=== PATIENT | female | born 1975 | race Caucasian/White ===

== ENCOUNTER 2016-08-01 00:02 | Inpatient (IN) | payer SELFPAY ==
[~2016-08-01] VITALS: Ht 162.6 cm; Wt 66.3 kg
[2016-08-02] VITALS (9 sets, daily range): BP systolic 88–108; BP diastolic 46–69
[2016-08-02] MEDS: AMINO AC 3%/ELECTROLYTE/GLYCER 1,000 ML IV SCH ×2 (02:50→13:37)
[2016-08-02] MEDS: MORPHINE SULFATE 2 MG/ML DISP.SYRIN. IV PRN ×4 (03:31→11:59)
[2016-08-02 08:39] LABS: HEMATOCRIT 29.3 % (36.0-47.0); HEMOGLOBIN 9.9 g/dL (12.0-15.5); RED BLOOD COUNT 3.35 x10^6/uL (3.50-5.40); RED CELL DISTRIBUTION WIDTH 14.1 % (11.5-14.5); WHITE BLOOD COUNT 22.2 x10^3/uL (4.0-11.0)
[2016-08-02 08:57] LABS: ALBUMIN 1.8 g/dL (3.4-5.0); ALBUMIN/GLOBULIN RATIO 0.4 (1.0-1.7); CALCIUM 7.6 mg/dL (8.5-10.1); CREATININE 1.3 mg/dL (0.6-1.0); GFR 44.9; MAGNESIUM 2.5 mg/dL (1.8-2.4); TOTAL BILIRUBIN 0.9 mg/dL (0.2-1.0); TOTAL PROTEIN 6.2 g/dL (6.4-8.2)
[2016-08-02 09:00] LABS: POTASSIUM 2.6 mmol/L (3.5-5.1)
--- NOTE | 2016-08-02 09:07 | PDOC ---
Infectious Disease Note Vital Sign Vital Signs Vital Signs Date Time Temp Pulse Resp B/P Pulse Ox O2 Delivery O2 Flow Rate FiO2 08/02/16 08:00 Nasal Cannula 2.0 08/02/16 07:30 98.6 105 22 93/54 91 98.6 Labs Lab Laboratory Tests Test 08/02/16 08:20 White Blood Count 22.2x10^3/uL (4.0-11.0) Red Blood Count 3.35x10^6/uL (3.50-5.40) Hemoglobin 9.9g/dL (12.0-15.5) Hematocrit 29.3% (36.0-47.0) Mean Corpuscular Volume 88fL (79-100) Mean Corpuscular Hemoglobin 30pg (25-35) Mean Corpuscular Hemoglobin Concent 34g/dL (31-37) Red Cell Distribution Width 14.1% (11.5-14.5) Platelet Count 18x10^3/uL (140-400) Sodium Level 126mmol/L (136-145) Potassium Level 2.6mmol/L (3.5-5.1) Chloride Level 93mmol/L (98-107) Carbon Dioxide Level 24mmol/L (21-32) Anion Gap 9 (6-14) Blood Urea Nitrogen 59mg/dL (7-20) Creatinine 1.3mg/dL (0.6-1.0) Estimated GFR (Cockcroft-Gault) 44.9 BUN/Creatinine Ratio 45 (6-20) Glucose Level 122mg/dL (70-99) Calcium Level 7.6mg/dL (8.5-10.1) Magnesium Level 2.5mg/dL (1.8-2.4) Total Bilirubin 0.9mg/dL (0.2-1.0) Aspartate Amino Transf (AST/SGOT) 64U/L (15-37) Alanine Aminotransferase (ALT/SGPT) 46U/L (14-59) Alkaline Phosphatase 204U/L (46-116) Total Protein 6.2g/dL (6.4-8.2) Albumin 1.8g/dL (3.4-5.0) Albumin/Globulin Ratio 0.4 (1.0-1.7) Objective Assessment Rt sided endocarditis Plan Plan of Care pt seen, consult dictated, thanks MARSHA MORFIN MD Aug 02, 2016 09:07
[2016-08-02] MEDS ORDERED: NORMAL SALINE IV SCH (09:15)
[2016-08-02] MEDS ORDERED: DAPTOMYCIN IV SCH (09:15)
[2016-08-02] MEDS ORDERED: POTASSIUM CHLORIDE 20 MEQ TABLET.ER. PO ONE ×3 (09:45→17:15)
[2016-08-02] MEDS ORDERED: DAPTOMYCIN IV ONE (10:00)
[2016-08-02] MEDS ORDERED: NORMAL SALINE IV ONE (10:00)
[2016-08-02] MEDS: CEFEPIME HCL 1 GM in IV NORMAL SALINE 50ML 50 ML IV SCH ×2 (10:17→21:05)
[2016-08-02] MEDS: DAPTOMYCIN IV SCH (11:11)
[2016-08-02] MEDS: NORMAL SALINE IV SCH (11:11)
[2016-08-02] MEDS: MORPHINE SULFATE 10 MG/ML VIAL. IV PRN ×4 (13:37→21:29)
--- NOTE | 2016-08-02 16:45 | HP ---
ADMIT DATE: 08/02/2016 CHIEF COMPLAINT: Sepsis. HISTORY OF PRESENT ILLNESS: The patient is a 41-year-old woman who is a chronic IV drug abuser with Opana, who presented to the hospital on the urging of her family with feeling poorly, as she herself states she felt as if she was going to . She has severe pain in her chest with breathing and has abdominal pain. She relates she had diarrhea last week when she started feeling poorly. Her family is concerned that she is getting weaker and weaker, unable to walk in the past few days. The patient had subjective fever and chills for several days now. Unable to eat. Denies any nausea or vomiting. PAST MEDICAL HISTORY: Essentially, none. Has not seen physicians in years. FAMILY HISTORY: Noncontributory. SOCIAL HISTORY: She is . Smokes a pack a day. Denies any alcohol use. Positive for heroin as well as Opana. ALLERGIES: No known drug allergies. HOME MEDICATIONS: None. REVIEW OF SYSTEMS: Positive as per HPI. The patient has generalized malaise, myalgias, arthralgias. Denies any headaches or neurological issues. Denies any sore throat. Has respirophasic chest pain, severe throughout. Denies any palpitations. No nausea, vomiting. Does have diffuse abdominal pain. No dysuria. PHYSICAL EXAMINATION: VITAL SIGNS: From today show a blood pressure of 92/54, heart rate of 96, respiratory rate at 20. She is currently afebrile. GENERAL: This is a malnourished, ill-appearing, 41-year-old woman, awake, alert, in moderate distress. HEENT: Shows no scleral icterus. NECK: Supple. LUNGS: Actually, clear throughout. HEART: Tachycardic. ABDOMEN: Mildly distended, soft, tenderness to palpation throughout, mildly. EXTREMITIES: Show no edema. SKIN: Warm, soft and dry without any rash. LABORATORY DATA: Noted from [facility]: WBC of 20.4, hemoglobin 11.3, platelets of 19, 85% neutrophils. Toxic granulation present. Urine shows greater than 40 wbcs', nitrite negative. Chemistries with BUN and creatinine of 76 and 2.5. Electrolytes with sodium of 122, potassium 2.9, CO2 of 24. LFTs within normal. CK at 717 and lipase at 121. C-reactive protein at 194. Drug screen actually negative including opiates. RADIOGRAPHIC IMAGING: A CT of the abdomen and pelvis is significant for consolidation and ground-glass opacity in the posterior right lobe, multiple hard solid pulmonary nodules consistent with atypical pneumonia versus septic emboli. Abdomen actually had no significant finding, although hampered by lack of IV or p.o. contrast. ASSESSMENT AND PLAN: The patient is a 41-year-old IV drug abuser who presents with a picture of sepsis. A CT highly suspicious for septic emboli. We will obtain echocardiogram JOSE L. ID has been consulted. She has been started on broad-spectrum antibiotics. For hypotension, IV fluids will be administered. Electrolytes are being addressed as well with repletion of sodium and potassium. We will continue to monitor closely. Leukocytosis is consistent with infection, continue monitoring here as well. I suspect that her hemoglobin actually is lower at baseline and she appears hemoconcentrated currently. Worrisome is her thrombocytopenia, which is close to critical at currently 18. Continue to monitor. Suspect this is secondary to her infection. Currently, she has no signs of bleeding diathesis. We will monitor DIC screen as well. She does have significant chest pain, most likely related due to her pulmonary disease. With heroin and Opana abuse, suspect it will take significant amounts to get her comfortable. Nevertheless, this is indicated at the current time. We will try and wean JOSE L. Prophylaxis with heparin and/or Lovenox will be held secondary to the platelet count. She also has acute kidney injury, which I suspect is secondary to dehydration. We will monitor closely with IV hydration. JUANITO PRETTY MD DR: ELIZABETH/brian JOB#: [id number] / [id number] THERESA
--- NOTE | 2016-08-02 17:44 | CARD ---
APPROVED REPORT EXAM: Two-dimensional and M-mode echocardiogram with Doppler and color Doppler. Other Information Quality : GoodHR: 97bpm Rhythm : NSR INDICATION Endocarditis 2D DIMENSIONS RVDd3.2 (2.9-3.5cm)Left Atrium(2D)2.4 (1.6-4.0cm) IVSd0.7 (0.7-1.1cm)Aortic Root(2D)3.5 (2.0-3.7cm) LVDd4.8 (3.9-5.9cm)LVOT Diameter2.2 (1.8-2.4cm) PWd0.7 (0.7-1.1cm)LVDs3.4 (2.5-4.0cm) FS (%) 28.5 %SV58.0 ml LVEF(%)54.8 (>50%) Aortic Valve AoV Peak Andrew.140.5cm/sAoV VTI16.9cm AO Peak GR.7.9mmHgLVOT Peak Andrew.117.5cm/s AO Mean GR.4mmHgAVA (VMAX)3.13cm2 Mitral Valve MV E Mophktsp39.0cm/sMV DECEL [id number] MV A Vgjwuarc18.3cm/sE/A Ratio1.3 MV A [id number] Pulmonary Valve PV Peak Ikpivddo994.9cm/s Tricuspid Valve TR P. Rhcxptzp092wo/sTR Peak Gr.32mmHg Pulmonary Vein S1 Fafvfatv94.6cm/sD2 Bavcpieo53.1cm/s LEFT VENTRICLE The left ventricle is normal size. There is normal left ventricular wall thickness. The left ventricu lar systolic function is mildly decreased. The Ejection Fraction is estimated at 45%. There is mild g lobal hypokinesis of the left ventricle. The left ventricular diastolic function and filling is che l for age. RIGHT VENTRICLE The right ventricle is normal size. There is normal right ventricular wall thickness. The right ventr icular systolic function is normal. There is a mass suspected in the right ventricle. ATRIA The left atrium size is normal. The right atrium is borderline dilated. The interatrial septum is int act with no evidence for an atrial septal defect or patent foramen ovale as noted on 2-D or Doppler i maging. AORTIC VALVE The aortic valve is mildly thickened. The aortic valve is trileaflet. Doppler and Color Flow revealed no significant aortic regurgitation. There is no significant aortic valvular stenosis. MITRAL VALVE The mitral valve leaflets are thickened. There is no evidence of mitral valve prolapse or vegetation. There is no mitral valve stenosis. Doppler and Color Flow revealed trace mitral valve regurgitation. TRICUSPID VALVE Doppler and Color Flow revealed mild to moderate tricuspid regurgitation. The pulmonary artery systol ic pressure is estimated at 30-40 mmHg. There is a 3.0 X2.0 cm. mobile mass on the tricuspid valve w hich partially protrudes into the right ventricle. PULMONIC VALVE Doppler and Color Flow revealed trace pulmonic valvular regurgitation. There is no pulmonic valvular stenosis. GREAT VESSELS The aortic root is normal in size. The ascending aorta is normal in size. The pulmonary artery is nor mal. The IVC is normal in size and collapses >50% with inspiration. PERICARDIAL EFFUSION There is no evidence of significant pericardial effusion. Critical Notification Physician Notified Physician Name:Ann Critical Value: Yes <Conclusion> The left ventricle is normal size. The left ventricular systolic function is mildly decreased. The Ejection Fraction is estimated at 45%. There is mild global hypokinesis of the left ventricle. There is no significant aortic valvular stenosis. Doppler and Color Flow revealed no significant aortic regurgitation. Doppler and Color Flow revealed trace mitral valve regurgitation. There is a 3.0 X2.0 cm. mobile mass on the tricuspid valve which partially protrudes into the right ventricle. Doppler and Color Flow revealed mild to moderate tricuspid regurgitation. The pulmonary artery systolic pressure is estimated at 30-40 mmHg. Doppler and Color Flow revealed trace pulmonic valvular regurgitation.
[2016-08-02 21:10] LABS: HCO3 ABG 21 mmol/L (21-28); PCO2 ABG 30 mmHg (35-46); PH ABG 7.46 (7.35-7.45); PO2 ABG 64 mmHg (75-108); SAT O2 ABG 92 % (92-99)
[2016-08-02 21:13] LABS: FIO2 ABG 40
[2016-08-02] MEDS ORDERED: MORPHINE SULFATE 10 MG/ML VIAL. IV ONE (21:30)
[2016-08-03] VITALS (25 sets, daily range): BP systolic 90–126; BP diastolic 48–74
[2016-08-03] MEDS: AMINO AC 3%/ELECTROLYTE/GLYCER 1,000 ML IV SCH ×4 (01:36→23:33)
[2016-08-03] MEDS: ACETAMINOPHEN 650 MG SUPP.RECT. PR PRN ×3 (01:39→23:33)
[2016-08-03] MEDS: MORPHINE SULFATE 10 MG/ML VIAL. IV PRN ×5 (01:49→20:32)
--- NOTE | 2016-08-03 02:56 | CONS ---
DATE OF CONSULTATION: 08/02/2016 REQUESTING PHYSICIAN: Tito Franz DO. REASON FOR CONSULTATION: IV drug use and bilateral pulmonary infiltrate. HISTORY OF PRESENT ILLNESS: This is a 41-year-old female with no significant past medical history who was doing IV pain medication, synthetic morphine, who presented with a 3-day history of not feeling well, weakness, fever, body ache. Patient went to [place] and was transferred here. The patient had initial workup done there, which showed elevated WBC elevated creatinine, low platelets and CT scan of the chest, abdomen and pelvis showed multiple pulmonary nodules. Cultures have been taken. The patient is complaining of pain all over. No nausea, vomiting, diarrhea noted. Denies any headache, visual symptoms. PAST MEDICAL HISTORY: She says no other significant history. SOCIAL HISTORY: Positive for smoking. No alcohol use. The patient uses synthetic morphine IV since January. ALLERGIES: No known drug allergies. CURRENT MEDICATIONS: The patient has been given a dose of vancomycin at [place]. REVIEW OF SYSTEMS: As per HPI. All other systems reviewed are negative. PHYSICAL EXAMINATION: GENERAL: Alert, oriented female, not in any distress. VITAL SIGNS: Stable, afebrile. HEENT: NAD. NECK: Supple, no JVP, no lymphadenopathy. LUNGS: Clear. CARDIOVASCULAR: S1, S2 regular. ABDOMEN: Benign. EXTREMITIES: Mild pitting edema present. NEUROLOGIC: The patient is neurologically intact. SKIN: Multiple IV drug use areas present. There are no peripheral stigmata for endocarditis. LABORATORY DATA: White count is 22,000. BUN and creatinine here is pending, from 11 where they were high [address] scan of the chest, abdomen and pelvis showed multiple pulmonary nodules. IMPRESSION: 1. IV drug use. 2. Right-sided bacterial endocarditis suspected. 3. Multiple pulmonary nodules. 4. Renal insufficiency. 5. Severe thrombocytopenia. 6. Leukocytosis. RECOMMENDATIONS: Would use daptomycin and cefepime. Supportive care. Check the blood cultures and the patient will need NIDIA and will continue to follow. Thank you very much, Dr. Franz for giving me the opportunity to participate in this patient's care. MARSHA MORFIN MD DR: SCOTT/brian JOB#: [id number] / [id number]
[2016-08-03 05:48] LABS: BASO % 0 % (0-3); EOS % 0 % (0-3); HEMATOCRIT 29.3 % (36.0-47.0); HEMOGLOBIN 9.7 g/dL (12.0-15.5); LYMPH # 1.2 x10^3/uL (1.0-4.8); LYMPH % 6 % (24-48); MEAN CORPUSCULAR HEMOGLOBIN 29 pg (25-35); MEAN CORPUSCULAR HGB CONC 33 g/dL (31-37); MEAN CORPUSCULAR VOLUME 89 fL (79-100); MONO % 12 % (0-9); NEUT % 82 % (31-73); RED BLOOD COUNT 3.31 x10^6/uL (3.50-5.40); RED CELL DISTRIBUTION WIDTH 14.1 % (11.5-14.5); WHITE BLOOD COUNT 19.1 x10^3/uL (4.0-11.0)
[2016-08-03 05:50] LABS: PLATELET COUNT 18 x10^3/uL (140-400)
[2016-08-03 06:01] LABS: CREATININE 0.9 mg/dL (0.6-1.0); GFR 68.7; POTASSIUM 4.7 mmol/L (3.5-5.1)
--- NOTE | 2016-08-03 07:57 | PDOC ---
Provider Note Provider Note [id number] acute resp fail endocarditis septic emboli babcock cytopenia bipap abx bronchodilator see orders JUAN ADDISON MD Aug 03, 2016 07:57
[2016-08-03] MEDS ORDERED: PANTOPRAZOLE IV PUSH 40 MG VIAL. IVP ONE (08:00)
[2016-08-03] MEDS ORDERED: POTASSIUM CHLORIDE 10 MEQ TABLET.ER. PO SCH (08:00)
[2016-08-03] MEDS: BUDESONIDE 0.5 MG/2 ML NEBU. NEB SCH ×2 (08:00→20:14)
--- NOTE | 2016-08-03 09:09 | CONS ---
DATE OF CONSULTATION: 08/03/2016 I was asked to see this 41-year-old lady for acute respiratory failure. HISTORY OF PRESENT ILLNESS: The patient is on BiPAP and appears tachypneic, answers some of my questions. She has significant history of IV drug abuse. Recently she had been on synthetic morphine. She does smoke daily. She has had 3 days history of not feeling well and has had weakness, fever, body ache, went to [place] and was transferred here. CT of the chest, abdomen and pelvis done there which did show multiple pulmonary nodules. The patient appears tachypneic. She denies chest pain, has cough. She is on BiPAP. PAST MEDICAL HISTORY: IV drug abuse. SOCIAL HISTORY: Positive for smoking. The patient has been using IV synthetic morphine. ALLERGIES: No known drug allergies. MEDICATIONS: Currently she is on cefepime, IV fluids, morphine, daptomycin. FAMILY HISTORY: Positive for hypertension. REVIEW OF SYSTEMS: As mentioned as above. I have discussed the patient with RN other systems otherwise negative. PHYSICAL EXAMINATION: GENERAL: This is a chronically ill appearing lady. She appears tachypneic. VITAL SIGNS: Her O2 saturation on 40%. The BiPAP is 98%, respiratory rate 24, heart rate 91, blood pressure 98/65, temperature 98.4. HEENT: Normocephalic, atraumatic. Pupils equal, round, reactive to light. She has a full face BiPAP mask on. NECK: There is no JVD, lymphadenopathy or thyromegaly. CARDIOVASCULAR: Regular rate and rhythm, positive for murmur. PMI is not displaced. She appears tachypneic. LUNGS: Bibasilar crackles, end expiratory wheezing. ABDOMEN: Distended. Bowel sounds are diminished. EXTREMITIES: There is no edema. LYMPHATICS: There is no lymphadenopathy. SKIN: Multiple IV drug use areas present. NEUROLOGIC: She is confused. LABORATORY DATA: I reviewed the following lab data: CT of the chest reportedly showed bilateral pulmonary nodule. ABG: pH 7.46, pCO2 of 30, pO2 64 on 40% FIO2. Sodium 129, potassium 4.7, chloride 99, CO2 of 23. Glucose 122. BUN 42. Creatinine 0.9, AST 64, ALT 46, alkaline phosphatase 204. Albumin 1.8. WBC 19.1, hemoglobin 9.7, platelets 18, HIV is negative. Echocardiogram did show ejection fracture of 45%, trace mitral regurgitation, 3.2 cm mass on tricuspid valve, partially protrude in to the right ventricle, pulmonary artery systolic pressure of 30-40 IMPRESSION: 1. Acute hypoxemic respiratory failure, multifactorial in etiology. 2. Abnormal CT of the chest. 3. Bilateral pulmonary nodule, I suspect it is septic emboli. 4. Endocarditis. 5. Acute bronchospasm ? chronic obstructive pulmonary disease. 6. Leukocytosis. 7. Anemia. 8. Thrombocytopenia. 9. Hyponatremia. 10. Intravenous drug abuse. 11. Tobacco habituation. PLAN AND RECOMMENDATIONS: 1. Titrate FiO2 to keep O2 saturation 92%. 2. Continue BiPAP support until the patient is more stable, setting was reviewed. 3. Start bronchodilator. 4. Start Pulmicort. She may require systemic steroid. 5. Continue antibiotic. ID is on the case. 6. Cardiology is consulted. 7. Protonix for stress ulcer prophylaxis. I do recommend hematology consultation for pancytopenia, 8. No need for anticoagulation. 9. Obtain her CT from [facility]. 10. Chest x-ray. 11. Monitor respiratory status very closely in ICU. She may require intubation. 12. Elevate head of bed. 13. The findings and recommendations were discussed with the patient, RN and RT. Thank you very much for allowing me to participate in care of this very nice lady. JUAN ADDISON M.D. YAYA Pascual JOB#: [id number] / [id number] THERESA
--- NOTE | 2016-08-03 09:22 | PDOC ---
Infectious Disease Note Subjective Subjective Transferred to MICU for respiratory distress On BiPAP. FiO2 40% Fever Tmax 102.6 Denies SOA or chest pain ROS ROS limited Vital Sign Vital Signs Vital Signs Date Time Temp Pulse Resp B/P Pulse Ox O2 Delivery O2 Flow Rate FiO2 08/03/16 06:00 91 22 98/55 99 BiPAP/CPAP 08/03/16 04:00 98.4 98.4 08/02/16 21:45 15.0 Physical Exam PHYSICAL EXAM GENERAL: On BiPAP, calm HEENT: PERRL, normal conjunctivae NECK: Supple LUNGS: Clear, tachypneic HEART: S1S2, no murmur appreciated ABD: Distended, soft, NT : [place] EXT: BLE trace edema. PRODUCT ANALYST: Arouses easily to name, lethargic SKIN: No rash. multiple tattoos IV: ok Labs Lab Laboratory Tests Test 08/02/16 14:10 08/02/16 20:21 08/03/16 05:15 08/03/16 07:25 Potassium Level 3.0mmol/L (3.5-5.1) 4.7mmol/L (3.5-5.1) O2 Saturation 92% (92-99) Arterial Blood pH 7.46 (7.35-7.45) Arterial Blood pCO2 at Patient Temp 30mmHg (35-46) Arterial Blood pO2 at Patient Temp 64mmHg (75-108) Arterial Blood HCO3 21mmol/L (21-28) Arterial Blood Base Excess -2mmol/L (-3-3) FiO2 40 White Blood Count 19.1x10^3/uL (4.0-11.0) Red Blood Count 3.31x10^6/uL (3.50-5.40) Hemoglobin 9.7g/dL (12.0-15.5) Hematocrit 29.3% (36.0-47.0) Mean Corpuscular Volume 89fL (79-100) Mean Corpuscular Hemoglobin 29pg (25-35) Mean Corpuscular Hemoglobin Concent 33g/dL (31-37) Red Cell Distribution Width 14.1% (11.5-14.5) Platelet Count 18x10^3/uL (140-400) Neutrophils (%) (Auto) 82% (31-73) Lymphocytes (%) (Auto) 6% (24-48) Monocytes (%) (Auto) 12% (0-9) Eosinophils (%) (Auto) 0% (0-3) Basophils (%) (Auto) 0% (0-3) Neutrophils # (Auto) 15.6x10^3uL (1.8-7.7) Lymphocytes # (Auto) 1.2x10^3/uL (1.0-4.8) Monocytes # (Auto) 2.3x10^3/uL (0.0-1.1) Eosinophils # (Auto) 0.0x10^3/uL (0.0-0.7) Basophils # (Auto) 0.0x10^3/uL (0.0-0.2) Sodium Level 129mmol/L (136-145) Chloride Level 99mmol/L (98-107) Carbon Dioxide Level 23mmol/L (21-32) Anion Gap 7 (6-14) Blood Urea Nitrogen 42mg/dL (7-20) Creatinine 0.9mg/dL (0.6-1.0) Estimated GFR (Cockcroft-Gault) 68.7 Glucose Level 122mg/dL (70-99) Calcium Level 8.0mg/dL (8.5-10.1) Glucose (Fingerstick) 120mg/dL (70-99) TTE <Conclusion> The left ventricle is normal size. The left ventricular systolic function is mildly decreased. The Ejection Fraction is estimated at 45%. There is mild global hypokinesis of the left ventricle. There is no significant aortic valvular stenosis. Doppler and Color Flow revealed no significant aortic regurgitation. Doppler and Color Flow revealed trace mitral valve regurgitation. There is a 3.0 X2.0 cm. mobile mass on the tricuspid valve which partially protrudes into the right ventricle. Doppler and Color Flow revealed mild to moderate tricuspid regurgitation. The pulmonary artery systolic pressure is estimated at 30-40 mmHg. Doppler and Color Flow revealed trace pulmonic valvular regurgitation. Micro BC NGTD, 08/01 ([facility]-per micro) Objective Assessment IV drug use. Right-sided bacterial endocarditis. -TTE. 3.0 x 2.0cm mobile mass TV -BC NGTD, 08/01 ([facility]). Multiple pulmonary nodules Renal insufficiency. Severe thrombocytopenia. Leukocytosis. Fever. Hepatosplenomegaly on CT Plan Plan of Care Dapto and cefepime BC discussed with [facility] lab. copy requested F/u trivedi labs & cultures KUB Hepatitis panel May need NGT Attending Co-Sign Attending Co-Sign The patient was seen and interviewed as well as examined at the bedside. The chart was reviewed. The case was discussed. Agree with the plan of care. JAZMIN SOUSA APRN Aug 03, 2016 09:22 KAYLYNN SHAY MD Aug 03, 2016 11:45
[2016-08-03] MEDS: NORMAL SALINE IV SCH (09:43)
[2016-08-03] MEDS: DAPTOMYCIN IV SCH (09:43)
[2016-08-03] MEDS: CEFEPIME HCL 1 GM in IV NORMAL SALINE 50ML 50 ML IV SCH ×2 (10:04→21:24)
--- NOTE | 2016-08-03 10:11 | ACF ---
Admit Criteria Forms Admit Criteria Forms Admit Criteria Forms SEPSIS and OTHER FEBRILE ILLNESS, W/O FOCAL INFECTION Clinical Indications for Admission to Inpatient Care ( Place 'X' for any and all applicable criteria): Admission is indicated for ANY ONE of the following (1)(2)(3)(4): [ ] I. Bacteremia [ ]II. Suspected or identified specific infection requiring hospitalization (eg, meningitis, endocarditis) [ ]III. Hemodynamic instability [ ]IV. Altered mental status [ ]V. Failure or unavailability of outpatient antimicrobial treatment [ ]. Hypoxemia [ ]VII. Seizures [ ]VIII. High-risk febrile neutropenia [ ]IX. Need for parenteral antibiotic in patient who is likely to abuse vascular access device (eg, injection drug user) [A](7) [ ]X. Temperature greater than 104.9 degrees F (40.5 degrees C) (oral) [X]XI. Inpatient admission required rather than observation care because of ANY ONE of the following: [ ]1) Specific infection identified that is too severe for outpatient treatment or observation care trial [X]2) Metabolic disorder (eg, hypoglycemia, hyperglycemia, metabolic acidosis) that is severe or persistent [ ]3) Temperature greater than 103.1 degrees F (39.5 degrees C) ( oral) that is not responsive to observation care treatment [ ]4) IV fluid to replace significant ongoing (eg, for over 24 hours) losses (> 3 L/m2 per day) [ ]5) Supplemental oxygen or respiratory treatments for over 24 hours that is performable only in acute inpatient setting [ ]6) Parenteral nutrition regimen need that must be implemented on inpatient basis [ ]7) Strict or protective (eg, laminar flow) isolation [X]8) Other condition, treatment or monitoring requiring inpatient admission Extended stay beyond goal length of stay may be needed for(1)(3) [ ]a) Sepsis or septic shock(22) [ ]b) Positive blood cultures [ ]c) Insufficient oral intake [ ]d) High-risk febrile neutropenia(29)(30) [ ]e) Continued fever and clinical instability [ ]f) Clinically active comorbid illness (e.g,heart failure, renal failure , diabetes) The original [email or web address] content created by [employer] has been revised. The portions of the content which have been revised are identified through the use of italic text or in bold, and [facility] has neither reviewed nor approved the modified material. All other unmodified content is copyright [facility]. Please see references footnoted in the original [facility] edition 2016 BARAK VALIENTE Aug 03, 2016 10:11
[2016-08-03 10:24] LABS: HCO3 ABG 22 mmol/L (21-28); PCO2 ABG 36 mmHg (35-46); PH ABG 7.42 (7.35-7.45); PO2 ABG 89 mmHg (75-108); SAT O2 ABG 96 % (92-99)
[2016-08-03] MEDS ORDERED: NORMAL SALINE IV SCH (11:00)
[2016-08-03] MEDS ORDERED: DAPTOMYCIN IV SCH (11:00)
[2016-08-03 11:03] LABS: FIO2 ABG 35
--- NOTE | 2016-08-03 11:06 | PDOC ---
PROGRESS NOTES Chief Complaint Chief Complaint Sepsis ASSESSMENT AND PLAN: 1. Sepsis/endocarditis: initial blood cultures NGTD, but tricuspid valve vegetation on echo. on empiric Abx as per ID service 2. Pneumonia: septic emboli bilat, with worsening oxygenation O/N, prompting transfer to ICU, on BiPAP. tenuous but stabilizing. wean as chela 3. Hyponatremia: cont repletion w/IVF 4. Leukocytosis: 2/2 infect. monitor 5. Thrombocytopenia: critical, no signs of bleed. monitor, transfuse for plts <10 6. Prophylaxis: hold anticoag with low plts CC: 30 min Vitals Vitals Vital Signs Date Time Temp Pulse Resp B/P Pulse Ox O2 Delivery O2 Flow Rate FiO2 08/03/16 09:45 37 100 BiPAP/CPAP 40.0 08/03/16 09:00 96 105/62 08/03/16 08:00 98.9 98.9 Physical Exam General: Alert, Cooperative, mild distress (fighting bipap) Heart: Other (tachy) Abdomen: Normal bowel sounds, No tenderness Extremities: No edema Skin: No rashes Labs LABS Laboratory Tests Test 08/02/16 14:10 08/02/16 20:21 08/03/16 05:15 08/03/16 07:25 Potassium Level 3.0mmol/L (3.5-5.1) 4.7mmol/L (3.5-5.1) O2 Saturation 92% (92-99) Arterial Blood pH 7.46 (7.35-7.45) Arterial Blood pCO2 at Patient Temp 30mmHg (35-46) Arterial Blood pO2 at Patient Temp 64mmHg (75-108) Arterial Blood HCO3 21mmol/L (21-28) Arterial Blood Base Excess -2mmol/L (-3-3) FiO2 40 White Blood Count 19.1x10^3/uL (4.0-11.0) Red Blood Count 3.31x10^6/uL (3.50-5.40) Hemoglobin 9.7g/dL (12.0-15.5) Hematocrit 29.3% (36.0-47.0) Mean Corpuscular Volume 89fL (79-100) Mean Corpuscular Hemoglobin 29pg (25-35) Mean Corpuscular Hemoglobin Concent 33g/dL (31-37) Red Cell Distribution Width 14.1% (11.5-14.5) Platelet Count 18x10^3/uL (140-400) Neutrophils (%) (Auto) 82% (31-73) Lymphocytes (%) (Auto) 6% (24-48) Monocytes (%) (Auto) 12% (0-9) Eosinophils (%) (Auto) 0% (0-3) Basophils (%) (Auto) 0% (0-3) Neutrophils # (Auto) 15.6x10^3uL (1.8-7.7) Lymphocytes # (Auto) 1.2x10^3/uL (1.0-4.8) Monocytes # (Auto) 2.3x10^3/uL (0.0-1.1) Eosinophils # (Auto) 0.0x10^3/uL (0.0-0.7) Basophils # (Auto) 0.0x10^3/uL (0.0-0.2) Sodium Level 129mmol/L (136-145) Chloride Level 99mmol/L (98-107) Carbon Dioxide Level 23mmol/L (21-32) Anion Gap 7 (6-14) Blood Urea Nitrogen 42mg/dL (7-20) Creatinine 0.9mg/dL (0.6-1.0) Estimated GFR (Cockcroft-Gault) 68.7 Glucose Level 122mg/dL (70-99) Calcium Level 8.0mg/dL (8.5-10.1) Glucose (Fingerstick) 120mg/dL (70-99) Review of Systems Review of Systems feels better, but has difficulty with BiPAP Comment Review of Relevant I have reviewed the following items shanta (where applicable) has been applied. Labs Laboratory Tests Test 08/02/16 08:20 08/02/16 14:10 08/02/16 20:21 08/03/16 05:15 White Blood Count 22.2x10^3/uL (4.0-11.0) 19.1x10^3/uL (4.0-11.0) Red Blood Count 3.35x10^6/uL (3.50-5.40) 3.31x10^6/uL (3.50-5.40) Hemoglobin 9.9g/dL (12.0-15.5) 9.7g/dL (12.0-15.5) Hematocrit 29.3% (36.0-47.0) 29.3% (36.0-47.0) Mean Corpuscular Volume 88fL (79-100) 89fL (79-100) Mean Corpuscular Hemoglobin 30pg (25-35) 29pg (25-35) Mean Corpuscular Hemoglobin Concent 34g/dL (31-37) 33g/dL (31-37) Red Cell Distribution Width 14.1% (11.5-14.5) 14.1% (11.5-14.5) Platelet Count 18x10^3/uL (140-400) 18x10^3/uL (140-400) Sodium Level 126mmol/L (136-145) 129mmol/L (136-145) Potassium Level 2.6mmol/L (3.5-5.1) 3.0mmol/L (3.5-5.1) 4.7mmol/L (3.5-5.1) Chloride Level 93mmol/L (98-107) 99mmol/L (98-107) Carbon Dioxide Level 24mmol/L (21-32) 23mmol/L (21-32) Anion Gap 9 (6-14) 7 (6-14) Blood Urea Nitrogen 59mg/dL (7-20) 42mg/dL (7-20) Creatinine 1.3mg/dL (0.6-1.0) 0.9mg/dL (0.6-1.0) Estimated GFR (Cockcroft-Gault) 44.9 68.7 BUN/Creatinine Ratio 45 (6-20) Glucose Level 122mg/dL (70-99) 122mg/dL (70-99) Calcium Level 7.6mg/dL (8.5-10.1) 8.0mg/dL (8.5-10.1) Magnesium Level 2.5mg/dL (1.8-2.4) Total Bilirubin 0.9mg/dL (0.2-1.0) Aspartate Amino Transf (AST/SGOT) 64U/L (15-37) Alanine Aminotransferase (ALT/SGPT) 46U/L (14-59) Alkaline Phosphatase 204U/L (46-116) Total Protein 6.2g/dL (6.4-8.2) Albumin 1.8g/dL (3.4-5.0) Albumin/Globulin Ratio 0.4 (1.0-1.7) HIV-1 Antibody Non reactive (Non Reactive) O2 Saturation 92% (92-99) Arterial Blood pH 7.46 (7.35-7.45) Arterial Blood pCO2 at Patient Temp 30mmHg (35-46) Arterial Blood pO2 at Patient Temp 64mmHg (75-108) Arterial Blood HCO3 21mmol/L (21-28) Arterial Blood Base Excess -2mmol/L (-3-3) FiO2 40 Neutrophils (%) (Auto) 82% (31-73) Lymphocytes (%) (Auto) 6% (24-48) Monocytes (%) (Auto) 12% (0-9) Eosinophils (%) (Auto) 0% (0-3) Basophils (%) (Auto) 0% (0-3) Neutrophils # (Auto) 15.6x10^3uL (1.8-7.7) Lymphocytes # (Auto) 1.2x10^3/uL (1.0-4.8) Monocytes # (Auto) 2.3x10^3/uL (0.0-1.1) Eosinophils # (Auto) 0.0x10^3/uL (0.0-0.7) Basophils # (Auto) 0.0x10^3/uL (0.0-0.2) Test 08/03/16 07:25 Glucose (Fingerstick) 120mg/dL (70-99) Laboratory Tests Test 08/02/16 14:10 08/02/16 20:21 08/03/16 05:15 08/03/16 07:25 Potassium Level 3.0mmol/L (3.5-5.1) 4.7mmol/L (3.5-5.1) O2 Saturation 92% (92-99) Arterial Blood pH 7.46 (7.35-7.45) Arterial Blood pCO2 at Patient Temp 30mmHg (35-46) Arterial Blood pO2 at Patient Temp 64mmHg (75-108) Arterial Blood HCO3 21mmol/L (21-28) Arterial Blood Base Excess -2mmol/L (-3-3) FiO2 40 White Blood Count 19.1x10^3/uL (4.0-11.0) Red Blood Count 3.31x10^6/uL (3.50-5.40) Hemoglobin 9.7g/dL (12.0-15.5) Hematocrit 29.3% (36.0-47.0) Mean Corpuscular Volume 89fL (79-100) Mean Corpuscular Hemoglobin 29pg (25-35) Mean Corpuscular Hemoglobin Concent 33g/dL (31-37) Red Cell Distribution Width 14.1% (11.5-14.5) Platelet Count 18x10^3/uL (140-400) Neutrophils (%) (Auto) 82% (31-73) Lymphocytes (%) (Auto) 6% (24-48) Monocytes (%) (Auto) 12% (0-9) Eosinophils (%) (Auto) 0% (0-3) Basophils (%) (Auto) 0% (0-3) Neutrophils # (Auto) 15.6x10^3uL (1.8-7.7) Lymphocytes # (Auto) 1.2x10^3/uL (1.0-4.8) Monocytes # (Auto) 2.3x10^3/uL (0.0-1.1) Eosinophils # (Auto) 0.0x10^3/uL (0.0-0.7) Basophils # (Auto) 0.0x10^3/uL (0.0-0.2) Sodium Level 129mmol/L (136-145) Chloride Level 99mmol/L (98-107) Carbon Dioxide Level 23mmol/L (21-32) Anion Gap 7 (6-14) Blood Urea Nitrogen 42mg/dL (7-20) Creatinine 0.9mg/dL (0.6-1.0) Estimated GFR (Cockcroft-Gault) 68.7 Glucose Level 122mg/dL (70-99) Calcium Level 8.0mg/dL (8.5-10.1) Glucose (Fingerstick) 120mg/dL (70-99) Medications Current Medications Amino Acids/ Glycerin/ Electrolytes (Procalamine) 1,000 ml @ 100 mls/hr Q10H IV Last administered on 08/03/16 01:36; Start 08/02/16 at 03:00 Morphine Sulfate 2 mg 2 mg PRN Q2HR PRN IV SEVERE PAIN Last administered on 11:59; Start 08/02/16 at 02:30; Stop 08/02/16 at 13:28; Status DC Daptomycin 220 mg/ Sodium Chloride 50 ml @ 100 mls/hr Q24H IV ; Start 08/02/16 at 09:15; Stop 08/02/16 at 15:58; Status DC Cefepime HCl 1 gm/ Sodium Chloride 50 ml @ 100 mls/hr Q12HR IV Last administered on 08/03/16 10:04; Start 08/02/16 at 10:00 Daptomycin/Sodium Chloride (Cubicin/Iv Sodium Chloride 0.9% 50ml) 50 ml @ 100 mls/hr ONCE ONCE IV ; Start 08/02/16 at 10:00; Stop 08/02/16 at 10:29; Status Cancel Potassium Chloride 40 meq 40 meq 1X ONCE PO Last administered on 08/02/16 10: 17; Start 08/02/16 at 09:45; Stop 08/02/16 at 09:46; Status DC Daptomycin/Sodium Chloride (Cubicin/Iv Sodium Chloride 0.9% 50ml) 50 ml @ 100 mls/hr Q24H IV Last administered on 08/03/16 09:43; Start 08/02/16 at 10:15; Stop 08/03/16 at 10:29; Status DC Potassium Chloride (Klor-Con) 40 meq 1X ONCE PO Last administered on 12:57; Start 08/02/16 at 12:30; Stop 08/02/16 at 12:36; Status DC Morphine Sulfate 5 mg PRN Q2HRS PRN IV MODERATE TO SEVERE PAIN Last administered on 08/03/16 09:45; Start 08/02/16 at 13:30 Morphine Sulfate 8 mg PRN Q2HRS PRN IV MODERATE TO SEVERE PAIN; Start 08/02/16 at 13:30 Acetaminophen 650 mg 650 mg PRN Q6HRS PRN PO TEMP GREATER THAN 100.4; Start at 14:45 Lactated Ringer's 1,000 ml @ 50 mls/hr Q20H IV ; Start 08/05/16 at 07:00; Stop 08/05/16 at 18:59 Daptomycin/Sodium Chloride (Cubicin/Iv Sodium Chloride 0.9% 50ml) 50 ml @ 100 mls/hr Q24H IV ; Start 08/03/16 at 11:00; Status Cancel Potassium Chloride (Klor-Con) 40 meq 1X ONCE PO Last administered on 17:41; Start 08/02/16 at 17:15; Stop 08/02/16 at 17:18; Status DC Potassium Chloride (Klor-Con) 40 meq BIDWMEALS PO ; Start 08/03/16 at 08:00 Morphine Sulfate 5 mg 1X ONCE IV Last administered on 08/02/16 21:45; Start 08/02/16 at 21:30; Stop 08/02/16 at 21:33; Status DC Lorazepam (Ativan) 1 mg 1X ONCE IV Last administered on 08/02/16 21:30; Start 08/02/16 at 21:30; Stop 08/02/16 at 21:33; Status DC Acetaminophen (Acetaminophen Supp) 650 mg PRN Q6HRS PRN UT MILD PAIN / TEMP Last administered on 08/03/16 01:39; Start 08/03/16 at 01:15 Albuterol/ Ipratropium (Duoneb) 3 ml RTQID NEB ; Start 08/03/16 at 08:00 Budesonide (Pulmicort) 0.5 mg RTBID NEB ; Start 08/03/16 at 08:00 Pantoprazole Sodium 40 mg 40 mg 1X ONCE IVP Last administered on 08/03/16 10: 06; Start 08/03/16 at 08:00; Stop 08/03/16 at 08:01; Status DC Daptomycin/Sodium Chloride (Cubicin/Iv Sodium Chloride 0.9% 50ml) 50 ml @ 100 mls/hr Q24H IV ; Start 08/04/16 at 10:00 Vitals/I & O Vital Sign - Last 24 Hours 08/02/16 08/02/16 08/02/16 08/02/16 11:59 12:29 13:37 14:22 Temp 99.4 99.4 Pulse 107 Resp 21 B/P 94/53 Pulse Ox 91 91 91 92 O2 Delivery Nasal Cannula Nasal Cannula Nasal Cannula Nasal Cannula O2 Flow Rate 2.0 2.0 2.0 2.0 08/02/16 08/02/16 08/02/16 08/02/16 15:55 18:34 19:00 19:05 Temp 98.1 98.1 Pulse 116 Resp 28 B/P 108/69 Pulse Ox 92 92 78 92 O2 Delivery Nasal Cannula Nasal Cannula Nasal Cannula O2 Flow Rate 2.0 2.0 2.0 15.0 08/02/16 08/02/16 08/02/16 08/02/16 19:30 20:00 21:29 21:45 Resp 18 20 Pulse Ox 94 94 94 O2 Delivery Venturi Mask Nasal Cannula BiPAP/CPAP BiPAP/CPAP O2 Flow Rate 15.0 2.0 15.0 15.0 08/02/16 08/02/16 08/02/16 08/03/16 22:00 22:04 23:00 00:00 Temp 99.3 99.3 Pulse 118 Resp 34 B/P 104/68 Pulse Ox 98 98 97 O2 Delivery BiPAP/CPAP BiPAP/CPAP BiPAP/CPAP Bi-pap 08/03/16 08/03/16 08/03/16 08/03/16 00:55 01:15 01:30 01:49 Temp 102.2 101.4 101.8 102.2 101.4 101.8 Pulse 118 125 121 Resp 33 42 35 34 B/P 102/57 103/58 114/63 Pulse Ox 96 96 96 97 O2 Delivery BiPAP/CPAP BiPAP/CPAP BiPAP/CPAP BiPAP/CPAP 08/03/16 08/03/16 08/03/16 08/03/16 02:04 02:15 03:00 03:50 Temp 102.6 100.4 102.6 100.4 Pulse 117 110 Resp 32 29 25 B/P 101/58 90/48 Pulse Ox 98 98 98 O2 Delivery BiPAP/CPAP BiPAP/CPAP BiPAP/CPAP BiPAP/CPAP 08/03/16 08/03/16 08/03/16 08/03/16 04:00 04:00 04:54 06:00 Temp 98.4 98.4 Pulse 102 96 91 Resp 16 20 22 B/P 93/55 93/52 98/55 Pulse Ox 98 98 99 O2 Delivery BiPAP/CPAP Bi-pap BiPAP/CPAP BiPAP/CPAP 08/03/16 08/03/16 08/03/16 08/03/16 07:00 08:00 08:25 09:00 Temp 98.9 98.9 Pulse 90 92 96 Resp 22 24 34 B/P 101/59 104/59 105/62 Pulse Ox 97 100 98 100 O2 Delivery BiPAP/CPAP BiPAP/CPAP BiPAP/CPAP BiPAP/CPAP 08/03/16 09:45 Resp 37 Pulse Ox 100 O2 Delivery BiPAP/CPAP O2 Flow Rate 40.0 Intake and Output 08/02/16 08/02/16 08/03/16 15:00 23:00 07:00 Intake Total 120 ml 450 ml 1300 ml Output Total 950 ml 600 ml 400 ml Balance -830 ml -150 ml 900 ml Nutrition Consultation Dietary Evaluation: Recommendations by RD: Increase Calorie Intake, Protein supplementation, PPN/ TPN Comments: Continue the PPN at 80 ml/hr until intake consistently > 50% of meals-this provides 470 calories (30% estimated calorie needs) and 55 grams protein (100% estimated protein needs) Rec. add strawberry flavored boost plus BID Encourage good PO intake Provided alternate menu to update food preferences Expected Outcomes/Goals: meet 75% estimated nutrition needs no further wt loss Interpretation of weight loss: >7.5% in 3 months Malnutrition Findings: Food and Nutrition Intake (Mod: <75% est energy req 7days Body Fat Depletion (Non Severe: Mild Depletion Reduced Legal Administrative Secretary Strength: N/A Reduced Legal Administrative Secretary Strength (Non-Sev: N/A Malnutrition related to morbid: No Weight Status: Appropriate Fluid Accumulation (N/A): N/A JUANITO PRETTY MD Aug 03, 2016 11:06
[2016-08-03 11:34] LABS: ANISOCYTOSIS SLIGHT; PLT ESTIMATE DECREASED (ADEQUATE); TOXIC GRANULATION SLIGHT
[2016-08-03] MEDS: IPRATRPIUM/ALBUTEROL 0.5/2.5MG 3 ML NEBU. NEB SCH ×3 (11:47→20:14)
--- NOTE | 2016-08-03 12:21 | RAD ---
KUB Clinical Indication: distension Comparison: None. Technique: Portable supine KUB images obtained. Findings: There is diffuse gaseous distention of the colon, with the hepatic flexure measuring up to 8 cm in diameter. Gaseous distended bowel loops are seen also centrally within the abdomen, with distended small bowel loops not excluded. Evaluation for obstruction is limited given lack of an upright exam. Visualized osseous structures and surrounding soft tissues demonstrate no acute finding. IMPRESSION: Gaseous distended bowel loops, which appear mostly colonic. Evaluation for obstruction is limited given lack of an upright exam.
--- NOTE | 2016-08-03 15:03 | RAD ---
KUB Clinical Indication: NG placement 108 Comparison: Earlier on the same day. Technique: Single portable supine KUB image is obtained, with technique and positioning optimize for tube placement. Findings: There has been interval placement of an NG tube, with the distal portion looped within the gastric fundus with distal tip in the expected proximal to mid body. Gaseous distended bowel loops are again seen, similar to the previous exam. Visualized lung bases demonstrate interstitial opacities, possibly edema or infiltrate. IMPRESSION: Distal tip of the NG tube overlies the mid body of the stomach.
[2016-08-04] VITALS (23 sets, daily range): BP systolic 93–133; BP diastolic 47–75
[2016-08-04] MEDS: MORPHINE SULFATE 10 MG/ML VIAL. IV PRN ×6 (00:02→14:58)
--- NOTE | 2016-08-04 05:12 | PDOC ---
PULMONARY PROGRESS NOTES Subjective off bipap, still tachypneac, confused, ng in, on 02, has pain all over, has sob , cough, nasal congestion Vitals Vital Signs Date Time Temp Pulse Resp B/P Pulse Ox O2 Delivery O2 Flow Rate FiO2 08/04/16 00:00 101.4 112 34 131/68 95 Nasal Cannula 4.0 101.4 Comments ros as mentioned as above other sys otherwise neg General: Confused HEENT: Other (nc at perrl, throat clear, nose inflamed mucosa.....neck, no lap , thyromegaly) Lungs: Wheezing, Crackles Cardiovascular: Other (tacgy) Abdomen: Soft, Non-tender, Other (hepatomegaly) Extremities: Other (edema) Skin: Warm Labs Laboratory Tests Test 08/02/16 08:20 08/02/16 14:10 08/02/16 20:21 08/03/16 01:00 White Blood Count 22.2x10^3/uL (4.0-11.0) Red Blood Count 3.35x10^6/uL (3.50-5.40) Hemoglobin 9.9g/dL (12.0-15.5) Hematocrit 29.3% (36.0-47.0) Mean Corpuscular Volume 88fL (79-100) Mean Corpuscular Hemoglobin 30pg (25-35) Mean Corpuscular Hemoglobin Concent 34g/dL (31-37) Red Cell Distribution Width 14.1% (11.5-14.5) Platelet Count 18x10^3/uL (140-400) Sodium Level 126mmol/L (136-145) Potassium Level 2.6mmol/L (3.5-5.1) 3.0mmol/L (3.5-5.1) Chloride Level 93mmol/L (98-107) Carbon Dioxide Level 24mmol/L (21-32) Anion Gap 9 (6-14) Blood Urea Nitrogen 59mg/dL (7-20) Creatinine 1.3mg/dL (0.6-1.0) Estimated GFR (Cockcroft-Gault) 44.9 BUN/Creatinine Ratio 45 (6-20) Glucose Level 122mg/dL (70-99) Calcium Level 7.6mg/dL (8.5-10.1) Magnesium Level 2.5mg/dL (1.8-2.4) Total Bilirubin 0.9mg/dL (0.2-1.0) Aspartate Amino Transf (AST/SGOT) 64U/L (15-37) Alanine Aminotransferase (ALT/SGPT) 46U/L (14-59) Alkaline Phosphatase 204U/L (46-116) Total Protein 6.2g/dL (6.4-8.2) Albumin 1.8g/dL (3.4-5.0) Albumin/Globulin Ratio 0.4 (1.0-1.7) HIV-1 Antibody Non reactive (Non Reactive) O2 Saturation 92% (92-99) Arterial Blood pH 7.46 (7.35-7.45) Arterial Blood pCO2 at Patient Temp 30mmHg (35-46) Arterial Blood pO2 at Patient Temp 64mmHg (75-108) Arterial Blood HCO3 21mmol/L (21-28) Arterial Blood Base Excess -2mmol/L (-3-3) FiO2 40 Nasal Screen MRSA (PCR) Negative (Negative) Test 08/03/16 05:15 08/03/16 07:25 08/03/16 08:00 White Blood Count 19.1x10^3/uL (4.0-11.0) Red Blood Count 3.31x10^6/uL (3.50-5.40) Hemoglobin 9.7g/dL (12.0-15.5) Hematocrit 29.3% (36.0-47.0) Mean Corpuscular Volume 89fL (79-100) Mean Corpuscular Hemoglobin 29pg (25-35) Mean Corpuscular Hemoglobin Concent 33g/dL (31-37) Red Cell Distribution Width 14.1% (11.5-14.5) Platelet Count 18x10^3/uL (140-400) Neutrophils (%) (Auto) 82% (31-73) Lymphocytes (%) (Auto) 6% (24-48) Monocytes (%) (Auto) 12% (0-9) Eosinophils (%) (Auto) 0% (0-3) Basophils (%) (Auto) 0% (0-3) Neutrophils # (Auto) 15.6x10^3uL (1.8-7.7) Lymphocytes # (Auto) 1.2x10^3/uL (1.0-4.8) Monocytes # (Auto) 2.3x10^3/uL (0.0-1.1) Eosinophils # (Auto) 0.0x10^3/uL (0.0-0.7) Basophils # (Auto) 0.0x10^3/uL (0.0-0.2) Segmented Neutrophils % 76% (35-66) Band Neutrophils % 15% (0-9) Lymphocytes % 3% (24-48) Monocytes % 6% (0-10) Toxic Granulation Slight Platelet Estimate Decreased (ADEQUATE) Large Platelets Present Anisocytosis Slight Sodium Level 129mmol/L (136-145) Potassium Level 4.7mmol/L (3.5-5.1) Chloride Level 99mmol/L (98-107) Carbon Dioxide Level 23mmol/L (21-32) Anion Gap 7 (6-14) Blood Urea Nitrogen 42mg/dL (7-20) Creatinine 0.9mg/dL (0.6-1.0) Estimated GFR (Cockcroft-Gault) 68.7 Glucose Level 122mg/dL (70-99) Calcium Level 8.0mg/dL (8.5-10.1) Glucose (Fingerstick) 120mg/dL (70-99) O2 Saturation 96% (92-99) Arterial Blood pH 7.42 (7.35-7.45) Arterial Blood pCO2 at Patient Temp 36mmHg (35-46) Arterial Blood pO2 at Patient Temp 89mmHg (75-108) Arterial Blood HCO3 22mmol/L (21-28) Arterial Blood Base Excess -2mmol/L (-3-3) FiO2 35 Laboratory Tests Test 08/03/16 05:15 08/03/16 07:25 08/03/16 08:00 White Blood Count 19.1x10^3/uL (4.0-11.0) Red Blood Count 3.31x10^6/uL (3.50-5.40) Hemoglobin 9.7g/dL (12.0-15.5) Hematocrit 29.3% (36.0-47.0) Mean Corpuscular Volume 89fL (79-100) Mean Corpuscular Hemoglobin 29pg (25-35) Mean Corpuscular Hemoglobin Concent 33g/dL (31-37) Red Cell Distribution Width 14.1% (11.5-14.5) Platelet Count 18x10^3/uL (140-400) Neutrophils (%) (Auto) 82% (31-73) Lymphocytes (%) (Auto) 6% (24-48) Monocytes (%) (Auto) 12% (0-9) Eosinophils (%) (Auto) 0% (0-3) Basophils (%) (Auto) 0% (0-3) Neutrophils # (Auto) 15.6x10^3uL (1.8-7.7) Lymphocytes # (Auto) 1.2x10^3/uL (1.0-4.8) Monocytes # (Auto) 2.3x10^3/uL (0.0-1.1) Eosinophils # (Auto) 0.0x10^3/uL (0.0-0.7) Basophils # (Auto) 0.0x10^3/uL (0.0-0.2) Segmented Neutrophils % 76% (35-66) Band Neutrophils % 15% (0-9) Lymphocytes % 3% (24-48) Monocytes % 6% (0-10) Toxic Granulation Slight Platelet Estimate Decreased (ADEQUATE) Large Platelets Present Anisocytosis Slight Sodium Level 129mmol/L (136-145) Potassium Level 4.7mmol/L (3.5-5.1) Chloride Level 99mmol/L (98-107) Carbon Dioxide Level 23mmol/L (21-32) Anion Gap 7 (6-14) Blood Urea Nitrogen 42mg/dL (7-20) Creatinine 0.9mg/dL (0.6-1.0) Estimated GFR (Cockcroft-Gault) 68.7 Glucose Level 122mg/dL (70-99) Calcium Level 8.0mg/dL (8.5-10.1) Glucose (Fingerstick) 120mg/dL (70-99) O2 Saturation 96% (92-99) Arterial Blood pH 7.42 (7.35-7.45) Arterial Blood pCO2 at Patient Temp 36mmHg (35-46) Arterial Blood pO2 at Patient Temp 89mmHg (75-108) Arterial Blood HCO3 22mmol/L (21-28) Arterial Blood Base Excess -2mmol/L (-3-3) FiO2 35 Comments cxr reviewed, b lat patchy nodular infilt Impression . IMPRESSION: 1. Acute hypoxemic respiratory failure, multifactorial in etiology. 2. Abnormal CT of the chest. 3. Bilateral pulmonary nodules, I suspect it is septic emboli. 4. Endocarditis. 5. Acute bronchospasm ? chronic obstructive pulmonary disease. 6. Leukocytosis. 7. Anemia. 8. Thrombocytopenia. 9. Hyponatremia. 10. Intravenous drug abuse. 11. Tobacco habituation. 12. mssa septicemia Plan . PLAN AND RECOMMENDATIONS: 1. Titrate FiO2 to keep O2 saturation 92%. 2. Continue BiPAP support prn, setting was reviewed. 3. bronchodilator. 4. Pulmicort. She may require systemic steroid. 5. Continue antibiotic, changed to nafcillin. ID is on the case. 6. Cardiology is consulted. will have len. 7. Protonix for stress ulcer prophylaxis. I do recommend hematology consultation for pancytopenia, 8. No need for anticoagulation. 9. Obtain her CT from [facility]. 10. Chest x-ray reviewed 11. Monitor respiratory status very closely in ICU. She may require intubation. 12. Elevate head of bed. 13. The findings and recommendations were discussed with the RN and RT. JUAN ADDISON MD Aug 04, 2016 05:12
[2016-08-04 05:53] LABS: BASO # 0.1 x10^3/uL (0.0-0.2); BASO % 1 % (0-3); EOS % 1 % (0-3); HEMATOCRIT 27.1 % (36.0-47.0); HEMOGLOBIN 8.9 g/dL (12.0-15.5); LYMPH # 3.1 x10^3/uL (1.0-4.8); LYMPH % 16 % (24-48); MEAN CORPUSCULAR HEMOGLOBIN 29 pg (25-35); MEAN CORPUSCULAR HGB CONC 33 g/dL (31-37); MEAN CORPUSCULAR VOLUME 89 fL (79-100); MONO % 11 % (0-9); NEUT % 71 % (31-73); RED BLOOD COUNT 3.06 x10^6/uL (3.50-5.40); RED CELL DISTRIBUTION WIDTH 14.4 % (11.5-14.5); WHITE BLOOD COUNT 19.4 x10^3/uL (4.0-11.0)
[2016-08-04 06:20] LABS: ALBUMIN 1.4 g/dL (3.4-5.0); ALBUMIN/GLOBULIN RATIO 0.3 (1.0-1.7); CALCIUM 7.7 mg/dL (8.5-10.1); CREATININE 0.7 mg/dL (0.6-1.0); GFR 91.8; POTASSIUM 4.9 mmol/L (3.5-5.1); TOTAL PROTEIN 6.1 g/dL (6.4-8.2)
[2016-08-04 07:24] LABS: PLATELET COUNT 31 x10^3/uL (140-400)
[2016-08-04] MEDS: BUDESONIDE 0.5 MG/2 ML NEBU. NEB SCH ×2 (08:00→19:45)
[2016-08-04] MEDS: IPRATRPIUM/ALBUTEROL 0.5/2.5MG 3 ML NEBU. NEB SCH ×4 (08:00→19:45)
[2016-08-04] MEDS: CEFEPIME HCL 1 GM in IV NORMAL SALINE 50ML 50 ML IV SCH (08:10)
[2016-08-04 08:42] LABS: HCO3 ABG 22 mmol/L (21-28); PCO2 ABG 28 mmHg (35-46); PH ABG 7.51 (7.35-7.45); PO2 ABG 53 mmHg (75-108); SAT O2 ABG 88 % (92-99)
[2016-08-04 09:03] LABS: FIO2 ABG 32
[2016-08-04] MEDS: AMINO AC 3%/ELECTROLYTE/GLYCER 1,000 ML IV SCH ×2 (09:22→19:31)
--- NOTE | 2016-08-04 09:54 | PDOC ---
PROGRESS NOTES Chief Complaint Chief Complaint Sepsis ASSESSMENT AND PLAN: 1. Sepsis/endocarditis: initial blood cultures NGTD, but tricuspid valve vegetation on echo. on empiric cefepime and dapto 2. Pneumonia: septic emboli bilat, with worsening oxygenation, on BiPAP, may need intubation. close monitoring w/ABG 3. Hyponatremia: improving; cont repletion w/IVF 4. Leukocytosis: persisting unchanged. 2/2 infect, monitor 5. Thrombocytopenia: early signs of recovery. no signs of bleed. monitor, transfuse for plts <10 6. Prophylaxis: hold anticoag with low plts; start when plts recovered to >50 7. Abd distension: KUB yesterday with massive gas throughout. NGT in place. rpt KUB 8. Nutrition: PPN CC: 40 min Vitals Vitals Vital Signs Date Time Temp Pulse Resp B/P Pulse Ox O2 Delivery O2 Flow Rate FiO2 08/04/16 09:17 47 BiPAP/CPAP 40.0 08/04/16 09:16 97 08/04/16 07:00 101 109/66 08/04/16 04:00 98.4 98.4 Physical Exam General: Cooperative, mild distress (fighting bipap), Other (difficulties breathing with BiPAP rhythm) Heart: Other (tachy) Lungs: Crackles Abdomen: Normal bowel sounds, No tenderness Extremities: No edema Skin: No rashes Labs LABS Laboratory Tests Test 08/04/16 05:00 08/04/16 08:40 White Blood Count 19.4x10^3/uL (4.0-11.0) Red Blood Count 3.06x10^6/uL (3.50-5.40) Hemoglobin 8.9g/dL (12.0-15.5) Hematocrit 27.1% (36.0-47.0) Mean Corpuscular Volume 89fL (79-100) Mean Corpuscular Hemoglobin 29pg (25-35) Mean Corpuscular Hemoglobin Concent 33g/dL (31-37) Red Cell Distribution Width 14.4% (11.5-14.5) Platelet Count 31x10^3/uL (140-400) Neutrophils (%) (Auto) 71% (31-73) Lymphocytes (%) (Auto) 16% (24-48) Monocytes (%) (Auto) 11% (0-9) Eosinophils (%) (Auto) 1% (0-3) Basophils (%) (Auto) 1% (0-3) Neutrophils # (Auto) 13.8x10^3uL (1.8-7.7) Lymphocytes # (Auto) 3.1x10^3/uL (1.0-4.8) Monocytes # (Auto) 2.2x10^3/uL (0.0-1.1) Eosinophils # (Auto) 0.2x10^3/uL (0.0-0.7) Basophils # (Auto) 0.1x10^3/uL (0.0-0.2) Sodium Level 132mmol/L (136-145) Potassium Level 4.9mmol/L (3.5-5.1) Chloride Level 101mmol/L (98-107) Carbon Dioxide Level 25mmol/L (21-32) Anion Gap 6 (6-14) Blood Urea Nitrogen 32mg/dL (7-20) Creatinine 0.7mg/dL (0.6-1.0) Estimated GFR (Cockcroft-Gault) 91.8 BUN/Creatinine Ratio 46 (6-20) Glucose Level 107mg/dL (70-99) Calcium Level 7.7mg/dL (8.5-10.1) Total Bilirubin 1.0mg/dL (0.2-1.0) Aspartate Amino Transf (AST/SGOT) 32U/L (15-37) Alanine Aminotransferase (ALT/SGPT) 29U/L (14-59) Alkaline Phosphatase 160U/L (46-116) Total Protein 6.1g/dL (6.4-8.2) Albumin 1.4g/dL (3.4-5.0) Albumin/Globulin Ratio 0.3 (1.0-1.7) O2 Saturation 88% (92-99) Arterial Blood pH 7.51 (7.35-7.45) Arterial Blood pCO2 at Patient Temp 28mmHg (35-46) Arterial Blood pO2 at Patient Temp 53mmHg (75-108) Arterial Blood HCO3 22mmol/L (21-28) Arterial Blood Base Excess 0mmol/L (-3-3) FiO2 32 Review of Systems Review of Systems on BiPAP. not responding to verbal input Nutrition Consultation Dietary Evaluation: Recommendations by RD: Increase Calorie Intake, Protein supplementation, PPN/ TPN Comments: Continue the PPN at 80 ml/hr until intake consistently > 50% of meals-this provides 470 calories (30% estimated calorie needs) and 55 grams protein (100% estimated protein needs) Rec. add strawberry flavored boost plus BID Encourage good PO intake Provided alternate menu to update food preferences Expected Outcomes/Goals: meet 75% estimated nutrition needs no further wt loss Interpretation of weight loss: >7.5% in 3 months Malnutrition Findings: Food and Nutrition Intake (Mod: <75% est energy req 7days Body Fat Depletion (Non Severe: Mild Depletion Reduced Railroad Engineer Strength: N/A Reduced Railroad Engineer Strength (Non-Sev: N/A Malnutrition related to morbid: No Weight Status: Appropriate Fluid Accumulation (N/A): N/A JUANITO PRETTY MD Aug 04, 2016 09:54
--- NOTE | 2016-08-04 09:57 | RAD ---
CHEST AP ONLY Clinical Indication: Respiratory failure Comparison: None. Technique: Portable upright AP view of the chest is obtained. Findings: Patchy opacities are present throughout the lungs bilaterally. Trace left pleural fluid likely. No significant pleural effusion or pneumothorax is seen. Cardiomediastinal silhouette is within normal limits of size. Visualized osseous structures and overlying soft tissues demonstrate no acute finding. An NG tube is seen, with the distal tip overlying the left upper quadrant. IMPRESSION: Diffuse bilateral pulmonary opacities, may represent infiltrate among other etiologies.
[2016-08-04] MEDS ORDERED: MORPHINE SULFATE 10 MG/ML VIAL. IV ONE ×2 (10:00→16:45)
[2016-08-04] MEDS ORDERED: NORMAL SALINE IV SCH (10:00)
[2016-08-04] MEDS ORDERED: DAPTOMYCIN IV SCH (10:00)
--- NOTE | 2016-08-04 10:34 | PDOC ---
Infectious Disease Note Subjective Subjective On BiPAP. FiO2 40% Fever Tmax 101.4 ROS ROS Unobtainable Vital Sign Vital Signs Vital Signs Date Time Temp Pulse Resp B/P Pulse Ox O2 Delivery O2 Flow Rate FiO2 08/04/16 09:58 46 BiPAP/CPAP 40.0 08/04/16 09:16 97 08/04/16 07:00 101 109/66 08/04/16 04:00 98.4 98.4 Physical Exam PHYSICAL EXAM GENERAL: On BiPAP, calm min response HEENT: PERRL, normal conjunctivae NECK: Supple LUNGS: Clear, tachypneic HEART: S1S2, no murmur appreciated ABD: Less distended, soft, NT, NG : Shelby EXT: BLE trace edema. REGIONAL GUIDE: Arouses easily to name, lethargic SKIN: No rash. multiple tattoos IV: ok Labs Lab Laboratory Tests Test 08/04/16 05:00 08/04/16 08:40 White Blood Count 19.4x10^3/uL (4.0-11.0) Red Blood Count 3.06x10^6/uL (3.50-5.40) Hemoglobin 8.9g/dL (12.0-15.5) Hematocrit 27.1% (36.0-47.0) Mean Corpuscular Volume 89fL (79-100) Mean Corpuscular Hemoglobin 29pg (25-35) Mean Corpuscular Hemoglobin Concent 33g/dL (31-37) Red Cell Distribution Width 14.4% (11.5-14.5) Platelet Count 31x10^3/uL (140-400) Neutrophils (%) (Auto) 71% (31-73) Lymphocytes (%) (Auto) 16% (24-48) Monocytes (%) (Auto) 11% (0-9) Eosinophils (%) (Auto) 1% (0-3) Basophils (%) (Auto) 1% (0-3) Neutrophils # (Auto) 13.8x10^3uL (1.8-7.7) Lymphocytes # (Auto) 3.1x10^3/uL (1.0-4.8) Monocytes # (Auto) 2.2x10^3/uL (0.0-1.1) Eosinophils # (Auto) 0.2x10^3/uL (0.0-0.7) Basophils # (Auto) 0.1x10^3/uL (0.0-0.2) Sodium Level 132mmol/L (136-145) Potassium Level 4.9mmol/L (3.5-5.1) Chloride Level 101mmol/L (98-107) Carbon Dioxide Level 25mmol/L (21-32) Anion Gap 6 (6-14) Blood Urea Nitrogen 32mg/dL (7-20) Creatinine 0.7mg/dL (0.6-1.0) Estimated GFR (Cockcroft-Gault) 91.8 BUN/Creatinine Ratio 46 (6-20) Glucose Level 107mg/dL (70-99) Calcium Level 7.7mg/dL (8.5-10.1) Total Bilirubin 1.0mg/dL (0.2-1.0) Aspartate Amino Transf (AST/SGOT) 32U/L (15-37) Alanine Aminotransferase (ALT/SGPT) 29U/L (14-59) Alkaline Phosphatase 160U/L (46-116) Total Protein 6.1g/dL (6.4-8.2) Albumin 1.4g/dL (3.4-5.0) Albumin/Globulin Ratio 0.3 (1.0-1.7) O2 Saturation 88% (92-99) Arterial Blood pH 7.51 (7.35-7.45) Arterial Blood pCO2 at Patient Temp 28mmHg (35-46) Arterial Blood pO2 at Patient Temp 53mmHg (75-108) Arterial Blood HCO3 22mmol/L (21-28) Arterial Blood Base Excess 0mmol/L (-3-3) FiO2 32 Objective Assessment Acute Resp failure on Bipap ? developing ARDS Presumptive MSSA 08/01 sepsis - d/w micro this am IV drug use. Right-sided bacterial endocarditis. -TTE. 3.0 x 2.0cm mobile mass TV -BC NGTD, 08/01 ([facility]). Multiple pulmonary nodules Ileus Renal insufficiency. Severe thrombocytopenia. Leukocytosis. Fever. Hepatosplenomegaly on CT Plan Plan of Care D/c Dapto and cefepime Add Nafcillin BC discussed with [facility] lab. copy requested F/u trivedi labs & cultures F/u Hepatitis panel D/w KAYLYNN Bello MD Aug 04, 2016 10:33
[2016-08-04 11:18] LABS: HCO3 ABG 24 mmol/L (21-28); PCO2 ABG 33 mmHg (35-46); PH ABG 7.49 (7.35-7.45); PO2 ABG 70 mmHg (75-108); SAT O2 ABG 94 % (92-99)
--- NOTE | 2016-08-04 11:29 | RAD ---
KUB Clinical Indication: distension Comparison: August 03, 2016. Technique: Portable supine AP images of the abdomen are obtained. Findings: There is redemonstration of a gastric tube looped in the gastric body with the distal tip overlying the left upper quadrant, similar in position. Gaseous distended mostly large bowel loops are redemonstrated, similar to yesterday's exam. Degree of gaseous distended bowel loops centrally within the lower abdomen may be improved from the previous exam, although difficult to quantify. Visualized osseous structures and surrounding soft tissues demonstrate no acute interval change. IMPRESSION: Grossly similar appearing gaseous distended bowel loops, appearing mostly colonic. Upright radiograph can be obtained if concern for obstruction.
[2016-08-04 11:59] LABS: FIO2 ABG 40
[2016-08-04] MEDS ORDERED: CALCIUM CHLORIDE 1,000 MG/10 ML DISP.SYRIN IV ONE (12:00)
[2016-08-04] MEDS ORDERED: EPINEPHrine SYRINGE 1 MG/10 ML SYRINGE ONE (12:00)
[2016-08-04] MEDS ORDERED: SODIUM BICARB ADULT 8.4% 50 MEQ/50 ML DISP.SYRIN. ONE (12:00)
[2016-08-04] MEDS: NAFCILLIN 2 GM in IV NORMAL SALINE 100ML 100 ML IV SCH ×3 (12:37→22:46)
[2016-08-04 14:10] LABS: HEP A IGM ABDY Negative (Negative)
[2016-08-04] MEDS: ACETAMINOPHEN 650 MG SUPP.RECT. PR PRN (15:49)
[2016-08-04] MEDS ORDERED: SUCCINYLCHOLINE 200 MG/10 ML VIAL. ONE ×2 (16:00→16:14)
[2016-08-04] MEDS ORDERED: PROPOFOL 100 ML IV ONE (16:10)
[2016-08-04] MEDS: PROPOFOL 100 ML IV PRN (16:33)
[2016-08-04] MEDS ORDERED: SUCCINYLCHOLINE 200 MG/10 ML VIAL. IV ONE (16:45)
--- NOTE | 2016-08-04 17:09 | RAD ---
PROCEDURE Single view chest radiograph HISTORY Status post intubation TECHNIQUE Portable semi upright AP view of the chest is obtained. COMPARISON Earlier on the same day. FINDINGS Distal tip of the ET tube terminates 5.5 cm above the sundar. Gastric tube appears stable in position. Diffuse pulmonary opacities appear similar to the exam obtained earlier today. Increased opacification right lower lung represent worsening opacities small effusion. Cardiomediastinal silhouette remains within normal size. Visualized osseous structures and overlying soft tissues demonstrate no acute interval change. IMPRESSION Distal tip of the ET tube 5.5 cm above the sundar. Diffuse pulmonary up re- demonstrated, with worsening opacification or small effusion in the right inferior hemithorax. Electronically signed by: Eula Crawley (Aug 04, 2016 17:07:54)
[2016-08-04 18:00] LABS: HCO3 ABG 23 mmol/L (21-28); PCO2 ABG 37 mmHg (35-46); PH ABG 7.42 (7.35-7.45); PO2 ABG 96 mmHg (75-108)
[2016-08-04 18:01] LABS: FIO2 ABG 50; SAT O2 ABG 97 % (92-99)
[2016-08-04] MEDS: CHLORHEXIDINE 0.12% 15 ML MOUTHWASH. MM SCH (19:33)
[2016-08-04] MEDS: FAMOTIDINE 20 MG/2 ML VIAL IVP SCH (22:46)
[2016-08-05] VITALS (23 sets, daily range): BP systolic 82–109; BP diastolic 43–67
[2016-08-05] MEDS: NAFCILLIN 2 GM in IV NORMAL SALINE 100ML 100 ML IV SCH ×6 (00:42→19:28)
[2016-08-05] MEDS: FAMOTIDINE 20 MG/2 ML VIAL IVP SCH ×3 (00:42→20:44)
[2016-08-05] MEDS: AMINO AC 3%/ELECTROLYTE/GLYCER 1,000 ML IV SCH (02:40)
[2016-08-05] MEDS: PROPOFOL 100 ML IV PRN ×3 (02:40→22:48)
[2016-08-05] MEDS: ACETAMINOPHEN 650 MG SUPP.RECT. PR PRN (05:10)
[2016-08-05 05:36] LABS: BASO % 0 % (0-3); EOS % 2 % (0-3); HEMATOCRIT 23.4 % (36.0-47.0); HEMOGLOBIN 7.8 g/dL (12.0-15.5); LYMPH % 16 % (24-48); MEAN CORPUSCULAR HEMOGLOBIN 30 pg (25-35); MEAN CORPUSCULAR HGB CONC 33 g/dL (31-37); MEAN CORPUSCULAR VOLUME 89 fL (79-100); MONO % 9 % (0-9); NEUT % 73 % (31-73); PLATELET COUNT 53 x10^3/uL (140-400); RED BLOOD COUNT 2.64 x10^6/uL (3.50-5.40); RED CELL DISTRIBUTION WIDTH 14.6 % (11.5-14.5); WHITE BLOOD COUNT 18.2 x10^3/uL (4.0-11.0)
[2016-08-05 05:47] LABS: ALBUMIN 1.2 g/dL (3.4-5.0); ALBUMIN/GLOBULIN RATIO 0.2 (1.0-1.7); CALCIUM 7.3 mg/dL (8.5-10.1); CREATININE 0.9 mg/dL (0.6-1.0); GFR 68.7; POTASSIUM 5.4 mmol/L (3.5-5.1); TOTAL BILIRUBIN 2.2 mg/dL (0.2-1.0); TOTAL PROTEIN 6.3 g/dL (6.4-8.2)
--- NOTE | 2016-08-05 06:50 | PDOC ---
Infectious Disease Note Subjective Subjective Intubated/sedated ROS ROS Unobtainable Vital Sign Vital Signs Vital Signs Date Time Temp Pulse Resp B/P Pulse Ox O2 Delivery O2 Flow Rate FiO2 08/05/16 05:00 101.0 101 40 109/59 100 Ventilator 101.0 08/04/16 11:00 4.0 Physical Exam PHYSICAL EXAM GENERAL: Intubated HEENT: PERRL, normal conjunctivae NECK: Supple LUNGS: Clear, tachypneic HEART: S1S2, no murmur appreciated ABD: Less distended, soft, NT, NG : Shelby EXT: BLE trace edema. [employer]GER: sedated SKIN: No rash. multiple tattoos IV: ok Labs Lab Laboratory Tests Test 08/04/16 08:40 08/04/16 11:07 08/04/16 17:30 08/05/16 05:02 O2 Saturation 88% (92-99) 94% (92-99) 97% (92-99) Arterial Blood pH 7.51 (7.35-7.45) 7.49 (7.35-7.45) 7.42 (7.35-7.45) Arterial Blood pCO2 at Patient Temp 28mmHg (35-46) 33mmHg (35-46) 37mmHg (35-46) Arterial Blood pO2 at Patient Temp 53mmHg (75-108) 70mmHg (75-108) 96mmHg (75-108) Arterial Blood HCO3 22mmol/L (21-28) 24mmol/L (21-28) 23mmol/L (21-28) Arterial Blood Base Excess 0mmol/L (-3-3) 1mmol/L (-3-3) -1mmol/L (-3-3) FiO2 32 40 50 White Blood Count 18.2x10^3/uL (4.0-11.0) Red Blood Count 2.64x10^6/uL (3.50-5.40) Hemoglobin 7.8g/dL (12.0-15.5) Hematocrit 23.4% (36.0-47.0) Mean Corpuscular Volume 89fL (79-100) Mean Corpuscular Hemoglobin 30pg (25-35) Mean Corpuscular Hemoglobin Concent 33g/dL (31-37) Red Cell Distribution Width 14.6% (11.5-14.5) Platelet Count 53x10^3/uL (140-400) Neutrophils (%) (Auto) 73% (31-73) Lymphocytes (%) (Auto) 16% (24-48) Monocytes (%) (Auto) 9% (0-9) Eosinophils (%) (Auto) 2% (0-3) Basophils (%) (Auto) 0% (0-3) Neutrophils # (Auto) 13.3x10^3uL (1.8-7.7) Lymphocytes # (Auto) 3.0x10^3/uL (1.0-4.8) Monocytes # (Auto) 1.5x10^3/uL (0.0-1.1) Eosinophils # (Auto) 0.3x10^3/uL (0.0-0.7) Basophils # (Auto) 0.0x10^3/uL (0.0-0.2) Sodium Level 135mmol/L (136-145) Potassium Level 5.4mmol/L (3.5-5.1) Chloride Level 104mmol/L (98-107) Carbon Dioxide Level 22mmol/L (21-32) Anion Gap 9 (6-14) Blood Urea Nitrogen 39mg/dL (7-20) Creatinine 0.9mg/dL (0.6-1.0) Estimated GFR (Cockcroft-Gault) 68.7 BUN/Creatinine Ratio 43 (6-20) Glucose Level 114mg/dL (70-99) Calcium Level 7.3mg/dL (8.5-10.1) Total Bilirubin 2.2mg/dL (0.2-1.0) Aspartate Amino Transf (AST/SGOT) 32U/L (15-37) Alanine Aminotransferase (ALT/SGPT) 22U/L (14-59) Alkaline Phosphatase 178U/L (46-116) Total Protein 6.3g/dL (6.4-8.2) Albumin 1.2g/dL (3.4-5.0) Albumin/Globulin Ratio 0.2 (1.0-1.7) Objective Assessment Acute Resp failure - Intubated ? developing ARDS Presumptive MSSA 08/01 sepsis - d/w micro this am Hep C IV drug use. Right-sided bacterial endocarditis. -TTE. 3.0 x 2.0cm mobile mass TV -BC NGTD, 08/01 ([facility]). Multiple pulmonary nodules Ileus Renal insufficiency. Severe thrombocytopenia. Leukocytosis. Fever. Hepatosplenomegaly on CT Plan Plan of Care Cont Nafcillin Repeat Blood cults F/u labs & cultures KAYLYNN SHAY MD Aug 05, 2016 06:50
[2016-08-05] MEDS ORDERED: IV RINGERS,LACTATED 1000ML 1,000 ML IV SCH (07:00)
--- NOTE | 2016-08-05 07:37 | RAD ---
Portable chest, 08/05/2016: History: Respiratory failure Comparison is made to yesterday's study. The ET tube tip lies well above the sundar. An NG tube extends into the stomach. The heart is within normal limits in size. Moderate patchy bilateral pulmonary infiltrates are unchanged. These are most prominent on the right and demonstrate a predominantly peripheral distribution. The underlying pulmonary vascularity is poorly defined. Pleural fluid contributing to the basilar opacities cannot be excluded. There is no evidence of pneumothorax. IMPRESSION: 1. Stable tube positions. 2. Unchanged moderate patchy bilateral pulmonary infiltrates probably representing pneumonia.
[2016-08-05] MEDS: IPRATRPIUM/ALBUTEROL 0.5/2.5MG 3 ML NEBU. NEB SCH ×4 (08:38→20:12)
[2016-08-05] MEDS: BUDESONIDE 0.5 MG/2 ML NEBU. NEB SCH ×2 (08:39→20:11)
[2016-08-05 08:57] LABS: HCO3 ABG 19 mmol/L (21-28); PCO2 ABG 31 mmHg (35-46); PH ABG 7.41 (7.35-7.45); PO2 ABG 109 mmHg (75-108); SAT O2 ABG 98 % (92-99)
[2016-08-05 08:59] LABS: FIO2 ABG 40
[2016-08-05] MEDS: IV NORMAL SALINE 1000ML BAG 1,000 ML IV SCH ×2 (10:05→17:31)
[2016-08-05] MEDS: CHLORHEXIDINE 0.12% 15 ML MOUTHWASH. MM SCH ×2 (10:09→20:44)
--- NOTE | 2016-08-05 12:20 | PDOC ---
PROGRESS NOTES Chief Complaint Chief Complaint Sepsis ASSESSMENT AND PLAN: 1. Sepsis/endocarditis: initial blood cultures NGTD, but tricuspid valve vegetation on echo. on naficillin as per ID 2. Pneumonia: septic emboli bilat, with worsening oxygenation, on BiPAP, may need intubation. close monitoring w/ABG 3. Hyponatremia: improving; cont repletion w/IVF 4. Leukocytosis: persisting unchanged. 2/2 infect, monitor 5. Thrombocytopenia 2/2 sepsis likely: early signs of recovery. no signs of bleed. monitor, transfuse for plts <10 6. Prophylaxis: hold anticoag with low plts; start when plts recovered to >50 7. Abd distension: KUB yesterday with massive gas throughout. NGT in place. rpt KUB 8. hyperkalemia 9. acute resp failure with 1 and 2 DC PPN GIVEN high K hold tube feeding for now given distended abd fu bcx fu with pulm, ID, card keep in ICU, intubated, sedated CC: 40 min History of Present Illness History of Present Illness fever, last night intubated, sedated high K on PPN Vitals Vitals Vital Signs Date Time Temp Pulse Resp B/P Pulse Ox O2 Delivery O2 Flow Rate FiO2 08/05/16 11:00 100 30 103/57 100 Ventilator 08/05/16 07:00 100.7 100.7 08/04/16 11:00 4.0 Physical Exam Physical Exam INTUBATED ,sedated Heart: Regular rate, Normal S1, Normal S2, Other (tachy) Lungs: Other (bl coarse bs) Abdomen: Normal bowel sounds, No tenderness Extremities: No edema Skin: No rashes Labs LABS Laboratory Tests Test 08/04/16 17:30 08/05/16 05:02 08/05/16 08:30 O2 Saturation 97% (92-99) 98% (92-99) Arterial Blood pH 7.42 (7.35-7.45) 7.41 (7.35-7.45) Arterial Blood pCO2 at Patient Temp 37mmHg (35-46) 31mmHg (35-46) Arterial Blood pO2 at Patient Temp 96mmHg (75-108) 109mmHg (75-108) Arterial Blood HCO3 23mmol/L (21-28) 19mmol/L (21-28) Arterial Blood Base Excess -1mmol/L (-3-3) -5mmol/L (-3-3) FiO2 50 40 White Blood Count 18.2x10^3/uL (4.0-11.0) Red Blood Count 2.64x10^6/uL (3.50-5.40) Hemoglobin 7.8g/dL (12.0-15.5) Hematocrit 23.4% (36.0-47.0) Mean Corpuscular Volume 89fL (79-100) Mean Corpuscular Hemoglobin 30pg (25-35) Mean Corpuscular Hemoglobin Concent 33g/dL (31-37) Red Cell Distribution Width 14.6% (11.5-14.5) Platelet Count 53x10^3/uL (140-400) Neutrophils (%) (Auto) 73% (31-73) Lymphocytes (%) (Auto) 16% (24-48) Monocytes (%) (Auto) 9% (0-9) Eosinophils (%) (Auto) 2% (0-3) Basophils (%) (Auto) 0% (0-3) Neutrophils # (Auto) 13.3x10^3uL (1.8-7.7) Lymphocytes # (Auto) 3.0x10^3/uL (1.0-4.8) Monocytes # (Auto) 1.5x10^3/uL (0.0-1.1) Eosinophils # (Auto) 0.3x10^3/uL (0.0-0.7) Basophils # (Auto) 0.0x10^3/uL (0.0-0.2) Sodium Level 135mmol/L (136-145) Potassium Level 5.4mmol/L (3.5-5.1) Chloride Level 104mmol/L (98-107) Carbon Dioxide Level 22mmol/L (21-32) Anion Gap 9 (6-14) Blood Urea Nitrogen 39mg/dL (7-20) Creatinine 0.9mg/dL (0.6-1.0) Estimated GFR (Cockcroft-Gault) 68.7 BUN/Creatinine Ratio 43 (6-20) Glucose Level 114mg/dL (70-99) Calcium Level 7.3mg/dL (8.5-10.1) Total Bilirubin 2.2mg/dL (0.2-1.0) Aspartate Amino Transf (AST/SGOT) 32U/L (15-37) Alanine Aminotransferase (ALT/SGPT) 22U/L (14-59) Alkaline Phosphatase 178U/L (46-116) Total Protein 6.3g/dL (6.4-8.2) Albumin 1.2g/dL (3.4-5.0) Albumin/Globulin Ratio 0.2 (1.0-1.7) Review of Systems Review of Systems no chills Comment Review of Relevant I have reviewed the following items shanta (where applicable) has been applied. Labs Laboratory Tests Test 08/04/16 05:00 08/04/16 08:40 08/04/16 11:07 08/04/16 17:30 White Blood Count 19.4x10^3/uL (4.0-11.0) Red Blood Count 3.06x10^6/uL (3.50-5.40) Hemoglobin 8.9g/dL (12.0-15.5) Hematocrit 27.1% (36.0-47.0) Mean Corpuscular Volume 89fL (79-100) Mean Corpuscular Hemoglobin 29pg (25-35) Mean Corpuscular Hemoglobin Concent 33g/dL (31-37) Red Cell Distribution Width 14.4% (11.5-14.5) Platelet Count 31x10^3/uL (140-400) Neutrophils (%) (Auto) 71% (31-73) Lymphocytes (%) (Auto) 16% (24-48) Monocytes (%) (Auto) 11% (0-9) Eosinophils (%) (Auto) 1% (0-3) Basophils (%) (Auto) 1% (0-3) Neutrophils # (Auto) 13.8x10^3uL (1.8-7.7) Lymphocytes # (Auto) 3.1x10^3/uL (1.0-4.8) Monocytes # (Auto) 2.2x10^3/uL (0.0-1.1) Eosinophils # (Auto) 0.2x10^3/uL (0.0-0.7) Basophils # (Auto) 0.1x10^3/uL (0.0-0.2) Sodium Level 132mmol/L (136-145) Potassium Level 4.9mmol/L (3.5-5.1) Chloride Level 101mmol/L (98-107) Carbon Dioxide Level 25mmol/L (21-32) Anion Gap 6 (6-14) Blood Urea Nitrogen 32mg/dL (7-20) Creatinine 0.7mg/dL (0.6-1.0) Estimated GFR (Cockcroft-Gault) 91.8 BUN/Creatinine Ratio 46 (6-20) Glucose Level 107mg/dL (70-99) Calcium Level 7.7mg/dL (8.5-10.1) Total Bilirubin 1.0mg/dL (0.2-1.0) Aspartate Amino Transf (AST/SGOT) 32U/L (15-37) Alanine Aminotransferase (ALT/SGPT) 29U/L (14-59) Alkaline Phosphatase 160U/L (46-116) Total Protein 6.1g/dL (6.4-8.2) Albumin 1.4g/dL (3.4-5.0) Albumin/Globulin Ratio 0.3 (1.0-1.7) O2 Saturation 88% (92-99) 94% (92-99) 97% (92-99) Arterial Blood pH 7.51 (7.35-7.45) 7.49 (7.35-7.45) 7.42 (7.35-7.45) Arterial Blood pCO2 at Patient Temp 28mmHg (35-46) 33mmHg (35-46) 37mmHg (35-46) Arterial Blood pO2 at Patient Temp 53mmHg (75-108) 70mmHg (75-108) 96mmHg (75-108) Arterial Blood HCO3 22mmol/L (21-28) 24mmol/L (21-28) 23mmol/L (21-28) Arterial Blood Base Excess 0mmol/L (-3-3) 1mmol/L (-3-3) -1mmol/L (-3-3) FiO2 32 40 50 Test 08/05/16 05:02 08/05/16 08:30 White Blood Count 18.2x10^3/uL (4.0-11.0) Red Blood Count 2.64x10^6/uL (3.50-5.40) Hemoglobin 7.8g/dL (12.0-15.5) Hematocrit 23.4% (36.0-47.0) Mean Corpuscular Volume 89fL (79-100) Mean Corpuscular Hemoglobin 30pg (25-35) Mean Corpuscular Hemoglobin Concent 33g/dL (31-37) Red Cell Distribution Width 14.6% (11.5-14.5) Platelet Count 53x10^3/uL (140-400) Neutrophils (%) (Auto) 73% (31-73) Lymphocytes (%) (Auto) 16% (24-48) Monocytes (%) (Auto) 9% (0-9) Eosinophils (%) (Auto) 2% (0-3) Basophils (%) (Auto) 0% (0-3) Neutrophils # (Auto) 13.3x10^3uL (1.8-7.7) Lymphocytes # (Auto) 3.0x10^3/uL (1.0-4.8) Monocytes # (Auto) 1.5x10^3/uL (0.0-1.1) Eosinophils # (Auto) 0.3x10^3/uL (0.0-0.7) Basophils # (Auto) 0.0x10^3/uL (0.0-0.2) Sodium Level 135mmol/L (136-145) Potassium Level 5.4mmol/L (3.5-5.1) Chloride Level 104mmol/L (98-107) Carbon Dioxide Level 22mmol/L (21-32) Anion Gap 9 (6-14) Blood Urea Nitrogen 39mg/dL (7-20) Creatinine 0.9mg/dL (0.6-1.0) Estimated GFR (Cockcroft-Gault) 68.7 BUN/Creatinine Ratio 43 (6-20) Glucose Level 114mg/dL (70-99) Calcium Level 7.3mg/dL (8.5-10.1) Total Bilirubin 2.2mg/dL (0.2-1.0) Aspartate Amino Transf (AST/SGOT) 32U/L (15-37) Alanine Aminotransferase (ALT/SGPT) 22U/L (14-59) Alkaline Phosphatase 178U/L (46-116) Total Protein 6.3g/dL (6.4-8.2) Albumin 1.2g/dL (3.4-5.0) Albumin/Globulin Ratio 0.2 (1.0-1.7) O2 Saturation 98% (92-99) Arterial Blood pH 7.41 (7.35-7.45) Arterial Blood pCO2 at Patient Temp 31mmHg (35-46) Arterial Blood pO2 at Patient Temp 109mmHg (75-108) Arterial Blood HCO3 19mmol/L (21-28) Arterial Blood Base Excess -5mmol/L (-3-3) FiO2 40 Laboratory Tests Test 08/04/16 17:30 08/05/16 05:02 08/05/16 08:30 O2 Saturation 97% (92-99) 98% (92-99) Arterial Blood pH 7.42 (7.35-7.45) 7.41 (7.35-7.45) Arterial Blood pCO2 at Patient Temp 37mmHg (35-46) 31mmHg (35-46) Arterial Blood pO2 at Patient Temp 96mmHg (75-108) 109mmHg (75-108) Arterial Blood HCO3 23mmol/L (21-28) 19mmol/L (21-28) Arterial Blood Base Excess -1mmol/L (-3-3) -5mmol/L (-3-3) FiO2 50 40 White Blood Count 18.2x10^3/uL (4.0-11.0) Red Blood Count 2.64x10^6/uL (3.50-5.40) Hemoglobin 7.8g/dL (12.0-15.5) Hematocrit 23.4% (36.0-47.0) Mean Corpuscular Volume 89fL (79-100) Mean Corpuscular Hemoglobin 30pg (25-35) Mean Corpuscular Hemoglobin Concent 33g/dL (31-37) Red Cell Distribution Width 14.6% (11.5-14.5) Platelet Count 53x10^3/uL (140-400) Neutrophils (%) (Auto) 73% (31-73) Lymphocytes (%) (Auto) 16% (24-48) Monocytes (%) (Auto) 9% (0-9) Eosinophils (%) (Auto) 2% (0-3) Basophils (%) (Auto) 0% (0-3) Neutrophils # (Auto) 13.3x10^3uL (1.8-7.7) Lymphocytes # (Auto) 3.0x10^3/uL (1.0-4.8) Monocytes # (Auto) 1.5x10^3/uL (0.0-1.1) Eosinophils # (Auto) 0.3x10^3/uL (0.0-0.7) Basophils # (Auto) 0.0x10^3/uL (0.0-0.2) Sodium Level 135mmol/L (136-145) Potassium Level 5.4mmol/L (3.5-5.1) Chloride Level 104mmol/L (98-107) Carbon Dioxide Level 22mmol/L (21-32) Anion Gap 9 (6-14) Blood Urea Nitrogen 39mg/dL (7-20) Creatinine 0.9mg/dL (0.6-1.0) Estimated GFR (Cockcroft-Gault) 68.7 BUN/Creatinine Ratio 43 (6-20) Glucose Level 114mg/dL (70-99) Calcium Level 7.3mg/dL (8.5-10.1) Total Bilirubin 2.2mg/dL (0.2-1.0) Aspartate Amino Transf (AST/SGOT) 32U/L (15-37) Alanine Aminotransferase (ALT/SGPT) 22U/L (14-59) Alkaline Phosphatase 178U/L (46-116) Total Protein 6.3g/dL (6.4-8.2) Albumin 1.2g/dL (3.4-5.0) Albumin/Globulin Ratio 0.2 (1.0-1.7) Medications Current Medications Amino Acids/ Glycerin/ Electrolytes (Procalamine) 1,000 ml @ 100 mls/hr Q10H IV Last administered on 08/05/16 02:40; Start 08/02/16 at 03:00; Stop at 08:50; Status DC Morphine Sulfate 2 mg 2 mg PRN Q2HR PRN IV SEVERE PAIN Last administered on 11:59; Start 08/02/16 at 02:30; Stop 08/02/16 at 13:28; Status DC Daptomycin 220 mg/ Sodium Chloride 50 ml @ 100 mls/hr Q24H IV ; Start 08/02/16 at 09:15; Stop 08/02/16 at 15:58; Status DC Cefepime HCl 1 gm/ Sodium Chloride 50 ml @ 100 mls/hr Q12HR IV Last administered on 08/04/16 08:10; Start 08/02/16 at 10:00; Stop 08/04/16 at 10:33 ; Status DC Daptomycin/Sodium Chloride (Cubicin/Iv Sodium Chloride 0.9% 50ml) 50 ml @ 100 mls/hr ONCE ONCE IV ; Start 08/02/16 at 10:00; Stop 08/02/16 at 10:29; Status Cancel Potassium Chloride 40 meq 40 meq 1X ONCE PO Last administered on 08/02/16 10: 17; Start 08/02/16 at 09:45; Stop 08/02/16 at 09:46; Status DC Daptomycin/Sodium Chloride (Cubicin/Iv Sodium Chloride 0.9% 50ml) 50 ml @ 100 mls/hr Q24H IV Last administered on 08/03/16 09:43; Start 08/02/16 at 10:15; Stop 08/03/16 at 10:29; Status DC Potassium Chloride (Klor-Con) 40 meq 1X ONCE PO Last administered on 12:57; Start 08/02/16 at 12:30; Stop 08/02/16 at 12:36; Status DC Morphine Sulfate 5 mg PRN Q2HRS PRN IV MODERATE TO SEVERE PAIN Last administered on 08/04/16 08:16; Start 08/02/16 at 13:30 Morphine Sulfate 8 mg PRN Q2HRS PRN IV MODERATE TO SEVERE PAIN Last administered on 08/04/16 14:58; Start 08/02/16 at 13:30 Acetaminophen 650 mg 650 mg PRN Q6HRS PRN PO TEMP GREATER THAN 100.4; Start at 14:45 Lactated Ringer's 1,000 ml @ 50 mls/hr Q20H IV ; Start 08/05/16 at 07:00; Stop 08/05/16 at 18:59 Daptomycin/Sodium Chloride (Cubicin/Iv Sodium Chloride 0.9% 50ml) 50 ml @ 100 mls/hr Q24H IV ; Start 08/03/16 at 11:00; Status Cancel Potassium Chloride (Klor-Con) 40 meq 1X ONCE PO Last administered on 17:41; Start 08/02/16 at 17:15; Stop 08/02/16 at 17:18; Status DC Potassium Chloride (Klor-Con) 40 meq BIDWMEALS PO ; Start 08/03/16 at 08:00; Stop 08/03/16 at 11:08; Status DC Morphine Sulfate 5 mg 1X ONCE IV Last administered on 08/02/16 21:45; Start 08/02/16 at 21:30; Stop 08/02/16 at 21:33; Status DC Lorazepam (Ativan) 1 mg 1X ONCE IV Last administered on 08/02/16 21:30; Start 08/02/16 at 21:30; Stop 08/02/16 at 21:33; Status DC Acetaminophen (Acetaminophen Supp) 650 mg PRN Q6HRS PRN UT MILD PAIN / TEMP Last administered on 08/05/16 05:10; Start 08/03/16 at 01:15 Albuterol/ Ipratropium (Duoneb) 3 ml RTQID NEB Last administered on 08/05/16 08:38; Start 08/03/16 at 08:00 Budesonide (Pulmicort) 0.5 mg RTBID NEB Last administered on 08/05/16 08:39; Start 08/03/16 at 08:00 Pantoprazole Sodium 40 mg 40 mg 1X ONCE IVP Last administered on 08/03/16 10: 06; Start 08/03/16 at 08:00; Stop 08/03/16 at 08:01; Status DC Daptomycin/Sodium Chloride (Cubicin/Iv Sodium Chloride 0.9% 50ml) 50 ml @ 100 mls/hr Q24H IV Last administered on 08/04/16 10:03; Start 08/04/16 at 10:00; Stop 08/04/16 at 10:33; Status DC Lorazepam (Ativan) 0.5 mg PRN Q6HRS PRN IV ANXIETY / AGITATION Last administered on 08/04/16 09:12; Start 08/03/16 at 11:15 Lorazepam (Ativan) 0.5 mg 1X ONCE IV Last administered on 08/04/16 10:00; Start 08/04/16 at 10:00; Stop 08/04/16 at 10:01; Status DC Morphine Sulfate 5 mg 1X ONCE IV Last administered on 08/04/16 10:00; Start 08/04/16 at 10:00; Stop 08/04/16 at 10:01; Status DC Lorazepam 0.5 mg 0.5 mg PRN Q4HRS PRN IV ANXIETY / AGITATION Last administered on 08/04/16 14:58; Start 08/04/16 at 10:00 Nafcillin Sodium 2 gm/Sodium Chloride 100 ml @ 200 mls/hr Q4HRS IV Last administered on 08/05/16 10:00; Start 08/04/16 at 12:00 Propofol (Diprivan) 100 ml @ As Directed STK-MED ONCE IV ; Start 08/04/16 at 16 :10; Stop 08/04/16 at 16:11; Status DC Succinylcholine Chloride (Anectine) 200 mg STK-MED ONCE .ROUTE ; Start 08/04/16 at 16:14; Stop 08/04/16 at 16:15; Status DC Succinylcholine Chloride 200 mg 200 mg 1X ONCE IV ; Start 08/04/16 at 16:45; Stop 08/04/16 at 16:46; Status DC Propofol (Diprivan) 100 ml @ 0 mls/hr CONT PRN IV SEE I/O RECORD Last administered on 08/05/16 05:08; Start 08/04/16 at 16:45 Lorazepam (Ativan) 0.5 mg 1X ONCE IV Last administered on 08/04/16 16:45; Start 08/04/16 at 16:45; Stop 08/04/16 at 16:46; Status DC Morphine Sulfate 5 mg 5 mg 1X ONCE IV Last administered on 08/04/16 16:44; Start 08/04/16 at 16:45; Stop 08/04/16 at 16:46; Status DC Fentanyl Citrate (Fentanyl 600 Mcg/30 ml EDI ARCHITECT) 30 ml @ 0 mls/hr CONT PRN IV PROTOCOL Last administered on 08/05/16 10:27; Start 08/04/16 at 16:45 Chlorhexidine Gluconate (Peridex) 15 ml BID MM Last administered on 08/05/16 10:09; Start 08/04/16 at 21:00 Famotidine 20 mg 20 mg BID IVP Last administered on 08/05/16 09:59; Start at 17:00 Sodium Chloride (Iv Sodium Chloride 0.9% 1000ml Bag) 1,000 ml @ 100 mls/hr Q10H IV Last administered on 08/05/16t 10:05; Start 08/05/16 at 09:00 Vitals/I & O Vital Sign - Last 24 Hours 08/04/16 08/04/16 08/04/16 08/04/16 12:33 13:00 13:24 14:00 Pulse 120 120 Resp 50 43 45 B/P 133/73 119/63 Pulse Ox 97 97 97 97 O2 Delivery BiPAP/CPAP BiPAP/CPAP BiPAP/CPAP BiPAP/CPAP 08/04/16 08/04/16 08/04/16 08/04/16 14:30 14:48 14:58 15:00 Temp 100.8 100.8 Pulse 123 Resp 51 51 B/P 121/62 Pulse Ox 98 97 97 O2 Delivery Ventilator BiPAP/CPAP BiPAP/CPAP BiPAP/CPAP 08/04/16 08/04/16 08/04/16 08/04/16 15:29 15:44 15:45 16:44 Temp 102.7 102.7 Pulse 128 Resp 45 54 54 B/P 120/69 Pulse Ox 97 96 94 O2 Delivery BiPAP/CPAP Bi-pap BiPAP/CPAP BiPAP/CPAP 08/04/16 08/04/16 08/04/16 08/04/16 17:00 17:13 17:42 19:00 Pulse 118 110 Resp 23 34 45 B/P 93/47 95/48 Pulse Ox 97 97 99 100 O2 Delivery Ventilator Ventilator Ventilator 08/04/16 08/04/16 08/04/16 08/04/16 19:45 19:49 20:00 20:00 Temp 100.9 100.9 Pulse 104 Resp 31 B/P 94/53 Pulse Ox 99 99 95 O2 Delivery Ventilator Ventilator Mechanical Ventilator 08/04/16 08/04/16 08/04/16 08/04/16 21:00 22:00 23:00 23:08 Pulse 98 98 102 Resp 32 29 40 B/P 98/63 94/54 103/56 Pulse Ox 100 100 98 100 O2 Delivery Ventilator Ventilator Ventilator Ventilator 08/05/16 08/05/16 08/05/16 08/05/16 00:00 00:00 01:00 02:00 Temp 99.2 99.2 Pulse 98 102 102 Resp 40 28 30 B/P 96/50 104/51 102/63 Pulse Ox 100 100 100 O2 Delivery Mechanical Ventilator Ventilator Ventilator 08/05/16 08/05/16 08/05/16 08/05/16 02:14 03:00 04:00 04:00 Temp 100.4 100.4 Pulse 102 102 Resp 29 40 B/P 105/55 106/61 Pulse Ox 100 100 100 O2 Delivery Ventilator Ventilator Mechanical Ventilator 08/05/16 08/05/16 08/05/16 08/05/16 04:19 05:00 06:00 07:00 Temp 101.0 100.7 101.0 100.7 Pulse 101 93 100 Resp 31 31 28 B/P 109/59 92/64 92/54 Pulse Ox 100 100 100 92 O2 Delivery Ventilator Ventilator Ventilator Ventilator 08/05/16 08/05/16 08/05/16 08/05/16 08:00 08:00 08:30 09:00 Pulse 100 100 Resp 27 37 B/P 98/53 94/55 Pulse Ox 96 100 96 O2 Delivery Ventilator Mechanical Ventilator Ventilator Ventilator 08/05/16 08/05/16 08/05/16 10:00 10:27 11:00 Pulse 100 100 Resp 33 28 30 B/P 96/67 103/57 Pulse Ox 98 100 100 O2 Delivery Ventilator Ventilator Ventilator Intake and Output 08/04/16 08/04/16 08/05/16 14:59 22:59 06:59 Intake Total 1348 ml Output Total 1250 ml 700 ml Balance 98 ml -700 ml Nutrition Consultation Dietary Evaluation: Recommendations by RD: PPN/TPN Comments: Rec. continue PPN when labs improve Expected Outcomes/Goals: initiation of nutrition support Interpretation of weight loss: >7.5% in 3 months Malnutrition Findings: Food and Nutrition Intake (Mod: <75% est energy req 7days Body Fat Depletion (Non Severe: Mild Depletion Reduced Capture Manager Strength: N/A Reduced Capture Manager Strength (Non-Sev: N/A Malnutrition related to morbid: No Weight Status: Appropriate Fluid Accumulation (N/A): N/A MAYKEL BAUTISTA MD Aug 05, 2016 12:20
--- NOTE | 2016-08-05 13:33 | PDOC ---
CARDIO Progress Notes Date and Time Date of Service 08/05/2016 Time of Evaluation 1329 Subjective Subjective: Other (intubated / sedated) Vitals Vitals Vital Signs Date Time Temp Pulse Resp B/P Pulse Ox O2 Delivery O2 Flow Rate FiO2 08/05/16 12:55 100 Ventilator 08/05/16 11:00 100 30 103/57 08/05/16 07:00 100.7 100.7 08/04/16 11:00 4.0 Weight Weight [ ] Stability Assessment Stability Assess.: unstable for transfer (Intesive V. sign monit. req) Input and Output Intake and Output Intake and Output 08/05/16 06:59 Intake Total 1348 ml Output Total 1950 ml Balance -602 ml Other 1348 ml Output Urine Total 1850 ml Gastric Drainage Total 100 ml Laboratory Labs Laboratory Tests Test 08/04/16 17:30 08/05/16 05:02 08/05/16 08:30 O2 Saturation 97% (92-99) 98% (92-99) Arterial Blood pH 7.42 (7.35-7.45) 7.41 (7.35-7.45) Arterial Blood pCO2 at Patient Temp 37mmHg (35-46) 31mmHg (35-46) Arterial Blood pO2 at Patient Temp 96mmHg (75-108) 109mmHg (75-108) Arterial Blood HCO3 23mmol/L (21-28) 19mmol/L (21-28) Arterial Blood Base Excess -1mmol/L (-3-3) -5mmol/L (-3-3) FiO2 50 40 White Blood Count 18.2x10^3/uL (4.0-11.0) Red Blood Count 2.64x10^6/uL (3.50-5.40) Hemoglobin 7.8g/dL (12.0-15.5) Hematocrit 23.4% (36.0-47.0) Mean Corpuscular Volume 89fL (79-100) Mean Corpuscular Hemoglobin 30pg (25-35) Mean Corpuscular Hemoglobin Concent 33g/dL (31-37) Red Cell Distribution Width 14.6% (11.5-14.5) Platelet Count 53x10^3/uL (140-400) Neutrophils (%) (Auto) 73% (31-73) Lymphocytes (%) (Auto) 16% (24-48) Monocytes (%) (Auto) 9% (0-9) Eosinophils (%) (Auto) 2% (0-3) Basophils (%) (Auto) 0% (0-3) Neutrophils # (Auto) 13.3x10^3uL (1.8-7.7) Lymphocytes # (Auto) 3.0x10^3/uL (1.0-4.8) Monocytes # (Auto) 1.5x10^3/uL (0.0-1.1) Eosinophils # (Auto) 0.3x10^3/uL (0.0-0.7) Basophils # (Auto) 0.0x10^3/uL (0.0-0.2) Sodium Level 135mmol/L (136-145) Potassium Level 5.4mmol/L (3.5-5.1) Chloride Level 104mmol/L (98-107) Carbon Dioxide Level 22mmol/L (21-32) Anion Gap 9 (6-14) Blood Urea Nitrogen 39mg/dL (7-20) Creatinine 0.9mg/dL (0.6-1.0) Estimated GFR (Cockcroft-Gault) 68.7 BUN/Creatinine Ratio 43 (6-20) Glucose Level 114mg/dL (70-99) Calcium Level 7.3mg/dL (8.5-10.1) Total Bilirubin 2.2mg/dL (0.2-1.0) Aspartate Amino Transf (AST/SGOT) 32U/L (15-37) Alanine Aminotransferase (ALT/SGPT) 22U/L (14-59) Alkaline Phosphatase 178U/L (46-116) Total Protein 6.3g/dL (6.4-8.2) Albumin 1.2g/dL (3.4-5.0) Albumin/Globulin Ratio 0.2 (1.0-1.7) Radiology Rad Impression CXR: 1. Stable tube positions. 2. Unchanged moderate patchy bilateral pulmonary infiltrates probably representing pneumonia. Physical Exam Chest: Symmetric LUNGS: Other (coarse anteriorly) Heart: S1S2, RRR, other (tele: ST) Abdomen: Soft N/T Extremities: No Edema Neurology: other (sedated) Assessment Assessment 1. sepsis vegetation on TV hx IVDA abx per ID NIDIA cancelled as vegetation clearly seen on TTE 2. acute respiratory failure/pneumonia/? ARDS per pulm 3. ALEXANDRIA Young RN HOME CARE Aug 05, 2016 13:33
--- NOTE | 2016-08-05 13:58 | PDOC2 ---
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 She had an echo which demonstrated a large tricuspid valve vegetation, measuring 2 x 3 cm causing mild to moderate TR. She was subsequently transferred to [facility]. Upon admission the patient appeared to be septic, with tachycardia, hypoxia, leukocytosis, fevers. In addition she had acute renal failure and severe thrombocytopenia. Her hypoxia deteriorated over the weekend and she is now. She has normal sinus rhythm, and there is no evidence of heart block. She is not in florid heart failure. The 3 cm vegetation only appears to involve the leaflets and there is no evidence of an annular abscess. So history of hepatitis C and on CT she does have some hepatosplenomegaly. She is currently in ARDS. Past Medical History Cardiovascular: No pertinent hx Pulmonary: No pertinent hx GI: Other (chronic hepatitis C) Heme/Onc: No pertinent hx Hepatobiliary: Hep A/B/C Psych: Addictions Rheumatologic: No pertinent hx ENT: No pertinent hx Renal/: No pertinent hx Endocrine: No pertinent hx Dermatology: No pertinent hx Family History Family History: No Significant Social History 1 pack per day ALCOHOL: occassional Drugs: Heroin Lives: with Family Current Medications Current Medications Current Medications Amino Acids/ Glycerin/ Electrolytes (Procalamine) 1,000 ml @ 100 mls/hr Q10H IV Last administered on 08/05/16 02:40; Start 08/02/16 at 03:00; Stop at 08:50; Status DC Morphine Sulfate 2 mg 2 mg PRN Q2HR PRN IV SEVERE PAIN Last administered on t 11:59; Start 08/02/16 at 02:30; Stop 08/02/16 at 13:28; Status DC Daptomycin 220 mg/ Sodium Chloride 50 ml @ 100 mls/hr Q24H IV ; Start 08/02/16 at 09:15; Stop 08/02/16 at 15:58; Status DC Cefepime HCl 1 gm/ Sodium Chloride 50 ml @ 100 mls/hr Q12HR IV Last administered on 08/04/16 08:10; Start 08/02/16 at 10:00; Stop 08/04/16 at 10:33 ; Status DC Daptomycin/Sodium Chloride (Cubicin/Iv Sodium Chloride 0.9% 50ml) 50 ml @ 100 mls/hr ONCE ONCE IV ; Start 08/02/16 at 10:00; Stop 08/02/16 at 10:29; Status Cancel Potassium Chloride 40 meq 40 meq 1X ONCE PO Last administered on 08/02/16 10: 17; Start 08/02/16 at 09:45; Stop 08/02/16 at 09:46; Status DC Daptomycin/Sodium Chloride (Cubicin/Iv Sodium Chloride 0.9% 50ml) 50 ml @ 100 mls/hr Q24H IV Last administered on 08/03/16 09:43; Start 08/02/16 at 10:15; Stop 08/03/16 at 10:29; Status DC Potassium Chloride (Klor-Con) 40 meq 1X ONCE PO Last administered on 12:57; Start 08/02/16 at 12:30; Stop 08/02/16 at 12:36; Status DC Morphine Sulfate 5 mg PRN Q2HRS PRN IV MODERATE TO SEVERE PAIN Last administered on 08/04/16 08:16; Start 08/02/16 at 13:30 Morphine Sulfate 8 mg PRN Q2HRS PRN IV MODERATE TO SEVERE PAIN Last administered on 08/04/16 14:58; Start 08/02/16 at 13:30 Acetaminophen 650 mg 650 mg PRN Q6HRS PRN PO TEMP GREATER THAN 100.4; Start at 14:45 Lactated Ringer's 1,000 ml @ 50 mls/hr Q20H IV ; Start 08/05/16 at 07:00; Stop 08/05/16 at 18:59 Daptomycin/Sodium Chloride (Cubicin/Iv Sodium Chloride 0.9% 50ml) 50 ml @ 100 mls/hr Q24H IV ; Start 08/03/16 at 11:00; Status Cancel Potassium Chloride (Klor-Con) 40 meq 1X ONCE PO Last administered on 17:41; Start 08/02/16 at 17:15; Stop 08/02/16 at 17:18; Status DC Potassium Chloride (Klor-Con) 40 meq BIDWMEALS PO ; Start 08/03/16 at 08:00; Stop 08/03/16 at 11:08; Status DC Morphine Sulfate 5 mg 1X ONCE IV Last administered on 08/02/16 21:45; Start 08/02/16 at 21:30; Stop 08/02/16 at 21:33; Status DC Lorazepam (Ativan) 1 mg 1X ONCE IV Last administered on 08/02/16 21:30; Start 08/02/16 at 21:30; Stop 08/02/16 at 21:33; Status DC Acetaminophen (Acetaminophen Supp) 650 mg PRN Q6HRS PRN AR MILD PAIN / TEMP Last administered on 08/05/16 05:10; Start 08/03/16 at 01:15 Albuterol/ Ipratropium (Duoneb) 3 ml RTQID NEB Last administered on 08/05/16 12:55; Start 08/03/16 at 08:00 Budesonide (Pulmicort) 0.5 mg RTBID NEB Last administered on 08/05/16 08:39; Start 08/03/16 at 08:00 Pantoprazole Sodium 40 mg 40 mg 1X ONCE IVP Last administered on 08/03/16 10: 06; Start 08/03/16 at 08:00; Stop 08/03/16 at 08:01; Status DC Daptomycin/Sodium Chloride (Cubicin/Iv Sodium Chloride 0.9% 50ml) 50 ml @ 100 mls/hr Q24H IV Last administered on 08/04/16 10:03; Start 08/04/16 at 10:00; Stop 08/04/16 at 10:33; Status DC Lorazepam (Ativan) 0.5 mg PRN Q6HRS PRN IV ANXIETY / AGITATION Last administered on 08/04/16 09:12; Start 08/03/16 at 11:15 Lorazepam (Ativan) 0.5 mg 1X ONCE IV Last administered on 08/04/16 10:00; Start 08/04/16 at 10:00; Stop 08/04/16 at 10:01; Status DC Morphine Sulfate 5 mg 1X ONCE IV Last administered on 08/04/16 10:00; Start 08/04/16 at 10:00; Stop 08/04/16 at 10:01; Status DC Lorazepam 0.5 mg 0.5 mg PRN Q4HRS PRN IV ANXIETY / AGITATION Last administered on 08/04/16 14:58; Start 08/04/16 at 10:00 Nafcillin Sodium 2 gm/Sodium Chloride 100 ml @ 200 mls/hr Q4HRS IV Last administered on 08/05/16 13:10; Start 08/04/16 at 12:00 Propofol (Diprivan) 100 ml @ As Directed STK-MED ONCE IV ; Start 08/04/16 at 16 :10; Stop 08/04/16 at 16:11; Status DC Succinylcholine Chloride (Anectine) 200 mg STK-MED ONCE .ROUTE ; Start 08/04/16 at 16:14; Stop 08/04/16 at 16:15; Status DC Succinylcholine Chloride 200 mg 200 mg 1X ONCE IV ; Start 08/04/16 at 16:45; Stop 08/04/16 at 16:46; Status DC Propofol (Diprivan) 100 ml @ 0 mls/hr CONT PRN IV SEE I/O RECORD Last administered on 08/05/16 05:08; Start 08/04/16 at 16:45 Lorazepam (Ativan) 0.5 mg 1X ONCE IV Last administered on 08/04/16 16:45; Start 08/04/16 at 16:45; Stop 08/04/16 at 16:46; Status DC Morphine Sulfate 5 mg 5 mg 1X ONCE IV Last administered on 08/04/16 16:44; Start 08/04/16 at 16:45; Stop 08/04/16 at 16:46; Status DC Fentanyl Citrate (Fentanyl 600 Mcg/30 ml JUNK DEALER) 30 ml @ 0 mls/hr CONT PRN IV PROTOCOL Last administered on 08/05/16 10:27; Start 08/04/16 at 16:45 Chlorhexidine Gluconate (Peridex) 15 ml BID MM Last administered on 08/05/16 10:09; Start 08/04/16 at 21:00 Famotidine 20 mg 20 mg BID IVP Last administered on 08/05/16 09:59; Start at 17:00 Sodium Chloride (Iv Sodium Chloride 0.9% 1000ml Bag) 1,000 ml @ 100 mls/hr Q10H IV Last administered on 08/05/16t 10:05; Start 08/05/16 at 09:00 Succinylcholine Chloride (Anectine) 200 mg STK-MED ONCE .ROUTE ; Start 08/04/16 at 16:00; Stop 08/05/16 at 12:32; Status DC Allergies Allergies: Coded Allergies: No Known Drug Allergies (Unverified , 08/02/16) ROS Review of System Unable to perform, patient intubated and sedated Physical Exam General: Other (intubated and sedated) HEENT: Atraumatic Lungs: Other (diffuse radials) Heart: Regular rate, Normal S1, Normal S2 Abdomen: Soft, No tenderness Extremities: No edema Skin: No significant lesion Neuro: Other (unable to perform, patient intubated and sedated) Psych/Mental Status: Other (sedated) MUSCULOSKELETAL: No deformity Vitals VITALS Vital Signs Date Time Temp Pulse Resp B/P Pulse Ox O2 Delivery O2 Flow Rate FiO2 08/05/16 13:00 99.8 101 35 102/66 100 Ventilator 99.8 08/04/16 11:00 4.0 Labs Labs Laboratory Tests Test 08/04/16 05:00 08/04/16 08:40 08/04/16 11:07 08/04/16 17:30 White Blood Count 19.4x10^3/uL (4.0-11.0) Red Blood Count 3.06x10^6/uL (3.50-5.40) Hemoglobin 8.9g/dL (12.0-15.5) Hematocrit 27.1% (36.0-47.0) Mean Corpuscular Volume 89fL (79-100) Mean Corpuscular Hemoglobin 29pg (25-35) Mean Corpuscular Hemoglobin Concent 33g/dL (31-37) Red Cell Distribution Width 14.4% (11.5-14.5) Platelet Count 31x10^3/uL (140-400) Neutrophils (%) (Auto) 71% (31-73) Lymphocytes (%) (Auto) 16% (24-48) Monocytes (%) (Auto) 11% (0-9) Eosinophils (%) (Auto) 1% (0-3) Basophils (%) (Auto) 1% (0-3) Neutrophils # (Auto) 13.8x10^3uL (1.8-7.7) Lymphocytes # (Auto) 3.1x10^3/uL (1.0-4.8) Monocytes # (Auto) 2.2x10^3/uL (0.0-1.1) Eosinophils # (Auto) 0.2x10^3/uL (0.0-0.7) Basophils # (Auto) 0.1x10^3/uL (0.0-0.2) Sodium Level 132mmol/L (136-145) Potassium Level 4.9mmol/L (3.5-5.1) Chloride Level 101mmol/L (98-107) Carbon Dioxide Level 25mmol/L (21-32) Anion Gap 6 (6-14) Blood Urea Nitrogen 32mg/dL (7-20) Creatinine 0.7mg/dL (0.6-1.0) Estimated GFR (Cockcroft-Gault) 91.8 BUN/Creatinine Ratio 46 (6-20) Glucose Level 107mg/dL (70-99) Calcium Level 7.7mg/dL (8.5-10.1) Total Bilirubin 1.0mg/dL (0.2-1.0) Aspartate Amino Transf (AST/SGOT) 32U/L (15-37) Alanine Aminotransferase (ALT/SGPT) 29U/L (14-59) Alkaline Phosphatase 160U/L (46-116) Total Protein 6.1g/dL (6.4-8.2) Albumin 1.4g/dL (3.4-5.0) Albumin/Globulin Ratio 0.3 (1.0-1.7) O2 Saturation 88% (92-99) 94% (92-99) 97% (92-99) Arterial Blood pH 7.51 (7.35-7.45) 7.49 (7.35-7.45) 7.42 (7.35-7.45) Arterial Blood pCO2 at Patient Temp 28mmHg (35-46) 33mmHg (35-46) 37mmHg (35-46) Arterial Blood pO2 at Patient Temp 53mmHg (75-108) 70mmHg (75-108) 96mmHg (75-108) Arterial Blood HCO3 22mmol/L (21-28) 24mmol/L (21-28) 23mmol/L (21-28) Arterial Blood Base Excess 0mmol/L (-3-3) 1mmol/L (-3-3) -1mmol/L (-3-3) FiO2 32 40 50 Test 08/05/16 05:02 08/05/16 08:30 White Blood Count 18.2x10^3/uL (4.0-11.0) Red Blood Count 2.64x10^6/uL (3.50-5.40) Hemoglobin 7.8g/dL (12.0-15.5) Hematocrit 23.4% (36.0-47.0) Mean Corpuscular Volume 89fL (79-100) Mean Corpuscular Hemoglobin 30pg (25-35) Mean Corpuscular Hemoglobin Concent 33g/dL (31-37) Red Cell Distribution Width 14.6% (11.5-14.5) Platelet Count 53x10^3/uL (140-400) Neutrophils (%) (Auto) 73% (31-73) Lymphocytes (%) (Auto) 16% (24-48) Monocytes (%) (Auto) 9% (0-9) Eosinophils (%) (Auto) 2% (0-3) Basophils (%) (Auto) 0% (0-3) Neutrophils # (Auto) 13.3x10^3uL (1.8-7.7) Lymphocytes # (Auto) 3.0x10^3/uL (1.0-4.8) Monocytes # (Auto) 1.5x10^3/uL (0.0-1.1) Eosinophils # (Auto) 0.3x10^3/uL (0.0-0.7) Basophils # (Auto) 0.0x10^3/uL (0.0-0.2) Sodium Level 135mmol/L (136-145) Potassium Level 5.4mmol/L (3.5-5.1) Chloride Level 104mmol/L (98-107) Carbon Dioxide Level 22mmol/L (21-32) Anion Gap 9 (6-14) Blood Urea Nitrogen 39mg/dL (7-20) Creatinine 0.9mg/dL (0.6-1.0) Estimated GFR (Cockcroft-Gault) 68.7 BUN/Creatinine Ratio 43 (6-20) Glucose Level 114mg/dL (70-99) Calcium Level 7.3mg/dL (8.5-10.1) Total Bilirubin 2.2mg/dL (0.2-1.0) Aspartate Amino Transf (AST/SGOT) 32U/L (15-37) Alanine Aminotransferase (ALT/SGPT) 22U/L (14-59) Alkaline Phosphatase 178U/L (46-116) Total Protein 6.3g/dL (6.4-8.2) Albumin 1.2g/dL (3.4-5.0) Albumin/Globulin Ratio 0.2 (1.0-1.7) O2 Saturation 98% (92-99) Arterial Blood pH 7.41 (7.35-7.45) Arterial Blood pCO2 at Patient Temp 31mmHg (35-46) Arterial Blood pO2 at Patient Temp 109mmHg (75-108) Arterial Blood HCO3 19mmol/L (21-28) Arterial Blood Base Excess -5mmol/L (-3-3) FiO2 40 Laboratory Tests Test 08/04/16 17:30 08/05/16 05:02 08/05/16 08:30 O2 Saturation 97% (92-99) 98% (92-99) Arterial Blood pH 7.42 (7.35-7.45) 7.41 (7.35-7.45) Arterial Blood pCO2 at Patient Temp 37mmHg (35-46) 31mmHg (35-46) Arterial Blood pO2 at Patient Temp 96mmHg (75-108) 109mmHg (75-108) Arterial Blood HCO3 23mmol/L (21-28) 19mmol/L (21-28) Arterial Blood Base Excess -1mmol/L (-3-3) -5mmol/L (-3-3) FiO2 50 40 White Blood Count 18.2x10^3/uL (4.0-11.0) Red Blood Count 2.64x10^6/uL (3.50-5.40) Hemoglobin 7.8g/dL (12.0-15.5) Hematocrit 23.4% (36.0-47.0) Mean Corpuscular Volume 89fL (79-100) Mean Corpuscular Hemoglobin 30pg (25-35) Mean Corpuscular Hemoglobin Concent 33g/dL (31-37) Red Cell Distribution Width 14.6% (11.5-14.5) Platelet Count 53x10^3/uL (140-400) Neutrophils (%) (Auto) 73% (31-73) Lymphocytes (%) (Auto) 16% (24-48) Monocytes (%) (Auto) 9% (0-9) Eosinophils (%) (Auto) 2% (0-3) Basophils (%) (Auto) 0% (0-3) Neutrophils # (Auto) 13.3x10^3uL (1.8-7.7) Lymphocytes # (Auto) 3.0x10^3/uL (1.0-4.8) Monocytes # (Auto) 1.5x10^3/uL (0.0-1.1) Eosinophils # (Auto) 0.3x10^3/uL (0.0-0.7) Basophils # (Auto) 0.0x10^3/uL (0.0-0.2) Sodium Level 135mmol/L (136-145) Potassium Level 5.4mmol/L (3.5-5.1) Chloride Level 104mmol/L (98-107) Carbon Dioxide Level 22mmol/L (21-32) Anion Gap 9 (6-14) Blood Urea Nitrogen 39mg/dL (7-20) Creatinine 0.9mg/dL (0.6-1.0) Estimated GFR (Cockcroft-Gault) 68.7 BUN/Creatinine Ratio 43 (6-20) Glucose Level 114mg/dL (70-99) Calcium Level 7.3mg/dL (8.5-10.1) Total Bilirubin 2.2mg/dL (0.2-1.0) Aspartate Amino Transf (AST/SGOT) 32U/L (15-37) Alanine Aminotransferase (ALT/SGPT) 22U/L (14-59) Alkaline Phosphatase 178U/L (46-116) Total Protein 6.3g/dL (6.4-8.2) Albumin 1.2g/dL (3.4-5.0) Albumin/Globulin Ratio 0.2 (1.0-1.7) Images Images LEFT VENTRICLE The left ventricle is normal size. There is normal left ventricular wall thickness. The left ventricular systolic function is mildly decreased. The Ejection Fraction is estimated at 45%. There is mild global hypokinesis of the left ventricle. The left ventricular diastolic function and filling is normal for age. RIGHT VENTRICLE The right ventricle is normal size. There is normal right ventricular wall thickness. The right ventricular systolic function is normal. There is a mass suspected in the right ventricle. ATRIA The left atrium size is normal. The right atrium is borderline dilated. The interatrial septum is intact with no evidence for an atrial septal defect or patent foramen ovale as noted on 2-D or Doppler imaging. AORTIC VALVE The aortic valve is mildly thickened. The aortic valve is trileaflet. Doppler and Color Flow revealed no significant aortic regurgitation. There is no significant aortic valvular stenosis. MITRAL VALVE The mitral valve leaflets are thickened. There is no evidence of mitral valve prolapse or vegetation. There is no mitral valve stenosis. Doppler and Color Flow revealed trace mitral valve regurgitation. TRICUSPID VALVE Doppler and Color Flow revealed mild to moderate tricuspid regurgitation. The pulmonary artery systolic pressure is estimated at 30-40 mmHg. There is a 3.0 X2.0 cm. mobile mass on the tricuspid valve which partially protrudes into the right ventricle. PULMONIC VALVE Doppler and Color Flow revealed trace pulmonic valvular regurgitation. There is no pulmonic valvular stenosis. GREAT VESSELS The aortic root is normal in size. The ascending aorta is normal in size. The pulmonary artery is normal. The IVC is normal in size and collapses >50% with inspiration. PERICARDIAL EFFUSION There is no evidence of significant pericardial effusion. <Conclusion> The left ventricle is normal size. The left ventricular systolic function is mildly decreased. The Ejection Fraction is estimated at 45%. There is mild global hypokinesis of the left ventricle. There is no significant aortic valvular stenosis. Doppler and Color Flow revealed no significant aortic regurgitation. Doppler and Color Flow revealed trace mitral valve regurgitation. There is a 3.0 X2.0 cm. mobile mass on the tricuspid valve which partially protrudes into the right ventricle. Doppler and Color Flow revealed mild to moderate tricuspid regurgitation. The pulmonary artery systolic pressure is estimated at 30-40 mmHg. Doppler and Color Flow revealed trace pulmonic valvular regurgitation. 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 She has a relatively large vegetation which measures 3 x 2 cm and only appears to involve the leaflets. The tricuspid regurgitation is mild to moderate. There is no annular involvement or abscess. There is no heart block. She is not in florid heart failure. She is now intubated for ARDS/sepsis. She has a history of chronic hepatitis C with some hepatosplenomegaly on CT. There is currently no urgent indication to proceed with surgery. Looking at the size of the vegetation, it is likely that she would need a tricuspid valve replacement. This should obviously be done in a sterile field. I would recommend 6 weeks of intravenous antibiotics and then reassess with repeat echo. If the vegetation is still present, then we can proceed with a tricuspid valve repair or possible replacement when the tricuspid apparatus is sterile. Considering the size of the vegetation, I don't think it will resolve only with intravenous antibiotics. Nevertheless, she is currently too sick to undergo any form of open heart surgery. MARCUS RASHID MD Aug 05, 2016 13:58
--- NOTE | 2016-08-05 14:36 | PDOC ---
PULMONARY PROGRESS NOTES Subjective off bipap, still tachypneac, confused, ng in, on 02, has pain all over, has sob , cough, nasal congestion Vitals Vital Signs Date Time Temp Pulse Resp B/P Pulse Ox O2 Delivery O2 Flow Rate FiO2 08/05/16 13:00 99.8 101 35 102/66 100 Ventilator 99.8 08/04/16 11:00 4.0 Comments ros as mentioned as above other sys otherwise neg General: Confused HEENT: Other (nc at perrl, throat clear, nose inflamed mucosa.....neck, no lap , thyromegaly) Lungs: Other (bl coarse bs) Cardiovascular: Other (tacgy) Abdomen: Soft, Non-tender, Other (hepatomegaly) Extremities: Other (edema) Skin: Warm Labs Laboratory Tests Test 08/04/16 05:00 08/04/16 08:40 08/04/16 11:07 08/04/16 17:30 White Blood Count 19.4x10^3/uL (4.0-11.0) Red Blood Count 3.06x10^6/uL (3.50-5.40) Hemoglobin 8.9g/dL (12.0-15.5) Hematocrit 27.1% (36.0-47.0) Mean Corpuscular Volume 89fL (79-100) Mean Corpuscular Hemoglobin 29pg (25-35) Mean Corpuscular Hemoglobin Concent 33g/dL (31-37) Red Cell Distribution Width 14.4% (11.5-14.5) Platelet Count 31x10^3/uL (140-400) Neutrophils (%) (Auto) 71% (31-73) Lymphocytes (%) (Auto) 16% (24-48) Monocytes (%) (Auto) 11% (0-9) Eosinophils (%) (Auto) 1% (0-3) Basophils (%) (Auto) 1% (0-3) Neutrophils # (Auto) 13.8x10^3uL (1.8-7.7) Lymphocytes # (Auto) 3.1x10^3/uL (1.0-4.8) Monocytes # (Auto) 2.2x10^3/uL (0.0-1.1) Eosinophils # (Auto) 0.2x10^3/uL (0.0-0.7) Basophils # (Auto) 0.1x10^3/uL (0.0-0.2) Sodium Level 132mmol/L (136-145) Potassium Level 4.9mmol/L (3.5-5.1) Chloride Level 101mmol/L (98-107) Carbon Dioxide Level 25mmol/L (21-32) Anion Gap 6 (6-14) Blood Urea Nitrogen 32mg/dL (7-20) Creatinine 0.7mg/dL (0.6-1.0) Estimated GFR (Cockcroft-Gault) 91.8 BUN/Creatinine Ratio 46 (6-20) Glucose Level 107mg/dL (70-99) Calcium Level 7.7mg/dL (8.5-10.1) Total Bilirubin 1.0mg/dL (0.2-1.0) Aspartate Amino Transf (AST/SGOT) 32U/L (15-37) Alanine Aminotransferase (ALT/SGPT) 29U/L (14-59) Alkaline Phosphatase 160U/L (46-116) Total Protein 6.1g/dL (6.4-8.2) Albumin 1.4g/dL (3.4-5.0) Albumin/Globulin Ratio 0.3 (1.0-1.7) O2 Saturation 88% (92-99) 94% (92-99) 97% (92-99) Arterial Blood pH 7.51 (7.35-7.45) 7.49 (7.35-7.45) 7.42 (7.35-7.45) Arterial Blood pCO2 at Patient Temp 28mmHg (35-46) 33mmHg (35-46) 37mmHg (35-46) Arterial Blood pO2 at Patient Temp 53mmHg (75-108) 70mmHg (75-108) 96mmHg (75-108) Arterial Blood HCO3 22mmol/L (21-28) 24mmol/L (21-28) 23mmol/L (21-28) Arterial Blood Base Excess 0mmol/L (-3-3) 1mmol/L (-3-3) -1mmol/L (-3-3) FiO2 32 40 50 Test 08/05/16 05:02 08/05/16 08:30 White Blood Count 18.2x10^3/uL (4.0-11.0) Red Blood Count 2.64x10^6/uL (3.50-5.40) Hemoglobin 7.8g/dL (12.0-15.5) Hematocrit 23.4% (36.0-47.0) Mean Corpuscular Volume 89fL (79-100) Mean Corpuscular Hemoglobin 30pg (25-35) Mean Corpuscular Hemoglobin Concent 33g/dL (31-37) Red Cell Distribution Width 14.6% (11.5-14.5) Platelet Count 53x10^3/uL (140-400) Neutrophils (%) (Auto) 73% (31-73) Lymphocytes (%) (Auto) 16% (24-48) Monocytes (%) (Auto) 9% (0-9) Eosinophils (%) (Auto) 2% (0-3) Basophils (%) (Auto) 0% (0-3) Neutrophils # (Auto) 13.3x10^3uL (1.8-7.7) Lymphocytes # (Auto) 3.0x10^3/uL (1.0-4.8) Monocytes # (Auto) 1.5x10^3/uL (0.0-1.1) Eosinophils # (Auto) 0.3x10^3/uL (0.0-0.7) Basophils # (Auto) 0.0x10^3/uL (0.0-0.2) Sodium Level 135mmol/L (136-145) Potassium Level 5.4mmol/L (3.5-5.1) Chloride Level 104mmol/L (98-107) Carbon Dioxide Level 22mmol/L (21-32) Anion Gap 9 (6-14) Blood Urea Nitrogen 39mg/dL (7-20) Creatinine 0.9mg/dL (0.6-1.0) Estimated GFR (Cockcroft-Gault) 68.7 BUN/Creatinine Ratio 43 (6-20) Glucose Level 114mg/dL (70-99) Calcium Level 7.3mg/dL (8.5-10.1) Total Bilirubin 2.2mg/dL (0.2-1.0) Aspartate Amino Transf (AST/SGOT) 32U/L (15-37) Alanine Aminotransferase (ALT/SGPT) 22U/L (14-59) Alkaline Phosphatase 178U/L (46-116) Total Protein 6.3g/dL (6.4-8.2) Albumin 1.2g/dL (3.4-5.0) Albumin/Globulin Ratio 0.2 (1.0-1.7) O2 Saturation 98% (92-99) Arterial Blood pH 7.41 (7.35-7.45) Arterial Blood pCO2 at Patient Temp 31mmHg (35-46) Arterial Blood pO2 at Patient Temp 109mmHg (75-108) Arterial Blood HCO3 19mmol/L (21-28) Arterial Blood Base Excess -5mmol/L (-3-3) FiO2 40 Laboratory Tests Test 08/04/16 17:30 08/05/16 05:02 08/05/16 08:30 O2 Saturation 97% (92-99) 98% (92-99) Arterial Blood pH 7.42 (7.35-7.45) 7.41 (7.35-7.45) Arterial Blood pCO2 at Patient Temp 37mmHg (35-46) 31mmHg (35-46) Arterial Blood pO2 at Patient Temp 96mmHg (75-108) 109mmHg (75-108) Arterial Blood HCO3 23mmol/L (21-28) 19mmol/L (21-28) Arterial Blood Base Excess -1mmol/L (-3-3) -5mmol/L (-3-3) FiO2 50 40 White Blood Count 18.2x10^3/uL (4.0-11.0) Red Blood Count 2.64x10^6/uL (3.50-5.40) Hemoglobin 7.8g/dL (12.0-15.5) Hematocrit 23.4% (36.0-47.0) Mean Corpuscular Volume 89fL (79-100) Mean Corpuscular Hemoglobin 30pg (25-35) Mean Corpuscular Hemoglobin Concent 33g/dL (31-37) Red Cell Distribution Width 14.6% (11.5-14.5) Platelet Count 53x10^3/uL (140-400) Neutrophils (%) (Auto) 73% (31-73) Lymphocytes (%) (Auto) 16% (24-48) Monocytes (%) (Auto) 9% (0-9) Eosinophils (%) (Auto) 2% (0-3) Basophils (%) (Auto) 0% (0-3) Neutrophils # (Auto) 13.3x10^3uL (1.8-7.7) Lymphocytes # (Auto) 3.0x10^3/uL (1.0-4.8) Monocytes # (Auto) 1.5x10^3/uL (0.0-1.1) Eosinophils # (Auto) 0.3x10^3/uL (0.0-0.7) Basophils # (Auto) 0.0x10^3/uL (0.0-0.2) Sodium Level 135mmol/L (136-145) Potassium Level 5.4mmol/L (3.5-5.1) Chloride Level 104mmol/L (98-107) Carbon Dioxide Level 22mmol/L (21-32) Anion Gap 9 (6-14) Blood Urea Nitrogen 39mg/dL (7-20) Creatinine 0.9mg/dL (0.6-1.0) Estimated GFR (Cockcroft-Gault) 68.7 BUN/Creatinine Ratio 43 (6-20) Glucose Level 114mg/dL (70-99) Calcium Level 7.3mg/dL (8.5-10.1) Total Bilirubin 2.2mg/dL (0.2-1.0) Aspartate Amino Transf (AST/SGOT) 32U/L (15-37) Alanine Aminotransferase (ALT/SGPT) 22U/L (14-59) Alkaline Phosphatase 178U/L (46-116) Total Protein 6.3g/dL (6.4-8.2) Albumin 1.2g/dL (3.4-5.0) Albumin/Globulin Ratio 0.2 (1.0-1.7) Comments cxr reviewed, b lat patchy nodular infilt Impression . IMPRESSION: 1. Acute hypoxemic respiratory failure, multifactorial in etiology. 2. Abnormal CT of the chest. 3. Bilateral pulmonary nodules, I suspect it is septic emboli. 4. Endocarditis. 5. Acute bronchospasm ? chronic obstructive pulmonary disease. 6. Leukocytosis. 7. Anemia. 8. Thrombocytopenia. 9. Hyponatremia. 10. Intravenous drug abuse. 11. Tobacco habituation. 12. mssa septicemia Plan . PT INTUBATED LAST CHRISTINE CONTINUE ANTIBX PER ID VENT SUPPORT TUBE FEEDING ANGIE CARBAJAL MD Aug 05, 2016 14:36
[2016-08-06] VITALS (28 sets, daily range): BP systolic 90–114; BP diastolic 44–69
[2016-08-06] MEDS: NAFCILLIN 2 GM in IV NORMAL SALINE 100ML 100 ML IV SCH ×7 (00:11→23:40)
[2016-08-06] MEDS: IV NORMAL SALINE 1000ML BAG 1,000 ML IV SCH ×2 (03:16→14:10)
[2016-08-06] MEDS: PROPOFOL 100 ML IV PRN ×2 (05:35→16:37)
--- NOTE | 2016-08-06 06:37 | PDOC ---
Infectious Disease Note Subjective Subjective Intubated/sedated ROS ROS Unobtainable Vital Sign Vital Signs Vital Signs Date Time Temp Pulse Resp B/P Pulse Ox O2 Delivery O2 Flow Rate FiO2 08/06/16 06:00 94 27 90/51 100 Ventilator 08/06/16 04:00 99.9 99.9 Physical Exam PHYSICAL EXAM GENERAL: Intubated HEENT: PERRL, normal conjunctivae NECK: Supple LUNGS: Clear, tachypneic HEART: S1S2, no murmur appreciated ABD: Less distended, soft, NT, NG : [place] EXT: BLE trace edema. [employer]: sedated SKIN: No rash. multiple tattoos IV: ok Labs Lab Laboratory Tests Test 08/05/16 08:30 O2 Saturation 98% (92-99) Arterial Blood pH 7.41 (7.35-7.45) Arterial Blood pCO2 at Patient Temp 31mmHg (35-46) Arterial Blood pO2 at Patient Temp 109mmHg (75-108) Arterial Blood HCO3 19mmol/L (21-28) Arterial Blood Base Excess -5mmol/L (-3-3) FiO2 40 Objective Assessment Acute Resp failure - Intubated ? developing ARDS Presumptive MSSA 08/01 sepsis - d/w micro this am Hep C IV drug use. Right-sided bacterial endocarditis. -TTE. 3.0 x 2.0cm mobile mass TV -BC NGTD, 08/01 ([facility]). Multiple pulmonary nodules Ileus Renal insufficiency. Severe thrombocytopenia. Leukocytosis. Fever. Hepatosplenomegaly on CT Plan Plan of Care Cont Nafcillin F/u Repeat Blood cults F/u labs & cultures KAYLYNN SHAY MD Aug 06, 2016 06:37
[2016-08-06 06:50] LABS: BASO % 0 % (0-3); EOS % 3 % (0-3); LYMPH # 1.2 x10^3/uL (1.0-4.8); LYMPH % 9 % (24-48); MEAN CORPUSCULAR HEMOGLOBIN 30 pg (25-35); MEAN CORPUSCULAR HGB CONC 34 g/dL (31-37); MEAN CORPUSCULAR VOLUME 89 fL (79-100); MONO % 7 % (0-9); NEUT % 81 % (31-73); PLATELET COUNT 71 x10^3/uL (140-400); RED BLOOD COUNT 2.29 x10^6/uL (3.50-5.40); RED CELL DISTRIBUTION WIDTH 14.7 % (11.5-14.5); WHITE BLOOD COUNT 13.5 x10^3/uL (4.0-11.0)
[2016-08-06 06:52] LABS: HEMOGLOBIN 6.8 g/dL (12.0-15.5)
[2016-08-06 06:53] LABS: HEMATOCRIT 20.4 % (36.0-47.0)
[2016-08-06 07:09] LABS: CALCIUM 6.5 mg/dL (8.5-10.1); CREATININE 1.1 mg/dL (0.6-1.0); GFR 54.5; POTASSIUM 4.9 mmol/L (3.5-5.1)
[2016-08-06] MEDS: BUDESONIDE 0.5 MG/2 ML NEBU. NEB SCH ×2 (07:33→19:47)
[2016-08-06] MEDS: IPRATRPIUM/ALBUTEROL 0.5/2.5MG 3 ML NEBU. NEB SCH ×4 (07:33→19:47)
[2016-08-06 07:38] LABS: HCO3 ABG 17 mmol/L (21-28); PCO2 ABG 28 mmHg (35-46); PH ABG 7.41 (7.35-7.45); PO2 ABG 154 mmHg (75-108); SAT O2 ABG 99 % (92-99)
[2016-08-06] MEDS ORDERED: FUROSEMIDE 40 MG/4 ML VIAL. IV PRN (08:00)
--- NOTE | 2016-08-06 08:05 | RAD ---
Portable chest, 08/06/2016: History: Respiratory failure Comparison is made yesterday study. The ET tube tip lies well above the sundar. An NG tube extends into the stomach. The heart size is normal. There are moderate patchy pulmonary infiltrates, most prominent peripherally. They demonstrate a somewhat nodular character with possible cavitation in some areas. The lung bases have partially cleared with better definition of the hemidiaphragms. No pneumothorax or definite pleural fluid is seen. IMPRESSION: 1. Stable tube positions. 2. Ongoing moderate patchy pulmonary infiltrates as described above, with slight improvement in the lung bases. Multifocal infection such as septic emboli appears most likely.
[2016-08-06] MEDS: FAMOTIDINE 20 MG/2 ML VIAL IVP SCH ×2 (09:15→20:26)
[2016-08-06] MEDS: CHLORHEXIDINE 0.12% 15 ML MOUTHWASH. MM SCH ×2 (09:15→20:28)
[2016-08-06 09:46] LABS: FIO2 ABG 40
--- NOTE | 2016-08-06 11:48 | PDOC ---
PULMONARY PROGRESS NOTES Subjective remains intubated/sedated Vitals Vital Signs Date Time Temp Pulse Resp B/P Pulse Ox O2 Delivery O2 Flow Rate FiO2 08/06/16 11:15 99.9 104 30 108/59 99.9 08/06/16 10:58 100 Ventilator Comments ros as mentioned as above other sys otherwise neg HEENT: Other (nc at perrl, throat clear, nose inflamed mucosa.....neck, no lap , thyromegaly) Lungs: Other (bl coarse bs) Cardiovascular: Other (tacgy) Abdomen: Soft, Non-tender, Other (hepatomegaly) Extremities: Other (edema) Skin: Warm Labs Laboratory Tests Test 08/04/16 17:30 08/05/16 05:02 08/05/16 08:30 08/06/16 06:28 O2 Saturation 97% (92-99) 98% (92-99) Arterial Blood pH 7.42 (7.35-7.45) 7.41 (7.35-7.45) Arterial Blood pCO2 at Patient Temp 37mmHg (35-46) 31mmHg (35-46) Arterial Blood pO2 at Patient Temp 96mmHg (75-108) 109mmHg (75-108) Arterial Blood HCO3 23mmol/L (21-28) 19mmol/L (21-28) Arterial Blood Base Excess -1mmol/L (-3-3) -5mmol/L (-3-3) FiO2 50 40 White Blood Count 18.2x10^3/uL (4.0-11.0) 13.5x10^3/uL (4.0-11.0) Red Blood Count 2.64x10^6/uL (3.50-5.40) 2.29x10^6/uL (3.50-5.40) Hemoglobin 7.8g/dL (12.0-15.5) 6.8g/dL (12.0-15.5) Hematocrit 23.4% (36.0-47.0) 20.4% (36.0-47.0) Mean Corpuscular Volume 89fL (79-100) 89fL (79-100) Mean Corpuscular Hemoglobin 30pg (25-35) 30pg (25-35) Mean Corpuscular Hemoglobin Concent 33g/dL (31-37) 34g/dL (31-37) Red Cell Distribution Width 14.6% (11.5-14.5) 14.7% (11.5-14.5) Platelet Count 53x10^3/uL (140-400) 71x10^3/uL (140-400) Neutrophils (%) (Auto) 73% (31-73) 81% (31-73) Lymphocytes (%) (Auto) 16% (24-48) 9% (24-48) Monocytes (%) (Auto) 9% (0-9) 7% (0-9) Eosinophils (%) (Auto) 2% (0-3) 3% (0-3) Basophils (%) (Auto) 0% (0-3) 0% (0-3) Neutrophils # (Auto) 13.3x10^3uL (1.8-7.7) 11.0x10^3uL (1.8-7.7) Lymphocytes # (Auto) 3.0x10^3/uL (1.0-4.8) 1.2x10^3/uL (1.0-4.8) Monocytes # (Auto) 1.5x10^3/uL (0.0-1.1) 1.0x10^3/uL (0.0-1.1) Eosinophils # (Auto) 0.3x10^3/uL (0.0-0.7) 0.3x10^3/uL (0.0-0.7) Basophils # (Auto) 0.0x10^3/uL (0.0-0.2) 0.0x10^3/uL (0.0-0.2) Sodium Level 135mmol/L (136-145) 140mmol/L (136-145) Potassium Level 5.4mmol/L (3.5-5.1) 4.9mmol/L (3.5-5.1) Chloride Level 104mmol/L (98-107) 110mmol/L (98-107) Carbon Dioxide Level 22mmol/L (21-32) 20mmol/L (21-32) Anion Gap 9 (6-14) 10 (6-14) Blood Urea Nitrogen 39mg/dL (7-20) 44mg/dL (7-20) Creatinine 0.9mg/dL (0.6-1.0) 1.1mg/dL (0.6-1.0) Estimated GFR (Cockcroft-Gault) 68.7 54.5 BUN/Creatinine Ratio 43 (6-20) Glucose Level 114mg/dL (70-99) 98mg/dL (70-99) Calcium Level 7.3mg/dL (8.5-10.1) 6.5mg/dL (8.5-10.1) Total Bilirubin 2.2mg/dL (0.2-1.0) Aspartate Amino Transf (AST/SGOT) 32U/L (15-37) Alanine Aminotransferase (ALT/SGPT) 22U/L (14-59) Alkaline Phosphatase 178U/L (46-116) Total Protein 6.3g/dL (6.4-8.2) Albumin 1.2g/dL (3.4-5.0) Albumin/Globulin Ratio 0.2 (1.0-1.7) Test 08/06/16 07:35 O2 Saturation 99% (92-99) Arterial Blood pH 7.41 (7.35-7.45) Arterial Blood pCO2 at Patient Temp 28mmHg (35-46) Arterial Blood pO2 at Patient Temp 154mmHg (75-108) Arterial Blood HCO3 17mmol/L (21-28) Arterial Blood Base Excess -7mmol/L (-3-3) FiO2 40 Laboratory Tests Test 08/06/16 06:28 08/06/16 07:35 White Blood Count 13.5x10^3/uL (4.0-11.0) Red Blood Count 2.29x10^6/uL (3.50-5.40) Hemoglobin 6.8g/dL (12.0-15.5) Hematocrit 20.4% (36.0-47.0) Mean Corpuscular Volume 89fL (79-100) Mean Corpuscular Hemoglobin 30pg (25-35) Mean Corpuscular Hemoglobin Concent 34g/dL (31-37) Red Cell Distribution Width 14.7% (11.5-14.5) Platelet Count 71x10^3/uL (140-400) Neutrophils (%) (Auto) 81% (31-73) Lymphocytes (%) (Auto) 9% (24-48) Monocytes (%) (Auto) 7% (0-9) Eosinophils (%) (Auto) 3% (0-3) Basophils (%) (Auto) 0% (0-3) Neutrophils # (Auto) 11.0x10^3uL (1.8-7.7) Lymphocytes # (Auto) 1.2x10^3/uL (1.0-4.8) Monocytes # (Auto) 1.0x10^3/uL (0.0-1.1) Eosinophils # (Auto) 0.3x10^3/uL (0.0-0.7) Basophils # (Auto) 0.0x10^3/uL (0.0-0.2) Sodium Level 140mmol/L (136-145) Potassium Level 4.9mmol/L (3.5-5.1) Chloride Level 110mmol/L (98-107) Carbon Dioxide Level 20mmol/L (21-32) Anion Gap 10 (6-14) Blood Urea Nitrogen 44mg/dL (7-20) Creatinine 1.1mg/dL (0.6-1.0) Estimated GFR (Cockcroft-Gault) 54.5 Glucose Level 98mg/dL (70-99) Calcium Level 6.5mg/dL (8.5-10.1) O2 Saturation 99% (92-99) Arterial Blood pH 7.41 (7.35-7.45) Arterial Blood pCO2 at Patient Temp 28mmHg (35-46) Arterial Blood pO2 at Patient Temp 154mmHg (75-108) Arterial Blood HCO3 17mmol/L (21-28) Arterial Blood Base Excess -7mmol/L (-3-3) FiO2 40 Medications Active Scripts Medications Dose Route/Sig Days Date Category No Known Medications Prior To Admisstion (Info) Each 1 Each 08/06/16 Reported Comments cxr reviewed, b lat patchy nodular infilt Impression . 1. Acute hypoxemic respiratory failure, multifactorial in etiology. 2. Increase R/R , suspect due to anemia, met acidosis 3. Bilateral pulmonary nodules, I suspect it is septic emboli. 4. Endocarditis. right sided 5. ? chronic obstructive pulmonary disease. 6. Leukocytosis. 7. Anemia. 8. Thrombocytopenia. 9. Hyponatremia. 10. Intravenous drug abuse. 11. Tobacco habituation. 12. MSSA septicemia Plan . AC mode Bicarb transfuse r/o hemolysis antibiotics per ID Once R/R improves, try off sedation d/w RN/ family CARLEY WORKMAN MD Aug 06, 2016 11:48
[2016-08-06] MEDS ORDERED: SODIUM BICARB ADULT 8.4% 50 MEQ/50 ML DISP.SYRIN. IV ONE (12:00)
--- NOTE | 2016-08-06 12:14 | PDOC ---
PROGRESS NOTES Chief Complaint Chief Complaint Sepsis ASSESSMENT AND PLAN: 1. Sepsis/endocarditis: initial blood cultures NGTD, but tricuspid valve vegetation on echo. on naficillin as per ID 2. Pneumonia: septic emboli bilat, with worsening oxygenation, on BiPAP, may need intubation. close monitoring w/ABG 3. Hyponatremia: improving; cont repletion w/IVF 4. Leukocytosis: persisting unchanged. 2/2 infect, monitor 5. Thrombocytopenia 2/2 sepsis likely: early signs of recovery. no signs of bleed. monitor, transfuse for plts <10 6. Prophylaxis: hold anticoag with low plts; start when plts recovered to >50 7. Abd distension: KUB yesterday with massive gas throughout. NGT in place. rpt KUB 8. hyperkalemia 9. acute resp failure with 1 and 2 DC PPN GIVEN high K, NS 100cc/h hold tube feeding for now given distended abd fu bcx fu with pulm, ID, card keep in ICU, intubated, sedated 2u PRBC 08/06, monitor hh daily consider wean ventilation if ok with pulm CC: 40 min History of Present Illness History of Present Illness fever daily intubated, sedated hb 6.8 Vitals Vitals Vital Signs Date Time Temp Pulse Resp B/P Pulse Ox O2 Delivery O2 Flow Rate FiO2 08/06/16 11:15 99.9 104 30 108/59 99.9 08/06/16 10:58 100 Ventilator Physical Exam Physical Exam INTUBATED ,sedated General: Other (intubated and sedated) Heart: Regular rate, Normal S1, Normal S2 Lungs: Other (bl coarse bs) Abdomen: Soft, No tenderness Extremities: No edema Skin: No significant lesion Labs LABS Laboratory Tests Test 08/06/16 06:28 08/06/16 07:35 White Blood Count 13.5x10^3/uL (4.0-11.0) Red Blood Count 2.29x10^6/uL (3.50-5.40) Hemoglobin 6.8g/dL (12.0-15.5) Hematocrit 20.4% (36.0-47.0) Mean Corpuscular Volume 89fL (79-100) Mean Corpuscular Hemoglobin 30pg (25-35) Mean Corpuscular Hemoglobin Concent 34g/dL (31-37) Red Cell Distribution Width 14.7% (11.5-14.5) Platelet Count 71x10^3/uL (140-400) Neutrophils (%) (Auto) 81% (31-73) Lymphocytes (%) (Auto) 9% (24-48) Monocytes (%) (Auto) 7% (0-9) Eosinophils (%) (Auto) 3% (0-3) Basophils (%) (Auto) 0% (0-3) Neutrophils # (Auto) 11.0x10^3uL (1.8-7.7) Lymphocytes # (Auto) 1.2x10^3/uL (1.0-4.8) Monocytes # (Auto) 1.0x10^3/uL (0.0-1.1) Eosinophils # (Auto) 0.3x10^3/uL (0.0-0.7) Basophils # (Auto) 0.0x10^3/uL (0.0-0.2) Sodium Level 140mmol/L (136-145) Potassium Level 4.9mmol/L (3.5-5.1) Chloride Level 110mmol/L (98-107) Carbon Dioxide Level 20mmol/L (21-32) Anion Gap 10 (6-14) Blood Urea Nitrogen 44mg/dL (7-20) Creatinine 1.1mg/dL (0.6-1.0) Estimated GFR (Cockcroft-Gault) 54.5 Glucose Level 98mg/dL (70-99) Calcium Level 6.5mg/dL (8.5-10.1) O2 Saturation 99% (92-99) Arterial Blood pH 7.41 (7.35-7.45) Arterial Blood pCO2 at Patient Temp 28mmHg (35-46) Arterial Blood pO2 at Patient Temp 154mmHg (75-108) Arterial Blood HCO3 17mmol/L (21-28) Arterial Blood Base Excess -7mmol/L (-3-3) FiO2 40 Review of Systems Review of Systems no chills, Comment Review of Relevant I have reviewed the following items shanta (where applicable) has been applied. Labs Laboratory Tests Test 08/04/16 17:30 08/05/16 05:02 08/05/16 08:30 08/06/16 06:28 O2 Saturation 97% (92-99) 98% (92-99) Arterial Blood pH 7.42 (7.35-7.45) 7.41 (7.35-7.45) Arterial Blood pCO2 at Patient Temp 37mmHg (35-46) 31mmHg (35-46) Arterial Blood pO2 at Patient Temp 96mmHg (75-108) 109mmHg (75-108) Arterial Blood HCO3 23mmol/L (21-28) 19mmol/L (21-28) Arterial Blood Base Excess -1mmol/L (-3-3) -5mmol/L (-3-3) FiO2 50 40 White Blood Count 18.2x10^3/uL (4.0-11.0) 13.5x10^3/uL (4.0-11.0) Red Blood Count 2.64x10^6/uL (3.50-5.40) 2.29x10^6/uL (3.50-5.40) Hemoglobin 7.8g/dL (12.0-15.5) 6.8g/dL (12.0-15.5) Hematocrit 23.4% (36.0-47.0) 20.4% (36.0-47.0) Mean Corpuscular Volume 89fL (79-100) 89fL (79-100) Mean Corpuscular Hemoglobin 30pg (25-35) 30pg (25-35) Mean Corpuscular Hemoglobin Concent 33g/dL (31-37) 34g/dL (31-37) Red Cell Distribution Width 14.6% (11.5-14.5) 14.7% (11.5-14.5) Platelet Count 53x10^3/uL (140-400) 71x10^3/uL (140-400) Neutrophils (%) (Auto) 73% (31-73) 81% (31-73) Lymphocytes (%) (Auto) 16% (24-48) 9% (24-48) Monocytes (%) (Auto) 9% (0-9) 7% (0-9) Eosinophils (%) (Auto) 2% (0-3) 3% (0-3) Basophils (%) (Auto) 0% (0-3) 0% (0-3) Neutrophils # (Auto) 13.3x10^3uL (1.8-7.7) 11.0x10^3uL (1.8-7.7) Lymphocytes # (Auto) 3.0x10^3/uL (1.0-4.8) 1.2x10^3/uL (1.0-4.8) Monocytes # (Auto) 1.5x10^3/uL (0.0-1.1) 1.0x10^3/uL (0.0-1.1) Eosinophils # (Auto) 0.3x10^3/uL (0.0-0.7) 0.3x10^3/uL (0.0-0.7) Basophils # (Auto) 0.0x10^3/uL (0.0-0.2) 0.0x10^3/uL (0.0-0.2) Sodium Level 135mmol/L (136-145) 140mmol/L (136-145) Potassium Level 5.4mmol/L (3.5-5.1) 4.9mmol/L (3.5-5.1) Chloride Level 104mmol/L (98-107) 110mmol/L (98-107) Carbon Dioxide Level 22mmol/L (21-32) 20mmol/L (21-32) Anion Gap 9 (6-14) 10 (6-14) Blood Urea Nitrogen 39mg/dL (7-20) 44mg/dL (7-20) Creatinine 0.9mg/dL (0.6-1.0) 1.1mg/dL (0.6-1.0) Estimated GFR (Cockcroft-Gault) 68.7 54.5 BUN/Creatinine Ratio 43 (6-20) Glucose Level 114mg/dL (70-99) 98mg/dL (70-99) Calcium Level 7.3mg/dL (8.5-10.1) 6.5mg/dL (8.5-10.1) Total Bilirubin 2.2mg/dL (0.2-1.0) Aspartate Amino Transf (AST/SGOT) 32U/L (15-37) Alanine Aminotransferase (ALT/SGPT) 22U/L (14-59) Alkaline Phosphatase 178U/L (46-116) Total Protein 6.3g/dL (6.4-8.2) Albumin 1.2g/dL (3.4-5.0) Albumin/Globulin Ratio 0.2 (1.0-1.7) Test 08/06/16 07:35 O2 Saturation 99% (92-99) Arterial Blood pH 7.41 (7.35-7.45) Arterial Blood pCO2 at Patient Temp 28mmHg (35-46) Arterial Blood pO2 at Patient Temp 154mmHg (75-108) Arterial Blood HCO3 17mmol/L (21-28) Arterial Blood Base Excess -7mmol/L (-3-3) FiO2 40 Laboratory Tests Test 08/06/16 06:28 08/06/16 07:35 White Blood Count 13.5x10^3/uL (4.0-11.0) Red Blood Count 2.29x10^6/uL (3.50-5.40) Hemoglobin 6.8g/dL (12.0-15.5) Hematocrit 20.4% (36.0-47.0) Mean Corpuscular Volume 89fL (79-100) Mean Corpuscular Hemoglobin 30pg (25-35) Mean Corpuscular Hemoglobin Concent 34g/dL (31-37) Red Cell Distribution Width 14.7% (11.5-14.5) Platelet Count 71x10^3/uL (140-400) Neutrophils (%) (Auto) 81% (31-73) Lymphocytes (%) (Auto) 9% (24-48) Monocytes (%) (Auto) 7% (0-9) Eosinophils (%) (Auto) 3% (0-3) Basophils (%) (Auto) 0% (0-3) Neutrophils # (Auto) 11.0x10^3uL (1.8-7.7) Lymphocytes # (Auto) 1.2x10^3/uL (1.0-4.8) Monocytes # (Auto) 1.0x10^3/uL (0.0-1.1) Eosinophils # (Auto) 0.3x10^3/uL (0.0-0.7) Basophils # (Auto) 0.0x10^3/uL (0.0-0.2) Sodium Level 140mmol/L (136-145) Potassium Level 4.9mmol/L (3.5-5.1) Chloride Level 110mmol/L (98-107) Carbon Dioxide Level 20mmol/L (21-32) Anion Gap 10 (6-14) Blood Urea Nitrogen 44mg/dL (7-20) Creatinine 1.1mg/dL (0.6-1.0) Estimated GFR (Cockcroft-Gault) 54.5 Glucose Level 98mg/dL (70-99) Calcium Level 6.5mg/dL (8.5-10.1) O2 Saturation 99% (92-99) Arterial Blood pH 7.41 (7.35-7.45) Arterial Blood pCO2 at Patient Temp 28mmHg (35-46) Arterial Blood pO2 at Patient Temp 154mmHg (75-108) Arterial Blood HCO3 17mmol/L (21-28) Arterial Blood Base Excess -7mmol/L (-3-3) FiO2 40 Microbiology 08/05/16 Blood Culture - Final, Complete Medications Current Medications Amino Acids/ Glycerin/ Electrolytes (Procalamine) 1,000 ml @ 100 mls/hr Q10H IV Last administered on 08/05/16 02:40; Start 08/02/16 at 03:00; Stop at 08:50; Status DC Morphine Sulfate 2 mg 2 mg PRN Q2HR PRN IV SEVERE PAIN Last administered on 11:59; Start 08/02/16 at 02:30; Stop 08/02/16 at 13:28; Status DC Daptomycin 220 mg/ Sodium Chloride 50 ml @ 100 mls/hr Q24H IV ; Start 08/02/16 at 09:15; Stop 08/02/16 at 15:58; Status DC Cefepime HCl 1 gm/ Sodium Chloride 50 ml @ 100 mls/hr Q12HR IV Last administered on 08/04/16 08:10; Start 08/02/16 at 10:00; Stop 08/04/16 at 10:33 ; Status DC Daptomycin/Sodium Chloride (Cubicin/Iv Sodium Chloride 0.9% 50ml) 50 ml @ 100 mls/hr ONCE ONCE IV ; Start 08/02/16 at 10:00; Stop 08/02/16 at 10:29; Status Cancel Potassium Chloride 40 meq 40 meq 1X ONCE PO Last administered on 08/02/16 10: 17; Start 08/02/16 at 09:45; Stop 08/02/16 at 09:46; Status DC Daptomycin/Sodium Chloride (Cubicin/Iv Sodium Chloride 0.9% 50ml) 50 ml @ 100 mls/hr Q24H IV Last administered on 08/03/16 09:43; Start 08/02/16 at 10:15; Stop 08/03/16 at 10:29; Status DC Potassium Chloride (Klor-Con) 40 meq 1X ONCE PO Last administered on 12:57; Start 08/02/16 at 12:30; Stop 08/02/16 at 12:36; Status DC Morphine Sulfate 5 mg PRN Q2HRS PRN IV MODERATE TO SEVERE PAIN Last administered on 08/04/16 08:16; Start 08/02/16 at 13:30 Morphine Sulfate 8 mg PRN Q2HRS PRN IV MODERATE TO SEVERE PAIN Last administered on 08/04/16 14:58; Start 08/02/16 at 13:30 Acetaminophen 650 mg 650 mg PRN Q6HRS PRN PO TEMP GREATER THAN 100.4; Start at 14:45 Lactated Ringer's 1,000 ml @ 50 mls/hr Q20H IV ; Start 08/05/16 at 07:00; Stop 08/05/16 at 18:13; Status DC Daptomycin/Sodium Chloride (Cubicin/Iv Sodium Chloride 0.9% 50ml) 50 ml @ 100 mls/hr Q24H IV ; Start 08/03/16 at 11:00; Status Cancel Potassium Chloride (Klor-Con) 40 meq 1X ONCE PO Last administered on 17:41; Start 08/02/16 at 17:15; Stop 08/02/16 at 17:18; Status DC Potassium Chloride (Klor-Con) 40 meq BIDWMEALS PO ; Start 08/03/16 at 08:00; Stop 08/03/16 at 11:08; Status DC Morphine Sulfate 5 mg 1X ONCE IV Last administered on 08/02/16 21:45; Start 08/02/16 at 21:30; Stop 08/02/16 at 21:33; Status DC Lorazepam (Ativan) 1 mg 1X ONCE IV Last administered on 08/02/16 21:30; Start 08/02/16 at 21:30; Stop 08/02/16 at 21:33; Status DC Acetaminophen (Acetaminophen Supp) 650 mg PRN Q6HRS PRN [place] MILD PAIN / TEMP Last administered on 08/05/16 05:10; Start 08/03/16 at 01:15 Albuterol/ Ipratropium (Duoneb) 3 ml RTQID NEB Last administered on 08/06/16 12:07; Start 08/03/16 at 08:00 Budesonide (Pulmicort) 0.5 mg RTBID NEB Last administered on 08/06/16 07:33; Start 08/03/16 at 08:00 Pantoprazole Sodium 40 mg 40 mg 1X ONCE IVP Last administered on 08/03/16 10: 06; Start 08/03/16 at 08:00; Stop 08/03/16 at 08:01; Status DC Daptomycin/Sodium Chloride (Cubicin/Iv Sodium Chloride 0.9% 50ml) 50 ml @ 100 mls/hr Q24H IV Last administered on 08/04/16 10:03; Start 08/04/16 at 10:00; Stop 08/04/16 at 10:33; Status DC Lorazepam (Ativan) 0.5 mg PRN Q6HRS PRN IV ANXIETY / AGITATION Last administered on 08/04/16 09:12; Start 08/03/16 at 11:15 Lorazepam (Ativan) 0.5 mg 1X ONCE IV Last administered on 08/04/16 10:00; Start 08/04/16 at 10:00; Stop 08/04/16 at 10:01; Status DC Morphine Sulfate 5 mg 1X ONCE IV Last administered on 08/04/16 10:00; Start 08/04/16 at 10:00; Stop 08/04/16 at 10:01; Status DC Lorazepam 0.5 mg 0.5 mg PRN Q4HRS PRN IV ANXIETY / AGITATION Last administered on 08/05/16 20:09; Start 08/04/16 at 10:00 Nafcillin Sodium 2 gm/Sodium Chloride 100 ml @ 200 mls/hr Q4HRS IV Last administered on 08/06/16 12:06; Start 08/04/16 at 12:00 Propofol (Diprivan) 100 ml @ As Directed STK-MED ONCE IV ; Start 08/04/16 at 16 :10; Stop 08/04/16 at 16:11; Status DC Succinylcholine Chloride (Anectine) 200 mg STK-MED ONCE .ROUTE ; Start 08/04/16 at 16:14; Stop 08/04/16 at 16:15; Status DC Succinylcholine Chloride 200 mg 200 mg 1X ONCE IV ; Start 08/04/16 at 16:45; Stop 08/04/16 at 16:46; Status DC Propofol (Diprivan) 100 ml @ 0 mls/hr CONT PRN IV SEE I/O RECORD Last administered on 08/06/16 05:35; Start 08/04/16 at 16:45 Lorazepam (Ativan) 0.5 mg 1X ONCE IV Last administered on 08/04/16 16:45; Start 08/04/16 at 16:45; Stop 08/04/16 at 16:46; Status DC Morphine Sulfate 5 mg 5 mg 1X ONCE IV Last administered on 08/04/16 16:44; Start 08/04/16 at 16:45; Stop 08/04/16 at 16:46; Status DC Fentanyl Citrate (Fentanyl 600 Mcg/30 ml CTRS) 30 ml @ 0 mls/hr CONT PRN IV PROTOCOL Last administered on 08/06/16 05:36; Start 08/04/16 at 16:45 Chlorhexidine Gluconate (Peridex) 15 ml BID MM Last administered on 08/06/16 09:15; Start 08/04/16 at 21:00 Famotidine 20 mg 20 mg BID IVP Last administered on 08/06/16 09:15; Start at 17:00 Sodium Chloride (Iv Sodium Chloride 0.9% 1000ml Bag) 1,000 ml @ 100 mls/hr Q10H IV Last administered on 08/06/16 03:16; Start 08/05/16 at 09:00 Succinylcholine Chloride (Anectine) 200 mg STK-MED ONCE .ROUTE ; Start 08/04/16 at 16:00; Stop 08/05/16 at 12:32; Status DC Lorazepam (Ativan) 2 mg 1X ONCE IV Last administered on 08/05/16t 20:43; Start 08/05/16 at 21:00; Stop 08/05/16 at 21:01; Status DC Furosemide (Lasix) 40 mg 1X PRN PRN IV blood transfusion; Start 08/06/16 at 08: 00; Stop 08/07/16 at 07:59 Sodium Bicarbonate 50 meq 1X ONCE IV ; Start 08/06/16 at 12:00; Stop 08/06/16 at 12:01; Status DC Active Scripts Active Reported No Known Medications Prior To Admisstion (Info) Each 1 Each Vitals/I & O Vital Sign - Last 24 Hours 08/05/16 08/05/16 08/05/16 08/05/16 12:55 13:00 14:00 15:00 Temp 99.8 99.8 Pulse 101 104 106 Resp 35 30 30 B/P 102/66 103/52 104/54 Pulse Ox 100 100 100 100 O2 Delivery Ventilator Ventilator Ventilator Ventilator 08/05/16 08/05/16 08/05/16 08/05/16 16:00 16:00 16:26 16:55 Pulse 105 Resp 28 34 B/P 93/60 Pulse Ox 100 100 100 O2 Delivery Mechanical Ventilator Ventilator Ventilator Ventilator 08/05/16 08/05/16 08/05/16 08/05/16 17:00 17:00 19:00 20:00 Temp 100.0 100.0 100.0 100.0 Pulse 102 102 104 Resp 30 30 40 B/P 94/55 82/43 108/59 Pulse Ox 98 100 100 100 O2 Delivery Ventilator Ventilator Ventilator 08/05/16 08/05/16 08/05/16 08/05/16 20:00 20:14 21:00 22:00 Pulse 100 108 Resp 29 30 B/P 87/54 95/47 Pulse Ox 100 100 100 O2 Delivery Mechanical Ventilator Ventilator Ventilator Ventilator 08/05/16 08/05/16 08/05/16 08/06/16 22:49 23:00 23:02 00:00 Pulse 102 Resp 28 40 B/P 83/43 Pulse Ox 100 100 O2 Delivery Ventilator Ventilator Ventilator Mechanical Ventilator 08/06/16 08/06/16 08/06/16 08/06/16 00:00 01:00 01:05 02:00 Temp 100.4 100.4 Pulse 101 106 102 Resp 29 28 28 B/P 98/46 97/50 105/58 Pulse Ox 100 100 100 100 O2 Delivery Ventilator Ventilator Ventilator Ventilator 08/06/16 08/06/16 08/06/16 08/06/16 03:00 03:00 04:00 04:00 Temp 99.9 99.9 Pulse 98 94 Resp 30 28 B/P 96/56 96/54 Pulse Ox 100 100 100 O2 Delivery Ventilator Ventilator Mechanical Ventilator Ventilator 08/06/16 08/06/16 08/06/16 08/06/16 05:00 05:25 05:36 06:00 Pulse 94 94 Resp 27 28 27 B/P 91/49 90/51 Pulse Ox 100 100 100 100 O2 Delivery Ventilator Ventilator Ventilator Ventilator 08/06/16 08/06/16 08/06/16 08/06/16 07:00 07:34 08:00 08:04 Temp 99.9 99.9 Pulse 93 94 Resp 27 27 B/P 96/48 94/44 Pulse Ox 100 100 100 O2 Delivery Ventilator Ventilator Ventilator Mechanical Ventilator 08/06/16 08/06/16 08/06/16 08/06/16 09:00 10:00 10:56 10:58 Temp 99.9 99.9 99.9 99.9 Pulse 95 105 104 104 Resp 26 28 31 31 B/P 97/49 101/54 105/59 105/69 Pulse Ox 100 100 100 O2 Delivery Ventilator Ventilator Ventilator 08/06/16 11:15 Temp 99.9 99.9 Pulse 104 Resp 30 B/P 108/59 Intake and Output 08/05/16 08/05/16 08/06/16 15:00 23:00 07:00 Intake Total 200 ml 1872 ml 1614 ml Output Total 900 ml 600 ml 655 ml Balance -700 ml 1272 ml 959 ml Nutrition Consultation Dietary Evaluation: Recommendations by RD: PPN/TPN Comments: Pt currently NPO, unable to initiate TF's d/t abdominal distention and possible ileus Rec. resume the PPN at 80 ml/hr (potassium labs improved) Consider TPN if able to place PICC line Expected Outcomes/Goals: initiation of nutrition support Interpretation of weight loss: >7.5% in 3 months Malnutrition Findings: Food and Nutrition Intake (Mod: <75% est energy req 7days Body Fat Depletion (Non Severe: Mild Depletion Reduced Fruit Distributor Strength: N/A Reduced Fruit Distributor Strength (Non-Sev: N/A Malnutrition related to morbid: No Weight Status: Appropriate Fluid Accumulation (N/A): N/A MAYKEL BAUTISTA MD Aug 06, 2016 12:14
[2016-08-07] VITALS (24 sets, daily range): BP systolic 83–146; BP diastolic 53–81
[2016-08-07] MEDS: PROPOFOL 100 ML IV PRN ×2 (02:16→18:55)
[2016-08-07] MEDS: IV NORMAL SALINE 1000ML BAG 1,000 ML IV SCH (04:35)
--- NOTE | 2016-08-07 07:06 | PDOC ---
Infectious Disease Note Subjective Subjective Intubated/sedated but opens eyes ROS ROS Unobtainable Vital Sign Vital Signs Vital Signs Date Time Temp Pulse Resp B/P Pulse Ox O2 Delivery O2 Flow Rate FiO2 08/07/16 06:33 26 100 Ventilator 08/07/16 06:00 96 103/55 08/07/16 04:00 99.6 99.6 Physical Exam PHYSICAL EXAM GENERAL: NAD, Awakens, Intubated HEENT: PERRL, OC/OP - poor dentition NECK: Supple, no JVD, no LN LUNGS: Clear HEART: S1S2, no gallop, no murmur ABD: Soft, NT, no organomegaly, no rebound, mild distension [place] EXT: No edema, no cyanosis PAIRER: Alert, SKIN: No rash IV: ok Labs Lab Laboratory Tests Test 08/06/16 07:35 O2 Saturation 99% (92-99) Arterial Blood pH 7.41 (7.35-7.45) Arterial Blood pCO2 at Patient Temp 28mmHg (35-46) Arterial Blood pO2 at Patient Temp 154mmHg (75-108) Arterial Blood HCO3 17mmol/L (21-28) Arterial Blood Base Excess -7mmol/L (-3-3) FiO2 40 Objective Assessment Acute anemia 2 units PRBCs 08/06 Acute Resp failure - Intubated ? developing ARDS Presumptive MSSA 08/01 sepsis - repeat 08/05 Staph Hep C IV drug use. Right-sided bacterial endocarditis. -TTE. 3.0 x 2.0cm mobile mass TV -BC NGTD, 08/01 ([facility]). Multiple pulmonary nodules Ileus Renal insufficiency. Severe thrombocytopenia. Leukocytosis. Fever. Hepatosplenomegaly on CT Plan Plan of Care Cont Nafcillin F/u Repeat Blood cults Repeat cults today F/u labs & cultures KAYLYNN SHAY MD Aug 07, 2016 07:06
--- NOTE | 2016-08-07 07:51 | RAD ---
Portable chest, 08/07/2016: History: Respiratory failure Comparison is made to yesterday's study. The ET tube and NG tube remain in place in satisfactory positions. The heart size is unchanged. There are persistent patchy bilateral pulmonary opacities with no improvement. Some of these demonstrate a nodular appearance with possible cavitation, again raising the possibility of septic emboli. Aeration of the right lung base has worsened slightly. There may be pleural fluid contributing to this opacity. There is no evidence of pneumothorax. IMPRESSION: 1. Stable tube positions. 2. Moderate ongoing bilateral pulmonary infiltrates with slight interval worsening in the right base.
[2016-08-07] MEDS: IPRATRPIUM/ALBUTEROL 0.5/2.5MG 3 ML NEBU. NEB SCH ×4 (08:00→20:47)
[2016-08-07] MEDS: NAFCILLIN 2 GM in IV NORMAL SALINE 100ML 100 ML IV SCH ×5 (08:00→19:52)
[2016-08-07] MEDS: BUDESONIDE 0.5 MG/2 ML NEBU. NEB SCH ×2 (08:00→20:48)
[2016-08-07 08:35] LABS: BASO % 0 % (0-3); EOS % 2 % (0-3); HEMATOCRIT 24.2 % (36.0-47.0); HEMOGLOBIN 8.6 g/dL (12.0-15.5); LYMPH % 7 % (24-48); MEAN CORPUSCULAR HEMOGLOBIN 30 pg (25-35); MEAN CORPUSCULAR HGB CONC 35 g/dL (31-37); MEAN CORPUSCULAR VOLUME 85 fL (79-100); MONO % 7 % (0-9); NEUT % 85 % (31-73); PLATELET COUNT 108 x10^3/uL (140-400); RED BLOOD COUNT 2.84 x10^6/uL (3.50-5.40); RED CELL DISTRIBUTION WIDTH 16.9 % (11.5-14.5); WHITE BLOOD COUNT 15.6 x10^3/uL (4.0-11.0)
[2016-08-07 08:39] LABS: CALCIUM 6.9 mg/dL (8.5-10.1); GFR 60.8; POTASSIUM 3.8 mmol/L (3.5-5.1)
[2016-08-07] MEDS: FAMOTIDINE 20 MG/2 ML VIAL IVP SCH ×2 (09:16→20:46)
[2016-08-07] MEDS: CHLORHEXIDINE 0.12% 15 ML MOUTHWASH. MM SCH ×2 (09:16→20:48)
[2016-08-07 09:31] LABS: HCO3 ABG 19 mmol/L (21-28); PO2 ABG 134 mmHg (75-108); SAT O2 ABG 98 % (92-99)
--- NOTE | 2016-08-07 09:31 | RAD ---
Indication ileus. A single KUB was obtained. Comparison is made to a study 3 days earlier. There is no distention of the large bowel on today's exam. Nasogastric tube remains coiled in the body of the stomach. The lung bases are grossly clear. IMPRESSION: Large bowel distention, seen on the previous examination, has resolved.
[2016-08-07 09:46] LABS: PCO2 ABG 32 mmHg (35-46); PH ABG 7.39 (7.35-7.45)
[2016-08-07 09:49] LABS: FIO2 ABG 40
--- NOTE | 2016-08-07 12:11 | PDOC ---
PROGRESS NOTES Chief Complaint Chief Complaint Sepsis ASSESSMENT AND PLAN: 1. Sepsis/endocarditis: initial blood cultures NGTD, but tricuspid valve vegetation on echo. on naficillin as per ID 2. Pneumonia: septic emboli bilat, with worsening oxygenation, on BiPAP, may need intubation. close monitoring w/ABG 3. Hyponatremia, hypernatremia 4. Leukocytosis: persisting unchanged. 2/2 infect, monitor 5. Thrombocytopenia 2/2 sepsis likely: early signs of recovery. no signs of bleed. monitor, transfuse for plts <10 6. Prophylaxis: hold anticoag with low plts; start when plts recovered to >50 7. Abd distension: KUB yesterday with massive gas throughout. NGT in place. rpt KUB 8. hyperkalemia 9. acute resp failure with 1 and 2 10. + bacteremia change IVF to PPN NGT feeding trial 08/07, repeated KUB ileus resolved hold tube feeding for now given distended abd fu bcx, +staph aureus fu with pulm, ID, card keep in ICU, intubated, sedated 2u PRBC 08/06, monitor hh daily consider wean ventilation if ok with pulm CC: 40 min History of Present Illness History of Present Illness fever daily intubated, sedated hb 6.8 better to 8 with 2u PRBC 08/06 Vitals Vitals Vital Signs Date Time Temp Pulse Resp B/P Pulse Ox O2 Delivery O2 Flow Rate FiO2 08/07/16 11:35 100 Ventilator 08/07/16 06:33 26 08/07/16 06:00 96 103/55 08/07/16 04:00 99.6 99.6 Physical Exam Physical Exam INTUBATED ,sedated General: Other (intubated and sedated) Heart: Regular rate, Normal S1, Normal S2 Lungs: Other (bl coarse bs) Abdomen: Soft, No tenderness Extremities: No edema Skin: No significant lesion Labs LABS Laboratory Tests Test 08/07/16 08:00 08/07/16 09:25 White Blood Count 15.6x10^3/uL (4.0-11.0) Red Blood Count 2.84x10^6/uL (3.50-5.40) Hemoglobin 8.6g/dL (12.0-15.5) Hematocrit 24.2% (36.0-47.0) Mean Corpuscular Volume 85fL (79-100) Mean Corpuscular Hemoglobin 30pg (25-35) Mean Corpuscular Hemoglobin Concent 35g/dL (31-37) Red Cell Distribution Width 16.9% (11.5-14.5) Platelet Count 108x10^3/uL (140-400) Neutrophils (%) (Auto) 85% (31-73) Lymphocytes (%) (Auto) 7% (24-48) Monocytes (%) (Auto) 7% (0-9) Eosinophils (%) (Auto) 2% (0-3) Basophils (%) (Auto) 0% (0-3) Neutrophils # (Auto) 13.2x10^3uL (1.8-7.7) Lymphocytes # (Auto) 1.0x10^3/uL (1.0-4.8) Monocytes # (Auto) 1.0x10^3/uL (0.0-1.1) Eosinophils # (Auto) 0.3x10^3/uL (0.0-0.7) Basophils # (Auto) 0.0x10^3/uL (0.0-0.2) Sodium Level 146mmol/L (136-145) Potassium Level 3.8mmol/L (3.5-5.1) Chloride Level 114mmol/L (98-107) Carbon Dioxide Level 20mmol/L (21-32) Anion Gap 12 (6-14) Blood Urea Nitrogen 39mg/dL (7-20) Creatinine 1.0mg/dL (0.6-1.0) Estimated GFR (Cockcroft-Gault) 60.8 Glucose Level 99mg/dL (70-99) Calcium Level 6.9mg/dL (8.5-10.1) Lactate Dehydrogenase 253U/L (81-234) O2 Saturation 98% (92-99) Arterial Blood pH 7.39 (7.35-7.45) Arterial Blood pCO2 at Patient Temp 32mmHg (35-46) Arterial Blood pO2 at Patient Temp 134mmHg (75-108) Arterial Blood HCO3 19mmol/L (21-28) Arterial Blood Base Excess -6mmol/L (-3-3) FiO2 40 Review of Systems Review of Systems no chills Comment Review of Relevant I have reviewed the following items shanta (where applicable) has been applied. Labs Laboratory Tests Test 08/06/16 06:28 08/06/16 07:35 08/07/16 08:00 08/07/16 09:25 White Blood Count 13.5x10^3/uL (4.0-11.0) 15.6x10^3/uL (4.0-11.0) Red Blood Count 2.29x10^6/uL (3.50-5.40) 2.84x10^6/uL (3.50-5.40) Hemoglobin 6.8g/dL (12.0-15.5) 8.6g/dL (12.0-15.5) Hematocrit 20.4% (36.0-47.0) 24.2% (36.0-47.0) Mean Corpuscular Volume 89fL (79-100) 85fL (79-100) Mean Corpuscular Hemoglobin 30pg (25-35) 30pg (25-35) Mean Corpuscular Hemoglobin Concent 34g/dL (31-37) 35g/dL (31-37) Red Cell Distribution Width 14.7% (11.5-14.5) 16.9% (11.5-14.5) Platelet Count 71x10^3/uL (140-400) 108x10^3/uL (140-400) Neutrophils (%) (Auto) 81% (31-73) 85% (31-73) Lymphocytes (%) (Auto) 9% (24-48) 7% (24-48) Monocytes (%) (Auto) 7% (0-9) 7% (0-9) Eosinophils (%) (Auto) 3% (0-3) 2% (0-3) Basophils (%) (Auto) 0% (0-3) 0% (0-3) Neutrophils # (Auto) 11.0x10^3uL (1.8-7.7) 13.2x10^3uL (1.8-7.7) Lymphocytes # (Auto) 1.2x10^3/uL (1.0-4.8) 1.0x10^3/uL (1.0-4.8) Monocytes # (Auto) 1.0x10^3/uL (0.0-1.1) 1.0x10^3/uL (0.0-1.1) Eosinophils # (Auto) 0.3x10^3/uL (0.0-0.7) 0.3x10^3/uL (0.0-0.7) Basophils # (Auto) 0.0x10^3/uL (0.0-0.2) 0.0x10^3/uL (0.0-0.2) Sodium Level 140mmol/L (136-145) 146mmol/L (136-145) Potassium Level 4.9mmol/L (3.5-5.1) 3.8mmol/L (3.5-5.1) Chloride Level 110mmol/L (98-107) 114mmol/L (98-107) Carbon Dioxide Level 20mmol/L (21-32) 20mmol/L (21-32) Anion Gap 10 (6-14) 12 (6-14) Blood Urea Nitrogen 44mg/dL (7-20) 39mg/dL (7-20) Creatinine 1.1mg/dL (0.6-1.0) 1.0mg/dL (0.6-1.0) Estimated GFR (Cockcroft-Gault) 54.5 60.8 Glucose Level 98mg/dL (70-99) 99mg/dL (70-99) Calcium Level 6.5mg/dL (8.5-10.1) 6.9mg/dL (8.5-10.1) O2 Saturation 99% (92-99) 98% (92-99) Arterial Blood pH 7.41 (7.35-7.45) 7.39 (7.35-7.45) Arterial Blood pCO2 at Patient Temp 28mmHg (35-46) 32mmHg (35-46) Arterial Blood pO2 at Patient Temp 154mmHg (75-108) 134mmHg (75-108) Arterial Blood HCO3 17mmol/L (21-28) 19mmol/L (21-28) Arterial Blood Base Excess -7mmol/L (-3-3) -6mmol/L (-3-3) FiO2 40 40 Lactate Dehydrogenase 253U/L (81-234) Laboratory Tests Test 08/07/16 08:00 08/07/16 09:25 White Blood Count 15.6x10^3/uL (4.0-11.0) Red Blood Count 2.84x10^6/uL (3.50-5.40) Hemoglobin 8.6g/dL (12.0-15.5) Hematocrit 24.2% (36.0-47.0) Mean Corpuscular Volume 85fL (79-100) Mean Corpuscular Hemoglobin 30pg (25-35) Mean Corpuscular Hemoglobin Concent 35g/dL (31-37) Red Cell Distribution Width 16.9% (11.5-14.5) Platelet Count 108x10^3/uL (140-400) Neutrophils (%) (Auto) 85% (31-73) Lymphocytes (%) (Auto) 7% (24-48) Monocytes (%) (Auto) 7% (0-9) Eosinophils (%) (Auto) 2% (0-3) Basophils (%) (Auto) 0% (0-3) Neutrophils # (Auto) 13.2x10^3uL (1.8-7.7) Lymphocytes # (Auto) 1.0x10^3/uL (1.0-4.8) Monocytes # (Auto) 1.0x10^3/uL (0.0-1.1) Eosinophils # (Auto) 0.3x10^3/uL (0.0-0.7) Basophils # (Auto) 0.0x10^3/uL (0.0-0.2) Sodium Level 146mmol/L (136-145) Potassium Level 3.8mmol/L (3.5-5.1) Chloride Level 114mmol/L (98-107) Carbon Dioxide Level 20mmol/L (21-32) Anion Gap 12 (6-14) Blood Urea Nitrogen 39mg/dL (7-20) Creatinine 1.0mg/dL (0.6-1.0) Estimated GFR (Cockcroft-Gault) 60.8 Glucose Level 99mg/dL (70-99) Calcium Level 6.9mg/dL (8.5-10.1) Lactate Dehydrogenase 253U/L (81-234) O2 Saturation 98% (92-99) Arterial Blood pH 7.39 (7.35-7.45) Arterial Blood pCO2 at Patient Temp 32mmHg (35-46) Arterial Blood pO2 at Patient Temp 134mmHg (75-108) Arterial Blood HCO3 19mmol/L (21-28) Arterial Blood Base Excess -6mmol/L (-3-3) FiO2 40 Microbiology 08/05/16 Blood Culture - Preliminary, Resulted 08/05/16 Blood Culture Result 1 ([facility]) - Preliminary, Resulted Medications Current Medications Amino Acids/ Glycerin/ Electrolytes (Procalamine) 1,000 ml @ 100 mls/hr Q10H IV Last administered on 08/05/16 02:40; Start 08/02/16 at 03:00; Stop at 08:50; Status DC Morphine Sulfate 2 mg 2 mg PRN Q2HR PRN IV SEVERE PAIN Last administered on 11:59; Start 08/02/16 at 02:30; Stop 08/02/16 at 13:28; Status DC Daptomycin 220 mg/ Sodium Chloride 50 ml @ 100 mls/hr Q24H IV ; Start 08/02/16 at 09:15; Stop 08/02/16 at 15:58; Status DC Cefepime HCl 1 gm/ Sodium Chloride 50 ml @ 100 mls/hr Q12HR IV Last administered on 08/04/16 08:10; Start 08/02/16 at 10:00; Stop 08/04/16 at 10:33 ; Status DC Daptomycin/Sodium Chloride (Cubicin/Iv Sodium Chloride 0.9% 50ml) 50 ml @ 100 mls/hr ONCE ONCE IV ; Start 08/02/16 at 10:00; Stop 08/02/16 at 10:29; Status Cancel Potassium Chloride 40 meq 40 meq 1X ONCE PO Last administered on 08/02/16 10: 17; Start 08/02/16 at 09:45; Stop 08/02/16 at 09:46; Status DC Daptomycin/Sodium Chloride (Cubicin/Iv Sodium Chloride 0.9% 50ml) 50 ml @ 100 mls/hr Q24H IV Last administered on 08/03/16 09:43; Start 08/02/16 at 10:15; Stop 08/03/16 at 10:29; Status DC Potassium Chloride (Klor-Con) 40 meq 1X ONCE PO Last administered on 12:57; Start 08/02/16 at 12:30; Stop 08/02/16 at 12:36; Status DC Morphine Sulfate 5 mg PRN Q2HRS PRN IV MODERATE TO SEVERE PAIN Last administered on 08/04/16 08:16; Start 08/02/16 at 13:30 Morphine Sulfate 8 mg PRN Q2HRS PRN IV MODERATE TO SEVERE PAIN Last administered on 08/04/16 14:58; Start 08/02/16 at 13:30 Acetaminophen 650 mg 650 mg PRN Q6HRS PRN PO TEMP GREATER THAN 100.4; Start at 14:45 Lactated Ringer's 1,000 ml @ 50 mls/hr Q20H IV ; Start 08/05/16 at 07:00; Stop 08/05/16 at 18:13; Status DC Daptomycin/Sodium Chloride (Cubicin/Iv Sodium Chloride 0.9% 50ml) 50 ml @ 100 mls/hr Q24H IV ; Start 08/03/16 at 11:00; Status Cancel Potassium Chloride (Klor-Con) 40 meq 1X ONCE PO Last administered on 17:41; Start 08/02/16 at 17:15; Stop 08/02/16 at 17:18; Status DC Potassium Chloride (Klor-Con) 40 meq BIDWMEALS PO ; Start 08/03/16 at 08:00; Stop 08/03/16 at 11:08; Status DC Morphine Sulfate 5 mg 1X ONCE IV Last administered on 08/02/16 21:45; Start 08/02/16 at 21:30; Stop 08/02/16 at 21:33; Status DC Lorazepam (Ativan) 1 mg 1X ONCE IV Last administered on 08/02/16 21:30; Start 08/02/16 at 21:30; Stop 08/02/16 at 21:33; Status DC Acetaminophen (Acetaminophen Supp) 650 mg PRN Q6HRS PRN [place] MILD PAIN / TEMP Last administered on 08/05/16 05:10; Start 08/03/16 at 01:15 Albuterol/ Ipratropium (Duoneb) 3 ml RTQID NEB Last administered on 08/07/16 12:07; Start 08/03/16 at 08:00 Budesonide (Pulmicort) 0.5 mg RTBID NEB Last administered on 08/07/16 08:00; Start 08/03/16 at 08:00 Pantoprazole Sodium 40 mg 40 mg 1X ONCE IVP Last administered on 08/03/16 10: 06; Start 08/03/16 at 08:00; Stop 08/03/16 at 08:01; Status DC Daptomycin/Sodium Chloride (Cubicin/Iv Sodium Chloride 0.9% 50ml) 50 ml @ 100 mls/hr Q24H IV Last administered on 08/04/16 10:03; Start 08/04/16 at 10:00; Stop 08/04/16 at 10:33; Status DC Lorazepam (Ativan) 0.5 mg PRN Q6HRS PRN IV ANXIETY / AGITATION Last administered on 08/04/16 09:12; Start 08/03/16 at 11:15; Stop 08/07/16 at 11:02 ; Status DC Lorazepam (Ativan) 0.5 mg 1X ONCE IV Last administered on 08/04/16 10:00; Start 08/04/16 at 10:00; Stop 08/04/16 at 10:01; Status DC Morphine Sulfate 5 mg 1X ONCE IV Last administered on 08/04/16 10:00; Start 08/04/16 at 10:00; Stop 08/04/16 at 10:01; Status DC Lorazepam 0.5 mg 0.5 mg PRN Q4HRS PRN IV ANXIETY / AGITATION Last administered on 08/07/16 08:12; Start 08/04/16 at 10:00 Nafcillin Sodium 2 gm/Sodium Chloride 100 ml @ 200 mls/hr Q4HRS IV Last administered on 08/07/16 08:11; Start 08/04/16 at 12:00 Propofol (Diprivan) 100 ml @ As Directed STK-MED ONCE IV ; Start 08/04/16 at 16 :10; Stop 08/04/16 at 16:11; Status DC Succinylcholine Chloride (Anectine) 200 mg STK-MED ONCE .ROUTE ; Start 08/04/16 at 16:14; Stop 08/04/16 at 16:15; Status DC Succinylcholine Chloride 200 mg 200 mg 1X ONCE IV ; Start 08/04/16 at 16:45; Stop 08/04/16 at 16:46; Status DC Propofol (Diprivan) 100 ml @ 0 mls/hr CONT PRN IV SEE I/O RECORD Last administered on 08/07/16 02:16; Start 08/04/16 at 16:45 Lorazepam (Ativan) 0.5 mg 1X ONCE IV Last administered on 08/04/16 16:45; Start 08/04/16 at 16:45; Stop 08/04/16 at 16:46; Status DC Morphine Sulfate 5 mg 5 mg 1X ONCE IV Last administered on 08/04/16 16:44; Start 08/04/16 at 16:45; Stop 08/04/16 at 16:46; Status DC Fentanyl Citrate (Fentanyl 600 Mcg/30 ml HOSPITALIST MEDICAL DIRECTOR) 30 ml @ 0 mls/hr CONT PRN IV PROTOCOL Last administered on 08/07/16 06:33; Start 08/04/16 at 16:45 Chlorhexidine Gluconate (Peridex) 15 ml BID MM Last administered on 08/07/16 09:16; Start 08/04/16 at 21:00 Famotidine 20 mg 20 mg BID IVP Last administered on 08/07/16 09:16; Start at 17:00 Sodium Chloride (Iv Sodium Chloride 0.9% 1000ml Bag) 1,000 ml @ 100 mls/hr Q10H IV Last administered on 08/07/16 04:35; Start 08/05/16 at 09:00; Stop at 08:59; Status DC Succinylcholine Chloride (Anectine) 200 mg STK-MED ONCE .ROUTE ; Start 08/04/16 at 16:00; Stop 08/05/16 at 12:32; Status DC Lorazepam (Ativan) 2 mg 1X ONCE IV Last administered on 08/05/16 20:43; Start 08/05/16 at 21:00; Stop 08/05/16 at 21:01; Status DC Furosemide (Lasix) 40 mg 1X PRN PRN IV blood transfusion Last administered on 14:17; Start 08/06/16 at 08:00; Stop 08/07/16 at 07:59; Status DC Sodium Bicarbonate 50 meq 1X ONCE IV Last administered on 08/06/16t 14:06; Start 08/06/16 at 12:00; Stop 08/06/16 at 12:01; Status DC Calcium Chloride 1,000 mg STK-MED ONCE IV ; Start 08/04/16 at 12:00; Stop at 15:13; Status DC Epinephrine HCl (Epinephrine Syringe) 2 mg STK-MED ONCE .ROUTE ; Start 08/04/16 at 12:00; Stop 08/06/16 at 15:13; Status DC Sodium Bicarbonate 100 meq 100 meq STK-MED ONCE .ROUTE ; Start 08/04/16 at 12:00 ; Stop 08/06/16 at 15:13; Status DC Amino Acids/ Glycerin/ Electrolytes (Procalamine) 1,000 ml @ 100 mls/hr Q10H IV ; Start 08/07/16 at 10:00 Active Scripts Active Reported No Known Medications Prior To Admisstion (Info) Each 1 Each Vitals/I & O Vital Sign - Last 24 Hours 08/06/16 08/06/16 08/06/16 08/06/16 13:00 13:41 14:00 14:00 Temp 98.8 98.8 Pulse 103 108 110 Resp 30 28 30 B/P 97/52 97/52 114/57 Pulse Ox 100 100 100 O2 Delivery Ventilator Ventilator Ventilator 08/06/16 08/06/16 08/06/16 08/06/16 14:12 14:40 15:00 15:39 Temp 98.6 98.6 Pulse 110 Resp 29 30 30 B/P 110/57 Pulse Ox 100 100 100 O2 Delivery Ventilator Ventilator Ventilator Ventilator 08/06/16 08/06/16 08/06/16 08/06/16 16:00 16:00 16:02 17:00 Temp 98.8 99.0 98.8 99.0 Pulse 101 101 112 Resp 21 19 30 B/P 112/60 112/66 111/64 Pulse Ox 100 100 O2 Delivery Ventilator Mechanical Ventilator Ventilator 08/06/16 08/06/16 08/06/16 08/06/16 18:00 19:00 19:47 20:00 Pulse 109 108 Resp 30 38 B/P 111/61 98/55 Pulse Ox 100 100 100 O2 Delivery Ventilator Ventilator Ventilator Mechanical Ventilator 08/06/16 08/06/16 08/06/1618/17 20:00 21:00 22:00 22:15 Temp 99.9 99.9 Pulse 102 101 99 Resp 25 24 24 B/P 102/55 97/51 102/57 Pulse Ox 100 100 100 100 O2 Delivery Ventilator Ventilator Ventilator Ventilator 08/06/16 08/06/16 08/07/16 08/07/16 22:18 23:00 00:00 00:00 Temp 99.2 99.2 Pulse 91 96 Resp 25 22 25 B/P 106/59 103/57 Pulse Ox 100 100 100 O2 Delivery Ventilator Ventilator Mechanical Ventilator Ventilator 08/07/16 08/07/16 08/07/16 08/07/16 00:05 01:00 01:25 02:00 Pulse 92 96 Resp 22 24 B/P 106/60 109/60 Pulse Ox 100 100 100 100 O2 Delivery Ventilator Ventilator Ventilator Ventilator 08/07/16 08/07/16 08/07/16 08/07/16 03:00 03:30 04:00 04:00 Temp 99.6 99.6 Pulse 93 86 Resp 27 25 B/P 107/61 108/67 Pulse Ox 100 100 100 O2 Delivery Ventilator Ventilator Mechanical Ventilator Ventilator 08/07/16 08/07/16 08/07/16 08/07/16 05:00 05:15 06:00 06:33 Pulse 90 96 Resp 24 27 26 B/P 103/53 103/55 Pulse Ox 100 100 100 100 O2 Delivery Ventilator Ventilator Ventilator Ventilator 08/07/16 08/07/16 08/07/16 08/07/16 08:00 08:04 09:13 11:35 Pulse Ox 100 100 100 O2 Delivery Mechanical Ventilator Ventilator Ventilator Ventilator Intake and Output 08/06/16 08/06/16 08/07/16 15:00 23:00 07:00 Intake Total 200 ml 1731.45 ml 1469 ml Output Total 1120 ml 1669 ml 790 ml Balance -920 ml 62.45 ml 679 ml Nutrition Consultation Dietary Evaluation: Recommendations by RD: PPN/TPN Comments: Pt currently NPO, unable to initiate TF's d/t abdominal distention and possible ileus Rec. continue the PPN at 100 ml/hr If able to place PICC line, rec. TPN due to malnourishment and extended NPO Expected Outcomes/Goals: to meet >75% est nutr needs Interpretation of weight loss: >7.5% in 3 months Malnutrition Findings: Food and Nutrition Intake (Mod: <75% est energy req 7days Body Fat Depletion (Non Severe: Mild Depletion Reduced Plant Maintenance Supervisor Strength: N/A Reduced Plant Maintenance Supervisor Strength (Non-Sev: N/A Malnutrition related to morbid: No Weight Status: Appropriate Fluid Accumulation (N/A): N/A MAYKEL BAUTISTA MD Aug 07, 2016 12:11
[2016-08-07] MEDS: AMINO AC 3%/ELECTROLYTE/GLYCER 1,000 ML IV SCH (13:14)
[2016-08-07] MEDS ORDERED: VECURONIUM BOLUS 10 MG VIAL. IV ONE ×2 (13:56→14:00)
[2016-08-07] MEDS: ENOXAPARIN 40 MG/0.4 ML SYRINGE. SQ SCH (14:00)
--- NOTE | 2016-08-07 14:28 | RAD ---
Portable chest, 08/07/2016, 2:11 PM: History: Respiratory distress Comparison is made to study of earlier the same day. The ET tube and NG tube are unchanged in positions. The heart size is normal. There are moderate ongoing patchy pulmonary infiltrates, right greater than left. The right hemidiaphragm is obscured. There may be pleural fluid contributing to the right basilar opacity. Some of these opacities are probably cavitary. Multifocal pneumonia/septic emboli is suspected. No new abnormality is seen. IMPRESSION: No significant change since earlier in the day.
--- NOTE | 2016-08-07 14:35 | PDOC ---
PULMONARY PROGRESS NOTES Subjective remains intubated/sedated Became very agitated when off sedation Vitals Vital Signs Date Time Temp Pulse Resp B/P Pulse Ox O2 Delivery O2 Flow Rate FiO2 08/07/16 13:54 33 100 Ventilator 08/07/16 06:00 96 103/55 08/07/16 04:00 99.6 99.6 Comments ros as mentioned as above other sys otherwise neg HEENT: Other (nc at perrl, throat clear, nose inflamed mucosa.....neck, no lap , thyromegaly) Lungs: Other (bl coarse bs) Cardiovascular: Other (tacgy) Abdomen: Soft, Non-tender, Other (hepatomegaly) Extremities: Other (edema) Skin: Warm Labs Laboratory Tests Test 08/06/16 06:28 08/06/16 07:35 08/07/16 08:00 08/07/16 09:25 White Blood Count 13.5x10^3/uL (4.0-11.0) 15.6x10^3/uL (4.0-11.0) Red Blood Count 2.29x10^6/uL (3.50-5.40) 2.84x10^6/uL (3.50-5.40) Hemoglobin 6.8g/dL (12.0-15.5) 8.6g/dL (12.0-15.5) Hematocrit 20.4% (36.0-47.0) 24.2% (36.0-47.0) Mean Corpuscular Volume 89fL (79-100) 85fL (79-100) Mean Corpuscular Hemoglobin 30pg (25-35) 30pg (25-35) Mean Corpuscular Hemoglobin Concent 34g/dL (31-37) 35g/dL (31-37) Red Cell Distribution Width 14.7% (11.5-14.5) 16.9% (11.5-14.5) Platelet Count 71x10^3/uL (140-400) 108x10^3/uL (140-400) Neutrophils (%) (Auto) 81% (31-73) 85% (31-73) Lymphocytes (%) (Auto) 9% (24-48) 7% (24-48) Monocytes (%) (Auto) 7% (0-9) 7% (0-9) Eosinophils (%) (Auto) 3% (0-3) 2% (0-3) Basophils (%) (Auto) 0% (0-3) 0% (0-3) Neutrophils # (Auto) 11.0x10^3uL (1.8-7.7) 13.2x10^3uL (1.8-7.7) Lymphocytes # (Auto) 1.2x10^3/uL (1.0-4.8) 1.0x10^3/uL (1.0-4.8) Monocytes # (Auto) 1.0x10^3/uL (0.0-1.1) 1.0x10^3/uL (0.0-1.1) Eosinophils # (Auto) 0.3x10^3/uL (0.0-0.7) 0.3x10^3/uL (0.0-0.7) Basophils # (Auto) 0.0x10^3/uL (0.0-0.2) 0.0x10^3/uL (0.0-0.2) Sodium Level 140mmol/L (136-145) 146mmol/L (136-145) Potassium Level 4.9mmol/L (3.5-5.1) 3.8mmol/L (3.5-5.1) Chloride Level 110mmol/L (98-107) 114mmol/L (98-107) Carbon Dioxide Level 20mmol/L (21-32) 20mmol/L (21-32) Anion Gap 10 (6-14) 12 (6-14) Blood Urea Nitrogen 44mg/dL (7-20) 39mg/dL (7-20) Creatinine 1.1mg/dL (0.6-1.0) 1.0mg/dL (0.6-1.0) Estimated GFR (Cockcroft-Gault) 54.5 60.8 Glucose Level 98mg/dL (70-99) 99mg/dL (70-99) Calcium Level 6.5mg/dL (8.5-10.1) 6.9mg/dL (8.5-10.1) O2 Saturation 99% (92-99) 98% (92-99) Arterial Blood pH 7.41 (7.35-7.45) 7.39 (7.35-7.45) Arterial Blood pCO2 at Patient Temp 28mmHg (35-46) 32mmHg (35-46) Arterial Blood pO2 at Patient Temp 154mmHg (75-108) 134mmHg (75-108) Arterial Blood HCO3 17mmol/L (21-28) 19mmol/L (21-28) Arterial Blood Base Excess -7mmol/L (-3-3) -6mmol/L (-3-3) FiO2 40 40 Lactate Dehydrogenase 253U/L (81-234) Laboratory Tests Test 08/07/16 08:00 08/07/16 09:25 White Blood Count 15.6x10^3/uL (4.0-11.0) Red Blood Count 2.84x10^6/uL (3.50-5.40) Hemoglobin 8.6g/dL (12.0-15.5) Hematocrit 24.2% (36.0-47.0) Mean Corpuscular Volume 85fL (79-100) Mean Corpuscular Hemoglobin 30pg (25-35) Mean Corpuscular Hemoglobin Concent 35g/dL (31-37) Red Cell Distribution Width 16.9% (11.5-14.5) Platelet Count 108x10^3/uL (140-400) Neutrophils (%) (Auto) 85% (31-73) Lymphocytes (%) (Auto) 7% (24-48) Monocytes (%) (Auto) 7% (0-9) Eosinophils (%) (Auto) 2% (0-3) Basophils (%) (Auto) 0% (0-3) Neutrophils # (Auto) 13.2x10^3uL (1.8-7.7) Lymphocytes # (Auto) 1.0x10^3/uL (1.0-4.8) Monocytes # (Auto) 1.0x10^3/uL (0.0-1.1) Eosinophils # (Auto) 0.3x10^3/uL (0.0-0.7) Basophils # (Auto) 0.0x10^3/uL (0.0-0.2) Sodium Level 146mmol/L (136-145) Potassium Level 3.8mmol/L (3.5-5.1) Chloride Level 114mmol/L (98-107) Carbon Dioxide Level 20mmol/L (21-32) Anion Gap 12 (6-14) Blood Urea Nitrogen 39mg/dL (7-20) Creatinine 1.0mg/dL (0.6-1.0) Estimated GFR (Cockcroft-Gault) 60.8 Glucose Level 99mg/dL (70-99) Calcium Level 6.9mg/dL (8.5-10.1) Lactate Dehydrogenase 253U/L (81-234) O2 Saturation 98% (92-99) Arterial Blood pH 7.39 (7.35-7.45) Arterial Blood pCO2 at Patient Temp 32mmHg (35-46) Arterial Blood pO2 at Patient Temp 134mmHg (75-108) Arterial Blood HCO3 19mmol/L (21-28) Arterial Blood Base Excess -6mmol/L (-3-3) FiO2 40 Medications Active Scripts Medications Dose Route/Sig Days Date Category No Known Medications Prior To Admisstion (Info) Each 1 Each 08/06/16 Reported Comments cxr reviewed, b lat patchy nodular infilt Impression . 1. Acute hypoxemic respiratory failure, multifactorial in etiology. 2. Increase R/R while off sedation, suspect due to withdrawl of drugs 3. Bilateral pulmonary nodules, I suspect it is septic emboli. 4. Endocarditis. right sided 5. ? chronic obstructive pulmonary disease. 6. Leukocytosis. 7. Anemia. 8. Thrombocytopenia. 9. Hyponatremia. 10. Intravenous drug abuse. 11. Tobacco habituation. 12. MSSA septicemia Plan . AC mode Bicarb prn transfuse prn r/o hemolysis antibiotics per ID will try off sedation again today and consider CPAP trial once awake d/w RN/ family CARLEY WORKMAN MD Aug 07, 2016 14:35
[2016-08-08] VITALS (24 sets, daily range): BP systolic 90–133; BP diastolic 48–79
[2016-08-08] MEDS: NAFCILLIN 2 GM in IV NORMAL SALINE 100ML 100 ML IV SCH ×7 (00:22→23:50)
[2016-08-08] MEDS: PROPOFOL 100 ML IV PRN ×5 (00:22→23:50)
[2016-08-08] MEDS: AMINO AC 3%/ELECTROLYTE/GLYCER 1,000 ML IV SCH ×2 (02:33→12:33)
[2016-08-08 07:07] LABS: BASO # 0.1 x10^3/uL (0.0-0.2); BASO % 1 % (0-3); EOS % 1 % (0-3); HEMATOCRIT 24.7 % (36.0-47.0); HEMOGLOBIN 8.1 g/dL (12.0-15.5); LYMPH # 0.8 x10^3/uL (1.0-4.8); LYMPH % 5 % (24-48); MEAN CORPUSCULAR HEMOGLOBIN 29 pg (25-35); MEAN CORPUSCULAR HGB CONC 33 g/dL (31-37); MEAN CORPUSCULAR VOLUME 89 fL (79-100); MONO % 7 % (0-9); NEUT % 86 % (31-73); PLATELET COUNT 126 x10^3/uL (140-400); RED BLOOD COUNT 2.79 x10^6/uL (3.50-5.40); WHITE BLOOD COUNT 15.6 x10^3/uL (4.0-11.0)
[2016-08-08 07:19] LABS: CALCIUM 7.3 mg/dL (8.5-10.1); CREATININE 1.3 mg/dL (0.6-1.0); GFR 44.9; POTASSIUM 4.2 mmol/L (3.5-5.1)
--- NOTE | 2016-08-08 07:31 | PDOC ---
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 SKIN: No rash IV: peripheral ok Labs Lab Laboratory Tests Test 08/07/16 08:00 08/07/16 09:25 08/08/16 05:40 White Blood Count 15.6x10^3/uL (4.0-11.0) 15.6x10^3/uL (4.0-11.0) Red Blood Count 2.84x10^6/uL (3.50-5.40) 2.79x10^6/uL (3.50-5.40) Hemoglobin 8.6g/dL (12.0-15.5) 8.1g/dL (12.0-15.5) Hematocrit 24.2% (36.0-47.0) 24.7% (36.0-47.0) Mean Corpuscular Volume 85fL (79-100) 89fL (79-100) Mean Corpuscular Hemoglobin 30pg (25-35) 29pg (25-35) Mean Corpuscular Hemoglobin Concent 35g/dL (31-37) 33g/dL (31-37) Red Cell Distribution Width 16.9% (11.5-14.5) 17.0% (11.5-14.5) Platelet Count 108x10^3/uL (140-400) 126x10^3/uL (140-400) Neutrophils (%) (Auto) 85% (31-73) 86% (31-73) Lymphocytes (%) (Auto) 7% (24-48) 5% (24-48) Monocytes (%) (Auto) 7% (0-9) 7% (0-9) Eosinophils (%) (Auto) 2% (0-3) 1% (0-3) Basophils (%) (Auto) 0% (0-3) 1% (0-3) Neutrophils # (Auto) 13.2x10^3uL (1.8-7.7) 13.4x10^3uL (1.8-7.7) Lymphocytes # (Auto) 1.0x10^3/uL (1.0-4.8) 0.8x10^3/uL (1.0-4.8) Monocytes # (Auto) 1.0x10^3/uL (0.0-1.1) 1.0x10^3/uL (0.0-1.1) Eosinophils # (Auto) 0.3x10^3/uL (0.0-0.7) 0.2x10^3/uL (0.0-0.7) Basophils # (Auto) 0.0x10^3/uL (0.0-0.2) 0.1x10^3/uL (0.0-0.2) Haptoglobin 181mg/dL (34-200) Sodium Level 146mmol/L (136-145) 146mmol/L (136-145) Potassium Level 3.8mmol/L (3.5-5.1) 4.2mmol/L (3.5-5.1) Chloride Level 114mmol/L (98-107) 115mmol/L (98-107) Carbon Dioxide Level 20mmol/L (21-32) 20mmol/L (21-32) Anion Gap 12 (6-14) 11 (6-14) Blood Urea Nitrogen 39mg/dL (7-20) 45mg/dL (7-20) Creatinine 1.0mg/dL (0.6-1.0) 1.3mg/dL (0.6-1.0) Estimated GFR (Cockcroft-Gault) 60.8 44.9 Glucose Level 99mg/dL (70-99) 133mg/dL (70-99) Calcium Level 6.9mg/dL (8.5-10.1) 7.3mg/dL (8.5-10.1) Lactate Dehydrogenase 253U/L (81-234) O2 Saturation 98% (92-99) Arterial Blood pH 7.39 (7.35-7.45) Arterial Blood pCO2 at Patient Temp 32mmHg (35-46) Arterial Blood pO2 at Patient Temp 134mmHg (75-108) Arterial Blood HCO3 19mmol/L (21-28) Arterial Blood Base Excess -6mmol/L (-3-3) FiO2 40 Objective Assessment Acute anemia 2 units PRBCs 08/06 Acute Resp failure - Intubated ? developing ARDS Presumptive MSSA 08/01 sepsis - repeat 08/05 Staph d/w Micro + MSSA Hep C IV drug use. Right-sided bacterial endocarditis. -TTE. 3.0 x 2.0cm mobile mass TV -BC NGTD, 08/01 ([facility]). Multiple pulmonary nodules Ileus Renal insufficiency. Severe thrombocytopenia. Leukocytosis. Fever. Hepatosplenomegaly on CT Plan Plan of Care Cont Nafcillin Repeat cults 08/07 if remain neg can place PICC F/u labs & cultures KAYLYNN SHAY MD Aug 08, 2016 07:31
[2016-08-08] MEDS: BUDESONIDE 0.5 MG/2 ML NEBU. NEB SCH ×2 (07:41→20:08)
[2016-08-08] MEDS: IPRATRPIUM/ALBUTEROL 0.5/2.5MG 3 ML NEBU. NEB SCH ×4 (07:41→20:08)
--- NOTE | 2016-08-08 08:18 | RAD ---
Portable chest, 08/08/2016: History: Respiratory failure Comparison is made to yesterday's study. The ET tube tip lies well above the sundar. An NG tube extends into the stomach. The heart size is unchanged. There are ongoing patchy bilateral pulmonary opacities. These consist of cavitary nodules as well as hazy pulmonary infiltrates. The cavitary components have become more evident over the last several days. The findings again suggest multifocal pneumonia/septic emboli. Blunting of the right lateral costophrenic angles suggests a small amount of pleural fluid. There is been no significant change since yesterday's study. IMPRESSION: 1. Stable tube positions. 2. Unchanged patchy pulmonary infiltrates with associated cavitary nodules again suggesting septic emboli. 3. Probable small right pleural effusion
[2016-08-08] MEDS: CHLORHEXIDINE 0.12% 15 ML MOUTHWASH. MM SCH ×2 (09:01→21:53)
[2016-08-08] MEDS: FAMOTIDINE 20 MG/2 ML VIAL IVP SCH ×2 (09:02→21:53)
[2016-08-08 10:54] LABS: HCO3 ABG 18 mmol/L (21-28); PO2 ABG 149 mmHg (75-108); SAT O2 ABG 99 % (92-99)
[2016-08-08 10:56] LABS: PCO2 ABG 33 mmHg (35-46); PH ABG 7.35 (7.35-7.45)
[2016-08-08 10:57] LABS: FIO2 ABG 40
--- NOTE | 2016-08-08 11:39 | PDOC ---
PULMONARY PROGRESS NOTES Subjective remains intubated/sedated very agitated when off sedation failed CPAP trials coarse BS Vitals Vital Signs Date Time Temp Pulse Resp B/P Pulse Ox O2 Delivery O2 Flow Rate FiO2 08/08/16 09:09 100 Ventilator 08/08/16 07:00 107 30 101/61 08/08/16 04:00 98.9 98.9 Comments ros as mentioned as above other sys otherwise neg HEENT: Other (nc at perrl, throat clear, nose inflamed mucosa.....neck, no lap , thyromegaly) Lungs: Other (bl coarse bs) Cardiovascular: Other (tacgy) Abdomen: Soft, Non-tender, Other (hepatomegaly) Extremities: Other (edema) Skin: Warm Labs Laboratory Tests Test 08/07/16 08:00 08/07/16 09:25 08/08/16 05:40 08/08/16 08:00 White Blood Count 15.6x10^3/uL (4.0-11.0) 15.6x10^3/uL (4.0-11.0) Red Blood Count 2.84x10^6/uL (3.50-5.40) 2.79x10^6/uL (3.50-5.40) Hemoglobin 8.6g/dL (12.0-15.5) 8.1g/dL (12.0-15.5) Hematocrit 24.2% (36.0-47.0) 24.7% (36.0-47.0) Mean Corpuscular Volume 85fL (79-100) 89fL (79-100) Mean Corpuscular Hemoglobin 30pg (25-35) 29pg (25-35) Mean Corpuscular Hemoglobin Concent 35g/dL (31-37) 33g/dL (31-37) Red Cell Distribution Width 16.9% (11.5-14.5) 17.0% (11.5-14.5) Platelet Count 108x10^3/uL (140-400) 126x10^3/uL (140-400) Neutrophils (%) (Auto) 85% (31-73) 86% (31-73) Lymphocytes (%) (Auto) 7% (24-48) 5% (24-48) Monocytes (%) (Auto) 7% (0-9) 7% (0-9) Eosinophils (%) (Auto) 2% (0-3) 1% (0-3) Basophils (%) (Auto) 0% (0-3) 1% (0-3) Neutrophils # (Auto) 13.2x10^3uL (1.8-7.7) 13.4x10^3uL (1.8-7.7) Lymphocytes # (Auto) 1.0x10^3/uL (1.0-4.8) 0.8x10^3/uL (1.0-4.8) Monocytes # (Auto) 1.0x10^3/uL (0.0-1.1) 1.0x10^3/uL (0.0-1.1) Eosinophils # (Auto) 0.3x10^3/uL (0.0-0.7) 0.2x10^3/uL (0.0-0.7) Basophils # (Auto) 0.0x10^3/uL (0.0-0.2) 0.1x10^3/uL (0.0-0.2) Haptoglobin 181mg/dL (34-200) Sodium Level 146mmol/L (136-145) 146mmol/L (136-145) Potassium Level 3.8mmol/L (3.5-5.1) 4.2mmol/L (3.5-5.1) Chloride Level 114mmol/L (98-107) 115mmol/L (98-107) Carbon Dioxide Level 20mmol/L (21-32) 20mmol/L (21-32) Anion Gap 12 (6-14) 11 (6-14) Blood Urea Nitrogen 39mg/dL (7-20) 45mg/dL (7-20) Creatinine 1.0mg/dL (0.6-1.0) 1.3mg/dL (0.6-1.0) Estimated GFR (Cockcroft-Gault) 60.8 44.9 Glucose Level 99mg/dL (70-99) 133mg/dL (70-99) Calcium Level 6.9mg/dL (8.5-10.1) 7.3mg/dL (8.5-10.1) Lactate Dehydrogenase 253U/L (81-234) O2 Saturation 98% (92-99) 99% (92-99) Arterial Blood pH 7.39 (7.35-7.45) 7.35 (7.35-7.45) Arterial Blood pCO2 at Patient Temp 32mmHg (35-46) 33mmHg (35-46) Arterial Blood pO2 at Patient Temp 134mmHg (75-108) 149mmHg (75-108) Arterial Blood HCO3 19mmol/L (21-28) 18mmol/L (21-28) Arterial Blood Base Excess -6mmol/L (-3-3) -7mmol/L (-3-3) FiO2 40 40 Laboratory Tests Test 08/08/16 05:40 08/08/16 08:00 White Blood Count 15.6x10^3/uL (4.0-11.0) Red Blood Count 2.79x10^6/uL (3.50-5.40) Hemoglobin 8.1g/dL (12.0-15.5) Hematocrit 24.7% (36.0-47.0) Mean Corpuscular Volume 89fL (79-100) Mean Corpuscular Hemoglobin 29pg (25-35) Mean Corpuscular Hemoglobin Concent 33g/dL (31-37) Red Cell Distribution Width 17.0% (11.5-14.5) Platelet Count 126x10^3/uL (140-400) Neutrophils (%) (Auto) 86% (31-73) Lymphocytes (%) (Auto) 5% (24-48) Monocytes (%) (Auto) 7% (0-9) Eosinophils (%) (Auto) 1% (0-3) Basophils (%) (Auto) 1% (0-3) Neutrophils # (Auto) 13.4x10^3uL (1.8-7.7) Lymphocytes # (Auto) 0.8x10^3/uL (1.0-4.8) Monocytes # (Auto) 1.0x10^3/uL (0.0-1.1) Eosinophils # (Auto) 0.2x10^3/uL (0.0-0.7) Basophils # (Auto) 0.1x10^3/uL (0.0-0.2) Sodium Level 146mmol/L (136-145) Potassium Level 4.2mmol/L (3.5-5.1) Chloride Level 115mmol/L (98-107) Carbon Dioxide Level 20mmol/L (21-32) Anion Gap 11 (6-14) Blood Urea Nitrogen 45mg/dL (7-20) Creatinine 1.3mg/dL (0.6-1.0) Estimated GFR (Cockcroft-Gault) 44.9 Glucose Level 133mg/dL (70-99) Calcium Level 7.3mg/dL (8.5-10.1) O2 Saturation 99% (92-99) Arterial Blood pH 7.35 (7.35-7.45) Arterial Blood pCO2 at Patient Temp 33mmHg (35-46) Arterial Blood pO2 at Patient Temp 149mmHg (75-108) Arterial Blood HCO3 18mmol/L (21-28) Arterial Blood Base Excess -7mmol/L (-3-3) FiO2 40 Medications Active Scripts Medications Dose Route/Sig Days Date Category No Known Medications Prior To Admisstion (Info) Each 1 Each 08/06/16 Reported Comments cxr reviewed 08/08, bilateral patchy nodular infilt Impression . 1. Acute hypoxemic respiratory failure, multifactorial in etiology. 2. Increase R/R while off sedation, suspect due to MA,? withdrawl of drugs, airway secretions 3. Bilateral pulmonary nodules, suspect due to septic emboli. 4. Endocarditis. right sided 5. ? chronic obstructive pulmonary disease. 6. Leukocytosis. 7. Anemia. 8. Thrombocytopenia. 9. Hyponatremia. 10. Intravenous drug abuse. 11. Tobacco habituation. 12. MSSA septicemia Plan . AC mode hold CPAP trials Bronch today Bicarb prn transfuse prn hold lovenox antibiotics per ID d/w CARLEY MOORE MD Aug 08, 2016 11:39
--- NOTE | 2016-08-08 11:43 | PDOC ---
PROGRESS NOTES Chief Complaint Chief Complaint Sepsis ASSESSMENT AND PLAN: 1. Sepsis/endocarditis: initial blood cultures NGTD, but tricuspid valve vegetation on echo. on naficillin as per ID 2. Pneumonia: septic emboli bilat, with worsening oxygenation, on BiPAP, may need intubation. close monitoring w/ABG 3. Hyponatremia, hypernatremia 4. Leukocytosis: persisting unchanged. 2/2 infect, monitor 5. Thrombocytopenia 2/2 sepsis likely: early signs of recovery. no signs of bleed. monitor, transfuse for plts <10 6. Prophylaxis: hold anticoag with low plts; start when plts recovered to >50 7. Abd distension: ileus, resolved 8. hyperkalemia 9. acute resp failure with 1 and 2 10. + bacteremia, staph aureus change IVF to PPN NGT feeding trial 08/07, repeated KUB ileus resolved consider tube feeding after bronch 08/08 fu bcx, +staph aureus, on naficillin iv as per ID fu with pulm, ID, card keep in ICU, intubated, sedated 2u PRBC 08/06, monitor hh daily consider wean ventilation if ok with pulm CC: 40 min History of Present Illness History of Present Illness fever daily, BETter 08/07 intubated, sedated hb 6.8 better to 8 with 2u PRBC 08/06 failed pressure support with agitation cont bcx +, staph Vitals Vitals Vital Signs Date Time Temp Pulse Resp B/P Pulse Ox O2 Delivery O2 Flow Rate FiO2 08/08/16 09:09 100 Ventilator 08/08/16 07:00 107 30 101/61 08/08/16 04:00 98.9 98.9 Physical Exam Physical Exam INTUBATED ,sedated General: Other (intubated and sedated) Heart: Regular rate, Normal S1, Normal S2 Lungs: Other (bl coarse bs) Abdomen: Soft, No tenderness Extremities: No edema Skin: No significant lesion Labs LABS Laboratory Tests Test 08/08/16 05:40 08/08/16 08:00 White Blood Count 15.6x10^3/uL (4.0-11.0) Red Blood Count 2.79x10^6/uL (3.50-5.40) Hemoglobin 8.1g/dL (12.0-15.5) Hematocrit 24.7% (36.0-47.0) Mean Corpuscular Volume 89fL (79-100) Mean Corpuscular Hemoglobin 29pg (25-35) Mean Corpuscular Hemoglobin Concent 33g/dL (31-37) Red Cell Distribution Width 17.0% (11.5-14.5) Platelet Count 126x10^3/uL (140-400) Neutrophils (%) (Auto) 86% (31-73) Lymphocytes (%) (Auto) 5% (24-48) Monocytes (%) (Auto) 7% (0-9) Eosinophils (%) (Auto) 1% (0-3) Basophils (%) (Auto) 1% (0-3) Neutrophils # (Auto) 13.4x10^3uL (1.8-7.7) Lymphocytes # (Auto) 0.8x10^3/uL (1.0-4.8) Monocytes # (Auto) 1.0x10^3/uL (0.0-1.1) Eosinophils # (Auto) 0.2x10^3/uL (0.0-0.7) Basophils # (Auto) 0.1x10^3/uL (0.0-0.2) Sodium Level 146mmol/L (136-145) Potassium Level 4.2mmol/L (3.5-5.1) Chloride Level 115mmol/L (98-107) Carbon Dioxide Level 20mmol/L (21-32) Anion Gap 11 (6-14) Blood Urea Nitrogen 45mg/dL (7-20) Creatinine 1.3mg/dL (0.6-1.0) Estimated GFR (Cockcroft-Gault) 44.9 Glucose Level 133mg/dL (70-99) Calcium Level 7.3mg/dL (8.5-10.1) O2 Saturation 99% (92-99) Arterial Blood pH 7.35 (7.35-7.45) Arterial Blood pCO2 at Patient Temp 33mmHg (35-46) Arterial Blood pO2 at Patient Temp 149mmHg (75-108) Arterial Blood HCO3 18mmol/L (21-28) Arterial Blood Base Excess -7mmol/L (-3-3) FiO2 40 Review of Systems Review of Systems no fever, chills, Comment Review of Relevant I have reviewed the following items shanta (where applicable) has been applied. Labs Laboratory Tests Test 08/07/16 08:00 08/07/16 09:25 08/08/16 05:40 08/08/16 08:00 White Blood Count 15.6x10^3/uL (4.0-11.0) 15.6x10^3/uL (4.0-11.0) Red Blood Count 2.84x10^6/uL (3.50-5.40) 2.79x10^6/uL (3.50-5.40) Hemoglobin 8.6g/dL (12.0-15.5) 8.1g/dL (12.0-15.5) Hematocrit 24.2% (36.0-47.0) 24.7% (36.0-47.0) Mean Corpuscular Volume 85fL (79-100) 89fL (79-100) Mean Corpuscular Hemoglobin 30pg (25-35) 29pg (25-35) Mean Corpuscular Hemoglobin Concent 35g/dL (31-37) 33g/dL (31-37) Red Cell Distribution Width 16.9% (11.5-14.5) 17.0% (11.5-14.5) Platelet Count 108x10^3/uL (140-400) 126x10^3/uL (140-400) Neutrophils (%) (Auto) 85% (31-73) 86% (31-73) Lymphocytes (%) (Auto) 7% (24-48) 5% (24-48) Monocytes (%) (Auto) 7% (0-9) 7% (0-9) Eosinophils (%) (Auto) 2% (0-3) 1% (0-3) Basophils (%) (Auto) 0% (0-3) 1% (0-3) Neutrophils # (Auto) 13.2x10^3uL (1.8-7.7) 13.4x10^3uL (1.8-7.7) Lymphocytes # (Auto) 1.0x10^3/uL (1.0-4.8) 0.8x10^3/uL (1.0-4.8) Monocytes # (Auto) 1.0x10^3/uL (0.0-1.1) 1.0x10^3/uL (0.0-1.1) Eosinophils # (Auto) 0.3x10^3/uL (0.0-0.7) 0.2x10^3/uL (0.0-0.7) Basophils # (Auto) 0.0x10^3/uL (0.0-0.2) 0.1x10^3/uL (0.0-0.2) Haptoglobin 181mg/dL (34-200) Sodium Level 146mmol/L (136-145) 146mmol/L (136-145) Potassium Level 3.8mmol/L (3.5-5.1) 4.2mmol/L (3.5-5.1) Chloride Level 114mmol/L (98-107) 115mmol/L (98-107) Carbon Dioxide Level 20mmol/L (21-32) 20mmol/L (21-32) Anion Gap 12 (6-14) 11 (6-14) Blood Urea Nitrogen 39mg/dL (7-20) 45mg/dL (7-20) Creatinine 1.0mg/dL (0.6-1.0) 1.3mg/dL (0.6-1.0) Estimated GFR (Cockcroft-Gault) 60.8 44.9 Glucose Level 99mg/dL (70-99) 133mg/dL (70-99) Calcium Level 6.9mg/dL (8.5-10.1) 7.3mg/dL (8.5-10.1) Lactate Dehydrogenase 253U/L (81-234) O2 Saturation 98% (92-99) 99% (92-99) Arterial Blood pH 7.39 (7.35-7.45) 7.35 (7.35-7.45) Arterial Blood pCO2 at Patient Temp 32mmHg (35-46) 33mmHg (35-46) Arterial Blood pO2 at Patient Temp 134mmHg (75-108) 149mmHg (75-108) Arterial Blood HCO3 19mmol/L (21-28) 18mmol/L (21-28) Arterial Blood Base Excess -6mmol/L (-3-3) -7mmol/L (-3-3) FiO2 40 40 Laboratory Tests Test 08/08/16 05:40 08/08/16 08:00 White Blood Count 15.6x10^3/uL (4.0-11.0) Red Blood Count 2.79x10^6/uL (3.50-5.40) Hemoglobin 8.1g/dL (12.0-15.5) Hematocrit 24.7% (36.0-47.0) Mean Corpuscular Volume 89fL (79-100) Mean Corpuscular Hemoglobin 29pg (25-35) Mean Corpuscular Hemoglobin Concent 33g/dL (31-37) Red Cell Distribution Width 17.0% (11.5-14.5) Platelet Count 126x10^3/uL (140-400) Neutrophils (%) (Auto) 86% (31-73) Lymphocytes (%) (Auto) 5% (24-48) Monocytes (%) (Auto) 7% (0-9) Eosinophils (%) (Auto) 1% (0-3) Basophils (%) (Auto) 1% (0-3) Neutrophils # (Auto) 13.4x10^3uL (1.8-7.7) Lymphocytes # (Auto) 0.8x10^3/uL (1.0-4.8) Monocytes # (Auto) 1.0x10^3/uL (0.0-1.1) Eosinophils # (Auto) 0.2x10^3/uL (0.0-0.7) Basophils # (Auto) 0.1x10^3/uL (0.0-0.2) Sodium Level 146mmol/L (136-145) Potassium Level 4.2mmol/L (3.5-5.1) Chloride Level 115mmol/L (98-107) Carbon Dioxide Level 20mmol/L (21-32) Anion Gap 11 (6-14) Blood Urea Nitrogen 45mg/dL (7-20) Creatinine 1.3mg/dL (0.6-1.0) Estimated GFR (Cockcroft-Gault) 44.9 Glucose Level 133mg/dL (70-99) Calcium Level 7.3mg/dL (8.5-10.1) O2 Saturation 99% (92-99) Arterial Blood pH 7.35 (7.35-7.45) Arterial Blood pCO2 at Patient Temp 33mmHg (35-46) Arterial Blood pO2 at Patient Temp 149mmHg (75-108) Arterial Blood HCO3 18mmol/L (21-28) Arterial Blood Base Excess -7mmol/L (-3-3) FiO2 40 Microbiology 08/07/16 Blood Culture - Preliminary, Resulted NO GROWTH AFTER 1 DAY Medications Current Medications Amino Acids/ Glycerin/ Electrolytes (Procalamine) 1,000 ml @ 100 mls/hr Q10H IV Last administered on 08/05/16 02:40; Start 08/02/16 at 03:00; Stop at 08:50; Status DC Morphine Sulfate 2 mg 2 mg PRN Q2HR PRN IV SEVERE PAIN Last administered on 11:59; Start 08/02/16 at 02:30; Stop 08/02/16 at 13:28; Status DC Daptomycin 220 mg/ Sodium Chloride 50 ml @ 100 mls/hr Q24H IV ; Start 08/02/16 at 09:15; Stop 08/02/16 at 15:58; Status DC Cefepime HCl 1 gm/ Sodium Chloride 50 ml @ 100 mls/hr Q12HR IV Last administered on 08/04/16 08:10; Start 08/02/16 at 10:00; Stop 08/04/16 at 10:33 ; Status DC Daptomycin/Sodium Chloride (Cubicin/Iv Sodium Chloride 0.9% 50ml) 50 ml @ 100 mls/hr ONCE ONCE IV ; Start 08/02/16 at 10:00; Stop 08/02/16 at 10:29; Status Cancel Potassium Chloride 40 meq 40 meq 1X ONCE PO Last administered on 08/02/16 10: 17; Start 08/02/16 at 09:45; Stop 08/02/16 at 09:46; Status DC Daptomycin/Sodium Chloride (Cubicin/Iv Sodium Chloride 0.9% 50ml) 50 ml @ 100 mls/hr Q24H IV Last administered on 08/03/16 09:43; Start 08/02/16 at 10:15; Stop 08/03/16 at 10:29; Status DC Potassium Chloride (Klor-Con) 40 meq 1X ONCE PO Last administered on 12:57; Start 08/02/16 at 12:30; Stop 08/02/16 at 12:36; Status DC Morphine Sulfate 5 mg PRN Q2HRS PRN IV MODERATE TO SEVERE PAIN Last administered on 08/04/16 08:16; Start 08/02/16 at 13:30 Morphine Sulfate 8 mg PRN Q2HRS PRN IV MODERATE TO SEVERE PAIN Last administered on 08/04/16 14:58; Start 08/02/16 at 13:30 Acetaminophen 650 mg 650 mg PRN Q6HRS PRN PO TEMP GREATER THAN 100.4; Start at 14:45 Lactated Ringer's 1,000 ml @ 50 mls/hr Q20H IV ; Start 08/05/16 at 07:00; Stop 08/05/16 at 18:13; Status DC Daptomycin/Sodium Chloride (Cubicin/Iv Sodium Chloride 0.9% 50ml) 50 ml @ 100 mls/hr Q24H IV ; Start 08/03/16 at 11:00; Status Cancel Potassium Chloride (Klor-Con) 40 meq 1X ONCE PO Last administered on 17:41; Start 08/02/16 at 17:15; Stop 08/02/16 at 17:18; Status DC Potassium Chloride (Klor-Con) 40 meq BIDWMEALS PO ; Start 08/03/16 at 08:00; Stop 08/03/16 at 11:08; Status DC Morphine Sulfate 5 mg 1X ONCE IV Last administered on 08/02/16 21:45; Start 08/02/16 at 21:30; Stop 08/02/16 at 21:33; Status DC Lorazepam (Ativan) 1 mg 1X ONCE IV Last administered on 08/02/16 21:30; Start 08/02/16 at 21:30; Stop 08/02/16 at 21:33; Status DC Acetaminophen (Acetaminophen Supp) 650 mg PRN Q6HRS PRN [place] MILD PAIN / TEMP Last administered on 08/05/16 05:10; Start 08/03/16 at 01:15 Albuterol/ Ipratropium (Duoneb) 3 ml RTQID NEB Last administered on 08/08/16 07:41; Start 08/03/16 at 08:00 Budesonide (Pulmicort) 0.5 mg RTBID NEB Last administered on 08/08/16 07:41; Start 08/03/16 at 08:00 Pantoprazole Sodium 40 mg 40 mg 1X ONCE IVP Last administered on 08/03/16 10: 06; Start 08/03/16 at 08:00; Stop 08/03/16 at 08:01; Status DC Daptomycin/Sodium Chloride (Cubicin/Iv Sodium Chloride 0.9% 50ml) 50 ml @ 100 mls/hr Q24H IV Last administered on 08/04/16 10:03; Start 08/04/16 at 10:00; Stop 08/04/16 at 10:33; Status DC Lorazepam (Ativan) 0.5 mg PRN Q6HRS PRN IV ANXIETY / AGITATION Last administered on 08/04/16 09:12; Start 08/03/16 at 11:15; Stop 08/07/16 at 11:02 ; Status DC Lorazepam (Ativan) 0.5 mg 1X ONCE IV Last administered on 08/04/16 10:00; Start 08/04/16 at 10:00; Stop 08/04/16 at 10:01; Status DC Morphine Sulfate 5 mg 1X ONCE IV Last administered on 08/04/16 10:00; Start 08/04/16 at 10:00; Stop 08/04/16 at 10:01; Status DC Lorazepam 0.5 mg 0.5 mg PRN Q4HRS PRN IV ANXIETY / AGITATION Last administered on 08/08/16 04:44; Start 08/04/16 at 10:00 Nafcillin Sodium 2 gm/Sodium Chloride 100 ml @ 200 mls/hr Q4HRS IV Last administered on 08/08/16 09:01; Start 08/04/16 at 12:00 Propofol (Diprivan) 100 ml @ As Directed STK-MED ONCE IV ; Start 08/04/16 at 16 :10; Stop 08/04/16 at 16:11; Status DC Succinylcholine Chloride (Anectine) 200 mg STK-MED ONCE .ROUTE ; Start 08/04/16 at 16:14; Stop 08/04/16 at 16:15; Status DC Succinylcholine Chloride 200 mg 200 mg 1X ONCE IV ; Start 08/04/16 at 16:45; Stop 08/04/16 at 16:46; Status DC Propofol (Diprivan) 100 ml @ 0 mls/hr CONT PRN IV SEE I/O RECORD Last administered on 08/08/16 09:09; Start 08/04/16 at 16:45 Lorazepam (Ativan) 0.5 mg 1X ONCE IV Last administered on 08/04/16 16:45; Start 08/04/16 at 16:45; Stop 08/04/16 at 16:46; Status DC Morphine Sulfate 5 mg 5 mg 1X ONCE IV Last administered on 08/04/16 16:44; Start 08/04/16 at 16:45; Stop 08/04/16 at 16:46; Status DC Fentanyl Citrate (Fentanyl 600 Mcg/30 ml ROD POINTER) 30 ml @ 0 mls/hr CONT PRN IV PROTOCOL Last administered on 08/08/16 08:59; Start 08/04/16 at 16:45 Chlorhexidine Gluconate (Peridex) 15 ml BID MM Last administered on 08/08/16 09:01; Start 08/04/16 at 21:00 Famotidine 20 mg 20 mg BID IVP Last administered on 08/08/16 09:02; Start at 17:00 Sodium Chloride (Iv Sodium Chloride 0.9% 1000ml Bag) 1,000 ml @ 100 mls/hr Q10H IV Last administered on 08/07/16 04:35; Start 08/05/16 at 09:00; Stop at 08:59; Status DC Succinylcholine Chloride (Anectine) 200 mg STK-MED ONCE .ROUTE ; Start 08/04/16 at 16:00; Stop 08/05/16 at 12:32; Status DC Lorazepam (Ativan) 2 mg 1X ONCE IV Last administered on 08/05/16 20:43; Start 08/05/16 at 21:00; Stop 08/05/16 at 21:01; Status DC Furosemide (Lasix) 40 mg 1X PRN PRN IV blood transfusion Last administered on 14:17; Start 08/06/16 at 08:00; Stop 08/07/16 at 07:59; Status DC Sodium Bicarbonate 50 meq 1X ONCE IV Last administered on 08/06/16 14:06; Start 08/06/16 at 12:00; Stop 08/06/16 at 12:01; Status DC Calcium Chloride 1,000 mg STK-MED ONCE IV ; Start 08/04/16 at 12:00; Stop at 15:13; Status DC Epinephrine HCl (Epinephrine Syringe) 2 mg STK-MED ONCE .ROUTE ; Start 08/04/16 at 12:00; Stop 08/06/16 at 15:13; Status DC Sodium Bicarbonate 100 meq 100 meq STK-MED ONCE .ROUTE ; Start 08/04/16 at 12:00 ; Stop 08/06/16 at 15:13; Status DC Amino Acids/ Glycerin/ Electrolytes (Procalamine) 1,000 ml @ 100 mls/hr Q10H IV Last administered on 08/08/16 02:33; Start 08/07/16 at 10:00 Enoxaparin Sodium (Lovenox 40mg Syringe) 40 mg Q24H SQ Last administered on 14:00; Start 08/07/16 at 13:00 Vecuronium [place] (Norcuron Bolus) 10 mg STK-MED ONCE IV ; Start 08/07/16 at 13 :56; Stop 08/07/16 at 13:57; Status DC Vecuronium [place] (Norcuron Bolus) 6 mg 1X ONCE IV Last administered on 14:06; Start 08/07/16 at 14:00; Stop 08/07/16 at 14:05; Status DC Active Scripts Active Reported No Known Medications Prior To Admisstion (Info) Each 1 Each Vitals/I & O Vital Sign - Last 24 Hours 08/07/16 08/07/16 08/07/16 08/07/16 12:00 12:00 13:00 13:47 Temp 98.5 98.5 Pulse 104 128 Resp 55 60 B/P 119/71 146/81 Pulse Ox 100 100 100 O2 Delivery Ventilator Mechanical Ventilator Ventilator Ventilator 08/07/16 08/07/16 08/07/16 08/07/16 13:54 14:00 15:00 16:00 Temp 98.8 98.8 Pulse 141 138 130 Resp 33 18 27 27 B/P 124/72 127/72 99/59 Pulse Ox 100 100 100 100 O2 Delivery Ventilator Ventilator Ventilator Ventilator 4/08/07/16 08/07/16 08/07/16 16:00 16:00 17:00 17:42 Pulse 118 Resp 26 B/P 92/53 Pulse Ox 100 100 100 O2 Delivery Mechanical Ventilator Ventilator Ventilator Ventilator 08/07/16 08/07/16 08/07/16 08/07/16 18:00 19:00 20:00 20:00 Temp 99.8 99.8 Pulse 112 112 113 Resp 25 29 29 B/P 104/58 124/60 112/66 Pulse Ox 100 100 100 O2 Delivery Ventilator Ventilator Mechanical Ventilator Ventilator 08/07/16 08/07/16 08/07/16 08/07/16 20:48 20:50 21:00 22:00 Pulse 103 104 Resp 25 29 B/P 83/55 100/60 Pulse Ox 100 100 100 100 O2 Delivery Ventilator Ventilator Ventilator Ventilator 08/07/16 08/08/16 08/08/16 08/08/16 23:00 00:00 00:00 00:04 Temp 99.3 99.3 Pulse 104 103 Resp 27 30 B/P 98/59 99/58 Pulse Ox 100 100 100 O2 Delivery Ventilator Ventilator Mechanical Ventilator Ventilator 08/08/16 08/08/16 08/08/16 08/08/16 00:30 01:00 01:00 02:00 Pulse 100 102 Resp 27 29 26 29 B/P 90/48 98/53 Pulse Ox 100 100 100 100 O2 Delivery Ventilator Ventilator Ventilator Ventilator 08/08/16 08/08/16 08/08/16 08/08/16 02:20 03:00 04:00 04:00 Temp 98.9 98.9 Pulse 100 108 Resp 26 39 B/P 92/65 97/59 Pulse Ox 100 100 100 O2 Delivery Ventilator Ventilator Mechanical Ventilator Ventilator 08/08/16 08/08/16 08/08/16 08/08/16 04:04 05:00 06:00 07:00 Pulse 108 104 107 Resp 30 32 30 B/P 100/63 93/58 101/61 Pulse Ox 100 100 100 100 O2 Delivery Ventilator Ventilator Ventilator Ventilator 08/08/16 08/08/16 08/08/16 08/08/16 07:25 07:41 08:00 09:09 Pulse Ox 100 100 100 O2 Delivery Ventilator Ventilator Mechanical Ventilator Ventilator Intake and Output 08/07/16 08/07/16 08/08/16 15:00 23:00 07:00 Intake Total 4317 ml Output Total 680 ml 715 ml 730 ml Balance -680 ml -715 ml 3587 ml Nutrition Consultation Dietary Evaluation: Recommendations by RD: PPN/TPN Comments: Pt currently NPO, unable to initiate TF's d/t abdominal distention and possible ileus Rec. continue the PPN at 100 ml/hr If able to place PICC line, rec. TPN due to malnourishment and extended NPO Expected Outcomes/Goals: to meet >75% est nutr needs Interpretation of weight loss: >7.5% in 3 months Malnutrition Findings: Food and Nutrition Intake (Mod: <75% est energy req 7days Body Fat Depletion (Non Severe: Mild Depletion Reduced Deputy Probation Officer Strength: N/A Reduced Deputy Probation Officer Strength (Non-Sev: N/A Malnutrition related to morbid: No Weight Status: Appropriate Fluid Accumulation (N/A): N/A MAYKEL BAUTISTA MD Aug 08, 2016 11:43
[2016-08-08] MEDS ORDERED: SODIUM BICARB ADULT 8.4% 50 MEQ/50 ML DISP.SYRIN. IV ONE (11:45)
--- NOTE | 2016-08-08 12:09 | OP ---
DATE OF SURGERY: INDICATIONS: Persistent infiltrates, respiratory failure, possible alveolar hemorrhage. DESCRIPTION OF PROCEDURE: Informed consent was obtained from the patient's . Risks and benefits were explained. He agreed to proceed with the procedure. Bronch was introduced through the endotracheal tube. The distal tip of the endotracheal tube was clogged with secretions, which were removed with saline irrigation. Further inspection of the airways revealed blood-tinged secretions pooling in the left upper lobe and lingula. Secretions were removed. Further inspection and bronchoalveolar lavage was performed from the left upper lobe and lingula and blood-tinged secretions were seen consistent with alveolar hemorrhage. No endobronchial lesions seen. Left lower lobe was patent. Bronch was introduced into the right lung. No significant purulent secretions seen; however, there was some mucosal erythema seen in the right middle lobe. Bronchoalveolar lavage performed from right middle lobe and the lavage was clear. The patient tolerated the procedure well. IMPRESSION: 1. Focal hemorrhage seen in the left upper lobe and lavage findings consistent with alveolar hemorrhage. 2. Inflamed mucosa in the left upper lobe and lingula and also in the right middle lobe. Bronchoalveolar lavage performed from these areas and follow the results. 3. No endobronchial lesions seen. CARLEY WORKMAN MD DR: GIL/brian JOB#: [id number] / [id number] [place]ERES[place]
[2016-08-08] MEDS: ACETAMINOPHEN 650 MG SUPP.RECT. PR PRN ×2 (12:48→18:50)
[2016-08-08] MEDS: ENOXAPARIN 40 MG/0.4 ML SYRINGE. SQ SCH (13:00)
[2016-08-08] MEDS: NYSTATIN TOPICAL POWDER 15GM BOTTLE. TP SCH (21:53)
[2016-08-09] VITALS (22 sets, daily range): BP systolic 89–133; BP diastolic 48–78
[2016-08-09] MEDS: AMINO AC 3%/ELECTROLYTE/GLYCER 1,000 ML IV SCH (02:00)
[2016-08-09] MEDS: NAFCILLIN 2 GM in IV NORMAL SALINE 100ML 100 ML IV SCH ×2 (04:14→10:10)
[2016-08-09] MEDS: ACETAMINOPHEN 650 MG SUPP.RECT. PR PRN (04:14)
[2016-08-09] MEDS: PROPOFOL 100 ML IV PRN ×5 (04:56→23:01)
--- NOTE | 2016-08-09 06:47 | PDOC ---
Infectious Disease Note Subjective Subjective Intubated/sedated ROS ROS Unobtainable Vital Sign Vital Signs Vital Signs Date Time Temp Pulse Resp B/P Pulse Ox O2 Delivery O2 Flow Rate FiO2 08/09/16 06:00 100.2 118 29 130/74 100 Ventilator 100.2 Physical Exam PHYSICAL EXAM GENERAL: NAD, Intubated HEENT: PERRL, OC/OP - poor dentition NECK: Supple, no JVD, no LN LUNGS: Coarse. Over breathing HEART: S1S2, no gallop, no murmur ABD: Soft, NT, no organomegaly, no rebound, less distension [place] EXT: No edema, no cyanosis [employer]UFA[employer]URING [employer]SEM[employer]: Sedate SKIN: No rash IV: peripheral ok Labs Lab Laboratory Tests Test 08/08/16 08:00 O2 Saturation 99% (92-99) Arterial Blood pH 7.35 (7.35-7.45) Arterial Blood pCO2 at Patient Temp 33mmHg (35-46) Arterial Blood pO2 at Patient Temp 149mmHg (75-108) Arterial Blood HCO3 18mmol/L (21-28) Arterial Blood Base Excess -7mmol/L (-3-3) FiO2 40 Objective Assessment Fever Acute anemia 2 units PRBCs 08/06 Acute Resp failure - Intubated ? developing ARDS. S/p Bronch 08/08. thick plugs. GPC on gram stain Presumptive MSSA 08/01 sepsis - repeat 08/05+ MSSA. cult 08/07 + Hep C IV drug use. Right-sided bacterial endocarditis. -TTE. 3.0 x 2.0cm mobile mass TV -BC NGTD, 08/01 ([facility]). Multiple pulmonary nodules Ileus Renal insufficiency. Severe thrombocytopenia. Leukocytosis. Fever. Hepatosplenomegaly on CT Plan Plan of Care Cont Nafcillin Add Zyvox for better lung penetration Repeat blood cults this am. if remain neg can place PICC F/u labs & cultures KAYLYNN SHAY MD Aug 09, 2016 06:47
[2016-08-09 07:32] LABS: BASO # 0.1 x10^3/uL (0.0-0.2); BASO % 1 % (0-3); EOS % 1 % (0-3); HEMATOCRIT 27.6 % (36.0-47.0); HEMOGLOBIN 8.8 g/dL (12.0-15.5); LYMPH # 1.1 x10^3/uL (1.0-4.8); LYMPH % 5 % (24-48); MEAN CORPUSCULAR HEMOGLOBIN 29 pg (25-35); MEAN CORPUSCULAR HGB CONC 32 g/dL (31-37); MEAN CORPUSCULAR VOLUME 90 fL (79-100); MONO % 6 % (0-9); NEUT % 88 % (31-73); PLATELET COUNT 157 x10^3/uL (140-400); RED BLOOD COUNT 3.08 x10^6/uL (3.50-5.40); WHITE BLOOD COUNT 21.4 x10^3/uL (4.0-11.0)
[2016-08-09 07:36] LABS: CREATININE 1.2 mg/dL (0.6-1.0); GFR 49.3; POTASSIUM 4.3 mmol/L (3.5-5.1)
[2016-08-09] MEDS: FAMOTIDINE 20 MG/2 ML VIAL IVP SCH ×2 (07:57→20:59)
[2016-08-09] MEDS: NYSTATIN TOPICAL POWDER 15GM BOTTLE. TP SCH ×2 (07:57→20:59)
[2016-08-09] MEDS: CHLORHEXIDINE 0.12% 15 ML MOUTHWASH. MM SCH ×2 (07:57→20:59)
[2016-08-09] MEDS: IPRATRPIUM/ALBUTEROL 0.5/2.5MG 3 ML NEBU. NEB SCH ×4 (08:45→20:17)
[2016-08-09] MEDS: BUDESONIDE 0.5 MG/2 ML NEBU. NEB SCH ×2 (08:45→20:17)
[2016-08-09 09:09] LABS: HCO3 ABG 19 mmol/L (21-28); PCO2 ABG 43 mmHg (35-46); PH ABG 7.27 (7.35-7.45); PO2 ABG 118 mmHg (75-108); SAT O2 ABG 98 % (92-99)
[2016-08-09 09:29] LABS: FIO2 ABG 35
[2016-08-09 09:30] LABS: BODY TEMP ABG 101.9 DEG
[2016-08-09] MEDS: IV 1/2 NORMAL SALINE 1,000 ML IV SCH (10:03)
[2016-08-09] MEDS ORDERED: SODIUM BICARBONATE VIAL 150 MEQ in IV DEXTROSE 5% 1,000 ML IV ONE (11:30)
--- NOTE | 2016-08-09 11:47 | PDOC ---
PULMONARY PROGRESS NOTES Subjective remains intubated/sedated very asynchronus breathing failed CPAP trials s/p bronch Vitals Vital Signs Date Time Temp Pulse Resp B/P Pulse Ox O2 Delivery O2 Flow Rate FiO2 08/09/16 09:41 100 Ventilator 08/09/16 08:00 100.9 117 27 133/78 100.9 Comments ros as mentioned as above other sys otherwise neg HEENT: Other (nc at perrl, throat clear, nose inflamed mucosa.....neck, no lap , thyromegaly) Lungs: Other (less rhonchi) Cardiovascular: Other (tacgy) Abdomen: Soft, Non-tender, Other (hepatomegaly) Extremities: Other (edema) Skin: Warm Labs Laboratory Tests Test 08/08/16 05:40 08/08/16 08:00 08/09/16 07:15 08/09/16 09:00 White Blood Count 15.6x10^3/uL (4.0-11.0) 21.4x10^3/uL (4.0-11.0) Red Blood Count 2.79x10^6/uL (3.50-5.40) 3.08x10^6/uL (3.50-5.40) Hemoglobin 8.1g/dL (12.0-15.5) 8.8g/dL (12.0-15.5) Hematocrit 24.7% (36.0-47.0) 27.6% (36.0-47.0) Mean Corpuscular Volume 89fL (79-100) 90fL (79-100) Mean Corpuscular Hemoglobin 29pg (25-35) 29pg (25-35) Mean Corpuscular Hemoglobin Concent 33g/dL (31-37) 32g/dL (31-37) Red Cell Distribution Width 17.0% (11.5-14.5) 17.0% (11.5-14.5) Platelet Count 126x10^3/uL (140-400) 157x10^3/uL (140-400) Neutrophils (%) (Auto) 86% (31-73) 88% (31-73) Lymphocytes (%) (Auto) 5% (24-48) 5% (24-48) Monocytes (%) (Auto) 7% (0-9) 6% (0-9) Eosinophils (%) (Auto) 1% (0-3) 1% (0-3) Basophils (%) (Auto) 1% (0-3) 1% (0-3) Neutrophils # (Auto) 13.4x10^3uL (1.8-7.7) 18.9x10^3uL (1.8-7.7) Lymphocytes # (Auto) 0.8x10^3/uL (1.0-4.8) 1.1x10^3/uL (1.0-4.8) Monocytes # (Auto) 1.0x10^3/uL (0.0-1.1) 1.2x10^3/uL (0.0-1.1) Eosinophils # (Auto) 0.2x10^3/uL (0.0-0.7) 0.1x10^3/uL (0.0-0.7) Basophils # (Auto) 0.1x10^3/uL (0.0-0.2) 0.1x10^3/uL (0.0-0.2) Sodium Level 146mmol/L (136-145) 144mmol/L (136-145) Potassium Level 4.2mmol/L (3.5-5.1) 4.3mmol/L (3.5-5.1) Chloride Level 115mmol/L (98-107) 113mmol/L (98-107) Carbon Dioxide Level 20mmol/L (21-32) 22mmol/L (21-32) Anion Gap 11 (6-14) 9 (6-14) Blood Urea Nitrogen 45mg/dL (7-20) 43mg/dL (7-20) Creatinine 1.3mg/dL (0.6-1.0) 1.2mg/dL (0.6-1.0) Estimated GFR (Cockcroft-Gault) 44.9 49.3 Glucose Level 133mg/dL (70-99) 134mg/dL (70-99) Calcium Level 7.3mg/dL (8.5-10.1) 8.0mg/dL (8.5-10.1) O2 Saturation 99% (92-99) 98% (92-99) Arterial Blood pH 7.35 (7.35-7.45) 7.27 (7.35-7.45) Arterial Blood pCO2 at Patient Temp 33mmHg (35-46) 43mmHg (35-46) Arterial Blood pO2 at Patient Temp 149mmHg (75-108) 118mmHg (75-108) Arterial Blood HCO3 18mmol/L (21-28) 19mmol/L (21-28) Arterial Blood Base Excess -7mmol/L (-3-3) -7mmol/L (-3-3) FiO2 40 35 Laboratory Tests Test 08/09/16 07:15 08/09/16 09:00 White Blood Count 21.4x10^3/uL (4.0-11.0) Red Blood Count 3.08x10^6/uL (3.50-5.40) Hemoglobin 8.8g/dL (12.0-15.5) Hematocrit 27.6% (36.0-47.0) Mean Corpuscular Volume 90fL (79-100) Mean Corpuscular Hemoglobin 29pg (25-35) Mean Corpuscular Hemoglobin Concent 32g/dL (31-37) Red Cell Distribution Width 17.0% (11.5-14.5) Platelet Count 157x10^3/uL (140-400) Neutrophils (%) (Auto) 88% (31-73) Lymphocytes (%) (Auto) 5% (24-48) Monocytes (%) (Auto) 6% (0-9) Eosinophils (%) (Auto) 1% (0-3) Basophils (%) (Auto) 1% (0-3) Neutrophils # (Auto) 18.9x10^3uL (1.8-7.7) Lymphocytes # (Auto) 1.1x10^3/uL (1.0-4.8) Monocytes # (Auto) 1.2x10^3/uL (0.0-1.1) Eosinophils # (Auto) 0.1x10^3/uL (0.0-0.7) Basophils # (Auto) 0.1x10^3/uL (0.0-0.2) Sodium Level 144mmol/L (136-145) Potassium Level 4.3mmol/L (3.5-5.1) Chloride Level 113mmol/L (98-107) Carbon Dioxide Level 22mmol/L (21-32) Anion Gap 9 (6-14) Blood Urea Nitrogen 43mg/dL (7-20) Creatinine 1.2mg/dL (0.6-1.0) Estimated GFR (Cockcroft-Gault) 49.3 Glucose Level 134mg/dL (70-99) Calcium Level 8.0mg/dL (8.5-10.1) O2 Saturation 98% (92-99) Arterial Blood pH 7.27 (7.35-7.45) Arterial Blood pCO2 at Patient Temp 43mmHg (35-46) Arterial Blood pO2 at Patient Temp 118mmHg (75-108) Arterial Blood HCO3 19mmol/L (21-28) Arterial Blood Base Excess -7mmol/L (-3-3) FiO2 35 Medications Active Scripts Medications Dose Route/Sig Days Date Category No Known Medications Prior To Admisstion (Info) Each 1 Each 08/06/16 Reported Comments cxr reviewed 08/08, bilateral patchy nodular infilt Impression . 1. Acute hypoxemic respiratory failure, multifactorial in etiology. 2. Increase R/R while off sedation, suspect due to MA,? withdrawl of drugs, airway secretions, need to r/o CVA 3. Bilateral pulmonary nodules, suspect due to septic emboli. 4. Endocarditis. right sided 5. ? chronic obstructive pulmonary disease. 6. Leukocytosis./fever 7. Anemia. 8. Thrombocytopenia. 9. Hyponatremia. 10. Intravenous drug abuse. 11. Tobacco habituation. 12. MSSA septicemia/pneumonia Plan . AC mode hold CPAP trials ct head/ chest today Bronch with MSSA, d/w Dr Will. will d/c Naf, add zosyn. Zyvox added Bicarb drip transfuse prn lovenox resumed d/w RN and cct 30 min CARLEY WORKMAN MD Aug 09, 2016 11:47
[2016-08-09] MEDS ORDERED: PIP/TAZO PER PHARMACY MC PRN (12:00)
[2016-08-09] MEDS: PIPERACILLIN/TAZOBACTAM 4.5 GM in IV NORMAL SALINE 100ML 100 ML IV SCH ×2 (12:25→18:14)
--- NOTE | 2016-08-09 12:59 | RAD ---
Portable chest, 08/09/2016: History: Fever, respiratory distress Comparison is made to yesterday's study. The ET tube has its tip located well above the sundar. An NG tube extends into the stomach. There are patchy infiltrates and cavitary nodules in both lungs, compatible with septic emboli. Right basilar opacities may have improved slightly over the last several days. There is minimal new infiltrate in the left base partially obscuring the hemidiaphragm. There is no evidence of pneumothorax or definite pleural fluid. IMPRESSION: 1. Stable tube positions. 2. Ongoing patchy pulmonary infiltrates and cavitary nodules compatible with septic emboli.
[2016-08-09] MEDS: ENOXAPARIN 40 MG/0.4 ML SYRINGE. SQ SCH (13:10)
--- NOTE | 2016-08-09 13:24 | PDOC ---
PROGRESS NOTES Chief Complaint Chief Complaint Sepsis ASSESSMENT AND PLAN: 1. Sepsis/endocarditis: initial blood cultures NGTD, but tricuspid valve vegetation on echo. on naficillin as per ID 2. Pneumonia: septic emboli bilat, with worsening oxygenation, on BiPAP, may need intubation. close monitoring w/ABG 3. Hyponatremia, hypernatremia 4. Leukocytosis: persisting unchanged. 2/2 infect, monitor 5. Thrombocytopenia 2/2 sepsis likely: early signs of recovery. no signs of bleed. monitor, transfuse for plts <10 6. Prophylaxis: hold anticoag with low plts; start when plts recovered to >50 7. Abd distension: ileus, resolved 8. hyperkalemia 9. acute resp failure with 1 and 2 10. + bacteremia, staph aureus NGT feeding trial 08/07, 04/22 NS 50CC/H consider tube feeding after bronch 08/08 fu bcx, +staph aureus, off naficillin 08/09, on zosyn, zyvox as per ID fu with pulm, ID, card keep in ICU, intubated, sedated 2u PRBC 08/06, monitor hh daily consider wean ventilation if ok with pulm CC: 40 min History of Present Illness History of Present Illness fever daily, BETter 08/07, again 08/09 intubated, sedated hb 6.8 better to 8 with 2u PRBC 08/06 failed pressure support with agitation bronch 08/08 cont bcx +, staph Vitals Vitals Vital Signs Date Time Temp Pulse Resp B/P Pulse Ox O2 Delivery O2 Flow Rate FiO2 08/09/16 11:52 100 Ventilator 08/09/16 08:00 100.9 117 27 133/78 100.9 Physical Exam Physical Exam INTUBATED ,sedated General: Other (intubated and sedated) Heart: Regular rate, Normal S1, Normal S2 Lungs: Other (less rhonchi) Abdomen: Soft, No tenderness Extremities: No edema Skin: No significant lesion Labs LABS Laboratory Tests Test 08/09/16 07:15 08/09/16 09:00 White Blood Count 21.4x10^3/uL (4.0-11.0) Red Blood Count 3.08x10^6/uL (3.50-5.40) Hemoglobin 8.8g/dL (12.0-15.5) Hematocrit 27.6% (36.0-47.0) Mean Corpuscular Volume 90fL (79-100) Mean Corpuscular Hemoglobin 29pg (25-35) Mean Corpuscular Hemoglobin Concent 32g/dL (31-37) Red Cell Distribution Width 17.0% (11.5-14.5) Platelet Count 157x10^3/uL (140-400) Neutrophils (%) (Auto) 88% (31-73) Lymphocytes (%) (Auto) 5% (24-48) Monocytes (%) (Auto) 6% (0-9) Eosinophils (%) (Auto) 1% (0-3) Basophils (%) (Auto) 1% (0-3) Neutrophils # (Auto) 18.9x10^3uL (1.8-7.7) Lymphocytes # (Auto) 1.1x10^3/uL (1.0-4.8) Monocytes # (Auto) 1.2x10^3/uL (0.0-1.1) Eosinophils # (Auto) 0.1x10^3/uL (0.0-0.7) Basophils # (Auto) 0.1x10^3/uL (0.0-0.2) Sodium Level 144mmol/L (136-145) Potassium Level 4.3mmol/L (3.5-5.1) Chloride Level 113mmol/L (98-107) Carbon Dioxide Level 22mmol/L (21-32) Anion Gap 9 (6-14) Blood Urea Nitrogen 43mg/dL (7-20) Creatinine 1.2mg/dL (0.6-1.0) Estimated GFR (Cockcroft-Gault) 49.3 Glucose Level 134mg/dL (70-99) Calcium Level 8.0mg/dL (8.5-10.1) O2 Saturation 98% (92-99) Arterial Blood pH 7.27 (7.35-7.45) Arterial Blood pCO2 at Patient Temp 43mmHg (35-46) Arterial Blood pO2 at Patient Temp 118mmHg (75-108) Arterial Blood HCO3 19mmol/L (21-28) Arterial Blood Base Excess -7mmol/L (-3-3) FiO2 35 Review of Systems Review of Systems no fever, chills, sob or chest pain Comment Review of Relevant I have reviewed the following items shanta (where applicable) has been applied. Labs Laboratory Tests Test 08/08/16 05:40 08/08/16 08:00 08/09/16 07:15 08/09/16 09:00 White Blood Count 15.6x10^3/uL (4.0-11.0) 21.4x10^3/uL (4.0-11.0) Red Blood Count 2.79x10^6/uL (3.50-5.40) 3.08x10^6/uL (3.50-5.40) Hemoglobin 8.1g/dL (12.0-15.5) 8.8g/dL (12.0-15.5) Hematocrit 24.7% (36.0-47.0) 27.6% (36.0-47.0) Mean Corpuscular Volume 89fL (79-100) 90fL (79-100) Mean Corpuscular Hemoglobin 29pg (25-35) 29pg (25-35) Mean Corpuscular Hemoglobin Concent 33g/dL (31-37) 32g/dL (31-37) Red Cell Distribution Width 17.0% (11.5-14.5) 17.0% (11.5-14.5) Platelet Count 126x10^3/uL (140-400) 157x10^3/uL (140-400) Neutrophils (%) (Auto) 86% (31-73) 88% (31-73) Lymphocytes (%) (Auto) 5% (24-48) 5% (24-48) Monocytes (%) (Auto) 7% (0-9) 6% (0-9) Eosinophils (%) (Auto) 1% (0-3) 1% (0-3) Basophils (%) (Auto) 1% (0-3) 1% (0-3) Neutrophils # (Auto) 13.4x10^3uL (1.8-7.7) 18.9x10^3uL (1.8-7.7) Lymphocytes # (Auto) 0.8x10^3/uL (1.0-4.8) 1.1x10^3/uL (1.0-4.8) Monocytes # (Auto) 1.0x10^3/uL (0.0-1.1) 1.2x10^3/uL (0.0-1.1) Eosinophils # (Auto) 0.2x10^3/uL (0.0-0.7) 0.1x10^3/uL (0.0-0.7) Basophils # (Auto) 0.1x10^3/uL (0.0-0.2) 0.1x10^3/uL (0.0-0.2) Sodium Level 146mmol/L (136-145) 144mmol/L (136-145) Potassium Level 4.2mmol/L (3.5-5.1) 4.3mmol/L (3.5-5.1) Chloride Level 115mmol/L (98-107) 113mmol/L (98-107) Carbon Dioxide Level 20mmol/L (21-32) 22mmol/L (21-32) Anion Gap 11 (6-14) 9 (6-14) Blood Urea Nitrogen 45mg/dL (7-20) 43mg/dL (7-20) Creatinine 1.3mg/dL (0.6-1.0) 1.2mg/dL (0.6-1.0) Estimated GFR (Cockcroft-Gault) 44.9 49.3 Glucose Level 133mg/dL (70-99) 134mg/dL (70-99) Calcium Level 7.3mg/dL (8.5-10.1) 8.0mg/dL (8.5-10.1) O2 Saturation 99% (92-99) 98% (92-99) Arterial Blood pH 7.35 (7.35-7.45) 7.27 (7.35-7.45) Arterial Blood pCO2 at Patient Temp 33mmHg (35-46) 43mmHg (35-46) Arterial Blood pO2 at Patient Temp 149mmHg (75-108) 118mmHg (75-108) Arterial Blood HCO3 18mmol/L (21-28) 19mmol/L (21-28) Arterial Blood Base Excess -7mmol/L (-3-3) -7mmol/L (-3-3) FiO2 40 35 Laboratory Tests Test 08/09/16 07:15 08/09/16 09:00 White Blood Count 21.4x10^3/uL (4.0-11.0) Red Blood Count 3.08x10^6/uL (3.50-5.40) Hemoglobin 8.8g/dL (12.0-15.5) Hematocrit 27.6% (36.0-47.0) Mean Corpuscular Volume 90fL (79-100) Mean Corpuscular Hemoglobin 29pg (25-35) Mean Corpuscular Hemoglobin Concent 32g/dL (31-37) Red Cell Distribution Width 17.0% (11.5-14.5) Platelet Count 157x10^3/uL (140-400) Neutrophils (%) (Auto) 88% (31-73) Lymphocytes (%) (Auto) 5% (24-48) Monocytes (%) (Auto) 6% (0-9) Eosinophils (%) (Auto) 1% (0-3) Basophils (%) (Auto) 1% (0-3) Neutrophils # (Auto) 18.9x10^3uL (1.8-7.7) Lymphocytes # (Auto) 1.1x10^3/uL (1.0-4.8) Monocytes # (Auto) 1.2x10^3/uL (0.0-1.1) Eosinophils # (Auto) 0.1x10^3/uL (0.0-0.7) Basophils # (Auto) 0.1x10^3/uL (0.0-0.2) Sodium Level 144mmol/L (136-145) Potassium Level 4.3mmol/L (3.5-5.1) Chloride Level 113mmol/L (98-107) Carbon Dioxide Level 22mmol/L (21-32) Anion Gap 9 (6-14) Blood Urea Nitrogen 43mg/dL (7-20) Creatinine 1.2mg/dL (0.6-1.0) Estimated GFR (Cockcroft-Gault) 49.3 Glucose Level 134mg/dL (70-99) Calcium Level 8.0mg/dL (8.5-10.1) O2 Saturation 98% (92-99) Arterial Blood pH 7.27 (7.35-7.45) Arterial Blood pCO2 at Patient Temp 43mmHg (35-46) Arterial Blood pO2 at Patient Temp 118mmHg (75-108) Arterial Blood HCO3 19mmol/L (21-28) Arterial Blood Base Excess -7mmol/L (-3-3) FiO2 35 Microbiology 08/07/16 Blood Culture - Final, Complete 08/08/16 Gram Stain - Final, Complete Medications Current Medications Amino Acids/ Glycerin/ Electrolytes (Procalamine) 1,000 ml @ 100 mls/hr Q10H IV Last administered on 08/05/16 02:40; Start 08/02/16 at 03:00; Stop at 08:50; Status DC Morphine Sulfate 2 mg 2 mg PRN Q2HR PRN IV SEVERE PAIN Last administered on 11:59; Start 08/02/16 at 02:30; Stop 08/02/16 at 13:28; Status DC Daptomycin 220 mg/ Sodium Chloride 50 ml @ 100 mls/hr Q24H IV ; Start 08/02/16 at 09:15; Stop 08/02/16 at 15:58; Status DC Cefepime HCl 1 gm/ Sodium Chloride 50 ml @ 100 mls/hr Q12HR IV Last administered on 08/04/16 08:10; Start 08/02/16 at 10:00; Stop 08/04/16 at 10:33 ; Status DC Daptomycin/Sodium Chloride (Cubicin/Iv Sodium Chloride 0.9% 50ml) 50 ml @ 100 mls/hr ONCE ONCE IV ; Start 08/02/16 at 10:00; Stop 08/02/16 at 10:29; Status Cancel Potassium Chloride 40 meq 40 meq 1X ONCE PO Last administered on 08/02/16 10: 17; Start 08/02/16 at 09:45; Stop 08/02/16 at 09:46; Status DC Daptomycin/Sodium Chloride (Cubicin/Iv Sodium Chloride 0.9% 50ml) 50 ml @ 100 mls/hr Q24H IV Last administered on 08/03/16 09:43; Start 08/02/16 at 10:15; Stop 08/03/16 at 10:29; Status DC Potassium Chloride (Klor-Con) 40 meq 1X ONCE PO Last administered on 12:57; Start 08/02/16 at 12:30; Stop 08/02/16 at 12:36; Status DC Morphine Sulfate 5 mg PRN Q2HRS PRN IV MODERATE TO SEVERE PAIN Last administered on 08/04/16 08:16; Start 08/02/16 at 13:30 Morphine Sulfate 8 mg PRN Q2HRS PRN IV MODERATE TO SEVERE PAIN Last administered on 08/04/16 14:58; Start 08/02/16 at 13:30 Acetaminophen 650 mg 650 mg PRN Q6HRS PRN PO TEMP GREATER THAN 100.4; Start at 14:45 Lactated Ringer's 1,000 ml @ 50 mls/hr Q20H IV ; Start 08/05/16 at 07:00; Stop 08/05/16 at 18:13; Status DC Daptomycin/Sodium Chloride (Cubicin/Iv Sodium Chloride 0.9% 50ml) 50 ml @ 100 mls/hr Q24H IV ; Start 08/03/16 at 11:00; Status Cancel Potassium Chloride (Klor-Con) 40 meq 1X ONCE PO Last administered on 17:41; Start 08/02/16 at 17:15; Stop 08/02/16 at 17:18; Status DC Potassium Chloride (Klor-Con) 40 meq BIDWMEALS PO ; Start 08/03/16 at 08:00; Stop 08/03/16 at 11:08; Status DC Morphine Sulfate 5 mg 1X ONCE IV Last administered on 08/02/16 21:45; Start 08/02/16 at 21:30; Stop 08/02/16 at 21:33; Status DC Lorazepam (Ativan) 1 mg 1X ONCE IV Last administered on 08/02/16 21:30; Start 08/02/16 at 21:30; Stop 08/02/16 at 21:33; Status DC Acetaminophen (Acetaminophen Supp) 650 mg PRN Q6HRS PRN [place] MILD PAIN / TEMP Last administered on 08/09/16 04:14; Start 08/03/16 at 01:15 Albuterol/ Ipratropium (Duoneb) 3 ml RTQID NEB Last administered on 08/09/16 11:52; Start 08/03/16 at 08:00 Budesonide (Pulmicort) 0.5 mg RTBID NEB Last administered on 08/09/16 08:45; Start 08/03/16 at 08:00 Pantoprazole Sodium 40 mg 40 mg 1X ONCE IVP Last administered on 08/03/16 10: 06; Start 08/03/16 at 08:00; Stop 08/03/16 at 08:01; Status DC Daptomycin/Sodium Chloride (Cubicin/Iv Sodium Chloride 0.9% 50ml) 50 ml @ 100 mls/hr Q24H IV Last administered on 08/04/16 10:03; Start 08/04/16 at 10:00; Stop 08/04/16 at 10:33; Status DC Lorazepam (Ativan) 0.5 mg PRN Q6HRS PRN IV ANXIETY / AGITATION Last administered on 08/04/16 09:12; Start 08/03/16 at 11:15; Stop 08/07/16 at 11:02 ; Status DC Lorazepam (Ativan) 0.5 mg 1X ONCE IV Last administered on 08/04/16 10:00; Start 08/04/16 at 10:00; Stop 08/04/16 at 10:01; Status DC Morphine Sulfate 5 mg 1X ONCE IV Last administered on 08/04/16 10:00; Start 08/04/16 at 10:00; Stop 08/04/16 at 10:01; Status DC Lorazepam 0.5 mg 0.5 mg PRN Q4HRS PRN IV ANXIETY / AGITATION Last administered on 08/08/16 14:49; Start 08/04/16 at 10:00 Nafcillin Sodium 2 gm/Sodium Chloride 100 ml @ 200 mls/hr Q4HRS IV Last administered on 08/09/16 10:10; Start 08/04/16 at 12:00; Stop 08/09/16 at 11:49 ; Status DC Propofol (Diprivan) 100 ml @ As Directed STK-MED ONCE IV ; Start 08/04/16 at 16 :10; Stop 08/04/16 at 16:11; Status DC Succinylcholine Chloride (Anectine) 200 mg STK-MED ONCE .ROUTE ; Start 08/04/16 at 16:14; Stop 08/04/16 at 16:15; Status DC Succinylcholine Chloride 200 mg 200 mg 1X ONCE IV ; Start 08/04/16 at 16:45; Stop 08/04/16 at 16:46; Status DC Propofol (Diprivan) 100 ml @ 0 mls/hr CONT PRN IV SEE I/O RECORD Last administered on 08/09/16 13:09; Start 08/04/16 at 16:45 Lorazepam (Ativan) 0.5 mg 1X ONCE IV Last administered on 08/04/16 16:45; Start 08/04/16 at 16:45; Stop 08/04/16 at 16:46; Status DC Morphine Sulfate 5 mg 5 mg 1X ONCE IV Last administered on 08/04/16 16:44; Start 08/04/16 at 16:45; Stop 08/04/16 at 16:46; Status DC Fentanyl Citrate (Fentanyl 600 Mcg/30 ml [employer]) 30 ml @ 0 mls/hr CONT PRN IV PROTOCOL Last administered on 08/09/16 09:58; Start 08/04/16 at 16:45 Chlorhexidine Gluconate (Peridex) 15 ml BID MM Last administered on 08/09/16 07:57; Start 08/04/16 at 21:00 Famotidine 20 mg 20 mg BID IVP Last administered on 08/09/16 07:57; Start at 17:00 Sodium Chloride (Iv Sodium Chloride 0.9% 1000ml Bag) 1,000 ml @ 100 mls/hr Q10H IV Last administered on 08/07/16 04:35; Start 08/05/16 at 09:00; Stop at 08:59; Status DC Succinylcholine Chloride (Anectine) 200 mg STK-MED ONCE .ROUTE ; Start 08/04/16 at 16:00; Stop 08/05/16 at 12:32; Status DC Lorazepam (Ativan) 2 mg 1X ONCE IV Last administered on 08/05/16 20:43; Start 08/05/16 at 21:00; Stop 08/05/16 at 21:01; Status DC Furosemide (Lasix) 40 mg 1X PRN PRN IV blood transfusion Last administered on 14:17; Start 08/06/16 at 08:00; Stop 08/07/16 at 07:59; Status DC Sodium Bicarbonate 50 meq 1X ONCE IV Last administered on 08/06/16 14:06; Start 08/06/16 at 12:00; Stop 08/06/16 at 12:01; Status DC Calcium Chloride 1,000 mg STK-MED ONCE IV ; Start 08/04/16 at 12:00; Stop at 15:13; Status DC Epinephrine HCl (Epinephrine Syringe) 2 mg STK-MED ONCE .ROUTE ; Start 08/04/16 at 12:00; Stop 08/06/16 at 15:13; Status DC Sodium Bicarbonate 100 meq 100 meq STK-MED ONCE .ROUTE ; Start 08/04/16 at 12:00 ; Stop 08/06/16 at 15:13; Status DC Amino Acids/ Glycerin/ Electrolytes (Procalamine) 1,000 ml @ 100 mls/hr Q10H IV Last administered on 08/08/16 12:33; Start 08/07/16 at 10:00; Stop at 09:42; Status DC Enoxaparin Sodium (Lovenox 40mg Syringe) 40 mg Q24H SQ Last administered on 13:10; Start 08/07/16 at 13:00 Vecuronium [place] (Norcuron Bolus) 10 mg STK-MED ONCE IV ; Start 08/07/16 at 13 :56; Stop 08/07/16 at 13:57; Status DC Vecuronium [place] (Norcuron Bolus) 6 mg 1X ONCE IV Last administered on 14:06; Start 08/07/16 at 14:00; Stop 08/07/16 at 14:05; Status DC Sodium Bicarbonate 50 meq 1X ONCE IV Last administered on 08/08/16 11:46; Start 08/08/16 at 11:45; Stop 08/08/16 at 11:46; Status DC Nystatin 1 james 1 james BID TP Last administered on 08/09/16 07:57; Start at 21:00 Linezolid 300 ml @ 300 mls/hr Q12HR IV Last administered on 08/09/16 07:57; Start 08/09/16 at 09:00 Sodium Chloride 1,000 ml @ 50 mls/hr Q20H IV Last administered on 08/09/16 10 :03; Start 08/09/16 at 09:45 Sodium Bicarbonate/ Dextrose 1,150 ml @ 100 mls/hr 1X ONCE IV Last administered on 08/09/16 12:25; Start 08/09/16 at 11:30; Stop 08/09/16 at 22:59 Piperacillin Sod/ Tazobactam Sod 1 each 1 each PRN DAILY PRN MC SEE COMMENTS; Start 08/09/16 at 12:00 Piperacillin Sod/ Tazobactam Sod/ Sodium Chloride (Zosyn/Iv Sodium Chloride 0.9 % 100ml) 100 ml @ 200 mls/hr Q6HRS IV Last administered on 08/09/16 12:25; Start 08/09/16 at 12:30 Active Scripts Active Reported No Known Medications Prior To Admisstion (Info) Each 1 Each Vitals/I & O Vital Sign - Last 24 Hours 08/08/16 08/08/16 08/08/16 08/08/16 14:00 15:00 15:33 16:00 Temp 102.1 102.1 Pulse 116 118 114 Resp 30 30 39 B/P 115/74 132/76 108/67 Pulse Ox 100 100 100 100 O2 Delivery Ventilator Ventilator Ventilator Ventilator 08/08/16 08/08/16 08/08/16 08/08/16 16:00 17:00 17:08 18:00 Pulse 114 118 Resp 30 30 B/P 133/73 117/79 Pulse Ox 100 100 100 O2 Delivery Mechanical Ventilator Ventilator Ventilator Ventilator 08/08/16 08/08/16 08/08/16 08/08/16 19:00 19:30 19:30 20:00 Temp 101.4 101.4 Pulse 116 113 Resp 23 28 B/P 131/73 116/67 Pulse Ox 100 100 100 O2 Delivery Ventilator Mechanical Ventilator Ventilator Ventilator 08/08/16 08/08/16 08/08/16 08/08/16 21:00 22:00 23:00 23:03 Pulse 112 114 111 Resp 30 28 27 B/P 120/67 116/58 110/61 Pulse Ox 100 100 100 100 O2 Delivery Ventilator Ventilator Ventilator Ventilator 08/09/16 08/09/16 08/09/16 08/09/16 00:00 00:00 01:00 01:34 Temp 99.0 99.0 Pulse 113 109 Resp 28 26 B/P 108/61 116/69 Pulse Ox 100 100 100 O2 Delivery Ventilator Mechanical Ventilator Ventilator Ventilator 08/09/16 08/09/16 08/09/16 08/09/16 02:00 02:22 02:56 03:00 Pulse 116 113 Resp 27 29 26 B/P 107/58 124/69 Pulse Ox 100 100 100 100 O2 Delivery Ventilator Ventilator Ventilator Ventilator 08/09/16 08/09/16 08/09/16 08/09/16 03:18 04:00 04:30 05:00 Temp 101.4 101.4 Pulse 114 117 Resp 28 25 B/P 109/70 113/61 Pulse Ox 100 100 100 O2 Delivery Ventilator Ventilator Mechanical Ventilator Ventilator 08/09/16 08/09/16 08/09/16 08/09/16 05:24 06:00 07:00 08:00 Temp 100.2 100.9 100.2 100.9 Pulse 118 118 117 Resp 27 B/P 130/74 122/68 133/78 Pulse Ox 100 100 98 100 O2 Delivery Ventilator Ventilator Ventilator Ventilator 08/09/16 08/09/16 08/09/16 08/09/16 08:00 08:46 09:41 11:52 Pulse Ox 100 100 100 O2 Delivery Mechanical Ventilator Ventilator Ventilator Ventilator Intake and Output 08/08/16 08/08/16 08/09/16 15:00 23:00 07:00 Intake Total 200 ml 1895.62 ml 984 ml Output Total 475 ml 515 ml 450 ml Balance -275 ml 1380.62 ml 534 ml Nutrition Consultation Dietary Evaluation: Recommendations by RD: PPN/TPN Comments: Pt currently NPO TF with Fibersource HN running at 35ml/hr, flushes 140ml q4h RN plans to increase to goal rate of 45ml/hr this morning Expected Outcomes/Goals: initiation of TF's: met to meet >75% est nutr needs: new goal Interpretation of weight loss: >7.5% in 3 months Malnutrition Findings: Food and Nutrition Intake (Mod: <75% est energy req 7days Body Fat Depletion (Non Severe: Mild Depletion Reduced Green End Man Strength: N/A Reduced Green End Man Strength (Non-Sev: N/A Malnutrition related to morbid: No Weight Status: Appropriate Fluid Accumulation (N/A): N/A MAYKEL BAUTISTA MD Aug 09, 2016 13:24
[2016-08-09] MEDS: VECURONIUM BOLUS 10 MG VIAL. IV PRN (13:40)
--- NOTE | 2016-08-09 14:55 | RAD ---
CT of the head without contrast, 08/09/2016: History: Persistent encephalopathy The ventricles are within normal limits in size. There is no shift of the midline structures. There is no evidence of acute intracranial hemorrhage or mass effect. IMPRESSION: The CT of the head without contrast reveals no significant abnormality. PQRS Compliance Statement: One or more of the following individualized dose reduction techniques were utilized for this examination: 1. Automated exposure control 2. Adjustment of the mA and/or kV according to patient size 3. Use of iterative reconstruction technique
--- NOTE | 2016-08-09 14:55 | RAD ---
Indication respiratory failure. Encephalopathy. Suspect sepsis. Axial noncontrast imaging through the chest was performed. No prior CT imaging of the chest is available. Note is made of a plain film examination earlier this day. Endotracheal tube is appropriately positioned above the sundar. Nasogastric tube is in the stomach. An acute or definite significant finding in the visualized upper abdomen is not seen. There is probable mild hepatomegaly There are probable nodules in both lobes of the thyroid. There are multiple cavitary lesions in both lungs with associated moderately thick coppola. The findings are most compatible with septic pulmonary emboli. There is a small to moderate right pleural effusion and a small left. Additional volume loss at the lung bases may reflect atelectasis or pneumonia. An infiltrate is additionally noted in the left upper lobe compatible with pneumonia. There is a curvilinear" mass" in the right paratracheal area probably reflecting a prominent superior vena cava. Adenopathy is felt much less likely. Additional evaluation could be obtained with IV contrast. Significant adenopathy in the mediastinum or hilar areas is not suggested. IMPRESSION: Multiple cavitary lesions in both lungs most compatible with septic pulmonary emboli. Small to moderate right pleural effusion and small left. There is significant volume loss at the lung bases left greater than right which may reflect atelectasis or pneumonia. Additional infiltrates are seen in the left upper lobe and lingula which are probably secondary to inflammatory, pneumonic, foci. 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 Automated exposure control 2. Adjustment of the mA and/or kV according to patient size 3. Use of iterative reconstruction technique
--- NOTE | 2016-08-09 15:50 | CARD ---
APPROVED REPORT EXAM: LIMITED Two-dimensional and echocardiogram with Doppler and color Doppler. Other Information Quality : Good INDICATION LV Function:Systolic Re-Evaluate Right Heart Vegetation Mitral Valve MV E Ewzarmmy82.9cm/sMV DECEL [id number] MV A Ulhghmuj89.1cm/sE/A Ratio1.1 TDI Lateral E' P. V12.16cm/sMedial E' P. V11.58cm/s E/Lateral E'6.6E/Medial E'6.9 Tricuspid Valve TR P. [id number]/sRAP [id number] TR Peak Gr.[id number] LEFT VENTRICLE Left ventricular systolic function is normal. The Ejection Fraction is estimated at 50%. There is nor mal LV segmental wall motion. MITRAL VALVE The mitral valve is normal in structure and function. There is no evidence of mitral valve prolapse. There is no mitral valve stenosis. Doppler and Color Flow revealed trace mitral valve regurgitation. TRICUSPID VALVE Doppler and Color Flow revealed moderate tricuspid regurgitation. The PA pressure was estimated at 52 mmHg. The tricuspid valve vegetation has significantly decreased in size. It is now 1 cm in circumfe rence. There is no tricuspid valve stenosis. GREAT VESSELS The IVC is dilated and collapses <50% with inspiration. PERICARDIAL EFFUSION There is no evidence of significant pericardial effusion. Critical Notification Critical Value: No <Conclusion> Left ventricular systolic function is normal. The Ejection Fraction is estimated at 50%. There is normal LV segmental wall motion. The tricuspid valve vegetation has significantly decreased in size. It is now 1 cm in circumference. Doppler and Color Flow revealed moderate tricuspid regurgitation. The PA pressure was estimated at 52 mmHg.
--- NOTE | 2016-08-09 17:34 | PATHOLOGY ---
CYTOPATHOLOGY REPORT CLINICAL HISTORY: Not provided. SPECIMEN(S) RECEIVED: A.Bronchoalveolar lavage, SHANE B.Bronchoalveolar lavage, RML FINAL DIAGNOSIS: A. Left upper lobe bronchoalveolar lavage, ThinPrep: - Atypical cells identified. - Few atypical cells, focally reactive bronchial epithelial cells, and pulmonary macrophages are identified within a background of partially obscuring acute inflammation. B. Right middle lobe bronchoalveolar lavage, ThinPrep: - No malignant cells identified. - Paucicellular specimen with bronchial epithelial cells, pulmonary macrophages and few inflammatory cells identified within a mucoid background. (JPM:[email or web address]; d/t: 08/09/16) PATHOLOGIST: Kevin Farias M.D. REPORT ELECTRONICALLY SIGNED BY: Kevin Farias M.D. DATE/TIME: 08/09/2016 17:32 GROSS PATHOLOGY: A. Bronchoalveolar lavage, SHANE: The specimen is submitted unfixed, labeled "Alina Wilson". Received by the Cytology Department is three mL of cloudy pink fluid. One ThinPrep slide was prepared. B. Bronchoalveolar lavage, RML: The specimen is submitted unfixed, labeled "Alina Wilson". Received by the Cytology Department is one mL of clear colorless fluid. One ThinPrep slide was prepared. (clt 08.08.2016) RF DESIGN ENGINEER(S): JESSIE Hernandez(ASCP)IAC INITIAL CPT CODE(S): A; 57313 B; 66407 Professional services performed by [facility] [address] Technical services performed by [facility] at [address] [place] [address], [place] [address]. PATIENT: ALINA WILSON /AGE: 3 1975 (Age: 41) SEX: F PATIENT #: [id number] ALT CASE #: SPECIMEN COLLECTION DATE: 08/08/2016 SPECIMEN RECEIVED DATE: 08/08/[address] [facility] [address] [place] [address], [address] [place] [address] PHONE: [phone] DIRECTOR: José Luis Sarabia M.D. * * * END OF REPORT * * *
[2016-08-10] VITALS (23 sets, daily range): BP systolic 99–138; BP diastolic 52–79
[2016-08-10] MEDS: ACETAMINOPHEN 325 MG TABLET. PO PRN (00:18)
[2016-08-10] MEDS: PIPERACILLIN/TAZOBACTAM 4.5 GM in IV NORMAL SALINE 100ML 100 ML IV SCH ×4 (00:18→18:38)
[2016-08-10] MEDS: IV 1/2 NORMAL SALINE 1,000 ML IV SCH (00:21)
[2016-08-10 05:25] LABS: BASO # 0.1 x10^3/uL (0.0-0.2); BASO % 1 % (0-3); EOS % 1 % (0-3); HEMATOCRIT 22.9 % (36.0-47.0); HEMOGLOBIN 7.4 g/dL (12.0-15.5); LYMPH # 1.7 x10^3/uL (1.0-4.8); LYMPH % 9 % (24-48); MEAN CORPUSCULAR HEMOGLOBIN 29 pg (25-35); MEAN CORPUSCULAR HGB CONC 32 g/dL (31-37); MEAN CORPUSCULAR VOLUME 90 fL (79-100); MONO % 5 % (0-9); NEUT % 84 % (31-73); PLATELET COUNT 143 x10^3/uL (140-400); RED BLOOD COUNT 2.54 x10^6/uL (3.50-5.40); RED CELL DISTRIBUTION WIDTH 17.6 % (11.5-14.5); WHITE BLOOD COUNT 18.7 x10^3/uL (4.0-11.0)
[2016-08-10] MEDS: PROPOFOL 100 ML IV PRN ×5 (06:06→21:53)
[2016-08-10] MEDS: CHLORHEXIDINE 0.12% 15 ML MOUTHWASH. MM SCH ×2 (07:27→20:42)
[2016-08-10] MEDS: FAMOTIDINE 20 MG/2 ML VIAL IVP SCH ×2 (07:28→20:42)
[2016-08-10] MEDS: NYSTATIN TOPICAL POWDER 15GM BOTTLE. TP SCH ×2 (07:28→20:42)
[2016-08-10] MEDS: IPRATRPIUM/ALBUTEROL 0.5/2.5MG 3 ML NEBU. NEB SCH ×4 (07:55→20:08)
[2016-08-10] MEDS: BUDESONIDE 0.5 MG/2 ML NEBU. NEB SCH ×2 (07:55→20:08)
[2016-08-10 08:05] LABS: CALCIUM 7.4 mg/dL (8.5-10.1); GFR 60.8
[2016-08-10 08:20] LABS: POTASSIUM 2.9 mmol/L (3.5-5.1)
[2016-08-10 08:53] LABS: HCO3 ABG 21 mmol/L (21-28); PCO2 ABG 34 mmHg (35-46); PH ABG 7.42 (7.35-7.45); PO2 ABG 113 mmHg (75-108); SAT O2 ABG 98 % (92-99)
[2016-08-10 09:01] LABS: FIO2 ABG 35
[2016-08-10] MEDS ORDERED: POTASSIUM CHLORIDE 20MEQ 50 ML IV SCH (09:30)
--- NOTE | 2016-08-10 10:41 | PDOC ---
PULMONARY PROGRESS NOTES Subjective remains intubated/sedated failed CPAP trials bicarb better s/p bronch Vitals Vital Signs Date Time Temp Pulse Resp B/P Pulse Ox O2 Delivery O2 Flow Rate FiO2 08/10/16 10:02 100 Ventilator 08/10/16 06:45 23 08/10/16 06:00 105 109/61 08/10/16 04:00 100.3 100.3 Comments ros as mentioned as above other sys otherwise neg HEENT: Other (nc at perrl, throat clear, nose inflamed mucosa.....neck, no lap , thyromegaly) Lungs: Other (less rhonchi) Cardiovascular: Other (tacgy) Abdomen: Soft, Non-tender, Other (hepatomegaly) Extremities: Other (edema) Skin: Warm Labs Laboratory Tests Test 08/09/16 07:15 08/09/16 09:00 08/10/16 04:30 08/10/16 06:40 White Blood Count 21.4x10^3/uL (4.0-11.0) 18.7x10^3/uL (4.0-11.0) Red Blood Count 3.08x10^6/uL (3.50-5.40) 2.54x10^6/uL (3.50-5.40) Hemoglobin 8.8g/dL (12.0-15.5) 7.4g/dL (12.0-15.5) Hematocrit 27.6% (36.0-47.0) 22.9% (36.0-47.0) Mean Corpuscular Volume 90fL (79-100) 90fL (79-100) Mean Corpuscular Hemoglobin 29pg (25-35) 29pg (25-35) Mean Corpuscular Hemoglobin Concent 32g/dL (31-37) 32g/dL (31-37) Red Cell Distribution Width 17.0% (11.5-14.5) 17.6% (11.5-14.5) Platelet Count 157x10^3/uL (140-400) 143x10^3/uL (140-400) Neutrophils (%) (Auto) 88% (31-73) 84% (31-73) Lymphocytes (%) (Auto) 5% (24-48) 9% (24-48) Monocytes (%) (Auto) 6% (0-9) 5% (0-9) Eosinophils (%) (Auto) 1% (0-3) 1% (0-3) Basophils (%) (Auto) 1% (0-3) 1% (0-3) Neutrophils # (Auto) 18.9x10^3uL (1.8-7.7) 15.7x10^3uL (1.8-7.7) Lymphocytes # (Auto) 1.1x10^3/uL (1.0-4.8) 1.7x10^3/uL (1.0-4.8) Monocytes # (Auto) 1.2x10^3/uL (0.0-1.1) 0.9x10^3/uL (0.0-1.1) Eosinophils # (Auto) 0.1x10^3/uL (0.0-0.7) 0.2x10^3/uL (0.0-0.7) Basophils # (Auto) 0.1x10^3/uL (0.0-0.2) 0.1x10^3/uL (0.0-0.2) Sodium Level 144mmol/L (136-145) 146mmol/L (136-145) Potassium Level 4.3mmol/L (3.5-5.1) 2.9mmol/L (3.5-5.1) Chloride Level 113mmol/L (98-107) 113mmol/L (98-107) Carbon Dioxide Level 22mmol/L (21-32) 24mmol/L (21-32) Anion Gap 9 (6-14) 9 (6-14) Blood Urea Nitrogen 43mg/dL (7-20) 30mg/dL (7-20) Creatinine 1.2mg/dL (0.6-1.0) 1.0mg/dL (0.6-1.0) Estimated GFR (Cockcroft-Gault) 49.3 60.8 Glucose Level 134mg/dL (70-99) 129mg/dL (70-99) Calcium Level 8.0mg/dL (8.5-10.1) 7.4mg/dL (8.5-10.1) O2 Saturation 98% (92-99) Arterial Blood pH 7.27 (7.35-7.45) Arterial Blood pCO2 at Patient Temp 43mmHg (35-46) Arterial Blood pO2 at Patient Temp 118mmHg (75-108) Arterial Blood HCO3 19mmol/L (21-28) Arterial Blood Base Excess -7mmol/L (-3-3) FiO2 35 Test 08/10/16 08:00 O2 Saturation 98% (92-99) Arterial Blood pH 7.42 (7.35-7.45) Arterial Blood pCO2 at Patient Temp 34mmHg (35-46) Arterial Blood pO2 at Patient Temp 113mmHg (75-108) Arterial Blood HCO3 21mmol/L (21-28) Arterial Blood Base Excess -3mmol/L (-3-3) FiO2 35 Laboratory Tests Test 08/10/16 04:30 08/10/16 06:40 08/10/16 08:00 White Blood Count 18.7x10^3/uL (4.0-11.0) Red Blood Count 2.54x10^6/uL (3.50-5.40) Hemoglobin 7.4g/dL (12.0-15.5) Hematocrit 22.9% (36.0-47.0) Mean Corpuscular Volume 90fL (79-100) Mean Corpuscular Hemoglobin 29pg (25-35) Mean Corpuscular Hemoglobin Concent 32g/dL (31-37) Red Cell Distribution Width 17.6% (11.5-14.5) Platelet Count 143x10^3/uL (140-400) Neutrophils (%) (Auto) 84% (31-73) Lymphocytes (%) (Auto) 9% (24-48) Monocytes (%) (Auto) 5% (0-9) Eosinophils (%) (Auto) 1% (0-3) Basophils (%) (Auto) 1% (0-3) Neutrophils # (Auto) 15.7x10^3uL (1.8-7.7) Lymphocytes # (Auto) 1.7x10^3/uL (1.0-4.8) Monocytes # (Auto) 0.9x10^3/uL (0.0-1.1) Eosinophils # (Auto) 0.2x10^3/uL (0.0-0.7) Basophils # (Auto) 0.1x10^3/uL (0.0-0.2) Sodium Level 146mmol/L (136-145) Potassium Level 2.9mmol/L (3.5-5.1) Chloride Level 113mmol/L (98-107) Carbon Dioxide Level 24mmol/L (21-32) Anion Gap 9 (6-14) Blood Urea Nitrogen 30mg/dL (7-20) Creatinine 1.0mg/dL (0.6-1.0) Estimated GFR (Cockcroft-Gault) 60.8 Glucose Level 129mg/dL (70-99) Calcium Level 7.4mg/dL (8.5-10.1) O2 Saturation 98% (92-99) Arterial Blood pH 7.42 (7.35-7.45) Arterial Blood pCO2 at Patient Temp 34mmHg (35-46) Arterial Blood pO2 at Patient Temp 113mmHg (75-108) Arterial Blood HCO3 21mmol/L (21-28) Arterial Blood Base Excess -3mmol/L (-3-3) FiO2 35 Medications Active Scripts Medications Dose Route/Sig Days Date Category No Known Medications Prior To Admisstion (Info) Each 1 Each 08/06/[address] chest diffuse cavitary lesions Impression . 1. Acute hypoxemic respiratory failure, multifactorial in etiology. 2. Increase R/R while off sedation, suspect due to MA,? airway secretions,No CVA, s/p bicarb drip. will try CPAP again today 3. Bilateral pulmonary nodules, suspect due to septic emboli. 4. Endocarditis. right sided, improving vegetations 5. ? chronic obstructive pulmonary disease. 6. Leukocytosis./fever 7. Anemia. 8. Thrombocytopenia. need to dc lovenox 10. Intravenous drug abuse. 11. Tobacco habituation. 12. MSSA septicemia/pneumonia Plan . AC mode d/c sedation re-start CPAP trials ct head/ chest reviewed Bronch with niko KOCH. Zyvox Bicarb drip again today x litre transfuse prn hold lovenox d/w RN and cct 30 min CARLEY WORKMAN MD Aug 10, 2016 10:41
--- NOTE | 2016-08-10 10:59 | PDOC ---
Infectious Disease Note Subjective Subjective Remains intubated. FiO2 35% Sedated. Fevers, Tmax 100.4 Tube feedings present. No concerns voiced at this time. ROS ROS unobtainable Vital Sign Vital Signs Vital Signs Date Time Temp Pulse Resp B/P Pulse Ox O2 Delivery O2 Flow Rate FiO2 08/10/16 10:02 100 Ventilator 08/10/16 06:45 23 08/10/16 06:00 105 109/61 08/10/16 04:00 100.3 100.3 Physical Exam PHYSICAL EXAM GENERAL: Intubated and sedated, mittens HEENT: PERRL, ETT. NGT LUNGS: Clear HEART: S1S2, no gallop, no murmur ABD: Mildly distended, BS present, soft : [place] EXT: No cyanosis. BLE trace edema SAW OFFBEARER: Unresponsive/sedated SKIN: No rash. tattoos IV: ok Labs Lab Laboratory Tests Test 08/10/16 04:30 08/10/16 06:40 08/10/16 08:00 White Blood Count 18.7x10^3/uL (4.0-11.0) Red Blood Count 2.54x10^6/uL (3.50-5.40) Hemoglobin 7.4g/dL (12.0-15.5) Hematocrit 22.9% (36.0-47.0) Mean Corpuscular Volume 90fL (79-100) Mean Corpuscular Hemoglobin 29pg (25-35) Mean Corpuscular Hemoglobin Concent 32g/dL (31-37) Red Cell Distribution Width 17.6% (11.5-14.5) Platelet Count 143x10^3/uL (140-400) Neutrophils (%) (Auto) 84% (31-73) Lymphocytes (%) (Auto) 9% (24-48) Monocytes (%) (Auto) 5% (0-9) Eosinophils (%) (Auto) 1% (0-3) Basophils (%) (Auto) 1% (0-3) Neutrophils # (Auto) 15.7x10^3uL (1.8-7.7) Lymphocytes # (Auto) 1.7x10^3/uL (1.0-4.8) Monocytes # (Auto) 0.9x10^3/uL (0.0-1.1) Eosinophils # (Auto) 0.2x10^3/uL (0.0-0.7) Basophils # (Auto) 0.1x10^3/uL (0.0-0.2) Sodium Level 146mmol/L (136-145) Potassium Level 2.9mmol/L (3.5-5.1) Chloride Level 113mmol/L (98-107) Carbon Dioxide Level 24mmol/L (21-32) Anion Gap 9 (6-14) Blood Urea Nitrogen 30mg/dL (7-20) Creatinine 1.0mg/dL (0.6-1.0) Estimated GFR (Cockcroft-Gault) 60.8 Glucose Level 129mg/dL (70-99) Calcium Level 7.4mg/dL (8.5-10.1) O2 Saturation 98% (92-99) Arterial Blood pH 7.42 (7.35-7.45) Arterial Blood pCO2 at Patient Temp 34mmHg (35-46) Arterial Blood pO2 at Patient Temp 113mmHg (75-108) Arterial Blood HCO3 21mmol/L (21-28) Arterial Blood Base Excess -3mmol/L (-3-3) FiO2 35 Micro 08/09. BLOOD CULTURE Preliminary NO GROWTH AFTER 1 DAY 08/08. bronch. SPUTUM CULT RES 1 Preliminary Staphylococcus aureus Objective Assessment Fever MSSA sepsis 08/01 ([facility]) -Repeat BC positive, 08/05 & 08/07. NGTD 08/09 Right-sided bacterial endocarditis. -TTE. 3.0 x 2.0cm mobile mass TV -BC NGTD, 08/01 ([facility]). Multiple pulmonary nodules Acute Resp failure - Intubated ? developing ARDS. S/p Bronch 08/08. Staph aureus Acute anemia 2 units PRBCs 08/06 IV drug use. Hep C Ileus Renal insufficiency. Severe thrombocytopenia. improved Hepatosplenomegaly on CT Plan Plan of Care Continue Zyvox and Zosyn If BC remain negative, then can place PICC F/u labs & cultures Supportive care Critically ill Patient seen and examined. Chart reviewed. Case discussed with BUSINESS WRITER. Agree with above plan. JAZMIN SOUSA APRN Aug 10, 2016 10:59 JAY LAWLER MD Aug 10, 2016 17:45
[2016-08-10] MEDS ORDERED: POTASSIUM CHLORIDE 20 MEQ/15 ML ORAL LIQUID. PEG ONE (11:00)
[2016-08-10] MEDS ORDERED: SODIUM BICARBONATE VIAL 150 MEQ in IV DEXTROSE 5% 1,000 ML IV SCH (11:00)
[2016-08-10] MEDS: POTASSIUM CHLORIDE 10MEQ 100 ML IV SCH ×4 (11:14→16:28)
--- NOTE | 2016-08-10 12:16 | PDOC ---
PROGRESS NOTES Chief Complaint Chief Complaint Sepsis ASSESSMENT AND PLAN: 1. Sepsis/endocarditis: initial blood cultures NGTD, but tricuspid valve vegetation on echo. on naficillin as per ID 2. Pneumonia: septic emboli bilat, with worsening oxygenation, on BiPAP, may need intubation. close monitoring w/ABG 3. Hyponatremia, hypernatremia 4. Leukocytosis: persisting unchanged. 2/2 infect, monitor 5. Thrombocytopenia 2/2 sepsis likely: early signs of recovery. no signs of bleed. monitor, transfuse for plts <10 6. Prophylaxis: hold anticoag with low plts; start when plts recovered to >50 7. Abd distension: ileus, resolved 8. hyperkalemia, hypokalemia 9. acute resp failure with 1 and 2 10. + bacteremia, staph aureus, MSSA NGT feeding trial 08/07, 1/2 NS 50CC/H consider tube feeding after bronch 08/08 fu bcx, +staph aureus, off naficillin 08/09, on zosyn, zyvox as per ID fu with pulm, ID, card keep in ICU, intubated, sedated 2u PRBC 08/06, monitor hh daily wean trial replete K if bcx keep neg, consider PICC line dvt ppx held as per pulm gi ppx History of Present Illness History of Present Illness fever daily, BETter 08/07, again 08/09 intubated, sedated hb 6.8 better to 8 with 2u PRBC 08/06 failed pressure support with agitation, and tachypnea bronch 08/08 cont bcx +, staph Vitals Vitals Vital Signs Date Time Temp Pulse Resp B/P Pulse Ox O2 Delivery O2 Flow Rate FiO2 08/10/16 11:42 16 Ventilator 08/10/16 10:02 100 08/10/16 06:00 105 109/61 08/10/16 04:00 100.3 100.3 Physical Exam Physical Exam INTUBATED ,sedated General: Other (intubated and sedated) Heart: Regular rate, Normal S1, Normal S2 Lungs: Other (less rhonchi) Abdomen: Soft, No tenderness Extremities: No edema Skin: No significant lesion Labs LABS Laboratory Tests Test 08/10/16 04:30 08/10/16 06:40 08/10/16 08:00 White Blood Count 18.7x10^3/uL (4.0-11.0) Red Blood Count 2.54x10^6/uL (3.50-5.40) Hemoglobin 7.4g/dL (12.0-15.5) Hematocrit 22.9% (36.0-47.0) Mean Corpuscular Volume 90fL (79-100) Mean Corpuscular Hemoglobin 29pg (25-35) Mean Corpuscular Hemoglobin Concent 32g/dL (31-37) Red Cell Distribution Width 17.6% (11.5-14.5) Platelet Count 143x10^3/uL (140-400) Neutrophils (%) (Auto) 84% (31-73) Lymphocytes (%) (Auto) 9% (24-48) Monocytes (%) (Auto) 5% (0-9) Eosinophils (%) (Auto) 1% (0-3) Basophils (%) (Auto) 1% (0-3) Neutrophils # (Auto) 15.7x10^3uL (1.8-7.7) Lymphocytes # (Auto) 1.7x10^3/uL (1.0-4.8) Monocytes # (Auto) 0.9x10^3/uL (0.0-1.1) Eosinophils # (Auto) 0.2x10^3/uL (0.0-0.7) Basophils # (Auto) 0.1x10^3/uL (0.0-0.2) Sodium Level 146mmol/L (136-145) Potassium Level 2.9mmol/L (3.5-5.1) Chloride Level 113mmol/L (98-107) Carbon Dioxide Level 24mmol/L (21-32) Anion Gap 9 (6-14) Blood Urea Nitrogen 30mg/dL (7-20) Creatinine 1.0mg/dL (0.6-1.0) Estimated GFR (Cockcroft-Gault) 60.8 Glucose Level 129mg/dL (70-99) Calcium Level 7.4mg/dL (8.5-10.1) O2 Saturation 98% (92-99) Arterial Blood pH 7.42 (7.35-7.45) Arterial Blood pCO2 at Patient Temp 34mmHg (35-46) Arterial Blood pO2 at Patient Temp 113mmHg (75-108) Arterial Blood HCO3 21mmol/L (21-28) Arterial Blood Base Excess -3mmol/L (-3-3) FiO2 35 Review of Systems Review of Systems no fever, chills, Comment Review of Relevant I have reviewed the following items shanta (where applicable) has been applied. Labs Laboratory Tests Test 08/09/16 07:15 08/09/16 09:00 08/10/16 04:30 08/10/16 06:40 White Blood Count 21.4x10^3/uL (4.0-11.0) 18.7x10^3/uL (4.0-11.0) Red Blood Count 3.08x10^6/uL (3.50-5.40) 2.54x10^6/uL (3.50-5.40) Hemoglobin 8.8g/dL (12.0-15.5) 7.4g/dL (12.0-15.5) Hematocrit 27.6% (36.0-47.0) 22.9% (36.0-47.0) Mean Corpuscular Volume 90fL (79-100) 90fL (79-100) Mean Corpuscular Hemoglobin 29pg (25-35) 29pg (25-35) Mean Corpuscular Hemoglobin Concent 32g/dL (31-37) 32g/dL (31-37) Red Cell Distribution Width 17.0% (11.5-14.5) 17.6% (11.5-14.5) Platelet Count 157x10^3/uL (140-400) 143x10^3/uL (140-400) Neutrophils (%) (Auto) 88% (31-73) 84% (31-73) Lymphocytes (%) (Auto) 5% (24-48) 9% (24-48) Monocytes (%) (Auto) 6% (0-9) 5% (0-9) Eosinophils (%) (Auto) 1% (0-3) 1% (0-3) Basophils (%) (Auto) 1% (0-3) 1% (0-3) Neutrophils # (Auto) 18.9x10^3uL (1.8-7.7) 15.7x10^3uL (1.8-7.7) Lymphocytes # (Auto) 1.1x10^3/uL (1.0-4.8) 1.7x10^3/uL (1.0-4.8) Monocytes # (Auto) 1.2x10^3/uL (0.0-1.1) 0.9x10^3/uL (0.0-1.1) Eosinophils # (Auto) 0.1x10^3/uL (0.0-0.7) 0.2x10^3/uL (0.0-0.7) Basophils # (Auto) 0.1x10^3/uL (0.0-0.2) 0.1x10^3/uL (0.0-0.2) Sodium Level 144mmol/L (136-145) 146mmol/L (136-145) Potassium Level 4.3mmol/L (3.5-5.1) 2.9mmol/L (3.5-5.1) Chloride Level 113mmol/L (98-107) 113mmol/L (98-107) Carbon Dioxide Level 22mmol/L (21-32) 24mmol/L (21-32) Anion Gap 9 (6-14) 9 (6-14) Blood Urea Nitrogen 43mg/dL (7-20) 30mg/dL (7-20) Creatinine 1.2mg/dL (0.6-1.0) 1.0mg/dL (0.6-1.0) Estimated GFR (Cockcroft-Gault) 49.3 60.8 Glucose Level 134mg/dL (70-99) 129mg/dL (70-99) Calcium Level 8.0mg/dL (8.5-10.1) 7.4mg/dL (8.5-10.1) O2 Saturation 98% (92-99) Arterial Blood pH 7.27 (7.35-7.45) Arterial Blood pCO2 at Patient Temp 43mmHg (35-46) Arterial Blood pO2 at Patient Temp 118mmHg (75-108) Arterial Blood HCO3 19mmol/L (21-28) Arterial Blood Base Excess -7mmol/L (-3-3) FiO2 35 Test 4// 08:00 O2 Saturation 98% (92-99) Arterial Blood pH 7.42 (7.35-7.45) Arterial Blood pCO2 at Patient Temp 34mmHg (35-46) Arterial Blood pO2 at Patient Temp 113mmHg (75-108) Arterial Blood HCO3 21mmol/L (21-28) Arterial Blood Base Excess -3mmol/L (-3-3) FiO2 35 Laboratory Tests Test 08/10/16 04:30 08/10/16 06:40 08/10/16 08:00 White Blood Count 18.7x10^3/uL (4.0-11.0) Red Blood Count 2.54x10^6/uL (3.50-5.40) Hemoglobin 7.4g/dL (12.0-15.5) Hematocrit 22.9% (36.0-47.0) Mean Corpuscular Volume 90fL (79-100) Mean Corpuscular Hemoglobin 29pg (25-35) Mean Corpuscular Hemoglobin Concent 32g/dL (31-37) Red Cell Distribution Width 17.6% (11.5-14.5) Platelet Count 143x10^3/uL (140-400) Neutrophils (%) (Auto) 84% (31-73) Lymphocytes (%) (Auto) 9% (24-48) Monocytes (%) (Auto) 5% (0-9) Eosinophils (%) (Auto) 1% (0-3) Basophils (%) (Auto) 1% (0-3) Neutrophils # (Auto) 15.7x10^3uL (1.8-7.7) Lymphocytes # (Auto) 1.7x10^3/uL (1.0-4.8) Monocytes # (Auto) 0.9x10^3/uL (0.0-1.1) Eosinophils # (Auto) 0.2x10^3/uL (0.0-0.7) Basophils # (Auto) 0.1x10^3/uL (0.0-0.2) Sodium Level 146mmol/L (136-145) Potassium Level 2.9mmol/L (3.5-5.1) Chloride Level 113mmol/L (98-107) Carbon Dioxide Level 24mmol/L (21-32) Anion Gap 9 (6-14) Blood Urea Nitrogen 30mg/dL (7-20) Creatinine 1.0mg/dL (0.6-1.0) Estimated GFR (Cockcroft-Gault) 60.8 Glucose Level 129mg/dL (70-99) Calcium Level 7.4mg/dL (8.5-10.1) O2 Saturation 98% (92-99) Arterial Blood pH 7.42 (7.35-7.45) Arterial Blood pCO2 at Patient Temp 34mmHg (35-46) Arterial Blood pO2 at Patient Temp 113mmHg (75-108) Arterial Blood HCO3 21mmol/L (21-28) Arterial Blood Base Excess -3mmol/L (-3-3) FiO2 35 Microbiology 08/09/16 Blood Culture - Preliminary, Resulted NO GROWTH AFTER 1 DAY 08/08/16 AFB Specimen Processing Tissue - Final, Resulted 08/08/16 Acid Fast Bacilli Culture, Resulted Pending 08/08/16 Gram Stain - Final, Resulted 08/08/16 Fungal Culture, Resulted Pending 08/08/16 Fungal Culture Result 1, Resulted Pending Medications Current Medications Amino Acids/ Glycerin/ Electrolytes (Procalamine) 1,000 ml @ 100 mls/hr Q10H IV Last administered on 08/05/16 02:40; Start 08/02/16 at 03:00; Stop at 08:50; Status DC Morphine Sulfate 2 mg 2 mg PRN Q2HR PRN IV SEVERE PAIN Last administered on 11:59; Start 08/02/16 at 02:30; Stop 08/02/16 at 13:28; Status DC Daptomycin 220 mg/ Sodium Chloride 50 ml @ 100 mls/hr Q24H IV ; Start 08/02/16 at 09:15; Stop 08/02/16 at 15:58; Status DC Cefepime HCl 1 gm/ Sodium Chloride 50 ml @ 100 mls/hr Q12HR IV Last administered on 08/04/16 08:10; Start 08/02/16 at 10:00; Stop 08/04/16 at 10:33 ; Status DC Daptomycin/Sodium Chloride (Cubicin/Iv Sodium Chloride 0.9% 50ml) 50 ml @ 100 mls/hr ONCE ONCE IV ; Start 08/02/16 at 10:00; Stop 08/02/16 at 10:29; Status Cancel Potassium Chloride 40 meq 40 meq 1X ONCE PO Last administered on 08/02/16 10: 17; Start 08/02/16 at 09:45; Stop 08/02/16 at 09:46; Status DC Daptomycin/Sodium Chloride (Cubicin/Iv Sodium Chloride 0.9% 50ml) 50 ml @ 100 mls/hr Q24H IV Last administered on 08/03/16 09:43; Start 08/02/16 at 10:15; Stop 08/03/16 at 10:29; Status DC Potassium Chloride (Klor-Con) 40 meq 1X ONCE PO Last administered on 12:57; Start 08/02/16 at 12:30; Stop 08/02/16 at 12:36; Status DC Morphine Sulfate 5 mg PRN Q2HRS PRN IV MODERATE TO SEVERE PAIN Last administered on 08/04/16 08:16; Start 08/02/16 at 13:30 Morphine Sulfate 8 mg PRN Q2HRS PRN IV MODERATE TO SEVERE PAIN Last administered on 08/04/16 14:58; Start 08/02/16 at 13:30 Acetaminophen 650 mg 650 mg PRN Q6HRS PRN PO TEMP GREATER THAN 100.4 Last administered on 08/10/16 00:18; Start 08/02/16 at 14:45 Lactated Ringer's 1,000 ml @ 50 mls/hr Q20H IV ; Start 08/05/16 at 07:00; Stop 08/05/16 at 18:13; Status DC Daptomycin/Sodium Chloride (Cubicin/Iv Sodium Chloride 0.9% 50ml) 50 ml @ 100 mls/hr Q24H IV ; Start 08/03/16 at 11:00; Status Cancel Potassium Chloride (Klor-Con) 40 meq 1X ONCE PO Last administered on 17:41; Start 08/02/16 at 17:15; Stop 08/02/16 at 17:18; Status DC Potassium Chloride (Klor-Con) 40 meq BIDWMEALS PO ; Start 08/03/16 at 08:00; Stop 08/03/16 at 11:08; Status DC Morphine Sulfate 5 mg 1X ONCE IV Last administered on 08/02/16 21:45; Start 08/02/16 at 21:30; Stop 08/02/16 at 21:33; Status DC Lorazepam (Ativan) 1 mg 1X ONCE IV Last administered on 08/02/16 21:30; Start 08/02/16 at 21:30; Stop 08/02/16 at 21:33; Status DC Acetaminophen (Acetaminophen Supp) 650 mg PRN Q6HRS PRN NC MILD PAIN / TEMP Last administered on 08/09/16 04:14; Start 08/03/16 at 01:15 Albuterol/ Ipratropium (Duoneb) 3 ml RTQID NEB Last administered on 08/10/16 07:55; Start 08/03/16 at 08:00 Budesonide (Pulmicort) 0.5 mg RTBID NEB Last administered on 08/10/16 07:55; Start 08/03/16 at 08:00 Pantoprazole Sodium 40 mg 40 mg 1X ONCE IVP Last administered on 08/03/16 10: 06; Start 08/03/16 at 08:00; Stop 08/03/16 at 08:01; Status DC Daptomycin/Sodium Chloride (Cubicin/Iv Sodium Chloride 0.9% 50ml) 50 ml @ 100 mls/hr Q24H IV Last administered on 08/04/16 10:03; Start 08/04/16 at 10:00; Stop 08/04/16 at 10:33; Status DC Lorazepam (Ativan) 0.5 mg PRN Q6HRS PRN IV ANXIETY / AGITATION Last administered on 08/04/16 09:12; Start 08/03/16 at 11:15; Stop 08/07/16 at 11:02 ; Status DC Lorazepam (Ativan) 0.5 mg 1X ONCE IV Last administered on 08/04/16 10:00; Start 08/04/16 at 10:00; Stop 08/04/16 at 10:01; Status DC Morphine Sulfate 5 mg 1X ONCE IV Last administered on 08/04/16 10:00; Start 08/04/16 at 10:00; Stop 08/04/16 at 10:01; Status DC Lorazepam 0.5 mg 0.5 mg PRN Q4HRS PRN IV ANXIETY / AGITATION Last administered on 08/08/16 14:49; Start 08/04/16 at 10:00 Nafcillin Sodium 2 gm/Sodium Chloride 100 ml @ 200 mls/hr Q4HRS IV Last administered on 08/09/16 10:10; Start 08/04/16 at 12:00; Stop 08/09/16 at 11:49 ; Status DC Propofol (Diprivan) 100 ml @ As Directed STK-MED ONCE IV ; Start 08/04/16 at 16 :10; Stop 08/04/16 at 16:11; Status DC Succinylcholine Chloride (Anectine) 200 mg STK-MED ONCE .ROUTE ; Start 08/04/16 at 16:14; Stop 08/04/16 at 16:15; Status DC Succinylcholine Chloride 200 mg 200 mg 1X ONCE IV ; Start 08/04/16 at 16:45; Stop 08/04/16 at 16:46; Status DC Propofol (Diprivan) 100 ml @ 0 mls/hr CONT PRN IV SEE I/O RECORD Last administered on 08/10/16 11:14; Start 08/04/16 at 16:45 Lorazepam (Ativan) 0.5 mg 1X ONCE IV Last administered on 08/04/16 16:45; Start 08/04/16 at 16:45; Stop 08/04/16 at 16:46; Status DC Morphine Sulfate 5 mg 5 mg 1X ONCE IV Last administered on 08/04/16 16:44; Start 08/04/16 at 16:45; Stop 08/04/16 at 16:46; Status DC Fentanyl Citrate (Fentanyl 600 Mcg/30 ml TELEVISION JOURNALIST) 30 ml @ 0 mls/hr CONT PRN IV PROTOCOL Last administered on 08/10/16 11:42; Start 08/04/16 at 16:45 Chlorhexidine Gluconate (Peridex) 15 ml BID MM Last administered on 08/10/16 07:27; Start 08/04/16 at 21:00 Famotidine 20 mg 20 mg BID IVP Last administered on 08/10/16 07:28; Start at 17:00 Sodium Chloride (Iv Sodium Chloride 0.9% 1000ml Bag) 1,000 ml @ 100 mls/hr Q10H IV Last administered on 08/07/16 04:35; Start 08/05/16 at 09:00; Stop at 08:59; Status DC Succinylcholine Chloride (Anectine) 200 mg STK-MED ONCE .ROUTE ; Start 08/04/16 at 16:00; Stop 08/05/16 at 12:32; Status DC Lorazepam (Ativan) 2 mg 1X ONCE IV Last administered on 08/05/16 20:43; Start 08/05/16 at 21:00; Stop 08/05/16 at 21:01; Status DC Furosemide (Lasix) 40 mg 1X PRN PRN IV blood transfusion Last administered on 14:17; Start 08/06/16 at 08:00; Stop 08/07/16 at 07:59; Status DC Sodium Bicarbonate 50 meq 1X ONCE IV Last administered on 08/06/16 14:06; Start 08/06/16 at 12:00; Stop 08/06/16 at 12:01; Status DC Calcium Chloride 1,000 mg STK-MED ONCE IV ; Start 08/04/16 at 12:00; Stop at 15:13; Status DC Epinephrine HCl (Epinephrine Syringe) 2 mg STK-MED ONCE .ROUTE ; Start 08/04/16 at 12:00; Stop 08/06/16 at 15:13; Status DC Sodium Bicarbonate 100 meq 100 meq STK-MED ONCE .ROUTE ; Start 08/04/16 at 12:00 ; Stop 08/06/16 at 15:13; Status DC Amino Acids/ Glycerin/ Electrolytes (Procalamine) 1,000 ml @ 100 mls/hr Q10H IV Last administered on 08/08/16 12:33; Start 08/07/16 at 10:00; Stop at 09:42; Status DC Enoxaparin Sodium (Lovenox 40mg Syringe) 40 mg Q24H SQ Last administered on 13:10; Start 08/07/16 at 13:00; Stop 08/10/16 at 10:43; Status DC Vecuronium [place] (Norcuron Bolus) 10 mg STK-MED ONCE IV ; Start 08/07/16 at 13 :56; Stop 08/07/16 at 13:57; Status DC Vecuronium [place] (Norcuron Bolus) 6 mg 1X ONCE IV Last administered on 14:06; Start 08/07/16 at 14:00; Stop 08/07/16 at 14:05; Status DC Sodium Bicarbonate 50 meq 1X ONCE IV Last administered on 08/08/16 11:46; Start 08/08/16 at 11:45; Stop 08/08/16 at 11:46; Status DC Nystatin 1 james 1 james BID TP Last administered on 08/10/16 07:28; Start at 21:00 Linezolid 300 ml @ 300 mls/hr Q12HR IV Last administered on 08/10/16 07:27; Start 08/09/16 at 09:00 Sodium Chloride 1,000 ml @ 50 mls/hr Q20H IV Last administered on 08/10/16 00 :21; Start 08/09/16 at 09:45 Sodium Bicarbonate/ Dextrose 1,150 ml @ 100 mls/hr 1X ONCE IV Last administered on 08/09/16 12:25; Start 08/09/16 at 11:30; Stop 08/09/16 at 22:59 ; Status DC Piperacillin Sod/ Tazobactam Sod 1 each 1 each PRN DAILY PRN MC SEE COMMENTS; Start 08/09/16 at 12:00 Piperacillin Sod/ Tazobactam Sod/ Sodium Chloride (Zosyn/Iv Sodium Chloride 0.9 % 100ml) 100 ml @ 200 mls/hr Q6HRS IV Last administered on 08/10/16 12:06; Start 08/09/16 at 12:30 Vecuronium [place] 5 mg 5 mg PRN Q4HRS PRN IV INCREASED RESPIRATORY,NOT RELI Last administered on 08/09/16 13:40; Start 08/09/16 at 13:30 Potassium Chloride 50 ml @ 100 mls/hr Q1H IV ; Start 08/10/16 at 09:30; Stop at 10:59; Status Cancel Potassium Chloride (KCl Premix 10meq) 100 ml @ 100 mls/hr Q1H IV Last administered on 08/10/16 12:06; Start 08/10/16 at 10:30; Stop 08/10/16 at 14:29 Potassium Chloride 60 meq 60 meq 1X ONCE PEG Last administered on 08/10/16 11 :16; Start 08/10/16 at 11:00; Stop 08/10/16 at 11:01; Status DC Sodium Bicarbonate/ Dextrose 1,150 ml @ 100 mls/hr [id number] IV Last administered on 08/10/16t 11:14; Start 08/10/16 at 11:00; Stop 08/10/16 at 22:29 Active Scripts Active Reported No Known Medications Prior To Admisstion (Info) Each 1 Each Vitals/I & O Vital Sign - Last 24 Hours 08/09/16 08/09/16 08/09/16 08/09/16 13:00 15:00 16:00 16:00 Temp 99.2 99.2 Pulse 108 98 97 Resp 28 22 22 B/P 124/65 89/55 90/48 Pulse Ox 100 100 100 O2 Delivery Ventilator Ventilator Mechanical Ventilator Ventilator 08/09/16 08/09/16 08/09/16 08/09/16 16:08 18:00 18:40 19:00 Pulse 95 107 Resp 22 B/P 103/59 101/67 Pulse Ox 100 100 100 100 O2 Delivery Ventilator Ventilator Ventilator Ventilator 08/09/16 08/09/16 08/09/16 08/09/16 20:00 20:00 20:18 21:00 Temp 100.4 100.4 Pulse 109 115 Resp 23 B/P 106/61 116/62 Pulse Ox 100 100 100 O2 Delivery Mechanical Ventilator Ventilator Ventilator Ventilator 08/09/16 08/09/16 08/09/16 08/09/16 22:00 22:08 22:35 23:00 Pulse 115 117 Resp 20 21 B/P 119/63 115/63 Pulse Ox 100 100 100 100 O2 Delivery Ventilator Ventilator Ventilator 08/10/16 08/10/16 08/10/16 08/10/16 00:00 00:00 00:20 01:00 Temp 100.8 100.8 Pulse 111 112 Resp 24 B/P 111/61 119/66 Pulse Ox 100 100 100 O2 Delivery Ventilator Mechanical Ventilator Ventilator Ventilator 08/10/16 08/10/16 08/10/16 08/10/16 02:00 03:00 03:15 04:00 Temp 100.3 100.3 Pulse 107 106 103 Resp 23 24 B/P 111/61 109/61 113/63 Pulse Ox 100 100 100 100 O2 Delivery Ventilator Ventilator Ventilator Ventilator 4/22/17 08/10/16 08/10/16 08/10/16 04:00 05:00 05:25 06:00 Pulse 106 105 Resp 26 26 B/P 106/61 109/61 Pulse Ox 100 100 97 O2 Delivery Mechanical Ventilator Ventilator Ventilator Ventilator 08/10/16 08/10/16 08/10/16 08/10/16 06:09 06:45 10:02 11:42 Resp 25 23 16 Pulse Ox 100 100 100 O2 Delivery Ventilator Ventilator Ventilator Ventilator Intake and Output 08/09/16 08/09/16 08/10/16 15:00 23:00 07:00 Intake Total 540 ml 1799 ml 3752.1 ml Output Total 325 ml 555 ml Balance 540 ml 1474 ml 3197.1 ml Nutrition Consultation Dietary Evaluation: Recommendations by RD: PPN/TPN Comments: Pt currently NPO TF with Fibersource HN running at 35ml/hr, flushes 140ml q4h RN plans to increase to goal rate of 45ml/hr this morning Expected Outcomes/Goals: initiation of TF's: met to meet >75% est nutr needs: new goal Interpretation of weight loss: >7.5% in 3 months Malnutrition Findings: Food and Nutrition Intake (Mod: <75% est energy req 7days Body Fat Depletion (Non Severe: Mild Depletion Reduced Insulation Cupola Operator Strength: N/A Reduced Insulation Cupola Operator Strength (Non-Sev: N/A Malnutrition related to morbid: No Weight Status: Appropriate Fluid Accumulation (N/A): N/A MAYKEL BAUTISTA MD Aug 10, 2016 12:16
[2016-08-10] MEDS ORDERED: ENOXAPARIN 40 MG/0.4 ML SYRINGE. SQ SCH (13:00)
[2016-08-10] MEDS: ACETAMINOPHEN 650 MG SUPP.RECT. PR PRN (16:36)
[2016-08-10] MEDS: VECURONIUM BOLUS 10 MG VIAL. IV PRN (20:41)
[2016-08-11] VITALS (29 sets, daily range): BP systolic 89–127; BP diastolic 48–70
[2016-08-11] MEDS: PIPERACILLIN/TAZOBACTAM 4.5 GM in IV NORMAL SALINE 100ML 100 ML IV SCH ×5 (00:06→23:58)
[2016-08-11] MEDS: ACETAMINOPHEN 650 MG SUPP.RECT. PR PRN ×2 (00:13→23:58)
[2016-08-11] MEDS: PROPOFOL 100 ML IV PRN ×6 (01:14→22:59)
[2016-08-11] MEDS: VECURONIUM BOLUS 10 MG VIAL. IV PRN (02:56)
[2016-08-11 05:30] LABS: BASO # 0.1 x10^3/uL (0.0-0.2); BASO % 1 % (0-3); EOS % 1 % (0-3); LYMPH # 1.8 x10^3/uL (1.0-4.8); LYMPH % 10 % (24-48); MEAN CORPUSCULAR HEMOGLOBIN 29 pg (25-35); MEAN CORPUSCULAR HGB CONC 32 g/dL (31-37); MEAN CORPUSCULAR VOLUME 89 fL (79-100); MONO % 6 % (0-9); NEUT % 82 % (31-73); PLATELET COUNT 161 x10^3/uL (140-400); RED CELL DISTRIBUTION WIDTH 16.9 % (11.5-14.5); WHITE BLOOD COUNT 17.4 x10^3/uL (4.0-11.0)
[2016-08-11 05:35] LABS: HEMOGLOBIN 6.6 g/dL (12.0-15.5)
[2016-08-11 05:36] LABS: HEMATOCRIT 20.5 % (36.0-47.0)
[2016-08-11 06:36] LABS: CALCIUM 7.4 mg/dL (8.5-10.1); CREATININE 0.9 mg/dL (0.6-1.0); GFR 68.7; POTASSIUM 3.7 mmol/L (3.5-5.1)
[2016-08-11] MEDS: BUDESONIDE 0.5 MG/2 ML NEBU. NEB SCH ×2 (07:39→20:23)
[2016-08-11] MEDS: IPRATRPIUM/ALBUTEROL 0.5/2.5MG 3 ML NEBU. NEB SCH ×4 (07:39→20:23)
[2016-08-11 08:33] LABS: HCO3 ABG 24 mmol/L (21-28); PCO2 ABG 35 mmHg (35-46); PH ABG 7.46 (7.35-7.45); PO2 ABG 98 mmHg (75-108); SAT O2 ABG 98 % (92-99)
[2016-08-11 08:34] LABS: FIO2 ABG 35
--- NOTE | 2016-08-11 08:39 | PDOC ---
Infectious Disease Note Subjective Subjective Remains intubated. FiO2 35% Sedated. Becomes anxious when titrating down per RN Persistent fevers. Tmax 102.9 Tube feedings Loose stools ROS ROS Unobtainable Vital Sign Vital Signs Vital Signs Date Time Temp Pulse Resp B/P Pulse Ox O2 Delivery O2 Flow Rate FiO2 08/11/16 07:39 100 Ventilator 08/11/16 06:00 99.2 104 24 89/48 99.2 08/10/16 16:00 4.0 Physical Exam PHYSICAL EXAM GENERAL: Intubated and sedated, mittens HEENT: PERRL, ETT. NGT LUNGS: Clear HEART: S1S2, no gallop, no murmur ABD: Mildly distended, BS present, soft, BS present : [place] EXT: No cyanosis. BLE trace edema SHEARER HELPER: Unresponsive/sedated SKIN: No rash. tattoos IV: ok Labs Lab Laboratory Tests Test 08/11/16 04:40 White Blood Count 17.4x10^3/uL (4.0-11.0) Red Blood Count 2.30x10^6/uL (3.50-5.40) Hemoglobin 6.6g/dL (12.0-15.5) Hematocrit 20.5% (36.0-47.0) Mean Corpuscular Volume 89fL (79-100) Mean Corpuscular Hemoglobin 29pg (25-35) Mean Corpuscular Hemoglobin Concent 32g/dL (31-37) Red Cell Distribution Width 16.9% (11.5-14.5) Platelet Count 161x10^3/uL (140-400) Neutrophils (%) (Auto) 82% (31-73) Lymphocytes (%) (Auto) 10% (24-48) Monocytes (%) (Auto) 6% (0-9) Eosinophils (%) (Auto) 1% (0-3) Basophils (%) (Auto) 1% (0-3) Neutrophils # (Auto) 14.3x10^3uL (1.8-7.7) Lymphocytes # (Auto) 1.8x10^3/uL (1.0-4.8) Monocytes # (Auto) 1.1x10^3/uL (0.0-1.1) Eosinophils # (Auto) 0.2x10^3/uL (0.0-0.7) Basophils # (Auto) 0.1x10^3/uL (0.0-0.2) Erythrocyte Sedimentation Rate > 140 (0-25) Sodium Level 143mmol/L (136-145) Potassium Level 3.7mmol/L (3.5-5.1) Chloride Level 110mmol/L (98-107) Carbon Dioxide Level 22mmol/L (21-32) Anion Gap 11 (6-14) Blood Urea Nitrogen 23mg/dL (7-20) Creatinine 0.9mg/dL (0.6-1.0) Estimated GFR (Cockcroft-Gault) 68.7 Glucose Level 118mg/dL (70-99) Calcium Level 7.4mg/dL (8.5-10.1) C-Reactive Protein, Quantitative 301.0mg/L (0-3.3) Micro 08/09. BLOOD CULTURE Preliminary NO GROWTH AFTER 2 DAY Objective Assessment Fever Leukocytosis MSSA sepsis 08/01 ([facility]) -Repeat BC positive, 08/05 & 08/07. NGTD 08/09 Right-sided bacterial endocarditis. -TTE. 3.0 x 2.0cm mobile mass TV Multiple pulmonary nodules Acute Resp failure - Intubated ? developing ARDS. S/p Bronch 08/08. MSSA Acute anemia 2 units PRBCs 08/06 IV drug use. Hep C Ileus Renal insufficiency. Severe thrombocytopenia. improved Hepatosplenomegaly on CT Plan Plan of Care Continue Zyvox and Zosyn ESR >140 & CRP 301.0 F/u labs & cultures Blood transfusion underway Supportive care Critically ill Patient with persistent fever despite abx Cefepime/Dapto 08/02-08/04 Nafcillin 08/04- 08/09 Zosyn/Zyvox 08/09- to date Fever down when she was on Nafcillin Fungal Blood C/S/ Lactatic acid UAC/S Add antifungal If that does not work then consider DC Zosyn- restart Nafcillin Repeat echo to r/o abscess formation JAZMIN [employer] Aug 11, 2016 08:39 JAY LAWLER MD Aug 11, 2016 15:30
[2016-08-11] MEDS: CHLORHEXIDINE 0.12% 15 ML MOUTHWASH. MM SCH ×2 (10:08→20:48)
[2016-08-11] MEDS: FAMOTIDINE 20 MG/2 ML VIAL IVP SCH ×2 (10:08→20:48)
[2016-08-11] MEDS: NYSTATIN TOPICAL POWDER 15GM BOTTLE. TP SCH ×2 (10:08→20:48)
--- NOTE | 2016-08-11 10:29 | PDOC ---
PULMONARY PROGRESS NOTES Subjective remains intubated/sedated continues to CPAP trials due to agitation/ increase R/R bicarb better s/p bronch Vitals Vital Signs Date Time Temp Pulse Resp B/P Pulse Ox O2 Delivery O2 Flow Rate FiO2 08/11/16 09:45 100.2 107 33 113/56 100.2 08/11/16 08:00 Mechanical Ventilator 08/11/16 07:39 100 08/10/16 16:00 4.0 Comments ros as mentioned as above other sys otherwise neg HEENT: Other (nc at perrl, throat clear, nose inflamed mucosa.....neck, no lap , thyromegaly) Lungs: Other (less rhonchi) Cardiovascular: Other (tacgy) Abdomen: Soft, Non-tender, Other (hepatomegaly) Extremities: Other (edema) Skin: Warm Labs Laboratory Tests Test 08/10/16 04:30 08/10/16 06:40 08/10/16 08:00 08/11/16 04:40 White Blood Count 18.7x10^3/uL (4.0-11.0) 17.4x10^3/uL (4.0-11.0) Red Blood Count 2.54x10^6/uL (3.50-5.40) 2.30x10^6/uL (3.50-5.40) Hemoglobin 7.4g/dL (12.0-15.5) 6.6g/dL (12.0-15.5) Hematocrit 22.9% (36.0-47.0) 20.5% (36.0-47.0) Mean Corpuscular Volume 90fL (79-100) 89fL (79-100) Mean Corpuscular Hemoglobin 29pg (25-35) 29pg (25-35) Mean Corpuscular Hemoglobin Concent 32g/dL (31-37) 32g/dL (31-37) Red Cell Distribution Width 17.6% (11.5-14.5) 16.9% (11.5-14.5) Platelet Count 143x10^3/uL (140-400) 161x10^3/uL (140-400) Neutrophils (%) (Auto) 84% (31-73) 82% (31-73) Lymphocytes (%) (Auto) 9% (24-48) 10% (24-48) Monocytes (%) (Auto) 5% (0-9) 6% (0-9) Eosinophils (%) (Auto) 1% (0-3) 1% (0-3) Basophils (%) (Auto) 1% (0-3) 1% (0-3) Neutrophils # (Auto) 15.7x10^3uL (1.8-7.7) 14.3x10^3uL (1.8-7.7) Lymphocytes # (Auto) 1.7x10^3/uL (1.0-4.8) 1.8x10^3/uL (1.0-4.8) Monocytes # (Auto) 0.9x10^3/uL (0.0-1.1) 1.1x10^3/uL (0.0-1.1) Eosinophils # (Auto) 0.2x10^3/uL (0.0-0.7) 0.2x10^3/uL (0.0-0.7) Basophils # (Auto) 0.1x10^3/uL (0.0-0.2) 0.1x10^3/uL (0.0-0.2) Sodium Level 146mmol/L (136-145) 143mmol/L (136-145) Potassium Level 2.9mmol/L (3.5-5.1) 3.7mmol/L (3.5-5.1) Chloride Level 113mmol/L (98-107) 110mmol/L (98-107) Carbon Dioxide Level 24mmol/L (21-32) 22mmol/L (21-32) Anion Gap 9 (6-14) 11 (6-14) Blood Urea Nitrogen 30mg/dL (7-20) 23mg/dL (7-20) Creatinine 1.0mg/dL (0.6-1.0) 0.9mg/dL (0.6-1.0) Estimated GFR (Cockcroft-Gault) 60.8 68.7 Glucose Level 129mg/dL (70-99) 118mg/dL (70-99) Calcium Level 7.4mg/dL (8.5-10.1) 7.4mg/dL (8.5-10.1) O2 Saturation 98% (92-99) Arterial Blood pH 7.42 (7.35-7.45) Arterial Blood pCO2 at Patient Temp 34mmHg (35-46) Arterial Blood pO2 at Patient Temp 113mmHg (75-108) Arterial Blood HCO3 21mmol/L (21-28) Arterial Blood Base Excess -3mmol/L (-3-3) FiO2 35 Erythrocyte Sedimentation Rate > 140 (0-25) C-Reactive Protein, Quantitative 301.0mg/L (0-3.3) Test 08/11/16 07:50 O2 Saturation 98% (92-99) Arterial Blood pH 7.46 (7.35-7.45) Arterial Blood pCO2 at Patient Temp 35mmHg (35-46) Arterial Blood pO2 at Patient Temp 98mmHg (75-108) Arterial Blood HCO3 24mmol/L (21-28) Arterial Blood Base Excess 0mmol/L (-3-3) FiO2 35 Laboratory Tests Test 08/11/16 04:40 08/11/16 07:50 White Blood Count 17.4x10^3/uL (4.0-11.0) Red Blood Count 2.30x10^6/uL (3.50-5.40) Hemoglobin 6.6g/dL (12.0-15.5) Hematocrit 20.5% (36.0-47.0) Mean Corpuscular Volume 89fL (79-100) Mean Corpuscular Hemoglobin 29pg (25-35) Mean Corpuscular Hemoglobin Concent 32g/dL (31-37) Red Cell Distribution Width 16.9% (11.5-14.5) Platelet Count 161x10^3/uL (140-400) Neutrophils (%) (Auto) 82% (31-73) Lymphocytes (%) (Auto) 10% (24-48) Monocytes (%) (Auto) 6% (0-9) Eosinophils (%) (Auto) 1% (0-3) Basophils (%) (Auto) 1% (0-3) Neutrophils # (Auto) 14.3x10^3uL (1.8-7.7) Lymphocytes # (Auto) 1.8x10^3/uL (1.0-4.8) Monocytes # (Auto) 1.1x10^3/uL (0.0-1.1) Eosinophils # (Auto) 0.2x10^3/uL (0.0-0.7) Basophils # (Auto) 0.1x10^3/uL (0.0-0.2) Erythrocyte Sedimentation Rate > 140 (0-25) Sodium Level 143mmol/L (136-145) Potassium Level 3.7mmol/L (3.5-5.1) Chloride Level 110mmol/L (98-107) Carbon Dioxide Level 22mmol/L (21-32) Anion Gap 11 (6-14) Blood Urea Nitrogen 23mg/dL (7-20) Creatinine 0.9mg/dL (0.6-1.0) Estimated GFR (Cockcroft-Gault) 68.7 Glucose Level 118mg/dL (70-99) Calcium Level 7.4mg/dL (8.5-10.1) C-Reactive Protein, Quantitative 301.0mg/L (0-3.3) O2 Saturation 98% (92-99) Arterial Blood pH 7.46 (7.35-7.45) Arterial Blood pCO2 at Patient Temp 35mmHg (35-46) Arterial Blood pO2 at Patient Temp 98mmHg (75-108) Arterial Blood HCO3 24mmol/L (21-28) Arterial Blood Base Excess 0mmol/L (-3-3) FiO2 35 Medications Active Scripts Medications Dose Route/Sig Days Date Category No Known Medications Prior To Admisstion (Info) Each 1 Each 08/06/[address] chest diffuse cavitary lesions Impression . 1. Acute hypoxemic respiratory failure, multifactorial in etiology. 2. Increase R/R while off sedation, suspect due to MA,? airway secretions,No CVA, s/p bicarb drip. will try CPAP again today 3. Bilateral pulmonary nodules, suspect due to septic emboli. 4. Endocarditis. right sided, improving vegetations 5. ? chronic obstructive pulmonary disease. 6. Leukocytosis./fever 7. Anemia. 8. Thrombocytopenia. need to dc lovenox 10. Intravenous drug abuse. 11. Tobacco habituation. 12. MSSA septicemia/pneumonia Plan . AC mode Try off sedation again re-start CPAP trials ct head/ chest reviewed Bronch with niko KOCH. Zyvox transfuse today holding lovenox d/w RN and If continues to fail by Friday, will need Trach. agrees CARLEY WORKMAN MD Aug 11, 2016 10:29
--- NOTE | 2016-08-11 12:01 | PDOC ---
PROGRESS NOTES Chief Complaint Chief Complaint Sepsis ASSESSMENT AND PLAN: 1. Sepsis/endocarditis: initial blood cultures NGTD, but tricuspid valve vegetation on echo. on naficillin as per ID 2. Pneumonia: septic emboli bilat, with worsening oxygenation, on BiPAP, may need intubation. close monitoring w/ABG 3. Hyponatremia, hypernatremia 4. Leukocytosis: persisting unchanged. 2/2 infect, monitor 5. Thrombocytopenia 2/2 sepsis likely: early signs of recovery. no signs of bleed. monitor, transfuse for plts <10 6. Prophylaxis: hold anticoag with low plts; start when plts recovered to >50 7. Abd distension: ileus, resolved 8. hyperkalemia, hypokalemia 9. acute resp failure with 1 and 2 10. + bacteremia, staph aureus, MSSA NGT feeding trial 08/07, 1/ NS 50CC/H consider tube feeding after bronch 08/08 fu bcx, +staph aureus, off naficillin 08/09, on zosyn, zyvox as per ID fu with pulm, ID, card keep in ICU, intubated, sedated 2u PRBC 08/06, monitor hh daily, 1u PRBC 08/11 wean trial replete K if bcx keep neg, consider PICC line dvt ppx held as per pulm gi ppx may eventually need trach PEG History of Present Illness History of Present Illness fever daily, BETter 08/07, again 08/09, 08/11 intubated, sedated hb 6.8 better to 8 with 2u PRBC 08/06, low to 6.6 on 08/11, 1u PRBC failed pressure support with agitation, and tachypnea bronch 08/08, lots of secretion, bloody, lovenox held cont bcx +, staph Vitals Vitals Vital Signs Date Time Temp Pulse Resp B/P Pulse Ox O2 Delivery O2 Flow Rate FiO2 08/11/16 09:45 100.2 107 33 113/56 100.2 08/11/16 08:00 Mechanical Ventilator 08/11/16 07:39 100 08/10/16 16:00 4.0 Physical Exam Physical Exam INTUBATED ,sedated General: Other (intubated and sedated) Heart: Regular rate, Normal S1, Normal S2 Lungs: Other (less rhonchi) Abdomen: Soft, No tenderness Extremities: No edema Skin: No significant lesion Labs LABS Laboratory Tests Test 08/11/16 04:40 08/11/16 07:50 White Blood Count 17.4x10^3/uL (4.0-11.0) Red Blood Count 2.30x10^6/uL (3.50-5.40) Hemoglobin 6.6g/dL (12.0-15.5) Hematocrit 20.5% (36.0-47.0) Mean Corpuscular Volume 89fL (79-100) Mean Corpuscular Hemoglobin 29pg (25-35) Mean Corpuscular Hemoglobin Concent 32g/dL (31-37) Red Cell Distribution Width 16.9% (11.5-14.5) Platelet Count 161x10^3/uL (140-400) Neutrophils (%) (Auto) 82% (31-73) Lymphocytes (%) (Auto) 10% (24-48) Monocytes (%) (Auto) 6% (0-9) Eosinophils (%) (Auto) 1% (0-3) Basophils (%) (Auto) 1% (0-3) Neutrophils # (Auto) 14.3x10^3uL (1.8-7.7) Lymphocytes # (Auto) 1.8x10^3/uL (1.0-4.8) Monocytes # (Auto) 1.1x10^3/uL (0.0-1.1) Eosinophils # (Auto) 0.2x10^3/uL (0.0-0.7) Basophils # (Auto) 0.1x10^3/uL (0.0-0.2) Erythrocyte Sedimentation Rate > 140 (0-25) Sodium Level 143mmol/L (136-145) Potassium Level 3.7mmol/L (3.5-5.1) Chloride Level 110mmol/L (98-107) Carbon Dioxide Level 22mmol/L (21-32) Anion Gap 11 (6-14) Blood Urea Nitrogen 23mg/dL (7-20) Creatinine 0.9mg/dL (0.6-1.0) Estimated GFR (Cockcroft-Gault) 68.7 Glucose Level 118mg/dL (70-99) Calcium Level 7.4mg/dL (8.5-10.1) C-Reactive Protein, Quantitative 301.0mg/L (0-3.3) O2 Saturation 98% (92-99) Arterial Blood pH 7.46 (7.35-7.45) Arterial Blood pCO2 at Patient Temp 35mmHg (35-46) Arterial Blood pO2 at Patient Temp 98mmHg (75-108) Arterial Blood HCO3 24mmol/L (21-28) Arterial Blood Base Excess 0mmol/L (-3-3) FiO2 35 Review of Systems Review of Systems no chills Comment Review of Relevant I have reviewed the following items shanta (where applicable) has been applied. Labs Laboratory Tests Test 08/10/16 04:30 08/10/16 06:40 08/10/16 08:00 08/11/16 04:40 White Blood Count 18.7x10^3/uL (4.0-11.0) 17.4x10^3/uL (4.0-11.0) Red Blood Count 2.54x10^6/uL (3.50-5.40) 2.30x10^6/uL (3.50-5.40) Hemoglobin 7.4g/dL (12.0-15.5) 6.6g/dL (12.0-15.5) Hematocrit 22.9% (36.0-47.0) 20.5% (36.0-47.0) Mean Corpuscular Volume 90fL (79-100) 89fL (79-100) Mean Corpuscular Hemoglobin 29pg (25-35) 29pg (25-35) Mean Corpuscular Hemoglobin Concent 32g/dL (31-37) 32g/dL (31-37) Red Cell Distribution Width 17.6% (11.5-14.5) 16.9% (11.5-14.5) Platelet Count 143x10^3/uL (140-400) 161x10^3/uL (140-400) Neutrophils (%) (Auto) 84% (31-73) 82% (31-73) Lymphocytes (%) (Auto) 9% (24-48) 10% (24-48) Monocytes (%) (Auto) 5% (0-9) 6% (0-9) Eosinophils (%) (Auto) 1% (0-3) 1% (0-3) Basophils (%) (Auto) 1% (0-3) 1% (0-3) Neutrophils # (Auto) 15.7x10^3uL (1.8-7.7) 14.3x10^3uL (1.8-7.7) Lymphocytes # (Auto) 1.7x10^3/uL (1.0-4.8) 1.8x10^3/uL (1.0-4.8) Monocytes # (Auto) 0.9x10^3/uL (0.0-1.1) 1.1x10^3/uL (0.0-1.1) Eosinophils # (Auto) 0.2x10^3/uL (0.0-0.7) 0.2x10^3/uL (0.0-0.7) Basophils # (Auto) 0.1x10^3/uL (0.0-0.2) 0.1x10^3/uL (0.0-0.2) Sodium Level 146mmol/L (136-145) 143mmol/L (136-145) Potassium Level 2.9mmol/L (3.5-5.1) 3.7mmol/L (3.5-5.1) Chloride Level 113mmol/L (98-107) 110mmol/L (98-107) Carbon Dioxide Level 24mmol/L (21-32) 22mmol/L (21-32) Anion Gap 9 (6-14) 11 (6-14) Blood Urea Nitrogen 30mg/dL (7-20) 23mg/dL (7-20) Creatinine 1.0mg/dL (0.6-1.0) 0.9mg/dL (0.6-1.0) Estimated GFR (Cockcroft-Gault) 60.8 68.7 Glucose Level 129mg/dL (70-99) 118mg/dL (70-99) Calcium Level 7.4mg/dL (8.5-10.1) 7.4mg/dL (8.5-10.1) O2 Saturation 98% (92-99) Arterial Blood pH 7.42 (7.35-7.45) Arterial Blood pCO2 at Patient Temp 34mmHg (35-46) Arterial Blood pO2 at Patient Temp 113mmHg (75-108) Arterial Blood HCO3 21mmol/L (21-28) Arterial Blood Base Excess -3mmol/L (-3-3) FiO2 35 Erythrocyte Sedimentation Rate > 140 (0-25) C-Reactive Protein, Quantitative 301.0mg/L (0-3.3) Test 08/11/16 07:50 O2 Saturation 98% (92-99) Arterial Blood pH 7.46 (7.35-7.45) Arterial Blood pCO2 at Patient Temp 35mmHg (35-46) Arterial Blood pO2 at Patient Temp 98mmHg (75-108) Arterial Blood HCO3 24mmol/L (21-28) Arterial Blood Base Excess 0mmol/L (-3-3) FiO2 35 Laboratory Tests Test 08/11/16 04:40 08/11/16 07:50 White Blood Count 17.4x10^3/uL (4.0-11.0) Red Blood Count 2.30x10^6/uL (3.50-5.40) Hemoglobin 6.6g/dL (12.0-15.5) Hematocrit 20.5% (36.0-47.0) Mean Corpuscular Volume 89fL (79-100) Mean Corpuscular Hemoglobin 29pg (25-35) Mean Corpuscular Hemoglobin Concent 32g/dL (31-37) Red Cell Distribution Width 16.9% (11.5-14.5) Platelet Count 161x10^3/uL (140-400) Neutrophils (%) (Auto) 82% (31-73) Lymphocytes (%) (Auto) 10% (24-48) Monocytes (%) (Auto) 6% (0-9) Eosinophils (%) (Auto) 1% (0-3) Basophils (%) (Auto) 1% (0-3) Neutrophils # (Auto) 14.3x10^3uL (1.8-7.7) Lymphocytes # (Auto) 1.8x10^3/uL (1.0-4.8) Monocytes # (Auto) 1.1x10^3/uL (0.0-1.1) Eosinophils # (Auto) 0.2x10^3/uL (0.0-0.7) Basophils # (Auto) 0.1x10^3/uL (0.0-0.2) Erythrocyte Sedimentation Rate > 140 (0-25) Sodium Level 143mmol/L (136-145) Potassium Level 3.7mmol/L (3.5-5.1) Chloride Level 110mmol/L (98-107) Carbon Dioxide Level 22mmol/L (21-32) Anion Gap 11 (6-14) Blood Urea Nitrogen 23mg/dL (7-20) Creatinine 0.9mg/dL (0.6-1.0) Estimated GFR (Cockcroft-Gault) 68.7 Glucose Level 118mg/dL (70-99) Calcium Level 7.4mg/dL (8.5-10.1) C-Reactive Protein, Quantitative 301.0mg/L (0-3.3) O2 Saturation 98% (92-99) Arterial Blood pH 7.46 (7.35-7.45) Arterial Blood pCO2 at Patient Temp 35mmHg (35-46) Arterial Blood pO2 at Patient Temp 98mmHg (75-108) Arterial Blood HCO3 24mmol/L (21-28) Arterial Blood Base Excess 0mmol/L (-3-3) FiO2 35 Microbiology 08/09/16 Blood Culture - Preliminary, Resulted NO GROWTH AFTER 2 DAYS 08/08/16 AFB Specimen Processing Tissue - Final, Resulted 08/08/16 Acid Fast Bacilli Culture, Resulted Pending 08/08/16 Gram Stain - Final, Resulted 08/08/16 Fungal Culture, Resulted Pending 08/08/16 Fungal Culture Result 1, Resulted Pending Medications Current Medications Amino Acids/ Glycerin/ Electrolytes (Procalamine) 1,000 ml @ 100 mls/hr Q10H IV Last administered on 08/05/16 02:40; Start 08/02/16 at 03:00; Stop at 08:50; Status DC Morphine Sulfate 2 mg 2 mg PRN Q2HR PRN IV SEVERE PAIN Last administered on 11:59; Start 08/02/16 at 02:30; Stop 08/02/16 at 13:28; Status DC Daptomycin 220 mg/ Sodium Chloride 50 ml @ 100 mls/hr Q24H IV ; Start 08/02/16 at 09:15; Stop 08/02/16 at 15:58; Status DC Cefepime HCl 1 gm/ Sodium Chloride 50 ml @ 100 mls/hr Q12HR IV Last administered on 08/04/16 08:10; Start 08/02/16 at 10:00; Stop 08/04/16 at 10:33 ; Status DC Daptomycin/Sodium Chloride (Cubicin/Iv Sodium Chloride 0.9% 50ml) 50 ml @ 100 mls/hr ONCE ONCE IV ; Start 08/02/16 at 10:00; Stop 08/02/16 at 10:29; Status Cancel Potassium Chloride 40 meq 40 meq 1X ONCE PO Last administered on 08/02/16 10: 17; Start 08/02/16 at 09:45; Stop 08/02/16 at 09:46; Status DC Daptomycin/Sodium Chloride (Cubicin/Iv Sodium Chloride 0.9% 50ml) 50 ml @ 100 mls/hr Q24H IV Last administered on 08/03/16 09:43; Start 08/02/16 at 10:15; Stop 08/03/16 at 10:29; Status DC Potassium Chloride (Klor-Con) 40 meq 1X ONCE PO Last administered on 12:57; Start 08/02/16 at 12:30; Stop 08/02/16 at 12:36; Status DC Morphine Sulfate 5 mg PRN Q2HRS PRN IV MODERATE TO SEVERE PAIN Last administered on 08/04/16 08:16; Start 08/02/16 at 13:30 Morphine Sulfate 8 mg PRN Q2HRS PRN IV MODERATE TO SEVERE PAIN Last administered on 08/04/16 14:58; Start 08/02/16 at 13:30 Acetaminophen 650 mg 650 mg PRN Q6HRS PRN PO TEMP GREATER THAN 100.4 Last administered on 08/10/16 00:18; Start 08/02/16 at 14:45 Lactated Ringer's 1,000 ml @ 50 mls/hr Q20H IV ; Start 08/05/16 at 07:00; Stop 08/05/16 at 18:13; Status DC Daptomycin/Sodium Chloride (Cubicin/Iv Sodium Chloride 0.9% 50ml) 50 ml @ 100 mls/hr Q24H IV ; Start 08/03/16 at 11:00; Status Cancel Potassium Chloride (Klor-Con) 40 meq 1X ONCE PO Last administered on 17:41; Start 08/02/16 at 17:15; Stop 08/02/16 at 17:18; Status DC Potassium Chloride (Klor-Con) 40 meq BIDWMEALS PO ; Start 08/03/16 at 08:00; Stop 08/03/16 at 11:08; Status DC Morphine Sulfate 5 mg 1X ONCE IV Last administered on 08/02/16 21:45; Start 08/02/16 at 21:30; Stop 08/02/16 at 21:33; Status DC Lorazepam (Ativan) 1 mg 1X ONCE IV Last administered on 08/02/16 21:30; Start 08/02/16 at 21:30; Stop 08/02/16 at 21:33; Status DC Acetaminophen (Acetaminophen Supp) 650 mg PRN Q6HRS PRN TX MILD PAIN / TEMP Last administered on 08/11/16 00:13; Start 08/03/16 at 01:15 Albuterol/ Ipratropium (Duoneb) 3 ml RTQID NEB Last administered on 08/11/16 07:39; Start 08/03/16 at 08:00 Budesonide (Pulmicort) 0.5 mg RTBID NEB Last administered on 08/11/16 07:39; Start 08/03/16 at 08:00 Pantoprazole Sodium 40 mg 40 mg 1X ONCE IVP Last administered on 08/03/16 10: 06; Start 08/03/16 at 08:00; Stop 08/03/16 at 08:01; Status DC Daptomycin/Sodium Chloride (Cubicin/Iv Sodium Chloride 0.9% 50ml) 50 ml @ 100 mls/hr Q24H IV Last administered on 08/04/16 10:03; Start 08/04/16 at 10:00; Stop 08/04/16 at 10:33; Status DC Lorazepam (Ativan) 0.5 mg PRN Q6HRS PRN IV ANXIETY / AGITATION Last administered on 08/04/16 09:12; Start 08/03/16 at 11:15; Stop 08/07/16 at 11:02 ; Status DC Lorazepam (Ativan) 0.5 mg 1X ONCE IV Last administered on 08/04/16 10:00; Start 08/04/16 at 10:00; Stop 08/04/16 at 10:01; Status DC Morphine Sulfate 5 mg 1X ONCE IV Last administered on 08/04/16 10:00; Start 08/04/16 at 10:00; Stop 08/04/16 at 10:01; Status DC Lorazepam 0.5 mg 0.5 mg PRN Q4HRS PRN IV ANXIETY / AGITATION Last administered on 08/10/16 22:28; Start 08/04/16 at 10:00 Nafcillin Sodium 2 gm/Sodium Chloride 100 ml @ 200 mls/hr Q4HRS IV Last administered on 08/09/16 10:10; Start 08/04/16 at 12:00; Stop 08/09/16 at 11:49 ; Status DC Propofol (Diprivan) 100 ml @ As Directed STK-MED ONCE IV ; Start 08/04/16 at 16 :10; Stop 08/04/16 at 16:11; Status DC Succinylcholine Chloride (Anectine) 200 mg STK-MED ONCE .ROUTE ; Start 08/04/16 at 16:14; Stop 08/04/16 at 16:15; Status DC Succinylcholine Chloride 200 mg 200 mg 1X ONCE IV ; Start 08/04/16 at 16:45; Stop 08/04/16 at 16:46; Status DC Propofol (Diprivan) 100 ml @ 0 mls/hr CONT PRN IV SEE I/O RECORD Last administered on 08/11/16 04:25; Start 08/04/16 at 16:45 Lorazepam (Ativan) 0.5 mg 1X ONCE IV Last administered on 08/04/16 16:45; Start 08/04/16 at 16:45; Stop 08/04/16 at 16:46; Status DC Morphine Sulfate 5 mg 5 mg 1X ONCE IV Last administered on 08/04/16 16:44; Start 08/04/16 at 16:45; Stop 08/04/16 at 16:46; Status DC Fentanyl Citrate (Fentanyl 600 Mcg/30 ml BOAT RIGGER) 30 ml @ 0 mls/hr CONT PRN IV PROTOCOL Last administered on 08/11/16 03:06; Start 08/04/16 at 16:45 Chlorhexidine Gluconate (Peridex) 15 ml BID MM Last administered on 08/11/16 10:08; Start 08/04/16 at 21:00 Famotidine 20 mg 20 mg BID IVP Last administered on 08/11/16 10:08; Start at 17:00 Sodium Chloride (Iv Sodium Chloride 0.9% 1000ml Bag) 1,000 ml @ 100 mls/hr Q10H IV Last administered on 08/07/16 04:35; Start 08/05/16 at 09:00; Stop at 08:59; Status DC Succinylcholine Chloride (Anectine) 200 mg STK-MED ONCE .ROUTE ; Start 08/04/16 at 16:00; Stop 08/05/16 at 12:32; Status DC Lorazepam (Ativan) 2 mg 1X ONCE IV Last administered on 08/05/16 20:43; Start 08/05/16 at 21:00; Stop 08/05/16 at 21:01; Status DC Furosemide (Lasix) 40 mg 1X PRN PRN IV blood transfusion Last administered on 14:17; Start 08/06/16 at 08:00; Stop 08/07/16 at 07:59; Status DC Sodium Bicarbonate 50 meq 1X ONCE IV Last administered on 08/06/16 14:06; Start 08/06/16 at 12:00; Stop 08/06/16 at 12:01; Status DC Calcium Chloride 1,000 mg STK-MED ONCE IV ; Start 08/04/16 at 12:00; Stop at 15:13; Status DC Epinephrine HCl (Epinephrine Syringe) 2 mg STK-MED ONCE .ROUTE ; Start 08/04/16 at 12:00; Stop 08/06/16 at 15:13; Status DC Sodium Bicarbonate 100 meq 100 meq STK-MED ONCE .ROUTE ; Start 08/04/16 at 12:00 ; Stop 08/06/16 at 15:13; Status DC Amino Acids/ Glycerin/ Electrolytes (Procalamine) 1,000 ml @ 100 mls/hr Q10H IV Last administered on 08/08/16 12:33; Start 08/07/16 at 10:00; Stop at 09:42; Status DC Enoxaparin Sodium (Lovenox 40mg Syringe) 40 mg Q24H SQ Last administered on 13:10; Start 08/07/16 at 13:00; Stop 08/10/16 at 10:43; Status DC Vecuronium Devers (Norcuron Bolus) 10 mg STK-MED ONCE IV ; Start 08/07/16 at 13 :56; Stop 08/07/16 at 13:57; Status DC Vecuronium Devers (Norcuron Bolus) 6 mg 1X ONCE IV Last administered on 14:06; Start 08/07/16 at 14:00; Stop 08/07/16 at 14:05; Status DC Sodium Bicarbonate 50 meq 1X ONCE IV Last administered on 08/08/16 11:46; Start 08/08/16 at 11:45; Stop 08/08/16 at 11:46; Status DC Nystatin 1 james 1 james BID TP Last administered on 08/11/16 10:08; Start at 21:00 Linezolid 300 ml @ 300 mls/hr Q12HR IV Last administered on 08/11/16 10:08; Start 08/09/16 at 09:00 Sodium Chloride 1,000 ml @ 50 mls/hr Q20H IV Last administered on 08/10/16 00 :21; Start 08/09/16 at 09:45 Sodium Bicarbonate/ Dextrose 1,150 ml @ 100 mls/hr 1X ONCE IV Last administered on 08/09/16 12:25; Start 08/09/16 at 11:30; Stop 08/09/16 at 22:59 ; Status DC Piperacillin Sod/ Tazobactam Sod 1 each 1 each PRN DAILY PRN MC SEE COMMENTS; Start 08/09/16 at 12:00 Piperacillin Sod/ Tazobactam Sod/ Sodium Chloride (Zosyn/Iv Sodium Chloride 0.9 % 100ml) 100 ml @ 200 mls/hr Q6HRS IV Last administered on 08/11/16 05:41; Start 08/09/16 at 12:30 Vecuronium De[place] 5 mg 5 mg PRN Q4HRS PRN IV INCREASED RESPIRATORY,NOT RELI Last administered on 08/11/16 02:56; Start 08/09/16 at 13:30 Potassium Chloride 50 ml @ 100 mls/hr Q1H IV ; Start 08/10/16 at 09:30; Stop at 10:59; Status Cancel Potassium Chloride (KCl Premix 10meq) 100 ml @ 100 mls/hr Q1H IV Last administered on 08/10/16 16:28; Start 08/10/16 at 10:30; Stop 08/10/16 at 14:29 ; Status DC Potassium Chloride 60 meq 60 meq 1X ONCE PEG Last administered on 08/10/16 11 :16; Start 08/10/16 at 11:00; Stop 08/10/16 at 11:01; Status DC Sodium Bicarbonate/ Dextrose 1,150 ml @ 100 mls/hr [id number] IV Last administered on 08/10/16 11:14; Start 08/10/16 at 11:00; Stop 08/10/16 at 22:29 ; Status DC Enoxaparin Sodium (Lovenox 40mg Syringe) 40 mg Q24H SQ ; Start 08/10/16 at 13:00 ; Stop 08/10/16 at 13:00; Status DC Active Scripts Active Reported No Known Medications Prior To Admisstion (Info) Each 1 Each Vitals/I & O Vital Sign - Last 24 Hours 08/10/16 08/10/16 08/10/16 08/10/16 12:00 12:00 12:37 13:00 Temp 102.5 102.5 Pulse 116 117 Resp 30 B/P 117/66 107/69 Pulse Ox 97 100 100 O2 Delivery Mechanical Ventilator Ventilator Ventilator Ventilator O2 Flow Rate 4.0 08/10/16 08/10/16 08/10/16 08/10/16 14:00 15:00 15:58 16:00 Temp 102.9 102.9 Pulse 120 122 116 Resp B/P 122/70 118/64 106/52 Pulse Ox 99 99 99 99 O2 Delivery Ventilator Ventilator Ventilator Ventilator 08/10/16 08/10/16 08/10/16 08/10/16 16:00 17:00 18:00 19:00 Pulse 110 112 114 Resp B/P 111/63 116/67 115/63 Pulse Ox 100 100 100 O2 Delivery Mechanical Ventilator Ventilator Ventilator Ventilator O2 Flow Rate 4.0 08/10/16 08/10/16 08/10/16 08/10/16 19:30 19:44 20:00 20:08 Temp 100.5 100.5 Pulse 107 Resp B/P 116/62 Pulse Ox 100 100 100 O2 Delivery Mechanical Ventilator Ventilator Ventilator Ventilator 08/10/16 08/10/16 08/10/16 08/10/16 20:15 21:00 22:00 22:15 Pulse 108 120 Resp 25 B/P 99/52 138/79 Pulse Ox 100 98 98 99 O2 Delivery Ventilator Ventilator Ventilator Ventilator 08/10/16 08/10/16 08/11/16 08/11/16 23:00 23:59 00:00 00:10 Temp 101.1 101.1 Pulse 110 109 Resp 27 B/P 113/62 99/50 Pulse Ox 100 100 100 O2 Delivery Ventilator Mechanical Ventilator Ventilator Ventilator 08/11/16 08/11/16 08/11/16 08/11/16 01:00 02:00 02:47 03:00 Pulse 117 112 112 Resp 28 B/P 105/70 101/55 106/57 Pulse Ox 99 100 100 100 O2 Delivery Ventilator Ventilator Ventilator Ventilator 08/11/16 08/11/16 08/11/16 08/11/16 03:06 04:00 04:00 05:00 Temp 101.5 101.5 Pulse 117 114 Resp B/P 117/64 112/61 Pulse Ox 100 99 100 O2 Delivery Ventilator Mechanical Ventilator Ventilator Ventilator 08/11/16 08/11/16 08/11/16 08/11/16 05:25 06:00 07:39 08:00 Temp 99.2 99.2 Pulse 104 Resp 24 B/P 89/48 Pulse Ox 100 100 100 O2 Delivery Ventilator Ventilator Ventilator Mechanical Ventilator 08/11/16 08/11/16 08/11/16 08/11/16 08:57 09:20 09:32 09:45 Temp 100.7 99.8 100.1 100.2 100.7 99.8 100.1 100.2 Pulse 105 102 102 107 Resp 28 30 32 33 B/P 94/51 101/50 103/57 113/56 Intake and Output 08/10/16 08/10/16 08/11/16 15:00 23:00 07:00 Intake Total 30 ml 3837 ml 1888 ml Output Total 1075 ml 380 ml Balance 30 ml 2762 ml 1508 ml Nutrition Consultation Dietary Evaluation: Recommendations by RD: PPN/TPN Comments: Pt currently NPO TF with Fibersource HN running at 35ml/hr, flushes 140ml q4h RN plans to increase to goal rate of 45ml/hr this morning Expected Outcomes/Goals: initiation of TF's: met to meet >75% est nutr needs: new goal Interpretation of weight loss: >7.5% in 3 months Malnutrition Findings: Food and Nutrition Intake (Mod: <75% est energy req 7days Body Fat Depletion (Non Severe: Mild Depletion Reduced Measurer Strength: N/A Reduced Measurer Strength (Non-Sev: N/A Malnutrition related to morbid: No Weight Status: Appropriate Fluid Accumulation (N/A): N/A MAYKEL BAUTISTA MD Aug 11, 2016 12:00
[2016-08-11] MEDS: MICAFUNGIN 100 MG in IV DEXTROSE 5% 100 ML IV SCH (16:42)
[2016-08-11] MEDS: IV 1/2 NORMAL SALINE 1,000 ML IV SCH ×2 (16:43→21:45)
[2016-08-11 18:35] LABS: BILIRUBIN,URINE NEGATIVE (NEG); GLUCOSE,URINE NEGATIVE (NEG); NITRITE,URINE NEGATIVE (NEG); PH,URINE 5.5; PROTEIN,URINE 100 mg/dL (NEG-TRACE); UROBILINOGEN,URINE 0.2 mg/dL (0.2 mg/dL)
[2016-08-11 18:44] LABS: BACTERIA,URINE 0 /HPF (0-FEW); RBC,URINE RARE /HPF (0-2); SQUAMOUS EPITHELIAL CELL,UR OCC /LPF; WBC,URINE OCC /HPF (0-4)
[2016-08-12] VITALS (24 sets, daily range): BP systolic 90–119; BP diastolic 48–66
[2016-08-12] MEDS: PROPOFOL 100 ML IV PRN ×7 (02:34→23:31)
[2016-08-12 05:32] LABS: CALCIUM 7.5 mg/dL (8.5-10.1); CREATININE 0.9 mg/dL (0.6-1.0); GFR 68.7; POTASSIUM 3.2 mmol/L (3.5-5.1)
[2016-08-12] MEDS: PIPERACILLIN/TAZOBACTAM 4.5 GM in IV NORMAL SALINE 100ML 100 ML IV SCH ×4 (05:40→23:33)
[2016-08-12 06:06] LABS: BASO # 0.1 x10^3/uL (0.0-0.2); BASO % 1 % (0-3); EOS % 1 % (0-3); HEMATOCRIT 21.6 % (36.0-47.0); HEMOGLOBIN 7.3 g/dL (12.0-15.5); LYMPH # 1.7 x10^3/uL (1.0-4.8); LYMPH % 11 % (24-48); MEAN CORPUSCULAR HEMOGLOBIN 29 pg (25-35); MEAN CORPUSCULAR HGB CONC 34 g/dL (31-37); MEAN CORPUSCULAR VOLUME 87 fL (79-100); MONO % 6 % (0-9); NEUT % 82 % (31-73); PLATELET COUNT 182 x10^3/uL (140-400); RED BLOOD COUNT 2.47 x10^6/uL (3.50-5.40); RED CELL DISTRIBUTION WIDTH 16.1 % (11.5-14.5); WHITE BLOOD COUNT 15.7 x10^3/uL (4.0-11.0)
--- NOTE | 2016-08-12 07:50 | PDOC ---
Infectious Disease Note Subjective Subjective Remains intubated. FiO2 35% Sedated. Tube feedings Loose stools ROS ROS GEN: Denies fevers, chills, sweats HEENT: Denies blurred vision, sore throat CV: Denies chest pain RESP: Denies shortness of air, cough GI: Denies n/v/d NEURO: Denies confusion, dizziness MSK: Denies weakness, joint pain/swelling Vital Sign Vital Signs Vital Signs Date Time Temp Pulse Resp B/P Pulse Ox O2 Delivery O2 Flow Rate FiO2 08/12/16 07:00 92 23 90/51 100 Ventilator 08/12/16 04:00 97.6 97.6 Physical Exam PHYSICAL EXAM GENERAL: Intubated and sedated, mittens HEENT: PERRL, ETT. NGT LUNGS: Clear HEART: S1S2, no gallop, no murmur ABD: Mildly distended, BS present, soft, BS present : [place] EXT: No cyanosis. BLE trace edema [employer]: Unresponsive/sedated SKIN: No rash. tattoos IV: ok Labs Lab Laboratory Tests Test 08/11/16 07:50 08/11/16 16:05 08/11/16 18:00 08/12/16 04:15 O2 Saturation 98% (92-99) Arterial Blood pH 7.46 (7.35-7.45) Arterial Blood pCO2 at Patient Temp 35mmHg (35-46) Arterial Blood pO2 at Patient Temp 98mmHg (75-108) Arterial Blood HCO3 24mmol/L (21-28) Arterial Blood Base Excess 0mmol/L (-3-3) FiO2 35 Lactic Acid Level 1.2mmol/L (0.4-2.0) Urine Collection Type Unknown Urine Color Yellow Urine Clarity Clear Urine pH 5.5 Urine Specific [place] 1.025 Urine Protein 100mg/dL (NEG-TRACE) Urine Glucose (UA) Negativemg/dL (NEG) Urine Ketones (Stick) Negativemg/dL (NEG) Urine Blood Negative (NEG) Urine Nitrite Negative (NEG) Urine Bilirubin Negative (NEG) Urine Urobilinogen Dipstick 0.2mg/dL (0.2 mg/dL) Urine Leukocyte Esterase Negative (NEG) Urine RBC Rare/HPF (0-2) Urine WBC Occ/HPF (0-4) Urine Squamous Epithelial Cells Occ/LPF Urine Bacteria 0/HPF (0-FEW) White Blood Count 15.7x10^3/uL (4.0-11.0) Red Blood Count 2.47x10^6/uL (3.50-5.40) Hemoglobin 7.3g/dL (12.0-15.5) Hematocrit 21.6% (36.0-47.0) Mean Corpuscular Volume 87fL (79-100) Mean Corpuscular Hemoglobin 29pg (25-35) Mean Corpuscular Hemoglobin Concent 34g/dL (31-37) Red Cell Distribution Width 16.1% (11.5-14.5) Platelet Count 182x10^3/uL (140-400) Neutrophils (%) (Auto) 82% (31-73) Lymphocytes (%) (Auto) 11% (24-48) Monocytes (%) (Auto) 6% (0-9) Eosinophils (%) (Auto) 1% (0-3) Basophils (%) (Auto) 1% (0-3) Neutrophils # (Auto) 12.8x10^3uL (1.8-7.7) Lymphocytes # (Auto) 1.7x10^3/uL (1.0-4.8) Monocytes # (Auto) 0.9x10^3/uL (0.0-1.1) Eosinophils # (Auto) 0.2x10^3/uL (0.0-0.7) Basophils # (Auto) 0.1x10^3/uL (0.0-0.2) Sodium Level 138mmol/L (136-145) Potassium Level 3.2mmol/L (3.5-5.1) Chloride Level 106mmol/L (98-107) Carbon Dioxide Level 24mmol/L (21-32) Anion Gap 8 (6-14) Blood Urea Nitrogen 19mg/dL (7-20) Creatinine 0.9mg/dL (0.6-1.0) Estimated GFR (Cockcroft-Gault) 68.7 Glucose Level 111mg/dL (70-99) Calcium Level 7.5mg/dL (8.5-10.1) Objective Assessment Fever - persistent fever despite abx. ? Endocarditis/septic emboli/Occult source - antifungal added 08/11. UA -neg Acute anemia 2 units PRBCs 08/06. 08/11 s/p PRBC 1 unit. ? etiology Acute Resp failure - Intubated ? developing ARDS. S/p Bronch 08/08. thick plugs. MSSA. CT 08/09 reviewed MSSA 08/01 sepsis - repeat 08/05+ MSSA. cult 08/07 +. 08/09 neg so far ESR >140 & CRP 301.0 ? reactive Hep C IV drug use. Right-sided bacterial endocarditis. Repeat ECHO smaller veg on TV 08/09 -TTE. 3.0 x 2.0cm mobile mass TV -BC NGTD, 08/01 ([facility]). Multiple pulmonary nodules Ileus Renal insufficiency. Severe thrombocytopenia. Leukocytosis. Hepatosplenomegaly on CT Plan Plan of Care Continue Zyvox and Zosyn/Melissa added 08/11 PICC line GI eval After GI eval CT abd/pel with contrast to r/o occult source F/u labs & cultures May need steroids Supportive care Cefepime/Dapto 08/02-08/04 Nafcillin 08/04- 08/09 Zosyn/Zyvox 08/09- to date Critically ill KAYLYNN SHAY MD Aug 12, 2016 07:50
[2016-08-12] MEDS ORDERED: FUROSEMIDE 40 MG/4 ML VIAL. IVP ONE (08:00)
--- NOTE | 2016-08-12 08:02 | RAD ---
Portable chest, 08/12/2016: History: Respiratory failure Comparison is made to a study from 08/09/2016. The ET tube tip lies well above the sundar. An NG tube extends into the stomach. The heart is at the upper limits of normal in size. There are worsening bilateral pulmonary infiltrates. Underlying cavitary nodules are less clearly defined due to the infiltrates. There is blunting of the costophrenic angles compatible with a component of pleural fluid. The pulmonary vascularity is poorly defined. IMPRESSION: 1. Stable tube positions. 2. Worsening bilateral pulmonary infiltrates and small bilateral pleural effusions. The findings suggest worsening pneumonia and/or superimposed pulmonary edema. Note: The findings were called to the patient's nurse in the ICU at 8:00 AM on 08/12/2016.
[2016-08-12] MEDS: BUDESONIDE 0.5 MG/2 ML NEBU. NEB SCH ×2 (08:40→20:39)
[2016-08-12] MEDS: IPRATRPIUM/ALBUTEROL 0.5/2.5MG 3 ML NEBU. NEB SCH ×3 (08:40→20:39)
[2016-08-12 09:06] LABS: HCO3 ABG 20 mmol/L (21-28); PCO2 ABG 31 mmHg (35-46); PH ABG 7.44 (7.35-7.45); PO2 ABG 118 mmHg (75-108); SAT O2 ABG 98 % (92-99)
[2016-08-12 09:08] LABS: FIO2 ABG 35
[2016-08-12] MEDS: NYSTATIN TOPICAL POWDER 15GM BOTTLE. TP SCH ×2 (09:24→21:29)
[2016-08-12] MEDS: FAMOTIDINE 20 MG/2 ML VIAL IVP SCH ×2 (09:24→21:29)
[2016-08-12] MEDS: CHLORHEXIDINE 0.12% 15 ML MOUTHWASH. MM SCH ×2 (09:24→21:29)
--- NOTE | 2016-08-12 10:28 | PDOC2 ---
GI CONSULT Reason For Consult: Anemia HPI: HPI: 41 y/o female currently intubated and sedated in ICU w/ NG; extensive list of medical issues w/ resp failure s/p bronch w/ MSSA, ?septic emboli, bacterial endocarditis, fever, thrombocytopenia, leukocytosis, elevated ESR and CRP. Additional h/o Hep C and IVDU. CT chest GI consulted re: anemia. Per RN, no obvious bleeding except w/ deep (pulm) suctioning. Having loose stools several times daily, C Diff neg 08/10. Admitting Hgb 9.9 on 08/02, gradually dropped to 6.8, improved w/ transfusion, gradually dropped into 6s again, now 7.3. Normal BUN/Cr. Admitting plt count 18, now 182. Last bili 2.2. Hepatomegaly on CT chest. On Pepcid IV BID. PMH: PMH: from chart/staff - polysubstance abuse, Hep C, right rotator cuff repair FH: Family History: No pertinent hx Social History: Smoke: 1 pack per day Drugs: Heroin ROS: Unable to obtain. VItals: Vitals: Vital Signs Date Time Temp Pulse Resp B/P Pulse Ox O2 Delivery O2 Flow Rate FiO2 08/12/16 09:00 93 21 100/53 100 Ventilator 08/12/16 08:00 100.4 100.4 Labs: Labs: Laboratory Tests Test 08/11/16 16:05 08/11/16 18:00 08/12/16 04:15 08/12/16 08:30 Lactic Acid Level 1.2mmol/L (0.4-2.0) Urine Collection Type Unknown Urine Color Yellow Urine Clarity Clear Urine pH 5.5 Urine Specific [place] 1.025 Urine Protein 100mg/dL (NEG-TRACE) Urine Glucose (UA) Negativemg/dL (NEG) Urine Ketones (Stick) Negativemg/dL (NEG) Urine Blood Negative (NEG) Urine Nitrite Negative (NEG) Urine Bilirubin Negative (NEG) Urine Urobilinogen Dipstick 0.2mg/dL (0.2 mg/dL) Urine Leukocyte Esterase Negative (NEG) Urine RBC Rare/HPF (0-2) Urine WBC Occ/HPF (0-4) Urine Squamous Epithelial Cells Occ/LPF Urine Bacteria 0/HPF (0-FEW) White Blood Count 15.7x10^3/uL (4.0-11.0) Red Blood Count 2.47x10^6/uL (3.50-5.40) Hemoglobin 7.3g/dL (12.0-15.5) Hematocrit 21.6% (36.0-47.0) Mean Corpuscular Volume 87fL (79-100) Mean Corpuscular Hemoglobin 29pg (25-35) Mean Corpuscular Hemoglobin Concent 34g/dL (31-37) Red Cell Distribution Width 16.1% (11.5-14.5) Platelet Count 182x10^3/uL (140-400) Neutrophils (%) (Auto) 82% (31-73) Lymphocytes (%) (Auto) 11% (24-48) Monocytes (%) (Auto) 6% (0-9) Eosinophils (%) (Auto) 1% (0-3) Basophils (%) (Auto) 1% (0-3) Neutrophils # (Auto) 12.8x10^3uL (1.8-7.7) Lymphocytes # (Auto) 1.7x10^3/uL (1.0-4.8) Monocytes # (Auto) 0.9x10^3/uL (0.0-1.1) Eosinophils # (Auto) 0.2x10^3/uL (0.0-0.7) Basophils # (Auto) 0.1x10^3/uL (0.0-0.2) Sodium Level 138mmol/L (136-145) Potassium Level 3.2mmol/L (3.5-5.1) Chloride Level 106mmol/L (98-107) Carbon Dioxide Level 24mmol/L (21-32) Anion Gap 8 (6-14) Blood Urea Nitrogen 19mg/dL (7-20) Creatinine 0.9mg/dL (0.6-1.0) Estimated GFR (Cockcroft-Gault) 68.7 Glucose Level 111mg/dL (70-99) Calcium Level 7.5mg/dL (8.5-10.1) O2 Saturation 98% (92-99) Arterial Blood pH 7.44 (7.35-7.45) Arterial Blood pCO2 at Patient Temp 31mmHg (35-46) Arterial Blood pO2 at Patient Temp 118mmHg (75-108) Arterial Blood HCO3 20mmol/L (21-28) Arterial Blood Base Excess -3mmol/L (-3-3) FiO2 35 Allergies: Coded Allergies: No Known Drug Allergies (Unverified , 08/02/16) Medications: Current Medications Medications (Trade) Dose Ordered Sig/Cher Route PRN Reason Start Time Stop Time Status Last Admin Dose Admin Micafungin Sodium/ Dextrose (Mycamine) 100 ml @ 100 mls/hr Q24H IV 08/11/16 16:00 08/11/16 16:42 Furosemide (Lasix) 40 mg 1X ONCE IVP 08/12/16 08:00 08/12/16 08:06 DC 08/12/16 08:38 Imaging: Imaging: CXR 08/12/16 IMPRESSION: 1. Stable tube positions. 2. Worsening bilateral pulmonary infiltrates and small bilateral pleural effusions. The findings suggest worsening pneumonia and/or superimposed pulmonary edema. Chest CT 08/09/16 Endotracheal tube is appropriately positioned above the sundar. Nasogastric tube is in the stomach. An acute or definite significant finding in the visualized upper abdomen is not seen. There is probable mild hepatomegaly. There are probable nodules in both lobes of the thyroid. There are multiple cavitary lesions in both lungs with associated moderately thick coppola. The findings are most compatible with septic pulmonary emboli. There is a small to moderate right pleural effusion and a small left. Additional volume loss at the lung bases may reflect atelectasis or pneumonia. An infiltrate is additionally noted in the left upper lobe compatible with pneumonia. There is a curvilinear" mass" in the right paratracheal area probably reflecting a prominent superior vena cava. Adenopathy is felt much less likely. Additional evaluation could be obtained with IV contrast. Significant adenopathy in the mediastinum or hilar areas is not suggested. IMPRESSION: Multiple cavitary lesions in both lungs most compatible with septic pulmonary emboli. Small to moderate right pleural effusion and small left. There is significant volume loss at the lung bases left greater than right which may reflect atelectasis or pneumonia. Additional infiltrates are seen in the left upper lobe and lingula which are probably secondary to inflammatory, pneumonic, foci. Probable prominent superior vena cava. Echocardiogram 08/09/16 <Conclusion> Left ventricular systolic function is normal. The Ejection Fraction is estimated at 50%. There is normal LV segmental wall motion. The tricuspid valve vegetation has significantly decreased in size. It is now 1 cm in circumference. Doppler and Color Flow revealed moderate tricuspid regurgitation. The PA pressure was estimated at 52 mmHg. Bronch 08/08/16 IMPRESSION: 1. Focal hemorrhage seen in the left upper lobe and lavage findings consistent with alveolar hemorrhage. 2. Inflamed mucosa in the left upper lobe and lingula and also in the right middle lobe. Bronchoalveolar lavage performed from these areas. 3. No endobronchial lesions seen. KUB 08/07/16 IMPRESSION: Large bowel distention, seen on the previous examination, has resolved. PE: GEN: intubated HEENT: atraumatic, NG LUNGS: course anteriorly, vent HEART: RRR ABD: BS+, RUQ firm EXTREMITY: no edema SKIN: warm NEURO/PSYCH: sedated A/P: A/P: Sepsis, resp failure, endocarditis -s/p bronch, echo -?septic emboli on CT chest as above -fever, ID following, IV atbx -intubated, sedated, w/ NG -trach discussed Anemia, thrombocytopenia -gradual drift in Hgb over admission, s/p transfusion 3 units, Hgb currently 7.3 -no obvious GI bleeding -plt improved -on IV H2 brandie H/o IVDU, Hep C, hepatomegaly on CT chest -- Will review w/ Dr. Peraza. ORQUIDEA ELIZABETH Aug 12, 2016 10:28
[2016-08-12 10:58] LABS: % EOS 1 % (0-5); PLT ESTIMATE ADEQUATE (ADEQUATE)
[2016-08-12 10:59] LABS: ANISOCYTOSIS SLIGHT
[2016-08-12 11:00] LABS: SCHISTOCYTES OCC; TOXIC GRANULATION SLIGHT
--- NOTE | 2016-08-12 12:24 | PDOC ---
PULMONARY PROGRESS NOTES Subjective remains intubated continues to fail CPAP trials due to agitation/ increase R/R s/p bronch Vitals Vital Signs Date Time Temp Pulse Resp B/P Pulse Ox O2 Delivery O2 Flow Rate FiO2 08/12/16 12:00 100.1 108 25 113/58 100 Ventilator 100.1 Comments ros as mentioned as above other sys otherwise neg HEENT: Other (nc at perrl, throat clear, nose inflamed mucosa.....neck, no lap , thyromegaly) Lungs: Other (less rhonchi) Cardiovascular: Other (tacgy) Abdomen: Soft, Non-tender, Other (hepatomegaly) Extremities: Other (edema) Skin: Warm Labs Laboratory Tests Test 08/10/16 19:45 08/11/16 04:40 08/11/16 07:50 08/11/16 16:05 Clostridium difficile Toxin (PCR) Negative (Negative) White Blood Count 17.4x10^3/uL (4.0-11.0) Red Blood Count 2.30x10^6/uL (3.50-5.40) Hemoglobin 6.6g/dL (12.0-15.5) Hematocrit 20.5% (36.0-47.0) Mean Corpuscular Volume 89fL (79-100) Mean Corpuscular Hemoglobin 29pg (25-35) Mean Corpuscular Hemoglobin Concent 32g/dL (31-37) Red Cell Distribution Width 16.9% (11.5-14.5) Platelet Count 161x10^3/uL (140-400) Neutrophils (%) (Auto) 82% (31-73) Lymphocytes (%) (Auto) 10% (24-48) Monocytes (%) (Auto) 6% (0-9) Eosinophils (%) (Auto) 1% (0-3) Basophils (%) (Auto) 1% (0-3) Neutrophils # (Auto) 14.3x10^3uL (1.8-7.7) Lymphocytes # (Auto) 1.8x10^3/uL (1.0-4.8) Monocytes # (Auto) 1.1x10^3/uL (0.0-1.1) Eosinophils # (Auto) 0.2x10^3/uL (0.0-0.7) Basophils # (Auto) 0.1x10^3/uL (0.0-0.2) Erythrocyte Sedimentation Rate > 140 (0-25) Sodium Level 143mmol/L (136-145) Potassium Level 3.7mmol/L (3.5-5.1) Chloride Level 110mmol/L (98-107) Carbon Dioxide Level 22mmol/L (21-32) Anion Gap 11 (6-14) Blood Urea Nitrogen 23mg/dL (7-20) Creatinine 0.9mg/dL (0.6-1.0) Estimated GFR (Cockcroft-Gault) 68.7 Glucose Level 118mg/dL (70-99) Calcium Level 7.4mg/dL (8.5-10.1) C-Reactive Protein, Quantitative 301.0mg/L (0-3.3) O2 Saturation 98% (92-99) Arterial Blood pH 7.46 (7.35-7.45) Arterial Blood pCO2 at Patient Temp 35mmHg (35-46) Arterial Blood pO2 at Patient Temp 98mmHg (75-108) Arterial Blood HCO3 24mmol/L (21-28) Arterial Blood Base Excess 0mmol/L (-3-3) FiO2 35 Lactic Acid Level 1.2mmol/L (0.4-2.0) Test 08/11/16 18:00 08/12/16 04:15 08/12/16 08:30 Urine Collection Type Unknown Urine Color Yellow Urine Clarity Clear Urine pH 5.5 Urine Specific [place] 1.025 Urine Protein 100mg/dL (NEG-TRACE) Urine Glucose (UA) Negativemg/dL (NEG) Urine Ketones (Stick) Negativemg/dL (NEG) Urine Blood Negative (NEG) Urine Nitrite Negative (NEG) Urine Bilirubin Negative (NEG) Urine Urobilinogen Dipstick 0.2mg/dL (0.2 mg/dL) Urine Leukocyte Esterase Negative (NEG) Urine RBC Rare/HPF (0-2) Urine WBC Occ/HPF (0-4) Urine Squamous Epithelial Cells Occ/LPF Urine Bacteria 0/HPF (0-FEW) White Blood Count 15.7x10^3/uL (4.0-11.0) Red Blood Count 2.47x10^6/uL (3.50-5.40) Hemoglobin 7.3g/dL (12.0-15.5) Hematocrit 21.6% (36.0-47.0) Mean Corpuscular Volume 87fL (79-100) Mean Corpuscular Hemoglobin 29pg (25-35) Mean Corpuscular Hemoglobin Concent 34g/dL (31-37) Red Cell Distribution Width 16.1% (11.5-14.5) Platelet Count 182x10^3/uL (140-400) Neutrophils (%) (Auto) 82% (31-73) Lymphocytes (%) (Auto) 11% (24-48) Monocytes (%) (Auto) 6% (0-9) Eosinophils (%) (Auto) 1% (0-3) Basophils (%) (Auto) 1% (0-3) Neutrophils # (Auto) 12.8x10^3uL (1.8-7.7) Lymphocytes # (Auto) 1.7x10^3/uL (1.0-4.8) Monocytes # (Auto) 0.9x10^3/uL (0.0-1.1) Eosinophils # (Auto) 0.2x10^3/uL (0.0-0.7) Basophils # (Auto) 0.1x10^3/uL (0.0-0.2) Segmented Neutrophils % 67% (35-66) Band Neutrophils % 16% (0-9) Lymphocytes % 11% (24-48) Atypical Lymphocytes % (Manual) 2% (0-0) Monocytes % 3% (0-10) Eosinophils % 1% (0-5) Toxic Granulation Slight Platelet Estimate Adequate (ADEQUATE) Anisocytosis Slight Schistocytes Occ Sodium Level 138mmol/L (136-145) Potassium Level 3.2mmol/L (3.5-5.1) Chloride Level 106mmol/L (98-107) Carbon Dioxide Level 24mmol/L (21-32) Anion Gap 8 (6-14) Blood Urea Nitrogen 19mg/dL (7-20) Creatinine 0.9mg/dL (0.6-1.0) Estimated GFR (Cockcroft-Gault) 68.7 Glucose Level 111mg/dL (70-99) Calcium Level 7.5mg/dL (8.5-10.1) O2 Saturation 98% (92-99) Arterial Blood pH 7.44 (7.35-7.45) Arterial Blood pCO2 at Patient Temp 31mmHg (35-46) Arterial Blood pO2 at Patient Temp 118mmHg (75-108) Arterial Blood HCO3 20mmol/L (21-28) Arterial Blood Base Excess -3mmol/L (-3-3) FiO2 35 Laboratory Tests Test 08/11/16 16:05 08/11/16 18:00 08/12/16 04:15 08/12/16 08:30 Lactic Acid Level 1.2mmol/L (0.4-2.0) Urine Collection Type Unknown Urine Color Yellow Urine Clarity Clear Urine pH 5.5 Urine Specific [place] 1.025 Urine Protein 100mg/dL (NEG-TRACE) Urine Glucose (UA) Negativemg/dL (NEG) Urine Ketones (Stick) Negativemg/dL (NEG) Urine Blood Negative (NEG) Urine Nitrite Negative (NEG) Urine Bilirubin Negative (NEG) Urine Urobilinogen Dipstick 0.2mg/dL (0.2 mg/dL) Urine Leukocyte Esterase Negative (NEG) Urine RBC Rare/HPF (0-2) Urine WBC Occ/HPF (0-4) Urine Squamous Epithelial Cells Occ/LPF Urine Bacteria 0/HPF (0-FEW) White Blood Count 15.7x10^3/uL (4.0-11.0) Red Blood Count 2.47x10^6/uL (3.50-5.40) Hemoglobin 7.3g/dL (12.0-15.5) Hematocrit 21.6% (36.0-47.0) Mean Corpuscular Volume 87fL (79-100) Mean Corpuscular Hemoglobin 29pg (25-35) Mean Corpuscular Hemoglobin Concent 34g/dL (31-37) Red Cell Distribution Width 16.1% (11.5-14.5) Platelet Count 182x10^3/uL (140-400) Neutrophils (%) (Auto) 82% (31-73) Lymphocytes (%) (Auto) 11% (24-48) Monocytes (%) (Auto) 6% (0-9) Eosinophils (%) (Auto) 1% (0-3) Basophils (%) (Auto) 1% (0-3) Neutrophils # (Auto) 12.8x10^3uL (1.8-7.7) Lymphocytes # (Auto) 1.7x10^3/uL (1.0-4.8) Monocytes # (Auto) 0.9x10^3/uL (0.0-1.1) Eosinophils # (Auto) 0.2x10^3/uL (0.0-0.7) Basophils # (Auto) 0.1x10^3/uL (0.0-0.2) Segmented Neutrophils % 67% (35-66) Band Neutrophils % 16% (0-9) Lymphocytes % 11% (24-48) Atypical Lymphocytes % (Manual) 2% (0-0) Monocytes % 3% (0-10) Eosinophils % 1% (0-5) Toxic Granulation Slight Platelet Estimate Adequate (ADEQUATE) Anisocytosis Slight Schistocytes Occ Sodium Level 138mmol/L (136-145) Potassium Level 3.2mmol/L (3.5-5.1) Chloride Level 106mmol/L (98-107) Carbon Dioxide Level 24mmol/L (21-32) Anion Gap 8 (6-14) Blood Urea Nitrogen 19mg/dL (7-20) Creatinine 0.9mg/dL (0.6-1.0) Estimated GFR (Cockcroft-Gault) 68.7 Glucose Level 111mg/dL (70-99) Calcium Level 7.5mg/dL (8.5-10.1) O2 Saturation 98% (92-99) Arterial Blood pH 7.44 (7.35-7.45) Arterial Blood pCO2 at Patient Temp 31mmHg (35-46) Arterial Blood pO2 at Patient Temp 118mmHg (75-108) Arterial Blood HCO3 20mmol/L (21-28) Arterial Blood Base Excess -3mmol/L (-3-3) FiO2 35 Medications Active Scripts Medications Dose Route/Sig Days Date Category No Known Medications Prior To Admisstion (Info) Each 1 Each 08/06/[address] chest diffuse cavitary lesions CXR 08/12 increasing infiltrates Impression . 1. Acute hypoxemic respiratory failure, multifactorial in etiology. 2. Continues to fail CPAP. will need Trach 3. Bilateral pulmonary nodules with cavitation, due to septic emboli. 4. Endocarditis. right sided, improving vegetations 5. ? chronic obstructive pulmonary disease. 6. Leukocytosis./fever 7. Anemia. 8. Thrombocytopenia. off lovenox 10. Intravenous drug abuse. 11. Tobacco habituation. 12. MSSA septicemia/pneumonia/ CHF today Plan . AC mode sedation CV surgery consult for trach/ agrees ct head/ chest reviewed Bronch with MSSA, antibiotics per ID Diuresis today transfuse prn holding lovenox d/w CARLEY MOORE MD Aug 12, 2016 12:24
--- NOTE | 2016-08-12 13:05 | PDOC ---
PROGRESS NOTES Chief Complaint Chief Complaint cc: Severe pain in chest with breathing and abdominal pain -Resp failure on Vent - polysubstance abuse -Hep C, right -rotator cuff repair -Tobacco use -20lb weight loss over the last couple of months History of Present Illness History of Present Illness Ms. Escamilla was lying in bed in her room in the ICU, and she was intubated during our visit. She was not able to respond to questioning. Her SpO2% was 100 , and she was breathing 25 times per minute. She had PPN hanging from the IV rack, as well as propofol and IV fluids. Her laboratory results and vital signs are consistent with SIRS criteria. Vitals Vitals Vital Signs Date Time Temp Pulse Resp B/P Pulse Ox O2 Delivery O2 Flow Rate FiO2 08/12/16 12:00 100.1 108 25 113/58 100 Ventilator 100.1 Physical Exam General: No acute distress, Other (intubated and sedated) Heart: Regular rate, Normal S1, Normal S2 Lungs: Clear, Other (No chest retractions) Abdomen: No tenderness, No masses Extremities: No clubbing, No edema Skin: No rashes, Other (Needle track guillory noted on extensor side of right upper extremitiy) Labs LABS Laboratory Tests Test 08/11/16 16:05 08/11/16 18:00 08/12/16 04:15 08/12/16 08:30 Lactic Acid Level 1.2mmol/L (0.4-2.0) Urine Collection Type Unknown Urine Color Yellow Urine Clarity Clear Urine pH 5.5 Urine Specific [place] 1.025 Urine Protein 100mg/dL (NEG-TRACE) Urine Glucose (UA) Negativemg/dL (NEG) Urine Ketones (Stick) Negativemg/dL (NEG) Urine Blood Negative (NEG) Urine Nitrite Negative (NEG) Urine Bilirubin Negative (NEG) Urine Urobilinogen Dipstick 0.2mg/dL (0.2 mg/dL) Urine Leukocyte Esterase Negative (NEG) Urine RBC Rare/HPF (0-2) Urine WBC Occ/HPF (0-4) Urine Squamous Epithelial Cells Occ/LPF Urine Bacteria 0/HPF (0-FEW) White Blood Count 15.7x10^3/uL (4.0-11.0) Red Blood Count 2.47x10^6/uL (3.50-5.40) Hemoglobin 7.3g/dL (12.0-15.5) Hematocrit 21.6% (36.0-47.0) Mean Corpuscular Volume 87fL (79-100) Mean Corpuscular Hemoglobin 29pg (25-35) Mean Corpuscular Hemoglobin Concent 34g/dL (31-37) Red Cell Distribution Width 16.1% (11.5-14.5) Platelet Count 182x10^3/uL (140-400) Neutrophils (%) (Auto) 82% (31-73) Lymphocytes (%) (Auto) 11% (24-48) Monocytes (%) (Auto) 6% (0-9) Eosinophils (%) (Auto) 1% (0-3) Basophils (%) (Auto) 1% (0-3) Neutrophils # (Auto) 12.8x10^3uL (1.8-7.7) Lymphocytes # (Auto) 1.7x10^3/uL (1.0-4.8) Monocytes # (Auto) 0.9x10^3/uL (0.0-1.1) Eosinophils # (Auto) 0.2x10^3/uL (0.0-0.7) Basophils # (Auto) 0.1x10^3/uL (0.0-0.2) Segmented Neutrophils % 67% (35-66) Band Neutrophils % 16% (0-9) Lymphocytes % 11% (24-48) Atypical Lymphocytes % (Manual) 2% (0-0) Monocytes % 3% (0-10) Eosinophils % 1% (0-5) Toxic Granulation Slight Platelet Estimate Adequate (ADEQUATE) Anisocytosis Slight Schistocytes Occ Sodium Level 138mmol/L (136-145) Potassium Level 3.2mmol/L (3.5-5.1) Chloride Level 106mmol/L (98-107) Carbon Dioxide Level 24mmol/L (21-32) Anion Gap 8 (6-14) Blood Urea Nitrogen 19mg/dL (7-20) Creatinine 0.9mg/dL (0.6-1.0) Estimated GFR (Cockcroft-Gault) 68.7 Glucose Level 111mg/dL (70-99) Calcium Level 7.5mg/dL (8.5-10.1) O2 Saturation 98% (92-99) Arterial Blood pH 7.44 (7.35-7.45) Arterial Blood pCO2 at Patient Temp 31mmHg (35-46) Arterial Blood pO2 at Patient Temp 118mmHg (75-108) Arterial Blood HCO3 20mmol/L (21-28) Arterial Blood Base Excess -3mmol/L (-3-3) FiO2 35 Review of Systems Review of Systems The patient was not questioned on review of symptoms due to her placement on the ventilator. Assessment and Plan Assessmemt and Plan Assessment: Ms. Escamilla is a 41 year old female who presented with severe pain in the chest associated with breathing and abdominal pain. -Resp failure on Vent - polysubstance abuse -Hep C, right -rotator cuff repair -Tobacco use -20lb weight loss over the last couple of months -Tobacco use -20lb weight loss over the last couple of months Plan: 1. Ordering PT/OT 2. Continue to recheck labs -Monitor hypokalemia 3. Positive SIRS criteria - Continue Zosyn and linezolid 4. Continue antifungal medications 5. Continue pain medications prn morphine and fentanyl 6. Continue breathing treatments 7. Monitor vitals for septic decompensation 8. Monitor for worsening of anemia 9. Appreciate consultation from surgery, cardiology, pulmonology, ID, and gastroenterology Total time 33 minutes Problems: Comment Review of Relevant I have reviewed the following items shanta (where applicable) has been applied. Labs Laboratory Tests Test 08/10/16 19:45 08/11/16 04:40 08/11/16 07:50 08/11/16 16:05 Clostridium difficile Toxin (PCR) Negative (Negative) White Blood Count 17.4x10^3/uL (4.0-11.0) Red Blood Count 2.30x10^6/uL (3.50-5.40) Hemoglobin 6.6g/dL (12.0-15.5) Hematocrit 20.5% (36.0-47.0) Mean Corpuscular Volume 89fL (79-100) Mean Corpuscular Hemoglobin 29pg (25-35) Mean Corpuscular Hemoglobin Concent 32g/dL (31-37) Red Cell Distribution Width 16.9% (11.5-14.5) Platelet Count 161x10^3/uL (140-400) Neutrophils (%) (Auto) 82% (31-73) Lymphocytes (%) (Auto) 10% (24-48) Monocytes (%) (Auto) 6% (0-9) Eosinophils (%) (Auto) 1% (0-3) Basophils (%) (Auto) 1% (0-3) Neutrophils # (Auto) 14.3x10^3uL (1.8-7.7) Lymphocytes # (Auto) 1.8x10^3/uL (1.0-4.8) Monocytes # (Auto) 1.1x10^3/uL (0.0-1.1) Eosinophils # (Auto) 0.2x10^3/uL (0.0-0.7) Basophils # (Auto) 0.1x10^3/uL (0.0-0.2) Erythrocyte Sedimentation Rate > 140 (0-25) Sodium Level 143mmol/L (136-145) Potassium Level 3.7mmol/L (3.5-5.1) Chloride Level 110mmol/L (98-107) Carbon Dioxide Level 22mmol/L (21-32) Anion Gap 11 (6-14) Blood Urea Nitrogen 23mg/dL (7-20) Creatinine 0.9mg/dL (0.6-1.0) Estimated GFR (Cockcroft-Gault) 68.7 Glucose Level 118mg/dL (70-99) Calcium Level 7.4mg/dL (8.5-10.1) C-Reactive Protein, Quantitative 301.0mg/L (0-3.3) O2 Saturation 98% (92-99) Arterial Blood pH 7.46 (7.35-7.45) Arterial Blood pCO2 at Patient Temp 35mmHg (35-46) Arterial Blood pO2 at Patient Temp 98mmHg (75-108) Arterial Blood HCO3 24mmol/L (21-28) Arterial Blood Base Excess 0mmol/L (-3-3) FiO2 35 Lactic Acid Level 1.2mmol/L (0.4-2.0) Test 08/11/16 18:00 08/12/16 04:15 08/12/16 08:30 Urine Collection Type Unknown Urine Color Yellow Urine Clarity Clear Urine pH 5.5 Urine Specific [place] 1.025 Urine Protein 100mg/dL (NEG-TRACE) Urine Glucose (UA) Negativemg/dL (NEG) Urine Ketones (Stick) Negativemg/dL (NEG) Urine Blood Negative (NEG) Urine Nitrite Negative (NEG) Urine Bilirubin Negative (NEG) Urine Urobilinogen Dipstick 0.2mg/dL (0.2 mg/dL) Urine Leukocyte Esterase Negative (NEG) Urine RBC Rare/HPF (0-2) Urine WBC Occ/HPF (0-4) Urine Squamous Epithelial Cells Occ/LPF Urine Bacteria 0/HPF (0-FEW) White Blood Count 15.7x10^3/uL (4.0-11.0) Red Blood Count 2.47x10^6/uL (3.50-5.40) Hemoglobin 7.3g/dL (12.0-15.5) Hematocrit 21.6% (36.0-47.0) Mean Corpuscular Volume 87fL (79-100) Mean Corpuscular Hemoglobin 29pg (25-35) Mean Corpuscular Hemoglobin Concent 34g/dL (31-37) Red Cell Distribution Width 16.1% (11.5-14.5) Platelet Count 182x10^3/uL (140-400) Neutrophils (%) (Auto) 82% (31-73) Lymphocytes (%) (Auto) 11% (24-48) Monocytes (%) (Auto) 6% (0-9) Eosinophils (%) (Auto) 1% (0-3) Basophils (%) (Auto) 1% (0-3) Neutrophils # (Auto) 12.8x10^3uL (1.8-7.7) Lymphocytes # (Auto) 1.7x10^3/uL (1.0-4.8) Monocytes # (Auto) 0.9x10^3/uL (0.0-1.1) Eosinophils # (Auto) 0.2x10^3/uL (0.0-0.7) Basophils # (Auto) 0.1x10^3/uL (0.0-0.2) Segmented Neutrophils % 67% (35-66) Band Neutrophils % 16% (0-9) Lymphocytes % 11% (24-48) Atypical Lymphocytes % (Manual) 2% (0-0) Monocytes % 3% (0-10) Eosinophils % 1% (0-5) Toxic Granulation Slight Platelet Estimate Adequate (ADEQUATE) Anisocytosis Slight Schistocytes Occ Sodium Level 138mmol/L (136-145) Potassium Level 3.2mmol/L (3.5-5.1) Chloride Level 106mmol/L (98-107) Carbon Dioxide Level 24mmol/L (21-32) Anion Gap 8 (6-14) Blood Urea Nitrogen 19mg/dL (7-20) Creatinine 0.9mg/dL (0.6-1.0) Estimated GFR (Cockcroft-Gault) 68.7 Glucose Level 111mg/dL (70-99) Calcium Level 7.5mg/dL (8.5-10.1) O2 Saturation 98% (92-99) Arterial Blood pH 7.44 (7.35-7.45) Arterial Blood pCO2 at Patient Temp 31mmHg (35-46) Arterial Blood pO2 at Patient Temp 118mmHg (75-108) Arterial Blood HCO3 20mmol/L (21-28) Arterial Blood Base Excess -3mmol/L (-3-3) FiO2 35 Laboratory Tests Test 08/11/16 16:05 08/11/16 18:00 08/12/16 04:15 08/12/16 08:30 Lactic Acid Level 1.2mmol/L (0.4-2.0) Urine Collection Type Unknown Urine Color Yellow Urine Clarity Clear Urine pH 5.5 Urine Specific [place] 1.025 Urine Protein 100mg/dL (NEG-TRACE) Urine Glucose (UA) Negativemg/dL (NEG) Urine Ketones (Stick) Negativemg/dL (NEG) Urine Blood Negative (NEG) Urine Nitrite Negative (NEG) Urine Bilirubin Negative (NEG) Urine Urobilinogen Dipstick 0.2mg/dL (0.2 mg/dL) Urine Leukocyte Esterase Negative (NEG) Urine RBC Rare/HPF (0-2) Urine WBC Occ/HPF (0-4) Urine Squamous Epithelial Cells Occ/LPF Urine Bacteria 0/HPF (0-FEW) White Blood Count 15.7x10^3/uL (4.0-11.0) Red Blood Count 2.47x10^6/uL (3.50-5.40) Hemoglobin 7.3g/dL (12.0-15.5) Hematocrit 21.6% (36.0-47.0) Mean Corpuscular Volume 87fL (79-100) Mean Corpuscular Hemoglobin 29pg (25-35) Mean Corpuscular Hemoglobin Concent 34g/dL (31-37) Red Cell Distribution Width 16.1% (11.5-14.5) Platelet Count 182x10^3/uL (140-400) Neutrophils (%) (Auto) 82% (31-73) Lymphocytes (%) (Auto) 11% (24-48) Monocytes (%) (Auto) 6% (0-9) Eosinophils (%) (Auto) 1% (0-3) Basophils (%) (Auto) 1% (0-3) Neutrophils # (Auto) 12.8x10^3uL (1.8-7.7) Lymphocytes # (Auto) 1.7x10^3/uL (1.0-4.8) Monocytes # (Auto) 0.9x10^3/uL (0.0-1.1) Eosinophils # (Auto) 0.2x10^3/uL (0.0-0.7) Basophils # (Auto) 0.1x10^3/uL (0.0-0.2) Segmented Neutrophils % 67% (35-66) Band Neutrophils % 16% (0-9) Lymphocytes % 11% (24-48) Atypical Lymphocytes % (Manual) 2% (0-0) Monocytes % 3% (0-10) Eosinophils % 1% (0-5) Toxic Granulation Slight Platelet Estimate Adequate (ADEQUATE) Anisocytosis Slight Schistocytes Occ Sodium Level 138mmol/L (136-145) Potassium Level 3.2mmol/L (3.5-5.1) Chloride Level 106mmol/L (98-107) Carbon Dioxide Level 24mmol/L (21-32) Anion Gap 8 (6-14) Blood Urea Nitrogen 19mg/dL (7-20) Creatinine 0.9mg/dL (0.6-1.0) Estimated GFR (Cockcroft-Gault) 68.7 Glucose Level 111mg/dL (70-99) Calcium Level 7.5mg/dL (8.5-10.1) O2 Saturation 98% (92-99) Arterial Blood pH 7.44 (7.35-7.45) Arterial Blood pCO2 at Patient Temp 31mmHg (35-46) Arterial Blood pO2 at Patient Temp 118mmHg (75-108) Arterial Blood HCO3 20mmol/L (21-28) Arterial Blood Base Excess -3mmol/L (-3-3) FiO2 35 Microbiology 08/09/16 Blood Culture - Preliminary, Resulted NO GROWTH AFTER 3 DAYS 08/08/16 AFB Specimen Processing Tissue - Final, Resulted 08/08/16 Acid Fast Bacilli Culture, Resulted Pending 08/08/16 Gram Stain - Final, Resulted 08/08/16 Fungal Culture, Resulted Pending 08/08/16 Fungal Culture Result 1, Resulted Pending Medications Current Medications Amino Acids/ Glycerin/ Electrolytes (Procalamine) 1,000 ml @ 100 mls/hr Q10H IV Last administered on 08/05/16 02:40; Start 08/02/16 at 03:00; Stop at 08:50; Status DC Morphine Sulfate 2 mg 2 mg PRN Q2HR PRN IV SEVERE PAIN Last administered on 11:59; Start 08/02/16 at 02:30; Stop 08/02/16 at 13:28; Status DC Daptomycin 220 mg/ Sodium Chloride 50 ml @ 100 mls/hr Q24H IV ; Start 08/02/16 at 09:15; Stop 08/02/16 at 15:58; Status DC Cefepime HCl 1 gm/ Sodium Chloride 50 ml @ 100 mls/hr Q12HR IV Last administered on 08/04/16 08:10; Start 08/02/16 at 10:00; Stop 08/04/16 at 10:33 ; Status DC Daptomycin/Sodium Chloride (Cubicin/Iv Sodium Chloride 0.9% 50ml) 50 ml @ 100 mls/hr ONCE ONCE IV ; Start 08/02/16 at 10:00; Stop 08/02/16 at 10:29; Status Cancel Potassium Chloride 40 meq 40 meq 1X ONCE PO Last administered on 08/02/16 10: 17; Start 08/02/16 at 09:45; Stop 08/02/16 at 09:46; Status DC Daptomycin/Sodium Chloride (Cubicin/Iv Sodium Chloride 0.9% 50ml) 50 ml @ 100 mls/hr Q24H IV Last administered on 08/03/16 09:43; Start 08/02/16 at 10:15; Stop 08/03/16 at 10:29; Status DC Potassium Chloride (Klor-Con) 40 meq 1X ONCE PO Last administered on 12:57; Start 08/02/16 at 12:30; Stop 08/02/16 at 12:36; Status DC Morphine Sulfate 5 mg PRN Q2HRS PRN IV MODERATE TO SEVERE PAIN Last administered on 08/04/16 08:16; Start 08/02/16 at 13:30 Morphine Sulfate 8 mg PRN Q2HRS PRN IV MODERATE TO SEVERE PAIN Last administered on 08/04/16 14:58; Start 08/02/16 at 13:30 Acetaminophen 650 mg 650 mg PRN Q6HRS PRN PO TEMP GREATER THAN 100.4 Last administered on 08/10/16 00:18; Start 08/02/16 at 14:45 Lactated Ringer's 1,000 ml @ 50 mls/hr Q20H IV ; Start 08/05/16 at 07:00; Stop 08/05/16 at 18:13; Status DC Daptomycin/Sodium Chloride (Cubicin/Iv Sodium Chloride 0.9% 50ml) 50 ml @ 100 mls/hr Q24H IV ; Start 08/03/16 at 11:00; Status Cancel Potassium Chloride (Klor-Con) 40 meq 1X ONCE PO Last administered on 17:41; Start 08/02/16 at 17:15; Stop 08/02/16 at 17:18; Status DC Potassium Chloride (Klor-Con) 40 meq BIDWMEALS PO ; Start 08/03/16 at 08:00; Stop 08/03/16 at 11:08; Status DC Morphine Sulfate 5 mg 1X ONCE IV Last administered on 08/02/16 21:45; Start 08/02/16 at 21:30; Stop 08/02/16 at 21:33; Status DC Lorazepam (Ativan) 1 mg 1X ONCE IV Last administered on 08/02/16 21:30; Start 08/02/16 at 21:30; Stop 08/02/16 at 21:33; Status DC Acetaminophen (Acetaminophen Supp) 650 mg PRN Q6HRS PRN UT MILD PAIN / TEMP Last administered on 08/11/16 23:58; Start 08/03/16 at 01:15 Albuterol/ Ipratropium (Duoneb) 3 ml RTQID NEB Last administered on 08/12/16 08:40; Start 08/03/16 at 08:00 Budesonide (Pulmicort) 0.5 mg RTBID NEB Last administered on 08/12/16 08:40; Start 08/03/16 at 08:00 Pantoprazole Sodium 40 mg 40 mg 1X ONCE IVP Last administered on 08/03/16 10: 06; Start 08/03/16 at 08:00; Stop 08/03/16 at 08:01; Status DC Daptomycin/Sodium Chloride (Cubicin/Iv Sodium Chloride 0.9% 50ml) 50 ml @ 100 mls/hr Q24H IV Last administered on 08/04/16 10:03; Start 08/04/16 at 10:00; Stop 08/04/16 at 10:33; Status DC Lorazepam (Ativan) 0.5 mg PRN Q6HRS PRN IV ANXIETY / AGITATION Last administered on 08/04/16 09:12; Start 08/03/16 at 11:15; Stop 08/07/16 at 11:02 ; Status DC Lorazepam (Ativan) 0.5 mg 1X ONCE IV Last administered on 08/04/16 10:00; Start 08/04/16 at 10:00; Stop 08/04/16 at 10:01; Status DC Morphine Sulfate 5 mg 1X ONCE IV Last administered on 08/04/16 10:00; Start 08/04/16 at 10:00; Stop 08/04/16 at 10:01; Status DC Lorazepam 0.5 mg 0.5 mg PRN Q4HRS PRN IV ANXIETY / AGITATION Last administered on 08/10/16 22:28; Start 08/04/16 at 10:00 Nafcillin Sodium 2 gm/Sodium Chloride 100 ml @ 200 mls/hr Q4HRS IV Last administered on 08/09/16 10:10; Start 08/04/16 at 12:00; Stop 08/09/16 at 11:49 ; Status DC Propofol (Diprivan) 100 ml @ As Directed STK-MED ONCE IV ; Start 08/04/16 at 16 :10; Stop 08/04/16 at 16:11; Status DC Succinylcholine Chloride (Anectine) 200 mg STK-MED ONCE .ROUTE ; Start 08/04/16 at 16:14; Stop 08/04/16 at 16:15; Status DC Succinylcholine Chloride 200 mg 200 mg 1X ONCE IV ; Start 08/04/16 at 16:45; Stop 08/04/16 at 16:46; Status DC Propofol (Diprivan) 100 ml @ 0 mls/hr CONT PRN IV SEE I/O RECORD Last administered on 08/12/16 09:44; Start 08/04/16 at 16:45 Lorazepam (Ativan) 0.5 mg 1X ONCE IV Last administered on 08/04/16 16:45; Start 08/04/16 at 16:45; Stop 08/04/16 at 16:46; Status DC Morphine Sulfate 5 mg 5 mg 1X ONCE IV Last administered on 08/04/16 16:44; Start 08/04/16 at 16:45; Stop 08/04/16 at 16:46; Status DC Fentanyl Citrate (Fentanyl 600 Mcg/30 ml QUALITY [employer]OL [employer]INEER) 30 ml @ 0 mls/hr CONT PRN IV PROTOCOL Last administered on 08/12/16 11:52; Start 08/04/16 at 16:45 Chlorhexidine Gluconate (Peridex) 15 ml BID MM Last administered on 08/12/16 09:24; Start 08/04/16 at 21:00 Famotidine 20 mg 20 mg BID IVP Last administered on 08/12/16 09:24; Start at 17:00 Sodium Chloride (Iv Sodium Chloride 0.9% 1000ml Bag) 1,000 ml @ 100 mls/hr Q10H IV Last administered on 08/07/16 04:35; Start 08/05/16 at 09:00; Stop at 08:59; Status DC Succinylcholine Chloride (Anectine) 200 mg STK-MED ONCE .ROUTE ; Start 08/04/16 at 16:00; Stop 08/05/16 at 12:32; Status DC Lorazepam (Ativan) 2 mg 1X ONCE IV Last administered on 08/05/16 20:43; Start 08/05/16 at 21:00; Stop 08/05/16 at 21:01; Status DC Furosemide (Lasix) 40 mg 1X PRN PRN IV blood transfusion Last administered on 14:17; Start 08/06/16 at 08:00; Stop 08/07/16 at 07:59; Status DC Sodium Bicarbonate 50 meq 1X ONCE IV Last administered on 08/06/16 14:06; Start 08/06/16 at 12:00; Stop 08/06/16 at 12:01; Status DC Calcium Chloride 1,000 mg STK-MED ONCE IV ; Start 08/04/16 at 12:00; Stop at 15:13; Status DC Epinephrine HCl (Epinephrine Syringe) 2 mg STK-MED ONCE .ROUTE ; Start 08/04/16 at 12:00; Stop 08/06/16 at 15:13; Status DC Sodium Bicarbonate 100 meq 100 meq STK-MED ONCE .ROUTE ; Start 08/04/16 at 12:00 ; Stop 08/06/16 at 15:13; Status DC Amino Acids/ Glycerin/ Electrolytes (Procalamine) 1,000 ml @ 100 mls/hr Q10H IV Last administered on 08/08/16 12:33; Start 08/07/16 at 10:00; Stop at 09:42; Status DC Enoxaparin Sodium (Lovenox 40mg Syringe) 40 mg Q24H SQ Last administered on 13:10; Start 08/07/16 at 13:00; Stop 08/10/16 at 10:43; Status DC Vecuronium [place] (Norcuron Bolus) 10 mg STK-MED ONCE IV ; Start 08/07/16 at 13 :56; Stop 08/07/16 at 13:57; Status DC Vecuronium [place] (Norcuron Bolus) 6 mg 1X ONCE IV Last administered on 14:06; Start 08/07/16 at 14:00; Stop 08/07/16 at 14:05; Status DC Sodium Bicarbonate 50 meq 1X ONCE IV Last administered on 08/08/16 11:46; Start 08/08/16 at 11:45; Stop 08/08/16 at 11:46; Status DC Nystatin 1 james 1 james BID TP Last administered on 08/12/16 09:24; Start at 21:00 Linezolid 300 ml @ 300 mls/hr Q12HR IV Last administered on 08/12/16 09:25; Start 08/09/16 at 09:00 Sodium Chloride 1,000 ml @ 50 mls/hr Q20H IV Last administered on 08/11/16 16 :43; Start 08/09/16 at 09:45 Sodium Bicarbonate/ Dextrose 1,150 ml @ 100 mls/hr 1X ONCE IV Last administered on 08/09/16 12:25; Start 08/09/16 at 11:30; Stop 08/09/16 at 22:59 ; Status DC Piperacillin Sod/ Tazobactam Sod 1 each 1 each PRN DAILY PRN MC SEE COMMENTS; Start 08/09/16 at 12:00 Piperacillin Sod/ Tazobactam Sod/ Sodium Chloride (Zosyn/Iv Sodium Chloride 0.9 % 100ml) 100 ml @ 200 mls/hr Q6HRS IV Last administered on 08/12/16 11:53; Start 08/09/16 at 12:30 Vecuronium [place] 5 mg 5 mg PRN Q4HRS PRN IV INCREASED RESPIRATORY,NOT RELI Last administered on 08/11/16 02:56; Start 08/09/16 at 13:30 Potassium Chloride 50 ml @ 100 mls/hr Q1H IV ; Start 08/10/16 at 09:30; Stop at 10:59; Status Cancel Potassium Chloride (KCl Premix 10meq) 100 ml @ 100 mls/hr Q1H IV Last administered on 08/10/16 16:28; Start 08/10/16 at 10:30; Stop 08/10/16 at 14:29 ; Status DC Potassium Chloride 60 meq 60 meq 1X ONCE PEG Last administered on 08/10/16 11 :16; Start 08/10/16 at 11:00; Stop 08/10/16 at 11:01; Status DC Sodium Bicarbonate/ Dextrose 1,150 ml @ 100 mls/hr [id number] IV Last administered on 08/10/16 11:14; Start 08/10/16 at 11:00; Stop 08/10/16 at 22:29 ; Status DC Enoxaparin Sodium 40 mg 40 mg Q24H SQ ; Start 08/10/16 at 13:00; Stop 08/10/16 at 13:00; Status DC Micafungin Sodium/ Dextrose (Mycamine) 100 ml @ 100 mls/hr Q24H IV Last administered on 08/11/16 16:42; Start 08/11/16 at 16:00 Furosemide (Lasix) 40 mg 1X ONCE IVP Last administered on 08/12/16 08:38; Start 08/12/16 at 08:00; Stop 08/12/16 at 08:06; Status DC Active Scripts Active Reported No Known Medications Prior To Admisstion (Info) Each 1 Each Vitals/I & O Vital Sign - Last 24 Hours 08/11/16 08/11/16 08/11/16 08/11/16 13:00 13:24 14:00 15:00 Pulse 109 107 110 Resp 30 28 32 39 B/P 117/64 104/56 113/66 Pulse Ox 100 100 100 O2 Delivery Ventilator Ventilator Ventilator Ventilator 08/11/16 08/11/16 08/11/16 08/11/16 16:00 16:00 16:10 17:00 Temp 100.4 100.4 Pulse 109 107 Resp 34 35 B/P 104/58 109/60 Pulse Ox 100 100 100 O2 Delivery Ventilator Mechanical Ventilator Ventilator Ventilator 08/11/16 08/11/16 08/11/16 08/11/16 17:34 18:00 19:00 19:30 Temp 100.9 100.9 Pulse 106 105 Resp 31 29 B/P 104/59 107/55 Pulse Ox 100 100 99 O2 Delivery Ventilator Ventilator Ventilator Mechanical Ventilator 08/11/16 08/11/16 08/11/16 08/11/16 20:00 20:23 20:25 21:00 Pulse 113 Resp 28 33 B/P 105/56 Pulse Ox 100 100 100 100 O2 Delivery Ventilator Ventilator Ventilator Ventilator 08/11/16 08/11/16 08/11/16 08/11/16 21:00 22:00 23:00 23:41 Pulse 112 110 104 Resp 29 28 28 B/P 101/53 102/59 105/60 Pulse Ox 100 100 100 100 O2 Delivery Ventilator Ventilator Ventilator Ventilator 08/12/16 08/12/16 08/12/16 08/12/16 00:00 00:00 01:00 02:00 Temp 101.4 100.9 101.4 100.9 Pulse 102 105 100 Resp 23 26 24 B/P 102/61 91/48 94/53 Pulse Ox 100 100 100 O2 Delivery Mechanical Ventilator Ventilator Ventilator Ventilator 08/12/16 08/12/16 08/12/16 08/12/16 02:37 03:00 03:45 03:48 Pulse 97 Resp 23 B/P 98/57 Pulse Ox 100 100 100 O2 Delivery Ventilator Ventilator Mechanical Ventilator Ventilator 08/12/16 08/12/16 08/12/16 08/12/16 04:00 04:33 05:03 06:00 Temp 97.6 97.6 Pulse 98 93 91 Resp B/P 101/58 90/51 95/53 Pulse Ox 100 99 100 100 O2 Delivery Ventilator Ventilator Ventilator Ventilator 08/12/16 08/12/16 08/12/16 08/12/16 06:06 07:00 08:00 08:00 Temp 100.4 100.4 Pulse 92 92 Resp B/P 90/51 97/56 Pulse Ox 99 100 100 O2 Delivery Ventilator Ventilator Mechanical Ventilator Ventilator 08/12/16 08/12/16 08/12/16 08/12/16 08:41 09:00 10:00 11:00 Pulse 93 102 106 Resp B/P 100/53 98/49 104/61 Pulse Ox 100 100 100 100 O2 Delivery Ventilator Ventilator Ventilator Ventilator 08/12/16 08/12/16 08/12/16 11:52 12:00 12:00 Temp 100.1 100.1 Pulse 108 Resp 25 B/P 113/58 Pulse Ox 100 O2 Delivery Ventilator Mechanical Ventilator Ventilator Intake and Output 08/11/16 08/11/16 08/12/16 15:00 23:00 07:00 Intake Total 885 ml 2446.45 ml 2544 ml Output Total 855 ml 275 ml Balance 885 ml 1591.45 ml 2269 ml Nutrition Consultation Dietary Evaluation: Recommendations by RD: PPN/TPN Comments: Continue TF's with [employer] HN, goal rate of 45 ml/hr flushes 140 cc q4h Expected Outcomes/Goals: meet >75% est nutr needs - met Interpretation of weight loss: >7.5% in 3 months Malnutrition Findings: Food and Nutrition Intake (Mod: <75% est energy req 7days Body Fat Depletion (Non Severe: Mild Depletion 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
--- NOTE | 2016-08-12 13:52 | PDOC ---
Provider Note Provider Note Patient has failed to wean from the ventilator. On minimal vent settings. Normotensive, no inotropic support. Plan for tracheostomy tomorrow at 1pm Consent Type and screen Hold tube feeds at midnight Coags (INR/PTT) MARCUS RASHID MD Aug 12, 2016 13:52
--- NOTE | 2016-08-12 15:26 | RAD ---
Exam: AP portable chest. History: PICC placement. Comparison: Earlier 08/12/2016. Findings: Patient is slightly rotated. Endotracheal tube tip projects 6 cm above the sundar. Esophagogastric tube is present with tip not seen, but at least to the body of the stomach. There has been interval placement of a left-sided PICC line. Course of PICC line appears to somewhat atypical as it appears to be located more to the left than would be expected. It is possible that the appearance could be due to artifact of rotation and location of the tip 4 cm inferior to the atriocaval junction, although arterial location of PICC line would be additional possibility with tip projecting near the aortic valve. There is evidence of bilateral pleural effusions. Opacity involving the inferior left hemithorax is similar to previous study. Bilateral airspace disease also appears similar. Impression: 1. Atypical course of the left-sided PICC line. Tip of PICC line could be arterial location, possibly near the aortic valve versus located 4 cm inferior to the atriocaval junction with appearance due to rotation. I recommend correlation with blood return regarding venous versus arterial location. Results discussed with PICC line nurse at 1523 hours. 2. Otherwise, no significant interval change.
[2016-08-12] MEDS: MICAFUNGIN 100 MG in IV DEXTROSE 5% 100 ML IV SCH (16:05)
--- NOTE | 2016-08-12 16:10 | RAD ---
Portable chest, 08/12/2016, 3:57 PM: History: Check PICC repositioning Comparison is made to the study of earlier the same day at 3:08 PM. The tip of the right PICC now lies at the level of the atriocaval junction. The ET tube and NG tube are unchanged in positions. There are moderate ongoing bilateral pulmonary infiltrates as well as scattered cavitary nodules. There may be pleural fluid contributing to the basilar opacities. No new pulmonary abnormality is seen. IMPRESSION: 1. The left PICC has been repositioned and is now in satisfactory position. 2. No other significant interval change.
[2016-08-12 18:36] LABS: INR 1.4 (0.8-1.1); PROTHROMBIN TIME PATIENT 16.2 SEC (11.7-14.0)
[2016-08-12] MEDS: IV 1/2 NORMAL SALINE 1,000 ML IV SCH (23:32)
[2016-08-13] VITALS (21 sets, daily range): BP systolic 87–122; BP diastolic 46–62
[2016-08-13] MEDS: PROPOFOL 100 ML IV PRN ×4 (03:12→21:04)
[2016-08-13] MEDS: ACETAMINOPHEN 650 MG SUPP.RECT. PR PRN (03:13)
[2016-08-13 06:19] LABS: CALCIUM 7.2 mg/dL (8.5-10.1); CREATININE 0.8 mg/dL (0.6-1.0); GFR 78.7
[2016-08-13 06:22] LABS: POTASSIUM 2.9 mmol/L (3.5-5.1)
[2016-08-13] MEDS: PIPERACILLIN/TAZOBACTAM 4.5 GM in IV NORMAL SALINE 100ML 100 ML IV SCH ×4 (06:49→23:38)
[2016-08-13] MEDS: POTASSIUM CHLORIDE 20MEQ 50 ML IV SCH ×2 (07:00→07:57)
[2016-08-13] MEDS ORDERED: MORPHINE SULFATE 2 MG/ML DISP.SYRIN. IV PRN ×2 (07:00)
[2016-08-13] MEDS ORDERED: HYDROmorphone 2 MG/ML VIAL IV PRN ×2 (07:00)
[2016-08-13] MEDS ORDERED: PROCHLORPERAZINE 10 MG/2 ML VIAL. IV PRN ×2 (07:00)
[2016-08-13] MEDS ORDERED: IV RINGERS,LACTATED 1000ML 1,000 ML IV SCH ×2 (07:00)
[2016-08-13] MEDS ORDERED: LIDOCAINE 1% 1 ML SYRINGE. ID PRN ×2 (07:00)
--- NOTE | 2016-08-13 07:36 | PDOC ---
Infectious Disease Note Subjective Subjective Remains intubated. FiO2 35% Sedated some but opens eye. Tube feedings Loose stools ROS ROS Unobtainable Vital Sign Vital Signs Vital Signs Date Time Temp Pulse Resp B/P Pulse Ox O2 Delivery O2 Flow Rate FiO2 08/13/16 06:00 94 22 95/53 100 Ventilator 08/13/16 00:00 98.9 98.9 Physical Exam PHYSICAL EXAM GENERAL: Intubated and sedated, mittens, anasarca HEENT: PERRL, ETT. NGT LUNGS: Clear HEART: S1S2, no gallop, no murmur ABD: Mildly distended, BS present, soft, BS present : [place] EXT: No cyanosis. BLE trace edema [employer]ATOR: opens eyes/sedated SKIN: No rash. tattoos IV: PICC clean Labs Lab Laboratory Tests Test 08/12/16 08:30 08/12/16 18:15 08/13/16 05:45 O2 Saturation 98% (92-99) Arterial Blood pH 7.44 (7.35-7.45) Arterial Blood pCO2 at Patient Temp 31mmHg (35-46) Arterial Blood pO2 at Patient Temp 118mmHg (75-108) Arterial Blood HCO3 20mmol/L (21-28) Arterial Blood Base Excess -3mmol/L (-3-3) FiO2 35 Prothrombin Time 16.2SEC (11.7-14.0) Prothromb Time International Ratio 1.4 (0.8-1.1) Sodium Level 136mmol/L (136-145) Potassium Level 2.9mmol/L (3.5-5.1) Chloride Level 103mmol/L (98-107) Carbon Dioxide Level 24mmol/L (21-32) Anion Gap 9 (6-14) Blood Urea Nitrogen 18mg/dL (7-20) Creatinine 0.8mg/dL (0.6-1.0) Estimated GFR (Cockcroft-Gault) 78.7 Glucose Level 98mg/dL (70-99) Calcium Level 7.2mg/dL (8.5-10.1) Objective Assessment Fever - persistent fever despite abx. ? Endocarditis/septic emboli/Occult source - antifungal added 08/11. UA -neg Acute anemia 2 units PRBCs 08/06. 08/11 s/p PRBC 1 unit. ? etiology Acute Resp failure - Intubated ? developing ARDS. S/p Bronch 08/08. thick plugs. MSSA. CT 08/09 reviewed MSSA 08/01 sepsis - repeat 08/05+ MSSA. cult 08/07 +. 08/09 neg so far ESR >140 & CRP 301.0 ? reactive Hep C IV drug use. Right-sided bacterial endocarditis. Repeat ECHO smaller veg on TV 08/09 -TTE. 3.0 x 2.0cm mobile mass TV -BC NGTD, 08/01 ([facility]). Multiple pulmonary nodules Ileus Renal insufficiency. Severe thrombocytopenia. Leukocytosis. Hepatosplenomegaly on CT Plan Plan of Care Trach today Continue Zyvox and Zosyn/Melissa added 08/11. taper 08/14 after procedure After trach 08/14 CT abd/pel with contrast to r/o occult source if fever persists F/u labs & cultures May need steroids Supportive care Cefepime/Dapto 08/02-08/04 Nafcillin 08/04- 08/09 Zosyn/Zyvox 08/09- to date Critically ill KAYLYNN SHAY MD Aug 13, 2016 07:36
[2016-08-13 08:02] LABS: HCO3 ABG 22 mmol/L (21-28); PCO2 ABG 33 mmHg (35-46); PH ABG 7.45 (7.35-7.45); PO2 ABG 118 mmHg (75-108); SAT O2 ABG 98 % (92-99)
[2016-08-13] MEDS: BUDESONIDE 0.5 MG/2 ML NEBU. NEB SCH ×2 (08:06→20:01)
[2016-08-13] MEDS: IPRATRPIUM/ALBUTEROL 0.5/2.5MG 3 ML NEBU. NEB SCH ×4 (08:06→20:01)
[2016-08-13 08:45] LABS: FIO2 ABG 35
[2016-08-13] MEDS: FAMOTIDINE 20 MG/2 ML VIAL IVP SCH ×2 (08:57→21:02)
[2016-08-13] MEDS: CHLORHEXIDINE 0.12% 15 ML MOUTHWASH. MM SCH ×2 (08:59→21:03)
[2016-08-13] MEDS: NYSTATIN TOPICAL POWDER 15GM BOTTLE. TP SCH ×2 (09:00→21:02)
--- NOTE | 2016-08-13 09:07 | RAD ---
Portable chest, 08/13/2016: History: Respiratory failure Comparison is made to yesterday's study. The ET tube tip lies well above the sundar. An NG tube extends into the stomach. A left PICC extends into the inferior aspect of the superior vena cava. The heart size is unchanged. There are moderate ongoing bibasilar opacities, left greater than right suggesting a combination of infiltrate and pleural fluid. There are underlying residual cavitary nodules in both lungs which appear unchanged. There is no evidence of pneumothorax. No new abnormality is detected. IMPRESSION: 1. Stable tube positions. 2. Moderate ongoing infiltrate and pleural fluid in the lower chest, left greater than right. 3. Unchanged bilateral cavitary pulmonary nodules, again compatible with septic emboli.
--- NOTE | 2016-08-13 10:13 | PDOC4 ---
PROCEDURE Procedure EGD/PEG Indication: Respiratory failure/on ventilator/enteral access desired for feeding. Meds: propofol for vent control. Findings: E--No varices. Tube-induced erosions/reflux distally. G--No varices. NG-induced erosions, antrum. D--Normal to distal bulb. --20F pull-type PEG placed uneventfully. Wound up more lateral than typical, but where the "window" was. Tolerated well. IMP: Tube-induced lesions. Successful PEG. REC: Meds/water OK per G-tube today. If no problems, resume TF in AM. RICHAR LITTLE MD Aug 13, 2016 10:13
[2016-08-13] MEDS ORDERED: ROCURONIUM 50 MG/5 ML VIAL. ONE (12:50)
[2016-08-13] MEDS ORDERED: PROPOFOL 20 ML IV ONE (12:53)
[2016-08-13] MEDS ORDERED: SEVOFLURANE 31 TO 60 MINUTES. IH ONE (14:04)
--- NOTE | 2016-08-13 14:29 | PDOC ---
BRIEF OPERATIVE NOTE Date: Aug 13, 2016 Pre-Op Diagnosis Ventilator dependent respiratory failure Tricuspid valve endocarditis Sepsis Post-Op Diagnosis Ventilator dependent respiratory failure Tricuspid valve endocarditis Sepsis Procedure Performed Tracheostomy Surgeon Marcus Rashid MD Anesthesiologist Dr Smith Anesthesia Type: General Blood Loss 5 mls IV Fluid N/A Urine Output N/A Specimens Obtained No Complications None MARCUS RASHID MD Aug 13, 2016 14:29
--- NOTE | 2016-08-13 14:31 | PDOC4 ---
Operative Note Operative Note Date Aug 13, 2016 Preoperative diagnosis Ventilator dependent respiratory failure Tricuspid valve endocarditis Sepsis Postoperative diagnosis Ventilator dependent respiratory failure Tricuspid valve endocarditis Sepsis Procedure Tracheostomy Surgeon Marcus Rashid MD Anesthesiologist Dr Smith Anesthesia Type General Blood Loss 5 mls IV fluids N/A Urine output N/A Specimens obtained No Complications None Indication The patient is a 41-year-old female with a history of IVDA who presented to [facility] 10 days ago fatigue, weakness, fever, body aches. She had an echo which demonstrated a large tricuspid valve vegetation, measuring 2 x 3 cm causing mild to moderate TR. She was subsequently transferred to [facility]. Upon admission the patient appeared to be septic, with tachycardia, hypoxia, leukocytosis, fevers. In addition she had acute renal failure and severe thrombocytopenia. Her hypoxia deteriorated requiring intubation. Over the past week she has failed several CPAP trials predominantly owing to delirium. Tracheostomy was indicated. The risks, benefits and limitations of the procedure were explained to the patient's spouse who agreed to proceed. Informed consent was obtained. Operation The patient's ID was confirmed using 2 unique identifies. The patient was transferred to the OR intubated from the ICU. She was placed supine on the operating table with both arms tucked. A shoulder roll was also placed to facilitate mild neck extension which helped identify neck landmarks. The patient 's neck was prepped and draped in the usual sterile surgical fashion. The patient has been receiving therapeutic antibiotics, thus antibiotic prophylaxis was not given. A timeout was then performed. A 3 cm transverse incision in the skin crease just below the level of the cricoid cartilage was made. The incision was deepened through the subcutaneous tissues followed by the platysma. She had large collateral veins across her anterior neck. 2 of these veins were encountered and ligated with 3-0 Vicryl ties. The strap muscles were bluntly at the median raphe. The isthmus of the thyroid was identified and divided using electrocautery. The pretracheal fascia was incised. Hemostasis of the thyroid gland and surrounding tissues was performed. I clearly identified the cricoid cartilage, the first, second and third tracheal rings. I then asked anesthesia to deflate the endotracheal tube balloon. The first and second tracheal ring anteriorly were then excised. The endotracheal tube was slowly withdrawn and a 8 fr cuffed, non fenestrated tracheostomy tube was inserted with ease. The inner cannula was placed and secured. The tracheostomy was connected to the ventilator with excellent tidal volume return. The tracheostomy was secured with four 2-0 nylon's and a trach collar. At the end of the procedure, the instrument, sponge and needle counts were correct. The patient was transferred back to the ICU in stable condition. MARCUS RASHID MD Aug 13, 2016 14:31
--- NOTE | 2016-08-13 15:57 | PDOC ---
PROGRESS NOTES Chief Complaint Chief Complaint cc: Severe pain in chest associated with breathing and abdominal pain -Resp failure on Vent - polysubstance abuse -Hep C, right -rotator cuff repair -Tobacco use -20lb weight loss over the last couple of months -Renal insufficiency -Pneumonia -Septic emboli History of Present Illness History of Present Illness Ms. Escamilla continued to be in bed with a ventilator in place. Her ventilator settings were: A/C / f 22 / VT 450 / FiO2% 35. She had propofol, KCl, and fentanyl hanging from her IV rack. She had PEG placement and a tracheostomy as well. She was able to follow commands. Vitals Vitals Vital Signs Date Time Temp Pulse Resp B/P Pulse Ox O2 Delivery O2 Flow Rate FiO2 08/13/16 15:29 100 Ventilator 08/13/16 15:00 93 24 89/49 08/13/16 12:00 99.6 99.6 Physical Exam General: Cooperative, No acute distress Heart: Regular rate, Normal S1, Normal S2 Lungs: Clear, Other (Coarse breath sounds were heard) Abdomen: No tenderness, No masses Extremities: No clubbing, No edema Skin: No rashes, Other (Needle track guillory noted on extensor side of right upper extremitiy) Labs LABS Laboratory Tests Test 08/12/16 18:15 08/13/16 05:45 08/13/16 08:00 Prothrombin Time 16.2SEC (11.7-14.0) Prothromb Time International Ratio 1.4 (0.8-1.1) Sodium Level 136mmol/L (136-145) Potassium Level 2.9mmol/L (3.5-5.1) Chloride Level 103mmol/L (98-107) Carbon Dioxide Level 24mmol/L (21-32) Anion Gap 9 (6-14) Blood Urea Nitrogen 18mg/dL (7-20) Creatinine 0.8mg/dL (0.6-1.0) Estimated GFR (Cockcroft-Gault) 78.7 Glucose Level 98mg/dL (70-99) Calcium Level 7.2mg/dL (8.5-10.1) O2 Saturation 98% (92-99) Arterial Blood pH 7.45 (7.35-7.45) Arterial Blood pCO2 at Patient Temp 33mmHg (35-46) Arterial Blood pO2 at Patient Temp 118mmHg (75-108) Arterial Blood HCO3 22mmol/L (21-28) Arterial Blood Base Excess -2mmol/L (-3-3) FiO2 35 Review of Systems Review of Systems This portion of the exam was unable to be completed due to the patient's current ventilator status. Assessment and Plan Assessmemt and Plan Assessment: Ms. Escamilla is a 41 year old female who presented with severe pain in the chest associated with breathing and abdominal pain. -Resp failure on Vent - polysubstance abuse -Hep C, right -rotator cuff repair -Tobacco use -20lb weight loss over the last couple of months -Renal insufficiency -Pneumonia -Septic emboli Plan: 1. Continue to monitor anemia 2. Recheck rest of labs 3. PT/OT 4. Determine possibility of LTAC placement 5. Continue pain management medication with acetaminophen 6. Continue antibiotics Zosyn and linezolid 7. Continue mouthrinse chlorhexadine 8. Monitor potassium levels 9. Appreciate consultation from surgery, cardiothoracic surgery, pulmonology, ID , and gastroenterology Prognosis is guarded Total time 32 minutes Problems: Comment Review of Relevant I have reviewed the following items shanta (where applicable) has been applied. Labs Laboratory Tests Test 08/11/16 16:05 08/11/16 18:00 08/12/16 04:15 08/12/16 08:30 Lactic Acid Level 1.2mmol/L (0.4-2.0) Urine Collection Type Unknown Urine Color Yellow Urine Clarity Clear Urine pH 5.5 Urine Specific [place] 1.025 Urine Protein 100mg/dL (NEG-TRACE) Urine Glucose (UA) Negativemg/dL (NEG) Urine Ketones (Stick) Negativemg/dL (NEG) Urine Blood Negative (NEG) Urine Nitrite Negative (NEG) Urine Bilirubin Negative (NEG) Urine Urobilinogen Dipstick 0.2mg/dL (0.2 mg/dL) Urine Leukocyte Esterase Negative (NEG) Urine RBC Rare/HPF (0-2) Urine WBC Occ/HPF (0-4) Urine Squamous Epithelial Cells Occ/LPF Urine Bacteria 0/HPF (0-FEW) White Blood Count 15.7x10^3/uL (4.0-11.0) Red Blood Count 2.47x10^6/uL (3.50-5.40) Hemoglobin 7.3g/dL (12.0-15.5) Hematocrit 21.6% (36.0-47.0) Mean Corpuscular Volume 87fL (79-100) Mean Corpuscular Hemoglobin 29pg (25-35) Mean Corpuscular Hemoglobin Concent 34g/dL (31-37) Red Cell Distribution Width 16.1% (11.5-14.5) Platelet Count 182x10^3/uL (140-400) Neutrophils (%) (Auto) 82% (31-73) Lymphocytes (%) (Auto) 11% (24-48) Monocytes (%) (Auto) 6% (0-9) Eosinophils (%) (Auto) 1% (0-3) Basophils (%) (Auto) 1% (0-3) Neutrophils # (Auto) 12.8x10^3uL (1.8-7.7) Lymphocytes # (Auto) 1.7x10^3/uL (1.0-4.8) Monocytes # (Auto) 0.9x10^3/uL (0.0-1.1) Eosinophils # (Auto) 0.2x10^3/uL (0.0-0.7) Basophils # (Auto) 0.1x10^3/uL (0.0-0.2) Segmented Neutrophils % 67% (35-66) Band Neutrophils % 16% (0-9) Lymphocytes % 11% (24-48) Atypical Lymphocytes % (Manual) 2% (0-0) Monocytes % 3% (0-10) Eosinophils % 1% (0-5) Toxic Granulation Slight Platelet Estimate Adequate (ADEQUATE) Anisocytosis Slight Schistocytes Occ Sodium Level 138mmol/L (136-145) Potassium Level 3.2mmol/L (3.5-5.1) Chloride Level 106mmol/L (98-107) Carbon Dioxide Level 24mmol/L (21-32) Anion Gap 8 (6-14) Blood Urea Nitrogen 19mg/dL (7-20) Creatinine 0.9mg/dL (0.6-1.0) Estimated GFR (Cockcroft-Gault) 68.7 Glucose Level 111mg/dL (70-99) Calcium Level 7.5mg/dL (8.5-10.1) O2 Saturation 98% (92-99) Arterial Blood pH 7.44 (7.35-7.45) Arterial Blood pCO2 at Patient Temp 31mmHg (35-46) Arterial Blood pO2 at Patient Temp 118mmHg (75-108) Arterial Blood HCO3 20mmol/L (21-28) Arterial Blood Base Excess -3mmol/L (-3-3) FiO2 35 Test 08/12/16 18:15 08/13/16 05:45 08/13/16 08:00 Prothrombin Time 16.2SEC (11.7-14.0) Prothromb Time International Ratio 1.4 (0.8-1.1) Sodium Level 136mmol/L (136-145) Potassium Level 2.9mmol/L (3.5-5.1) Chloride Level 103mmol/L (98-107) Carbon Dioxide Level 24mmol/L (21-32) Anion Gap 9 (6-14) Blood Urea Nitrogen 18mg/dL (7-20) Creatinine 0.8mg/dL (0.6-1.0) Estimated GFR (Cockcroft-Gault) 78.7 Glucose Level 98mg/dL (70-99) Calcium Level 7.2mg/dL (8.5-10.1) O2 Saturation 98% (92-99) Arterial Blood pH 7.45 (7.35-7.45) Arterial Blood pCO2 at Patient Temp 33mmHg (35-46) Arterial Blood pO2 at Patient Temp 118mmHg (75-108) Arterial Blood HCO3 22mmol/L (21-28) Arterial Blood Base Excess -2mmol/L (-3-3) FiO2 35 Laboratory Tests Test 08/12/16 18:15 08/13/16 05:45 08/13/16 08:00 Prothrombin Time 16.2SEC (11.7-14.0) Prothromb Time International Ratio 1.4 (0.8-1.1) Sodium Level 136mmol/L (136-145) Potassium Level 2.9mmol/L (3.5-5.1) Chloride Level 103mmol/L (98-107) Carbon Dioxide Level 24mmol/L (21-32) Anion Gap 9 (6-14) Blood Urea Nitrogen 18mg/dL (7-20) Creatinine 0.8mg/dL (0.6-1.0) Estimated GFR (Cockcroft-Gault) 78.7 Glucose Level 98mg/dL (70-99) Calcium Level 7.2mg/dL (8.5-10.1) O2 Saturation 98% (92-99) Arterial Blood pH 7.45 (7.35-7.45) Arterial Blood pCO2 at Patient Temp 33mmHg (35-46) Arterial Blood pO2 at Patient Temp 118mmHg (75-108) Arterial Blood HCO3 22mmol/L (21-28) Arterial Blood Base Excess -2mmol/L (-3-3) FiO2 35 Microbiology 08/09/16 Blood Culture - Preliminary, Resulted NO GROWTH AFTER 4 DAYS 08/08/16 AFB Specimen Processing Tissue - Final, Resulted 08/08/16 Acid Fast Bacilli Culture, Resulted Pending 08/08/16 Gram Stain - Final, Resulted 08/08/16 Fungal Culture, Resulted Pending 08/08/16 Fungal Culture Result 1, Resulted Pending Medications Current Medications Amino Acids/ Glycerin/ Electrolytes (Procalamine) 1,000 ml @ 100 mls/hr Q10H IV Last administered on 08/05/16 02:40; Start 08/02/16 at 03:00; Stop at 08:50; Status DC Morphine Sulfate 2 mg 2 mg PRN Q2HR PRN IV SEVERE PAIN Last administered on 11:59; Start 08/02/16 at 02:30; Stop 08/02/16 at 13:28; Status DC Daptomycin 220 mg/ Sodium Chloride 50 ml @ 100 mls/hr Q24H IV ; Start 08/02/16 at 09:15; Stop 08/02/16 at 15:58; Status DC Cefepime HCl 1 gm/ Sodium Chloride 50 ml @ 100 mls/hr Q12HR IV Last administered on 08/04/16 08:10; Start 08/02/16 at 10:00; Stop 08/04/16 at 10:33 ; Status DC Daptomycin/Sodium Chloride (Cubicin/Iv Sodium Chloride 0.9% 50ml) 50 ml @ 100 mls/hr ONCE ONCE IV ; Start 08/02/16 at 10:00; Stop 08/02/16 at 10:29; Status Cancel Potassium Chloride 40 meq 40 meq 1X ONCE PO Last administered on 08/02/16 10: 17; Start 08/02/16 at 09:45; Stop 08/02/16 at 09:46; Status DC Daptomycin/Sodium Chloride (Cubicin/Iv Sodium Chloride 0.9% 50ml) 50 ml @ 100 mls/hr Q24H IV Last administered on 08/03/16 09:43; Start 08/02/16 at 10:15; Stop 08/03/16 at 10:29; Status DC Potassium Chloride (Klor-Con) 40 meq 1X ONCE PO Last administered on 12:57; Start 08/02/16 at 12:30; Stop 08/02/16 at 12:36; Status DC Morphine Sulfate 5 mg PRN Q2HRS PRN IV MODERATE TO SEVERE PAIN Last administered on 08/04/16 08:16; Start 08/02/16 at 13:30 Morphine Sulfate 8 mg PRN Q2HRS PRN IV MODERATE TO SEVERE PAIN Last administered on 08/04/16 14:58; Start 08/02/16 at 13:30 Acetaminophen 650 mg 650 mg PRN Q6HRS PRN PO TEMP GREATER THAN 100.4 Last administered on 08/10/16 00:18; Start 08/02/16 at 14:45 Lactated Ringer's 1,000 ml @ 50 mls/hr Q20H IV ; Start 08/05/16 at 07:00; Stop 08/05/16 at 18:13; Status DC Daptomycin/Sodium Chloride (Cubicin/Iv Sodium Chloride 0.9% 50ml) 50 ml @ 100 mls/hr Q24H IV ; Start 08/03/16 at 11:00; Status Cancel Potassium Chloride (Klor-Con) 40 meq 1X ONCE PO Last administered on 17:41; Start 08/02/16 at 17:15; Stop 08/02/16 at 17:18; Status DC Potassium Chloride (Klor-Con) 40 meq BIDWMEALS PO ; Start 08/03/16 at 08:00; Stop 08/03/16 at 11:08; Status DC Morphine Sulfate 5 mg 1X ONCE IV Last administered on 08/02/16 21:45; Start 08/02/16 at 21:30; Stop 08/02/16 at 21:33; Status DC Lorazepam (Ativan) 1 mg 1X ONCE IV Last administered on 08/02/16 21:30; Start 08/02/16 at 21:30; Stop 08/02/16 at 21:33; Status DC Acetaminophen (Acetaminophen Supp) 650 mg PRN Q6HRS PRN NV MILD PAIN / TEMP Last administered on 08/13/16 03:13; Start 08/03/16 at 01:15 Albuterol/ Ipratropium (Duoneb) 3 ml RTQID NEB Last administered on 08/13/16 15:29; Start 08/03/16 at 08:00 Budesonide (Pulmicort) 0.5 mg RTBID NEB Last administered on 08/13/16 08:06; Start 08/03/16 at 08:00 Pantoprazole Sodium 40 mg 40 mg 1X ONCE IVP Last administered on 08/03/16 10: 06; Start 08/03/16 at 08:00; Stop 08/03/16 at 08:01; Status DC Daptomycin/Sodium Chloride (Cubicin/Iv Sodium Chloride 0.9% 50ml) 50 ml @ 100 mls/hr Q24H IV Last administered on 08/04/16 10:03; Start 08/04/16 at 10:00; Stop 08/04/16 at 10:33; Status DC Lorazepam (Ativan) 0.5 mg PRN Q6HRS PRN IV ANXIETY / AGITATION Last administered on 08/04/16 09:12; Start 08/03/16 at 11:15; Stop 08/07/16 at 11:02 ; Status DC Lorazepam (Ativan) 0.5 mg 1X ONCE IV Last administered on 08/04/16 10:00; Start 08/04/16 at 10:00; Stop 08/04/16 at 10:01; Status DC Morphine Sulfate 5 mg 1X ONCE IV Last administered on 08/04/16 10:00; Start 08/04/16 at 10:00; Stop 08/04/16 at 10:01; Status DC Lorazepam 0.5 mg 0.5 mg PRN Q4HRS PRN IV ANXIETY / AGITATION Last administered on 08/10/16 22:28; Start 08/04/16 at 10:00 Nafcillin Sodium 2 gm/Sodium Chloride 100 ml @ 200 mls/hr Q4HRS IV Last administered on 08/09/16 10:10; Start 08/04/16 at 12:00; Stop 08/09/16 at 11:49 ; Status DC Propofol (Diprivan) 100 ml @ As Directed STK-MED ONCE IV ; Start 08/04/16 at 16 :10; Stop 08/04/16 at 16:11; Status DC Succinylcholine Chloride (Anectine) 200 mg STK-MED ONCE .ROUTE ; Start 08/04/16 at 16:14; Stop 08/04/16 at 16:15; Status DC Succinylcholine Chloride 200 mg 200 mg 1X ONCE IV ; Start 08/04/16 at 16:45; Stop 08/04/16 at 16:46; Status DC Propofol (Diprivan) 100 ml @ 0 mls/hr CONT PRN IV SEE I/O RECORD Last administered on 08/13/16 09:35; Start 08/04/16 at 16:45 Lorazepam (Ativan) 0.5 mg 1X ONCE IV Last administered on 08/04/16 16:45; Start 08/04/16 at 16:45; Stop 08/04/16 at 16:46; Status DC Morphine Sulfate 5 mg 5 mg 1X ONCE IV Last administered on 08/04/16 16:44; Start 08/04/16 at 16:45; Stop 08/04/16 at 16:46; Status DC Fentanyl Citrate (Fentanyl 600 Mcg/30 ml LICENSED INSURANCE AGENT) 30 ml @ 0 mls/hr CONT PRN IV PROTOCOL Last administered on 08/13/16 11:53; Start 08/04/16 at 16:45 Chlorhexidine Gluconate (Peridex) 15 ml BID MM Last administered on 08/13/16 08:59; Start 08/04/16 at 21:00 Famotidine 20 mg 20 mg BID IVP Last administered on 08/13/16 08:57; Start at 17:00 Sodium Chloride (Iv Sodium Chloride 0.9% 1000ml Bag) 1,000 ml @ 100 mls/hr Q10H IV Last administered on 08/07/16 04:35; Start 08/05/16 at 09:00; Stop at 08:59; Status DC Succinylcholine Chloride (Anectine) 200 mg STK-MED ONCE .ROUTE ; Start 08/04/16 at 16:00; Stop 08/05/16 at 12:32; Status DC Lorazepam (Ativan) 2 mg 1X ONCE IV Last administered on 08/05/16 20:43; Start 08/05/16 at 21:00; Stop 08/05/16 at 21:01; Status DC Furosemide (Lasix) 40 mg 1X PRN PRN IV blood transfusion Last administered on 14:17; Start 08/06/16 at 08:00; Stop 08/07/16 at 07:59; Status DC Sodium Bicarbonate 50 meq 1X ONCE IV Last administered on 08/06/16 14:06; Start 08/06/16 at 12:00; Stop 08/06/16 at 12:01; Status DC Calcium Chloride 1,000 mg STK-MED ONCE IV ; Start 08/04/16 at 12:00; Stop at 15:13; Status DC Epinephrine HCl (Epinephrine Syringe) 2 mg STK-MED ONCE .ROUTE ; Start 08/04/16 at 12:00; Stop 08/06/16 at 15:13; Status DC Sodium Bicarbonate 100 meq 100 meq STK-MED ONCE .ROUTE ; Start 08/04/16 at 12:00 ; Stop 08/06/16 at 15:13; Status DC Amino Acids/ Glycerin/ Electrolytes (Procalamine) 1,000 ml @ 100 mls/hr Q10H IV Last administered on 08/08/16 12:33; Start 08/07/16 at 10:00; Stop at 09:42; Status DC Enoxaparin Sodium (Lovenox 40mg Syringe) 40 mg Q24H SQ Last administered on 13:10; Start 08/07/16 at 13:00; Stop 08/10/16 at 10:43; Status DC Vecuronium [place] (Norcuron Bolus) 10 mg STK-MED ONCE IV ; Start 08/07/16 at 13 :56; Stop 08/07/16 at 13:57; Status DC Vecuronium [place] (Norcuron Bolus) 6 mg 1X ONCE IV Last administered on 14:06; Start 08/07/16 at 14:00; Stop 08/07/16 at 14:05; Status DC Sodium Bicarbonate 50 meq 1X ONCE IV Last administered on 08/08/16 11:46; Start 08/08/16 at 11:45; Stop 08/08/16 at 11:46; Status DC Nystatin 1 james 1 james BID TP Last administered on 08/13/16 09:00; Start at 21:00 Linezolid 300 ml @ 300 mls/hr Q12HR IV Last administered on 08/13/16 08:57; Start 08/09/16 at 09:00 Sodium Chloride 1,000 ml @ 50 mls/hr Q20H IV Last administered on 08/12/16 23 :32; Start 08/09/16 at 09:45 Sodium Bicarbonate/ Dextrose 1,150 ml @ 100 mls/hr 1X ONCE IV Last administered on 08/09/16 12:25; Start 08/09/16 at 11:30; Stop 08/09/16 at 22:59 ; Status DC Piperacillin Sod/ Tazobactam Sod 1 each 1 each PRN DAILY PRN MC SEE COMMENTS; Start 08/09/16 at 12:00 Piperacillin Sod/ Tazobactam Sod/ Sodium Chloride (Zosyn/Iv Sodium Chloride 0.9 % 100ml) 100 ml @ 200 mls/hr Q6HRS IV Last administered on 08/13/16 13:00; Start 08/09/16 at 12:30 Vecuronium [place] 5 mg 5 mg PRN Q4HRS PRN IV INCREASED RESPIRATORY,NOT RELI Last administered on 08/11/16 02:56; Start 08/09/16 at 13:30 Potassium Chloride 50 ml @ 100 mls/hr Q1H IV ; Start 08/10/16 at 09:30; Stop at 10:59; Status Cancel Potassium Chloride (KCl Premix 10meq) 100 ml @ 100 mls/hr Q1H IV Last administered on 08/10/16 16:28; Start 08/10/16 at 10:30; Stop 08/10/16 at 14:29 ; Status DC Potassium Chloride 60 meq 60 meq 1X ONCE PEG Last administered on 08/10/16 11 :16; Start 08/10/16 at 11:00; Stop 08/10/16 at 11:01; Status DC Sodium Bicarbonate/ Dextrose 1,150 ml @ 100 mls/hr [id number] IV Last administered on 08/10/16 11:14; Start 08/10/16 at 11:00; Stop 08/10/16 at 22:29 ; Status DC Enoxaparin Sodium 40 mg 40 mg Q24H SQ ; Start 08/10/16 at 13:00; Stop 08/10/16 at 13:00; Status DC Micafungin Sodium/ Dextrose (Mycamine) 100 ml @ 100 mls/hr Q24H IV Last administered on 08/12/16 16:05; Start 08/11/16 at 16:00 Furosemide (Lasix) 40 mg 1X ONCE IVP Last administered on 08/12/16 08:38; Start 08/12/16 at 08:00; Stop 08/12/16 at 08:06; Status DC Morphine Sulfate 1 mg 1 mg PRN Q10MIN PRN IV SEVERE PAIN; Start 08/13/16 at 07: 00; Stop 08/14/16 at 06:59 Lactated Ringer's (Iv Lactated Ringers) 1,000 ml @ 0 mls/hr Q0M IV ; Start at 07:00; Stop 08/13/16 at 18:59 Lidocaine HCl 2 ml PRN 1X PRN ID PRIOR TO IV START; Start 08/13/16 at 07:00; Stop 08/14/16 at 06:59 Hydromorphone HCl (Dilaudid) 0.5 mg PRN Q10MIN PRN IV SEV PAIN, Second choice; Start 08/13/16 at 07:00; Stop 08/14/16 at 06:59 Prochlorperazine Edisylate (Compazine) 5 mg PACU PRN PRN IV NAUSEA, MRX1; Start 08/13/16 at 07:00; Stop 08/14/16 at 06:59 Morphine Sulfate 1 mg 1 mg PRN Q10MIN PRN IV SEVERE PAIN; Start 08/13/16 at 07: 00; Stop 08/14/16 at 06:59 Lactated Ringer's (Iv Lactated Ringers) 1,000 ml @ 0 mls/hr Q0M IV ; Start at 07:00; Stop 08/13/16 at 18:59 Lidocaine HCl 2 ml PRN 1X PRN ID PRIOR TO IV START; Start 08/13/16 at 07:00; Stop 08/14/16 at 06:59 Hydromorphone HCl (Dilaudid) 0.5 mg PRN Q10MIN PRN IV SEV PAIN, Second choice; Start 08/13/16 at 07:00; Stop 08/14/16 at 06:59 Prochlorperazine Edisylate 5 mg 5 mg PACU PRN PRN IV NAUSEA, MRX1; Start at 07:00; Stop 08/14/16 at 06:59 Potassium Chloride (KCl Premix 20meq) 50 ml @ 50 mls/hr Q1H IV Last administered on 08/13/16t 07:57; Start 08/13/16 at 07:00; Stop 08/13/16 at 08:59 ; Status DC Rocuronium [place] 50 mg 50 mg STK-MED ONCE .ROUTE ; Start 08/13/16 at 12:50; Stop 08/13/16 at 12:51; Status DC Propofol (Diprivan) 20 ml @ As Directed STK-MED ONCE IV ; Start 08/13/16 at 12: 53; Stop 08/13/16 at 12:54; Status DC Sevoflurane (Ultane) 30 ml STK-MED ONCE IH ; Start 08/13/16 at 14:04; Stop 08/13 at 14:05; Status DC Active Scripts Active Reported No Known Medications Prior To Admisstion (Info) Each 1 Each Vitals/I & O Vital Sign - Last 24 Hours 08/12/16 08/12/16 08/12/16 08/12/16 16:00 16:00 17:00 17:10 Temp 98.5 98.5 Pulse 110 104 Resp B/P 110/59 119/66 Pulse Ox 100 100 100 O2 Delivery Ventilator Mechanical Ventilator Ventilator Ventilator 08/12/16 08/12/16 08/12/16 08/12/16 18:00 19:00 20:00 20:00 Temp 98.4 98.4 Pulse 101 98 100 Resp 32 B/P 111/61 108/55 111/58 Pulse Ox 100 100 100 O2 Delivery Ventilator Ventilator Mechanical Ventilator Ventilator 08/12/16 08/12/16 08/12/16 08/12/16 20:39 21:00 22:08 23:00 Pulse 102 98 105 Resp 28 B/P 112/61 113/56 110/58 Pulse Ox 100 100 100 100 O2 Delivery Ventilator Ventilator Ventilator Ventilator 08/12/16 08/13/16 08/13/16 08/13/16 23:37 00:00 00:00 01:30 Temp 98.9 98.9 Pulse 98 Resp 27 B/P 110/54 Pulse Ox 100 100 99 O2 Delivery Ventilator Ventilator Mechanical Ventilator Ventilator 08/13/16 08/13/16 08/13/16 08/13/16 03:40 04:00 04:00 05:00 Pulse 95 96 Resp 24 22 B/P 96/52 95/52 Pulse Ox 100 100 100 O2 Delivery Ventilator Mechanical Ventilator Ventilator Ventilator 08/13/16 08/13/16 08/13/16 08/13/16 05:40 06:00 07:00 08:00 Temp 98.5 98.5 Pulse 94 94 Resp 28 B/P 95/53 94/49 Pulse Ox 100 100 100 O2 Delivery Ventilator Ventilator Ventilator Mechanical Ventilator 08/13/16 08/13/16 08/13/16 08/13/16 08:00 08:00 09:00 09:50 Pulse 92 98 100 Resp B/P 93/46 111/61 Pulse Ox 100 100 100 100 O2 Delivery Ventilator Ventilator Ventilator Ventilator 08/13/16 08/13/16 08/13/16 08/13/16 09:57 10:00 10:00 10:03 Pulse 92 93 96 Resp 23 B/P 109/59 Pulse Ox 100 100 100 100 O2 Delivery Ventilator Ventilator Ventilator Ventilator 08/13/16 08/13/16 08/13/16 08/13/16 10:06 10:11 11:00 11:42 Pulse 94 94 96 Resp 25 B/P 107/58 Pulse Ox 100 100 100 100 O2 Delivery Ventilator Ventilator Ventilator Ventilator 08/13/16 08/13/16 08/13/16 08/13/16 11:53 12:00 12:00 13:00 Temp 99.6 99.6 Pulse 94 96 Resp 26 B/P 100/51 92/55 Pulse Ox 100 100 100 O2 Delivery Ventilator Mechanical Ventilator Ventilator Ventilator 08/13/16 08/13/16 08/13/16 08/13/16 14:00 14:25 15:00 15:29 Pulse 107 93 Resp 26 24 B/P 122/62 89/49 Pulse Ox 98 99 100 O2 Delivery Ventilator Ventilator Ventilator Ventilator Intake and Output 08/12/16 08/12/16 08/13/16 15:00 23:00 07:00 Intake Total 700 ml 2661.95 ml 1193 ml Output Total 900 ml 1310 ml 400 ml Balance -200 ml 1351.95 ml 793 ml Nutrition Consultation Dietary Evaluation: Recommendations by RD: PPN/TPN Comments: Pt currently NPO for trach Rec. resume the TF's with Fibersource HN, goal rate of 45 ml/hr when medically appropriate flushes 140 cc q4h Consider need for intermediate nutrition route-PEG Expected Outcomes/Goals: meet >75% est nutr needs - met tolerate TF's at goal rate- met Interpretation of weight loss: >7.5% in 3 months Malnutrition Findings: Food and Nutrition Intake (Mod: <75% est energy req 7days Body Fat Depletion (Non Severe: Mild Depletion Reduced Gold Leaf Printer Strength: N/A Reduced Gold Leaf Printer Strength (Non-Sev: N/A Malnutrition related to morbid: No Weight Status: Appropriate Fluid Accumulation (N/A): N/A CODY BLACK III DO Aug 13, 2016 15:57
[2016-08-13] MEDS: IV 1/2 NORMAL SALINE 1,000 ML IV SCH (16:25)
[2016-08-13] MEDS: MICAFUNGIN 100 MG in IV DEXTROSE 5% 100 ML IV SCH (16:26)
[2016-08-13] MEDS ORDERED: ALBUMIN HUMAN 5% 250 ML IV ONE (18:00)
[2016-08-13] MEDS ORDERED: ALBUMIN HUMAN 5% 500 ML IV ONE (18:00)
[2016-08-14] VITALS (24 sets, daily range): BP systolic 89–125; BP diastolic 47–66
[2016-08-14] MEDS: PROPOFOL 100 ML IV PRN ×4 (01:21→20:52)
[2016-08-14] MEDS: PIPERACILLIN/TAZOBACTAM 4.5 GM in IV NORMAL SALINE 100ML 100 ML IV SCH (05:58)
[2016-08-14 06:41] LABS: BASO # 0.1 x10^3/uL (0.0-0.2); BASO % 1 % (0-3); EOS % 1 % (0-3); HEMATOCRIT 25.9 % (36.0-47.0); HEMOGLOBIN 8.9 g/dL (12.0-15.5); LYMPH % 10 % (24-48); MEAN CORPUSCULAR HEMOGLOBIN 30 pg (25-35); MEAN CORPUSCULAR HGB CONC 34 g/dL (31-37); MEAN CORPUSCULAR VOLUME 87 fL (79-100); MONO % 9 % (0-9); NEUT % 80 % (31-73); PLATELET COUNT 163 x10^3/uL (140-400); RED BLOOD COUNT 2.99 x10^6/uL (3.50-5.40); RED CELL DISTRIBUTION WIDTH 15.9 % (11.5-14.5); WHITE BLOOD COUNT 9.5 x10^3/uL (4.0-11.0)
[2016-08-14 06:50] LABS: CALCIUM 7.4 mg/dL (8.5-10.1); CREATININE 0.8 mg/dL (0.6-1.0); GFR 78.7
[2016-08-14 06:59] LABS: POTASSIUM 2.9 mmol/L (3.5-5.1)
--- NOTE | 2016-08-14 07:33 | PDOC ---
Infectious Disease Note Subjective Subjective Remains intubated via trach Tube feedings Loose stools ROS ROS GEN: Denies fevers, chills, sweats HEENT: Denies blurred vision, sore throat CV: Denies chest pain RESP: Denies shortness of air, cough GI: Denies n/v/d NEURO: Denies confusion, dizziness MSK: Denies weakness, joint pain/swelling Vital Sign Vital Signs Vital Signs Date Time Temp Pulse Resp B/P Pulse Ox O2 Delivery O2 Flow Rate FiO2 08/14/16 06:00 103 23 119/61 100 Ventilator 08/14/16 04:00 99.7 99.7 Physical Exam PHYSICAL EXAM GENERAL: NAD, Alert, appears comfortable HEENT: PERRL, OC/OP- poor dentition NECK: Supple, no JVD, no LN, trach LUNGS: Clear HEART: S1S2, no gallop, no murmur ABD: Soft, NT, no organomegaly, no rebound. PEG clean EXT: 1 to 2 edema, no cyanosis MD PHYSICIAN DERMATOLOGIST: Alert, no focal neurologic deficit SKIN: No rash IV: PICC LUE Labs Lab Laboratory Tests Test 08/13/16 08:00 08/13/16 16:40 08/14/16 06:00 O2 Saturation 98% (92-99) Arterial Blood pH 7.45 (7.35-7.45) Arterial Blood pCO2 at Patient Temp 33mmHg (35-46) Arterial Blood pO2 at Patient Temp 118mmHg (75-108) Arterial Blood HCO3 22mmol/L (21-28) Arterial Blood Base Excess -2mmol/L (-3-3) FiO2 35 Albumin 0.9g/dL (3.4-5.0) White Blood Count 9.5x10^3/uL (4.0-11.0) Red Blood Count 2.99x10^6/uL (3.50-5.40) Hemoglobin 8.9g/dL (12.0-15.5) Hematocrit 25.9% (36.0-47.0) Mean Corpuscular Volume 87fL (79-100) Mean Corpuscular Hemoglobin 30pg (25-35) Mean Corpuscular Hemoglobin Concent 34g/dL (31-37) Red Cell Distribution Width 15.9% (11.5-14.5) Platelet Count 163x10^3/uL (140-400) Neutrophils (%) (Auto) 80% (31-73) Lymphocytes (%) (Auto) 10% (24-48) Monocytes (%) (Auto) 9% (0-9) Eosinophils (%) (Auto) 1% (0-3) Basophils (%) (Auto) 1% (0-3) Neutrophils # (Auto) 7.6x10^3uL (1.8-7.7) Lymphocytes # (Auto) 1.0x10^3/uL (1.0-4.8) Monocytes # (Auto) 0.8x10^3/uL (0.0-1.1) Eosinophils # (Auto) 0.1x10^3/uL (0.0-0.7) Basophils # (Auto) 0.1x10^3/uL (0.0-0.2) Sodium Level 134mmol/L (136-145) Potassium Level 2.9mmol/L (3.5-5.1) Chloride Level 102mmol/L (98-107) Carbon Dioxide Level 22mmol/L (21-32) Anion Gap 10 (6-14) Blood Urea Nitrogen 15mg/dL (7-20) Creatinine 0.8mg/dL (0.6-1.0) Estimated GFR (Cockcroft-Gault) 78.7 Glucose Level 93mg/dL (70-99) Calcium Level 7.4mg/dL (8.5-10.1) Objective Assessment Fever - better S/p Trach/PEG 08/13 Acute anemia 2 units PRBCs 08/06. 08/11 s/p PRBC 1 unit. ? etiology Acute Resp failure - Intubated ? developing ARDS. S/p Bronch 08/08. thick plugs. MSSA. CT 08/09 reviewed MSSA 08/01 sepsis - repeat 08/05+ MSSA. cult 08/07 +. 08/09 neg so far ESR >140 & CRP 301.0 ? reactive Hep C IV drug use. Right-sided bacterial endocarditis. Repeat ECHO smaller veg on TV 08/09 -TTE. 3.0 x 2.0cm mobile mass TV - NGTD, 08/01 ([facility]). Multiple pulmonary nodules Ileus Renal insufficiency. Severe thrombocytopenia. Leukocytosis. Hepatosplenomegaly on CT Plan Plan of Care Continue Zyvox wean soon D/c Zosyn/Melissa added 08/11. back to Nafcillin F/u labs Supportive care Cefepime/Dapto 08/02-08/04 Nafcillin 08/04- 08/09 Zosyn/Zyvox 08/09- to date Critically ill KAYLYNN SHAY MD Aug 14, 2016 07:33
--- NOTE | 2016-08-14 07:46 | RAD ---
Portable chest, 08/14/2016: History: Respiratory failure Comparison is made to yesterday's study. The patient is rotated to the left. A tracheostomy tube has been inserted in satisfactory position. A left PICC extends into the right atrium. The NG tube has been removed. The heart appears to be within normal limits in size. There are worsening pulmonary infiltrates with loss of vascular margination. The underlying cavitary pulmonary nodules are less clearly defined. There are moderate hazy bibasilar opacities compatible with a moderate volume of pleural fluid. This appears to have increased, particularly on the right, over the last 2 days. IMPRESSION: 1. A tracheostomy tube and a left PICC remain in place as described above. 2. Increasing pulmonary infiltrates with loss of vascular margination suggesting a combination of pulmonary edema and pneumonia, with moderate-sized bilateral pleural effusions.
[2016-08-14 08:12] LABS: HCO3 ABG 17 mmol/L (21-28); PCO2 ABG 25 mmHg (35-46); PH ABG 7.46 (7.35-7.45); PO2 ABG 97 mmHg (75-108); SAT O2 ABG 97 % (92-99)
[2016-08-14] MEDS: IPRATRPIUM/ALBUTEROL 0.5/2.5MG 3 ML NEBU. NEB SCH ×4 (08:18→20:10)
[2016-08-14] MEDS: BUDESONIDE 0.5 MG/2 ML NEBU. NEB SCH ×2 (08:18→20:10)
[2016-08-14 08:26] LABS: FIO2 ABG 35
[2016-08-14] MEDS: POTASSIUM CHLORIDE 20MEQ 50 ML IV SCH ×2 (08:32→10:46)
[2016-08-14] MEDS: NYSTATIN TOPICAL POWDER 15GM BOTTLE. TP SCH ×2 (10:45→20:50)
[2016-08-14] MEDS: IV 1/2 NORMAL SALINE 1,000 ML IV SCH (10:45)
[2016-08-14] MEDS: FAMOTIDINE 20 MG/2 ML VIAL IVP SCH ×2 (10:46→20:51)
[2016-08-14] MEDS: NAFCILLIN 2 GM in IV NORMAL SALINE 100ML 100 ML IV SCH ×4 (10:46→20:51)
[2016-08-14] MEDS: CHLORHEXIDINE 0.12% 15 ML MOUTHWASH. MM SCH ×2 (10:46→20:51)
--- NOTE | 2016-08-14 10:48 | PDOC ---
Objective: Objective: Per RN - no issues w/ PEG, plans to start tube feeds today, waking up a little, smear of stool earlier. Vital Signs: Vital Signs Date Time Temp Pulse Resp B/P Pulse Ox O2 Delivery O2 Flow Rate FiO2 08/14/16 10:17 100 Ventilator 08/14/16 08:33 22 08/14/16 06:00 103 119/61 08/14/16 04:00 99.7 99.7 Labs: Laboratory Tests Test 08/13/16 16:40 08/14/16 06:00 08/14/16 08:03 Albumin 0.9g/dL White Blood Count 9.5x10^3/uL Red Blood Count 2.99x10^6/uL Hemoglobin 8.9g/dL Hematocrit 25.9% Mean Corpuscular Volume 87fL Mean Corpuscular Hemoglobin 30pg Mean Corpuscular Hemoglobin Concent 34g/dL Red Cell Distribution Width 15.9% Platelet Count 163x10^3/uL Neutrophils (%) (Auto) 80% Lymphocytes (%) (Auto) 10% Monocytes (%) (Auto) 9% Eosinophils (%) (Auto) 1% Basophils (%) (Auto) 1% Neutrophils # (Auto) 7.6x10^3uL Lymphocytes # (Auto) 1.0x10^3/uL Monocytes # (Auto) 0.8x10^3/uL Eosinophils # (Auto) 0.1x10^3/uL Basophils # (Auto) 0.1x10^3/uL Sodium Level 134mmol/L Potassium Level 2.9mmol/L Chloride Level 102mmol/L Carbon Dioxide Level 22mmol/L Anion Gap 10 Blood Urea Nitrogen 15mg/dL Creatinine 0.8mg/dL Estimated GFR (Cockcroft-Gault) 78.7 Glucose Level 93mg/dL Calcium Level 7.4mg/dL O2 Saturation 97% Arterial Blood pH 7.46 Arterial Blood pCO2 at Patient Temp 25mmHg Arterial Blood pO2 at Patient Temp 97mmHg Arterial Blood HCO3 17mmol/L Arterial Blood Base Excess -6mmol/L FiO2 35 Imaging: EGD/PEG 08/13/16: E--No varices. Tube-induced erosions/reflux distally. G--No varices. NG-induced erosions, antrum. D--Normal to distal bulb. --20F pull-type PEG placed uneventfully. Wound up more lateral than typical, but where the "window" was. IMP: Tube-induced lesions. Successful PEG. CXR 08/14/16 IMPRESSION: 1. A tracheostomy tube and a left PICC remain in place as described above. 2. Increasing pulmonary infiltrates with loss of vascular margination suggesting a combination of pulmonary edema and pneumonia, with moderate-sized bilateral pleural effusions. PE: GEN: trach LUNGS: clear anteriorly HEART: RRR ABD: RUQ firmness, PEG looks good, removed gauze NEURO/PSYCH: eyes open A/P: Resp failure -now w/ trach -pleural effusions PEG placed 08/13/16, Hep C, anemia -on Pepcid -Hgb improved/stable, plt improved -hepatomegaly Hypokalemia -per primary -- Agree w/ starting tube feeds today. ORQUIDEA ELIZABETH Aug 14, 2016 10:48
--- NOTE | 2016-08-14 13:37 | PDOC ---
PULMONARY PROGRESS NOTES Subjective s/p trach no distress Vitals Vital Signs Date Time Temp Pulse Resp B/P Pulse Ox O2 Delivery O2 Flow Rate FiO2 08/14/16 12:09 100 Ventilator 08/14/16 08:33 22 08/14/16 06:00 103 119/61 08/14/16 04:00 99.7 99.7 Lungs: Clear, Other Cardiovascular: S1, S2, Other Abdomen: Soft, Non-tender, Other (hepatomegaly) Extremities: Other (edema) Skin: Warm Labs Laboratory Tests Test 08/12/16 18:15 08/13/16 05:45 08/13/16 08:00 08/13/16 16:40 Prothrombin Time 16.2SEC (11.7-14.0) Prothromb Time International Ratio 1.4 (0.8-1.1) Sodium Level 136mmol/L (136-145) Potassium Level 2.9mmol/L (3.5-5.1) Chloride Level 103mmol/L (98-107) Carbon Dioxide Level 24mmol/L (21-32) Anion Gap 9 (6-14) Blood Urea Nitrogen 18mg/dL (7-20) Creatinine 0.8mg/dL (0.6-1.0) Estimated GFR (Cockcroft-Gault) 78.7 Glucose Level 98mg/dL (70-99) Calcium Level 7.2mg/dL (8.5-10.1) O2 Saturation 98% (92-99) Arterial Blood pH 7.45 (7.35-7.45) Arterial Blood pCO2 at Patient Temp 33mmHg (35-46) Arterial Blood pO2 at Patient Temp 118mmHg (75-108) Arterial Blood HCO3 22mmol/L (21-28) Arterial Blood Base Excess -2mmol/L (-3-3) FiO2 35 Albumin 0.9g/dL (3.4-5.0) Test 08/14/16 06:00 08/14/16 08:03 White Blood Count 9.5x10^3/uL (4.0-11.0) Red Blood Count 2.99x10^6/uL (3.50-5.40) Hemoglobin 8.9g/dL (12.0-15.5) Hematocrit 25.9% (36.0-47.0) Mean Corpuscular Volume 87fL (79-100) Mean Corpuscular Hemoglobin 30pg (25-35) Mean Corpuscular Hemoglobin Concent 34g/dL (31-37) Red Cell Distribution Width 15.9% (11.5-14.5) Platelet Count 163x10^3/uL (140-400) Neutrophils (%) (Auto) 80% (31-73) Lymphocytes (%) (Auto) 10% (24-48) Monocytes (%) (Auto) 9% (0-9) Eosinophils (%) (Auto) 1% (0-3) Basophils (%) (Auto) 1% (0-3) Neutrophils # (Auto) 7.6x10^3uL (1.8-7.7) Lymphocytes # (Auto) 1.0x10^3/uL (1.0-4.8) Monocytes # (Auto) 0.8x10^3/uL (0.0-1.1) Eosinophils # (Auto) 0.1x10^3/uL (0.0-0.7) Basophils # (Auto) 0.1x10^3/uL (0.0-0.2) Sodium Level 134mmol/L (136-145) Potassium Level 2.9mmol/L (3.5-5.1) Chloride Level 102mmol/L (98-107) Carbon Dioxide Level 22mmol/L (21-32) Anion Gap 10 (6-14) Blood Urea Nitrogen 15mg/dL (7-20) Creatinine 0.8mg/dL (0.6-1.0) Estimated GFR (Cockcroft-Gault) 78.7 Glucose Level 93mg/dL (70-99) Calcium Level 7.4mg/dL (8.5-10.1) O2 Saturation 97% (92-99) Arterial Blood pH 7.46 (7.35-7.45) Arterial Blood pCO2 at Patient Temp 25mmHg (35-46) Arterial Blood pO2 at Patient Temp 97mmHg (75-108) Arterial Blood HCO3 17mmol/L (21-28) Arterial Blood Base Excess -6mmol/L (-3-3) FiO2 35 Laboratory Tests Test 08/13/16 16:40 08/14/16 06:00 08/14/16 08:03 Albumin 0.9g/dL (3.4-5.0) White Blood Count 9.5x10^3/uL (4.0-11.0) Red Blood Count 2.99x10^6/uL (3.50-5.40) Hemoglobin 8.9g/dL (12.0-15.5) Hematocrit 25.9% (36.0-47.0) Mean Corpuscular Volume 87fL (79-100) Mean Corpuscular Hemoglobin 30pg (25-35) Mean Corpuscular Hemoglobin Concent 34g/dL (31-37) Red Cell Distribution Width 15.9% (11.5-14.5) Platelet Count 163x10^3/uL (140-400) Neutrophils (%) (Auto) 80% (31-73) Lymphocytes (%) (Auto) 10% (24-48) Monocytes (%) (Auto) 9% (0-9) Eosinophils (%) (Auto) 1% (0-3) Basophils (%) (Auto) 1% (0-3) Neutrophils # (Auto) 7.6x10^3uL (1.8-7.7) Lymphocytes # (Auto) 1.0x10^3/uL (1.0-4.8) Monocytes # (Auto) 0.8x10^3/uL (0.0-1.1) Eosinophils # (Auto) 0.1x10^3/uL (0.0-0.7) Basophils # (Auto) 0.1x10^3/uL (0.0-0.2) Sodium Level 134mmol/L (136-145) Potassium Level 2.9mmol/L (3.5-5.1) Chloride Level 102mmol/L (98-107) Carbon Dioxide Level 22mmol/L (21-32) Anion Gap 10 (6-14) Blood Urea Nitrogen 15mg/dL (7-20) Creatinine 0.8mg/dL (0.6-1.0) Estimated GFR (Cockcroft-Gault) 78.7 Glucose Level 93mg/dL (70-99) Calcium Level 7.4mg/dL (8.5-10.1) O2 Saturation 97% (92-99) Arterial Blood pH 7.46 (7.35-7.45) Arterial Blood pCO2 at Patient Temp 25mmHg (35-46) Arterial Blood pO2 at Patient Temp 97mmHg (75-108) Arterial Blood HCO3 17mmol/L (21-28) Arterial Blood Base Excess -6mmol/L (-3-3) FiO2 35 Medications Active Scripts Medications Dose Route/Sig Days Date Category No Known Medications Prior To Admisstion (Info) Each 1 Each 08/06/16 Reported Impression . 1. Acute hypoxemic respiratory failure, multifactorial in etiology. 2. Continues to fail CPAP. will need Trach 3. Bilateral pulmonary nodules with cavitation, due to septic emboli. 4. Endocarditis. right sided, improving vegetations 5. ? chronic obstructive pulmonary disease. 6. Leukocytosis./fever 7. Anemia. 8. Thrombocytopenia. off lovenox 10. Intravenous drug abuse. 11. Tobacco habituation. 12. MSSA septicemia/pneumonia/ CHF today Plan . AC mode s/p trach may need to change sedation to Precedex ct head/ chest reviewed Bronch with MSSA, antibiotics per ID ANGIE CARBAJAL MD Aug 14, 2016 13:37
--- NOTE | 2016-08-14 15:20 | PDOC ---
PROGRESS NOTES Chief Complaint Chief Complaint cc: Severe pain in chest associated with breathing and abdominal pain -Endocarditis -Resp failure on Vent - polysubstance abuse -Hep C, right -rotator cuff repair -Tobacco use -20lb weight loss over the last couple of months -Renal insufficiency -Pneumonia -Septic emboli History of Present Illness History of Present Illness Ms. Escamilla was in bed on the ventilator when we saw her. She had a tracheostomy tube and PEG tube in place. Her ventilator settings were at A/C / f 22 / VT 450 / 35 FiO2%. Her SpO2% was at 99, and her respiratory rate was 28. We spoke with the nurse about the case. She had her PEG feedings restarted, and she appeared to be tolerating them well. She was awake and able to affirm or deny our questions by nodding. She had SCD's in place. Her pupils were reactive. Vitals Vitals Vital Signs Date Time Temp Pulse Resp B/P Pulse Ox O2 Delivery O2 Flow Rate FiO2 08/14/16 13:15 100 Ventilator 08/14/16 13:00 110 31 115/66 08/14/16 12:00 99.8 99.8 Physical Exam General: Alert, Cooperative Heart: Regular rate, Normal S1, Normal S2 Lungs: Clear, Other (No chest retractions were present.) Abdomen: Normal bowel sounds, No tenderness Extremities: No cyanosis, Other (Edema noted bilateral lower extremities) Skin: No rashes, Other (Her legs felt warm bilaterally. ) Labs LABS Laboratory Tests Test 08/13/16 16:40 08/14/16 06:00 08/14/16 08:03 Albumin 0.9g/dL (3.4-5.0) White Blood Count 9.5x10^3/uL (4.0-11.0) Red Blood Count 2.99x10^6/uL (3.50-5.40) Hemoglobin 8.9g/dL (12.0-15.5) Hematocrit 25.9% (36.0-47.0) Mean Corpuscular Volume 87fL (79-100) Mean Corpuscular Hemoglobin 30pg (25-35) Mean Corpuscular Hemoglobin Concent 34g/dL (31-37) Red Cell Distribution Width 15.9% (11.5-14.5) Platelet Count 163x10^3/uL (140-400) Neutrophils (%) (Auto) 80% (31-73) Lymphocytes (%) (Auto) 10% (24-48) Monocytes (%) (Auto) 9% (0-9) Eosinophils (%) (Auto) 1% (0-3) Basophils (%) (Auto) 1% (0-3) Neutrophils # (Auto) 7.6x10^3uL (1.8-7.7) Lymphocytes # (Auto) 1.0x10^3/uL (1.0-4.8) Monocytes # (Auto) 0.8x10^3/uL (0.0-1.1) Eosinophils # (Auto) 0.1x10^3/uL (0.0-0.7) Basophils # (Auto) 0.1x10^3/uL (0.0-0.2) Sodium Level 134mmol/L (136-145) Potassium Level 2.9mmol/L (3.5-5.1) Chloride Level 102mmol/L (98-107) Carbon Dioxide Level 22mmol/L (21-32) Anion Gap 10 (6-14) Blood Urea Nitrogen 15mg/dL (7-20) Creatinine 0.8mg/dL (0.6-1.0) Estimated GFR (Cockcroft-Gault) 78.7 Glucose Level 93mg/dL (70-99) Calcium Level 7.4mg/dL (8.5-10.1) O2 Saturation 97% (92-99) Arterial Blood pH 7.46 (7.35-7.45) Arterial Blood pCO2 at Patient Temp 25mmHg (35-46) Arterial Blood pO2 at Patient Temp 97mmHg (75-108) Arterial Blood HCO3 17mmol/L (21-28) Arterial Blood Base Excess -6mmol/L (-3-3) FiO2 35 Review of Systems Review of Systems She reports she was feeling sick today. She has not had any dizziness or lightheadedness. Assessment and Plan Assessmemt and Plan Assessment: Ms. Escamilla presented with severe pain in the chest that was associated with breathing and abdominal pain. -Endocarditis -Resp failure on Vent - polysubstance abuse -Hep C, right -rotator cuff repair -Tobacco use -20lb weight loss over the last couple of months -Renal insufficiency -Pneumonia -Septic emboli Plan: 1. Continue to monitor anemia 2. Potassium levels were low - consider KCl replacement 3. Recheck rest of labs 4. PT/OT 5. Determine possibility of LTAC placement 6. Consider replacement of calcium 7. Continue pain management medication with acetaminophen and fentanyl 8. Continue antibiotics nafcillin and linezolid 9. Continue mouthrinse chlorhexadine 10. Continue famotidine per GI 11. Continue breathing treatments with albuterol/ipratropium and budesonide 12. Appreciate consultation from surgery, cardiothoracic surgery, pulmonology, ID, and gastroenterology Prognosis is guarded Problems: Comment Review of Relevant I have reviewed the following items shanta (where applicable) has been applied. Labs Laboratory Tests Test 08/12/16 18:15 08/13/16 05:45 08/13/16 08:00 08/13/16 16:40 Prothrombin Time 16.2SEC (11.7-14.0) Prothromb Time International Ratio 1.4 (0.8-1.1) Sodium Level 136mmol/L (136-145) Potassium Level 2.9mmol/L (3.5-5.1) Chloride Level 103mmol/L (98-107) Carbon Dioxide Level 24mmol/L (21-32) Anion Gap 9 (6-14) Blood Urea Nitrogen 18mg/dL (7-20) Creatinine 0.8mg/dL (0.6-1.0) Estimated GFR (Cockcroft-Gault) 78.7 Glucose Level 98mg/dL (70-99) Calcium Level 7.2mg/dL (8.5-10.1) O2 Saturation 98% (92-99) Arterial Blood pH 7.45 (7.35-7.45) Arterial Blood pCO2 at Patient Temp 33mmHg (35-46) Arterial Blood pO2 at Patient Temp 118mmHg (75-108) Arterial Blood HCO3 22mmol/L (21-28) Arterial Blood Base Excess -2mmol/L (-3-3) FiO2 35 Albumin 0.9g/dL (3.4-5.0) Test 08/14/16 06:00 08/14/16 08:03 White Blood Count 9.5x10^3/uL (4.0-11.0) Red Blood Count 2.99x10^6/uL (3.50-5.40) Hemoglobin 8.9g/dL (12.0-15.5) Hematocrit 25.9% (36.0-47.0) Mean Corpuscular Volume 87fL (79-100) Mean Corpuscular Hemoglobin 30pg (25-35) Mean Corpuscular Hemoglobin Concent 34g/dL (31-37) Red Cell Distribution Width 15.9% (11.5-14.5) Platelet Count 163x10^3/uL (140-400) Neutrophils (%) (Auto) 80% (31-73) Lymphocytes (%) (Auto) 10% (24-48) Monocytes (%) (Auto) 9% (0-9) Eosinophils (%) (Auto) 1% (0-3) Basophils (%) (Auto) 1% (0-3) Neutrophils # (Auto) 7.6x10^3uL (1.8-7.7) Lymphocytes # (Auto) 1.0x10^3/uL (1.0-4.8) Monocytes # (Auto) 0.8x10^3/uL (0.0-1.1) Eosinophils # (Auto) 0.1x10^3/uL (0.0-0.7) Basophils # (Auto) 0.1x10^3/uL (0.0-0.2) Sodium Level 134mmol/L (136-145) Potassium Level 2.9mmol/L (3.5-5.1) Chloride Level 102mmol/L (98-107) Carbon Dioxide Level 22mmol/L (21-32) Anion Gap 10 (6-14) Blood Urea Nitrogen 15mg/dL (7-20) Creatinine 0.8mg/dL (0.6-1.0) Estimated GFR (Cockcroft-Gault) 78.7 Glucose Level 93mg/dL (70-99) Calcium Level 7.4mg/dL (8.5-10.1) O2 Saturation 97% (92-99) Arterial Blood pH 7.46 (7.35-7.45) Arterial Blood pCO2 at Patient Temp 25mmHg (35-46) Arterial Blood pO2 at Patient Temp 97mmHg (75-108) Arterial Blood HCO3 17mmol/L (21-28) Arterial Blood Base Excess -6mmol/L (-3-3) FiO2 35 Laboratory Tests Test 08/13/16 16:40 08/14/16 06:00 08/14/16 08:03 Albumin 0.9g/dL (3.4-5.0) White Blood Count 9.5x10^3/uL (4.0-11.0) Red Blood Count 2.99x10^6/uL (3.50-5.40) Hemoglobin 8.9g/dL (12.0-15.5) Hematocrit 25.9% (36.0-47.0) Mean Corpuscular Volume 87fL (79-100) Mean Corpuscular Hemoglobin 30pg (25-35) Mean Corpuscular Hemoglobin Concent 34g/dL (31-37) Red Cell Distribution Width 15.9% (11.5-14.5) Platelet Count 163x10^3/uL (140-400) Neutrophils (%) (Auto) 80% (31-73) Lymphocytes (%) (Auto) 10% (24-48) Monocytes (%) (Auto) 9% (0-9) Eosinophils (%) (Auto) 1% (0-3) Basophils (%) (Auto) 1% (0-3) Neutrophils # (Auto) 7.6x10^3uL (1.8-7.7) Lymphocytes # (Auto) 1.0x10^3/uL (1.0-4.8) Monocytes # (Auto) 0.8x10^3/uL (0.0-1.1) Eosinophils # (Auto) 0.1x10^3/uL (0.0-0.7) Basophils # (Auto) 0.1x10^3/uL (0.0-0.2) Sodium Level 134mmol/L (136-145) Potassium Level 2.9mmol/L (3.5-5.1) Chloride Level 102mmol/L (98-107) Carbon Dioxide Level 22mmol/L (21-32) Anion Gap 10 (6-14) Blood Urea Nitrogen 15mg/dL (7-20) Creatinine 0.8mg/dL (0.6-1.0) Estimated GFR (Cockcroft-Gault) 78.7 Glucose Level 93mg/dL (70-99) Calcium Level 7.4mg/dL (8.5-10.1) O2 Saturation 97% (92-99) Arterial Blood pH 7.46 (7.35-7.45) Arterial Blood pCO2 at Patient Temp 25mmHg (35-46) Arterial Blood pO2 at Patient Temp 97mmHg (75-108) Arterial Blood HCO3 17mmol/L (21-28) Arterial Blood Base Excess -6mmol/L (-3-3) FiO2 35 Microbiology 08/09/16 Blood Culture - Final, Complete NO GROWTH AFTER 5 DAYS 08/08/16 AFB Specimen Processing Tissue - Final, Resulted 08/08/16 Acid Fast Bacilli Culture, Resulted Pending 08/08/16 Gram Stain - Final, Resulted 08/08/16 Fungal Culture, Resulted Pending 08/08/16 Fungal Culture Result 1, Resulted Pending Medications Current Medications Amino Acids/ Glycerin/ Electrolytes (Procalamine) 1,000 ml @ 100 mls/hr Q10H IV Last administered on 08/05/16 02:40; Start 08/02/16 at 03:00; Stop at 08:50; Status DC Morphine Sulfate 2 mg 2 mg PRN Q2HR PRN IV SEVERE PAIN Last administered on 11:59; Start 08/02/16 at 02:30; Stop 08/02/16 at 13:28; Status DC Daptomycin 220 mg/ Sodium Chloride 50 ml @ 100 mls/hr Q24H IV ; Start 08/02/16 at 09:15; Stop 08/02/16 at 15:58; Status DC Cefepime HCl 1 gm/ Sodium Chloride 50 ml @ 100 mls/hr Q12HR IV Last administered on 08/04/16 08:10; Start 08/02/16 at 10:00; Stop 08/04/16 at 10:33 ; Status DC Daptomycin/Sodium Chloride (Cubicin/Iv Sodium Chloride 0.9% 50ml) 50 ml @ 100 mls/hr ONCE ONCE IV ; Start 08/02/16 at 10:00; Stop 08/02/16 at 10:29; Status Cancel Potassium Chloride 40 meq 40 meq 1X ONCE PO Last administered on 08/02/16 10: 17; Start 08/02/16 at 09:45; Stop 08/02/16 at 09:46; Status DC Daptomycin/Sodium Chloride (Cubicin/Iv Sodium Chloride 0.9% 50ml) 50 ml @ 100 mls/hr Q24H IV Last administered on 08/03/16 09:43; Start 08/02/16 at 10:15; Stop 08/03/16 at 10:29; Status DC Potassium Chloride (Klor-Con) 40 meq 1X ONCE PO Last administered on 12:57; Start 08/02/16 at 12:30; Stop 08/02/16 at 12:36; Status DC Morphine Sulfate 5 mg PRN Q2HRS PRN IV MODERATE TO SEVERE PAIN Last administered on 08/04/16 08:16; Start 08/02/16 at 13:30 Morphine Sulfate 8 mg PRN Q2HRS PRN IV MODERATE TO SEVERE PAIN Last administered on 08/04/16 14:58; Start 08/02/16 at 13:30 Acetaminophen 650 mg 650 mg PRN Q6HRS PRN PO TEMP GREATER THAN 100.4 Last administered on 08/10/16 00:18; Start 08/02/16 at 14:45 Lactated Ringer's 1,000 ml @ 50 mls/hr Q20H IV ; Start 08/05/16 at 07:00; Stop 08/05/16 at 18:13; Status DC Daptomycin/Sodium Chloride (Cubicin/Iv Sodium Chloride 0.9% 50ml) 50 ml @ 100 mls/hr Q24H IV ; Start 08/03/16 at 11:00; Status Cancel Potassium Chloride (Klor-Con) 40 meq 1X ONCE PO Last administered on 17:41; Start 08/02/16 at 17:15; Stop 08/02/16 at 17:18; Status DC Potassium Chloride (Klor-Con) 40 meq BIDWMEALS PO ; Start 08/03/16 at 08:00; Stop 08/03/16 at 11:08; Status DC Morphine Sulfate 5 mg 1X ONCE IV Last administered on 08/02/16 21:45; Start 08/02/16 at 21:30; Stop 08/02/16 at 21:33; Status DC Lorazepam (Ativan) 1 mg 1X ONCE IV Last administered on 08/02/16 21:30; Start 08/02/16 at 21:30; Stop 08/02/16 at 21:33; Status DC Acetaminophen (Acetaminophen Supp) 650 mg PRN Q6HRS PRN ND MILD PAIN / TEMP Last administered on 08/13/16 03:13; Start 08/03/16 at 01:15 Albuterol/ Ipratropium (Duoneb) 3 ml RTQID NEB Last administered on 08/14/16 15:17; Start 08/03/16 at 08:00 Budesonide (Pulmicort) 0.5 mg RTBID NEB Last administered on 08/14/16 08:18; Start 08/03/16 at 08:00 Pantoprazole Sodium 40 mg 40 mg 1X ONCE IVP Last administered on 08/03/16 10: 06; Start 08/03/16 at 08:00; Stop 08/03/16 at 08:01; Status DC Daptomycin/Sodium Chloride (Cubicin/Iv Sodium Chloride 0.9% 50ml) 50 ml @ 100 mls/hr Q24H IV Last administered on 08/04/16 10:03; Start 08/04/16 at 10:00; Stop 08/04/16 at 10:33; Status DC Lorazepam (Ativan) 0.5 mg PRN Q6HRS PRN IV ANXIETY / AGITATION Last administered on 08/04/16 09:12; Start 08/03/16 at 11:15; Stop 08/07/16 at 11:02 ; Status DC Lorazepam (Ativan) 0.5 mg 1X ONCE IV Last administered on 08/04/16 10:00; Start 08/04/16 at 10:00; Stop 08/04/16 at 10:01; Status DC Morphine Sulfate 5 mg 1X ONCE IV Last administered on 08/04/16 10:00; Start 08/04/16 at 10:00; Stop 08/04/16 at 10:01; Status DC Lorazepam 0.5 mg 0.5 mg PRN Q4HRS PRN IV ANXIETY / AGITATION Last administered on 08/10/16 22:28; Start 08/04/16 at 10:00 Nafcillin Sodium 2 gm/Sodium Chloride 100 ml @ 200 mls/hr Q4HRS IV Last administered on 08/09/16 10:10; Start 08/04/16 at 12:00; Stop 08/09/16 at 11:49 ; Status DC Propofol (Diprivan) 100 ml @ As Directed STK-MED ONCE IV ; Start 08/04/16 at 16 :10; Stop 08/04/16 at 16:11; Status DC Succinylcholine Chloride (Anectine) 200 mg STK-MED ONCE .ROUTE ; Start 08/04/16 at 16:14; Stop 08/04/16 at 16:15; Status DC Succinylcholine Chloride 200 mg 200 mg 1X ONCE IV ; Start 08/04/16 at 16:45; Stop 08/04/16 at 16:46; Status DC Propofol (Diprivan) 100 ml @ 0 mls/hr CONT PRN IV SEE I/O RECORD Last administered on 08/14/16 14:30; Start 08/04/16 at 16:45 Lorazepam (Ativan) 0.5 mg 1X ONCE IV Last administered on 08/04/16 16:45; Start 08/04/16 at 16:45; Stop 08/04/16 at 16:46; Status DC Morphine Sulfate 5 mg 5 mg 1X ONCE IV Last administered on 08/04/16 16:44; Start 08/04/16 at 16:45; Stop 08/04/16 at 16:46; Status DC Fentanyl Citrate (Fentanyl 600 Mcg/30 ml [employer]IFICIAL [employer]) 30 ml @ 0 mls/hr CONT PRN IV PROTOCOL Last administered on 08/14/16 07:42; Start 08/04/16 at 16:45 Chlorhexidine Gluconate (Peridex) 15 ml BID MM Last administered on 08/14/16 10:46; Start 08/04/16 at 21:00 Famotidine 20 mg 20 mg BID IVP Last administered on 08/14/16 10:46; Start at 17:00 Sodium Chloride (Iv Sodium Chloride 0.9% 1000ml Bag) 1,000 ml @ 100 mls/hr Q10H IV Last administered on 08/07/16 04:35; Start 08/05/16 at 09:00; Stop at 08:59; Status DC Succinylcholine Chloride (Anectine) 200 mg STK-MED ONCE .ROUTE ; Start 08/04/16 at 16:00; Stop 08/05/16 at 12:32; Status DC Lorazepam (Ativan) 2 mg 1X ONCE IV Last administered on 08/05/16 20:43; Start 08/05/16 at 21:00; Stop 08/05/16 at 21:01; Status DC Furosemide (Lasix) 40 mg 1X PRN PRN IV blood transfusion Last administered on 14:17; Start 08/06/16 at 08:00; Stop 08/07/16 at 07:59; Status DC Sodium Bicarbonate 50 meq 1X ONCE IV Last administered on 08/06/16 14:06; Start 08/06/16 at 12:00; Stop 08/06/16 at 12:01; Status DC Calcium Chloride 1,000 mg STK-MED ONCE IV ; Start 08/04/16 at 12:00; Stop at 15:13; Status DC Epinephrine HCl (Epinephrine Syringe) 2 mg STK-MED ONCE .ROUTE ; Start 08/04/16 at 12:00; Stop 08/06/16 at 15:13; Status DC Sodium Bicarbonate 100 meq 100 meq STK-MED ONCE .ROUTE ; Start 08/04/16 at 12:00 ; Stop 08/06/16 at 15:13; Status DC Amino Acids/ Glycerin/ Electrolytes (Procalamine) 1,000 ml @ 100 mls/hr Q10H IV Last administered on 08/08/16 12:33; Start 08/07/16 at 10:00; Stop at 09:42; Status DC Enoxaparin Sodium (Lovenox 40mg Syringe) 40 mg Q24H SQ Last administered on 13:10; Start 08/07/16 at 13:00; Stop 08/10/16 at 10:43; Status DC Vecuronium [place] (Norcuron Bolus) 10 mg STK-MED ONCE IV ; Start 08/07/16 at 13 :56; Stop 08/07/16 at 13:57; Status DC Vecuronium [place] (Norcuron Bolus) 6 mg 1X ONCE IV Last administered on 14:06; Start 08/07/16 at 14:00; Stop 08/07/16 at 14:05; Status DC Sodium Bicarbonate 50 meq 1X ONCE IV Last administered on 08/08/16 11:46; Start 08/08/16 at 11:45; Stop 08/08/16 at 11:46; Status DC Nystatin 1 james 1 james BID TP Last administered on 08/14/16 10:45; Start at 21:00 Linezolid 300 ml @ 300 mls/hr Q12HR IV Last administered on 08/14/16 14:10; Start 08/09/16 at 09:00 Sodium Chloride 1,000 ml @ 50 mls/hr Q20H IV Last administered on 08/14/16 10 :45; Start 08/09/16 at 09:45 Sodium Bicarbonate/ Dextrose 1,150 ml @ 100 mls/hr 1X ONCE IV Last administered on 08/09/16 12:25; Start 08/09/16 at 11:30; Stop 08/09/16 at 22:59 ; Status DC Piperacillin Sod/ Tazobactam Sod 1 each 1 each PRN DAILY PRN MC SEE COMMENTS; Start 08/09/16 at 12:00; Stop 08/14/16 at 07:40; Status DC Piperacillin Sod/ Tazobactam Sod/ Sodium Chloride (Zosyn/Iv Sodium Chloride 0.9 % 100ml) 100 ml @ 200 mls/hr Q6HRS IV Last administered on 08/14/16 05:58; Start 08/09/16 at 12:30; Stop 08/14/16 at 07:33; Status DC Vecuronium [place] 5 mg 5 mg PRN Q4HRS PRN IV INCREASED RESPIRATORY,NOT RELI Last administered on 08/11/16 02:56; Start 08/09/16 at 13:30 Potassium Chloride 50 ml @ 100 mls/hr Q1H IV ; Start 08/10/16 at 09:30; Stop at 10:59; Status Cancel Potassium Chloride (KCl Premix 10meq) 100 ml @ 100 mls/hr Q1H IV Last administered on 08/10/16 16:28; Start 08/10/16 at 10:30; Stop 08/10/16 at 14:29 ; Status DC Potassium Chloride 60 meq 60 meq 1X ONCE PEG Last administered on 08/10/16 11 :16; Start 08/10/16 at 11:00; Stop 08/10/16 at 11:01; Status DC Sodium Bicarbonate/ Dextrose 1,150 ml @ 100 mls/hr [id number] IV Last administered on 08/10/16 11:14; Start 08/10/16 at 11:00; Stop 08/10/16 at 22:29 ; Status DC Enoxaparin Sodium 40 mg 40 mg Q24H SQ ; Start 08/10/16 at 13:00; Stop 08/10/16 at 13:00; Status DC Micafungin Sodium/ Dextrose (Mycamine) 100 ml @ 100 mls/hr Q24H IV Last administered on 08/13/16 16:26; Start 08/11/16 at 16:00; Stop 08/14/16 at 07:33 ; Status DC Furosemide (Lasix) 40 mg 1X ONCE IVP Last administered on 08/12/16 08:38; Start 08/12/16 at 08:00; Stop 08/12/16 at 08:06; Status DC Morphine Sulfate 1 mg 1 mg PRN Q10MIN PRN IV SEVERE PAIN; Start 08/13/16 at 07: 00; Stop 08/14/16 at 06:59; Status DC Lactated Ringer's (Iv Lactated Ringers) 1,000 ml @ 0 mls/hr Q0M IV ; Start at 07:00; Stop 08/13/16 at 18:59; Status DC Lidocaine HCl 2 ml PRN 1X PRN ID PRIOR TO IV START; Start 08/13/16 at 07:00; Stop 08/14/16 at 06:59; Status DC Hydromorphone HCl (Dilaudid) 0.5 mg PRN Q10MIN PRN IV SEV PAIN, Second choice; Start 08/13/16 at 07:00; Stop 08/14/16 at 06:59; Status DC Prochlorperazine Edisylate (Compazine) 5 mg PACU PRN PRN IV NAUSEA, MRX1; Start 08/13/16 at 07:00; Stop 08/14/16 at 06:59; Status DC Morphine Sulfate 1 mg 1 mg PRN Q10MIN PRN IV SEVERE PAIN; Start 08/13/16 at 07: 00; Stop 08/14/16 at 06:59; Status DC Lactated Ringer's (Iv Lactated Ringers) 1,000 ml @ 0 mls/hr Q0M IV ; Start at 07:00; Stop 08/13/16 at 18:59; Status DC Lidocaine HCl 2 ml PRN 1X PRN ID PRIOR TO IV START; Start 08/13/16 at 07:00; Stop 08/14/16 at 06:59; Status DC Hydromorphone HCl (Dilaudid) 0.5 mg PRN Q10MIN PRN IV SEV PAIN, Second choice; Start 08/13/16 at 07:00; Stop 08/14/16 at 06:59; Status DC Prochlorperazine Edisylate 5 mg 5 mg PACU PRN PRN IV NAUSEA, MRX1; Start at 07:00; Stop 08/14/16 at 06:59; Status DC Potassium Chloride (KCl Premix 20meq) 50 ml @ 50 mls/hr Q1H IV Last administered on 08/13/16 07:57; Start 08/13/16 at 07:00; Stop 08/13/16 at 08:59 ; Status DC Rocuronium [place] 50 mg 50 mg STK-MED ONCE .ROUTE ; Start 08/13/16 at 12:50; Stop 08/13/16 at 12:51; Status DC Propofol (Diprivan) 20 ml @ As Directed STK-MED ONCE IV ; Start 08/13/16 at 12: 53; Stop 08/13/16 at 12:54; Status DC Sevoflurane 30 ml 30 ml STK-MED ONCE IH ; Start 08/13/16 at 14:04; Stop at 14:05; Status DC Albumin Human 250 ml @ 100 mls/hr 1X ONCE IV Last administered on 08/13/16 23:38; Start 08/13/16 at 18:00; Stop 08/13/16 at 20:29; Status DC Albumin Human 500 ml @ 100 mls/hr 1X ONCE IV Last administered on 08/13/16 18:15; Start 08/13/16 at 18:00; Stop 08/13/16 at 22:59; Status DC Potassium Chloride 50 ml @ 50 mls/hr Q1H IV Last administered on 08/14/16 10: 46; Start 08/14/16 at 08:00; Stop 08/14/16 at 09:59; Status DC Nafcillin Sodium/ Sodium Chloride (Iv Sodium Chloride 0.9% 100ml) 100 ml @ 200 mls/hr Q4HRS IV Last administered on 08/14/16t 10:46; Start 08/14/16 at 08:00 Enoxaparin Sodium (Lovenox 40mg Syringe) 40 mg Q24H SQ ; Start 08/14/16 at 12:00 Active Scripts Active Reported No Known Medications Prior To Admisstion (Info) Each 1 Each Vitals/I & O Vital Sign - Last 24 Hours 08/13/16 08/13/16 08/13/16 08/13/16 15:29 16:00 16:00 17:00 Temp 100.1 100.1 Pulse 96 94 Resp 23 B/P 88/49 87/46 Pulse Ox 100 100 100 O2 Delivery Ventilator Ventilator Mechanical Ventilator Ventilator 08/13/16 08/13/16 08/13/16 08/13/16 18:00 19:00 19:15 20:00 Temp 99.5 99.5 Pulse 102 98 102 Resp 24 22 22 25 B/P 104/55 101/53 93/53 Pulse Ox 100 100 100 100 O2 Delivery Ventilator Ventilator Ventilator Ventilator 08/13/16 08/13/16 08/13/16 08/13/16 20:00 20:01 21:00 22:00 Pulse 110 108 Resp 22 B/P 98/48 103/54 Pulse Ox 100 100 100 O2 Delivery Mechanical Ventilator Ventilator Ventilator Ventilator 08/13/16 08/13/16 08/14/16 08/14/16 23:00 23:10 00:00 00:00 Temp 99.7 99.7 Pulse 104 106 Resp 23 B/P 105/56 107/62 Pulse Ox 100 100 100 O2 Delivery Ventilator Ventilator Ventilator Mechanical Ventilator 08/14/16 08/14/16 08/14/16 08/14/16 01:00 01:08 01:23 02:00 Pulse 108 110 Resp 24 B/P 105/51 110/55 Pulse Ox 100 99 100 100 O2 Delivery Ventilator Ventilator Ventilator Ventilator 08/14/16 08/14/16 08/14/16 08/14/16 03:00 03:05 04:00 04:00 Temp 99.7 99.7 Pulse 104 105 Resp B/P 104/57 112/62 Pulse Ox 100 100 100 O2 Delivery Ventilator Ventilator Ventilator Mechanical Ventilator 08/14/16 08/14/16 08/14/16 08/14/16 05:00 05:10 06:00 07:00 Pulse 104 103 104 Resp 24 B/P 118/64 119/61 125/60 Pulse Ox 100 100 100 100 O2 Delivery Ventilator Ventilator Ventilator Ventilator 08/14/16 08/14/16 08/14/16 08/14/16 07:42 08:00 08:00 08:18 Temp 99.7 99.7 Pulse 104 Resp 26 B/P 110/58 Pulse Ox 100 100 100 O2 Delivery Ventilator Ventilator Mechanical Ventilator Ventilator 08/14/16 08/14/16 08/14/16 08/14/16 08:33 09:00 10:00 10:17 Pulse 106 108 Resp 27 B/P 118/59 105/61 Pulse Ox 100 100 100 100 O2 Delivery Ventilator Ventilator Ventilator Ventilator 08/14/16 08/14/16 08/14/16 08/14/16 11:00 12:00 12:00 12:09 Temp 99.8 99.8 Pulse 102 106 Resp 27 B/P 105/56 112/66 Pulse Ox 100 99 100 O2 Delivery Ventilator Mechanical Ventilator Ventilator Ventilator 08/14/16 08/14/16 13:00 13:15 Pulse 110 Resp 31 B/P 115/66 Pulse Ox 99 100 O2 Delivery Ventilator Ventilator Intake and Output 08/13/16 08/13/16 08/14/16 15:00 23:00 07:00 Intake Total 500 ml 816.5 ml 2492 ml Output Total 330 ml 515 ml 370 ml Balance 170 ml 301.5 ml 2122 ml Nutrition Consultation Dietary Evaluation: Recommendations by RD: PPN/TPN Comments: Pt is s/p PEG placement 08/14 Rec. resume the TF's with Fibersource HN, goal rate 55 ml/hr Start at 25 ml/hr, increase to goal rate of 55 ml/hr after 8hrs Flushes 150 cc q4h if no IVF's Expected Outcomes/Goals: tolerate the TF's via PEG at goal rate meet 75% estimated nutrition needs Interpretation of weight loss: >7.5% in 3 months Malnutrition Findings: Food and Nutrition Intake (Mod: <75% est energy req 7days Body Fat Depletion (Non Severe: Mild Depletion Reduced Head Of Housekeeping Strength: N/A Reduced Head Of Housekeeping Strength (Non-Sev: N/A Malnutrition related to morbid: No Weight Status: Overweight Fluid Accumulation (N/A): N/A CODY BLACK III DO Aug 14, 2016 15:20
[2016-08-14] MEDS: ENOXAPARIN 40 MG/0.4 ML SYRINGE. SQ SCH (15:28)
[2016-08-15] VITALS (24 sets, daily range): BP systolic 82–105; BP diastolic 45–62
[2016-08-15] MEDS: PROPOFOL 100 ML IV PRN ×3 (01:32→20:09)
[2016-08-15 05:06] LABS: BASO # 0.1 x10^3/uL (0.0-0.2); BASO % 1 % (0-3); EOS % 3 % (0-3); HEMATOCRIT 22.4 % (36.0-47.0); HEMOGLOBIN 7.4 g/dL (12.0-15.5); LYMPH # 1.1 x10^3/uL (1.0-4.8); LYMPH % 8 % (24-48); MEAN CORPUSCULAR HEMOGLOBIN 29 pg (25-35); MEAN CORPUSCULAR HGB CONC 33 g/dL (31-37); MEAN CORPUSCULAR VOLUME 88 fL (79-100); MONO % 9 % (0-9); NEUT % 79 % (31-73); PLATELET COUNT 227 x10^3/uL (140-400); RED BLOOD COUNT 2.54 x10^6/uL (3.50-5.40); RED CELL DISTRIBUTION WIDTH 16.1 % (11.5-14.5)
[2016-08-15] MEDS: NAFCILLIN 2 GM in IV NORMAL SALINE 100ML 100 ML IV SCH ×7 (05:14→20:09)
[2016-08-15 05:19] LABS: CALCIUM 7.5 mg/dL (8.5-10.1); CREATININE 0.8 mg/dL (0.6-1.0); GFR 78.7; POTASSIUM 3.1 mmol/L (3.5-5.1)
--- NOTE | 2016-08-15 07:20 | PDOC ---
Infectious Disease Note Subjective Subjective Remains intubated via trach ROS ROS Unable to obtain Vital Sign Vital Signs Vital Signs Date Time Temp Pulse Resp B/P Pulse Ox O2 Delivery O2 Flow Rate FiO2 08/15/16 06:34 24 100 Ventilator 08/15/16 06:00 98 89/49 08/15/16 04:00 98.5 98.5 Physical Exam PHYSICAL EXAM GENERAL: NAD, Alert, appears comfortable HEENT: PERRL, OC/OP- poor dentition NECK: Supple, no JVD, no LN, trach LUNGS: Clear HEART: S1S2, no gallop, no murmur ABD: Soft, NT, no organomegaly, no rebound. 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 SKIN: No rash IV: PICC LUE Labs Lab Laboratory Tests Test 08/14/16 08:03 08/15/16 04:45 O2 Saturation 97% (92-99) Arterial Blood pH 7.46 (7.35-7.45) Arterial Blood pCO2 at Patient Temp 25mmHg (35-46) Arterial Blood pO2 at Patient Temp 97mmHg (75-108) Arterial Blood HCO3 17mmol/L (21-28) Arterial Blood Base Excess -6mmol/L (-3-3) FiO2 35 White Blood Count 13.0x10^3/uL (4.0-11.0) Red Blood Count 2.54x10^6/uL (3.50-5.40) Hemoglobin 7.4g/dL (12.0-15.5) Hematocrit 22.4% (36.0-47.0) Mean Corpuscular Volume 88fL (79-100) Mean Corpuscular Hemoglobin 29pg (25-35) Mean Corpuscular Hemoglobin Concent 33g/dL (31-37) Red Cell Distribution Width 16.1% (11.5-14.5) Platelet Count 227x10^3/uL (140-400) Neutrophils (%) (Auto) 79% (31-73) Lymphocytes (%) (Auto) 8% (24-48) Monocytes (%) (Auto) 9% (0-9) Eosinophils (%) (Auto) 3% (0-3) Basophils (%) (Auto) 1% (0-3) Neutrophils # (Auto) 10.3x10^3uL (1.8-7.7) Lymphocytes # (Auto) 1.1x10^3/uL (1.0-4.8) Monocytes # (Auto) 1.1x10^3/uL (0.0-1.1) Eosinophils # (Auto) 0.4x10^3/uL (0.0-0.7) Basophils # (Auto) 0.1x10^3/uL (0.0-0.2) Sodium Level 132mmol/L (136-145) Potassium Level 3.1mmol/L (3.5-5.1) Chloride Level 103mmol/L (98-107) Carbon Dioxide Level 23mmol/L (21-32) Anion Gap 6 (6-14) Blood Urea Nitrogen 16mg/dL (7-20) Creatinine 0.8mg/dL (0.6-1.0) Estimated GFR (Cockcroft-Gault) 78.7 Glucose Level 123mg/dL (70-99) Calcium Level 7.5mg/dL (8.5-10.1) Objective Assessment Fever - better S/p Trach/PEG 08/13 Acute anemia 2 units PRBCs 08/06. 08/11 s/p PRBC 1 unit. ? etiology Acute Resp failure - Intubated ? developing ARDS. S/p Bronch 08/08. thick plugs. MSSA. CT 08/09 reviewed MSSA 08/01 sepsis - repeat 08/05+ MSSA. cult 08/07 +. 08/09 neg so far ESR >140 & CRP 301.0 ? reactive Hep C IV drug use. Right-sided bacterial endocarditis. Repeat ECHO smaller veg on TV 08/09 -TTE. 3.0 x 2.0cm mobile mass TV -BC NGTD, 08/01 ([place]). Multiple pulmonary nodules Ileus Renal insufficiency. Severe thrombocytopenia. Leukocytosis. Hepatosplenomegaly on CT Plan Plan of Care Discontinue Zyvox (08/09)wean soon Zosyn (08/09)/(Melissa added 08/11) d'cd on 08/14. cont Nafcillin F/u labs - WBC with mild increase Supportive care Cefepime/Dapto 08/02-08/04 Nafcillin 08/04- 08/09 Zosyn/Zyvox 08/09- Critically ill KAYLYNN SHAY MD Aug 15, 2016 07:20
[2016-08-15] MEDS: IPRATRPIUM/ALBUTEROL 0.5/2.5MG 3 ML NEBU. NEB SCH ×4 (07:51→19:58)
[2016-08-15] MEDS: BUDESONIDE 0.5 MG/2 ML NEBU. NEB SCH ×2 (07:52→19:58)
[2016-08-15 08:13] LABS: HCO3 ABG 19 mmol/L (21-28); PCO2 ABG 27 mmHg (35-46); PH ABG 7.46 (7.35-7.45); PO2 ABG 109 mmHg (75-108); SAT O2 ABG 98 % (92-99)
[2016-08-15] MEDS: FAMOTIDINE 20 MG/2 ML VIAL IVP SCH ×2 (08:13→21:17)
[2016-08-15] MEDS: CHLORHEXIDINE 0.12% 15 ML MOUTHWASH. MM SCH ×2 (08:13→21:16)
[2016-08-15] MEDS: NYSTATIN TOPICAL POWDER 15GM BOTTLE. TP SCH ×2 (08:14→21:16)
--- NOTE | 2016-08-15 08:14 | RAD ---
Portable chest, 08/15/2016: History: Respiratory failure Comparison is made to yesterday's study. The patient is rotated to the left. The tracheostomy tube and left PICC are unchanged in positions. There are moderate unchanged bilateral pleural effusions and moderate pulmonary infiltrates. The underlying pulmonary vascularity is poorly defined. The patient's known cavitary pulmonary nodules are partially obscured by the infiltrates. The findings again suggest a combination of pulmonary edema and pneumonia. IMPRESSION: No significant change since yesterday's study.
[2016-08-15 08:15] LABS: FIO2 ABG 35
[2016-08-15] MEDS: IV 1/2 NORMAL SALINE 1,000 ML IV SCH (08:29)
--- NOTE | 2016-08-15 11:52 | PDOC ---
PROGRESS NOTES Chief Complaint Chief Complaint cc: Severe pain in chest associated with breathing and abdominal pain -Endocarditis -Resp failure on Vent - polysubstance abuse -Hep C, right -rotator cuff repair -Tobacco use -20lb weight loss over the last couple of months -Renal insufficiency -Pneumonia -Septic emboli -Anemia requiring transfusions History of Present Illness History of Present Illness Ms. Escamilla was in bed and on a ventilator when we saw her. We spoke to nursing about her case. Her ventilator settings were at A/C / 22 f / 450 VT / 35% FiO2 / 5 PEEP. Her SpO2% was at 100. She had problems with loose stools and her bedding was being changed while we were present. Vitals Vitals Vital Signs Date Time Temp Pulse Resp B/P Pulse Ox O2 Delivery O2 Flow Rate FiO2 08/15/16 11:45 98 Ventilator 08/15/16 09:00 99 26 98/51 08/15/16 08:00 98.4 98.4 Physical Exam General: Cooperative, No acute distress Heart: Regular rate, Normal S1, Normal S2 Lungs: Clear, Other (No chest retractions were present.) Abdomen: Normal bowel sounds, Soft Extremities: No clubbing, No cyanosis Skin: No rashes, No significant lesion Labs LABS Laboratory Tests Test 08/15/16 04:45 08/15/16 08:00 White Blood Count 13.0x10^3/uL (4.0-11.0) Red Blood Count 2.54x10^6/uL (3.50-5.40) Hemoglobin 7.4g/dL (12.0-15.5) Hematocrit 22.4% (36.0-47.0) Mean Corpuscular Volume 88fL (79-100) Mean Corpuscular Hemoglobin 29pg (25-35) Mean Corpuscular Hemoglobin Concent 33g/dL (31-37) Red Cell Distribution Width 16.1% (11.5-14.5) Platelet Count 227x10^3/uL (140-400) Neutrophils (%) (Auto) 79% (31-73) Lymphocytes (%) (Auto) 8% (24-48) Monocytes (%) (Auto) 9% (0-9) Eosinophils (%) (Auto) 3% (0-3) Basophils (%) (Auto) 1% (0-3) Neutrophils # (Auto) 10.3x10^3uL (1.8-7.7) Lymphocytes # (Auto) 1.1x10^3/uL (1.0-4.8) Monocytes # (Auto) 1.1x10^3/uL (0.0-1.1) Eosinophils # (Auto) 0.4x10^3/uL (0.0-0.7) Basophils # (Auto) 0.1x10^3/uL (0.0-0.2) Sodium Level 132mmol/L (136-145) Potassium Level 3.1mmol/L (3.5-5.1) Chloride Level 103mmol/L (98-107) Carbon Dioxide Level 23mmol/L (21-32) Anion Gap 6 (6-14) Blood Urea Nitrogen 16mg/dL (7-20) Creatinine 0.8mg/dL (0.6-1.0) Estimated GFR (Cockcroft-Gault) 78.7 Glucose Level 123mg/dL (70-99) Calcium Level 7.5mg/dL (8.5-10.1) O2 Saturation 98% (92-99) Arterial Blood pH 7.46 (7.35-7.45) Arterial Blood pCO2 at Patient Temp 27mmHg (35-46) Arterial Blood pO2 at Patient Temp 109mmHg (75-108) Arterial Blood HCO3 19mmol/L (21-28) Arterial Blood Base Excess -4mmol/L (-3-3) FiO2 35 Review of Systems Review of Systems The patient would not contribute to this portion of the examination. Assessment and Plan Assessmemt and Plan Assessment: Ms. Escamilla is a 41 year old female who presented with severe pain in the chest associated with breathing and abdominal pain. -Endocarditis -Resp failure on Vent - polysubstance abuse -Hep C, right -rotator cuff repair -Tobacco use -20lb weight loss over the last couple of months -Renal insufficiency -Pneumonia -Septic emboli -Anemia requiring transfusions Plan: 1. Continue to monitor normocytic anemia 2. Potassium levels were low - consider KCl replacement 3. Recheck rest of labs 4. PT/OT 5. Determine possibility of LTAC placement 6. Consider replacement of calcium 7. Continue pain management medication with acetaminophen and fentanyl 8. Continue antibiotic nafcillin per ID 9. Continue mouthrinse chlorhexadine 10. Continue nystatin applications 11. Continue DVT PPX 12. Continue famotidine per GI 13. Continue breathing treatments with albuterol/ipratropium and budesonide 14. Appreciate consultation from surgery, cardiothoracic surgery, pulmonology, ID, and gastroenterology Prognosis is guarded Problems: Comment Review of Relevant I have reviewed the following items shanta (where applicable) has been applied. Labs Laboratory Tests Test 08/13/16 16:40 08/14/16 06:00 08/14/16 08:03 08/15/16 04:45 Albumin 0.9g/dL (3.4-5.0) White Blood Count 9.5x10^3/uL (4.0-11.0) 13.0x10^3/uL (4.0-11.0) Red Blood Count 2.99x10^6/uL (3.50-5.40) 2.54x10^6/uL (3.50-5.40) Hemoglobin 8.9g/dL (12.0-15.5) 7.4g/dL (12.0-15.5) Hematocrit 25.9% (36.0-47.0) 22.4% (36.0-47.0) Mean Corpuscular Volume 87fL (79-100) 88fL (79-100) Mean Corpuscular Hemoglobin 30pg (25-35) 29pg (25-35) Mean Corpuscular Hemoglobin Concent 34g/dL (31-37) 33g/dL (31-37) Red Cell Distribution Width 15.9% (11.5-14.5) 16.1% (11.5-14.5) Platelet Count 163x10^3/uL (140-400) 227x10^3/uL (140-400) Neutrophils (%) (Auto) 80% (31-73) 79% (31-73) Lymphocytes (%) (Auto) 10% (24-48) 8% (24-48) Monocytes (%) (Auto) 9% (0-9) 9% (0-9) Eosinophils (%) (Auto) 1% (0-3) 3% (0-3) Basophils (%) (Auto) 1% (0-3) 1% (0-3) Neutrophils # (Auto) 7.6x10^3uL (1.8-7.7) 10.3x10^3uL (1.8-7.7) Lymphocytes # (Auto) 1.0x10^3/uL (1.0-4.8) 1.1x10^3/uL (1.0-4.8) Monocytes # (Auto) 0.8x10^3/uL (0.0-1.1) 1.1x10^3/uL (0.0-1.1) Eosinophils # (Auto) 0.1x10^3/uL (0.0-0.7) 0.4x10^3/uL (0.0-0.7) Basophils # (Auto) 0.1x10^3/uL (0.0-0.2) 0.1x10^3/uL (0.0-0.2) Sodium Level 134mmol/L (136-145) 132mmol/L (136-145) Potassium Level 2.9mmol/L (3.5-5.1) 3.1mmol/L (3.5-5.1) Chloride Level 102mmol/L (98-107) 103mmol/L (98-107) Carbon Dioxide Level 22mmol/L (21-32) 23mmol/L (21-32) Anion Gap 10 (6-14) 6 (6-14) Blood Urea Nitrogen 15mg/dL (7-20) 16mg/dL (7-20) Creatinine 0.8mg/dL (0.6-1.0) 0.8mg/dL (0.6-1.0) Estimated GFR (Cockcroft-Gault) 78.7 78.7 Glucose Level 93mg/dL (70-99) 123mg/dL (70-99) Calcium Level 7.4mg/dL (8.5-10.1) 7.5mg/dL (8.5-10.1) O2 Saturation 97% (92-99) Arterial Blood pH 7.46 (7.35-7.45) Arterial Blood pCO2 at Patient Temp 25mmHg (35-46) Arterial Blood pO2 at Patient Temp 97mmHg (75-108) Arterial Blood HCO3 17mmol/L (21-28) Arterial Blood Base Excess -6mmol/L (-3-3) FiO2 35 Test 08/15/16 08:00 O2 Saturation 98% (92-99) Arterial Blood pH 7.46 (7.35-7.45) Arterial Blood pCO2 at Patient Temp 27mmHg (35-46) Arterial Blood pO2 at Patient Temp 109mmHg (75-108) Arterial Blood HCO3 19mmol/L (21-28) Arterial Blood Base Excess -4mmol/L (-3-3) FiO2 35 Laboratory Tests Test 08/15/16 04:45 08/15/16 08:00 White Blood Count 13.0x10^3/uL (4.0-11.0) Red Blood Count 2.54x10^6/uL (3.50-5.40) Hemoglobin 7.4g/dL (12.0-15.5) Hematocrit 22.4% (36.0-47.0) Mean Corpuscular Volume 88fL (79-100) Mean Corpuscular Hemoglobin 29pg (25-35) Mean Corpuscular Hemoglobin Concent 33g/dL (31-37) Red Cell Distribution Width 16.1% (11.5-14.5) Platelet Count 227x10^3/uL (140-400) Neutrophils (%) (Auto) 79% (31-73) Lymphocytes (%) (Auto) 8% (24-48) Monocytes (%) (Auto) 9% (0-9) Eosinophils (%) (Auto) 3% (0-3) Basophils (%) (Auto) 1% (0-3) Neutrophils # (Auto) 10.3x10^3uL (1.8-7.7) Lymphocytes # (Auto) 1.1x10^3/uL (1.0-4.8) Monocytes # (Auto) 1.1x10^3/uL (0.0-1.1) Eosinophils # (Auto) 0.4x10^3/uL (0.0-0.7) Basophils # (Auto) 0.1x10^3/uL (0.0-0.2) Sodium Level 132mmol/L (136-145) Potassium Level 3.1mmol/L (3.5-5.1) Chloride Level 103mmol/L (98-107) Carbon Dioxide Level 23mmol/L (21-32) Anion Gap 6 (6-14) Blood Urea Nitrogen 16mg/dL (7-20) Creatinine 0.8mg/dL (0.6-1.0) Estimated GFR (Cockcroft-Gault) 78.7 Glucose Level 123mg/dL (70-99) Calcium Level 7.5mg/dL (8.5-10.1) O2 Saturation 98% (92-99) Arterial Blood pH 7.46 (7.35-7.45) Arterial Blood pCO2 at Patient Temp 27mmHg (35-46) Arterial Blood pO2 at Patient Temp 109mmHg (75-108) Arterial Blood HCO3 19mmol/L (21-28) Arterial Blood Base Excess -4mmol/L (-3-3) FiO2 35 Microbiology 08/09/16 Blood Culture - Final, Complete NO GROWTH AFTER 5 DAYS 08/08/16 AFB Specimen Processing Tissue - Final, Resulted 08/08/16 Acid Fast Bacilli Culture, Resulted Pending 08/08/16 Gram Stain - Final, Resulted 08/08/16 Fungal Culture, Resulted Pending 08/08/16 Fungal Culture Result 1, Resulted Pending Medications Current Medications Amino Acids/ Glycerin/ Electrolytes (Procalamine) 1,000 ml @ 100 mls/hr Q10H IV Last administered on 08/05/16 02:40; Start 08/02/16 at 03:00; Stop at 08:50; Status DC Morphine Sulfate 2 mg 2 mg PRN Q2HR PRN IV SEVERE PAIN Last administered on 11:59; Start 08/02/16 at 02:30; Stop 08/02/16 at 13:28; Status DC Daptomycin 220 mg/ Sodium Chloride 50 ml @ 100 mls/hr Q24H IV ; Start 08/02/16 at 09:15; Stop 08/02/16 at 15:58; Status DC Cefepime HCl 1 gm/ Sodium Chloride 50 ml @ 100 mls/hr Q12HR IV Last administered on 08/04/16 08:10; Start 08/02/16 at 10:00; Stop 08/04/16 at 10:33 ; Status DC Daptomycin/Sodium Chloride (Cubicin/Iv Sodium Chloride 0.9% 50ml) 50 ml @ 100 mls/hr ONCE ONCE IV ; Start 08/02/16 at 10:00; Stop 08/02/16 at 10:29; Status Cancel Potassium Chloride 40 meq 40 meq 1X ONCE PO Last administered on 08/02/16 10: 17; Start 08/02/16 at 09:45; Stop 08/02/16 at 09:46; Status DC Daptomycin/Sodium Chloride (Cubicin/Iv Sodium Chloride 0.9% 50ml) 50 ml @ 100 mls/hr Q24H IV Last administered on 08/03/16 09:43; Start 08/02/16 at 10:15; Stop 08/03/16 at 10:29; Status DC Potassium Chloride (Klor-Con) 40 meq 1X ONCE PO Last administered on 12:57; Start 08/02/16 at 12:30; Stop 08/02/16 at 12:36; Status DC Morphine Sulfate 5 mg PRN Q2HRS PRN IV MODERATE TO SEVERE PAIN Last administered on 08/04/16 08:16; Start 08/02/16 at 13:30 Morphine Sulfate 8 mg PRN Q2HRS PRN IV MODERATE TO SEVERE PAIN Last administered on 08/04/16 14:58; Start 08/02/16 at 13:30 Acetaminophen 650 mg 650 mg PRN Q6HRS PRN PO TEMP GREATER THAN 100.4 Last administered on 08/10/16 00:18; Start 08/02/16 at 14:45 Lactated Ringer's 1,000 ml @ 50 mls/hr Q20H IV ; Start 08/05/16 at 07:00; Stop 08/05/16 at 18:13; Status DC Daptomycin/Sodium Chloride (Cubicin/Iv Sodium Chloride 0.9% 50ml) 50 ml @ 100 mls/hr Q24H IV ; Start 08/03/16 at 11:00; Status Cancel Potassium Chloride (Klor-Con) 40 meq 1X ONCE PO Last administered on 17:41; Start 08/02/16 at 17:15; Stop 08/02/16 at 17:18; Status DC Potassium Chloride (Klor-Con) 40 meq BIDWMEALS PO ; Start 08/03/16 at 08:00; Stop 08/03/16 at 11:08; Status DC Morphine Sulfate 5 mg 1X ONCE IV Last administered on 08/02/16 21:45; Start 08/02/16 at 21:30; Stop 08/02/16 at 21:33; Status DC Lorazepam (Ativan) 1 mg 1X ONCE IV Last administered on 08/02/16 21:30; Start 08/02/16 at 21:30; Stop 08/02/16 at 21:33; Status DC Acetaminophen (Acetaminophen Supp) 650 mg PRN Q6HRS PRN TN MILD PAIN / TEMP Last administered on 08/13/16 03:13; Start 08/03/16 at 01:15 Albuterol/ Ipratropium (Duoneb) 3 ml RTQID NEB Last administered on 08/15/16 11:43; Start 08/03/16 at 08:00 Budesonide (Pulmicort) 0.5 mg RTBID NEB Last administered on 08/15/16 07:52; Start 08/03/16 at 08:00 Pantoprazole Sodium 40 mg 40 mg 1X ONCE IVP Last administered on 08/03/16 10: 06; Start 08/03/16 at 08:00; Stop 08/03/16 at 08:01; Status DC Daptomycin/Sodium Chloride (Cubicin/Iv Sodium Chloride 0.9% 50ml) 50 ml @ 100 mls/hr Q24H IV Last administered on 08/04/16 10:03; Start 08/04/16 at 10:00; Stop 08/04/16 at 10:33; Status DC Lorazepam (Ativan) 0.5 mg PRN Q6HRS PRN IV ANXIETY / AGITATION Last administered on 08/04/16 09:12; Start 08/03/16 at 11:15; Stop 08/07/16 at 11:02 ; Status DC Lorazepam (Ativan) 0.5 mg 1X ONCE IV Last administered on 08/04/16 10:00; Start 08/04/16 at 10:00; Stop 08/04/16 at 10:01; Status DC Morphine Sulfate 5 mg 1X ONCE IV Last administered on 08/04/16 10:00; Start 08/04/16 at 10:00; Stop 08/04/16 at 10:01; Status DC Lorazepam 0.5 mg 0.5 mg PRN Q4HRS PRN IV ANXIETY / AGITATION Last administered on 08/10/16 22:28; Start 08/04/16 at 10:00 Nafcillin Sodium 2 gm/Sodium Chloride 100 ml @ 200 mls/hr Q4HRS IV Last administered on 08/09/16 10:10; Start 08/04/16 at 12:00; Stop 08/09/16 at 11:49 ; Status DC Propofol (Diprivan) 100 ml @ As Directed STK-MED ONCE IV ; Start 08/04/16 at 16 :10; Stop 08/04/16 at 16:11; Status DC Succinylcholine Chloride (Anectine) 200 mg STK-MED ONCE .ROUTE ; Start 08/04/16 at 16:14; Stop 08/04/16 at 16:15; Status DC Succinylcholine Chloride 200 mg 200 mg 1X ONCE IV ; Start 08/04/16 at 16:45; Stop 08/04/16 at 16:46; Status DC Propofol (Diprivan) 100 ml @ 0 mls/hr CONT PRN IV SEE I/O RECORD Last administered on 08/15/16 06:25; Start 08/04/16 at 16:45 Lorazepam (Ativan) 0.5 mg 1X ONCE IV Last administered on 08/04/16 16:45; Start 08/04/16 at 16:45; Stop 08/04/16 at 16:46; Status DC Morphine Sulfate 5 mg 5 mg 1X ONCE IV Last administered on 08/04/16 16:44; Start 08/04/16 at 16:45; Stop 08/04/16 at 16:46; Status DC Fentanyl Citrate (Fentanyl 600 Mcg/30 ml ELECTROPLATER AUTOMATIC) 30 ml @ 0 mls/hr CONT PRN IV PROTOCOL Last administered on 08/15/16 05:55; Start 08/04/16 at 16:45 Chlorhexidine Gluconate (Peridex) 15 ml BID MM Last administered on 08/15/16 08:13; Start 08/04/16 at 21:00 Famotidine 20 mg 20 mg BID IVP Last administered on 08/15/16 08:13; Start at 17:00 Sodium Chloride (Iv Sodium Chloride 0.9% 1000ml Bag) 1,000 ml @ 100 mls/hr Q10H IV Last administered on 08/07/16 04:35; Start 08/05/16 at 09:00; Stop at 08:59; Status DC Succinylcholine Chloride (Anectine) 200 mg STK-MED ONCE .ROUTE ; Start 08/04/16 at 16:00; Stop 08/05/16 at 12:32; Status DC Lorazepam (Ativan) 2 mg 1X ONCE IV Last administered on 08/05/16 20:43; Start 08/05/16 at 21:00; Stop 08/05/16 at 21:01; Status DC Furosemide (Lasix) 40 mg 1X PRN PRN IV blood transfusion Last administered on 14:17; Start 08/06/16 at 08:00; Stop 08/07/16 at 07:59; Status DC Sodium Bicarbonate 50 meq 1X ONCE IV Last administered on 08/06/16 14:06; Start 08/06/16 at 12:00; Stop 08/06/16 at 12:01; Status DC Calcium Chloride 1,000 mg STK-MED ONCE IV ; Start 08/04/16 at 12:00; Stop at 15:13; Status DC Epinephrine HCl (Epinephrine Syringe) 2 mg STK-MED ONCE .ROUTE ; Start 08/04/16 at 12:00; Stop 08/06/16 at 15:13; Status DC Sodium Bicarbonate 100 meq 100 meq STK-MED ONCE .ROUTE ; Start 08/04/16 at 12:00 ; Stop 08/06/16 at 15:13; Status DC Amino Acids/ Glycerin/ Electrolytes (Procalamine) 1,000 ml @ 100 mls/hr Q10H IV Last administered on 08/08/16 12:33; Start 08/07/16 at 10:00; Stop at 09:42; Status DC Enoxaparin Sodium (Lovenox 40mg Syringe) 40 mg Q24H SQ Last administered on 13:10; Start 08/07/16 at 13:00; Stop 08/10/16 at 10:43; Status DC Vecuronium [place] (Norcuron Bolus) 10 mg STK-MED ONCE IV ; Start 08/07/16 at 13 :56; Stop 08/07/16 at 13:57; Status DC Vecuronium [place] (Norcuron Bolus) 6 mg 1X ONCE IV Last administered on 14:06; Start 08/07/16 at 14:00; Stop 08/07/16 at 14:05; Status DC Sodium Bicarbonate 50 meq 1X ONCE IV Last administered on 08/08/16 11:46; Start 08/08/16 at 11:45; Stop 08/08/16 at 11:46; Status DC Nystatin 1 james 1 james BID TP Last administered on 08/15/16 08:14; Start at 21:00 Linezolid 300 ml @ 300 mls/hr Q12HR IV Last administered on 08/14/16 20:51; Start 08/09/16 at 09:00; Stop 08/15/16 at 07:21; Status DC Sodium Chloride 1,000 ml @ 50 mls/hr Q20H IV Last administered on 08/15/16 08 :29; Start 08/09/16 at 09:45 Sodium Bicarbonate/ Dextrose 1,150 ml @ 100 mls/hr 1X ONCE IV Last administered on 08/09/16 12:25; Start 08/09/16 at 11:30; Stop 08/09/16 at 22:59 ; Status DC Piperacillin Sod/ Tazobactam Sod 1 each 1 each PRN DAILY PRN MC SEE COMMENTS; Start 08/09/16 at 12:00; Stop 08/14/16 at 07:40; Status DC Piperacillin Sod/ Tazobactam Sod/ Sodium Chloride (Zosyn/Iv Sodium Chloride 0.9 % 100ml) 100 ml @ 200 mls/hr Q6HRS IV Last administered on 08/14/16 05:58; Start 08/09/16 at 12:30; Stop 08/14/16 at 07:33; Status DC Vecuronium [place] 5 mg 5 mg PRN Q4HRS PRN IV INCREASED RESPIRATORY,NOT RELI Last administered on 08/11/16 02:56; Start 08/09/16 at 13:30 Potassium Chloride 50 ml @ 100 mls/hr Q1H IV ; Start 08/10/16 at 09:30; Stop at 10:59; Status Cancel Potassium Chloride (KCl Premix 10meq) 100 ml @ 100 mls/hr Q1H IV Last administered on 08/10/16 16:28; Start 08/10/16 at 10:30; Stop 08/10/16 at 14:29 ; Status DC Potassium Chloride 60 meq 60 meq 1X ONCE PEG Last administered on 08/10/16 11 :16; Start 08/10/16 at 11:00; Stop 08/10/16 at 11:01; Status DC Sodium Bicarbonate/ Dextrose 1,150 ml @ 100 mls/hr [id number] IV Last administered on 08/10/16 11:14; Start 08/10/16 at 11:00; Stop 08/10/16 at 22:29 ; Status DC Enoxaparin Sodium 40 mg 40 mg Q24H SQ ; Start 08/10/16 at 13:00; Stop 08/10/16 at 13:00; Status DC Micafungin Sodium/ Dextrose (Mycamine) 100 ml @ 100 mls/hr Q24H IV Last administered on 08/13/16 16:26; Start 08/11/16 at 16:00; Stop 08/14/16 at 07:33 ; Status DC Furosemide (Lasix) 40 mg 1X ONCE IVP Last administered on 08/12/16 08:38; Start 08/12/16 at 08:00; Stop 08/12/16 at 08:06; Status DC Morphine Sulfate 1 mg 1 mg PRN Q10MIN PRN IV SEVERE PAIN; Start 08/13/16 at 07: 00; Stop 08/14/16 at 06:59; Status DC Lactated Ringer's (Iv Lactated Ringers) 1,000 ml @ 0 mls/hr Q0M IV ; Start at 07:00; Stop 08/13/16 at 18:59; Status DC Lidocaine HCl 2 ml PRN 1X PRN ID PRIOR TO IV START; Start 08/13/16 at 07:00; Stop 08/14/16 at 06:59; Status DC Hydromorphone HCl (Dilaudid) 0.5 mg PRN Q10MIN PRN IV SEV PAIN, Second choice; Start 08/13/16 at 07:00; Stop 08/14/16 at 06:59; Status DC Prochlorperazine Edisylate (Compazine) 5 mg PACU PRN PRN IV NAUSEA, MRX1; Start 08/13/16 at 07:00; Stop 08/14/16 at 06:59; Status DC Morphine Sulfate 1 mg 1 mg PRN Q10MIN PRN IV SEVERE PAIN; Start 08/13/16 at 07: 00; Stop 08/14/16 at 06:59; Status DC Lactated Ringer's (Iv Lactated Ringers) 1,000 ml @ 0 mls/hr Q0M IV ; Start at 07:00; Stop 08/13/16 at 18:59; Status DC Lidocaine HCl 2 ml PRN 1X PRN ID PRIOR TO IV START; Start 08/13/16 at 07:00; Stop 08/14/16 at 06:59; Status DC Hydromorphone HCl (Dilaudid) 0.5 mg PRN Q10MIN PRN IV SEV PAIN, Second choice; Start 08/13/16 at 07:00; Stop 08/14/16 at 06:59; Status DC Prochlorperazine Edisylate 5 mg 5 mg PACU PRN PRN IV NAUSEA, MRX1; Start at 07:00; Stop 08/14/16 at 06:59; Status DC Potassium Chloride (KCl Premix 20meq) 50 ml @ 50 mls/hr Q1H IV Last administered on 08/13/16 07:57; Start 08/13/16 at 07:00; Stop 08/13/16 at 08:59 ; Status DC Rocuronium [place] 50 mg 50 mg STK-MED ONCE .ROUTE ; Start 08/13/16 at 12:50; Stop 08/13/16 at 12:51; Status DC Propofol (Diprivan) 20 ml @ As Directed STK-MED ONCE IV ; Start 08/13/16 at 12: 53; Stop 08/13/16 at 12:54; Status DC Sevoflurane 30 ml 30 ml STK-MED ONCE IH ; Start 08/13/16 at 14:04; Stop at 14:05; Status DC Albumin Human 250 ml @ 100 mls/hr 1X ONCE IV Last administered on 08/13/16 23:38; Start 08/13/16 at 18:00; Stop 08/13/16 at 20:29; Status DC Albumin Human 500 ml @ 100 mls/hr 1X ONCE IV Last administered on 08/13/16 18:15; Start 08/13/16 at 18:00; Stop 08/13/16 at 22:59; Status DC Potassium Chloride 50 ml @ 50 mls/hr Q1H IV Last administered on 08/14/16 10: 46; Start 08/14/16 at 08:00; Stop 08/14/16 at 09:59; Status DC Nafcillin Sodium/ Sodium Chloride (Iv Sodium Chloride 0.9% 100ml) 100 ml @ 200 mls/hr Q4HRS IV Last administered on 08/15/16 08:13; Start 08/14/16 at 08:00 Enoxaparin Sodium (Lovenox 40mg Syringe) 40 mg Q24H SQ Last administered on 15:28; Start 08/14/16 at 12:00 Active Scripts Active Reported No Known Medications Prior To Admisstion (Info) Each 1 Each Vitals/I & O Vital Sign - Last 24 Hours 08/14/16 08/14/16 08/14/16 08/14/16 12:00 12:00 12:09 13:00 Temp 99.8 99.8 Pulse 106 110 Resp 31 B/P 112/66 115/66 Pulse Ox 99 100 99 O2 Delivery Mechanical Ventilator Ventilator Ventilator Ventilator 08/14/16 08/14/16 08/14/16 08/14/16 13:15 14:00 15:00 15:17 Pulse 106 102 Resp B/P 112/61 107/58 Pulse Ox 100 100 100 100 O2 Delivery Ventilator Ventilator Ventilator Ventilator 08/14/16 08/14/16 08/14/16 08/14/16 15:30 16:00 16:00 17:00 Temp 99.4 99.4 Pulse 102 102 Resp 25 B/P 93/53 100/59 Pulse Ox 100 100 100 O2 Delivery Ventilator Mechanical Ventilator Ventilator Ventilator 08/14/16 08/14/16 08/14/16 08/14/16 17:30 18:00 19:00 20:00 Pulse 101 98 Resp 25 B/P 100/62 94/47 Pulse Ox 100 100 100 O2 Delivery Ventilator Ventilator Ventilator Mechanical Ventilator 08/14/16 08/14/16 08/14/16 08/14/16 20:00 20:10 20:12 21:00 Temp 98.7 98.7 Pulse 100 100 Resp 26 25 B/P 93/49 98/52 Pulse Ox 100 100 100 100 O2 Delivery Ventilator Ventilator Ventilator Ventilator 08/14/16 08/14/16 08/14/16 08/14/16 22:00 23:00 23:00 23:17 Pulse 96 90 Resp 22 22 23 B/P 90/54 89/47 Pulse Ox 100 100 100 100 O2 Delivery Ventilator Ventilator Ventilator Ventilator 08/15/16 08/15/16 08/15/16 08/15/16 00:00 00:00 00:52 01:00 Temp 97.6 97.6 Pulse 94 100 Resp 25 26 B/P 95/51 84/51 Pulse Ox 100 100 100 O2 Delivery Mechanical Ventilator Ventilator Ventilator Ventilator 08/15/16 08/15/16 08/15/16 08/15/16 02:00 03:00 03:15 04:00 Temp 98.5 98.5 Pulse 96 96 98 Resp 24 25 25 B/P 90/46 87/49 84/47 Pulse Ox 100 100 100 100 O2 Delivery Ventilator Ventilator Ventilator Ventilator 08/15/16 08/15/16 08/15/16 08/15/16 04:00 05:00 05:52 05:55 Pulse 97 Resp 23 23 B/P 86/50 Pulse Ox 100 100 100 O2 Delivery Mechanical Ventilator Ventilator Ventilator Ventilator 08/15/16 08/15/16 08/15/16 08/15/16 06:00 06:34 07:00 07:52 Pulse 98 92 Resp 26 24 23 B/P 89/49 88/46 Pulse Ox 100 100 100 100 O2 Delivery Ventilator Ventilator Ventilator Ventilator 08/15/16 08/15/16 08/15/16 08/15/16 08:00 08:00 09:00 09:53 Temp 98.4 98.4 Pulse 96 99 Resp 28 26 B/P 92/48 98/51 Pulse Ox 99 100 99 O2 Delivery Mechanical Ventilator Ventilator Ventilator Ventilator 08/15/16 11:45 Pulse Ox 98 O2 Delivery Ventilator Intake and Output 08/14/16 08/14/16 08/15/16 15:00 23:00 07:00 Intake Total 160 ml 2057 ml 1748 ml Output Total 575 ml 410 ml 210 ml Balance -415 ml 1647 ml 1538 ml Nutrition Consultation Dietary Evaluation: Recommendations by RD: PPN/TPN Comments: Pt is s/p PEG placement 08/14 Rec. resume the TF's with Fibersource HN, goal rate 55 ml/hr Start at 25 ml/hr, increase to goal rate of 55 ml/hr after 8hrs Flushes 150 cc q4h if no IVF's Expected Outcomes/Goals: tolerate the TF's via PEG at goal rate meet 75% estimated nutrition needs Interpretation of weight loss: >7.5% in 3 months Malnutrition Findings: Food and Nutrition Intake (Mod: <75% est energy req 7days Body Fat Depletion (Non Severe: Mild Depletion Reduced Snake Charmer Strength: N/A Reduced Snake Charmer Strength (Non-Sev: N/A Malnutrition related to morbid: No Weight Status: Overweight Fluid Accumulation (N/A): N/A CODY BLACK III DO Aug 15, 2016 11:52
--- NOTE | 2016-08-15 12:27 | PDOC ---
G I PROGRESS NOTE Subjective Awake, orients. No real attempt to communicate. Objective No reports of any problems with tube feeding. Physical Exam Lungs clear anteriorly. RRR Abdomen soft, not distended. PEG site OK. Review of Relevant I have reviewed the following items shanta (where applicable) has been applied. Labs Laboratory Tests Test 08/13/16 16:40 08/14/16 06:00 08/14/16 08:03 08/15/16 04:45 Albumin 0.9g/dL (3.4-5.0) White Blood Count 9.5x10^3/uL (4.0-11.0) 13.0x10^3/uL (4.0-11.0) Red Blood Count 2.99x10^6/uL (3.50-5.40) 2.54x10^6/uL (3.50-5.40) Hemoglobin 8.9g/dL (12.0-15.5) 7.4g/dL (12.0-15.5) Hematocrit 25.9% (36.0-47.0) 22.4% (36.0-47.0) Mean Corpuscular Volume 87fL (79-100) 88fL (79-100) Mean Corpuscular Hemoglobin 30pg (25-35) 29pg (25-35) Mean Corpuscular Hemoglobin Concent 34g/dL (31-37) 33g/dL (31-37) Red Cell Distribution Width 15.9% (11.5-14.5) 16.1% (11.5-14.5) Platelet Count 163x10^3/uL (140-400) 227x10^3/uL (140-400) Neutrophils (%) (Auto) 80% (31-73) 79% (31-73) Lymphocytes (%) (Auto) 10% (24-48) 8% (24-48) Monocytes (%) (Auto) 9% (0-9) 9% (0-9) Eosinophils (%) (Auto) 1% (0-3) 3% (0-3) Basophils (%) (Auto) 1% (0-3) 1% (0-3) Neutrophils # (Auto) 7.6x10^3uL (1.8-7.7) 10.3x10^3uL (1.8-7.7) Lymphocytes # (Auto) 1.0x10^3/uL (1.0-4.8) 1.1x10^3/uL (1.0-4.8) Monocytes # (Auto) 0.8x10^3/uL (0.0-1.1) 1.1x10^3/uL (0.0-1.1) Eosinophils # (Auto) 0.1x10^3/uL (0.0-0.7) 0.4x10^3/uL (0.0-0.7) Basophils # (Auto) 0.1x10^3/uL (0.0-0.2) 0.1x10^3/uL (0.0-0.2) Sodium Level 134mmol/L (136-145) 132mmol/L (136-145) Potassium Level 2.9mmol/L (3.5-5.1) 3.1mmol/L (3.5-5.1) Chloride Level 102mmol/L (98-107) 103mmol/L (98-107) Carbon Dioxide Level 22mmol/L (21-32) 23mmol/L (21-32) Anion Gap 10 (6-14) 6 (6-14) Blood Urea Nitrogen 15mg/dL (7-20) 16mg/dL (7-20) Creatinine 0.8mg/dL (0.6-1.0) 0.8mg/dL (0.6-1.0) Estimated GFR (Cockcroft-Gault) 78.7 78.7 Glucose Level 93mg/dL (70-99) 123mg/dL (70-99) Calcium Level 7.4mg/dL (8.5-10.1) 7.5mg/dL (8.5-10.1) O2 Saturation 97% (92-99) Arterial Blood pH 7.46 (7.35-7.45) Arterial Blood pCO2 at Patient Temp 25mmHg (35-46) Arterial Blood pO2 at Patient Temp 97mmHg (75-108) Arterial Blood HCO3 17mmol/L (21-28) Arterial Blood Base Excess -6mmol/L (-3-3) FiO2 35 Test // 08:00 O2 Saturation 98% (92-99) Arterial Blood pH 7.46 (7.35-7.45) Arterial Blood pCO2 at Patient Temp 27mmHg (35-46) Arterial Blood pO2 at Patient Temp 109mmHg (75-108) Arterial Blood HCO3 19mmol/L (21-28) Arterial Blood Base Excess -4mmol/L (-3-3) FiO2 35 Laboratory Tests Test 08/15/16 04:45 08/15/16 08:00 White Blood Count 13.0x10^3/uL (4.0-11.0) Red Blood Count 2.54x10^6/uL (3.50-5.40) Hemoglobin 7.4g/dL (12.0-15.5) Hematocrit 22.4% (36.0-47.0) Mean Corpuscular Volume 88fL (79-100) Mean Corpuscular Hemoglobin 29pg (25-35) Mean Corpuscular Hemoglobin Concent 33g/dL (31-37) Red Cell Distribution Width 16.1% (11.5-14.5) Platelet Count 227x10^3/uL (140-400) Neutrophils (%) (Auto) 79% (31-73) Lymphocytes (%) (Auto) 8% (24-48) Monocytes (%) (Auto) 9% (0-9) Eosinophils (%) (Auto) 3% (0-3) Basophils (%) (Auto) 1% (0-3) Neutrophils # (Auto) 10.3x10^3uL (1.8-7.7) Lymphocytes # (Auto) 1.1x10^3/uL (1.0-4.8) Monocytes # (Auto) 1.1x10^3/uL (0.0-1.1) Eosinophils # (Auto) 0.4x10^3/uL (0.0-0.7) Basophils # (Auto) 0.1x10^3/uL (0.0-0.2) Sodium Level 132mmol/L (136-145) Potassium Level 3.1mmol/L (3.5-5.1) Chloride Level 103mmol/L (98-107) Carbon Dioxide Level 23mmol/L (21-32) Anion Gap 6 (6-14) Blood Urea Nitrogen 16mg/dL (7-20) Creatinine 0.8mg/dL (0.6-1.0) Estimated GFR (Cockcroft-Gault) 78.7 Glucose Level 123mg/dL (70-99) Calcium Level 7.5mg/dL (8.5-10.1) O2 Saturation 98% (92-99) Arterial Blood pH 7.46 (7.35-7.45) Arterial Blood pCO2 at Patient Temp 27mmHg (35-46) Arterial Blood pO2 at Patient Temp 109mmHg (75-108) Arterial Blood HCO3 19mmol/L (21-28) Arterial Blood Base Excess -4mmol/L (-3-3) FiO2 35 Microbiology 08/09/16 Blood Culture - Final, Complete NO GROWTH AFTER 5 DAYS 08/08/16 AFB Specimen Processing Tissue - Final, Resulted 08/08/16 Acid Fast Bacilli Culture, Resulted Pending 08/08/16 Gram Stain - Final, Resulted 08/08/16 Fungal Culture, Resulted Pending 08/08/16 Fungal Culture Result 1, Resulted Pending Mild drop in hemoglobin; no reports of any overt bleeding. Medications Current Medications Amino Acids/ Glycerin/ Electrolytes (Procalamine) 1,000 ml @ 100 mls/hr Q10H IV Last administered on 08/05/16 02:40; Start 08/02/16 at 03:00; Stop at 08:50; Status DC Morphine Sulfate 2 mg 2 mg PRN Q2HR PRN IV SEVERE PAIN Last administered on 11:59; Start 08/02/16 at 02:30; Stop 08/02/16 at 13:28; Status DC Daptomycin 220 mg/ Sodium Chloride 50 ml @ 100 mls/hr Q24H IV ; Start 08/02/16 at 09:15; Stop 08/02/16 at 15:58; Status DC Cefepime HCl 1 gm/ Sodium Chloride 50 ml @ 100 mls/hr Q12HR IV Last administered on 08/04/16 08:10; Start 08/02/16 at 10:00; Stop 08/04/16 at 10:33 ; Status DC Daptomycin/Sodium Chloride (Cubicin/Iv Sodium Chloride 0.9% 50ml) 50 ml @ 100 mls/hr ONCE ONCE IV ; Start 08/02/16 at 10:00; Stop 08/02/16 at 10:29; Status Cancel Potassium Chloride 40 meq 40 meq 1X ONCE PO Last administered on 08/02/16 10: 17; Start 08/02/16 at 09:45; Stop 08/02/16 at 09:46; Status DC Daptomycin/Sodium Chloride (Cubicin/Iv Sodium Chloride 0.9% 50ml) 50 ml @ 100 mls/hr Q24H IV Last administered on 08/03/16 09:43; Start 08/02/16 at 10:15; Stop 08/03/16 at 10:29; Status DC Potassium Chloride (Klor-Con) 40 meq 1X ONCE PO Last administered on 12:57; Start 08/02/16 at 12:30; Stop 08/02/16 at 12:36; Status DC Morphine Sulfate 5 mg PRN Q2HRS PRN IV MODERATE TO SEVERE PAIN Last administered on 08/04/16 08:16; Start 08/02/16 at 13:30 Morphine Sulfate 8 mg PRN Q2HRS PRN IV MODERATE TO SEVERE PAIN Last administered on 08/04/16 14:58; Start 08/02/16 at 13:30 Acetaminophen 650 mg 650 mg PRN Q6HRS PRN PO TEMP GREATER THAN 100.4 Last administered on 08/10/16 00:18; Start 08/02/16 at 14:45 Lactated Ringer's 1,000 ml @ 50 mls/hr Q20H IV ; Start 08/05/16 at 07:00; Stop 08/05/16 at 18:13; Status DC Daptomycin/Sodium Chloride (Cubicin/Iv Sodium Chloride 0.9% 50ml) 50 ml @ 100 mls/hr Q24H IV ; Start 08/03/16 at 11:00; Status Cancel Potassium Chloride (Klor-Con) 40 meq 1X ONCE PO Last administered on 17:41; Start 08/02/16 at 17:15; Stop 08/02/16 at 17:18; Status DC Potassium Chloride (Klor-Con) 40 meq BIDWMEALS PO ; Start 08/03/16 at 08:00; Stop 08/03/16 at 11:08; Status DC Morphine Sulfate 5 mg 1X ONCE IV Last administered on 08/02/16 21:45; Start 08/02/16 at 21:30; Stop 08/02/16 at 21:33; Status DC Lorazepam (Ativan) 1 mg 1X ONCE IV Last administered on 08/02/16 21:30; Start 08/02/16 at 21:30; Stop 08/02/16 at 21:33; Status DC Acetaminophen (Acetaminophen Supp) 650 mg PRN Q6HRS PRN [place] MILD PAIN / TEMP Last administered on 08/13/16 03:13; Start 08/03/16 at 01:15 Albuterol/ Ipratropium (Duoneb) 3 ml RTQID NEB Last administered on 08/15/16 11:43; Start 08/03/16 at 08:00 Budesonide (Pulmicort) 0.5 mg RTBID NEB Last administered on 08/15/16 07:52; Start 08/03/16 at 08:00 Pantoprazole Sodium 40 mg 40 mg 1X ONCE IVP Last administered on 08/03/16 10: 06; Start 08/03/16 at 08:00; Stop 08/03/16 at 08:01; Status DC Daptomycin/Sodium Chloride (Cubicin/Iv Sodium Chloride 0.9% 50ml) 50 ml @ 100 mls/hr Q24H IV Last administered on 08/04/16 10:03; Start 08/04/16 at 10:00; Stop 08/04/16 at 10:33; Status DC Lorazepam (Ativan) 0.5 mg PRN Q6HRS PRN IV ANXIETY / AGITATION Last administered on 08/04/16 09:12; Start 08/03/16 at 11:15; Stop 08/07/16 at 11:02 ; Status DC Lorazepam (Ativan) 0.5 mg 1X ONCE IV Last administered on 08/04/16 10:00; Start 08/04/16 at 10:00; Stop 08/04/16 at 10:01; Status DC Morphine Sulfate 5 mg 1X ONCE IV Last administered on 08/04/16 10:00; Start 08/04/16 at 10:00; Stop 08/04/16 at 10:01; Status DC Lorazepam 0.5 mg 0.5 mg PRN Q4HRS PRN IV ANXIETY / AGITATION Last administered on 08/10/16 22:28; Start 08/04/16 at 10:00 Nafcillin Sodium 2 gm/Sodium Chloride 100 ml @ 200 mls/hr Q4HRS IV Last administered on 08/09/16 10:10; Start 08/04/16 at 12:00; Stop 08/09/16 at 11:49 ; Status DC Propofol (Diprivan) 100 ml @ As Directed STK-MED ONCE IV ; Start 08/04/16 at 16 :10; Stop 08/04/16 at 16:11; Status DC Succinylcholine Chloride (Anectine) 200 mg STK-MED ONCE .ROUTE ; Start 08/04/16 at 16:14; Stop 08/04/16 at 16:15; Status DC Succinylcholine Chloride 200 mg 200 mg 1X ONCE IV ; Start 08/04/16 at 16:45; Stop 08/04/16 at 16:46; Status DC Propofol (Diprivan) 100 ml @ 0 mls/hr CONT PRN IV SEE I/O RECORD Last administered on 08/15/16 06:25; Start 08/04/16 at 16:45 Lorazepam (Ativan) 0.5 mg 1X ONCE IV Last administered on 08/04/16 16:45; Start 08/04/16 at 16:45; Stop 08/04/16 at 16:46; Status DC Morphine Sulfate 5 mg 5 mg 1X ONCE IV Last administered on 08/04/16 16:44; Start 08/04/16 at 16:45; Stop 08/04/16 at 16:46; Status DC Fentanyl Citrate (Fentanyl 600 Mcg/30 ml SUPERVISOR [employer]OWER [employer]ACTOR) 30 ml @ 0 mls/hr CONT PRN IV PROTOCOL Last administered on 08/15/16 05:55; Start 08/04/16 at 16:45 Chlorhexidine Gluconate (Peridex) 15 ml BID MM Last administered on 08/15/16 08:13; Start 08/04/16 at 21:00 Famotidine 20 mg 20 mg BID IVP Last administered on 08/15/16 08:13; Start at 17:00 Sodium Chloride (Iv Sodium Chloride 0.9% 1000ml Bag) 1,000 ml @ 100 mls/hr Q10H IV Last administered on 08/07/16 04:35; Start 08/05/16 at 09:00; Stop at 08:59; Status DC Succinylcholine Chloride (Anectine) 200 mg STK-MED ONCE .ROUTE ; Start 08/04/16 at 16:00; Stop 08/05/16 at 12:32; Status DC Lorazepam (Ativan) 2 mg 1X ONCE IV Last administered on 08/05/16 20:43; Start 08/05/16 at 21:00; Stop 08/05/16 at 21:01; Status DC Furosemide (Lasix) 40 mg 1X PRN PRN IV blood transfusion Last administered on 14:17; Start 08/06/16 at 08:00; Stop 08/07/16 at 07:59; Status DC Sodium Bicarbonate 50 meq 1X ONCE IV Last administered on 08/06/16 14:06; Start 08/06/16 at 12:00; Stop 08/06/16 at 12:01; Status DC Calcium Chloride 1,000 mg STK-MED ONCE IV ; Start 08/04/16 at 12:00; Stop at 15:13; Status DC Epinephrine HCl (Epinephrine Syringe) 2 mg STK-MED ONCE .ROUTE ; Start 08/04/16 at 12:00; Stop 08/06/16 at 15:13; Status DC Sodium Bicarbonate 100 meq 100 meq STK-MED ONCE .ROUTE ; Start 08/04/16 at 12:00 ; Stop 08/06/16 at 15:13; Status DC Amino Acids/ Glycerin/ Electrolytes (Procalamine) 1,000 ml @ 100 mls/hr Q10H IV Last administered on 08/08/16 12:33; Start 08/07/16 at 10:00; Stop at 09:42; Status DC Enoxaparin Sodium (Lovenox 40mg Syringe) 40 mg Q24H SQ Last administered on 13:10; Start 08/07/16 at 13:00; Stop 08/10/16 at 10:43; Status DC Vecuronium Causey (Norcuron Bolus) 10 mg STK-MED ONCE IV ; Start 08/07/16 at 13 :56; Stop 08/07/16 at 13:57; Status DC Vecuronium Causey (Norcuron Bolus) 6 mg 1X ONCE IV Last administered on 14:06; Start 08/07/16 at 14:00; Stop 08/07/16 at 14:05; Status DC Sodium Bicarbonate 50 meq 1X ONCE IV Last administered on 08/08/16 11:46; Start 08/08/16 at 11:45; Stop 08/08/16 at 11:46; Status DC Nystatin 1 james 1 james BID TP Last administered on 08/15/16 08:14; Start at 21:00 Linezolid 300 ml @ 300 mls/hr Q12HR IV Last administered on 08/14/16 20:51; Start 08/09/16 at 09:00; Stop 08/15/16 at 07:21; Status DC Sodium Chloride 1,000 ml @ 50 mls/hr Q20H IV Last administered on 08/15/16 08 :29; Start 08/09/16 at 09:45 Sodium Bicarbonate/ Dextrose 1,150 ml @ 100 mls/hr 1X ONCE IV Last administered on 08/09/16 12:25; Start 08/09/16 at 11:30; Stop 08/09/16 at 22:59 ; Status DC Piperacillin Sod/ Tazobactam Sod 1 each 1 each PRN DAILY PRN MC SEE COMMENTS; Start 08/09/16 at 12:00; Stop 08/14/16 at 07:40; Status DC Piperacillin Sod/ Tazobactam Sod/ Sodium Chloride (Zosyn/Iv Sodium Chloride 0.9 % 100ml) 100 ml @ 200 mls/hr Q6HRS IV Last administered on 08/14/16 05:58; Start 08/09/16 at 12:30; Stop 08/14/16 at 07:33; Status DC Vecuronium Causey 5 mg 5 mg PRN Q4HRS PRN IV INCREASED RESPIRATORY,NOT RELI Last administered on 08/11/16 02:56; Start 08/09/16 at 13:30 Potassium Chloride 50 ml @ 100 mls/hr Q1H IV ; Start 08/10/16 at 09:30; Stop at 10:59; Status Cancel Potassium Chloride (KCl Premix 10meq) 100 ml @ 100 mls/hr Q1H IV Last administered on 08/10/16 16:28; Start 08/10/16 at 10:30; Stop 08/10/16 at 14:29 ; Status DC Potassium Chloride 60 meq 60 meq 1X ONCE PEG Last administered on 08/10/16 11 :16; Start 08/10/16 at 11:00; Stop 08/10/16 at 11:01; Status DC Sodium Bicarbonate/ Dextrose 1,150 ml @ 100 mls/hr [id number] IV Last administered on 08/10/16 11:14; Start 08/10/16 at 11:00; Stop 08/10/16 at 22:29 ; Status DC Enoxaparin Sodium 40 mg 40 mg Q24H SQ ; Start 08/10/16 at 13:00; Stop 08/10/16 at 13:00; Status DC Micafungin Sodium/ Dextrose (Mycamine) 100 ml @ 100 mls/hr Q24H IV Last administered on 08/13/16 16:26; Start 08/11/16 at 16:00; Stop 08/14/16 at 07:33 ; Status DC Furosemide (Lasix) 40 mg 1X ONCE IVP Last administered on 08/12/16 08:38; Start 08/12/16 at 08:00; Stop 08/12/16 at 08:06; Status DC Morphine Sulfate 1 mg 1 mg PRN Q10MIN PRN IV SEVERE PAIN; Start 08/13/16 at 07: 00; Stop 08/14/16 at 06:59; Status DC Lactated Ringer's (Iv Lactated Ringers) 1,000 ml @ 0 mls/hr Q0M IV ; Start at 07:00; Stop 08/13/16 at 18:59; Status DC Lidocaine HCl 2 ml PRN 1X PRN ID PRIOR TO IV START; Start 08/13/16 at 07:00; Stop 08/14/16 at 06:59; Status DC Hydromorphone HCl (Dilaudid) 0.5 mg PRN Q10MIN PRN IV SEV PAIN, Second choice; Start 08/13/16 at 07:00; Stop 08/14/16 at 06:59; Status DC Prochlorperazine Edisylate (Compazine) 5 mg PACU PRN PRN IV NAUSEA, MRX1; Start 08/13/16 at 07:00; Stop 08/14/16 at 06:59; Status DC Morphine Sulfate 1 mg 1 mg PRN Q10MIN PRN IV SEVERE PAIN; Start 08/13/16 at 07: 00; Stop 08/14/16 at 06:59; Status DC Lactated Ringer's (Iv Lactated Ringers) 1,000 ml @ 0 mls/hr Q0M IV ; Start at 07:00; Stop 08/13/16 at 18:59; Status DC Lidocaine HCl 2 ml PRN 1X PRN ID PRIOR TO IV START; Start 08/13/16 at 07:00; Stop 08/14/16 at 06:59; Status DC Hydromorphone HCl (Dilaudid) 0.5 mg PRN Q10MIN PRN IV SEV PAIN, Second choice; Start 08/13/16 at 07:00; Stop 08/14/16 at 06:59; Status DC Prochlorperazine Edisylate 5 mg 5 mg PACU PRN PRN IV NAUSEA, MRX1; Start at 07:00; Stop 08/14/16 at 06:59; Status DC Potassium Chloride (KCl Premix 20meq) 50 ml @ 50 mls/hr Q1H IV Last administered on 08/13/16 07:57; Start 08/13/16 at 07:00; Stop 08/13/16 at 08:59 ; Status DC Rocuronium Causey 50 mg 50 mg STK-MED ONCE .ROUTE ; Start 08/13/16 at 12:50; Stop 08/13/16 at 12:51; Status DC Propofol (Diprivan) 20 ml @ As Directed STK-MED ONCE IV ; Start 08/13/16 at 12: 53; Stop 08/13/16 at 12:54; Status DC Sevoflurane 30 ml 30 ml STK-MED ONCE IH ; Start 08/13/16 at 14:04; Stop at 14:05; Status DC Albumin Human 250 ml @ 100 mls/hr 1X ONCE IV Last administered on 08/13/16 23:38; Start 08/13/16 at 18:00; Stop 08/13/16 at 20:29; Status DC Albumin Human 500 ml @ 100 mls/hr 1X ONCE IV Last administered on 08/13/16 18:15; Start 08/13/16 at 18:00; Stop 08/13/16 at 22:59; Status DC Potassium Chloride 50 ml @ 50 mls/hr Q1H IV Last administered on 08/14/16 10: 46; Start 08/14/16 at 08:00; Stop 08/14/16 at 09:59; Status DC Nafcillin Sodium/ Sodium Chloride (Iv Sodium Chloride 0.9% 100ml) 100 ml @ 200 mls/hr Q4HRS IV Last administered on 08/15/16 12:24; Start 08/14/16 at 08:00 Enoxaparin Sodium (Lovenox 40mg Syringe) 40 mg Q24H SQ Last administered on 15:28; Start 08/14/16 at 12:00 Active Scripts Active Reported No Known Medications Prior To Admisstion (Info) Each 1 Each Vitals/I & O Vital Sign - Last 24 Hours 08/14/16 08/14/16 08/14/16 08/14/16 13:00 13:15 14:00 15:00 Pulse 110 106 102 Resp 31 28 B/P 115/66 112/61 107/58 Pulse Ox 99 100 100 100 O2 Delivery Ventilator Ventilator Ventilator Ventilator 08/14/16 08/14/16 08/14/16 08/14/16 15:17 15:30 16:00 16:00 Temp 99.4 99.4 Pulse 102 Resp 23 B/P 93/53 Pulse Ox 100 100 100 O2 Delivery Ventilator Ventilator Mechanical Ventilator Ventilator 08/14/16 08/14/16 08/14/16 08/14/16 17:00 17:30 18:00 19:00 Pulse 102 101 98 Resp 25 28 25 B/P 100/59 100/62 94/47 Pulse Ox 100 100 100 100 O2 Delivery Ventilator Ventilator Ventilator Ventilator 08/14/16 08/14/16 08/14/16 08/14/16 20:00 20:00 20:10 20:12 Temp 98.7 98.7 Pulse 100 Resp 26 B/P 93/49 Pulse Ox 100 100 100 O2 Delivery Mechanical Ventilator Ventilator Ventilator Ventilator 08/14/16 08/14/16 08/14/16 08/14/16 21:00 22:00 23:00 23:00 Pulse 100 96 90 Resp 25 22 22 23 B/P 98/52 90/54 89/47 Pulse Ox 100 100 100 100 O2 Delivery Ventilator Ventilator Ventilator Ventilator 08/14/16 08/15/16 08/15/16 08/15/16 23:17 00:00 00:00 00:52 Temp 97.6 97.6 Pulse 94 Resp 25 B/P 95/51 Pulse Ox 100 100 100 O2 Delivery Ventilator Mechanical Ventilator Ventilator Ventilator 08/15/16 08/15/16 08/15/16 08/15/16 01:00 02:00 03:00 03:15 Pulse 100 96 96 Resp 26 24 25 B/P 84/51 90/46 87/49 Pulse Ox 100 100 100 100 O2 Delivery Ventilator Ventilator Ventilator Ventilator 08/15/16 08/15/16 08/15/16 08/15/16 04:00 04:00 05:00 05:52 Temp 98.5 98.5 Pulse 98 97 Resp 25 23 B/P 84/47 86/50 Pulse Ox 100 100 100 O2 Delivery Ventilator Mechanical Ventilator Ventilator Ventilator 08/15/16 08/15/16 08/15/16 08/15/16 05:55 06:00 06:34 07:00 Pulse 98 92 Resp 23 26 24 23 B/P 89/49 88/46 Pulse Ox 100 100 100 100 O2 Delivery Ventilator Ventilator Ventilator Ventilator 08/15/16 08/15/16 08/15/16 08/15/16 07:52 08:00 08:00 09:00 Temp 98.4 98.4 Pulse 96 99 Resp 28 26 B/P 92/48 98/51 Pulse Ox 100 99 100 O2 Delivery Ventilator Mechanical Ventilator Ventilator Ventilator 08/15/16 08/15/16 09:53 11:45 Pulse Ox 99 98 O2 Delivery Ventilator Ventilator Intake and Output 08/14/16 08/14/16 08/15/16 15:00 23:00 07:00 Intake Total 160 ml 2057 ml 1748 ml Output Total 575 ml 410 ml 210 ml Balance -415 ml 1647 ml 1538 ml Assessment Stable post-PEG; tolerating tube feedings. Plan of Care: Continue current Tx, RICHAR Kelly MD Aug 15, 2016 12:27
[2016-08-15] MEDS: ENOXAPARIN 40 MG/0.4 ML SYRINGE. SQ SCH (12:30)
[2016-08-15 15:38] LABS: HCO3 ABG 20 mmol/L (21-28); PCO2 ABG 29 mmHg (35-46); PH ABG 7.46 (7.35-7.45); PO2 ABG 96 mmHg (75-108); SAT O2 ABG 98 % (92-99)
[2016-08-15 18:21] LABS: FIO2 ABG 35
--- NOTE | 2016-08-15 19:14 | PDOC ---
PULMONARY PROGRESS NOTES Subjective s/p trach no distress Vitals Vital Signs Date Time Temp Pulse Resp B/P Pulse Ox O2 Delivery O2 Flow Rate FiO2 08/15/16 18:00 104 29 92/51 100 Ventilator 08/15/16 16:00 100.1 100.1 Lungs: Clear, Other (No chest retractions were present.) Cardiovascular: S1, S2, Other Abdomen: Soft, Non-tender, Other (hepatomegaly) Extremities: Other (edema) Skin: Warm Labs Laboratory Tests Test 08/14/16 06:00 08/14/16 08:03 08/15/16 04:45 08/15/16 08:00 White Blood Count 9.5x10^3/uL (4.0-11.0) 13.0x10^3/uL (4.0-11.0) Red Blood Count 2.99x10^6/uL (3.50-5.40) 2.54x10^6/uL (3.50-5.40) Hemoglobin 8.9g/dL (12.0-15.5) 7.4g/dL (12.0-15.5) Hematocrit 25.9% (36.0-47.0) 22.4% (36.0-47.0) Mean Corpuscular Volume 87fL (79-100) 88fL (79-100) Mean Corpuscular Hemoglobin 30pg (25-35) 29pg (25-35) Mean Corpuscular Hemoglobin Concent 34g/dL (31-37) 33g/dL (31-37) Red Cell Distribution Width 15.9% (11.5-14.5) 16.1% (11.5-14.5) Platelet Count 163x10^3/uL (140-400) 227x10^3/uL (140-400) Neutrophils (%) (Auto) 80% (31-73) 79% (31-73) Lymphocytes (%) (Auto) 10% (24-48) 8% (24-48) Monocytes (%) (Auto) 9% (0-9) 9% (0-9) Eosinophils (%) (Auto) 1% (0-3) 3% (0-3) Basophils (%) (Auto) 1% (0-3) 1% (0-3) Neutrophils # (Auto) 7.6x10^3uL (1.8-7.7) 10.3x10^3uL (1.8-7.7) Lymphocytes # (Auto) 1.0x10^3/uL (1.0-4.8) 1.1x10^3/uL (1.0-4.8) Monocytes # (Auto) 0.8x10^3/uL (0.0-1.1) 1.1x10^3/uL (0.0-1.1) Eosinophils # (Auto) 0.1x10^3/uL (0.0-0.7) 0.4x10^3/uL (0.0-0.7) Basophils # (Auto) 0.1x10^3/uL (0.0-0.2) 0.1x10^3/uL (0.0-0.2) Sodium Level 134mmol/L (136-145) 132mmol/L (136-145) Potassium Level 2.9mmol/L (3.5-5.1) 3.1mmol/L (3.5-5.1) Chloride Level 102mmol/L (98-107) 103mmol/L (98-107) Carbon Dioxide Level 22mmol/L (21-32) 23mmol/L (21-32) Anion Gap 10 (6-14) 6 (6-14) Blood Urea Nitrogen 15mg/dL (7-20) 16mg/dL (7-20) Creatinine 0.8mg/dL (0.6-1.0) 0.8mg/dL (0.6-1.0) Estimated GFR (Cockcroft-Gault) 78.7 78.7 Glucose Level 93mg/dL (70-99) 123mg/dL (70-99) Calcium Level 7.4mg/dL (8.5-10.1) 7.5mg/dL (8.5-10.1) O2 Saturation 97% (92-99) 98% (92-99) Arterial Blood pH 7.46 (7.35-7.45) 7.46 (7.35-7.45) Arterial Blood pCO2 at Patient Temp 25mmHg (35-46) 27mmHg (35-46) Arterial Blood pO2 at Patient Temp 97mmHg (75-108) 109mmHg (75-108) Arterial Blood HCO3 17mmol/L (21-28) 19mmol/L (21-28) Arterial Blood Base Excess -6mmol/L (-3-3) -4mmol/L (-3-3) FiO2 35 35 Test 08/15/16 15:35 O2 Saturation 98% (92-99) Arterial Blood pH 7.46 (7.35-7.45) Arterial Blood pCO2 at Patient Temp 29mmHg (35-46) Arterial Blood pO2 at Patient Temp 96mmHg (75-108) Arterial Blood HCO3 20mmol/L (21-28) Arterial Blood Base Excess -3mmol/L (-3-3) FiO2 35 Laboratory Tests Test 08/15/16 04:45 08/15/16 08:00 08/15/16 15:35 White Blood Count 13.0x10^3/uL (4.0-11.0) Red Blood Count 2.54x10^6/uL (3.50-5.40) Hemoglobin 7.4g/dL (12.0-15.5) Hematocrit 22.4% (36.0-47.0) Mean Corpuscular Volume 88fL (79-100) Mean Corpuscular Hemoglobin 29pg (25-35) Mean Corpuscular Hemoglobin Concent 33g/dL (31-37) Red Cell Distribution Width 16.1% (11.5-14.5) Platelet Count 227x10^3/uL (140-400) Neutrophils (%) (Auto) 79% (31-73) Lymphocytes (%) (Auto) 8% (24-48) Monocytes (%) (Auto) 9% (0-9) Eosinophils (%) (Auto) 3% (0-3) Basophils (%) (Auto) 1% (0-3) Neutrophils # (Auto) 10.3x10^3uL (1.8-7.7) Lymphocytes # (Auto) 1.1x10^3/uL (1.0-4.8) Monocytes # (Auto) 1.1x10^3/uL (0.0-1.1) Eosinophils # (Auto) 0.4x10^3/uL (0.0-0.7) Basophils # (Auto) 0.1x10^3/uL (0.0-0.2) Sodium Level 132mmol/L (136-145) Potassium Level 3.1mmol/L (3.5-5.1) Chloride Level 103mmol/L (98-107) Carbon Dioxide Level 23mmol/L (21-32) Anion Gap 6 (6-14) Blood Urea Nitrogen 16mg/dL (7-20) Creatinine 0.8mg/dL (0.6-1.0) Estimated GFR (Cockcroft-Gault) 78.7 Glucose Level 123mg/dL (70-99) Calcium Level 7.5mg/dL (8.5-10.1) O2 Saturation 98% (92-99) 98% (92-99) Arterial Blood pH 7.46 (7.35-7.45) 7.46 (7.35-7.45) Arterial Blood pCO2 at Patient Temp 27mmHg (35-46) 29mmHg (35-46) Arterial Blood pO2 at Patient Temp 109mmHg (75-108) 96mmHg (75-108) Arterial Blood HCO3 19mmol/L (21-28) 20mmol/L (21-28) Arterial Blood Base Excess -4mmol/L (-3-3) -3mmol/L (-3-3) FiO2 35 35 Medications Active Scripts Medications Dose Route/Sig Days Date Category No Known Medications Prior To Admisstion (Info) Each 1 Each 08/06/16 Reported Impression . 1. Acute hypoxemic respiratory failure, multifactorial in etiology I think she will wean with time. 2. Continues to fail CPAP. will need Trach 3. Bilateral pulmonary nodules with cavitation, due to septic emboli. 4. Endocarditis. right sided, improving vegetations 5. ? chronic obstructive pulmonary disease. 6. Leukocytosis./fever 7. Anemia. 8. Thrombocytopenia. off lovenox 10. Intravenous drug abuse. 11. Tobacco habituation. 12. MSSA septicemia/pneumonia/ CHF today Plan . AC mode, wean as tolerated pt is doing fine on PS, she will wean with time s/p trach ct head/ chest reviewed Bronch with MSSA, antibiotics per ID ANGIE CARBAJAL MD Aug 15, 2016 19:14
[2016-08-16] VITALS (31 sets, daily range): BP systolic 83–108; BP diastolic 44–60
[2016-08-16] MEDS: NAFCILLIN 2 GM in IV NORMAL SALINE 100ML 100 ML IV SCH ×7 (00:02→23:52)
[2016-08-16] MEDS: PROPOFOL 100 ML IV PRN ×4 (01:33→21:01)
[2016-08-16] MEDS: IV 1/2 NORMAL SALINE 1,000 ML IV SCH ×2 (04:16→23:52)
[2016-08-16 05:16] LABS: BASO # 0.1 x10^3/uL (0.0-0.2); BASO % 1 % (0-3); EOS % 3 % (0-3); LYMPH # 1.1 x10^3/uL (1.0-4.8); LYMPH % 10 % (24-48); MEAN CORPUSCULAR HEMOGLOBIN 29 pg (25-35); MEAN CORPUSCULAR HGB CONC 33 g/dL (31-37); MEAN CORPUSCULAR VOLUME 88 fL (79-100); MONO % 8 % (0-9); NEUT % 78 % (31-73); PLATELET COUNT 237 x10^3/uL (140-400); RED BLOOD COUNT 2.28 x10^6/uL (3.50-5.40); RED CELL DISTRIBUTION WIDTH 16.3 % (11.5-14.5); WHITE BLOOD COUNT 11.5 x10^3/uL (4.0-11.0)
[2016-08-16 05:20] LABS: HEMATOCRIT 20.1 % (36.0-47.0); HEMOGLOBIN 6.7 g/dL (12.0-15.5)
[2016-08-16 05:44] LABS: CALCIUM 7.2 mg/dL (8.5-10.1); CREATININE 0.9 mg/dL (0.6-1.0); GFR 68.7
[2016-08-16 05:47] LABS: POTASSIUM 2.8 mmol/L (3.5-5.1)
[2016-08-16] MEDS ORDERED: POTASSIUM CHLORIDE 20 MEQ/15 ML ORAL LIQUID. PEG ONE ×2 (07:00→12:00)
[2016-08-16] MEDS: FAMOTIDINE 20 MG/2 ML VIAL IVP SCH ×2 (07:54→21:01)
[2016-08-16] MEDS: NYSTATIN TOPICAL POWDER 15GM BOTTLE. TP SCH ×2 (07:55→21:02)
[2016-08-16] MEDS: CHLORHEXIDINE 0.12% 15 ML MOUTHWASH. MM SCH ×2 (07:55→21:00)
[2016-08-16] MEDS: BUDESONIDE 0.5 MG/2 ML NEBU. NEB SCH ×2 (08:07→19:43)
[2016-08-16] MEDS: IPRATRPIUM/ALBUTEROL 0.5/2.5MG 3 ML NEBU. NEB SCH ×4 (08:07→19:43)
--- NOTE | 2016-08-16 08:33 | RAD ---
Portable chest, 08/16/2016: History: Respiratory failure Comparison is made yesterday study. The left PICC and tracheostomy tube are unchanged in positions. The heart is within normal limits in size. Moderate bibasilar opacities persists, compatible with a combination of pleural fluid and infiltrate. There is loss of vascular margination. The patient's known cavitary pulmonary nodules are partially obscured by the pulmonary infiltrates. These chest opacities have worsened slightly over the last 2 days. IMPRESSION: 1. Slowly worsening pulmonary opacities compatible with infiltrate and moderate-sized pleural effusions probably representing a combination of pulmonary edema and pneumonia. 2. Underlying cavitary nodules are again noted, compatible with septic emboli.
--- NOTE | 2016-08-16 10:21 | PDOC ---
Infectious Disease Note Subjective Subjective Remains intubated via tr On sedation Getting blood transfusion Low-grade fevers Tube feedings Diarrhea ROS ROS unable to do Vital Sign Vital Signs Vital Signs Date Time Temp Pulse Resp B/P Pulse Ox O2 Delivery O2 Flow Rate FiO2 08/16/16 09:52 100.5 100 28 96/51 100.5 08/16/16 08:00 100 Ventilator Physical Exam PHYSICAL EXAM GENERAL: Awake, calm NECK: Trach, + secretions LUNGS: Rhonchi HEART: S1S2 ABD: Mildly distended, soft, BS present. : [place] EXT: No edema, no cyanosis CREATIVE SERVICES SPECIALIST: Awake SKIN: No rash LUE-PICC. Labs Lab Laboratory Tests Test 08/15/16 15:35 08/16/16 05:00 O2 Saturation 98% (92-99) Arterial Blood pH 7.46 (7.35-7.45) Arterial Blood pCO2 at Patient Temp 29mmHg (35-46) Arterial Blood pO2 at Patient Temp 96mmHg (75-108) Arterial Blood HCO3 20mmol/L (21-28) Arterial Blood Base Excess -3mmol/L (-3-3) FiO2 35 White Blood Count 11.5x10^3/uL (4.0-11.0) Red Blood Count 2.28x10^6/uL (3.50-5.40) Hemoglobin 6.7g/dL (12.0-15.5) Hematocrit 20.1% (36.0-47.0) Mean Corpuscular Volume 88fL (79-100) Mean Corpuscular Hemoglobin 29pg (25-35) Mean Corpuscular Hemoglobin Concent 33g/dL (31-37) Red Cell Distribution Width 16.3% (11.5-14.5) Platelet Count 237x10^3/uL (140-400) Neutrophils (%) (Auto) 78% (31-73) Lymphocytes (%) (Auto) 10% (24-48) Monocytes (%) (Auto) 8% (0-9) Eosinophils (%) (Auto) 3% (0-3) Basophils (%) (Auto) 1% (0-3) Neutrophils # (Auto) 9.0x10^3uL (1.8-7.7) Lymphocytes # (Auto) 1.1x10^3/uL (1.0-4.8) Monocytes # (Auto) 0.9x10^3/uL (0.0-1.1) Eosinophils # (Auto) 0.4x10^3/uL (0.0-0.7) Basophils # (Auto) 0.1x10^3/uL (0.0-0.2) Sodium Level 133mmol/L (136-145) Potassium Level 2.8mmol/L (3.5-5.1) Chloride Level 103mmol/L (98-107) Carbon Dioxide Level 21mmol/L (21-32) Anion Gap 9 (6-14) Blood Urea Nitrogen 17mg/dL (7-20) Creatinine 0.9mg/dL (0.6-1.0) Estimated GFR (Cockcroft-Gault) 68.7 Glucose Level 116mg/dL (70-99) Calcium Level 7.2mg/dL (8.5-10.1) Magnesium Level 1.6mg/dL (1.8-2.4) CXR IMPRESSION: 1. Slowly worsening pulmonary opacities compatible with infiltrate and moderate-sized pleural effusions probably representing a combination of pulmonary edema and pneumonia. 2. Underlying cavitary nodules are again noted, compatible with septic emboli. Objective Assessment Fever Acute anemia S/p Trach/PEG 08/13 MSSA sepsis 08/01 ([facility]) -Repeat BC positive, 08/05 & 08/07. Neg 08/09 Right-sided bacterial endocarditis. -TTE. 3.0 x 2.0cm mobile mass TV Multiple pulmonary nodules/septic emboli Acute Resp failure - Intubated ? developing ARDS. S/p Bronch 08/08. MSSA IV drug use. Hep C Ileus Renal insufficiency. Severe thrombocytopenia. improved Hepatosplenomegaly on CT Plan Plan of Care Continue Nafcillin Monitor WBC, temp Supportive care Critically ill Attending Co-Sign The patient was seen and interviewed as well as examined at the bedside. The chart was reviewed. The case was discussed. Agree with the plan of care. JAZMIN SOUSA APRN Aug 16, 2016 10:21 MARSHA MORFIN MD Aug 16, 2016 14:33
--- NOTE | 2016-08-16 11:27 | PDOC ---
Objective: Objective: Seen earlier while working w/ therapy. Per RN - some blood w/ trach suctioning. 9 stools charted. Vital Signs: Vital Signs Date Time Temp Pulse Resp B/P Pulse Ox O2 Delivery O2 Flow Rate FiO2 08/16/16 11:00 94 33 98/54 99 Ventilator 08/16/16 10:07 100.1 100.1 Labs: Laboratory Tests Test 08/15/16 15:35 08/16/16 05:00 O2 Saturation 98% Arterial Blood pH 7.46 Arterial Blood pCO2 at Patient Temp 29mmHg Arterial Blood pO2 at Patient Temp 96mmHg Arterial Blood HCO3 20mmol/L Arterial Blood Base Excess -3mmol/L FiO2 35 White Blood Count 11.5x10^3/uL Red Blood Count 2.28x10^6/uL Hemoglobin 6.7g/dL Hematocrit 20.1% Mean Corpuscular Volume 88fL Mean Corpuscular Hemoglobin 29pg Mean Corpuscular Hemoglobin Concent 33g/dL Red Cell Distribution Width 16.3% Platelet Count 237x10^3/uL Neutrophils (%) (Auto) 78% Lymphocytes (%) (Auto) 10% Monocytes (%) (Auto) 8% Eosinophils (%) (Auto) 3% Basophils (%) (Auto) 1% Neutrophils # (Auto) 9.0x10^3uL Lymphocytes # (Auto) 1.1x10^3/uL Monocytes # (Auto) 0.9x10^3/uL Eosinophils # (Auto) 0.4x10^3/uL Basophils # (Auto) 0.1x10^3/uL Sodium Level 133mmol/L Potassium Level 2.8mmol/L Chloride Level 103mmol/L Carbon Dioxide Level 21mmol/L Anion Gap 9 Blood Urea Nitrogen 17mg/dL Creatinine 0.9mg/dL Estimated GFR (Cockcroft-Gault) 68.7 Glucose Level 116mg/dL Calcium Level 7.2mg/dL Magnesium Level 1.6mg/dL PE: GEN: NAD LUNGS: trach HEART: RRR ABD: PEG looks okay, seems non-tender NEURO/PSYCH: awake A/P: S/p PEG -tolerating tube feeds Anemia -no GI bleeding per staff, transfusion ordered -on Pepcid Hep C Diarrhea -C Diff neg 08/10 -- Other per Dr. Peraza. ORQUIDEA ELIZABETH Aug 16, 2016 11:27
--- NOTE | 2016-08-16 13:27 | PDOC ---
PULMONARY PROGRESS NOTES Subjective s/p trach no distress Vitals Vital Signs Date Time Temp Pulse Resp B/P Pulse Ox O2 Delivery O2 Flow Rate FiO2 08/16/16 12:34 100 Ventilator 08/16/16 12:23 98.9 95 34 101/59 98.9 Lungs: Clear, Other (No chest retractions were present.) Cardiovascular: S1, S2, Other Abdomen: Soft, Non-tender, Other (hepatomegaly) Extremities: Other (edema) Skin: Warm Labs Laboratory Tests Test 08/15/16 04:45 08/15/16 08:00 08/15/16 15:35 08/16/16 05:00 White Blood Count 13.0x10^3/uL (4.0-11.0) 11.5x10^3/uL (4.0-11.0) Red Blood Count 2.54x10^6/uL (3.50-5.40) 2.28x10^6/uL (3.50-5.40) Hemoglobin 7.4g/dL (12.0-15.5) 6.7g/dL (12.0-15.5) Hematocrit 22.4% (36.0-47.0) 20.1% (36.0-47.0) Mean Corpuscular Volume 88fL (79-100) 88fL (79-100) Mean Corpuscular Hemoglobin 29pg (25-35) 29pg (25-35) Mean Corpuscular Hemoglobin Concent 33g/dL (31-37) 33g/dL (31-37) Red Cell Distribution Width 16.1% (11.5-14.5) 16.3% (11.5-14.5) Platelet Count 227x10^3/uL (140-400) 237x10^3/uL (140-400) Neutrophils (%) (Auto) 79% (31-73) 78% (31-73) Lymphocytes (%) (Auto) 8% (24-48) 10% (24-48) Monocytes (%) (Auto) 9% (0-9) 8% (0-9) Eosinophils (%) (Auto) 3% (0-3) 3% (0-3) Basophils (%) (Auto) 1% (0-3) 1% (0-3) Neutrophils # (Auto) 10.3x10^3uL (1.8-7.7) 9.0x10^3uL (1.8-7.7) Lymphocytes # (Auto) 1.1x10^3/uL (1.0-4.8) 1.1x10^3/uL (1.0-4.8) Monocytes # (Auto) 1.1x10^3/uL (0.0-1.1) 0.9x10^3/uL (0.0-1.1) Eosinophils # (Auto) 0.4x10^3/uL (0.0-0.7) 0.4x10^3/uL (0.0-0.7) Basophils # (Auto) 0.1x10^3/uL (0.0-0.2) 0.1x10^3/uL (0.0-0.2) Sodium Level 132mmol/L (136-145) 133mmol/L (136-145) Potassium Level 3.1mmol/L (3.5-5.1) 2.8mmol/L (3.5-5.1) Chloride Level 103mmol/L (98-107) 103mmol/L (98-107) Carbon Dioxide Level 23mmol/L (21-32) 21mmol/L (21-32) Anion Gap 6 (6-14) 9 (6-14) Blood Urea Nitrogen 16mg/dL (7-20) 17mg/dL (7-20) Creatinine 0.8mg/dL (0.6-1.0) 0.9mg/dL (0.6-1.0) Estimated GFR (Cockcroft-Gault) 78.7 68.7 Glucose Level 123mg/dL (70-99) 116mg/dL (70-99) Calcium Level 7.5mg/dL (8.5-10.1) 7.2mg/dL (8.5-10.1) O2 Saturation 98% (92-99) 98% (92-99) Arterial Blood pH 7.46 (7.35-7.45) 7.46 (7.35-7.45) Arterial Blood pCO2 at Patient Temp 27mmHg (35-46) 29mmHg (35-46) Arterial Blood pO2 at Patient Temp 109mmHg (75-108) 96mmHg (75-108) Arterial Blood HCO3 19mmol/L (21-28) 20mmol/L (21-28) Arterial Blood Base Excess -4mmol/L (-3-3) -3mmol/L (-3-3) FiO2 35 35 Magnesium Level 1.6mg/dL (1.8-2.4) Laboratory Tests Test 08/15/16 15:35 08/16/16 05:00 O2 Saturation 98% (92-99) Arterial Blood pH 7.46 (7.35-7.45) Arterial Blood pCO2 at Patient Temp 29mmHg (35-46) Arterial Blood pO2 at Patient Temp 96mmHg (75-108) Arterial Blood HCO3 20mmol/L (21-28) Arterial Blood Base Excess -3mmol/L (-3-3) FiO2 35 White Blood Count 11.5x10^3/uL (4.0-11.0) Red Blood Count 2.28x10^6/uL (3.50-5.40) Hemoglobin 6.7g/dL (12.0-15.5) Hematocrit 20.1% (36.0-47.0) Mean Corpuscular Volume 88fL (79-100) Mean Corpuscular Hemoglobin 29pg (25-35) Mean Corpuscular Hemoglobin Concent 33g/dL (31-37) Red Cell Distribution Width 16.3% (11.5-14.5) Platelet Count 237x10^3/uL (140-400) Neutrophils (%) (Auto) 78% (31-73) Lymphocytes (%) (Auto) 10% (24-48) Monocytes (%) (Auto) 8% (0-9) Eosinophils (%) (Auto) 3% (0-3) Basophils (%) (Auto) 1% (0-3) Neutrophils # (Auto) 9.0x10^3uL (1.8-7.7) Lymphocytes # (Auto) 1.1x10^3/uL (1.0-4.8) Monocytes # (Auto) 0.9x10^3/uL (0.0-1.1) Eosinophils # (Auto) 0.4x10^3/uL (0.0-0.7) Basophils # (Auto) 0.1x10^3/uL (0.0-0.2) Sodium Level 133mmol/L (136-145) Potassium Level 2.8mmol/L (3.5-5.1) Chloride Level 103mmol/L (98-107) Carbon Dioxide Level 21mmol/L (21-32) Anion Gap 9 (6-14) Blood Urea Nitrogen 17mg/dL (7-20) Creatinine 0.9mg/dL (0.6-1.0) Estimated GFR (Cockcroft-Gault) 68.7 Glucose Level 116mg/dL (70-99) Calcium Level 7.2mg/dL (8.5-10.1) Magnesium Level 1.6mg/dL (1.8-2.4) Medications Active Scripts Medications Dose Route/Sig Days Date Category No Known Medications Prior To Admisstion (Info) Each 1 Each 08/06/16 Reported Impression . 1. Acute hypoxemic respiratory failure, multifactorial in etiology I think she will wean with time. 2. Continues to fail CPAP. will need Trach 3. Bilateral pulmonary nodules with cavitation, due to septic emboli. 4. Endocarditis. right sided, improving vegetations 5. ? chronic obstructive pulmonary disease. 6. Leukocytosis./fever 7. Anemia. 8. Thrombocytopenia. off lovenox 10. Intravenous drug abuse. 11. Tobacco habituation. 12. MSSA septicemia/pneumonia/ CHF today Plan . DOING BETTER WILL CONTINUE TO WEAN WITH PS SHE SHOULD BE WEANABLE s/p trach ct head/ chest reviewed Bronch with MSSA, antibiotics per ID ANGIE CARBAJAL MD Aug 16, 2016 13:27
[2016-08-16] MEDS: ENOXAPARIN 40 MG/0.4 ML SYRINGE. SQ SCH (14:22)
--- NOTE | 2016-08-16 15:53 | PDOC ---
PROGRESS NOTES Chief Complaint Chief Complaint cc: septic emboli, IV drug use, respiratory failure. -Endocarditis -Resp failure on Vent - polysubstance abuse -Hep C, right -rotator cuff repair -Tobacco use -20lb weight loss over the last couple of months -Renal insufficiency -Pneumonia -Septic emboli -Anemia requiring transfusions History of Present Illness History of Present Illness Patient seen and evaluated at bedside. Patient is more alert, but limited in following commands. Overnight, patient required 1x transfusion of PRBCs with a hgb of 6.7 and her potassium levels dropped to 2.8 Remains on pressure support; per nursing, patient continues to be hypotensive and has loose stools. spontaneous / 22 f / 450 VT / 35% FiO2 / 14 of PS. O2 saturation of 96%. d/w nurse Vitals Vitals Vital Signs Date Time Temp Pulse Resp B/P Pulse Ox O2 Delivery O2 Flow Rate FiO2 08/16/16 13:30 99.9 104 32 104/58 99.9 08/16/16 12:34 100 Ventilator Physical Exam General: Alert (opens eyes spontaneously. able to follow some commands. ), No acute distress, Other (negative scleral icterus ) Heart: Regular rate, Normal S1, Normal S2 Lungs: Clear, Other (tracheastomy. diminished inspiratory effort. Negative chest retractions and/or other accessory muscle use. ) Abdomen: Normal bowel sounds, Soft, Other ((+) hepatomegaly. negative peritoneal signs. PEG tube in place without drainage or surrounding signs of infection. ) Extremities: No clubbing, No cyanosis, Other ((+) anasarca ) Skin: No rashes, No significant lesion Labs LABS Laboratory Tests Test 08/16/16 05:00 White Blood Count 11.5x10^3/uL (4.0-11.0) Red Blood Count 2.28x10^6/uL (3.50-5.40) Hemoglobin 6.7g/dL (12.0-15.5) Hematocrit 20.1% (36.0-47.0) Mean Corpuscular Volume 88fL (79-100) Mean Corpuscular Hemoglobin 29pg (25-35) Mean Corpuscular Hemoglobin Concent 33g/dL (31-37) Red Cell Distribution Width 16.3% (11.5-14.5) Platelet Count 237x10^3/uL (140-400) Neutrophils (%) (Auto) 78% (31-73) Lymphocytes (%) (Auto) 10% (24-48) Monocytes (%) (Auto) 8% (0-9) Eosinophils (%) (Auto) 3% (0-3) Basophils (%) (Auto) 1% (0-3) Neutrophils # (Auto) 9.0x10^3uL (1.8-7.7) Lymphocytes # (Auto) 1.1x10^3/uL (1.0-4.8) Monocytes # (Auto) 0.9x10^3/uL (0.0-1.1) Eosinophils # (Auto) 0.4x10^3/uL (0.0-0.7) Basophils # (Auto) 0.1x10^3/uL (0.0-0.2) Sodium Level 133mmol/L (136-145) Potassium Level 2.8mmol/L (3.5-5.1) Chloride Level 103mmol/L (98-107) Carbon Dioxide Level 21mmol/L (21-32) Anion Gap 9 (6-14) Blood Urea Nitrogen 17mg/dL (7-20) Creatinine 0.9mg/dL (0.6-1.0) Estimated GFR (Cockcroft-Gault) 68.7 Glucose Level 116mg/dL (70-99) Calcium Level 7.2mg/dL (8.5-10.1) Magnesium Level 1.6mg/dL (1.8-2.4) Review of Systems Review of Systems ROS limited secondary to patient remains on ventilator support with tracheostomy Assessment and Plan Assessmemt and Plan Assessment: 1.) septic shock with MSSA bactremia - Repeat BC positive, 08/05 & 08/07. Neg 08/09 2.) R-sided bacterial endocarditis, with septic emboli on CT 3.) acute respiratory failure - 08/08 bronchoscopy culture positive for MSSA 4.) IV drug use. 5.) Hep C 6.) [place], improved with fluids 7.) Severe thrombocytopenia, POA, WNL currently 8.) Acute anemia, requiring transfusions 9.) S/p Trach/PEG on the 08/13 10.) hypoalbuminemia, multifactorial - suspect liver dysfunction vs. malnutrition Plan: 1. Continue ICU monitoring and ventilatory support 2. monitor AM labs; replete electrolytes via PEG. monitor BMP especially K+ levels 3.maintain O2 saturation >90%. continue with duonebs and ICS. 4. wean zyvox and continue nafacillin, per ID 5. continue pain control. monitor for withdrawal symptoms. 6. Continue tube feeding; consider repletion of albumin. 7. DVT PPX: lovenox; GI ppx: famotidine. 8. maintain O2 saturation >90%. continue with duonebs and ICS. 9. Appreciate subspeciality input Prognosis is guarded Problems: Comment Review of Relevant I have reviewed the following items shanta (where applicable) has been applied. Labs Laboratory Tests Test 08/15/16 04:45 08/15/16 08:00 08/15/16 15:35 08/16/16 05:00 White Blood Count 13.0x10^3/uL (4.0-11.0) 11.5x10^3/uL (4.0-11.0) Red Blood Count 2.54x10^6/uL (3.50-5.40) 2.28x10^6/uL (3.50-5.40) Hemoglobin 7.4g/dL (12.0-15.5) 6.7g/dL (12.0-15.5) Hematocrit 22.4% (36.0-47.0) 20.1% (36.0-47.0) Mean Corpuscular Volume 88fL (79-100) 88fL (79-100) Mean Corpuscular Hemoglobin 29pg (25-35) 29pg (25-35) Mean Corpuscular Hemoglobin Concent 33g/dL (31-37) 33g/dL (31-37) Red Cell Distribution Width 16.1% (11.5-14.5) 16.3% (11.5-14.5) Platelet Count 227x10^3/uL (140-400) 237x10^3/uL (140-400) Neutrophils (%) (Auto) 79% (31-73) 78% (31-73) Lymphocytes (%) (Auto) 8% (24-48) 10% (24-48) Monocytes (%) (Auto) 9% (0-9) 8% (0-9) Eosinophils (%) (Auto) 3% (0-3) 3% (0-3) Basophils (%) (Auto) 1% (0-3) 1% (0-3) Neutrophils # (Auto) 10.3x10^3uL (1.8-7.7) 9.0x10^3uL (1.8-7.7) Lymphocytes # (Auto) 1.1x10^3/uL (1.0-4.8) 1.1x10^3/uL (1.0-4.8) Monocytes # (Auto) 1.1x10^3/uL (0.0-1.1) 0.9x10^3/uL (0.0-1.1) Eosinophils # (Auto) 0.4x10^3/uL (0.0-0.7) 0.4x10^3/uL (0.0-0.7) Basophils # (Auto) 0.1x10^3/uL (0.0-0.2) 0.1x10^3/uL (0.0-0.2) Sodium Level 132mmol/L (136-145) 133mmol/L (136-145) Potassium Level 3.1mmol/L (3.5-5.1) 2.8mmol/L (3.5-5.1) Chloride Level 103mmol/L (98-107) 103mmol/L (98-107) Carbon Dioxide Level 23mmol/L (21-32) 21mmol/L (21-32) Anion Gap 6 (6-14) 9 (6-14) Blood Urea Nitrogen 16mg/dL (7-20) 17mg/dL (7-20) Creatinine 0.8mg/dL (0.6-1.0) 0.9mg/dL (0.6-1.0) Estimated GFR (Cockcroft-Gault) 78.7 68.7 Glucose Level 123mg/dL (70-99) 116mg/dL (70-99) Calcium Level 7.5mg/dL (8.5-10.1) 7.2mg/dL (8.5-10.1) O2 Saturation 98% (92-99) 98% (92-99) Arterial Blood pH 7.46 (7.35-7.45) 7.46 (7.35-7.45) Arterial Blood pCO2 at Patient Temp 27mmHg (35-46) 29mmHg (35-46) Arterial Blood pO2 at Patient Temp 109mmHg (75-108) 96mmHg (75-108) Arterial Blood HCO3 19mmol/L (21-28) 20mmol/L (21-28) Arterial Blood Base Excess -4mmol/L (-3-3) -3mmol/L (-3-3) FiO2 35 35 Magnesium Level 1.6mg/dL (1.8-2.4) Laboratory Tests Test 08/16/16 05:00 White Blood Count 11.5x10^3/uL (4.0-11.0) Red Blood Count 2.28x10^6/uL (3.50-5.40) Hemoglobin 6.7g/dL (12.0-15.5) Hematocrit 20.1% (36.0-47.0) Mean Corpuscular Volume 88fL (79-100) Mean Corpuscular Hemoglobin 29pg (25-35) Mean Corpuscular Hemoglobin Concent 33g/dL (31-37) Red Cell Distribution Width 16.3% (11.5-14.5) Platelet Count 237x10^3/uL (140-400) Neutrophils (%) (Auto) 78% (31-73) Lymphocytes (%) (Auto) 10% (24-48) Monocytes (%) (Auto) 8% (0-9) Eosinophils (%) (Auto) 3% (0-3) Basophils (%) (Auto) 1% (0-3) Neutrophils # (Auto) 9.0x10^3uL (1.8-7.7) Lymphocytes # (Auto) 1.1x10^3/uL (1.0-4.8) Monocytes # (Auto) 0.9x10^3/uL (0.0-1.1) Eosinophils # (Auto) 0.4x10^3/uL (0.0-0.7) Basophils # (Auto) 0.1x10^3/uL (0.0-0.2) Sodium Level 133mmol/L (136-145) Potassium Level 2.8mmol/L (3.5-5.1) Chloride Level 103mmol/L (98-107) Carbon Dioxide Level 21mmol/L (21-32) Anion Gap 9 (6-14) Blood Urea Nitrogen 17mg/dL (7-20) Creatinine 0.9mg/dL (0.6-1.0) Estimated GFR (Cockcroft-Gault) 68.7 Glucose Level 116mg/dL (70-99) Calcium Level 7.2mg/dL (8.5-10.1) Magnesium Level 1.6mg/dL (1.8-2.4) Microbiology 08/09/16 Blood Culture - Final, Complete NO GROWTH AFTER 5 DAYS 08/08/16 AFB Specimen Processing Tissue - Final, Resulted 08/08/16 Acid Fast Bacilli Culture, Resulted Pending 08/08/16 Gram Stain - Final, Resulted 08/08/16 Fungal Culture, Resulted Pending 08/08/16 Fungal Culture Result 1, Resulted Pending Medications Current Medications Amino Acids/ Glycerin/ Electrolytes (Procalamine) 1,000 ml @ 100 mls/hr Q10H IV Last administered on 08/05/16 02:40; Start 08/02/16 at 03:00; Stop at 08:50; Status DC Morphine Sulfate 2 mg 2 mg PRN Q2HR PRN IV SEVERE PAIN Last administered on 11:59; Start 08/02/16 at 02:30; Stop 08/02/16 at 13:28; Status DC Daptomycin 220 mg/ Sodium Chloride 50 ml @ 100 mls/hr Q24H IV ; Start 08/02/16 at 09:15; Stop 08/02/16 at 15:58; Status DC Cefepime HCl 1 gm/ Sodium Chloride 50 ml @ 100 mls/hr Q12HR IV Last administered on 08/04/16 08:10; Start 08/02/16 at 10:00; Stop 08/04/16 at 10:33 ; Status DC Daptomycin/Sodium Chloride (Cubicin/Iv Sodium Chloride 0.9% 50ml) 50 ml @ 100 mls/hr ONCE ONCE IV ; Start 08/02/16 at 10:00; Stop 08/02/16 at 10:29; Status Cancel Potassium Chloride 40 meq 40 meq 1X ONCE PO Last administered on 08/02/16 10: 17; Start 08/02/16 at 09:45; Stop 08/02/16 at 09:46; Status DC Daptomycin/Sodium Chloride (Cubicin/Iv Sodium Chloride 0.9% 50ml) 50 ml @ 100 mls/hr Q24H IV Last administered on 08/03/16 09:43; Start 08/02/16 at 10:15; Stop 08/03/16 at 10:29; Status DC Potassium Chloride (Klor-Con) 40 meq 1X ONCE PO Last administered on 12:57; Start 08/02/16 at 12:30; Stop 08/02/16 at 12:36; Status DC Morphine Sulfate 5 mg PRN Q2HRS PRN IV MODERATE TO SEVERE PAIN Last administered on 08/04/16 08:16; Start 08/02/16 at 13:30 Morphine Sulfate 8 mg PRN Q2HRS PRN IV MODERATE TO SEVERE PAIN Last administered on 08/04/16 14:58; Start 08/02/16 at 13:30 Acetaminophen 650 mg 650 mg PRN Q6HRS PRN PO TEMP GREATER THAN 100.4 Last administered on 08/10/16 00:18; Start 08/02/16 at 14:45 Lactated Ringer's 1,000 ml @ 50 mls/hr Q20H IV ; Start 08/05/16 at 07:00; Stop 08/05/16 at 18:13; Status DC Daptomycin/Sodium Chloride (Cubicin/Iv Sodium Chloride 0.9% 50ml) 50 ml @ 100 mls/hr Q24H IV ; Start 08/03/16 at 11:00; Status Cancel Potassium Chloride (Klor-Con) 40 meq 1X ONCE PO Last administered on 17:41; Start 08/02/16 at 17:15; Stop 08/02/16 at 17:18; Status DC Potassium Chloride (Klor-Con) 40 meq BIDWMEALS PO ; Start 08/03/16 at 08:00; Stop 08/03/16 at 11:08; Status DC Morphine Sulfate 5 mg 1X ONCE IV Last administered on 08/02/16 21:45; Start 08/02/16 at 21:30; Stop 08/02/16 at 21:33; Status DC Lorazepam (Ativan) 1 mg 1X ONCE IV Last administered on 08/02/16 21:30; Start 08/02/16 at 21:30; Stop 08/02/16 at 21:33; Status DC Acetaminophen (Acetaminophen Supp) 650 mg PRN Q6HRS PRN CA MILD PAIN / TEMP Last administered on 08/13/16 03:13; Start 08/03/16 at 01:15 Albuterol/ Ipratropium (Duoneb) 3 ml RTQID NEB Last administered on 08/16/16 12:34; Start 08/03/16 at 08:00 Budesonide (Pulmicort) 0.5 mg RTBID NEB Last administered on 08/16/16 08:07; Start 08/03/16 at 08:00 Pantoprazole Sodium 40 mg 40 mg 1X ONCE IVP Last administered on 08/03/16 10: 06; Start 08/03/16 at 08:00; Stop 08/03/16 at 08:01; Status DC Daptomycin/Sodium Chloride (Cubicin/Iv Sodium Chloride 0.9% 50ml) 50 ml @ 100 mls/hr Q24H IV Last administered on 08/04/16 10:03; Start 08/04/16 at 10:00; Stop 08/04/16 at 10:33; Status DC Lorazepam (Ativan) 0.5 mg PRN Q6HRS PRN IV ANXIETY / AGITATION Last administered on 08/04/16 09:12; Start 08/03/16 at 11:15; Stop 08/07/16 at 11:02 ; Status DC Lorazepam (Ativan) 0.5 mg 1X ONCE IV Last administered on 08/04/16 10:00; Start 08/04/16 at 10:00; Stop 08/04/16 at 10:01; Status DC Morphine Sulfate 5 mg 1X ONCE IV Last administered on 08/04/16 10:00; Start 08/04/16 at 10:00; Stop 08/04/16 at 10:01; Status DC Lorazepam 0.5 mg 0.5 mg PRN Q4HRS PRN IV ANXIETY / AGITATION Last administered on 08/10/16 22:28; Start 08/04/16 at 10:00 Nafcillin Sodium 2 gm/Sodium Chloride 100 ml @ 200 mls/hr Q4HRS IV Last administered on 08/09/16 10:10; Start 08/04/16 at 12:00; Stop 08/09/16 at 11:49 ; Status DC Propofol (Diprivan) 100 ml @ As Directed STK-MED ONCE IV ; Start 08/04/16 at 16 :10; Stop 08/04/16 at 16:11; Status DC Succinylcholine Chloride (Anectine) 200 mg STK-MED ONCE .ROUTE ; Start 08/04/16 at 16:14; Stop 08/04/16 at 16:15; Status DC Succinylcholine Chloride 200 mg 200 mg 1X ONCE IV ; Start 08/04/16 at 16:45; Stop 08/04/16 at 16:46; Status DC Propofol (Diprivan) 100 ml @ 0 mls/hr CONT PRN IV SEE I/O RECORD Last administered on 08/16/16 14:03; Start 08/04/16 at 16:45 Lorazepam (Ativan) 0.5 mg 1X ONCE IV Last administered on 08/04/16 16:45; Start 08/04/16 at 16:45; Stop 08/04/16 at 16:46; Status DC Morphine Sulfate 5 mg 5 mg 1X ONCE IV Last administered on 08/04/16 16:44; Start 08/04/16 at 16:45; Stop 08/04/16 at 16:46; Status DC Fentanyl Citrate (Fentanyl 600 Mcg/30 ml [employer]) 30 ml @ 0 mls/hr CONT PRN IV PROTOCOL Last administered on 08/16/16 10:28; Start 08/04/16 at 16:45 Chlorhexidine Gluconate (Peridex) 15 ml BID MM Last administered on 08/16/16 07:55; Start 08/04/16 at 21:00 Famotidine 20 mg 20 mg BID IVP Last administered on 08/16/16 07:54; Start at 17:00 Sodium Chloride (Iv Sodium Chloride 0.9% 1000ml Bag) 1,000 ml @ 100 mls/hr Q10H IV Last administered on 08/07/16 04:35; Start 08/05/16 at 09:00; Stop at 08:59; Status DC Succinylcholine Chloride (Anectine) 200 mg STK-MED ONCE .ROUTE ; Start 08/04/16 at 16:00; Stop 08/05/16 at 12:32; Status DC Lorazepam (Ativan) 2 mg 1X ONCE IV Last administered on 08/05/16 20:43; Start 08/05/16 at 21:00; Stop 08/05/16 at 21:01; Status DC Furosemide (Lasix) 40 mg 1X PRN PRN IV blood transfusion Last administered on 14:17; Start 08/06/16 at 08:00; Stop 08/07/16 at 07:59; Status DC Sodium Bicarbonate 50 meq 1X ONCE IV Last administered on 08/06/16 14:06; Start 08/06/16 at 12:00; Stop 08/06/16 at 12:01; Status DC Calcium Chloride 1,000 mg STK-MED ONCE IV ; Start 08/04/16 at 12:00; Stop at 15:13; Status DC Epinephrine HCl (Epinephrine Syringe) 2 mg STK-MED ONCE .ROUTE ; Start 08/04/16 at 12:00; Stop 08/06/16 at 15:13; Status DC Sodium Bicarbonate 100 meq 100 meq STK-MED ONCE .ROUTE ; Start 08/04/16 at 12:00 ; Stop 08/06/16 at 15:13; Status DC Amino Acids/ Glycerin/ Electrolytes (Procalamine) 1,000 ml @ 100 mls/hr Q10H IV Last administered on 08/08/16 12:33; Start 08/07/16 at 10:00; Stop at 09:42; Status DC Enoxaparin Sodium (Lovenox 40mg Syringe) 40 mg Q24H SQ Last administered on 13:10; Start 08/07/16 at 13:00; Stop 08/10/16 at 10:43; Status DC Vecuronium [place] (Norcuron Bolus) 10 mg STK-MED ONCE IV ; Start 08/07/16 at 13 :56; Stop 08/07/16 at 13:57; Status DC Vecuronium [place] (Norcuron Bolus) 6 mg 1X ONCE IV Last administered on 14:06; Start 08/07/16 at 14:00; Stop 08/07/16 at 14:05; Status DC Sodium Bicarbonate 50 meq 1X ONCE IV Last administered on 08/08/16 11:46; Start 08/08/16 at 11:45; Stop 08/08/16 at 11:46; Status DC Nystatin 1 james 1 james BID TP Last administered on 08/16/16 07:55; Start at 21:00 Linezolid 300 ml @ 300 mls/hr Q12HR IV Last administered on 08/14/16 20:51; Start 08/09/16 at 09:00; Stop 08/15/16 at 07:21; Status DC Sodium Chloride 1,000 ml @ 50 mls/hr Q20H IV Last administered on 08/16/16 04 :16; Start 08/09/16 at 09:45 Sodium Bicarbonate/ Dextrose 1,150 ml @ 100 mls/hr 1X ONCE IV Last administered on 08/09/16 12:25; Start 08/09/16 at 11:30; Stop 08/09/16 at 22:59 ; Status DC Piperacillin Sod/ Tazobactam Sod 1 each 1 each PRN DAILY PRN MC SEE COMMENTS; Start 08/09/16 at 12:00; Stop 08/14/16 at 07:40; Status DC Piperacillin Sod/ Tazobactam Sod/ Sodium Chloride (Zosyn/Iv Sodium Chloride 0.9 % 100ml) 100 ml @ 200 mls/hr Q6HRS IV Last administered on 08/14/16 05:58; Start 08/09/16 at 12:30; Stop 08/14/16 at 07:33; Status DC Vecuronium [place] 5 mg 5 mg PRN Q4HRS PRN IV INCREASED RESPIRATORY,NOT RELI Last administered on 08/11/16 02:56; Start 08/09/16 at 13:30 Potassium Chloride 50 ml @ 100 mls/hr Q1H IV ; Start 08/10/16 at 09:30; Stop at 10:59; Status Cancel Potassium Chloride (KCl Premix 10meq) 100 ml @ 100 mls/hr Q1H IV Last administered on 08/10/16 16:28; Start 08/10/16 at 10:30; Stop 08/10/16 at 14:29 ; Status DC Potassium Chloride 60 meq 60 meq 1X ONCE PEG Last administered on 08/10/16 11 :16; Start 08/10/16 at 11:00; Stop 08/10/16 at 11:01; Status DC Sodium Bicarbonate/ Dextrose 1,150 ml @ 100 mls/hr [id number] IV Last administered on 08/10/16 11:14; Start 08/10/16 at 11:00; Stop 08/10/16 at 22:29 ; Status DC Enoxaparin Sodium 40 mg 40 mg Q24H SQ ; Start 08/10/16 at 13:00; Stop 08/10/16 at 13:00; Status DC Micafungin Sodium/ Dextrose (Mycamine) 100 ml @ 100 mls/hr Q24H IV Last administered on 08/13/16 16:26; Start 08/11/16 at 16:00; Stop 08/14/16 at 07:33 ; Status DC Furosemide (Lasix) 40 mg 1X ONCE IVP Last administered on 08/12/16 08:38; Start 08/12/16 at 08:00; Stop 08/12/16 at 08:06; Status DC Morphine Sulfate 1 mg 1 mg PRN Q10MIN PRN IV SEVERE PAIN; Start 08/13/16 at 07: 00; Stop 08/14/16 at 06:59; Status DC Lactated Ringer's (Iv Lactated Ringers) 1,000 ml @ 0 mls/hr Q0M IV ; Start at 07:00; Stop 08/13/16 at 18:59; Status DC Lidocaine HCl 2 ml PRN 1X PRN ID PRIOR TO IV START; Start 08/13/16 at 07:00; Stop 08/14/16 at 06:59; Status DC Hydromorphone HCl (Dilaudid) 0.5 mg PRN Q10MIN PRN IV SEV PAIN, Second choice; Start 08/13/16 at 07:00; Stop 08/14/16 at 06:59; Status DC Prochlorperazine Edisylate (Compazine) 5 mg PACU PRN PRN IV NAUSEA, MRX1; Start 08/13/16 at 07:00; Stop 08/14/16 at 06:59; Status DC Morphine Sulfate 1 mg 1 mg PRN Q10MIN PRN IV SEVERE PAIN; Start 08/13/16 at 07: 00; Stop 08/14/16 at 06:59; Status DC Lactated Ringer's (Iv Lactated Ringers) 1,000 ml @ 0 mls/hr Q0M IV ; Start at 07:00; Stop 08/13/16 at 18:59; Status DC Lidocaine HCl 2 ml PRN 1X PRN ID PRIOR TO IV START; Start 08/13/16 at 07:00; Stop 08/14/16 at 06:59; Status DC Hydromorphone HCl (Dilaudid) 0.5 mg PRN Q10MIN PRN IV SEV PAIN, Second choice; Start 08/13/16 at 07:00; Stop 08/14/16 at 06:59; Status DC Prochlorperazine Edisylate 5 mg 5 mg PACU PRN PRN IV NAUSEA, MRX1; Start at 07:00; Stop 08/14/16 at 06:59; Status DC Potassium Chloride (KCl Premix 20meq) 50 ml @ 50 mls/hr Q1H IV Last administered on 08/13/16 07:57; Start 08/13/16 at 07:00; Stop 08/13/16 at 08:59 ; Status DC Rocuronium [place] 50 mg 50 mg STK-MED ONCE .ROUTE ; Start 08/13/16 at 12:50; Stop 08/13/16 at 12:51; Status DC Propofol (Diprivan) 20 ml @ As Directed STK-MED ONCE IV ; Start 08/13/16 at 12: 53; Stop 08/13/16 at 12:54; Status DC Sevoflurane 30 ml 30 ml STK-MED ONCE IH ; Start 08/13/16 at 14:04; Stop at 14:05; Status DC Albumin Human 250 ml @ 100 mls/hr 1X ONCE IV Last administered on 08/13/16 23:38; Start 08/13/16 at 18:00; Stop 08/13/16 at 20:29; Status DC Albumin Human 500 ml @ 100 mls/hr 1X ONCE IV Last administered on 08/13/16 18:15; Start 08/13/16 at 18:00; Stop 08/13/16 at 22:59; Status DC Potassium Chloride 50 ml @ 50 mls/hr Q1H IV Last administered on 08/14/16 10: 46; Start 08/14/16 at 08:00; Stop 08/14/16 at 09:59; Status DC Nafcillin Sodium/ Sodium Chloride (Iv Sodium Chloride 0.9% 100ml) 100 ml @ 200 mls/hr Q4HRS IV Last administered on 08/16/16 14:01; Start 08/14/16 at 08:00 Enoxaparin Sodium (Lovenox 40mg Syringe) 40 mg Q24H SQ Last administered on 14:22; Start 08/14/16 at 12:00 Potassium Chloride (KCl Oral Soln) 40 meq 1X ONCE PEG Last administered on 07:54; Start 08/16/16 at 07:00; Stop 08/16/16 at 07:01; Status DC Potassium Chloride (KCl Oral Soln) 40 meq 1X ONCE PEG Last administered on 14:01; Start 08/16/16 at 12:00; Stop 08/16/16 at 12:01; Status DC Active Scripts Active Reported No Known Medications Prior To Admisstion (Info) Each 1 Each Vitals/I & O Vital Sign - Last 24 Hours 08/15/16 08/15/16 08/15/16 08/15/16 16:00 16:00 16:34 17:00 Temp 100.1 100.1 Pulse 100 98 Resp 22 B/P 91/55 90/46 Pulse Ox 100 96 100 O2 Delivery Ventilator Mechanical Ventilator Ventilator Ventilator 08/15/16 08/15/16 08/15/16 08/15/16 17:49 18:00 19:00 19:56 Pulse 104 100 Resp B/P 92/51 94/47 Pulse Ox 98 100 100 98 O2 Delivery Ventilator Ventilator Ventilator Ventilator 08/15/16 08/15/16 08/15/16 08/15/16 20:00 20:00 21:00 22:00 Temp 100.5 100.5 Pulse 98 106 106 Resp 24 B/P 86/45 95/47 98/50 Pulse Ox 100 100 100 O2 Delivery Mechanical Ventilator Ventilator Ventilator Ventilator 08/15/16 08/15/16 08/16/16 08/16/16 23:00 23:28 00:00 00:00 Temp 98.6 98.6 Pulse 104 102 Resp 23 B/P 82/50 93/49 Pulse Ox 100 100 100 O2 Delivery Ventilator Ventilator Mechanical Ventilator Ventilator 08/16/16 08/16/16 08/16/16 08/16/16 01:00 01:34 01:42 02:00 Pulse 98 98 Resp 24 26 B/P 86/47 86/50 Pulse Ox 100 100 100 O2 Delivery Ventilator Ventilator Ventilator Ventilator 08/16/16 08/16/16 08/16/16 08/16/16 02:05 03:00 03:42 04:00 Pulse 97 Resp 26 B/P 93/50 Pulse Ox 100 100 100 O2 Delivery Ventilator Ventilator Ventilator Mechanical Ventilator 08/16/16 08/16/16 08/16/16 08/16/16 04:00 05:00 05:43 06:00 Temp 98.4 98.4 Pulse 94 95 92 Resp 26 26 B/P 89/46 92/44 89/46 Pulse Ox 100 100 100 100 O2 Delivery Ventilator Ventilator Ventilator Ventilator 08/16/16 08/16/16 08/16/16 08/16/16 07:00 08:00 08:00 08:00 Temp 98.9 98.9 Pulse 94 96 Resp 26 B/P 83/45 85/47 Pulse Ox 100 100 100 O2 Delivery Ventilator Mechanical Ventilator Ventilator Ventilator 08/16/16 08/16/16 08/16/16 08/16/16 09:00 09:52 10:00 10:07 Temp 100.5 100.1 100.5 100.1 Pulse 98 100 98 96 Resp 28 34 34 B/P 96/51 96/51 92/52 96/47 Pulse Ox 100 100 O2 Delivery Ventilator Ventilator 08/16/16 08/16/16 08/16/16 08/16/16 11:00 11:07 11:30 12:00 Temp 97.0 99.0 97.0 97.0 99.0 97.0 Pulse 94 93 98 93 Resp 33 31 34 32 B/P 98/54 98/54 98/55 99/56 Pulse Ox 99 100 O2 Delivery Ventilator Ventilator 08/16/16 08/16/16 08/16/16 08/16/16 12:08 12:23 12:34 13:30 Temp 97.5 98.9 99.9 97.5 98.9 99.9 Pulse 94 95 104 Resp 32 34 32 B/P 99/56 101/59 104/58 Pulse Ox 100 O2 Delivery Ventilator Intake and Output 4/27/17 4/27/17 4/28/17 15:00 23:00 07:00 Intake Total 0 ml 35 ml 2075 ml Output Total 260 ml 160 ml 280 ml Balance -260 ml -125 ml 1795 ml Nutrition Consultation Dietary Evaluation: Recommendations by RD: PPN/TPN Comments: Pt is s/p PEG placement 08/14 Rec. TF's with Fibersource HN, goal rate 45 ml/hr Maintenance flushes of 30 cc q8h while on IVF's Expected Outcomes/Goals: tolerate the TF's via PEG at goal rate meet 75% estimated nutrition needs Interpretation of weight loss: >7.5% in 3 months Malnutrition Findings: Food and Nutrition Intake (Mod: <75% est energy req 7days Body Fat Depletion (Non Severe: Mild Depletion Reduced [employer] Strength: N/A Reduced [employer] Strength (Non-Sev: N/A Malnutrition related to morbid: No Weight Status: Overweight Fluid Accumulation (N/A): N/A CODY BLACK III DO Aug 16, 2016 15:53
[2016-08-16] MEDS ORDERED: MAGNESIUM SULFATE 2GM 50 ML IV ONE (16:30)
[2016-08-17] VITALS (24 sets, daily range): BP systolic 89–116; BP diastolic 49–72
[2016-08-17] MEDS: NAFCILLIN 2 GM in IV NORMAL SALINE 100ML 100 ML IV SCH ×6 (04:13→23:51)
[2016-08-17] MEDS: PROPOFOL 100 ML IV PRN ×2 (04:14→10:18)
[2016-08-17 07:04] LABS: HEMATOCRIT 23.8 % (36.0-47.0); HEMOGLOBIN 7.9 g/dL (12.0-15.5); MEAN CORPUSCULAR HEMOGLOBIN 29 pg (25-35); MEAN CORPUSCULAR HGB CONC 33 g/dL (31-37); MEAN CORPUSCULAR VOLUME 88 fL (79-100); WHITE BLOOD COUNT 12.2 x10^3/uL (4.0-11.0)
[2016-08-17 07:05] LABS: BASO # 0.1 x10^3/uL (0.0-0.2); BASO % 1 % (0-3); EOS % 4 % (0-3); LYMPH # 1.2 x10^3/uL (1.0-4.8); LYMPH % 10 % (24-48); MONO % 6 % (0-9); NEUT % 79 % (31-73); PLATELET COUNT 261 x10^3/uL (140-400); RED CELL DISTRIBUTION WIDTH 16.2 % (11.5-14.5)
[2016-08-17 07:28] LABS: CALCIUM 7.7 mg/dL (8.5-10.1); CREATININE 0.9 mg/dL (0.6-1.0); GFR 68.7; POTASSIUM 3.4 mmol/L (3.5-5.1)
[2016-08-17 07:30] LABS: PHOSPHORUS 3.5 mg/dL (2.6-4.7)
[2016-08-17] MEDS: BUDESONIDE 0.5 MG/2 ML NEBU. NEB SCH ×2 (08:06→19:49)
[2016-08-17] MEDS: IPRATRPIUM/ALBUTEROL 0.5/2.5MG 3 ML NEBU. NEB SCH ×4 (08:06→19:49)
--- NOTE | 2016-08-17 08:44 | PDOC ---
Infectious Disease Note Subjective Subjective Remains intubated via trach On sedation Low-grade fevers Tube feedings Diarrhea ROS ROS unobtainable Vital Sign Vital Signs Vital Signs Date Time Temp Pulse Resp B/P Pulse Ox O2 Delivery O2 Flow Rate FiO2 08/17/16 08:06 100 Ventilator 08/17/16 07:00 98.6 97 29 91/57 98.6 Physical Exam PHYSICAL EXAM GENERAL: Awake, calm HENT: Pupils equally round. + eye contact NECK: Trach, + secretions LUNGS: Less rhonchi HEART: S1S2 ABD: Mildly distended, soft, BS present. : [place] EXT: Generalized edema. No cyanosis ELECTION ASSISTANT: Awake, unresponsive to verbal SKIN: No rash LUE-PICC. Labs Lab Laboratory Tests Test 08/17/16 06:20 White Blood Count 12.2x10^3/uL (4.0-11.0) Red Blood Count 2.70x10^6/uL (3.50-5.40) Hemoglobin 7.9g/dL (12.0-15.5) Hematocrit 23.8% (36.0-47.0) Mean Corpuscular Volume 88fL (79-100) Mean Corpuscular Hemoglobin 29pg (25-35) Mean Corpuscular Hemoglobin Concent 33g/dL (31-37) Red Cell Distribution Width 16.2% (11.5-14.5) Platelet Count 261x10^3/uL (140-400) Neutrophils (%) (Auto) 79% (31-73) Lymphocytes (%) (Auto) 10% (24-48) Monocytes (%) (Auto) 6% (0-9) Eosinophils (%) (Auto) 4% (0-3) Basophils (%) (Auto) 1% (0-3) Neutrophils # (Auto) 9.7x10^3uL (1.8-7.7) Lymphocytes # (Auto) 1.2x10^3/uL (1.0-4.8) Monocytes # (Auto) 0.7x10^3/uL (0.0-1.1) Eosinophils # (Auto) 0.5x10^3/uL (0.0-0.7) Basophils # (Auto) 0.1x10^3/uL (0.0-0.2) Sodium Level 135mmol/L (136-145) Potassium Level 3.4mmol/L (3.5-5.1) Chloride Level 106mmol/L (98-107) Carbon Dioxide Level 20mmol/L (21-32) Anion Gap 9 (6-14) Blood Urea Nitrogen 18mg/dL (7-20) Creatinine 0.9mg/dL (0.6-1.0) Estimated GFR (Cockcroft-Gault) 68.7 Glucose Level 115mg/dL (70-99) Calcium Level 7.7mg/dL (8.5-10.1) Phosphorus Level 3.5mg/dL (2.6-4.7) Magnesium Level 2.0mg/dL (1.8-2.4) Objective Assessment Fever ?reactive PRBCs Acute anemia s/p PRBCs, 08/16 S/p Trach/PEG 08/13 MSSA sepsis 08/01 ([facility]) -Repeat BC positive, 08/05 & 08/07. Neg 08/09 Right-sided bacterial endocarditis. -TTE. 3.0 x 2.0cm mobile mass TV Multiple pulmonary nodules/septic emboli Acute Resp failure - Intubated ? developing ARDS. S/p Bronch 08/08. MSSA IV drug use. Hep C Ileus Renal insufficiency. Severe thrombocytopenia. improved Hepatosplenomegaly on CT Plan Plan of Care Continue Nafcillin Monitor WBC, temp Supportive care Critically ill Attending Co-Sign The patient was seen and interviewed as well as examined at the bedside. The chart was reviewed. The case was discussed. Agree with the plan of care. JAZMIN SOUSA APRN Aug 17, 2016 08:44 MARSHA MORFIN MD Aug 17, 2016 13:07
[2016-08-17 09:50] LABS: HCO3 ABG 18 mmol/L (21-28); PCO2 ABG 27 mmHg (35-46); PH ABG 7.45 (7.35-7.45); PO2 ABG 64 mmHg (75-108); SAT O2 ABG 93 % (92-99)
[2016-08-17 09:55] LABS: FIO2 ABG 40 t tube
[2016-08-17] MEDS: FAMOTIDINE 20 MG/2 ML VIAL IVP SCH ×2 (10:18→20:50)
[2016-08-17] MEDS: CHLORHEXIDINE 0.12% 15 ML MOUTHWASH. MM SCH (10:18)
[2016-08-17] MEDS: ENOXAPARIN 40 MG/0.4 ML SYRINGE. SQ SCH (10:21)
[2016-08-17] MEDS: NYSTATIN TOPICAL POWDER 15GM BOTTLE. TP SCH ×2 (10:22→20:50)
--- NOTE | 2016-08-17 11:33 | RAD ---
Portable AP upright chest x-ray performed at 04 21 Indications: Respiratory failure. Follow-up study. Comparison: August 16, 2016. IMPRESSION: Tracheostomy tube and left upper extremity PICC line are unchanged in position. The tip of the PICC line is seen within the upper aspect of the right atrium. Bilateral consolidative lung infiltrates and pleural effusions are stable. No pneumothorax is seen. The heart size and mediastinum are stable.
--- NOTE | 2016-08-17 13:22 | PDOC ---
PROGRESS NOTES Chief Complaint Chief Complaint cc: septic emboli, IV drug use, respiratory failure. -Endocarditis -Resp failure on Vent - polysubstance abuse -Hep C, right -rotator cuff repair -Tobacco use -20lb weight loss over the last couple of months -Renal insufficiency -Pneumonia -Septic emboli -Anemia requiring transfusions History of Present Illness History of Present Illness Ms. Escamilla was on a tracheal vent and in bed. She was breathing in 40% FiO2. We spoke with the family when we visited. She had PPN and propofol hanging from the IV rack. She was still partially sedated with propofol. We spoke with nursing about this case. Vitals Vitals Vital Signs Date Time Temp Pulse Resp B/P Pulse Ox O2 Delivery O2 Flow Rate FiO2 08/17/16 12:17 98 T-Tube 10.0 08/17/16 10:21 38 08/17/16 07:00 98.6 97 91/57 98.6 Physical Exam General: No acute distress, Other (negative scleral icterus ) Heart: Normal S1, Normal S2, No murmurs Lungs: Clear, Other (There were no chest retractions or obvious respiratory distress present.) Abdomen: Normal bowel sounds, Soft Extremities: No clubbing, No cyanosis Skin: No rashes, No breakdown Labs LABS Laboratory Tests Test 08/17/16 06:20 08/17/16 09:45 White Blood Count 12.2x10^3/uL (4.0-11.0) Red Blood Count 2.70x10^6/uL (3.50-5.40) Hemoglobin 7.9g/dL (12.0-15.5) Hematocrit 23.8% (36.0-47.0) Mean Corpuscular Volume 88fL (79-100) Mean Corpuscular Hemoglobin 29pg (25-35) Mean Corpuscular Hemoglobin Concent 33g/dL (31-37) Red Cell Distribution Width 16.2% (11.5-14.5) Platelet Count 261x10^3/uL (140-400) Neutrophils (%) (Auto) 79% (31-73) Lymphocytes (%) (Auto) 10% (24-48) Monocytes (%) (Auto) 6% (0-9) Eosinophils (%) (Auto) 4% (0-3) Basophils (%) (Auto) 1% (0-3) Neutrophils # (Auto) 9.7x10^3uL (1.8-7.7) Lymphocytes # (Auto) 1.2x10^3/uL (1.0-4.8) Monocytes # (Auto) 0.7x10^3/uL (0.0-1.1) Eosinophils # (Auto) 0.5x10^3/uL (0.0-0.7) Basophils # (Auto) 0.1x10^3/uL (0.0-0.2) Sodium Level 135mmol/L (136-145) Potassium Level 3.4mmol/L (3.5-5.1) Chloride Level 106mmol/L (98-107) Carbon Dioxide Level 20mmol/L (21-32) Anion Gap 9 (6-14) Blood Urea Nitrogen 18mg/dL (7-20) Creatinine 0.9mg/dL (0.6-1.0) Estimated GFR (Cockcroft-Gault) 68.7 Glucose Level 115mg/dL (70-99) Calcium Level 7.7mg/dL (8.5-10.1) Phosphorus Level 3.5mg/dL (2.6-4.7) Magnesium Level 2.0mg/dL (1.8-2.4) O2 Saturation 93% (92-99) Arterial Blood pH 7.45 (7.35-7.45) Arterial Blood pCO2 at Patient Temp 27mmHg (35-46) Arterial Blood pO2 at Patient Temp 64mmHg (75-108) Arterial Blood HCO3 18mmol/L (21-28) Arterial Blood Base Excess -5mmol/L (-3-3) FiO2 40 t tube Review of Systems Review of Systems This portion of the examination was unattainable. Assessment and Plan Assessmemt and Plan Assessment: Ms. Escamilla is a 41 year old female who presented with septic emboli, IV drug use, and respiratory failure. -Endocarditis -Resp failure on Vent - polysubstance abuse -Hep C, right -rotator cuff repair -Tobacco use -20lb weight loss over the last couple of months -Renal insufficiency -Pneumonia -Septic emboli -Anemia requiring transfusions Plan: 1. Replenish potassium, phosphate 2. Continue breathing treatments with albuterol/ipratropium and budesonide 3. Continue pain management and sedation with fentanyl and lorazepam 4. Continue nafcillin per ID 5. Continue GI PPX with famotidine 6. PT/OT/ST 7. Recheck labs 8. Appreciate subspecialist input Problems: Comment Review of Relevant I have reviewed the following items shanta (where applicable) has been applied. Labs Laboratory Tests Test 08/15/16 15:35 08/16/16 05:00 08/17/16 06:20 08/17/16 09:45 O2 Saturation 98% (92-99) 93% (92-99) Arterial Blood pH 7.46 (7.35-7.45) 7.45 (7.35-7.45) Arterial Blood pCO2 at Patient Temp 29mmHg (35-46) 27mmHg (35-46) Arterial Blood pO2 at Patient Temp 96mmHg (75-108) 64mmHg (75-108) Arterial Blood HCO3 20mmol/L (21-28) 18mmol/L (21-28) Arterial Blood Base Excess -3mmol/L (-3-3) -5mmol/L (-3-3) FiO2 35 40 t tube White Blood Count 11.5x10^3/uL (4.0-11.0) 12.2x10^3/uL (4.0-11.0) Red Blood Count 2.28x10^6/uL (3.50-5.40) 2.70x10^6/uL (3.50-5.40) Hemoglobin 6.7g/dL (12.0-15.5) 7.9g/dL (12.0-15.5) Hematocrit 20.1% (36.0-47.0) 23.8% (36.0-47.0) Mean Corpuscular Volume 88fL (79-100) 88fL (79-100) Mean Corpuscular Hemoglobin 29pg (25-35) 29pg (25-35) Mean Corpuscular Hemoglobin Concent 33g/dL (31-37) 33g/dL (31-37) Red Cell Distribution Width 16.3% (11.5-14.5) 16.2% (11.5-14.5) Platelet Count 237x10^3/uL (140-400) 261x10^3/uL (140-400) Neutrophils (%) (Auto) 78% (31-73) 79% (31-73) Lymphocytes (%) (Auto) 10% (24-48) 10% (24-48) Monocytes (%) (Auto) 8% (0-9) 6% (0-9) Eosinophils (%) (Auto) 3% (0-3) 4% (0-3) Basophils (%) (Auto) 1% (0-3) 1% (0-3) Neutrophils # (Auto) 9.0x10^3uL (1.8-7.7) 9.7x10^3uL (1.8-7.7) Lymphocytes # (Auto) 1.1x10^3/uL (1.0-4.8) 1.2x10^3/uL (1.0-4.8) Monocytes # (Auto) 0.9x10^3/uL (0.0-1.1) 0.7x10^3/uL (0.0-1.1) Eosinophils # (Auto) 0.4x10^3/uL (0.0-0.7) 0.5x10^3/uL (0.0-0.7) Basophils # (Auto) 0.1x10^3/uL (0.0-0.2) 0.1x10^3/uL (0.0-0.2) Sodium Level 133mmol/L (136-145) 135mmol/L (136-145) Potassium Level 2.8mmol/L (3.5-5.1) 3.4mmol/L (3.5-5.1) Chloride Level 103mmol/L (98-107) 106mmol/L (98-107) Carbon Dioxide Level 21mmol/L (21-32) 20mmol/L (21-32) Anion Gap 9 (6-14) 9 (6-14) Blood Urea Nitrogen 17mg/dL (7-20) 18mg/dL (7-20) Creatinine 0.9mg/dL (0.6-1.0) 0.9mg/dL (0.6-1.0) Estimated GFR (Cockcroft-Gault) 68.7 68.7 Glucose Level 116mg/dL (70-99) 115mg/dL (70-99) Calcium Level 7.2mg/dL (8.5-10.1) 7.7mg/dL (8.5-10.1) Magnesium Level 1.6mg/dL (1.8-2.4) 2.0mg/dL (1.8-2.4) Phosphorus Level 3.5mg/dL (2.6-4.7) Laboratory Tests Test 08/17/16 06:20 08/17/16 09:45 White Blood Count 12.2x10^3/uL (4.0-11.0) Red Blood Count 2.70x10^6/uL (3.50-5.40) Hemoglobin 7.9g/dL (12.0-15.5) Hematocrit 23.8% (36.0-47.0) Mean Corpuscular Volume 88fL (79-100) Mean Corpuscular Hemoglobin 29pg (25-35) Mean Corpuscular Hemoglobin Concent 33g/dL (31-37) Red Cell Distribution Width 16.2% (11.5-14.5) Platelet Count 261x10^3/uL (140-400) Neutrophils (%) (Auto) 79% (31-73) Lymphocytes (%) (Auto) 10% (24-48) Monocytes (%) (Auto) 6% (0-9) Eosinophils (%) (Auto) 4% (0-3) Basophils (%) (Auto) 1% (0-3) Neutrophils # (Auto) 9.7x10^3uL (1.8-7.7) Lymphocytes # (Auto) 1.2x10^3/uL (1.0-4.8) Monocytes # (Auto) 0.7x10^3/uL (0.0-1.1) Eosinophils # (Auto) 0.5x10^3/uL (0.0-0.7) Basophils # (Auto) 0.1x10^3/uL (0.0-0.2) Sodium Level 135mmol/L (136-145) Potassium Level 3.4mmol/L (3.5-5.1) Chloride Level 106mmol/L (98-107) Carbon Dioxide Level 20mmol/L (21-32) Anion Gap 9 (6-14) Blood Urea Nitrogen 18mg/dL (7-20) Creatinine 0.9mg/dL (0.6-1.0) Estimated GFR (Cockcroft-Gault) 68.7 Glucose Level 115mg/dL (70-99) Calcium Level 7.7mg/dL (8.5-10.1) Phosphorus Level 3.5mg/dL (2.6-4.7) Magnesium Level 2.0mg/dL (1.8-2.4) O2 Saturation 93% (92-99) Arterial Blood pH 7.45 (7.35-7.45) Arterial Blood pCO2 at Patient Temp 27mmHg (35-46) Arterial Blood pO2 at Patient Temp 64mmHg (75-108) Arterial Blood HCO3 18mmol/L (21-28) Arterial Blood Base Excess -5mmol/L (-3-3) FiO2 40 t tube Microbiology 08/09/16 Blood Culture - Final, Complete NO GROWTH AFTER 5 DAYS 08/08/16 AFB Specimen Processing Tissue - Final, Resulted 08/08/16 Acid Fast Bacilli Culture, Resulted Pending 08/08/16 Gram Stain - Final, Resulted 08/08/16 Fungal Culture, Resulted Pending 08/08/16 Fungal Culture Result 1, Resulted Pending Medications Current Medications Amino Acids/ Glycerin/ Electrolytes (Procalamine) 1,000 ml @ 100 mls/hr Q10H IV Last administered on 08/05/16 02:40; Start 08/02/16 at 03:00; Stop at 08:50; Status DC Morphine Sulfate 2 mg 2 mg PRN Q2HR PRN IV SEVERE PAIN Last administered on 11:59; Start 08/02/16 at 02:30; Stop 08/02/16 at 13:28; Status DC Daptomycin 220 mg/ Sodium Chloride 50 ml @ 100 mls/hr Q24H IV ; Start 08/02/16 at 09:15; Stop 08/02/16 at 15:58; Status DC Cefepime HCl 1 gm/ Sodium Chloride 50 ml @ 100 mls/hr Q12HR IV Last administered on 08/04/16 08:10; Start 08/02/16 at 10:00; Stop 08/04/16 at 10:33 ; Status DC Daptomycin/Sodium Chloride (Cubicin/Iv Sodium Chloride 0.9% 50ml) 50 ml @ 100 mls/hr ONCE ONCE IV ; Start 08/02/16 at 10:00; Stop 08/02/16 at 10:29; Status Cancel Potassium Chloride 40 meq 40 meq 1X ONCE PO Last administered on 08/02/16 10: 17; Start 08/02/16 at 09:45; Stop 08/02/16 at 09:46; Status DC Daptomycin/Sodium Chloride (Cubicin/Iv Sodium Chloride 0.9% 50ml) 50 ml @ 100 mls/hr Q24H IV Last administered on 08/03/16 09:43; Start 08/02/16 at 10:15; Stop 08/03/16 at 10:29; Status DC Potassium Chloride (Klor-Con) 40 meq 1X ONCE PO Last administered on 12:57; Start 08/02/16 at 12:30; Stop 08/02/16 at 12:36; Status DC Morphine Sulfate 5 mg PRN Q2HRS PRN IV MODERATE TO SEVERE PAIN Last administered on 08/04/16 08:16; Start 08/02/16 at 13:30 Morphine Sulfate 8 mg PRN Q2HRS PRN IV MODERATE TO SEVERE PAIN Last administered on 08/04/16 14:58; Start 08/02/16 at 13:30 Acetaminophen 650 mg 650 mg PRN Q6HRS PRN PO TEMP GREATER THAN 100.4 Last administered on 08/10/16 00:18; Start 08/02/16 at 14:45 Lactated Ringer's 1,000 ml @ 50 mls/hr Q20H IV ; Start 08/05/16 at 07:00; Stop 08/05/16 at 18:13; Status DC Daptomycin/Sodium Chloride (Cubicin/Iv Sodium Chloride 0.9% 50ml) 50 ml @ 100 mls/hr Q24H IV ; Start 08/03/16 at 11:00; Status Cancel Potassium Chloride (Klor-Con) 40 meq 1X ONCE PO Last administered on 17:41; Start 08/02/16 at 17:15; Stop 08/02/16 at 17:18; Status DC Potassium Chloride (Klor-Con) 40 meq BIDWMEALS PO ; Start 08/03/16 at 08:00; Stop 08/03/16 at 11:08; Status DC Morphine Sulfate 5 mg 1X ONCE IV Last administered on 08/02/16 21:45; Start 08/02/16 at 21:30; Stop 08/02/16 at 21:33; Status DC Lorazepam (Ativan) 1 mg 1X ONCE IV Last administered on 08/02/16 21:30; Start 08/02/16 at 21:30; Stop 08/02/16 at 21:33; Status DC Acetaminophen (Acetaminophen Supp) 650 mg PRN Q6HRS PRN MI MILD PAIN / TEMP Last administered on 08/13/16 03:13; Start 08/03/16 at 01:15 Albuterol/ Ipratropium (Duoneb) 3 ml RTQID NEB Last administered on 08/17/16 12:17; Start 08/03/16 at 08:00 Budesonide (Pulmicort) 0.5 mg RTBID NEB Last administered on 08/17/16 08:06; Start 08/03/16 at 08:00 Pantoprazole Sodium 40 mg 40 mg 1X ONCE IVP Last administered on 08/03/16 10: 06; Start 08/03/16 at 08:00; Stop 08/03/16 at 08:01; Status DC Daptomycin/Sodium Chloride (Cubicin/Iv Sodium Chloride 0.9% 50ml) 50 ml @ 100 mls/hr Q24H IV Last administered on 08/04/16 10:03; Start 08/04/16 at 10:00; Stop 08/04/16 at 10:33; Status DC Lorazepam (Ativan) 0.5 mg PRN Q6HRS PRN IV ANXIETY / AGITATION Last administered on 08/04/16 09:12; Start 08/03/16 at 11:15; Stop 08/07/16 at 11:02 ; Status DC Lorazepam (Ativan) 0.5 mg 1X ONCE IV Last administered on 08/04/16 10:00; Start 08/04/16 at 10:00; Stop 08/04/16 at 10:01; Status DC Morphine Sulfate 5 mg 1X ONCE IV Last administered on 08/04/16 10:00; Start 08/04/16 at 10:00; Stop 08/04/16 at 10:01; Status DC Lorazepam 0.5 mg 0.5 mg PRN Q4HRS PRN IV ANXIETY / AGITATION Last administered on 08/17/16 10:18; Start 08/04/16 at 10:00 Nafcillin Sodium 2 gm/Sodium Chloride 100 ml @ 200 mls/hr Q4HRS IV Last administered on 08/09/16 10:10; Start 08/04/16 at 12:00; Stop 08/09/16 at 11:49 ; Status DC Propofol (Diprivan) 100 ml @ As Directed STK-MED ONCE IV ; Start 08/04/16 at 16 :10; Stop 08/04/16 at 16:11; Status DC Succinylcholine Chloride (Anectine) 200 mg STK-MED ONCE .ROUTE ; Start 08/04/16 at 16:14; Stop 08/04/16 at 16:15; Status DC Succinylcholine Chloride 200 mg 200 mg 1X ONCE IV ; Start 08/04/16 at 16:45; Stop 08/04/16 at 16:46; Status DC Propofol (Diprivan) 100 ml @ 0 mls/hr CONT PRN IV SEE I/O RECORD Last administered on 08/17/16 10:18; Start 08/04/16 at 16:45 Lorazepam (Ativan) 0.5 mg 1X ONCE IV Last administered on 08/04/16 16:45; Start 08/04/16 at 16:45; Stop 08/04/16 at 16:46; Status DC Morphine Sulfate 5 mg 5 mg 1X ONCE IV Last administered on 08/04/16 16:44; Start 08/04/16 at 16:45; Stop 08/04/16 at 16:46; Status DC Fentanyl Citrate (Fentanyl 600 Mcg/30 ml SKIVING MACHINE OPERATOR) 30 ml @ 0 mls/hr CONT PRN IV PROTOCOL Last administered on 08/17/16 10:21; Start 08/04/16 at 16:45 Chlorhexidine Gluconate (Peridex) 15 ml BID MM Last administered on 08/17/16 10:18; Start 08/04/16 at 21:00 Famotidine 20 mg 20 mg BID IVP Last administered on 08/17/16 10:18; Start at 17:00 Sodium Chloride (Iv Sodium Chloride 0.9% 1000ml Bag) 1,000 ml @ 100 mls/hr Q10H IV Last administered on 08/07/16 04:35; Start 08/05/16 at 09:00; Stop at 08:59; Status DC Succinylcholine Chloride (Anectine) 200 mg STK-MED ONCE .ROUTE ; Start 08/04/16 at 16:00; Stop 08/05/16 at 12:32; Status DC Lorazepam (Ativan) 2 mg 1X ONCE IV Last administered on 08/05/16 20:43; Start 08/05/16 at 21:00; Stop 08/05/16 at 21:01; Status DC Furosemide (Lasix) 40 mg 1X PRN PRN IV blood transfusion Last administered on 14:17; Start 08/06/16 at 08:00; Stop 08/07/16 at 07:59; Status DC Sodium Bicarbonate 50 meq 1X ONCE IV Last administered on 08/06/16 14:06; Start 08/06/16 at 12:00; Stop 08/06/16 at 12:01; Status DC Calcium Chloride 1,000 mg STK-MED ONCE IV ; Start 08/04/16 at 12:00; Stop at 15:13; Status DC Epinephrine HCl (Epinephrine Syringe) 2 mg STK-MED ONCE .ROUTE ; Start 08/04/16 at 12:00; Stop 08/06/16 at 15:13; Status DC Sodium Bicarbonate 100 meq 100 meq STK-MED ONCE .ROUTE ; Start 08/04/16 at 12:00 ; Stop 08/06/16 at 15:13; Status DC Amino Acids/ Glycerin/ Electrolytes (Procalamine) 1,000 ml @ 100 mls/hr Q10H IV Last administered on 08/08/16 12:33; Start 08/07/16 at 10:00; Stop at 09:42; Status DC Enoxaparin Sodium (Lovenox 40mg Syringe) 40 mg Q24H SQ Last administered on 13:10; Start 08/07/16 at 13:00; Stop 08/10/16 at 10:43; Status DC Vecuronium [place] (Norcuron Bolus) 10 mg STK-MED ONCE IV ; Start 08/07/16 at 13 :56; Stop 08/07/16 at 13:57; Status DC Vecuronium [place] (Norcuron Bolus) 6 mg 1X ONCE IV Last administered on 14:06; Start 08/07/16 at 14:00; Stop 08/07/16 at 14:05; Status DC Sodium Bicarbonate 50 meq 1X ONCE IV Last administered on 08/08/16 11:46; Start 08/08/16 at 11:45; Stop 08/08/16 at 11:46; Status DC Nystatin 1 james 1 james BID TP Last administered on 08/17/16 10:22; Start at 21:00 Linezolid 300 ml @ 300 mls/hr Q12HR IV Last administered on 08/14/16 20:51; Start 08/09/16 at 09:00; Stop 08/15/16 at 07:21; Status DC Sodium Chloride 1,000 ml @ 50 mls/hr Q20H IV Last administered on 08/16/16 23 :52; Start 08/09/16 at 09:45 Sodium Bicarbonate/ Dextrose 1,150 ml @ 100 mls/hr 1X ONCE IV Last administered on 08/09/16 12:25; Start 08/09/16 at 11:30; Stop 08/09/16 at 22:59 ; Status DC Piperacillin Sod/ Tazobactam Sod 1 each 1 each PRN DAILY PRN MC SEE COMMENTS; Start 08/09/16 at 12:00; Stop 08/14/16 at 07:40; Status DC Piperacillin Sod/ Tazobactam Sod/ Sodium Chloride (Zosyn/Iv Sodium Chloride 0.9 % 100ml) 100 ml @ 200 mls/hr Q6HRS IV Last administered on 08/14/16 05:58; Start 08/09/16 at 12:30; Stop 08/14/16 at 07:33; Status DC Vecuronium [place] 5 mg 5 mg PRN Q4HRS PRN IV INCREASED RESPIRATORY,NOT RELI Last administered on 08/11/16 02:56; Start 08/09/16 at 13:30 Potassium Chloride 50 ml @ 100 mls/hr Q1H IV ; Start 08/10/16 at 09:30; Stop at 10:59; Status Cancel Potassium Chloride (KCl Premix 10meq) 100 ml @ 100 mls/hr Q1H IV Last administered on 08/10/16 16:28; Start 08/10/16 at 10:30; Stop 08/10/16 at 14:29 ; Status DC Potassium Chloride 60 meq 60 meq 1X ONCE PEG Last administered on 08/10/16 11 :16; Start 08/10/16 at 11:00; Stop 08/10/16 at 11:01; Status DC Sodium Bicarbonate/ Dextrose 1,150 ml @ 100 mls/hr [id number] IV Last administered on 08/10/16 11:14; Start 08/10/16 at 11:00; Stop 08/10/16 at 22:29 ; Status DC Enoxaparin Sodium 40 mg 40 mg Q24H SQ ; Start 08/10/16 at 13:00; Stop 08/10/16 at 13:00; Status DC Micafungin Sodium/ Dextrose (Mycamine) 100 ml @ 100 mls/hr Q24H IV Last administered on 08/13/16 16:26; Start 08/11/16 at 16:00; Stop 08/14/16 at 07:33 ; Status DC Furosemide (Lasix) 40 mg 1X ONCE IVP Last administered on 08/12/16 08:38; Start 08/12/16 at 08:00; Stop 08/12/16 at 08:06; Status DC Morphine Sulfate 1 mg 1 mg PRN Q10MIN PRN IV SEVERE PAIN; Start 08/13/16 at 07: 00; Stop 08/14/16 at 06:59; Status DC Lactated Ringer's (Iv Lactated Ringers) 1,000 ml @ 0 mls/hr Q0M IV ; Start at 07:00; Stop 08/13/16 at 18:59; Status DC Lidocaine HCl 2 ml PRN 1X PRN ID PRIOR TO IV START; Start 08/13/16 at 07:00; Stop 08/14/16 at 06:59; Status DC Hydromorphone HCl (Dilaudid) 0.5 mg PRN Q10MIN PRN IV SEV PAIN, Second choice; Start 08/13/16 at 07:00; Stop 08/14/16 at 06:59; Status DC Prochlorperazine Edisylate (Compazine) 5 mg PACU PRN PRN IV NAUSEA, MRX1; Start 08/13/16 at 07:00; Stop 08/14/16 at 06:59; Status DC Morphine Sulfate 1 mg 1 mg PRN Q10MIN PRN IV SEVERE PAIN; Start 08/13/16 at 07: 00; Stop 08/14/16 at 06:59; Status DC Lactated Ringer's (Iv Lactated Ringers) 1,000 ml @ 0 mls/hr Q0M IV ; Start at 07:00; Stop 08/13/16 at 18:59; Status DC Lidocaine HCl 2 ml PRN 1X PRN ID PRIOR TO IV START; Start 08/13/16 at 07:00; Stop 08/14/16 at 06:59; Status DC Hydromorphone HCl (Dilaudid) 0.5 mg PRN Q10MIN PRN IV SEV PAIN, Second choice; Start 08/13/16 at 07:00; Stop 08/14/16 at 06:59; Status DC Prochlorperazine Edisylate 5 mg 5 mg PACU PRN PRN IV NAUSEA, MRX1; Start at 07:00; Stop 08/14/16 at 06:59; Status DC Potassium Chloride (KCl Premix 20meq) 50 ml @ 50 mls/hr Q1H IV Last administered on 08/13/16 07:57; Start 08/13/16 at 07:00; Stop 08/13/16 at 08:59 ; Status DC Rocuronium [place] 50 mg 50 mg STK-MED ONCE .ROUTE ; Start 08/13/16 at 12:50; Stop 08/13/16 at 12:51; Status DC Propofol (Diprivan) 20 ml @ As Directed STK-MED ONCE IV ; Start 08/13/16 at 12: 53; Stop 08/13/16 at 12:54; Status DC Sevoflurane 30 ml 30 ml STK-MED ONCE IH ; Start 08/13/16 at 14:04; Stop at 14:05; Status DC Albumin Human 250 ml @ 100 mls/hr 1X ONCE IV Last administered on 08/13/16 23:38; Start 08/13/16 at 18:00; Stop 08/13/16 at 20:29; Status DC Albumin Human 500 ml @ 100 mls/hr 1X ONCE IV Last administered on 08/13/16 18:15; Start 08/13/16 at 18:00; Stop 08/13/16 at 22:59; Status DC Potassium Chloride 50 ml @ 50 mls/hr Q1H IV Last administered on 08/14/16 10: 46; Start 08/14/16 at 08:00; Stop 08/14/16 at 09:59; Status DC Nafcillin Sodium/ Sodium Chloride (Iv Sodium Chloride 0.9% 100ml) 100 ml @ 200 mls/hr Q4HRS IV Last administered on 08/17/16 10:18; Start 08/14/16 at 08:00 Enoxaparin Sodium (Lovenox 40mg Syringe) 40 mg Q24H SQ Last administered on 10:21; Start 08/14/16 at 12:00 Potassium Chloride (KCl Oral Soln) 40 meq 1X ONCE PEG Last administered on 07:54; Start 08/16/16 at 07:00; Stop 08/16/16 at 07:01; Status DC Potassium Chloride 40 meq 40 meq 1X ONCE PEG Last administered on 08/16/16 14 :01; Start 08/16/16 at 12:00; Stop 08/16/16 at 12:01; Status DC Magnesium Sulfate/ Dextrose (Magnesium Sulfate PREMIX 2GM) 50 ml @ 25 mls/hr 1X ONCE IV Last administered on 08/16/16 17:14; Start 08/16/16 at 16:30; Stop 08/16/16 at 18:29; Status DC Active Scripts Active Reported No Known Medications Prior To Admisstion (Info) Each 1 Each Vitals/I & O Vital Sign - Last 24 Hours 08/16/16 08/16/16 08/16/16 08/16/16 13:30 14:00 15:00 16:00 Temp 99.9 99.9 Pulse 104 102 102 Resp 32 31 30 B/P 104/58 106/58 108/60 Pulse Ox 99 99 O2 Delivery Ventilator Ventilator Mechanical Ventilator 08/16/16 08/16/16 08/16/16 08/16/16 16:00 16:03 17:00 17:11 Temp 100.6 100.6 Pulse 100 100 Resp 34 29 B/P 104/57 102/56 Pulse Ox 99 99 100 99 O2 Delivery Ventilator Ventilator Ventilator Ventilator 08/16/16 08/16/16 08/16/16 08/16/16 18:00 19:00 19:43 20:00 Pulse 102 102 Resp 30 29 B/P 104/57 100/57 Pulse Ox 99 99 100 O2 Delivery Ventilator Ventilator Ventilator Mechanical Ventilator 08/16/16 08/16/16 08/16/16 08/16/16 20:00 21:00 22:00 22:05 Temp 99.2 99.2 Pulse 101 101 100 Resp 25 B/P 98/51 101/53 103/59 Pulse Ox 99 100 100 100 O2 Delivery Ventilator Ventilator Ventilator Ventilator 08/16/16 08/17/16 08/17/16 08/17/16 23:00 00:00 00:00 00:05 Temp 99.5 99.5 Pulse 101 103 Resp B/P 93/51 100/55 Pulse Ox 99 99 99 O2 Delivery Ventilator Mechanical Ventilator Ventilator Ventilator 08/17/16 08/17/16 08/17/16 08/17/16 00:10 01:00 02:00 02:05 Pulse 103 105 Resp 29 B/P 97/60 98/53 Pulse Ox 100 99 98 100 O2 Delivery Ventilator Ventilator Ventilator Ventilator 08/17/16 08/17/16 08/17/16 08/17/16 02:18 03:00 04:00 04:00 Temp 100.2 100.2 Pulse 105 103 Resp 21 B/P 103/58 105/61 Pulse Ox 98 99 99 O2 Delivery Ventilator Ventilator Ventilator Mechanical Ventilator 08/17/16 08/17/16 08/17/16 08/17/16 04:50 05:00 06:00 07:00 Temp 98.6 98.6 Pulse 102 90 97 Resp B/P 99/50 89/49 91/57 Pulse Ox 100 100 99 100 O2 Delivery Ventilator Ventilator Ventilator Ventilator 08/17/16 08/17/16 08/17/16 08/17/16 08:00 08:06 08:57 10:21 Resp 38 Pulse Ox 100 100 O2 Delivery Mechanical Ventilator Ventilator T-Tube T-Tube O2 Flow Rate 10.0 08/17/16 12:17 Pulse Ox 98 O2 Delivery T-Tube O2 Flow Rate 10.0 Intake and Output 08/16/16 08/16/16 08/17/16 15:00 23:00 07:00 Intake Total 310 ml 210 ml 1859.8 ml Output Total 240 ml 175 ml 500 ml Balance 70 ml 35 ml 1359.8 ml Nutrition Consultation Dietary Evaluation: Recommendations by RD: PPN/TPN Comments: Pt is s/p PEG placement 08/14 Rec. 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
[2016-08-17] MEDS ORDERED: POTASSIUM CHLORIDE 20 MEQ TABLET.ER. PO ONE (13:30)
[2016-08-17] MEDS ORDERED: POTASSIUM CHLORIDE 20 MEQ/15 ML ORAL LIQUID. PO ONE (13:30)
[2016-08-17] MEDS ORDERED: POTASSIUM CHLORIDE 10MEQ 100 ML IV PRN ×3 (13:30)
[2016-08-17] MEDS ORDERED: POTASSIUM CHLORIDE 20MEQ 50 ML IV PRN ×2 (13:30→14:00)
[2016-08-17] MEDS ORDERED: POTASSIUM CHLORIDE 20 MEQ TABLET.ER. PO PRN ×2 (13:30)
[2016-08-17] MEDS ORDERED: SODIUM PHOSPHATE 40 MMOL in IV DEXTROSE 5% 250 ML IV PRN (13:30)
--- NOTE | 2016-08-17 17:12 | PDOC ---
PULMONARY PROGRESS NOTES Subjective s/p trach no distress Vitals Vital Signs Date Time Temp Pulse Resp B/P Pulse Ox O2 Delivery O2 Flow Rate FiO2 08/17/16 15:59 100 Ventilator 08/17/16 12:17 10.0 08/17/16 10:21 38 08/17/16 07:00 98.6 97 91/57 98.6 Lungs: Clear, Other (There were no chest retractions or obvious respiratory distress present.) Cardiovascular: S1, S2, Other Abdomen: Soft, Non-tender, Other (hepatomegaly) Extremities: Other (edema) Skin: Warm Labs Laboratory Tests Test 08/16/16 05:00 08/17/16 06:20 08/17/16 09:45 White Blood Count 11.5x10^3/uL (4.0-11.0) 12.2x10^3/uL (4.0-11.0) Red Blood Count 2.28x10^6/uL (3.50-5.40) 2.70x10^6/uL (3.50-5.40) Hemoglobin 6.7g/dL (12.0-15.5) 7.9g/dL (12.0-15.5) Hematocrit 20.1% (36.0-47.0) 23.8% (36.0-47.0) Mean Corpuscular Volume 88fL (79-100) 88fL (79-100) Mean Corpuscular Hemoglobin 29pg (25-35) 29pg (25-35) Mean Corpuscular Hemoglobin Concent 33g/dL (31-37) 33g/dL (31-37) Red Cell Distribution Width 16.3% (11.5-14.5) 16.2% (11.5-14.5) Platelet Count 237x10^3/uL (140-400) 261x10^3/uL (140-400) Neutrophils (%) (Auto) 78% (31-73) 79% (31-73) Lymphocytes (%) (Auto) 10% (24-48) 10% (24-48) Monocytes (%) (Auto) 8% (0-9) 6% (0-9) Eosinophils (%) (Auto) 3% (0-3) 4% (0-3) Basophils (%) (Auto) 1% (0-3) 1% (0-3) Neutrophils # (Auto) 9.0x10^3uL (1.8-7.7) 9.7x10^3uL (1.8-7.7) Lymphocytes # (Auto) 1.1x10^3/uL (1.0-4.8) 1.2x10^3/uL (1.0-4.8) Monocytes # (Auto) 0.9x10^3/uL (0.0-1.1) 0.7x10^3/uL (0.0-1.1) Eosinophils # (Auto) 0.4x10^3/uL (0.0-0.7) 0.5x10^3/uL (0.0-0.7) Basophils # (Auto) 0.1x10^3/uL (0.0-0.2) 0.1x10^3/uL (0.0-0.2) Sodium Level 133mmol/L (136-145) 135mmol/L (136-145) Potassium Level 2.8mmol/L (3.5-5.1) 3.4mmol/L (3.5-5.1) Chloride Level 103mmol/L (98-107) 106mmol/L (98-107) Carbon Dioxide Level 21mmol/L (21-32) 20mmol/L (21-32) Anion Gap 9 (6-14) 9 (6-14) Blood Urea Nitrogen 17mg/dL (7-20) 18mg/dL (7-20) Creatinine 0.9mg/dL (0.6-1.0) 0.9mg/dL (0.6-1.0) Estimated GFR (Cockcroft-Gault) 68.7 68.7 Glucose Level 116mg/dL (70-99) 115mg/dL (70-99) Calcium Level 7.2mg/dL (8.5-10.1) 7.7mg/dL (8.5-10.1) Magnesium Level 1.6mg/dL (1.8-2.4) 2.0mg/dL (1.8-2.4) Phosphorus Level 3.5mg/dL (2.6-4.7) O2 Saturation 93% (92-99) Arterial Blood pH 7.45 (7.35-7.45) Arterial Blood pCO2 at Patient Temp 27mmHg (35-46) Arterial Blood pO2 at Patient Temp 64mmHg (75-108) Arterial Blood HCO3 18mmol/L (21-28) Arterial Blood Base Excess -5mmol/L (-3-3) FiO2 40 t tube Laboratory Tests Test 08/17/16 06:20 08/17/16 09:45 White Blood Count 12.2x10^3/uL (4.0-11.0) Red Blood Count 2.70x10^6/uL (3.50-5.40) Hemoglobin 7.9g/dL (12.0-15.5) Hematocrit 23.8% (36.0-47.0) Mean Corpuscular Volume 88fL (79-100) Mean Corpuscular Hemoglobin 29pg (25-35) Mean Corpuscular Hemoglobin Concent 33g/dL (31-37) Red Cell Distribution Width 16.2% (11.5-14.5) Platelet Count 261x10^3/uL (140-400) Neutrophils (%) (Auto) 79% (31-73) Lymphocytes (%) (Auto) 10% (24-48) Monocytes (%) (Auto) 6% (0-9) Eosinophils (%) (Auto) 4% (0-3) Basophils (%) (Auto) 1% (0-3) Neutrophils # (Auto) 9.7x10^3uL (1.8-7.7) Lymphocytes # (Auto) 1.2x10^3/uL (1.0-4.8) Monocytes # (Auto) 0.7x10^3/uL (0.0-1.1) Eosinophils # (Auto) 0.5x10^3/uL (0.0-0.7) Basophils # (Auto) 0.1x10^3/uL (0.0-0.2) Sodium Level 135mmol/L (136-145) Potassium Level 3.4mmol/L (3.5-5.1) Chloride Level 106mmol/L (98-107) Carbon Dioxide Level 20mmol/L (21-32) Anion Gap 9 (6-14) Blood Urea Nitrogen 18mg/dL (7-20) Creatinine 0.9mg/dL (0.6-1.0) Estimated GFR (Cockcroft-Gault) 68.7 Glucose Level 115mg/dL (70-99) Calcium Level 7.7mg/dL (8.5-10.1) Phosphorus Level 3.5mg/dL (2.6-4.7) Magnesium Level 2.0mg/dL (1.8-2.4) O2 Saturation 93% (92-99) Arterial Blood pH 7.45 (7.35-7.45) Arterial Blood pCO2 at Patient Temp 27mmHg (35-46) Arterial Blood pO2 at Patient Temp 64mmHg (75-108) Arterial Blood HCO3 18mmol/L (21-28) Arterial Blood Base Excess -5mmol/L (-3-3) FiO2 40 t tube Medications Active Scripts Medications Dose Route/Sig Days Date Category No Known Medications Prior To Admisstion (Info) Each 1 Each 08/06/16 Reported Impression . 1. Acute hypoxemic respiratory failure, multifactorial in etiology I think she will wean with time. 2. Continues to fail CPAP. will need Trach 3. Bilateral pulmonary nodules with cavitation, due to septic emboli. 4. Endocarditis. right sided, improving vegetations 5. ? chronic obstructive pulmonary disease. 6. Leukocytosis./fever 7. Anemia. 8. Thrombocytopenia. off lovenox 10. Intravenous drug abuse. 11. Tobacco habituation. 12. MSSA septicemia/pneumonia/ CHF today Plan . DOING BETTER WILL CONTINUE TO WEAN WITH PS SHE SHOULD BE WEANABLE s/p trach ct head/ chest reviewed Bronch with MSSA, antibiotics per ANGIE BRYSON MD Aug 17, 2016 17:12
[2016-08-17] MEDS: IV 1/2 NORMAL SALINE 1,000 ML IV SCH (20:50)
[2016-08-17] MEDS: POTASSIUM & SODIUM PHOSPHATES PACKET. PO SCH (20:50)
[2016-08-18] VITALS (20 sets, daily range): BP systolic 105–140; BP diastolic 63–88
[2016-08-18] MEDS: NAFCILLIN 2 GM in IV NORMAL SALINE 100ML 100 ML IV SCH ×6 (03:48→23:55)
[2016-08-18 06:56] LABS: BASO # 0.1 x10^3/uL (0.0-0.2); BASO % 0 % (0-3); EOS % 3 % (0-3); HEMATOCRIT 24.7 % (36.0-47.0); LYMPH # 1.4 x10^3/uL (1.0-4.8); LYMPH % 9 % (24-48); MEAN CORPUSCULAR HEMOGLOBIN 29 pg (25-35); MEAN CORPUSCULAR HGB CONC 33 g/dL (31-37); MEAN CORPUSCULAR VOLUME 88 fL (79-100); MONO % 7 % (0-9); NEUT % 81 % (31-73); PLATELET COUNT 345 x10^3/uL (140-400); RED BLOOD COUNT 2.81 x10^6/uL (3.50-5.40); RED CELL DISTRIBUTION WIDTH 15.9 % (11.5-14.5); WHITE BLOOD COUNT 16.7 x10^3/uL (4.0-11.0)
[2016-08-18 06:57] LABS: CALCIUM 7.2 mg/dL (8.5-10.1); CREATININE 0.8 mg/dL (0.6-1.0); GFR 78.7; POTASSIUM 3.6 mmol/L (3.5-5.1)
[2016-08-18] MEDS: IPRATRPIUM/ALBUTEROL 0.5/2.5MG 3 ML NEBU. NEB SCH ×4 (08:13→19:57)
[2016-08-18] MEDS: BUDESONIDE 0.5 MG/2 ML NEBU. NEB SCH ×2 (08:13→19:57)
[2016-08-18] MEDS: FAMOTIDINE 20 MG/2 ML VIAL IVP SCH ×2 (08:23→21:25)
[2016-08-18] MEDS: NYSTATIN TOPICAL POWDER 15GM BOTTLE. TP SCH ×2 (08:23→21:15)
[2016-08-18] MEDS: POTASSIUM & SODIUM PHOSPHATES PACKET. PO SCH (08:23)
--- NOTE | 2016-08-18 08:53 | PDOC ---
Infectious Disease Note Subjective Subjective Remains intubated via trach On sedation Persistent low-grade fevers Tube feedings Diarrhea ROS ROS noncommunicative Vital Sign Vital Signs Vital Signs Date Time Temp Pulse Resp B/P Pulse Ox O2 Delivery O2 Flow Rate FiO2 08/18/16 08:00 115 35 120/75 97 Ventilator 08/18/16 07:00 100.4 100.4 08/17/16 12:17 10.0 Physical Exam PHYSICAL EXAM GENERAL: Awake, calm HENT: Pupils equally round. + eye contact NECK: Trach, + secretions LUNGS: Less rhonchi HEART: S1S2 ABD: Mildly distended, soft, BS present. : [place] EXT: Generalized edema. 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 clean Labs Lab Laboratory Tests Test 08/17/16 09:45 08/18/16 06:15 O2 Saturation 93% (92-99) Arterial Blood pH 7.45 (7.35-7.45) Arterial Blood pCO2 at Patient Temp 27mmHg (35-46) Arterial Blood pO2 at Patient Temp 64mmHg (75-108) Arterial Blood HCO3 18mmol/L (21-28) Arterial Blood Base Excess -5mmol/L (-3-3) FiO2 40 t tube White Blood Count 16.7x10^3/uL (4.0-11.0) Red Blood Count 2.81x10^6/uL (3.50-5.40) Hemoglobin 8.0g/dL (12.0-15.5) Hematocrit 24.7% (36.0-47.0) Mean Corpuscular Volume 88fL (79-100) Mean Corpuscular Hemoglobin 29pg (25-35) Mean Corpuscular Hemoglobin Concent 33g/dL (31-37) Red Cell Distribution Width 15.9% (11.5-14.5) Platelet Count 345x10^3/uL (140-400) Neutrophils (%) (Auto) 81% (31-73) Lymphocytes (%) (Auto) 9% (24-48) Monocytes (%) (Auto) 7% (0-9) Eosinophils (%) (Auto) 3% (0-3) Basophils (%) (Auto) 0% (0-3) Neutrophils # (Auto) 13.5x10^3uL (1.8-7.7) Lymphocytes # (Auto) 1.4x10^3/uL (1.0-4.8) Monocytes # (Auto) 1.2x10^3/uL (0.0-1.1) Eosinophils # (Auto) 0.5x10^3/uL (0.0-0.7) Basophils # (Auto) 0.1x10^3/uL (0.0-0.2) Sodium Level 135mmol/L (136-145) Potassium Level 3.6mmol/L (3.5-5.1) Chloride Level 106mmol/L (98-107) Carbon Dioxide Level 21mmol/L (21-32) Anion Gap 8 (6-14) Blood Urea Nitrogen 16mg/dL (7-20) Creatinine 0.8mg/dL (0.6-1.0) Estimated GFR (Cockcroft-Gault) 78.7 Glucose Level 110mg/dL (70-99) Calcium Level 7.2mg/dL (8.5-10.1) Objective Assessment Fever ?reactive PRBCs Leukocytosis Acute anemia s/p PRBCs, 08/16 S/p Trach/PEG 08/13 MSSA sepsis 08/01 ([facility]) -Repeat BC positive, 08/05 & 08/07. Neg 08/09 Right-sided bacterial endocarditis. -TTE. 3.0 x 2.0cm mobile mass TV Multiple pulmonary nodules/septic emboli Acute Resp failure - Intubated ? developing ARDS. S/p Bronch 08/08. MSSA IV drug use. Hep C Ileus Renal insufficiency. Severe thrombocytopenia. improved Hepatosplenomegaly on CT Plan Plan of Care Continue Nafcillin. She will need a total of 6 weeks. Monitor WBC, temp Supportive care Critically ill Attending Co-Sign The patient was seen and interviewed as well as examined at the bedside. The chart was reviewed. The case was discussed. Agree with the plan of care. JAZMIN SOUSA APRN Aug 18, 2016 08:53 MARSHA MORFIN MD Aug 18, 2016 12:33
[2016-08-18] MEDS ORDERED: MAGNESIUM SULFATE 4GM 100 ML IV PRN (09:00)
[2016-08-18] MEDS: ENOXAPARIN 40 MG/0.4 ML SYRINGE. SQ SCH (12:30)
[2016-08-18 13:28] LABS: HCO3 ABG 20 mmol/L (21-28); PCO2 ABG 29 mmHg (35-46); PH ABG 7.45 (7.35-7.45); PO2 ABG 54 mmHg (75-108); SAT O2 ABG 89 % (92-99)
[2016-08-18 13:29] LABS: FIO2 ABG 40
--- NOTE | 2016-08-18 14:01 | PDOC ---
PULMONARY PROGRESS NOTES Subjective SITTING IN CHAIR ON TS Vitals Vital Signs Date Time Temp Pulse Resp B/P Pulse Ox O2 Delivery O2 Flow Rate FiO2 08/18/16 13:00 105 33 140/88 95 T-Tube 08/18/16 12:00 10.0 08/18/16 11:00 99.7 99.7 Lungs: Crackles, Other Cardiovascular: S1, S2, Other Abdomen: Soft, Non-tender Neuro Exam: Alert Extremities: Other (edema) Skin: Warm Labs Laboratory Tests Test 08/17/16 06:20 08/17/16 09:45 08/18/16 06:15 08/18/16 13:20 White Blood Count 12.2x10^3/uL (4.0-11.0) 16.7x10^3/uL (4.0-11.0) Red Blood Count 2.70x10^6/uL (3.50-5.40) 2.81x10^6/uL (3.50-5.40) Hemoglobin 7.9g/dL (12.0-15.5) 8.0g/dL (12.0-15.5) Hematocrit 23.8% (36.0-47.0) 24.7% (36.0-47.0) Mean Corpuscular Volume 88fL (79-100) 88fL (79-100) Mean Corpuscular Hemoglobin 29pg (25-35) 29pg (25-35) Mean Corpuscular Hemoglobin Concent 33g/dL (31-37) 33g/dL (31-37) Red Cell Distribution Width 16.2% (11.5-14.5) 15.9% (11.5-14.5) Platelet Count 261x10^3/uL (140-400) 345x10^3/uL (140-400) Neutrophils (%) (Auto) 79% (31-73) 81% (31-73) Lymphocytes (%) (Auto) 10% (24-48) 9% (24-48) Monocytes (%) (Auto) 6% (0-9) 7% (0-9) Eosinophils (%) (Auto) 4% (0-3) 3% (0-3) Basophils (%) (Auto) 1% (0-3) 0% (0-3) Neutrophils # (Auto) 9.7x10^3uL (1.8-7.7) 13.5x10^3uL (1.8-7.7) Lymphocytes # (Auto) 1.2x10^3/uL (1.0-4.8) 1.4x10^3/uL (1.0-4.8) Monocytes # (Auto) 0.7x10^3/uL (0.0-1.1) 1.2x10^3/uL (0.0-1.1) Eosinophils # (Auto) 0.5x10^3/uL (0.0-0.7) 0.5x10^3/uL (0.0-0.7) Basophils # (Auto) 0.1x10^3/uL (0.0-0.2) 0.1x10^3/uL (0.0-0.2) Sodium Level 135mmol/L (136-145) 135mmol/L (136-145) Potassium Level 3.4mmol/L (3.5-5.1) 3.6mmol/L (3.5-5.1) Chloride Level 106mmol/L (98-107) 106mmol/L (98-107) Carbon Dioxide Level 20mmol/L (21-32) 21mmol/L (21-32) Anion Gap 9 (6-14) 8 (6-14) Blood Urea Nitrogen 18mg/dL (7-20) 16mg/dL (7-20) Creatinine 0.9mg/dL (0.6-1.0) 0.8mg/dL (0.6-1.0) Estimated GFR (Cockcroft-Gault) 68.7 78.7 Glucose Level 115mg/dL (70-99) 110mg/dL (70-99) Calcium Level 7.7mg/dL (8.5-10.1) 7.2mg/dL (8.5-10.1) Phosphorus Level 3.5mg/dL (2.6-4.7) Magnesium Level 2.0mg/dL (1.8-2.4) O2 Saturation 93% (92-99) 89% (92-99) Arterial Blood pH 7.45 (7.35-7.45) 7.45 (7.35-7.45) Arterial Blood pCO2 at Patient Temp 27mmHg (35-46) 29mmHg (35-46) Arterial Blood pO2 at Patient Temp 64mmHg (75-108) 54mmHg (75-108) Arterial Blood HCO3 18mmol/L (21-28) 20mmol/L (21-28) Arterial Blood Base Excess -5mmol/L (-3-3) -4mmol/L (-3-3) FiO2 40 t tube 40 Laboratory Tests Test 08/18/16 06:15 08/18/16 13:20 White Blood Count 16.7x10^3/uL (4.0-11.0) Red Blood Count 2.81x10^6/uL (3.50-5.40) Hemoglobin 8.0g/dL (12.0-15.5) Hematocrit 24.7% (36.0-47.0) Mean Corpuscular Volume 88fL (79-100) Mean Corpuscular Hemoglobin 29pg (25-35) Mean Corpuscular Hemoglobin Concent 33g/dL (31-37) Red Cell Distribution Width 15.9% (11.5-14.5) Platelet Count 345x10^3/uL (140-400) Neutrophils (%) (Auto) 81% (31-73) Lymphocytes (%) (Auto) 9% (24-48) Monocytes (%) (Auto) 7% (0-9) Eosinophils (%) (Auto) 3% (0-3) Basophils (%) (Auto) 0% (0-3) Neutrophils # (Auto) 13.5x10^3uL (1.8-7.7) Lymphocytes # (Auto) 1.4x10^3/uL (1.0-4.8) Monocytes # (Auto) 1.2x10^3/uL (0.0-1.1) Eosinophils # (Auto) 0.5x10^3/uL (0.0-0.7) Basophils # (Auto) 0.1x10^3/uL (0.0-0.2) Sodium Level 135mmol/L (136-145) Potassium Level 3.6mmol/L (3.5-5.1) Chloride Level 106mmol/L (98-107) Carbon Dioxide Level 21mmol/L (21-32) Anion Gap 8 (6-14) Blood Urea Nitrogen 16mg/dL (7-20) Creatinine 0.8mg/dL (0.6-1.0) Estimated GFR (Cockcroft-Gault) 78.7 Glucose Level 110mg/dL (70-99) Calcium Level 7.2mg/dL (8.5-10.1) O2 Saturation 89% (92-99) Arterial Blood pH 7.45 (7.35-7.45) Arterial Blood pCO2 at Patient Temp 29mmHg (35-46) Arterial Blood pO2 at Patient Temp 54mmHg (75-108) Arterial Blood HCO3 20mmol/L (21-28) Arterial Blood Base Excess -4mmol/L (-3-3) FiO2 40 Medications Active Scripts Medications Dose Route/Sig Days Date Category No Known Medications Prior To Admisstion (Info) Each 1 Each 08/06/16 Reported Impression . 1. Acute hypoxemic respiratory failure, multifactorial in etiology I think she will wean with time. 2. PS DURING THE DAY 3. Bilateral pulmonary nodules with cavitation, due to septic emboli. 4. Endocarditis. right sided, improving vegetations 5. ? chronic obstructive pulmonary disease. 6. Leukocytosis./fever 7. Anemia. 8. Thrombocytopenia. off lovenox 10. Intravenous drug abuse. 11. Tobacco habituation. 12. MSSA septicemia/pneumonia/ CHF Plan . DOING BETTER WILL CONTINUE TO WEAN WITH PS SHE SHOULD BE WEANABLE s/p trach Bronch with MSSA, antibiotics per ID, SPOKE WITH ANGIE BEE MD Aug 18, 2016 14:00
--- NOTE | 2016-08-18 15:05 | PDOC ---
PROGRESS NOTES Chief Complaint Chief Complaint cc: septic emboli, IV drug use, respiratory failure. -Endocarditis -Resp failure on Vent - polysubstance abuse -Hep C, right -rotator cuff repair -Tobacco use -20lb weight loss over the last couple of months -Renal insufficiency -Pneumonia -Septic emboli -Anemia requiring transfusions History of Present Illness History of Present Illness Ms. Escamilla was sitting up in a chair with the ventilator tubing hooked up to her tracheal tube. Her ventilator settings were at A/C / 22 f / 450 VT / 35% FiO2. Her SpO2% was 92. We will continue to work on LTAC placement as she has had difficulty with being accepted. Vitals Vitals Vital Signs Date Time Temp Pulse Resp B/P Pulse Ox O2 Delivery O2 Flow Rate FiO2 08/18/16 14:00 118 33 133/83 95 T-Tube 08/18/16 12:00 10.0 08/18/16 11:00 99.7 99.7 Physical Exam General: Alert, No acute distress Heart: Normal S1, Normal S2, No murmurs Lungs: Clear, Other (Increased effort noted) Abdomen: Normal bowel sounds, Other (Hepatosplenomegaly present) Extremities: No cyanosis, No edema Skin: No breakdown, No significant lesion Labs LABS Laboratory Tests Test 08/18/16 06:15 08/18/16 13:20 White Blood Count 16.7x10^3/uL (4.0-11.0) Red Blood Count 2.81x10^6/uL (3.50-5.40) Hemoglobin 8.0g/dL (12.0-15.5) Hematocrit 24.7% (36.0-47.0) Mean Corpuscular Volume 88fL (79-100) Mean Corpuscular Hemoglobin 29pg (25-35) Mean Corpuscular Hemoglobin Concent 33g/dL (31-37) Red Cell Distribution Width 15.9% (11.5-14.5) Platelet Count 345x10^3/uL (140-400) Neutrophils (%) (Auto) 81% (31-73) Lymphocytes (%) (Auto) 9% (24-48) Monocytes (%) (Auto) 7% (0-9) Eosinophils (%) (Auto) 3% (0-3) Basophils (%) (Auto) 0% (0-3) Neutrophils # (Auto) 13.5x10^3uL (1.8-7.7) Lymphocytes # (Auto) 1.4x10^3/uL (1.0-4.8) Monocytes # (Auto) 1.2x10^3/uL (0.0-1.1) Eosinophils # (Auto) 0.5x10^3/uL (0.0-0.7) Basophils # (Auto) 0.1x10^3/uL (0.0-0.2) Sodium Level 135mmol/L (136-145) Potassium Level 3.6mmol/L (3.5-5.1) Chloride Level 106mmol/L (98-107) Carbon Dioxide Level 21mmol/L (21-32) Anion Gap 8 (6-14) Blood Urea Nitrogen 16mg/dL (7-20) Creatinine 0.8mg/dL (0.6-1.0) Estimated GFR (Cockcroft-Gault) 78.7 Glucose Level 110mg/dL (70-99) Calcium Level 7.2mg/dL (8.5-10.1) O2 Saturation 89% (92-99) Arterial Blood pH 7.45 (7.35-7.45) Arterial Blood pCO2 at Patient Temp 29mmHg (35-46) Arterial Blood pO2 at Patient Temp 54mmHg (75-108) Arterial Blood HCO3 20mmol/L (21-28) Arterial Blood Base Excess -4mmol/L (-3-3) FiO2 40 Review of Systems Review of Systems Ms. Escamilla reports she had been experiencing pain overnight. She is also feeling nauseous, which has been present for much of this week. Assessment and Plan Assessmemt and Plan Assessment: Ms. Escamilla initially presented with septic emboli, IV drug use, and respiratory failure. -Endocarditis -Resp failure on Vent - polysubstance abuse -Hep C, right -rotator cuff repair -Tobacco use -20lb weight loss over the last couple of months -Renal insufficiency -Pneumonia -Septic emboli -Anemia requiring transfusions Plan: 1. Pending LTAC decision 2. Continue breathing treatments 3. Nafcillin per ID 4. Enoxaparin PPX 5. Famotidine PPX with ventilator 6. Continue pain and sedative management 7. PT/OT/ST 8. Recheck labs 9. Monitor hemoglobin levels 10. Appreciate subspecialists' input Her prognosis is guarded. Problems: Comment Review of Relevant I have reviewed the following items shanta (where applicable) has been applied. Labs Laboratory Tests Test 08/17/16 06:20 08/17/16 09:45 08/18/16 06:15 08/18/16 13:20 White Blood Count 12.2x10^3/uL (4.0-11.0) 16.7x10^3/uL (4.0-11.0) Red Blood Count 2.70x10^6/uL (3.50-5.40) 2.81x10^6/uL (3.50-5.40) Hemoglobin 7.9g/dL (12.0-15.5) 8.0g/dL (12.0-15.5) Hematocrit 23.8% (36.0-47.0) 24.7% (36.0-47.0) Mean Corpuscular Volume 88fL (79-100) 88fL (79-100) Mean Corpuscular Hemoglobin 29pg (25-35) 29pg (25-35) Mean Corpuscular Hemoglobin Concent 33g/dL (31-37) 33g/dL (31-37) Red Cell Distribution Width 16.2% (11.5-14.5) 15.9% (11.5-14.5) Platelet Count 261x10^3/uL (140-400) 345x10^3/uL (140-400) Neutrophils (%) (Auto) 79% (31-73) 81% (31-73) Lymphocytes (%) (Auto) 10% (24-48) 9% (24-48) Monocytes (%) (Auto) 6% (0-9) 7% (0-9) Eosinophils (%) (Auto) 4% (0-3) 3% (0-3) Basophils (%) (Auto) 1% (0-3) 0% (0-3) Neutrophils # (Auto) 9.7x10^3uL (1.8-7.7) 13.5x10^3uL (1.8-7.7) Lymphocytes # (Auto) 1.2x10^3/uL (1.0-4.8) 1.4x10^3/uL (1.0-4.8) Monocytes # (Auto) 0.7x10^3/uL (0.0-1.1) 1.2x10^3/uL (0.0-1.1) Eosinophils # (Auto) 0.5x10^3/uL (0.0-0.7) 0.5x10^3/uL (0.0-0.7) Basophils # (Auto) 0.1x10^3/uL (0.0-0.2) 0.1x10^3/uL (0.0-0.2) Sodium Level 135mmol/L (136-145) 135mmol/L (136-145) Potassium Level 3.4mmol/L (3.5-5.1) 3.6mmol/L (3.5-5.1) Chloride Level 106mmol/L (98-107) 106mmol/L (98-107) Carbon Dioxide Level 20mmol/L (21-32) 21mmol/L (21-32) Anion Gap 9 (6-14) 8 (6-14) Blood Urea Nitrogen 18mg/dL (7-20) 16mg/dL (7-20) Creatinine 0.9mg/dL (0.6-1.0) 0.8mg/dL (0.6-1.0) Estimated GFR (Cockcroft-Gault) 68.7 78.7 Glucose Level 115mg/dL (70-99) 110mg/dL (70-99) Calcium Level 7.7mg/dL (8.5-10.1) 7.2mg/dL (8.5-10.1) Phosphorus Level 3.5mg/dL (2.6-4.7) Magnesium Level 2.0mg/dL (1.8-2.4) O2 Saturation 93% (92-99) 89% (92-99) Arterial Blood pH 7.45 (7.35-7.45) 7.45 (7.35-7.45) Arterial Blood pCO2 at Patient Temp 27mmHg (35-46) 29mmHg (35-46) Arterial Blood pO2 at Patient Temp 64mmHg (75-108) 54mmHg (75-108) Arterial Blood HCO3 18mmol/L (21-28) 20mmol/L (21-28) Arterial Blood Base Excess -5mmol/L (-3-3) -4mmol/L (-3-3) FiO2 40 t tube 40 Laboratory Tests Test 08/18/16 06:15 08/18/16 13:20 White Blood Count 16.7x10^3/uL (4.0-11.0) Red Blood Count 2.81x10^6/uL (3.50-5.40) Hemoglobin 8.0g/dL (12.0-15.5) Hematocrit 24.7% (36.0-47.0) Mean Corpuscular Volume 88fL (79-100) Mean Corpuscular Hemoglobin 29pg (25-35) Mean Corpuscular Hemoglobin Concent 33g/dL (31-37) Red Cell Distribution Width 15.9% (11.5-14.5) Platelet Count 345x10^3/uL (140-400) Neutrophils (%) (Auto) 81% (31-73) Lymphocytes (%) (Auto) 9% (24-48) Monocytes (%) (Auto) 7% (0-9) Eosinophils (%) (Auto) 3% (0-3) Basophils (%) (Auto) 0% (0-3) Neutrophils # (Auto) 13.5x10^3uL (1.8-7.7) Lymphocytes # (Auto) 1.4x10^3/uL (1.0-4.8) Monocytes # (Auto) 1.2x10^3/uL (0.0-1.1) Eosinophils # (Auto) 0.5x10^3/uL (0.0-0.7) Basophils # (Auto) 0.1x10^3/uL (0.0-0.2) Sodium Level 135mmol/L (136-145) Potassium Level 3.6mmol/L (3.5-5.1) Chloride Level 106mmol/L (98-107) Carbon Dioxide Level 21mmol/L (21-32) Anion Gap 8 (6-14) Blood Urea Nitrogen 16mg/dL (7-20) Creatinine 0.8mg/dL (0.6-1.0) Estimated GFR (Cockcroft-Gault) 78.7 Glucose Level 110mg/dL (70-99) Calcium Level 7.2mg/dL (8.5-10.1) O2 Saturation 89% (92-99) Arterial Blood pH 7.45 (7.35-7.45) Arterial Blood pCO2 at Patient Temp 29mmHg (35-46) Arterial Blood pO2 at Patient Temp 54mmHg (75-108) Arterial Blood HCO3 20mmol/L (21-28) Arterial Blood Base Excess -4mmol/L (-3-3) FiO2 40 Microbiology 08/09/16 Blood Culture - Final, Complete NO GROWTH AFTER 5 DAYS 08/08/16 AFB Specimen Processing Tissue - Final, Resulted 08/08/16 Acid Fast Bacilli Culture, Resulted Pending 08/08/16 Gram Stain - Final, Resulted 08/08/16 Fungal Culture, Resulted Pending 08/08/16 Fungal Culture Result 1, Resulted Pending Medications Current Medications Amino Acids/ Glycerin/ Electrolytes (Procalamine) 1,000 ml @ 100 mls/hr Q10H IV Last administered on 08/05/16 02:40; Start 08/02/16 at 03:00; Stop at 08:50; Status DC Morphine Sulfate 2 mg 2 mg PRN Q2HR PRN IV SEVERE PAIN Last administered on 11:59; Start 08/02/16 at 02:30; Stop 08/02/16 at 13:28; Status DC Daptomycin 220 mg/ Sodium Chloride 50 ml @ 100 mls/hr Q24H IV ; Start 08/02/16 at 09:15; Stop 08/02/16 at 15:58; Status DC Cefepime HCl 1 gm/ Sodium Chloride 50 ml @ 100 mls/hr Q12HR IV Last administered on 08/04/16 08:10; Start 08/02/16 at 10:00; Stop 08/04/16 at 10:33 ; Status DC Daptomycin/Sodium Chloride (Cubicin/Iv Sodium Chloride 0.9% 50ml) 50 ml @ 100 mls/hr ONCE ONCE IV ; Start 08/02/16 at 10:00; Stop 08/02/16 at 10:29; Status Cancel Potassium Chloride 40 meq 40 meq 1X ONCE PO Last administered on 08/02/16 10: 17; Start 08/02/16 at 09:45; Stop 08/02/16 at 09:46; Status DC Daptomycin/Sodium Chloride (Cubicin/Iv Sodium Chloride 0.9% 50ml) 50 ml @ 100 mls/hr Q24H IV Last administered on 08/03/16 09:43; Start 08/02/16 at 10:15; Stop 08/03/16 at 10:29; Status DC Potassium Chloride (Klor-Con) 40 meq 1X ONCE PO Last administered on 12:57; Start 08/02/16 at 12:30; Stop 08/02/16 at 12:36; Status DC Morphine Sulfate 5 mg PRN Q2HRS PRN IV MODERATE TO SEVERE PAIN Last administered on 08/04/16 08:16; Start 08/02/16 at 13:30 Morphine Sulfate 8 mg PRN Q2HRS PRN IV MODERATE TO SEVERE PAIN Last administered on 08/04/16 14:58; Start 08/02/16 at 13:30 Acetaminophen 650 mg 650 mg PRN Q6HRS PRN PO TEMP GREATER THAN 100.4 Last administered on 08/10/16 00:18; Start 08/02/16 at 14:45 Lactated Ringer's 1,000 ml @ 50 mls/hr Q20H IV ; Start 08/05/16 at 07:00; Stop 08/05/16 at 18:13; Status DC Daptomycin/Sodium Chloride (Cubicin/Iv Sodium Chloride 0.9% 50ml) 50 ml @ 100 mls/hr Q24H IV ; Start 08/03/16 at 11:00; Status Cancel Potassium Chloride (Klor-Con) 40 meq 1X ONCE PO Last administered on 17:41; Start 08/02/16 at 17:15; Stop 08/02/16 at 17:18; Status DC Potassium Chloride (Klor-Con) 40 meq BIDWMEALS PO ; Start 08/03/16 at 08:00; Stop 08/03/16 at 11:08; Status DC Morphine Sulfate 5 mg 1X ONCE IV Last administered on 08/02/16 21:45; Start 08/02/16 at 21:30; Stop 08/02/16 at 21:33; Status DC Lorazepam (Ativan) 1 mg 1X ONCE IV Last administered on 08/02/16 21:30; Start 08/02/16 at 21:30; Stop 08/02/16 at 21:33; Status DC Acetaminophen (Acetaminophen Supp) 650 mg PRN Q6HRS PRN OK MILD PAIN / TEMP Last administered on 08/13/16 03:13; Start 08/03/16 at 01:15 Albuterol/ Ipratropium (Duoneb) 3 ml RTQID NEB Last administered on 08/18/16 12:59; Start 08/03/16 at 08:00 Budesonide (Pulmicort) 0.5 mg RTBID NEB Last administered on 08/18/16 08:13; Start 08/03/16 at 08:00 Pantoprazole Sodium 40 mg 40 mg 1X ONCE IVP Last administered on 08/03/16 10: 06; Start 08/03/16 at 08:00; Stop 08/03/16 at 08:01; Status DC Daptomycin/Sodium Chloride (Cubicin/Iv Sodium Chloride 0.9% 50ml) 50 ml @ 100 mls/hr Q24H IV Last administered on 08/04/16 10:03; Start 08/04/16 at 10:00; Stop 08/04/16 at 10:33; Status DC Lorazepam (Ativan) 0.5 mg PRN Q6HRS PRN IV ANXIETY / AGITATION Last administered on 08/04/16 09:12; Start 08/03/16 at 11:15; Stop 08/07/16 at 11:02 ; Status DC Lorazepam (Ativan) 0.5 mg 1X ONCE IV Last administered on 08/04/16 10:00; Start 08/04/16 at 10:00; Stop 08/04/16 at 10:01; Status DC Morphine Sulfate 5 mg 1X ONCE IV Last administered on 08/04/16 10:00; Start 08/04/16 at 10:00; Stop 08/04/16 at 10:01; Status DC Lorazepam 0.5 mg 0.5 mg PRN Q4HRS PRN IV ANXIETY / AGITATION Last administered on 08/17/16 23:51; Start 08/04/16 at 10:00 Nafcillin Sodium 2 gm/Sodium Chloride 100 ml @ 200 mls/hr Q4HRS IV Last administered on 08/09/16 10:10; Start 08/04/16 at 12:00; Stop 08/09/16 at 11:49 ; Status DC Propofol (Diprivan) 100 ml @ As Directed STK-MED ONCE IV ; Start 08/04/16 at 16 :10; Stop 08/04/16 at 16:11; Status DC Succinylcholine Chloride (Anectine) 200 mg STK-MED ONCE .ROUTE ; Start 08/04/16 at 16:14; Stop 08/04/16 at 16:15; Status DC Succinylcholine Chloride 200 mg 200 mg 1X ONCE IV ; Start 08/04/16 at 16:45; Stop 08/04/16 at 16:46; Status DC Propofol (Diprivan) 100 ml @ 0 mls/hr CONT PRN IV SEE I/O RECORD Last administered on 08/17/16 10:18; Start 08/04/16 at 16:45 Lorazepam (Ativan) 0.5 mg 1X ONCE IV Last administered on 08/04/16 16:45; Start 08/04/16 at 16:45; Stop 08/04/16 at 16:46; Status DC Morphine Sulfate 5 mg 5 mg 1X ONCE IV Last administered on 08/04/16 16:44; Start 08/04/16 at 16:45; Stop 08/04/16 at 16:46; Status DC Fentanyl Citrate (Fentanyl 600 Mcg/30 ml RUG REPAIRER) 30 ml @ 0 mls/hr CONT PRN IV PROTOCOL Last administered on 08/18/16 02:17; Start 08/04/16 at 16:45 Chlorhexidine Gluconate (Peridex) 15 ml BID MM Last administered on 08/17/16 10:18; Start 08/04/16 at 21:00; Stop 08/17/16 at 19:36; Status DC Famotidine 20 mg 20 mg BID IVP Last administered on 08/18/16 08:23; Start at 17:00 Sodium Chloride (Iv Sodium Chloride 0.9% 1000ml Bag) 1,000 ml @ 100 mls/hr Q10H IV Last administered on 08/07/16 04:35; Start 08/05/16 at 09:00; Stop at 08:59; Status DC Succinylcholine Chloride (Anectine) 200 mg STK-MED ONCE .ROUTE ; Start 08/04/16 at 16:00; Stop 08/05/16 at 12:32; Status DC Lorazepam (Ativan) 2 mg 1X ONCE IV Last administered on 08/05/16 20:43; Start 08/05/16 at 21:00; Stop 08/05/16 at 21:01; Status DC Furosemide (Lasix) 40 mg 1X PRN PRN IV blood transfusion Last administered on 14:17; Start 08/06/16 at 08:00; Stop 08/07/16 at 07:59; Status DC Sodium Bicarbonate 50 meq 1X ONCE IV Last administered on 08/06/16 14:06; Start 08/06/16 at 12:00; Stop 08/06/16 at 12:01; Status DC Calcium Chloride 1,000 mg STK-MED ONCE IV ; Start 08/04/16 at 12:00; Stop at 15:13; Status DC Epinephrine HCl (Epinephrine Syringe) 2 mg STK-MED ONCE .ROUTE ; Start 08/04/16 at 12:00; Stop 08/06/16 at 15:13; Status DC Sodium Bicarbonate 100 meq 100 meq STK-MED ONCE .ROUTE ; Start 08/04/16 at 12:00 ; Stop 08/06/16 at 15:13; Status DC Amino Acids/ Glycerin/ Electrolytes (Procalamine) 1,000 ml @ 100 mls/hr Q10H IV Last administered on 08/08/16 12:33; Start 08/07/16 at 10:00; Stop at 09:42; Status DC Enoxaparin Sodium (Lovenox 40mg Syringe) 40 mg Q24H SQ Last administered on 13:10; Start 08/07/16 at 13:00; Stop 08/10/16 at 10:43; Status DC Vecuronium [place] (Norcuron Bolus) 10 mg STK-MED ONCE IV ; Start 08/07/16 at 13 :56; Stop 08/07/16 at 13:57; Status DC Vecuronium [place] (Norcuron Bolus) 6 mg 1X ONCE IV Last administered on 14:06; Start 08/07/16 at 14:00; Stop 08/07/16 at 14:05; Status DC Sodium Bicarbonate 50 meq 1X ONCE IV Last administered on 08/08/16 11:46; Start 08/08/16 at 11:45; Stop 08/08/16 at 11:46; Status DC Nystatin 1 james 1 james BID TP Last administered on 08/18/16 08:23; Start at 21:00 Linezolid 300 ml @ 300 mls/hr Q12HR IV Last administered on 08/14/16 20:51; Start 08/09/16 at 09:00; Stop 08/15/16 at 07:21; Status DC Sodium Chloride 1,000 ml @ 20 mls/hr Q24H IV Last administered on 08/17/16 20 :50; Start 08/09/16 at 09:45 Sodium Bicarbonate/ Dextrose 1,150 ml @ 100 mls/hr 1X ONCE IV Last administered on 08/09/16 12:25; Start 08/09/16 at 11:30; Stop 08/09/16 at 22:59 ; Status DC Piperacillin Sod/ Tazobactam Sod 1 each 1 each PRN DAILY PRN MC SEE COMMENTS; Start 08/09/16 at 12:00; Stop 08/14/16 at 07:40; Status DC Piperacillin Sod/ Tazobactam Sod/ Sodium Chloride (Zosyn/Iv Sodium Chloride 0.9 % 100ml) 100 ml @ 200 mls/hr Q6HRS IV Last administered on 08/14/16 05:58; Start 08/09/16 at 12:30; Stop 08/14/16 at 07:33; Status DC Vecuronium [place] 5 mg 5 mg PRN Q4HRS PRN IV INCREASED RESPIRATORY,NOT RELI Last administered on 08/11/16 02:56; Start 08/09/16 at 13:30 Potassium Chloride 50 ml @ 100 mls/hr Q1H IV ; Start 08/10/16 at 09:30; Stop at 10:59; Status Cancel Potassium Chloride (KCl Premix 10meq) 100 ml @ 100 mls/hr Q1H IV Last administered on 08/10/16 16:28; Start 08/10/16 at 10:30; Stop 08/10/16 at 14:29 ; Status DC Potassium Chloride 60 meq 60 meq 1X ONCE PEG Last administered on 08/10/16 11 :16; Start 08/10/16 at 11:00; Stop 08/10/16 at 11:01; Status DC Sodium Bicarbonate/ Dextrose 1,150 ml @ 100 mls/hr [id number] IV Last administered on 08/10/16 11:14; Start 08/10/16 at 11:00; Stop 08/10/16 at 22:29 ; Status DC Enoxaparin Sodium 40 mg 40 mg Q24H SQ ; Start 08/10/16 at 13:00; Stop 08/10/16 at 13:00; Status DC Micafungin Sodium/ Dextrose (Mycamine) 100 ml @ 100 mls/hr Q24H IV Last administered on 08/13/16 16:26; Start 08/11/16 at 16:00; Stop 08/14/16 at 07:33 ; Status DC Furosemide (Lasix) 40 mg 1X ONCE IVP Last administered on 08/12/16 08:38; Start 08/12/16 at 08:00; Stop 08/12/16 at 08:06; Status DC Morphine Sulfate 1 mg 1 mg PRN Q10MIN PRN IV SEVERE PAIN; Start 08/13/16 at 07: 00; Stop 08/14/16 at 06:59; Status DC Lactated Ringer's (Iv Lactated Ringers) 1,000 ml @ 0 mls/hr Q0M IV ; Start at 07:00; Stop 08/13/16 at 18:59; Status DC Lidocaine HCl 2 ml PRN 1X PRN ID PRIOR TO IV START; Start 08/13/16 at 07:00; Stop 08/14/16 at 06:59; Status DC Hydromorphone HCl (Dilaudid) 0.5 mg PRN Q10MIN PRN IV SEV PAIN, Second choice; Start 08/13/16 at 07:00; Stop 08/14/16 at 06:59; Status DC Prochlorperazine Edisylate (Compazine) 5 mg PACU PRN PRN IV NAUSEA, MRX1; Start 08/13/16 at 07:00; Stop 08/14/16 at 06:59; Status DC Morphine Sulfate 1 mg 1 mg PRN Q10MIN PRN IV SEVERE PAIN; Start 08/13/16 at 07: 00; Stop 08/14/16 at 06:59; Status DC Lactated Ringer's (Iv Lactated Ringers) 1,000 ml @ 0 mls/hr Q0M IV ; Start at 07:00; Stop 08/13/16 at 18:59; Status DC Lidocaine HCl 2 ml PRN 1X PRN ID PRIOR TO IV START; Start 08/13/16 at 07:00; Stop 08/14/16 at 06:59; Status DC Hydromorphone HCl (Dilaudid) 0.5 mg PRN Q10MIN PRN IV SEV PAIN, Second choice; Start 08/13/16 at 07:00; Stop 08/14/16 at 06:59; Status DC Prochlorperazine Edisylate 5 mg 5 mg PACU PRN PRN IV NAUSEA, MRX1; Start at 07:00; Stop 08/14/16 at 06:59; Status DC Potassium Chloride (KCl Premix 20meq) 50 ml @ 50 mls/hr Q1H IV Last administered on 08/13/16 07:57; Start 08/13/16 at 07:00; Stop 08/13/16 at 08:59 ; Status DC Rocuronium [place] 50 mg 50 mg STK-MED ONCE .ROUTE ; Start 08/13/16 at 12:50; Stop 08/13/16 at 12:51; Status DC Propofol (Diprivan) 20 ml @ As Directed STK-MED ONCE IV ; Start 08/13/16 at 12: 53; Stop 08/13/16 at 12:54; Status DC Sevoflurane 30 ml 30 ml STK-MED ONCE IH ; Start 08/13/16 at 14:04; Stop at 14:05; Status DC Albumin Human 250 ml @ 100 mls/hr 1X ONCE IV Last administered on 08/13/16 23:38; Start 08/13/16 at 18:00; Stop 08/13/16 at 20:29; Status DC Albumin Human 500 ml @ 100 mls/hr 1X ONCE IV Last administered on 08/13/16 18:15; Start 08/13/16 at 18:00; Stop 08/13/16 at 22:59; Status DC Potassium Chloride 50 ml @ 50 mls/hr Q1H IV Last administered on 08/14/16 10: 46; Start 08/14/16 at 08:00; Stop 08/14/16 at 09:59; Status DC Nafcillin Sodium/ Sodium Chloride (Iv Sodium Chloride 0.9% 100ml) 100 ml @ 200 mls/hr Q4HRS IV Last administered on 08/18/16 12:30; Start 08/14/16 at 08:00 Enoxaparin Sodium (Lovenox 40mg Syringe) 40 mg Q24H SQ Last administered on 12:30; Start 08/14/16 at 12:00 Potassium Chloride (KCl Oral Soln) 40 meq 1X ONCE PEG Last administered on 07:54; Start 08/16/16 at 07:00; Stop 08/16/16 at 07:01; Status DC Potassium Chloride 40 meq 40 meq 1X ONCE PEG Last administered on 08/16/16 14 :01; Start 08/16/16 at 12:00; Stop 08/16/16 at 12:01; Status DC Magnesium Sulfate/ Dextrose (Magnesium Sulfate PREMIX 2GM) 50 ml @ 25 mls/hr 1X ONCE IV Last administered on 08/16/16 17:14; Start 08/16/16 at 16:30; Stop 08/16/16 at 18:29; Status DC Potassium Chloride (Klor-Con) 40 meq 1X ONCE PO ; Start 08/17/16 at 13:30; Stop 08/17/16 at 13:31; Status Cancel Potassium Chloride 40 meq 40 meq 1X ONCE PO Last administered on 08/17/16 15: 34; Start 08/17/16 at 13:30; Stop 08/17/16 at 14:27; Status DC Potassium Chloride 100 ml @ 100 mls/hr PRN Q1HR PRN IV HYPOKALEMIA PER ICU PROTOCOL; Start 08/17/16 at 13:30 Potassium Chloride (KCl Premix 20meq) 50 ml @ 25 mls/hr PRN Q2HR PRN IV HYPOKALEMIA PER ICU PROTOCOL; Start 08/17/16 at 13:30 Potassium Chloride 40 meq 40 meq PRN Q2HR PRN PO HYPOKALEMIA PER ICU PROTOCOL; Start 08/17/16 at 13:30 Potassium Chloride 100 ml @ 100 mls/hr PRN Q1HR PRN IV HYPOKALEMIA PER ICU PROTOCOL; Start 08/17/16 at 13:30 Potassium Chloride (KCl Premix 20meq) 50 ml @ 25 mls/hr PRN Q2HR PRN IV HYPOKALEMIA PER ICU PROTOCOL; Start 08/17/16 at 13:30 Potassium Chloride 40 meq 40 meq PRN Q2HR PRN PO HYPOKALEMIA PER ICU PROTOCOL; Start 08/17/16 at 13:30 Potassium Chloride 100 ml @ 100 mls/hr PRN Q1HR PRN IV HYPOKALEMIA PER ICU PROTOCOL; Start 08/17/16 at 13:30 Potassium Chloride 50 ml @ 25 mls/hr PRN Q2HR PRN IV HYPOKALEMIA PER ICU PROTOCOL; Start 08/17/16 at 14:00 Magnesium Sulfate/ Dextrose (Magnesium Sulfate PREMIX 4GM) 100 ml @ 50 mls/hr PRN DAILY PRN IV HYPOMAGNESIA PER ICU PROTOCOL; Start 08/18/16 at 09:00 Potassium Phos/ Sodium Phos 1 pkt 1 pkt BID PO ; Start 08/17/16 at 21:00; Stop 08/18/16 at 09:01; Status DC Sodium Phosphate/ Dextrose 263.3333 ml @ 62.5 mls/hr PRN 1X PRN IV HYPOPHOSP PER ICU PROTOCOL; Start 08/17/16 at 13:30 Active Scripts Active Reported No Known Medications Prior To Admisstion (Info) Each 1 Each Vitals/I & O Vital Sign - Last 24 Hours 08/17/16 08/17/16 08/17/16 08/17/16 15:00 15:59 16:00 16:00 Pulse 114 118 Resp 31 30 B/P 113/66 107/58 Pulse Ox 100 100 100 O2 Delivery Ventilator Ventilator Ventilator Mechanical Ventilator 08/17/16 08/17/16 08/17/16 08/17/16 17:00 18:00 18:06 19:00 Pulse 118 118 115 Resp 34 36 28 B/P 114/67 116/67 115/69 Pulse Ox 100 97 100 95 O2 Delivery Ventilator Ventilator Ventilator Ventilator 08/17/16 08/17/16 08/17/16 08/17/16 19:50 20:00 20:00 21:00 Temp 100.4 100.4 Pulse 113 117 Resp 22 34 B/P 109/67 110/67 Pulse Ox 97 98 95 O2 Delivery Ventilator Ventilator Mechanical Ventilator Ventilator 08/17/16 08/17/16 08/17/16 08/17/16 21:15 22:00 23:00 23:10 Pulse 120 124 Resp 38 35 B/P 98/72 107/68 Pulse Ox 96 100 94 95 O2 Delivery Ventilator Ventilator Ventilator Ventilator 08/18/16 08/18/16 08/18/16 08/18/16 00:00 00:00 00:53 01:00 Temp 100.3 100.3 Pulse 116 116 Resp 27 36 B/P 112/72 105/65 Pulse Ox 97 98 97 O2 Delivery Mechanical Ventilator Ventilator Ventilator Ventilator 08/18/16 08/18/16 08/18/16 08/18/16 02:00 02:17 03:00 03:00 Pulse 119 118 Resp 30 34 28 28 B/P 113/71 116/77 Pulse Ox 96 96 96 96 O2 Delivery Ventilator Ventilator Ventilator Ventilator 08/18/16 08/18/16 08/18/16 08/18/16 03:25 04:00 04:00 05:00 Temp 100.8 100.8 Pulse 115 117 Resp 36 26 B/P 133/82 112/70 Pulse Ox 96 97 96 O2 Delivery Ventilator Ventilator Mechanical Ventilator Ventilator 08/18/16 08/18/16 08/18/16 08/18/16 05:10 06:00 07:00 08:00 Temp 100.4 100.4 Pulse 114 118 Resp 32 33 B/P 113/64 111/67 Pulse Ox 96 97 96 95 O2 Delivery Ventilator Ventilator Ventilator Ventilator 08/18/16 08/18/16 08/18/16 08/18/16 08:00 08:00 09:00 10:00 Pulse 115 120 118 Resp 35 35 33 B/P 120/75 117/70 128/82 Pulse Ox 97 96 98 O2 Delivery Mechanical Ventilator Ventilator Ventilator Ventilator 08/18/16 08/18/16 08/18/16 08/18/16 10:00 11:00 11:05 12:00 Temp 99.7 99.7 Pulse 118 Resp 33 B/P 127/80 Pulse Ox 95 98 95 O2 Delivery Ventilator Ventilator T-Tube T-Tube O2 Flow Rate 10.0 10.0 08/18/16 08/18/16 08/18/16 08/18/16 12:00 12:00 13:00 14:00 Pulse 113 105 118 Resp 28 33 33 B/P 127/82 140/88 133/83 Pulse Ox 94 95 95 O2 Delivery T-Tube T-piece T-Tube T-Tube Intake and Output 08/17/16 08/17/16 08/18/16 15:00 23:00 07:00 Intake Total 105 ml 1316.22 ml 1088 ml Output Total 690 ml 380 ml Balance 105 ml 626.22 ml 708 ml Nutrition Consultation Dietary Evaluation: Recommendations by RD: PPN/TPN Comments: Pt is s/p PEG placement 08/14 Rec. TF's with Fibersource HN, goal rate 45 ml/hr Maintenance flushes of 30 cc q8h while on IVF's Expected Outcomes/Goals: tolerate the TF's via PEG at goal rate meet 75% estimated nutrition needs Interpretation of weight loss: >7.5% in 3 months Malnutrition Findings: Food and Nutrition Intake (Mod: <75% est energy req 7days Body Fat Depletion (Non Severe: Mild Depletion Reduced Lockstitch Topstitcher Strength: N/A Reduced Lockstitch Topstitcher Strength (Non-Sev: N/A Malnutrition related to morbid: No Weight Status: Overweight Fluid Accumulation (N/A): N/A CODY BLACK III DO Aug 18, 2016 15:04
[2016-08-18] MEDS: IV 1/2 NORMAL SALINE 1,000 ML IV SCH (15:28)
[2016-08-19] VITALS (21 sets, daily range): BP systolic 86–125; BP diastolic 56–81
[2016-08-19] MEDS: NAFCILLIN 2 GM in IV NORMAL SALINE 100ML 100 ML IV SCH ×5 (03:51→20:32)
[2016-08-19 05:52] LABS: BASO # 0.1 x10^3/uL (0.0-0.2); BASO % 1 % (0-3); EOS % 4 % (0-3); HEMATOCRIT 22.6 % (36.0-47.0); HEMOGLOBIN 7.9 g/dL (12.0-15.5); LYMPH # 1.6 x10^3/uL (1.0-4.8); LYMPH % 10 % (24-48); MEAN CORPUSCULAR HEMOGLOBIN 30 pg (25-35); MEAN CORPUSCULAR HGB CONC 35 g/dL (31-37); MEAN CORPUSCULAR VOLUME 87 fL (79-100); MONO % 7 % (0-9); NEUT % 79 % (31-73); PLATELET COUNT 381 x10^3/uL (140-400); RED BLOOD COUNT 2.61 x10^6/uL (3.50-5.40); RED CELL DISTRIBUTION WIDTH 16.3 % (11.5-14.5); WHITE BLOOD COUNT 16.1 x10^3/uL (4.0-11.0)
[2016-08-19 06:11] LABS: CALCIUM 7.7 mg/dL (8.5-10.1); CREATININE 0.8 mg/dL (0.6-1.0); GFR 78.7; POTASSIUM 3.2 mmol/L (3.5-5.1)
[2016-08-19] MEDS ORDERED: POTASSIUM CHLORIDE 20 MEQ/15 ML ORAL LIQUID. PEG ONE ×2 (07:45→12:00)
[2016-08-19] MEDS: BUDESONIDE 0.5 MG/2 ML NEBU. NEB SCH ×2 (07:49→19:39)
[2016-08-19] MEDS: IPRATRPIUM/ALBUTEROL 0.5/2.5MG 3 ML NEBU. NEB SCH ×4 (07:49→19:39)
[2016-08-19 07:53] LABS: HCO3 ABG 20 mmol/L (21-28); PCO2 ABG 31 mmHg (35-46); PH ABG 7.43 (7.35-7.45); PO2 ABG 92 mmHg (75-108); SAT O2 ABG 97 % (92-99)
[2016-08-19 07:56] LABS: FIO2 ABG 35%
[2016-08-19] MEDS: NYSTATIN TOPICAL POWDER 15GM BOTTLE. TP SCH ×2 (07:58→20:33)
[2016-08-19] MEDS: FAMOTIDINE 20 MG/2 ML VIAL IVP SCH ×2 (07:58→20:33)
--- NOTE | 2016-08-19 08:36 | PDOC ---
Infectious Disease Note Subjective Subjective Remains intubated via trach On sedation Persistent low-grade fevers Tube feedings Diarrhea ROS ROS unable to do Vital Sign Vital Signs Vital Signs Date Time Temp Pulse Resp B/P Pulse Ox O2 Delivery O2 Flow Rate FiO2 08/19/16 07:40 98 Ventilator 08/19/16 06:00 110 26 106/66 08/19/16 04:00 99.8 99.8 08/18/16 12:00 10.0 Physical Exam PHYSICAL EXAM GENERAL: NAD, Alert on vent HEENT: PERRL, OC/OP NECK: Supple, no JVD, no LN LUNGS: Clear HEART: S1S2, no gallop, no murmur ABD: Soft, NT, no organomegaly, no rebound EXT: No edema, no cyanosis END MATCHER: Alert, oriented x 3 no focal deficit SKIN: No rash IV: ok Labs Lab Laboratory Tests Test 08/18/16 13:20 08/19/16 05:40 08/19/16 08:15 O2 Saturation 89% (92-99) 97% (92-99) Arterial Blood pH 7.45 (7.35-7.45) 7.43 (7.35-7.45) Arterial Blood pCO2 at Patient Temp 29mmHg (35-46) 31mmHg (35-46) Arterial Blood pO2 at Patient Temp 54mmHg (75-108) 92mmHg (75-108) Arterial Blood HCO3 20mmol/L (21-28) 20mmol/L (21-28) Arterial Blood Base Excess -4mmol/L (-3-3) -3mmol/L (-3-3) FiO2 40 35% White Blood Count 16.1x10^3/uL (4.0-11.0) Red Blood Count 2.61x10^6/uL (3.50-5.40) Hemoglobin 7.9g/dL (12.0-15.5) Hematocrit 22.6% (36.0-47.0) Mean Corpuscular Volume 87fL (79-100) Mean Corpuscular Hemoglobin 30pg (25-35) Mean Corpuscular Hemoglobin Concent 35g/dL (31-37) Red Cell Distribution Width 16.3% (11.5-14.5) Platelet Count 381x10^3/uL (140-400) Neutrophils (%) (Auto) 79% (31-73) Lymphocytes (%) (Auto) 10% (24-48) Monocytes (%) (Auto) 7% (0-9) Eosinophils (%) (Auto) 4% (0-3) Basophils (%) (Auto) 1% (0-3) Neutrophils # (Auto) 12.6x10^3uL (1.8-7.7) Lymphocytes # (Auto) 1.6x10^3/uL (1.0-4.8) Monocytes # (Auto) 1.1x10^3/uL (0.0-1.1) Eosinophils # (Auto) 0.6x10^3/uL (0.0-0.7) Basophils # (Auto) 0.1x10^3/uL (0.0-0.2) Sodium Level 139mmol/L (136-145) Potassium Level 3.2mmol/L (3.5-5.1) Chloride Level 108mmol/L (98-107) Carbon Dioxide Level 22mmol/L (21-32) Anion Gap 9 (6-14) Blood Urea Nitrogen 17mg/dL (7-20) Creatinine 0.8mg/dL (0.6-1.0) Estimated GFR (Cockcroft-Gault) 78.7 Glucose Level 119mg/dL (70-99) Calcium Level 7.7mg/dL (8.5-10.1) Objective Assessment Fever Leukocytosis S/p Trach/PEG 08/13 MSSA sepsis 08/01 ([facility]) -Repeat BC positive, 08/05 & 08/07. Neg 08/09 Right-sided bacterial endocarditis. -TTE. 3.0 x 2.0cm mobile mass TV Multiple pulmonary nodules/septic emboli Acute Resp failure - Intubated ? developing ARDS. S/p Bronch 08/08. MSSA IV drug use. Hep C Renal insufficiency. Hepatosplenomegaly on CT Plan Plan of Care Continue Nafcillin. She will need a total of 6 weeks. Monitor WBC, temp Supportive care MARSHA MORFIN MD August 19, 2016 08:36
--- NOTE | 2016-08-19 10:45 | PDOC ---
PULMONARY PROGRESS NOTES Subjective on CPAP Vitals Vital Signs Date Time Temp Pulse Resp B/P Pulse Ox O2 Delivery O2 Flow Rate FiO2 08/19/16 10:00 115 16 112/68 Ventilator 08/19/16 07:40 98 08/19/16 04:00 99.8 99.8 08/18/16 12:00 10.0 General: Alert, No acute distress Lungs: Other (decrease bs) Cardiovascular: S1, S2, Other Abdomen: Soft, Non-tender Neuro Exam: Alert Extremities: Other (edema) Skin: Warm Labs Laboratory Tests Test 08/18/16 06:15 08/18/16 13:20 08/19/16 05:40 08/19/16 08:15 White Blood Count 16.7x10^3/uL (4.0-11.0) 16.1x10^3/uL (4.0-11.0) Red Blood Count 2.81x10^6/uL (3.50-5.40) 2.61x10^6/uL (3.50-5.40) Hemoglobin 8.0g/dL (12.0-15.5) 7.9g/dL (12.0-15.5) Hematocrit 24.7% (36.0-47.0) 22.6% (36.0-47.0) Mean Corpuscular Volume 88fL (79-100) 87fL (79-100) Mean Corpuscular Hemoglobin 29pg (25-35) 30pg (25-35) Mean Corpuscular Hemoglobin Concent 33g/dL (31-37) 35g/dL (31-37) Red Cell Distribution Width 15.9% (11.5-14.5) 16.3% (11.5-14.5) Platelet Count 345x10^3/uL (140-400) 381x10^3/uL (140-400) Neutrophils (%) (Auto) 81% (31-73) 79% (31-73) Lymphocytes (%) (Auto) 9% (24-48) 10% (24-48) Monocytes (%) (Auto) 7% (0-9) 7% (0-9) Eosinophils (%) (Auto) 3% (0-3) 4% (0-3) Basophils (%) (Auto) 0% (0-3) 1% (0-3) Neutrophils # (Auto) 13.5x10^3uL (1.8-7.7) 12.6x10^3uL (1.8-7.7) Lymphocytes # (Auto) 1.4x10^3/uL (1.0-4.8) 1.6x10^3/uL (1.0-4.8) Monocytes # (Auto) 1.2x10^3/uL (0.0-1.1) 1.1x10^3/uL (0.0-1.1) Eosinophils # (Auto) 0.5x10^3/uL (0.0-0.7) 0.6x10^3/uL (0.0-0.7) Basophils # (Auto) 0.1x10^3/uL (0.0-0.2) 0.1x10^3/uL (0.0-0.2) Sodium Level 135mmol/L (136-145) 139mmol/L (136-145) Potassium Level 3.6mmol/L (3.5-5.1) 3.2mmol/L (3.5-5.1) Chloride Level 106mmol/L (98-107) 108mmol/L (98-107) Carbon Dioxide Level 21mmol/L (21-32) 22mmol/L (21-32) Anion Gap 8 (6-14) 9 (6-14) Blood Urea Nitrogen 16mg/dL (7-20) 17mg/dL (7-20) Creatinine 0.8mg/dL (0.6-1.0) 0.8mg/dL (0.6-1.0) Estimated GFR (Cockcroft-Gault) 78.7 78.7 Glucose Level 110mg/dL (70-99) 119mg/dL (70-99) Calcium Level 7.2mg/dL (8.5-10.1) 7.7mg/dL (8.5-10.1) O2 Saturation 89% (92-99) 97% (92-99) Arterial Blood pH 7.45 (7.35-7.45) 7.43 (7.35-7.45) Arterial Blood pCO2 at Patient Temp 29mmHg (35-46) 31mmHg (35-46) Arterial Blood pO2 at Patient Temp 54mmHg (75-108) 92mmHg (75-108) Arterial Blood HCO3 20mmol/L (21-28) 20mmol/L (21-28) Arterial Blood Base Excess -4mmol/L (-3-3) -3mmol/L (-3-3) FiO2 40 35% Laboratory Tests Test 08/18/16 13:20 08/19/16 05:40 08/19/16 08:15 O2 Saturation 89% (92-99) 97% (92-99) Arterial Blood pH 7.45 (7.35-7.45) 7.43 (7.35-7.45) Arterial Blood pCO2 at Patient Temp 29mmHg (35-46) 31mmHg (35-46) Arterial Blood pO2 at Patient Temp 54mmHg (75-108) 92mmHg (75-108) Arterial Blood HCO3 20mmol/L (21-28) 20mmol/L (21-28) Arterial Blood Base Excess -4mmol/L (-3-3) -3mmol/L (-3-3) FiO2 40 35% White Blood Count 16.1x10^3/uL (4.0-11.0) Red Blood Count 2.61x10^6/uL (3.50-5.40) Hemoglobin 7.9g/dL (12.0-15.5) Hematocrit 22.6% (36.0-47.0) Mean Corpuscular Volume 87fL (79-100) Mean Corpuscular Hemoglobin 30pg (25-35) Mean Corpuscular Hemoglobin Concent 35g/dL (31-37) Red Cell Distribution Width 16.3% (11.5-14.5) Platelet Count 381x10^3/uL (140-400) Neutrophils (%) (Auto) 79% (31-73) Lymphocytes (%) (Auto) 10% (24-48) Monocytes (%) (Auto) 7% (0-9) Eosinophils (%) (Auto) 4% (0-3) Basophils (%) (Auto) 1% (0-3) Neutrophils # (Auto) 12.6x10^3uL (1.8-7.7) Lymphocytes # (Auto) 1.6x10^3/uL (1.0-4.8) Monocytes # (Auto) 1.1x10^3/uL (0.0-1.1) Eosinophils # (Auto) 0.6x10^3/uL (0.0-0.7) Basophils # (Auto) 0.1x10^3/uL (0.0-0.2) Sodium Level 139mmol/L (136-145) Potassium Level 3.2mmol/L (3.5-5.1) Chloride Level 108mmol/L (98-107) Carbon Dioxide Level 22mmol/L (21-32) Anion Gap 9 (6-14) Blood Urea Nitrogen 17mg/dL (7-20) Creatinine 0.8mg/dL (0.6-1.0) Estimated GFR (Cockcroft-Gault) 78.7 Glucose Level 119mg/dL (70-99) Calcium Level 7.7mg/dL (8.5-10.1) Medications Active Scripts Medications Dose Route/Sig Days Date Category No Known Medications Prior To Admisstion (Info) Each 1 Each 08/06/16 Reported Impression . 1. Acute hypoxemic respiratory failure, multifactorial in etiology I think she will wean with time. 2. will try T-piece today 3. Bilateral pulmonary nodules with cavitation, due to septic emboli. 4. Endocarditis. right sided, improving vegetations 5. ? chronic obstructive pulmonary disease. 6. Leukocytosis./fever 7. Anemia. 8. Thrombocytopenia. off lovenox 10. Intravenous drug abuse. 11. Tobacco habituation. 12. MSSA septicemia/pneumonia/ CHF Plan . WILL CONTINUE TO WEAN WITH PS/ T-PEICE SHE SHOULD BE WEANABLE s/p trach Bronch with MSSA, antibiotics per ID, SPOKE WITH CARLEY SIDHU MD August 19, 2016 10:45
[2016-08-19] MEDS ORDERED: ALPRAZolam 0.5 MG TABLET PO ONE (11:15)
[2016-08-19] MEDS: ENOXAPARIN 40 MG/0.4 ML SYRINGE. SQ SCH (11:37)
--- NOTE | 2016-08-19 12:00 | PDOC ---
PROGRESS NOTES Chief Complaint Chief Complaint cc: Septic emboli, IV drug use, respiratory failure -Endocarditis -Resp failure on Vent -Polysubstance abuse -Hep C, right -Rotator cuff repair -Tobacco use -20lb weight loss over the last couple of months -Renal insufficiency -Pneumonia -Septic emboli -Anemia requiring transfusions History of Present Illness History of Present Illness Ms. Escamilla was lying in bed with ventilator tubing hooked up to her tracheal tube. Ventilator settings were at spontaneous / 16 f / 450 VT / 35% FiO2. SpO2% was 99. Patient reports having pain everywhere. Vitals Vitals Vital Signs Date Time Temp Pulse Resp B/P Pulse Ox O2 Delivery O2 Flow Rate FiO2 08/19/16 11:47 112 28 119/77 97 Ventilator 08/19/16 04:00 99.8 99.8 08/18/16 12:00 10.0 Physical Exam General: Alert, No acute distress Heart: Normal S1, Normal S2, No murmurs Lungs: Other (decrease bs) Abdomen: Normal bowel sounds, Other (Hepatosplenomegaly present) Extremities: No cyanosis, No edema Skin: No breakdown, No significant lesion Labs LABS Laboratory Tests Test 08/18/16 13:20 08/19/16 05:40 08/19/16 08:15 O2 Saturation 89% (92-99) 97% (92-99) Arterial Blood pH 7.45 (7.35-7.45) 7.43 (7.35-7.45) Arterial Blood pCO2 at Patient Temp 29mmHg (35-46) 31mmHg (35-46) Arterial Blood pO2 at Patient Temp 54mmHg (75-108) 92mmHg (75-108) Arterial Blood HCO3 20mmol/L (21-28) 20mmol/L (21-28) Arterial Blood Base Excess -4mmol/L (-3-3) -3mmol/L (-3-3) FiO2 40 35% White Blood Count 16.1x10^3/uL (4.0-11.0) Red Blood Count 2.61x10^6/uL (3.50-5.40) Hemoglobin 7.9g/dL (12.0-15.5) Hematocrit 22.6% (36.0-47.0) Mean Corpuscular Volume 87fL (79-100) Mean Corpuscular Hemoglobin 30pg (25-35) Mean Corpuscular Hemoglobin Concent 35g/dL (31-37) Red Cell Distribution Width 16.3% (11.5-14.5) Platelet Count 381x10^3/uL (140-400) Neutrophils (%) (Auto) 79% (31-73) Lymphocytes (%) (Auto) 10% (24-48) Monocytes (%) (Auto) 7% (0-9) Eosinophils (%) (Auto) 4% (0-3) Basophils (%) (Auto) 1% (0-3) Neutrophils # (Auto) 12.6x10^3uL (1.8-7.7) Lymphocytes # (Auto) 1.6x10^3/uL (1.0-4.8) Monocytes # (Auto) 1.1x10^3/uL (0.0-1.1) Eosinophils # (Auto) 0.6x10^3/uL (0.0-0.7) Basophils # (Auto) 0.1x10^3/uL (0.0-0.2) Sodium Level 139mmol/L (136-145) Potassium Level 3.2mmol/L (3.5-5.1) Chloride Level 108mmol/L (98-107) Carbon Dioxide Level 22mmol/L (21-32) Anion Gap 9 (6-14) Blood Urea Nitrogen 17mg/dL (7-20) Creatinine 0.8mg/dL (0.6-1.0) Estimated GFR (Cockcroft-Gault) 78.7 Glucose Level 119mg/dL (70-99) Calcium Level 7.7mg/dL (8.5-10.1) Review of Systems Review of Systems Denies vomiting Denies blurry vision Assessment and Plan Assessmemt and Plan Assessment: -Septic emboli, IV drug use, respiratory failure -Endocarditis -Resp failure on Vent -Polysubstance abuse -Hep C, right -Rotator cuff repair -Tobacco use -20lb weight loss over the last couple of months -Renal insufficiency -Pneumonia -Septic emboli -Anemia requiring transfusions Plan: Continue current medication regime and adjust accordingly as needed Continue proper care of patient's trach and PEG tube Adjust patient's ventilator as needed Continue to work on LTAC placement as she has had difficulty with being accepted Continue DVT precautions as patient is unable to ambulate due to ventilator Problems: Comment Review of Relevant I have reviewed the following items shanta (where applicable) has been applied. Labs Laboratory Tests Test 08/18/16 06:15 08/18/16 13:20 08/19/16 05:40 08/19/16 08:15 White Blood Count 16.7x10^3/uL (4.0-11.0) 16.1x10^3/uL (4.0-11.0) Red Blood Count 2.81x10^6/uL (3.50-5.40) 2.61x10^6/uL (3.50-5.40) Hemoglobin 8.0g/dL (12.0-15.5) 7.9g/dL (12.0-15.5) Hematocrit 24.7% (36.0-47.0) 22.6% (36.0-47.0) Mean Corpuscular Volume 88fL (79-100) 87fL (79-100) Mean Corpuscular Hemoglobin 29pg (25-35) 30pg (25-35) Mean Corpuscular Hemoglobin Concent 33g/dL (31-37) 35g/dL (31-37) Red Cell Distribution Width 15.9% (11.5-14.5) 16.3% (11.5-14.5) Platelet Count 345x10^3/uL (140-400) 381x10^3/uL (140-400) Neutrophils (%) (Auto) 81% (31-73) 79% (31-73) Lymphocytes (%) (Auto) 9% (24-48) 10% (24-48) Monocytes (%) (Auto) 7% (0-9) 7% (0-9) Eosinophils (%) (Auto) 3% (0-3) 4% (0-3) Basophils (%) (Auto) 0% (0-3) 1% (0-3) Neutrophils # (Auto) 13.5x10^3uL (1.8-7.7) 12.6x10^3uL (1.8-7.7) Lymphocytes # (Auto) 1.4x10^3/uL (1.0-4.8) 1.6x10^3/uL (1.0-4.8) Monocytes # (Auto) 1.2x10^3/uL (0.0-1.1) 1.1x10^3/uL (0.0-1.1) Eosinophils # (Auto) 0.5x10^3/uL (0.0-0.7) 0.6x10^3/uL (0.0-0.7) Basophils # (Auto) 0.1x10^3/uL (0.0-0.2) 0.1x10^3/uL (0.0-0.2) Sodium Level 135mmol/L (136-145) 139mmol/L (136-145) Potassium Level 3.6mmol/L (3.5-5.1) 3.2mmol/L (3.5-5.1) Chloride Level 106mmol/L (98-107) 108mmol/L (98-107) Carbon Dioxide Level 21mmol/L (21-32) 22mmol/L (21-32) Anion Gap 8 (6-14) 9 (6-14) Blood Urea Nitrogen 16mg/dL (7-20) 17mg/dL (7-20) Creatinine 0.8mg/dL (0.6-1.0) 0.8mg/dL (0.6-1.0) Estimated GFR (Cockcroft-Gault) 78.7 78.7 Glucose Level 110mg/dL (70-99) 119mg/dL (70-99) Calcium Level 7.2mg/dL (8.5-10.1) 7.7mg/dL (8.5-10.1) O2 Saturation 89% (92-99) 97% (92-99) Arterial Blood pH 7.45 (7.35-7.45) 7.43 (7.35-7.45) Arterial Blood pCO2 at Patient Temp 29mmHg (35-46) 31mmHg (35-46) Arterial Blood pO2 at Patient Temp 54mmHg (75-108) 92mmHg (75-108) Arterial Blood HCO3 20mmol/L (21-28) 20mmol/L (21-28) Arterial Blood Base Excess -4mmol/L (-3-3) -3mmol/L (-3-3) FiO2 40 35% Laboratory Tests Test 08/18/16 13:20 08/19/16 05:40 08/19/16 08:15 O2 Saturation 89% (92-99) 97% (92-99) Arterial Blood pH 7.45 (7.35-7.45) 7.43 (7.35-7.45) Arterial Blood pCO2 at Patient Temp 29mmHg (35-46) 31mmHg (35-46) Arterial Blood pO2 at Patient Temp 54mmHg (75-108) 92mmHg (75-108) Arterial Blood HCO3 20mmol/L (21-28) 20mmol/L (21-28) Arterial Blood Base Excess -4mmol/L (-3-3) -3mmol/L (-3-3) FiO2 40 35% White Blood Count 16.1x10^3/uL (4.0-11.0) Red Blood Count 2.61x10^6/uL (3.50-5.40) Hemoglobin 7.9g/dL (12.0-15.5) Hematocrit 22.6% (36.0-47.0) Mean Corpuscular Volume 87fL (79-100) Mean Corpuscular Hemoglobin 30pg (25-35) Mean Corpuscular Hemoglobin Concent 35g/dL (31-37) Red Cell Distribution Width 16.3% (11.5-14.5) Platelet Count 381x10^3/uL (140-400) Neutrophils (%) (Auto) 79% (31-73) Lymphocytes (%) (Auto) 10% (24-48) Monocytes (%) (Auto) 7% (0-9) Eosinophils (%) (Auto) 4% (0-3) Basophils (%) (Auto) 1% (0-3) Neutrophils # (Auto) 12.6x10^3uL (1.8-7.7) Lymphocytes # (Auto) 1.6x10^3/uL (1.0-4.8) Monocytes # (Auto) 1.1x10^3/uL (0.0-1.1) Eosinophils # (Auto) 0.6x10^3/uL (0.0-0.7) Basophils # (Auto) 0.1x10^3/uL (0.0-0.2) Sodium Level 139mmol/L (136-145) Potassium Level 3.2mmol/L (3.5-5.1) Chloride Level 108mmol/L (98-107) Carbon Dioxide Level 22mmol/L (21-32) Anion Gap 9 (6-14) Blood Urea Nitrogen 17mg/dL (7-20) Creatinine 0.8mg/dL (0.6-1.0) Estimated GFR (Cockcroft-Gault) 78.7 Glucose Level 119mg/dL (70-99) Calcium Level 7.7mg/dL (8.5-10.1) Microbiology 08/09/16 Blood Culture - Final, Complete NO GROWTH AFTER 5 DAYS 08/08/16 AFB Specimen Processing Tissue - Final, Resulted 08/08/16 Acid Fast Bacilli Culture, Resulted Pending 08/08/16 Gram Stain - Final, Resulted 08/08/16 Fungal Culture, Resulted Pending 08/08/16 Fungal Culture Result 1, Resulted Pending Medications Current Medications Amino Acids/ Glycerin/ Electrolytes (Procalamine) 1,000 ml @ 100 mls/hr Q10H IV Last administered on 08/05/16 02:40; Start 08/02/16 at 03:00; Stop at 08:50; Status DC Morphine Sulfate 2 mg 2 mg PRN Q2HR PRN IV SEVERE PAIN Last administered on 11:59; Start 08/02/16 at 02:30; Stop 08/02/16 at 13:28; Status DC Daptomycin 220 mg/ Sodium Chloride 50 ml @ 100 mls/hr Q24H IV ; Start 08/02/16 at 09:15; Stop 08/02/16 at 15:58; Status DC Cefepime HCl 1 gm/ Sodium Chloride 50 ml @ 100 mls/hr Q12HR IV Last administered on 08/04/16 08:10; Start 08/02/16 at 10:00; Stop 08/04/16 at 10:33 ; Status DC Daptomycin/Sodium Chloride (Cubicin/Iv Sodium Chloride 0.9% 50ml) 50 ml @ 100 mls/hr ONCE ONCE IV ; Start 08/02/16 at 10:00; Stop 08/02/16 at 10:29; Status Cancel Potassium Chloride 40 meq 40 meq 1X ONCE PO Last administered on 08/02/16 10: 17; Start 08/02/16 at 09:45; Stop 08/02/16 at 09:46; Status DC Daptomycin/Sodium Chloride (Cubicin/Iv Sodium Chloride 0.9% 50ml) 50 ml @ 100 mls/hr Q24H IV Last administered on 08/03/16 09:43; Start 08/02/16 at 10:15; Stop 08/03/16 at 10:29; Status DC Potassium Chloride (Klor-Con) 40 meq 1X ONCE PO Last administered on 12:57; Start 08/02/16 at 12:30; Stop 08/02/16 at 12:36; Status DC Morphine Sulfate 5 mg PRN Q2HRS PRN IV MODERATE TO SEVERE PAIN Last administered on 08/04/16 08:16; Start 08/02/16 at 13:30 Morphine Sulfate 8 mg PRN Q2HRS PRN IV MODERATE TO SEVERE PAIN Last administered on 08/04/16 14:58; Start 08/02/16 at 13:30 Acetaminophen 650 mg 650 mg PRN Q6HRS PRN PO TEMP GREATER THAN 100.4 Last administered on 08/10/16 00:18; Start 08/02/16 at 14:45 Lactated Ringer's 1,000 ml @ 50 mls/hr Q20H IV ; Start 08/05/16 at 07:00; Stop 08/05/16 at 18:13; Status DC Daptomycin/Sodium Chloride (Cubicin/Iv Sodium Chloride 0.9% 50ml) 50 ml @ 100 mls/hr Q24H IV ; Start 08/03/16 at 11:00; Status Cancel Potassium Chloride (Klor-Con) 40 meq 1X ONCE PO Last administered on 17:41; Start 08/02/16 at 17:15; Stop 08/02/16 at 17:18; Status DC Potassium Chloride (Klor-Con) 40 meq BIDWMEALS PO ; Start 08/03/16 at 08:00; Stop 08/03/16 at 11:08; Status DC Morphine Sulfate 5 mg 1X ONCE IV Last administered on 08/02/16 21:45; Start 08/02/16 at 21:30; Stop 08/02/16 at 21:33; Status DC Lorazepam (Ativan) 1 mg 1X ONCE IV Last administered on 08/02/16 21:30; Start 08/02/16 at 21:30; Stop 08/02/16 at 21:33; Status DC Acetaminophen (Acetaminophen Supp) 650 mg PRN Q6HRS PRN NM MILD PAIN / TEMP Last administered on 08/13/16 03:13; Start 08/03/16 at 01:15 Albuterol/ Ipratropium (Duoneb) 3 ml RTQID NEB Last administered on 08/19/16 11 :33; Start 08/03/16 at 08:00 Budesonide (Pulmicort) 0.5 mg RTBID NEB Last administered on 08/19/16 07:49; Start 08/03/16 at 08:00 Pantoprazole Sodium 40 mg 40 mg 1X ONCE IVP Last administered on 08/03/16 10: 06; Start 08/03/16 at 08:00; Stop 08/03/16 at 08:01; Status DC Daptomycin/Sodium Chloride (Cubicin/Iv Sodium Chloride 0.9% 50ml) 50 ml @ 100 mls/hr Q24H IV Last administered on 08/04/16 10:03; Start 08/04/16 at 10:00; Stop 08/04/16 at 10:33; Status DC Lorazepam (Ativan) 0.5 mg PRN Q6HRS PRN IV ANXIETY / AGITATION Last administered on 08/04/16 09:12; Start 08/03/16 at 11:15; Stop 08/07/16 at 11:02 ; Status DC Lorazepam (Ativan) 0.5 mg 1X ONCE IV Last administered on 08/04/16 10:00; Start 08/04/16 at 10:00; Stop 08/04/16 at 10:01; Status DC Morphine Sulfate 5 mg 1X ONCE IV Last administered on 08/04/16 10:00; Start 08/04/16 at 10:00; Stop 08/04/16 at 10:01; Status DC Lorazepam 0.5 mg 0.5 mg PRN Q4HRS PRN IV ANXIETY / AGITATION Last administered on 08/19/16 04:42; Start 08/04/16 at 10:00 Nafcillin Sodium 2 gm/Sodium Chloride 100 ml @ 200 mls/hr Q4HRS IV Last administered on 08/09/16 10:10; Start 08/04/16 at 12:00; Stop 08/09/16 at 11:49 ; Status DC Propofol (Diprivan) 100 ml @ As Directed STK-MED ONCE IV ; Start 08/04/16 at 16 :10; Stop 08/04/16 at 16:11; Status DC Succinylcholine Chloride (Anectine) 200 mg STK-MED ONCE .ROUTE ; Start 08/04/16 at 16:14; Stop 08/04/16 at 16:15; Status DC Succinylcholine Chloride 200 mg 200 mg 1X ONCE IV ; Start 08/04/16 at 16:45; Stop 08/04/16 at 16:46; Status DC Propofol (Diprivan) 100 ml @ 0 mls/hr CONT PRN IV SEE I/O RECORD Last administered on 08/17/16 10:18; Start 08/04/16 at 16:45 Lorazepam (Ativan) 0.5 mg 1X ONCE IV Last administered on 08/04/16 16:45; Start 08/04/16 at 16:45; Stop 08/04/16 at 16:46; Status DC Morphine Sulfate 5 mg 5 mg 1X ONCE IV Last administered on 08/04/16 16:44; Start 08/04/16 at 16:45; Stop 08/04/16 at 16:46; Status DC Fentanyl Citrate (Fentanyl 600 Mcg/30 ml [employer]) 30 ml @ 0 mls/hr CONT PRN IV PROTOCOL Last administered on 08/19/16 02:57; Start 08/04/16 at 16:45 Chlorhexidine Gluconate (Peridex) 15 ml BID MM Last administered on 08/17/16 10:18; Start 08/04/16 at 21:00; Stop 08/17/16 at 19:36; Status DC Famotidine 20 mg 20 mg BID IVP Last administered on 08/19/16 07:58; Start 08/04 at 17:00 Sodium Chloride (Iv Sodium Chloride 0.9% 1000ml Bag) 1,000 ml @ 100 mls/hr Q10H IV Last administered on 08/07/16 04:35; Start 08/05/16 at 09:00; Stop at 08:59; Status DC Succinylcholine Chloride (Anectine) 200 mg STK-MED ONCE .ROUTE ; Start 08/04/16 at 16:00; Stop 08/05/16 at 12:32; Status DC Lorazepam (Ativan) 2 mg 1X ONCE IV Last administered on 08/05/16 20:43; Start 08/05/16 at 21:00; Stop 08/05/16 at 21:01; Status DC Furosemide (Lasix) 40 mg 1X PRN PRN IV blood transfusion Last administered on 14:17; Start 08/06/16 at 08:00; Stop 08/07/16 at 07:59; Status DC Sodium Bicarbonate 50 meq 1X ONCE IV Last administered on 08/06/16 14:06; Start 08/06/16 at 12:00; Stop 08/06/16 at 12:01; Status DC Calcium Chloride 1,000 mg STK-MED ONCE IV ; Start 08/04/16 at 12:00; Stop at 15:13; Status DC Epinephrine HCl (Epinephrine Syringe) 2 mg STK-MED ONCE .ROUTE ; Start 08/04/16 at 12:00; Stop 08/06/16 at 15:13; Status DC Sodium Bicarbonate 100 meq 100 meq STK-MED ONCE .ROUTE ; Start 08/04/16 at 12:00 ; Stop 08/06/16 at 15:13; Status DC Amino Acids/ Glycerin/ Electrolytes (Procalamine) 1,000 ml @ 100 mls/hr Q10H IV Last administered on 08/08/16 12:33; Start 08/07/16 at 10:00; Stop at 09:42; Status DC Enoxaparin Sodium (Lovenox 40mg Syringe) 40 mg Q24H SQ Last administered on 13:10; Start 08/07/16 at 13:00; Stop 08/10/16 at 10:43; Status DC Vecuronium Jenkinjones (Norcuron Bolus) 10 mg STK-MED ONCE IV ; Start 08/07/16 at 13 :56; Stop 08/07/16 at 13:57; Status DC Vecuronium [place]kin[place]ones (Norcuron Bolus) 6 mg 1X ONCE IV Last administered on 14:06; Start 08/07/16 at 14:00; Stop 08/07/16 at 14:05; Status DC Sodium Bicarbonate 50 meq 1X ONCE IV Last administered on 08/08/16 11:46; Start 08/08/16 at 11:45; Stop 08/08/16 at 11:46; Status DC Nystatin 1 james 1 james BID TP Last administered on 08/19/16 07:58; Start at 21:00 Linezolid 300 ml @ 300 mls/hr Q12HR IV Last administered on 08/14/16 20:51; Start 08/09/16 at 09:00; Stop 08/15/16 at 07:21; Status DC Sodium Chloride 1,000 ml @ 20 mls/hr Q24H IV Last administered on 08/18/16 15 :28; Start 08/09/16 at 09:45 Sodium Bicarbonate/ Dextrose 1,150 ml @ 100 mls/hr 1X ONCE IV Last administered on 08/09/16 12:25; Start 08/09/16 at 11:30; Stop 08/09/16 at 22:59 ; Status DC Piperacillin Sod/ Tazobactam Sod 1 each 1 each PRN DAILY PRN MC SEE COMMENTS; Start 08/09/16 at 12:00; Stop 08/14/16 at 07:40; Status DC Piperacillin Sod/ Tazobactam Sod/ Sodium Chloride (Zosyn/Iv Sodium Chloride 0.9 % 100ml) 100 ml @ 200 mls/hr Q6HRS IV Last administered on 08/14/16 05:58; Start 08/09/16 at 12:30; Stop 08/14/16 at 07:33; Status DC Vecuronium [place]kin[place]ones 5 mg 5 mg PRN Q4HRS PRN IV INCREASED RESPIRATORY,NOT RELI Last administered on 08/11/16 02:56; Start 08/09/16 at 13:30 Potassium Chloride 50 ml @ 100 mls/hr Q1H IV ; Start 08/10/16 at 09:30; Stop at 10:59; Status Cancel Potassium Chloride (KCl Premix 10meq) 100 ml @ 100 mls/hr Q1H IV Last administered on 08/10/16 16:28; Start 08/10/16 at 10:30; Stop 08/10/16 at 14:29 ; Status DC Potassium Chloride 60 meq 60 meq 1X ONCE PEG Last administered on 08/10/16 11 :16; Start 08/10/16 at 11:00; Stop 08/10/16 at 11:01; Status DC Sodium Bicarbonate/ Dextrose 1,150 ml @ 100 mls/hr [id number] IV Last administered on 08/10/16 11:14; Start 08/10/16 at 11:00; Stop 08/10/16 at 22:29 ; Status DC Enoxaparin Sodium 40 mg 40 mg Q24H SQ ; Start 08/10/16 at 13:00; Stop 08/10/16 at 13:00; Status DC Micafungin Sodium/ Dextrose (Mycamine) 100 ml @ 100 mls/hr Q24H IV Last administered on 08/13/16 16:26; Start 08/11/16 at 16:00; Stop 08/14/16 at 07:33 ; Status DC Furosemide (Lasix) 40 mg 1X ONCE IVP Last administered on 08/12/16 08:38; Start 08/12/16 at 08:00; Stop 08/12/16 at 08:06; Status DC Morphine Sulfate 1 mg 1 mg PRN Q10MIN PRN IV SEVERE PAIN; Start 08/13/16 at 07: 00; Stop 08/14/16 at 06:59; Status DC Lactated Ringer's (Iv Lactated Ringers) 1,000 ml @ 0 mls/hr Q0M IV ; Start at 07:00; Stop 08/13/16 at 18:59; Status DC Lidocaine HCl 2 ml PRN 1X PRN ID PRIOR TO IV START; Start 08/13/16 at 07:00; Stop 08/14/16 at 06:59; Status DC Hydromorphone HCl (Dilaudid) 0.5 mg PRN Q10MIN PRN IV SEV PAIN, Second choice; Start 08/13/16 at 07:00; Stop 08/14/16 at 06:59; Status DC Prochlorperazine Edisylate (Compazine) 5 mg PACU PRN PRN IV NAUSEA, MRX1; Start 08/13/16 at 07:00; Stop 08/14/16 at 06:59; Status DC Morphine Sulfate 1 mg 1 mg PRN Q10MIN PRN IV SEVERE PAIN; Start 08/13/16 at 07: 00; Stop 08/14/16 at 06:59; Status DC Lactated Ringer's (Iv Lactated Ringers) 1,000 ml @ 0 mls/hr Q0M IV ; Start at 07:00; Stop 08/13/16 at 18:59; Status DC Lidocaine HCl 2 ml PRN 1X PRN ID PRIOR TO IV START; Start 08/13/16 at 07:00; Stop 08/14/16 at 06:59; Status DC Hydromorphone HCl (Dilaudid) 0.5 mg PRN Q10MIN PRN IV SEV PAIN, Second choice; Start 08/13/16 at 07:00; Stop 08/14/16 at 06:59; Status DC Prochlorperazine Edisylate 5 mg 5 mg PACU PRN PRN IV NAUSEA, MRX1; Start at 07:00; Stop 08/14/16 at 06:59; Status DC Potassium Chloride (KCl Premix 20meq) 50 ml @ 50 mls/hr Q1H IV Last administered on 08/13/16 07:57; Start 08/13/16 at 07:00; Stop 08/13/16 at 08:59 ; Status DC Rocuronium Jenkinjones 50 mg 50 mg STK-MED ONCE .ROUTE ; Start 08/13/16 at 12:50; Stop 08/13/16 at 12:51; Status DC Propofol (Diprivan) 20 ml @ As Directed STK-MED ONCE IV ; Start 08/13/16 at 12: 53; Stop 08/13/16 at 12:54; Status DC Sevoflurane 30 ml 30 ml STK-MED ONCE IH ; Start 08/13/16 at 14:04; Stop at 14:05; Status DC Albumin Human 250 ml @ 100 mls/hr 1X ONCE IV Last administered on 08/13/16 23:38; Start 08/13/16 at 18:00; Stop 08/13/16 at 20:29; Status DC Albumin Human 500 ml @ 100 mls/hr 1X ONCE IV Last administered on 08/13/16 18:15; Start 08/13/16 at 18:00; Stop 08/13/16 at 22:59; Status DC Potassium Chloride 50 ml @ 50 mls/hr Q1H IV Last administered on 08/14/16 10: 46; Start 08/14/16 at 08:00; Stop 08/14/16 at 09:59; Status DC Nafcillin Sodium/ Sodium Chloride (Iv Sodium Chloride 0.9% 100ml) 100 ml @ 200 mls/hr Q4HRS IV Last administered on 08/19/16 11:36; Start 08/14/16 at 08:00 Enoxaparin Sodium (Lovenox 40mg Syringe) 40 mg Q24H SQ Last administered on 08/19 11:37; Start 08/14/16 at 12:00 Potassium Chloride (KCl Oral Soln) 40 meq 1X ONCE PEG Last administered on 07:54; Start 08/16/16 at 07:00; Stop 08/16/16 at 07:01; Status DC Potassium Chloride 40 meq 40 meq 1X ONCE PEG Last administered on 08/16/16 14 :01; Start 08/16/16 at 12:00; Stop 08/16/16 at 12:01; Status DC Magnesium Sulfate/ Dextrose (Magnesium Sulfate PREMIX 2GM) 50 ml @ 25 mls/hr 1X ONCE IV Last administered on 08/16/16 17:14; Start 08/16/16 at 16:30; Stop 08/16/16 at 18:29; Status DC Potassium Chloride (Klor-Con) 40 meq 1X ONCE PO ; Start 08/17/16 at 13:30; Stop 08/17/16 at 13:31; Status Cancel Potassium Chloride 40 meq 40 meq 1X ONCE PO Last administered on 08/17/16 15: 34; Start 08/17/16 at 13:30; Stop 08/17/16 at 14:27; Status DC Potassium Chloride 100 ml @ 100 mls/hr PRN Q1HR PRN IV HYPOKALEMIA PER ICU PROTOCOL; Start 08/17/16 at 13:30 Potassium Chloride (KCl Premix 20meq) 50 ml @ 25 mls/hr PRN Q2HR PRN IV HYPOKALEMIA PER ICU PROTOCOL; Start 08/17/16 at 13:30 Potassium Chloride 40 meq 40 meq PRN Q2HR PRN PO HYPOKALEMIA PER ICU PROTOCOL; Start 08/17/16 at 13:30 Potassium Chloride 100 ml @ 100 mls/hr PRN Q1HR PRN IV HYPOKALEMIA PER ICU PROTOCOL; Start 08/17/16 at 13:30 Potassium Chloride (KCl Premix 20meq) 50 ml @ 25 mls/hr PRN Q2HR PRN IV HYPOKALEMIA PER ICU PROTOCOL; Start 08/17/16 at 13:30 Potassium Chloride 40 meq 40 meq PRN Q2HR PRN PO HYPOKALEMIA PER ICU PROTOCOL; Start 08/17/16 at 13:30 Potassium Chloride 100 ml @ 100 mls/hr PRN Q1HR PRN IV HYPOKALEMIA PER ICU PROTOCOL; Start 08/17/16 at 13:30 Potassium Chloride 50 ml @ 25 mls/hr PRN Q2HR PRN IV HYPOKALEMIA PER ICU PROTOCOL; Start 08/17/16 at 14:00 Magnesium Sulfate/ Dextrose (Magnesium Sulfate PREMIX 4GM) 100 ml @ 50 mls/hr PRN DAILY PRN IV HYPOMAGNESIA PER ICU PROTOCOL; Start 08/18/16 at 09:00 Potassium Phos/ Sodium Phos 1 pkt 1 pkt BID PO ; Start 08/17/16 at 21:00; Stop 08/18/16 at 09:01; Status DC Sodium Phosphate/ Dextrose 263.3333 ml @ 62.5 mls/hr PRN 1X PRN IV HYPOPHOSP PER ICU PROTOCOL; Start 08/17/16 at 13:30 Potassium Chloride (KCl Oral Soln) 40 meq 1X ONCE PEG Last administered on 08/19 07:57; Start 08/19/16 at 07:45; Stop 08/19/16 at 07:46; Status DC Potassium Chloride (KCl Oral Soln) 40 meq 1X ONCE PEG Last administered on 08/19 11:36; Start 08/19/16 at 12:00; Stop 08/19/16 at 12:01 Alprazolam (Xanax) 0.5 mg 1X ONCE PO Last administered on 08/19/16 11:35; Start 08/19/16 at 11:15; Stop 08/19/16 at 11:16; Status DC Active Scripts Active Reported No Known Medications Prior To Admisstion (Info) Each 1 Each Vitals/I & O Vital Sign - Last 24 Hours 08/18/16 08/18/16 08/18/16 08/18/16 12:00 12:00 12:00 13:00 Pulse 113 105 Resp 28 33 B/P 127/82 140/88 Pulse Ox 95 94 95 O2 Delivery T-Tube T-Tube T-piece T-Tube O2 Flow Rate 10.0 08/18/16 08/18/16 08/18/16 08/18/16 14:00 15:00 15:48 15:52 Temp 99.8 99.8 Pulse 118 115 Resp 33 33 B/P 133/83 140/84 Pulse Ox 95 97 97 O2 Delivery T-Tube T-Tube Ventilator Mechanical Ventilator 08/18/16 08/18/16 08/18/16 08/18/16 16:00 17:00 17:38 18:00 Pulse 120 119 112 Resp 22 32 30 B/P Pulse Ox 99 98 100 99 O2 Delivery Ventilator Ventilator Ventilator Ventilator 08/18/16 08/18/16 08/18/16 08/18/16 18:42 19:00 19:57 20:00 Pulse 116 Resp 30 30 Pulse Ox 99 99 100 O2 Delivery Ventilator Ventilator Ventilator Mechanical Ventilator 08/18/16 08/18/16 08/18/16 08/18/16 20:00 21:00 21:45 22:00 Temp 100.4 100.4 Pulse 118 114 116 Resp 23 31 32 B/P 105/63 132/80 122/81 Pulse Ox 98 95 96 96 O2 Delivery Ventilator Ventilator Ventilator Ventilator 08/18/16 08/18/16 08/19/16 08/19/16 23:00 23:35 00:00 00:00 Temp 99.2 99.2 Pulse 107 115 Resp 28 28 B/P 105/74 102/60 Pulse Ox 97 98 98 O2 Delivery Ventilator Ventilator Ventilator Mechanical Ventilator 08/19/16 08/19/16 08/19/16 08/19/16 01:00 02:00 02:36 02:57 Pulse 113 114 Resp 26 25 26 B/P 86/56 101/56 Pulse Ox 99 99 98 99 O2 Delivery Ventilator Ventilator Ventilator Ventilator 08/19/16 08/19/16 08/19/16 08/19/16 03:00 03:30 04:00 04:00 Temp 99.8 99.8 Pulse 114 115 Resp 31 26 25 B/P 125/72 117/79 Pulse Ox 97 97 97 O2 Delivery Ventilator Ventilator Mechanical Ventilator Ventilator 08/19/16 08/19/16 08/19/16 08/19/16 05:00 05:14 06:00 07:40 Pulse 115 110 Resp 28 26 B/P 99/60 106/66 Pulse Ox 98 99 98 98 O2 Delivery Ventilator Ventilator Ventilator Ventilator 08/19/16 08/19/16 08/19/16 08/19/16 08:00 08:45 10:00 11:33 Pulse 115 Resp 16 B/P 112/68 Pulse Ox 97 O2 Delivery Mechanical Ventilator Ventilator Ventilator Ventilator 08/19/16 11:47 Pulse 112 Resp 28 B/P 119/77 Pulse Ox 97 O2 Delivery Ventilator Intake and Output 08/18/16 08/18/16 08/19/16 15:00 23:00 07:00 Intake Total 100 ml 565.8 ml 1139 ml Output Total 325 ml 360 ml 460 ml Balance -225 ml 205.8 ml 679 ml Nutrition Consultation Dietary Evaluation: Recommendations by RD: PPN/TPN Comments: Pt is s/p PEG placement 08/14 Rec. TF's with Fibersource HN, goal rate 45 ml/hr flushes 150ml q4h Expected Outcomes/Goals: tolerate the TF's via PEG at goal rate meet 75% estimated nutrition needs Interpretation of weight loss: >7.5% in 3 months Malnutrition Findings: Food and Nutrition Intake (Mod: <75% est energy req 7days Body Fat Depletion (Non Severe: Mild Depletion Reduced Boiler Erector Strength: N/A Reduced Boiler Erector Strength (Non-Sev: N/A Malnutrition related to morbid: No Weight Status: Overweight Fluid Accumulation (N/A): N/A CODY BLACK K III DO August 19, 2016 12:00
--- NOTE | 2016-08-19 12:02 | PDOC ---
Subjective: Subjective: Working w/ PT/OT - indicates abd pain. Objective: Objective: PEG functioning. Has rectal tube. Vital Signs: Vital Signs Date Time Temp Pulse Resp B/P Pulse Ox O2 Delivery O2 Flow Rate FiO2 08/19/16 11:47 112 28 119/77 97 Ventilator 08/19/16 04:00 99.8 99.8 08/18/16 12:00 10.0 Labs: Laboratory Tests Test 08/18/16 13:20 08/19/16 05:40 08/19/16 08:15 O2 Saturation 89% 97% Arterial Blood pH 7.45 7.43 Arterial Blood pCO2 at Patient Temp 29mmHg 31mmHg Arterial Blood pO2 at Patient Temp 54mmHg 92mmHg Arterial Blood HCO3 20mmol/L 20mmol/L Arterial Blood Base Excess -4mmol/L -3mmol/L FiO2 40 35% White Blood Count 16.1x10^3/uL Red Blood Count 2.61x10^6/uL Hemoglobin 7.9g/dL Hematocrit 22.6% Mean Corpuscular Volume 87fL Mean Corpuscular Hemoglobin 30pg Mean Corpuscular Hemoglobin Concent 35g/dL Red Cell Distribution Width 16.3% Platelet Count 381x10^3/uL Neutrophils (%) (Auto) 79% Lymphocytes (%) (Auto) 10% Monocytes (%) (Auto) 7% Eosinophils (%) (Auto) 4% Basophils (%) (Auto) 1% Neutrophils # (Auto) 12.6x10^3uL Lymphocytes # (Auto) 1.6x10^3/uL Monocytes # (Auto) 1.1x10^3/uL Eosinophils # (Auto) 0.6x10^3/uL Basophils # (Auto) 0.1x10^3/uL Sodium Level 139mmol/L Potassium Level 3.2mmol/L Chloride Level 108mmol/L Carbon Dioxide Level 22mmol/L Anion Gap 9 Blood Urea Nitrogen 17mg/dL Creatinine 0.8mg/dL Estimated GFR (Cockcroft-Gault) 78.7 Glucose Level 119mg/dL Calcium Level 7.7mg/dL PE: GEN: NAD, sitting up in bed, PT holding trach in place LUNGS: trach HEART: RRR ABD: PEG in place, seems diffusely uncomfortable, exam a little difficult NEURO/PSYCH: alert, nods/shakes head OTHER: rectal tube w/ liquid brown stool A/P: S/p PEG -tolerating tube feeds Anemia -on Pepcid Hep C Diarrhea -C Diff neg 08/10, now has rectal tube Abd pain -- Check KUB, will review w/ Dr. Peraza. ORQUIDEA ELIZABETH August 19, 2016 12:02
[2016-08-19] MEDS: IV 1/2 NORMAL SALINE 1,000 ML IV SCH (15:27)
[2016-08-19] MEDS: ALPRAZolam 0.5 MG TABLET PEG SCH ×2 (15:27→20:33)
--- NOTE | 2016-08-19 16:46 | RAD ---
Indication abdominal pain. KUB was obtained. The abdominal gas pattern is unremarkable. There is an apparent gastrostomy tube. An acute finding is not seen. IMPRESSION: No acute finding
[2016-08-20] VITALS (29 sets, daily range): BP systolic 98–129; BP diastolic 54–85
[2016-08-20] MEDS: NAFCILLIN 2 GM in IV NORMAL SALINE 100ML 100 ML IV SCH ×6 (00:02→20:04)
[2016-08-20 06:56] LABS: CALCIUM 7.8 mg/dL (8.5-10.1); CREATININE 0.8 mg/dL (0.6-1.0); GFR 78.7; MAGNESIUM 1.5 mg/dL (1.8-2.4); PHOSPHORUS 3.8 mg/dL (2.6-4.7); POTASSIUM 3.8 mmol/L (3.5-5.1)
[2016-08-20] MEDS: IPRATRPIUM/ALBUTEROL 0.5/2.5MG 3 ML NEBU. NEB SCH ×4 (07:16→19:37)
[2016-08-20] MEDS: BUDESONIDE 0.5 MG/2 ML NEBU. NEB SCH ×2 (07:16→19:40)
[2016-08-20 07:19] LABS: BASO # 0.1 x10^3/uL (0.0-0.2); BASO % 1 % (0-3); EOS % 5 % (0-3); HEMATOCRIT 21.1 % (36.0-47.0); LYMPH # 1.7 x10^3/uL (1.0-4.8); LYMPH % 13 % (24-48); MEAN CORPUSCULAR HEMOGLOBIN 30 pg (25-35); MEAN CORPUSCULAR HGB CONC 33 g/dL (31-37); MEAN CORPUSCULAR VOLUME 89 fL (79-100); MONO % 6 % (0-9); NEUT % 76 % (31-73); PLATELET COUNT 386 x10^3/uL (140-400); RED BLOOD COUNT 2.37 x10^6/uL (3.50-5.40); RED CELL DISTRIBUTION WIDTH 16.9 % (11.5-14.5); WHITE BLOOD COUNT 13.7 x10^3/uL (4.0-11.0)
[2016-08-20 08:40] LABS: HCO3 ABG 21 mmol/L (21-28); PCO2 ABG 31 mmHg (35-46); PH ABG 7.44 (7.35-7.45); PO2 ABG 84 mmHg (75-108); SAT O2 ABG 96 % (92-99)
[2016-08-20 10:20] LABS: FIO2 ABG 35
--- NOTE | 2016-08-20 10:51 | PDOC ---
G I PROGRESS NOTE Subjective Seems awake and alert, but no attempt to communicate. Objective Tube feedings going well per staff. Physical Exam Lungs clear anteriorly. RRR Abdomen soft, not distended. PEG OK. Review of Relevant I have reviewed the following items shanta (where applicable) has been applied. Labs Laboratory Tests Test 08/18/16 13:20 08/19/16 05:40 08/19/16 08:15 08/20/16 06:08 O2 Saturation 89% (92-99) 97% (92-99) Arterial Blood pH 7.45 (7.35-7.45) 7.43 (7.35-7.45) Arterial Blood pCO2 at Patient Temp 29mmHg (35-46) 31mmHg (35-46) Arterial Blood pO2 at Patient Temp 54mmHg (75-108) 92mmHg (75-108) Arterial Blood HCO3 20mmol/L (21-28) 20mmol/L (21-28) Arterial Blood Base Excess -4mmol/L (-3-3) -3mmol/L (-3-3) FiO2 40 35% White Blood Count 16.1x10^3/uL (4.0-11.0) 13.7x10^3/uL (4.0-11.0) Red Blood Count 2.61x10^6/uL (3.50-5.40) 2.37x10^6/uL (3.50-5.40) Hemoglobin 7.9g/dL (12.0-15.5) 7.0g/dL (12.0-15.5) Hematocrit 22.6% (36.0-47.0) 21.1% (36.0-47.0) Mean Corpuscular Volume 87fL (79-100) 89fL (79-100) Mean Corpuscular Hemoglobin 30pg (25-35) 30pg (25-35) Mean Corpuscular Hemoglobin Concent 35g/dL (31-37) 33g/dL (31-37) Red Cell Distribution Width 16.3% (11.5-14.5) 16.9% (11.5-14.5) Platelet Count 381x10^3/uL (140-400) 386x10^3/uL (140-400) Neutrophils (%) (Auto) 79% (31-73) 76% (31-73) Lymphocytes (%) (Auto) 10% (24-48) 13% (24-48) Monocytes (%) (Auto) 7% (0-9) 6% (0-9) Eosinophils (%) (Auto) 4% (0-3) 5% (0-3) Basophils (%) (Auto) 1% (0-3) 1% (0-3) Neutrophils # (Auto) 12.6x10^3uL (1.8-7.7) 10.3x10^3uL (1.8-7.7) Lymphocytes # (Auto) 1.6x10^3/uL (1.0-4.8) 1.7x10^3/uL (1.0-4.8) Monocytes # (Auto) 1.1x10^3/uL (0.0-1.1) 0.8x10^3/uL (0.0-1.1) Eosinophils # (Auto) 0.6x10^3/uL (0.0-0.7) 0.7x10^3/uL (0.0-0.7) Basophils # (Auto) 0.1x10^3/uL (0.0-0.2) 0.1x10^3/uL (0.0-0.2) Sodium Level 139mmol/L (136-145) 137mmol/L (136-145) Potassium Level 3.2mmol/L (3.5-5.1) 3.8mmol/L (3.5-5.1) Chloride Level 108mmol/L (98-107) 107mmol/L (98-107) Carbon Dioxide Level 22mmol/L (21-32) 24mmol/L (21-32) Anion Gap 9 (6-14) 6 (6-14) Blood Urea Nitrogen 17mg/dL (7-20) 18mg/dL (7-20) Creatinine 0.8mg/dL (0.6-1.0) 0.8mg/dL (0.6-1.0) Estimated GFR (Cockcroft-Gault) 78.7 78.7 Glucose Level 119mg/dL (70-99) 111mg/dL (70-99) Calcium Level 7.7mg/dL (8.5-10.1) 7.8mg/dL (8.5-10.1) Phosphorus Level 3.8mg/dL (2.6-4.7) Magnesium Level 1.5mg/dL (1.8-2.4) Test 08/20/16 08:00 O2 Saturation 96% (92-99) Arterial Blood pH 7.44 (7.35-7.45) Arterial Blood pCO2 at Patient Temp 31mmHg (35-46) Arterial Blood pO2 at Patient Temp 84mmHg (75-108) Arterial Blood HCO3 21mmol/L (21-28) Arterial Blood Base Excess -3mmol/L (-3-3) FiO2 35 Laboratory Tests Test 08/20/16 06:08 08/20/16 08:00 White Blood Count 13.7x10^3/uL (4.0-11.0) Red Blood Count 2.37x10^6/uL (3.50-5.40) Hemoglobin 7.0g/dL (12.0-15.5) Hematocrit 21.1% (36.0-47.0) Mean Corpuscular Volume 89fL (79-100) Mean Corpuscular Hemoglobin 30pg (25-35) Mean Corpuscular Hemoglobin Concent 33g/dL (31-37) Red Cell Distribution Width 16.9% (11.5-14.5) Platelet Count 386x10^3/uL (140-400) Neutrophils (%) (Auto) 76% (31-73) Lymphocytes (%) (Auto) 13% (24-48) Monocytes (%) (Auto) 6% (0-9) Eosinophils (%) (Auto) 5% (0-3) Basophils (%) (Auto) 1% (0-3) Neutrophils # (Auto) 10.3x10^3uL (1.8-7.7) Lymphocytes # (Auto) 1.7x10^3/uL (1.0-4.8) Monocytes # (Auto) 0.8x10^3/uL (0.0-1.1) Eosinophils # (Auto) 0.7x10^3/uL (0.0-0.7) Basophils # (Auto) 0.1x10^3/uL (0.0-0.2) Sodium Level 137mmol/L (136-145) Potassium Level 3.8mmol/L (3.5-5.1) Chloride Level 107mmol/L (98-107) Carbon Dioxide Level 24mmol/L (21-32) Anion Gap 6 (6-14) Blood Urea Nitrogen 18mg/dL (7-20) Creatinine 0.8mg/dL (0.6-1.0) Estimated GFR (Cockcroft-Gault) 78.7 Glucose Level 111mg/dL (70-99) Calcium Level 7.8mg/dL (8.5-10.1) Phosphorus Level 3.8mg/dL (2.6-4.7) Magnesium Level 1.5mg/dL (1.8-2.4) O2 Saturation 96% (92-99) Arterial Blood pH 7.44 (7.35-7.45) Arterial Blood pCO2 at Patient Temp 31mmHg (35-46) Arterial Blood pO2 at Patient Temp 84mmHg (75-108) Arterial Blood HCO3 21mmol/L (21-28) Arterial Blood Base Excess -3mmol/L (-3-3) FiO2 35 Microbiology 08/09/16 Blood Culture - Final, Complete NO GROWTH AFTER 5 DAYS 08/08/16 AFB Specimen Processing Tissue - Final, Resulted 08/08/16 Acid Fast Bacilli Culture, Resulted Pending 08/08/16 Gram Stain - Final, Resulted 08/08/16 Fungal Culture - Preliminary, Resulted 08/08/16 Fungal Culture Result 1 - Preliminary, Resulted Medications Current Medications Amino Acids/ Glycerin/ Electrolytes (Procalamine) 1,000 ml @ 100 mls/hr Q10H IV Last administered on 08/05/16 02:40; Start 08/02/16 at 03:00; Stop at 08:50; Status DC Morphine Sulfate 2 mg 2 mg PRN Q2HR PRN IV SEVERE PAIN Last administered on 11:59; Start 08/02/16 at 02:30; Stop 08/02/16 at 13:28; Status DC Daptomycin 220 mg/ Sodium Chloride 50 ml @ 100 mls/hr Q24H IV ; Start 08/02/16 at 09:15; Stop 08/02/16 at 15:58; Status DC Cefepime HCl 1 gm/ Sodium Chloride 50 ml @ 100 mls/hr Q12HR IV Last administered on 08/04/16 08:10; Start 08/02/16 at 10:00; Stop 08/04/16 at 10:33 ; Status DC Daptomycin/Sodium Chloride (Cubicin/Iv Sodium Chloride 0.9% 50ml) 50 ml @ 100 mls/hr ONCE ONCE IV ; Start 08/02/16 at 10:00; Stop 08/02/16 at 10:29; Status Cancel Potassium Chloride 40 meq 40 meq 1X ONCE PO Last administered on 08/02/16 10: 17; Start 08/02/16 at 09:45; Stop 08/02/16 at 09:46; Status DC Daptomycin/Sodium Chloride (Cubicin/Iv Sodium Chloride 0.9% 50ml) 50 ml @ 100 mls/hr Q24H IV Last administered on 08/03/16 09:43; Start 08/02/16 at 10:15; Stop 08/03/16 at 10:29; Status DC Potassium Chloride (Klor-Con) 40 meq 1X ONCE PO Last administered on 12:57; Start 08/02/16 at 12:30; Stop 08/02/16 at 12:36; Status DC Morphine Sulfate 5 mg PRN Q2HRS PRN IV MODERATE TO SEVERE PAIN Last administered on 08/04/16 08:16; Start 08/02/16 at 13:30 Morphine Sulfate 8 mg PRN Q2HRS PRN IV MODERATE TO SEVERE PAIN Last administered on 08/04/16 14:58; Start 08/02/16 at 13:30 Acetaminophen 650 mg 650 mg PRN Q6HRS PRN PO TEMP GREATER THAN 100.4 Last administered on 08/10/16 00:18; Start 08/02/16 at 14:45 Lactated Ringer's 1,000 ml @ 50 mls/hr Q20H IV ; Start 08/05/16 at 07:00; Stop 08/05/16 at 18:13; Status DC Daptomycin/Sodium Chloride (Cubicin/Iv Sodium Chloride 0.9% 50ml) 50 ml @ 100 mls/hr Q24H IV ; Start 08/03/16 at 11:00; Status Cancel Potassium Chloride (Klor-Con) 40 meq 1X ONCE PO Last administered on 17:41; Start 08/02/16 at 17:15; Stop 08/02/16 at 17:18; Status DC Potassium Chloride (Klor-Con) 40 meq BIDWMEALS PO ; Start 08/03/16 at 08:00; Stop 08/03/16 at 11:08; Status DC Morphine Sulfate 5 mg 1X ONCE IV Last administered on 08/02/16 21:45; Start 08/02/16 at 21:30; Stop 08/02/16 at 21:33; Status DC Lorazepam (Ativan) 1 mg 1X ONCE IV Last administered on 08/02/16 21:30; Start 08/02/16 at 21:30; Stop 08/02/16 at 21:33; Status DC Acetaminophen (Acetaminophen Supp) 650 mg PRN Q6HRS PRN [place] MILD PAIN / TEMP Last administered on 08/13/16 03:13; Start 08/03/16 at 01:15 Albuterol/ Ipratropium (Duoneb) 3 ml RTQID NEB Last administered on 08/20/16 07 :16; Start 08/03/16 at 08:00 Budesonide (Pulmicort) 0.5 mg RTBID NEB Last administered on 08/20/16 07:16; Start 08/03/16 at 08:00 Pantoprazole Sodium 40 mg 40 mg 1X ONCE IVP Last administered on 08/03/16 10: 06; Start 08/03/16 at 08:00; Stop 08/03/16 at 08:01; Status DC Daptomycin/Sodium Chloride (Cubicin/Iv Sodium Chloride 0.9% 50ml) 50 ml @ 100 mls/hr Q24H IV Last administered on 08/04/16 10:03; Start 08/04/16 at 10:00; Stop 08/04/16 at 10:33; Status DC Lorazepam (Ativan) 0.5 mg PRN Q6HRS PRN IV ANXIETY / AGITATION Last administered on 08/04/16 09:12; Start 08/03/16 at 11:15; Stop 08/07/16 at 11:02 ; Status DC Lorazepam (Ativan) 0.5 mg 1X ONCE IV Last administered on 08/04/16 10:00; Start 08/04/16 at 10:00; Stop 08/04/16 at 10:01; Status DC Morphine Sulfate 5 mg 1X ONCE IV Last administered on 08/04/16 10:00; Start 08/04/16 at 10:00; Stop 08/04/16 at 10:01; Status DC Lorazepam 0.5 mg 0.5 mg PRN Q4HRS PRN IV ANXIETY / AGITATION Last administered on 08/19/16 04:42; Start 08/04/16 at 10:00 Nafcillin Sodium 2 gm/Sodium Chloride 100 ml @ 200 mls/hr Q4HRS IV Last administered on 08/09/16 10:10; Start 08/04/16 at 12:00; Stop 08/09/16 at 11:49 ; Status DC Propofol (Diprivan) 100 ml @ As Directed STK-MED ONCE IV ; Start 08/04/16 at 16 :10; Stop 08/04/16 at 16:11; Status DC Succinylcholine Chloride (Anectine) 200 mg STK-MED ONCE .ROUTE ; Start 08/04/16 at 16:14; Stop 08/04/16 at 16:15; Status DC Succinylcholine Chloride 200 mg 200 mg 1X ONCE IV ; Start 08/04/16 at 16:45; Stop 08/04/16 at 16:46; Status DC Propofol (Diprivan) 100 ml @ 0 mls/hr CONT PRN IV SEE I/O RECORD Last administered on 08/17/16 10:18; Start 08/04/16 at 16:45 Lorazepam (Ativan) 0.5 mg 1X ONCE IV Last administered on 08/04/16 16:45; Start 08/04/16 at 16:45; Stop 08/04/16 at 16:46; Status DC Morphine Sulfate 5 mg 5 mg 1X ONCE IV Last administered on 08/04/16 16:44; Start 08/04/16 at 16:45; Stop 08/04/16 at 16:46; Status DC Fentanyl Citrate (Fentanyl 600 Mcg/30 ml TOLL LINE MECHANIC) 30 ml @ 0 mls/hr CONT PRN IV PROTOCOL Last administered on 08/20/16 01:41; Start 08/04/16 at 16:45 Chlorhexidine Gluconate (Peridex) 15 ml BID MM Last administered on 08/17/16 10:18; Start 08/04/16 at 21:00; Stop 08/17/16 at 19:36; Status DC Famotidine 20 mg 20 mg BID IVP Last administered on 08/19/16 20:33; Start 08/04 at 17:00 Sodium Chloride (Iv Sodium Chloride 0.9% 1000ml Bag) 1,000 ml @ 100 mls/hr Q10H IV Last administered on 08/07/16 04:35; Start 08/05/16 at 09:00; Stop at 08:59; Status DC Succinylcholine Chloride (Anectine) 200 mg STK-MED ONCE .ROUTE ; Start 08/04/16 at 16:00; Stop 08/05/16 at 12:32; Status DC Lorazepam (Ativan) 2 mg 1X ONCE IV Last administered on 08/05/16 20:43; Start 08/05/16 at 21:00; Stop 08/05/16 at 21:01; Status DC Furosemide (Lasix) 40 mg 1X PRN PRN IV blood transfusion Last administered on 14:17; Start 08/06/16 at 08:00; Stop 08/07/16 at 07:59; Status DC Sodium Bicarbonate 50 meq 1X ONCE IV Last administered on 08/06/16 14:06; Start 08/06/16 at 12:00; Stop 08/06/16 at 12:01; Status DC Calcium Chloride 1,000 mg STK-MED ONCE IV ; Start 08/04/16 at 12:00; Stop at 15:13; Status DC Epinephrine HCl (Epinephrine Syringe) 2 mg STK-MED ONCE .ROUTE ; Start 08/04/16 at 12:00; Stop 08/06/16 at 15:13; Status DC Sodium Bicarbonate 100 meq 100 meq STK-MED ONCE .ROUTE ; Start 08/04/16 at 12:00 ; Stop 08/06/16 at 15:13; Status DC Amino Acids/ Glycerin/ Electrolytes (Procalamine) 1,000 ml @ 100 mls/hr Q10H IV Last administered on 08/08/16 12:33; Start 08/07/16 at 10:00; Stop at 09:42; Status DC Enoxaparin Sodium (Lovenox 40mg Syringe) 40 mg Q24H SQ Last administered on 13:10; Start 08/07/16 at 13:00; Stop 08/10/16 at 10:43; Status DC Vecuronium [place] (Norcuron Bolus) 10 mg STK-MED ONCE IV ; Start 08/07/16 at 13 :56; Stop 08/07/16 at 13:57; Status DC Vecuronium [place] (Norcuron Bolus) 6 mg 1X ONCE IV Last administered on 14:06; Start 08/07/16 at 14:00; Stop 08/07/16 at 14:05; Status DC Sodium Bicarbonate 50 meq 1X ONCE IV Last administered on 08/08/16 11:46; Start 08/08/16 at 11:45; Stop 08/08/16 at 11:46; Status DC Nystatin 1 james 1 james BID TP Last administered on 08/19/16 20:33; Start at 21:00 Linezolid 300 ml @ 300 mls/hr Q12HR IV Last administered on 08/14/16 20:51; Start 08/09/16 at 09:00; Stop 08/15/16 at 07:21; Status DC Sodium Chloride 1,000 ml @ 20 mls/hr Q24H IV Last administered on 08/19/16 15: 27; Start 08/09/16 at 09:45 Sodium Bicarbonate/ Dextrose 1,150 ml @ 100 mls/hr 1X ONCE IV Last administered on 08/09/16 12:25; Start 08/09/16 at 11:30; Stop 08/09/16 at 22:59 ; Status DC Piperacillin Sod/ Tazobactam Sod 1 each 1 each PRN DAILY PRN MC SEE COMMENTS; Start 08/09/16 at 12:00; Stop 08/14/16 at 07:40; Status DC Piperacillin Sod/ Tazobactam Sod/ Sodium Chloride (Zosyn/Iv Sodium Chloride 0.9 % 100ml) 100 ml @ 200 mls/hr Q6HRS IV Last administered on 08/14/16 05:58; Start 08/09/16 at 12:30; Stop 08/14/16 at 07:33; Status DC Vecuronium [place] 5 mg 5 mg PRN Q4HRS PRN IV INCREASED RESPIRATORY,NOT RELI Last administered on 08/11/16 02:56; Start 08/09/16 at 13:30 Potassium Chloride 50 ml @ 100 mls/hr Q1H IV ; Start 08/10/16 at 09:30; Stop at 10:59; Status Cancel Potassium Chloride (KCl Premix 10meq) 100 ml @ 100 mls/hr Q1H IV Last administered on 08/10/16 16:28; Start 08/10/16 at 10:30; Stop 08/10/16 at 14:29 ; Status DC Potassium Chloride 60 meq 60 meq 1X ONCE PEG Last administered on 08/10/16 11 :16; Start 08/10/16 at 11:00; Stop 08/10/16 at 11:01; Status DC Sodium Bicarbonate/ Dextrose 1,150 ml @ 100 mls/hr [id number] IV Last administered on 08/10/16 11:14; Start 08/10/16 at 11:00; Stop 08/10/16 at 22:29 ; Status DC Enoxaparin Sodium 40 mg 40 mg Q24H SQ ; Start 08/10/16 at 13:00; Stop 08/10/16 at 13:00; Status DC Micafungin Sodium/ Dextrose (Mycamine) 100 ml @ 100 mls/hr Q24H IV Last administered on 08/13/16 16:26; Start 08/11/16 at 16:00; Stop 08/14/16 at 07:33 ; Status DC Furosemide (Lasix) 40 mg 1X ONCE IVP Last administered on 08/12/16 08:38; Start 08/12/16 at 08:00; Stop 08/12/16 at 08:06; Status DC Morphine Sulfate 1 mg 1 mg PRN Q10MIN PRN IV SEVERE PAIN; Start 08/13/16 at 07: 00; Stop 08/14/16 at 06:59; Status DC Lactated Ringer's (Iv Lactated Ringers) 1,000 ml @ 0 mls/hr Q0M IV ; Start at 07:00; Stop 08/13/16 at 18:59; Status DC Lidocaine HCl 2 ml PRN 1X PRN ID PRIOR TO IV START; Start 08/13/16 at 07:00; Stop 08/14/16 at 06:59; Status DC Hydromorphone HCl (Dilaudid) 0.5 mg PRN Q10MIN PRN IV SEV PAIN, Second choice; Start 08/13/16 at 07:00; Stop 08/14/16 at 06:59; Status DC Prochlorperazine Edisylate (Compazine) 5 mg PACU PRN PRN IV NAUSEA, MRX1; Start 08/13/16 at 07:00; Stop 08/14/16 at 06:59; Status DC Morphine Sulfate 1 mg 1 mg PRN Q10MIN PRN IV SEVERE PAIN; Start 08/13/16 at 07: 00; Stop 08/14/16 at 06:59; Status DC Lactated Ringer's (Iv Lactated Ringers) 1,000 ml @ 0 mls/hr Q0M IV ; Start at 07:00; Stop 08/13/16 at 18:59; Status DC Lidocaine HCl 2 ml PRN 1X PRN ID PRIOR TO IV START; Start 08/13/16 at 07:00; Stop 08/14/16 at 06:59; Status DC Hydromorphone HCl (Dilaudid) 0.5 mg PRN Q10MIN PRN IV SEV PAIN, Second choice; Start 08/13/16 at 07:00; Stop 08/14/16 at 06:59; Status DC Prochlorperazine Edisylate 5 mg 5 mg PACU PRN PRN IV NAUSEA, MRX1; Start at 07:00; Stop 08/14/16 at 06:59; Status DC Potassium Chloride (KCl Premix 20meq) 50 ml @ 50 mls/hr Q1H IV Last administered on 08/13/16t 07:57; Start 08/13/16 at 07:00; Stop 08/13/16 at 08:59 ; Status DC Rocuronium [place] 50 mg 50 mg STK-MED ONCE .ROUTE ; Start 08/13/16 at 12:50; Stop 08/13/16 at 12:51; Status DC Propofol (Diprivan) 20 ml @ As Directed STK-MED ONCE IV ; Start 08/13/16 at 12: 53; Stop 08/13/16 at 12:54; Status DC Sevoflurane 30 ml 30 ml STK-MED ONCE IH ; Start 08/13/16 at 14:04; Stop at 14:05; Status DC Albumin Human 250 ml @ 100 mls/hr 1X ONCE IV Last administered on 08/13/16 23:38; Start 08/13/16 at 18:00; Stop 08/13/16 at 20:29; Status DC Albumin Human 500 ml @ 100 mls/hr 1X ONCE IV Last administered on 08/13/16 18:15; Start 08/13/16 at 18:00; Stop 08/13/16 at 22:59; Status DC Potassium Chloride 50 ml @ 50 mls/hr Q1H IV Last administered on 08/14/16 10: 46; Start 08/14/16 at 08:00; Stop 08/14/16 at 09:59; Status DC Nafcillin Sodium/ Sodium Chloride (Iv Sodium Chloride 0.9% 100ml) 100 ml @ 200 mls/hr Q4HRS IV Last administered on 08/20/16 05:25; Start 08/14/16 at 08:00 Enoxaparin Sodium (Lovenox 40mg Syringe) 40 mg Q24H SQ Last administered on 08/19 11:37; Start 08/14/16 at 12:00 Potassium Chloride (KCl Oral Soln) 40 meq 1X ONCE PEG Last administered on 07:54; Start 08/16/16 at 07:00; Stop 08/16/16 at 07:01; Status DC Potassium Chloride 40 meq 40 meq 1X ONCE PEG Last administered on 08/16/16 14 :01; Start 08/16/16 at 12:00; Stop 08/16/16 at 12:01; Status DC Magnesium Sulfate/ Dextrose (Magnesium Sulfate PREMIX 2GM) 50 ml @ 25 mls/hr 1X ONCE IV Last administered on 08/16/16 17:14; Start 08/16/16 at 16:30; Stop 08/16/16 at 18:29; Status DC Potassium Chloride (Klor-Con) 40 meq 1X ONCE PO ; Start 08/17/16 at 13:30; Stop 08/17/16 at 13:31; Status Cancel Potassium Chloride 40 meq 40 meq 1X ONCE PO Last administered on 08/17/16 15: 34; Start 08/17/16 at 13:30; Stop 08/17/16 at 14:27; Status DC Potassium Chloride 100 ml @ 100 mls/hr PRN Q1HR PRN IV HYPOKALEMIA PER ICU PROTOCOL; Start 08/17/16 at 13:30 Potassium Chloride (KCl Premix 20meq) 50 ml @ 25 mls/hr PRN Q2HR PRN IV HYPOKALEMIA PER ICU PROTOCOL; Start 08/17/16 at 13:30 Potassium Chloride 40 meq 40 meq PRN Q2HR PRN PO HYPOKALEMIA PER ICU PROTOCOL; Start 08/17/16 at 13:30 Potassium Chloride 100 ml @ 100 mls/hr PRN Q1HR PRN IV HYPOKALEMIA PER ICU PROTOCOL; Start 08/17/16 at 13:30 Potassium Chloride (KCl Premix 20meq) 50 ml @ 25 mls/hr PRN Q2HR PRN IV HYPOKALEMIA PER ICU PROTOCOL; Start 08/17/16 at 13:30 Potassium Chloride 40 meq 40 meq PRN Q2HR PRN PO HYPOKALEMIA PER ICU PROTOCOL; Start 08/17/16 at 13:30 Potassium Chloride 100 ml @ 100 mls/hr PRN Q1HR PRN IV HYPOKALEMIA PER ICU PROTOCOL; Start 08/17/16 at 13:30 Potassium Chloride 50 ml @ 25 mls/hr PRN Q2HR PRN IV HYPOKALEMIA PER ICU PROTOCOL; Start 08/17/16 at 14:00 Magnesium Sulfate/ Dextrose (Magnesium Sulfate PREMIX 4GM) 100 ml @ 50 mls/hr PRN DAILY PRN IV HYPOMAGNESIA PER ICU PROTOCOL; Start 08/18/16 at 09:00 Potassium Phos/ Sodium Phos 1 pkt 1 pkt BID PO ; Start 08/17/16 at 21:00; Stop 08/18/16 at 09:01; Status DC Sodium Phosphate/ Dextrose 263.3333 ml @ 62.5 mls/hr PRN 1X PRN IV HYPOPHOSP PER ICU PROTOCOL; Start 08/17/16 at 13:30 Potassium Chloride (KCl Oral Soln) 40 meq 1X ONCE PEG Last administered on 08/19 07:57; Start 08/19/16 at 07:45; Stop 08/19/16 at 07:46; Status DC Potassium Chloride (KCl Oral Soln) 40 meq 1X ONCE PEG Last administered on 5/1 /17at 11:36; Start 08/19/16 at 12:00; Stop 08/19/16 at 12:01; Status DC Alprazolam (Xanax) 0.5 mg 1X ONCE PO Last administered on 08/19/16 11:35; Start 08/19/16 at 11:15; Stop 08/19/16 at 11:16; Status DC Alprazolam (Xanax) 0.5 mg TID PEG Last administered on 08/19/16 20:33; Start at 15:00 Active Scripts Active Reported No Known Medications Prior To Admisstion (Info) Each 1 Each Vitals/I & O Vital Sign - Last 24 Hours 08/19/16 08/19/16 08/19/16 08/19/16 11:33 11:47 12:00 12:31 Temp 99.3 99.3 Pulse 112 112 Resp 28 29 B/P 119/77 110/71 Pulse Ox 97 97 98 O2 Delivery Ventilator Ventilator Ventilator Mechanical Ventilator 08/19/16 08/19/16 08/19/16 08/19/16 13:00 13:30 13:35 14:00 Pulse 106 112 Resp 32 31 B/P 121/72 111/73 Pulse Ox 100 97 99 O2 Delivery Ventilator Mechanical Ventilator Ventilator Ventilator 08/19/16 08/19/16 08/19/16 08/19/16 15:00 15:29 15:31 16:00 Pulse 112 Resp 29 28 30 B/P 114/72 Pulse Ox 99 99 99 99 O2 Delivery Ventilator Ventilator Ventilator Ventilator 08/19/16 08/19/16 08/19/16 08/19/16 16:00 16:00 16:00 17:00 Temp 98.3 98.3 Pulse 94 110 Resp 26 27 B/P 119/81 112/68 Pulse Ox 98 100 O2 Delivery Mechanical Ventilator Mechanical Ventilator Ventilator Ventilator 08/19/16 08/19/16 08/19/16 08/19/16 17:10 18:00 19:00 19:40 Pulse 110 110 Resp 30 29 B/P 111/59 113/67 Pulse Ox 99 99 99 99 O2 Delivery Ventilator Ventilator Ventilator Ventilator 08/19/16 08/19/16 08/19/16 08/19/16 20:00 20:00 21:00 22:00 Temp 98.6 98.6 Pulse 110 116 112 Resp 27 28 27 B/P 112/72 104/62 102/61 Pulse Ox 100 99 99 O2 Delivery Mechanical Ventilator Ventilator Ventilator Ventilator 08/19/16 08/19/16 08/20/16 08/20/16 22:58 23:00 00:00 00:00 Temp 98.4 98.4 Pulse 114 111 Resp 26 25 B/P 108/63 114/78 Pulse Ox 99 99 100 O2 Delivery Ventilator Ventilator Ventilator Mechanical Ventilator 08/20/16 08/20/16 08/20/16 08/20/16 01:00 01:00 01:41 02:00 Pulse 112 114 Resp 23 29 B/P 107/69 102/63 Pulse Ox 99 99 99 O2 Delivery Ventilator Ventilator Ventilator Ventilator 08/20/16 08/20/16 08/20/16 08/20/16 03:00 04:00 04:00 05:00 Temp 98.6 98.6 Pulse 110 106 104 Resp 27 27 28 B/P 103/68 105/63 98/54 Pulse Ox 99 100 99 O2 Delivery Ventilator Mechanical Ventilator Ventilator Ventilator 08/20/16 08/20/16 08/20/16 08/20/16 05:05 06:00 07:00 07:16 Pulse 104 106 Resp 27 26 B/P 106/68 106/68 Pulse Ox 99 99 100 99 O2 Delivery Ventilator Ventilator Ventilator Ventilator 08/20/16 08/20/16 08/20/16 08/20/16 08:00 08:00 09:00 09:03 Temp 98.4 98.4 Pulse 112 110 Resp 24 27 B/P 106/72 100/61 Pulse Ox 100 99 99 O2 Delivery Ventilator Trach Collar Tracheal Collar Ventilator Intake and Output 08/19/16 08/19/16 08/20/16 15:00 23:00 07:00 Intake Total 150 ml 1717 ml 1501.7 ml Output Total 50 ml 1225 ml 525 ml Balance 100 ml 492 ml 976.7 ml Assessment Tolerating tube feedings. Plan of Care: Continue current Tx, Mgmt RICHAR LITTLE MD August 20, 2016 10:51
--- NOTE | 2016-08-20 11:16 | PDOC ---
PULMONARY PROGRESS NOTES Subjective did tolerated T-piece yesterday Vitals Vital Signs Date Time Temp Pulse Resp B/P Pulse Ox O2 Delivery O2 Flow Rate FiO2 08/20/16 11:08 99 Ventilator 08/20/16 09:00 110 27 100/61 08/20/16 08:00 98.4 98.4 General: Alert, No acute distress Lungs: Other (decrease bs) Cardiovascular: S1, S2, Other Abdomen: Soft, Non-tender Neuro Exam: Alert Extremities: Other (edema) Skin: Warm Labs Laboratory Tests Test 08/18/16 13:20 08/19/16 05:40 08/19/16 08:15 08/20/16 06:08 O2 Saturation 89% (92-99) 97% (92-99) Arterial Blood pH 7.45 (7.35-7.45) 7.43 (7.35-7.45) Arterial Blood pCO2 at Patient Temp 29mmHg (35-46) 31mmHg (35-46) Arterial Blood pO2 at Patient Temp 54mmHg (75-108) 92mmHg (75-108) Arterial Blood HCO3 20mmol/L (21-28) 20mmol/L (21-28) Arterial Blood Base Excess -4mmol/L (-3-3) -3mmol/L (-3-3) FiO2 40 35% White Blood Count 16.1x10^3/uL (4.0-11.0) 13.7x10^3/uL (4.0-11.0) Red Blood Count 2.61x10^6/uL (3.50-5.40) 2.37x10^6/uL (3.50-5.40) Hemoglobin 7.9g/dL (12.0-15.5) 7.0g/dL (12.0-15.5) Hematocrit 22.6% (36.0-47.0) 21.1% (36.0-47.0) Mean Corpuscular Volume 87fL (79-100) 89fL (79-100) Mean Corpuscular Hemoglobin 30pg (25-35) 30pg (25-35) Mean Corpuscular Hemoglobin Concent 35g/dL (31-37) 33g/dL (31-37) Red Cell Distribution Width 16.3% (11.5-14.5) 16.9% (11.5-14.5) Platelet Count 381x10^3/uL (140-400) 386x10^3/uL (140-400) Neutrophils (%) (Auto) 79% (31-73) 76% (31-73) Lymphocytes (%) (Auto) 10% (24-48) 13% (24-48) Monocytes (%) (Auto) 7% (0-9) 6% (0-9) Eosinophils (%) (Auto) 4% (0-3) 5% (0-3) Basophils (%) (Auto) 1% (0-3) 1% (0-3) Neutrophils # (Auto) 12.6x10^3uL (1.8-7.7) 10.3x10^3uL (1.8-7.7) Lymphocytes # (Auto) 1.6x10^3/uL (1.0-4.8) 1.7x10^3/uL (1.0-4.8) Monocytes # (Auto) 1.1x10^3/uL (0.0-1.1) 0.8x10^3/uL (0.0-1.1) Eosinophils # (Auto) 0.6x10^3/uL (0.0-0.7) 0.7x10^3/uL (0.0-0.7) Basophils # (Auto) 0.1x10^3/uL (0.0-0.2) 0.1x10^3/uL (0.0-0.2) Sodium Level 139mmol/L (136-145) 137mmol/L (136-145) Potassium Level 3.2mmol/L (3.5-5.1) 3.8mmol/L (3.5-5.1) Chloride Level 108mmol/L (98-107) 107mmol/L (98-107) Carbon Dioxide Level 22mmol/L (21-32) 24mmol/L (21-32) Anion Gap 9 (6-14) 6 (6-14) Blood Urea Nitrogen 17mg/dL (7-20) 18mg/dL (7-20) Creatinine 0.8mg/dL (0.6-1.0) 0.8mg/dL (0.6-1.0) Estimated GFR (Cockcroft-Gault) 78.7 78.7 Glucose Level 119mg/dL (70-99) 111mg/dL (70-99) Calcium Level 7.7mg/dL (8.5-10.1) 7.8mg/dL (8.5-10.1) Phosphorus Level 3.8mg/dL (2.6-4.7) Magnesium Level 1.5mg/dL (1.8-2.4) Test 08/20/16 08:00 O2 Saturation 96% (92-99) Arterial Blood pH 7.44 (7.35-7.45) Arterial Blood pCO2 at Patient Temp 31mmHg (35-46) Arterial Blood pO2 at Patient Temp 84mmHg (75-108) Arterial Blood HCO3 21mmol/L (21-28) Arterial Blood Base Excess -3mmol/L (-3-3) FiO2 35 Laboratory Tests Test 08/20/16 06:08 08/20/16 08:00 White Blood Count 13.7x10^3/uL (4.0-11.0) Red Blood Count 2.37x10^6/uL (3.50-5.40) Hemoglobin 7.0g/dL (12.0-15.5) Hematocrit 21.1% (36.0-47.0) Mean Corpuscular Volume 89fL (79-100) Mean Corpuscular Hemoglobin 30pg (25-35) Mean Corpuscular Hemoglobin Concent 33g/dL (31-37) Red Cell Distribution Width 16.9% (11.5-14.5) Platelet Count 386x10^3/uL (140-400) Neutrophils (%) (Auto) 76% (31-73) Lymphocytes (%) (Auto) 13% (24-48) Monocytes (%) (Auto) 6% (0-9) Eosinophils (%) (Auto) 5% (0-3) Basophils (%) (Auto) 1% (0-3) Neutrophils # (Auto) 10.3x10^3uL (1.8-7.7) Lymphocytes # (Auto) 1.7x10^3/uL (1.0-4.8) Monocytes # (Auto) 0.8x10^3/uL (0.0-1.1) Eosinophils # (Auto) 0.7x10^3/uL (0.0-0.7) Basophils # (Auto) 0.1x10^3/uL (0.0-0.2) Sodium Level 137mmol/L (136-145) Potassium Level 3.8mmol/L (3.5-5.1) Chloride Level 107mmol/L (98-107) Carbon Dioxide Level 24mmol/L (21-32) Anion Gap 6 (6-14) Blood Urea Nitrogen 18mg/dL (7-20) Creatinine 0.8mg/dL (0.6-1.0) Estimated GFR (Cockcroft-Gault) 78.7 Glucose Level 111mg/dL (70-99) Calcium Level 7.8mg/dL (8.5-10.1) Phosphorus Level 3.8mg/dL (2.6-4.7) Magnesium Level 1.5mg/dL (1.8-2.4) O2 Saturation 96% (92-99) Arterial Blood pH 7.44 (7.35-7.45) Arterial Blood pCO2 at Patient Temp 31mmHg (35-46) Arterial Blood pO2 at Patient Temp 84mmHg (75-108) Arterial Blood HCO3 21mmol/L (21-28) Arterial Blood Base Excess -3mmol/L (-3-3) FiO2 35 Medications Active Scripts Medications Dose Route/Sig Days Date Category No Known Medications Prior To Admisstion (Info) Each 1 Each 08/06/16 Reported Impression . 1. Acute hypoxemic respiratory failure, multifactorial in etiology 2. will try T-piece again today 3. Bilateral pulmonary nodules with cavitation, due to septic emboli. 4. Endocarditis. right sided, improving vegetations 5. ? chronic obstructive pulmonary disease. 6. Leukocytosis./fever, improved 7. Anemia. 8. Thrombocytopenia. off lovenox 10. Intravenous drug abuse. 11. Tobacco habituation. 12. MSSA septicemia/pneumonia/ CHF Plan . WILL CONTINUE TO WEAN WITH PS/ T-PEICE TOLERATED SHE SHOULD BE WEANABLE s/p trach Bronch with MSSA, antibiotics per ID, CARLEY WORKMAN MD August 20, 2016 11:16
[2016-08-20] MEDS: ENOXAPARIN 40 MG/0.4 ML SYRINGE. SQ SCH (11:34)
[2016-08-20] MEDS: ALPRAZolam 0.5 MG TABLET PEG SCH ×3 (11:34→21:18)
[2016-08-20] MEDS: FAMOTIDINE 20 MG/2 ML VIAL IVP SCH ×2 (11:34→21:18)
[2016-08-20] MEDS: NYSTATIN TOPICAL POWDER 15GM BOTTLE. TP SCH ×2 (11:35→21:18)
--- NOTE | 2016-08-20 13:03 | PDOC ---
PROGRESS NOTES Chief Complaint Chief Complaint cc: Septic emboli, IV drug use, respiratory failure -Endocarditis -Resp failure on Vent -Polysubstance abuse -Hep C, right -Rotator cuff repair -Tobacco use -20lb weight loss over the last couple of months -Renal insufficiency -Pneumonia -Anemia requiring transfusions History of Present Illness History of Present Illness Ms. Escamilla was sitting in her chair when we visited with her. She was hooked up to a T-tube per the respiratory therapist. We discussed care with her nurse and RT. Vitals Vitals Vital Signs Date Time Temp Pulse Resp B/P Pulse Ox O2 Delivery O2 Flow Rate FiO2 08/20/16 11:33 100 08/20/16 11:08 Ventilator 08/20/16 09:00 110 27 100/61 08/20/16 08:00 98.4 98.4 Physical Exam General: Alert, No acute distress Heart: Normal S1, Normal S2, No murmurs Lungs: Other (decrease bs) Abdomen: Normal bowel sounds, Other (Hepatosplenomegaly present) Extremities: No cyanosis, No edema Skin: No breakdown, No significant lesion Labs LABS Laboratory Tests Test 08/20/16 06:08 08/20/16 08:00 White Blood Count 13.7x10^3/uL (4.0-11.0) Red Blood Count 2.37x10^6/uL (3.50-5.40) Hemoglobin 7.0g/dL (12.0-15.5) Hematocrit 21.1% (36.0-47.0) Mean Corpuscular Volume 89fL (79-100) Mean Corpuscular Hemoglobin 30pg (25-35) Mean Corpuscular Hemoglobin Concent 33g/dL (31-37) Red Cell Distribution Width 16.9% (11.5-14.5) Platelet Count 386x10^3/uL (140-400) Neutrophils (%) (Auto) 76% (31-73) Lymphocytes (%) (Auto) 13% (24-48) Monocytes (%) (Auto) 6% (0-9) Eosinophils (%) (Auto) 5% (0-3) Basophils (%) (Auto) 1% (0-3) Neutrophils # (Auto) 10.3x10^3uL (1.8-7.7) Lymphocytes # (Auto) 1.7x10^3/uL (1.0-4.8) Monocytes # (Auto) 0.8x10^3/uL (0.0-1.1) Eosinophils # (Auto) 0.7x10^3/uL (0.0-0.7) Basophils # (Auto) 0.1x10^3/uL (0.0-0.2) Sodium Level 137mmol/L (136-145) Potassium Level 3.8mmol/L (3.5-5.1) Chloride Level 107mmol/L (98-107) Carbon Dioxide Level 24mmol/L (21-32) Anion Gap 6 (6-14) Blood Urea Nitrogen 18mg/dL (7-20) Creatinine 0.8mg/dL (0.6-1.0) Estimated GFR (Cockcroft-Gault) 78.7 Glucose Level 111mg/dL (70-99) Calcium Level 7.8mg/dL (8.5-10.1) Phosphorus Level 3.8mg/dL (2.6-4.7) Magnesium Level 1.5mg/dL (1.8-2.4) O2 Saturation 96% (92-99) Arterial Blood pH 7.44 (7.35-7.45) Arterial Blood pCO2 at Patient Temp 31mmHg (35-46) Arterial Blood pO2 at Patient Temp 84mmHg (75-108) Arterial Blood HCO3 21mmol/L (21-28) Arterial Blood Base Excess -3mmol/L (-3-3) FiO2 35 Review of Systems Review of Systems General: Complains of pain GI: denies N/V/D/C Assessment and Plan Assessmemt and Plan Assessment: -Septic emboli -IV drug use -Endocarditis -Resp failure with prior Vent needed -Polysubstance abuse -Hep C, right -Rotator cuff repair -Tobacco use -20lb weight loss over the last couple of months -Renal insufficiency -Pneumonia -Anemia requiring transfusions Plan: -Transfused with 2units of PRBCs due to Hg 7.0. -Trend Hg/Hct -Recheck AM labs -Per pulm- 40% T-Tube during day and CPAP at night -Awaiting possible LTAC acceptance -D/C disposition pending -PT/OT if appropriate -Subspecialty input appreciated Problems: Comment Review of Relevant I have reviewed the following items shanta (where applicable) has been applied. Labs Laboratory Tests Test 08/18/16 13:20 08/19/16 05:40 08/19/16 08:15 08/20/16 06:08 O2 Saturation 89% (92-99) 97% (92-99) Arterial Blood pH 7.45 (7.35-7.45) 7.43 (7.35-7.45) Arterial Blood pCO2 at Patient Temp 29mmHg (35-46) 31mmHg (35-46) Arterial Blood pO2 at Patient Temp 54mmHg (75-108) 92mmHg (75-108) Arterial Blood HCO3 20mmol/L (21-28) 20mmol/L (21-28) Arterial Blood Base Excess -4mmol/L (-3-3) -3mmol/L (-3-3) FiO2 40 35% White Blood Count 16.1x10^3/uL (4.0-11.0) 13.7x10^3/uL (4.0-11.0) Red Blood Count 2.61x10^6/uL (3.50-5.40) 2.37x10^6/uL (3.50-5.40) Hemoglobin 7.9g/dL (12.0-15.5) 7.0g/dL (12.0-15.5) Hematocrit 22.6% (36.0-47.0) 21.1% (36.0-47.0) Mean Corpuscular Volume 87fL (79-100) 89fL (79-100) Mean Corpuscular Hemoglobin 30pg (25-35) 30pg (25-35) Mean Corpuscular Hemoglobin Concent 35g/dL (31-37) 33g/dL (31-37) Red Cell Distribution Width 16.3% (11.5-14.5) 16.9% (11.5-14.5) Platelet Count 381x10^3/uL (140-400) 386x10^3/uL (140-400) Neutrophils (%) (Auto) 79% (31-73) 76% (31-73) Lymphocytes (%) (Auto) 10% (24-48) 13% (24-48) Monocytes (%) (Auto) 7% (0-9) 6% (0-9) Eosinophils (%) (Auto) 4% (0-3) 5% (0-3) Basophils (%) (Auto) 1% (0-3) 1% (0-3) Neutrophils # (Auto) 12.6x10^3uL (1.8-7.7) 10.3x10^3uL (1.8-7.7) Lymphocytes # (Auto) 1.6x10^3/uL (1.0-4.8) 1.7x10^3/uL (1.0-4.8) Monocytes # (Auto) 1.1x10^3/uL (0.0-1.1) 0.8x10^3/uL (0.0-1.1) Eosinophils # (Auto) 0.6x10^3/uL (0.0-0.7) 0.7x10^3/uL (0.0-0.7) Basophils # (Auto) 0.1x10^3/uL (0.0-0.2) 0.1x10^3/uL (0.0-0.2) Sodium Level 139mmol/L (136-145) 137mmol/L (136-145) Potassium Level 3.2mmol/L (3.5-5.1) 3.8mmol/L (3.5-5.1) Chloride Level 108mmol/L (98-107) 107mmol/L (98-107) Carbon Dioxide Level 22mmol/L (21-32) 24mmol/L (21-32) Anion Gap 9 (6-14) 6 (6-14) Blood Urea Nitrogen 17mg/dL (7-20) 18mg/dL (7-20) Creatinine 0.8mg/dL (0.6-1.0) 0.8mg/dL (0.6-1.0) Estimated GFR (Cockcroft-Gault) 78.7 78.7 Glucose Level 119mg/dL (70-99) 111mg/dL (70-99) Calcium Level 7.7mg/dL (8.5-10.1) 7.8mg/dL (8.5-10.1) Phosphorus Level 3.8mg/dL (2.6-4.7) Magnesium Level 1.5mg/dL (1.8-2.4) Test 08/20/16 08:00 O2 Saturation 96% (92-99) Arterial Blood pH 7.44 (7.35-7.45) Arterial Blood pCO2 at Patient Temp 31mmHg (35-46) Arterial Blood pO2 at Patient Temp 84mmHg (75-108) Arterial Blood HCO3 21mmol/L (21-28) Arterial Blood Base Excess -3mmol/L (-3-3) FiO2 35 Laboratory Tests Test 08/20/16 06:08 08/20/16 08:00 White Blood Count 13.7x10^3/uL (4.0-11.0) Red Blood Count 2.37x10^6/uL (3.50-5.40) Hemoglobin 7.0g/dL (12.0-15.5) Hematocrit 21.1% (36.0-47.0) Mean Corpuscular Volume 89fL (79-100) Mean Corpuscular Hemoglobin 30pg (25-35) Mean Corpuscular Hemoglobin Concent 33g/dL (31-37) Red Cell Distribution Width 16.9% (11.5-14.5) Platelet Count 386x10^3/uL (140-400) Neutrophils (%) (Auto) 76% (31-73) Lymphocytes (%) (Auto) 13% (24-48) Monocytes (%) (Auto) 6% (0-9) Eosinophils (%) (Auto) 5% (0-3) Basophils (%) (Auto) 1% (0-3) Neutrophils # (Auto) 10.3x10^3uL (1.8-7.7) Lymphocytes # (Auto) 1.7x10^3/uL (1.0-4.8) Monocytes # (Auto) 0.8x10^3/uL (0.0-1.1) Eosinophils # (Auto) 0.7x10^3/uL (0.0-0.7) Basophils # (Auto) 0.1x10^3/uL (0.0-0.2) Sodium Level 137mmol/L (136-145) Potassium Level 3.8mmol/L (3.5-5.1) Chloride Level 107mmol/L (98-107) Carbon Dioxide Level 24mmol/L (21-32) Anion Gap 6 (6-14) Blood Urea Nitrogen 18mg/dL (7-20) Creatinine 0.8mg/dL (0.6-1.0) Estimated GFR (Cockcroft-Gault) 78.7 Glucose Level 111mg/dL (70-99) Calcium Level 7.8mg/dL (8.5-10.1) Phosphorus Level 3.8mg/dL (2.6-4.7) Magnesium Level 1.5mg/dL (1.8-2.4) O2 Saturation 96% (92-99) Arterial Blood pH 7.44 (7.35-7.45) Arterial Blood pCO2 at Patient Temp 31mmHg (35-46) Arterial Blood pO2 at Patient Temp 84mmHg (75-108) Arterial Blood HCO3 21mmol/L (21-28) Arterial Blood Base Excess -3mmol/L (-3-3) FiO2 35 Microbiology 08/09/16 Blood Culture - Final, Complete NO GROWTH AFTER 5 DAYS 08/08/16 AFB Specimen Processing Tissue - Final, Resulted 08/08/16 Acid Fast Bacilli Culture, Resulted Pending 08/08/16 Gram Stain - Final, Resulted 08/08/16 Fungal Culture - Preliminary, Resulted 08/08/16 Fungal Culture Result 1 - Preliminary, Resulted Medications Current Medications Amino Acids/ Glycerin/ Electrolytes (Procalamine) 1,000 ml @ 100 mls/hr Q10H IV Last administered on 08/05/16 02:40; Start 08/02/16 at 03:00; Stop at 08:50; Status DC Morphine Sulfate 2 mg 2 mg PRN Q2HR PRN IV SEVERE PAIN Last administered on 11:59; Start 08/02/16 at 02:30; Stop 08/02/16 at 13:28; Status DC Daptomycin 220 mg/ Sodium Chloride 50 ml @ 100 mls/hr Q24H IV ; Start 08/02/16 at 09:15; Stop 08/02/16 at 15:58; Status DC Cefepime HCl 1 gm/ Sodium Chloride 50 ml @ 100 mls/hr Q12HR IV Last administered on 08/04/16 08:10; Start 08/02/16 at 10:00; Stop 08/04/16 at 10:33 ; Status DC Daptomycin/Sodium Chloride (Cubicin/Iv Sodium Chloride 0.9% 50ml) 50 ml @ 100 mls/hr ONCE ONCE IV ; Start 08/02/16 at 10:00; Stop 08/02/16 at 10:29; Status Cancel Potassium Chloride 40 meq 40 meq 1X ONCE PO Last administered on 08/02/16 10: 17; Start 08/02/16 at 09:45; Stop 08/02/16 at 09:46; Status DC Daptomycin/Sodium Chloride (Cubicin/Iv Sodium Chloride 0.9% 50ml) 50 ml @ 100 mls/hr Q24H IV Last administered on 08/03/16 09:43; Start 08/02/16 at 10:15; Stop 08/03/16 at 10:29; Status DC Potassium Chloride (Klor-Con) 40 meq 1X ONCE PO Last administered on 12:57; Start 08/02/16 at 12:30; Stop 08/02/16 at 12:36; Status DC Morphine Sulfate 5 mg PRN Q2HRS PRN IV MODERATE TO SEVERE PAIN Last administered on 08/04/16 08:16; Start 08/02/16 at 13:30 Morphine Sulfate 8 mg PRN Q2HRS PRN IV MODERATE TO SEVERE PAIN Last administered on 08/04/16 14:58; Start 08/02/16 at 13:30 Acetaminophen 650 mg 650 mg PRN Q6HRS PRN PO TEMP GREATER THAN 100.4 Last administered on 08/10/16 00:18; Start 08/02/16 at 14:45 Lactated Ringer's 1,000 ml @ 50 mls/hr Q20H IV ; Start 08/05/16 at 07:00; Stop 08/05/16 at 18:13; Status DC Daptomycin/Sodium Chloride (Cubicin/Iv Sodium Chloride 0.9% 50ml) 50 ml @ 100 mls/hr Q24H IV ; Start 08/03/16 at 11:00; Status Cancel Potassium Chloride (Klor-Con) 40 meq 1X ONCE PO Last administered on 17:41; Start 08/02/16 at 17:15; Stop 08/02/16 at 17:18; Status DC Potassium Chloride (Klor-Con) 40 meq BIDWMEALS PO ; Start 08/03/16 at 08:00; Stop 08/03/16 at 11:08; Status DC Morphine Sulfate 5 mg 1X ONCE IV Last administered on 08/02/16 21:45; Start 08/02/16 at 21:30; Stop 08/02/16 at 21:33; Status DC Lorazepam (Ativan) 1 mg 1X ONCE IV Last administered on 08/02/16 21:30; Start 08/02/16 at 21:30; Stop 08/02/16 at 21:33; Status DC Acetaminophen (Acetaminophen Supp) 650 mg PRN Q6HRS PRN WI MILD PAIN / TEMP Last administered on 08/13/16 03:13; Start 08/03/16 at 01:15 Albuterol/ Ipratropium (Duoneb) 3 ml RTQID NEB Last administered on 08/20/16 11 :08; Start 08/03/16 at 08:00 Budesonide (Pulmicort) 0.5 mg RTBID NEB Last administered on 08/20/16 07:16; Start 08/03/16 at 08:00 Pantoprazole Sodium 40 mg 40 mg 1X ONCE IVP Last administered on 08/03/16 10: 06; Start 08/03/16 at 08:00; Stop 08/03/16 at 08:01; Status DC Daptomycin/Sodium Chloride (Cubicin/Iv Sodium Chloride 0.9% 50ml) 50 ml @ 100 mls/hr Q24H IV Last administered on 08/04/16 10:03; Start 08/04/16 at 10:00; Stop 08/04/16 at 10:33; Status DC Lorazepam (Ativan) 0.5 mg PRN Q6HRS PRN IV ANXIETY / AGITATION Last administered on 08/04/16 09:12; Start 08/03/16 at 11:15; Stop 08/07/16 at 11:02 ; Status DC Lorazepam (Ativan) 0.5 mg 1X ONCE IV Last administered on 08/04/16 10:00; Start 08/04/16 at 10:00; Stop 08/04/16 at 10:01; Status DC Morphine Sulfate 5 mg 1X ONCE IV Last administered on 08/04/16 10:00; Start 08/04/16 at 10:00; Stop 08/04/16 at 10:01; Status DC Lorazepam 0.5 mg 0.5 mg PRN Q4HRS PRN IV ANXIETY / AGITATION Last administered on 08/19/16 04:42; Start 08/04/16 at 10:00 Nafcillin Sodium 2 gm/Sodium Chloride 100 ml @ 200 mls/hr Q4HRS IV Last administered on 08/09/16 10:10; Start 08/04/16 at 12:00; Stop 08/09/16 at 11:49 ; Status DC Propofol (Diprivan) 100 ml @ As Directed STK-MED ONCE IV ; Start 08/04/16 at 16 :10; Stop 08/04/16 at 16:11; Status DC Succinylcholine Chloride (Anectine) 200 mg STK-MED ONCE .ROUTE ; Start 08/04/16 at 16:14; Stop 08/04/16 at 16:15; Status DC Succinylcholine Chloride 200 mg 200 mg 1X ONCE IV ; Start 08/04/16 at 16:45; Stop 08/04/16 at 16:46; Status DC Propofol (Diprivan) 100 ml @ 0 mls/hr CONT PRN IV SEE I/O RECORD Last administered on 08/17/16 10:18; Start 08/04/16 at 16:45 Lorazepam (Ativan) 0.5 mg 1X ONCE IV Last administered on 08/04/16 16:45; Start 08/04/16 at 16:45; Stop 08/04/16 at 16:46; Status DC Morphine Sulfate 5 mg 5 mg 1X ONCE IV Last administered on 08/04/16 16:44; Start 08/04/16 at 16:45; Stop 08/04/16 at 16:46; Status DC Fentanyl Citrate (Fentanyl 600 Mcg/30 ml HEADLINER INSTALLER) 30 ml @ 0 mls/hr CONT PRN IV PROTOCOL Last administered on 08/20/16 11:33; Start 08/04/16 at 16:45 Chlorhexidine Gluconate (Peridex) 15 ml BID MM Last administered on 08/17/16 10:18; Start 08/04/16 at 21:00; Stop 08/17/16 at 19:36; Status DC Famotidine 20 mg 20 mg BID IVP Last administered on 08/20/16 11:34; Start 08/04 at 17:00 Sodium Chloride (Iv Sodium Chloride 0.9% 1000ml Bag) 1,000 ml @ 100 mls/hr Q10H IV Last administered on 08/07/16 04:35; Start 08/05/16 at 09:00; Stop at 08:59; Status DC Succinylcholine Chloride (Anectine) 200 mg STK-MED ONCE .ROUTE ; Start 08/04/16 at 16:00; Stop 08/05/16 at 12:32; Status DC Lorazepam (Ativan) 2 mg 1X ONCE IV Last administered on 08/05/16 20:43; Start 08/05/16 at 21:00; Stop 08/05/16 at 21:01; Status DC Furosemide (Lasix) 40 mg 1X PRN PRN IV blood transfusion Last administered on 14:17; Start 08/06/16 at 08:00; Stop 08/07/16 at 07:59; Status DC Sodium Bicarbonate 50 meq 1X ONCE IV Last administered on 08/06/16 14:06; Start 08/06/16 at 12:00; Stop 08/06/16 at 12:01; Status DC Calcium Chloride 1,000 mg STK-MED ONCE IV ; Start 08/04/16 at 12:00; Stop at 15:13; Status DC Epinephrine HCl (Epinephrine Syringe) 2 mg STK-MED ONCE .ROUTE ; Start 08/04/16 at 12:00; Stop 08/06/16 at 15:13; Status DC Sodium Bicarbonate 100 meq 100 meq STK-MED ONCE .ROUTE ; Start 08/04/16 at 12:00 ; Stop 08/06/16 at 15:13; Status DC Amino Acids/ Glycerin/ Electrolytes (Procalamine) 1,000 ml @ 100 mls/hr Q10H IV Last administered on 08/08/16 12:33; Start 08/07/16 at 10:00; Stop at 09:42; Status DC Enoxaparin Sodium (Lovenox 40mg Syringe) 40 mg Q24H SQ Last administered on 13:10; Start 08/07/16 at 13:00; Stop 08/10/16 at 10:43; Status DC Vecuronium [place] (Norcuron Bolus) 10 mg STK-MED ONCE IV ; Start 08/07/16 at 13 :56; Stop 08/07/16 at 13:57; Status DC Vecuronium [place] (Norcuron Bolus) 6 mg 1X ONCE IV Last administered on 14:06; Start 08/07/16 at 14:00; Stop 08/07/16 at 14:05; Status DC Sodium Bicarbonate 50 meq 1X ONCE IV Last administered on 08/08/16 11:46; Start 08/08/16 at 11:45; Stop 08/08/16 at 11:46; Status DC Nystatin 1 james 1 james BID TP Last administered on 08/20/16 11:35; Start at 21:00 Linezolid 300 ml @ 300 mls/hr Q12HR IV Last administered on 08/14/16 20:51; Start 08/09/16 at 09:00; Stop 08/15/16 at 07:21; Status DC Sodium Chloride 1,000 ml @ 20 mls/hr Q24H IV Last administered on 08/19/16 15: 27; Start 08/09/16 at 09:45 Sodium Bicarbonate/ Dextrose 1,150 ml @ 100 mls/hr 1X ONCE IV Last administered on 08/09/16 12:25; Start 08/09/16 at 11:30; Stop 08/09/16 at 22:59 ; Status DC Piperacillin Sod/ Tazobactam Sod 1 each 1 each PRN DAILY PRN MC SEE COMMENTS; Start 08/09/16 at 12:00; Stop 08/14/16 at 07:40; Status DC Piperacillin Sod/ Tazobactam Sod/ Sodium Chloride (Zosyn/Iv Sodium Chloride 0.9 % 100ml) 100 ml @ 200 mls/hr Q6HRS IV Last administered on 08/14/16 05:58; Start 08/09/16 at 12:30; Stop 08/14/16 at 07:33; Status DC Vecuronium [place] 5 mg 5 mg PRN Q4HRS PRN IV INCREASED RESPIRATORY,NOT RELI Last administered on 08/11/16 02:56; Start 08/09/16 at 13:30 Potassium Chloride 50 ml @ 100 mls/hr Q1H IV ; Start 08/10/16 at 09:30; Stop at 10:59; Status Cancel Potassium Chloride (KCl Premix 10meq) 100 ml @ 100 mls/hr Q1H IV Last administered on 08/10/16 16:28; Start 08/10/16 at 10:30; Stop 08/10/16 at 14:29 ; Status DC Potassium Chloride 60 meq 60 meq 1X ONCE PEG Last administered on 08/10/16 11 :16; Start 08/10/16 at 11:00; Stop 08/10/16 at 11:01; Status DC Sodium Bicarbonate/ Dextrose 1,150 ml @ 100 mls/hr [id number] IV Last administered on 08/10/16 11:14; Start 08/10/16 at 11:00; Stop 08/10/16 at 22:29 ; Status DC Enoxaparin Sodium 40 mg 40 mg Q24H SQ ; Start 08/10/16 at 13:00; Stop 08/10/16 at 13:00; Status DC Micafungin Sodium/ Dextrose (Mycamine) 100 ml @ 100 mls/hr Q24H IV Last administered on 08/13/16 16:26; Start 08/11/16 at 16:00; Stop 08/14/16 at 07:33 ; Status DC Furosemide (Lasix) 40 mg 1X ONCE IVP Last administered on 08/12/16 08:38; Start 08/12/16 at 08:00; Stop 08/12/16 at 08:06; Status DC Morphine Sulfate 1 mg 1 mg PRN Q10MIN PRN IV SEVERE PAIN; Start 08/13/16 at 07: 00; Stop 08/14/16 at 06:59; Status DC Lactated Ringer's (Iv Lactated Ringers) 1,000 ml @ 0 mls/hr Q0M IV ; Start at 07:00; Stop 08/13/16 at 18:59; Status DC Lidocaine HCl 2 ml PRN 1X PRN ID PRIOR TO IV START; Start 08/13/16 at 07:00; Stop 08/14/16 at 06:59; Status DC Hydromorphone HCl (Dilaudid) 0.5 mg PRN Q10MIN PRN IV SEV PAIN, Second choice; Start 08/13/16 at 07:00; Stop 08/14/16 at 06:59; Status DC Prochlorperazine Edisylate (Compazine) 5 mg PACU PRN PRN IV NAUSEA, MRX1; Start 08/13/16 at 07:00; Stop 08/14/16 at 06:59; Status DC Morphine Sulfate 1 mg 1 mg PRN Q10MIN PRN IV SEVERE PAIN; Start 08/13/16 at 07: 00; Stop 08/14/16 at 06:59; Status DC Lactated Ringer's (Iv Lactated Ringers) 1,000 ml @ 0 mls/hr Q0M IV ; Start at 07:00; Stop 08/13/16 at 18:59; Status DC Lidocaine HCl 2 ml PRN 1X PRN ID PRIOR TO IV START; Start 08/13/16 at 07:00; Stop 08/14/16 at 06:59; Status DC Hydromorphone HCl (Dilaudid) 0.5 mg PRN Q10MIN PRN IV SEV PAIN, Second choice; Start 08/13/16 at 07:00; Stop 08/14/16 at 06:59; Status DC Prochlorperazine Edisylate 5 mg 5 mg PACU PRN PRN IV NAUSEA, MRX1; Start at 07:00; Stop 08/14/16 at 06:59; Status DC Potassium Chloride (KCl Premix 20meq) 50 ml @ 50 mls/hr Q1H IV Last administered on 08/13/16t 07:57; Start 08/13/16 at 07:00; Stop 08/13/16 at 08:59 ; Status DC Rocuronium [place] 50 mg 50 mg STK-MED ONCE .ROUTE ; Start 08/13/16 at 12:50; Stop 08/13/16 at 12:51; Status DC Propofol (Diprivan) 20 ml @ As Directed STK-MED ONCE IV ; Start 08/13/16 at 12: 53; Stop 08/13/16 at 12:54; Status DC Sevoflurane 30 ml 30 ml STK-MED ONCE IH ; Start 08/13/16 at 14:04; Stop at 14:05; Status DC Albumin Human 250 ml @ 100 mls/hr 1X ONCE IV Last administered on 08/13/16 23:38; Start 08/13/16 at 18:00; Stop 08/13/16 at 20:29; Status DC Albumin Human 500 ml @ 100 mls/hr 1X ONCE IV Last administered on 08/13/16 18:15; Start 08/13/16 at 18:00; Stop 08/13/16 at 22:59; Status DC Potassium Chloride 50 ml @ 50 mls/hr Q1H IV Last administered on 08/14/16 10: 46; Start 08/14/16 at 08:00; Stop 08/14/16 at 09:59; Status DC Nafcillin Sodium/ Sodium Chloride (Iv Sodium Chloride 0.9% 100ml) 100 ml @ 200 mls/hr Q4HRS IV Last administered on 08/20/16 11:38; Start 08/14/16 at 08:00 Enoxaparin Sodium (Lovenox 40mg Syringe) 40 mg Q24H SQ Last administered on 08/20 11:34; Start 08/14/16 at 12:00 Potassium Chloride (KCl Oral Soln) 40 meq 1X ONCE PEG Last administered on 07:54; Start 08/16/16 at 07:00; Stop 08/16/16 at 07:01; Status DC Potassium Chloride 40 meq 40 meq 1X ONCE PEG Last administered on 08/16/16 14 :01; Start 08/16/16 at 12:00; Stop 08/16/16 at 12:01; Status DC Magnesium Sulfate/ Dextrose (Magnesium Sulfate PREMIX 2GM) 50 ml @ 25 mls/hr 1X ONCE IV Last administered on 08/16/16 17:14; Start 08/16/16 at 16:30; Stop 08/16/16 at 18:29; Status DC Potassium Chloride (Klor-Con) 40 meq 1X ONCE PO ; Start 08/17/16 at 13:30; Stop 08/17/16 at 13:31; Status Cancel Potassium Chloride 40 meq 40 meq 1X ONCE PO Last administered on 08/17/16 15: 34; Start 08/17/16 at 13:30; Stop 08/17/16 at 14:27; Status DC Potassium Chloride 100 ml @ 100 mls/hr PRN Q1HR PRN IV HYPOKALEMIA PER ICU PROTOCOL; Start 08/17/16 at 13:30 Potassium Chloride (KCl Premix 20meq) 50 ml @ 25 mls/hr PRN Q2HR PRN IV HYPOKALEMIA PER ICU PROTOCOL; Start 08/17/16 at 13:30 Potassium Chloride 40 meq 40 meq PRN Q2HR PRN PO HYPOKALEMIA PER ICU PROTOCOL; Start 08/17/16 at 13:30 Potassium Chloride 100 ml @ 100 mls/hr PRN Q1HR PRN IV HYPOKALEMIA PER ICU PROTOCOL; Start 08/17/16 at 13:30 Potassium Chloride (KCl Premix 20meq) 50 ml @ 25 mls/hr PRN Q2HR PRN IV HYPOKALEMIA PER ICU PROTOCOL; Start 08/17/16 at 13:30 Potassium Chloride 40 meq 40 meq PRN Q2HR PRN PO HYPOKALEMIA PER ICU PROTOCOL; Start 08/17/16 at 13:30 Potassium Chloride 100 ml @ 100 mls/hr PRN Q1HR PRN IV HYPOKALEMIA PER ICU PROTOCOL; Start 08/17/16 at 13:30 Potassium Chloride 50 ml @ 25 mls/hr PRN Q2HR PRN IV HYPOKALEMIA PER ICU PROTOCOL; Start 08/17/16 at 14:00 Magnesium Sulfate/ Dextrose (Magnesium Sulfate PREMIX 4GM) 100 ml @ 50 mls/hr PRN DAILY PRN IV HYPOMAGNESIA PER ICU PROTOCOL; Start 08/18/16 at 09:00 Potassium Phos/ Sodium Phos 1 pkt 1 pkt BID PO ; Start 08/17/16 at 21:00; Stop 08/18/16 at 09:01; Status DC Sodium Phosphate/ Dextrose 263.3333 ml @ 62.5 mls/hr PRN 1X PRN IV HYPOPHOSP PER ICU PROTOCOL; Start 08/17/16 at 13:30 Potassium Chloride (KCl Oral Soln) 40 meq 1X ONCE PEG Last administered on 08/19t 07:57; Start 08/19/16 at 07:45; Stop 08/19/16 at 07:46; Status DC Potassium Chloride (KCl Oral Soln) 40 meq 1X ONCE PEG Last administered on 08/19t 11:36; Start 08/19/16 at 12:00; Stop 08/19/16 at 12:01; Status DC Alprazolam (Xanax) 0.5 mg 1X ONCE PO Last administered on 08/19/16 11:35; Start 08/19/16 at 11:15; Stop 08/19/16 at 11:16; Status DC Alprazolam (Xanax) 0.5 mg TID PEG Last administered on 08/20/16 11:34; Start at 15:00 Active Scripts Active Reported No Known Medications Prior To Admisstion (Info) Each 1 Each Vitals/I & O Vital Sign - Last 24 Hours 08/19/16 08/19/16 08/19/16 08/19/16 13:00 13:30 13:35 14:00 Pulse 106 112 Resp 32 31 B/P 121/72 111/73 Pulse Ox 100 97 99 O2 Delivery Ventilator Mechanical Ventilator Ventilator Ventilator 08/19/16 08/19/16 08/19/16 08/19/16 15:00 15:29 15:31 16:00 Pulse 112 Resp 29 28 30 B/P 114/72 Pulse Ox 99 99 99 99 O2 Delivery Ventilator Ventilator Ventilator Ventilator 08/19/16 08/19/16 08/19/16 08/19/16 16:00 16:00 16:00 17:00 Temp 98.3 98.3 Pulse 94 110 Resp 26 27 B/P 119/81 112/68 Pulse Ox 98 100 O2 Delivery Mechanical Ventilator Mechanical Ventilator Ventilator Ventilator 08/19/16 08/19/16 08/19/16 08/19/16 17:10 18:00 19:00 19:40 Pulse 110 110 Resp 30 29 B/P 111/59 113/67 Pulse Ox 99 99 99 99 O2 Delivery Ventilator Ventilator Ventilator Ventilator 08/19/16 08/19/16 08/19/16 08/19/16 20:00 20:00 21:00 22:00 Temp 98.6 98.6 Pulse 110 116 112 Resp 27 28 27 B/P 112/72 104/62 102/61 Pulse Ox 100 99 99 O2 Delivery Mechanical Ventilator Ventilator Ventilator Ventilator 08/19/16 08/19/16 08/20/16 08/20/16 22:58 23:00 00:00 00:00 Temp 98.4 98.4 Pulse 114 111 Resp 26 25 B/P 108/63 114/78 Pulse Ox 99 99 100 O2 Delivery Ventilator Ventilator Ventilator Mechanical Ventilator 08/20/16 08/20/16 08/20/16 08/20/16 01:00 01:00 01:41 02:00 Pulse 112 114 Resp 23 29 B/P 107/69 102/63 Pulse Ox 99 99 99 O2 Delivery Ventilator Ventilator Ventilator Ventilator 08/20/16 08/20/16 08/20/16 08/20/16 03:00 04:00 04:00 05:00 Temp 98.6 98.6 Pulse 110 106 104 Resp 27 27 28 B/P 103/68 105/63 98/54 Pulse Ox 99 100 99 O2 Delivery Ventilator Mechanical Ventilator Ventilator Ventilator 08/20/16 08/20/16 08/20/16 08/20/16 05:05 06:00 07:00 07:16 Pulse 104 106 Resp 27 26 B/P 106/68 106/68 Pulse Ox 99 99 100 99 O2 Delivery Ventilator Ventilator Ventilator Ventilator 08/20/16 08/20/16 08/20/16 08/20/16 08:00 08:00 09:00 09:03 Temp 98.4 98.4 Pulse 112 110 Resp 24 27 B/P 106/72 100/61 Pulse Ox 100 99 99 O2 Delivery Ventilator Trach Collar Tracheal Collar Ventilator 08/20/16 08/20/16 11:08 11:33 Pulse Ox 99 100 O2 Delivery Ventilator Intake and Output 08/19/16 08/19/16 08/20/16 15:00 23:00 07:00 Intake Total 150 ml 1717 ml 1501.7 ml Output Total 50 ml 1225 ml 525 ml Balance 100 ml 492 ml 976.7 ml Nutrition Consultation Dietary Evaluation: Recommendations by RD: PPN/TPN Comments: Pt is s/p PEG placement 08/14 Rec. TF's with Isosource HN, goal rate 45 ml/hr flushes 150ml q6h Expected Outcomes/Goals: tolerate the TF's via PEG at goal rate meet 75% estimated nutrition needs Malnutrition Findings: Reduced Bus Greaser Strength: N/A Reduced Bus Greaser Strength (Non-Sev: N/A Malnutrition related to morbid: No Weight Status: Overweight Fluid Accumulation (N/A): N/A CODY BLACK III DO August 20, 2016 13:03
[2016-08-21] VITALS (24 sets, daily range): BP systolic 103–158; BP diastolic 64–99
[2016-08-21] MEDS: NAFCILLIN 2 GM in IV NORMAL SALINE 100ML 100 ML IV SCH ×7 (00:09→23:34)
[2016-08-21 06:05] LABS: BASO # 0.1 x10^3/uL (0.0-0.2); BASO % 1 % (0-3); EOS % 4 % (0-3); HEMATOCRIT 27.7 % (36.0-47.0); HEMOGLOBIN 9.5 g/dL (12.0-15.5); LYMPH # 1.5 x10^3/uL (1.0-4.8); LYMPH % 10 % (24-48); MEAN CORPUSCULAR HEMOGLOBIN 30 pg (25-35); MEAN CORPUSCULAR HGB CONC 34 g/dL (31-37); MEAN CORPUSCULAR VOLUME 87 fL (79-100); MONO % 7 % (0-9); NEUT % 78 % (31-73); PLATELET COUNT 422 x10^3/uL (140-400); RED BLOOD COUNT 3.19 x10^6/uL (3.50-5.40); RED CELL DISTRIBUTION WIDTH 16.2 % (11.5-14.5); WHITE BLOOD COUNT 15.8 x10^3/uL (4.0-11.0)
[2016-08-21 06:07] LABS: CALCIUM 7.8 mg/dL (8.5-10.1); CREATININE 0.8 mg/dL (0.6-1.0); GFR 78.7; MAGNESIUM 2.2 mg/dL (1.8-2.4); PHOSPHORUS 3.7 mg/dL (2.6-4.7); POTASSIUM 3.3 mmol/L (3.5-5.1)
[2016-08-21] MEDS: POTASSIUM CHLORIDE 20MEQ 50 ML IV PRN ×2 (06:24→13:29)
[2016-08-21] MEDS: IV 1/2 NORMAL SALINE 1,000 ML IV SCH ×2 (07:32→13:31)
[2016-08-21] MEDS: FAMOTIDINE 20 MG/2 ML VIAL IVP SCH ×2 (08:34→21:02)
[2016-08-21] MEDS: ALPRAZolam 0.5 MG TABLET PEG SCH ×3 (08:34→21:01)
[2016-08-21] MEDS: NYSTATIN TOPICAL POWDER 15GM BOTTLE. TP SCH ×2 (08:35→21:02)
[2016-08-21] MEDS: BUDESONIDE 0.5 MG/2 ML NEBU. NEB SCH ×2 (08:43→19:37)
[2016-08-21] MEDS: IPRATRPIUM/ALBUTEROL 0.5/2.5MG 3 ML NEBU. NEB SCH ×4 (08:43→19:37)
--- NOTE | 2016-08-21 08:49 | PDOC ---
G I PROGRESS NOTE Subjective Indicates no major complaints. Objective Tolerating tube feedings per staff. Physical Exam Lungs clear anteriorly. RRR Abdomen soft, not distended nor tender. PEG site OK. Now with rash, more prominent left flank (did not inspect right). Some at PEG bolster, but less prominent and not contiguous with other. Review of Relevant I have reviewed the following items shanta (where applicable) has been applied. Labs Laboratory Tests Test 08/20/16 06:08 08/20/16 08:00 08/20/16 21:50 08/21/16 05:30 White Blood Count 13.7x10^3/uL (4.0-11.0) 15.8x10^3/uL (4.0-11.0) Red Blood Count 2.37x10^6/uL (3.50-5.40) 3.19x10^6/uL (3.50-5.40) Hemoglobin 7.0g/dL (12.0-15.5) 9.5g/dL (12.0-15.5) Hematocrit 21.1% (36.0-47.0) 27.7% (36.0-47.0) Mean Corpuscular Volume 89fL (79-100) 87fL (79-100) Mean Corpuscular Hemoglobin 30pg (25-35) 30pg (25-35) Mean Corpuscular Hemoglobin Concent 33g/dL (31-37) 34g/dL (31-37) Red Cell Distribution Width 16.9% (11.5-14.5) 16.2% (11.5-14.5) Platelet Count 386x10^3/uL (140-400) 422x10^3/uL (140-400) Neutrophils (%) (Auto) 76% (31-73) 78% (31-73) Lymphocytes (%) (Auto) 13% (24-48) 10% (24-48) Monocytes (%) (Auto) 6% (0-9) 7% (0-9) Eosinophils (%) (Auto) 5% (0-3) 4% (0-3) Basophils (%) (Auto) 1% (0-3) 1% (0-3) Neutrophils # (Auto) 10.3x10^3uL (1.8-7.7) 12.3x10^3uL (1.8-7.7) Lymphocytes # (Auto) 1.7x10^3/uL (1.0-4.8) 1.5x10^3/uL (1.0-4.8) Monocytes # (Auto) 0.8x10^3/uL (0.0-1.1) 1.1x10^3/uL (0.0-1.1) Eosinophils # (Auto) 0.7x10^3/uL (0.0-0.7) 0.7x10^3/uL (0.0-0.7) Basophils # (Auto) 0.1x10^3/uL (0.0-0.2) 0.1x10^3/uL (0.0-0.2) Sodium Level 137mmol/L (136-145) 138mmol/L (136-145) Potassium Level 3.8mmol/L (3.5-5.1) 3.3mmol/L (3.5-5.1) Chloride Level 107mmol/L (98-107) 107mmol/L (98-107) Carbon Dioxide Level 24mmol/L (21-32) 23mmol/L (21-32) Anion Gap 6 (6-14) 8 (6-14) Blood Urea Nitrogen 18mg/dL (7-20) 16mg/dL (7-20) Creatinine 0.8mg/dL (0.6-1.0) 0.8mg/dL (0.6-1.0) Estimated GFR (Cockcroft-Gault) 78.7 78.7 Glucose Level 111mg/dL (70-99) 115mg/dL (70-99) Calcium Level 7.8mg/dL (8.5-10.1) 7.8mg/dL (8.5-10.1) Phosphorus Level 3.8mg/dL (2.6-4.7) 3.7mg/dL (2.6-4.7) Magnesium Level 1.5mg/dL (1.8-2.4) 1.5mg/dL (1.8-2.4) 2.2mg/dL (1.8-2.4) O2 Saturation 96% (92-99) Arterial Blood pH 7.44 (7.35-7.45) Arterial Blood pCO2 at Patient Temp 31mmHg (35-46) Arterial Blood pO2 at Patient Temp 84mmHg (75-108) Arterial Blood HCO3 21mmol/L (21-28) Arterial Blood Base Excess -3mmol/L (-3-3) FiO2 35 Laboratory Tests Test 08/20/16 21:50 08/21/16 05:30 Magnesium Level 1.5mg/dL (1.8-2.4) 2.2mg/dL (1.8-2.4) White Blood Count 15.8x10^3/uL (4.0-11.0) Red Blood Count 3.19x10^6/uL (3.50-5.40) Hemoglobin 9.5g/dL (12.0-15.5) Hematocrit 27.7% (36.0-47.0) Mean Corpuscular Volume 87fL (79-100) Mean Corpuscular Hemoglobin 30pg (25-35) Mean Corpuscular Hemoglobin Concent 34g/dL (31-37) Red Cell Distribution Width 16.2% (11.5-14.5) Platelet Count 422x10^3/uL (140-400) Neutrophils (%) (Auto) 78% (31-73) Lymphocytes (%) (Auto) 10% (24-48) Monocytes (%) (Auto) 7% (0-9) Eosinophils (%) (Auto) 4% (0-3) Basophils (%) (Auto) 1% (0-3) Neutrophils # (Auto) 12.3x10^3uL (1.8-7.7) Lymphocytes # (Auto) 1.5x10^3/uL (1.0-4.8) Monocytes # (Auto) 1.1x10^3/uL (0.0-1.1) Eosinophils # (Auto) 0.7x10^3/uL (0.0-0.7) Basophils # (Auto) 0.1x10^3/uL (0.0-0.2) Sodium Level 138mmol/L (136-145) Potassium Level 3.3mmol/L (3.5-5.1) Chloride Level 107mmol/L (98-107) Carbon Dioxide Level 23mmol/L (21-32) Anion Gap 8 (6-14) Blood Urea Nitrogen 16mg/dL (7-20) Creatinine 0.8mg/dL (0.6-1.0) Estimated GFR (Cockcroft-Gault) 78.7 Glucose Level 115mg/dL (70-99) Calcium Level 7.8mg/dL (8.5-10.1) Phosphorus Level 3.7mg/dL (2.6-4.7) Microbiology 08/12/16 Blood Fungal Culture - Preliminary, Resulted 08/12/16 Fungal Culture Result 1 - Preliminary, Resulted 08/08/16 AFB Specimen Processing Tissue - Final, Resulted 08/08/16 Acid Fast Bacilli Culture, Resulted Pending 08/08/16 Gram Stain - Final, Resulted 08/08/16 Fungal Culture - Preliminary, Resulted 08/08/16 Fungal Culture Result 1 - Preliminary, Resulted Medications Current Medications Amino Acids/ Glycerin/ Electrolytes (Procalamine) 1,000 ml @ 100 mls/hr Q10H IV Last administered on 08/05/16 02:40; Start 08/02/16 at 03:00; Stop at 08:50; Status DC Morphine Sulfate 2 mg 2 mg PRN Q2HR PRN IV SEVERE PAIN Last administered on 11:59; Start 08/02/16 at 02:30; Stop 08/02/16 at 13:28; Status DC Daptomycin 220 mg/ Sodium Chloride 50 ml @ 100 mls/hr Q24H IV ; Start 08/02/16 at 09:15; Stop 08/02/16 at 15:58; Status DC Cefepime HCl 1 gm/ Sodium Chloride 50 ml @ 100 mls/hr Q12HR IV Last administered on 08/04/16 08:10; Start 08/02/16 at 10:00; Stop 08/04/16 at 10:33 ; Status DC Daptomycin/Sodium Chloride (Cubicin/Iv Sodium Chloride 0.9% 50ml) 50 ml @ 100 mls/hr ONCE ONCE IV ; Start 08/02/16 at 10:00; Stop 08/02/16 at 10:29; Status Cancel Potassium Chloride 40 meq 40 meq 1X ONCE PO Last administered on 08/02/16 10: 17; Start 08/02/16 at 09:45; Stop 08/02/16 at 09:46; Status DC Daptomycin/Sodium Chloride (Cubicin/Iv Sodium Chloride 0.9% 50ml) 50 ml @ 100 mls/hr Q24H IV Last administered on 08/03/16 09:43; Start 08/02/16 at 10:15; Stop 08/03/16 at 10:29; Status DC Potassium Chloride (Klor-Con) 40 meq 1X ONCE PO Last administered on 12:57; Start 08/02/16 at 12:30; Stop 08/02/16 at 12:36; Status DC Morphine Sulfate 5 mg PRN Q2HRS PRN IV MODERATE TO SEVERE PAIN Last administered on 08/04/16 08:16; Start 08/02/16 at 13:30 Morphine Sulfate 8 mg PRN Q2HRS PRN IV MODERATE TO SEVERE PAIN Last administered on 08/04/16 14:58; Start 08/02/16 at 13:30 Acetaminophen 650 mg 650 mg PRN Q6HRS PRN PO TEMP GREATER THAN 100.4 Last administered on 08/10/16 00:18; Start 08/02/16 at 14:45 Lactated Ringer's 1,000 ml @ 50 mls/hr Q20H IV ; Start 08/05/16 at 07:00; Stop 08/05/16 at 18:13; Status DC Daptomycin/Sodium Chloride (Cubicin/Iv Sodium Chloride 0.9% 50ml) 50 ml @ 100 mls/hr Q24H IV ; Start 08/03/16 at 11:00; Status Cancel Potassium Chloride (Klor-Con) 40 meq 1X ONCE PO Last administered on 17:41; Start 08/02/16 at 17:15; Stop 08/02/16 at 17:18; Status DC Potassium Chloride (Klor-Con) 40 meq BIDWMEALS PO ; Start 08/03/16 at 08:00; Stop 08/03/16 at 11:08; Status DC Morphine Sulfate 5 mg 1X ONCE IV Last administered on 08/02/16 21:45; Start 08/02/16 at 21:30; Stop 08/02/16 at 21:33; Status DC Lorazepam (Ativan) 1 mg 1X ONCE IV Last administered on 08/02/16 21:30; Start 08/02/16 at 21:30; Stop 08/02/16 at 21:33; Status DC Acetaminophen (Acetaminophen Supp) 650 mg PRN Q6HRS PRN AL MILD PAIN / TEMP Last administered on 08/13/16 03:13; Start 08/03/16 at 01:15 Albuterol/ Ipratropium (Duoneb) 3 ml RTQID NEB Last administered on 08/21/16 08 :43; Start 08/03/16 at 08:00 Budesonide (Pulmicort) 0.5 mg RTBID NEB Last administered on 08/21/16 08:43; Start 08/03/16 at 08:00 Pantoprazole Sodium 40 mg 40 mg 1X ONCE IVP Last administered on 08/03/16 10: 06; Start 08/03/16 at 08:00; Stop 08/03/16 at 08:01; Status DC Daptomycin/Sodium Chloride (Cubicin/Iv Sodium Chloride 0.9% 50ml) 50 ml @ 100 mls/hr Q24H IV Last administered on 08/04/16 10:03; Start 08/04/16 at 10:00; Stop 08/04/16 at 10:33; Status DC Lorazepam (Ativan) 0.5 mg PRN Q6HRS PRN IV ANXIETY / AGITATION Last administered on 08/04/16 09:12; Start 08/03/16 at 11:15; Stop 08/07/16 at 11:02 ; Status DC Lorazepam (Ativan) 0.5 mg 1X ONCE IV Last administered on 08/04/16 10:00; Start 08/04/16 at 10:00; Stop 08/04/16 at 10:01; Status DC Morphine Sulfate 5 mg 1X ONCE IV Last administered on 08/04/16 10:00; Start 08/04/16 at 10:00; Stop 08/04/16 at 10:01; Status DC Lorazepam 0.5 mg 0.5 mg PRN Q4HRS PRN IV ANXIETY / AGITATION Last administered on 08/21/16 08:34; Start 08/04/16 at 10:00 Nafcillin Sodium 2 gm/Sodium Chloride 100 ml @ 200 mls/hr Q4HRS IV Last administered on 08/09/16 10:10; Start 08/04/16 at 12:00; Stop 08/09/16 at 11:49 ; Status DC Propofol (Diprivan) 100 ml @ As Directed STK-MED ONCE IV ; Start 08/04/16 at 16 :10; Stop 08/04/16 at 16:11; Status DC Succinylcholine Chloride (Anectine) 200 mg STK-MED ONCE .ROUTE ; Start 08/04/16 at 16:14; Stop 08/04/16 at 16:15; Status DC Succinylcholine Chloride 200 mg 200 mg 1X ONCE IV ; Start 08/04/16 at 16:45; Stop 08/04/16 at 16:46; Status DC Propofol (Diprivan) 100 ml @ 0 mls/hr CONT PRN IV SEE I/O RECORD Last administered on 08/17/16 10:18; Start 08/04/16 at 16:45 Lorazepam (Ativan) 0.5 mg 1X ONCE IV Last administered on 08/04/16 16:45; Start 08/04/16 at 16:45; Stop 08/04/16 at 16:46; Status DC Morphine Sulfate 5 mg 5 mg 1X ONCE IV Last administered on 08/04/16 16:44; Start 08/04/16 at 16:45; Stop 08/04/16 at 16:46; Status DC Fentanyl Citrate (Fentanyl 600 Mcg/30 ml MANAGER ROOFING) 30 ml @ 0 mls/hr CONT PRN IV PROTOCOL Last administered on 08/21/16 04:37; Start 08/04/16 at 16:45 Chlorhexidine Gluconate (Peridex) 15 ml BID MM Last administered on 08/17/16 10:18; Start 08/04/16 at 21:00; Stop 08/17/16 at 19:36; Status DC Famotidine 20 mg 20 mg BID IVP Last administered on 08/21/16 08:34; Start 08/04 at 17:00 Sodium Chloride (Iv Sodium Chloride 0.9% 1000ml Bag) 1,000 ml @ 100 mls/hr Q10H IV Last administered on 08/07/16 04:35; Start 08/05/16 at 09:00; Stop at 08:59; Status DC Succinylcholine Chloride (Anectine) 200 mg STK-MED ONCE .ROUTE ; Start 08/04/16 at 16:00; Stop 08/05/16 at 12:32; Status DC Lorazepam (Ativan) 2 mg 1X ONCE IV Last administered on 08/05/16 20:43; Start 08/05/16 at 21:00; Stop 08/05/16 at 21:01; Status DC Furosemide (Lasix) 40 mg 1X PRN PRN IV blood transfusion Last administered on 14:17; Start 08/06/16 at 08:00; Stop 08/07/16 at 07:59; Status DC Sodium Bicarbonate 50 meq 1X ONCE IV Last administered on 08/06/16 14:06; Start 08/06/16 at 12:00; Stop 08/06/16 at 12:01; Status DC Calcium Chloride 1,000 mg STK-MED ONCE IV ; Start 08/04/16 at 12:00; Stop at 15:13; Status DC Epinephrine HCl (Epinephrine Syringe) 2 mg STK-MED ONCE .ROUTE ; Start 08/04/16 at 12:00; Stop 08/06/16 at 15:13; Status DC Sodium Bicarbonate 100 meq 100 meq STK-MED ONCE .ROUTE ; Start 08/04/16 at 12:00 ; Stop 08/06/16 at 15:13; Status DC Amino Acids/ Glycerin/ Electrolytes (Procalamine) 1,000 ml @ 100 mls/hr Q10H IV Last administered on 08/08/16 12:33; Start 08/07/16 at 10:00; Stop at 09:42; Status DC Enoxaparin Sodium (Lovenox 40mg Syringe) 40 mg Q24H SQ Last administered on 13:10; Start 08/07/16 at 13:00; Stop 08/10/16 at 10:43; Status DC Vecuronium [place] (Norcuron Bolus) 10 mg STK-MED ONCE IV ; Start 08/07/16 at 13 :56; Stop 08/07/16 at 13:57; Status DC Vecuronium [place] (Norcuron Bolus) 6 mg 1X ONCE IV Last administered on 14:06; Start 08/07/16 at 14:00; Stop 08/07/16 at 14:05; Status DC Sodium Bicarbonate 50 meq 1X ONCE IV Last administered on 08/08/16 11:46; Start 08/08/16 at 11:45; Stop 08/08/16 at 11:46; Status DC Nystatin 1 james 1 james BID TP Last administered on 08/21/16 08:35; Start at 21:00 Linezolid 300 ml @ 300 mls/hr Q12HR IV Last administered on 08/14/16 20:51; Start 08/09/16 at 09:00; Stop 08/15/16 at 07:21; Status DC Sodium Chloride 1,000 ml @ 20 mls/hr Q24H IV Last administered on 08/19/16 15: 27; Start 08/09/16 at 09:45 Sodium Bicarbonate/ Dextrose 1,150 ml @ 100 mls/hr 1X ONCE IV Last administered on 08/09/16 12:25; Start 08/09/16 at 11:30; Stop 08/09/16 at 22:59 ; Status DC Piperacillin Sod/ Tazobactam Sod 1 each 1 each PRN DAILY PRN MC SEE COMMENTS; Start 08/09/16 at 12:00; Stop 08/14/16 at 07:40; Status DC Piperacillin Sod/ Tazobactam Sod/ Sodium Chloride (Zosyn/Iv Sodium Chloride 0.9 % 100ml) 100 ml @ 200 mls/hr Q6HRS IV Last administered on 08/14/16 05:58; Start 08/09/16 at 12:30; Stop 08/14/16 at 07:33; Status DC Vecuronium [place] 5 mg 5 mg PRN Q4HRS PRN IV INCREASED RESPIRATORY,NOT RELI Last administered on 08/11/16 02:56; Start 08/09/16 at 13:30 Potassium Chloride 50 ml @ 100 mls/hr Q1H IV ; Start 08/10/16 at 09:30; Stop at 10:59; Status Cancel Potassium Chloride (KCl Premix 10meq) 100 ml @ 100 mls/hr Q1H IV Last administered on 08/10/16 16:28; Start 08/10/16 at 10:30; Stop 08/10/16 at 14:29 ; Status DC Potassium Chloride 60 meq 60 meq 1X ONCE PEG Last administered on 08/10/16 11 :16; Start 08/10/16 at 11:00; Stop 08/10/16 at 11:01; Status DC Sodium Bicarbonate/ Dextrose 1,150 ml @ 100 mls/hr [id number] IV Last administered on 08/10/16 11:14; Start 08/10/16 at 11:00; Stop 08/10/16 at 22:29 ; Status DC Enoxaparin Sodium 40 mg 40 mg Q24H SQ ; Start 08/10/16 at 13:00; Stop 08/10/16 at 13:00; Status DC Micafungin Sodium/ Dextrose (Mycamine) 100 ml @ 100 mls/hr Q24H IV Last administered on 08/13/16 16:26; Start 08/11/16 at 16:00; Stop 08/14/16 at 07:33 ; Status DC Furosemide (Lasix) 40 mg 1X ONCE IVP Last administered on 08/12/16 08:38; Start 08/12/16 at 08:00; Stop 08/12/16 at 08:06; Status DC Morphine Sulfate 1 mg 1 mg PRN Q10MIN PRN IV SEVERE PAIN; Start 08/13/16 at 07: 00; Stop 08/14/16 at 06:59; Status DC Lactated Ringer's (Iv Lactated Ringers) 1,000 ml @ 0 mls/hr Q0M IV ; Start at 07:00; Stop 08/13/16 at 18:59; Status DC Lidocaine HCl 2 ml PRN 1X PRN ID PRIOR TO IV START; Start 08/13/16 at 07:00; Stop 08/14/16 at 06:59; Status DC Hydromorphone HCl (Dilaudid) 0.5 mg PRN Q10MIN PRN IV SEV PAIN, Second choice; Start 08/13/16 at 07:00; Stop 08/14/16 at 06:59; Status DC Prochlorperazine Edisylate (Compazine) 5 mg PACU PRN PRN IV NAUSEA, MRX1; Start 08/13/16 at 07:00; Stop 08/14/16 at 06:59; Status DC Morphine Sulfate 1 mg 1 mg PRN Q10MIN PRN IV SEVERE PAIN; Start 08/13/16 at 07: 00; Stop 08/14/16 at 06:59; Status DC Lactated Ringer's (Iv Lactated Ringers) 1,000 ml @ 0 mls/hr Q0M IV ; Start at 07:00; Stop 08/13/16 at 18:59; Status DC Lidocaine HCl 2 ml PRN 1X PRN ID PRIOR TO IV START; Start 08/13/16 at 07:00; Stop 08/14/16 at 06:59; Status DC Hydromorphone HCl (Dilaudid) 0.5 mg PRN Q10MIN PRN IV SEV PAIN, Second choice; Start 08/13/16 at 07:00; Stop 08/14/16 at 06:59; Status DC Prochlorperazine Edisylate 5 mg 5 mg PACU PRN PRN IV NAUSEA, MRX1; Start at 07:00; Stop 08/14/16 at 06:59; Status DC Potassium Chloride (KCl Premix 20meq) 50 ml @ 50 mls/hr Q1H IV Last administered on 08/13/16 07:57; Start 08/13/16 at 07:00; Stop 08/13/16 at 08:59 ; Status DC Rocuronium [place] 50 mg 50 mg STK-MED ONCE .ROUTE ; Start 08/13/16 at 12:50; Stop 08/13/16 at 12:51; Status DC Propofol (Diprivan) 20 ml @ As Directed STK-MED ONCE IV ; Start 08/13/16 at 12: 53; Stop 08/13/16 at 12:54; Status DC Sevoflurane 30 ml 30 ml STK-MED ONCE IH ; Start 08/13/16 at 14:04; Stop at 14:05; Status DC Albumin Human 250 ml @ 100 mls/hr 1X ONCE IV Last administered on 08/13/16 23:38; Start 08/13/16 at 18:00; Stop 08/13/16 at 20:29; Status DC Albumin Human 500 ml @ 100 mls/hr 1X ONCE IV Last administered on 08/13/16 18:15; Start 08/13/16 at 18:00; Stop 08/13/16 at 22:59; Status DC Potassium Chloride 50 ml @ 50 mls/hr Q1H IV Last administered on 08/14/16 10: 46; Start 08/14/16 at 08:00; Stop 08/14/16 at 09:59; Status DC Nafcillin Sodium/ Sodium Chloride (Iv Sodium Chloride 0.9% 100ml) 100 ml @ 200 mls/hr Q4HRS IV Last administered on 08/21/16 08:35; Start 08/14/16 at 08:00 Enoxaparin Sodium (Lovenox 40mg Syringe) 40 mg Q24H SQ Last administered on 08/20 11:34; Start 08/14/16 at 12:00 Potassium Chloride (KCl Oral Soln) 40 meq 1X ONCE PEG Last administered on 07:54; Start 08/16/16 at 07:00; Stop 08/16/16 at 07:01; Status DC Potassium Chloride 40 meq 40 meq 1X ONCE PEG Last administered on 08/16/16 14 :01; Start 08/16/16 at 12:00; Stop 08/16/16 at 12:01; Status DC Magnesium Sulfate/ Dextrose (Magnesium Sulfate PREMIX 2GM) 50 ml @ 25 mls/hr 1X ONCE IV Last administered on 08/16/16 17:14; Start 08/16/16 at 16:30; Stop 08/16/16 at 18:29; Status DC Potassium Chloride (Klor-Con) 40 meq 1X ONCE PO ; Start 08/17/16 at 13:30; Stop 08/17/16 at 13:31; Status Cancel Potassium Chloride 40 meq 40 meq 1X ONCE PO Last administered on 08/17/16 15: 34; Start 08/17/16 at 13:30; Stop 08/17/16 at 14:27; Status DC Potassium Chloride 100 ml @ 100 mls/hr PRN Q1HR PRN IV HYPOKALEMIA PER ICU PROTOCOL; Start 08/17/16 at 13:30 Potassium Chloride (KCl Premix 20meq) 50 ml @ 25 mls/hr PRN Q2HR PRN IV HYPOKALEMIA PER ICU PROTOCOL Last administered on 08/21/16 06:24; Start at 13:30 Potassium Chloride 40 meq 40 meq PRN Q2HR PRN PO HYPOKALEMIA PER ICU PROTOCOL; Start 08/17/16 at 13:30 Potassium Chloride 100 ml @ 100 mls/hr PRN Q1HR PRN IV HYPOKALEMIA PER ICU PROTOCOL; Start 08/17/16 at 13:30 Potassium Chloride (KCl Premix 20meq) 50 ml @ 25 mls/hr PRN Q2HR PRN IV HYPOKALEMIA PER ICU PROTOCOL; Start 08/17/16 at 13:30 Potassium Chloride 40 meq 40 meq PRN Q2HR PRN PO HYPOKALEMIA PER ICU PROTOCOL; Start 08/17/16 at 13:30 Potassium Chloride 100 ml @ 100 mls/hr PRN Q1HR PRN IV HYPOKALEMIA PER ICU PROTOCOL; Start 08/17/16 at 13:30 Potassium Chloride 50 ml @ 25 mls/hr PRN Q2HR PRN IV HYPOKALEMIA PER ICU PROTOCOL; Start 08/17/16 at 14:00 Magnesium Sulfate/ Dextrose (Magnesium Sulfate PREMIX 4GM) 100 ml @ 50 mls/hr PRN DAILY PRN IV HYPOMAGNESIA PER ICU PROTOCOL Last administered on 08/20/16 22 :26; Start 08/18/16 at 09:00 Potassium Phos/ Sodium Phos 1 pkt 1 pkt BID PO ; Start 08/17/16 at 21:00; Stop 08/18/16 at 09:01; Status DC Sodium Phosphate/ Dextrose 263.3333 ml @ 62.5 mls/hr PRN 1X PRN IV HYPOPHOSP PER ICU PROTOCOL; Start 08/17/16 at 13:30 Potassium Chloride (KCl Oral Soln) 40 meq 1X ONCE PEG Last administered on 08/19 07:57; Start 08/19/16 at 07:45; Stop 08/19/16 at 07:46; Status DC Potassium Chloride (KCl Oral Soln) 40 meq 1X ONCE PEG Last administered on 08/19 11:36; Start 08/19/16 at 12:00; Stop 08/19/16 at 12:01; Status DC Alprazolam (Xanax) 0.5 mg 1X ONCE PO Last administered on 08/19/16 11:35; Start 08/19/16 at 11:15; Stop 08/19/16 at 11:16; Status DC Alprazolam (Xanax) 0.5 mg TID PEG Last administered on 08/21/16 08:34; Start at 15:00 Active Scripts Active Reported No Known Medications Prior To Admisstion (Info) Each 1 Each Vitals/I & O Vital Sign - Last 24 Hours 08/20/16 08/20/16 08/20/16 08/20/16 09:00 09:03 10:00 11:00 Pulse 110 112 110 Resp 27 25 30 B/P 100/61 110/68 113/69 Pulse Ox 99 99 99 99 O2 Delivery Tracheal Collar Ventilator Ventilator Ventilator 08/20/16 08/20/16 08/20/16 08/20/16 11:08 11:33 12:00 12:00 Temp 99.3 99.3 Pulse 106 Resp 30 B/P 112/70 Pulse Ox 99 100 97 O2 Delivery Ventilator Trach Collar Ventilator 08/20/16 08/20/16 08/20/16 08/20/16 13:00 13:07 13:29 13:45 Temp 98.0 98.0 Pulse 114 112 108 Resp 28 26 30 B/P 111/70 111/70 112/73 Pulse Ox 99 99 O2 Delivery Ventilator Ventilator 08/20/16 08/20/16 08/20/16 08/20/16 14:00 14:00 15:00 15:01 Pulse 108 108 108 Resp 27 23 B/P 112/74 112/73 112/73 Pulse Ox 99 98 98 O2 Delivery BiPAP/CPAP Ventilator Ventilator 08/20/16 08/20/16 08/20/16 08/20/16 16:00 16:00 16:53 17:00 Temp 99.4 99.4 Pulse 96 108 Resp 42 29 B/P 119/85 112/75 Pulse Ox 93 98 98 O2 Delivery Ventilator Trach Collar Ventilator Ventilator 08/20/16 08/20/16 08/20/16 08/20/16 18:00 18:01 18:10 18:15 Temp 99.4 99.4 Pulse 110 109 107 Resp 31 28 30 B/P 113/71 113/71 110/72 Pulse Ox 97 98 O2 Delivery BiPAP/CPAP O2 Flow Rate 10.0 08/20/16 08/20/16 08/20/16 08/20/16 18:30 19:00 19:37 20:00 Temp 99.5 99.5 Pulse 100 101 110 Resp 30 27 30 B/P 113/71 115/76 119/76 Pulse Ox 97 98 98 O2 Delivery Ventilator Ventilator Ventilator 08/20/16 08/20/16 08/20/16 08/20/16 20:07 21:00 21:34 22:00 Pulse 111 104 Resp 32 31 B/P 118/75 129/79 Pulse Ox 97 97 97 O2 Delivery Mechanical Ventilator Ventilator Ventilator Ventilator 08/20/16 08/20/16 08/21/16 08/21/16 23:00 23:40 00:00 00:00 Temp 99.5 99.5 Pulse 117 115 Resp 20 22 B/P 120/75 126/65 Pulse Ox 96 97 95 O2 Delivery Ventilator Ventilator Ventilator Mechanical Ventilator 08/21/16 08/21/16 08/21/16 08/21/16 01:00 01:20 01:25 02:00 Pulse 115 115 Resp 30 22 B/P 118/69 108/70 Pulse Ox 95 97 100 97 O2 Delivery Ventilator Ventilator Ventilator Ventilator 08/21/16 08/21/16 08/21/16 08/21/16 03:00 03:35 04:00 04:00 Temp 99.2 99.2 Pulse 111 111 Resp 22 27 B/P 112/67 108/68 Pulse Ox 98 100 97 O2 Delivery Ventilator Ventilator Ventilator Mechanical Ventilator 08/21/16 08/21/16 08/21/16 08/21/16 04:37 05:00 05:10 05:20 Pulse 106 Resp 28 30 38 B/P 114/74 Pulse Ox 98 96 98 97 O2 Delivery Ventilator Ventilator Ventilator Ventilator 08/21/16 08/21/16 06:00 07:00 Pulse 105 106 Resp 38 26 B/P 140/93 116/79 Pulse Ox 95 95 O2 Delivery Ventilator Ventilator Intake and Output 08/20/16 08/20/16 08/21/16 15:00 23:00 07:00 Intake Total 300 ml 2273 ml 1195 ml Output Total 425 ml 660 ml 410 ml Balance -125 ml 1613 ml 785 ml Assessment Stable post-PEG and tolerating feedings. New rash--contact issue? Detergent? Soap? Plan of Care: Continue current Tx, RICHAR Kelly MD August 21, 2016 08:49
[2016-08-21 09:04] LABS: HCO3 ABG 21 mmol/L (21-28); PCO2 ABG 33 mmHg (35-46); PH ABG 7.43 (7.35-7.45); PO2 ABG 70 mmHg (75-108); SAT O2 ABG 94 % (92-99)
[2016-08-21 09:06] LABS: FIO2 ABG 35
--- NOTE | 2016-08-21 10:28 | PDOC ---
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 -Polysubstance abuse -Hep C, right -Tobacco use -20lb weight loss over the last couple of months -Renal insufficiency -Pneumonia -Anemia requiring transfusions severe malnutrition, was POA History of Present Illness History of Present Illness lying in bed, on trach w/ t-tube, some distress in resp rate, 26-30 some redness in flaquito area, Vitals Vitals Vital Signs Date Time Temp Pulse Resp B/P Pulse Ox O2 Delivery O2 Flow Rate FiO2 08/21/16 09:53 T-Tube 10.0 08/21/16 08:43 97 08/21/16 07:00 106 26 116/79 08/21/16 04:00 99.2 99.2 Physical Exam General: Alert, Cooperative, No acute distress Heart: Normal S1, Normal S2, No murmurs Lungs: Other (decrease bs) Abdomen: Normal bowel sounds, Other (Hepatosplenomegaly present) Extremities: No cyanosis, No edema Skin: No breakdown, No significant lesion Labs LABS Laboratory Tests Test 08/20/16 21:50 08/21/16 05:30 08/21/16 08:50 Magnesium Level 1.5mg/dL (1.8-2.4) 2.2mg/dL (1.8-2.4) White Blood Count 15.8x10^3/uL (4.0-11.0) Red Blood Count 3.19x10^6/uL (3.50-5.40) Hemoglobin 9.5g/dL (12.0-15.5) Hematocrit 27.7% (36.0-47.0) Mean Corpuscular Volume 87fL (79-100) Mean Corpuscular Hemoglobin 30pg (25-35) Mean Corpuscular Hemoglobin Concent 34g/dL (31-37) Red Cell Distribution Width 16.2% (11.5-14.5) Platelet Count 422x10^3/uL (140-400) Neutrophils (%) (Auto) 78% (31-73) Lymphocytes (%) (Auto) 10% (24-48) Monocytes (%) (Auto) 7% (0-9) Eosinophils (%) (Auto) 4% (0-3) Basophils (%) (Auto) 1% (0-3) Neutrophils # (Auto) 12.3x10^3uL (1.8-7.7) Lymphocytes # (Auto) 1.5x10^3/uL (1.0-4.8) Monocytes # (Auto) 1.1x10^3/uL (0.0-1.1) Eosinophils # (Auto) 0.7x10^3/uL (0.0-0.7) Basophils # (Auto) 0.1x10^3/uL (0.0-0.2) Sodium Level 138mmol/L (136-145) Potassium Level 3.3mmol/L (3.5-5.1) Chloride Level 107mmol/L (98-107) Carbon Dioxide Level 23mmol/L (21-32) Anion Gap 8 (6-14) Blood Urea Nitrogen 16mg/dL (7-20) Creatinine 0.8mg/dL (0.6-1.0) Estimated GFR (Cockcroft-Gault) 78.7 Glucose Level 115mg/dL (70-99) Calcium Level 7.8mg/dL (8.5-10.1) Phosphorus Level 3.7mg/dL (2.6-4.7) O2 Saturation 94% (92-99) Arterial Blood pH 7.43 (7.35-7.45) Arterial Blood pCO2 at Patient Temp 33mmHg (35-46) Arterial Blood pO2 at Patient Temp 70mmHg (75-108) Arterial Blood HCO3 21mmol/L (21-28) Arterial Blood Base Excess -3mmol/L (-3-3) FiO2 35 Review of Systems Review of Systems pain, dyspnea, appears anxiety Assessment and Plan Assessmemt and Plan try to keep calm while awake on working on trach trials, check alb, Problems: Comment Review of Relevant I have reviewed the following items shanta (where applicable) has been applied. Labs Laboratory Tests Test 08/20/16 06:08 08/20/16 08:00 08/20/16 21:50 08/21/16 05:30 White Blood Count 13.7x10^3/uL (4.0-11.0) 15.8x10^3/uL (4.0-11.0) Red Blood Count 2.37x10^6/uL (3.50-5.40) 3.19x10^6/uL (3.50-5.40) Hemoglobin 7.0g/dL (12.0-15.5) 9.5g/dL (12.0-15.5) Hematocrit 21.1% (36.0-47.0) 27.7% (36.0-47.0) Mean Corpuscular Volume 89fL (79-100) 87fL (79-100) Mean Corpuscular Hemoglobin 30pg (25-35) 30pg (25-35) Mean Corpuscular Hemoglobin Concent 33g/dL (31-37) 34g/dL (31-37) Red Cell Distribution Width 16.9% (11.5-14.5) 16.2% (11.5-14.5) Platelet Count 386x10^3/uL (140-400) 422x10^3/uL (140-400) Neutrophils (%) (Auto) 76% (31-73) 78% (31-73) Lymphocytes (%) (Auto) 13% (24-48) 10% (24-48) Monocytes (%) (Auto) 6% (0-9) 7% (0-9) Eosinophils (%) (Auto) 5% (0-3) 4% (0-3) Basophils (%) (Auto) 1% (0-3) 1% (0-3) Neutrophils # (Auto) 10.3x10^3uL (1.8-7.7) 12.3x10^3uL (1.8-7.7) Lymphocytes # (Auto) 1.7x10^3/uL (1.0-4.8) 1.5x10^3/uL (1.0-4.8) Monocytes # (Auto) 0.8x10^3/uL (0.0-1.1) 1.1x10^3/uL (0.0-1.1) Eosinophils # (Auto) 0.7x10^3/uL (0.0-0.7) 0.7x10^3/uL (0.0-0.7) Basophils # (Auto) 0.1x10^3/uL (0.0-0.2) 0.1x10^3/uL (0.0-0.2) Sodium Level 137mmol/L (136-145) 138mmol/L (136-145) Potassium Level 3.8mmol/L (3.5-5.1) 3.3mmol/L (3.5-5.1) Chloride Level 107mmol/L (98-107) 107mmol/L (98-107) Carbon Dioxide Level 24mmol/L (21-32) 23mmol/L (21-32) Anion Gap 6 (6-14) 8 (6-14) Blood Urea Nitrogen 18mg/dL (7-20) 16mg/dL (7-20) Creatinine 0.8mg/dL (0.6-1.0) 0.8mg/dL (0.6-1.0) Estimated GFR (Cockcroft-Gault) 78.7 78.7 Glucose Level 111mg/dL (70-99) 115mg/dL (70-99) Calcium Level 7.8mg/dL (8.5-10.1) 7.8mg/dL (8.5-10.1) Phosphorus Level 3.8mg/dL (2.6-4.7) 3.7mg/dL (2.6-4.7) Magnesium Level 1.5mg/dL (1.8-2.4) 1.5mg/dL (1.8-2.4) 2.2mg/dL (1.8-2.4) O2 Saturation 96% (92-99) Arterial Blood pH 7.44 (7.35-7.45) Arterial Blood pCO2 at Patient Temp 31mmHg (35-46) Arterial Blood pO2 at Patient Temp 84mmHg (75-108) Arterial Blood HCO3 21mmol/L (21-28) Arterial Blood Base Excess -3mmol/L (-3-3) FiO2 35 Test 08/21/16 08:50 O2 Saturation 94% (92-99) Arterial Blood pH 7.43 (7.35-7.45) Arterial Blood pCO2 at Patient Temp 33mmHg (35-46) Arterial Blood pO2 at Patient Temp 70mmHg (75-108) Arterial Blood HCO3 21mmol/L (21-28) Arterial Blood Base Excess -3mmol/L (-3-3) FiO2 35 Laboratory Tests Test 08/20/16 21:50 08/21/16 05:30 08/21/16 08:50 Magnesium Level 1.5mg/dL (1.8-2.4) 2.2mg/dL (1.8-2.4) White Blood Count 15.8x10^3/uL (4.0-11.0) Red Blood Count 3.19x10^6/uL (3.50-5.40) Hemoglobin 9.5g/dL (12.0-15.5) Hematocrit 27.7% (36.0-47.0) Mean Corpuscular Volume 87fL (79-100) Mean Corpuscular Hemoglobin 30pg (25-35) Mean Corpuscular Hemoglobin Concent 34g/dL (31-37) Red Cell Distribution Width 16.2% (11.5-14.5) Platelet Count 422x10^3/uL (140-400) Neutrophils (%) (Auto) 78% (31-73) Lymphocytes (%) (Auto) 10% (24-48) Monocytes (%) (Auto) 7% (0-9) Eosinophils (%) (Auto) 4% (0-3) Basophils (%) (Auto) 1% (0-3) Neutrophils # (Auto) 12.3x10^3uL (1.8-7.7) Lymphocytes # (Auto) 1.5x10^3/uL (1.0-4.8) Monocytes # (Auto) 1.1x10^3/uL (0.0-1.1) Eosinophils # (Auto) 0.7x10^3/uL (0.0-0.7) Basophils # (Auto) 0.1x10^3/uL (0.0-0.2) Sodium Level 138mmol/L (136-145) Potassium Level 3.3mmol/L (3.5-5.1) Chloride Level 107mmol/L (98-107) Carbon Dioxide Level 23mmol/L (21-32) Anion Gap 8 (6-14) Blood Urea Nitrogen 16mg/dL (7-20) Creatinine 0.8mg/dL (0.6-1.0) Estimated GFR (Cockcroft-Gault) 78.7 Glucose Level 115mg/dL (70-99) Calcium Level 7.8mg/dL (8.5-10.1) Phosphorus Level 3.7mg/dL (2.6-4.7) O2 Saturation 94% (92-99) Arterial Blood pH 7.43 (7.35-7.45) Arterial Blood pCO2 at Patient Temp 33mmHg (35-46) Arterial Blood pO2 at Patient Temp 70mmHg (75-108) Arterial Blood HCO3 21mmol/L (21-28) Arterial Blood Base Excess -3mmol/L (-3-3) FiO2 35 Microbiology 08/12/16 Blood Fungal Culture - Preliminary, Resulted 08/12/16 Fungal Culture Result 1 - Preliminary, Resulted 08/08/16 AFB Specimen Processing Tissue - Final, Resulted 08/08/16 Acid Fast Bacilli Culture, Resulted Pending 08/08/16 Gram Stain - Final, Resulted 08/08/16 Fungal Culture - Preliminary, Resulted 08/08/16 Fungal Culture Result 1 - Preliminary, Resulted Medications Current Medications Amino Acids/ Glycerin/ Electrolytes (Procalamine) 1,000 ml @ 100 mls/hr Q10H IV Last administered on 08/05/16 02:40; Start 08/02/16 at 03:00; Stop at 08:50; Status DC Morphine Sulfate 2 mg 2 mg PRN Q2HR PRN IV SEVERE PAIN Last administered on 11:59; Start 08/02/16 at 02:30; Stop 08/02/16 at 13:28; Status DC Daptomycin 220 mg/ Sodium Chloride 50 ml @ 100 mls/hr Q24H IV ; Start 08/02/16 at 09:15; Stop 08/02/16 at 15:58; Status DC Cefepime HCl 1 gm/ Sodium Chloride 50 ml @ 100 mls/hr Q12HR IV Last administered on 08/04/16 08:10; Start 08/02/16 at 10:00; Stop 08/04/16 at 10:33 ; Status DC Daptomycin/Sodium Chloride (Cubicin/Iv Sodium Chloride 0.9% 50ml) 50 ml @ 100 mls/hr ONCE ONCE IV ; Start 08/02/16 at 10:00; Stop 08/02/16 at 10:29; Status Cancel Potassium Chloride 40 meq 40 meq 1X ONCE PO Last administered on 08/02/16 10: 17; Start 08/02/16 at 09:45; Stop 08/02/16 at 09:46; Status DC Daptomycin/Sodium Chloride (Cubicin/Iv Sodium Chloride 0.9% 50ml) 50 ml @ 100 mls/hr Q24H IV Last administered on 08/03/16 09:43; Start 08/02/16 at 10:15; Stop 08/03/16 at 10:29; Status DC Potassium Chloride (Klor-Con) 40 meq 1X ONCE PO Last administered on 12:57; Start 08/02/16 at 12:30; Stop 08/02/16 at 12:36; Status DC Morphine Sulfate 5 mg PRN Q2HRS PRN IV MODERATE TO SEVERE PAIN Last administered on 08/04/16 08:16; Start 08/02/16 at 13:30 Morphine Sulfate 8 mg PRN Q2HRS PRN IV MODERATE TO SEVERE PAIN Last administered on 08/04/16 14:58; Start 08/02/16 at 13:30 Acetaminophen 650 mg 650 mg PRN Q6HRS PRN PO TEMP GREATER THAN 100.4 Last administered on 08/10/16 00:18; Start 08/02/16 at 14:45 Lactated Ringer's 1,000 ml @ 50 mls/hr Q20H IV ; Start 08/05/16 at 07:00; Stop 08/05/16 at 18:13; Status DC Daptomycin/Sodium Chloride (Cubicin/Iv Sodium Chloride 0.9% 50ml) 50 ml @ 100 mls/hr Q24H IV ; Start 08/03/16 at 11:00; Status Cancel Potassium Chloride (Klor-Con) 40 meq 1X ONCE PO Last administered on 17:41; Start 08/02/16 at 17:15; Stop 08/02/16 at 17:18; Status DC Potassium Chloride (Klor-Con) 40 meq BIDWMEALS PO ; Start 08/03/16 at 08:00; Stop 08/03/16 at 11:08; Status DC Morphine Sulfate 5 mg 1X ONCE IV Last administered on 08/02/16 21:45; Start 08/02/16 at 21:30; Stop 08/02/16 at 21:33; Status DC Lorazepam (Ativan) 1 mg 1X ONCE IV Last administered on 08/02/16 21:30; Start 08/02/16 at 21:30; Stop 08/02/16 at 21:33; Status DC Acetaminophen (Acetaminophen Supp) 650 mg PRN Q6HRS PRN WI MILD PAIN / TEMP Last administered on 08/13/16 03:13; Start 08/03/16 at 01:15 Albuterol/ Ipratropium (Duoneb) 3 ml RTQID NEB Last administered on 08/21/16 08 :43; Start 08/03/16 at 08:00 Budesonide (Pulmicort) 0.5 mg RTBID NEB Last administered on 08/21/16 08:43; Start 08/03/16 at 08:00 Pantoprazole Sodium 40 mg 40 mg 1X ONCE IVP Last administered on 08/03/16 10: 06; Start 08/03/16 at 08:00; Stop 08/03/16 at 08:01; Status DC Daptomycin/Sodium Chloride (Cubicin/Iv Sodium Chloride 0.9% 50ml) 50 ml @ 100 mls/hr Q24H IV Last administered on 08/04/16 10:03; Start 08/04/16 at 10:00; Stop 08/04/16 at 10:33; Status DC Lorazepam (Ativan) 0.5 mg PRN Q6HRS PRN IV ANXIETY / AGITATION Last administered on 08/04/16 09:12; Start 08/03/16 at 11:15; Stop 08/07/16 at 11:02 ; Status DC Lorazepam (Ativan) 0.5 mg 1X ONCE IV Last administered on 08/04/16 10:00; Start 08/04/16 at 10:00; Stop 08/04/16 at 10:01; Status DC Morphine Sulfate 5 mg 1X ONCE IV Last administered on 08/04/16 10:00; Start 08/04/16 at 10:00; Stop 08/04/16 at 10:01; Status DC Lorazepam 0.5 mg 0.5 mg PRN Q4HRS PRN IV ANXIETY / AGITATION Last administered on 08/21/16 08:34; Start 08/04/16 at 10:00 Nafcillin Sodium 2 gm/Sodium Chloride 100 ml @ 200 mls/hr Q4HRS IV Last administered on 08/09/16 10:10; Start 08/04/16 at 12:00; Stop 08/09/16 at 11:49 ; Status DC Propofol (Diprivan) 100 ml @ As Directed STK-MED ONCE IV ; Start 08/04/16 at 16 :10; Stop 08/04/16 at 16:11; Status DC Succinylcholine Chloride (Anectine) 200 mg STK-MED ONCE .ROUTE ; Start 08/04/16 at 16:14; Stop 08/04/16 at 16:15; Status DC Succinylcholine Chloride 200 mg 200 mg 1X ONCE IV ; Start 08/04/16 at 16:45; Stop 08/04/16 at 16:46; Status DC Propofol (Diprivan) 100 ml @ 0 mls/hr CONT PRN IV SEE I/O RECORD Last administered on 08/17/16 10:18; Start 08/04/16 at 16:45 Lorazepam (Ativan) 0.5 mg 1X ONCE IV Last administered on 08/04/16 16:45; Start 08/04/16 at 16:45; Stop 08/04/16 at 16:46; Status DC Morphine Sulfate 5 mg 5 mg 1X ONCE IV Last administered on 08/04/16 16:44; Start 08/04/16 at 16:45; Stop 08/04/16 at 16:46; Status DC Fentanyl Citrate (Fentanyl 600 Mcg/30 ml MASS SPECTROMETRY MANAGER) 30 ml @ 0 mls/hr CONT PRN IV PROTOCOL Last administered on 08/21/16 04:37; Start 08/04/16 at 16:45 Chlorhexidine Gluconate (Peridex) 15 ml BID MM Last administered on 08/17/16 10:18; Start 08/04/16 at 21:00; Stop 08/17/16 at 19:36; Status DC Famotidine 20 mg 20 mg BID IVP Last administered on 08/21/16 08:34; Start 08/04 at 17:00 Sodium Chloride (Iv Sodium Chloride 0.9% 1000ml Bag) 1,000 ml @ 100 mls/hr Q10H IV Last administered on 08/07/16 04:35; Start 08/05/16 at 09:00; Stop at 08:59; Status DC Succinylcholine Chloride (Anectine) 200 mg STK-MED ONCE .ROUTE ; Start 08/04/16 at 16:00; Stop 08/05/16 at 12:32; Status DC Lorazepam (Ativan) 2 mg 1X ONCE IV Last administered on 08/05/16 20:43; Start 08/05/16 at 21:00; Stop 08/05/16 at 21:01; Status DC Furosemide (Lasix) 40 mg 1X PRN PRN IV blood transfusion Last administered on 14:17; Start 08/06/16 at 08:00; Stop 08/07/16 at 07:59; Status DC Sodium Bicarbonate 50 meq 1X ONCE IV Last administered on 08/06/16 14:06; Start 08/06/16 at 12:00; Stop 08/06/16 at 12:01; Status DC Calcium Chloride 1,000 mg STK-MED ONCE IV ; Start 08/04/16 at 12:00; Stop at 15:13; Status DC Epinephrine HCl (Epinephrine Syringe) 2 mg STK-MED ONCE .ROUTE ; Start 08/04/16 at 12:00; Stop 08/06/16 at 15:13; Status DC Sodium Bicarbonate 100 meq 100 meq STK-MED ONCE .ROUTE ; Start 08/04/16 at 12:00 ; Stop 08/06/16 at 15:13; Status DC Amino Acids/ Glycerin/ Electrolytes (Procalamine) 1,000 ml @ 100 mls/hr Q10H IV Last administered on 08/08/16 12:33; Start 08/07/16 at 10:00; Stop at 09:42; Status DC Enoxaparin Sodium (Lovenox 40mg Syringe) 40 mg Q24H SQ Last administered on 13:10; Start 08/07/16 at 13:00; Stop 08/10/16 at 10:43; Status DC Vecuronium Eads (Norcuron Bolus) 10 mg STK-MED ONCE IV ; Start 08/07/16 at 13 :56; Stop 08/07/16 at 13:57; Status DC Vecuronium Eads (Norcuron Bolus) 6 mg 1X ONCE IV Last administered on 14:06; Start 08/07/16 at 14:00; Stop 08/07/16 at 14:05; Status DC Sodium Bicarbonate 50 meq 1X ONCE IV Last administered on 08/08/16 11:46; Start 08/08/16 at 11:45; Stop 08/08/16 at 11:46; Status DC Nystatin 1 james 1 james BID TP Last administered on 08/21/16 08:35; Start at 21:00 Linezolid 300 ml @ 300 mls/hr Q12HR IV Last administered on 08/14/16 20:51; Start 08/09/16 at 09:00; Stop 08/15/16 at 07:21; Status DC Sodium Chloride 1,000 ml @ 20 mls/hr Q24H IV Last administered on 08/19/16 15: 27; Start 08/09/16 at 09:45 Sodium Bicarbonate/ Dextrose 1,150 ml @ 100 mls/hr 1X ONCE IV Last administered on 08/09/16 12:25; Start 08/09/16 at 11:30; Stop 08/09/16 at 22:59 ; Status DC Piperacillin Sod/ Tazobactam Sod 1 each 1 each PRN DAILY PRN MC SEE COMMENTS; Start 08/09/16 at 12:00; Stop 08/14/16 at 07:40; Status DC Piperacillin Sod/ Tazobactam Sod/ Sodium Chloride (Zosyn/Iv Sodium Chloride 0.9 % 100ml) 100 ml @ 200 mls/hr Q6HRS IV Last administered on 08/14/16 05:58; Start 08/09/16 at 12:30; Stop 08/14/16 at 07:33; Status DC Vecuronium Eads 5 mg 5 mg PRN Q4HRS PRN IV INCREASED RESPIRATORY,NOT RELI Last administered on 08/11/16 02:56; Start 08/09/16 at 13:30 Potassium Chloride 50 ml @ 100 mls/hr Q1H IV ; Start 08/10/16 at 09:30; Stop at 10:59; Status Cancel Potassium Chloride (KCl Premix 10meq) 100 ml @ 100 mls/hr Q1H IV Last administered on 08/10/16 16:28; Start 08/10/16 at 10:30; Stop 08/10/16 at 14:29 ; Status DC Potassium Chloride 60 meq 60 meq 1X ONCE PEG Last administered on 08/10/16 11 :16; Start 08/10/16 at 11:00; Stop 08/10/16 at 11:01; Status DC Sodium Bicarbonate/ Dextrose 1,150 ml @ 100 mls/hr [id number] IV Last administered on 08/10/16 11:14; Start 08/10/16 at 11:00; Stop 08/10/16 at 22:29 ; Status DC Enoxaparin Sodium 40 mg 40 mg Q24H SQ ; Start 08/10/16 at 13:00; Stop 08/10/16 at 13:00; Status DC Micafungin Sodium/ Dextrose (Mycamine) 100 ml @ 100 mls/hr Q24H IV Last administered on 08/13/16 16:26; Start 08/11/16 at 16:00; Stop 08/14/16 at 07:33 ; Status DC Furosemide (Lasix) 40 mg 1X ONCE IVP Last administered on 08/12/16 08:38; Start 08/12/16 at 08:00; Stop 08/12/16 at 08:06; Status DC Morphine Sulfate 1 mg 1 mg PRN Q10MIN PRN IV SEVERE PAIN; Start 08/13/16 at 07: 00; Stop 08/14/16 at 06:59; Status DC Lactated Ringer's (Iv Lactated Ringers) 1,000 ml @ 0 mls/hr Q0M IV ; Start at 07:00; Stop 08/13/16 at 18:59; Status DC Lidocaine HCl 2 ml PRN 1X PRN ID PRIOR TO IV START; Start 08/13/16 at 07:00; Stop 08/14/16 at 06:59; Status DC Hydromorphone HCl (Dilaudid) 0.5 mg PRN Q10MIN PRN IV SEV PAIN, Second choice; Start 08/13/16 at 07:00; Stop 08/14/16 at 06:59; Status DC Prochlorperazine Edisylate (Compazine) 5 mg PACU PRN PRN IV NAUSEA, MRX1; Start 08/13/16 at 07:00; Stop 08/14/16 at 06:59; Status DC Morphine Sulfate 1 mg 1 mg PRN Q10MIN PRN IV SEVERE PAIN; Start 08/13/16 at 07: 00; Stop 08/14/16 at 06:59; Status DC Lactated Ringer's (Iv Lactated Ringers) 1,000 ml @ 0 mls/hr Q0M IV ; Start at 07:00; Stop 08/13/16 at 18:59; Status DC Lidocaine HCl 2 ml PRN 1X PRN ID PRIOR TO IV START; Start 08/13/16 at 07:00; Stop 08/14/16 at 06:59; Status DC Hydromorphone HCl (Dilaudid) 0.5 mg PRN Q10MIN PRN IV SEV PAIN, Second choice; Start 08/13/16 at 07:00; Stop 08/14/16 at 06:59; Status DC Prochlorperazine Edisylate 5 mg 5 mg PACU PRN PRN IV NAUSEA, MRX1; Start at 07:00; Stop 08/14/16 at 06:59; Status DC Potassium Chloride (KCl Premix 20meq) 50 ml @ 50 mls/hr Q1H IV Last administered on 08/13/16 07:57; Start 08/13/16 at 07:00; Stop 08/13/16 at 08:59 ; Status DC Rocuronium Eads 50 mg 50 mg STK-MED ONCE .ROUTE ; Start 08/13/16 at 12:50; Stop 08/13/16 at 12:51; Status DC Propofol (Diprivan) 20 ml @ As Directed STK-MED ONCE IV ; Start 08/13/16 at 12: 53; Stop 08/13/16 at 12:54; Status DC Sevoflurane 30 ml 30 ml STK-MED ONCE IH ; Start 08/13/16 at 14:04; Stop at 14:05; Status DC Albumin Human 250 ml @ 100 mls/hr 1X ONCE IV Last administered on 08/13/16 23:38; Start 08/13/16 at 18:00; Stop 08/13/16 at 20:29; Status DC Albumin Human 500 ml @ 100 mls/hr 1X ONCE IV Last administered on 08/13/16 18:15; Start 08/13/16 at 18:00; Stop 08/13/16 at 22:59; Status DC Potassium Chloride 50 ml @ 50 mls/hr Q1H IV Last administered on 08/14/16 10: 46; Start 08/14/16 at 08:00; Stop 08/14/16 at 09:59; Status DC Nafcillin Sodium/ Sodium Chloride (Iv Sodium Chloride 0.9% 100ml) 100 ml @ 200 mls/hr Q4HRS IV Last administered on 08/21/16 08:35; Start 08/14/16 at 08:00 Enoxaparin Sodium (Lovenox 40mg Syringe) 40 mg Q24H SQ Last administered on 08/20 11:34; Start 08/14/16 at 12:00 Potassium Chloride (KCl Oral Soln) 40 meq 1X ONCE PEG Last administered on 07:54; Start 08/16/16 at 07:00; Stop 08/16/16 at 07:01; Status DC Potassium Chloride 40 meq 40 meq 1X ONCE PEG Last administered on 08/16/16 14 :01; Start 08/16/16 at 12:00; Stop 08/16/16 at 12:01; Status DC Magnesium Sulfate/ Dextrose (Magnesium Sulfate PREMIX 2GM) 50 ml @ 25 mls/hr 1X ONCE IV Last administered on 08/16/16 17:14; Start 08/16/16 at 16:30; Stop 08/16/16 at 18:29; Status DC Potassium Chloride (Klor-Con) 40 meq 1X ONCE PO ; Start 08/17/16 at 13:30; Stop 08/17/16 at 13:31; Status Cancel Potassium Chloride 40 meq 40 meq 1X ONCE PO Last administered on 08/17/16 15: 34; Start 08/17/16 at 13:30; Stop 08/17/16 at 14:27; Status DC Potassium Chloride 100 ml @ 100 mls/hr PRN Q1HR PRN IV HYPOKALEMIA PER ICU PROTOCOL; Start 08/17/16 at 13:30 Potassium Chloride (KCl Premix 20meq) 50 ml @ 25 mls/hr PRN Q2HR PRN IV HYPOKALEMIA PER ICU PROTOCOL Last administered on 08/21/16 06:24; Start at 13:30 Potassium Chloride 40 meq 40 meq PRN Q2HR PRN PO HYPOKALEMIA PER ICU PROTOCOL; Start 08/17/16 at 13:30 Potassium Chloride 100 ml @ 100 mls/hr PRN Q1HR PRN IV HYPOKALEMIA PER ICU PROTOCOL; Start 08/17/16 at 13:30 Potassium Chloride (KCl Premix 20meq) 50 ml @ 25 mls/hr PRN Q2HR PRN IV HYPOKALEMIA PER ICU PROTOCOL; Start 08/17/16 at 13:30 Potassium Chloride 40 meq 40 meq PRN Q2HR PRN PO HYPOKALEMIA PER ICU PROTOCOL; Start 08/17/16 at 13:30 Potassium Chloride 100 ml @ 100 mls/hr PRN Q1HR PRN IV HYPOKALEMIA PER ICU PROTOCOL; Start 08/17/16 at 13:30 Potassium Chloride 50 ml @ 25 mls/hr PRN Q2HR PRN IV HYPOKALEMIA PER ICU PROTOCOL; Start 08/17/16 at 14:00 Magnesium Sulfate/ Dextrose (Magnesium Sulfate PREMIX 4GM) 100 ml @ 50 mls/hr PRN DAILY PRN IV HYPOMAGNESIA PER ICU PROTOCOL Last administered on 08/20/16 22 :26; Start 08/18/16 at 09:00 Potassium Phos/ Sodium Phos 1 pkt 1 pkt BID PO ; Start 08/17/16 at 21:00; Stop 08/18/16 at 09:01; Status DC Sodium Phosphate/ Dextrose 263.3333 ml @ 62.5 mls/hr PRN 1X PRN IV HYPOPHOSP PER ICU PROTOCOL; Start 08/17/16 at 13:30 Potassium Chloride (KCl Oral Soln) 40 meq 1X ONCE PEG Last administered on 08/19 07:57; Start 08/19/16 at 07:45; Stop 08/19/16 at 07:46; Status DC Potassium Chloride (KCl Oral Soln) 40 meq 1X ONCE PEG Last administered on 08/19 11:36; Start 08/19/16 at 12:00; Stop 08/19/16 at 12:01; Status DC Alprazolam (Xanax) 0.5 mg 1X ONCE PO Last administered on 08/19/16 11:35; Start 08/19/16 at 11:15; Stop 08/19/16 at 11:16; Status DC Alprazolam (Xanax) 0.5 mg TID PEG Last administered on 08/21/16 08:34; Start at 15:00 Active Scripts Active Reported No Known Medications Prior To Admisstion (Info) Each 1 Each Vitals/I & O Vital Sign - Last 24 Hours 08/20/16 08/20/16 08/20/16 08/20/16 11:00 11:08 11:33 12:00 Pulse 110 Resp 30 B/P 113/69 Pulse Ox 99 99 100 O2 Delivery Ventilator Ventilator Trach Collar 08/20/16 08/20/16 08/20/16 08/20/16 12:00 13:00 13:07 13:29 Temp 99.3 98.0 99.3 98.0 Pulse 106 114 112 Resp 30 28 26 B/P 112/70 111/70 111/70 Pulse Ox 97 99 99 O2 Delivery Ventilator Ventilator Ventilator 08/20/16 08/20/16 08/20/16 08/20/16 13:45 14:00 14:00 15:00 Pulse 108 108 108 108 Resp 30 27 23 B/P 112/73 112/74 112/73 112/73 Pulse Ox 99 98 O2 Delivery BiPAP/CPAP Ventilator 08/20/16 08/20/16 08/20/16 08/20/16 15:01 16:00 16:00 16:53 Temp 99.4 99.4 Pulse 96 Resp 42 B/P 119/85 Pulse Ox 98 93 98 O2 Delivery Ventilator Ventilator Trach Collar Ventilator 08/20/16 08/20/16 08/20/16 08/20/16 17:00 18:00 18:01 18:10 Temp 99.4 99.4 Pulse 108 110 109 Resp 29 31 28 B/P 112/75 113/71 113/71 Pulse Ox 98 97 98 O2 Delivery Ventilator BiPAP/CPAP O2 Flow Rate 10.0 08/20/16 08/20/16 08/20/16 08/20/16 18:15 18:30 19:00 19:37 Temp 99.5 99.5 Pulse 107 100 101 Resp 30 30 27 B/P 110/72 113/71 115/76 Pulse Ox 97 98 O2 Delivery Ventilator Ventilator 08/20/16 08/20/16 08/20/16 08/20/16 20:00 20:07 21:00 21:34 Pulse 110 111 Resp 30 32 B/P 119/76 118/75 Pulse Ox 98 97 97 O2 Delivery Ventilator Mechanical Ventilator Ventilator Ventilator 08/20/16 08/20/16 08/20/16 08/21/16 22:00 23:00 23:40 00:00 Temp 99.5 99.5 Pulse 104 117 115 Resp 31 20 22 B/P 129/79 120/75 126/65 Pulse Ox 97 96 97 95 O2 Delivery Ventilator Ventilator Ventilator Ventilator 08/21/16 08/21/16 08/21/16 08/21/16 00:00 01:00 01:20 01:25 Pulse 115 Resp 30 B/P 118/69 Pulse Ox 95 97 100 O2 Delivery Mechanical Ventilator Ventilator Ventilator Ventilator 08/21/16 08/21/16 08/21/16 08/21/16 02:00 03:00 03:35 04:00 Temp 99.2 99.2 Pulse 115 111 111 Resp 22 22 27 B/P 108/70 112/67 108/68 Pulse Ox 97 98 100 97 O2 Delivery Ventilator Ventilator Ventilator Ventilator 08/21/16 08/21/16 08/21/16 08/21/16 04:00 04:37 05:00 05:10 Pulse 106 Resp 28 30 38 B/P 114/74 Pulse Ox 98 96 98 O2 Delivery Mechanical Ventilator Ventilator Ventilator Ventilator 08/21/16 08/21/16 08/21/16 08/21/16 05:20 06:00 07:00 08:00 Pulse 105 106 Resp 38 26 B/P 140/93 116/79 Pulse Ox 97 95 95 O2 Delivery Ventilator Ventilator Ventilator Mechanical Ventilator 08/21/16 08/21/16 08:43 09:53 Pulse Ox 97 O2 Delivery Ventilator T-Tube O2 Flow Rate 10.0 Intake and Output 08/20/16 08/20/16 08/21/16 15:00 23:00 07:00 Intake Total 300 ml 2273 ml 1195 ml Output Total 425 ml 660 ml 410 ml Balance -125 ml 1613 ml 785 ml Nutrition Consultation Dietary Evaluation: Recommendations by RD: PPN/TPN Comments: Pt is s/p PEG placement 08/14 Rec. continue TF's with Isosource HN, goal rate 45 ml/hr flushes 150ml q6h Expected Outcomes/Goals: tolerate the TF's via PEG at goal rate meet 75% estimated nutrition needs Malnutrition Findings: Reduced Price Changer Strength: N/A Reduced Price Changer Strength (Non-Sev: N/A Malnutrition related to morbid: No Weight Status: Overweight Fluid Accumulation (N/A): N/A MUNA MILLER MD August 21, 2016 10:28
--- NOTE | 2016-08-21 11:14 | PDOC ---
Infectious Disease Note Subjective Subjective Remains intubated via trach ROS ROS no n/v/pain lose stool Vital Sign Vital Signs Vital Signs Date Time Temp Pulse Resp B/P Pulse Ox O2 Delivery O2 Flow Rate FiO2 08/21/16 09:53 T-Tube 10.0 08/21/16 08:43 97 08/21/16 07:00 106 26 116/79 08/21/16 04:00 99.2 99.2 Physical Exam PHYSICAL EXAM GENERAL: NAD, Alert on vent HEENT: PERRL, OC/OP NECK: Supple, no JVD, no LN LUNGS: Clear HEART: S1S2, no gallop, no murmur ABD: Soft, NT, no organomegaly, no rebound EXT: 3 + edema, no cyanosis PETROLE[employer] ANALYST: Alert, oriented x 3, moves all ext , on vent SKIN: No rash IV: ok Labs Lab Laboratory Tests Test 08/20/16 21:50 08/21/16 05:30 08/21/16 08:50 Magnesium Level 1.5mg/dL (1.8-2.4) 2.2mg/dL (1.8-2.4) White Blood Count 15.8x10^3/uL (4.0-11.0) Red Blood Count 3.19x10^6/uL (3.50-5.40) Hemoglobin 9.5g/dL (12.0-15.5) Hematocrit 27.7% (36.0-47.0) Mean Corpuscular Volume 87fL (79-100) Mean Corpuscular Hemoglobin 30pg (25-35) Mean Corpuscular Hemoglobin Concent 34g/dL (31-37) Red Cell Distribution Width 16.2% (11.5-14.5) Platelet Count 422x10^3/uL (140-400) Neutrophils (%) (Auto) 78% (31-73) Lymphocytes (%) (Auto) 10% (24-48) Monocytes (%) (Auto) 7% (0-9) Eosinophils (%) (Auto) 4% (0-3) Basophils (%) (Auto) 1% (0-3) Neutrophils # (Auto) 12.3x10^3uL (1.8-7.7) Lymphocytes # (Auto) 1.5x10^3/uL (1.0-4.8) Monocytes # (Auto) 1.1x10^3/uL (0.0-1.1) Eosinophils # (Auto) 0.7x10^3/uL (0.0-0.7) Basophils # (Auto) 0.1x10^3/uL (0.0-0.2) Sodium Level 138mmol/L (136-145) Potassium Level 3.3mmol/L (3.5-5.1) Chloride Level 107mmol/L (98-107) Carbon Dioxide Level 23mmol/L (21-32) Anion Gap 8 (6-14) Blood Urea Nitrogen 16mg/dL (7-20) Creatinine 0.8mg/dL (0.6-1.0) Estimated GFR (Cockcroft-Gault) 78.7 Glucose Level 115mg/dL (70-99) Calcium Level 7.8mg/dL (8.5-10.1) Phosphorus Level 3.7mg/dL (2.6-4.7) Albumin 1.1g/dL (3.4-5.0) O2 Saturation 94% (92-99) Arterial Blood pH 7.43 (7.35-7.45) Arterial Blood pCO2 at Patient Temp 33mmHg (35-46) Arterial Blood pO2 at Patient Temp 70mmHg (75-108) Arterial Blood HCO3 21mmol/L (21-28) Arterial Blood Base Excess -3mmol/L (-3-3) FiO2 35 Objective Assessment MSSA sepsis 08/01 ([facility]) -Repeat BC positive, 08/05 & 08/07. Neg 08/09 Right-sided bacterial endocarditis. -TTE. 3.0 x 2.0cm mobile mass TV Multiple pulmonary nodules/septic emboli Acute Resp failure - Intubated ? developing ARDS. S/p Bronch 08/08. MSSA IV drug use. Hep C Renal insufficiency. Hepatosplenomegaly on CT Tach and PEG Leukocytosis likely reactive, though need to rule out c diff Plan Plan of Care Continue Nafcillin. She will need a total of 6 weeks. Monitor WBC, temp Supportive care may benefit by albumin and diuresis MARSHA MORFIN MD August 21, 2016 11:14
[2016-08-21 11:15] LABS: HCO3 ABG 22 mmol/L (21-28); PCO2 ABG 40 mmHg (35-46); PH ABG 7.36 (7.35-7.45); PO2 ABG 62 mmHg (75-108); SAT O2 ABG 91 % (92-99)
[2016-08-21 11:18] LABS: FIO2 ABG 40 t tube
--- NOTE | 2016-08-21 12:56 | PDOC ---
PULMONARY PROGRESS NOTES Subjective did tolerated T-piece yesterday Vitals Vital Signs Date Time Temp Pulse Resp B/P Pulse Ox O2 Delivery O2 Flow Rate FiO2 08/21/16 12:30 94 Ventilator 08/21/16 09:53 10.0 08/21/16 07:00 106 26 116/79 08/21/16 04:00 99.2 99.2 General: Alert, No acute distress Lungs: Other (decrease bs) Cardiovascular: S1, S2, Other Abdomen: Soft, Non-tender Neuro Exam: Alert Extremities: Other (edema) Skin: Warm Labs Laboratory Tests Test 08/20/16 06:08 08/20/16 08:00 08/20/16 21:50 08/21/16 05:30 White Blood Count 13.7x10^3/uL (4.0-11.0) 15.8x10^3/uL (4.0-11.0) Red Blood Count 2.37x10^6/uL (3.50-5.40) 3.19x10^6/uL (3.50-5.40) Hemoglobin 7.0g/dL (12.0-15.5) 9.5g/dL (12.0-15.5) Hematocrit 21.1% (36.0-47.0) 27.7% (36.0-47.0) Mean Corpuscular Volume 89fL (79-100) 87fL (79-100) Mean Corpuscular Hemoglobin 30pg (25-35) 30pg (25-35) Mean Corpuscular Hemoglobin Concent 33g/dL (31-37) 34g/dL (31-37) Red Cell Distribution Width 16.9% (11.5-14.5) 16.2% (11.5-14.5) Platelet Count 386x10^3/uL (140-400) 422x10^3/uL (140-400) Neutrophils (%) (Auto) 76% (31-73) 78% (31-73) Lymphocytes (%) (Auto) 13% (24-48) 10% (24-48) Monocytes (%) (Auto) 6% (0-9) 7% (0-9) Eosinophils (%) (Auto) 5% (0-3) 4% (0-3) Basophils (%) (Auto) 1% (0-3) 1% (0-3) Neutrophils # (Auto) 10.3x10^3uL (1.8-7.7) 12.3x10^3uL (1.8-7.7) Lymphocytes # (Auto) 1.7x10^3/uL (1.0-4.8) 1.5x10^3/uL (1.0-4.8) Monocytes # (Auto) 0.8x10^3/uL (0.0-1.1) 1.1x10^3/uL (0.0-1.1) Eosinophils # (Auto) 0.7x10^3/uL (0.0-0.7) 0.7x10^3/uL (0.0-0.7) Basophils # (Auto) 0.1x10^3/uL (0.0-0.2) 0.1x10^3/uL (0.0-0.2) Sodium Level 137mmol/L (136-145) 138mmol/L (136-145) Potassium Level 3.8mmol/L (3.5-5.1) 3.3mmol/L (3.5-5.1) Chloride Level 107mmol/L (98-107) 107mmol/L (98-107) Carbon Dioxide Level 24mmol/L (21-32) 23mmol/L (21-32) Anion Gap 6 (6-14) 8 (6-14) Blood Urea Nitrogen 18mg/dL (7-20) 16mg/dL (7-20) Creatinine 0.8mg/dL (0.6-1.0) 0.8mg/dL (0.6-1.0) Estimated GFR (Cockcroft-Gault) 78.7 78.7 Glucose Level 111mg/dL (70-99) 115mg/dL (70-99) Calcium Level 7.8mg/dL (8.5-10.1) 7.8mg/dL (8.5-10.1) Phosphorus Level 3.8mg/dL (2.6-4.7) 3.7mg/dL (2.6-4.7) Magnesium Level 1.5mg/dL (1.8-2.4) 1.5mg/dL (1.8-2.4) 2.2mg/dL (1.8-2.4) O2 Saturation 96% (92-99) Arterial Blood pH 7.44 (7.35-7.45) Arterial Blood pCO2 at Patient Temp 31mmHg (35-46) Arterial Blood pO2 at Patient Temp 84mmHg (75-108) Arterial Blood HCO3 21mmol/L (21-28) Arterial Blood Base Excess -3mmol/L (-3-3) FiO2 35 Albumin 1.1g/dL (3.4-5.0) Test 08/21/16 08:50 08/21/16 11:10 O2 Saturation 94% (92-99) 91% (92-99) Arterial Blood pH 7.43 (7.35-7.45) 7.36 (7.35-7.45) Arterial Blood pCO2 at Patient Temp 33mmHg (35-46) 40mmHg (35-46) Arterial Blood pO2 at Patient Temp 70mmHg (75-108) 62mmHg (75-108) Arterial Blood HCO3 21mmol/L (21-28) 22mmol/L (21-28) Arterial Blood Base Excess -3mmol/L (-3-3) -3mmol/L (-3-3) FiO2 35 40 t tube Laboratory Tests Test 08/20/16 21:50 08/21/16 05:30 08/21/16 08:50 08/21/16 11:10 Magnesium Level 1.5mg/dL (1.8-2.4) 2.2mg/dL (1.8-2.4) White Blood Count 15.8x10^3/uL (4.0-11.0) Red Blood Count 3.19x10^6/uL (3.50-5.40) Hemoglobin 9.5g/dL (12.0-15.5) Hematocrit 27.7% (36.0-47.0) Mean Corpuscular Volume 87fL (79-100) Mean Corpuscular Hemoglobin 30pg (25-35) Mean Corpuscular Hemoglobin Concent 34g/dL (31-37) Red Cell Distribution Width 16.2% (11.5-14.5) Platelet Count 422x10^3/uL (140-400) Neutrophils (%) (Auto) 78% (31-73) Lymphocytes (%) (Auto) 10% (24-48) Monocytes (%) (Auto) 7% (0-9) Eosinophils (%) (Auto) 4% (0-3) Basophils (%) (Auto) 1% (0-3) Neutrophils # (Auto) 12.3x10^3uL (1.8-7.7) Lymphocytes # (Auto) 1.5x10^3/uL (1.0-4.8) Monocytes # (Auto) 1.1x10^3/uL (0.0-1.1) Eosinophils # (Auto) 0.7x10^3/uL (0.0-0.7) Basophils # (Auto) 0.1x10^3/uL (0.0-0.2) Sodium Level 138mmol/L (136-145) Potassium Level 3.3mmol/L (3.5-5.1) Chloride Level 107mmol/L (98-107) Carbon Dioxide Level 23mmol/L (21-32) Anion Gap 8 (6-14) Blood Urea Nitrogen 16mg/dL (7-20) Creatinine 0.8mg/dL (0.6-1.0) Estimated GFR (Cockcroft-Gault) 78.7 Glucose Level 115mg/dL (70-99) Calcium Level 7.8mg/dL (8.5-10.1) Phosphorus Level 3.7mg/dL (2.6-4.7) Albumin 1.1g/dL (3.4-5.0) O2 Saturation 94% (92-99) 91% (92-99) Arterial Blood pH 7.43 (7.35-7.45) 7.36 (7.35-7.45) Arterial Blood pCO2 at Patient Temp 33mmHg (35-46) 40mmHg (35-46) Arterial Blood pO2 at Patient Temp 70mmHg (75-108) 62mmHg (75-108) Arterial Blood HCO3 21mmol/L (21-28) 22mmol/L (21-28) Arterial Blood Base Excess -3mmol/L (-3-3) -3mmol/L (-3-3) FiO2 35 40 t tube Medications Active Scripts Medications Dose Route/Sig Days Date Category No Known Medications Prior To Admisstion (Info) Each 1 Each 08/06/16 Reported Impression . 1. Acute hypoxemic respiratory failure, multifactorial in etiology 2. will try T-piece again today 3. Bilateral pulmonary nodules with cavitation, due to septic emboli. 4. Endocarditis. right sided, improving vegetations 5. ? chronic obstructive pulmonary disease. 6. Leukocytosis./fever, improved 7. Anemia. 8. Thrombocytopenia. off lovenox 10. Intravenous drug abuse. 11. Tobacco habituation. 12. MSSA septicemia/pneumonia/ CHF Plan . WILL CONTINUE TO WEAN WITH PS QHS/ T-PEICE DURING DAY TOLERATED SHE SHOULD BE WEANABLE s/p trach Bronch with MSSA, antibiotics per ID, CARLEY WORKMAN MD August 21, 2016 12:55
[2016-08-21] MEDS: ENOXAPARIN 40 MG/0.4 ML SYRINGE. SQ SCH (13:33)
[2016-08-22] VITALS (14 sets, daily range): BP systolic 101–124; BP diastolic 60–85
[2016-08-22] MEDS: NAFCILLIN 2 GM in IV NORMAL SALINE 100ML 100 ML IV SCH ×6 (03:11→23:57)
[2016-08-22] MEDS: BUDESONIDE 0.5 MG/2 ML NEBU. NEB SCH ×2 (07:24→20:21)
[2016-08-22 07:30] LABS: ALBUMIN 1.1 g/dL (3.4-5.0); ALBUMIN/GLOBULIN RATIO 0.2 (1.0-1.7); CALCIUM 7.7 mg/dL (8.5-10.1); CREATININE 0.8 mg/dL (0.6-1.0); GFR 78.7; POTASSIUM 3.3 mmol/L (3.5-5.1); TOTAL BILIRUBIN 1.1 mg/dL (0.2-1.0); TOTAL PROTEIN 6.6 g/dL (6.4-8.2)
[2016-08-22] MEDS: IPRATRPIUM/ALBUTEROL 0.5/2.5MG 3 ML NEBU. NEB SCH ×4 (08:00→20:21)
[2016-08-22 08:05] LABS: BASO # 0.1 x10^3/uL (0.0-0.2); BASO % 0 % (0-3); EOS % 4 % (0-3); HEMATOCRIT 26.4 % (36.0-47.0); HEMOGLOBIN 8.7 g/dL (12.0-15.5); LYMPH # 1.5 x10^3/uL (1.0-4.8); LYMPH % 10 % (24-48); MEAN CORPUSCULAR HEMOGLOBIN 30 pg (25-35); MEAN CORPUSCULAR HGB CONC 33 g/dL (31-37); MEAN CORPUSCULAR VOLUME 89 fL (79-100); MONO % 7 % (0-9); NEUT % 80 % (31-73); PLATELET COUNT 382 x10^3/uL (140-400); RED BLOOD COUNT 2.96 x10^6/uL (3.50-5.40); RED CELL DISTRIBUTION WIDTH 16.4 % (11.5-14.5); WHITE BLOOD COUNT 15.7 x10^3/uL (4.0-11.0)
--- NOTE | 2016-08-22 08:06 | PDOC ---
G I PROGRESS NOTE Subjective No reports of any GI issues. Objective Continues to tolerate TF. Physical Exam Lungs clear. RRR Abdomen with anasarca. PEG site OK. Rash seems better. Review of Relevant I have reviewed the following items shanta (where applicable) has been applied. Labs Laboratory Tests Test 08/20/16 21:50 08/21/16 05:30 08/21/16 08:50 08/21/16 11:10 Magnesium Level 1.5 mg/dL (1.8-2.4) 2.2 mg/dL (1.8-2.4) White Blood Count 15.8 x10^3/uL (4.0-11.0) Red Blood Count 3.19 x10^6/uL (3.50-5.40) Hemoglobin 9.5 g/dL (12.0-15.5) Hematocrit 27.7 % (36.0-47.0) Mean Corpuscular Volume 87 fL (79-100) Mean Corpuscular Hemoglobin 30 pg (25-35) Mean Corpuscular Hemoglobin Concent 34 g/dL (31-37) Red Cell Distribution Width 16.2 % (11.5-14.5) Platelet Count 422 x10^3/uL (140-400) Neutrophils (%) (Auto) 78 % (31-73) Lymphocytes (%) (Auto) 10 % (24-48) Monocytes (%) (Auto) 7 % (0-9) Eosinophils (%) (Auto) 4 % (0-3) Basophils (%) (Auto) 1 % (0-3) Neutrophils # (Auto) 12.3 x10^3uL (1.8-7.7) Lymphocytes # (Auto) 1.5 x10^3/uL (1.0-4.8) Monocytes # (Auto) 1.1 x10^3/uL (0.0-1.1) Eosinophils # (Auto) 0.7 x10^3/uL (0.0-0.7) Basophils # (Auto) 0.1 x10^3/uL (0.0-0.2) Sodium Level 138 mmol/L (136-145) Potassium Level 3.3 mmol/L (3.5-5.1) Chloride Level 107 mmol/L (98-107) Carbon Dioxide Level 23 mmol/L (21-32) Anion Gap 8 (6-14) Blood Urea Nitrogen 16 mg/dL (7-20) Creatinine 0.8 mg/dL (0.6-1.0) Estimated GFR (Cockcroft-Gault) 78.7 Glucose Level 115 mg/dL (70-99) Calcium Level 7.8 mg/dL (8.5-10.1) Phosphorus Level 3.7 mg/dL (2.6-4.7) Albumin 1.1 g/dL (3.4-5.0) O2 Saturation 94 % (92-99) 91 % (92-99) Arterial Blood pH 7.43 (7.35-7.45) 7.36 (7.35-7.45) Arterial Blood pCO2 at Patient Temp 33 mmHg (35-46) 40 mmHg (35-46) Arterial Blood pO2 at Patient Temp 70 mmHg (75-108) 62 mmHg (75-108) Arterial Blood HCO3 21 mmol/L (21-28) 22 mmol/L (21-28) Arterial Blood Base Excess -3 mmol/L (-3-3) -3 mmol/L (-3-3) FiO2 35 40 t tube Test 08/22/16 05:00 Sodium Level 138 mmol/L (136-145) Potassium Level 3.3 mmol/L (3.5-5.1) Chloride Level 106 mmol/L (98-107) Carbon Dioxide Level 23 mmol/L (21-32) Anion Gap 9 (6-14) Blood Urea Nitrogen 18 mg/dL (7-20) Creatinine 0.8 mg/dL (0.6-1.0) Estimated GFR (Cockcroft-Gault) 78.7 BUN/Creatinine Ratio 23 (6-20) Glucose Level 118 mg/dL (70-99) Calcium Level 7.7 mg/dL (8.5-10.1) Total Bilirubin 1.1 mg/dL (0.2-1.0) Aspartate Amino Transf (AST/SGOT) 15 U/L (15-37) Alanine Aminotransferase (ALT/SGPT) 12 U/L (14-59) Alkaline Phosphatase 117 U/L (46-116) Total Protein 6.6 g/dL (6.4-8.2) Albumin 1.1 g/dL (3.4-5.0) Albumin/Globulin Ratio 0.2 (1.0-1.7) Laboratory Tests Test 08/21/16 08:50 08/21/16 11:10 08/22/16 05:00 O2 Saturation 94 % (92-99) 91 % (92-99) Arterial Blood pH 7.43 (7.35-7.45) 7.36 (7.35-7.45) Arterial Blood pCO2 at Patient Temp 33 mmHg (35-46) 40 mmHg (35-46) Arterial Blood pO2 at Patient Temp 70 mmHg (75-108) 62 mmHg (75-108) Arterial Blood HCO3 21 mmol/L (21-28) 22 mmol/L (21-28) Arterial Blood Base Excess -3 mmol/L (-3-3) -3 mmol/L (-3-3) FiO2 35 40 t tube Sodium Level 138 mmol/L (136-145) Potassium Level 3.3 mmol/L (3.5-5.1) Chloride Level 106 mmol/L (98-107) Carbon Dioxide Level 23 mmol/L (21-32) Anion Gap 9 (6-14) Blood Urea Nitrogen 18 mg/dL (7-20) Creatinine 0.8 mg/dL (0.6-1.0) Estimated GFR (Cockcroft-Gault) 78.7 BUN/Creatinine Ratio 23 (6-20) Glucose Level 118 mg/dL (70-99) Calcium Level 7.7 mg/dL (8.5-10.1) Total Bilirubin 1.1 mg/dL (0.2-1.0) Aspartate Amino Transf (AST/SGOT) 15 U/L (15-37) Alanine Aminotransferase (ALT/SGPT) 12 U/L (14-59) Alkaline Phosphatase 117 U/L (46-116) Total Protein 6.6 g/dL (6.4-8.2) Albumin 1.1 g/dL (3.4-5.0) Albumin/Globulin Ratio 0.2 (1.0-1.7) Microbiology 08/12/16 Blood Fungal Culture - Preliminary, Resulted 08/12/16 Fungal Culture Result 1 - Preliminary, Resulted 08/08/16 AFB Specimen Processing Tissue - Final, Resulted 08/08/16 Acid Fast Bacilli Culture, Resulted Pending 08/08/16 Gram Stain - Final, Resulted 08/08/16 Fungal Culture - Preliminary, Resulted 08/08/16 Fungal Culture Result 1 - Preliminary, Resulted Medications Current Medications Amino Acids/ Glycerin/ Electrolytes 1,000 ml @ 100 mls/hr Q10H IV Last administered on 08/05/16 02:40; Start 08/02/16 at 03:00; Stop 08/05/16 at 08:50 ; Status DC Morphine Sulfate 2 mg PRN Q2HR PRN IV SEVERE PAIN Last administered on 11:59; Start 08/02/16 at 02:30; Stop 08/02/16 at 13:28; Status DC Daptomycin 220 mg/ Sodium Chloride 50 ml @ 100 mls/hr Q24H IV ; Start 08/02/16 at 09:15; Stop 08/02/16 at 15:58; Status DC Cefepime HCl 1 gm/ Sodium Chloride 50 ml @ 100 mls/hr Q12HR IV Last administered on 08/04/16 08:10; Start 08/02/16 at 10:00; Stop 08/04/16 at 10:33 ; Status DC Daptomycin 220 mg/ Sodium Chloride 50 ml @ 100 mls/hr ONCE ONCE IV ; Start at 10:00; Stop 08/02/16 at 10:29; Status Cancel Potassium Chloride (Klor-Con) 40 meq 1X ONCE PO Last administered on 10:17; Start 08/02/16 at 09:45; Stop 08/02/16 at 09:46; Status DC Daptomycin 220 mg/ Sodium Chloride 50 ml @ 100 mls/hr Q24H IV Last administered on 08/03/16 09:43; Start 08/02/16 at 10:15; Stop 08/03/16 at 10:29 ; Status DC Potassium Chloride (Klor-Con) 40 meq 1X ONCE PO Last administered on 12:57; Start 08/02/16 at 12:30; Stop 08/02/16 at 12:36; Status DC Morphine Sulfate 5 mg PRN Q2HRS PRN IV MODERATE TO SEVERE PAIN Last administered on 08/04/16 08:16; Start 08/02/16 at 13:30 Morphine Sulfate 8 mg PRN Q2HRS PRN IV MODERATE TO SEVERE PAIN Last administered on 08/04/16 14:58; Start 08/02/16 at 13:30 Acetaminophen (Tylenol) 650 mg PRN Q6HRS PRN PO TEMP GREATER THAN 100.4 Last administered on 08/10/16 00:18; Start 08/02/16 at 14:45 Lactated Ringer's 1,000 ml @ 50 mls/hr Q20H IV ; Start 08/05/16 at 07:00; Stop 08/05/16 at 18:13; Status DC Daptomycin 220 mg/ Sodium Chloride 50 ml @ 100 mls/hr Q24H IV ; Start 08/03/16 at 11:00; Status Cancel Potassium Chloride (Klor-Con) 40 meq 1X ONCE PO Last administered on 17:41; Start 08/02/16 at 17:15; Stop 08/02/16 at 17:18; Status DC Potassium Chloride (Klor-Con) 40 meq BIDWMEALS PO ; Start 08/03/16 at 08:00; Stop 08/03/16 at 11:08; Status DC Morphine Sulfate 5 mg 1X ONCE IV Last administered on 08/02/16 21:45; Start 08/02/16 at 21:30; Stop 08/02/16 at 21:33; Status DC Lorazepam (Ativan) 1 mg 1X ONCE IV Last administered on 08/02/16 21:30; Start 08/02/16 at 21:30; Stop 08/02/16 at 21:33; Status DC Acetaminophen (Acetaminophen Supp) 650 mg PRN Q6HRS PRN TN MILD PAIN / TEMP Last administered on 08/13/16 03:13; Start 08/03/16 at 01:15 Albuterol/ Ipratropium (Duoneb) 3 ml RTQID NEB Last administered on 08/21/16 19 :37; Start 08/03/16 at 08:00 Budesonide (Pulmicort) 0.5 mg RTBID NEB Last administered on 08/22/16 07:24; Start 08/03/16 at 08:00 Pantoprazole Sodium (Protonix Vial) 40 mg 1X ONCE IVP Last administered on 10:06; Start 08/03/16 at 08:00; Stop 08/03/16 at 08:01; Status DC Daptomycin 320 mg/ Sodium Chloride 50 ml @ 100 mls/hr Q24H IV Last administered on 08/04/16 10:03; Start 08/04/16 at 10:00; Stop 08/04/16 at 10:33 ; Status DC Lorazepam (Ativan) 0.5 mg PRN Q6HRS PRN IV ANXIETY / AGITATION Last administered on 08/04/16 09:12; Start 08/03/16 at 11:15; Stop 08/07/16 at 11:02 ; Status DC Lorazepam (Ativan) 0.5 mg 1X ONCE IV Last administered on 08/04/16 10:00; Start 08/04/16 at 10:00; Stop 08/04/16 at 10:01; Status DC Morphine Sulfate 5 mg 1X ONCE IV Last administered on 08/04/16 10:00; Start 08/04/16 at 10:00; Stop 08/04/16 at 10:01; Status DC Lorazepam (Ativan) 0.5 mg PRN Q4HRS PRN IV ANXIETY / AGITATION Last administered on 08/21/16 22:33; Start 08/04/16 at 10:00 Nafcillin Sodium 2 gm/Sodium Chloride 100 ml @ 200 mls/hr Q4HRS IV Last administered on 08/09/16 10:10; Start 08/04/16 at 12:00; Stop 08/09/16 at 11:49 ; Status DC Propofol 100 ml @ As Directed STK-MED ONCE IV ; Start 08/04/16 at 16:10; Stop 08/04/16 at 16:11; Status DC Succinylcholine Chloride (Anectine) 200 mg STK-MED ONCE .ROUTE ; Start 08/04/16 at 16:14; Stop 08/04/16 at 16:15; Status DC Succinylcholine Chloride (Anectine) 200 mg 1X ONCE IV ; Start 08/04/16 at 16:45 ; Stop 08/04/16 at 16:46; Status DC Propofol 100 ml @ 0 mls/hr CONT PRN IV SEE I/O RECORD Last administered on 08/17 10:18; Start 08/04/16 at 16:45 Lorazepam (Ativan) 0.5 mg 1X ONCE IV Last administered on 08/04/16 16:45; Start 08/04/16 at 16:45; Stop 08/04/16 at 16:46; Status DC Morphine Sulfate 5 mg 1X ONCE IV Last administered on 08/04/16 16:44; Start 08/04/16 at 16:45; Stop 08/04/16 at 16:46; Status DC Fentanyl Citrate 30 ml @ 0 mls/hr CONT PRN IV PROTOCOL Last administered on 08/22 02:36; Start 08/04/16 at 16:45 Chlorhexidine Gluconate (Peridex) 15 ml BID MM Last administered on 08/17/16 10:18; Start 08/04/16 at 21:00; Stop 08/17/16 at 19:36; Status DC Famotidine (Pepcid) 20 mg BID IVP Last administered on 08/21/16 21:02; Start at 17:00 Sodium Chloride 1,000 ml @ 100 mls/hr Q10H IV Last administered on 08/07/16 04:35; Start 08/05/16 at 09:00; Stop 08/07/16 at 08:59; Status DC Succinylcholine Chloride (Anectine) 200 mg STK-MED ONCE .ROUTE ; Start 08/04/16 at 16:00; Stop 08/05/16 at 12:32; Status DC Lorazepam (Ativan) 2 mg 1X ONCE IV Last administered on 08/05/16 20:43; Start 08/05/16 at 21:00; Stop 08/05/16 at 21:01; Status DC Furosemide (Lasix) 40 mg 1X PRN PRN IV blood transfusion Last administered on 14:17; Start 08/06/16 at 08:00; Stop 08/07/16 at 07:59; Status DC Sodium Bicarbonate 50 meq 1X ONCE IV Last administered on 08/06/16 14:06; Start 08/06/16 at 12:00; Stop 08/06/16 at 12:01; Status DC Calcium Chloride 1,000 mg STK-MED ONCE IV ; Start 08/04/16 at 12:00; Stop at 15:13; Status DC Epinephrine HCl (Epinephrine Syringe) 2 mg STK-MED ONCE .ROUTE ; Start 08/04/16 at 12:00; Stop 08/06/16 at 15:13; Status DC Sodium Bicarbonate 100 meq STK-MED ONCE .ROUTE ; Start 08/04/16 at 12:00; Stop 08/06/16 at 15:13; Status DC Amino Acids/ Glycerin/ Electrolytes 1,000 ml @ 100 mls/hr Q10H IV Last administered on 08/08/16 12:33; Start 08/07/16 at 10:00; Stop 08/09/16 at 09:42 ; Status DC Enoxaparin Sodium (Lovenox 40mg Syringe) 40 mg Q24H SQ Last administered on 13:10; Start 08/07/16 at 13:00; Stop 08/10/16 at 10:43; Status DC Vecuronium [place] (Norcuron Bolus) 10 mg STK-MED ONCE IV ; Start 08/07/16 at 13 :56; Stop 08/07/16 at 13:57; Status DC Vecuronium [place] (Norcuron Bolus) 6 mg 1X ONCE IV Last administered on 14:06; Start 08/07/16 at 14:00; Stop 08/07/16 at 14:05; Status DC Sodium Bicarbonate 50 meq 1X ONCE IV Last administered on 08/08/16 11:46; Start 08/08/16 at 11:45; Stop 08/08/16 at 11:46; Status DC Nystatin (Nystop) 1 james BID TP Last administered on 08/21/16 21:02; Start 08/08 at 21:00 Linezolid 300 ml @ 300 mls/hr Q12HR IV Last administered on 08/14/16 20:51; Start 08/09/16 at 09:00; Stop 08/15/16 at 07:21; Status DC Sodium Chloride 1,000 ml @ 20 mls/hr Q24H IV Last administered on 08/21/16 13: 31; Start 08/09/16 at 09:45 Sodium Bicarbonate 150 meq/Dextrose 1,150 ml @ 100 mls/hr 1X ONCE IV Last administered on 08/09/16 12:25; Start 08/09/16 at 11:30; Stop 08/09/16 at 22:59 ; Status DC Piperacillin Sod/ Tazobactam Sod (Zosyn Per Pharmacy) 1 each PRN DAILY PRN MC SEE COMMENTS; Start 08/09/16 at 12:00; Stop 08/14/16 at 07:40; Status DC Piperacillin Sod/ Tazobactam Sod 4.5 gm/Sodium Chloride 100 ml @ 200 mls/hr Q6HRS IV Last administered on 08/14/16 05:58; Start 08/09/16 at 12:30; Stop at 07:33; Status DC Vecuronium [place] (Norcuron Bolus) 5 mg PRN Q4HRS PRN IV INCREASED RESPIRATORY ,NOT RELI Last administered on 08/11/16 02:56; Start 08/09/16 at 13:30 Potassium Chloride 50 ml @ 100 mls/hr Q1H IV ; Start 08/10/16 at 09:30; Stop at 10:59; Status Cancel Potassium Chloride 100 ml @ 100 mls/hr Q1H IV Last administered on 08/10/16 16:28; Start 08/10/16 at 10:30; Stop 08/10/16 at 14:29; Status DC Potassium Chloride (KCl Oral Soln) 60 meq 1X ONCE PEG Last administered on 11:16; Start 08/10/16 at 11:00; Stop 08/10/16 at 11:01; Status DC Sodium Bicarbonate 150 meq/Dextrose 1,150 ml @ 100 mls/hr [id number] IV Last administered on 08/10/16 11:14; Start 08/10/16 at 11:00; Stop 08/10/16 at 22:29 ; Status DC Enoxaparin Sodium (Lovenox 40mg Syringe) 40 mg Q24H SQ ; Start 08/10/16 at 13:00 ; Stop 08/10/16 at 13:00; Status DC Micafungin Sodium 100 mg/Dextrose 100 ml @ 100 mls/hr Q24H IV Last administered on 08/13/16 16:26; Start 08/11/16 at 16:00; Stop 08/14/16 at 07:33 ; Status DC Furosemide (Lasix) 40 mg 1X ONCE IVP Last administered on 08/12/16 08:38; Start 08/12/16 at 08:00; Stop 08/12/16 at 08:06; Status DC Morphine Sulfate 1 mg PRN Q10MIN PRN IV SEVERE PAIN; Start 08/13/16 at 07:00; Stop 08/14/16 at 06:59; Status DC Lactated Ringer's 1,000 ml @ 0 mls/hr Q0M IV ; Start 08/13/16 at 07:00; Stop at 18:59; Status DC Lidocaine HCl 2 ml PRN 1X PRN ID PRIOR TO IV START; Start 08/13/16 at 07:00; Stop 08/14/16 at 06:59; Status DC Hydromorphone HCl (Dilaudid) 0.5 mg PRN Q10MIN PRN IV SEV PAIN, Second choice; Start 08/13/16 at 07:00; Stop 08/14/16 at 06:59; Status DC Prochlorperazine Edisylate (Compazine) 5 mg PACU PRN PRN IV NAUSEA, MRX1; Start 08/13/16 at 07:00; Stop 08/14/16 at 06:59; Status DC Morphine Sulfate 1 mg PRN Q10MIN PRN IV SEVERE PAIN; Start 08/13/16 at 07:00; Stop 08/14/16 at 06:59; Status DC Lactated Ringer's 1,000 ml @ 0 mls/hr Q0M IV ; Start 08/13/16 at 07:00; Stop at 18:59; Status DC Lidocaine HCl 2 ml PRN 1X PRN ID PRIOR TO IV START; Start 08/13/16 at 07:00; Stop 08/14/16 at 06:59; Status DC Hydromorphone HCl (Dilaudid) 0.5 mg PRN Q10MIN PRN IV SEV PAIN, Second choice; Start 08/13/16 at 07:00; Stop 08/14/16 at 06:59; Status DC Prochlorperazine Edisylate (Compazine) 5 mg PACU PRN PRN IV NAUSEA, MRX1; Start 08/13/16 at 07:00; Stop 08/14/16 at 06:59; Status DC Potassium Chloride 50 ml @ 50 mls/hr Q1H IV Last administered on 08/13/16t 07: 57; Start 08/13/16 at 07:00; Stop 08/13/16 at 08:59; Status DC Rocuronium [place] (Zemuron) 50 mg STK-MED ONCE .ROUTE ; Start 08/13/16 at 12:50 ; Stop 08/13/16 at 12:51; Status DC Propofol 20 ml @ As Directed STK-MED ONCE IV ; Start 08/13/16 at 12:53; Stop at 12:54; Status DC Sevoflurane (Ultane) 30 ml STK-MED ONCE IH ; Start 08/13/16 at 14:04; Stop 08/13 at 14:05; Status DC Albumin Human 250 ml @ 100 mls/hr 1X ONCE IV Last administered on 08/13/16 23:38; Start 08/13/16 at 18:00; Stop 08/13/16 at 20:29; Status DC Albumin Human 500 ml @ 100 mls/hr 1X ONCE IV Last administered on 08/13/16 18:15; Start 08/13/16 at 18:00; Stop 08/13/16 at 22:59; Status DC Potassium Chloride 50 ml @ 50 mls/hr Q1H IV Last administered on 08/14/16 10: 46; Start 08/14/16 at 08:00; Stop 08/14/16 at 09:59; Status DC Nafcillin Sodium 2 gm/Sodium Chloride 100 ml @ 200 mls/hr Q4HRS IV Last administered on 08/22/16 03:11; Start 08/14/16 at 08:00 Enoxaparin Sodium (Lovenox 40mg Syringe) 40 mg Q24H SQ Last administered on 08/21 13:33; Start 08/14/16 at 12:00 Potassium Chloride (KCl Oral Soln) 40 meq 1X ONCE PEG Last administered on 07:54; Start 08/16/16 at 07:00; Stop 08/16/16 at 07:01; Status DC Potassium Chloride (KCl Oral Soln) 40 meq 1X ONCE PEG Last administered on 14:01; Start 08/16/16 at 12:00; Stop 08/16/16 at 12:01; Status DC Magnesium Sulfate/ Dextrose 50 ml @ 25 mls/hr 1X ONCE IV Last administered on 08/16/16 17:14; Start 08/16/16 at 16:30; Stop 08/16/16 at 18:29; Status DC Potassium Chloride (Klor-Con) 40 meq 1X ONCE PO ; Start 08/17/16 at 13:30; Stop 08/17/16 at 13:31; Status Cancel Potassium Chloride (KCl Oral Soln) 40 meq 1X ONCE PO Last administered on 08/17 15:34; Start 08/17/16 at 13:30; Stop 08/17/16 at 14:27; Status DC Potassium Chloride 100 ml @ 100 mls/hr PRN Q1HR PRN IV HYPOKALEMIA PER ICU PROTOCOL; Start 08/17/16 at 13:30 Potassium Chloride 50 ml @ 25 mls/hr PRN Q2HR PRN IV HYPOKALEMIA PER ICU PROTOCOL Last administered on 08/21/16 13:29; Start 08/17/16 at 13:30; Stop 08/21 at 13:34; Status DC Potassium Chloride (Klor-Con) 40 meq PRN Q2HR PRN PO HYPOKALEMIA PER ICU PROTOCOL; Start 08/17/16 at 13:30 Potassium Chloride 100 ml @ 100 mls/hr PRN Q1HR PRN IV HYPOKALEMIA PER ICU PROTOCOL; Start 08/17/16 at 13:30 Potassium Chloride 50 ml @ 25 mls/hr PRN Q2HR PRN IV HYPOKALEMIA PER ICU PROTOCOL; Start 08/17/16 at 13:30 Potassium Chloride (Klor-Con) 40 meq PRN Q2HR PRN PO HYPOKALEMIA PER ICU PROTOCOL; Start 08/17/16 at 13:30 Potassium Chloride 100 ml @ 100 mls/hr PRN Q1HR PRN IV HYPOKALEMIA PER ICU PROTOCOL; Start 08/17/16 at 13:30 Potassium Chloride 50 ml @ 25 mls/hr PRN Q2HR PRN IV HYPOKALEMIA PER ICU PROTOCOL; Start 08/17/16 at 14:00 Magnesium Sulfate/ Dextrose 100 ml @ 50 mls/hr PRN DAILY PRN IV HYPOMAGNESIA PER ICU PROTOCOL Last administered on 08/20/16 22:26; Start 08/18/16 at 09:00 Potassium Phos/ Sodium Phos (Phos-Nak) 1 pkt BID PO ; Start 08/17/16 at 21:00; Stop 08/18/16 at 09:01; Status DC Sodium Phosphate 40 mmol/Dextrose 263.3333 ml @ 62.5 mls/hr PRN 1X PRN IV HYPOPHOSP PER ICU PROTOCOL; Start 08/17/16 at 13:30 Potassium Chloride (KCl Oral Soln) 40 meq 1X ONCE PEG Last administered on 08/19 07:57; Start 08/19/16 at 07:45; Stop 08/19/16 at 07:46; Status DC Potassium Chloride (KCl Oral Soln) 40 meq 1X ONCE PEG Last administered on 08/19 11:36; Start 08/19/16 at 12:00; Stop 08/19/16 at 12:01; Status DC Alprazolam (Xanax) 0.5 mg 1X ONCE PO Last administered on 08/19/16 11:35; Start 08/19/16 at 11:15; Stop 08/19/16 at 11:16; Status DC Alprazolam (Xanax) 0.5 mg TID PEG Last administered on 08/21/16 21:01; Start at 15:00 Active Scripts Active Reported No Known Medications Prior To Admisstion (Info) Each 1 Each Vitals/I & O Vital Sign - Last 24 Hours 08/21/16 08/21/16 08/21/16 08/21/16 08:43 09:00 09:53 10:00 Pulse 105 112 Resp 33 33 B/P (MAP) 128/84 (99) 140/96 (111) Pulse Ox 97 96 96 O2 Delivery Ventilator Ventilator T-Tube Ventilator O2 Flow Rate 10.0 08/21/16 08/21/16 08/21/16 08/21/16 11:00 11:23 12:00 12:00 Temp 98.8 98.8 Pulse 79 110 Resp 34 26 B/P (MAP) 158/99 (118) 145/98 (114) Pulse Ox 95 93 O2 Delivery Ventilator Ventilator Ventilator Mechanical Ventilator 08/21/16 08/21/16 08/21/16 08/21/16 12:30 13:00 13:01 14:00 Pulse 106 120 Resp 26 26 B/P (MAP) 150/97 (114) 116/79 (91) Pulse Ox 94 95 94 96 O2 Delivery Ventilator Ventilator Ventilator Ventilator 08/21/16 08/21/16 08/21/16 08/21/16 15:00 15:15 15:38 16:00 Pulse 116 Resp 35 B/P (MAP) 138/81 (100) Pulse Ox 96 95 96 O2 Delivery Ventilator Ventilator Ventilator Mechanical Ventilator 08/21/16 08/21/16 08/21/16 08/21/16 16:00 17:00 17:26 18:00 Temp 98.8 98.8 Pulse 116 124 106 Resp 31 31 30 B/P (MAP) 143/87 (105) 129/80 (96) 128/77 (94) Pulse Ox 96 96 96 96 O2 Delivery Ventilator Ventilator Ventilator Ventilator 08/21/16 08/21/16 08/21/16 08/21/16 19:00 19:30 19:37 20:00 Temp 99.9 99.9 Pulse 115 119 Resp 22 21 B/P (MAP) 115/76 (89) 103/64 (77) Pulse Ox 100 99 100 O2 Delivery Ventilator Mechanical Ventilator Ventilator Ventilator 08/21/16 08/21/16 08/21/16 08/21/16 21:00 21:00 22:00 23:00 Pulse 117 113 123 Resp 30 26 28 B/P (MAP) 112/69 (83) 135/77 (96) 116/74 (88) Pulse Ox 100 99 96 96 O2 Delivery Ventilator Ventilator Ventilator Ventilator 08/21/16 08/21/16 08/22/16 08/22/16 23:00 23:48 00:00 01:00 Temp 98.4 98.4 Pulse 122 116 Resp 19 24 B/P (MAP) 101/67 (78) 104/60 (75) Pulse Ox 96 98 98 O2 Delivery Ventilator Mechanical Ventilator Ventilator Ventilator 08/22/16 08/22/16 08/22/16 08/22/16 02:00 02:36 03:00 03:00 Pulse 118 122 Resp 24 28 30 B/P (MAP) 111/60 (77) 118/77 (91) Pulse Ox 97 98 96 97 O2 Delivery Ventilator Ventilator Ventilator Ventilator 08/22/16 08/22/16 08/22/16 08/22/16 03:06 03:19 07:00 07:19 Pulse 119 Resp 30 29 B/P (MAP) 107/65 (79) Pulse Ox 96 98 99 O2 Delivery Ventilator Mechanical Ventilator Ventilator Ventilator 08/22/16 07:50 O2 Delivery Mechanical Ventilator Intake and Output 08/21/16 08/21/16 08/22/16 15:00 23:00 07:00 Intake Total 500 ml 1517 ml 503 ml Output Total 225 ml 790 ml 275 ml Balance 275 ml 727 ml 228 ml Assessment Stable/tolerating tube feedings. Plan of Care: Continue current Tx, Mgmt RICHAR LITTLE MD August 22, 2016 08:06
[2016-08-22] MEDS: FAMOTIDINE 20 MG/2 ML VIAL IVP SCH ×2 (08:08→20:50)
[2016-08-22] MEDS: ALPRAZolam 0.5 MG TABLET PEG SCH ×3 (08:08→20:50)
[2016-08-22] MEDS: NYSTATIN TOPICAL POWDER 15GM BOTTLE. TP SCH ×2 (08:09→20:50)
--- NOTE | 2016-08-22 08:20 | PDOC ---
Infectious Disease Note Subjective Subjective Remains intubated via trach ROS ROS no n/v/d/ Vital Sign Vital Signs Vital Signs Date Time Temp Pulse Resp B/P (MAP) Pulse Ox O2 Delivery O2 Flow Rate FiO2 08/22/16 08:00 100.4 116 29 111/75 (87) 98 Ventilator 100.4 08/21/16 09:53 10.0 Physical Exam PHYSICAL EXAM GENERAL: NAD, Alert on vent HEENT: PERRL, OC/OP NECK: Supple, no JVD, no LN LUNGS: Clear HEART: S1S2, no gallop, no murmur ABD: Soft, NT, no organomegaly, no rebound EXT: +++ edema, no cyanosis MUSICIAN INSTRUMENTAL: Alert, oriented x 3, no focal neurologic deficit, on vent SKIN: No rash IV: ok Labs Lab Laboratory Tests Test 08/21/16 08:50 08/21/16 11:10 08/22/16 05:00 08/22/16 05:55 O2 Saturation 94 % (92-99) 91 % (92-99) Arterial Blood pH 7.43 (7.35-7.45) 7.36 (7.35-7.45) Arterial Blood pCO2 at Patient Temp 33 mmHg (35-46) 40 mmHg (35-46) Arterial Blood pO2 at Patient Temp 70 mmHg (75-108) 62 mmHg (75-108) Arterial Blood HCO3 21 mmol/L (21-28) 22 mmol/L (21-28) Arterial Blood Base Excess -3 mmol/L (-3-3) -3 mmol/L (-3-3) FiO2 35 40 t tube Sodium Level 138 mmol/L (136-145) Potassium Level 3.3 mmol/L (3.5-5.1) Chloride Level 106 mmol/L (98-107) Carbon Dioxide Level 23 mmol/L (21-32) Anion Gap 9 (6-14) Blood Urea Nitrogen 18 mg/dL (7-20) Creatinine 0.8 mg/dL (0.6-1.0) Estimated GFR (Cockcroft-Gault) 78.7 BUN/Creatinine Ratio 23 (6-20) Glucose Level 118 mg/dL (70-99) Calcium Level 7.7 mg/dL (8.5-10.1) Total Bilirubin 1.1 mg/dL (0.2-1.0) Aspartate Amino Transf (AST/SGOT) 15 U/L (15-37) Alanine Aminotransferase (ALT/SGPT) 12 U/L (14-59) Alkaline Phosphatase 117 U/L (46-116) Total Protein 6.6 g/dL (6.4-8.2) Albumin 1.1 g/dL (3.4-5.0) Albumin/Globulin Ratio 0.2 (1.0-1.7) White Blood Count 15.7 x10^3/uL (4.0-11.0) Red Blood Count 2.96 x10^6/uL (3.50-5.40) Hemoglobin 8.7 g/dL (12.0-15.5) Hematocrit 26.4 % (36.0-47.0) Mean Corpuscular Volume 89 fL (79-100) Mean Corpuscular Hemoglobin 30 pg (25-35) Mean Corpuscular Hemoglobin Concent 33 g/dL (31-37) Red Cell Distribution Width 16.4 % (11.5-14.5) Platelet Count 382 x10^3/uL (140-400) Neutrophils (%) (Auto) 80 % (31-73) Lymphocytes (%) (Auto) 10 % (24-48) Monocytes (%) (Auto) 7 % (0-9) Eosinophils (%) (Auto) 4 % (0-3) Basophils (%) (Auto) 0 % (0-3) Neutrophils # (Auto) 12.4 x10^3uL (1.8-7.7) Lymphocytes # (Auto) 1.5 x10^3/uL (1.0-4.8) Monocytes # (Auto) 1.1 x10^3/uL (0.0-1.1) Eosinophils # (Auto) 0.6 x10^3/uL (0.0-0.7) Basophils # (Auto) 0.1 x10^3/uL (0.0-0.2) Objective Assessment MSSA sepsis 08/01 ([facility]) -Repeat BC positive, 08/05 & 08/07. Neg 08/09 Right-sided bacterial endocarditis. -TTE. 3.0 x 2.0cm mobile mass TV Multiple pulmonary nodules/septic emboli Acute Resp failure - Intubated ? developing ARDS. S/p Bronch 08/08. MSSA IV drug use. Hep C Renal insufficiency. Hepatosplenomegaly on CT Tach and PEG Leukocytosis likely reactive, Plan Plan of Care Continue Nafcillin. She will need a total of 6 weeks. Monitor WBC, temp Supportive care may benefit by albumin and diuresis MARSHA MORFIN MD August 22, 2016 08:20
[2016-08-22] MEDS: POTASSIUM CHLORIDE 20MEQ 50 ML IV SCH ×2 (09:07→09:40)
[2016-08-22] MEDS ORDERED: HALOPERIDOL LACTATE 5 MG/ML VIAL. IVP ONE (09:15)
--- NOTE | 2016-08-22 09:37 | PDOC ---
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, IV drug use -Resp failure on Vent -Polysubstance abuse -Hep C, right -Tobacco use -20lb weight loss over the last couple of months -Renal insufficiency -Pneumonia -Anemia requiring transfusions severe malnutrition, was POA History of Present Illness History of Present Illness lying in bed, on trach w/ t-tube, some distress in resp rate, 26-30 some redness in flaquito area, Vitals Vitals Vital Signs Date Time Temp Pulse Resp B/P (MAP) Pulse Ox O2 Delivery O2 Flow Rate FiO2 08/22/16 09:00 115 29 111/75 (87) 94 T-Tube 08/22/16 08:28 10.0 08/22/16 08:00 100.4 100.4 Physical Exam General: Alert, Cooperative, No acute distress Heart: Normal S1, Normal S2, No murmurs Lungs: Other (decrease bs) Abdomen: Normal bowel sounds, Other (Hepatosplenomegaly present) Extremities: No cyanosis, No edema Skin: No breakdown, No significant lesion Labs LABS Laboratory Tests Test 08/21/16 11:10 08/22/16 05:00 08/22/16 05:55 O2 Saturation 91 % (92-99) Arterial Blood pH 7.36 (7.35-7.45) Arterial Blood pCO2 at Patient Temp 40 mmHg (35-46) Arterial Blood pO2 at Patient Temp 62 mmHg (75-108) Arterial Blood HCO3 22 mmol/L (21-28) Arterial Blood Base Excess -3 mmol/L (-3-3) FiO2 40 t tube Sodium Level 138 mmol/L (136-145) Potassium Level 3.3 mmol/L (3.5-5.1) Chloride Level 106 mmol/L (98-107) Carbon Dioxide Level 23 mmol/L (21-32) Anion Gap 9 (6-14) Blood Urea Nitrogen 18 mg/dL (7-20) Creatinine 0.8 mg/dL (0.6-1.0) Estimated GFR (Cockcroft-Gault) 78.7 BUN/Creatinine Ratio 23 (6-20) Glucose Level 118 mg/dL (70-99) Calcium Level 7.7 mg/dL (8.5-10.1) Total Bilirubin 1.1 mg/dL (0.2-1.0) Aspartate Amino Transf (AST/SGOT) 15 U/L (15-37) Alanine Aminotransferase (ALT/SGPT) 12 U/L (14-59) Alkaline Phosphatase 117 U/L (46-116) Total Protein 6.6 g/dL (6.4-8.2) Albumin 1.1 g/dL (3.4-5.0) Albumin/Globulin Ratio 0.2 (1.0-1.7) White Blood Count 15.7 x10^3/uL (4.0-11.0) Red Blood Count 2.96 x10^6/uL (3.50-5.40) Hemoglobin 8.7 g/dL (12.0-15.5) Hematocrit 26.4 % (36.0-47.0) Mean Corpuscular Volume 89 fL (79-100) Mean Corpuscular Hemoglobin 30 pg (25-35) Mean Corpuscular Hemoglobin Concent 33 g/dL (31-37) Red Cell Distribution Width 16.4 % (11.5-14.5) Platelet Count 382 x10^3/uL (140-400) Neutrophils (%) (Auto) 80 % (31-73) Lymphocytes (%) (Auto) 10 % (24-48) Monocytes (%) (Auto) 7 % (0-9) Eosinophils (%) (Auto) 4 % (0-3) Basophils (%) (Auto) 0 % (0-3) Neutrophils # (Auto) 12.4 x10^3uL (1.8-7.7) Lymphocytes # (Auto) 1.5 x10^3/uL (1.0-4.8) Monocytes # (Auto) 1.1 x10^3/uL (0.0-1.1) Eosinophils # (Auto) 0.6 x10^3/uL (0.0-0.7) Basophils # (Auto) 0.1 x10^3/uL (0.0-0.2) Review of Systems Review of Systems agitation, confusion, Assessment and Plan Assessmemt and Plan try haldol, may help orient Problems: Comment Review of Relevant I have reviewed the following items shanta (where applicable) has been applied. Labs Laboratory Tests Test 08/20/16 21:50 08/21/16 05:30 08/21/16 08:50 08/21/16 11:10 Magnesium Level 1.5 mg/dL (1.8-2.4) 2.2 mg/dL (1.8-2.4) White Blood Count 15.8 x10^3/uL (4.0-11.0) Red Blood Count 3.19 x10^6/uL (3.50-5.40) Hemoglobin 9.5 g/dL (12.0-15.5) Hematocrit 27.7 % (36.0-47.0) Mean Corpuscular Volume 87 fL (79-100) Mean Corpuscular Hemoglobin 30 pg (25-35) Mean Corpuscular Hemoglobin Concent 34 g/dL (31-37) Red Cell Distribution Width 16.2 % (11.5-14.5) Platelet Count 422 x10^3/uL (140-400) Neutrophils (%) (Auto) 78 % (31-73) Lymphocytes (%) (Auto) 10 % (24-48) Monocytes (%) (Auto) 7 % (0-9) Eosinophils (%) (Auto) 4 % (0-3) Basophils (%) (Auto) 1 % (0-3) Neutrophils # (Auto) 12.3 x10^3uL (1.8-7.7) Lymphocytes # (Auto) 1.5 x10^3/uL (1.0-4.8) Monocytes # (Auto) 1.1 x10^3/uL (0.0-1.1) Eosinophils # (Auto) 0.7 x10^3/uL (0.0-0.7) Basophils # (Auto) 0.1 x10^3/uL (0.0-0.2) Sodium Level 138 mmol/L (136-145) Potassium Level 3.3 mmol/L (3.5-5.1) Chloride Level 107 mmol/L (98-107) Carbon Dioxide Level 23 mmol/L (21-32) Anion Gap 8 (6-14) Blood Urea Nitrogen 16 mg/dL (7-20) Creatinine 0.8 mg/dL (0.6-1.0) Estimated GFR (Cockcroft-Gault) 78.7 Glucose Level 115 mg/dL (70-99) Calcium Level 7.8 mg/dL (8.5-10.1) Phosphorus Level 3.7 mg/dL (2.6-4.7) Albumin 1.1 g/dL (3.4-5.0) O2 Saturation 94 % (92-99) 91 % (92-99) Arterial Blood pH 7.43 (7.35-7.45) 7.36 (7.35-7.45) Arterial Blood pCO2 at Patient Temp 33 mmHg (35-46) 40 mmHg (35-46) Arterial Blood pO2 at Patient Temp 70 mmHg (75-108) 62 mmHg (75-108) Arterial Blood HCO3 21 mmol/L (21-28) 22 mmol/L (21-28) Arterial Blood Base Excess -3 mmol/L (-3-3) -3 mmol/L (-3-3) FiO2 35 40 t tube Test 08/22/16 05:00 08/22/16 05:55 Sodium Level 138 mmol/L (136-145) Potassium Level 3.3 mmol/L (3.5-5.1) Chloride Level 106 mmol/L (98-107) Carbon Dioxide Level 23 mmol/L (21-32) Anion Gap 9 (6-14) Blood Urea Nitrogen 18 mg/dL (7-20) Creatinine 0.8 mg/dL (0.6-1.0) Estimated GFR (Cockcroft-Gault) 78.7 BUN/Creatinine Ratio 23 (6-20) Glucose Level 118 mg/dL (70-99) Calcium Level 7.7 mg/dL (8.5-10.1) Total Bilirubin 1.1 mg/dL (0.2-1.0) Aspartate Amino Transf (AST/SGOT) 15 U/L (15-37) Alanine Aminotransferase (ALT/SGPT) 12 U/L (14-59) Alkaline Phosphatase 117 U/L (46-116) Total Protein 6.6 g/dL (6.4-8.2) Albumin 1.1 g/dL (3.4-5.0) Albumin/Globulin Ratio 0.2 (1.0-1.7) White Blood Count 15.7 x10^3/uL (4.0-11.0) Red Blood Count 2.96 x10^6/uL (3.50-5.40) Hemoglobin 8.7 g/dL (12.0-15.5) Hematocrit 26.4 % (36.0-47.0) Mean Corpuscular Volume 89 fL (79-100) Mean Corpuscular Hemoglobin 30 pg (25-35) Mean Corpuscular Hemoglobin Concent 33 g/dL (31-37) Red Cell Distribution Width 16.4 % (11.5-14.5) Platelet Count 382 x10^3/uL (140-400) Neutrophils (%) (Auto) 80 % (31-73) Lymphocytes (%) (Auto) 10 % (24-48) Monocytes (%) (Auto) 7 % (0-9) Eosinophils (%) (Auto) 4 % (0-3) Basophils (%) (Auto) 0 % (0-3) Neutrophils # (Auto) 12.4 x10^3uL (1.8-7.7) Lymphocytes # (Auto) 1.5 x10^3/uL (1.0-4.8) Monocytes # (Auto) 1.1 x10^3/uL (0.0-1.1) Eosinophils # (Auto) 0.6 x10^3/uL (0.0-0.7) Basophils # (Auto) 0.1 x10^3/uL (0.0-0.2) Laboratory Tests Test 08/21/16 11:10 08/22/16 05:00 08/22/16 05:55 O2 Saturation 91 % (92-99) Arterial Blood pH 7.36 (7.35-7.45) Arterial Blood pCO2 at Patient Temp 40 mmHg (35-46) Arterial Blood pO2 at Patient Temp 62 mmHg (75-108) Arterial Blood HCO3 22 mmol/L (21-28) Arterial Blood Base Excess -3 mmol/L (-3-3) FiO2 40 t tube Sodium Level 138 mmol/L (136-145) Potassium Level 3.3 mmol/L (3.5-5.1) Chloride Level 106 mmol/L (98-107) Carbon Dioxide Level 23 mmol/L (21-32) Anion Gap 9 (6-14) Blood Urea Nitrogen 18 mg/dL (7-20) Creatinine 0.8 mg/dL (0.6-1.0) Estimated GFR (Cockcroft-Gault) 78.7 BUN/Creatinine Ratio 23 (6-20) Glucose Level 118 mg/dL (70-99) Calcium Level 7.7 mg/dL (8.5-10.1) Total Bilirubin 1.1 mg/dL (0.2-1.0) Aspartate Amino Transf (AST/SGOT) 15 U/L (15-37) Alanine Aminotransferase (ALT/SGPT) 12 U/L (14-59) Alkaline Phosphatase 117 U/L (46-116) Total Protein 6.6 g/dL (6.4-8.2) Albumin 1.1 g/dL (3.4-5.0) Albumin/Globulin Ratio 0.2 (1.0-1.7) White Blood Count 15.7 x10^3/uL (4.0-11.0) Red Blood Count 2.96 x10^6/uL (3.50-5.40) Hemoglobin 8.7 g/dL (12.0-15.5) Hematocrit 26.4 % (36.0-47.0) Mean Corpuscular Volume 89 fL (79-100) Mean Corpuscular Hemoglobin 30 pg (25-35) Mean Corpuscular Hemoglobin Concent 33 g/dL (31-37) Red Cell Distribution Width 16.4 % (11.5-14.5) Platelet Count 382 x10^3/uL (140-400) Neutrophils (%) (Auto) 80 % (31-73) Lymphocytes (%) (Auto) 10 % (24-48) Monocytes (%) (Auto) 7 % (0-9) Eosinophils (%) (Auto) 4 % (0-3) Basophils (%) (Auto) 0 % (0-3) Neutrophils # (Auto) 12.4 x10^3uL (1.8-7.7) Lymphocytes # (Auto) 1.5 x10^3/uL (1.0-4.8) Monocytes # (Auto) 1.1 x10^3/uL (0.0-1.1) Eosinophils # (Auto) 0.6 x10^3/uL (0.0-0.7) Basophils # (Auto) 0.1 x10^3/uL (0.0-0.2) Microbiology 08/12/16 Blood Fungal Culture - Preliminary, Resulted 08/12/16 Fungal Culture Result 1 - Preliminary, Resulted 08/08/16 AFB Specimen Processing Tissue - Final, Resulted 08/08/16 Acid Fast Bacilli Culture, Resulted Pending 08/08/16 Gram Stain - Final, Resulted 08/08/16 Fungal Culture - Preliminary, Resulted 08/08/16 Fungal Culture Result 1 - Preliminary, Resulted Medications Current Medications Amino Acids/ Glycerin/ Electrolytes 1,000 ml @ 100 mls/hr Q10H IV Last administered on 08/05/16 02:40; Start 08/02/16 at 03:00; Stop 08/05/16 at 08:50 ; Status DC Morphine Sulfate 2 mg PRN Q2HR PRN IV SEVERE PAIN Last administered on 11:59; Start 08/02/16 at 02:30; Stop 08/02/16 at 13:28; Status DC Daptomycin 220 mg/ Sodium Chloride 50 ml @ 100 mls/hr Q24H IV ; Start 08/02/16 at 09:15; Stop 08/02/16 at 15:58; Status DC Cefepime HCl 1 gm/ Sodium Chloride 50 ml @ 100 mls/hr Q12HR IV Last administered on 08/04/16 08:10; Start 08/02/16 at 10:00; Stop 08/04/16 at 10:33 ; Status DC Daptomycin 220 mg/ Sodium Chloride 50 ml @ 100 mls/hr ONCE ONCE IV ; Start at 10:00; Stop 08/02/16 at 10:29; Status Cancel Potassium Chloride (Klor-Con) 40 meq 1X ONCE PO Last administered on 10:17; Start 08/02/16 at 09:45; Stop 08/02/16 at 09:46; Status DC Daptomycin 220 mg/ Sodium Chloride 50 ml @ 100 mls/hr Q24H IV Last administered on 08/03/16 09:43; Start 08/02/16 at 10:15; Stop 08/03/16 at 10:29 ; Status DC Potassium Chloride (Klor-Con) 40 meq 1X ONCE PO Last administered on 12:57; Start 08/02/16 at 12:30; Stop 08/02/16 at 12:36; Status DC Morphine Sulfate 5 mg PRN Q2HRS PRN IV MODERATE TO SEVERE PAIN Last administered on 08/04/16 08:16; Start 08/02/16 at 13:30 Morphine Sulfate 8 mg PRN Q2HRS PRN IV MODERATE TO SEVERE PAIN Last administered on 08/04/16 14:58; Start 08/02/16 at 13:30 Acetaminophen (Tylenol) 650 mg PRN Q6HRS PRN PO TEMP GREATER THAN 100.4 Last administered on 08/10/16 00:18; Start 08/02/16 at 14:45 Lactated Ringer's 1,000 ml @ 50 mls/hr Q20H IV ; Start 08/05/16 at 07:00; Stop 08/05/16 at 18:13; Status DC Daptomycin 220 mg/ Sodium Chloride 50 ml @ 100 mls/hr Q24H IV ; Start 08/03/16 at 11:00; Status Cancel Potassium Chloride (Klor-Con) 40 meq 1X ONCE PO Last administered on 17:41; Start 08/02/16 at 17:15; Stop 08/02/16 at 17:18; Status DC Potassium Chloride (Klor-Con) 40 meq BIDWMEALS PO ; Start 08/03/16 at 08:00; Stop 08/03/16 at 11:08; Status DC Morphine Sulfate 5 mg 1X ONCE IV Last administered on 08/02/16 21:45; Start 08/02/16 at 21:30; Stop 08/02/16 at 21:33; Status DC Lorazepam (Ativan) 1 mg 1X ONCE IV Last administered on 08/02/16 21:30; Start 08/02/16 at 21:30; Stop 08/02/16 at 21:33; Status DC Acetaminophen (Acetaminophen Supp) 650 mg PRN Q6HRS PRN VT MILD PAIN / TEMP Last administered on 08/13/16 03:13; Start 08/03/16 at 01:15 Albuterol/ Ipratropium (Duoneb) 3 ml RTQID NEB Last administered on 08/21/16 19 :37; Start 08/03/16 at 08:00 Budesonide (Pulmicort) 0.5 mg RTBID NEB Last administered on 08/22/16 07:24; Start 08/03/16 at 08:00 Pantoprazole Sodium (Protonix Vial) 40 mg 1X ONCE IVP Last administered on 10:06; Start 08/03/16 at 08:00; Stop 08/03/16 at 08:01; Status DC Daptomycin 320 mg/ Sodium Chloride 50 ml @ 100 mls/hr Q24H IV Last administered on 08/04/16 10:03; Start 08/04/16 at 10:00; Stop 08/04/16 at 10:33 ; Status DC Lorazepam (Ativan) 0.5 mg PRN Q6HRS PRN IV ANXIETY / AGITATION Last administered on 08/04/16 09:12; Start 08/03/16 at 11:15; Stop 08/07/16 at 11:02 ; Status DC Lorazepam (Ativan) 0.5 mg 1X ONCE IV Last administered on 08/04/16 10:00; Start 08/04/16 at 10:00; Stop 08/04/16 at 10:01; Status DC Morphine Sulfate 5 mg 1X ONCE IV Last administered on 08/04/16 10:00; Start 08/04/16 at 10:00; Stop 08/04/16 at 10:01; Status DC Lorazepam (Ativan) 0.5 mg PRN Q4HRS PRN IV ANXIETY / AGITATION Last administered on 08/21/16 22:33; Start 08/04/16 at 10:00 Nafcillin Sodium 2 gm/Sodium Chloride 100 ml @ 200 mls/hr Q4HRS IV Last administered on 08/09/16 10:10; Start 08/04/16 at 12:00; Stop 08/09/16 at 11:49 ; Status DC Propofol 100 ml @ As Directed STK-MED ONCE IV ; Start 08/04/16 at 16:10; Stop 08/04/16 at 16:11; Status DC Succinylcholine Chloride (Anectine) 200 mg STK-MED ONCE .ROUTE ; Start 08/04/16 at 16:14; Stop 08/04/16 at 16:15; Status DC Succinylcholine Chloride (Anectine) 200 mg 1X ONCE IV ; Start 08/04/16 at 16:45 ; Stop 08/04/16 at 16:46; Status DC Propofol 100 ml @ 0 mls/hr CONT PRN IV SEE I/O RECORD Last administered on 08/17 10:18; Start 08/04/16 at 16:45 Lorazepam (Ativan) 0.5 mg 1X ONCE IV Last administered on 08/04/16 16:45; Start 08/04/16 at 16:45; Stop 08/04/16 at 16:46; Status DC Morphine Sulfate 5 mg 1X ONCE IV Last administered on 08/04/16 16:44; Start 08/04/16 at 16:45; Stop 08/04/16 at 16:46; Status DC Fentanyl Citrate 30 ml @ 0 mls/hr CONT PRN IV PROTOCOL Last administered on 08/22 02:36; Start 08/04/16 at 16:45 Chlorhexidine Gluconate (Peridex) 15 ml BID MM Last administered on 08/17/16 10:18; Start 08/04/16 at 21:00; Stop 08/17/16 at 19:36; Status DC Famotidine (Pepcid) 20 mg BID IVP Last administered on 08/22/16 08:08; Start at 17:00 Sodium Chloride 1,000 ml @ 100 mls/hr Q10H IV Last administered on 08/07/16 04:35; Start 08/05/16 at 09:00; Stop 08/07/16 at 08:59; Status DC Succinylcholine Chloride (Anectine) 200 mg STK-MED ONCE .ROUTE ; Start 08/04/16 at 16:00; Stop 08/05/16 at 12:32; Status DC Lorazepam (Ativan) 2 mg 1X ONCE IV Last administered on 08/05/16 20:43; Start 08/05/16 at 21:00; Stop 08/05/16 at 21:01; Status DC Furosemide (Lasix) 40 mg 1X PRN PRN IV blood transfusion Last administered on 14:17; Start 08/06/16 at 08:00; Stop 08/07/16 at 07:59; Status DC Sodium Bicarbonate 50 meq 1X ONCE IV Last administered on 08/06/16 14:06; Start 08/06/16 at 12:00; Stop 08/06/16 at 12:01; Status DC Calcium Chloride 1,000 mg STK-MED ONCE IV ; Start 08/04/16 at 12:00; Stop at 15:13; Status DC Epinephrine HCl (Epinephrine Syringe) 2 mg STK-MED ONCE .ROUTE ; Start 08/04/16 at 12:00; Stop 08/06/16 at 15:13; Status DC Sodium Bicarbonate 100 meq STK-MED ONCE .ROUTE ; Start 08/04/16 at 12:00; Stop 08/06/16 at 15:13; Status DC Amino Acids/ Glycerin/ Electrolytes 1,000 ml @ 100 mls/hr Q10H IV Last administered on 08/08/16 12:33; Start 08/07/16 at 10:00; Stop 08/09/16 at 09:42 ; Status DC Enoxaparin Sodium (Lovenox 40mg Syringe) 40 mg Q24H SQ Last administered on 13:10; Start 08/07/16 at 13:00; Stop 08/10/16 at 10:43; Status DC Vecuronium [place] (Norcuron Bolus) 10 mg STK-MED ONCE IV ; Start 08/07/16 at 13 :56; Stop 08/07/16 at 13:57; Status DC Vecuronium [place] (Norcuron Bolus) 6 mg 1X ONCE IV Last administered on 14:06; Start 08/07/16 at 14:00; Stop 08/07/16 at 14:05; Status DC Sodium Bicarbonate 50 meq 1X ONCE IV Last administered on 08/08/16 11:46; Start 08/08/16 at 11:45; Stop 08/08/16 at 11:46; Status DC Nystatin (Nystop) 1 james BID TP Last administered on 08/22/16 08:09; Start 08/08 at 21:00 Linezolid 300 ml @ 300 mls/hr Q12HR IV Last administered on 08/14/16 20:51; Start 08/09/16 at 09:00; Stop 08/15/16 at 07:21; Status DC Sodium Chloride 1,000 ml @ 20 mls/hr Q24H IV Last administered on 08/21/16 13: 31; Start 08/09/16 at 09:45 Sodium Bicarbonate 150 meq/Dextrose 1,150 ml @ 100 mls/hr 1X ONCE IV Last administered on 08/09/16 12:25; Start 08/09/16 at 11:30; Stop 08/09/16 at 22:59 ; Status DC Piperacillin Sod/ Tazobactam Sod (Zosyn Per Pharmacy) 1 each PRN DAILY PRN MC SEE COMMENTS; Start 08/09/16 at 12:00; Stop 08/14/16 at 07:40; Status DC Piperacillin Sod/ Tazobactam Sod 4.5 gm/Sodium Chloride 100 ml @ 200 mls/hr Q6HRS IV Last administered on 08/14/16 05:58; Start 08/09/16 at 12:30; Stop at 07:33; Status DC Vecuronium [place] (Norcuron Bolus) 5 mg PRN Q4HRS PRN IV INCREASED RESPIRATORY ,NOT RELI Last administered on 08/11/16 02:56; Start 08/09/16 at 13:30 Potassium Chloride 50 ml @ 100 mls/hr Q1H IV ; Start 08/10/16 at 09:30; Stop at 10:59; Status Cancel Potassium Chloride 100 ml @ 100 mls/hr Q1H IV Last administered on 08/10/16 16:28; Start 08/10/16 at 10:30; Stop 08/10/16 at 14:29; Status DC Potassium Chloride (KCl Oral Soln) 60 meq 1X ONCE PEG Last administered on 11:16; Start 08/10/16 at 11:00; Stop 08/10/16 at 11:01; Status DC Sodium Bicarbonate 150 meq/Dextrose 1,150 ml @ 100 mls/hr [id number] IV Last administered on 08/10/16 11:14; Start 08/10/16 at 11:00; Stop 08/10/16 at 22:29 ; Status DC Enoxaparin Sodium (Lovenox 40mg Syringe) 40 mg Q24H SQ ; Start 08/10/16 at 13:00 ; Stop 08/10/16 at 13:00; Status DC Micafungin Sodium 100 mg/Dextrose 100 ml @ 100 mls/hr Q24H IV Last administered on 08/13/16 16:26; Start 08/11/16 at 16:00; Stop 08/14/16 at 07:33 ; Status DC Furosemide (Lasix) 40 mg 1X ONCE IVP Last administered on 08/12/16 08:38; Start 08/12/16 at 08:00; Stop 08/12/16 at 08:06; Status DC Morphine Sulfate 1 mg PRN Q10MIN PRN IV SEVERE PAIN; Start 08/13/16 at 07:00; Stop 08/14/16 at 06:59; Status DC Lactated Ringer's 1,000 ml @ 0 mls/hr Q0M IV ; Start 08/13/16 at 07:00; Stop at 18:59; Status DC Lidocaine HCl 2 ml PRN 1X PRN ID PRIOR TO IV START; Start 08/13/16 at 07:00; Stop 08/14/16 at 06:59; Status DC Hydromorphone HCl (Dilaudid) 0.5 mg PRN Q10MIN PRN IV SEV PAIN, Second choice; Start 08/13/16 at 07:00; Stop 08/14/16 at 06:59; Status DC Prochlorperazine Edisylate (Compazine) 5 mg PACU PRN PRN IV NAUSEA, MRX1; Start 08/13/16 at 07:00; Stop 08/14/16 at 06:59; Status DC Morphine Sulfate 1 mg PRN Q10MIN PRN IV SEVERE PAIN; Start 08/13/16 at 07:00; Stop 08/14/16 at 06:59; Status DC Lactated Ringer's 1,000 ml @ 0 mls/hr Q0M IV ; Start 08/13/16 at 07:00; Stop at 18:59; Status DC Lidocaine HCl 2 ml PRN 1X PRN ID PRIOR TO IV START; Start 08/13/16 at 07:00; Stop 08/14/16 at 06:59; Status DC Hydromorphone HCl (Dilaudid) 0.5 mg PRN Q10MIN PRN IV SEV PAIN, Second choice; Start 08/13/16 at 07:00; Stop 08/14/16 at 06:59; Status DC Prochlorperazine Edisylate (Compazine) 5 mg PACU PRN PRN IV NAUSEA, MRX1; Start 08/13/16 at 07:00; Stop 08/14/16 at 06:59; Status DC Potassium Chloride 50 ml @ 50 mls/hr Q1H IV Last administered on 08/13/16t 07: 57; Start 08/13/16 at 07:00; Stop 08/13/16 at 08:59; Status DC Rocuronium [place] (Zemuron) 50 mg STK-MED ONCE .ROUTE ; Start 08/13/16 at 12:50 ; Stop 08/13/16 at 12:51; Status DC Propofol 20 ml @ As Directed STK-MED ONCE IV ; Start 08/13/16 at 12:53; Stop at 12:54; Status DC Sevoflurane (Ultane) 30 ml STK-MED ONCE IH ; Start 08/13/16 at 14:04; Stop 08/13 at 14:05; Status DC Albumin Human 250 ml @ 100 mls/hr 1X ONCE IV Last administered on 08/13/16 23:38; Start 08/13/16 at 18:00; Stop 08/13/16 at 20:29; Status DC Albumin Human 500 ml @ 100 mls/hr 1X ONCE IV Last administered on 08/13/16 18:15; Start 08/13/16 at 18:00; Stop 08/13/16 at 22:59; Status DC Potassium Chloride 50 ml @ 50 mls/hr Q1H IV Last administered on 08/14/16 10: 46; Start 08/14/16 at 08:00; Stop 08/14/16 at 09:59; Status DC Nafcillin Sodium 2 gm/Sodium Chloride 100 ml @ 200 mls/hr Q4HRS IV Last administered on 08/22/16 08:08; Start 08/14/16 at 08:00 Enoxaparin Sodium (Lovenox 40mg Syringe) 40 mg Q24H SQ Last administered on 08/21 13:33; Start 08/14/16 at 12:00 Potassium Chloride (KCl Oral Soln) 40 meq 1X ONCE PEG Last administered on 07:54; Start 08/16/16 at 07:00; Stop 08/16/16 at 07:01; Status DC Potassium Chloride (KCl Oral Soln) 40 meq 1X ONCE PEG Last administered on 14:01; Start 08/16/16 at 12:00; Stop 08/16/16 at 12:01; Status DC Magnesium Sulfate/ Dextrose 50 ml @ 25 mls/hr 1X ONCE IV Last administered on 08/16/16 17:14; Start 08/16/16 at 16:30; Stop 08/16/16 at 18:29; Status DC Potassium Chloride (Klor-Con) 40 meq 1X ONCE PO ; Start 08/17/16 at 13:30; Stop 08/17/16 at 13:31; Status Cancel Potassium Chloride (KCl Oral Soln) 40 meq 1X ONCE PO Last administered on 08/17 15:34; Start 08/17/16 at 13:30; Stop 08/17/16 at 14:27; Status DC Potassium Chloride 100 ml @ 100 mls/hr PRN Q1HR PRN IV HYPOKALEMIA PER ICU PROTOCOL; Start 08/17/16 at 13:30 Potassium Chloride 50 ml @ 25 mls/hr PRN Q2HR PRN IV HYPOKALEMIA PER ICU PROTOCOL Last administered on 08/21/16 13:29; Start 08/17/16 at 13:30; Stop 08/21 at 13:34; Status DC Potassium Chloride (Klor-Con) 40 meq PRN Q2HR PRN PO HYPOKALEMIA PER ICU PROTOCOL; Start 08/17/16 at 13:30 Potassium Chloride 100 ml @ 100 mls/hr PRN Q1HR PRN IV HYPOKALEMIA PER ICU PROTOCOL; Start 08/17/16 at 13:30 Potassium Chloride 50 ml @ 25 mls/hr PRN Q2HR PRN IV HYPOKALEMIA PER ICU PROTOCOL; Start 08/17/16 at 13:30 Potassium Chloride (Klor-Con) 40 meq PRN Q2HR PRN PO HYPOKALEMIA PER ICU PROTOCOL; Start 08/17/16 at 13:30 Potassium Chloride 100 ml @ 100 mls/hr PRN Q1HR PRN IV HYPOKALEMIA PER ICU PROTOCOL; Start 08/17/16 at 13:30 Potassium Chloride 50 ml @ 25 mls/hr PRN Q2HR PRN IV HYPOKALEMIA PER ICU PROTOCOL; Start 08/17/16 at 14:00 Magnesium Sulfate/ Dextrose 100 ml @ 50 mls/hr PRN DAILY PRN IV HYPOMAGNESIA PER ICU PROTOCOL Last administered on 08/20/16 22:26; Start 08/18/16 at 09:00 Potassium Phos/ Sodium Phos (Phos-Nak) 1 pkt BID PO ; Start 08/17/16 at 21:00; Stop 08/18/16 at 09:01; Status DC Sodium Phosphate 40 mmol/Dextrose 263.3333 ml @ 62.5 mls/hr PRN 1X PRN IV HYPOPHOSP PER ICU PROTOCOL; Start 08/17/16 at 13:30 Potassium Chloride (KCl Oral Soln) 40 meq 1X ONCE PEG Last administered on 08/19 07:57; Start 08/19/16 at 07:45; Stop 08/19/16 at 07:46; Status DC Potassium Chloride (KCl Oral Soln) 40 meq 1X ONCE PEG Last administered on 08/19 11:36; Start 08/19/16 at 12:00; Stop 08/19/16 at 12:01; Status DC Alprazolam (Xanax) 0.5 mg 1X ONCE PO Last administered on 08/19/16 11:35; Start 08/19/16 at 11:15; Stop 08/19/16 at 11:16; Status DC Alprazolam (Xanax) 0.5 mg TID PEG Last administered on 08/22/16 08:08; Start at 15:00 Potassium Chloride 50 ml @ 50 mls/hr Q1H IV Last administered on 08/22/16 09:07 ; Start 08/22/16 at 08:30; Stop 08/22/16 at 10:29 Haloperidol Lactate (Haldol) 5 mg PRN Q6HRS PRN IVP AGITATION; Start 08/22/16 at 09:15 Haloperidol Lactate (Haldol) 2 mg 1X ONCE IVP ; Start 08/22/16 at 09:15; Stop at 09:27; Status DC Active Scripts Active Reported No Known Medications Prior To Admisstion (Info) Each 1 Each Vitals/I & O Vital Sign - Last 24 Hours 08/21/16 08/21/16 08/21/16 08/21/16 09:53 10:00 11:00 11:23 Pulse 112 79 Resp 33 34 B/P (MAP) 140/96 (111) 158/99 (118) Pulse Ox 96 95 O2 Delivery T-Tube Ventilator Ventilator Ventilator O2 Flow Rate 10.0 08/21/16 08/21/16 08/21/16 08/21/16 12:00 12:00 12:30 13:00 Temp 98.8 98.8 Pulse 110 106 Resp 26 26 B/P (MAP) 145/98 (114) 150/97 (114) Pulse Ox 93 94 95 O2 Delivery Ventilator Mechanical Ventilator Ventilator Ventilator 08/21/16 08/21/16 08/21/16 08/21/16 13:01 14:00 15:00 15:15 Pulse 120 116 Resp 26 35 B/P (MAP) 116/79 (91) 138/81 (100) Pulse Ox 94 96 96 95 O2 Delivery Ventilator Ventilator Ventilator Ventilator 08/21/16 08/21/16 08/21/16 08/21/16 15:38 16:00 16:00 17:00 Temp 98.8 98.8 Pulse 116 124 Resp 31 31 B/P (MAP) 143/87 (105) 129/80 (96) Pulse Ox 96 96 96 O2 Delivery Ventilator Mechanical Ventilator Ventilator Ventilator 08/21/16 08/21/16 08/21/16 08/21/16 17:26 18:00 19:00 19:30 Temp 99.9 99.9 Pulse 106 115 Resp 30 22 B/P (MAP) 128/77 (94) 115/76 (89) Pulse Ox 96 96 100 O2 Delivery Ventilator Ventilator Ventilator Mechanical Ventilator 08/21/16 08/21/16 08/21/16 08/21/16 19:37 20:00 21:00 21:00 Pulse 119 117 Resp 21 30 B/P (MAP) 103/64 (77) 112/69 (83) Pulse Ox 99 100 100 99 O2 Delivery Ventilator Ventilator Ventilator Ventilator 08/21/16 08/21/16 08/21/16 08/21/16 22:00 23:00 23:00 23:48 Pulse 113 123 Resp 26 28 B/P (MAP) 135/77 (96) 116/74 (88) Pulse Ox 96 96 96 O2 Delivery Ventilator Ventilator Ventilator Mechanical Ventilator 08/22/16 08/22/16 08/22/16 08/22/16 00:00 01:00 02:00 02:36 Temp 98.4 98.4 Pulse 122 116 118 Resp 19 24 24 28 B/P (MAP) 101/67 (78) 104/60 (75) 111/60 (77) Pulse Ox 98 98 97 98 O2 Delivery Ventilator Ventilator Ventilator Ventilator 08/22/16 08/22/16 08/22/16 08/22/16 03:00 03:00 03:06 03:19 Pulse 122 Resp 30 30 B/P (MAP) 118/77 (91) Pulse Ox 96 97 96 O2 Delivery Ventilator Ventilator Ventilator Mechanical Ventilator 08/22/16 08/22/16 08/22/16 08/22/16 07:00 07:19 07:50 08:00 Temp 100.4 100.4 Pulse 119 116 Resp 29 29 B/P (MAP) 107/65 (79) 111/75 (87) Pulse Ox 98 99 98 O2 Delivery Ventilator Ventilator Mechanical Ventilator Ventilator 08/22/16 08/22/16 08:28 09:00 Pulse 115 Resp 29 B/P (MAP) 111/75 (87) Pulse Ox 96 94 O2 Delivery T-Tube T-Tube O2 Flow Rate 10.0 Intake and Output 08/21/16 08/21/16 08/22/16 14:59 22:59 06:59 Intake Total 500 ml 1517 ml 503 ml Output Total 225 ml 790 ml 225 ml Balance 275 ml 727 ml 278 ml Nutrition Consultation Dietary Evaluation: Recommendations by RD: PPN/TPN Comments: Pt is s/p PEG placement 08/14 Rec. continue TF's with Isosource HN, goal rate 45 ml/hr flushes 150ml q6h Added 1 packet prostat BID at 8AM and 6PM to better meet protein needs Expected Outcomes/Goals: tolerate the TF's via PEG at goal rate meet 75% estimated nutrition needs Malnutrition Findings: Reduced Physical Chemistry Professor Strength: N/A Reduced Physical Chemistry Professor Strength (Non-Sev: N/A Malnutrition related to morbid: No Weight Status: Overweight Fluid Accumulation (N/A): N/A MUNA MILLER MD August 22, 2016 09:37
[2016-08-22] MEDS: HALOPERIDOL LACTATE 5 MG/ML VIAL. IVP PRN (09:40)
--- NOTE | 2016-08-22 11:55 | PDOC ---
PULMONARY PROGRESS NOTES Subjective increase R/R increase secretions not tolerating CPAP Vitals Vital Signs Date Time Temp Pulse Resp B/P (MAP) Pulse Ox O2 Delivery O2 Flow Rate FiO2 08/22/16 11:22 97 Ventilator 08/22/16 09:00 115 29 111/75 (87) 08/22/16 08:28 10.0 08/22/16 08:00 100.4 100.4 General: Lethargic, Mild Distress Lungs: Other (coarse right) Cardiovascular: S1, S2, Other Abdomen: Soft, Non-tender Extremities: Other (edema) Skin: Warm Labs Laboratory Tests Test 08/20/16 21:50 08/21/16 05:30 08/21/16 08:50 08/21/16 11:10 Magnesium Level 1.5 mg/dL (1.8-2.4) 2.2 mg/dL (1.8-2.4) White Blood Count 15.8 x10^3/uL (4.0-11.0) Red Blood Count 3.19 x10^6/uL (3.50-5.40) Hemoglobin 9.5 g/dL (12.0-15.5) Hematocrit 27.7 % (36.0-47.0) Mean Corpuscular Volume 87 fL (79-100) Mean Corpuscular Hemoglobin 30 pg (25-35) Mean Corpuscular Hemoglobin Concent 34 g/dL (31-37) Red Cell Distribution Width 16.2 % (11.5-14.5) Platelet Count 422 x10^3/uL (140-400) Neutrophils (%) (Auto) 78 % (31-73) Lymphocytes (%) (Auto) 10 % (24-48) Monocytes (%) (Auto) 7 % (0-9) Eosinophils (%) (Auto) 4 % (0-3) Basophils (%) (Auto) 1 % (0-3) Neutrophils # (Auto) 12.3 x10^3uL (1.8-7.7) Lymphocytes # (Auto) 1.5 x10^3/uL (1.0-4.8) Monocytes # (Auto) 1.1 x10^3/uL (0.0-1.1) Eosinophils # (Auto) 0.7 x10^3/uL (0.0-0.7) Basophils # (Auto) 0.1 x10^3/uL (0.0-0.2) Sodium Level 138 mmol/L (136-145) Potassium Level 3.3 mmol/L (3.5-5.1) Chloride Level 107 mmol/L (98-107) Carbon Dioxide Level 23 mmol/L (21-32) Anion Gap 8 (6-14) Blood Urea Nitrogen 16 mg/dL (7-20) Creatinine 0.8 mg/dL (0.6-1.0) Estimated GFR (Cockcroft-Gault) 78.7 Glucose Level 115 mg/dL (70-99) Calcium Level 7.8 mg/dL (8.5-10.1) Phosphorus Level 3.7 mg/dL (2.6-4.7) Albumin 1.1 g/dL (3.4-5.0) O2 Saturation 94 % (92-99) 91 % (92-99) Arterial Blood pH 7.43 (7.35-7.45) 7.36 (7.35-7.45) Arterial Blood pCO2 at Patient Temp 33 mmHg (35-46) 40 mmHg (35-46) Arterial Blood pO2 at Patient Temp 70 mmHg (75-108) 62 mmHg (75-108) Arterial Blood HCO3 21 mmol/L (21-28) 22 mmol/L (21-28) Arterial Blood Base Excess -3 mmol/L (-3-3) -3 mmol/L (-3-3) FiO2 35 40 t tube Test 08/22/16 05:00 08/22/16 05:55 Sodium Level 138 mmol/L (136-145) Potassium Level 3.3 mmol/L (3.5-5.1) Chloride Level 106 mmol/L (98-107) Carbon Dioxide Level 23 mmol/L (21-32) Anion Gap 9 (6-14) Blood Urea Nitrogen 18 mg/dL (7-20) Creatinine 0.8 mg/dL (0.6-1.0) Estimated GFR (Cockcroft-Gault) 78.7 BUN/Creatinine Ratio 23 (6-20) Glucose Level 118 mg/dL (70-99) Calcium Level 7.7 mg/dL (8.5-10.1) Total Bilirubin 1.1 mg/dL (0.2-1.0) Aspartate Amino Transf (AST/SGOT) 15 U/L (15-37) Alanine Aminotransferase (ALT/SGPT) 12 U/L (14-59) Alkaline Phosphatase 117 U/L (46-116) Total Protein 6.6 g/dL (6.4-8.2) Albumin 1.1 g/dL (3.4-5.0) Albumin/Globulin Ratio 0.2 (1.0-1.7) White Blood Count 15.7 x10^3/uL (4.0-11.0) Red Blood Count 2.96 x10^6/uL (3.50-5.40) Hemoglobin 8.7 g/dL (12.0-15.5) Hematocrit 26.4 % (36.0-47.0) Mean Corpuscular Volume 89 fL (79-100) Mean Corpuscular Hemoglobin 30 pg (25-35) Mean Corpuscular Hemoglobin Concent 33 g/dL (31-37) Red Cell Distribution Width 16.4 % (11.5-14.5) Platelet Count 382 x10^3/uL (140-400) Neutrophils (%) (Auto) 80 % (31-73) Lymphocytes (%) (Auto) 10 % (24-48) Monocytes (%) (Auto) 7 % (0-9) Eosinophils (%) (Auto) 4 % (0-3) Basophils (%) (Auto) 0 % (0-3) Neutrophils # (Auto) 12.4 x10^3uL (1.8-7.7) Lymphocytes # (Auto) 1.5 x10^3/uL (1.0-4.8) Monocytes # (Auto) 1.1 x10^3/uL (0.0-1.1) Eosinophils # (Auto) 0.6 x10^3/uL (0.0-0.7) Basophils # (Auto) 0.1 x10^3/uL (0.0-0.2) Laboratory Tests Test 08/22/16 05:00 08/22/16 05:55 Sodium Level 138 mmol/L (136-145) Potassium Level 3.3 mmol/L (3.5-5.1) Chloride Level 106 mmol/L (98-107) Carbon Dioxide Level 23 mmol/L (21-32) Anion Gap 9 (6-14) Blood Urea Nitrogen 18 mg/dL (7-20) Creatinine 0.8 mg/dL (0.6-1.0) Estimated GFR (Cockcroft-Gault) 78.7 BUN/Creatinine Ratio 23 (6-20) Glucose Level 118 mg/dL (70-99) Calcium Level 7.7 mg/dL (8.5-10.1) Total Bilirubin 1.1 mg/dL (0.2-1.0) Aspartate Amino Transf (AST/SGOT) 15 U/L (15-37) Alanine Aminotransferase (ALT/SGPT) 12 U/L (14-59) Alkaline Phosphatase 117 U/L (46-116) Total Protein 6.6 g/dL (6.4-8.2) Albumin 1.1 g/dL (3.4-5.0) Albumin/Globulin Ratio 0.2 (1.0-1.7) White Blood Count 15.7 x10^3/uL (4.0-11.0) Red Blood Count 2.96 x10^6/uL (3.50-5.40) Hemoglobin 8.7 g/dL (12.0-15.5) Hematocrit 26.4 % (36.0-47.0) Mean Corpuscular Volume 89 fL (79-100) Mean Corpuscular Hemoglobin 30 pg (25-35) Mean Corpuscular Hemoglobin Concent 33 g/dL (31-37) Red Cell Distribution Width 16.4 % (11.5-14.5) Platelet Count 382 x10^3/uL (140-400) Neutrophils (%) (Auto) 80 % (31-73) Lymphocytes (%) (Auto) 10 % (24-48) Monocytes (%) (Auto) 7 % (0-9) Eosinophils (%) (Auto) 4 % (0-3) Basophils (%) (Auto) 0 % (0-3) Neutrophils # (Auto) 12.4 x10^3uL (1.8-7.7) Lymphocytes # (Auto) 1.5 x10^3/uL (1.0-4.8) Monocytes # (Auto) 1.1 x10^3/uL (0.0-1.1) Eosinophils # (Auto) 0.6 x10^3/uL (0.0-0.7) Basophils # (Auto) 0.1 x10^3/uL (0.0-0.2) Medications Active Scripts Medications Dose Route/Sig Days Date Category No Known Medications Prior To Admisstion (Info) Each 1 Each 08/06/16 Reported Impression . 1. Acute hypoxemic respiratory failure, multifactorial in etiology / increase secretions , repeat sputum 2. Hold CPAP/ T-PIECE today 3. Bilateral pulmonary nodules with cavitation, due to septic emboli. 4. Endocarditis. right sided, improving vegetations 5. ? chronic obstructive pulmonary disease. 6. Leukocytosis./fever, improved 7. Anemia. 8. Thrombocytopenia. off lovenox 10. Intravenous drug abuse. 11. Tobacco habituation. 12. MSSA septicemia/pneumonia/ CHF Plan . Trach secretions for c/s Hold weaning today repeat cxr s/p trach Bronch with MSSA, antibiotics per ANI, CARLEY WORKMAN MD August 22, 2016 11:55
--- NOTE | 2016-08-22 12:39 | RAD ---
Portable chest, 08/22/2016: History: Respiratory failure Comparison is made to a study from 08/17/2016. The patient is rotated to the left. The tracheostomy tube is unchanged in position. A left PICC extends into the superior aspect of the right atrium. There are moderate ongoing bilateral pulmonary infiltrates with poor definition of the underlying pulmonary vascularity. There are persistent pleural-based opacities laterally on the left extending into the apical region. The appearance suggests partial loculation of the left pleural fluid, raising the possibility of empyema. There is pleural fluid contributing to the right lower chest opacities. Underlying cavitary pulmonary nodules are less well delineated compared to previous exams. No new abnormality is detected. IMPRESSION: Ongoing extensive bilateral pulmonary infiltrates with bilateral pleural effusions, partially loculated on the left. Similar findings were present on 08/17/2016.
[2016-08-22] MEDS: ENOXAPARIN 40 MG/0.4 ML SYRINGE. SQ SCH (12:48)
[2016-08-22] MEDS: IV 1/2 NORMAL SALINE 1,000 ML IV SCH (12:53)
[2016-08-23] VITALS (24 sets, daily range): BP systolic 85–131; BP diastolic 57–83
[2016-08-23] MEDS: NAFCILLIN 2 GM in IV NORMAL SALINE 100ML 100 ML IV SCH ×2 (04:21→08:51)
[2016-08-23 05:19] LABS: MAGNESIUM 1.7 mg/dL (1.8-2.4); PHOSPHORUS 3.7 mg/dL (2.6-4.7)
[2016-08-23 06:37] LABS: BASO # 0.1 x10^3/uL (0.0-0.2); BASO % 0 % (0-3); EOS % 2 % (0-3); HEMATOCRIT 27.4 % (36.0-47.0); HEMOGLOBIN 8.8 g/dL (12.0-15.5); LYMPH # 1.7 x10^3/uL (1.0-4.8); LYMPH % 9 % (24-48); MEAN CORPUSCULAR HEMOGLOBIN 29 pg (25-35); MEAN CORPUSCULAR HGB CONC 32 g/dL (31-37); MEAN CORPUSCULAR VOLUME 91 fL (79-100); MONO % 7 % (0-9); NEUT % 82 % (31-73); PLATELET COUNT 405 x10^3/uL (140-400); RED BLOOD COUNT 3.03 x10^6/uL (3.50-5.40); RED CELL DISTRIBUTION WIDTH 16.9 % (11.5-14.5); WHITE BLOOD COUNT 18.8 x10^3/uL (4.0-11.0)
[2016-08-23 06:49] LABS: CALCIUM 7.7 mg/dL (8.5-10.1); CREATININE 0.7 mg/dL (0.6-1.0); GFR 91.8; POTASSIUM 3.9 mmol/L (3.5-5.1)
[2016-08-23] MEDS: IPRATRPIUM/ALBUTEROL 0.5/2.5MG 3 ML NEBU. NEB SCH ×4 (07:14→19:37)
[2016-08-23] MEDS: BUDESONIDE 0.5 MG/2 ML NEBU. NEB SCH ×2 (07:14→19:37)
--- NOTE | 2016-08-23 07:55 | PDOC ---
Infectious Disease Note Subjective Subjective Remains intubated via trach ROS ROS no n/v/d/pain Vital Sign Vital Signs Vital Signs Date Time Temp Pulse Resp B/P (MAP) Pulse Ox O2 Delivery O2 Flow Rate FiO2 08/23/16 07:14 100 Ventilator 08/23/16 06:00 122 26 119/70 (86) 08/23/16 04:00 100.2 100.2 08/22/16 08:28 10.0 Physical Exam PHYSICAL EXAM GENERAL: NAD, Alert on vent HEENT: PERRL, OC/OP NECK: Supple, no JVD, no LN LUNGS: Clear HEART: S1S2, no gallop, no murmur ABD: Soft, NT, no organomegaly, no rebound EXT: +++ edema, no cyanosis OIL ANALYST: Alert, on vent SKIN: No rash IV: ok Labs Lab Laboratory Tests Test 08/22/16 17:30 08/23/16 04:15 Potassium Level 3.6 mmol/L (3.5-5.1) 3.9 mmol/L (3.5-5.1) White Blood Count 18.8 x10^3/uL (4.0-11.0) Red Blood Count 3.03 x10^6/uL (3.50-5.40) Hemoglobin 8.8 g/dL (12.0-15.5) Hematocrit 27.4 % (36.0-47.0) Mean Corpuscular Volume 91 fL (79-100) Mean Corpuscular Hemoglobin 29 pg (25-35) Mean Corpuscular Hemoglobin Concent 32 g/dL (31-37) Red Cell Distribution Width 16.9 % (11.5-14.5) Platelet Count 405 x10^3/uL (140-400) Neutrophils (%) (Auto) 82 % (31-73) Lymphocytes (%) (Auto) 9 % (24-48) Monocytes (%) (Auto) 7 % (0-9) Eosinophils (%) (Auto) 2 % (0-3) Basophils (%) (Auto) 0 % (0-3) Neutrophils # (Auto) 15.4 x10^3uL (1.8-7.7) Lymphocytes # (Auto) 1.7 x10^3/uL (1.0-4.8) Monocytes # (Auto) 1.3 x10^3/uL (0.0-1.1) Eosinophils # (Auto) 0.4 x10^3/uL (0.0-0.7) Basophils # (Auto) 0.1 x10^3/uL (0.0-0.2) Sodium Level 139 mmol/L (136-145) Chloride Level 106 mmol/L (98-107) Carbon Dioxide Level 22 mmol/L (21-32) Anion Gap 11 (6-14) Blood Urea Nitrogen 19 mg/dL (7-20) Creatinine 0.7 mg/dL (0.6-1.0) Estimated GFR (Cockcroft-Gault) 91.8 Glucose Level 121 mg/dL (70-99) Calcium Level 7.7 mg/dL (8.5-10.1) Phosphorus Level 3.7 mg/dL (2.6-4.7) Magnesium Level 1.7 mg/dL (1.8-2.4) Objective Assessment MSSA sepsis 08/01 ([facility]) -Repeat BC positive, 08/05 & 08/07. Neg 08/09 Right-sided bacterial endocarditis. -TTE. 3.0 x 2.0cm mobile mass TV Multiple pulmonary nodules/septic emboli Acute Resp failure - Intubated ? developing ARDS. S/p Bronch 08/08. MSSA IV drug use. Hep C Renal insufficiency. Hepatosplenomegaly on CT Tach and PEG Leukocytosis likely reactive, Plan Plan of Care Continue Nafcillin. She will need a total of 6 weeks. Monitor WBC, temp Supportive care may benefit by albumin and diuresis MARSHA MORFIN MD August 23, 2016 07:55
[2016-08-23] MEDS ORDERED: VITS A & D/LANOLIN TOPICAL OINTMENT 56GM TUBE. TP PRN (08:45)
[2016-08-23] MEDS: ALPRAZolam 0.5 MG TABLET PEG SCH ×3 (08:50→20:34)
[2016-08-23] MEDS: FUROSEMIDE 40 MG/4 ML VIAL. IVP SCH ×2 (08:50→17:26)
[2016-08-23] MEDS: ALBUMIN HUMAN 25% 100 ML IV SCH ×2 (08:50→17:25)
[2016-08-23] MEDS: FAMOTIDINE 20 MG/2 ML VIAL IVP SCH ×2 (08:50→20:34)
[2016-08-23] MEDS: MAGNESIUM SULFATE 4GM 100 ML IV SCH (08:51)
[2016-08-23] MEDS: NYSTATIN TOPICAL POWDER 15GM BOTTLE. TP SCH ×2 (08:52→21:39)
--- NOTE | 2016-08-23 10:23 | PDOC ---
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, IV drug use -Resp failure on Vent -Polysubstance abuse -Hep C, right -Tobacco use -20lb weight loss over the last couple of months -Renal insufficiency -Pneumonia -Anemia requiring transfusions severe malnutrition, was POA History of Present Illness History of Present Illness lying in bed, on trach w/ t-tube, some distress in resp rate, 26-30 some redness in flaquito area, Vitals Vitals Vital Signs Date Time Temp Pulse Resp B/P (MAP) Pulse Ox O2 Delivery O2 Flow Rate FiO2 08/23/16 09:31 24 98 Ventilator 08/23/16 06:00 122 119/70 (86) 08/23/16 04:00 100.2 100.2 08/22/16 08:28 10.0 Physical Exam General: Alert, Cooperative, No acute distress Heart: Normal S1, Normal S2, No murmurs Lungs: Other (coarse right) Abdomen: Normal bowel sounds, Other (Hepatosplenomegaly present) Extremities: No cyanosis, No edema Skin: No breakdown, No significant lesion Labs LABS Laboratory Tests Test 08/22/16 17:30 08/23/16 04:15 Potassium Level 3.6 mmol/L (3.5-5.1) 3.9 mmol/L (3.5-5.1) White Blood Count 18.8 x10^3/uL (4.0-11.0) Red Blood Count 3.03 x10^6/uL (3.50-5.40) Hemoglobin 8.8 g/dL (12.0-15.5) Hematocrit 27.4 % (36.0-47.0) Mean Corpuscular Volume 91 fL (79-100) Mean Corpuscular Hemoglobin 29 pg (25-35) Mean Corpuscular Hemoglobin Concent 32 g/dL (31-37) Red Cell Distribution Width 16.9 % (11.5-14.5) Platelet Count 405 x10^3/uL (140-400) Neutrophils (%) (Auto) 82 % (31-73) Lymphocytes (%) (Auto) 9 % (24-48) Monocytes (%) (Auto) 7 % (0-9) Eosinophils (%) (Auto) 2 % (0-3) Basophils (%) (Auto) 0 % (0-3) Neutrophils # (Auto) 15.4 x10^3uL (1.8-7.7) Lymphocytes # (Auto) 1.7 x10^3/uL (1.0-4.8) Monocytes # (Auto) 1.3 x10^3/uL (0.0-1.1) Eosinophils # (Auto) 0.4 x10^3/uL (0.0-0.7) Basophils # (Auto) 0.1 x10^3/uL (0.0-0.2) Sodium Level 139 mmol/L (136-145) Chloride Level 106 mmol/L (98-107) Carbon Dioxide Level 22 mmol/L (21-32) Anion Gap 11 (6-14) Blood Urea Nitrogen 19 mg/dL (7-20) Creatinine 0.7 mg/dL (0.6-1.0) Estimated GFR (Cockcroft-Gault) 91.8 Glucose Level 121 mg/dL (70-99) Calcium Level 7.7 mg/dL (8.5-10.1) Phosphorus Level 3.7 mg/dL (2.6-4.7) Magnesium Level 1.7 mg/dL (1.8-2.4) Review of Systems Review of Systems anxiety, agitation Comment Review of Relevant I have reviewed the following items shanta (where applicable) has been applied. Labs Laboratory Tests Test 08/21/16 11:10 08/22/16 05:00 08/22/16 05:55 08/22/16 17:30 O2 Saturation 91 % (92-99) Arterial Blood pH 7.36 (7.35-7.45) Arterial Blood pCO2 at Patient Temp 40 mmHg (35-46) Arterial Blood pO2 at Patient Temp 62 mmHg (75-108) Arterial Blood HCO3 22 mmol/L (21-28) Arterial Blood Base Excess -3 mmol/L (-3-3) FiO2 40 t tube Sodium Level 138 mmol/L (136-145) Potassium Level 3.3 mmol/L (3.5-5.1) 3.6 mmol/L (3.5-5.1) Chloride Level 106 mmol/L (98-107) Carbon Dioxide Level 23 mmol/L (21-32) Anion Gap 9 (6-14) Blood Urea Nitrogen 18 mg/dL (7-20) Creatinine 0.8 mg/dL (0.6-1.0) Estimated GFR (Cockcroft-Gault) 78.7 BUN/Creatinine Ratio 23 (6-20) Glucose Level 118 mg/dL (70-99) Calcium Level 7.7 mg/dL (8.5-10.1) Total Bilirubin 1.1 mg/dL (0.2-1.0) Aspartate Amino Transf (AST/SGOT) 15 U/L (15-37) Alanine Aminotransferase (ALT/SGPT) 12 U/L (14-59) Alkaline Phosphatase 117 U/L (46-116) Total Protein 6.6 g/dL (6.4-8.2) Albumin 1.1 g/dL (3.4-5.0) Albumin/Globulin Ratio 0.2 (1.0-1.7) White Blood Count 15.7 x10^3/uL (4.0-11.0) Red Blood Count 2.96 x10^6/uL (3.50-5.40) Hemoglobin 8.7 g/dL (12.0-15.5) Hematocrit 26.4 % (36.0-47.0) Mean Corpuscular Volume 89 fL (79-100) Mean Corpuscular Hemoglobin 30 pg (25-35) Mean Corpuscular Hemoglobin Concent 33 g/dL (31-37) Red Cell Distribution Width 16.4 % (11.5-14.5) Platelet Count 382 x10^3/uL (140-400) Neutrophils (%) (Auto) 80 % (31-73) Lymphocytes (%) (Auto) 10 % (24-48) Monocytes (%) (Auto) 7 % (0-9) Eosinophils (%) (Auto) 4 % (0-3) Basophils (%) (Auto) 0 % (0-3) Neutrophils # (Auto) 12.4 x10^3uL (1.8-7.7) Lymphocytes # (Auto) 1.5 x10^3/uL (1.0-4.8) Monocytes # (Auto) 1.1 x10^3/uL (0.0-1.1) Eosinophils # (Auto) 0.6 x10^3/uL (0.0-0.7) Basophils # (Auto) 0.1 x10^3/uL (0.0-0.2) Test 08/23/16 04:15 White Blood Count 18.8 x10^3/uL (4.0-11.0) Red Blood Count 3.03 x10^6/uL (3.50-5.40) Hemoglobin 8.8 g/dL (12.0-15.5) Hematocrit 27.4 % (36.0-47.0) Mean Corpuscular Volume 91 fL (79-100) Mean Corpuscular Hemoglobin 29 pg (25-35) Mean Corpuscular Hemoglobin Concent 32 g/dL (31-37) Red Cell Distribution Width 16.9 % (11.5-14.5) Platelet Count 405 x10^3/uL (140-400) Neutrophils (%) (Auto) 82 % (31-73) Lymphocytes (%) (Auto) 9 % (24-48) Monocytes (%) (Auto) 7 % (0-9) Eosinophils (%) (Auto) 2 % (0-3) Basophils (%) (Auto) 0 % (0-3) Neutrophils # (Auto) 15.4 x10^3uL (1.8-7.7) Lymphocytes # (Auto) 1.7 x10^3/uL (1.0-4.8) Monocytes # (Auto) 1.3 x10^3/uL (0.0-1.1) Eosinophils # (Auto) 0.4 x10^3/uL (0.0-0.7) Basophils # (Auto) 0.1 x10^3/uL (0.0-0.2) Sodium Level 139 mmol/L (136-145) Potassium Level 3.9 mmol/L (3.5-5.1) Chloride Level 106 mmol/L (98-107) Carbon Dioxide Level 22 mmol/L (21-32) Anion Gap 11 (6-14) Blood Urea Nitrogen 19 mg/dL (7-20) Creatinine 0.7 mg/dL (0.6-1.0) Estimated GFR (Cockcroft-Gault) 91.8 Glucose Level 121 mg/dL (70-99) Calcium Level 7.7 mg/dL (8.5-10.1) Phosphorus Level 3.7 mg/dL (2.6-4.7) Magnesium Level 1.7 mg/dL (1.8-2.4) Laboratory Tests Test 08/22/16 17:30 08/23/16 04:15 Potassium Level 3.6 mmol/L (3.5-5.1) 3.9 mmol/L (3.5-5.1) White Blood Count 18.8 x10^3/uL (4.0-11.0) Red Blood Count 3.03 x10^6/uL (3.50-5.40) Hemoglobin 8.8 g/dL (12.0-15.5) Hematocrit 27.4 % (36.0-47.0) Mean Corpuscular Volume 91 fL (79-100) Mean Corpuscular Hemoglobin 29 pg (25-35) Mean Corpuscular Hemoglobin Concent 32 g/dL (31-37) Red Cell Distribution Width 16.9 % (11.5-14.5) Platelet Count 405 x10^3/uL (140-400) Neutrophils (%) (Auto) 82 % (31-73) Lymphocytes (%) (Auto) 9 % (24-48) Monocytes (%) (Auto) 7 % (0-9) Eosinophils (%) (Auto) 2 % (0-3) Basophils (%) (Auto) 0 % (0-3) Neutrophils # (Auto) 15.4 x10^3uL (1.8-7.7) Lymphocytes # (Auto) 1.7 x10^3/uL (1.0-4.8) Monocytes # (Auto) 1.3 x10^3/uL (0.0-1.1) Eosinophils # (Auto) 0.4 x10^3/uL (0.0-0.7) Basophils # (Auto) 0.1 x10^3/uL (0.0-0.2) Sodium Level 139 mmol/L (136-145) Chloride Level 106 mmol/L (98-107) Carbon Dioxide Level 22 mmol/L (21-32) Anion Gap 11 (6-14) Blood Urea Nitrogen 19 mg/dL (7-20) Creatinine 0.7 mg/dL (0.6-1.0) Estimated GFR (Cockcroft-Gault) 91.8 Glucose Level 121 mg/dL (70-99) Calcium Level 7.7 mg/dL (8.5-10.1) Phosphorus Level 3.7 mg/dL (2.6-4.7) Magnesium Level 1.7 mg/dL (1.8-2.4) Microbiology 08/12/16 Blood Fungal Culture - Preliminary, Resulted 08/12/16 Fungal Culture Result 1 - Preliminary, Resulted 08/08/16 AFB Specimen Processing Tissue - Final, Resulted 08/08/16 Acid Fast Bacilli Culture, Resulted Pending 08/08/16 Gram Stain - Final, Resulted 08/08/16 Fungal Culture - Preliminary, Resulted 08/08/16 Fungal Culture Result 1 - Preliminary, Resulted Medications Current Medications Amino Acids/ Glycerin/ Electrolytes 1,000 ml @ 100 mls/hr Q10H IV Last administered on 08/05/16 02:40; Start 08/02/16 at 03:00; Stop 08/05/16 at 08:50 ; Status DC Morphine Sulfate 2 mg PRN Q2HR PRN IV SEVERE PAIN Last administered on 11:59; Start 08/02/16 at 02:30; Stop 08/02/16 at 13:28; Status DC Daptomycin 220 mg/ Sodium Chloride 50 ml @ 100 mls/hr Q24H IV ; Start 08/02/16 at 09:15; Stop 08/02/16 at 15:58; Status DC Cefepime HCl 1 gm/ Sodium Chloride 50 ml @ 100 mls/hr Q12HR IV Last administered on 08/04/16 08:10; Start 08/02/16 at 10:00; Stop 08/04/16 at 10:33 ; Status DC Daptomycin 220 mg/ Sodium Chloride 50 ml @ 100 mls/hr ONCE ONCE IV ; Start at 10:00; Stop 08/02/16 at 10:29; Status Cancel Potassium Chloride (Klor-Con) 40 meq 1X ONCE PO Last administered on 10:17; Start 08/02/16 at 09:45; Stop 08/02/16 at 09:46; Status DC Daptomycin 220 mg/ Sodium Chloride 50 ml @ 100 mls/hr Q24H IV Last administered on 08/03/16 09:43; Start 08/02/16 at 10:15; Stop 08/03/16 at 10:29 ; Status DC Potassium Chloride (Klor-Con) 40 meq 1X ONCE PO Last administered on 12:57; Start 08/02/16 at 12:30; Stop 08/02/16 at 12:36; Status DC Morphine Sulfate 5 mg PRN Q2HRS PRN IV MODERATE TO SEVERE PAIN Last administered on 08/04/16 08:16; Start 08/02/16 at 13:30 Morphine Sulfate 8 mg PRN Q2HRS PRN IV MODERATE TO SEVERE PAIN Last administered on 08/04/16 14:58; Start 08/02/16 at 13:30 Acetaminophen (Tylenol) 650 mg PRN Q6HRS PRN PO TEMP GREATER THAN 100.4 Last administered on 08/10/16 00:18; Start 08/02/16 at 14:45 Lactated Ringer's 1,000 ml @ 50 mls/hr Q20H IV ; Start 08/05/16 at 07:00; Stop 08/05/16 at 18:13; Status DC Daptomycin 220 mg/ Sodium Chloride 50 ml @ 100 mls/hr Q24H IV ; Start 08/03/16 at 11:00; Status Cancel Potassium Chloride (Klor-Con) 40 meq 1X ONCE PO Last administered on 17:41; Start 08/02/16 at 17:15; Stop 08/02/16 at 17:18; Status DC Potassium Chloride (Klor-Con) 40 meq BIDWMEALS PO ; Start 08/03/16 at 08:00; Stop 08/03/16 at 11:08; Status DC Morphine Sulfate 5 mg 1X ONCE IV Last administered on 08/02/16 21:45; Start 08/02/16 at 21:30; Stop 08/02/16 at 21:33; Status DC Lorazepam (Ativan) 1 mg 1X ONCE IV Last administered on 08/02/16 21:30; Start 08/02/16 at 21:30; Stop 08/02/16 at 21:33; Status DC Acetaminophen (Acetaminophen Supp) 650 mg PRN Q6HRS PRN OH MILD PAIN / TEMP Last administered on 08/13/16 03:13; Start 08/03/16 at 01:15 Albuterol/ Ipratropium (Duoneb) 3 ml RTQID NEB Last administered on 08/23/16 07 :14; Start 08/03/16 at 08:00 Budesonide (Pulmicort) 0.5 mg RTBID NEB Last administered on 08/23/16 07:14; Start 08/03/16 at 08:00 Pantoprazole Sodium (Protonix Vial) 40 mg 1X ONCE IVP Last administered on 10:06; Start 08/03/16 at 08:00; Stop 08/03/16 at 08:01; Status DC Daptomycin 320 mg/ Sodium Chloride 50 ml @ 100 mls/hr Q24H IV Last administered on 08/04/16 10:03; Start 08/04/16 at 10:00; Stop 08/04/16 at 10:33 ; Status DC Lorazepam (Ativan) 0.5 mg PRN Q6HRS PRN IV ANXIETY / AGITATION Last administered on 08/04/16 09:12; Start 08/03/16 at 11:15; Stop 08/07/16 at 11:02 ; Status DC Lorazepam (Ativan) 0.5 mg 1X ONCE IV Last administered on 08/04/16 10:00; Start 08/04/16 at 10:00; Stop 08/04/16 at 10:01; Status DC Morphine Sulfate 5 mg 1X ONCE IV Last administered on 08/04/16 10:00; Start 08/04/16 at 10:00; Stop 08/04/16 at 10:01; Status DC Lorazepam (Ativan) 0.5 mg PRN Q4HRS PRN IV ANXIETY / AGITATION Last administered on 08/23/16 02:17; Start 08/04/16 at 10:00 Nafcillin Sodium 2 gm/Sodium Chloride 100 ml @ 200 mls/hr Q4HRS IV Last administered on 08/09/16 10:10; Start 08/04/16 at 12:00; Stop 08/09/16 at 11:49 ; Status DC Propofol 100 ml @ As Directed STK-MED ONCE IV ; Start 08/04/16 at 16:10; Stop 08/04/16 at 16:11; Status DC Succinylcholine Chloride (Anectine) 200 mg STK-MED ONCE .ROUTE ; Start 08/04/16 at 16:14; Stop 08/04/16 at 16:15; Status DC Succinylcholine Chloride (Anectine) 200 mg 1X ONCE IV ; Start 08/04/16 at 16:45 ; Stop 08/04/16 at 16:46; Status DC Propofol 100 ml @ 0 mls/hr CONT PRN IV SEE I/O RECORD Last administered on 08/17 10:18; Start 08/04/16 at 16:45 Lorazepam (Ativan) 0.5 mg 1X ONCE IV Last administered on 08/04/16 16:45; Start 08/04/16 at 16:45; Stop 08/04/16 at 16:46; Status DC Morphine Sulfate 5 mg 1X ONCE IV Last administered on 08/04/16 16:44; Start 08/04/16 at 16:45; Stop 08/04/16 at 16:46; Status DC Fentanyl Citrate 30 ml @ 0 mls/hr CONT PRN IV PROTOCOL Last administered on 08/23 09:01; Start 08/04/16 at 16:45 Chlorhexidine Gluconate (Peridex) 15 ml BID MM Last administered on 08/17/16 10:18; Start 08/04/16 at 21:00; Stop 08/17/16 at 19:36; Status DC Famotidine (Pepcid) 20 mg BID IVP Last administered on 08/23/16 08:50; Start at 17:00 Sodium Chloride 1,000 ml @ 100 mls/hr Q10H IV Last administered on 08/07/16 04:35; Start 08/05/16 at 09:00; Stop 08/07/16 at 08:59; Status DC Succinylcholine Chloride (Anectine) 200 mg STK-MED ONCE .ROUTE ; Start 08/04/16 at 16:00; Stop 08/05/16 at 12:32; Status DC Lorazepam (Ativan) 2 mg 1X ONCE IV Last administered on 08/05/16 20:43; Start 08/05/16 at 21:00; Stop 08/05/16 at 21:01; Status DC Furosemide (Lasix) 40 mg 1X PRN PRN IV blood transfusion Last administered on 14:17; Start 08/06/16 at 08:00; Stop 08/07/16 at 07:59; Status DC Sodium Bicarbonate 50 meq 1X ONCE IV Last administered on 08/06/16 14:06; Start 08/06/16 at 12:00; Stop 08/06/16 at 12:01; Status DC Calcium Chloride 1,000 mg STK-MED ONCE IV ; Start 08/04/16 at 12:00; Stop at 15:13; Status DC Epinephrine HCl (Epinephrine Syringe) 2 mg STK-MED ONCE .ROUTE ; Start 08/04/16 at 12:00; Stop 08/06/16 at 15:13; Status DC Sodium Bicarbonate 100 meq STK-MED ONCE .ROUTE ; Start 08/04/16 at 12:00; Stop 08/06/16 at 15:13; Status DC Amino Acids/ Glycerin/ Electrolytes 1,000 ml @ 100 mls/hr Q10H IV Last administered on 08/08/16 12:33; Start 08/07/16 at 10:00; Stop 08/09/16 at 09:42 ; Status DC Enoxaparin Sodium (Lovenox 40mg Syringe) 40 mg Q24H SQ Last administered on 13:10; Start 08/07/16 at 13:00; Stop 08/10/16 at 10:43; Status DC Vecuronium Bolton (Norcuron Bolus) 10 mg STK-MED ONCE IV ; Start 08/07/16 at 13 :56; Stop 08/07/16 at 13:57; Status DC Vecuronium Bolton (Norcuron Bolus) 6 mg 1X ONCE IV Last administered on 14:06; Start 08/07/16 at 14:00; Stop 08/07/16 at 14:05; Status DC Sodium Bicarbonate 50 meq 1X ONCE IV Last administered on 08/08/16 11:46; Start 08/08/16 at 11:45; Stop 08/08/16 at 11:46; Status DC Nystatin (Nystop) 1 james BID TP Last administered on 08/23/16 08:52; Start 08/08 at 21:00 Linezolid 300 ml @ 300 mls/hr Q12HR IV Last administered on 08/14/16 20:51; Start 08/09/16 at 09:00; Stop 08/15/16 at 07:21; Status DC Sodium Chloride 1,000 ml @ 20 mls/hr Q24H IV Last administered on 08/22/16 12: 53; Start 08/09/16 at 09:45 Sodium Bicarbonate 150 meq/Dextrose 1,150 ml @ 100 mls/hr 1X ONCE IV Last administered on 08/09/16 12:25; Start 08/09/16 at 11:30; Stop 08/09/16 at 22:59 ; Status DC Piperacillin Sod/ Tazobactam Sod (Zosyn Per Pharmacy) 1 each PRN DAILY PRN MC SEE COMMENTS; Start 08/09/16 at 12:00; Stop 08/14/16 at 07:40; Status DC Piperacillin Sod/ Tazobactam Sod 4.5 gm/Sodium Chloride 100 ml @ 200 mls/hr Q6HRS IV Last administered on 08/14/16 05:58; Start 08/09/16 at 12:30; Stop at 07:33; Status DC Vecuronium [place] (Norcuron Bolus) 5 mg PRN Q4HRS PRN IV INCREASED RESPIRATORY ,NOT RELI Last administered on 08/11/16 02:56; Start 08/09/16 at 13:30 Potassium Chloride 50 ml @ 100 mls/hr Q1H IV ; Start 08/10/16 at 09:30; Stop at 10:59; Status Cancel Potassium Chloride 100 ml @ 100 mls/hr Q1H IV Last administered on 08/10/16 16:28; Start 08/10/16 at 10:30; Stop 08/10/16 at 14:29; Status DC Potassium Chloride (KCl Oral Soln) 60 meq 1X ONCE PEG Last administered on 11:16; Start 08/10/16 at 11:00; Stop 08/10/16 at 11:01; Status DC Sodium Bicarbonate 150 meq/Dextrose 1,150 ml @ 100 mls/hr [id number] IV Last administered on 08/10/16 11:14; Start 08/10/16 at 11:00; Stop 08/10/16 at 22:29 ; Status DC Enoxaparin Sodium (Lovenox 40mg Syringe) 40 mg Q24H SQ ; Start 08/10/16 at 13:00 ; Stop 08/10/16 at 13:00; Status DC Micafungin Sodium 100 mg/Dextrose 100 ml @ 100 mls/hr Q24H IV Last administered on 08/13/16 16:26; Start 08/11/16 at 16:00; Stop 08/14/16 at 07:33 ; Status DC Furosemide (Lasix) 40 mg 1X ONCE IVP Last administered on 08/12/16 08:38; Start 08/12/16 at 08:00; Stop 08/12/16 at 08:06; Status DC Morphine Sulfate 1 mg PRN Q10MIN PRN IV SEVERE PAIN; Start 08/13/16 at 07:00; Stop 08/14/16 at 06:59; Status DC Lactated Ringer's 1,000 ml @ 0 mls/hr Q0M IV ; Start 08/13/16 at 07:00; Stop at 18:59; Status DC Lidocaine HCl 2 ml PRN 1X PRN ID PRIOR TO IV START; Start 08/13/16 at 07:00; Stop 08/14/16 at 06:59; Status DC Hydromorphone HCl (Dilaudid) 0.5 mg PRN Q10MIN PRN IV SEV PAIN, Second choice; Start 08/13/16 at 07:00; Stop 08/14/16 at 06:59; Status DC Prochlorperazine Edisylate (Compazine) 5 mg PACU PRN PRN IV NAUSEA, MRX1; Start 08/13/16 at 07:00; Stop 08/14/16 at 06:59; Status DC Morphine Sulfate 1 mg PRN Q10MIN PRN IV SEVERE PAIN; Start 08/13/16 at 07:00; Stop 08/14/16 at 06:59; Status DC Lactated Ringer's 1,000 ml @ 0 mls/hr Q0M IV ; Start 08/13/16 at 07:00; Stop at 18:59; Status DC Lidocaine HCl 2 ml PRN 1X PRN ID PRIOR TO IV START; Start 08/13/16 at 07:00; Stop 08/14/16 at 06:59; Status DC Hydromorphone HCl (Dilaudid) 0.5 mg PRN Q10MIN PRN IV SEV PAIN, Second choice; Start 08/13/16 at 07:00; Stop 08/14/16 at 06:59; Status DC Prochlorperazine Edisylate (Compazine) 5 mg PACU PRN PRN IV NAUSEA, MRX1; Start 08/13/16 at 07:00; Stop 08/14/16 at 06:59; Status DC Potassium Chloride 50 ml @ 50 mls/hr Q1H IV Last administered on 08/13/16 07: 57; Start 08/13/16 at 07:00; Stop 08/13/16 at 08:59; Status DC Rocuronium Bolton (Zemuron) 50 mg STK-MED ONCE .ROUTE ; Start 08/13/16 at 12:50 ; Stop 08/13/16 at 12:51; Status DC Propofol 20 ml @ As Directed STK-MED ONCE IV ; Start 08/13/16 at 12:53; Stop at 12:54; Status DC Sevoflurane (Ultane) 30 ml STK-MED ONCE IH ; Start 08/13/16 at 14:04; Stop 08/13 at 14:05; Status DC Albumin Human 250 ml @ 100 mls/hr 1X ONCE IV Last administered on 08/13/16 23:38; Start 08/13/16 at 18:00; Stop 08/13/16 at 20:29; Status DC Albumin Human 500 ml @ 100 mls/hr 1X ONCE IV Last administered on 08/13/16 18:15; Start 08/13/16 at 18:00; Stop 08/13/16 at 22:59; Status DC Potassium Chloride 50 ml @ 50 mls/hr Q1H IV Last administered on 08/14/16 10: 46; Start 08/14/16 at 08:00; Stop 08/14/16 at 09:59; Status DC Nafcillin Sodium 2 gm/Sodium Chloride 100 ml @ 200 mls/hr Q4HRS IV Last administered on 08/23/16 08:51; Start 08/14/16 at 08:00 Enoxaparin Sodium (Lovenox 40mg Syringe) 40 mg Q24H SQ Last administered on 08/22 12:48; Start 08/14/16 at 12:00 Potassium Chloride (KCl Oral Soln) 40 meq 1X ONCE PEG Last administered on 07:54; Start 08/16/16 at 07:00; Stop 08/16/16 at 07:01; Status DC Potassium Chloride (KCl Oral Soln) 40 meq 1X ONCE PEG Last administered on 14:01; Start 08/16/16 at 12:00; Stop 08/16/16 at 12:01; Status DC Magnesium Sulfate/ Dextrose 50 ml @ 25 mls/hr 1X ONCE IV Last administered on 08/16/16 17:14; Start 08/16/16 at 16:30; Stop 08/16/16 at 18:29; Status DC Potassium Chloride (Klor-Con) 40 meq 1X ONCE PO ; Start 08/17/16 at 13:30; Stop 08/17/16 at 13:31; Status Cancel Potassium Chloride (KCl Oral Soln) 40 meq 1X ONCE PO Last administered on 08/17 15:34; Start 08/17/16 at 13:30; Stop 08/17/16 at 14:27; Status DC Potassium Chloride 100 ml @ 100 mls/hr PRN Q1HR PRN IV HYPOKALEMIA PER ICU PROTOCOL; Start 08/17/16 at 13:30 Potassium Chloride 50 ml @ 25 mls/hr PRN Q2HR PRN IV HYPOKALEMIA PER ICU PROTOCOL Last administered on 08/21/16 13:29; Start 08/17/16 at 13:30; Stop 08/21 at 13:34; Status DC Potassium Chloride (Klor-Con) 40 meq PRN Q2HR PRN PO HYPOKALEMIA PER ICU PROTOCOL; Start 08/17/16 at 13:30 Potassium Chloride 100 ml @ 100 mls/hr PRN Q1HR PRN IV HYPOKALEMIA PER ICU PROTOCOL; Start 08/17/16 at 13:30 Potassium Chloride 50 ml @ 25 mls/hr PRN Q2HR PRN IV HYPOKALEMIA PER ICU PROTOCOL; Start 08/17/16 at 13:30 Potassium Chloride (Klor-Con) 40 meq PRN Q2HR PRN PO HYPOKALEMIA PER ICU PROTOCOL; Start 08/17/16 at 13:30 Potassium Chloride 100 ml @ 100 mls/hr PRN Q1HR PRN IV HYPOKALEMIA PER ICU PROTOCOL; Start 08/17/16 at 13:30 Potassium Chloride 50 ml @ 25 mls/hr PRN Q2HR PRN IV HYPOKALEMIA PER ICU PROTOCOL; Start 08/17/16 at 14:00 Magnesium Sulfate/ Dextrose 100 ml @ 50 mls/hr PRN DAILY PRN IV HYPOMAGNESIA PER ICU PROTOCOL Last administered on 08/20/16 22:26; Start 08/18/16 at 09:00 Potassium Phos/ Sodium Phos (Phos-Nak) 1 pkt BID PO ; Start 08/17/16 at 21:00; Stop 08/18/16 at 09:01; Status DC Sodium Phosphate 40 mmol/Dextrose 263.3333 ml @ 62.5 mls/hr PRN 1X PRN IV HYPOPHOSP PER ICU PROTOCOL; Start 08/17/16 at 13:30 Potassium Chloride (KCl Oral Soln) 40 meq 1X ONCE PEG Last administered on 08/19 07:57; Start 08/19/16 at 07:45; Stop 08/19/16 at 07:46; Status DC Potassium Chloride (KCl Oral Soln) 40 meq 1X ONCE PEG Last administered on 08/19 11:36; Start 08/19/16 at 12:00; Stop 08/19/16 at 12:01; Status DC Alprazolam (Xanax) 0.5 mg 1X ONCE PO Last administered on 08/19/16 11:35; Start 08/19/16 at 11:15; Stop 08/19/16 at 11:16; Status DC Alprazolam (Xanax) 0.5 mg TID PEG Last administered on 08/23/16 08:50; Start at 15:00 Potassium Chloride 50 ml @ 50 mls/hr Q1H IV Last administered on 08/22/16 09:40 ; Start 08/22/16 at 08:30; Stop 08/22/16 at 10:29; Status DC Haloperidol Lactate (Haldol) 5 mg PRN Q6HRS PRN IVP AGITATION Last administered on 08/22/16 09:40; Start 08/22/16 at 09:15 Haloperidol Lactate (Haldol) 2 mg 1X ONCE IVP ; Start 08/22/16 at 09:15; Stop at 09:27; Status DC Magnesium Sulfate/ Dextrose 100 ml @ 50 mls/hr DAILY IV Last administered on 08:51; Start 08/23/16 at 09:00; Stop 08/26/16 at 08:59 Albumin Human 100 ml @ 100 mls/hr [id number] IV Last administered on 08/23/16 08:50 ; Start 08/23/16 at 09:00; Stop 08/23/16 at 16:59 Furosemide (Lasix) 40 mg [id number] IVP Last administered on 08/23/16 08:50; Start 08/23/16 at 09:00; Stop 08/23/16 at 16:01 Vitamin A/Vitamin D (Vitamin A & D Ointment) 1 james PRN Q1HR PRN TP SKIN PROTECTION; Start 08/23/16 at 08:45 Active Scripts Active Reported No Known Medications Prior To Admisstion (Info) Each 1 Each Vitals/I & O Vital Sign - Last 24 Hours 08/22/16 08/22/16 08/22/16 08/22/16 11:00 11:22 12:00 12:00 Temp 100.3 100.3 Pulse 122 114 Resp 30 28 B/P (MAP) 107/76 (86) Pulse Ox 96 97 96 O2 Delivery Ventilator Ventilator Mechanical Ventilator Ventilator 08/22/16 08/22/16 08/22/16 08/22/16 12:39 12:50 13:00 14:00 Pulse 115 115 Resp 26 27 27 B/P (MAP) Pulse Ox 100 98 99 99 O2 Delivery Ventilator Ventilator Ventilator Ventilator 08/22/16 08/22/16 08/22/16 08/22/16 15:00 15:32 16:00 16:00 Temp 100.3 100.3 Pulse 117 119 Resp 27 29 B/P (MAP) 115/78 (90) Pulse Ox 100 99 99 O2 Delivery Ventilator Ventilator Mechanical Ventilator Ventilator 08/22/16 08/22/16 08/22/16 08/22/16 17:00 17:25 18:00 19:00 Pulse 120 119 119 Resp 28 28 30 B/P (MAP) 109/72 (84) Pulse Ox 99 98 99 99 O2 Delivery Ventilator Ventilator Ventilator Ventilator 08/22/16 08/22/16 08/22/16 08/22/16 19:49 20:00 20:24 21:00 Temp 99.5 99.5 Pulse 116 123 Resp 24 26 B/P (MAP) 110/72 (85) 124/85 (98) Pulse Ox 99 99 99 O2 Delivery Mechanical Ventilator Ventilator Ventilator Ventilator 08/22/16 08/22/16 08/22/16 08/22/16 21:14 22:00 22:54 23:00 Pulse 101 120 Resp B/P (MAP) 118/74 (89) 122/74 (90) Pulse Ox 98 99 99 99 O2 Delivery Ventilator Ventilator Ventilator Ventilator 08/22/16 08/23/16 08/23/16 08/23/16 23:59 00:00 01:00 01:12 Temp 99.2 99.2 Pulse 122 107 Resp B/P (MAP) 113/68 (83) 103/66 (78) Pulse Ox 99 97 99 O2 Delivery Mechanical Ventilator Ventilator Ventilator Ventilator 08/23/16 08/23/16 08/23/16 08/23/16 02:00 03:00 03:32 04:00 Temp 100.2 100.2 Pulse 117 123 128 Resp B/P (MAP) 114/73 (87) 114/64 (81) 116/67 (83) Pulse Ox 99 99 98 99 O2 Delivery Ventilator Ventilator Ventilator Ventilator 08/23/16 08/23/16 08/23/16 08/23/16 04:00 05:00 05:43 06:00 Pulse 119 122 Resp B/P (MAP) 105/67 (80) 119/70 (86) Pulse Ox 99 98 99 O2 Delivery Mechanical Ventilator Ventilator Ventilator Ventilator 08/23/16 08/23/16 08/23/16 08/23/16 07:14 08:37 09:01 09:31 Resp Pulse Ox 100 97 98 98 O2 Delivery Ventilator Ventilator Ventilator Ventilator Intake and Output 08/22/16 08/22/16 08/23/16 15:00 23:00 07:00 Intake Total 465 ml 1141 ml 1556 ml Output Total 465 ml 420 ml 430 ml Balance 0 ml 721 ml 1126 ml Nutrition Consultation Dietary Evaluation: Recommendations by RD: PPN/TPN Comments: Pt is s/p PEG placement 08/14 Rec. continue TF's with Isosource HN, goal rate 45 ml/hr flushes 150ml q6h Added 1 packet prostat BID at 8AM and 6PM to better meet protein needs Expected Outcomes/Goals: tolerate the TF's via PEG at goal rate meet 75% estimated nutrition needs Malnutrition Findings: Reduced Hander In Strength: N/A Reduced Hander In Strength (Non-Sev: N/A Malnutrition related to morbid: No Weight Status: Overweight Fluid Accumulation (N/A): N/A MUNA MILLER MD August 23, 2016 10:23
--- NOTE | 2016-08-23 11:41 | PDOC ---
PULMONARY PROGRESS NOTES Subjective on vent, alert has back pain, mod trach secretion not tolerating CPAP Vitals Vital Signs Date Time Temp Pulse Resp B/P (MAP) Pulse Ox O2 Delivery O2 Flow Rate FiO2 08/23/16 11:07 98 Ventilator 08/23/16 09:31 24 08/23/16 06:00 122 119/70 (86) 08/23/16 04:00 100.2 100.2 08/22/16 08:28 10.0 Comments ros as mentioned as above other sys otherwise neg ROS: No Chest Pain, No Abdominal Pain General: Mild Distress HEENT: Other (nc at perrl. poor dentition) Lungs: Crackles Cardiovascular: S1, S2, Other Abdomen: Soft, Non-tender, Other (no mass) Neuro Exam: Alert Extremities: Other (edema) Skin: Warm Labs Laboratory Tests Test 08/22/16 05:00 08/22/16 05:55 08/22/16 17:30 08/23/16 04:15 Sodium Level 138 mmol/L (136-145) 139 mmol/L (136-145) Potassium Level 3.3 mmol/L (3.5-5.1) 3.6 mmol/L (3.5-5.1) 3.9 mmol/L (3.5-5.1) Chloride Level 106 mmol/L (98-107) 106 mmol/L (98-107) Carbon Dioxide Level 23 mmol/L (21-32) 22 mmol/L (21-32) Anion Gap 9 (6-14) 11 (6-14) Blood Urea Nitrogen 18 mg/dL (7-20) 19 mg/dL (7-20) Creatinine 0.8 mg/dL (0.6-1.0) 0.7 mg/dL (0.6-1.0) Estimated GFR (Cockcroft-Gault) 78.7 91.8 BUN/Creatinine Ratio 23 (6-20) Glucose Level 118 mg/dL (70-99) 121 mg/dL (70-99) Calcium Level 7.7 mg/dL (8.5-10.1) 7.7 mg/dL (8.5-10.1) Total Bilirubin 1.1 mg/dL (0.2-1.0) Aspartate Amino Transf (AST/SGOT) 15 U/L (15-37) Alanine Aminotransferase (ALT/SGPT) 12 U/L (14-59) Alkaline Phosphatase 117 U/L (46-116) Total Protein 6.6 g/dL (6.4-8.2) Albumin 1.1 g/dL (3.4-5.0) Albumin/Globulin Ratio 0.2 (1.0-1.7) White Blood Count 15.7 x10^3/uL (4.0-11.0) 18.8 x10^3/uL (4.0-11.0) Red Blood Count 2.96 x10^6/uL (3.50-5.40) 3.03 x10^6/uL (3.50-5.40) Hemoglobin 8.7 g/dL (12.0-15.5) 8.8 g/dL (12.0-15.5) Hematocrit 26.4 % (36.0-47.0) 27.4 % (36.0-47.0) Mean Corpuscular Volume 89 fL (79-100) 91 fL (79-100) Mean Corpuscular Hemoglobin 30 pg (25-35) 29 pg (25-35) Mean Corpuscular Hemoglobin Concent 33 g/dL (31-37) 32 g/dL (31-37) Red Cell Distribution Width 16.4 % (11.5-14.5) 16.9 % (11.5-14.5) Platelet Count 382 x10^3/uL (140-400) 405 x10^3/uL (140-400) Neutrophils (%) (Auto) 80 % (31-73) 82 % (31-73) Lymphocytes (%) (Auto) 10 % (24-48) 9 % (24-48) Monocytes (%) (Auto) 7 % (0-9) 7 % (0-9) Eosinophils (%) (Auto) 4 % (0-3) 2 % (0-3) Basophils (%) (Auto) 0 % (0-3) 0 % (0-3) Neutrophils # (Auto) 12.4 x10^3uL (1.8-7.7) 15.4 x10^3uL (1.8-7.7) Lymphocytes # (Auto) 1.5 x10^3/uL (1.0-4.8) 1.7 x10^3/uL (1.0-4.8) Monocytes # (Auto) 1.1 x10^3/uL (0.0-1.1) 1.3 x10^3/uL (0.0-1.1) Eosinophils # (Auto) 0.6 x10^3/uL (0.0-0.7) 0.4 x10^3/uL (0.0-0.7) Basophils # (Auto) 0.1 x10^3/uL (0.0-0.2) 0.1 x10^3/uL (0.0-0.2) Phosphorus Level 3.7 mg/dL (2.6-4.7) Magnesium Level 1.7 mg/dL (1.8-2.4) Laboratory Tests Test 08/22/16 17:30 08/23/16 04:15 Potassium Level 3.6 mmol/L (3.5-5.1) 3.9 mmol/L (3.5-5.1) White Blood Count 18.8 x10^3/uL (4.0-11.0) Red Blood Count 3.03 x10^6/uL (3.50-5.40) Hemoglobin 8.8 g/dL (12.0-15.5) Hematocrit 27.4 % (36.0-47.0) Mean Corpuscular Volume 91 fL (79-100) Mean Corpuscular Hemoglobin 29 pg (25-35) Mean Corpuscular Hemoglobin Concent 32 g/dL (31-37) Red Cell Distribution Width 16.9 % (11.5-14.5) Platelet Count 405 x10^3/uL (140-400) Neutrophils (%) (Auto) 82 % (31-73) Lymphocytes (%) (Auto) 9 % (24-48) Monocytes (%) (Auto) 7 % (0-9) Eosinophils (%) (Auto) 2 % (0-3) Basophils (%) (Auto) 0 % (0-3) Neutrophils # (Auto) 15.4 x10^3uL (1.8-7.7) Lymphocytes # (Auto) 1.7 x10^3/uL (1.0-4.8) Monocytes # (Auto) 1.3 x10^3/uL (0.0-1.1) Eosinophils # (Auto) 0.4 x10^3/uL (0.0-0.7) Basophils # (Auto) 0.1 x10^3/uL (0.0-0.2) Sodium Level 139 mmol/L (136-145) Chloride Level 106 mmol/L (98-107) Carbon Dioxide Level 22 mmol/L (21-32) Anion Gap 11 (6-14) Blood Urea Nitrogen 19 mg/dL (7-20) Creatinine 0.7 mg/dL (0.6-1.0) Estimated GFR (Cockcroft-Gault) 91.8 Glucose Level 121 mg/dL (70-99) Calcium Level 7.7 mg/dL (8.5-10.1) Phosphorus Level 3.7 mg/dL (2.6-4.7) Magnesium Level 1.7 mg/dL (1.8-2.4) Medications Active Scripts Medications Dose Route/Sig Days Date Category No Known Medications Prior To Admisstion (Info) Each 1 Each 08/06/16 Reported Comments cxr reviewed, extensive bilateral pulmonary infiltrates with bilateral pleural effusions, partially loculated on the left. Similar findings were present on 08/17/2016. Impression . 1. Acute hypoxemic respiratory failure, multifactorial in etiology / increase secretions , repeat sputum 2. Hold CPAP/ T-PIECE today 3. Bilateral pulmonary nodules with cavitation, due to septic emboli. 4. Endocarditis. right sided, improving vegetations 5. ? chronic obstructive pulmonary disease. 6. Leukocytosis./fever, improved 7. Anemia. 8. Thrombocytopenia. off lovenox 10. Intravenous drug abuse. 11. Tobacco habituation. 12. MSSA septicemia/pneumonia/ CHF 13. g - emy in sputum Plan . Trach secretions for c/s, g - emy abx changed to cefepime cont vent support, vent setting reviewed, weaning as tolerated repeat cxr in am s/p trach antibiotics per ID, bronchodilators discussed w pt rn, rt JUAN ADDISON MD August 23, 2016 11:41
--- NOTE | 2016-08-23 12:43 | PDOC ---
Objective: Objective: Reviewed other notes. Vital Signs: Vital Signs Date Time Temp Pulse Resp B/P (MAP) Pulse Ox O2 Delivery O2 Flow Rate FiO2 08/23/16 11:07 98 Ventilator 08/23/16 09:31 24 08/23/16 06:00 122 119/70 (86) 08/23/16 04:00 100.2 100.2 08/22/16 08:28 10.0 Labs: Laboratory Tests Test 08/22/16 17:30 08/23/16 04:15 Potassium Level 3.6 mmol/L 3.9 mmol/L White Blood Count 18.8 x10^3/uL Red Blood Count 3.03 x10^6/uL Hemoglobin 8.8 g/dL Hematocrit 27.4 % Mean Corpuscular Volume 91 fL Mean Corpuscular Hemoglobin 29 pg Mean Corpuscular Hemoglobin Concent 32 g/dL Red Cell Distribution Width 16.9 % Platelet Count 405 x10^3/uL Neutrophils (%) (Auto) 82 % Lymphocytes (%) (Auto) 9 % Monocytes (%) (Auto) 7 % Eosinophils (%) (Auto) 2 % Basophils (%) (Auto) 0 % Neutrophils # (Auto) 15.4 x10^3uL Lymphocytes # (Auto) 1.7 x10^3/uL Monocytes # (Auto) 1.3 x10^3/uL Eosinophils # (Auto) 0.4 x10^3/uL Basophils # (Auto) 0.1 x10^3/uL Sodium Level 139 mmol/L Chloride Level 106 mmol/L Carbon Dioxide Level 22 mmol/L Anion Gap 11 Blood Urea Nitrogen 19 mg/dL Creatinine 0.7 mg/dL Estimated GFR (Cockcroft-Gault) 91.8 Glucose Level 121 mg/dL Calcium Level 7.7 mg/dL Phosphorus Level 3.7 mg/dL Magnesium Level 1.7 mg/dL PE: GEN: up to chair LUNGS: trach/vent HEART: RRR ABD: PEG in place NEURO/PSYCH: awake A/P: Resp failure s/p trach and PEG -- Continue same per GI. ORQUIDEA ELIZABETH August 23, 2016 12:43
[2016-08-23] MEDS: ENOXAPARIN 40 MG/0.4 ML SYRINGE. SQ SCH (13:42)
[2016-08-23] MEDS: CEFEPIME HCL 1 GM in IV NORMAL SALINE 50ML 50 ML IV SCH ×2 (13:43→21:38)
[2016-08-23] MEDS: IV 1/2 NORMAL SALINE 1,000 ML IV SCH (13:43)
[2016-08-23] MEDS ORDERED: ONDANSETRON PF 4 MG/2 ML VIAL. IV PRN (19:15)
[2016-08-23] MEDS: HALOPERIDOL LACTATE 5 MG/ML VIAL. IVP PRN (20:34)
[2016-08-24] VITALS (24 sets, daily range): BP systolic 92–137; BP diastolic 56–86
[2016-08-24] MEDS: HALOPERIDOL LACTATE 5 MG/ML VIAL. IVP PRN ×2 (03:58→22:45)
[2016-08-24] MEDS: CEFEPIME HCL 1 GM in IV NORMAL SALINE 50ML 50 ML IV SCH ×3 (05:53→22:06)
[2016-08-24] MEDS: BUDESONIDE 0.5 MG/2 ML NEBU. NEB SCH ×2 (07:09→20:22)
[2016-08-24] MEDS: IPRATRPIUM/ALBUTEROL 0.5/2.5MG 3 ML NEBU. NEB SCH ×4 (07:09→20:22)
--- NOTE | 2016-08-24 08:15 | PDOC ---
PULMONARY PROGRESS NOTES Subjective on vent, alert has back pain, mod trach secretion didnt tolerate weaning yesterday Vitals Vital Signs Date Time Temp Pulse Resp B/P (MAP) Pulse Ox O2 Delivery O2 Flow Rate FiO2 08/24/16 07:11 97 Ventilator 08/24/16 06:00 114 22 107/62 (77) 08/24/16 05:15 10.0 08/24/16 04:00 98.8 98.8 Comments ros as mentioned as above other sys otherwise neg ROS: No Chest Pain, No Abdominal Pain General: Alert HEENT: Other (nc at perrl. poor dentition, nose clear) Lungs: Crackles, Other (dull at bases. ) Cardiovascular: S1, S2, Other Abdomen: Soft, Non-tender, Other (no mass) Neuro Exam: Alert Extremities: Other (edema) Skin: Warm Labs Laboratory Tests Test 08/22/16 17:30 08/23/16 04:15 Potassium Level 3.6 mmol/L (3.5-5.1) 3.9 mmol/L (3.5-5.1) White Blood Count 18.8 x10^3/uL (4.0-11.0) Red Blood Count 3.03 x10^6/uL (3.50-5.40) Hemoglobin 8.8 g/dL (12.0-15.5) Hematocrit 27.4 % (36.0-47.0) Mean Corpuscular Volume 91 fL (79-100) Mean Corpuscular Hemoglobin 29 pg (25-35) Mean Corpuscular Hemoglobin Concent 32 g/dL (31-37) Red Cell Distribution Width 16.9 % (11.5-14.5) Platelet Count 405 x10^3/uL (140-400) Neutrophils (%) (Auto) 82 % (31-73) Lymphocytes (%) (Auto) 9 % (24-48) Monocytes (%) (Auto) 7 % (0-9) Eosinophils (%) (Auto) 2 % (0-3) Basophils (%) (Auto) 0 % (0-3) Neutrophils # (Auto) 15.4 x10^3uL (1.8-7.7) Lymphocytes # (Auto) 1.7 x10^3/uL (1.0-4.8) Monocytes # (Auto) 1.3 x10^3/uL (0.0-1.1) Eosinophils # (Auto) 0.4 x10^3/uL (0.0-0.7) Basophils # (Auto) 0.1 x10^3/uL (0.0-0.2) Sodium Level 139 mmol/L (136-145) Chloride Level 106 mmol/L (98-107) Carbon Dioxide Level 22 mmol/L (21-32) Anion Gap 11 (6-14) Blood Urea Nitrogen 19 mg/dL (7-20) Creatinine 0.7 mg/dL (0.6-1.0) Estimated GFR (Cockcroft-Gault) 91.8 Glucose Level 121 mg/dL (70-99) Calcium Level 7.7 mg/dL (8.5-10.1) Phosphorus Level 3.7 mg/dL (2.6-4.7) Magnesium Level 1.7 mg/dL (1.8-2.4) Medications Active Scripts Medications Dose Route/Sig Days Date Category No Known Medications Prior To Admisstion (Info) Each 1 Each 08/06/16 Reported Comments cxr reviewed, extensive bilateral pulmonary infiltrates with bilateral pleural effusions, partially loculated on the left. Similar findings were present on 08/17/2016. Impression . 1. Acute hypoxemic respiratory failure, multifactorial in etiology / increase secretions , repeat sputum 2. Hold CPAP/ T-PIECE today 3. Bilateral pulmonary nodules with cavitation, due to septic emboli. 4. Endocarditis. right sided, improving vegetations 5. ? chronic obstructive pulmonary disease. 6. Leukocytosis./fever, improved 7. Anemia. 8. Thrombocytopenia. off lovenox 10. Intravenous drug abuse. 11. Tobacco habituation. 12. MSSA septicemia/pneumonia/ CHF 13. g - emy in sputum Plan . Trach secretions for c/s, g - emy, cont vent support, vent setting reviewed, weaning as tolerated repeat cxr, reviewed s/p trach antibiotics per ID, cont abx on cefepime now bronchodilators keep I<O discussed w pt rn, rt JUAN ADDISON MD August 24, 2016 08:15
--- NOTE | 2016-08-24 08:38 | PDOC ---
Infectious Disease Note Subjective Subjective Sputum culture obtained for increase tracheal secretions and weaning intolerance per pulmonary, 08/22 Remains on vent via trach. FiO2 35%. No increase O2 demands Tube feedings via g-tube. + diarrhea. Rectal tube in place + nausea w/o vomiting Denies chest discomfort No fever last 24 hours ROS ROS Limited Vital Sign Vital Signs Vital Signs Date Time Temp Pulse Resp B/P (MAP) Pulse Ox O2 Delivery O2 Flow Rate FiO2 08/24/16 07:11 97 Ventilator 08/24/16 06:00 114 22 107/62 (77) 08/24/16 05:15 10.0 08/24/16 04:00 98.8 98.8 Physical Exam PHYSICAL EXAM GENERAL: Awake, calm HENT: Pupils equally round. + eye contact, Oral cavity pink, dry, poor dentition , + decay NECK: Trach, + secretions LUNGS: rhonchi and an expiratory harsh sound RLL HEART: S1S2 ABD: Mildly distended, soft, BS present. + rectal tube : [place] EXT: Generalized edema. 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 clean Labs Micro Sputum (08/22) GRAM STAIN Final WBCS MANY GRAM NEGATIVE RODS MANY SQUAMOUS EPITHELIAL CELLS OCCASIONAL Objective Assessment GNR in sputum (08/22) Fever Leukocytosis Anasarca Acute anemia s/p PRBCs, 08/16, 08/20 S/p Trach/PEG 08/13 MSSA sepsis 08/01 ([facility]) -Repeat BC positive, 08/05 & 08/07. Neg 08/09 Right-sided bacterial endocarditis. -TTE. 3.0 x 2.0cm mobile mass TV Multiple pulmonary nodules/septic emboli Acute Resp failure - Intubated ? developing ARDS. S/p Bronch 08/08. MSSA IV drug use. Hep C Ileus Renal insufficiency. Severe thrombocytopenia. improved Hepatosplenomegaly on CT Plan Plan of Care Nafcillin changed to cefepime to cover for GNR in sputum, await ID Patient will need a total of six weeks of IV abx to treat endocarditis/ bacteremia f/u today's chest x-ray Monitor WBC, temp in am Supportive care Attending Co-Sign Attending Co-Sign The patient was seen and interviewed as well as examined at the bedside. The chart was reviewed. The case was discussed. Agree with the plan of care. JAZMIN SOUSA APRN August 24, 2016 08:38 KAYLYNN SHAY MD August 24, 2016 12:14
[2016-08-24] MEDS ORDERED: ALPRAZolam 0.25 MG TABLET PEG SCH (09:00)
--- NOTE | 2016-08-24 09:33 | PDOC ---
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, IV drug use -Resp failure on Vent -Polysubstance abuse -Hep C, right -Tobacco use -20lb weight loss over the last couple of months -Renal insufficiency -Pneumonia -Anemia requiring transfusions severe malnutrition, was POA History of Present Illness History of Present Illness lying in bed, on vent to trach less distress today, more calm appearance some redness in flaquito area, Vitals Vitals Vital Signs Date Time Temp Pulse Resp B/P (MAP) Pulse Ox O2 Delivery O2 Flow Rate FiO2 08/24/16 09:00 95 Ventilator 08/24/16 06:00 114 22 107/62 (77) 08/24/16 05:15 10.0 08/24/16 04:00 98.8 98.8 Physical Exam General: Alert, Cooperative, No acute distress Heart: Normal S1, Normal S2, No murmurs Lungs: Crackles Abdomen: Normal bowel sounds, Other (Hepatosplenomegaly present) Extremities: No cyanosis, No edema Skin: No breakdown, No significant lesion Review of Systems Review of Systems anxiety concomfortable follows commands and seems to understand better today Assessment and Plan Assessmemt and Plan try benadryl prn hs seroquel 50 jared HS try to avoid IV ativan if possible wean if able to stay calm and awake Problems: Comment Review of Relevant I have reviewed the following items shanta (where applicable) has been applied. Labs Laboratory Tests Test 08/22/16 17:30 08/23/16 04:15 Potassium Level 3.6 mmol/L (3.5-5.1) 3.9 mmol/L (3.5-5.1) White Blood Count 18.8 x10^3/uL (4.0-11.0) Red Blood Count 3.03 x10^6/uL (3.50-5.40) Hemoglobin 8.8 g/dL (12.0-15.5) Hematocrit 27.4 % (36.0-47.0) Mean Corpuscular Volume 91 fL (79-100) Mean Corpuscular Hemoglobin 29 pg (25-35) Mean Corpuscular Hemoglobin Concent 32 g/dL (31-37) Red Cell Distribution Width 16.9 % (11.5-14.5) Platelet Count 405 x10^3/uL (140-400) Neutrophils (%) (Auto) 82 % (31-73) Lymphocytes (%) (Auto) 9 % (24-48) Monocytes (%) (Auto) 7 % (0-9) Eosinophils (%) (Auto) 2 % (0-3) Basophils (%) (Auto) 0 % (0-3) Neutrophils # (Auto) 15.4 x10^3uL (1.8-7.7) Lymphocytes # (Auto) 1.7 x10^3/uL (1.0-4.8) Monocytes # (Auto) 1.3 x10^3/uL (0.0-1.1) Eosinophils # (Auto) 0.4 x10^3/uL (0.0-0.7) Basophils # (Auto) 0.1 x10^3/uL (0.0-0.2) Sodium Level 139 mmol/L (136-145) Chloride Level 106 mmol/L (98-107) Carbon Dioxide Level 22 mmol/L (21-32) Anion Gap 11 (6-14) Blood Urea Nitrogen 19 mg/dL (7-20) Creatinine 0.7 mg/dL (0.6-1.0) Estimated GFR (Cockcroft-Gault) 91.8 Glucose Level 121 mg/dL (70-99) Calcium Level 7.7 mg/dL (8.5-10.1) Phosphorus Level 3.7 mg/dL (2.6-4.7) Magnesium Level 1.7 mg/dL (1.8-2.4) Microbiology 08/12/16 Blood Fungal Culture - Preliminary, Resulted 08/12/16 Fungal Culture Result 1 - Preliminary, Resulted 08/22/16 Gram Stain - Final, Complete Medications Current Medications Amino Acids/ Glycerin/ Electrolytes 1,000 ml @ 100 mls/hr Q10H IV Last administered on 08/05/16 02:40; Start 08/02/16 at 03:00; Stop 08/05/16 at 08:50 ; Status DC Morphine Sulfate 2 mg PRN Q2HR PRN IV SEVERE PAIN Last administered on 11:59; Start 08/02/16 at 02:30; Stop 08/02/16 at 13:28; Status DC Daptomycin 220 mg/ Sodium Chloride 50 ml @ 100 mls/hr Q24H IV ; Start 08/02/16 at 09:15; Stop 08/02/16 at 15:58; Status DC Cefepime HCl 1 gm/ Sodium Chloride 50 ml @ 100 mls/hr Q12HR IV Last administered on 08/04/16 08:10; Start 08/02/16 at 10:00; Stop 08/04/16 at 10:33 ; Status DC Daptomycin 220 mg/ Sodium Chloride 50 ml @ 100 mls/hr ONCE ONCE IV ; Start at 10:00; Stop 08/02/16 at 10:29; Status Cancel Potassium Chloride (Klor-Con) 40 meq 1X ONCE PO Last administered on 10:17; Start 08/02/16 at 09:45; Stop 08/02/16 at 09:46; Status DC Daptomycin 220 mg/ Sodium Chloride 50 ml @ 100 mls/hr Q24H IV Last administered on 08/03/16 09:43; Start 08/02/16 at 10:15; Stop 08/03/16 at 10:29 ; Status DC Potassium Chloride (Klor-Con) 40 meq 1X ONCE PO Last administered on 12:57; Start 08/02/16 at 12:30; Stop 08/02/16 at 12:36; Status DC Morphine Sulfate 5 mg PRN Q2HRS PRN IV MODERATE TO SEVERE PAIN Last administered on 08/04/16 08:16; Start 08/02/16 at 13:30 Morphine Sulfate 8 mg PRN Q2HRS PRN IV MODERATE TO SEVERE PAIN Last administered on 08/04/16 14:58; Start 08/02/16 at 13:30 Acetaminophen (Tylenol) 650 mg PRN Q6HRS PRN PO TEMP GREATER THAN 100.4 Last administered on 08/10/16 00:18; Start 08/02/16 at 14:45 Lactated Ringer's 1,000 ml @ 50 mls/hr Q20H IV ; Start 08/05/16 at 07:00; Stop 08/05/16 at 18:13; Status DC Daptomycin 220 mg/ Sodium Chloride 50 ml @ 100 mls/hr Q24H IV ; Start 08/03/16 at 11:00; Status Cancel Potassium Chloride (Klor-Con) 40 meq 1X ONCE PO Last administered on 17:41; Start 08/02/16 at 17:15; Stop 08/02/16 at 17:18; Status DC Potassium Chloride (Klor-Con) 40 meq BIDWMEALS PO ; Start 08/03/16 at 08:00; Stop 08/03/16 at 11:08; Status DC Morphine Sulfate 5 mg 1X ONCE IV Last administered on 08/02/16 21:45; Start 08/02/16 at 21:30; Stop 08/02/16 at 21:33; Status DC Lorazepam (Ativan) 1 mg 1X ONCE IV Last administered on 08/02/16 21:30; Start 08/02/16 at 21:30; Stop 08/02/16 at 21:33; Status DC Acetaminophen (Acetaminophen Supp) 650 mg PRN Q6HRS PRN [place] MILD PAIN / TEMP Last administered on 08/13/16 03:13; Start 08/03/16 at 01:15 Albuterol/ Ipratropium (Duoneb) 3 ml RTQID NEB Last administered on 08/24/16 07 :09; Start 08/03/16 at 08:00 Budesonide (Pulmicort) 0.5 mg RTBID NEB Last administered on 08/24/16 07:09; Start 08/03/16 at 08:00 Pantoprazole Sodium (Protonix Vial) 40 mg 1X ONCE IVP Last administered on 10:06; Start 08/03/16 at 08:00; Stop 08/03/16 at 08:01; Status DC Daptomycin 320 mg/ Sodium Chloride 50 ml @ 100 mls/hr Q24H IV Last administered on 08/04/16 10:03; Start 08/04/16 at 10:00; Stop 08/04/16 at 10:33 ; Status DC Lorazepam (Ativan) 0.5 mg PRN Q6HRS PRN IV ANXIETY / AGITATION Last administered on 08/04/16 09:12; Start 08/03/16 at 11:15; Stop 08/07/16 at 11:02 ; Status DC Lorazepam (Ativan) 0.5 mg 1X ONCE IV Last administered on 08/04/16 10:00; Start 08/04/16 at 10:00; Stop 08/04/16 at 10:01; Status DC Morphine Sulfate 5 mg 1X ONCE IV Last administered on 08/04/16 10:00; Start 08/04/16 at 10:00; Stop 08/04/16 at 10:01; Status DC Lorazepam (Ativan) 0.5 mg PRN Q4HRS PRN IV ANXIETY / AGITATION Last administered on 08/24/16 01:35; Start 08/04/16 at 10:00 Nafcillin Sodium 2 gm/Sodium Chloride 100 ml @ 200 mls/hr Q4HRS IV Last administered on 08/09/16 10:10; Start 08/04/16 at 12:00; Stop 08/09/16 at 11:49 ; Status DC Propofol 100 ml @ As Directed STK-MED ONCE IV ; Start 08/04/16 at 16:10; Stop 08/04/16 at 16:11; Status DC Succinylcholine Chloride (Anectine) 200 mg STK-MED ONCE .ROUTE ; Start 08/04/16 at 16:14; Stop 08/04/16 at 16:15; Status DC Succinylcholine Chloride (Anectine) 200 mg 1X ONCE IV ; Start 08/04/16 at 16:45 ; Stop 08/04/16 at 16:46; Status DC Propofol 100 ml @ 0 mls/hr CONT PRN IV SEE I/O RECORD Last administered on 08/17 10:18; Start 08/04/16 at 16:45 Lorazepam (Ativan) 0.5 mg 1X ONCE IV Last administered on 08/04/16 16:45; Start 08/04/16 at 16:45; Stop 08/04/16 at 16:46; Status DC Morphine Sulfate 5 mg 1X ONCE IV Last administered on 08/04/16 16:44; Start 08/04/16 at 16:45; Stop 08/04/16 at 16:46; Status DC Fentanyl Citrate 30 ml @ 0 mls/hr CONT PRN IV PROTOCOL Last administered on 08/24 04:45; Start 08/04/16 at 16:45 Chlorhexidine Gluconate (Peridex) 15 ml BID MM Last administered on 08/17/16 10:18; Start 08/04/16 at 21:00; Stop 08/17/16 at 19:36; Status DC Famotidine (Pepcid) 20 mg BID IVP Last administered on 08/23/16 20:34; Start at 17:00 Sodium Chloride 1,000 ml @ 100 mls/hr Q10H IV Last administered on 08/07/16 04:35; Start 08/05/16 at 09:00; Stop 08/07/16 at 08:59; Status DC Succinylcholine Chloride (Anectine) 200 mg STK-MED ONCE .ROUTE ; Start 08/04/16 at 16:00; Stop 08/05/16 at 12:32; Status DC Lorazepam (Ativan) 2 mg 1X ONCE IV Last administered on 08/05/16 20:43; Start 08/05/16 at 21:00; Stop 08/05/16 at 21:01; Status DC Furosemide (Lasix) 40 mg 1X PRN PRN IV blood transfusion Last administered on 14:17; Start 08/06/16 at 08:00; Stop 08/07/16 at 07:59; Status DC Sodium Bicarbonate 50 meq 1X ONCE IV Last administered on 08/06/16 14:06; Start 08/06/16 at 12:00; Stop 08/06/16 at 12:01; Status DC Calcium Chloride 1,000 mg STK-MED ONCE IV ; Start 08/04/16 at 12:00; Stop at 15:13; Status DC Epinephrine HCl (Epinephrine Syringe) 2 mg STK-MED ONCE .ROUTE ; Start 08/04/16 at 12:00; Stop 08/06/16 at 15:13; Status DC Sodium Bicarbonate 100 meq STK-MED ONCE .ROUTE ; Start 08/04/16 at 12:00; Stop 08/06/16 at 15:13; Status DC Amino Acids/ Glycerin/ Electrolytes 1,000 ml @ 100 mls/hr Q10H IV Last administered on 08/08/16 12:33; Start 08/07/16 at 10:00; Stop 08/09/16 at 09:42 ; Status DC Enoxaparin Sodium (Lovenox 40mg Syringe) 40 mg Q24H SQ Last administered on 13:10; Start 08/07/16 at 13:00; Stop 08/10/16 at 10:43; Status DC Vecuronium Stanley (Norcuron Bolus) 10 mg STK-MED ONCE IV ; Start 08/07/16 at 13 :56; Stop 08/07/16 at 13:57; Status DC Vecuronium Stanley (Norcuron Bolus) 6 mg 1X ONCE IV Last administered on 14:06; Start 08/07/16 at 14:00; Stop 08/07/16 at 14:05; Status DC Sodium Bicarbonate 50 meq 1X ONCE IV Last administered on 08/08/16 11:46; Start 08/08/16 at 11:45; Stop 08/08/16 at 11:46; Status DC Nystatin (Nystop) 1 james BID TP Last administered on 08/23/16 21:39; Start 08/08 at 21:00 Linezolid 300 ml @ 300 mls/hr Q12HR IV Last administered on 08/14/16 20:51; Start 08/09/16 at 09:00; Stop 08/15/16 at 07:21; Status DC Sodium Chloride 1,000 ml @ 20 mls/hr Q24H IV Last administered on 08/23/16 13: 43; Start 08/09/16 at 09:45 Sodium Bicarbonate 150 meq/Dextrose 1,150 ml @ 100 mls/hr 1X ONCE IV Last administered on 08/09/16 12:25; Start 08/09/16 at 11:30; Stop 08/09/16 at 22:59 ; Status DC Piperacillin Sod/ Tazobactam Sod (Zosyn Per Pharmacy) 1 each PRN DAILY PRN MC SEE COMMENTS; Start 08/09/16 at 12:00; Stop 08/14/16 at 07:40; Status DC Piperacillin Sod/ Tazobactam Sod 4.5 gm/Sodium Chloride 100 ml @ 200 mls/hr Q6HRS IV Last administered on 08/14/16 05:58; Start 08/09/16 at 12:30; Stop at 07:33; Status DC Vecuronium Stanley (Norcuron Bolus) 5 mg PRN Q4HRS PRN IV INCREASED RESPIRATORY ,NOT RELI Last administered on 08/11/16 02:56; Start 08/09/16 at 13:30 Potassium Chloride 50 ml @ 100 mls/hr Q1H IV ; Start 08/10/16 at 09:30; Stop at 10:59; Status Cancel Potassium Chloride 100 ml @ 100 mls/hr Q1H IV Last administered on 08/10/16 16:28; Start 08/10/16 at 10:30; Stop 08/10/16 at 14:29; Status DC Potassium Chloride (KCl Oral Soln) 60 meq 1X ONCE PEG Last administered on 11:16; Start 08/10/16 at 11:00; Stop 08/10/16 at 11:01; Status DC Sodium Bicarbonate 150 meq/Dextrose 1,150 ml @ 100 mls/hr [id number] IV Last administered on 08/10/16 11:14; Start 08/10/16 at 11:00; Stop 08/10/16 at 22:29 ; Status DC Enoxaparin Sodium (Lovenox 40mg Syringe) 40 mg Q24H SQ ; Start 08/10/16 at 13:00 ; Stop 08/10/16 at 13:00; Status DC Micafungin Sodium 100 mg/Dextrose 100 ml @ 100 mls/hr Q24H IV Last administered on 08/13/16 16:26; Start 08/11/16 at 16:00; Stop 08/14/16 at 07:33 ; Status DC Furosemide (Lasix) 40 mg 1X ONCE IVP Last administered on 08/12/16 08:38; Start 08/12/16 at 08:00; Stop 08/12/16 at 08:06; Status DC Morphine Sulfate 1 mg PRN Q10MIN PRN IV SEVERE PAIN; Start 08/13/16 at 07:00; Stop 08/14/16 at 06:59; Status DC Lactated Ringer's 1,000 ml @ 0 mls/hr Q0M IV ; Start 08/13/16 at 07:00; Stop at 18:59; Status DC Lidocaine HCl 2 ml PRN 1X PRN ID PRIOR TO IV START; Start 08/13/16 at 07:00; Stop 08/14/16 at 06:59; Status DC Hydromorphone HCl (Dilaudid) 0.5 mg PRN Q10MIN PRN IV SEV PAIN, Second choice; Start 08/13/16 at 07:00; Stop 08/14/16 at 06:59; Status DC Prochlorperazine Edisylate (Compazine) 5 mg PACU PRN PRN IV NAUSEA, MRX1; Start 08/13/16 at 07:00; Stop 08/14/16 at 06:59; Status DC Morphine Sulfate 1 mg PRN Q10MIN PRN IV SEVERE PAIN; Start 08/13/16 at 07:00; Stop 08/14/16 at 06:59; Status DC Lactated Ringer's 1,000 ml @ 0 mls/hr Q0M IV ; Start 08/13/16 at 07:00; Stop at 18:59; Status DC Lidocaine HCl 2 ml PRN 1X PRN ID PRIOR TO IV START; Start 08/13/16 at 07:00; Stop 08/14/16 at 06:59; Status DC Hydromorphone HCl (Dilaudid) 0.5 mg PRN Q10MIN PRN IV SEV PAIN, Second choice; Start 08/13/16 at 07:00; Stop 08/14/16 at 06:59; Status DC Prochlorperazine Edisylate (Compazine) 5 mg PACU PRN PRN IV NAUSEA, MRX1; Start 08/13/16 at 07:00; Stop 08/14/16 at 06:59; Status DC Potassium Chloride 50 ml @ 50 mls/hr Q1H IV Last administered on 08/13/16 07: 57; Start 08/13/16 at 07:00; Stop 08/13/16 at 08:59; Status DC Rocuronium Stanley (Zemuron) 50 mg STK-MED ONCE .ROUTE ; Start 08/13/16 at 12:50 ; Stop 08/13/16 at 12:51; Status DC Propofol 20 ml @ As Directed STK-MED ONCE IV ; Start 08/13/16 at 12:53; Stop at 12:54; Status DC Sevoflurane (Ultane) 30 ml STK-MED ONCE IH ; Start 08/13/16 at 14:04; Stop 08/13 at 14:05; Status DC Albumin Human 250 ml @ 100 mls/hr 1X ONCE IV Last administered on 08/13/16t 23:38; Start 08/13/16 at 18:00; Stop 08/13/16 at 20:29; Status DC Albumin Human 500 ml @ 100 mls/hr 1X ONCE IV Last administered on 08/13/16 18:15; Start 08/13/16 at 18:00; Stop 08/13/16 at 22:59; Status DC Potassium Chloride 50 ml @ 50 mls/hr Q1H IV Last administered on 08/14/16 10: 46; Start 08/14/16 at 08:00; Stop 08/14/16 at 09:59; Status DC Nafcillin Sodium 2 gm/Sodium Chloride 100 ml @ 200 mls/hr Q4HRS IV Last administered on 08/23/16 08:51; Start 08/14/16 at 08:00; Stop 08/23/16 at 10:44; Status DC Enoxaparin Sodium (Lovenox 40mg Syringe) 40 mg Q24H SQ Last administered on 08/23 13:42; Start 08/14/16 at 12:00 Potassium Chloride (KCl Oral Soln) 40 meq 1X ONCE PEG Last administered on 07:54; Start 08/16/16 at 07:00; Stop 08/16/16 at 07:01; Status DC Potassium Chloride (KCl Oral Soln) 40 meq 1X ONCE PEG Last administered on 14:01; Start 08/16/16 at 12:00; Stop 08/16/16 at 12:01; Status DC Magnesium Sulfate/ Dextrose 50 ml @ 25 mls/hr 1X ONCE IV Last administered on 08/16/16 17:14; Start 08/16/16 at 16:30; Stop 08/16/16 at 18:29; Status DC Potassium Chloride (Klor-Con) 40 meq 1X ONCE PO ; Start 08/17/16 at 13:30; Stop 08/17/16 at 13:31; Status Cancel Potassium Chloride (KCl Oral Soln) 40 meq 1X ONCE PO Last administered on 08/17 15:34; Start 08/17/16 at 13:30; Stop 08/17/16 at 14:27; Status DC Potassium Chloride 100 ml @ 100 mls/hr PRN Q1HR PRN IV HYPOKALEMIA PER ICU PROTOCOL; Start 08/17/16 at 13:30 Potassium Chloride 50 ml @ 25 mls/hr PRN Q2HR PRN IV HYPOKALEMIA PER ICU PROTOCOL Last administered on 08/21/16 13:29; Start 08/17/16 at 13:30; Stop 08/21 at 13:34; Status DC Potassium Chloride (Klor-Con) 40 meq PRN Q2HR PRN PO HYPOKALEMIA PER ICU PROTOCOL; Start 08/17/16 at 13:30 Potassium Chloride 100 ml @ 100 mls/hr PRN Q1HR PRN IV HYPOKALEMIA PER ICU PROTOCOL; Start 08/17/16 at 13:30 Potassium Chloride 50 ml @ 25 mls/hr PRN Q2HR PRN IV HYPOKALEMIA PER ICU PROTOCOL; Start 08/17/16 at 13:30 Potassium Chloride (Klor-Con) 40 meq PRN Q2HR PRN PO HYPOKALEMIA PER ICU PROTOCOL; Start 08/17/16 at 13:30 Potassium Chloride 100 ml @ 100 mls/hr PRN Q1HR PRN IV HYPOKALEMIA PER ICU PROTOCOL; Start 08/17/16 at 13:30 Potassium Chloride 50 ml @ 25 mls/hr PRN Q2HR PRN IV HYPOKALEMIA PER ICU PROTOCOL; Start 08/17/16 at 14:00 Magnesium Sulfate/ Dextrose 100 ml @ 50 mls/hr PRN DAILY PRN IV HYPOMAGNESIA PER ICU PROTOCOL Last administered on 08/20/16 22:26; Start 08/18/16 at 09:00 Potassium Phos/ Sodium Phos (Phos-Nak) 1 pkt BID PO ; Start 08/17/16 at 21:00; Stop 08/18/16 at 09:01; Status DC Sodium Phosphate 40 mmol/Dextrose 263.3333 ml @ 62.5 mls/hr PRN 1X PRN IV HYPOPHOSP PER ICU PROTOCOL; Start 08/17/16 at 13:30 Potassium Chloride (KCl Oral Soln) 40 meq 1X ONCE PEG Last administered on 08/19 07:57; Start 08/19/16 at 07:45; Stop 08/19/16 at 07:46; Status DC Potassium Chloride (KCl Oral Soln) 40 meq 1X ONCE PEG Last administered on 08/19 11:36; Start 08/19/16 at 12:00; Stop 08/19/16 at 12:01; Status DC Alprazolam (Xanax) 0.5 mg 1X ONCE PO Last administered on 08/19/16 11:35; Start 08/19/16 at 11:15; Stop 08/19/16 at 11:16; Status DC Alprazolam (Xanax) 0.5 mg TID PEG Last administered on 08/23/16 20:34; Start at 15:00; Stop 08/24/16 at 08:11; Status DC Potassium Chloride 50 ml @ 50 mls/hr Q1H IV Last administered on 08/22/16 09:40 ; Start 08/22/16 at 08:30; Stop 08/22/16 at 10:29; Status DC Haloperidol Lactate (Haldol) 5 mg PRN Q6HRS PRN IVP AGITATION Last administered on 08/24/16 03:58; Start 08/22/16 at 09:15 Haloperidol Lactate (Haldol) 2 mg 1X ONCE IVP ; Start 08/22/16 at 09:15; Stop at 09:27; Status DC Magnesium Sulfate/ Dextrose 100 ml @ 50 mls/hr DAILY IV Last administered on 08:51; Start 08/23/16 at 09:00; Stop 08/26/16 at 08:59 Albumin Human 100 ml @ 100 mls/hr BID94 IV Last administered on 08/23/16 17:25 ; Start 08/23/16 at 09:00; Stop 08/23/16 at 16:59; Status DC Furosemide (Lasix) 40 mg BID94 IVP Last administered on 08/23/16 17:26; Start 08/23/16 at 09:00; Stop 08/23/16 at 16:01; Status DC Vitamin A/Vitamin D (Vitamin A & D Ointment) 1 james PRN Q1HR PRN TP SKIN PROTECTION; Start 08/23/16 at 08:45 Cefepime HCl 1 gm/ Sodium Chloride 50 ml @ 100 mls/hr Q8HRS IV Last administered on 08/24/16 05:53; Start 08/23/16 at 14:00 Ondansetron HCl (Zofran) 4 mg PRN Q6HRS PRN IV NAUSEA/VOMITING Last administered on 08/23/16 19:27; Start 08/23/16 at 19:15 Alprazolam (Xanax) 0.25 mg TID PEG ; Start 08/24/16 at 09:00; Stop 08/24/16 at 09: 28; Status DC Diphenhydramine HCl (Benadryl) 25 mg HS PO ; Start 08/24/16 at 21:00; Stop at 21:00; Status DC Zolpidem Tartrate (Ambien) 5 mg PRN QHS PRN PO INSOMNIA; Start 08/24/16 at 08:15 Alprazolam (Xanax) 0.5 mg TID PEG ; Start 08/24/16 at 09:00 Diphenhydramine HCl (Benadryl) 25 mg PRN QHS PRN PO sleep; Start 08/24/16 at 21: 00 Quetiapine Fumarate (SEROquel) 50 mg HS PO ; Start 08/24/16 at 21:00 Active Scripts Active Reported No Known Medications Prior To Admisstion (Info) Each 1 Each Vitals/I & O Vital Sign - Last 24 Hours 08/23/16 08/23/16 08/23/16 08/23/16 10:00 11:00 11:07 12:00 Pulse 124 120 Resp 25 B/P (MAP) 122/77 (92) 121/78 (92) Pulse Ox 98 99 98 O2 Delivery Ventilator Ventilator Ventilator Mechanical Ventilator 08/23/16 08/23/16 08/23/16 08/23/16 12:00 13:00 13:24 14:00 Temp 98.5 98.5 Pulse 116 119 119 Resp 24 24 25 B/P (MAP) 118/69 (85) 106/58 (74) 101/57 (72) Pulse Ox 97 96 97 98 O2 Delivery Ventilator Ventilator Ventilator Ventilator 08/23/16 08/23/16 08/23/16 08/23/16 15:10 15:13 16:00 16:00 Temp 98.5 98.5 Pulse 97 119 Resp 29 B/P (MAP) 85/64 (71) 131/83 (99) Pulse Ox 96 97 97 O2 Delivery Ventilator Ventilator Mechanical Ventilator Ventilator 08/23/16 08/23/16 08/23/16 08/23/16 17:00 17:15 18:00 19:00 Temp 98.9 98.9 Pulse 122 117 116 Resp 23 23 B/P (MAP) 116/72 (87) 109/80 (90) 119/79 (92) Pulse Ox 98 97 98 98 O2 Delivery Ventilator Ventilator Ventilator Ventilator 08/23/16 08/23/16 08/23/16 08/23/16 19:30 19:34 19:46 20:00 Pulse 116 Resp 23 B/P (MAP) 100/66 (77) Pulse Ox 98 98 97 O2 Delivery Ventilator Mechanical Ventilator Ventilator O2 Flow Rate 10.0 08/23/16 08/23/16 08/23/16 08/23/16 21:00 22:00 23:00 23:35 Pulse 116 116 112 Resp B/P (MAP) 109/65 (80) 104/61 (75) 103/62 (76) Pulse Ox 100 98 98 98 O2 Delivery Ventilator Ventilator Ventilator Ventilator 08/24/16 08/24/16 08/24/16 08/24/16 00:00 00:27 01:00 01:45 Temp 99.1 99.1 Pulse 112 112 Resp B/P (MAP) 109/64 (79) 100/60 (73) Pulse Ox 97 98 97 O2 Delivery Ventilator Mechanical Ventilator Ventilator Ventilator 08/24/16 08/24/16 08/24/16 08/24/16 02:00 03:00 03:42 04:00 Temp 98.8 98.8 Pulse 118 110 116 Resp B/P (MAP) 110/69 (83) 92/56 (68) 110/69 (83) Pulse Ox 97 98 95 95 O2 Delivery Ventilator Ventilator Ventilator Ventilator 08/24/16 08/24/16 08/24/16 08/24/16 04:15 04:45 05:00 05:15 Pulse 114 Resp 22 B/P (MAP) 102/61 (75) Pulse Ox 97 97 97 O2 Delivery Mechanical Ventilator Ventilator O2 Flow Rate 10.0 10.0 08/24/16 08/24/16 08/24/16 08/24/16 05:43 06:00 07:11 09:00 Pulse 114 Resp 22 B/P (MAP) 107/62 (77) Pulse Ox 96 97 97 95 O2 Delivery Ventilator Ventilator Ventilator Ventilator Intake and Output 08/23/16 08/23/16 08/24/16 15:00 23:00 07:00 Intake Total 604 ml 1432 ml 1246 ml Output Total 2000 ml 1495 ml 1050 ml Balance -1396 ml -63 ml 196 ml Nutrition Consultation Dietary Evaluation: Recommendations by RD: PPN/TPN Comments: Pt is s/p PEG placement 08/14 Rec. continue TF's with Isosource HN, goal rate 45 ml/hr flushes 150ml q6h Continue 1 packet prostat BID at 8AM and 6PM for optimal protein intake Expected Outcomes/Goals: tolerate the TF's via PEG at goal rate meet 75% estimated nutrition needs Malnutrition Findings: Reduced Grant Manager Strength: N/A Reduced Grant Manager Strength (Non-Sev: N/A Malnutrition related to morbid: No Weight Status: Overweight Fluid Accumulation (N/A): N/A MUNA MILLER MD August 24, 2016 09:33
[2016-08-24] MEDS: FAMOTIDINE 20 MG/2 ML VIAL IVP SCH ×2 (10:00→20:50)
[2016-08-24] MEDS: MAGNESIUM SULFATE 4GM 100 ML IV SCH (10:00)
[2016-08-24] MEDS: ALPRAZolam 0.5 MG TABLET PEG SCH ×3 (10:01→20:50)
[2016-08-24] MEDS: NYSTATIN TOPICAL POWDER 15GM BOTTLE. TP SCH ×2 (10:02→22:07)
[2016-08-24] MEDS: ACETAMINOPHEN 325 MG TABLET. PO PRN (10:02)
--- NOTE | 2016-08-24 10:06 | RAD ---
Indication difficulty breathing. A single view of the chest was obtained and is compared to an examination 2 days earlier. Extensive pulmonary infiltrates persist. Infiltrate in the right lung similar to slightly worse. Loculated fluid on the left is similar. A right pleural effusion is likely. Left PICC line and tracheostomy tube is noted. IMPRESSION: Extensive pulmonary infiltrates. Infiltrate associated with the right lung is similar to slightly worse
[2016-08-24] MEDS: ENOXAPARIN 40 MG/0.4 ML SYRINGE. SQ SCH (16:33)
[2016-08-24] MEDS: IV 1/2 NORMAL SALINE 1,000 ML IV SCH (16:33)
[2016-08-24] MEDS: QUEtiapine 25 MG TABLET. PO SCH (20:50)
[2016-08-24] MEDS ORDERED: diphenhydrAMINE HCL 25 MG CAPSULE PO SCH (21:00)
[2016-08-25] VITALS (24 sets, daily range): BP systolic 103–136; BP diastolic 66–84
[2016-08-25] MEDS: CEFEPIME HCL 1 GM in IV NORMAL SALINE 50ML 50 ML IV SCH ×3 (06:06→20:50)
[2016-08-25 06:27] LABS: BASO # 0.1 x10^3/uL (0.0-0.2); BASO % 0 % (0-3); EOS % 2 % (0-3); HEMATOCRIT 25.1 % (36.0-47.0); HEMOGLOBIN 8.1 g/dL (12.0-15.5); LYMPH # 1.6 x10^3/uL (1.0-4.8); LYMPH % 9 % (24-48); MEAN CORPUSCULAR HEMOGLOBIN 29 pg (25-35); MEAN CORPUSCULAR HGB CONC 32 g/dL (31-37); MEAN CORPUSCULAR VOLUME 91 fL (79-100); MONO % 7 % (0-9); NEUT % 81 % (31-73); PLATELET COUNT 363 x10^3/uL (140-400); RED BLOOD COUNT 2.77 x10^6/uL (3.50-5.40); RED CELL DISTRIBUTION WIDTH 16.8 % (11.5-14.5); WHITE BLOOD COUNT 17.5 x10^3/uL (4.0-11.0)
[2016-08-25 06:57] LABS: ALBUMIN 1.4 g/dL (3.4-5.0); ALBUMIN/GLOBULIN RATIO 0.3 (1.0-1.7); CALCIUM 8.3 mg/dL (8.5-10.1); CREATININE 0.8 mg/dL (0.6-1.0); GFR 78.7; POTASSIUM 3.2 mmol/L (3.5-5.1); TOTAL BILIRUBIN 0.7 mg/dL (0.2-1.0); TOTAL PROTEIN 6.9 g/dL (6.4-8.2)
[2016-08-25] MEDS: BUDESONIDE 0.5 MG/2 ML NEBU. NEB SCH ×2 (07:20→20:19)
[2016-08-25] MEDS: IPRATRPIUM/ALBUTEROL 0.5/2.5MG 3 ML NEBU. NEB SCH ×4 (07:20→20:19)
--- NOTE | 2016-08-25 08:13 | PDOC ---
PULMONARY PROGRESS NOTES Subjective on vent, alert has sob, mod trach secretion didn't tolerate weaning yesterday Vitals Vital Signs Date Time Temp Pulse Resp B/P (MAP) Pulse Ox O2 Delivery O2 Flow Rate FiO2 08/25/16 07:20 98 Ventilator 08/25/16 06:00 111 23 110/68 (82) 08/25/16 05:00 100.1 100.1 08/25/16 01:12 10.0 Comments ros as mentioned as above other sys otherwise neg ROS: No Chest Pain, No Abdominal Pain General: Alert HEENT: Other (nc at perrl. poor dentition, nose clear) Lungs: Crackles, Other (dull at bases. ) Cardiovascular: S1, S2, Other Abdomen: Soft, Non-tender, Other (no mass) Neuro Exam: Alert Extremities: Other (edema) Skin: Warm Labs Laboratory Tests Test 08/25/16 06:00 White Blood Count 17.5 x10^3/uL (4.0-11.0) Red Blood Count 2.77 x10^6/uL (3.50-5.40) Hemoglobin 8.1 g/dL (12.0-15.5) Hematocrit 25.1 % (36.0-47.0) Mean Corpuscular Volume 91 fL (79-100) Mean Corpuscular Hemoglobin 29 pg (25-35) Mean Corpuscular Hemoglobin Concent 32 g/dL (31-37) Red Cell Distribution Width 16.8 % (11.5-14.5) Platelet Count 363 x10^3/uL (140-400) Neutrophils (%) (Auto) 81 % (31-73) Lymphocytes (%) (Auto) 9 % (24-48) Monocytes (%) (Auto) 7 % (0-9) Eosinophils (%) (Auto) 2 % (0-3) Basophils (%) (Auto) 0 % (0-3) Neutrophils # (Auto) 14.1 x10^3uL (1.8-7.7) Lymphocytes # (Auto) 1.6 x10^3/uL (1.0-4.8) Monocytes # (Auto) 1.3 x10^3/uL (0.0-1.1) Eosinophils # (Auto) 0.4 x10^3/uL (0.0-0.7) Basophils # (Auto) 0.1 x10^3/uL (0.0-0.2) Sodium Level 136 mmol/L (136-145) Potassium Level 3.2 mmol/L (3.5-5.1) Chloride Level 103 mmol/L (98-107) Carbon Dioxide Level 25 mmol/L (21-32) Anion Gap 8 (6-14) Blood Urea Nitrogen 18 mg/dL (7-20) Creatinine 0.8 mg/dL (0.6-1.0) Estimated GFR (Cockcroft-Gault) 78.7 BUN/Creatinine Ratio 23 (6-20) Glucose Level 118 mg/dL (70-99) Calcium Level 8.3 mg/dL (8.5-10.1) Total Bilirubin 0.7 mg/dL (0.2-1.0) Aspartate Amino Transf (AST/SGOT) 18 U/L (15-37) Alanine Aminotransferase (ALT/SGPT) 12 U/L (14-59) Alkaline Phosphatase 133 U/L (46-116) Total Protein 6.9 g/dL (6.4-8.2) Albumin 1.4 g/dL (3.4-5.0) Albumin/Globulin Ratio 0.3 (1.0-1.7) Laboratory Tests Test 08/25/16 06:00 White Blood Count 17.5 x10^3/uL (4.0-11.0) Red Blood Count 2.77 x10^6/uL (3.50-5.40) Hemoglobin 8.1 g/dL (12.0-15.5) Hematocrit 25.1 % (36.0-47.0) Mean Corpuscular Volume 91 fL (79-100) Mean Corpuscular Hemoglobin 29 pg (25-35) Mean Corpuscular Hemoglobin Concent 32 g/dL (31-37) Red Cell Distribution Width 16.8 % (11.5-14.5) Platelet Count 363 x10^3/uL (140-400) Neutrophils (%) (Auto) 81 % (31-73) Lymphocytes (%) (Auto) 9 % (24-48) Monocytes (%) (Auto) 7 % (0-9) Eosinophils (%) (Auto) 2 % (0-3) Basophils (%) (Auto) 0 % (0-3) Neutrophils # (Auto) 14.1 x10^3uL (1.8-7.7) Lymphocytes # (Auto) 1.6 x10^3/uL (1.0-4.8) Monocytes # (Auto) 1.3 x10^3/uL (0.0-1.1) Eosinophils # (Auto) 0.4 x10^3/uL (0.0-0.7) Basophils # (Auto) 0.1 x10^3/uL (0.0-0.2) Sodium Level 136 mmol/L (136-145) Potassium Level 3.2 mmol/L (3.5-5.1) Chloride Level 103 mmol/L (98-107) Carbon Dioxide Level 25 mmol/L (21-32) Anion Gap 8 (6-14) Blood Urea Nitrogen 18 mg/dL (7-20) Creatinine 0.8 mg/dL (0.6-1.0) Estimated GFR (Cockcroft-Gault) 78.7 BUN/Creatinine Ratio 23 (6-20) Glucose Level 118 mg/dL (70-99) Calcium Level 8.3 mg/dL (8.5-10.1) Total Bilirubin 0.7 mg/dL (0.2-1.0) Aspartate Amino Transf (AST/SGOT) 18 U/L (15-37) Alanine Aminotransferase (ALT/SGPT) 12 U/L (14-59) Alkaline Phosphatase 133 U/L (46-116) Total Protein 6.9 g/dL (6.4-8.2) Albumin 1.4 g/dL (3.4-5.0) Albumin/Globulin Ratio 0.3 (1.0-1.7) Medications Active Scripts Medications Dose Route/Sig Days Date Category No Known Medications Prior To Admisstion (Info) Each 1 Each 08/06/16 Reported Comments cxr reviewed, extensive bilateral pulmonary infiltrates with bilateral pleural effusions, partially loculated on the left. Similar findings were present on 08/17/2016. Impression . 1. Acute hypoxemic respiratory failure, multifactorial in etiology / increase secretions , repeat sputum 2. Hold CPAP/ T-PIECE today 3. Bilateral pulmonary nodules with cavitation, due to septic emboli. 4. Endocarditis. right sided, improving vegetations 5. ? chronic obstructive pulmonary disease. 6. Leukocytosis./fever, improved 7. Anemia. 8. Thrombocytopenia. off lovenox 10. Intravenous drug abuse. 11. Tobacco habituation. 12. MSSA septicemia/pneumonia/ CHF 13. g - emy in sputum Plan . Trach secretions for c/s, g - emy, id pending cont vent support, vent setting reviewed, weaning as tolerated cxr in am s/p trach antibiotics per ID, cont abx on cefepime now bronchodilators keep I<O lovenox pepcid for prophylaxis discussed w pt rn, rt JUAN ADDISON MD August 25, 2016 08:13
--- NOTE | 2016-08-25 08:22 | PDOC ---
Infectious Disease Note Subjective Subjective Fever Remains on vent via trach. FiO2 35%. No increase O2 demands Tube feedings via g-tube. + diarrhea. Rectal tube in place ROS ROS limited Vital Sign Vital Signs Vital Signs Date Time Temp Pulse Resp B/P (MAP) Pulse Ox O2 Delivery O2 Flow Rate FiO2 08/25/16 07:20 98 Ventilator 08/25/16 06:00 111 23 110/68 (82) 08/25/16 05:00 100.1 100.1 08/25/16 01:12 10.0 Physical Exam PHYSICAL EXAM GENERAL: Resting HENT: Oral cavity pink, dry, poor dentition, + decay NECK: Trach, + secretions LUNGS: Rhonchi HEART: S1S2 ABD: Mildly distended, soft, BS present. + g-tube & rectal tube : [place] EXT: Generalized edema. No cyanosis SKIN: No rash LUE-PICC. clean Labs Lab Laboratory Tests Test 08/25/16 06:00 White Blood Count 17.5 x10^3/uL (4.0-11.0) Red Blood Count 2.77 x10^6/uL (3.50-5.40) Hemoglobin 8.1 g/dL (12.0-15.5) Hematocrit 25.1 % (36.0-47.0) Mean Corpuscular Volume 91 fL (79-100) Mean Corpuscular Hemoglobin 29 pg (25-35) Mean Corpuscular Hemoglobin Concent 32 g/dL (31-37) Red Cell Distribution Width 16.8 % (11.5-14.5) Platelet Count 363 x10^3/uL (140-400) Neutrophils (%) (Auto) 81 % (31-73) Lymphocytes (%) (Auto) 9 % (24-48) Monocytes (%) (Auto) 7 % (0-9) Eosinophils (%) (Auto) 2 % (0-3) Basophils (%) (Auto) 0 % (0-3) Neutrophils # (Auto) 14.1 x10^3uL (1.8-7.7) Lymphocytes # (Auto) 1.6 x10^3/uL (1.0-4.8) Monocytes # (Auto) 1.3 x10^3/uL (0.0-1.1) Eosinophils # (Auto) 0.4 x10^3/uL (0.0-0.7) Basophils # (Auto) 0.1 x10^3/uL (0.0-0.2) Sodium Level 136 mmol/L (136-145) Potassium Level 3.2 mmol/L (3.5-5.1) Chloride Level 103 mmol/L (98-107) Carbon Dioxide Level 25 mmol/L (21-32) Anion Gap 8 (6-14) Blood Urea Nitrogen 18 mg/dL (7-20) Creatinine 0.8 mg/dL (0.6-1.0) Estimated GFR (Cockcroft-Gault) 78.7 BUN/Creatinine Ratio 23 (6-20) Glucose Level 118 mg/dL (70-99) Calcium Level 8.3 mg/dL (8.5-10.1) Total Bilirubin 0.7 mg/dL (0.2-1.0) Aspartate Amino Transf (AST/SGOT) 18 U/L (15-37) Alanine Aminotransferase (ALT/SGPT) 12 U/L (14-59) Alkaline Phosphatase 133 U/L (46-116) Total Protein 6.9 g/dL (6.4-8.2) Albumin 1.4 g/dL (3.4-5.0) Albumin/Globulin Ratio 0.3 (1.0-1.7) CXR 08/24. Extensive pulmonary infiltrates persist. Infiltrate in the right lung similar to slightly worse. Loculated fluid on the left is similar. A right pleural effusion is likely. Left PICC line and tracheostomy tube is noted. IMPRESSION: Extensive pulmonary infiltrates. Infiltrate associated with the right lung is similar to slightly worse Micro Sputum (08/22) GRAM STAIN Final WBCS MANY GRAM NEGATIVE RODS MANY SQUAMOUS EPITHELIAL CELLS OCCASIONAL Objective Assessment Ecoli in sputum (08/22) Fever Leukocytosis Acute anemia s/p PRBCs, 08/16, 08/20 S/p Trach/PEG 08/13 MSSA sepsis 08/01 ([facility]) -Repeat BC positive, 08/05 & 08/07. Neg 08/09 Right-sided bacterial endocarditis. -TTE. 3.0 x 2.0cm mobile mass TV Multiple pulmonary nodules/septic emboli Acute Resp failure - Intubated ? developing ARDS. S/p Bronch 08/08. MSSA IV drug use. Hep C Ileus Renal insufficiency. Severe thrombocytopenia. improved Hepatosplenomegaly on CT Plan Plan of Care Nafcillin changed to cefepime to cover for GNR in sputum Patient will need a total of six weeks of IV abx to treat endocarditis/ bacteremia Monitor WBC, temp in am Supportive care CT Chest/abd/pelvis D/w family Attending Co-Sign Attending Co-Sign The patient was seen and interviewed as well as examined at the bedside. The chart was reviewed. The case was discussed. Agree with the plan of care. JAZMIN SOUSA APRN August 25, 2016 08:21 KAYLYNN SHAY MD August 25, 2016 13:55
[2016-08-25] MEDS: POTASSIUM CHLORIDE 20MEQ 50 ML IV SCH ×2 (08:38→09:45)
[2016-08-25] MEDS: FAMOTIDINE 20 MG/2 ML VIAL IVP SCH ×2 (08:39→20:51)
[2016-08-25] MEDS: NYSTATIN TOPICAL POWDER 15GM BOTTLE. TP SCH ×2 (08:39→20:51)
[2016-08-25] MEDS: ALPRAZolam 0.5 MG TABLET PEG SCH ×3 (08:39→20:51)
[2016-08-25] MEDS: MAGNESIUM SULFATE 4GM 100 ML IV SCH (09:00)
[2016-08-25 10:31] LABS: % EOS 3 % (0-5)
[2016-08-25 10:38] LABS: ANISOCYTOSIS SLIGHT; PLT ESTIMATE ADEQUATE (ADEQUATE)
[2016-08-25 10:39] LABS: HYPOCHROMIA SLIGHT; MICROCYTOSIS SLIGHT
--- NOTE | 2016-08-25 10:53 | PDOC ---
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, IV drug use -Resp failure on Vent -Polysubstance abuse -Hepatitis C, -Tobacco use -Renal insufficiency -Pneumonia -Anemia requiring transfusions, sepsis, - thrombocytosis, reactive -severe malnutrition, was POA, weight loss prior to admit, albumin low History of Present Illness History of Present Illness lying in bed, on vent to trach less distress today, more calm appearance some redness in flaquito area, Vitals Vitals Vital Signs Date Time Temp Pulse Resp B/P (MAP) Pulse Ox O2 Delivery O2 Flow Rate FiO2 08/25/16 08:47 98 Ventilator 08/25/16 06:00 111 23 110/68 (82) 08/25/16 05:00 100.1 100.1 08/25/16 01:12 10.0 Physical Exam General: Alert, Cooperative, No acute distress Heart: Normal S1, Normal S2, No murmurs Lungs: Crackles, Other (dull at bases. ) Abdomen: Normal bowel sounds, Other (Hepatosplenomegaly present) Extremities: No cyanosis, No edema Skin: No breakdown, No significant lesion Labs LABS Laboratory Tests Test 08/25/16 06:00 White Blood Count 17.5 x10^3/uL (4.0-11.0) Red Blood Count 2.77 x10^6/uL (3.50-5.40) Hemoglobin 8.1 g/dL (12.0-15.5) Hematocrit 25.1 % (36.0-47.0) Mean Corpuscular Volume 91 fL (79-100) Mean Corpuscular Hemoglobin 29 pg (25-35) Mean Corpuscular Hemoglobin Concent 32 g/dL (31-37) Red Cell Distribution Width 16.8 % (11.5-14.5) Platelet Count 363 x10^3/uL (140-400) Neutrophils (%) (Auto) 81 % (31-73) Lymphocytes (%) (Auto) 9 % (24-48) Monocytes (%) (Auto) 7 % (0-9) Eosinophils (%) (Auto) 2 % (0-3) Basophils (%) (Auto) 0 % (0-3) Neutrophils # (Auto) 14.1 x10^3uL (1.8-7.7) Lymphocytes # (Auto) 1.6 x10^3/uL (1.0-4.8) Monocytes # (Auto) 1.3 x10^3/uL (0.0-1.1) Eosinophils # (Auto) 0.4 x10^3/uL (0.0-0.7) Basophils # (Auto) 0.1 x10^3/uL (0.0-0.2) Segmented Neutrophils % 71 % (35-66) Band Neutrophils % 14 % (0-9) Lymphocytes % 10 % (24-48) Monocytes % 2 % (0-10) Eosinophils % 3 % (0-5) Platelet Estimate Adequate (ADEQUATE) Hypochromasia Slight Anisocytosis Slight Microcytosis Slight Sodium Level 136 mmol/L (136-145) Potassium Level 3.2 mmol/L (3.5-5.1) Chloride Level 103 mmol/L (98-107) Carbon Dioxide Level 25 mmol/L (21-32) Anion Gap 8 (6-14) Blood Urea Nitrogen 18 mg/dL (7-20) Creatinine 0.8 mg/dL (0.6-1.0) Estimated GFR (Cockcroft-Gault) 78.7 BUN/Creatinine Ratio 23 (6-20) Glucose Level 118 mg/dL (70-99) Calcium Level 8.3 mg/dL (8.5-10.1) Magnesium Level 2.1 mg/dL (1.8-2.4) Total Bilirubin 0.7 mg/dL (0.2-1.0) Aspartate Amino Transf (AST/SGOT) 18 U/L (15-37) Alanine Aminotransferase (ALT/SGPT) 12 U/L (14-59) Alkaline Phosphatase 133 U/L (46-116) Total Protein 6.9 g/dL (6.4-8.2) Albumin 1.4 g/dL (3.4-5.0) Albumin/Globulin Ratio 0.3 (1.0-1.7) Assessment and Plan Assessmemt and Plan cont current some improvement Problems: Comment Review of Relevant I have reviewed the following items shanta (where applicable) has been applied. Labs Laboratory Tests Test 08/25/16 06:00 White Blood Count 17.5 x10^3/uL (4.0-11.0) Red Blood Count 2.77 x10^6/uL (3.50-5.40) Hemoglobin 8.1 g/dL (12.0-15.5) Hematocrit 25.1 % (36.0-47.0) Mean Corpuscular Volume 91 fL (79-100) Mean Corpuscular Hemoglobin 29 pg (25-35) Mean Corpuscular Hemoglobin Concent 32 g/dL (31-37) Red Cell Distribution Width 16.8 % (11.5-14.5) Platelet Count 363 x10^3/uL (140-400) Neutrophils (%) (Auto) 81 % (31-73) Lymphocytes (%) (Auto) 9 % (24-48) Monocytes (%) (Auto) 7 % (0-9) Eosinophils (%) (Auto) 2 % (0-3) Basophils (%) (Auto) 0 % (0-3) Neutrophils # (Auto) 14.1 x10^3uL (1.8-7.7) Lymphocytes # (Auto) 1.6 x10^3/uL (1.0-4.8) Monocytes # (Auto) 1.3 x10^3/uL (0.0-1.1) Eosinophils # (Auto) 0.4 x10^3/uL (0.0-0.7) Basophils # (Auto) 0.1 x10^3/uL (0.0-0.2) Segmented Neutrophils % 71 % (35-66) Band Neutrophils % 14 % (0-9) Lymphocytes % 10 % (24-48) Monocytes % 2 % (0-10) Eosinophils % 3 % (0-5) Platelet Estimate Adequate (ADEQUATE) Hypochromasia Slight Anisocytosis Slight Microcytosis Slight Sodium Level 136 mmol/L (136-145) Potassium Level 3.2 mmol/L (3.5-5.1) Chloride Level 103 mmol/L (98-107) Carbon Dioxide Level 25 mmol/L (21-32) Anion Gap 8 (6-14) Blood Urea Nitrogen 18 mg/dL (7-20) Creatinine 0.8 mg/dL (0.6-1.0) Estimated GFR (Cockcroft-Gault) 78.7 BUN/Creatinine Ratio 23 (6-20) Glucose Level 118 mg/dL (70-99) Calcium Level 8.3 mg/dL (8.5-10.1) Magnesium Level 2.1 mg/dL (1.8-2.4) Total Bilirubin 0.7 mg/dL (0.2-1.0) Aspartate Amino Transf (AST/SGOT) 18 U/L (15-37) Alanine Aminotransferase (ALT/SGPT) 12 U/L (14-59) Alkaline Phosphatase 133 U/L (46-116) Total Protein 6.9 g/dL (6.4-8.2) Albumin 1.4 g/dL (3.4-5.0) Albumin/Globulin Ratio 0.3 (1.0-1.7) Laboratory Tests Test 08/25/16 06:00 White Blood Count 17.5 x10^3/uL (4.0-11.0) Red Blood Count 2.77 x10^6/uL (3.50-5.40) Hemoglobin 8.1 g/dL (12.0-15.5) Hematocrit 25.1 % (36.0-47.0) Mean Corpuscular Volume 91 fL (79-100) Mean Corpuscular Hemoglobin 29 pg (25-35) Mean Corpuscular Hemoglobin Concent 32 g/dL (31-37) Red Cell Distribution Width 16.8 % (11.5-14.5) Platelet Count 363 x10^3/uL (140-400) Neutrophils (%) (Auto) 81 % (31-73) Lymphocytes (%) (Auto) 9 % (24-48) Monocytes (%) (Auto) 7 % (0-9) Eosinophils (%) (Auto) 2 % (0-3) Basophils (%) (Auto) 0 % (0-3) Neutrophils # (Auto) 14.1 x10^3uL (1.8-7.7) Lymphocytes # (Auto) 1.6 x10^3/uL (1.0-4.8) Monocytes # (Auto) 1.3 x10^3/uL (0.0-1.1) Eosinophils # (Auto) 0.4 x10^3/uL (0.0-0.7) Basophils # (Auto) 0.1 x10^3/uL (0.0-0.2) Segmented Neutrophils % 71 % (35-66) Band Neutrophils % 14 % (0-9) Lymphocytes % 10 % (24-48) Monocytes % 2 % (0-10) Eosinophils % 3 % (0-5) Platelet Estimate Adequate (ADEQUATE) Hypochromasia Slight Anisocytosis Slight Microcytosis Slight Sodium Level 136 mmol/L (136-145) Potassium Level 3.2 mmol/L (3.5-5.1) Chloride Level 103 mmol/L (98-107) Carbon Dioxide Level 25 mmol/L (21-32) Anion Gap 8 (6-14) Blood Urea Nitrogen 18 mg/dL (7-20) Creatinine 0.8 mg/dL (0.6-1.0) Estimated GFR (Cockcroft-Gault) 78.7 BUN/Creatinine Ratio 23 (6-20) Glucose Level 118 mg/dL (70-99) Calcium Level 8.3 mg/dL (8.5-10.1) Magnesium Level 2.1 mg/dL (1.8-2.4) Total Bilirubin 0.7 mg/dL (0.2-1.0) Aspartate Amino Transf (AST/SGOT) 18 U/L (15-37) Alanine Aminotransferase (ALT/SGPT) 12 U/L (14-59) Alkaline Phosphatase 133 U/L (46-116) Total Protein 6.9 g/dL (6.4-8.2) Albumin 1.4 g/dL (3.4-5.0) Albumin/Globulin Ratio 0.3 (1.0-1.7) Microbiology 08/12/16 Blood Fungal Culture - Preliminary, Resulted 08/12/16 Fungal Culture Result 1 - Preliminary, Resulted 08/22/16 Gram Stain - Final, Complete Medications Current Medications Amino Acids/ Glycerin/ Electrolytes 1,000 ml @ 100 mls/hr Q10H IV Last administered on 08/05/16 02:40; Start 08/02/16 at 03:00; Stop 08/05/16 at 08:50 ; Status DC Morphine Sulfate 2 mg PRN Q2HR PRN IV SEVERE PAIN Last administered on 11:59; Start 08/02/16 at 02:30; Stop 08/02/16 at 13:28; Status DC Daptomycin 220 mg/ Sodium Chloride 50 ml @ 100 mls/hr Q24H IV ; Start 08/02/16 at 09:15; Stop 08/02/16 at 15:58; Status DC Cefepime HCl 1 gm/ Sodium Chloride 50 ml @ 100 mls/hr Q12HR IV Last administered on 08/04/16 08:10; Start 08/02/16 at 10:00; Stop 08/04/16 at 10:33 ; Status DC Daptomycin 220 mg/ Sodium Chloride 50 ml @ 100 mls/hr ONCE ONCE IV ; Start at 10:00; Stop 08/02/16 at 10:29; Status Cancel Potassium Chloride (Klor-Con) 40 meq 1X ONCE PO Last administered on 10:17; Start 08/02/16 at 09:45; Stop 08/02/16 at 09:46; Status DC Daptomycin 220 mg/ Sodium Chloride 50 ml @ 100 mls/hr Q24H IV Last administered on 08/03/16 09:43; Start 08/02/16 at 10:15; Stop 08/03/16 at 10:29 ; Status DC Potassium Chloride (Klor-Con) 40 meq 1X ONCE PO Last administered on 12:57; Start 08/02/16 at 12:30; Stop 08/02/16 at 12:36; Status DC Morphine Sulfate 5 mg PRN Q2HRS PRN IV MODERATE TO SEVERE PAIN Last administered on 08/04/16 08:16; Start 08/02/16 at 13:30 Morphine Sulfate 8 mg PRN Q2HRS PRN IV MODERATE TO SEVERE PAIN Last administered on 08/04/16 14:58; Start 08/02/16 at 13:30 Acetaminophen (Tylenol) 650 mg PRN Q6HRS PRN PO TEMP GREATER THAN 100.4 Last administered on 08/24/16 10:02; Start 08/02/16 at 14:45 Lactated Ringer's 1,000 ml @ 50 mls/hr Q20H IV ; Start 08/05/16 at 07:00; Stop 08/05/16 at 18:13; Status DC Daptomycin 220 mg/ Sodium Chloride 50 ml @ 100 mls/hr Q24H IV ; Start 08/03/16 at 11:00; Status Cancel Potassium Chloride (Klor-Con) 40 meq 1X ONCE PO Last administered on 17:41; Start 08/02/16 at 17:15; Stop 08/02/16 at 17:18; Status DC Potassium Chloride (Klor-Con) 40 meq BIDWMEALS PO ; Start 08/03/16 at 08:00; Stop 08/03/16 at 11:08; Status DC Morphine Sulfate 5 mg 1X ONCE IV Last administered on 08/02/16 21:45; Start 08/02/16 at 21:30; Stop 08/02/16 at 21:33; Status DC Lorazepam (Ativan) 1 mg 1X ONCE IV Last administered on 08/02/16 21:30; Start 08/02/16 at 21:30; Stop 08/02/16 at 21:33; Status DC Acetaminophen (Acetaminophen Supp) 650 mg PRN Q6HRS PRN DC MILD PAIN / TEMP Last administered on 08/13/16 03:13; Start 08/03/16 at 01:15 Albuterol/ Ipratropium (Duoneb) 3 ml RTQID NEB Last administered on 08/25/16 07 :20; Start 08/03/16 at 08:00 Budesonide (Pulmicort) 0.5 mg RTBID NEB Last administered on 08/25/16 07:20; Start 08/03/16 at 08:00 Pantoprazole Sodium (Protonix Vial) 40 mg 1X ONCE IVP Last administered on 10:06; Start 08/03/16 at 08:00; Stop 08/03/16 at 08:01; Status DC Daptomycin 320 mg/ Sodium Chloride 50 ml @ 100 mls/hr Q24H IV Last administered on 08/04/16 10:03; Start 08/04/16 at 10:00; Stop 08/04/16 at 10:33 ; Status DC Lorazepam (Ativan) 0.5 mg PRN Q6HRS PRN IV ANXIETY / AGITATION Last administered on 08/04/16 09:12; Start 08/03/16 at 11:15; Stop 08/07/16 at 11:02 ; Status DC Lorazepam (Ativan) 0.5 mg 1X ONCE IV Last administered on 08/04/16 10:00; Start 08/04/16 at 10:00; Stop 08/04/16 at 10:01; Status DC Morphine Sulfate 5 mg 1X ONCE IV Last administered on 08/04/16 10:00; Start 08/04/16 at 10:00; Stop 08/04/16 at 10:01; Status DC Lorazepam (Ativan) 0.5 mg PRN Q4HRS PRN IV ANXIETY / AGITATION Last administered on 08/25/16 02:29; Start 08/04/16 at 10:00 Nafcillin Sodium 2 gm/Sodium Chloride 100 ml @ 200 mls/hr Q4HRS IV Last administered on 08/09/16 10:10; Start 08/04/16 at 12:00; Stop 08/09/16 at 11:49 ; Status DC Propofol 100 ml @ As Directed STK-MED ONCE IV ; Start 08/04/16 at 16:10; Stop 08/04/16 at 16:11; Status DC Succinylcholine Chloride (Anectine) 200 mg STK-MED ONCE .ROUTE ; Start 08/04/16 at 16:14; Stop 08/04/16 at 16:15; Status DC Succinylcholine Chloride (Anectine) 200 mg 1X ONCE IV ; Start 08/04/16 at 16:45 ; Stop 08/04/16 at 16:46; Status DC Propofol 100 ml @ 0 mls/hr CONT PRN IV SEE I/O RECORD Last administered on 08/17 10:18; Start 08/04/16 at 16:45 Lorazepam (Ativan) 0.5 mg 1X ONCE IV Last administered on 08/04/16 16:45; Start 08/04/16 at 16:45; Stop 08/04/16 at 16:46; Status DC Morphine Sulfate 5 mg 1X ONCE IV Last administered on 08/04/16 16:44; Start 08/04/16 at 16:45; Stop 08/04/16 at 16:46; Status DC Fentanyl Citrate 30 ml @ 0 mls/hr CONT PRN IV PROTOCOL Last administered on 08/25 01:12; Start 08/04/16 at 16:45 Chlorhexidine Gluconate (Peridex) 15 ml BID MM Last administered on 08/17/16 10:18; Start 08/04/16 at 21:00; Stop 08/17/16 at 19:36; Status DC Famotidine (Pepcid) 20 mg BID IVP Last administered on 08/25/16 08:39; Start at 17:00 Sodium Chloride 1,000 ml @ 100 mls/hr Q10H IV Last administered on 08/07/16 04:35; Start 08/05/16 at 09:00; Stop 08/07/16 at 08:59; Status DC Succinylcholine Chloride (Anectine) 200 mg STK-MED ONCE .ROUTE ; Start 08/04/16 at 16:00; Stop 08/05/16 at 12:32; Status DC Lorazepam (Ativan) 2 mg 1X ONCE IV Last administered on 08/05/16 20:43; Start 08/05/16 at 21:00; Stop 08/05/16 at 21:01; Status DC Furosemide (Lasix) 40 mg 1X PRN PRN IV blood transfusion Last administered on 14:17; Start 08/06/16 at 08:00; Stop 08/07/16 at 07:59; Status DC Sodium Bicarbonate 50 meq 1X ONCE IV Last administered on 08/06/16 14:06; Start 08/06/16 at 12:00; Stop 08/06/16 at 12:01; Status DC Calcium Chloride 1,000 mg STK-MED ONCE IV ; Start 08/04/16 at 12:00; Stop at 15:13; Status DC Epinephrine HCl (Epinephrine Syringe) 2 mg STK-MED ONCE .ROUTE ; Start 08/04/16 at 12:00; Stop 08/06/16 at 15:13; Status DC Sodium Bicarbonate 100 meq STK-MED ONCE .ROUTE ; Start 08/04/16 at 12:00; Stop 08/06/16 at 15:13; Status DC Amino Acids/ Glycerin/ Electrolytes 1,000 ml @ 100 mls/hr Q10H IV Last administered on 08/08/16 12:33; Start 08/07/16 at 10:00; Stop 08/09/16 at 09:42 ; Status DC Enoxaparin Sodium (Lovenox 40mg Syringe) 40 mg Q24H SQ Last administered on 13:10; Start 08/07/16 at 13:00; Stop 08/10/16 at 10:43; Status DC Vecuronium [place] (Norcuron Bolus) 10 mg STK-MED ONCE IV ; Start 08/07/16 at 13 :56; Stop 08/07/16 at 13:57; Status DC Vecuronium [place] (Norcuron Bolus) 6 mg 1X ONCE IV Last administered on 14:06; Start 08/07/16 at 14:00; Stop 08/07/16 at 14:05; Status DC Sodium Bicarbonate 50 meq 1X ONCE IV Last administered on 08/08/16 11:46; Start 08/08/16 at 11:45; Stop 08/08/16 at 11:46; Status DC Nystatin (Nystop) 1 james BID TP Last administered on 08/25/16 08:39; Start 08/08 at 21:00 Linezolid 300 ml @ 300 mls/hr Q12HR IV Last administered on 08/14/16 20:51; Start 08/09/16 at 09:00; Stop 08/15/16 at 07:21; Status DC Sodium Chloride 1,000 ml @ 20 mls/hr Q24H IV Last administered on 08/24/16 16: 33; Start 08/09/16 at 09:45 Sodium Bicarbonate 150 meq/Dextrose 1,150 ml @ 100 mls/hr 1X ONCE IV Last administered on 08/09/16 12:25; Start 08/09/16 at 11:30; Stop 08/09/16 at 22:59 ; Status DC Piperacillin Sod/ Tazobactam Sod (Zosyn Per Pharmacy) 1 each PRN DAILY PRN MC SEE COMMENTS; Start 08/09/16 at 12:00; Stop 08/14/16 at 07:40; Status DC Piperacillin Sod/ Tazobactam Sod 4.5 gm/Sodium Chloride 100 ml @ 200 mls/hr Q6HRS IV Last administered on 08/14/16 05:58; Start 08/09/16 at 12:30; Stop at 07:33; Status DC Vecuronium [place] (Norcuron Bolus) 5 mg PRN Q4HRS PRN IV INCREASED RESPIRATORY ,NOT RELI Last administered on 08/11/16 02:56; Start 08/09/16 at 13:30 Potassium Chloride 50 ml @ 100 mls/hr Q1H IV ; Start 08/10/16 at 09:30; Stop at 10:59; Status Cancel Potassium Chloride 100 ml @ 100 mls/hr Q1H IV Last administered on 08/10/16 16:28; Start 08/10/16 at 10:30; Stop 08/10/16 at 14:29; Status DC Potassium Chloride (KCl Oral Soln) 60 meq 1X ONCE PEG Last administered on 11:16; Start 08/10/16 at 11:00; Stop 08/10/16 at 11:01; Status DC Sodium Bicarbonate 150 meq/Dextrose 1,150 ml @ 100 mls/hr [id number] IV Last administered on 08/10/16 11:14; Start 08/10/16 at 11:00; Stop 08/10/16 at 22:29 ; Status DC Enoxaparin Sodium (Lovenox 40mg Syringe) 40 mg Q24H SQ ; Start 08/10/16 at 13:00 ; Stop 08/10/16 at 13:00; Status DC Micafungin Sodium 100 mg/Dextrose 100 ml @ 100 mls/hr Q24H IV Last administered on 08/13/16 16:26; Start 08/11/16 at 16:00; Stop 08/14/16 at 07:33 ; Status DC Furosemide (Lasix) 40 mg 1X ONCE IVP Last administered on 08/12/16 08:38; Start 08/12/16 at 08:00; Stop 08/12/16 at 08:06; Status DC Morphine Sulfate 1 mg PRN Q10MIN PRN IV SEVERE PAIN; Start 08/13/16 at 07:00; Stop 08/14/16 at 06:59; Status DC Lactated Ringer's 1,000 ml @ 0 mls/hr Q0M IV ; Start 08/13/16 at 07:00; Stop at 18:59; Status DC Lidocaine HCl 2 ml PRN 1X PRN ID PRIOR TO IV START; Start 08/13/16 at 07:00; Stop 08/14/16 at 06:59; Status DC Hydromorphone HCl (Dilaudid) 0.5 mg PRN Q10MIN PRN IV SEV PAIN, Second choice; Start 08/13/16 at 07:00; Stop 08/14/16 at 06:59; Status DC Prochlorperazine Edisylate (Compazine) 5 mg PACU PRN PRN IV NAUSEA, MRX1; Start 08/13/16 at 07:00; Stop 08/14/16 at 06:59; Status DC Morphine Sulfate 1 mg PRN Q10MIN PRN IV SEVERE PAIN; Start 08/13/16 at 07:00; Stop 08/14/16 at 06:59; Status DC Lactated Ringer's 1,000 ml @ 0 mls/hr Q0M IV ; Start 08/13/16 at 07:00; Stop at 18:59; Status DC Lidocaine HCl 2 ml PRN 1X PRN ID PRIOR TO IV START; Start 08/13/16 at 07:00; Stop 08/14/16 at 06:59; Status DC Hydromorphone HCl (Dilaudid) 0.5 mg PRN Q10MIN PRN IV SEV PAIN, Second choice; Start 08/13/16 at 07:00; Stop 08/14/16 at 06:59; Status DC Prochlorperazine Edisylate (Compazine) 5 mg PACU PRN PRN IV NAUSEA, MRX1; Start 08/13/16 at 07:00; Stop 08/14/16 at 06:59; Status DC Potassium Chloride 50 ml @ 50 mls/hr Q1H IV Last administered on 08/13/16 07: 57; Start 08/13/16 at 07:00; Stop 08/13/16 at 08:59; Status DC Rocuronium [place] (Zemuron) 50 mg STK-MED ONCE .ROUTE ; Start 08/13/16 at 12:50 ; Stop 08/13/16 at 12:51; Status DC Propofol 20 ml @ As Directed STK-MED ONCE IV ; Start 08/13/16 at 12:53; Stop at 12:54; Status DC Sevoflurane (Ultane) 30 ml STK-MED ONCE IH ; Start 08/13/16 at 14:04; Stop 08/13 at 14:05; Status DC Albumin Human 250 ml @ 100 mls/hr 1X ONCE IV Last administered on 08/13/16 23:38; Start 08/13/16 at 18:00; Stop 08/13/16 at 20:29; Status DC Albumin Human 500 ml @ 100 mls/hr 1X ONCE IV Last administered on 08/13/16 18:15; Start 08/13/16 at 18:00; Stop 08/13/16 at 22:59; Status DC Potassium Chloride 50 ml @ 50 mls/hr Q1H IV Last administered on 08/14/16 10: 46; Start 08/14/16 at 08:00; Stop 08/14/16 at 09:59; Status DC Nafcillin Sodium 2 gm/Sodium Chloride 100 ml @ 200 mls/hr Q4HRS IV Last administered on 08/23/16 08:51; Start 08/14/16 at 08:00; Stop 08/23/16 at 10:44; Status DC Enoxaparin Sodium (Lovenox 40mg Syringe) 40 mg Q24H SQ Last administered on 08/24 16:33; Start 08/14/16 at 12:00 Potassium Chloride (KCl Oral Soln) 40 meq 1X ONCE PEG Last administered on 07:54; Start 08/16/16 at 07:00; Stop 08/16/16 at 07:01; Status DC Potassium Chloride (KCl Oral Soln) 40 meq 1X ONCE PEG Last administered on 14:01; Start 08/16/16 at 12:00; Stop 08/16/16 at 12:01; Status DC Magnesium Sulfate/ Dextrose 50 ml @ 25 mls/hr 1X ONCE IV Last administered on 08/16/16 17:14; Start 08/16/16 at 16:30; Stop 08/16/16 at 18:29; Status DC Potassium Chloride (Klor-Con) 40 meq 1X ONCE PO ; Start 08/17/16 at 13:30; Stop 08/17/16 at 13:31; Status Cancel Potassium Chloride (KCl Oral Soln) 40 meq 1X ONCE PO Last administered on 08/17 15:34; Start 08/17/16 at 13:30; Stop 08/17/16 at 14:27; Status DC Potassium Chloride 100 ml @ 100 mls/hr PRN Q1HR PRN IV HYPOKALEMIA PER ICU PROTOCOL; Start 08/17/16 at 13:30 Potassium Chloride 50 ml @ 25 mls/hr PRN Q2HR PRN IV HYPOKALEMIA PER ICU PROTOCOL Last administered on 08/21/16 13:29; Start 08/17/16 at 13:30; Stop 08/21 at 13:34; Status DC Potassium Chloride (Klor-Con) 40 meq PRN Q2HR PRN PO HYPOKALEMIA PER ICU PROTOCOL; Start 08/17/16 at 13:30 Potassium Chloride 100 ml @ 100 mls/hr PRN Q1HR PRN IV HYPOKALEMIA PER ICU PROTOCOL; Start 08/17/16 at 13:30 Potassium Chloride 50 ml @ 25 mls/hr PRN Q2HR PRN IV HYPOKALEMIA PER ICU PROTOCOL; Start 08/17/16 at 13:30 Potassium Chloride (Klor-Con) 40 meq PRN Q2HR PRN PO HYPOKALEMIA PER ICU PROTOCOL; Start 08/17/16 at 13:30 Potassium Chloride 100 ml @ 100 mls/hr PRN Q1HR PRN IV HYPOKALEMIA PER ICU PROTOCOL; Start 08/17/16 at 13:30 Potassium Chloride 50 ml @ 25 mls/hr PRN Q2HR PRN IV HYPOKALEMIA PER ICU PROTOCOL; Start 08/17/16 at 14:00 Magnesium Sulfate/ Dextrose 100 ml @ 50 mls/hr PRN DAILY PRN IV HYPOMAGNESIA PER ICU PROTOCOL Last administered on 08/20/16 22:26; Start 08/18/16 at 09:00 Potassium Phos/ Sodium Phos (Phos-Nak) 1 pkt BID PO ; Start 08/17/16 at 21:00; Stop 08/18/16 at 09:01; Status DC Sodium Phosphate 40 mmol/Dextrose 263.3333 ml @ 62.5 mls/hr PRN 1X PRN IV HYPOPHOSP PER ICU PROTOCOL; Start 08/17/16 at 13:30 Potassium Chloride (KCl Oral Soln) 40 meq 1X ONCE PEG Last administered on 08/19 07:57; Start 08/19/16 at 07:45; Stop 08/19/16 at 07:46; Status DC Potassium Chloride (KCl Oral Soln) 40 meq 1X ONCE PEG Last administered on 08/19 11:36; Start 08/19/16 at 12:00; Stop 08/19/16 at 12:01; Status DC Alprazolam (Xanax) 0.5 mg 1X ONCE PO Last administered on 08/19/16 11:35; Start 08/19/16 at 11:15; Stop 08/19/16 at 11:16; Status DC Alprazolam (Xanax) 0.5 mg TID PEG Last administered on 08/23/16 20:34; Start at 15:00; Stop 08/24/16 at 08:11; Status DC Potassium Chloride 50 ml @ 50 mls/hr Q1H IV Last administered on 08/22/16 09:40 ; Start 08/22/16 at 08:30; Stop 08/22/16 at 10:29; Status DC Haloperidol Lactate (Haldol) 5 mg PRN Q6HRS PRN IVP AGITATION Last administered on 08/24/16 22:45; Start 08/22/16 at 09:15 Haloperidol Lactate (Haldol) 2 mg 1X ONCE IVP ; Start 08/22/16 at 09:15; Stop at 09:27; Status DC Magnesium Sulfate/ Dextrose 100 ml @ 50 mls/hr DAILY IV Last administered on 10:00; Start 08/23/16 at 09:00; Stop 08/26/16 at 08:59 Albumin Human 100 ml @ 100 mls/hr [id number] IV Last administered on 08/23/16 17:25 ; Start 08/23/16 at 09:00; Stop 08/23/16 at 16:59; Status DC Furosemide (Lasix) 40 mg [id number] IVP Last administered on 08/23/16 17:26; Start 08/23/16 at 09:00; Stop 08/23/16 at 16:01; Status DC Vitamin A/Vitamin D (Vitamin A & D Ointment) 1 james PRN Q1HR PRN TP SKIN PROTECTION; Start 08/23/16 at 08:45 Cefepime HCl 1 gm/ Sodium Chloride 50 ml @ 100 mls/hr Q8HRS IV Last administered on 08/25/16 06:06; Start 08/23/16 at 14:00 Ondansetron HCl (Zofran) 4 mg PRN Q6HRS PRN IV NAUSEA/VOMITING Last administered on 08/23/16 19:27; Start 08/23/16 at 19:15 Alprazolam (Xanax) 0.25 mg TID PEG ; Start 08/24/16 at 09:00; Stop 08/24/16 at 09: 28; Status DC Diphenhydramine HCl (Benadryl) 25 mg HS PO ; Start 08/24/16 at 21:00; Stop at 21:00; Status DC Zolpidem Tartrate (Ambien) 5 mg PRN QHS PRN PO INSOMNIA; Start 08/24/16 at 08:15 Alprazolam (Xanax) 0.5 mg TID PEG Last administered on 08/25/16 08:39; Start at 09:00 Diphenhydramine HCl (Benadryl) 25 mg PRN QHS PRN PO sleep; Start 08/24/16 at 21: 00 Quetiapine Fumarate (SEROquel) 50 mg HS PO Last administered on 08/24/16 20:50 ; Start 08/24/16 at 21:00 Potassium Chloride 50 ml @ 50 mls/hr Q1H IV Last administered on 08/25/16 09:45 ; Start 08/25/16 at 08:00; Stop 08/25/16 at 09:59; Status DC Active Scripts Active Reported No Known Medications Prior To Admisstion (Info) Each 1 Each Vitals/I & O Vital Sign - Last 24 Hours 08/24/16 08/24/16 08/24/16 08/24/16 10:58 11:00 12:00 12:00 Temp 99.2 99.2 Pulse 114 105 Resp 25 26 B/P (MAP) 104/61 (75) 104/62 (76) Pulse Ox 97 97 98 O2 Delivery Ventilator Ventilator Mechanical Ventilator Ventilator 08/24/16 08/24/16 08/24/16 08/24/16 13:00 13:13 13:52 14:00 Pulse 106 106 Resp 24 24 24 B/P (MAP) 101/58 (72) 102/63 (76) Pulse Ox 98 97 98 98 O2 Delivery Ventilator Ventilator Ventilator Ventilator 08/24/16 08/24/16 08/24/16 08/24/16 14:30 15:00 15:17 16:00 Pulse 102 Resp 24 24 B/P (MAP) 110/63 (79) Pulse Ox 98 97 O2 Delivery Ventilator Ventilator Ventilator Mechanical Ventilator 08/24/16 08/24/16 08/24/16 08/24/16 16:00 16:49 17:00 18:00 Temp 99.8 99.8 Pulse 108 108 108 Resp 24 24 24 B/P (MAP) 108/60 (76) 117/66 (83) 123/74 (90) Pulse Ox 97 98 97 97 O2 Delivery Ventilator Ventilator Ventilator Ventilator 08/24/16 08/24/16 08/24/16 08/24/16 19:00 19:53 20:00 20:22 Temp 98.8 98.8 Pulse 103 110 Resp 24 24 B/P (MAP) 117/72 (87) 130/75 (93) Pulse Ox 98 98 98 O2 Delivery Ventilator Mechanical Ventilator Ventilator Ventilator 08/24/16 08/24/16 08/24/16 08/24/16 20:24 20:24 21:00 22:00 Pulse 106 109 Resp 22 22 B/P (MAP) 127/74 (91) 113/70 (84) Pulse Ox 98 98 98 98 O2 Delivery Ventilator Ventilator Ventilator Ventilator 08/24/16 08/24/16 08/25/16 08/25/16 23:00 23:10 00:00 00:07 Temp 98.3 98.3 Pulse 106 106 Resp 22 B/P (MAP) 113/70 (84) 115/73 (87) Pulse Ox 99 98 99 O2 Delivery Ventilator Ventilator Ventilator Mechanical Ventilator 08/25/16 08/25/16 08/25/16 08/25/16 01:00 01:12 01:39 01:42 Pulse 104 Resp 22 B/P (MAP) 110/70 (83) Pulse Ox 99 98 98 98 O2 Delivery Ventilator Ventilator O2 Flow Rate 10.0 08/25/16 08/25/16 08/25/16 08/25/16 02:00 03:00 03:52 04:00 Pulse 109 110 111 Resp 23 21 21 B/P (MAP) 108/68 (81) 110/67 (81) 112/66 (81) Pulse Ox 98 98 98 98 O2 Delivery Ventilator Ventilator Ventilator Ventilator 08/25/16 08/25/16 08/25/16 08/25/16 04:00 05:00 05:50 06:00 Temp 100.1 100.1 Pulse 108 111 Resp 23 B/P (MAP) 106/72 (83) 110/68 (82) Pulse Ox 98 98 98 O2 Delivery Mechanical Ventilator Ventilator Ventilator Ventilator 08/25/16 08/25/16 07:20 08:47 Pulse Ox 98 98 O2 Delivery Ventilator Ventilator Intake and Output 08/24/16 08/24/16 08/25/16 15:00 23:00 07:00 Intake Total 400 ml 1739.8 ml 806 ml Output Total 230 ml 875 ml 210 ml Balance 170 ml 864.8 ml 596 ml Nutrition Consultation Dietary Evaluation: Recommendations by RD: PPN/TPN Comments: Pt is s/p PEG placement 08/14 Rec. continue TF's with Isosource HN, goal rate 45 ml/hr flushes 150ml q6h Continue 1 packet prostat BID at 8AM and 6PM for optimal protein intake Expected Outcomes/Goals: tolerate the TF's via PEG at goal rate meet 75% estimated nutrition needs Malnutrition Findings: Reduced Certified Medical Coder Strength: N/A Reduced Certified Medical Coder Strength (Non-Sev: N/A Malnutrition related to morbid: No Weight Status: Overweight Fluid Accumulation (N/A): N/A MUNA MILLER MD August 25, 2016 10:53
[2016-08-25] MEDS: ENOXAPARIN 40 MG/0.4 ML SYRINGE. SQ SCH (12:44)
[2016-08-25] MEDS ORDERED: IOHEXOL 240 MG/ML 50ML VIAL. PO ONE (15:45)
[2016-08-25] MEDS ORDERED: IOHEXOL 300 MG/ML 75 ML VIAL IV ONE (15:45)
[2016-08-25] MEDS ORDERED: CONTRAST GIVEN MC PRN (16:00)
[2016-08-25] MEDS: IV 1/2 NORMAL SALINE 1,000 ML IV SCH (16:19)
--- NOTE | 2016-08-25 17:23 | RAD ---
PROCEDURE CT chest abdomen pelvis with contrast. HISTORY Fever, leukocytosis, sepsis TECHNIQUE After administration of intravenous contrast, CT imaging was performed of the chest, abdomen, pelvis, multiplanar reconstruction images submitted. Exposure: One or more of the following individualized dose reduction techniques were utilized for this exam: 1. Automated exposure control. 2. Adjustment of the mA and/or kV according to patient size. 3. Use of iterative reconstruction technique. COMPARISON August 09, [address] and August 01, 2016 CT abdomen pelvis FINDINGS Chest: As seen previously, there are cavitary lesions of the bilateral hemithoraces overall less numerous than previously. Largest focus of the left upper lobe measures on the order of 2.7 centimeters. There is increased loculated pleural fluid on the left with mild peripheral enhancement, seen both medially, laterally, and posteriorly. There is increased compressive atelectasis most notable of the left lower and left upper lobes near the base. Largest component of the loculated pleural fluid medially measures up to 3.4 cm transverse by 11.7 centimeters AP, largest component on the left laterally up to 3.8 cm transverse by 18.2 cm AP. There is also dependent moderate right pleural effusion, also subpulmonic component. There is also some loculated fluid of the superior medial right krys thorax as seen previously. There is adjacent compressive atelectasis most notable of the right lower lobe. There is no pneumothorax. Some of the previously seen cavitary lesions are now filled with internal density. There is diffuse body wall edema. Thoracic aortic caliber is within normal limits without intraluminal flap. There is no abnormal pericardial fluid. There is tracheostomy present. There is mediastinal lymphadenopathy such as right pretracheal node 1.2 cm short axis dimension, present previously. There is left upper extremity PICC. Abdomen pelvis: There is now moderate quantity of free fluid in the pelvis, to a lesser degree in the abdomen. No focal abnormality is identified of the liver or spleen. There is hepatomegaly. Both kidneys enhance, no hydronephrosis. Gallbladder is present without obvious intraluminal abnormality, adjacent mild pericholecystic fluid probably related to other free fluid. There is diffuse prominent body wall edema. Bowel is not considered significantly dilated. Appendix cannot be clearly identified. No focal abscess or free air is identified. There is percutaneous gastrostomy. There is Shelby catheter and apparently a rectal catheter present. IMPRESSION 1. Comparing with the previous exam, there are persistent although less numerous cavitary lesions of the lungs, increased loculated pleural fluid on the left which could be due to component of empyema, also somewhat larger size of moderate right pleural effusion. 2. There is now moderate free fluid in the pelvis and to a lesser degree of the abdomen. There is diffuse prominent anasarca. 3. There is again mediastinal lymphadenopathy. Electronically signed by: Geremias Yun MD (August 25, 2016 17:21:07)
[2016-08-25] MEDS: QUEtiapine 25 MG TABLET. PO SCH (20:51)
[2016-08-25] MEDS: HALOPERIDOL LACTATE 5 MG/ML VIAL. IVP PRN (20:51)
[2016-08-26] VITALS (25 sets, daily range): BP systolic 89–122; BP diastolic 57–83
[2016-08-26] MEDS: ACETAMINOPHEN 325 MG TABLET. PO PRN (00:24)
[2016-08-26] MEDS: CEFEPIME HCL 1 GM in IV NORMAL SALINE 50ML 50 ML IV SCH ×3 (05:40→22:30)
[2016-08-26] MEDS: MORPHINE SULFATE 10 MG/ML VIAL. IV PRN ×2 (06:06→16:15)
[2016-08-26] MEDS: IV 1/2 NORMAL SALINE 1,000 ML IV SCH (06:41)
[2016-08-26 06:48] LABS: BASO # 0.1 x10^3/uL (0.0-0.2); BASO % 0 % (0-3); EOS % 2 % (0-3); HEMATOCRIT 23.4 % (36.0-47.0); HEMOGLOBIN 7.7 g/dL (12.0-15.5); LYMPH # 1.3 x10^3/uL (1.0-4.8); LYMPH % 8 % (24-48); MEAN CORPUSCULAR HEMOGLOBIN 29 pg (25-35); MEAN CORPUSCULAR HGB CONC 33 g/dL (31-37); MEAN CORPUSCULAR VOLUME 89 fL (79-100); MONO % 8 % (0-9); NEUT % 82 % (31-73); PLATELET COUNT 327 x10^3/uL (140-400); RED BLOOD COUNT 2.62 x10^6/uL (3.50-5.40); RED CELL DISTRIBUTION WIDTH 16.6 % (11.5-14.5)
[2016-08-26 06:59] LABS: ALBUMIN 1.3 g/dL (3.4-5.0); ALBUMIN/GLOBULIN RATIO 0.2 (1.0-1.7); CALCIUM 8.1 mg/dL (8.5-10.1); CREATININE 0.7 mg/dL (0.6-1.0); GFR 91.8; POTASSIUM 3.6 mmol/L (3.5-5.1); TOTAL BILIRUBIN 0.7 mg/dL (0.2-1.0); TOTAL PROTEIN 6.9 g/dL (6.4-8.2)
--- NOTE | 2016-08-26 07:16 | RAD ---
Indication: Respiratory failure. Time of exam 0621 hours. Correlation is made with prior exam from 08/24/2016. The tracheostomy tube remains with tip above the sundar. Left upper extremity PICC line has tip overlying the right atrium. Moderate to large left and moderate right pleural effusion and bilateral infiltrates persist. There may be some mild improved aeration when compared with 2 days earlier. No pneumothorax is seen. Impression: Bilateral infiltrates and effusions showing some mild improved aeration to both lungs when compared with study 2 days earlier.
--- NOTE | 2016-08-26 07:32 | PDOC ---
Infectious Disease Note Subjective Subjective Fever Remains on vent via trach. FiO2 35%. No increase O2 demands Tube feedings via g-tube. + diarrhea. Rectal tube in place ROS ROS Trached. states ok Vital Sign Vital Signs Vital Signs Date Time Temp Pulse Resp B/P (MAP) Pulse Ox O2 Delivery O2 Flow Rate FiO2 08/26/16 06:36 22 97 Ventilator 08/26/16 06:00 96 102/68 (79) 08/26/16 04:00 98.5 98.5 08/25/16 15:14 10.0 Physical Exam PHYSICAL EXAM GENERAL: Resting, NAD, appears comfortable. Alert HENT: Oral cavity pink, dry, poor dentition, + decay NECK: Trach, + secretions LUNGS: Rhonchi HEART: S1S2 ABD: Mildly distended, soft, BS present. + g-tube & rectal tube : Shelby EXT: Generalized edema. No cyanosis SKIN: No rash LUE-PICC. clean Labs Lab Laboratory Tests Test 08/26/16 06:25 White Blood Count 17.0 x10^3/uL (4.0-11.0) Red Blood Count 2.62 x10^6/uL (3.50-5.40) Hemoglobin 7.7 g/dL (12.0-15.5) Hematocrit 23.4 % (36.0-47.0) Mean Corpuscular Volume 89 fL (79-100) Mean Corpuscular Hemoglobin 29 pg (25-35) Mean Corpuscular Hemoglobin Concent 33 g/dL (31-37) Red Cell Distribution Width 16.6 % (11.5-14.5) Platelet Count 327 x10^3/uL (140-400) Neutrophils (%) (Auto) 82 % (31-73) Lymphocytes (%) (Auto) 8 % (24-48) Monocytes (%) (Auto) 8 % (0-9) Eosinophils (%) (Auto) 2 % (0-3) Basophils (%) (Auto) 0 % (0-3) Neutrophils # (Auto) 13.9 x10^3uL (1.8-7.7) Lymphocytes # (Auto) 1.3 x10^3/uL (1.0-4.8) Monocytes # (Auto) 1.3 x10^3/uL (0.0-1.1) Eosinophils # (Auto) 0.3 x10^3/uL (0.0-0.7) Basophils # (Auto) 0.1 x10^3/uL (0.0-0.2) Sodium Level 135 mmol/L (136-145) Potassium Level 3.6 mmol/L (3.5-5.1) Chloride Level 102 mmol/L (98-107) Carbon Dioxide Level 27 mmol/L (21-32) Anion Gap 6 (6-14) Blood Urea Nitrogen 16 mg/dL (7-20) Creatinine 0.7 mg/dL (0.6-1.0) Estimated GFR (Cockcroft-Gault) 91.8 BUN/Creatinine Ratio 23 (6-20) Glucose Level 109 mg/dL (70-99) Calcium Level 8.1 mg/dL (8.5-10.1) Total Bilirubin 0.7 mg/dL (0.2-1.0) Aspartate Amino Transf (AST/SGOT) 25 U/L (15-37) Alanine Aminotransferase (ALT/SGPT) 18 U/L (14-59) Alkaline Phosphatase 144 U/L (46-116) Total Protein 6.9 g/dL (6.4-8.2) Albumin 1.3 g/dL (3.4-5.0) Albumin/Globulin Ratio 0.2 (1.0-1.7) Objective Assessment ? Loculated pleural effusions ? cause of Fever and leukocytosis Ecoli in sputum (08/22) Fever Leukocytosis Acute anemia s/p PRBCs, 08/16, 08/20 S/p Trach/PEG 08/13 MSSA sepsis 08/01 ([facility]) -Repeat BC positive, 08/05 & 08/07. Neg 08/09 Right-sided bacterial endocarditis. -TTE. 3.0 x 2.0cm mobile mass TV Multiple pulmonary nodules/septic emboli Acute Resp failure - Intubated ? developing ARDS. S/p Bronch 08/08. MSSA IV drug use. Hep C Ileus Renal insufficiency. Severe thrombocytopenia. improved Hepatosplenomegaly on CT Plan Plan of Care Pleural effusions maybe source of Fever and leukocytosis - May need to be drained/maybe CTS eval. Await Pulm f/u Nafcillin changed to cefepime to cover for Ecoli in sputum Patient will need a total of six weeks of IV abx to treat endocarditis/ bacteremia Monitor WBC, temp in am Supportive care KAYLYNN SHAY MD August 26, 2016 07:32
[2016-08-26] MEDS: BUDESONIDE 0.5 MG/2 ML NEBU. NEB SCH ×2 (08:14→19:52)
[2016-08-26] MEDS: IPRATRPIUM/ALBUTEROL 0.5/2.5MG 3 ML NEBU. NEB SCH ×4 (08:14→19:52)
[2016-08-26] MEDS: NYSTATIN TOPICAL POWDER 15GM BOTTLE. TP SCH ×2 (08:43→21:31)
[2016-08-26] MEDS: ALPRAZolam 0.5 MG TABLET PEG SCH ×3 (08:43→21:31)
[2016-08-26] MEDS: FAMOTIDINE 20 MG/2 ML VIAL IVP SCH (08:43)
[2016-08-26] MEDS: CHLORHEXIDINE 0.12% 15 ML MOUTHWASH. SWSP SCH ×2 (08:45→21:31)
--- NOTE | 2016-08-26 09:19 | PDOC ---
PROGRESS NOTES Chief Complaint Chief Complaint Sepsis Acute hypoxic respir failure ASSESSMENT AND PLAN: 1. Sepsis: resolved 2. 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 MSSA. on cefepime 3. PNA: septic emboli. sputum now with heavy growth E.coli. bilat effusions suspicious for empyemas. planned CT placement later today 4. Acute respir failure: trached, on vent. weaning as per Pulm service 5. Anemia: severe, recurrent: prob multifactorial, incl severe inflammation, HCV toxicity. obtain anemia profile to r/o deficiencies. 6. Thrombocytopenia: 2/2 infection, now resolved. monitor 7. [place]: resolved 8. Hep C: new dx during current admit. F/U on O/P basis for rx 9. Polysubstance abuse: still on fentanyl drip. wean 10. Agitation: on seroquel, Xanax. Haldol PRN 11. Malnutrition: severe, POA, weight loss prior to admit, albumin low History of Present Illness History of Present Illness mild respir distress with copious phlegm in trach. better with suctioning. Vitals Vitals Vital Signs Date Time Temp Pulse Resp B/P (MAP) Pulse Ox O2 Delivery O2 Flow Rate FiO2 08/26/16 09:00 98 32 115/70 (85) 98 Ventilator 08/26/16 08:00 08/25/16 15:14 10.0 Physical Exam General: Alert, Cooperative, No acute distress Heart: Normal S1, Normal S2, No murmurs Lungs: Crackles, Other (dull at bases. ) Abdomen: Normal bowel sounds, Other (Hepatosplenomegaly present) Extremities: No cyanosis, No edema Skin: No breakdown, No significant lesion Labs LABS Laboratory Tests Test 08/26/16 06:25 White Blood Count 17.0 x10^3/uL (4.0-11.0) Red Blood Count 2.62 x10^6/uL (3.50-5.40) Hemoglobin 7.7 g/dL (12.0-15.5) Hematocrit 23.4 % (36.0-47.0) Mean Corpuscular Volume 89 fL (79-100) Mean Corpuscular Hemoglobin 29 pg (25-35) Mean Corpuscular Hemoglobin Concent 33 g/dL (31-37) Red Cell Distribution Width 16.6 % (11.5-14.5) Platelet Count 327 x10^3/uL (140-400) Neutrophils (%) (Auto) 82 % (31-73) Lymphocytes (%) (Auto) 8 % (24-48) Monocytes (%) (Auto) 8 % (0-9) Eosinophils (%) (Auto) 2 % (0-3) Basophils (%) (Auto) 0 % (0-3) Neutrophils # (Auto) 13.9 x10^3uL (1.8-7.7) Lymphocytes # (Auto) 1.3 x10^3/uL (1.0-4.8) Monocytes # (Auto) 1.3 x10^3/uL (0.0-1.1) Eosinophils # (Auto) 0.3 x10^3/uL (0.0-0.7) Basophils # (Auto) 0.1 x10^3/uL (0.0-0.2) Sodium Level 135 mmol/L (136-145) Potassium Level 3.6 mmol/L (3.5-5.1) Chloride Level 102 mmol/L (98-107) Carbon Dioxide Level 27 mmol/L (21-32) Anion Gap 6 (6-14) Blood Urea Nitrogen 16 mg/dL (7-20) Creatinine 0.7 mg/dL (0.6-1.0) Estimated GFR (Cockcroft-Gault) 91.8 BUN/Creatinine Ratio 23 (6-20) Glucose Level 109 mg/dL (70-99) Calcium Level 8.1 mg/dL (8.5-10.1) Total Bilirubin 0.7 mg/dL (0.2-1.0) Aspartate Amino Transf (AST/SGOT) 25 U/L (15-37) Alanine Aminotransferase (ALT/SGPT) 18 U/L (14-59) Alkaline Phosphatase 144 U/L (46-116) Total Protein 6.9 g/dL (6.4-8.2) Albumin 1.3 g/dL (3.4-5.0) Albumin/Globulin Ratio 0.2 (1.0-1.7) Comment Review of Relevant Labs Medications Vitals/I & O Nutrition Consultation Dietary Evaluation: Recommendations by RD: PPN/TPN Comments: Pt is s/p PEG placement 08/14 Rec. continue TF's with Isosource HN, goal rate 45 ml/hr flushes 150ml q6h Continue 1 packet prostat BID at 8AM and 6PM for optimal protein intake Expected Outcomes/Goals: tolerate the TF's via PEG at goal rate meet 75% estimated nutrition needs Malnutrition Findings: Reduced Chiropractor Assistant Strength: N/A Reduced Chiropractor Assistant Strength (Non-Sev: N/A Malnutrition related to morbid: No Weight Status: Overweight Fluid Accumulation (N/A): N/A JUANITO PRETTY MD August 26, 2016 09:19
--- NOTE | 2016-08-26 10:40 | PDOC ---
PULMONARY PROGRESS NOTES Subjective on vent, alert has sob, mod trach secretion didn't tolerate weaning yesterday Vitals Vital Signs Date Time Temp Pulse Resp B/P (MAP) Pulse Ox O2 Delivery O2 Flow Rate FiO2 08/26/16 10:00 104 30 122/81 (95) 95 Ventilator 08/26/16 08:00 08/25/16 15:14 10.0 Comments ros as mentioned as above other sys otherwise neg ROS: No Chest Pain, No Abdominal Pain General: Alert, No acute distress HEENT: Other (nc at perrl. poor dentition, nose clear) Lungs: Other (coarse bs) Cardiovascular: S1, S2, Other Abdomen: Soft, Non-tender, Other (no mass) Neuro Exam: Alert Extremities: Other (edema) Skin: Warm Labs Laboratory Tests Test 08/25/16 06:00 08/26/16 06:25 White Blood Count 17.5 x10^3/uL (4.0-11.0) 17.0 x10^3/uL (4.0-11.0) Red Blood Count 2.77 x10^6/uL (3.50-5.40) 2.62 x10^6/uL (3.50-5.40) Hemoglobin 8.1 g/dL (12.0-15.5) 7.7 g/dL (12.0-15.5) Hematocrit 25.1 % (36.0-47.0) 23.4 % (36.0-47.0) Mean Corpuscular Volume 91 fL (79-100) 89 fL (79-100) Mean Corpuscular Hemoglobin 29 pg (25-35) 29 pg (25-35) Mean Corpuscular Hemoglobin Concent 32 g/dL (31-37) 33 g/dL (31-37) Red Cell Distribution Width 16.8 % (11.5-14.5) 16.6 % (11.5-14.5) Platelet Count 363 x10^3/uL (140-400) 327 x10^3/uL (140-400) Neutrophils (%) (Auto) 81 % (31-73) 82 % (31-73) Lymphocytes (%) (Auto) 9 % (24-48) 8 % (24-48) Monocytes (%) (Auto) 7 % (0-9) 8 % (0-9) Eosinophils (%) (Auto) 2 % (0-3) 2 % (0-3) Basophils (%) (Auto) 0 % (0-3) 0 % (0-3) Neutrophils # (Auto) 14.1 x10^3uL (1.8-7.7) 13.9 x10^3uL (1.8-7.7) Lymphocytes # (Auto) 1.6 x10^3/uL (1.0-4.8) 1.3 x10^3/uL (1.0-4.8) Monocytes # (Auto) 1.3 x10^3/uL (0.0-1.1) 1.3 x10^3/uL (0.0-1.1) Eosinophils # (Auto) 0.4 x10^3/uL (0.0-0.7) 0.3 x10^3/uL (0.0-0.7) Basophils # (Auto) 0.1 x10^3/uL (0.0-0.2) 0.1 x10^3/uL (0.0-0.2) Segmented Neutrophils % 71 % (35-66) Band Neutrophils % 14 % (0-9) Lymphocytes % 10 % (24-48) Monocytes % 2 % (0-10) Eosinophils % 3 % (0-5) Platelet Estimate Adequate (ADEQUATE) Hypochromasia Slight Anisocytosis Slight Microcytosis Slight Sodium Level 136 mmol/L (136-145) 135 mmol/L (136-145) Potassium Level 3.2 mmol/L (3.5-5.1) 3.6 mmol/L (3.5-5.1) Chloride Level 103 mmol/L (98-107) 102 mmol/L (98-107) Carbon Dioxide Level 25 mmol/L (21-32) 27 mmol/L (21-32) Anion Gap 8 (6-14) 6 (6-14) Blood Urea Nitrogen 18 mg/dL (7-20) 16 mg/dL (7-20) Creatinine 0.8 mg/dL (0.6-1.0) 0.7 mg/dL (0.6-1.0) Estimated GFR (Cockcroft-Gault) 78.7 91.8 BUN/Creatinine Ratio 23 (6-20) 23 (6-20) Glucose Level 118 mg/dL (70-99) 109 mg/dL (70-99) Calcium Level 8.3 mg/dL (8.5-10.1) 8.1 mg/dL (8.5-10.1) Magnesium Level 2.1 mg/dL (1.8-2.4) Total Bilirubin 0.7 mg/dL (0.2-1.0) 0.7 mg/dL (0.2-1.0) Aspartate Amino Transf (AST/SGOT) 18 U/L (15-37) 25 U/L (15-37) Alanine Aminotransferase (ALT/SGPT) 12 U/L (14-59) 18 U/L (14-59) Alkaline Phosphatase 133 U/L (46-116) 144 U/L (46-116) Total Protein 6.9 g/dL (6.4-8.2) 6.9 g/dL (6.4-8.2) Albumin 1.4 g/dL (3.4-5.0) 1.3 g/dL (3.4-5.0) Albumin/Globulin Ratio 0.3 (1.0-1.7) 0.2 (1.0-1.7) Laboratory Tests Test 08/26/16 06:25 White Blood Count 17.0 x10^3/uL (4.0-11.0) Red Blood Count 2.62 x10^6/uL (3.50-5.40) Hemoglobin 7.7 g/dL (12.0-15.5) Hematocrit 23.4 % (36.0-47.0) Mean Corpuscular Volume 89 fL (79-100) Mean Corpuscular Hemoglobin 29 pg (25-35) Mean Corpuscular Hemoglobin Concent 33 g/dL (31-37) Red Cell Distribution Width 16.6 % (11.5-14.5) Platelet Count 327 x10^3/uL (140-400) Neutrophils (%) (Auto) 82 % (31-73) Lymphocytes (%) (Auto) 8 % (24-48) Monocytes (%) (Auto) 8 % (0-9) Eosinophils (%) (Auto) 2 % (0-3) Basophils (%) (Auto) 0 % (0-3) Neutrophils # (Auto) 13.9 x10^3uL (1.8-7.7) Lymphocytes # (Auto) 1.3 x10^3/uL (1.0-4.8) Monocytes # (Auto) 1.3 x10^3/uL (0.0-1.1) Eosinophils # (Auto) 0.3 x10^3/uL (0.0-0.7) Basophils # (Auto) 0.1 x10^3/uL (0.0-0.2) Sodium Level 135 mmol/L (136-145) Potassium Level 3.6 mmol/L (3.5-5.1) Chloride Level 102 mmol/L (98-107) Carbon Dioxide Level 27 mmol/L (21-32) Anion Gap 6 (6-14) Blood Urea Nitrogen 16 mg/dL (7-20) Creatinine 0.7 mg/dL (0.6-1.0) Estimated GFR (Cockcroft-Gault) 91.8 BUN/Creatinine Ratio 23 (6-20) Glucose Level 109 mg/dL (70-99) Calcium Level 8.1 mg/dL (8.5-10.1) Total Bilirubin 0.7 mg/dL (0.2-1.0) Aspartate Amino Transf (AST/SGOT) 25 U/L (15-37) Alanine Aminotransferase (ALT/SGPT) 18 U/L (14-59) Alkaline Phosphatase 144 U/L (46-116) Total Protein 6.9 g/dL (6.4-8.2) Albumin 1.3 g/dL (3.4-5.0) Albumin/Globulin Ratio 0.2 (1.0-1.7) Medications Active Scripts Medications Dose Route/Sig Days Date Category No Known Medications Prior To Admisstion (Info) Each 1 Each 08/06/16 Reported Comments cxr reviewed, extensive bilateral pulmonary infiltrates with bilateral pleural effusions, partially loculated on the left. Similar findings were present on 08/17/2016. Impression . 1. Acute hypoxemic respiratory failure, multifactorial in etiology / increase secretions , repeat sputum with E-Coli 2. Hold CPAP trials 3. Bilateral pulmonary nodules with cavitation, due to septic emboli. 4. Endocarditis. right sided, improving vegetations 5. ? chronic obstructive pulmonary disease. 6. Leukocytosis./fever, suspect due to empyema, bilateral 7. Anemia. 8. Thrombocytopenia. off lovenox 10. Intravenous drug abuse. 11. Tobacco habituation. 12. MSSA septicemia/pneumonia/ CHF 13. ct chest reviewed/ bilateral loculated effusion, suspect empyema, will need bilateral chest tubes Plan . Trach secretions for c/s, E-coli, on antibiotic per ID bilateral chest tubes IR directed/ follow cultures of pleural fluid cont vent support, vent setting reviewed, weaning as tolerated s/p trach antibiotics per ID, cont abx on cefepime now bronchodilators keep I<O dc lovenox, continues to have low Hb and need for transfusion. pepcid for prophylaxis discussed w pt rn, rt CARLEY WORKMAN MD August 26, 2016 10:40
[2016-08-26] MEDS ORDERED: POTASSIUM CHLORIDE 20MEQ 50 ML IV SCH (11:30)
[2016-08-26] MEDS: ACETAMINOPHEN 650 MG/20.3 ML SOLUTION. PEG PRN (11:56)
--- NOTE | 2016-08-26 13:43 | PDOC ---
G I PROGRESS NOTE Subjective More awake and alert. Indicates no GI issues. Objective Tolerating tube feedings. Physical Exam Abdomen benign. PEG OK. Review of Relevant I have reviewed the following items shanta (where applicable) has been applied. Labs Laboratory Tests Test 08/25/16 06:00 08/26/16 06:25 White Blood Count 17.5 x10^3/uL (4.0-11.0) 17.0 x10^3/uL (4.0-11.0) Red Blood Count 2.77 x10^6/uL (3.50-5.40) 2.62 x10^6/uL (3.50-5.40) Hemoglobin 8.1 g/dL (12.0-15.5) 7.7 g/dL (12.0-15.5) Hematocrit 25.1 % (36.0-47.0) 23.4 % (36.0-47.0) Mean Corpuscular Volume 91 fL (79-100) 89 fL (79-100) Mean Corpuscular Hemoglobin 29 pg (25-35) 29 pg (25-35) Mean Corpuscular Hemoglobin Concent 32 g/dL (31-37) 33 g/dL (31-37) Red Cell Distribution Width 16.8 % (11.5-14.5) 16.6 % (11.5-14.5) Platelet Count 363 x10^3/uL (140-400) 327 x10^3/uL (140-400) Neutrophils (%) (Auto) 81 % (31-73) 82 % (31-73) Lymphocytes (%) (Auto) 9 % (24-48) 8 % (24-48) Monocytes (%) (Auto) 7 % (0-9) 8 % (0-9) Eosinophils (%) (Auto) 2 % (0-3) 2 % (0-3) Basophils (%) (Auto) 0 % (0-3) 0 % (0-3) Neutrophils # (Auto) 14.1 x10^3uL (1.8-7.7) 13.9 x10^3uL (1.8-7.7) Lymphocytes # (Auto) 1.6 x10^3/uL (1.0-4.8) 1.3 x10^3/uL (1.0-4.8) Monocytes # (Auto) 1.3 x10^3/uL (0.0-1.1) 1.3 x10^3/uL (0.0-1.1) Eosinophils # (Auto) 0.4 x10^3/uL (0.0-0.7) 0.3 x10^3/uL (0.0-0.7) Basophils # (Auto) 0.1 x10^3/uL (0.0-0.2) 0.1 x10^3/uL (0.0-0.2) Segmented Neutrophils % 71 % (35-66) Band Neutrophils % 14 % (0-9) Lymphocytes % 10 % (24-48) Monocytes % 2 % (0-10) Eosinophils % 3 % (0-5) Platelet Estimate Adequate (ADEQUATE) Hypochromasia Slight Anisocytosis Slight Microcytosis Slight Sodium Level 136 mmol/L (136-145) 135 mmol/L (136-145) Potassium Level 3.2 mmol/L (3.5-5.1) 3.6 mmol/L (3.5-5.1) Chloride Level 103 mmol/L (98-107) 102 mmol/L (98-107) Carbon Dioxide Level 25 mmol/L (21-32) 27 mmol/L (21-32) Anion Gap 8 (6-14) 6 (6-14) Blood Urea Nitrogen 18 mg/dL (7-20) 16 mg/dL (7-20) Creatinine 0.8 mg/dL (0.6-1.0) 0.7 mg/dL (0.6-1.0) Estimated GFR (Cockcroft-Gault) 78.7 91.8 BUN/Creatinine Ratio 23 (6-20) 23 (6-20) Glucose Level 118 mg/dL (70-99) 109 mg/dL (70-99) Calcium Level 8.3 mg/dL (8.5-10.1) 8.1 mg/dL (8.5-10.1) Magnesium Level 2.1 mg/dL (1.8-2.4) Total Bilirubin 0.7 mg/dL (0.2-1.0) 0.7 mg/dL (0.2-1.0) Aspartate Amino Transf (AST/SGOT) 18 U/L (15-37) 25 U/L (15-37) Alanine Aminotransferase (ALT/SGPT) 12 U/L (14-59) 18 U/L (14-59) Alkaline Phosphatase 133 U/L (46-116) 144 U/L (46-116) Total Protein 6.9 g/dL (6.4-8.2) 6.9 g/dL (6.4-8.2) Albumin 1.4 g/dL (3.4-5.0) 1.3 g/dL (3.4-5.0) Albumin/Globulin Ratio 0.3 (1.0-1.7) 0.2 (1.0-1.7) Laboratory Tests Test 08/26/16 06:25 White Blood Count 17.0 x10^3/uL (4.0-11.0) Red Blood Count 2.62 x10^6/uL (3.50-5.40) Hemoglobin 7.7 g/dL (12.0-15.5) Hematocrit 23.4 % (36.0-47.0) Mean Corpuscular Volume 89 fL (79-100) Mean Corpuscular Hemoglobin 29 pg (25-35) Mean Corpuscular Hemoglobin Concent 33 g/dL (31-37) Red Cell Distribution Width 16.6 % (11.5-14.5) Platelet Count 327 x10^3/uL (140-400) Neutrophils (%) (Auto) 82 % (31-73) Lymphocytes (%) (Auto) 8 % (24-48) Monocytes (%) (Auto) 8 % (0-9) Eosinophils (%) (Auto) 2 % (0-3) Basophils (%) (Auto) 0 % (0-3) Neutrophils # (Auto) 13.9 x10^3uL (1.8-7.7) Lymphocytes # (Auto) 1.3 x10^3/uL (1.0-4.8) Monocytes # (Auto) 1.3 x10^3/uL (0.0-1.1) Eosinophils # (Auto) 0.3 x10^3/uL (0.0-0.7) Basophils # (Auto) 0.1 x10^3/uL (0.0-0.2) Sodium Level 135 mmol/L (136-145) Potassium Level 3.6 mmol/L (3.5-5.1) Chloride Level 102 mmol/L (98-107) Carbon Dioxide Level 27 mmol/L (21-32) Anion Gap 6 (6-14) Blood Urea Nitrogen 16 mg/dL (7-20) Creatinine 0.7 mg/dL (0.6-1.0) Estimated GFR (Cockcroft-Gault) 91.8 BUN/Creatinine Ratio 23 (6-20) Glucose Level 109 mg/dL (70-99) Calcium Level 8.1 mg/dL (8.5-10.1) Total Bilirubin 0.7 mg/dL (0.2-1.0) Aspartate Amino Transf (AST/SGOT) 25 U/L (15-37) Alanine Aminotransferase (ALT/SGPT) 18 U/L (14-59) Alkaline Phosphatase 144 U/L (46-116) Total Protein 6.9 g/dL (6.4-8.2) Albumin 1.3 g/dL (3.4-5.0) Albumin/Globulin Ratio 0.2 (1.0-1.7) Microbiology 08/12/16 Blood Fungal Culture - Preliminary, Resulted 08/12/16 Fungal Culture Result 1 - Preliminary, Resulted 08/22/16 Gram Stain - Final, Complete Medications Current Medications Amino Acids/ Glycerin/ Electrolytes 1,000 ml @ 100 mls/hr Q10H IV Last administered on 08/05/16 02:40; Start 08/02/16 at 03:00; Stop 08/05/16 at 08:50 ; Status DC Morphine Sulfate 2 mg PRN Q2HR PRN IV SEVERE PAIN Last administered on 11:59; Start 08/02/16 at 02:30; Stop 08/02/16 at 13:28; Status DC Daptomycin 220 mg/ Sodium Chloride 50 ml @ 100 mls/hr Q24H IV ; Start 08/02/16 at 09:15; Stop 08/02/16 at 15:58; Status DC Cefepime HCl 1 gm/ Sodium Chloride 50 ml @ 100 mls/hr Q12HR IV Last administered on 08/04/16 08:10; Start 08/02/16 at 10:00; Stop 08/04/16 at 10:33 ; Status DC Daptomycin 220 mg/ Sodium Chloride 50 ml @ 100 mls/hr ONCE ONCE IV ; Start at 10:00; Stop 08/02/16 at 10:29; Status Cancel Potassium Chloride (Klor-Con) 40 meq 1X ONCE PO Last administered on 10:17; Start 08/02/16 at 09:45; Stop 08/02/16 at 09:46; Status DC Daptomycin 220 mg/ Sodium Chloride 50 ml @ 100 mls/hr Q24H IV Last administered on 08/03/16 09:43; Start 08/02/16 at 10:15; Stop 08/03/16 at 10:29 ; Status DC Potassium Chloride (Klor-Con) 40 meq 1X ONCE PO Last administered on 12:57; Start 08/02/16 at 12:30; Stop 08/02/16 at 12:36; Status DC Morphine Sulfate 5 mg PRN Q2HRS PRN IV MODERATE TO SEVERE PAIN Last administered on 08/26/16 06:06; Start 08/02/16 at 13:30 Morphine Sulfate 8 mg PRN Q2HRS PRN IV MODERATE TO SEVERE PAIN Last administered on 08/04/16 14:58; Start 08/02/16 at 13:30 Acetaminophen (Tylenol) 650 mg PRN Q6HRS PRN PO TEMP GREATER THAN 100.4 Last administered on 08/26/16 00:24; Start 08/02/16 at 14:45 Lactated Ringer's 1,000 ml @ 50 mls/hr Q20H IV ; Start 08/05/16 at 07:00; Stop 08/05/16 at 18:13; Status DC Daptomycin 220 mg/ Sodium Chloride 50 ml @ 100 mls/hr Q24H IV ; Start 08/03/16 at 11:00; Status Cancel Potassium Chloride (Klor-Con) 40 meq 1X ONCE PO Last administered on 17:41; Start 08/02/16 at 17:15; Stop 08/02/16 at 17:18; Status DC Potassium Chloride (Klor-Con) 40 meq BIDWMEALS PO ; Start 08/03/16 at 08:00; Stop 08/03/16 at 11:08; Status DC Morphine Sulfate 5 mg 1X ONCE IV Last administered on 08/02/16 21:45; Start 08/02/16 at 21:30; Stop 08/02/16 at 21:33; Status DC Lorazepam (Ativan) 1 mg 1X ONCE IV Last administered on 08/02/16 21:30; Start 08/02/16 at 21:30; Stop 08/02/16 at 21:33; Status DC Acetaminophen (Acetaminophen Supp) 650 mg PRN Q6HRS PRN AK MILD PAIN / TEMP Last administered on 08/13/16 03:13; Start 08/03/16 at 01:15 Albuterol/ Ipratropium (Duoneb) 3 ml RTQID NEB Last administered on 08/26/16 12 :17; Start 08/03/16 at 08:00 Budesonide (Pulmicort) 0.5 mg RTBID NEB Last administered on 08/26/16 08:14; Start 08/03/16 at 08:00 Pantoprazole Sodium (Protonix Vial) 40 mg 1X ONCE IVP Last administered on 10:06; Start 08/03/16 at 08:00; Stop 08/03/16 at 08:01; Status DC Daptomycin 320 mg/ Sodium Chloride 50 ml @ 100 mls/hr Q24H IV Last administered on 08/04/16 10:03; Start 08/04/16 at 10:00; Stop 08/04/16 at 10:33 ; Status DC Lorazepam (Ativan) 0.5 mg PRN Q6HRS PRN IV ANXIETY / AGITATION Last administered on 08/04/16 09:12; Start 08/03/16 at 11:15; Stop 08/07/16 at 11:02 ; Status DC Lorazepam (Ativan) 0.5 mg 1X ONCE IV Last administered on 08/04/16 10:00; Start 08/04/16 at 10:00; Stop 08/04/16 at 10:01; Status DC Morphine Sulfate 5 mg 1X ONCE IV Last administered on 08/04/16 10:00; Start 08/04/16 at 10:00; Stop 08/04/16 at 10:01; Status DC Lorazepam (Ativan) 0.5 mg PRN Q4HRS PRN IV ANXIETY / AGITATION Last administered on 08/25/16 02:29; Start 08/04/16 at 10:00 Nafcillin Sodium 2 gm/Sodium Chloride 100 ml @ 200 mls/hr Q4HRS IV Last administered on 08/09/16 10:10; Start 08/04/16 at 12:00; Stop 08/09/16 at 11:49 ; Status DC Propofol 100 ml @ As Directed STK-MED ONCE IV ; Start 08/04/16 at 16:10; Stop 08/04/16 at 16:11; Status DC Succinylcholine Chloride (Anectine) 200 mg STK-MED ONCE .ROUTE ; Start 08/04/16 at 16:14; Stop 08/04/16 at 16:15; Status DC Succinylcholine Chloride (Anectine) 200 mg 1X ONCE IV ; Start 08/04/16 at 16:45 ; Stop 08/04/16 at 16:46; Status DC Propofol 100 ml @ 0 mls/hr CONT PRN IV SEE I/O RECORD Last administered on 08/17 10:18; Start 08/04/16 at 16:45 Lorazepam (Ativan) 0.5 mg 1X ONCE IV Last administered on 08/04/16 16:45; Start 08/04/16 at 16:45; Stop 08/04/16 at 16:46; Status DC Morphine Sulfate 5 mg 1X ONCE IV Last administered on 08/04/16 16:44; Start 08/04/16 at 16:45; Stop 08/04/16 at 16:46; Status DC Fentanyl Citrate 30 ml @ 0 mls/hr CONT PRN IV PROTOCOL Last administered on 08/26 12:13; Start 08/04/16 at 16:45 Chlorhexidine Gluconate (Peridex) 15 ml BID MM Last administered on 08/17/16 10:18; Start 08/04/16 at 21:00; Stop 08/17/16 at 19:36; Status DC Famotidine (Pepcid) 20 mg BID IVP Last administered on 08/26/16 08:43; Start at 17:00 Sodium Chloride 1,000 ml @ 100 mls/hr Q10H IV Last administered on 08/07/16 04:35; Start 08/05/16 at 09:00; Stop 08/07/16 at 08:59; Status DC Succinylcholine Chloride (Anectine) 200 mg STK-MED ONCE .ROUTE ; Start 08/04/16 at 16:00; Stop 08/05/16 at 12:32; Status DC Lorazepam (Ativan) 2 mg 1X ONCE IV Last administered on 08/05/16 20:43; Start 08/05/16 at 21:00; Stop 08/05/16 at 21:01; Status DC Furosemide (Lasix) 40 mg 1X PRN PRN IV blood transfusion Last administered on 14:17; Start 08/06/16 at 08:00; Stop 08/07/16 at 07:59; Status DC Sodium Bicarbonate 50 meq 1X ONCE IV Last administered on 08/06/16 14:06; Start 08/06/16 at 12:00; Stop 08/06/16 at 12:01; Status DC Calcium Chloride 1,000 mg STK-MED ONCE IV ; Start 08/04/16 at 12:00; Stop at 15:13; Status DC Epinephrine HCl (Epinephrine Syringe) 2 mg STK-MED ONCE .ROUTE ; Start 08/04/16 at 12:00; Stop 08/06/16 at 15:13; Status DC Sodium Bicarbonate 100 meq STK-MED ONCE .ROUTE ; Start 08/04/16 at 12:00; Stop 08/06/16 at 15:13; Status DC Amino Acids/ Glycerin/ Electrolytes 1,000 ml @ 100 mls/hr Q10H IV Last administered on 08/08/16 12:33; Start 08/07/16 at 10:00; Stop 08/09/16 at 09:42 ; Status DC Enoxaparin Sodium (Lovenox 40mg Syringe) 40 mg Q24H SQ Last administered on 13:10; Start 08/07/16 at 13:00; Stop 08/10/16 at 10:43; Status DC Vecuronium [place] (Norcuron Bolus) 10 mg STK-MED ONCE IV ; Start 08/07/16 at 13 :56; Stop 08/07/16 at 13:57; Status DC Vecuronium [place] (Norcuron Bolus) 6 mg 1X ONCE IV Last administered on 14:06; Start 08/07/16 at 14:00; Stop 08/07/16 at 14:05; Status DC Sodium Bicarbonate 50 meq 1X ONCE IV Last administered on 08/08/16 11:46; Start 08/08/16 at 11:45; Stop 08/08/16 at 11:46; Status DC Nystatin (Nystop) 1 james BID TP Last administered on 08/26/16 08:43; Start 08/08 at 21:00 Linezolid 300 ml @ 300 mls/hr Q12HR IV Last administered on 08/14/16 20:51; Start 08/09/16 at 09:00; Stop 08/15/16 at 07:21; Status DC Sodium Chloride 1,000 ml @ 20 mls/hr Q24H IV Last administered on 08/26/16 06: 41; Start 08/09/16 at 09:45 Sodium Bicarbonate 150 meq/Dextrose 1,150 ml @ 100 mls/hr 1X ONCE IV Last administered on 08/09/16 12:25; Start 08/09/16 at 11:30; Stop 08/09/16 at 22:59 ; Status DC Piperacillin Sod/ Tazobactam Sod (Zosyn Per Pharmacy) 1 each PRN DAILY PRN MC SEE COMMENTS; Start 08/09/16 at 12:00; Stop 08/14/16 at 07:40; Status DC Piperacillin Sod/ Tazobactam Sod 4.5 gm/Sodium Chloride 100 ml @ 200 mls/hr Q6HRS IV Last administered on 08/14/16 05:58; Start 08/09/16 at 12:30; Stop at 07:33; Status DC Vecuronium [place] (Norcuron Bolus) 5 mg PRN Q4HRS PRN IV INCREASED RESPIRATORY ,NOT RELI Last administered on 08/11/16 02:56; Start 08/09/16 at 13:30 Potassium Chloride 50 ml @ 100 mls/hr Q1H IV ; Start 08/10/16 at 09:30; Stop at 10:59; Status Cancel Potassium Chloride 100 ml @ 100 mls/hr Q1H IV Last administered on 08/10/16 16:28; Start 08/10/16 at 10:30; Stop 08/10/16 at 14:29; Status DC Potassium Chloride (KCl Oral Soln) 60 meq 1X ONCE PEG Last administered on 11:16; Start 08/10/16 at 11:00; Stop 08/10/16 at 11:01; Status DC Sodium Bicarbonate 150 meq/Dextrose 1,150 ml @ 100 mls/hr [id number] IV Last administered on 08/10/16 11:14; Start 08/10/16 at 11:00; Stop 08/10/16 at 22:29 ; Status DC Enoxaparin Sodium (Lovenox 40mg Syringe) 40 mg Q24H SQ ; Start 08/10/16 at 13:00 ; Stop 08/10/16 at 13:00; Status DC Micafungin Sodium 100 mg/Dextrose 100 ml @ 100 mls/hr Q24H IV Last administered on 08/13/16 16:26; Start 08/11/16 at 16:00; Stop 08/14/16 at 07:33 ; Status DC Furosemide (Lasix) 40 mg 1X ONCE IVP Last administered on 08/12/16 08:38; Start 08/12/16 at 08:00; Stop 08/12/16 at 08:06; Status DC Morphine Sulfate 1 mg PRN Q10MIN PRN IV SEVERE PAIN; Start 08/13/16 at 07:00; Stop 08/14/16 at 06:59; Status DC Lactated Ringer's 1,000 ml @ 0 mls/hr Q0M IV ; Start 08/13/16 at 07:00; Stop at 18:59; Status DC Lidocaine HCl 2 ml PRN 1X PRN ID PRIOR TO IV START; Start 08/13/16 at 07:00; Stop 08/14/16 at 06:59; Status DC Hydromorphone HCl (Dilaudid) 0.5 mg PRN Q10MIN PRN IV SEV PAIN, Second choice; Start 08/13/16 at 07:00; Stop 08/14/16 at 06:59; Status DC Prochlorperazine Edisylate (Compazine) 5 mg PACU PRN PRN IV NAUSEA, MRX1; Start 08/13/16 at 07:00; Stop 08/14/16 at 06:59; Status DC Morphine Sulfate 1 mg PRN Q10MIN PRN IV SEVERE PAIN; Start 08/13/16 at 07:00; Stop 08/14/16 at 06:59; Status DC Lactated Ringer's 1,000 ml @ 0 mls/hr Q0M IV ; Start 08/13/16 at 07:00; Stop at 18:59; Status DC Lidocaine HCl 2 ml PRN 1X PRN ID PRIOR TO IV START; Start 08/13/16 at 07:00; Stop 08/14/16 at 06:59; Status DC Hydromorphone HCl (Dilaudid) 0.5 mg PRN Q10MIN PRN IV SEV PAIN, Second choice; Start 08/13/16 at 07:00; Stop 08/14/16 at 06:59; Status DC Prochlorperazine Edisylate (Compazine) 5 mg PACU PRN PRN IV NAUSEA, MRX1; Start 08/13/16 at 07:00; Stop 08/14/16 at 06:59; Status DC Potassium Chloride 50 ml @ 50 mls/hr Q1H IV Last administered on 08/13/16 07: 57; Start 08/13/16 at 07:00; Stop 08/13/16 at 08:59; Status DC Rocuronium [place] (Zemuron) 50 mg STK-MED ONCE .ROUTE ; Start 08/13/16 at 12:50 ; Stop 08/13/16 at 12:51; Status DC Propofol 20 ml @ As Directed STK-MED ONCE IV ; Start 08/13/16 at 12:53; Stop at 12:54; Status DC Sevoflurane (Ultane) 30 ml STK-MED ONCE IH ; Start 08/13/16 at 14:04; Stop 08/13 at 14:05; Status DC Albumin Human 250 ml @ 100 mls/hr 1X ONCE IV Last administered on 08/13/16 23:38; Start 08/13/16 at 18:00; Stop 08/13/16 at 20:29; Status DC Albumin Human 500 ml @ 100 mls/hr 1X ONCE IV Last administered on 08/13/16 18:15; Start 08/13/16 at 18:00; Stop 08/13/16 at 22:59; Status DC Potassium Chloride 50 ml @ 50 mls/hr Q1H IV Last administered on 08/14/16 10: 46; Start 08/14/16 at 08:00; Stop 08/14/16 at 09:59; Status DC Nafcillin Sodium 2 gm/Sodium Chloride 100 ml @ 200 mls/hr Q4HRS IV Last administered on 08/23/16 08:51; Start 08/14/16 at 08:00; Stop 08/23/16 at 10:44; Status DC Enoxaparin Sodium (Lovenox 40mg Syringe) 40 mg Q24H SQ Last administered on 08/25 12:44; Start 08/14/16 at 12:00; Stop 08/26/16 at 11:53; Status DC Potassium Chloride (KCl Oral Soln) 40 meq 1X ONCE PEG Last administered on 07:54; Start 08/16/16 at 07:00; Stop 08/16/16 at 07:01; Status DC Potassium Chloride (KCl Oral Soln) 40 meq 1X ONCE PEG Last administered on 14:01; Start 08/16/16 at 12:00; Stop 08/16/16 at 12:01; Status DC Magnesium Sulfate/ Dextrose 50 ml @ 25 mls/hr 1X ONCE IV Last administered on 08/16/16 17:14; Start 08/16/16 at 16:30; Stop 08/16/16 at 18:29; Status DC Potassium Chloride (Klor-Con) 40 meq 1X ONCE PO ; Start 08/17/16 at 13:30; Stop 08/17/16 at 13:31; Status Cancel Potassium Chloride (KCl Oral Soln) 40 meq 1X ONCE PO Last administered on 08/17 15:34; Start 08/17/16 at 13:30; Stop 08/17/16 at 14:27; Status DC Potassium Chloride 100 ml @ 100 mls/hr PRN Q1HR PRN IV HYPOKALEMIA PER ICU PROTOCOL; Start 08/17/16 at 13:30; Status Cancel Potassium Chloride 50 ml @ 25 mls/hr PRN Q2HR PRN IV HYPOKALEMIA PER ICU PROTOCOL Last administered on 08/21/16 13:29; Start 08/17/16 at 13:30; Stop 08/21 at 13:34; Status DC Potassium Chloride (Klor-Con) 40 meq PRN Q2HR PRN PO HYPOKALEMIA PER ICU PROTOCOL; Start 08/17/16 at 13:30 Potassium Chloride 100 ml @ 100 mls/hr PRN Q1HR PRN IV HYPOKALEMIA PER ICU PROTOCOL; Start 08/17/16 at 13:30 Potassium Chloride 50 ml @ 25 mls/hr PRN Q2HR PRN IV HYPOKALEMIA PER ICU PROTOCOL; Start 08/17/16 at 13:30 Potassium Chloride (Klor-Con) 40 meq PRN Q2HR PRN PO HYPOKALEMIA PER ICU PROTOCOL; Start 08/17/16 at 13:30 Potassium Chloride 100 ml @ 100 mls/hr PRN Q1HR PRN IV HYPOKALEMIA PER ICU PROTOCOL; Start 08/17/16 at 13:30; Status Cancel Potassium Chloride 50 ml @ 25 mls/hr PRN Q2HR PRN IV HYPOKALEMIA PER ICU PROTOCOL; Start 08/17/16 at 14:00 Magnesium Sulfate/ Dextrose 100 ml @ 50 mls/hr PRN DAILY PRN IV HYPOMAGNESIA PER ICU PROTOCOL Last administered on 08/20/16 22:26; Start 08/18/16 at 09:00 Potassium Phos/ Sodium Phos (Phos-Nak) 1 pkt BID PO ; Start 08/17/16 at 21:00; Stop 08/18/16 at 09:01; Status DC Sodium Phosphate 40 mmol/Dextrose 263.3333 ml @ 62.5 mls/hr PRN 1X PRN IV HYPOPHOSP PER ICU PROTOCOL; Start 08/17/16 at 13:30 Potassium Chloride (KCl Oral Soln) 40 meq 1X ONCE PEG Last administered on 08/19 07:57; Start 08/19/16 at 07:45; Stop 08/19/16 at 07:46; Status DC Potassium Chloride (KCl Oral Soln) 40 meq 1X ONCE PEG Last administered on 08/19 11:36; Start 08/19/16 at 12:00; Stop 08/19/16 at 12:01; Status DC Alprazolam (Xanax) 0.5 mg 1X ONCE PO Last administered on 08/19/16 11:35; Start 08/19/16 at 11:15; Stop 08/19/16 at 11:16; Status DC Alprazolam (Xanax) 0.5 mg TID PEG Last administered on 08/23/16 20:34; Start at 15:00; Stop 08/24/16 at 08:11; Status DC Potassium Chloride 50 ml @ 50 mls/hr Q1H IV Last administered on 08/22/16 09:40 ; Start 08/22/16 at 08:30; Stop 08/22/16 at 10:29; Status DC Haloperidol Lactate (Haldol) 5 mg PRN Q6HRS PRN IVP AGITATION Last administered on 08/25/16 20:51; Start 08/22/16 at 09:15 Haloperidol Lactate (Haldol) 2 mg 1X ONCE IVP ; Start 08/22/16 at 09:15; Stop at 09:27; Status DC Magnesium Sulfate/ Dextrose 100 ml @ 50 mls/hr DAILY IV Last administered on 10:00; Start 08/23/16 at 09:00; Stop 08/26/16 at 08:59; Status DC Albumin Human 100 ml @ 100 mls/hr [id number] IV Last administered on 08/23/16 17:25 ; Start 08/23/16 at 09:00; Stop 08/23/16 at 16:59; Status DC Furosemide (Lasix) 40 mg [id number] IVP Last administered on 08/23/16 17:26; Start 08/23/16 at 09:00; Stop 08/23/16 at 16:01; Status DC Vitamin A/Vitamin D (Vitamin A & D Ointment) 1 james PRN Q1HR PRN TP SKIN PROTECTION; Start 08/23/16 at 08:45 Cefepime HCl 1 gm/ Sodium Chloride 50 ml @ 100 mls/hr Q8HRS IV Last administered on 08/26/16 05:40; Start 08/23/16 at 14:00 Ondansetron HCl (Zofran) 4 mg PRN Q6HRS PRN IV NAUSEA/VOMITING Last administered on 08/23/16 19:27; Start 08/23/16 at 19:15 Alprazolam (Xanax) 0.25 mg TID PEG ; Start 08/24/16 at 09:00; Stop 08/24/16 at 09: 28; Status DC Diphenhydramine HCl (Benadryl) 25 mg HS PO ; Start 08/24/16 at 21:00; Stop at 21:00; Status DC Zolpidem Tartrate (Ambien) 5 mg PRN QHS PRN PO INSOMNIA; Start 08/24/16 at 08:15 Alprazolam (Xanax) 0.5 mg TID PEG Last administered on 08/26/16 08:43; Start at 09:00 Diphenhydramine HCl (Benadryl) 25 mg PRN QHS PRN PO sleep; Start 08/24/16 at 21: 00 Quetiapine Fumarate (SEROquel) 50 mg HS PO Last administered on 08/25/16 20:51 ; Start 08/24/16 at 21:00 Potassium Chloride 50 ml @ 50 mls/hr Q1H IV Last administered on 08/25/16 09:45 ; Start 08/25/16 at 08:00; Stop 08/25/16 at 09:59; Status DC Iohexol (Omnipaque 300 Mg/ml) 75 ml 1X ONCE IV Last administered on 08/25/16 15:45; Start 08/25/16 at 15:45; Stop 08/25/16 at 15:46; Status DC Iohexol (Omnipaque 240 Mg/ml) 50 ml 1X ONCE PO Last administered on 08/25/16 15:45; Start 08/25/16 at 15:45; Stop 08/25/16 at 15:46; Status DC Info (Do NOT chart on this entry -- for MONITORING) 1 each PRN DAILY PRN MC SEE COMMENTS; Start 08/25/16 at 16:00; Stop 08/27/16 at 15:59 Chlorhexidine Gluconate (Peridex) 15 ml BID SWSP Last administered on 08/26/16 08:45; Start 08/26/16 at 09:00 Potassium Chloride 50 ml @ 50 mls/hr Q1H IV ; Start 08/26/16 at 11:30; Stop at 11:30; Status DC Acetaminophen (Tylenol) 650 mg PRN Q6HRS PRN PEG MILD PAIN / TEMP Last administered on 08/26/16 11:56; Start 08/26/16 at 12:00 Active Scripts Active Reported No Known Medications Prior To Admisstion (Info) Each 1 Each MC Vitals/I & O Vital Sign - Last 24 Hours 08/25/16 08/25/16 08/25/16 08/25/16 14:00 14:38 15:00 15:02 Pulse 113 108 Resp 32 34 B/P (MAP) 118/77 (91) 116/69 (85) Pulse Ox 98 98 100 98 O2 Delivery Ventilator Ventilator Ventilator O2 Flow Rate 10.0 08/25/16 08/25/16 08/25/16 08/25/16 15:59 16:00 17:00 17:03 Temp 99.2 99.2 Pulse 108 128 Resp 24 29 B/P (MAP) 118/73 (88) 129/75 (93) Pulse Ox 100 100 96 O2 Delivery Mechanical Ventilator Ventilator Ventilator Ventilator 08/25/16 08/25/16 08/25/16 08/25/16 18:00 19:00 20:00 20:00 Temp 98.4 98.4 Pulse 100 107 106 Resp 22 21 22 B/P (MAP) 112/74 (87) 136/84 (101) 116/69 (85) Pulse Ox 100 99 99 O2 Delivery Ventilator Ventilator Mechanical Ventilator Ventilator 08/25/16 08/25/16 08/25/16 08/25/16 20:16 21:00 22:00 22:45 Pulse 116 116 Resp 22 21 25 B/P (MAP) 116/74 (88) 104/67 (79) Pulse Ox 99 97 97 97 O2 Delivery Ventilator Ventilator Ventilator 08/25/16 08/25/16 08/26/16 08/26/16 23:00 23:46 00:00 00:00 Temp 100.1 100.1 Pulse 115 112 Resp 24 26 B/P (MAP) 103/69 (80) 118/78 (91) Pulse Ox 97 99 98 O2 Delivery Ventilator Ventilator Ventilator Mechanical Ventilator 08/26/16 08/26/16 08/26/16 08/26/16 00:40 01:00 02:00 03:00 Pulse 113 102 100 Resp 23 23 21 B/P (MAP) 104/72 (83) 89/60 (70) 99/64 (76) Pulse Ox 99 98 99 99 O2 Delivery Ventilator Ventilator Ventilator Ventilator 08/26/16 08/26/16 08/26/16 08/26/16 03:46 04:00 04:00 05:09 Temp 98.5 98.5 Pulse 105 102 Resp 18 18 B/P (MAP) 102/65 (77) 102/63 (76) Pulse Ox 99 99 99 O2 Delivery Ventilator Ventilator Mechanical Ventilator Ventilator 08/26/16 08/26/16 08/26/16 08/26/16 05:43 06:00 06:06 06:36 Pulse 96 Resp 23 20 22 B/P (MAP) 102/68 (79) Pulse Ox 98 98 98 97 O2 Delivery Ventilator Ventilator Ventilator Ventilator 08/26/16 08/26/16 08/26/16 08/26/16 07:00 08:00 08:00 08:00 Temp 99.3 99.3 Pulse 100 110 Resp 29 27 B/P (MAP) 105/66 (79) 110/68 (82) Pulse Ox 98 98 O2 Delivery Tracheal Collar Ventilator Mechanical Ventilator Ventilator 08/26/16 08/26/16 08/26/16 08/26/16 09:00 09:00 10:00 10:00 Pulse 98 104 Resp 32 30 B/P (MAP) 115/70 (85) 122/81 (95) Pulse Ox 98 95 98 O2 Delivery Ventilator Ventilator Ventilator Ventilator 08/26/16 08/26/16 08/26/16 08/26/16 11:00 12:00 12:00 12:13 Temp 100.5 100.5 Pulse 111 105 Resp 28 27 30 B/P (MAP) 116/73 (87) 117/83 (94) Pulse Ox 98 97 96 O2 Delivery Ventilator Mechanical Ventilator Ventilator Ventilator O2 Flow Rate 10.0 08/26/16 08/26/16 08/26/16 12:17 12:43 13:00 Pulse 107 Resp 24 26 B/P (MAP) 111/72 (85) Pulse Ox 96 96 100 O2 Delivery Ventilator Ventilator O2 Flow Rate 10.0 Intake and Output 08/25/16 08/25/16 08/26/16 15:00 23:00 07:00 Intake Total 350 ml 647 ml 1002.25 ml Output Total 380 ml 420 ml 620 ml Balance -30 ml 227 ml 382.25 ml Assessment Stable with PEG [id number]. Plan of Care: Continue current Tx, RICHAR Kelly MD August 26, 2016 13:43
[2016-08-26] MEDS ORDERED: LIDOCAINE 1% / SOD BICARB 8.4% 20 ML VIAL. IJ ONE ×2 (14:50→15:45)
--- NOTE | 2016-08-26 15:55 | PDOC ---
Exam Tax Services Manager Tax Services Manager Tawnya Radio Control Crane Operator Radio Control Crane Operator V [place] Pre-Procedure Diagnosis Pre-Procedure Diagnosis 41 YO female with endocarditis, septic emboli, and bilateral loculated pleural effusions suggesting empyemas. Post-Procedure Diagnosis Post-Procedure Diagnosis Same Procedure Performed Procedure Performed CT guided bilateral chest tube insertion Type of Anesthesia Type of Anesthesia Local only---patient on fentanyl drip Estimated Blood Loss EBL: Trace Specimens Specimans 100 cc reddish-hazy left pleural fluid to lab per Pulmonary Drain/Tubes Drains/Tubes Bilateral 14F locking pigtail chest tubes---to PleurEvac. Condition of Patient Condition of Patient No change. No apparent complication. Disposition Disposition From IR/CT return to ICU. Bilateral chest tubes to wall suction at -20cm H2O. Chest tube management per Pulmonary. Full report to follow. MARIA C FOX MD August 26, 2016 15:55
[2016-08-26] MEDS: QUEtiapine 25 MG TABLET. PO SCH (21:31)
[2016-08-27] VITALS (33 sets, daily range): BP systolic 77–124; BP diastolic 42–74
[2016-08-27] MEDS: HALOPERIDOL LACTATE 5 MG/ML VIAL. IVP PRN (04:07)
[2016-08-27] MEDS: CEFEPIME HCL 1 GM in IV NORMAL SALINE 50ML 50 ML IV SCH ×3 (06:11→22:00)
--- NOTE | 2016-08-27 06:24 | RAD ---
CT-guided insertion of bilateral chest tubes Indication: 41-year-old female ICU patient with endocarditis, septic emboli, pneumonia, respiratory failure, and with bilateral loculated pleural effusions suggesting empyemas. Image guided bilateral chest tube insertion has been requested by pulmonary. Anesthesia: Local only. The patient was on a fentanyl drip. RS Compliance Statement: One or more of the following individualized dose reduction techniques was/were utilized for this CT examination or procedure: 1. Automated exposure control. 2. Adjustment of mA and/or kV according to patient size. 3. Iterative reconstruction technique. Procedure: Informed consent was obtained from the patient's . She was transported from the intensive care unit and was placed supine on the CT scanner. Preliminary noncontrast CT images were obtained through chest. Those images confirmed the bilateral loculated pleural effusions, bilateral atelectasis/infiltrate, and bilateral cavitary nodules consistent with septic emboli. Left side: A skin site suitable for CT-guided left chest tube insertion was selected and marked along lateral aspect of lower left hemithorax. That area was prepped and draped in the usual sterile fashion. Using aseptic technique, local anesthesia, and CT guidance, a micropuncture needle was successfully introduced into low left posterolateral pleural space. The micropuncture needle was exchanged over a microguidewire for a micropuncture sheath, which was removed over a 0.035 inch guidewire. The percutaneous tract was dilated and a 14 Slov[place] locking pigtail chest tube was easily advanced into left posterior costophrenic angle. 100 cc of reddish-hazy left pleural fluid was then aspirated and was submitted to the clinical laboratory per referring gas examiner request. Satisfactory position of the chest tube was confirmed with completion CT images. The chest tube was then connected to Pleur-evac, and was secured at the skin exit site utilizing suture and sterile dressing. Patient tolerated the procedure well without apparent complication. Right side: A skin site suitable for CT-guided right chest tube insertion was selected and marked along lateral aspect of low right hemithorax. That area was prepped and draped in the usual sterile fashion. Using aseptic technique, local anesthesia, and CT guidance, a micropuncture needle was successfully introduced into low right posterolateral pleural space. The micropuncture needle was exchanged over a microguidewire for a micropuncture sheath, which was then removed over a 0.035 inch guidewire. The percutaneous tract was then dilated and a 14 [place] locking pigtail chest tube was easily advanced toward right posterior costophrenic angle. Completion CT images documented satisfactory position of the chest tube, which was then connected to Pleur-evac, and was secured at the skin exit site utilizing suture and sterile dressing. Patient tolerated the procedure well without apparent complication. Impression: Successful, uneventful CT-guided insertion of bilateral 14 Slovak locking pigtail chest tubes, as described.
--- NOTE | 2016-08-27 07:20 | PDOC ---
Infectious Disease Note Subjective Subjective Doing ok but s/p Haldol ROS ROS Difficult to completely ascertain Vital Sign Vital Signs Vital Signs Date Time Temp Pulse Resp B/P (MAP) Pulse Ox O2 Delivery O2 Flow Rate FiO2 08/27/16 07:05 108 25 97/63 (74) 100 Ventilator 08/27/16 04:00 99.1 99.1 08/26/16 16:45 10.0 Physical Exam PHYSICAL EXAM GENERAL: Resting, NAD, appears comfortable. Alert HENT: Oral cavity pink, dry, poor dentition, + decay NECK: Trach, + secretions LUNGS: CTA. Bilat chest tubes HEART: S1S2 ABD: Mildly distended, soft, BS present. + g-tube & rectal tube : [place] EXT: Generalized edema. No cyanosis SKIN: No rash LUE-PICC. clean Objective Assessment ? Loculated pleural effusions ? cause of Fever and leukocytosis - S/p Bilat Chest tubes Ecoli in sputum (08/22) Fever Leukocytosis Acute anemia s/p PRBCs, 08/16, 08/20 S/p Trach/PEG 08/13 MSSA sepsis 08/01 ([facility]) -Repeat BC positive, 08/05 & 08/07. Neg 08/09 Right-sided bacterial endocarditis. -TTE. 3.0 x 2.0cm mobile mass TV Multiple pulmonary nodules/septic emboli Acute Resp failure - Intubated ? developing ARDS. S/p Bronch 08/08. MSSA IV drug use. Hep C Ileus Renal insufficiency. Severe thrombocytopenia. improved Hepatosplenomegaly on CT Plan Plan of Care Nafcillin changed to cefepime to cover for Ecoli in sputum Patient will need a total of six weeks of IV abx to treat endocarditis/ bacteremia Monitor WBC, temp in am Supportive care KAYLYNN SHAY MD August 27, 2016 07:20
--- NOTE | 2016-08-27 07:25 | RAD ---
Indication: Empyema. Time of exam 0629 hours. Correlation is made with prior study 1 day earlier. The tracheostomy tube has the tip in good position above the sundar. Left upper extremity PICC line has the tip overlying the right atrium. Moderate left pleural effusion has reduced in size. There continues to be consolidation in the left base with air bronchograms. There has been improved aeration to the right lung. Only minimal residual infiltrate remains on the right. There has been placement of pigtail catheters which overlies the lower chest bilaterally. Impression: Bilateral percutaneous drain placements with reduction in pleural effusions bilaterally as as well as improved aeration to both lungs.
[2016-08-27] MEDS: IPRATRPIUM/ALBUTEROL 0.5/2.5MG 3 ML NEBU. NEB SCH ×4 (08:32→19:27)
[2016-08-27] MEDS: BUDESONIDE 0.5 MG/2 ML NEBU. NEB SCH ×2 (08:33→19:26)
--- NOTE | 2016-08-27 08:46 | PDOC ---
PROGRESS NOTES Chief Complaint Chief Complaint Sepsis Acute hypoxic respir failure ASSESSMENT AND PLAN: 1. Sepsis: resolved 2. 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 MSSA. on cefepime (to cover E.coli as well) 3. PNA: septic emboli. sputum now with heavy growth E.coli. bilat effusions suspicious for empyemas. s/p bilat CT placement 08/26 4. Acute respir failure: trached, on vent. weaning as per Pulm service 5. Anemia: severe, recurrent: prob multifactorial, incl severe inflammation, HCV toxicity. anemia profile to r/o deficiencies pending 6. Thrombocytopenia: 2/2 infection, now resolved. monitor 7. [place]: resolved 8. Hep C: new dx during current admit. F/U on O/P basis for rx 9. Polysubstance abuse: still on fentanyl drip. wean when Cts d/c.ed 10. Agitation: on seroquel, Xanax. Haldol PRN 11. Malnutrition: severe, POA, weight loss prior to admit, albumin critically low. PEG feeds History of Present Illness History of Present Illness breathing evenly, c/o pain at CT sites, still on fentanyl gtt Vitals Vitals Vital Signs Date Time Temp Pulse Resp B/P (MAP) Pulse Ox O2 Delivery O2 Flow Rate FiO2 08/27/16 07:05 108 25 97/63 (74) 100 Ventilator 08/27/16 04:00 99.1 99.1 08/26/16 16:45 10.0 Physical Exam General: Alert, Cooperative, No acute distress Heart: Normal S1, Normal S2, No murmurs Lungs: Other (coarse bs) Abdomen: Normal bowel sounds, Other (Hepatosplenomegaly present) Extremities: No cyanosis, No edema Skin: No breakdown, No significant lesion Labs LABS Laboratory Tests Test 08/26/16 15:20 Body Fluid pH 7.0 Nutrition Consultation Dietary Evaluation: Recommendations by RD: PPN/TPN Comments: Pt is s/p PEG placement 08/14 Pt reports poor tolerance to tube feedings-excess fullness, nausea, abdominal cramping and diarrhea. Rec. decrease the TF rate to 40 ml/hr, flushes 150 cc q8h Continue 1 packet prostat BID at 8AM and 6PM for optimal protein intake Expected Outcomes/Goals: tolerate the TF's via PEG at goal rate meet 75% estimated nutrition needs Malnutrition Findings: Reduced Musical Instruments Assembler Strength: N/A Reduced Musical Instruments Assembler Strength (Non-Sev: N/A Malnutrition related to morbid: No Weight Status: Overweight Fluid Accumulation (N/A): N/A JUANITO PRETTY MD August 27, 2016 08:45
[2016-08-27] MEDS: NYSTATIN TOPICAL POWDER 15GM BOTTLE. TP SCH ×2 (09:23→21:13)
[2016-08-27] MEDS: ALPRAZolam 0.5 MG TABLET PEG SCH ×3 (09:23→21:14)
[2016-08-27] MEDS: CHLORHEXIDINE 0.12% 15 ML MOUTHWASH. SWSP SCH ×2 (09:23→21:14)
[2016-08-27 09:48] LABS: BASO # 0.1 x10^3/uL (0.0-0.2); BASO % 0 % (0-3); EOS % 2 % (0-3); LYMPH # 1.2 x10^3/uL (1.0-4.8); LYMPH % 10 % (24-48); MEAN CORPUSCULAR HEMOGLOBIN 30 pg (25-35); MEAN CORPUSCULAR HGB CONC 34 g/dL (31-37); MEAN CORPUSCULAR VOLUME 88 fL (79-100); MONO % 8 % (0-9); NEUT % 81 % (31-73); PLATELET COUNT 262 x10^3/uL (140-400); RED BLOOD COUNT 2.26 x10^6/uL (3.50-5.40); RED CELL DISTRIBUTION WIDTH 16.6 % (11.5-14.5); WHITE BLOOD COUNT 12.4 x10^3/uL (4.0-11.0)
[2016-08-27 09:51] LABS: HEMOGLOBIN 6.7 g/dL (12.0-15.5)
[2016-08-27 10:20] LABS: ALBUMIN 1.1 g/dL (3.4-5.0); ALBUMIN/GLOBULIN RATIO 0.2 (1.0-1.7); CREATININE 0.6 mg/dL (0.6-1.0); GFR 109.6; POTASSIUM 3.2 mmol/L (3.5-5.1); TOTAL BILIRUBIN 0.6 mg/dL (0.2-1.0); TOTAL PROTEIN 5.6 g/dL (6.4-8.2)
--- NOTE | 2016-08-27 10:26 | PDOC ---
PULMONARY PROGRESS NOTES Subjective AC mode s/p bilateral chest tubes Vitals Vital Signs Date Time Temp Pulse Resp B/P (MAP) Pulse Ox O2 Delivery O2 Flow Rate FiO2 08/27/16 10:00 99 21 100/58 (72) 100 Ventilator 08/27/16 08:00 98.7 98.7 Comments ros as mentioned as above other sys otherwise neg ROS: No Chest Pain, No Abdominal Pain General: Alert, No acute distress HEENT: Other (nc at perrl. poor dentition, nose clear) Lungs: Other (decrease bs) Cardiovascular: S1, S2, Other Abdomen: Soft, Non-tender, Other (no mass) Neuro Exam: Alert Extremities: Other (edema) Skin: Warm Labs Laboratory Tests Test 08/26/16 06:25 08/26/16 15:20 08/27/16 09:40 White Blood Count 17.0 x10^3/uL (4.0-11.0) 12.4 x10^3/uL (4.0-11.0) Red Blood Count 2.62 x10^6/uL (3.50-5.40) 2.26 x10^6/uL (3.50-5.40) Hemoglobin 7.7 g/dL (12.0-15.5) 6.7 g/dL (12.0-15.5) Hematocrit 23.4 % (36.0-47.0) 20.0 % (36.0-47.0) Mean Corpuscular Volume 89 fL (79-100) 88 fL (79-100) Mean Corpuscular Hemoglobin 29 pg (25-35) 30 pg (25-35) Mean Corpuscular Hemoglobin Concent 33 g/dL (31-37) 34 g/dL (31-37) Red Cell Distribution Width 16.6 % (11.5-14.5) 16.6 % (11.5-14.5) Platelet Count 327 x10^3/uL (140-400) 262 x10^3/uL (140-400) Neutrophils (%) (Auto) 82 % (31-73) 81 % (31-73) Lymphocytes (%) (Auto) 8 % (24-48) 10 % (24-48) Monocytes (%) (Auto) 8 % (0-9) 8 % (0-9) Eosinophils (%) (Auto) 2 % (0-3) 2 % (0-3) Basophils (%) (Auto) 0 % (0-3) 0 % (0-3) Neutrophils # (Auto) 13.9 x10^3uL (1.8-7.7) 10.0 x10^3uL (1.8-7.7) Lymphocytes # (Auto) 1.3 x10^3/uL (1.0-4.8) 1.2 x10^3/uL (1.0-4.8) Monocytes # (Auto) 1.3 x10^3/uL (0.0-1.1) 1.0 x10^3/uL (0.0-1.1) Eosinophils # (Auto) 0.3 x10^3/uL (0.0-0.7) 0.2 x10^3/uL (0.0-0.7) Basophils # (Auto) 0.1 x10^3/uL (0.0-0.2) 0.1 x10^3/uL (0.0-0.2) Sodium Level 135 mmol/L (136-145) Potassium Level 3.6 mmol/L (3.5-5.1) Chloride Level 102 mmol/L (98-107) Carbon Dioxide Level 27 mmol/L (21-32) Anion Gap 6 (6-14) Blood Urea Nitrogen 16 mg/dL (7-20) Creatinine 0.7 mg/dL (0.6-1.0) Estimated GFR (Cockcroft-Gault) 91.8 BUN/Creatinine Ratio 23 (6-20) Glucose Level 109 mg/dL (70-99) Calcium Level 8.1 mg/dL (8.5-10.1) Total Bilirubin 0.7 mg/dL (0.2-1.0) Aspartate Amino Transf (AST/SGOT) 25 U/L (15-37) Alanine Aminotransferase (ALT/SGPT) 18 U/L (14-59) Alkaline Phosphatase 144 U/L (46-116) Total Protein 6.9 g/dL (6.4-8.2) Albumin 1.3 g/dL (3.4-5.0) Albumin/Globulin Ratio 0.2 (1.0-1.7) Body Fluid pH 7.0 Laboratory Tests Test 08/26/16 15:20 08/27/16 09:40 Body Fluid pH 7.0 White Blood Count 12.4 x10^3/uL (4.0-11.0) Red Blood Count 2.26 x10^6/uL (3.50-5.40) Hemoglobin 6.7 g/dL (12.0-15.5) Hematocrit 20.0 % (36.0-47.0) Mean Corpuscular Volume 88 fL (79-100) Mean Corpuscular Hemoglobin 30 pg (25-35) Mean Corpuscular Hemoglobin Concent 34 g/dL (31-37) Red Cell Distribution Width 16.6 % (11.5-14.5) Platelet Count 262 x10^3/uL (140-400) Neutrophils (%) (Auto) 81 % (31-73) Lymphocytes (%) (Auto) 10 % (24-48) Monocytes (%) (Auto) 8 % (0-9) Eosinophils (%) (Auto) 2 % (0-3) Basophils (%) (Auto) 0 % (0-3) Neutrophils # (Auto) 10.0 x10^3uL (1.8-7.7) Lymphocytes # (Auto) 1.2 x10^3/uL (1.0-4.8) Monocytes # (Auto) 1.0 x10^3/uL (0.0-1.1) Eosinophils # (Auto) 0.2 x10^3/uL (0.0-0.7) Basophils # (Auto) 0.1 x10^3/uL (0.0-0.2) Medications Active Scripts Medications Dose Route/Sig Days Date Category No Known Medications Prior To Admisstion (Info) Each 1 Each 08/06/16 Reported Comments cxr reviewed, 08/27 improving effusions Impression . 1. Acute hypoxemic respiratory failure, multifactorial in etiology / increase secretions , repeat sputum with E-Coli 2. bilateral loculated effusions, suspected empyema, s/p bilateral chest tubes 3. Bilateral pulmonary nodules with cavitation, due to septic emboli. 4. Endocarditis. right sided, improving vegetations 5. ? chronic obstructive pulmonary disease. 6. Leukocytosis./fever, suspect due to empyema, bilateral 7. Anemia, ongoing 8. Thrombocytopenia. off lovenox 10. Intravenous drug abuse. 11. Tobacco habituation. 12. MSSA septicemia/pneumonia/ CHF 13. ct chest reviewed/ bilateral loculated effusion, suspect empyema, Plan . Re-start CPAP trials monitor chest tube output and analysis will need TPA via left chest tube in am Trach secretions for c/s, E-coli, on antibiotic per ID CXR improving antibiotics per ID, cont abx on cefepime now bronchodilators keep I<O dc lovenox, continues to have low Hb and need for transfusion. pepcid for prophylaxis discussed w RN/RT CRALEY WORKMAN MD August 27, 2016 10:25
--- NOTE | 2016-08-27 10:38 | PDOC ---
G I PROGRESS NOTE Subjective Awake, alert. Objective No reported problems with PEG. Physical Exam Abdomen soft, not distended nor apparently tender. Review of Relevant I have reviewed the following items shanta (where applicable) has been applied. Labs Laboratory Tests Test 08/26/16 06:25 08/26/16 15:20 08/27/16 09:40 White Blood Count 17.0 x10^3/uL (4.0-11.0) 12.4 x10^3/uL (4.0-11.0) Red Blood Count 2.62 x10^6/uL (3.50-5.40) 2.26 x10^6/uL (3.50-5.40) Hemoglobin 7.7 g/dL (12.0-15.5) 6.7 g/dL (12.0-15.5) Hematocrit 23.4 % (36.0-47.0) 20.0 % (36.0-47.0) Mean Corpuscular Volume 89 fL (79-100) 88 fL (79-100) Mean Corpuscular Hemoglobin 29 pg (25-35) 30 pg (25-35) Mean Corpuscular Hemoglobin Concent 33 g/dL (31-37) 34 g/dL (31-37) Red Cell Distribution Width 16.6 % (11.5-14.5) 16.6 % (11.5-14.5) Platelet Count 327 x10^3/uL (140-400) 262 x10^3/uL (140-400) Neutrophils (%) (Auto) 82 % (31-73) 81 % (31-73) Lymphocytes (%) (Auto) 8 % (24-48) 10 % (24-48) Monocytes (%) (Auto) 8 % (0-9) 8 % (0-9) Eosinophils (%) (Auto) 2 % (0-3) 2 % (0-3) Basophils (%) (Auto) 0 % (0-3) 0 % (0-3) Neutrophils # (Auto) 13.9 x10^3uL (1.8-7.7) 10.0 x10^3uL (1.8-7.7) Lymphocytes # (Auto) 1.3 x10^3/uL (1.0-4.8) 1.2 x10^3/uL (1.0-4.8) Monocytes # (Auto) 1.3 x10^3/uL (0.0-1.1) 1.0 x10^3/uL (0.0-1.1) Eosinophils # (Auto) 0.3 x10^3/uL (0.0-0.7) 0.2 x10^3/uL (0.0-0.7) Basophils # (Auto) 0.1 x10^3/uL (0.0-0.2) 0.1 x10^3/uL (0.0-0.2) Sodium Level 135 mmol/L (136-145) 130 mmol/L (136-145) Potassium Level 3.6 mmol/L (3.5-5.1) 3.2 mmol/L (3.5-5.1) Chloride Level 102 mmol/L (98-107) 99 mmol/L (98-107) Carbon Dioxide Level 27 mmol/L (21-32) 24 mmol/L (21-32) Anion Gap 6 (6-14) 7 (6-14) Blood Urea Nitrogen 16 mg/dL (7-20) 16 mg/dL (7-20) Creatinine 0.7 mg/dL (0.6-1.0) 0.6 mg/dL (0.6-1.0) Estimated GFR (Cockcroft-Gault) 91.8 109.6 BUN/Creatinine Ratio 23 (6-20) 27 (6-20) Glucose Level 109 mg/dL (70-99) 108 mg/dL (70-99) Calcium Level 8.1 mg/dL (8.5-10.1) 7.0 mg/dL (8.5-10.1) Total Bilirubin 0.7 mg/dL (0.2-1.0) 0.6 mg/dL (0.2-1.0) Aspartate Amino Transf (AST/SGOT) 25 U/L (15-37) 16 U/L (15-37) Alanine Aminotransferase (ALT/SGPT) 18 U/L (14-59) 13 U/L (14-59) Alkaline Phosphatase 144 U/L (46-116) 145 U/L (46-116) Total Protein 6.9 g/dL (6.4-8.2) 5.6 g/dL (6.4-8.2) Albumin 1.3 g/dL (3.4-5.0) 1.1 g/dL (3.4-5.0) Albumin/Globulin Ratio 0.2 (1.0-1.7) 0.2 (1.0-1.7) Body Fluid pH 7.0 Laboratory Tests Test 08/26/16 15:20 08/27/16 09:40 Body Fluid pH 7.0 White Blood Count 12.4 x10^3/uL (4.0-11.0) Red Blood Count 2.26 x10^6/uL (3.50-5.40) Hemoglobin 6.7 g/dL (12.0-15.5) Hematocrit 20.0 % (36.0-47.0) Mean Corpuscular Volume 88 fL (79-100) Mean Corpuscular Hemoglobin 30 pg (25-35) Mean Corpuscular Hemoglobin Concent 34 g/dL (31-37) Red Cell Distribution Width 16.6 % (11.5-14.5) Platelet Count 262 x10^3/uL (140-400) Neutrophils (%) (Auto) 81 % (31-73) Lymphocytes (%) (Auto) 10 % (24-48) Monocytes (%) (Auto) 8 % (0-9) Eosinophils (%) (Auto) 2 % (0-3) Basophils (%) (Auto) 0 % (0-3) Neutrophils # (Auto) 10.0 x10^3uL (1.8-7.7) Lymphocytes # (Auto) 1.2 x10^3/uL (1.0-4.8) Monocytes # (Auto) 1.0 x10^3/uL (0.0-1.1) Eosinophils # (Auto) 0.2 x10^3/uL (0.0-0.7) Basophils # (Auto) 0.1 x10^3/uL (0.0-0.2) Sodium Level 130 mmol/L (136-145) Potassium Level 3.2 mmol/L (3.5-5.1) Chloride Level 99 mmol/L (98-107) Carbon Dioxide Level 24 mmol/L (21-32) Anion Gap 7 (6-14) Blood Urea Nitrogen 16 mg/dL (7-20) Creatinine 0.6 mg/dL (0.6-1.0) Estimated GFR (Cockcroft-Gault) 109.6 BUN/Creatinine Ratio 27 (6-20) Glucose Level 108 mg/dL (70-99) Calcium Level 7.0 mg/dL (8.5-10.1) Total Bilirubin 0.6 mg/dL (0.2-1.0) Aspartate Amino Transf (AST/SGOT) 16 U/L (15-37) Alanine Aminotransferase (ALT/SGPT) 13 U/L (14-59) Alkaline Phosphatase 145 U/L (46-116) Total Protein 5.6 g/dL (6.4-8.2) Albumin 1.1 g/dL (3.4-5.0) Albumin/Globulin Ratio 0.2 (1.0-1.7) Microbiology 08/12/16 Blood Fungal Culture - Preliminary, Resulted 08/12/16 Fungal Culture Result 1 - Preliminary, Resulted 08/22/16 Gram Stain - Final, Complete Medications Current Medications Amino Acids/ Glycerin/ Electrolytes 1,000 ml @ 100 mls/hr Q10H IV Last administered on 08/05/16 02:40; Start 08/02/16 at 03:00; Stop 08/05/16 at 08:50 ; Status DC Morphine Sulfate 2 mg PRN Q2HR PRN IV SEVERE PAIN Last administered on 11:59; Start 08/02/16 at 02:30; Stop 08/02/16 at 13:28; Status DC Daptomycin 220 mg/ Sodium Chloride 50 ml @ 100 mls/hr Q24H IV ; Start 08/02/16 at 09:15; Stop 08/02/16 at 15:58; Status DC Cefepime HCl 1 gm/ Sodium Chloride 50 ml @ 100 mls/hr Q12HR IV Last administered on 08/04/16 08:10; Start 08/02/16 at 10:00; Stop 08/04/16 at 10:33 ; Status DC Daptomycin 220 mg/ Sodium Chloride 50 ml @ 100 mls/hr ONCE ONCE IV ; Start at 10:00; Stop 08/02/16 at 10:29; Status Cancel Potassium Chloride (Klor-Con) 40 meq 1X ONCE PO Last administered on 10:17; Start 08/02/16 at 09:45; Stop 08/02/16 at 09:46; Status DC Daptomycin 220 mg/ Sodium Chloride 50 ml @ 100 mls/hr Q24H IV Last administered on 08/03/16 09:43; Start 08/02/16 at 10:15; Stop 08/03/16 at 10:29 ; Status DC Potassium Chloride (Klor-Con) 40 meq 1X ONCE PO Last administered on 12:57; Start 08/02/16 at 12:30; Stop 08/02/16 at 12:36; Status DC Morphine Sulfate 5 mg PRN Q2HRS PRN IV MODERATE TO SEVERE PAIN Last administered on 08/26/16 16:15; Start 08/02/16 at 13:30; Stop 08/26/16 at 17:31; Status DC Morphine Sulfate 8 mg PRN Q2HRS PRN IV MODERATE TO SEVERE PAIN Last administered on 08/04/16 14:58; Start 08/02/16 at 13:30; Stop 08/26/16 at 17:31 ; Status DC Acetaminophen (Tylenol) 650 mg PRN Q6HRS PRN PO TEMP GREATER THAN 100.4 Last administered on 08/26/16 00:24; Start 08/02/16 at 14:45; Stop 08/26/16 at 17:31; Status DC Lactated Ringer's 1,000 ml @ 50 mls/hr Q20H IV ; Start 08/05/16 at 07:00; Stop 08/05/16 at 18:13; Status DC Daptomycin 220 mg/ Sodium Chloride 50 ml @ 100 mls/hr Q24H IV ; Start 08/03/16 at 11:00; Status Cancel Potassium Chloride (Klor-Con) 40 meq 1X ONCE PO Last administered on 17:41; Start 08/02/16 at 17:15; Stop 08/02/16 at 17:18; Status DC Potassium Chloride (Klor-Con) 40 meq BIDWMEALS PO ; Start 08/03/16 at 08:00; Stop 08/03/16 at 11:08; Status DC Morphine Sulfate 5 mg 1X ONCE IV Last administered on 08/02/16 21:45; Start 08/02/16 at 21:30; Stop 08/02/16 at 21:33; Status DC Lorazepam (Ativan) 1 mg 1X ONCE IV Last administered on 08/02/16 21:30; Start 08/02/16 at 21:30; Stop 08/02/16 at 21:33; Status DC Acetaminophen (Acetaminophen Supp) 650 mg PRN Q6HRS PRN LA MILD PAIN / TEMP Last administered on 08/13/16 03:13; Start 08/03/16 at 01:15; Stop 08/26/16 at 17:31; Status DC Albuterol/ Ipratropium (Duoneb) 3 ml RTQID NEB Last administered on 08/27/16 08 :32; Start 08/03/16 at 08:00 Budesonide (Pulmicort) 0.5 mg RTBID NEB Last administered on 08/27/16 08:33; Start 08/03/16 at 08:00 Pantoprazole Sodium (Protonix Vial) 40 mg 1X ONCE IVP Last administered on 10:06; Start 08/03/16 at 08:00; Stop 08/03/16 at 08:01; Status DC Daptomycin 320 mg/ Sodium Chloride 50 ml @ 100 mls/hr Q24H IV Last administered on 08/04/16 10:03; Start 08/04/16 at 10:00; Stop 08/04/16 at 10:33 ; Status DC Lorazepam (Ativan) 0.5 mg PRN Q6HRS PRN IV ANXIETY / AGITATION Last administered on 08/04/16 09:12; Start 08/03/16 at 11:15; Stop 08/07/16 at 11:02 ; Status DC Lorazepam (Ativan) 0.5 mg 1X ONCE IV Last administered on 08/04/16 10:00; Start 08/04/16 at 10:00; Stop 08/04/16 at 10:01; Status DC Morphine Sulfate 5 mg 1X ONCE IV Last administered on 08/04/16 10:00; Start 08/04/16 at 10:00; Stop 08/04/16 at 10:01; Status DC Lorazepam (Ativan) 0.5 mg PRN Q4HRS PRN IV ANXIETY / AGITATION Last administered on 08/25/16 02:29; Start 08/04/16 at 10:00; Stop 08/26/16 at 17:31; Status DC Nafcillin Sodium 2 gm/Sodium Chloride 100 ml @ 200 mls/hr Q4HRS IV Last administered on 08/09/16 10:10; Start 08/04/16 at 12:00; Stop 08/09/16 at 11:49 ; Status DC Propofol 100 ml @ As Directed STK-MED ONCE IV ; Start 08/04/16 at 16:10; Stop 08/04/16 at 16:11; Status DC Succinylcholine Chloride (Anectine) 200 mg STK-MED ONCE .ROUTE ; Start 08/04/16 at 16:14; Stop 08/04/16 at 16:15; Status DC Succinylcholine Chloride (Anectine) 200 mg 1X ONCE IV ; Start 08/04/16 at 16:45 ; Stop 08/04/16 at 16:46; Status DC Propofol 100 ml @ 0 mls/hr CONT PRN IV SEE I/O RECORD Last administered on 08/17 10:18; Start 08/04/16 at 16:45; Stop 08/26/16 at 17:31; Status DC Lorazepam (Ativan) 0.5 mg 1X ONCE IV Last administered on 08/04/16 16:45; Start 08/04/16 at 16:45; Stop 08/04/16 at 16:46; Status DC Morphine Sulfate 5 mg 1X ONCE IV Last administered on 08/04/16 16:44; Start 08/04/16 at 16:45; Stop 08/04/16 at 16:46; Status DC Fentanyl Citrate 30 ml @ 0 mls/hr CONT PRN IV PROTOCOL Last administered on 08/26 23:22; Start 08/04/16 at 16:45 Chlorhexidine Gluconate (Peridex) 15 ml BID MM Last administered on 08/17/16 10:18; Start 08/04/16 at 21:00; Stop 08/17/16 at 19:36; Status DC Famotidine (Pepcid) 20 mg BID IVP Last administered on 08/26/16 08:43; Start at 17:00; Stop 08/26/16 at 17:31; Status DC Sodium Chloride 1,000 ml @ 100 mls/hr Q10H IV Last administered on 08/07/16 04:35; Start 08/05/16 at 09:00; Stop 08/07/16 at 08:59; Status DC Succinylcholine Chloride (Anectine) 200 mg STK-MED ONCE .ROUTE ; Start 08/04/16 at 16:00; Stop 08/05/16 at 12:32; Status DC Lorazepam (Ativan) 2 mg 1X ONCE IV Last administered on 08/05/16 20:43; Start 08/05/16 at 21:00; Stop 08/05/16 at 21:01; Status DC Furosemide (Lasix) 40 mg 1X PRN PRN IV blood transfusion Last administered on 14:17; Start 08/06/16 at 08:00; Stop 08/07/16 at 07:59; Status DC Sodium Bicarbonate 50 meq 1X ONCE IV Last administered on 08/06/16 14:06; Start 08/06/16 at 12:00; Stop 08/06/16 at 12:01; Status DC Calcium Chloride 1,000 mg STK-MED ONCE IV ; Start 08/04/16 at 12:00; Stop at 15:13; Status DC Epinephrine HCl (Epinephrine Syringe) 2 mg STK-MED ONCE .ROUTE ; Start 08/04/16 at 12:00; Stop 08/06/16 at 15:13; Status DC Sodium Bicarbonate 100 meq STK-MED ONCE .ROUTE ; Start 08/04/16 at 12:00; Stop 08/06/16 at 15:13; Status DC Amino Acids/ Glycerin/ Electrolytes 1,000 ml @ 100 mls/hr Q10H IV Last administered on 08/08/16 12:33; Start 08/07/16 at 10:00; Stop 08/09/16 at 09:42 ; Status DC Enoxaparin Sodium (Lovenox 40mg Syringe) 40 mg Q24H SQ Last administered on 13:10; Start 08/07/16 at 13:00; Stop 08/10/16 at 10:43; Status DC Vecuronium Francisco (Norcuron Bolus) 10 mg STK-MED ONCE IV ; Start 08/07/16 at 13 :56; Stop 08/07/16 at 13:57; Status DC Vecuronium Francisco (Norcuron Bolus) 6 mg 1X ONCE IV Last administered on 14:06; Start 08/07/16 at 14:00; Stop 08/07/16 at 14:05; Status DC Sodium Bicarbonate 50 meq 1X ONCE IV Last administered on 08/08/16 11:46; Start 08/08/16 at 11:45; Stop 08/08/16 at 11:46; Status DC Nystatin (Nystop) 1 james BID TP Last administered on 08/27/16 09:23; Start 08/08 at 21:00 Linezolid 300 ml @ 300 mls/hr Q12HR IV Last administered on 08/14/16 20:51; Start 08/09/16 at 09:00; Stop 08/15/16 at 07:21; Status DC Sodium Chloride 1,000 ml @ 20 mls/hr Q24H IV Last administered on 08/26/16 06: 41; Start 08/09/16 at 09:45 Sodium Bicarbonate 150 meq/Dextrose 1,150 ml @ 100 mls/hr 1X ONCE IV Last administered on 08/09/16 12:25; Start 08/09/16 at 11:30; Stop 08/09/16 at 22:59 ; Status DC Piperacillin Sod/ Tazobactam Sod (Zosyn Per Pharmacy) 1 each PRN DAILY PRN MC SEE COMMENTS; Start 08/09/16 at 12:00; Stop 08/14/16 at 07:40; Status DC Piperacillin Sod/ Tazobactam Sod 4.5 gm/Sodium Chloride 100 ml @ 200 mls/hr Q6HRS IV Last administered on 08/14/16 05:58; Start 08/09/16 at 12:30; Stop at 07:33; Status DC Vecuronium Francisco (Norcuron Bolus) 5 mg PRN Q4HRS PRN IV INCREASED RESPIRATORY ,NOT RELI Last administered on 08/11/16 02:56; Start 08/09/16 at 13:30; Stop at 17:31; Status DC Potassium Chloride 50 ml @ 100 mls/hr Q1H IV ; Start 08/10/16 at 09:30; Stop at 10:59; Status Cancel Potassium Chloride 100 ml @ 100 mls/hr Q1H IV Last administered on 08/10/16 16:28; Start 08/10/16 at 10:30; Stop 08/10/16 at 14:29; Status DC Potassium Chloride (KCl Oral Soln) 60 meq 1X ONCE PEG Last administered on 11:16; Start 08/10/16 at 11:00; Stop 08/10/16 at 11:01; Status DC Sodium Bicarbonate 150 meq/Dextrose 1,150 ml @ 100 mls/hr [id number] IV Last administered on 08/10/16 11:14; Start 08/10/16 at 11:00; Stop 08/10/16 at 22:29 ; Status DC Enoxaparin Sodium (Lovenox 40mg Syringe) 40 mg Q24H SQ ; Start 08/10/16 at 13:00 ; Stop 08/10/16 at 13:00; Status DC Micafungin Sodium 100 mg/Dextrose 100 ml @ 100 mls/hr Q24H IV Last administered on 08/13/16 16:26; Start 08/11/16 at 16:00; Stop 08/14/16 at 07:33 ; Status DC Furosemide (Lasix) 40 mg 1X ONCE IVP Last administered on 08/12/16 08:38; Start 08/12/16 at 08:00; Stop 08/12/16 at 08:06; Status DC Morphine Sulfate 1 mg PRN Q10MIN PRN IV SEVERE PAIN; Start 08/13/16 at 07:00; Stop 08/14/16 at 06:59; Status DC Lactated Ringer's 1,000 ml @ 0 mls/hr Q0M IV ; Start 08/13/16 at 07:00; Stop at 18:59; Status DC Lidocaine HCl 2 ml PRN 1X PRN ID PRIOR TO IV START; Start 08/13/16 at 07:00; Stop 08/14/16 at 06:59; Status DC Hydromorphone HCl (Dilaudid) 0.5 mg PRN Q10MIN PRN IV SEV PAIN, Second choice; Start 08/13/16 at 07:00; Stop 08/14/16 at 06:59; Status DC Prochlorperazine Edisylate (Compazine) 5 mg PACU PRN PRN IV NAUSEA, MRX1; Start 08/13/16 at 07:00; Stop 08/14/16 at 06:59; Status DC Morphine Sulfate 1 mg PRN Q10MIN PRN IV SEVERE PAIN; Start 08/13/16 at 07:00; Stop 08/14/16 at 06:59; Status DC Lactated Ringer's 1,000 ml @ 0 mls/hr Q0M IV ; Start 08/13/16 at 07:00; Stop at 18:59; Status DC Lidocaine HCl 2 ml PRN 1X PRN ID PRIOR TO IV START; Start 08/13/16 at 07:00; Stop 08/14/16 at 06:59; Status DC Hydromorphone HCl (Dilaudid) 0.5 mg PRN Q10MIN PRN IV SEV PAIN, Second choice; Start 08/13/16 at 07:00; Stop 08/14/16 at 06:59; Status DC Prochlorperazine Edisylate (Compazine) 5 mg PACU PRN PRN IV NAUSEA, MRX1; Start 08/13/16 at 07:00; Stop 08/14/16 at 06:59; Status DC Potassium Chloride 50 ml @ 50 mls/hr Q1H IV Last administered on 08/13/16 07: 57; Start 08/13/16 at 07:00; Stop 08/13/16 at 08:59; Status DC Rocuronium Francisco (Zemuron) 50 mg STK-MED ONCE .ROUTE ; Start 08/13/16 at 12:50 ; Stop 08/13/16 at 12:51; Status DC Propofol 20 ml @ As Directed STK-MED ONCE IV ; Start 08/13/16 at 12:53; Stop at 12:54; Status DC Sevoflurane (Ultane) 30 ml STK-MED ONCE IH ; Start 08/13/16 at 14:04; Stop 08/13 at 14:05; Status DC Albumin Human 250 ml @ 100 mls/hr 1X ONCE IV Last administered on 08/13/16 23:38; Start 08/13/16 at 18:00; Stop 08/13/16 at 20:29; Status DC Albumin Human 500 ml @ 100 mls/hr 1X ONCE IV Last administered on 08/13/16 18:15; Start 08/13/16 at 18:00; Stop 08/13/16 at 22:59; Status DC Potassium Chloride 50 ml @ 50 mls/hr Q1H IV Last administered on 08/14/16 10: 46; Start 08/14/16 at 08:00; Stop 08/14/16 at 09:59; Status DC Nafcillin Sodium 2 gm/Sodium Chloride 100 ml @ 200 mls/hr Q4HRS IV Last administered on 08/23/16 08:51; Start 08/14/16 at 08:00; Stop 08/23/16 at 10:44; Status DC Enoxaparin Sodium (Lovenox 40mg Syringe) 40 mg Q24H SQ Last administered on 08/25 12:44; Start 08/14/16 at 12:00; Stop 08/26/16 at 11:53; Status DC Potassium Chloride (KCl Oral Soln) 40 meq 1X ONCE PEG Last administered on 07:54; Start 08/16/16 at 07:00; Stop 08/16/16 at 07:01; Status DC Potassium Chloride (KCl Oral Soln) 40 meq 1X ONCE PEG Last administered on 14:01; Start 08/16/16 at 12:00; Stop 08/16/16 at 12:01; Status DC Magnesium Sulfate/ Dextrose 50 ml @ 25 mls/hr 1X ONCE IV Last administered on 08/16/16 17:14; Start 08/16/16 at 16:30; Stop 08/16/16 at 18:29; Status DC Potassium Chloride (Klor-Con) 40 meq 1X ONCE PO ; Start 08/17/16 at 13:30; Stop 08/17/16 at 13:31; Status Cancel Potassium Chloride (KCl Oral Soln) 40 meq 1X ONCE PO Last administered on 08/17 15:34; Start 08/17/16 at 13:30; Stop 08/17/16 at 14:27; Status DC Potassium Chloride 100 ml @ 100 mls/hr PRN Q1HR PRN IV HYPOKALEMIA PER ICU PROTOCOL; Start 08/17/16 at 13:30; Status Cancel Potassium Chloride 50 ml @ 25 mls/hr PRN Q2HR PRN IV HYPOKALEMIA PER ICU PROTOCOL Last administered on 08/21/16 13:29; Start 08/17/16 at 13:30; Stop 08/21 at 13:34; Status DC Potassium Chloride (Klor-Con) 40 meq PRN Q2HR PRN PO HYPOKALEMIA PER ICU PROTOCOL; Start 08/17/16 at 13:30 Potassium Chloride 100 ml @ 100 mls/hr PRN Q1HR PRN IV HYPOKALEMIA PER ICU PROTOCOL; Start 08/17/16 at 13:30 Potassium Chloride 50 ml @ 25 mls/hr PRN Q2HR PRN IV HYPOKALEMIA PER ICU PROTOCOL; Start 08/17/16 at 13:30 Potassium Chloride (Klor-Con) 40 meq PRN Q2HR PRN PO HYPOKALEMIA PER ICU PROTOCOL; Start 08/17/16 at 13:30 Potassium Chloride 100 ml @ 100 mls/hr PRN Q1HR PRN IV HYPOKALEMIA PER ICU PROTOCOL; Start 08/17/16 at 13:30; Status Cancel Potassium Chloride 50 ml @ 25 mls/hr PRN Q2HR PRN IV HYPOKALEMIA PER ICU PROTOCOL; Start 08/17/16 at 14:00 Magnesium Sulfate/ Dextrose 100 ml @ 50 mls/hr PRN DAILY PRN IV HYPOMAGNESIA PER ICU PROTOCOL Last administered on 08/20/16 22:26; Start 08/18/16 at 09:00 Potassium Phos/ Sodium Phos (Phos-Nak) 1 pkt BID PO ; Start 08/17/16 at 21:00; Stop 08/18/16 at 09:01; Status DC Sodium Phosphate 40 mmol/Dextrose 263.3333 ml @ 62.5 mls/hr PRN 1X PRN IV HYPOPHOSP PER ICU PROTOCOL; Start 08/17/16 at 13:30 Potassium Chloride (KCl Oral Soln) 40 meq 1X ONCE PEG Last administered on 08/19 07:57; Start 08/19/16 at 07:45; Stop 08/19/16 at 07:46; Status DC Potassium Chloride (KCl Oral Soln) 40 meq 1X ONCE PEG Last administered on 08/19 11:36; Start 08/19/16 at 12:00; Stop 08/19/16 at 12:01; Status DC Alprazolam (Xanax) 0.5 mg 1X ONCE PO Last administered on 08/19/16 11:35; Start 08/19/16 at 11:15; Stop 08/19/16 at 11:16; Status DC Alprazolam (Xanax) 0.5 mg TID PEG Last administered on 08/23/16 20:34; Start at 15:00; Stop 08/24/16 at 08:11; Status DC Potassium Chloride 50 ml @ 50 mls/hr Q1H IV Last administered on 08/22/16 09:40 ; Start 08/22/16 at 08:30; Stop 08/22/16 at 10:29; Status DC Haloperidol Lactate (Haldol) 5 mg PRN Q6HRS PRN IVP AGITATION Last administered on 08/27/16 04:07; Start 08/22/16 at 09:15 Haloperidol Lactate (Haldol) 2 mg 1X ONCE IVP ; Start 08/22/16 at 09:15; Stop at 09:27; Status DC Magnesium Sulfate/ Dextrose 100 ml @ 50 mls/hr DAILY IV Last administered on 10:00; Start 08/23/16 at 09:00; Stop 08/26/16 at 08:59; Status DC Albumin Human 100 ml @ 100 mls/hr [id number] IV Last administered on 08/23/16 17:25 ; Start 08/23/16 at 09:00; Stop 08/23/16 at 16:59; Status DC Furosemide (Lasix) 40 mg [id number] IVP Last administered on 08/23/16 17:26; Start 08/23/16 at 09:00; Stop 08/23/16 at 16:01; Status DC Vitamin A/Vitamin D (Vitamin A & D Ointment) 1 james PRN Q1HR PRN TP SKIN PROTECTION; Start 08/23/16 at 08:45 Cefepime HCl 1 gm/ Sodium Chloride 50 ml @ 100 mls/hr Q8HRS IV Last administered on 08/27/16 06:11; Start 08/23/16 at 14:00 Ondansetron HCl (Zofran) 4 mg PRN Q6HRS PRN IV NAUSEA/VOMITING Last administered on 08/23/16 19:27; Start 08/23/16 at 19:15 Alprazolam (Xanax) 0.25 mg TID PEG ; Start 08/24/16 at 09:00; Stop 08/24/16 at 09: 28; Status DC Diphenhydramine HCl (Benadryl) 25 mg HS PO ; Start 08/24/16 at 21:00; Stop at 21:00; Status DC Zolpidem Tartrate (Ambien) 5 mg PRN QHS PRN PO INSOMNIA; Start 08/24/16 at 08:15 Alprazolam (Xanax) 0.5 mg TID PEG Last administered on 08/27/16 09:23; Start at 09:00 Diphenhydramine HCl (Benadryl) 25 mg PRN QHS PRN PO sleep; Start 08/24/16 at 21: 00 Quetiapine Fumarate (SEROquel) 50 mg HS PO Last administered on 08/26/16 21:31 ; Start 08/24/16 at 21:00 Potassium Chloride 50 ml @ 50 mls/hr Q1H IV Last administered on 08/25/16 09:45 ; Start 08/25/16 at 08:00; Stop 08/25/16 at 09:59; Status DC Iohexol (Omnipaque 300 Mg/ml) 75 ml 1X ONCE IV Last administered on 08/25/16 15:45; Start 08/25/16 at 15:45; Stop 08/25/16 at 15:46; Status DC Iohexol (Omnipaque 240 Mg/ml) 50 ml 1X ONCE PO Last administered on 08/25/16 15:45; Start 08/25/16 at 15:45; Stop 08/25/16 at 15:46; Status DC Info (Do NOT chart on this entry -- for MONITORING) 1 each PRN DAILY PRN MC SEE COMMENTS; Start 08/25/16 at 16:00; Stop 08/27/16 at 15:59 Chlorhexidine Gluconate (Peridex) 15 ml BID SWSP Last administered on 08/27/16 09:23; Start 08/26/16 at 09:00 Potassium Chloride 50 ml @ 50 mls/hr Q1H IV ; Start 08/26/16 at 11:30; Stop at 11:30; Status DC Acetaminophen (Tylenol) 650 mg PRN Q6HRS PRN PEG MILD PAIN / TEMP Last administered on 08/26/16 11:56; Start 08/26/16 at 12:00 Lidocaine/Sodium Bicarbonate (Buffered Lidocaine 1%) 20 ml STK-MED ONCE IJ ; Start 08/26/16 at 14:50; Stop 08/26/16 at 14:51; Status DC Lidocaine/Sodium Bicarbonate (Buffered Lidocaine 1%) 20 ml 1X ONCE IJ Last administered on 08/26/16 15:42; Start 08/26/16 at 15:45; Stop 08/26/16 at 15:46; Status DC Lansoprazole (Prevacid) 30 mg BIDBFRMEAL FT ; Start 08/27/16 at 17:30 Active Scripts Active Reported No Known Medications Prior To Admisstion (Info) Each 1 Each Vitals/I & O Vital Sign - Last 24 Hours 08/26/16 08/26/16 08/26/16 08/26/16 11:00 12:00 12:00 12:13 Temp 100.5 100.5 Pulse 111 105 Resp 30 B/P (MAP) 116/73 (87) 117/83 (94) Pulse Ox 98 97 96 O2 Delivery Ventilator Mechanical Ventilator Ventilator Ventilator O2 Flow Rate 10.0 08/26/16 08/26/16 08/26/16 08/26/16 12:17 12:43 13:00 14:00 Pulse 107 104 Resp 28 B/P (MAP) 111/72 (85) 110/71 (84) Pulse Ox 96 96 100 98 O2 Delivery Ventilator Ventilator Ventilator O2 Flow Rate 10.0 08/26/16 08/26/16 08/26/16 08/26/16 14:55 15:24 15:42 16:00 Temp 97.9 97.9 Pulse 109 98 96 Resp 22 21 21 B/P (MAP) 111/80 (90) 111/78 (89) 111/78 (89) Pulse Ox 100 100 98 O2 Delivery Ventilator Ventilator Ventilator Ventilator 08/26/16 08/26/16 08/26/16 08/26/16 16:00 16:15 16:38 16:45 Resp 23 21 Pulse Ox 96 100 100 O2 Delivery Ventilator Ventilator Mechanical Ventilator Ventilator O2 Flow Rate 10.0 10.0 10.0 08/26/16 08/26/16 08/26/16 08/26/16 17:00 17:50 18:00 19:00 Pulse 92 100 108 Resp 21 20 22 B/P (MAP) 99/66 (77) 105/75 (85) 106/66 (79) Pulse Ox 99 100 99 100 O2 Delivery Ventilator Ventilator Ventilator Ventilator 08/26/16 08/26/16 08/26/16 08/26/16 19:54 19:55 20:00 20:00 Temp 98.2 98.2 Pulse 108 Resp 24 B/P (MAP) 110/60 (77) Pulse Ox 100 100 100 O2 Delivery Ventilator Ventilator Mechanical Ventilator Ventilator 08/26/16 08/26/16 08/26/16 08/26/16 21:00 22:00 23:00 23:22 Pulse 112 122 110 Resp 25 25 24 25 B/P (MAP) 112/71 (85) 115/77 (90) 98/57 (71) Pulse Ox 99 98 99 100 O2 Delivery Ventilator Ventilator Ventilator Ventilator 08/26/16 08/27/16 08/27/16 08/27/16 23:22 00:00 00:00 01:02 Temp 98.4 98.4 Pulse 108 106 Resp 22 25 B/P (MAP) 98/59 (72) 96/60 (72) Pulse Ox 100 100 100 O2 Delivery Ventilator Mechanical Ventilator Ventilator Ventilator 08/27/16 08/27/16 08/27/16 08/27/16 01:44 02:01 03:00 03:50 Pulse 105 108 Resp 26 23 B/P (MAP) 96/52 (67) 94/59 (71) Pulse Ox 100 100 100 100 O2 Delivery Ventilator Ventilator Ventilator Ventilator 08/27/16 08/27/16 08/27/16 08/27/16 04:00 04:00 05:00 05:21 Temp 99.1 99.1 Pulse 110 108 Resp 22 23 B/P (MAP) 97/57 (70) 94/59 (71) Pulse Ox 99 100 99 O2 Delivery Mechanical Ventilator Ventilator Ventilator Ventilator 08/27/16 08/27/16 08/27/16 08/27/16 06:00 07:05 08:00 08:00 Temp 98.7 98.7 Pulse 105 108 102 Resp 22 25 24 B/P (MAP) 96/56 (69) 97/63 (74) 97/57 (70) Pulse Ox 99 100 100 O2 Delivery Ventilator Ventilator Mechanical Ventilator Ventilator O2 Flow Rate 08/27/16 08/27/16 08/27/16 08:33 09:00 10:00 Pulse 105 99 Resp 22 21 B/P (MAP) 77/42 (54) 100/58 (72) Pulse Ox 99 97 100 O2 Delivery Ventilator Ventilator Ventilator Intake and Output 08/26/16 08/26/16 08/27/16 15:00 23:00 07:00 Intake Total 0 ml 749.15 ml 1019 ml Output Total 214 ml 2056 ml 650 ml Balance -214 ml -1306.85 ml 369 ml Assessment Stable on tube feeding. Plan of Care: Continue current Tx, Mgmt RICHAR LITTLE MD August 27, 2016 10:38
[2016-08-27] MEDS: POTASSIUM CHLORIDE 20MEQ 50 ML IV SCH ×2 (13:23→14:00)
[2016-08-27] MEDS: IV 1/2 NORMAL SALINE 1,000 ML IV SCH (13:31)
[2016-08-27] MEDS: LANSOPRAZOLE 30 MG TAB.RAP.DR FT SCH (17:52)
[2016-08-27 21:06] LABS: HEMATOCRIT 26.6 % (36.0-47.0); HEMOGLOBIN 9.1 g/dL (12.0-15.5); RED BLOOD COUNT 3.06 x10^6/uL (3.50-5.40); RED CELL DISTRIBUTION WIDTH 16.6 % (11.5-14.5)
[2016-08-27] MEDS: QUEtiapine 25 MG TABLET. PO SCH (21:14)
[2016-08-27 21:16] LABS: CALCIUM 7.9 mg/dL (8.5-10.1); CREATININE 0.6 mg/dL (0.6-1.0); GFR 109.6
[2016-08-28] VITALS (23 sets, daily range): BP systolic 87–126; BP diastolic 51–92
[2016-08-28 06:29] LABS: BASO # 0.1 x10^3/uL (0.0-0.2); BASO % 1 % (0-3); EOS % 2 % (0-3); HEMATOCRIT 25.5 % (36.0-47.0); HEMOGLOBIN 8.6 g/dL (12.0-15.5); LYMPH # 1.3 x10^3/uL (1.0-4.8); LYMPH % 10 % (24-48); MEAN CORPUSCULAR HEMOGLOBIN 29 pg (25-35); MEAN CORPUSCULAR HGB CONC 34 g/dL (31-37); MEAN CORPUSCULAR VOLUME 87 fL (79-100); MONO % 8 % (0-9); NEUT % 79 % (31-73); PLATELET COUNT 290 x10^3/uL (140-400); RED BLOOD COUNT 2.93 x10^6/uL (3.50-5.40); WHITE BLOOD COUNT 12.7 x10^3/uL (4.0-11.0)
[2016-08-28 06:34] LABS: CALCIUM 7.8 mg/dL (8.5-10.1); CREATININE 0.7 mg/dL (0.6-1.0); GFR 91.8; POTASSIUM 4.1 mmol/L (3.5-5.1)
[2016-08-28] MEDS: CEFEPIME HCL 1 GM in IV NORMAL SALINE 50ML 50 ML IV SCH ×3 (06:34→21:34)
--- NOTE | 2016-08-28 07:37 | PDOC ---
Infectious Disease Note Subjective Subjective Doing ok ROS ROS Trached - hard to obtain but nods ok Vital Sign Vital Signs Vital Signs Date Time Temp Pulse Resp B/P (MAP) Pulse Ox O2 Delivery O2 Flow Rate FiO2 08/28/16 07:00 92 23 112/72 (85) 100 Ventilator 08/28/16 04:00 100.0 100.0 08/27/16 14:06 10.0 Physical Exam PHYSICAL EXAM GENERAL: Resting, NAD, appears comfortable. Alert. Looks better HENT: Oral cavity pink, dry, poor dentition, + decay NECK: Trach, + secretions LUNGS: CTA. Bilat chest tubes HEART: S1S2 ABD: Mildly distended, soft, BS present. + g-tube & rectal tube : [place] EXT: Generalized edema. No cyanosis SKIN: No rash LUE-PICC. clean Labs Lab Laboratory Tests Test 08/27/16 09:40 08/27/16 20:53 08/28/16 05:30 White Blood Count 12.4 x10^3/uL (4.0-11.0) 14.0 x10^3/uL (4.0-11.0) 12.7 x10^3/uL (4.0-11.0) Red Blood Count 2.26 x10^6/uL (3.50-5.40) 3.06 x10^6/uL (3.50-5.40) 2.93 x10^6/uL (3.50-5.40) Hemoglobin 6.7 g/dL (12.0-15.5) 9.1 g/dL (12.0-15.5) 8.6 g/dL (12.0-15.5) Hematocrit 20.0 % (36.0-47.0) 26.6 % (36.0-47.0) 25.5 % (36.0-47.0) Mean Corpuscular Volume 88 fL (79-100) 87 fL (79-100) 87 fL (79-100) Mean Corpuscular Hemoglobin 30 pg (25-35) 30 pg (25-35) 29 pg (25-35) Mean Corpuscular Hemoglobin Concent 34 g/dL (31-37) 34 g/dL (31-37) 34 g/dL (31-37) Red Cell Distribution Width 16.6 % (11.5-14.5) 16.6 % (11.5-14.5) 17.0 % (11.5-14.5) Platelet Count 262 x10^3/uL (140-400) 317 x10^3/uL (140-400) 290 x10^3/uL (140-400) Neutrophils (%) (Auto) 81 % (31-73) 79 % (31-73) Lymphocytes (%) (Auto) 10 % (24-48) 10 % (24-48) Monocytes (%) (Auto) 8 % (0-9) 8 % (0-9) Eosinophils (%) (Auto) 2 % (0-3) 2 % (0-3) Basophils (%) (Auto) 0 % (0-3) 1 % (0-3) Neutrophils # (Auto) 10.0 x10^3uL (1.8-7.7) 10.0 x10^3uL (1.8-7.7) Lymphocytes # (Auto) 1.2 x10^3/uL (1.0-4.8) 1.3 x10^3/uL (1.0-4.8) Monocytes # (Auto) 1.0 x10^3/uL (0.0-1.1) 1.1 x10^3/uL (0.0-1.1) Eosinophils # (Auto) 0.2 x10^3/uL (0.0-0.7) 0.3 x10^3/uL (0.0-0.7) Basophils # (Auto) 0.1 x10^3/uL (0.0-0.2) 0.1 x10^3/uL (0.0-0.2) Sodium Level 130 mmol/L (136-145) 135 mmol/L (136-145) 132 mmol/L (136-145) Potassium Level 3.2 mmol/L (3.5-5.1) 4.0 mmol/L (3.5-5.1) 4.1 mmol/L (3.5-5.1) Chloride Level 99 mmol/L (98-107) 102 mmol/L (98-107) 102 mmol/L (98-107) Carbon Dioxide Level 24 mmol/L (21-32) 25 mmol/L (21-32) 26 mmol/L (21-32) Anion Gap 7 (6-14) 8 (6-14) 4 (6-14) Blood Urea Nitrogen 16 mg/dL (7-20) 19 mg/dL (7-20) 19 mg/dL (7-20) Creatinine 0.6 mg/dL (0.6-1.0) 0.6 mg/dL (0.6-1.0) 0.7 mg/dL (0.6-1.0) Estimated GFR (Cockcroft-Gault) 109.6 109.6 91.8 BUN/Creatinine Ratio 27 (6-20) Glucose Level 108 mg/dL (70-99) 109 mg/dL (70-99) 107 mg/dL (70-99) Calcium Level 7.0 mg/dL (8.5-10.1) 7.9 mg/dL (8.5-10.1) 7.8 mg/dL (8.5-10.1) Total Bilirubin 0.6 mg/dL (0.2-1.0) Aspartate Amino Transf (AST/SGOT) 16 U/L (15-37) Alanine Aminotransferase (ALT/SGPT) 13 U/L (14-59) Alkaline Phosphatase 145 U/L (46-116) Total Protein 5.6 g/dL (6.4-8.2) Albumin 1.1 g/dL (3.4-5.0) Albumin/Globulin Ratio 0.2 (1.0-1.7) Objective Assessment Loculated pleural effusions- S/p Bilat Chest tubes 08/26. Ecoli in sputum (08/22) Fever ? PRBCs Leukocytosis - better Acute anemia s/p PRBCs, 08/16, 08/20, 08/27 S/p Trach/PEG 08/13 MSSA sepsis 08/01 ([facility]) -Repeat BC positive, 08/05 & 08/07. Neg 08/09 Right-sided bacterial endocarditis. -TTE. 3.0 x 2.0cm mobile mass TV Multiple pulmonary nodules/septic emboli Acute Resp failure - Intubated ? developing ARDS. S/p Bronch 08/08. MSSA. Trach IV drug use. Hep C Ileus Renal insufficiency. Severe thrombocytopenia. improved Hepatosplenomegaly on CT Plan Plan of Care TPA today Nafcillin changed to cefepime to cover for Ecoli in sputum Patient will need a total of six weeks of IV abx to treat endocarditis/ bacteremia Monitor WBC, temp in am Supportive care KAYLYNN SHAY MD August 28, 2016 07:37
--- NOTE | 2016-08-28 07:44 | RAD ---
Indication: Empyema. Time of exam 0621 hours. Correlation is made with prior chest one day earlier. Tracheostomy tube remains with tip above the sundar. Left upper extremity PICC line has the tip overlying the SVC. Moderate to large left effusion with left-sided infiltrate persists. Patchy infiltrates right mid and lower lung dorado are also present. No pneumothorax is seen. Bilateral percutaneous drains remain in place. Impression: Stable chest since one day earlier.
[2016-08-28] MEDS: IPRATRPIUM/ALBUTEROL 0.5/2.5MG 3 ML NEBU. NEB SCH ×4 (08:34→20:38)
[2016-08-28] MEDS: BUDESONIDE 0.5 MG/2 ML NEBU. NEB SCH ×2 (08:35→20:38)
[2016-08-28 08:40] LABS: HCO3 ABG 24 mmol/L (21-28); PCO2 ABG 34 mmHg (35-46); PH ABG 7.46 (7.35-7.45); PO2 ABG 110 mmHg (75-108); SAT O2 ABG 98 % (92-99)
[2016-08-28 08:46] LABS: FIO2 ABG 35
[2016-08-28] MEDS: LANSOPRAZOLE 30 MG TAB.RAP.DR FT SCH ×2 (08:52→16:49)
[2016-08-28] MEDS: CHLORHEXIDINE 0.12% 15 ML MOUTHWASH. SWSP SCH ×2 (08:54→20:51)
[2016-08-28] MEDS: ALPRAZolam 0.5 MG TABLET PEG SCH ×3 (08:54→20:51)
[2016-08-28] MEDS: NYSTATIN TOPICAL POWDER 15GM BOTTLE. TP SCH ×2 (08:59→20:51)
--- NOTE | 2016-08-28 09:31 | PDOC ---
G I PROGRESS NOTE Subjective Awake, alert. Denies abdominal pain. Physical Exam Abdomen soft, not distended. PEG OK. Review of Relevant I have reviewed the following items shanta (where applicable) has been applied. Labs Laboratory Tests Test 08/26/16 15:20 08/27/16 09:40 08/27/16 20:53 08/28/16 05:30 Body Fluid pH 7.0 Body Fluid Glucose 9 mg/dL (.) Body Fluid Total Protein 4.0 g/dL (.) Body Fluid Lactate Dehydrogenase 478 IU/L (.) White Blood Count 12.4 x10^3/uL (4.0-11.0) 14.0 x10^3/uL (4.0-11.0) 12.7 x10^3/uL (4.0-11.0) Red Blood Count 2.26 x10^6/uL (3.50-5.40) 3.06 x10^6/uL (3.50-5.40) 2.93 x10^6/uL (3.50-5.40) Hemoglobin 6.7 g/dL (12.0-15.5) 9.1 g/dL (12.0-15.5) 8.6 g/dL (12.0-15.5) Hematocrit 20.0 % (36.0-47.0) 26.6 % (36.0-47.0) 25.5 % (36.0-47.0) Mean Corpuscular Volume 88 fL (79-100) 87 fL (79-100) 87 fL (79-100) Mean Corpuscular Hemoglobin 30 pg (25-35) 30 pg (25-35) 29 pg (25-35) Mean Corpuscular Hemoglobin Concent 34 g/dL (31-37) 34 g/dL (31-37) 34 g/dL (31-37) Red Cell Distribution Width 16.6 % (11.5-14.5) 16.6 % (11.5-14.5) 17.0 % (11.5-14.5) Platelet Count 262 x10^3/uL (140-400) 317 x10^3/uL (140-400) 290 x10^3/uL (140-400) Neutrophils (%) (Auto) 81 % (31-73) 79 % (31-73) Lymphocytes (%) (Auto) 10 % (24-48) 10 % (24-48) Monocytes (%) (Auto) 8 % (0-9) 8 % (0-9) Eosinophils (%) (Auto) 2 % (0-3) 2 % (0-3) Basophils (%) (Auto) 0 % (0-3) 1 % (0-3) Neutrophils # (Auto) 10.0 x10^3uL (1.8-7.7) 10.0 x10^3uL (1.8-7.7) Lymphocytes # (Auto) 1.2 x10^3/uL (1.0-4.8) 1.3 x10^3/uL (1.0-4.8) Monocytes # (Auto) 1.0 x10^3/uL (0.0-1.1) 1.1 x10^3/uL (0.0-1.1) Eosinophils # (Auto) 0.2 x10^3/uL (0.0-0.7) 0.3 x10^3/uL (0.0-0.7) Basophils # (Auto) 0.1 x10^3/uL (0.0-0.2) 0.1 x10^3/uL (0.0-0.2) Sodium Level 130 mmol/L (136-145) 135 mmol/L (136-145) 132 mmol/L (136-145) Potassium Level 3.2 mmol/L (3.5-5.1) 4.0 mmol/L (3.5-5.1) 4.1 mmol/L (3.5-5.1) Chloride Level 99 mmol/L (98-107) 102 mmol/L (98-107) 102 mmol/L (98-107) Carbon Dioxide Level 24 mmol/L (21-32) 25 mmol/L (21-32) 26 mmol/L (21-32) Anion Gap 7 (6-14) 8 (6-14) 4 (6-14) Blood Urea Nitrogen 16 mg/dL (7-20) 19 mg/dL (7-20) 19 mg/dL (7-20) Creatinine 0.6 mg/dL (0.6-1.0) 0.6 mg/dL (0.6-1.0) 0.7 mg/dL (0.6-1.0) Estimated GFR (Cockcroft-Gault) 109.6 109.6 91.8 BUN/Creatinine Ratio 27 (6-20) Glucose Level 108 mg/dL (70-99) 109 mg/dL (70-99) 107 mg/dL (70-99) Calcium Level 7.0 mg/dL (8.5-10.1) 7.9 mg/dL (8.5-10.1) 7.8 mg/dL (8.5-10.1) Total Bilirubin 0.6 mg/dL (0.2-1.0) Aspartate Amino Transf (AST/SGOT) 16 U/L (15-37) Alanine Aminotransferase (ALT/SGPT) 13 U/L (14-59) Alkaline Phosphatase 145 U/L (46-116) Total Protein 5.6 g/dL (6.4-8.2) Albumin 1.1 g/dL (3.4-5.0) Albumin/Globulin Ratio 0.2 (1.0-1.7) Test 08/28/16 08:00 O2 Saturation 98 % (92-99) Arterial Blood pH 7.46 (7.35-7.45) Arterial Blood pCO2 at Patient Temp 34 mmHg (35-46) Arterial Blood pO2 at Patient Temp 110 mmHg (75-108) Arterial Blood HCO3 24 mmol/L (21-28) Arterial Blood Base Excess 0 mmol/L (-3-3) FiO2 35 Laboratory Tests Test 08/27/16 09:40 08/27/16 20:53 08/28/16 05:30 08/28/16 08:00 White Blood Count 12.4 x10^3/uL (4.0-11.0) 14.0 x10^3/uL (4.0-11.0) 12.7 x10^3/uL (4.0-11.0) Red Blood Count 2.26 x10^6/uL (3.50-5.40) 3.06 x10^6/uL (3.50-5.40) 2.93 x10^6/uL (3.50-5.40) Hemoglobin 6.7 g/dL (12.0-15.5) 9.1 g/dL (12.0-15.5) 8.6 g/dL (12.0-15.5) Hematocrit 20.0 % (36.0-47.0) 26.6 % (36.0-47.0) 25.5 % (36.0-47.0) Mean Corpuscular Volume 88 fL (79-100) 87 fL (79-100) 87 fL (79-100) Mean Corpuscular Hemoglobin 30 pg (25-35) 30 pg (25-35) 29 pg (25-35) Mean Corpuscular Hemoglobin Concent 34 g/dL (31-37) 34 g/dL (31-37) 34 g/dL (31-37) Red Cell Distribution Width 16.6 % (11.5-14.5) 16.6 % (11.5-14.5) 17.0 % (11.5-14.5) Platelet Count 262 x10^3/uL (140-400) 317 x10^3/uL (140-400) 290 x10^3/uL (140-400) Neutrophils (%) (Auto) 81 % (31-73) 79 % (31-73) Lymphocytes (%) (Auto) 10 % (24-48) 10 % (24-48) Monocytes (%) (Auto) 8 % (0-9) 8 % (0-9) Eosinophils (%) (Auto) 2 % (0-3) 2 % (0-3) Basophils (%) (Auto) 0 % (0-3) 1 % (0-3) Neutrophils # (Auto) 10.0 x10^3uL (1.8-7.7) 10.0 x10^3uL (1.8-7.7) Lymphocytes # (Auto) 1.2 x10^3/uL (1.0-4.8) 1.3 x10^3/uL (1.0-4.8) Monocytes # (Auto) 1.0 x10^3/uL (0.0-1.1) 1.1 x10^3/uL (0.0-1.1) Eosinophils # (Auto) 0.2 x10^3/uL (0.0-0.7) 0.3 x10^3/uL (0.0-0.7) Basophils # (Auto) 0.1 x10^3/uL (0.0-0.2) 0.1 x10^3/uL (0.0-0.2) Sodium Level 130 mmol/L (136-145) 135 mmol/L (136-145) 132 mmol/L (136-145) Potassium Level 3.2 mmol/L (3.5-5.1) 4.0 mmol/L (3.5-5.1) 4.1 mmol/L (3.5-5.1) Chloride Level 99 mmol/L (98-107) 102 mmol/L (98-107) 102 mmol/L (98-107) Carbon Dioxide Level 24 mmol/L (21-32) 25 mmol/L (21-32) 26 mmol/L (21-32) Anion Gap 7 (6-14) 8 (6-14) 4 (6-14) Blood Urea Nitrogen 16 mg/dL (7-20) 19 mg/dL (7-20) 19 mg/dL (7-20) Creatinine 0.6 mg/dL (0.6-1.0) 0.6 mg/dL (0.6-1.0) 0.7 mg/dL (0.6-1.0) Estimated GFR (Cockcroft-Gault) 109.6 109.6 91.8 BUN/Creatinine Ratio 27 (6-20) Glucose Level 108 mg/dL (70-99) 109 mg/dL (70-99) 107 mg/dL (70-99) Calcium Level 7.0 mg/dL (8.5-10.1) 7.9 mg/dL (8.5-10.1) 7.8 mg/dL (8.5-10.1) Total Bilirubin 0.6 mg/dL (0.2-1.0) Aspartate Amino Transf (AST/SGOT) 16 U/L (15-37) Alanine Aminotransferase (ALT/SGPT) 13 U/L (14-59) Alkaline Phosphatase 145 U/L (46-116) Total Protein 5.6 g/dL (6.4-8.2) Albumin 1.1 g/dL (3.4-5.0) Albumin/Globulin Ratio 0.2 (1.0-1.7) O2 Saturation 98 % (92-99) Arterial Blood pH 7.46 (7.35-7.45) Arterial Blood pCO2 at Patient Temp 34 mmHg (35-46) Arterial Blood pO2 at Patient Temp 110 mmHg (75-108) Arterial Blood HCO3 24 mmol/L (21-28) Arterial Blood Base Excess 0 mmol/L (-3-3) FiO2 35 Microbiology 08/12/16 Blood Fungal Culture - Preliminary, Resulted 08/12/16 Fungal Culture Result 1 - Preliminary, Resulted 08/26/16 Gram Stain - Final, Complete 08/22/16 Gram Stain - Final, Complete Medications Current Medications Amino Acids/ Glycerin/ Electrolytes 1,000 ml @ 100 mls/hr Q10H IV Last administered on 08/05/16 02:40; Start 08/02/16 at 03:00; Stop 08/05/16 at 08:50 ; Status DC Morphine Sulfate 2 mg PRN Q2HR PRN IV SEVERE PAIN Last administered on 11:59; Start 08/02/16 at 02:30; Stop 08/02/16 at 13:28; Status DC Daptomycin 220 mg/ Sodium Chloride 50 ml @ 100 mls/hr Q24H IV ; Start 08/02/16 at 09:15; Stop 08/02/16 at 15:58; Status DC Cefepime HCl 1 gm/ Sodium Chloride 50 ml @ 100 mls/hr Q12HR IV Last administered on 08/04/16 08:10; Start 08/02/16 at 10:00; Stop 08/04/16 at 10:33 ; Status DC Daptomycin 220 mg/ Sodium Chloride 50 ml @ 100 mls/hr ONCE ONCE IV ; Start at 10:00; Stop 08/02/16 at 10:29; Status Cancel Potassium Chloride (Klor-Con) 40 meq 1X ONCE PO Last administered on 10:17; Start 08/02/16 at 09:45; Stop 08/02/16 at 09:46; Status DC Daptomycin 220 mg/ Sodium Chloride 50 ml @ 100 mls/hr Q24H IV Last administered on 08/03/16 09:43; Start 08/02/16 at 10:15; Stop 08/03/16 at 10:29 ; Status DC Potassium Chloride (Klor-Con) 40 meq 1X ONCE PO Last administered on 12:57; Start 08/02/16 at 12:30; Stop 08/02/16 at 12:36; Status DC Morphine Sulfate 5 mg PRN Q2HRS PRN IV MODERATE TO SEVERE PAIN Last administered on 08/26/16 16:15; Start 08/02/16 at 13:30; Stop 08/26/16 at 17:31; Status DC Morphine Sulfate 8 mg PRN Q2HRS PRN IV MODERATE TO SEVERE PAIN Last administered on 08/04/16 14:58; Start 08/02/16 at 13:30; Stop 08/26/16 at 17:31 ; Status DC Acetaminophen (Tylenol) 650 mg PRN Q6HRS PRN PO TEMP GREATER THAN 100.4 Last administered on 08/26/16 00:24; Start 08/02/16 at 14:45; Stop 08/26/16 at 17:31; Status DC Lactated Ringer's 1,000 ml @ 50 mls/hr Q20H IV ; Start 08/05/16 at 07:00; Stop 08/05/16 at 18:13; Status DC Daptomycin 220 mg/ Sodium Chloride 50 ml @ 100 mls/hr Q24H IV ; Start 08/03/16 at 11:00; Status Cancel Potassium Chloride (Klor-Con) 40 meq 1X ONCE PO Last administered on 17:41; Start 08/02/16 at 17:15; Stop 08/02/16 at 17:18; Status DC Potassium Chloride (Klor-Con) 40 meq BIDWMEALS PO ; Start 08/03/16 at 08:00; Stop 08/03/16 at 11:08; Status DC Morphine Sulfate 5 mg 1X ONCE IV Last administered on 08/02/16 21:45; Start 08/02/16 at 21:30; Stop 08/02/16 at 21:33; Status DC Lorazepam (Ativan) 1 mg 1X ONCE IV Last administered on 08/02/16 21:30; Start 08/02/16 at 21:30; Stop 08/02/16 at 21:33; Status DC Acetaminophen (Acetaminophen Supp) 650 mg PRN Q6HRS PRN NV MILD PAIN / TEMP Last administered on 08/13/16 03:13; Start 08/03/16 at 01:15; Stop 08/26/16 at 17:31; Status DC Albuterol/ Ipratropium (Duoneb) 3 ml RTQID NEB Last administered on 08/28/16 08:34; Start 08/03/16 at 08:00 Budesonide (Pulmicort) 0.5 mg RTBID NEB Last administered on 08/28/16 08:35; Start 08/03/16 at 08:00 Pantoprazole Sodium (Protonix Vial) 40 mg 1X ONCE IVP Last administered on 10:06; Start 08/03/16 at 08:00; Stop 08/03/16 at 08:01; Status DC Daptomycin 320 mg/ Sodium Chloride 50 ml @ 100 mls/hr Q24H IV Last administered on 08/04/16 10:03; Start 08/04/16 at 10:00; Stop 08/04/16 at 10:33 ; Status DC Lorazepam (Ativan) 0.5 mg PRN Q6HRS PRN IV ANXIETY / AGITATION Last administered on 08/04/16 09:12; Start 08/03/16 at 11:15; Stop 08/07/16 at 11:02 ; Status DC Lorazepam (Ativan) 0.5 mg 1X ONCE IV Last administered on 08/04/16 10:00; Start 08/04/16 at 10:00; Stop 08/04/16 at 10:01; Status DC Morphine Sulfate 5 mg 1X ONCE IV Last administered on 08/04/16 10:00; Start 08/04/16 at 10:00; Stop 08/04/16 at 10:01; Status DC Lorazepam (Ativan) 0.5 mg PRN Q4HRS PRN IV ANXIETY / AGITATION Last administered on 08/25/16 02:29; Start 08/04/16 at 10:00; Stop 08/26/16 at 17:31; Status DC Nafcillin Sodium 2 gm/Sodium Chloride 100 ml @ 200 mls/hr Q4HRS IV Last administered on 08/09/16 10:10; Start 08/04/16 at 12:00; Stop 08/09/16 at 11:49 ; Status DC Propofol 100 ml @ As Directed STK-MED ONCE IV ; Start 08/04/16 at 16:10; Stop 08/04/16 at 16:11; Status DC Succinylcholine Chloride (Anectine) 200 mg STK-MED ONCE .ROUTE ; Start 08/04/16 at 16:14; Stop 08/04/16 at 16:15; Status DC Succinylcholine Chloride (Anectine) 200 mg 1X ONCE IV ; Start 08/04/16 at 16:45 ; Stop 08/04/16 at 16:46; Status DC Propofol 100 ml @ 0 mls/hr CONT PRN IV SEE I/O RECORD Last administered on 08/17 10:18; Start 08/04/16 at 16:45; Stop 08/26/16 at 17:31; Status DC Lorazepam (Ativan) 0.5 mg 1X ONCE IV Last administered on 08/04/16 16:45; Start 08/04/16 at 16:45; Stop 08/04/16 at 16:46; Status DC Morphine Sulfate 5 mg 1X ONCE IV Last administered on 08/04/16 16:44; Start 08/04/16 at 16:45; Stop 08/04/16 at 16:46; Status DC Fentanyl Citrate 30 ml @ 0 mls/hr CONT PRN IV PROTOCOL Last administered on 02:27; Start 08/04/16 at 16:45 Chlorhexidine Gluconate (Peridex) 15 ml BID MM Last administered on 08/17/16 10:18; Start 08/04/16 at 21:00; Stop 08/17/16 at 19:36; Status DC Famotidine (Pepcid) 20 mg BID IVP Last administered on 08/26/16 08:43; Start at 17:00; Stop 08/26/16 at 17:31; Status DC Sodium Chloride 1,000 ml @ 100 mls/hr Q10H IV Last administered on 08/07/16 04:35; Start 08/05/16 at 09:00; Stop 08/07/16 at 08:59; Status DC Succinylcholine Chloride (Anectine) 200 mg STK-MED ONCE .ROUTE ; Start 08/04/16 at 16:00; Stop 08/05/16 at 12:32; Status DC Lorazepam (Ativan) 2 mg 1X ONCE IV Last administered on 08/05/16 20:43; Start 08/05/16 at 21:00; Stop 08/05/16 at 21:01; Status DC Furosemide (Lasix) 40 mg 1X PRN PRN IV blood transfusion Last administered on 14:17; Start 08/06/16 at 08:00; Stop 08/07/16 at 07:59; Status DC Sodium Bicarbonate 50 meq 1X ONCE IV Last administered on 08/06/16 14:06; Start 08/06/16 at 12:00; Stop 08/06/16 at 12:01; Status DC Calcium Chloride 1,000 mg STK-MED ONCE IV ; Start 08/04/16 at 12:00; Stop at 15:13; Status DC Epinephrine HCl (Epinephrine Syringe) 2 mg STK-MED ONCE .ROUTE ; Start 08/04/16 at 12:00; Stop 08/06/16 at 15:13; Status DC Sodium Bicarbonate 100 meq STK-MED ONCE .ROUTE ; Start 08/04/16 at 12:00; Stop 08/06/16 at 15:13; Status DC Amino Acids/ Glycerin/ Electrolytes 1,000 ml @ 100 mls/hr Q10H IV Last administered on 08/08/16 12:33; Start 08/07/16 at 10:00; Stop 08/09/16 at 09:42 ; Status DC Enoxaparin Sodium (Lovenox 40mg Syringe) 40 mg Q24H SQ Last administered on 13:10; Start 08/07/16 at 13:00; Stop 08/10/16 at 10:43; Status DC Vecuronium [place] (Norcuron Bolus) 10 mg STK-MED ONCE IV ; Start 08/07/16 at 13 :56; Stop 08/07/16 at 13:57; Status DC Vecuronium [place] (Norcuron Bolus) 6 mg 1X ONCE IV Last administered on 14:06; Start 08/07/16 at 14:00; Stop 08/07/16 at 14:05; Status DC Sodium Bicarbonate 50 meq 1X ONCE IV Last administered on 08/08/16 11:46; Start 08/08/16 at 11:45; Stop 08/08/16 at 11:46; Status DC Nystatin (Nystop) 1 james BID TP Last administered on 08/28/16 08:59; Start at 21:00 Linezolid 300 ml @ 300 mls/hr Q12HR IV Last administered on 08/14/16 20:51; Start 08/09/16 at 09:00; Stop 08/15/16 at 07:21; Status DC Sodium Chloride 1,000 ml @ 20 mls/hr Q24H IV Last administered on 08/26/16 06: 41; Start 08/09/16 at 09:45; Stop 08/27/16 at 13:51; Status DC Sodium Bicarbonate 150 meq/Dextrose 1,150 ml @ 100 mls/hr 1X ONCE IV Last administered on 08/09/16 12:25; Start 08/09/16 at 11:30; Stop 08/09/16 at 22:59 ; Status DC Piperacillin Sod/ Tazobactam Sod (Zosyn Per Pharmacy) 1 each PRN DAILY PRN MC SEE COMMENTS; Start 08/09/16 at 12:00; Stop 08/14/16 at 07:40; Status DC Piperacillin Sod/ Tazobactam Sod 4.5 gm/Sodium Chloride 100 ml @ 200 mls/hr Q6HRS IV Last administered on 08/14/16 05:58; Start 08/09/16 at 12:30; Stop at 07:33; Status DC Vecuronium [place] (Norcuron Bolus) 5 mg PRN Q4HRS PRN IV INCREASED RESPIRATORY ,NOT RELI Last administered on 08/11/16 02:56; Start 08/09/16 at 13:30; Stop at 17:31; Status DC Potassium Chloride 50 ml @ 100 mls/hr Q1H IV ; Start 08/10/16 at 09:30; Stop at 10:59; Status Cancel Potassium Chloride 100 ml @ 100 mls/hr Q1H IV Last administered on 08/10/16 16:28; Start 08/10/16 at 10:30; Stop 08/10/16 at 14:29; Status DC Potassium Chloride (KCl Oral Soln) 60 meq 1X ONCE PEG Last administered on 11:16; Start 08/10/16 at 11:00; Stop 08/10/16 at 11:01; Status DC Sodium Bicarbonate 150 meq/Dextrose 1,150 ml @ 100 mls/hr [id number] IV Last administered on 08/10/16 11:14; Start 08/10/16 at 11:00; Stop 08/10/16 at 22:29 ; Status DC Enoxaparin Sodium (Lovenox 40mg Syringe) 40 mg Q24H SQ ; Start 08/10/16 at 13:00 ; Stop 08/10/16 at 13:00; Status DC Micafungin Sodium 100 mg/Dextrose 100 ml @ 100 mls/hr Q24H IV Last administered on 08/13/16 16:26; Start 08/11/16 at 16:00; Stop 08/14/16 at 07:33 ; Status DC Furosemide (Lasix) 40 mg 1X ONCE IVP Last administered on 08/12/16 08:38; Start 08/12/16 at 08:00; Stop 08/12/16 at 08:06; Status DC Morphine Sulfate 1 mg PRN Q10MIN PRN IV SEVERE PAIN; Start 08/13/16 at 07:00; Stop 08/14/16 at 06:59; Status DC Lactated Ringer's 1,000 ml @ 0 mls/hr Q0M IV ; Start 08/13/16 at 07:00; Stop at 18:59; Status DC Lidocaine HCl 2 ml PRN 1X PRN ID PRIOR TO IV START; Start 08/13/16 at 07:00; Stop 08/14/16 at 06:59; Status DC Hydromorphone HCl (Dilaudid) 0.5 mg PRN Q10MIN PRN IV SEV PAIN, Second choice; Start 08/13/16 at 07:00; Stop 08/14/16 at 06:59; Status DC Prochlorperazine Edisylate (Compazine) 5 mg PACU PRN PRN IV NAUSEA, MRX1; Start 08/13/16 at 07:00; Stop 08/14/16 at 06:59; Status DC Morphine Sulfate 1 mg PRN Q10MIN PRN IV SEVERE PAIN; Start 08/13/16 at 07:00; Stop 08/14/16 at 06:59; Status DC Lactated Ringer's 1,000 ml @ 0 mls/hr Q0M IV ; Start 08/13/16 at 07:00; Stop at 18:59; Status DC Lidocaine HCl 2 ml PRN 1X PRN ID PRIOR TO IV START; Start 08/13/16 at 07:00; Stop 08/14/16 at 06:59; Status DC Hydromorphone HCl (Dilaudid) 0.5 mg PRN Q10MIN PRN IV SEV PAIN, Second choice; Start 08/13/16 at 07:00; Stop 08/14/16 at 06:59; Status DC Prochlorperazine Edisylate (Compazine) 5 mg PACU PRN PRN IV NAUSEA, MRX1; Start 08/13/16 at 07:00; Stop 08/14/16 at 06:59; Status DC Potassium Chloride 50 ml @ 50 mls/hr Q1H IV Last administered on 08/13/16 07: 57; Start 08/13/16 at 07:00; Stop 08/13/16 at 08:59; Status DC Rocuronium [place] (Zemuron) 50 mg STK-MED ONCE .ROUTE ; Start 08/13/16 at 12:50 ; Stop 08/13/16 at 12:51; Status DC Propofol 20 ml @ As Directed STK-MED ONCE IV ; Start 08/13/16 at 12:53; Stop at 12:54; Status DC Sevoflurane (Ultane) 30 ml STK-MED ONCE IH ; Start 08/13/16 at 14:04; Stop 08/13 at 14:05; Status DC Albumin Human 250 ml @ 100 mls/hr 1X ONCE IV Last administered on 08/13/16 23:38; Start 08/13/16 at 18:00; Stop 08/13/16 at 20:29; Status DC Albumin Human 500 ml @ 100 mls/hr 1X ONCE IV Last administered on 08/13/16 18:15; Start 08/13/16 at 18:00; Stop 08/13/16 at 22:59; Status DC Potassium Chloride 50 ml @ 50 mls/hr Q1H IV Last administered on 08/14/16 10: 46; Start 08/14/16 at 08:00; Stop 08/14/16 at 09:59; Status DC Nafcillin Sodium 2 gm/Sodium Chloride 100 ml @ 200 mls/hr Q4HRS IV Last administered on 08/23/16 08:51; Start 08/14/16 at 08:00; Stop 08/23/16 at 10:44; Status DC Enoxaparin Sodium (Lovenox 40mg Syringe) 40 mg Q24H SQ Last administered on 08/25 12:44; Start 08/14/16 at 12:00; Stop 08/26/16 at 11:53; Status DC Potassium Chloride (KCl Oral Soln) 40 meq 1X ONCE PEG Last administered on 07:54; Start 08/16/16 at 07:00; Stop 08/16/16 at 07:01; Status DC Potassium Chloride (KCl Oral Soln) 40 meq 1X ONCE PEG Last administered on 14:01; Start 08/16/16 at 12:00; Stop 08/16/16 at 12:01; Status DC Magnesium Sulfate/ Dextrose 50 ml @ 25 mls/hr 1X ONCE IV Last administered on 08/16/16 17:14; Start 08/16/16 at 16:30; Stop 08/16/16 at 18:29; Status DC Potassium Chloride (Klor-Con) 40 meq 1X ONCE PO ; Start 08/17/16 at 13:30; Stop 08/17/16 at 13:31; Status Cancel Potassium Chloride (KCl Oral Soln) 40 meq 1X ONCE PO Last administered on 08/17 15:34; Start 08/17/16 at 13:30; Stop 08/17/16 at 14:27; Status DC Potassium Chloride 100 ml @ 100 mls/hr PRN Q1HR PRN IV HYPOKALEMIA PER ICU PROTOCOL; Start 08/17/16 at 13:30; Status Cancel Potassium Chloride 50 ml @ 25 mls/hr PRN Q2HR PRN IV HYPOKALEMIA PER ICU PROTOCOL Last administered on 08/21/16 13:29; Start 08/17/16 at 13:30; Stop 08/21 at 13:34; Status DC Potassium Chloride (Klor-Con) 40 meq PRN Q2HR PRN PO HYPOKALEMIA PER ICU PROTOCOL; Start 08/17/16 at 13:30 Potassium Chloride 100 ml @ 100 mls/hr PRN Q1HR PRN IV HYPOKALEMIA PER ICU PROTOCOL; Start 08/17/16 at 13:30 Potassium Chloride 50 ml @ 25 mls/hr PRN Q2HR PRN IV HYPOKALEMIA PER ICU PROTOCOL; Start 08/17/16 at 13:30 Potassium Chloride (Klor-Con) 40 meq PRN Q2HR PRN PO HYPOKALEMIA PER ICU PROTOCOL; Start 08/17/16 at 13:30 Potassium Chloride 100 ml @ 100 mls/hr PRN Q1HR PRN IV HYPOKALEMIA PER ICU PROTOCOL; Start 08/17/16 at 13:30; Status Cancel Potassium Chloride 50 ml @ 25 mls/hr PRN Q2HR PRN IV HYPOKALEMIA PER ICU PROTOCOL Last administered on 08/27/16 14:37; Start 08/17/16 at 14:00 Magnesium Sulfate/ Dextrose 100 ml @ 50 mls/hr PRN DAILY PRN IV HYPOMAGNESIA PER ICU PROTOCOL Last administered on 08/20/16 22:26; Start 08/18/16 at 09:00 Potassium Phos/ Sodium Phos (Phos-Nak) 1 pkt BID PO ; Start 08/17/16 at 21:00; Stop 08/18/16 at 09:01; Status DC Sodium Phosphate 40 mmol/Dextrose 263.3333 ml @ 62.5 mls/hr PRN 1X PRN IV HYPOPHOSP PER ICU PROTOCOL; Start 08/17/16 at 13:30 Potassium Chloride (KCl Oral Soln) 40 meq 1X ONCE PEG Last administered on 08/19 07:57; Start 08/19/16 at 07:45; Stop 08/19/16 at 07:46; Status DC Potassium Chloride (KCl Oral Soln) 40 meq 1X ONCE PEG Last administered on 08/19 11:36; Start 08/19/16 at 12:00; Stop 08/19/16 at 12:01; Status DC Alprazolam (Xanax) 0.5 mg 1X ONCE PO Last administered on 08/19/16 11:35; Start 08/19/16 at 11:15; Stop 08/19/16 at 11:16; Status DC Alprazolam (Xanax) 0.5 mg TID PEG Last administered on 08/23/16 20:34; Start at 15:00; Stop 08/24/16 at 08:11; Status DC Potassium Chloride 50 ml @ 50 mls/hr Q1H IV Last administered on 08/22/16 09:40 ; Start 08/22/16 at 08:30; Stop 08/22/16 at 10:29; Status DC Haloperidol Lactate (Haldol) 5 mg PRN Q6HRS PRN IVP AGITATION Last administered on 08/27/16 04:07; Start 08/22/16 at 09:15 Haloperidol Lactate (Haldol) 2 mg 1X ONCE IVP ; Start 08/22/16 at 09:15; Stop at 09:27; Status DC Magnesium Sulfate/ Dextrose 100 ml @ 50 mls/hr DAILY IV Last administered on 10:00; Start 08/23/16 at 09:00; Stop 08/26/16 at 08:59; Status DC Albumin Human 100 ml @ 100 mls/hr [id number] IV Last administered on 08/23/16 17:25 ; Start 08/23/16 at 09:00; Stop 08/23/16 at 16:59; Status DC Furosemide (Lasix) 40 mg [id number] IVP Last administered on 08/23/16 17:26; Start 08/23/16 at 09:00; Stop 08/23/16 at 16:01; Status DC Vitamin A/Vitamin D (Vitamin A & D Ointment) 1 james PRN Q1HR PRN TP SKIN PROTECTION; Start 08/23/16 at 08:45 Cefepime HCl 1 gm/ Sodium Chloride 50 ml @ 100 mls/hr Q8HRS IV Last administered on 08/28/16 06:34; Start 08/23/16 at 14:00 Ondansetron HCl (Zofran) 4 mg PRN Q6HRS PRN IV NAUSEA/VOMITING Last administered on 08/23/16 19:27; Start 08/23/16 at 19:15 Alprazolam (Xanax) 0.25 mg TID PEG ; Start 08/24/16 at 09:00; Stop 08/24/16 at 09: 28; Status DC Diphenhydramine HCl (Benadryl) 25 mg HS PO ; Start 08/24/16 at 21:00; Stop at 21:00; Status DC Zolpidem Tartrate (Ambien) 5 mg PRN QHS PRN PO INSOMNIA; Start 08/24/16 at 08:15 Alprazolam (Xanax) 0.5 mg TID PEG Last administered on 08/28/16 08:54; Start 08/24/16 at 09:00 Diphenhydramine HCl (Benadryl) 25 mg PRN QHS PRN PO sleep; Start 08/24/16 at 21: 00 Quetiapine Fumarate (SEROquel) 50 mg HS PO Last administered on 08/27/16 21:14 ; Start 08/24/16 at 21:00 Potassium Chloride 50 ml @ 50 mls/hr Q1H IV Last administered on 08/25/16 09:45 ; Start 08/25/16 at 08:00; Stop 08/25/16 at 09:59; Status DC Iohexol (Omnipaque 300 Mg/ml) 75 ml 1X ONCE IV Last administered on 08/25/16 15:45; Start 08/25/16 at 15:45; Stop 08/25/16 at 15:46; Status DC Iohexol (Omnipaque 240 Mg/ml) 50 ml 1X ONCE PO Last administered on 08/25/16 15:45; Start 08/25/16 at 15:45; Stop 08/25/16 at 15:46; Status DC Info (Do NOT chart on this entry -- for MONITORING) 1 each PRN DAILY PRN MC SEE COMMENTS; Start 08/25/16 at 16:00; Stop 08/27/16 at 15:59; Status DC Chlorhexidine Gluconate (Peridex) 15 ml BID SWSP Last administered on 08:54; Start 08/26/16 at 09:00 Potassium Chloride 50 ml @ 50 mls/hr Q1H IV ; Start 08/26/16 at 11:30; Stop at 11:30; Status DC Acetaminophen (Tylenol) 650 mg PRN Q6HRS PRN PEG MILD PAIN / TEMP Last administered on 08/26/16 11:56; Start 08/26/16 at 12:00 Lidocaine/Sodium Bicarbonate (Buffered Lidocaine 1%) 20 ml STK-MED ONCE IJ ; Start 08/26/16 at 14:50; Stop 08/26/16 at 14:51; Status DC Lidocaine/Sodium Bicarbonate (Buffered Lidocaine 1%) 20 ml 1X ONCE IJ Last administered on 08/26/16 15:42; Start 08/26/16 at 15:45; Stop 08/26/16 at 15:46; Status DC Lansoprazole (Prevacid) 30 mg BIDBFRMEAL FT Last administered on 08/28/16 08: 52; Start 08/27/16 at 17:30 Potassium Chloride 50 ml @ 50 mls/hr Q1H IV Last administered on 08/27/16 13:23 ; Start 08/27/16 at 13:00; Stop 08/27/16 at 14:59; Status DC Active Scripts Active Reported No Known Medications Prior To Admisstion (Info) Each 1 Each Vitals/I & O Vital Sign - Last 24 Hours 08/27/16 08/27/16 08/27/16 08/27/16 10:00 10:15 10:30 11:00 Pulse 99 108 Resp 21 27 B/P (MAP) 100/58 (72) 107/67 (80) Pulse Ox 100 100 100 O2 Delivery Ventilator Ventilator Ventilator Ventilator 08/27/16 08/27/16 08/27/16 08/27/16 12:00 12:00 12:24 13:00 Temp 98.7 98.7 Pulse 108 105 Resp 33 28 B/P (MAP) 105/64 (78) 114/66 (82) Pulse Ox 100 100 O2 Delivery Mechanical Ventilator Ventilator Ventilator Ventilator 08/27/16 08/27/16 08/27/16 08/27/16 13:36 14:00 14:06 14:20 Pulse 103 Resp 23 33 33 B/P (MAP) 102/60 (74) Pulse Ox 100 99 100 100 O2 Delivery Ventilator Ventilator Ventilator Ventilator O2 Flow Rate 10.0 08/27/16 08/27/16 08/27/16 08/27/16 15:00 15:05 15:20 15:35 Temp 98.8 99.6 98.8 99.6 Pulse 104 104 102 102 Resp 32 34 30 28 B/P (MAP) 101/62 (75) 102/58 112/73 124/69 Pulse Ox 97 O2 Delivery Ventilator 08/27/16 08/27/16 08/27/16 08/27/16 15:45 16:00 16:00 16:00 Temp 98.7 98.7 Pulse 104 98 100 Resp 34 26 32 B/P (MAP) 103/66 111/68 (82) 111/68 Pulse Ox 100 O2 Delivery Mechanical Ventilator Ventilator 08/27/16 08/27/16 08/27/16 08/27/16 16:20 16:32 17:00 17:14 Temp 99.5 100.1 99.5 100.1 Pulse 98 105 100 Resp 24 34 27 B/P (MAP) 109/65 107/64 (78) 108/70 Pulse Ox 100 99 O2 Delivery Ventilator Ventilator 08/27/16 08/27/16 08/27/16 08/27/16 17:30 17:45 17:45 18:00 Temp 100.1 100.1 100.1 100.1 Pulse 104 104 104 104 Resp 28 32 32 32 B/P (MAP) 107/64 106/67 106/67 108/66 08/27/16 08/27/16 08/27/16 08/27/16 18:00 18:00 18:24 18:56 Temp 98.9 98.9 Pulse 104 108 104 105 Resp 35 28 27 32 B/P (MAP) 108/66 (80) 108/66 111/68 114/68 (83) Pulse Ox 100 99 O2 Delivery Ventilator Ventilator 08/27/16 08/27/16 08/27/16 08/27/16 19:27 20:00 20:00 21:00 Temp 99.4 99.4 Pulse 104 102 Resp 34 32 B/P (MAP) 113/74 (87) 113/73 (86) Pulse Ox 99 100 99 O2 Delivery Ventilator Mechanical Ventilator Ventilator Ventilator 08/27/16 08/27/16 08/27/16 08/27/16 22:00 23:00 23:10 23:15 Pulse 106 106 Resp 35 30 B/P (MAP) 98/57 (71) 103/61 (75) Pulse Ox 99 99 99 99 O2 Delivery Ventilator Ventilator Ventilator Ventilator 08/28/16 08/28/16 08/28/16 08/28/16 00:00 00:00 01:00 01:05 Temp 100.0 100.0 Pulse 100 98 Resp 21 21 B/P (MAP) 103/62 (76) 99/60 (73) Pulse Ox 99 99 100 O2 Delivery Mechanical Ventilator Ventilator Ventilator Ventilator 08/28/16 08/28/16 08/28/16 08/28/16 02:00 03:00 03:10 04:00 Temp 100.0 100.0 Pulse 98 98 96 Resp 21 21 21 B/P (MAP) 105/63 (77) 99/61 (74) 87/71 (76) Pulse Ox 100 99 100 100 O2 Delivery Ventilator Ventilator Ventilator Ventilator 08/28/16 08/28/16 08/28/16 08/28/16 04:00 05:00 05:20 06:00 Pulse 102 96 Resp 25 22 B/P (MAP) 102/62 (75) 99/62 (74) Pulse Ox 99 100 99 O2 Delivery Mechanical Ventilator Ventilator Ventilator Ventilator 08/28/16 08/28/16 08/28/16 08/28/16 07:00 08:00 08:00 08:27 Temp 98.3 98.3 Pulse 92 96 Resp 23 22 B/P (MAP) 112/72 (85) 110/73 (85) Pulse Ox 100 100 100 O2 Delivery Ventilator Mechanical Ventilator Ventilator Ventilator 08/28/16 08/28/16 09:00 09:03 Pulse 97 Resp 32 B/P (MAP) 108/71 (83) Pulse Ox 100 100 O2 Delivery Ventilator Ventilator Intake and Output 08/27/16 08/27/16 08/28/16 14:59 22:59 06:59 Intake Total 350 ml 3011.9 ml 649 ml Output Total 459 ml 404 ml 525 ml Balance -109 ml 2607.9 ml 124 ml Assessment Stable post-PEG. Plan of Care: Continue current Tx, Mgmt RICHAR LITTLE MD August 28, 2016 09:31
--- NOTE | 2016-08-28 10:29 | PDOC ---
PULMONARY PROGRESS NOTES Subjective AC mode s/p bilateral chest tubes Vitals Vital Signs Date Time Temp Pulse Resp B/P (MAP) Pulse Ox O2 Delivery O2 Flow Rate FiO2 08/28/16 09:03 100 Ventilator 08/28/16 09:00 97 32 108/71 (83) 08/28/16 08:00 98.3 98.3 08/27/16 14:06 10.0 Comments ros as mentioned as above other sys otherwise neg ROS: No Chest Pain, No Abdominal Pain General: Alert, No acute distress HEENT: Other (nc at perrl. poor dentition, nose clear) Lungs: Other (decrease bs) Cardiovascular: S1, S2, Other Abdomen: Soft, Non-tender, Other (no mass) Neuro Exam: Alert Extremities: Other (edema) Skin: Warm Labs Laboratory Tests Test 08/26/16 15:20 08/27/16 09:40 08/27/16 20:53 08/28/16 05:30 Body Fluid pH 7.0 Body Fluid Glucose 9 mg/dL (.) Body Fluid Total Protein 4.0 g/dL (.) Body Fluid Lactate Dehydrogenase 478 IU/L (.) White Blood Count 12.4 x10^3/uL (4.0-11.0) 14.0 x10^3/uL (4.0-11.0) 12.7 x10^3/uL (4.0-11.0) Red Blood Count 2.26 x10^6/uL (3.50-5.40) 3.06 x10^6/uL (3.50-5.40) 2.93 x10^6/uL (3.50-5.40) Hemoglobin 6.7 g/dL (12.0-15.5) 9.1 g/dL (12.0-15.5) 8.6 g/dL (12.0-15.5) Hematocrit 20.0 % (36.0-47.0) 26.6 % (36.0-47.0) 25.5 % (36.0-47.0) Mean Corpuscular Volume 88 fL (79-100) 87 fL (79-100) 87 fL (79-100) Mean Corpuscular Hemoglobin 30 pg (25-35) 30 pg (25-35) 29 pg (25-35) Mean Corpuscular Hemoglobin Concent 34 g/dL (31-37) 34 g/dL (31-37) 34 g/dL (31-37) Red Cell Distribution Width 16.6 % (11.5-14.5) 16.6 % (11.5-14.5) 17.0 % (11.5-14.5) Platelet Count 262 x10^3/uL (140-400) 317 x10^3/uL (140-400) 290 x10^3/uL (140-400) Neutrophils (%) (Auto) 81 % (31-73) 79 % (31-73) Lymphocytes (%) (Auto) 10 % (24-48) 10 % (24-48) Monocytes (%) (Auto) 8 % (0-9) 8 % (0-9) Eosinophils (%) (Auto) 2 % (0-3) 2 % (0-3) Basophils (%) (Auto) 0 % (0-3) 1 % (0-3) Neutrophils # (Auto) 10.0 x10^3uL (1.8-7.7) 10.0 x10^3uL (1.8-7.7) Lymphocytes # (Auto) 1.2 x10^3/uL (1.0-4.8) 1.3 x10^3/uL (1.0-4.8) Monocytes # (Auto) 1.0 x10^3/uL (0.0-1.1) 1.1 x10^3/uL (0.0-1.1) Eosinophils # (Auto) 0.2 x10^3/uL (0.0-0.7) 0.3 x10^3/uL (0.0-0.7) Basophils # (Auto) 0.1 x10^3/uL (0.0-0.2) 0.1 x10^3/uL (0.0-0.2) Sodium Level 130 mmol/L (136-145) 135 mmol/L (136-145) 132 mmol/L (136-145) Potassium Level 3.2 mmol/L (3.5-5.1) 4.0 mmol/L (3.5-5.1) 4.1 mmol/L (3.5-5.1) Chloride Level 99 mmol/L (98-107) 102 mmol/L (98-107) 102 mmol/L (98-107) Carbon Dioxide Level 24 mmol/L (21-32) 25 mmol/L (21-32) 26 mmol/L (21-32) Anion Gap 7 (6-14) 8 (6-14) 4 (6-14) Blood Urea Nitrogen 16 mg/dL (7-20) 19 mg/dL (7-20) 19 mg/dL (7-20) Creatinine 0.6 mg/dL (0.6-1.0) 0.6 mg/dL (0.6-1.0) 0.7 mg/dL (0.6-1.0) Estimated GFR (Cockcroft-Gault) 109.6 109.6 91.8 BUN/Creatinine Ratio 27 (6-20) Glucose Level 108 mg/dL (70-99) 109 mg/dL (70-99) 107 mg/dL (70-99) Calcium Level 7.0 mg/dL (8.5-10.1) 7.9 mg/dL (8.5-10.1) 7.8 mg/dL (8.5-10.1) Total Bilirubin 0.6 mg/dL (0.2-1.0) Aspartate Amino Transf (AST/SGOT) 16 U/L (15-37) Alanine Aminotransferase (ALT/SGPT) 13 U/L (14-59) Alkaline Phosphatase 145 U/L (46-116) Total Protein 5.6 g/dL (6.4-8.2) Albumin 1.1 g/dL (3.4-5.0) Albumin/Globulin Ratio 0.2 (1.0-1.7) Test 08/28/16 08:00 O2 Saturation 98 % (92-99) Arterial Blood pH 7.46 (7.35-7.45) Arterial Blood pCO2 at Patient Temp 34 mmHg (35-46) Arterial Blood pO2 at Patient Temp 110 mmHg (75-108) Arterial Blood HCO3 24 mmol/L (21-28) Arterial Blood Base Excess 0 mmol/L (-3-3) FiO2 35 Laboratory Tests Test 08/27/16 20:53 08/28/16 05:30 08/28/16 08:00 White Blood Count 14.0 x10^3/uL (4.0-11.0) 12.7 x10^3/uL (4.0-11.0) Red Blood Count 3.06 x10^6/uL (3.50-5.40) 2.93 x10^6/uL (3.50-5.40) Hemoglobin 9.1 g/dL (12.0-15.5) 8.6 g/dL (12.0-15.5) Hematocrit 26.6 % (36.0-47.0) 25.5 % (36.0-47.0) Mean Corpuscular Volume 87 fL (79-100) 87 fL (79-100) Mean Corpuscular Hemoglobin 30 pg (25-35) 29 pg (25-35) Mean Corpuscular Hemoglobin Concent 34 g/dL (31-37) 34 g/dL (31-37) Red Cell Distribution Width 16.6 % (11.5-14.5) 17.0 % (11.5-14.5) Platelet Count 317 x10^3/uL (140-400) 290 x10^3/uL (140-400) Sodium Level 135 mmol/L (136-145) 132 mmol/L (136-145) Potassium Level 4.0 mmol/L (3.5-5.1) 4.1 mmol/L (3.5-5.1) Chloride Level 102 mmol/L (98-107) 102 mmol/L (98-107) Carbon Dioxide Level 25 mmol/L (21-32) 26 mmol/L (21-32) Anion Gap 8 (6-14) 4 (6-14) Blood Urea Nitrogen 19 mg/dL (7-20) 19 mg/dL (7-20) Creatinine 0.6 mg/dL (0.6-1.0) 0.7 mg/dL (0.6-1.0) Estimated GFR (Cockcroft-Gault) 109.6 91.8 Glucose Level 109 mg/dL (70-99) 107 mg/dL (70-99) Calcium Level 7.9 mg/dL (8.5-10.1) 7.8 mg/dL (8.5-10.1) Neutrophils (%) (Auto) 79 % (31-73) Lymphocytes (%) (Auto) 10 % (24-48) Monocytes (%) (Auto) 8 % (0-9) Eosinophils (%) (Auto) 2 % (0-3) Basophils (%) (Auto) 1 % (0-3) Neutrophils # (Auto) 10.0 x10^3uL (1.8-7.7) Lymphocytes # (Auto) 1.3 x10^3/uL (1.0-4.8) Monocytes # (Auto) 1.1 x10^3/uL (0.0-1.1) Eosinophils # (Auto) 0.3 x10^3/uL (0.0-0.7) Basophils # (Auto) 0.1 x10^3/uL (0.0-0.2) O2 Saturation 98 % (92-99) Arterial Blood pH 7.46 (7.35-7.45) Arterial Blood pCO2 at Patient Temp 34 mmHg (35-46) Arterial Blood pO2 at Patient Temp 110 mmHg (75-108) Arterial Blood HCO3 24 mmol/L (21-28) Arterial Blood Base Excess 0 mmol/L (-3-3) FiO2 35 Medications Active Scripts Medications Dose Route/Sig Days Date Category No Known Medications Prior To Admisstion (Info) Each 1 Each 08/06/16 Reported Comments cxr reviewed, 08/27 improving effusions right, still pockets of effusion on LLL Impression . 1. Acute hypoxemic respiratory failure, multifactorial in etiology / increase secretions , repeat sputum with E-Coli 2. bilateral loculated effusions, suspected empyema, s/p bilateral chest tubes , VERY LOW GLUCOSE(9), LOW PH 3. Bilateral pulmonary nodules with cavitation, due to septic emboli. 4. Endocarditis. right sided, improving vegetations 5. ? chronic obstructive pulmonary disease. 6. Leukocytosis./fever, suspect due to empyema, bilateral 7. Anemia, ongoing 8. Thrombocytopenia. off lovenox 10. Intravenous drug abuse. 11. Tobacco habituation. 12. MSSA septicemia/pneumonia/ CHF 13. ct chest reviewed/ bilateral loculated effusion, suspect empyema, Plan . CPAP trials as tolerated monitor chest tube output . will need TPA via left chest tube today. she agrees Trach secretions for c/s, E-coli, on antibiotic per ID CXR improving antibiotics per ID, cont abx on cefepime now bronchodilators keep I<O off lovenox, continues to have low Hb and need for transfusion. pepcid for prophylaxis discussed w RN/RT CARLEY WORKMAN MD August 28, 2016 10:29
[2016-08-28] MEDS ORDERED: ALTEPLASE 2MG VIAL 5 MG in IV STERILE WATER 50 ML INT CAT ONE (10:45)
--- NOTE | 2016-08-28 12:03 | PDOC ---
PROGRESS NOTES Chief Complaint Chief Complaint Sepsis Acute hypoxic respir failure ASSESSMENT AND PLAN: 1. Sepsis: resolved 2. 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 MSSA. on cefepime (to cover E.coli as well) 3. PNA: septic emboli. sputum now with heavy growth E.coli. bilat effusions suspicious for empyemas. s/p bilat CT placement 08/26 4. Acute respir failure: trached, on vent. weaning as per Pulm service 5. Diatthea: massive, albeit improving per RN. RT in place. poss due to TF, but cannot r/o C.diff after prolonged Abx use. C.diff PCR. change TF, increase free water to compensate for fluid losses 6. Anemia: severe, recurrent: prob multifactorial, incl severe inflammation, HCV toxicity. anemia profile to r/o deficiencies pending 7. Thrombocytopenia: 2/2 infection, now resolved. monitor 8. ELMIRA: resolved 9. Hep C: new dx during current admit. F/U on O/P basis for rx 10. Polysubstance abuse: still on fentanyl drip. wean when CTs d/c.ed 11. Agitation: on seroquel, Xanax. Haldol PRN 12. Malnutrition: severe, POA, weight loss prior to admit, albumin critically low. suspect large component of inflammation as well.PEG feeds History of Present Illness History of Present Illness breathing evenly, c/o pain at CT sites, still on fentanyl gtt Vitals Vitals Vital Signs Date Time Temp Pulse Resp B/P (MAP) Pulse Ox O2 Delivery O2 Flow Rate FiO2 08/28/16 11:08 99 Ventilator 08/28/16 11:00 103 28 126/73 (90) 08/28/16 08:00 98.3 98.3 08/27/16 14:06 10.0 Physical Exam General: Alert, Cooperative, No acute distress Heart: Normal S1, Normal S2, No murmurs Lungs: Other (decrease bs) Abdomen: Normal bowel sounds, Other (Hepatosplenomegaly present) Extremities: No cyanosis, No edema Skin: No breakdown, No significant lesion Labs LABS Laboratory Tests Test 08/27/16 20:53 08/28/16 05:30 08/28/16 08:00 White Blood Count 14.0 x10^3/uL (4.0-11.0) 12.7 x10^3/uL (4.0-11.0) Red Blood Count 3.06 x10^6/uL (3.50-5.40) 2.93 x10^6/uL (3.50-5.40) Hemoglobin 9.1 g/dL (12.0-15.5) 8.6 g/dL (12.0-15.5) Hematocrit 26.6 % (36.0-47.0) 25.5 % (36.0-47.0) Mean Corpuscular Volume 87 fL (79-100) 87 fL (79-100) Mean Corpuscular Hemoglobin 30 pg (25-35) 29 pg (25-35) Mean Corpuscular Hemoglobin Concent 34 g/dL (31-37) 34 g/dL (31-37) Red Cell Distribution Width 16.6 % (11.5-14.5) 17.0 % (11.5-14.5) Platelet Count 317 x10^3/uL (140-400) 290 x10^3/uL (140-400) Sodium Level 135 mmol/L (136-145) 132 mmol/L (136-145) Potassium Level 4.0 mmol/L (3.5-5.1) 4.1 mmol/L (3.5-5.1) Chloride Level 102 mmol/L (98-107) 102 mmol/L (98-107) Carbon Dioxide Level 25 mmol/L (21-32) 26 mmol/L (21-32) Anion Gap 8 (6-14) 4 (6-14) Blood Urea Nitrogen 19 mg/dL (7-20) 19 mg/dL (7-20) Creatinine 0.6 mg/dL (0.6-1.0) 0.7 mg/dL (0.6-1.0) Estimated GFR (Cockcroft-Gault) 109.6 91.8 Glucose Level 109 mg/dL (70-99) 107 mg/dL (70-99) Calcium Level 7.9 mg/dL (8.5-10.1) 7.8 mg/dL (8.5-10.1) Neutrophils (%) (Auto) 79 % (31-73) Lymphocytes (%) (Auto) 10 % (24-48) Monocytes (%) (Auto) 8 % (0-9) Eosinophils (%) (Auto) 2 % (0-3) Basophils (%) (Auto) 1 % (0-3) Neutrophils # (Auto) 10.0 x10^3uL (1.8-7.7) Lymphocytes # (Auto) 1.3 x10^3/uL (1.0-4.8) Monocytes # (Auto) 1.1 x10^3/uL (0.0-1.1) Eosinophils # (Auto) 0.3 x10^3/uL (0.0-0.7) Basophils # (Auto) 0.1 x10^3/uL (0.0-0.2) O2 Saturation 98 % (92-99) Arterial Blood pH 7.46 (7.35-7.45) Arterial Blood pCO2 at Patient Temp 34 mmHg (35-46) Arterial Blood pO2 at Patient Temp 110 mmHg (75-108) Arterial Blood HCO3 24 mmol/L (21-28) Arterial Blood Base Excess 0 mmol/L (-3-3) FiO2 35 Nutrition Consultation Dietary Evaluation: Recommendations by RD: PPN/TPN Comments: Pt is s/p PEG placement 08/14 -Rec. continue the current TF's with Isosource HN, goal rate 40 ml/hr -Sodium is running low (132)- rec. decrease the free water flushes to 30 cc q8h until sodium is WNL's -Rec. continue the liquid protein packets twice daily: 1 at 8AM, 1 at 6pm Expected Outcomes/Goals: Tolerate the TF's at goal rate- met Meet > 75% estimated nutrition needs - met Malnutrition Findings: Reduced Telegraph Inspector Strength: N/A Reduced Telegraph Inspector Strength (Non-Sev: N/A Malnutrition related to morbid: No Weight Status: Overweight Fluid Accumulation (N/A): N/A JUANITO PRETTY MD August 28, 2016 12:03
[2016-08-28 12:34] LABS: % SAT IRON 21 % (15-34); IRON,SERUM 24 ug/dL (50-170)
[2016-08-28 13:08] LABS: LACTATE DEHYDROGENASE 225 U/L (81-234)
[2016-08-28 13:10] LABS: FERRITIN 1247 ng/mL (8-252)
--- NOTE | 2016-08-28 13:41 | OP ---
DATE OF SURGERY: PROCEDURE: Instillation of fibrinolytics through chest tube. Informed consent was obtained from the patient. She agreed to proceed with the procedure. A 5 mg of TPA was diluted with 50 mL of sterile water and was introduced to the left chest tube. The patient tolerated the procedure well. Chest tube will be clamped for 1 hour and then unclamped and placed back to suction. The nurse was given instructions. CARLEY WORKMAN MD DR: GIL/brian JOB#: [id number] / [id number] THERESA
--- NOTE | 2016-08-28 16:25 | PATHOLOGY ---
CYTOPATHOLOGY REPORT CLINICAL HISTORY: Loculated pleural fluid and suspected empyema SPECIMEN(S) RECEIVED: A.Pleural fluid,Right FINAL DIAGNOSIS: Right pleural fluid,ThinPrep and cell block: - No malignant cells identified. Rare mesothelial cells identified within a background of numerous acute inflammatory cells. (JPM:csd; d/t: 08/28/2016) PATHOLOGIST: Kevin Farias M.D. REPORT ELECTRONICALLY SIGNED BY: Kevin Farias M.D. DATE/TIME: 08/28/2016 16:25 GROSS PATHOLOGY: A. Pleural fluid,Right: The specimen is submitted unifxed, labeled "Alina Jones". Received by the Cytology Department is 16 mL of cloudy red fluid. One ThinPrep slide and a cell block were prepared. (mm .) SUPERVISOR ABATTOIR(S): JESSIE Lopez(ASCP) INITIAL CPT CODE(S): A; 51005, 61711 Professional services performed [place] [facility] [address] Technical services performed by [facility] at [address] [place] [address], [address], [place] [address]. PATIENT: ALINA JONES /AGE: 3 1975 (Age: 41) SEX: F PATIENT #: [id number] ALT CASE #: SPECIMEN COLLECTION DATE: 08/27/2016 SPECIMEN RECEIVED DATE: 08/27/[address] [facility] [address] [place] [address], [address] [place] [address] PHONE: [phone] DIRECTOR: José Luis Sarabia M.D. * * * END OF REPORT * * *
[2016-08-28] MEDS: QUEtiapine 25 MG TABLET. PO SCH (20:51)
[2016-08-28] MEDS: ZOLPIDEM 5 MG TABLET. PO PRN (20:51)
[2016-08-29] VITALS (23 sets, daily range): BP systolic 87–113; BP diastolic 51–74
[2016-08-29] MEDS: HALOPERIDOL LACTATE 5 MG/ML VIAL. IVP PRN ×2 (00:23→14:41)
[2016-08-29] MEDS: CEFEPIME HCL 1 GM in IV NORMAL SALINE 50ML 50 ML IV SCH ×3 (05:42→21:52)
[2016-08-29 06:23] LABS: BASO % 0 % (0-3); EOS % 2 % (0-3); HEMATOCRIT 25.5 % (36.0-47.0); HEMOGLOBIN 8.3 g/dL (12.0-15.5); LYMPH # 1.6 x10^3/uL (1.0-4.8); LYMPH % 13 % (24-48); MEAN CORPUSCULAR HEMOGLOBIN 29 pg (25-35); MEAN CORPUSCULAR HGB CONC 33 g/dL (31-37); MEAN CORPUSCULAR VOLUME 89 fL (79-100); MONO % 8 % (0-9); NEUT % 77 % (31-73); PLATELET COUNT 303 x10^3/uL (140-400); RED BLOOD COUNT 2.87 x10^6/uL (3.50-5.40); RED CELL DISTRIBUTION WIDTH 16.5 % (11.5-14.5); WHITE BLOOD COUNT 12.4 x10^3/uL (4.0-11.0)
[2016-08-29 06:24] LABS: CREATININE 0.6 mg/dL (0.6-1.0); GFR 109.6; POTASSIUM 3.6 mmol/L (3.5-5.1)
[2016-08-29] MEDS: LANSOPRAZOLE 30 MG TAB.RAP.DR FT SCH ×2 (07:35→16:01)
--- NOTE | 2016-08-29 07:38 | PDOC ---
Infectious Disease Note Subjective Subjective Doing ok ROS ROS Trached - difficult to obtain but nods ok. Thumbs up Vital Sign Vital Signs Vital Signs Date Time Temp Pulse Resp B/P (MAP) Pulse Ox O2 Delivery O2 Flow Rate FiO2 08/29/16 07:32 22 Ventilator 08/29/16 07:15 96 99/62 (74) 100 08/29/16 04:00 99.1 99.1 Physical Exam PHYSICAL EXAM GENERAL: Resting, NAD, appears comfortable. Alert. Looks better HENT: Oral cavity pink, dry, poor dentition, + decay NECK: Trach, + secretions LUNGS: CTA. Bilat chest tubes HEART: S1S2 ABD: Mildly distended, soft, BS present. + g-tube & rectal tube : [place] EXT: Generalized edema. No cyanosis SKIN: No rash LUE-PICC. estefany Labs Lab Laboratory Tests Test 08/28/16 08:00 08/28/16 10:40 08/29/16 05:45 O2 Saturation 98 % (92-99) Arterial Blood pH 7.46 (7.35-7.45) Arterial Blood pCO2 at Patient Temp 34 mmHg (35-46) Arterial Blood pO2 at Patient Temp 110 mmHg (75-108) Arterial Blood HCO3 24 mmol/L (21-28) Arterial Blood Base Excess 0 mmol/L (-3-3) FiO2 35 Clostridium difficile Toxin (PCR) Negative (Negative) White Blood Count 12.4 x10^3/uL (4.0-11.0) Red Blood Count 2.87 x10^6/uL (3.50-5.40) Hemoglobin 8.3 g/dL (12.0-15.5) Hematocrit 25.5 % (36.0-47.0) Mean Corpuscular Volume 89 fL (79-100) Mean Corpuscular Hemoglobin 29 pg (25-35) Mean Corpuscular Hemoglobin Concent 33 g/dL (31-37) Red Cell Distribution Width 16.5 % (11.5-14.5) Platelet Count 303 x10^3/uL (140-400) Neutrophils (%) (Auto) 77 % (31-73) Lymphocytes (%) (Auto) 13 % (24-48) Monocytes (%) (Auto) 8 % (0-9) Eosinophils (%) (Auto) 2 % (0-3) Basophils (%) (Auto) 0 % (0-3) Neutrophils # (Auto) 9.6 x10^3uL (1.8-7.7) Lymphocytes # (Auto) 1.6 x10^3/uL (1.0-4.8) Monocytes # (Auto) 1.0 x10^3/uL (0.0-1.1) Eosinophils # (Auto) 0.2 x10^3/uL (0.0-0.7) Basophils # (Auto) 0.0 x10^3/uL (0.0-0.2) Sodium Level 134 mmol/L (136-145) Potassium Level 3.6 mmol/L (3.5-5.1) Chloride Level 103 mmol/L (98-107) Carbon Dioxide Level 25 mmol/L (21-32) Anion Gap 6 (6-14) Blood Urea Nitrogen 18 mg/dL (7-20) Creatinine 0.6 mg/dL (0.6-1.0) Estimated GFR (Cockcroft-Gault) 109.6 Glucose Level 111 mg/dL (70-99) Calcium Level 8.0 mg/dL (8.5-10.1) Objective Assessment Loculated pleural effusions- S/p Bilat Chest tubes 08/26. Ecoli in sputum (08/22) Fever ? PRBCs better C-diff neg Leukocytosis - stable Acute anemia s/p PRBCs, 08/16, 08/20, 08/27 S/p Trach/PEG 08/13 MSSA sepsis 08/01 ([facility]) -Repeat BC positive, 08/05 & 08/07. Neg 08/09 Right-sided bacterial endocarditis. -TTE. 3.0 x 2.0cm mobile mass TV Multiple pulmonary nodules/septic emboli Acute Resp failure - Intubated ? developing ARDS. S/p Bronch 08/08. MSSA. Trach IV drug use. Hep C Ileus Renal insufficiency. Severe thrombocytopenia. improved Hepatosplenomegaly on CT Plan Plan of Care Nafcillin changed to cefepime to cover for Ecoli in sputum Patient will need a total of six weeks of IV abx to treat endocarditis/ bacteremia Monitor WBC, temp in am Supportive care KAYLYNN SHAY MD August 29, 2016 07:38
[2016-08-29] MEDS: BUDESONIDE 0.5 MG/2 ML NEBU. NEB SCH ×2 (07:41→19:30)
[2016-08-29] MEDS: IPRATRPIUM/ALBUTEROL 0.5/2.5MG 3 ML NEBU. NEB SCH ×4 (07:42→19:30)
[2016-08-29] MEDS: ALPRAZolam 0.5 MG TABLET PEG SCH ×3 (08:12→20:36)
--- NOTE | 2016-08-29 08:45 | PDOC ---
PROGRESS NOTES Chief Complaint Chief Complaint Sepsis Acute hypoxic respir failure ASSESSMENT AND PLAN: 1. Sepsis: resolved 2. 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 MSSA. on cefepime (to cover E.coli as well) 3. PNA: septic emboli. sputum now with heavy growth E.coli. bilat effusions suspicious for empyemas. s/p bilat CT placement 08/26 4. Acute respir failure: trached, on vent. weaning as per Pulm service 5. Diarrhea: massive, albeit improving per RN. RT in place. C.diff neg. prob due to TF - changed 6. Anemia: severe, recurrent: prob multifactorial, incl severe inflammation, HCV toxicity. inflammation confirmed by iron studies. b12/folate pending. start daily low dose Fe 7. Thrombocytopenia: 2/2 infection, now resolved. monitor 8. ELMIRA: resolved 9. Hep C: new dx during current admit. F/U on O/P basis for rx 10. Polysubstance abuse: still on fentanyl drip. wean when CTs d/c.ed 11. Agitation: on seroquel, Xanax. Haldol PRN 12. Malnutrition: severe, POA, weight loss prior to admit, albumin critically low. suspect large component of inflammation as well. PEG feeds History of Present Illness History of Present Illness abd pain, diarrhea improved. sitting in chair Vitals Vitals Vital Signs Date Time Temp Pulse Resp B/P (MAP) Pulse Ox O2 Delivery O2 Flow Rate FiO2 08/29/16 08:03 98.8 100 22 104/66 (79) 100 BiPAP/CPAP 98.8 Physical Exam General: Alert, Cooperative, No acute distress Heart: Normal S1, Normal S2, No murmurs Lungs: Other (ditended, softer) Abdomen: Normal bowel sounds, Other (Hepatosplenomegaly present) Extremities: No cyanosis, Other (1+ edema) Skin: No breakdown, No significant lesion Labs LABS Laboratory Tests Test 08/28/16 10:40 08/29/16 05:45 Clostridium difficile Toxin (PCR) Negative (Negative) White Blood Count 12.4 x10^3/uL (4.0-11.0) Red Blood Count 2.87 x10^6/uL (3.50-5.40) Hemoglobin 8.3 g/dL (12.0-15.5) Hematocrit 25.5 % (36.0-47.0) Mean Corpuscular Volume 89 fL (79-100) Mean Corpuscular Hemoglobin 29 pg (25-35) Mean Corpuscular Hemoglobin Concent 33 g/dL (31-37) Red Cell Distribution Width 16.5 % (11.5-14.5) Platelet Count 303 x10^3/uL (140-400) Neutrophils (%) (Auto) 77 % (31-73) Lymphocytes (%) (Auto) 13 % (24-48) Monocytes (%) (Auto) 8 % (0-9) Eosinophils (%) (Auto) 2 % (0-3) Basophils (%) (Auto) 0 % (0-3) Neutrophils # (Auto) 9.6 x10^3uL (1.8-7.7) Lymphocytes # (Auto) 1.6 x10^3/uL (1.0-4.8) Monocytes # (Auto) 1.0 x10^3/uL (0.0-1.1) Eosinophils # (Auto) 0.2 x10^3/uL (0.0-0.7) Basophils # (Auto) 0.0 x10^3/uL (0.0-0.2) Sodium Level 134 mmol/L (136-145) Potassium Level 3.6 mmol/L (3.5-5.1) Chloride Level 103 mmol/L (98-107) Carbon Dioxide Level 25 mmol/L (21-32) Anion Gap 6 (6-14) Blood Urea Nitrogen 18 mg/dL (7-20) Creatinine 0.6 mg/dL (0.6-1.0) Estimated GFR (Cockcroft-Gault) 109.6 Glucose Level 111 mg/dL (70-99) Calcium Level 8.0 mg/dL (8.5-10.1) Nutrition Consultation Dietary Evaluation: Recommendations by RD: PPN/TPN Comments: Pt is s/p PEG placement 08/14 -Rec. continue the current TF's with Isosource HN, goal rate 40 ml/hr -Sodium is running low (132)- rec. decrease the free water flushes to 30 cc q8h until sodium is WNL's -Rec. continue the liquid protein packets twice daily: 1 at 8AM, 1 at 6pm Expected Outcomes/Goals: Tolerate the TF's at goal rate- met Meet > 75% estimated nutrition needs - met Malnutrition Findings: Reduced Community Placement Worker Strength: N/A Reduced Community Placement Worker Strength (Non-Sev: N/A Malnutrition related to morbid: No Weight Status: Overweight Fluid Accumulation (N/A): N/A JUANITO PRETTY MD August 29, 2016 08:45
[2016-08-29 09:02] LABS: HCO3 ABG 23 mmol/L (21-28); PCO2 ABG 36 mmHg (35-46); PH ABG 7.43 (7.35-7.45); PO2 ABG 82 mmHg (75-108); SAT O2 ABG 96 % (92-99)
[2016-08-29] MEDS: CHLORHEXIDINE 0.12% 15 ML MOUTHWASH. SWSP SCH ×2 (09:35→20:36)
[2016-08-29] MEDS: FERROUS SULFATE ORAL 300 MG/5 ML SOLUTION. FT SCH (09:36)
[2016-08-29] MEDS: NYSTATIN TOPICAL POWDER 15GM BOTTLE. TP SCH ×2 (09:37→20:36)
--- NOTE | 2016-08-29 09:49 | RAD ---
Indication: Empyema. Time of exam 0625 hours. Correlation is made with prior study 1 day earlier. The support lines and catheters remain in place. Bilateral pleural drains remain in place. Bilateral effusions and infiltrates show no significant change. There is no pneumothorax. Impression: Stable chest since one day earlier.
[2016-08-29] MEDS ORDERED: ALTEPLASE 2MG VIAL 5 MG in IV STERILE WATER 50 ML INT CAT ONE (11:00)
--- NOTE | 2016-08-29 11:09 | PDOC ---
PULMONARY PROGRESS NOTES Subjective AC mode s/p bilateral chest tubes s/p intra pleural TPA left side 08/28 Vitals Vital Signs Date Time Temp Pulse Resp B/P (MAP) Pulse Ox O2 Delivery O2 Flow Rate FiO2 08/29/16 11:04 105 26 100/67 (78) 98 BiPAP/CPAP 08/29/16 08:03 98.8 98.8 Comments ros as mentioned as above other sys otherwise neg ROS: No Chest Pain, No Abdominal Pain General: Alert, No acute distress HEENT: Other (nc at perrl. poor dentition, nose clear) Lungs: Other (decrease bs) Cardiovascular: S1, S2, Other Abdomen: Soft, Non-tender, Other (no mass) Neuro Exam: Alert Extremities: Other (edema) Skin: Warm Labs Laboratory Tests Test 08/27/16 20:53 08/28/16 05:30 08/28/16 08:00 08/28/16 10:40 White Blood Count 14.0 x10^3/uL (4.0-11.0) 12.7 x10^3/uL (4.0-11.0) Red Blood Count 3.06 x10^6/uL (3.50-5.40) 2.93 x10^6/uL (3.50-5.40) Hemoglobin 9.1 g/dL (12.0-15.5) 8.6 g/dL (12.0-15.5) Hematocrit 26.6 % (36.0-47.0) 25.5 % (36.0-47.0) Mean Corpuscular Volume 87 fL (79-100) 87 fL (79-100) Mean Corpuscular Hemoglobin 30 pg (25-35) 29 pg (25-35) Mean Corpuscular Hemoglobin Concent 34 g/dL (31-37) 34 g/dL (31-37) Red Cell Distribution Width 16.6 % (11.5-14.5) 17.0 % (11.5-14.5) Platelet Count 317 x10^3/uL (140-400) 290 x10^3/uL (140-400) Sodium Level 135 mmol/L (136-145) 132 mmol/L (136-145) Potassium Level 4.0 mmol/L (3.5-5.1) 4.1 mmol/L (3.5-5.1) Chloride Level 102 mmol/L (98-107) 102 mmol/L (98-107) Carbon Dioxide Level 25 mmol/L (21-32) 26 mmol/L (21-32) Anion Gap 8 (6-14) 4 (6-14) Blood Urea Nitrogen 19 mg/dL (7-20) 19 mg/dL (7-20) Creatinine 0.6 mg/dL (0.6-1.0) 0.7 mg/dL (0.6-1.0) Estimated GFR (Cockcroft-Gault) 109.6 91.8 Glucose Level 109 mg/dL (70-99) 107 mg/dL (70-99) Calcium Level 7.9 mg/dL (8.5-10.1) 7.8 mg/dL (8.5-10.1) Neutrophils (%) (Auto) 79 % (31-73) Lymphocytes (%) (Auto) 10 % (24-48) Monocytes (%) (Auto) 8 % (0-9) Eosinophils (%) (Auto) 2 % (0-3) Basophils (%) (Auto) 1 % (0-3) Neutrophils # (Auto) 10.0 x10^3uL (1.8-7.7) Lymphocytes # (Auto) 1.3 x10^3/uL (1.0-4.8) Monocytes # (Auto) 1.1 x10^3/uL (0.0-1.1) Eosinophils # (Auto) 0.3 x10^3/uL (0.0-0.7) Basophils # (Auto) 0.1 x10^3/uL (0.0-0.2) Reticulocyte Count (auto) 2.0 % (0.5-2.5) Iron Level 24 ug/dL (50-170) Total Iron Binding Capacity 115 ug/dL (250-450) Iron Saturation 21 % (15-34) Ferritin 1247 ng/mL (8-252) Lactate Dehydrogenase 225 U/L (81-234) O2 Saturation 98 % (92-99) Arterial Blood pH 7.46 (7.35-7.45) Arterial Blood pCO2 at Patient Temp 34 mmHg (35-46) Arterial Blood pO2 at Patient Temp 110 mmHg (75-108) Arterial Blood HCO3 24 mmol/L (21-28) Arterial Blood Base Excess 0 mmol/L (-3-3) FiO2 35 Clostridium difficile Toxin (PCR) Negative (Negative) Test 08/29/16 05:45 08/29/16 08:00 White Blood Count 12.4 x10^3/uL (4.0-11.0) Red Blood Count 2.87 x10^6/uL (3.50-5.40) Hemoglobin 8.3 g/dL (12.0-15.5) Hematocrit 25.5 % (36.0-47.0) Mean Corpuscular Volume 89 fL (79-100) Mean Corpuscular Hemoglobin 29 pg (25-35) Mean Corpuscular Hemoglobin Concent 33 g/dL (31-37) Red Cell Distribution Width 16.5 % (11.5-14.5) Platelet Count 303 x10^3/uL (140-400) Neutrophils (%) (Auto) 77 % (31-73) Lymphocytes (%) (Auto) 13 % (24-48) Monocytes (%) (Auto) 8 % (0-9) Eosinophils (%) (Auto) 2 % (0-3) Basophils (%) (Auto) 0 % (0-3) Neutrophils # (Auto) 9.6 x10^3uL (1.8-7.7) Lymphocytes # (Auto) 1.6 x10^3/uL (1.0-4.8) Monocytes # (Auto) 1.0 x10^3/uL (0.0-1.1) Eosinophils # (Auto) 0.2 x10^3/uL (0.0-0.7) Basophils # (Auto) 0.0 x10^3/uL (0.0-0.2) Sodium Level 134 mmol/L (136-145) Potassium Level 3.6 mmol/L (3.5-5.1) Chloride Level 103 mmol/L (98-107) Carbon Dioxide Level 25 mmol/L (21-32) Anion Gap 6 (6-14) Blood Urea Nitrogen 18 mg/dL (7-20) Creatinine 0.6 mg/dL (0.6-1.0) Estimated GFR (Cockcroft-Gault) 109.6 Glucose Level 111 mg/dL (70-99) Calcium Level 8.0 mg/dL (8.5-10.1) O2 Saturation 96 % (92-99) Arterial Blood pH 7.43 (7.35-7.45) Arterial Blood pCO2 at Patient Temp 36 mmHg (35-46) Arterial Blood pO2 at Patient Temp 82 mmHg (75-108) Arterial Blood HCO3 23 mmol/L (21-28) Arterial Blood Base Excess -1 mmol/L (-3-3) Laboratory Tests Test 08/29/16 05:45 08/29/16 08:00 White Blood Count 12.4 x10^3/uL (4.0-11.0) Red Blood Count 2.87 x10^6/uL (3.50-5.40) Hemoglobin 8.3 g/dL (12.0-15.5) Hematocrit 25.5 % (36.0-47.0) Mean Corpuscular Volume 89 fL (79-100) Mean Corpuscular Hemoglobin 29 pg (25-35) Mean Corpuscular Hemoglobin Concent 33 g/dL (31-37) Red Cell Distribution Width 16.5 % (11.5-14.5) Platelet Count 303 x10^3/uL (140-400) Neutrophils (%) (Auto) 77 % (31-73) Lymphocytes (%) (Auto) 13 % (24-48) Monocytes (%) (Auto) 8 % (0-9) Eosinophils (%) (Auto) 2 % (0-3) Basophils (%) (Auto) 0 % (0-3) Neutrophils # (Auto) 9.6 x10^3uL (1.8-7.7) Lymphocytes # (Auto) 1.6 x10^3/uL (1.0-4.8) Monocytes # (Auto) 1.0 x10^3/uL (0.0-1.1) Eosinophils # (Auto) 0.2 x10^3/uL (0.0-0.7) Basophils # (Auto) 0.0 x10^3/uL (0.0-0.2) Sodium Level 134 mmol/L (136-145) Potassium Level 3.6 mmol/L (3.5-5.1) Chloride Level 103 mmol/L (98-107) Carbon Dioxide Level 25 mmol/L (21-32) Anion Gap 6 (6-14) Blood Urea Nitrogen 18 mg/dL (7-20) Creatinine 0.6 mg/dL (0.6-1.0) Estimated GFR (Cockcroft-Gault) 109.6 Glucose Level 111 mg/dL (70-99) Calcium Level 8.0 mg/dL (8.5-10.1) O2 Saturation 96 % (92-99) Arterial Blood pH 7.43 (7.35-7.45) Arterial Blood pCO2 at Patient Temp 36 mmHg (35-46) Arterial Blood pO2 at Patient Temp 82 mmHg (75-108) Arterial Blood HCO3 23 mmol/L (21-28) Arterial Blood Base Excess -1 mmol/L (-3-3) Medications Active Scripts Medications Dose Route/Sig Days Date Category No Known Medications Prior To Admisstion (Info) Each 1 Each 08/06/16 Reported Comments cxr reviewed, 08/29 improving effusions right, still pockets of effusion on LLL Impression . 1. Acute hypoxemic respiratory failure, multifactorial in etiology / increase secretions , repeat sputum with E-Coli 2. bilateral loculated effusions, suspected empyema, s/p bilateral chest tubes , VERY LOW GLUCOSE(9), LOW PH 3. Bilateral pulmonary nodules with cavitation, due to septic emboli. 4. Endocarditis. right sided, improving vegetations 5. ? chronic obstructive pulmonary disease. 6. Leukocytosis./fever, suspect due to empyema, bilateral 7. Anemia, ongoing 8. Thrombocytopenia. off lovenox 10. Intravenous drug abuse. 11. Tobacco habituation. 12. MSSA septicemia/pneumonia/ CHF 13. ct chest reviewed/ bilateral loculated effusion, suspect empyema, Plan . CPAP trials as tolerated/ will consider T-piece during day from today monitor chest tube output .right chest tube can come out in 24 hrs s/p intra pleural TPA left side 08/28, will repeat today Trach secretions for c/s, E-coli, on antibiotic per ID CXR improving on right more then left. ? may need left de-cortication antibiotics per ID, cont abx on cefepime now bronchodilators keep I<O off lovenox, continues to have low Hb and need for transfusion. pepcid for prophylaxis discussed w RN/RT CARLEY WORKMAN MD August 29, 2016 11:09
[2016-08-29] MEDS: oxyCODONE/APAP 5/325 1 TAB TABLET PO PRN ×2 (11:56→17:34)
--- NOTE | 2016-08-29 12:07 | OP ---
DATE OF SURGERY: Fibrinolytic through the left chest tube. INDICATIONS: Empyema. The patient agreed to proceed with the procedure. A 5 mg TPA mixed with 50 mL of sterile water was introduced into the left pleural space. The patient tolerated the procedure well. Chest tube will be clamped for 1 hour and then placed back to suction. We will follow chest x-ray. CARLEY WORKMAN MD DR: GIL/brian JOB#: [id number] / [id number]
--- NOTE | 2016-08-29 12:16 | PDOC ---
G I PROGRESS NOTE Subjective No apparent GI issues. Objective Still on PEG feedings and tolerating. Still with rectal tube; brown stool. Bilateral chest tubes. Physical Exam Lungs clear anteriorly. RRR Abdomen soft, not distended nor tender. Review of Relevant I have reviewed the following items shanta (where applicable) has been applied. Labs Laboratory Tests Test 08/27/16 20:53 08/28/16 05:30 08/28/16 08:00 08/28/16 10:40 White Blood Count 14.0 x10^3/uL (4.0-11.0) 12.7 x10^3/uL (4.0-11.0) Red Blood Count 3.06 x10^6/uL (3.50-5.40) 2.93 x10^6/uL (3.50-5.40) Hemoglobin 9.1 g/dL (12.0-15.5) 8.6 g/dL (12.0-15.5) Hematocrit 26.6 % (36.0-47.0) 25.5 % (36.0-47.0) Mean Corpuscular Volume 87 fL (79-100) 87 fL (79-100) Mean Corpuscular Hemoglobin 30 pg (25-35) 29 pg (25-35) Mean Corpuscular Hemoglobin Concent 34 g/dL (31-37) 34 g/dL (31-37) Red Cell Distribution Width 16.6 % (11.5-14.5) 17.0 % (11.5-14.5) Platelet Count 317 x10^3/uL (140-400) 290 x10^3/uL (140-400) Sodium Level 135 mmol/L (136-145) 132 mmol/L (136-145) Potassium Level 4.0 mmol/L (3.5-5.1) 4.1 mmol/L (3.5-5.1) Chloride Level 102 mmol/L (98-107) 102 mmol/L (98-107) Carbon Dioxide Level 25 mmol/L (21-32) 26 mmol/L (21-32) Anion Gap 8 (6-14) 4 (6-14) Blood Urea Nitrogen 19 mg/dL (7-20) 19 mg/dL (7-20) Creatinine 0.6 mg/dL (0.6-1.0) 0.7 mg/dL (0.6-1.0) Estimated GFR (Cockcroft-Gault) 109.6 91.8 Glucose Level 109 mg/dL (70-99) 107 mg/dL (70-99) Calcium Level 7.9 mg/dL (8.5-10.1) 7.8 mg/dL (8.5-10.1) Neutrophils (%) (Auto) 79 % (31-73) Lymphocytes (%) (Auto) 10 % (24-48) Monocytes (%) (Auto) 8 % (0-9) Eosinophils (%) (Auto) 2 % (0-3) Basophils (%) (Auto) 1 % (0-3) Neutrophils # (Auto) 10.0 x10^3uL (1.8-7.7) Lymphocytes # (Auto) 1.3 x10^3/uL (1.0-4.8) Monocytes # (Auto) 1.1 x10^3/uL (0.0-1.1) Eosinophils # (Auto) 0.3 x10^3/uL (0.0-0.7) Basophils # (Auto) 0.1 x10^3/uL (0.0-0.2) Reticulocyte Count (auto) 2.0 % (0.5-2.5) Iron Level 24 ug/dL (50-170) Total Iron Binding Capacity 115 ug/dL (250-450) Iron Saturation 21 % (15-34) Ferritin 1247 ng/mL (8-252) Lactate Dehydrogenase 225 U/L (81-234) O2 Saturation 98 % (92-99) Arterial Blood pH 7.46 (7.35-7.45) Arterial Blood pCO2 at Patient Temp 34 mmHg (35-46) Arterial Blood pO2 at Patient Temp 110 mmHg (75-108) Arterial Blood HCO3 24 mmol/L (21-28) Arterial Blood Base Excess 0 mmol/L (-3-3) FiO2 35 Clostridium difficile Toxin (PCR) Negative (Negative) Test 08/29/16 05:45 08/29/16 08:00 White Blood Count 12.4 x10^3/uL (4.0-11.0) Red Blood Count 2.87 x10^6/uL (3.50-5.40) Hemoglobin 8.3 g/dL (12.0-15.5) Hematocrit 25.5 % (36.0-47.0) Mean Corpuscular Volume 89 fL (79-100) Mean Corpuscular Hemoglobin 29 pg (25-35) Mean Corpuscular Hemoglobin Concent 33 g/dL (31-37) Red Cell Distribution Width 16.5 % (11.5-14.5) Platelet Count 303 x10^3/uL (140-400) Neutrophils (%) (Auto) 77 % (31-73) Lymphocytes (%) (Auto) 13 % (24-48) Monocytes (%) (Auto) 8 % (0-9) Eosinophils (%) (Auto) 2 % (0-3) Basophils (%) (Auto) 0 % (0-3) Neutrophils # (Auto) 9.6 x10^3uL (1.8-7.7) Lymphocytes # (Auto) 1.6 x10^3/uL (1.0-4.8) Monocytes # (Auto) 1.0 x10^3/uL (0.0-1.1) Eosinophils # (Auto) 0.2 x10^3/uL (0.0-0.7) Basophils # (Auto) 0.0 x10^3/uL (0.0-0.2) Sodium Level 134 mmol/L (136-145) Potassium Level 3.6 mmol/L (3.5-5.1) Chloride Level 103 mmol/L (98-107) Carbon Dioxide Level 25 mmol/L (21-32) Anion Gap 6 (6-14) Blood Urea Nitrogen 18 mg/dL (7-20) Creatinine 0.6 mg/dL (0.6-1.0) Estimated GFR (Cockcroft-Gault) 109.6 Glucose Level 111 mg/dL (70-99) Calcium Level 8.0 mg/dL (8.5-10.1) O2 Saturation 96 % (92-99) Arterial Blood pH 7.43 (7.35-7.45) Arterial Blood pCO2 at Patient Temp 36 mmHg (35-46) Arterial Blood pO2 at Patient Temp 82 mmHg (75-108) Arterial Blood HCO3 23 mmol/L (21-28) Arterial Blood Base Excess -1 mmol/L (-3-3) Laboratory Tests Test 08/29/16 05:45 08/29/16 08:00 White Blood Count 12.4 x10^3/uL (4.0-11.0) Red Blood Count 2.87 x10^6/uL (3.50-5.40) Hemoglobin 8.3 g/dL (12.0-15.5) Hematocrit 25.5 % (36.0-47.0) Mean Corpuscular Volume 89 fL (79-100) Mean Corpuscular Hemoglobin 29 pg (25-35) Mean Corpuscular Hemoglobin Concent 33 g/dL (31-37) Red Cell Distribution Width 16.5 % (11.5-14.5) Platelet Count 303 x10^3/uL (140-400) Neutrophils (%) (Auto) 77 % (31-73) Lymphocytes (%) (Auto) 13 % (24-48) Monocytes (%) (Auto) 8 % (0-9) Eosinophils (%) (Auto) 2 % (0-3) Basophils (%) (Auto) 0 % (0-3) Neutrophils # (Auto) 9.6 x10^3uL (1.8-7.7) Lymphocytes # (Auto) 1.6 x10^3/uL (1.0-4.8) Monocytes # (Auto) 1.0 x10^3/uL (0.0-1.1) Eosinophils # (Auto) 0.2 x10^3/uL (0.0-0.7) Basophils # (Auto) 0.0 x10^3/uL (0.0-0.2) Sodium Level 134 mmol/L (136-145) Potassium Level 3.6 mmol/L (3.5-5.1) Chloride Level 103 mmol/L (98-107) Carbon Dioxide Level 25 mmol/L (21-32) Anion Gap 6 (6-14) Blood Urea Nitrogen 18 mg/dL (7-20) Creatinine 0.6 mg/dL (0.6-1.0) Estimated GFR (Cockcroft-Gault) 109.6 Glucose Level 111 mg/dL (70-99) Calcium Level 8.0 mg/dL (8.5-10.1) O2 Saturation 96 % (92-99) Arterial Blood pH 7.43 (7.35-7.45) Arterial Blood pCO2 at Patient Temp 36 mmHg (35-46) Arterial Blood pO2 at Patient Temp 82 mmHg (75-108) Arterial Blood HCO3 23 mmol/L (21-28) Arterial Blood Base Excess -1 mmol/L (-3-3) Microbiology 08/12/16 Blood Fungal Culture - Preliminary, Resulted 08/12/16 Fungal Culture Result 1 - Preliminary, Resulted 08/26/16 Gram Stain - Final, Complete 08/22/16 Gram Stain - Final, Complete Recurrent anemia needing occsional transfusions. Iron studies c/w "ACD". Medications Current Medications Amino Acids/ Glycerin/ Electrolytes 1,000 ml @ 100 mls/hr Q10H IV Last administered on 08/05/16 02:40; Start 08/02/16 at 03:00; Stop 08/05/16 at 08:50 ; Status DC Morphine Sulfate 2 mg PRN Q2HR PRN IV SEVERE PAIN Last administered on 11:59; Start 08/02/16 at 02:30; Stop 08/02/16 at 13:28; Status DC Daptomycin 220 mg/ Sodium Chloride 50 ml @ 100 mls/hr Q24H IV ; Start 08/02/16 at 09:15; Stop 08/02/16 at 15:58; Status DC Cefepime HCl 1 gm/ Sodium Chloride 50 ml @ 100 mls/hr Q12HR IV Last administered on 08/04/16 08:10; Start 08/02/16 at 10:00; Stop 08/04/16 at 10:33 ; Status DC Daptomycin 220 mg/ Sodium Chloride 50 ml @ 100 mls/hr ONCE ONCE IV ; Start at 10:00; Stop 08/02/16 at 10:29; Status Cancel Potassium Chloride (Klor-Con) 40 meq 1X ONCE PO Last administered on 10:17; Start 08/02/16 at 09:45; Stop 08/02/16 at 09:46; Status DC Daptomycin 220 mg/ Sodium Chloride 50 ml @ 100 mls/hr Q24H IV Last administered on 08/03/16 09:43; Start 08/02/16 at 10:15; Stop 08/03/16 at 10:29 ; Status DC Potassium Chloride (Klor-Con) 40 meq 1X ONCE PO Last administered on 12:57; Start 08/02/16 at 12:30; Stop 08/02/16 at 12:36; Status DC Morphine Sulfate 5 mg PRN Q2HRS PRN IV MODERATE TO SEVERE PAIN Last administered on 08/26/16 16:15; Start 08/02/16 at 13:30; Stop 08/26/16 at 17:31; Status DC Morphine Sulfate 8 mg PRN Q2HRS PRN IV MODERATE TO SEVERE PAIN Last administered on 08/04/16 14:58; Start 08/02/16 at 13:30; Stop 08/26/16 at 17:31 ; Status DC Acetaminophen (Tylenol) 650 mg PRN Q6HRS PRN PO TEMP GREATER THAN 100.4 Last administered on 08/26/16 00:24; Start 08/02/16 at 14:45; Stop 08/26/16 at 17:31; Status DC Lactated Ringer's 1,000 ml @ 50 mls/hr Q20H IV ; Start 08/05/16 at 07:00; Stop 08/05/16 at 18:13; Status DC Daptomycin 220 mg/ Sodium Chloride 50 ml @ 100 mls/hr Q24H IV ; Start 08/03/16 at 11:00; Status Cancel Potassium Chloride (Klor-Con) 40 meq 1X ONCE PO Last administered on 17:41; Start 08/02/16 at 17:15; Stop 08/02/16 at 17:18; Status DC Potassium Chloride (Klor-Con) 40 meq BIDWMEALS PO ; Start 08/03/16 at 08:00; Stop 08/03/16 at 11:08; Status DC Morphine Sulfate 5 mg 1X ONCE IV Last administered on 08/02/16 21:45; Start 08/02/16 at 21:30; Stop 08/02/16 at 21:33; Status DC Lorazepam (Ativan) 1 mg 1X ONCE IV Last administered on 08/02/16 21:30; Start 08/02/16 at 21:30; Stop 08/02/16 at 21:33; Status DC Acetaminophen (Acetaminophen Supp) 650 mg PRN Q6HRS PRN PA MILD PAIN / TEMP Last administered on 08/13/16 03:13; Start 08/03/16 at 01:15; Stop 08/26/16 at 17:31; Status DC Albuterol/ Ipratropium (Duoneb) 3 ml RTQID NEB Last administered on 08/29/16 11:58; Start 08/03/16 at 08:00 Budesonide (Pulmicort) 0.5 mg RTBID NEB Last administered on 08/29/16 07:41; Start 08/03/16 at 08:00 Pantoprazole Sodium (Protonix Vial) 40 mg 1X ONCE IVP Last administered on 10:06; Start 08/03/16 at 08:00; Stop 08/03/16 at 08:01; Status DC Daptomycin 320 mg/ Sodium Chloride 50 ml @ 100 mls/hr Q24H IV Last administered on 08/04/16 10:03; Start 08/04/16 at 10:00; Stop 08/04/16 at 10:33 ; Status DC Lorazepam (Ativan) 0.5 mg PRN Q6HRS PRN IV ANXIETY / AGITATION Last administered on 08/04/16 09:12; Start 08/03/16 at 11:15; Stop 08/07/16 at 11:02 ; Status DC Lorazepam (Ativan) 0.5 mg 1X ONCE IV Last administered on 08/04/16 10:00; Start 08/04/16 at 10:00; Stop 08/04/16 at 10:01; Status DC Morphine Sulfate 5 mg 1X ONCE IV Last administered on 08/04/16 10:00; Start 08/04/16 at 10:00; Stop 08/04/16 at 10:01; Status DC Lorazepam (Ativan) 0.5 mg PRN Q4HRS PRN IV ANXIETY / AGITATION Last administered on 08/25/16 02:29; Start 08/04/16 at 10:00; Stop 08/26/16 at 17:31; Status DC Nafcillin Sodium 2 gm/Sodium Chloride 100 ml @ 200 mls/hr Q4HRS IV Last administered on 08/09/16 10:10; Start 08/04/16 at 12:00; Stop 08/09/16 at 11:49 ; Status DC Propofol 100 ml @ As Directed STK-MED ONCE IV ; Start 08/04/16 at 16:10; Stop 08/04/16 at 16:11; Status DC Succinylcholine Chloride (Anectine) 200 mg STK-MED ONCE .ROUTE ; Start 08/04/16 at 16:14; Stop 08/04/16 at 16:15; Status DC Succinylcholine Chloride (Anectine) 200 mg 1X ONCE IV ; Start 08/04/16 at 16:45 ; Stop 08/04/16 at 16:46; Status DC Propofol 100 ml @ 0 mls/hr CONT PRN IV SEE I/O RECORD Last administered on 08/17 10:18; Start 08/04/16 at 16:45; Stop 08/26/16 at 17:31; Status DC Lorazepam (Ativan) 0.5 mg 1X ONCE IV Last administered on 08/04/16 16:45; Start 08/04/16 at 16:45; Stop 08/04/16 at 16:46; Status DC Morphine Sulfate 5 mg 1X ONCE IV Last administered on 08/04/16 16:44; Start 08/04/16 at 16:45; Stop 08/04/16 at 16:46; Status DC Fentanyl Citrate 30 ml @ 0 mls/hr CONT PRN IV PROTOCOL Last administered on 07:32; Start 08/04/16 at 16:45 Chlorhexidine Gluconate (Peridex) 15 ml BID MM Last administered on 08/17/16 10:18; Start 08/04/16 at 21:00; Stop 08/17/16 at 19:36; Status DC Famotidine (Pepcid) 20 mg BID IVP Last administered on 08/26/16 08:43; Start at 17:00; Stop 08/26/16 at 17:31; Status DC Sodium Chloride 1,000 ml @ 100 mls/hr Q10H IV Last administered on 08/07/16 04:35; Start 08/05/16 at 09:00; Stop 08/07/16 at 08:59; Status DC Succinylcholine Chloride (Anectine) 200 mg STK-MED ONCE .ROUTE ; Start 08/04/16 at 16:00; Stop 08/05/16 at 12:32; Status DC Lorazepam (Ativan) 2 mg 1X ONCE IV Last administered on 08/05/16 20:43; Start 08/05/16 at 21:00; Stop 08/05/16 at 21:01; Status DC Furosemide (Lasix) 40 mg 1X PRN PRN IV blood transfusion Last administered on 14:17; Start 08/06/16 at 08:00; Stop 08/07/16 at 07:59; Status DC Sodium Bicarbonate 50 meq 1X ONCE IV Last administered on 08/06/16 14:06; Start 08/06/16 at 12:00; Stop 08/06/16 at 12:01; Status DC Calcium Chloride 1,000 mg STK-MED ONCE IV ; Start 08/04/16 at 12:00; Stop at 15:13; Status DC Epinephrine HCl (Epinephrine Syringe) 2 mg STK-MED ONCE .ROUTE ; Start 08/04/16 at 12:00; Stop 08/06/16 at 15:13; Status DC Sodium Bicarbonate 100 meq STK-MED ONCE .ROUTE ; Start 08/04/16 at 12:00; Stop 08/06/16 at 15:13; Status DC Amino Acids/ Glycerin/ Electrolytes 1,000 ml @ 100 mls/hr Q10H IV Last administered on 08/08/16 12:33; Start 08/07/16 at 10:00; Stop 08/09/16 at 09:42 ; Status DC Enoxaparin Sodium (Lovenox 40mg Syringe) 40 mg Q24H SQ Last administered on 13:10; Start 08/07/16 at 13:00; Stop 08/10/16 at 10:43; Status DC Vecuronium [place] (Norcuron Bolus) 10 mg STK-MED ONCE IV ; Start 08/07/16 at 13 :56; Stop 08/07/16 at 13:57; Status DC Vecuronium [place] (Norcuron Bolus) 6 mg 1X ONCE IV Last administered on 14:06; Start 08/07/16 at 14:00; Stop 08/07/16 at 14:05; Status DC Sodium Bicarbonate 50 meq 1X ONCE IV Last administered on 08/08/16 11:46; Start 08/08/16 at 11:45; Stop 08/08/16 at 11:46; Status DC Nystatin (Nystop) 1 james BID TP Last administered on 08/29/16 09:37; Start at 21:00 Linezolid 300 ml @ 300 mls/hr Q12HR IV Last administered on 08/14/16 20:51; Start 08/09/16 at 09:00; Stop 08/15/16 at 07:21; Status DC Sodium Chloride 1,000 ml @ 20 mls/hr Q24H IV Last administered on 08/26/16 06: 41; Start 08/09/16 at 09:45; Stop 08/27/16 at 13:51; Status DC Sodium Bicarbonate 150 meq/Dextrose 1,150 ml @ 100 mls/hr 1X ONCE IV Last administered on 08/09/16 12:25; Start 08/09/16 at 11:30; Stop 08/09/16 at 22:59 ; Status DC Piperacillin Sod/ Tazobactam Sod (Zosyn Per Pharmacy) 1 each PRN DAILY PRN MC SEE COMMENTS; Start 08/09/16 at 12:00; Stop 08/14/16 at 07:40; Status DC Piperacillin Sod/ Tazobactam Sod 4.5 gm/Sodium Chloride 100 ml @ 200 mls/hr Q6HRS IV Last administered on 08/14/16 05:58; Start 08/09/16 at 12:30; Stop at 07:33; Status DC Vecuronium [place] (Norcuron Bolus) 5 mg PRN Q4HRS PRN IV INCREASED RESPIRATORY ,NOT RELI Last administered on 08/11/16 02:56; Start 08/09/16 at 13:30; Stop at 17:31; Status DC Potassium Chloride 50 ml @ 100 mls/hr Q1H IV ; Start 08/10/16 at 09:30; Stop at 10:59; Status Cancel Potassium Chloride 100 ml @ 100 mls/hr Q1H IV Last administered on 08/10/16 16:28; Start 08/10/16 at 10:30; Stop 08/10/16 at 14:29; Status DC Potassium Chloride (KCl Oral Soln) 60 meq 1X ONCE PEG Last administered on 11:16; Start 08/10/16 at 11:00; Stop 08/10/16 at 11:01; Status DC Sodium Bicarbonate 150 meq/Dextrose 1,150 ml @ 100 mls/hr [id number] IV Last administered on 08/10/16 11:14; Start 08/10/16 at 11:00; Stop 08/10/16 at 22:29 ; Status DC Enoxaparin Sodium (Lovenox 40mg Syringe) 40 mg Q24H SQ ; Start 08/10/16 at 13:00 ; Stop 08/10/16 at 13:00; Status DC Micafungin Sodium 100 mg/Dextrose 100 ml @ 100 mls/hr Q24H IV Last administered on 08/13/16 16:26; Start 08/11/16 at 16:00; Stop 08/14/16 at 07:33 ; Status DC Furosemide (Lasix) 40 mg 1X ONCE IVP Last administered on 08/12/16 08:38; Start 08/12/16 at 08:00; Stop 08/12/16 at 08:06; Status DC Morphine Sulfate 1 mg PRN Q10MIN PRN IV SEVERE PAIN; Start 08/13/16 at 07:00; Stop 08/14/16 at 06:59; Status DC Lactated Ringer's 1,000 ml @ 0 mls/hr Q0M IV ; Start 08/13/16 at 07:00; Stop at 18:59; Status DC Lidocaine HCl 2 ml PRN 1X PRN ID PRIOR TO IV START; Start 08/13/16 at 07:00; Stop 08/14/16 at 06:59; Status DC Hydromorphone HCl (Dilaudid) 0.5 mg PRN Q10MIN PRN IV SEV PAIN, Second choice; Start 08/13/16 at 07:00; Stop 08/14/16 at 06:59; Status DC Prochlorperazine Edisylate (Compazine) 5 mg PACU PRN PRN IV NAUSEA, MRX1; Start 08/13/16 at 07:00; Stop 08/14/16 at 06:59; Status DC Morphine Sulfate 1 mg PRN Q10MIN PRN IV SEVERE PAIN; Start 08/13/16 at 07:00; Stop 08/14/16 at 06:59; Status DC Lactated Ringer's 1,000 ml @ 0 mls/hr Q0M IV ; Start 08/13/16 at 07:00; Stop at 18:59; Status DC Lidocaine HCl 2 ml PRN 1X PRN ID PRIOR TO IV START; Start 08/13/16 at 07:00; Stop 08/14/16 at 06:59; Status DC Hydromorphone HCl (Dilaudid) 0.5 mg PRN Q10MIN PRN IV SEV PAIN, Second choice; Start 08/13/16 at 07:00; Stop 08/14/16 at 06:59; Status DC Prochlorperazine Edisylate (Compazine) 5 mg PACU PRN PRN IV NAUSEA, MRX1; Start 08/13/16 at 07:00; Stop 08/14/16 at 06:59; Status DC Potassium Chloride 50 ml @ 50 mls/hr Q1H IV Last administered on 08/13/16 07: 57; Start 08/13/16 at 07:00; Stop 08/13/16 at 08:59; Status DC Rocuronium [place] (Zemuron) 50 mg STK-MED ONCE .ROUTE ; Start 08/13/16 at 12:50 ; Stop 08/13/16 at 12:51; Status DC Propofol 20 ml @ As Directed STK-MED ONCE IV ; Start 08/13/16 at 12:53; Stop at 12:54; Status DC Sevoflurane (Ultane) 30 ml STK-MED ONCE IH ; Start 08/13/16 at 14:04; Stop 08/13 at 14:05; Status DC Albumin Human 250 ml @ 100 mls/hr 1X ONCE IV Last administered on 08/13/16 23:38; Start 08/13/16 at 18:00; Stop 08/13/16 at 20:29; Status DC Albumin Human 500 ml @ 100 mls/hr 1X ONCE IV Last administered on 08/13/16 18:15; Start 08/13/16 at 18:00; Stop 08/13/16 at 22:59; Status DC Potassium Chloride 50 ml @ 50 mls/hr Q1H IV Last administered on 08/14/16 10: 46; Start 08/14/16 at 08:00; Stop 08/14/16 at 09:59; Status DC Nafcillin Sodium 2 gm/Sodium Chloride 100 ml @ 200 mls/hr Q4HRS IV Last administered on 08/23/16 08:51; Start 08/14/16 at 08:00; Stop 08/23/16 at 10:44; Status DC Enoxaparin Sodium (Lovenox 40mg Syringe) 40 mg Q24H SQ Last administered on 08/25 12:44; Start 08/14/16 at 12:00; Stop 08/26/16 at 11:53; Status DC Potassium Chloride (KCl Oral Soln) 40 meq 1X ONCE PEG Last administered on 07:54; Start 08/16/16 at 07:00; Stop 08/16/16 at 07:01; Status DC Potassium Chloride (KCl Oral Soln) 40 meq 1X ONCE PEG Last administered on 14:01; Start 08/16/16 at 12:00; Stop 08/16/16 at 12:01; Status DC Magnesium Sulfate/ Dextrose 50 ml @ 25 mls/hr 1X ONCE IV Last administered on 08/16/16 17:14; Start 08/16/16 at 16:30; Stop 08/16/16 at 18:29; Status DC Potassium Chloride (Klor-Con) 40 meq 1X ONCE PO ; Start 08/17/16 at 13:30; Stop 08/17/16 at 13:31; Status Cancel Potassium Chloride (KCl Oral Soln) 40 meq 1X ONCE PO Last administered on 08/17 15:34; Start 08/17/16 at 13:30; Stop 08/17/16 at 14:27; Status DC Potassium Chloride 100 ml @ 100 mls/hr PRN Q1HR PRN IV HYPOKALEMIA PER ICU PROTOCOL; Start 08/17/16 at 13:30; Status Cancel Potassium Chloride 50 ml @ 25 mls/hr PRN Q2HR PRN IV HYPOKALEMIA PER ICU PROTOCOL Last administered on 08/21/16 13:29; Start 08/17/16 at 13:30; Stop 08/21 at 13:34; Status DC Potassium Chloride (Klor-Con) 40 meq PRN Q2HR PRN PO HYPOKALEMIA PER ICU PROTOCOL; Start 08/17/16 at 13:30 Potassium Chloride 100 ml @ 100 mls/hr PRN Q1HR PRN IV HYPOKALEMIA PER ICU PROTOCOL; Start 08/17/16 at 13:30 Potassium Chloride 50 ml @ 25 mls/hr PRN Q2HR PRN IV HYPOKALEMIA PER ICU PROTOCOL; Start 08/17/16 at 13:30 Potassium Chloride (Klor-Con) 40 meq PRN Q2HR PRN PO HYPOKALEMIA PER ICU PROTOCOL; Start 08/17/16 at 13:30 Potassium Chloride 100 ml @ 100 mls/hr PRN Q1HR PRN IV HYPOKALEMIA PER ICU PROTOCOL; Start 08/17/16 at 13:30; Status Cancel Potassium Chloride 50 ml @ 25 mls/hr PRN Q2HR PRN IV HYPOKALEMIA PER ICU PROTOCOL Last administered on 08/27/16 14:37; Start 08/17/16 at 14:00 Magnesium Sulfate/ Dextrose 100 ml @ 50 mls/hr PRN DAILY PRN IV HYPOMAGNESIA PER ICU PROTOCOL Last administered on 08/20/16 22:26; Start 08/18/16 at 09:00 Potassium Phos/ Sodium Phos (Phos-Nak) 1 pkt BID PO ; Start 08/17/16 at 21:00; Stop 08/18/16 at 09:01; Status DC Sodium Phosphate 40 mmol/Dextrose 263.3333 ml @ 62.5 mls/hr PRN 1X PRN IV HYPOPHOSP PER ICU PROTOCOL; Start 08/17/16 at 13:30 Potassium Chloride (KCl Oral Soln) 40 meq 1X ONCE PEG Last administered on 08/19 07:57; Start 08/19/16 at 07:45; Stop 08/19/16 at 07:46; Status DC Potassium Chloride (KCl Oral Soln) 40 meq 1X ONCE PEG Last administered on 08/19 11:36; Start 08/19/16 at 12:00; Stop 08/19/16 at 12:01; Status DC Alprazolam (Xanax) 0.5 mg 1X ONCE PO Last administered on 08/19/16 11:35; Start 08/19/16 at 11:15; Stop 08/19/16 at 11:16; Status DC Alprazolam (Xanax) 0.5 mg TID PEG Last administered on 08/23/16 20:34; Start at 15:00; Stop 08/24/16 at 08:11; Status DC Potassium Chloride 50 ml @ 50 mls/hr Q1H IV Last administered on 08/22/16 09:40 ; Start 08/22/16 at 08:30; Stop 08/22/16 at 10:29; Status DC Haloperidol Lactate (Haldol) 5 mg PRN Q6HRS PRN IVP AGITATION Last administered on 08/29/16 00:23; Start 08/22/16 at 09:15 Haloperidol Lactate (Haldol) 2 mg 1X ONCE IVP ; Start 08/22/16 at 09:15; Stop at 09:27; Status DC Magnesium Sulfate/ Dextrose 100 ml @ 50 mls/hr DAILY IV Last administered on 10:00; Start 08/23/16 at 09:00; Stop 08/26/16 at 08:59; Status DC Albumin Human 100 ml @ 100 mls/hr [id number] IV Last administered on 08/23/16 17:25 ; Start 08/23/16 at 09:00; Stop 08/23/16 at 16:59; Status DC Furosemide (Lasix) 40 mg [id number] IVP Last administered on 08/23/16 17:26; Start 08/23/16 at 09:00; Stop 08/23/16 at 16:01; Status DC Vitamin A/Vitamin D (Vitamin A & D Ointment) 1 james PRN Q1HR PRN TP SKIN PROTECTION; Start 08/23/16 at 08:45 Cefepime HCl 1 gm/ Sodium Chloride 50 ml @ 100 mls/hr Q8HRS IV Last administered on 08/29/16 05:42; Start 08/23/16 at 14:00 Ondansetron HCl (Zofran) 4 mg PRN Q6HRS PRN IV NAUSEA/VOMITING Last administered on 08/23/16 19:27; Start 08/23/16 at 19:15 Alprazolam (Xanax) 0.25 mg TID PEG ; Start 08/24/16 at 09:00; Stop 08/24/16 at 09: 28; Status DC Diphenhydramine HCl (Benadryl) 25 mg HS PO ; Start 08/24/16 at 21:00; Stop at 21:00; Status DC Zolpidem Tartrate (Ambien) 5 mg PRN QHS PRN PO INSOMNIA Last administered on 20:51; Start 08/24/16 at 08:15 Alprazolam (Xanax) 0.5 mg TID PEG Last administered on 08/29/16 08:12; Start 08/24/16 at 09:00 Diphenhydramine HCl (Benadryl) 25 mg PRN QHS PRN PO sleep; Start 08/24/16 at 21: 00 Quetiapine Fumarate (SEROquel) 50 mg HS PO Last administered on 08/28/16 20:51 ; Start 08/24/16 at 21:00 Potassium Chloride 50 ml @ 50 mls/hr Q1H IV Last administered on 08/25/16 09:45 ; Start 08/25/16 at 08:00; Stop 08/25/16 at 09:59; Status DC Iohexol (Omnipaque 300 Mg/ml) 75 ml 1X ONCE IV Last administered on 08/25/16 15:45; Start 08/25/16 at 15:45; Stop 08/25/16 at 15:46; Status DC Iohexol (Omnipaque 240 Mg/ml) 50 ml 1X ONCE PO Last administered on 08/25/16 15:45; Start 08/25/16 at 15:45; Stop 08/25/16 at 15:46; Status DC Info (Do NOT chart on this entry -- for MONITORING) 1 each PRN DAILY PRN MC SEE COMMENTS; Start 08/25/16 at 16:00; Stop 08/27/16 at 15:59; Status DC Chlorhexidine Gluconate (Peridex) 15 ml BID SWSP Last administered on 09:35; Start 08/26/16 at 09:00 Potassium Chloride 50 ml @ 50 mls/hr Q1H IV ; Start 08/26/16 at 11:30; Stop at 11:30; Status DC Acetaminophen (Tylenol) 650 mg PRN Q6HRS PRN PEG MILD PAIN / TEMP Last administered on 08/26/16 11:56; Start 08/26/16 at 12:00 Lidocaine/Sodium Bicarbonate (Buffered Lidocaine 1%) 20 ml STK-MED ONCE IJ ; Start 08/26/16 at 14:50; Stop 08/26/16 at 14:51; Status DC Lidocaine/Sodium Bicarbonate (Buffered Lidocaine 1%) 20 ml 1X ONCE IJ Last administered on 08/26/16 15:42; Start 08/26/16 at 15:45; Stop 08/26/16 at 15:46; Status DC Lansoprazole (Prevacid) 30 mg BIDBFRMEAL FT Last administered on 08/29/16 07: 35; Start 08/27/16 at 17:30 Potassium Chloride 50 ml @ 50 mls/hr Q1H IV Last administered on 08/27/16 13:23 ; Start 08/27/16 at 13:00; Stop 08/27/16 at 14:59; Status DC Alteplase, Recombinant 5 mg/ Sterile Water 50 ml @ 0 mls/hr 1X ONCE INT CAT Last administered on 08/28/16 15:03; Start 08/28/16 at 10:45; Stop 08/28/16 at 10:46; Status DC Ferrous Sulfate 300 mg DAILY FT Last administered on 08/29/16 09:36; Start 03/07 at 09:00 Alteplase, Recombinant 5 mg/ Sterile Water 50 ml @ 0 mls/hr 1X ONCE INT CAT Last administered on 08/29/16 11:00; Start 08/29/16 at 11:00; Stop 08/29/16 at 11:01; Status DC Oxycodone/ Acetaminophen (Percocet 5/325) 1 tab PRN BID PRN PO PAIN Last administered on 08/29/16 11:56; Start 08/29/16 at 11:45 Active Scripts Active Reported No Known Medications Prior To Admisstion (Info) Each 1 Each Vitals/I & O Vital Sign - Last 24 Hours 08/28/16 08/28/16 08/28/16 08/28/16 13:00 13:00 14:00 15:00 Pulse 104 106 116 Resp 25 33 28 B/P (MAP) 104/57 (73) 116/69 (85) 110/92 (98) Pulse Ox 100 100 100 100 O2 Delivery Ventilator Ventilator Ventilator Ventilator 08/28/16 08/28/16 08/28/16 08/28/16 16:00 16:00 16:14 16:52 Temp 98.9 98.9 Pulse 111 Resp 31 37 B/P (MAP) 112/71 (85) Pulse Ox 100 99 99 O2 Delivery Mechanical Ventilator Ventilator Ventilator Ventilator 08/28/16 08/28/16 08/28/16 08/28/16 17:00 17:22 17:37 18:00 Pulse 114 111 Resp 33 24 33 B/P (MAP) 110/60 (77) 113/61 (78) Pulse Ox 100 100 100 98 O2 Delivery Ventilator Ventilator Ventilator Ventilator 08/28/16 08/28/16 08/28/16 08/28/16 19:00 19:42 20:00 20:38 Temp 99.4 99.4 Pulse 107 106 Resp 23 28 B/P (MAP) 104/64 (77) 105/60 (75) Pulse Ox 98 100 99 O2 Delivery Ventilator Mechanical Ventilator Ventilator Ventilator 08/28/16 08/28/16 08/28/16 08/28/16 21:00 22:00 23:00 23:15 Pulse 108 115 106 Resp 30 28 22 B/P (MAP) 104/67 (79) 94/51 (65) 95/53 (67) Pulse Ox 100 99 99 100 O2 Delivery Ventilator Ventilator Ventilator Ventilator 08/29/16 08/29/16 08/29/16 08/29/16 00:00 00:00 00:42 01:00 Temp 99.1 99.1 Pulse 104 98 Resp 22 22 B/P (MAP) 90/54 (66) 94/51 (65) Pulse Ox 99 99 99 O2 Delivery Ventilator Mechanical Ventilator Ventilator Ventilator 08/29/16 08/29/16 08/29/16 08/29/16 02:00 03:00 03:05 03:51 Pulse 97 99 Resp 22 B/P (MAP) 87/58 (68) 95/54 (68) Pulse Ox 99 99 98 O2 Delivery Ventilator Ventilator Ventilator Mechanical Ventilator 08/29/16 08/29/16 08/29/16 08/29/16 04:00 05:00 05:15 06:00 Temp 99.1 99.1 Pulse 97 99 98 Resp 22 22 22 B/P (MAP) 96/54 (68) 90/55 (67) 90/52 (65) Pulse Ox 99 99 99 99 O2 Delivery Ventilator Ventilator Ventilator Ventilator 08/29/16 08/29/16 08/29/16 08/29/16 07:15 07:32 07:36 07:54 Pulse 96 Resp 22 22 B/P (MAP) 99/62 (74) Pulse Ox 100 100 O2 Delivery Ventilator Ventilator Ventilator Mechanical Ventilator 08/29/16 08/29/16 08/29/16 08/29/16 08:03 08:56 09:26 10:10 Temp 98.8 98.8 Pulse 100 106 102 Resp 22 20 22 B/P (MAP) 104/66 (79) 101/59 (73) 101/64 (76) Pulse Ox 100 98 100 98 O2 Delivery BiPAP/CPAP BiPAP/CPAP Ventilator BiPAP/CPAP 08/29/16 08/29/16 08/29/16 08/29/16 11:04 11:23 11:56 11:59 Pulse 105 Resp 22 B/P (MAP) 100/67 (78) Pulse Ox 98 97 O2 Delivery BiPAP/CPAP Mechanical Ventilator Ventilator T-Tube 08/29/16 12:01 Pulse 103 Resp 26 B/P (MAP) 105/61 (76) Pulse Ox 96 O2 Delivery T-Tube Intake and Output 08/28/16 08/28/16 08/29/16 15:00 23:00 07:00 Intake Total 290 ml 232.02 ml 642 ml Output Total 1355 ml 970 ml 490 ml Balance -1065 ml -737.98 ml 152 ml Assessment Stable post-PEG Anemia likely multifactorial, but not from any apparent acute GI loss. Plan of Care: Continue current Tx, RICHAR Kelly MD August 29, 2016 12:16
[2016-08-29 13:11] LABS: FOLATE 4.04 ng/ml (3.2-20.0)
[2016-08-29] MEDS: ZOLPIDEM 5 MG TABLET. PO PRN (20:36)
[2016-08-29] MEDS: QUEtiapine 25 MG TABLET. PO SCH (20:36)
[2016-08-30] VITALS (24 sets, daily range): BP systolic 100–131; BP diastolic 56–83
[2016-08-30] MEDS: HALOPERIDOL LACTATE 5 MG/ML VIAL. IVP PRN (00:38)
[2016-08-30] MEDS: CEFEPIME HCL 1 GM in IV NORMAL SALINE 50ML 50 ML IV SCH ×3 (05:39→21:34)
[2016-08-30 06:08] LABS: BASO % 0 % (0-3); EOS % 2 % (0-3); HEMATOCRIT 27.2 % (36.0-47.0); HEMOGLOBIN 9.2 g/dL (12.0-15.5); LYMPH # 1.4 x10^3/uL (1.0-4.8); LYMPH % 12 % (24-48); MEAN CORPUSCULAR HEMOGLOBIN 30 pg (25-35); MEAN CORPUSCULAR HGB CONC 34 g/dL (31-37); MEAN CORPUSCULAR VOLUME 88 fL (79-100); MONO % 9 % (0-9); NEUT % 77 % (31-73); PLATELET COUNT 302 x10^3/uL (140-400); RED BLOOD COUNT 3.08 x10^6/uL (3.50-5.40); WHITE BLOOD COUNT 12.2 x10^3/uL (4.0-11.0)
[2016-08-30 06:32] LABS: ALBUMIN 1.3 g/dL (3.4-5.0); ALBUMIN/GLOBULIN RATIO 0.2 (1.0-1.7); CREATININE 0.6 mg/dL (0.6-1.0); GFR 109.6; POTASSIUM 3.7 mmol/L (3.5-5.1); TOTAL BILIRUBIN 0.6 mg/dL (0.2-1.0); TOTAL PROTEIN 6.7 g/dL (6.4-8.2)
[2016-08-30] MEDS: IPRATRPIUM/ALBUTEROL 0.5/2.5MG 3 ML NEBU. NEB SCH ×4 (07:21→19:37)
[2016-08-30] MEDS: BUDESONIDE 0.5 MG/2 ML NEBU. NEB SCH ×2 (07:21→19:37)
[2016-08-30 07:34] LABS: HCO3 ABG 22 mmol/L (21-28); PCO2 ABG 33 mmHg (35-46); PH ABG 7.45 (7.35-7.45); PO2 ABG 116 mmHg (75-108); SAT O2 ABG 98 % (92-99)
[2016-08-30 07:35] LABS: FIO2 ABG 35%
--- NOTE | 2016-08-30 08:00 | PDOC ---
Infectious Disease Note Subjective Subjective Doing ok ROS ROS Hard to completely understand with trach but seems well Vital Sign Vital Signs Vital Signs Date Time Temp Pulse Resp B/P (MAP) Pulse Ox O2 Delivery O2 Flow Rate FiO2 08/30/16 07:21 100 Ventilator 08/30/16 06:00 103 30 107/61 (76) 08/30/16 04:00 98.4 98.4 Physical Exam PHYSICAL EXAM GENERAL: Resting, NAD, appears comfortable. Alert. Looks well HENT: Oral cavity pink, dry, poor dentition, + decay NECK: Trach, + secretions LUNGS: CTA. Bilat chest tubes HEART: S1S2 ABD: Mildly distended, soft, BS present. + g-tube & rectal tube : [place] EXT: Generalized edema. No cyanosis SKIN: No rash LUE-PICC. clean Labs Lab Laboratory Tests Test 08/29/16 08:00 08/30/16 05:45 08/30/16 07:25 O2 Saturation 96 % (92-99) 98 % (92-99) Arterial Blood pH 7.43 (7.35-7.45) 7.45 (7.35-7.45) Arterial Blood pCO2 at Patient Temp 36 mmHg (35-46) 33 mmHg (35-46) Arterial Blood pO2 at Patient Temp 82 mmHg (75-108) 116 mmHg (75-108) Arterial Blood HCO3 23 mmol/L (21-28) 22 mmol/L (21-28) Arterial Blood Base Excess -1 mmol/L (-3-3) -1 mmol/L (-3-3) White Blood Count 12.2 x10^3/uL (4.0-11.0) Red Blood Count 3.08 x10^6/uL (3.50-5.40) Hemoglobin 9.2 g/dL (12.0-15.5) Hematocrit 27.2 % (36.0-47.0) Mean Corpuscular Volume 88 fL (79-100) Mean Corpuscular Hemoglobin 30 pg (25-35) Mean Corpuscular Hemoglobin Concent 34 g/dL (31-37) Red Cell Distribution Width 17.0 % (11.5-14.5) Platelet Count 302 x10^3/uL (140-400) Neutrophils (%) (Auto) 77 % (31-73) Lymphocytes (%) (Auto) 12 % (24-48) Monocytes (%) (Auto) 9 % (0-9) Eosinophils (%) (Auto) 2 % (0-3) Basophils (%) (Auto) 0 % (0-3) Neutrophils # (Auto) 9.5 x10^3uL (1.8-7.7) Lymphocytes # (Auto) 1.4 x10^3/uL (1.0-4.8) Monocytes # (Auto) 1.1 x10^3/uL (0.0-1.1) Eosinophils # (Auto) 0.2 x10^3/uL (0.0-0.7) Basophils # (Auto) 0.0 x10^3/uL (0.0-0.2) Sodium Level 134 mmol/L (136-145) Potassium Level 3.7 mmol/L (3.5-5.1) Chloride Level 103 mmol/L (98-107) Carbon Dioxide Level 24 mmol/L (21-32) Anion Gap 7 (6-14) Blood Urea Nitrogen 21 mg/dL (7-20) Creatinine 0.6 mg/dL (0.6-1.0) Estimated GFR (Cockcroft-Gault) 109.6 BUN/Creatinine Ratio 35 (6-20) Glucose Level 109 mg/dL (70-99) Calcium Level 8.0 mg/dL (8.5-10.1) Total Bilirubin 0.6 mg/dL (0.2-1.0) Aspartate Amino Transf (AST/SGOT) 17 U/L (15-37) Alanine Aminotransferase (ALT/SGPT) 14 U/L (14-59) Alkaline Phosphatase 148 U/L (46-116) Total Protein 6.7 g/dL (6.4-8.2) Albumin 1.3 g/dL (3.4-5.0) Albumin/Globulin Ratio 0.2 (1.0-1.7) FiO2 35% Objective Assessment Loculated pleural effusions- S/p Bilat Chest tubes 08/26. Ecoli in sputum (08/22) Fever ? PRBCs better C-diff neg Leukocytosis - stable Acute anemia s/p PRBCs, 08/16, 08/20, 08/27 S/p Trach/PEG 08/13 MSSA sepsis 08/01 ([facility]) -Repeat BC positive, 08/05 & 08/07. Neg 08/09 Right-sided bacterial endocarditis. -TTE. 3.0 x 2.0cm mobile mass TV Multiple pulmonary nodules/septic emboli Acute Resp failure - Intubated ? developing ARDS. S/p Bronch 08/08. MSSA. Trach IV drug use. Hep C Ileus Renal insufficiency. Severe thrombocytopenia. improved Hepatosplenomegaly on CT Plan Plan of Care Trial of Flagyl to r/o anaerobes in loculation given stalling of WBC but may just be from loculation Await to see if decortication is necessay Nafcillin changed to cefepime to cover for Ecoli in sputum Patient will need a total of six weeks of IV abx to treat endocarditis/ bacteremia Monitor WBC, temp in am Supportive care KAYLYNN SHAY MD August 30, 2016 08:00
--- NOTE | 2016-08-30 08:03 | RAD ---
Exam performed: One view chest. History: Empyema, respiratory failure. Date of service: 08/30/16. Comparison: 08/29/16. Single AP semiupright portable view chest findings: Left cardiac silhouette and costophrenic angle is obscured by ongoing left basilar parenchymal opacities. Probable increasing airspace opacities in the left midlung. Continued airspace opacities in the right hemithorax with slight improvement. Pigtail catheters are seen projecting over both lung bases. Tracheostomy tube and left arm PICC line are in stable position. Impression: Slight interval improvement in right-sided parenchymal opacities with increasing airspace opacities in the left midlung. Overall not much change as compared to the previous study.
--- NOTE | 2016-08-30 08:32 | PDOC ---
PROGRESS NOTES Chief Complaint Chief Complaint Sepsis Acute hypoxic respir failure ASSESSMENT AND PLAN: 1. Sepsis: resolved 2. 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 MSSA. on cefepime (to cover E.coli as well) 3. PNA: septic emboli. sputum now with heavy growth E.coli. bilat effusions suspicious for empyemas. s/p bilat CT placement 08/26. continue to drain, maya L. management as per Pulm; d/w Dr Morel 4. Acute respir failure: trached, vent weaned to trach shield. obtain speech path 5. Diarrhea: massive, albeit improving per RN. RT in place. C.diff neg. prob due to TF - changed 6. Anemia: severe, recurrent: prob multifactorial, incl severe inflammation, HCV toxicity. inflammation confirmed by iron studies. b12/folate pending. start daily low dose Fe 7. Thrombocytopenia: 2/2 infection, now resolved. monitor 8. [place]: resolved 9. Hep C: new dx during current admit. F/U on O/P basis for rx 10. Polysubstance abuse: still on fentanyl drip. wean when CTs d/c.ed 11. Agitation: on seroquel, Xanax. Haldol PRN 12. Malnutrition: severe, POA, weight loss prior to admit, albumin critically low. suspect large component of inflammation as well. PEG feeds History of Present Illness History of Present Illness feels ok, ongoing diarrhea. wants to eat Vitals Vitals Vital Signs Date Time Temp Pulse Resp B/P (MAP) Pulse Ox O2 Delivery O2 Flow Rate FiO2 08/30/16 08:18 99 Tracheal Collar 8.0 08/30/16 06:00 103 30 107/61 (76) 08/30/16 04:00 98.4 98.4 Physical Exam General: Alert, Cooperative, No acute distress Heart: Normal S1, Normal S2, No murmurs Lungs: Other (distended, softer) Abdomen: Normal bowel sounds, Other (Hepatosplenomegaly present) Extremities: No cyanosis, Other (1+ edema) Skin: No breakdown, No significant lesion Labs LABS Laboratory Tests Test 08/30/16 05:45 08/30/16 07:25 White Blood Count 12.2 x10^3/uL (4.0-11.0) Red Blood Count 3.08 x10^6/uL (3.50-5.40) Hemoglobin 9.2 g/dL (12.0-15.5) Hematocrit 27.2 % (36.0-47.0) Mean Corpuscular Volume 88 fL (79-100) Mean Corpuscular Hemoglobin 30 pg (25-35) Mean Corpuscular Hemoglobin Concent 34 g/dL (31-37) Red Cell Distribution Width 17.0 % (11.5-14.5) Platelet Count 302 x10^3/uL (140-400) Neutrophils (%) (Auto) 77 % (31-73) Lymphocytes (%) (Auto) 12 % (24-48) Monocytes (%) (Auto) 9 % (0-9) Eosinophils (%) (Auto) 2 % (0-3) Basophils (%) (Auto) 0 % (0-3) Neutrophils # (Auto) 9.5 x10^3uL (1.8-7.7) Lymphocytes # (Auto) 1.4 x10^3/uL (1.0-4.8) Monocytes # (Auto) 1.1 x10^3/uL (0.0-1.1) Eosinophils # (Auto) 0.2 x10^3/uL (0.0-0.7) Basophils # (Auto) 0.0 x10^3/uL (0.0-0.2) Sodium Level 134 mmol/L (136-145) Potassium Level 3.7 mmol/L (3.5-5.1) Chloride Level 103 mmol/L (98-107) Carbon Dioxide Level 24 mmol/L (21-32) Anion Gap 7 (6-14) Blood Urea Nitrogen 21 mg/dL (7-20) Creatinine 0.6 mg/dL (0.6-1.0) Estimated GFR (Cockcroft-Gault) 109.6 BUN/Creatinine Ratio 35 (6-20) Glucose Level 109 mg/dL (70-99) Calcium Level 8.0 mg/dL (8.5-10.1) Total Bilirubin 0.6 mg/dL (0.2-1.0) Aspartate Amino Transf (AST/SGOT) 17 U/L (15-37) Alanine Aminotransferase (ALT/SGPT) 14 U/L (14-59) Alkaline Phosphatase 148 U/L (46-116) Total Protein 6.7 g/dL (6.4-8.2) Albumin 1.3 g/dL (3.4-5.0) Albumin/Globulin Ratio 0.2 (1.0-1.7) O2 Saturation 98 % (92-99) Arterial Blood pH 7.45 (7.35-7.45) Arterial Blood pCO2 at Patient Temp 33 mmHg (35-46) Arterial Blood pO2 at Patient Temp 116 mmHg (75-108) Arterial Blood HCO3 22 mmol/L (21-28) Arterial Blood Base Excess -1 mmol/L (-3-3) FiO2 35% Nutrition Consultation Dietary Evaluation: Recommendations by RD: PPN/TPN Comments: Pt is s/p PEG placement 08/14 -TF's ordered per MD: Nutrihep, goal 50 ml/hr (sub with isosource HN until Nutrihep is available --Friday) -Flushes 150 cc q6h -4 Prostat/day (2 in the morning, 2 in the evening) Expected Outcomes/Goals: Tolerate the TF's at goal rate- met Meet > 75% estimated nutrition needs - met Interpretation of weight loss: >7.5% in 3 months 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
[2016-08-30] MEDS: metroNIDAZOLE 500 MG TABLET PEG SCH ×2 (08:35→20:25)
[2016-08-30] MEDS: FERROUS SULFATE ORAL 300 MG/5 ML SOLUTION. FT SCH (08:35)
[2016-08-30] MEDS: ALPRAZolam 0.5 MG TABLET PEG SCH ×3 (08:36→20:25)
[2016-08-30] MEDS: NYSTATIN TOPICAL POWDER 15GM BOTTLE. TP SCH ×2 (08:36→20:45)
[2016-08-30] MEDS: oxyCODONE/APAP 5/325 1 TAB TABLET PO PRN ×2 (08:36→12:14)
[2016-08-30] MEDS: LANSOPRAZOLE 30 MG TAB.RAP.DR FT SCH ×2 (08:36→16:14)
[2016-08-30] MEDS: CHLORHEXIDINE 0.12% 15 ML MOUTHWASH. SWSP SCH ×2 (08:36→20:45)
--- NOTE | 2016-08-30 09:20 | PDOC ---
PULMONARY PROGRESS NOTES Subjective on tm, on ps over night, has sob, cough, back pain s/p bilateral chest tubes s/p intra pleural TPA left side 08/29 Vitals Vital Signs Date Time Temp Pulse Resp B/P (MAP) Pulse Ox O2 Delivery O2 Flow Rate FiO2 08/30/16 08:36 99 8.0 08/30/16 08:18 Tracheal Collar 08/30/16 06:00 103 30 107/61 (76) 08/30/16 04:00 98.4 98.4 Comments ros as mentioned as above other sys otherwise neg ROS: No Chest Pain, No Abdominal Pain General: Alert, No acute distress HEENT: Other (nc at perrl. poor dentition, nose clear) Lungs: Crackles, Other (b lat ct) Cardiovascular: S1, S2, Other Abdomen: Soft, Non-tender, Other (no mass) Neuro Exam: Alert, Oriented Extremities: Other (edema) Skin: Warm Labs Laboratory Tests Test 08/28/16 10:40 08/29/16 05:45 08/29/16 08:00 08/30/16 05:45 Clostridium difficile Toxin (PCR) Negative (Negative) White Blood Count 12.4 x10^3/uL (4.0-11.0) 12.2 x10^3/uL (4.0-11.0) Red Blood Count 2.87 x10^6/uL (3.50-5.40) 3.08 x10^6/uL (3.50-5.40) Hemoglobin 8.3 g/dL (12.0-15.5) 9.2 g/dL (12.0-15.5) Hematocrit 25.5 % (36.0-47.0) 27.2 % (36.0-47.0) Mean Corpuscular Volume 89 fL (79-100) 88 fL (79-100) Mean Corpuscular Hemoglobin 29 pg (25-35) 30 pg (25-35) Mean Corpuscular Hemoglobin Concent 33 g/dL (31-37) 34 g/dL (31-37) Red Cell Distribution Width 16.5 % (11.5-14.5) 17.0 % (11.5-14.5) Platelet Count 303 x10^3/uL (140-400) 302 x10^3/uL (140-400) Neutrophils (%) (Auto) 77 % (31-73) 77 % (31-73) Lymphocytes (%) (Auto) 13 % (24-48) 12 % (24-48) Monocytes (%) (Auto) 8 % (0-9) 9 % (0-9) Eosinophils (%) (Auto) 2 % (0-3) 2 % (0-3) Basophils (%) (Auto) 0 % (0-3) 0 % (0-3) Neutrophils # (Auto) 9.6 x10^3uL (1.8-7.7) 9.5 x10^3uL (1.8-7.7) Lymphocytes # (Auto) 1.6 x10^3/uL (1.0-4.8) 1.4 x10^3/uL (1.0-4.8) Monocytes # (Auto) 1.0 x10^3/uL (0.0-1.1) 1.1 x10^3/uL (0.0-1.1) Eosinophils # (Auto) 0.2 x10^3/uL (0.0-0.7) 0.2 x10^3/uL (0.0-0.7) Basophils # (Auto) 0.0 x10^3/uL (0.0-0.2) 0.0 x10^3/uL (0.0-0.2) Sodium Level 134 mmol/L (136-145) 134 mmol/L (136-145) Potassium Level 3.6 mmol/L (3.5-5.1) 3.7 mmol/L (3.5-5.1) Chloride Level 103 mmol/L (98-107) 103 mmol/L (98-107) Carbon Dioxide Level 25 mmol/L (21-32) 24 mmol/L (21-32) Anion Gap 6 (6-14) 7 (6-14) Blood Urea Nitrogen 18 mg/dL (7-20) 21 mg/dL (7-20) Creatinine 0.6 mg/dL (0.6-1.0) 0.6 mg/dL (0.6-1.0) Estimated GFR (Cockcroft-Gault) 109.6 109.6 Glucose Level 111 mg/dL (70-99) 109 mg/dL (70-99) Calcium Level 8.0 mg/dL (8.5-10.1) 8.0 mg/dL (8.5-10.1) O2 Saturation 96 % (92-99) Arterial Blood pH 7.43 (7.35-7.45) Arterial Blood pCO2 at Patient Temp 36 mmHg (35-46) Arterial Blood pO2 at Patient Temp 82 mmHg (75-108) Arterial Blood HCO3 23 mmol/L (21-28) Arterial Blood Base Excess -1 mmol/L (-3-3) BUN/Creatinine Ratio 35 (6-20) Total Bilirubin 0.6 mg/dL (0.2-1.0) Aspartate Amino Transf (AST/SGOT) 17 U/L (15-37) Alanine Aminotransferase (ALT/SGPT) 14 U/L (14-59) Alkaline Phosphatase 148 U/L (46-116) Total Protein 6.7 g/dL (6.4-8.2) Albumin 1.3 g/dL (3.4-5.0) Albumin/Globulin Ratio 0.2 (1.0-1.7) Test 08/30/16 07:25 O2 Saturation 98 % (92-99) Arterial Blood pH 7.45 (7.35-7.45) Arterial Blood pCO2 at Patient Temp 33 mmHg (35-46) Arterial Blood pO2 at Patient Temp 116 mmHg (75-108) Arterial Blood HCO3 22 mmol/L (21-28) Arterial Blood Base Excess -1 mmol/L (-3-3) FiO2 35% Laboratory Tests Test 08/30/16 05:45 08/30/16 07:25 White Blood Count 12.2 x10^3/uL (4.0-11.0) Red Blood Count 3.08 x10^6/uL (3.50-5.40) Hemoglobin 9.2 g/dL (12.0-15.5) Hematocrit 27.2 % (36.0-47.0) Mean Corpuscular Volume 88 fL (79-100) Mean Corpuscular Hemoglobin 30 pg (25-35) Mean Corpuscular Hemoglobin Concent 34 g/dL (31-37) Red Cell Distribution Width 17.0 % (11.5-14.5) Platelet Count 302 x10^3/uL (140-400) Neutrophils (%) (Auto) 77 % (31-73) Lymphocytes (%) (Auto) 12 % (24-48) Monocytes (%) (Auto) 9 % (0-9) Eosinophils (%) (Auto) 2 % (0-3) Basophils (%) (Auto) 0 % (0-3) Neutrophils # (Auto) 9.5 x10^3uL (1.8-7.7) Lymphocytes # (Auto) 1.4 x10^3/uL (1.0-4.8) Monocytes # (Auto) 1.1 x10^3/uL (0.0-1.1) Eosinophils # (Auto) 0.2 x10^3/uL (0.0-0.7) Basophils # (Auto) 0.0 x10^3/uL (0.0-0.2) Sodium Level 134 mmol/L (136-145) Potassium Level 3.7 mmol/L (3.5-5.1) Chloride Level 103 mmol/L (98-107) Carbon Dioxide Level 24 mmol/L (21-32) Anion Gap 7 (6-14) Blood Urea Nitrogen 21 mg/dL (7-20) Creatinine 0.6 mg/dL (0.6-1.0) Estimated GFR (Cockcroft-Gault) 109.6 BUN/Creatinine Ratio 35 (6-20) Glucose Level 109 mg/dL (70-99) Calcium Level 8.0 mg/dL (8.5-10.1) Total Bilirubin 0.6 mg/dL (0.2-1.0) Aspartate Amino Transf (AST/SGOT) 17 U/L (15-37) Alanine Aminotransferase (ALT/SGPT) 14 U/L (14-59) Alkaline Phosphatase 148 U/L (46-116) Total Protein 6.7 g/dL (6.4-8.2) Albumin 1.3 g/dL (3.4-5.0) Albumin/Globulin Ratio 0.2 (1.0-1.7) O2 Saturation 98 % (92-99) Arterial Blood pH 7.45 (7.35-7.45) Arterial Blood pCO2 at Patient Temp 33 mmHg (35-46) Arterial Blood pO2 at Patient Temp 116 mmHg (75-108) Arterial Blood HCO3 22 mmol/L (21-28) Arterial Blood Base Excess -1 mmol/L (-3-3) FiO2 35% Medications Active Scripts Medications Dose Route/Sig Days Date Category No Known Medications Prior To Admisstion (Info) Each 1 Each 08/06/16 Reported Comments cxr reviewed, 08/29 Slight interval improvement in right-sided parenchymal opacities with increasing airspace opacities in the left midlung. Overall not much change as compared to the previous study. Impression . 1. Acute hypoxemic respiratory failure, multifactorial in etiology / increase secretions , repeat sputum with E-Coli 2. bilateral loculated effusions, suspected empyema, s/p bilateral chest tubes , VERY LOW GLUCOSE(9), LOW PH 3. Bilateral pulmonary nodules with cavitation, due to septic emboli. 4. Endocarditis. right sided, improving vegetations 5. ? chronic obstructive pulmonary disease. 6. Leukocytosis./fever, suspect due to empyema, bilateral 7. Anemia, ongoing 8. Thrombocytopenia. off lovenox 10. Intravenous drug abuse. 11. Tobacco habituation. 12. MSSA septicemia/pneumonia/ CHF 13. ct chest reviewed/ bilateral loculated effusion, suspect empyema, Plan . weaning as tolerated, monitor resp status closely monitor chest tube output .right chest tube can come out in 24 hrs s/p intra pleural TPA left side 08/29, increased suction to -40 Trach secretions for c/s, E-coli, on antibiotic per ID CXR improving on right more then left. ? may need left de-cortication antibiotics per ID, cont abx on cefepime now bronchodilators keep I<O off lovenox, continues to have low Hb and need for transfusion. pepcid for prophylaxis am cxr discussed w RN/RT, pt JUAN ADDISON MD August 30, 2016 09:20
--- NOTE | 2016-08-30 13:00 | PDOC ---
Subjective: Subjective: No abd pain. Indicates diarrhea slowing. Objective: Objective: Walked some today, PT brought her a Mother's Day gift. Vital Signs: Vital Signs Date Time Temp Pulse Resp B/P (MAP) Pulse Ox O2 Delivery O2 Flow Rate FiO2 08/30/16 12:14 94 10.0 08/30/16 11:11 Tracheal Collar 08/30/16 06:00 103 30 107/61 (76) 08/30/16 04:00 98.4 98.4 Labs: Laboratory Tests Test 08/30/16 05:45 08/30/16 07:25 White Blood Count 12.2 x10^3/uL Red Blood Count 3.08 x10^6/uL Hemoglobin 9.2 g/dL Hematocrit 27.2 % Mean Corpuscular Volume 88 fL Mean Corpuscular Hemoglobin 30 pg Mean Corpuscular Hemoglobin Concent 34 g/dL Red Cell Distribution Width 17.0 % Platelet Count 302 x10^3/uL Neutrophils (%) (Auto) 77 % Lymphocytes (%) (Auto) 12 % Monocytes (%) (Auto) 9 % Eosinophils (%) (Auto) 2 % Basophils (%) (Auto) 0 % Neutrophils # (Auto) 9.5 x10^3uL Lymphocytes # (Auto) 1.4 x10^3/uL Monocytes # (Auto) 1.1 x10^3/uL Eosinophils # (Auto) 0.2 x10^3/uL Basophils # (Auto) 0.0 x10^3/uL Sodium Level 134 mmol/L Potassium Level 3.7 mmol/L Chloride Level 103 mmol/L Carbon Dioxide Level 24 mmol/L Anion Gap 7 Blood Urea Nitrogen 21 mg/dL Creatinine 0.6 mg/dL Estimated GFR (Cockcroft-Gault) 109.6 BUN/Creatinine Ratio 35 Glucose Level 109 mg/dL Calcium Level 8.0 mg/dL Total Bilirubin 0.6 mg/dL Aspartate Amino Transf (AST/SGOT) 17 U/L Alanine Aminotransferase (ALT/SGPT) 14 U/L Alkaline Phosphatase 148 U/L Total Protein 6.7 g/dL Albumin 1.3 g/dL Albumin/Globulin Ratio 0.2 O2 Saturation 98 % Arterial Blood pH 7.45 Arterial Blood pCO2 at Patient Temp 33 mmHg Arterial Blood pO2 at Patient Temp 116 mmHg Arterial Blood HCO3 22 mmol/L Arterial Blood Base Excess -1 mmol/L FiO2 35% Imaging: CXR 08/30/16 Impression: Slight interval improvement in right-sided parenchymal opacities with increasing airspace opacities in the left midlung. Overall not much change as compared to the previous study. PE: GEN: NAD, up to chair LUNGS: trach collar HEART: RRR ABD: non-tender, PEG in place NEURO/PSYCH: A & O 3 A/P: Resp failure s/p trach, PEG Diarrhea, rectal tube -C Diff neg -- Other per Dr. Peraza. ORQUIDEA ELIZABETH August 30, 2016 13:00
[2016-08-30] MEDS: oxyCODONE IR 5 MG TABLET PO PRN ×2 (16:10→20:27)
[2016-08-30] MEDS: ZOLPIDEM 5 MG TABLET. PO PRN (20:25)
[2016-08-30] MEDS: QUEtiapine 25 MG TABLET. PO SCH (20:25)
[2016-08-31] VITALS (24 sets, daily range): BP systolic 98–115; BP diastolic 57–81
[2016-08-31] MEDS: oxyCODONE IR 5 MG TABLET PO PRN ×5 (00:32→22:27)
[2016-08-31] MEDS: HALOPERIDOL LACTATE 5 MG/ML VIAL. IVP PRN (02:14)
[2016-08-31] MEDS: CEFEPIME HCL 1 GM in IV NORMAL SALINE 50ML 50 ML IV SCH ×3 (05:33→22:26)
[2016-08-31 06:08] LABS: BASO # 0.1 x10^3/uL (0.0-0.2); BASO % 1 % (0-3); EOS % 1 % (0-3); HEMATOCRIT 27.7 % (36.0-47.0); HEMOGLOBIN 9.3 g/dL (12.0-15.5); LYMPH # 1.2 x10^3/uL (1.0-4.8); LYMPH % 9 % (24-48); MEAN CORPUSCULAR HEMOGLOBIN 29 pg (25-35); MEAN CORPUSCULAR HGB CONC 33 g/dL (31-37); MEAN CORPUSCULAR VOLUME 88 fL (79-100); MONO % 7 % (0-9); NEUT % 83 % (31-73); PLATELET COUNT 302 x10^3/uL (140-400); RED BLOOD COUNT 3.16 x10^6/uL (3.50-5.40); RED CELL DISTRIBUTION WIDTH 16.8 % (11.5-14.5); WHITE BLOOD COUNT 13.4 x10^3/uL (4.0-11.0)
[2016-08-31 06:23] LABS: CALCIUM 7.8 mg/dL (8.5-10.1); CREATININE 0.6 mg/dL (0.6-1.0); GFR 109.6; POTASSIUM 3.7 mmol/L (3.5-5.1)
[2016-08-31] MEDS: IPRATRPIUM/ALBUTEROL 0.5/2.5MG 3 ML NEBU. NEB SCH ×4 (07:51→19:17)
[2016-08-31] MEDS: BUDESONIDE 0.5 MG/2 ML NEBU. NEB SCH ×2 (07:51→19:17)
--- NOTE | 2016-08-31 08:19 | PDOC ---
PULMONARY PROGRESS NOTES Subjective on tm, on ps 14, has sob, cough, back pain s/p bilateral chest tubes s/p intra pleural TPA left side 08/29 Vitals Vital Signs Date Time Temp Pulse Resp B/P (MAP) Pulse Ox O2 Delivery O2 Flow Rate FiO2 08/31/16 07:46 99 Ventilator 08/31/16 07:00 100 28 109/66 (80) 08/31/16 06:23 10.0 08/31/16 04:00 98.9 98.9 Comments ros as mentioned as above other sys otherwise neg ROS: No Chest Pain, No Abdominal Pain General: Alert, No acute distress HEENT: Other (nc at perrl. poor dentition, nose clear) Lungs: Crackles, Other (b lat ct) Cardiovascular: S1, S2, Other Abdomen: Soft, Non-tender, Other (no mass) Neuro Exam: Alert, Oriented Extremities: Other (edema) Skin: Warm Labs Laboratory Tests Test 08/30/16 05:45 08/30/16 07:25 08/30/16 20:44 08/31/16 05:30 White Blood Count 12.2 x10^3/uL (4.0-11.0) 13.4 x10^3/uL (4.0-11.0) Red Blood Count 3.08 x10^6/uL (3.50-5.40) 3.16 x10^6/uL (3.50-5.40) Hemoglobin 9.2 g/dL (12.0-15.5) 9.3 g/dL (12.0-15.5) Hematocrit 27.2 % (36.0-47.0) 27.7 % (36.0-47.0) Mean Corpuscular Volume 88 fL (79-100) 88 fL (79-100) Mean Corpuscular Hemoglobin 30 pg (25-35) 29 pg (25-35) Mean Corpuscular Hemoglobin Concent 34 g/dL (31-37) 33 g/dL (31-37) Red Cell Distribution Width 17.0 % (11.5-14.5) 16.8 % (11.5-14.5) Platelet Count 302 x10^3/uL (140-400) 302 x10^3/uL (140-400) Neutrophils (%) (Auto) 77 % (31-73) 83 % (31-73) Lymphocytes (%) (Auto) 12 % (24-48) 9 % (24-48) Monocytes (%) (Auto) 9 % (0-9) 7 % (0-9) Eosinophils (%) (Auto) 2 % (0-3) 1 % (0-3) Basophils (%) (Auto) 0 % (0-3) 1 % (0-3) Neutrophils # (Auto) 9.5 x10^3uL (1.8-7.7) 11.1 x10^3uL (1.8-7.7) Lymphocytes # (Auto) 1.4 x10^3/uL (1.0-4.8) 1.2 x10^3/uL (1.0-4.8) Monocytes # (Auto) 1.1 x10^3/uL (0.0-1.1) 0.9 x10^3/uL (0.0-1.1) Eosinophils # (Auto) 0.2 x10^3/uL (0.0-0.7) 0.2 x10^3/uL (0.0-0.7) Basophils # (Auto) 0.0 x10^3/uL (0.0-0.2) 0.1 x10^3/uL (0.0-0.2) Sodium Level 134 mmol/L (136-145) 134 mmol/L (136-145) Potassium Level 3.7 mmol/L (3.5-5.1) 3.7 mmol/L (3.5-5.1) Chloride Level 103 mmol/L (98-107) 102 mmol/L (98-107) Carbon Dioxide Level 24 mmol/L (21-32) 26 mmol/L (21-32) Anion Gap 7 (6-14) 6 (6-14) Blood Urea Nitrogen 21 mg/dL (7-20) 18 mg/dL (7-20) Creatinine 0.6 mg/dL (0.6-1.0) 0.6 mg/dL (0.6-1.0) Estimated GFR (Cockcroft-Gault) 109.6 109.6 BUN/Creatinine Ratio 35 (6-20) Glucose Level 109 mg/dL (70-99) 123 mg/dL (70-99) Calcium Level 8.0 mg/dL (8.5-10.1) 7.8 mg/dL (8.5-10.1) Total Bilirubin 0.6 mg/dL (0.2-1.0) Aspartate Amino Transf (AST/SGOT) 17 U/L (15-37) Alanine Aminotransferase (ALT/SGPT) 14 U/L (14-59) Alkaline Phosphatase 148 U/L (46-116) Total Protein 6.7 g/dL (6.4-8.2) Albumin 1.3 g/dL (3.4-5.0) Albumin/Globulin Ratio 0.2 (1.0-1.7) O2 Saturation 98 % (92-99) Arterial Blood pH 7.45 (7.35-7.45) Arterial Blood pCO2 at Patient Temp 33 mmHg (35-46) Arterial Blood pO2 at Patient Temp 116 mmHg (75-108) Arterial Blood HCO3 22 mmol/L (21-28) Arterial Blood Base Excess -1 mmol/L (-3-3) FiO2 35% Glucose (Fingerstick) 97 mg/dL (70-99) Laboratory Tests Test 08/30/16 20:44 08/31/16 05:30 Glucose (Fingerstick) 97 mg/dL (70-99) White Blood Count 13.4 x10^3/uL (4.0-11.0) Red Blood Count 3.16 x10^6/uL (3.50-5.40) Hemoglobin 9.3 g/dL (12.0-15.5) Hematocrit 27.7 % (36.0-47.0) Mean Corpuscular Volume 88 fL (79-100) Mean Corpuscular Hemoglobin 29 pg (25-35) Mean Corpuscular Hemoglobin Concent 33 g/dL (31-37) Red Cell Distribution Width 16.8 % (11.5-14.5) Platelet Count 302 x10^3/uL (140-400) Neutrophils (%) (Auto) 83 % (31-73) Lymphocytes (%) (Auto) 9 % (24-48) Monocytes (%) (Auto) 7 % (0-9) Eosinophils (%) (Auto) 1 % (0-3) Basophils (%) (Auto) 1 % (0-3) Neutrophils # (Auto) 11.1 x10^3uL (1.8-7.7) Lymphocytes # (Auto) 1.2 x10^3/uL (1.0-4.8) Monocytes # (Auto) 0.9 x10^3/uL (0.0-1.1) Eosinophils # (Auto) 0.2 x10^3/uL (0.0-0.7) Basophils # (Auto) 0.1 x10^3/uL (0.0-0.2) Sodium Level 134 mmol/L (136-145) Potassium Level 3.7 mmol/L (3.5-5.1) Chloride Level 102 mmol/L (98-107) Carbon Dioxide Level 26 mmol/L (21-32) Anion Gap 6 (6-14) Blood Urea Nitrogen 18 mg/dL (7-20) Creatinine 0.6 mg/dL (0.6-1.0) Estimated GFR (Cockcroft-Gault) 109.6 Glucose Level 123 mg/dL (70-99) Calcium Level 7.8 mg/dL (8.5-10.1) Medications Active Scripts Medications Dose Route/Sig Days Date Category No Known Medications Prior To Admisstion (Info) Each 1 Each 08/06/16 Reported Comments cxr reviewed, 08/29 Slight interval improvement in right-sided parenchymal opacities with increasing airspace opacities in the left midlung. Overall not much change as compared to the previous study. Impression . 1. Acute hypoxemic respiratory failure, multifactorial in etiology / increase secretions , repeat sputum with E-Coli 2. bilateral loculated effusions, suspected empyema, s/p bilateral chest tubes , VERY LOW GLUCOSE(9), LOW PH 3. Bilateral pulmonary nodules with cavitation, due to septic emboli. 4. Endocarditis. right sided, improving vegetations 5. ? chronic obstructive pulmonary disease. 6. Leukocytosis./fever, suspect due to empyema, bilateral 7. Anemia, ongoing 8. Thrombocytopenia. off lovenox 10. Intravenous drug abuse. 11. Tobacco habituation. 12. MSSA septicemia/pneumonia/ CHF 13. ct chest reviewed/ bilateral loculated effusion, suspect empyema, Plan . weaning as tolerated, monitor resp status closely monitor chest tube output.right chest tube 75 cc, left 50 cc, drainage over the past 24 hrs, cont ct s/p intra pleural TPA left side 5/11, cont suction -40 Trach secretions for c/s, E-coli, on antibiotic per ID CXR improving on right more then left. ? may need left de-cortication antibiotics per ID, cont abx on cefepime now bronchodilators keep I<O off lovenox, continues to have low Hb and need for transfusion. pepcid for prophylaxis am cxr discussed w RN/RT, pt JUAN ADDISON MD August 31, 2016 08:19
[2016-08-31 08:24] LABS: HCO3 ABG 25 mmol/L (21-28); PCO2 ABG 37 mmHg (35-46); PH ABG 7.45 (7.35-7.45); PO2 ABG 190 mmHg (75-108); SAT O2 ABG 99 % (92-99)
[2016-08-31] MEDS: metroNIDAZOLE 500 MG TABLET PEG SCH ×2 (08:50→21:05)
[2016-08-31] MEDS: NYSTATIN TOPICAL POWDER 15GM BOTTLE. TP SCH ×2 (08:50→21:13)
[2016-08-31] MEDS: LANSOPRAZOLE 30 MG TAB.RAP.DR FT SCH ×2 (08:50→17:50)
[2016-08-31] MEDS: CHLORHEXIDINE 0.12% 15 ML MOUTHWASH. SWSP SCH ×2 (08:50→21:13)
[2016-08-31] MEDS: FERROUS SULFATE ORAL 300 MG/5 ML SOLUTION. FT SCH (08:50)
[2016-08-31] MEDS: ACETAMINOPHEN 650 MG/20.3 ML SOLUTION. PEG PRN ×2 (08:50→18:11)
[2016-08-31] MEDS: ALPRAZolam 0.5 MG TABLET PEG SCH ×3 (09:00→21:05)
--- NOTE | 2016-08-31 09:21 | PDOC ---
PROGRESS NOTES Chief Complaint Chief Complaint Sepsis Acute hypoxic respir failure ASSESSMENT AND PLAN: 1. Sepsis: resolved 2. 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 MSSA. on cefepime (to cover E.coli as well) 3. PNA: septic emboli. sputum now with heavy growth E.coli. bilat effusions suspicious for empyemas. s/p bilat CT placement 08/26. continue to drain, maya L. management as per Pulm 4. Acute respir failure: trached, vent weaned to trach shield. obtain speech path 5. Diarrhea: massive, albeit improving per RN. RT in place. C.diff neg. prob due to TF - changed today due to unavailability of desired formula. start questran 6. Anemia: severe, recurrent: prob multifactorial, incl severe inflammation, HCV toxicity. inflammation confirmed by iron studies. b12/folate pending. on daily low dose Fe 7. Thrombocytopenia: 2/2 infection, now resolved. monitor 8. [place]: resolved 9. Hep C: new dx during current admit. F/U on O/P basis for rx 10. Polysubstance abuse: switched to oxy q4PRN. with ongoing pain issues ( tubes, etc), pain is present and will require higher than normal doses due to her previous narcotic abuse. wean when CTs d/c.ed 11. Agitation: on seroquel, Xanax. Haldol PRN 12. Malnutrition: severe, POA, weight loss prior to admit, albumin critically low. suspect large component of inflammation as well. PEG feeds changed History of Present Illness History of Present Illness pain controlle, but c/o insomnia last nite, tired this AM Vitals Vitals Vital Signs Date Time Temp Pulse Resp B/P (MAP) Pulse Ox O2 Delivery O2 Flow Rate FiO2 08/31/16 09:00 104 34 111/57 (75) 97 Tracheal Collar 08/31/16 08:00 99.4 99.4 08/31/16 06:23 10.0 Physical Exam General: Alert, Cooperative, No acute distress Heart: Normal S1, Normal S2, No murmurs Lungs: Crackles, Other (b lat ct) Abdomen: Normal bowel sounds, Other (Hepatosplenomegaly present) Extremities: No cyanosis, Other (1+ edema) Skin: No breakdown, No significant lesion Labs LABS Laboratory Tests Test 08/30/16 20:44 08/31/16 05:30 08/31/16 08:00 Glucose (Fingerstick) 97 mg/dL (70-99) White Blood Count 13.4 x10^3/uL (4.0-11.0) Red Blood Count 3.16 x10^6/uL (3.50-5.40) Hemoglobin 9.3 g/dL (12.0-15.5) Hematocrit 27.7 % (36.0-47.0) Mean Corpuscular Volume 88 fL (79-100) Mean Corpuscular Hemoglobin 29 pg (25-35) Mean Corpuscular Hemoglobin Concent 33 g/dL (31-37) Red Cell Distribution Width 16.8 % (11.5-14.5) Platelet Count 302 x10^3/uL (140-400) Neutrophils (%) (Auto) 83 % (31-73) Lymphocytes (%) (Auto) 9 % (24-48) Monocytes (%) (Auto) 7 % (0-9) Eosinophils (%) (Auto) 1 % (0-3) Basophils (%) (Auto) 1 % (0-3) Neutrophils # (Auto) 11.1 x10^3uL (1.8-7.7) Lymphocytes # (Auto) 1.2 x10^3/uL (1.0-4.8) Monocytes # (Auto) 0.9 x10^3/uL (0.0-1.1) Eosinophils # (Auto) 0.2 x10^3/uL (0.0-0.7) Basophils # (Auto) 0.1 x10^3/uL (0.0-0.2) Sodium Level 134 mmol/L (136-145) Potassium Level 3.7 mmol/L (3.5-5.1) Chloride Level 102 mmol/L (98-107) Carbon Dioxide Level 26 mmol/L (21-32) Anion Gap 6 (6-14) Blood Urea Nitrogen 18 mg/dL (7-20) Creatinine 0.6 mg/dL (0.6-1.0) Estimated GFR (Cockcroft-Gault) 109.6 Glucose Level 123 mg/dL (70-99) Calcium Level 7.8 mg/dL (8.5-10.1) O2 Saturation 99 % (92-99) Arterial Blood pH 7.45 (7.35-7.45) Arterial Blood pCO2 at Patient Temp 37 mmHg (35-46) Arterial Blood pO2 at Patient Temp 190 mmHg (75-108) Arterial Blood HCO3 25 mmol/L (21-28) Arterial Blood Base Excess 1 mmol/L (-3-3) FiO2 35.0 Nutrition Consultation Dietary Evaluation: Recommendations by RD: PPN/TPN Comments: Pt is s/p PEG placement 08/14 -TF's ordered per MD: Nutrihep, goal 50 ml/hr (sub with isosource HN until Nutrihep is available) -Flushes 150 cc q6h -4 Prostat/day (2 in the morning, 2 in the evening) Expected Outcomes/Goals: Tolerate the TF's at goal rate- met Meet > 75% estimated nutrition needs - met Interpretation of weight loss: >7.5% in 3 months Malnutrition Findings: Reduced Research And Development Engineer Strength: N/A Reduced Research And Development Engineer Strength (Non-Sev: N/A Malnutrition related to morbid: No Weight Status: Overweight Fluid Accumulation (N/A): N/A JUANITO PRETTY MD August 31, 2016 09:21
--- NOTE | 2016-08-31 09:27 | PDOC ---
Infectious Disease Note Subjective Subjective Comfortable, denies pain or SOA No fever + diarrhea. Rectal tube in place Tube feedings ROS ROS GEN: Denies chills, sweats HEENT: Denies sore throat CV: Denies chest pain GI: Denies n/v Vital Sign Vital Signs Vital Signs Date Time Temp Pulse Resp B/P (MAP) Pulse Ox O2 Delivery O2 Flow Rate FiO2 08/31/16 09:00 104 34 111/57 (75) 97 Tracheal Collar 08/31/16 08:00 99.4 99.4 08/31/16 06:23 10.0 Physical Exam PHYSICAL EXAM GENERAL: Propped up in bed, alert, relaxed appearance HEENT: PERRL, OC/OP pink, poor dentition NECK: Trach shield, brown-colored secretions LUNGS: + rhonchi, nonlabored HEART: S1S2 ABD: Mildly distended, soft, NT. g-tube intact. + rectal tube. : [place] EXT: Generalized edema. DIRECTOR AGENCY & STRATEGIC PARTNERSHIPS: Alert, responds appropriately SKIN: No rash LUE-PICC. clean Labs Lab Laboratory Tests Test 08/30/16 20:44 08/31/16 05:30 08/31/16 08:00 Glucose (Fingerstick) 97 mg/dL (70-99) White Blood Count 13.4 x10^3/uL (4.0-11.0) Red Blood Count 3.16 x10^6/uL (3.50-5.40) Hemoglobin 9.3 g/dL (12.0-15.5) Hematocrit 27.7 % (36.0-47.0) Mean Corpuscular Volume 88 fL (79-100) Mean Corpuscular Hemoglobin 29 pg (25-35) Mean Corpuscular Hemoglobin Concent 33 g/dL (31-37) Red Cell Distribution Width 16.8 % (11.5-14.5) Platelet Count 302 x10^3/uL (140-400) Neutrophils (%) (Auto) 83 % (31-73) Lymphocytes (%) (Auto) 9 % (24-48) Monocytes (%) (Auto) 7 % (0-9) Eosinophils (%) (Auto) 1 % (0-3) Basophils (%) (Auto) 1 % (0-3) Neutrophils # (Auto) 11.1 x10^3uL (1.8-7.7) Lymphocytes # (Auto) 1.2 x10^3/uL (1.0-4.8) Monocytes # (Auto) 0.9 x10^3/uL (0.0-1.1) Eosinophils # (Auto) 0.2 x10^3/uL (0.0-0.7) Basophils # (Auto) 0.1 x10^3/uL (0.0-0.2) Sodium Level 134 mmol/L (136-145) Potassium Level 3.7 mmol/L (3.5-5.1) Chloride Level 102 mmol/L (98-107) Carbon Dioxide Level 26 mmol/L (21-32) Anion Gap 6 (6-14) Blood Urea Nitrogen 18 mg/dL (7-20) Creatinine 0.6 mg/dL (0.6-1.0) Estimated GFR (Cockcroft-Gault) 109.6 Glucose Level 123 mg/dL (70-99) Calcium Level 7.8 mg/dL (8.5-10.1) O2 Saturation 99 % (92-99) Arterial Blood pH 7.45 (7.35-7.45) Arterial Blood pCO2 at Patient Temp 37 mmHg (35-46) Arterial Blood pO2 at Patient Temp 190 mmHg (75-108) Arterial Blood HCO3 25 mmol/L (21-28) Arterial Blood Base Excess 1 mmol/L (-3-3) FiO2 35.0 Micro Sputum (08/22) GRAM STAIN Final WBCS MANY GRAM NEGATIVE RODS MANY SQUAMOUS EPITHELIAL CELLS OCCASIONAL Objective Assessment Loculated pleural effusions- S/p Bilat Chest tubes 08/26. Ecoli in sputum (08/22) Fever ? PRBCs better C-diff neg Leukocytosis - stable Acute anemia s/p PRBCs, 08/16, 08/20, 08/27 S/p Trach/PEG 08/13 MSSA sepsis 08/01 ([facility]) -Repeat BC positive, 08/05 & 08/07. Neg 08/09 Right-sided bacterial endocarditis. -TTE. 3.0 x 2.0cm mobile mass TV Multiple pulmonary nodules/septic emboli Acute Resp failure - Intubated ? developing ARDS. S/p Bronch 08/08. MSSA. Trach IV drug use. Hep C Ileus Renal insufficiency. Severe thrombocytopenia. improved Hepatosplenomegaly on CT Plan Plan of Care Trial of Flagyl to r/o anaerobes in loculation given stalling of WBC but may just be from loculation Await to see if decortication is necessary Nafcillin changed to cefepime to cover for Ecoli in sputum Patient will need a total of six weeks of IV abx to treat endocarditis/ bacteremia Monitor WBC, temp Supportive care Patient seen and examined. Chart reviewed in detail. Case discussed with WRAPPING MACHINE OPERATOR. Agree with above plan. JAZMIN SOUSA APRN August 31, 2016 09:27 JAY LAWLER MD August 31, 2016 14:25
[2016-08-31] MEDS: CHOLESTYRAMINE/ASPARTAME 4 GM PACKET PO SCH ×4 (10:00→22:26)
[2016-08-31] MEDS ORDERED: diphenhydrAMINE HCL 25 MG CAPSULE PO PRN (10:30)
--- NOTE | 2016-08-31 10:41 | RAD ---
Examination: Single frontal view of the chest. History: History of respiratory failure Comparison: 08/30/2016 Findings: Tracheostomy tube is in place. Left-sided PICC line in place. The cardiomediastinal silhouette is unchanged. Right and left pigtail catheters in the lung bases are similar to prior exam. Left lung airspace opacity likely pneumonia or atelectasis is slightly improved compared to prior exam. Prominent appearing bilateral interstitial lung markings likely congestive changes. Small left pleural effusion. Impression: 1. Mild improved left lung airspace opacity likely improved atelectasis or pneumonia. 2. Unchanged congestive changes.
[2016-08-31] MEDS: oxyCODONE/APAP 5/325 1 TAB TABLET PO PRN (13:10)
[2016-08-31 18:49] LABS: BILIRUBIN,URINE NEGATIVE (NEG); GLUCOSE,URINE NEGATIVE (NEG); NITRITE,URINE NEGATIVE (NEG); PROTEIN,URINE 30 mg/dL (NEG-TRACE)
[2016-08-31 18:54] LABS: BACTERIA,URINE 0 /HPF (0-FEW); RBC,URINE 20-40 /HPF (0-2); SQUAMOUS EPITHELIAL CELL,UR FEW /LPF
[2016-08-31] MEDS: QUEtiapine 25 MG TABLET. PO SCH (21:05)
[2016-08-31] MEDS: ZOLPIDEM 5 MG TABLET. PO PRN (21:05)
[2016-09-01] VITALS (24 sets, daily range): BP systolic 90–139; BP diastolic 53–88
[2016-09-01] MEDS: oxyCODONE/APAP 5/325 1 TAB TABLET PO PRN ×3 (01:19→21:10)
[2016-09-01] MEDS: oxyCODONE IR 5 MG TABLET PO PRN ×3 (03:49→18:09)
[2016-09-01] MEDS: CEFEPIME HCL 1 GM in IV NORMAL SALINE 50ML 50 ML IV SCH ×3 (05:36→22:49)
[2016-09-01 06:14] LABS: BASO % 0 % (0-3); EOS % 1 % (0-3); HEMOGLOBIN 9.1 g/dL (12.0-15.5); LYMPH # 1.2 x10^3/uL (1.0-4.8); LYMPH % 9 % (24-48); MEAN CORPUSCULAR HEMOGLOBIN 30 pg (25-35); MEAN CORPUSCULAR HGB CONC 34 g/dL (31-37); MEAN CORPUSCULAR VOLUME 89 fL (79-100); MONO % 6 % (0-9); NEUT % 84 % (31-73); PLATELET COUNT 291 x10^3/uL (140-400); RED BLOOD COUNT 3.03 x10^6/uL (3.50-5.40); RED CELL DISTRIBUTION WIDTH 16.9 % (11.5-14.5); WHITE BLOOD COUNT 13.8 x10^3/uL (4.0-11.0)
[2016-09-01 06:22] LABS: CALCIUM 7.8 mg/dL (8.5-10.1); CREATININE 0.5 mg/dL (0.6-1.0); GFR 135.3; POTASSIUM 3.6 mmol/L (3.5-5.1)
[2016-09-01] MEDS: IPRATRPIUM/ALBUTEROL 0.5/2.5MG 3 ML NEBU. NEB SCH ×4 (07:05→20:02)
[2016-09-01] MEDS: BUDESONIDE 0.5 MG/2 ML NEBU. NEB SCH ×2 (07:05→20:02)
--- NOTE | 2016-09-01 08:26 | PDOC ---
PULMONARY PROGRESS NOTES Subjective on tm, on ps 14 over night, has sob, cough, back pain, thick secretion s/p bilateral chest tubes s/p intra pleural TPA left side 08/29 Vitals Vital Signs Date Time Temp Pulse Resp B/P (MAP) Pulse Ox O2 Delivery O2 Flow Rate FiO2 09/01/16 07:09 95 Tracheal Collar 09/01/16 07:00 109 27 109/68 (82) 09/01/16 04:00 98.7 98.7 08/31/16 22:08 8.0 Comments ros as mentioned as above other sys otherwise neg ROS: No Chest Pain, No Abdominal Pain General: Alert, No acute distress HEENT: Other (nc at perrl. poor dentition, nose clear) Lungs: Crackles, Other (b lat ct) Cardiovascular: S1, S2, Other Abdomen: Soft, Non-tender, Other (no mass) Neuro Exam: Alert, Oriented Extremities: Other (edema) Skin: Warm Labs Laboratory Tests Test 08/30/16 20:44 08/31/16 05:30 08/31/16 08:00 08/31/16 18:30 Glucose (Fingerstick) 97 mg/dL (70-99) White Blood Count 13.4 x10^3/uL (4.0-11.0) Red Blood Count 3.16 x10^6/uL (3.50-5.40) Hemoglobin 9.3 g/dL (12.0-15.5) Hematocrit 27.7 % (36.0-47.0) Mean Corpuscular Volume 88 fL (79-100) Mean Corpuscular Hemoglobin 29 pg (25-35) Mean Corpuscular Hemoglobin Concent 33 g/dL (31-37) Red Cell Distribution Width 16.8 % (11.5-14.5) Platelet Count 302 x10^3/uL (140-400) Neutrophils (%) (Auto) 83 % (31-73) Lymphocytes (%) (Auto) 9 % (24-48) Monocytes (%) (Auto) 7 % (0-9) Eosinophils (%) (Auto) 1 % (0-3) Basophils (%) (Auto) 1 % (0-3) Neutrophils # (Auto) 11.1 x10^3uL (1.8-7.7) Lymphocytes # (Auto) 1.2 x10^3/uL (1.0-4.8) Monocytes # (Auto) 0.9 x10^3/uL (0.0-1.1) Eosinophils # (Auto) 0.2 x10^3/uL (0.0-0.7) Basophils # (Auto) 0.1 x10^3/uL (0.0-0.2) Sodium Level 134 mmol/L (136-145) Potassium Level 3.7 mmol/L (3.5-5.1) Chloride Level 102 mmol/L (98-107) Carbon Dioxide Level 26 mmol/L (21-32) Anion Gap 6 (6-14) Blood Urea Nitrogen 18 mg/dL (7-20) Creatinine 0.6 mg/dL (0.6-1.0) Estimated GFR (Cockcroft-Gault) 109.6 Glucose Level 123 mg/dL (70-99) Calcium Level 7.8 mg/dL (8.5-10.1) O2 Saturation 99 % (92-99) Arterial Blood pH 7.45 (7.35-7.45) Arterial Blood pCO2 at Patient Temp 37 mmHg (35-46) Arterial Blood pO2 at Patient Temp 190 mmHg (75-108) Arterial Blood HCO3 25 mmol/L (21-28) Arterial Blood Base Excess 1 mmol/L (-3-3) FiO2 35.0 Urine Collection Type Unknown Urine Color Yellow Urine Clarity Clear Urine pH 7.0 Urine Specific [place] 1.020 Urine Protein 30 mg/dL (NEG-TRACE) Urine Glucose (UA) Negative mg/dL (NEG) Urine Ketones (Stick) Negative mg/dL (NEG) Urine Blood Moderate (NEG) Urine Nitrite Negative (NEG) Urine Bilirubin Negative (NEG) Urine Urobilinogen Dipstick 2.0 mg/dL (0.2 mg/dL) Urine Leukocyte Esterase Small (NEG) Urine RBC 20-40 /HPF (0-2) Urine WBC 5-10 /HPF (0-4) Urine Squamous Epithelial Cells Few /LPF Urine Amorphous Sediment Present /HPF Urine Bacteria 0 /HPF (0-FEW) Urine Hyaline Casts Few /HPF Urine Mucus Mod /LPF Test 09/01/16 06:00 White Blood Count 13.8 x10^3/uL (4.0-11.0) Red Blood Count 3.03 x10^6/uL (3.50-5.40) Hemoglobin 9.1 g/dL (12.0-15.5) Hematocrit 27.0 % (36.0-47.0) Mean Corpuscular Volume 89 fL (79-100) Mean Corpuscular Hemoglobin 30 pg (25-35) Mean Corpuscular Hemoglobin Concent 34 g/dL (31-37) Red Cell Distribution Width 16.9 % (11.5-14.5) Platelet Count 291 x10^3/uL (140-400) Neutrophils (%) (Auto) 84 % (31-73) Lymphocytes (%) (Auto) 9 % (24-48) Monocytes (%) (Auto) 6 % (0-9) Eosinophils (%) (Auto) 1 % (0-3) Basophils (%) (Auto) 0 % (0-3) Neutrophils # (Auto) 11.6 x10^3uL (1.8-7.7) Lymphocytes # (Auto) 1.2 x10^3/uL (1.0-4.8) Monocytes # (Auto) 0.8 x10^3/uL (0.0-1.1) Eosinophils # (Auto) 0.2 x10^3/uL (0.0-0.7) Basophils # (Auto) 0.0 x10^3/uL (0.0-0.2) Sodium Level 133 mmol/L (136-145) Potassium Level 3.6 mmol/L (3.5-5.1) Chloride Level 100 mmol/L (98-107) Carbon Dioxide Level 27 mmol/L (21-32) Anion Gap 6 (6-14) Blood Urea Nitrogen 22 mg/dL (7-20) Creatinine 0.5 mg/dL (0.6-1.0) Estimated GFR (Cockcroft-Gault) 135.3 Glucose Level 106 mg/dL (70-99) Calcium Level 7.8 mg/dL (8.5-10.1) Laboratory Tests Test 08/31/16 18:30 09/01/16 06:00 Urine Collection Type Unknown Urine Color Yellow Urine Clarity Clear Urine pH 7.0 Urine Specific [place] 1.020 Urine Protein 30 mg/dL (NEG-TRACE) Urine Glucose (UA) Negative mg/dL (NEG) Urine Ketones (Stick) Negative mg/dL (NEG) Urine Blood Moderate (NEG) Urine Nitrite Negative (NEG) Urine Bilirubin Negative (NEG) Urine Urobilinogen Dipstick 2.0 mg/dL (0.2 mg/dL) Urine Leukocyte Esterase Small (NEG) Urine RBC 20-40 /HPF (0-2) Urine WBC 5-10 /HPF (0-4) Urine Squamous Epithelial Cells Few /LPF Urine Amorphous Sediment Present /HPF Urine Bacteria 0 /HPF (0-FEW) Urine Hyaline Casts Few /HPF Urine Mucus Mod /LPF White Blood Count 13.8 x10^3/uL (4.0-11.0) Red Blood Count 3.03 x10^6/uL (3.50-5.40) Hemoglobin 9.1 g/dL (12.0-15.5) Hematocrit 27.0 % (36.0-47.0) Mean Corpuscular Volume 89 fL (79-100) Mean Corpuscular Hemoglobin 30 pg (25-35) Mean Corpuscular Hemoglobin Concent 34 g/dL (31-37) Red Cell Distribution Width 16.9 % (11.5-14.5) Platelet Count 291 x10^3/uL (140-400) Neutrophils (%) (Auto) 84 % (31-73) Lymphocytes (%) (Auto) 9 % (24-48) Monocytes (%) (Auto) 6 % (0-9) Eosinophils (%) (Auto) 1 % (0-3) Basophils (%) (Auto) 0 % (0-3) Neutrophils # (Auto) 11.6 x10^3uL (1.8-7.7) Lymphocytes # (Auto) 1.2 x10^3/uL (1.0-4.8) Monocytes # (Auto) 0.8 x10^3/uL (0.0-1.1) Eosinophils # (Auto) 0.2 x10^3/uL (0.0-0.7) Basophils # (Auto) 0.0 x10^3/uL (0.0-0.2) Sodium Level 133 mmol/L (136-145) Potassium Level 3.6 mmol/L (3.5-5.1) Chloride Level 100 mmol/L (98-107) Carbon Dioxide Level 27 mmol/L (21-32) Anion Gap 6 (6-14) Blood Urea Nitrogen 22 mg/dL (7-20) Creatinine 0.5 mg/dL (0.6-1.0) Estimated GFR (Cockcroft-Gault) 135.3 Glucose Level 106 mg/dL (70-99) Calcium Level 7.8 mg/dL (8.5-10.1) Medications Active Scripts Medications Dose Route/Sig Days Date Category No Known Medications Prior To Admisstion (Info) Each 1 Each 08/06/16 Reported Comments cxr reviewed, 08/29 Slight interval improvement in right-sided parenchymal opacities with increasing airspace opacities in the left midlung. Overall not much change as compared to the previous study. Impression . 1. Acute hypoxemic respiratory failure, multifactorial in etiology / increase secretions , repeat sputum with E-Coli 2. bilateral loculated effusions, suspected empyema, s/p bilateral chest tubes , VERY LOW GLUCOSE(9), LOW PH 3. Bilateral pulmonary nodules with cavitation, due to septic emboli. 4. Endocarditis. right sided, improving vegetations 5. ? chronic obstructive pulmonary disease. 6. Leukocytosis./fever, suspect due to empyema, bilateral 7. Anemia, ongoing 8. Thrombocytopenia. off lovenox 10. Intravenous drug abuse. 11. Tobacco habituation. 12. MSSA septicemia/pneumonia/ CHF 13. ct chest reviewed/ bilateral loculated effusion, suspect empyema, Plan . weaning as tolerated, monitor resp status closely monitor chest tube output.will dc right chest tube, cont left ct, will do a ct, to eval the need for decortication on l side s/p intra pleural TPA left side 08/29, cont suction -40 Trach secretions for c/s, E-coli, on antibiotic per ID, flagyl added antibiotics per ID, cont abx on cefepime now bronchodilators keep I<O off lovenox, continues to have low Hb and need for transfusion, on scds pepcid for prophylaxis am cxr discussed w RN/RT, pt JUAN ADDISON MD September 01, 2016 08:26
--- NOTE | 2016-09-01 08:26 | PDOC ---
Infectious Disease Note Subjective Subjective Failed swallow study, silently aspirating. Comfortable, denies pain + cough + diarrhea. Rectal tube in place Tube feedings ROS ROS GEN: Denies fevers, chills, sweats CV: Denies chest pain RESP: Denies shortness of air GI: Denies n/v NEURO: Denies confusion, dizziness Vital Sign Vital Signs Vital Signs Date Time Temp Pulse Resp B/P (MAP) Pulse Ox O2 Delivery O2 Flow Rate FiO2 09/01/16 07:09 95 Tracheal Collar 09/01/16 07:00 109 27 109/68 (82) 09/01/16 04:00 98.7 98.7 08/31/16 22:08 8.0 Physical Exam PHYSICAL EXAM GENERAL: Propped up in bed, alert, relaxed appearance, watching TV HEENT: PERRL, OC/OP pink, poor dentition NECK: Trach shield, brown-colored secretions LUNGS: + rhonchi, nonlabored. CT bilat. HEART: S1S2 ABD: Mildly distended, soft, NT. g-tube intact. + rectal tube. : [place] EXT: Generalized edema. BEHAVIORAL ASSISTANT: Alert, responds appropriately SKIN: No rash LUE-PICC. clean Labs Lab Laboratory Tests Test 08/31/16 18:30 09/01/16 06:00 Urine Collection Type Unknown Urine Color Yellow Urine Clarity Clear Urine pH 7.0 Urine Specific [place] 1.020 Urine Protein 30 mg/dL (NEG-TRACE) Urine Glucose (UA) Negative mg/dL (NEG) Urine Ketones (Stick) Negative mg/dL (NEG) Urine Blood Moderate (NEG) Urine Nitrite Negative (NEG) Urine Bilirubin Negative (NEG) Urine Urobilinogen Dipstick 2.0 mg/dL (0.2 mg/dL) Urine Leukocyte Esterase Small (NEG) Urine RBC 20-40 /HPF (0-2) Urine WBC 5-10 /HPF (0-4) Urine Squamous Epithelial Cells Few /LPF Urine Amorphous Sediment Present /HPF Urine Bacteria 0 /HPF (0-FEW) Urine Hyaline Casts Few /HPF Urine Mucus Mod /LPF White Blood Count 13.8 x10^3/uL (4.0-11.0) Red Blood Count 3.03 x10^6/uL (3.50-5.40) Hemoglobin 9.1 g/dL (12.0-15.5) Hematocrit 27.0 % (36.0-47.0) Mean Corpuscular Volume 89 fL (79-100) Mean Corpuscular Hemoglobin 30 pg (25-35) Mean Corpuscular Hemoglobin Concent 34 g/dL (31-37) Red Cell Distribution Width 16.9 % (11.5-14.5) Platelet Count 291 x10^3/uL (140-400) Neutrophils (%) (Auto) 84 % (31-73) Lymphocytes (%) (Auto) 9 % (24-48) Monocytes (%) (Auto) 6 % (0-9) Eosinophils (%) (Auto) 1 % (0-3) Basophils (%) (Auto) 0 % (0-3) Neutrophils # (Auto) 11.6 x10^3uL (1.8-7.7) Lymphocytes # (Auto) 1.2 x10^3/uL (1.0-4.8) Monocytes # (Auto) 0.8 x10^3/uL (0.0-1.1) Eosinophils # (Auto) 0.2 x10^3/uL (0.0-0.7) Basophils # (Auto) 0.0 x10^3/uL (0.0-0.2) Sodium Level 133 mmol/L (136-145) Potassium Level 3.6 mmol/L (3.5-5.1) Chloride Level 100 mmol/L (98-107) Carbon Dioxide Level 27 mmol/L (21-32) Anion Gap 6 (6-14) Blood Urea Nitrogen 22 mg/dL (7-20) Creatinine 0.5 mg/dL (0.6-1.0) Estimated GFR (Cockcroft-Gault) 135.3 Glucose Level 106 mg/dL (70-99) Calcium Level 7.8 mg/dL (8.5-10.1) Objective Assessment Loculated pleural effusions- S/p Bilat Chest tubes 08/26. Ecoli in sputum (08/22) Fever ? PRBCs better C-diff neg Leukocytosis - stable Acute anemia s/p PRBCs, 08/16, 08/20, 08/27 S/p Trach/PEG 08/13 MSSA sepsis 08/01 ([facility]) -Repeat BC positive, 08/05 & 08/07. Neg 08/09 Right-sided bacterial endocarditis. -TTE. 3.0 x 2.0cm mobile mass TV Multiple pulmonary nodules/septic emboli Acute Resp failure - Intubated ? developing ARDS. S/p Bronch 08/08. MSSA. s/p Trach IV drug use. Hep C Ileus Renal insufficiency. Severe thrombocytopenia. improved Hepatosplenomegaly on CT Plan Plan of Care Trial of Flagyl to r/o anaerobes in loculation given stalling of WBC but may just be from loculation Await to see if decortication is necessary Nafcillin changed to cefepime to cover for Ecoli in sputum Patient will need a total of six weeks of IV abx to treat endocarditis/ bacteremia Monitor WBC, temp Supportive care Patient seen and examined. Chart reviewed. Case discussed with [employer]. Agree with above plan JAZMIN SOUSA APRN September 01, 2016 08:26 JAY LAWLRE MD September 01, 2016 16:19
--- NOTE | 2016-09-01 09:25 | RAD ---
Examination: Single frontal view the chest History: History of right chest tube removal. Comparison: 09/01/2016 Findings: Tracheostomy tube in place. Left-sided PICC line is unchanged. Interval removal of right-sided pigtail catheter. Left lung base airspace opacity likely atelectasis or infiltrate and small effusion is similar to prior exam. Left-sided pigtail catheter is unchanged. Prominent bilateral interstitial lung markings likely mild congestive changes with patchy infiltrates in the lungs grossly similar to prior exam. Impression: 1. Interval removal of right-sided pigtail catheter. Otherwise unchanged exam.
--- NOTE | 2016-09-01 09:26 | RAD ---
Examination: Single frontal view the chest History: History of respiratory failure, empyema Comparison: 08/31/2016 Findings: Tracheostomy tube in place. Left-sided PICC line is unchanged. Pigtail tail catheter is identified in the bibasal lungs grossly similar to prior exam. Left lung base airspace opacity likely atelectasis or pneumonia and small effusion similar to prior exam. There is mild prominence of bilateral interstitial lung markings likely mild congestive changes. Impression: Unchanged exam
[2016-09-01] MEDS: FERROUS SULFATE ORAL 300 MG/5 ML SOLUTION. FT SCH (10:01)
[2016-09-01] MEDS: metroNIDAZOLE 500 MG TABLET PEG SCH ×2 (10:01→21:10)
[2016-09-01] MEDS: ALPRAZolam 0.5 MG TABLET PEG SCH ×3 (10:01→21:10)
[2016-09-01] MEDS: LANSOPRAZOLE 30 MG TAB.RAP.DR FT SCH ×2 (10:01→15:25)
[2016-09-01] MEDS: CHLORHEXIDINE 0.12% 15 ML MOUTHWASH. SWSP SCH ×2 (10:01→21:11)
[2016-09-01] MEDS: NYSTATIN TOPICAL POWDER 15GM BOTTLE. TP SCH ×2 (10:02→21:11)
--- NOTE | 2016-09-01 10:58 | PDOC ---
PROGRESS NOTES Chief Complaint Chief Complaint Sepsis Acute hypoxic respir failure ASSESSMENT AND PLAN: 1. Sepsis: resolved 2. 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 MSSA. on cefepime (to cover E.coli as well) 3. PNA: septic emboli. sputum now with heavy growth E.coli. bilat effusions suspicious for empyemas. s/p bilat CT placement 08/26, tPA on L. R CT d/c.ed today. CT chest pending 4. Acute respir failure: trached, vent weaned to trach shield. obtain speech path on Fri 5. Diarrhea: massive, albeit improving per RN. RT in place. C.diff neg. prob due to TF - changed today due to unavailability of desired formula. start questran 6. Anemia: severe, recurrent: prob multifactorial, incl severe inflammation, HCV toxicity. inflammation confirmed by iron studies. b12/folate pending. on daily low dose Fe 7. Thrombocytopenia: 2/2 infection, now resolved. monitor 8. [place]: resolved 9. Hep C: new dx during current admit. F/U on O/P basis for rx 10. Polysubstance abuse: switched to oxy q4PRN. with ongoing pain issues ( tubes, etc), pain is present and will require higher than normal doses due to her previous narcotic abuse. wean when CTs d/c.ed 11. Agitation: on seroquel, Xanax. Haldol PRN 12. Malnutrition: severe, POA, weight loss prior to admit, albumin critically low. suspect large component of inflammation as well. PEG feeds changed History of Present Illness History of Present Illness abd discomfort, no pain. wants to eat! Vitals Vitals Vital Signs Date Time Temp Pulse Resp B/P (MAP) Pulse Ox O2 Delivery O2 Flow Rate FiO2 09/01/16 10:02 21 95 T-Tube 8.0 09/01/16 07:00 109 109/68 (82) 09/01/16 04:00 98.7 98.7 Physical Exam General: Alert, Cooperative, No acute distress Heart: Normal S1, Normal S2, No murmurs Lungs: Crackles, Other (b lat ct) Abdomen: Normal bowel sounds, Other (Hepatosplenomegaly present) Extremities: No cyanosis, Other (1+ edema) Skin: No breakdown, No significant lesion Labs LABS Laboratory Tests Test 08/31/16 18:30 09/01/16 06:00 Urine Collection Type Unknown Urine Color Yellow Urine Clarity Clear Urine pH 7.0 Urine Specific [place] 1.020 Urine Protein 30 mg/dL (NEG-TRACE) Urine Glucose (UA) Negative mg/dL (NEG) Urine Ketones (Stick) Negative mg/dL (NEG) Urine Blood Moderate (NEG) Urine Nitrite Negative (NEG) Urine Bilirubin Negative (NEG) Urine Urobilinogen Dipstick 2.0 mg/dL (0.2 mg/dL) Urine Leukocyte Esterase Small (NEG) Urine RBC 20-40 /HPF (0-2) Urine WBC 5-10 /HPF (0-4) Urine Squamous Epithelial Cells Few /LPF Urine Amorphous Sediment Present /HPF Urine Bacteria 0 /HPF (0-FEW) Urine Hyaline Casts Few /HPF Urine Mucus Mod /LPF White Blood Count 13.8 x10^3/uL (4.0-11.0) Red Blood Count 3.03 x10^6/uL (3.50-5.40) Hemoglobin 9.1 g/dL (12.0-15.5) Hematocrit 27.0 % (36.0-47.0) Mean Corpuscular Volume 89 fL (79-100) Mean Corpuscular Hemoglobin 30 pg (25-35) Mean Corpuscular Hemoglobin Concent 34 g/dL (31-37) Red Cell Distribution Width 16.9 % (11.5-14.5) Platelet Count 291 x10^3/uL (140-400) Neutrophils (%) (Auto) 84 % (31-73) Lymphocytes (%) (Auto) 9 % (24-48) Monocytes (%) (Auto) 6 % (0-9) Eosinophils (%) (Auto) 1 % (0-3) Basophils (%) (Auto) 0 % (0-3) Neutrophils # (Auto) 11.6 x10^3uL (1.8-7.7) Lymphocytes # (Auto) 1.2 x10^3/uL (1.0-4.8) Monocytes # (Auto) 0.8 x10^3/uL (0.0-1.1) Eosinophils # (Auto) 0.2 x10^3/uL (0.0-0.7) Basophils # (Auto) 0.0 x10^3/uL (0.0-0.2) Sodium Level 133 mmol/L (136-145) Potassium Level 3.6 mmol/L (3.5-5.1) Chloride Level 100 mmol/L (98-107) Carbon Dioxide Level 27 mmol/L (21-32) Anion Gap 6 (6-14) Blood Urea Nitrogen 22 mg/dL (7-20) Creatinine 0.5 mg/dL (0.6-1.0) Estimated GFR (Cockcroft-Gault) 135.3 Glucose Level 106 mg/dL (70-99) Calcium Level 7.8 mg/dL (8.5-10.1) Nutrition Consultation Dietary Evaluation: Recommendations by RD: PPN/TPN Comments: Pt is s/p PEG placement 08/14 -TF's ordered per MD: Nutrihep, goal 50 ml/hr (sub with isosource HN until Nutrihep is available) -Flushes 150 cc q6h -4 Prostat/day (2 in the morning, 2 in the evening) Expected Outcomes/Goals: Tolerate the TF's at goal rate- met Meet > 75% estimated nutrition needs - met Interpretation of weight loss: >7.5% in 3 months Malnutrition Findings: Reduced Fur Tanner Strength: N/A Reduced Fur Tanner Strength (Non-Sev: N/A Malnutrition related to morbid: No Weight Status: Overweight Fluid Accumulation (N/A): N/A JUANITO PRETTY MD September 01, 2016 10:58
[2016-09-01] MEDS: CHOLESTYRAMINE/ASPARTAME 4 GM PACKET PO SCH ×4 (12:52→22:49)
--- NOTE | 2016-09-01 17:42 | RAD ---
PROCEDURE Chest CT without contrast HISTORY Empyema. TECHNIQUE Noncontrast helical CT scanning of the chest was performed. Without IV contrast, the sensitivity to detect organ pathology is decreased. One or more of the following individualized dose reduction techniques were utilized for this study: 1. Automated exposure control 2. Adjustment of the mA and/or kV according to patient size 3. Use of iterative reconstruction technique COMPARISON August 25, 2016 FINDINGS Mediastinal lymphadenopathy is again evident. The heart size is enlarged. Again seen are bilateral pleural effusions which are significantly smaller in size. A left lower posterior chest tube has been placed in the interim. There is persistent complete left lower lobe lung consolidation. Cavitary areas are seen within the left lower lobe lung consolidation which were seen previously. Again seen is a left upper lobe lung infiltrate with cavitation which has not changed significantly. There is a new air-fluid collection within a loculated portion of the left-sided pleural effusion medially within the upper aspect. Air-fluid level may be secondary to placement of the pleural chest tube on the left side. Again seen are cavitary nodules of the right upper lobe. Inflammation around the more prominent lateral right upper lobe cavitary nodule has improved. Otherwise the size of the cavitary nodules is unchanged. Again seen are additional non cavitary nodules of the right upper lobe and right middle lobe which are unchanged. Again seen is right lower lobe infiltrate with air bronchograms which has improved. This may be due to improved aeration of the right lower lobe related to the decrease in the size of the right-sided pleural effusion. There is some atelectasis of the right middle lobe. ET tube tip is located 3 centimeters above the level of the sundar. The adrenal glands are not seen in this study. No osteolytic process is seen. IMPRESSION Significant improvement in left-sided pleural fluid collection after placement of a left sided pleural chest tube. Significant improvement in right-sided pleural effusion with significant improved aeration of the right lower lobe as a result. Bilateral cavitary nodules and lung infiltrates as discussed above. Electronically signed by: Daquan Erazo MD (September 01, 2016 17:40:37)
[2016-09-01] MEDS: QUEtiapine 25 MG TABLET. PO SCH (21:10)
[2016-09-02] VITALS (22 sets, daily range): BP systolic 90–120; BP diastolic 58–85
[2016-09-02] MEDS: oxyCODONE IR 5 MG TABLET PO PRN ×4 (02:00→17:52)
[2016-09-02] MEDS: CEFEPIME HCL 1 GM in IV NORMAL SALINE 50ML 50 ML IV SCH ×3 (06:07→22:29)
[2016-09-02 06:25] LABS: BASO % 0 % (0-3); EOS % 3 % (0-3); HEMATOCRIT 27.7 % (36.0-47.0); HEMOGLOBIN 9.5 g/dL (12.0-15.5); LYMPH # 1.1 x10^3/uL (1.0-4.8); LYMPH % 10 % (24-48); MEAN CORPUSCULAR HEMOGLOBIN 30 pg (25-35); MEAN CORPUSCULAR HGB CONC 34 g/dL (31-37); MEAN CORPUSCULAR VOLUME 88 fL (79-100); MONO % 6 % (0-9); NEUT % 81 % (31-73); PLATELET COUNT 284 x10^3/uL (140-400); RED BLOOD COUNT 3.14 x10^6/uL (3.50-5.40); RED CELL DISTRIBUTION WIDTH 16.8 % (11.5-14.5); WHITE BLOOD COUNT 11.6 x10^3/uL (4.0-11.0)
[2016-09-02 06:27] LABS: CREATININE 0.4 mg/dL (0.6-1.0); POTASSIUM 3.8 mmol/L (3.5-5.1)
--- NOTE | 2016-09-02 07:20 | RAD ---
Portable chest, 09/02/2016: History: Respiratory failure, chest tube in place Comparison is made to yesterday's study. The tracheostomy tube is unchanged in position. A left PICC extends into the right atrium. A pigtail pleural drain is present in the left lower chest. The heart size is unchanged. There are persistent patchy bilateral pulmonary opacities, due to known pulmonary infiltrates and nodules. The greatest infiltrate lies in the left base. There is unchanged pleural thickening bilaterally. There is no evidence of pneumothorax. No new abnormality is seen. IMPRESSION: No significant change since yesterday's study.
--- NOTE | 2016-09-02 07:35 | PDOC ---
Infectious Disease Note Subjective Subjective Failed swallow study, silently aspirating. Comfortable, denies pain + cough + diarrhea. Rectal tube in place Tube feedings ROS ROS GEN: Denies fevers, chills, sweats HEENT: Denies blurred vision, sore throat CV: Denies chest pain RESP: Denies shortness of air, cough GI: Denies n/v/d NEURO: Denies confusion, dizziness MSK: Denies weakness, joint pain/swelling Vital Sign Vital Signs Vital Signs Date Time Temp Pulse Resp B/P (MAP) Pulse Ox O2 Delivery O2 Flow Rate FiO2 09/02/16 06:32 24 97 8.0 09/02/16 06:00 100 116/85 (95) Trach Shield 09/02/16 04:00 97.5 97.5 Physical Exam PHYSICAL EXAM GENERAL: Propped up in bed, alert, relaxed appearance, watching TV HEENT: PERRL, OC/OP pink, poor dentition NECK: Trach shield, brown-colored secretions LUNGS: + rhonchi, nonlabored. CT -left. HEART: S1S2 ABD: Mildly distended, soft, NT. g-tube intact. + rectal tube. : [place] EXT: Generalized edema. SCHEDULE CHECKER: Alert, responds appropriately SKIN: No rash LUE-PICC. clean Labs Lab Laboratory Tests Test 09/02/16 05:37 White Blood Count 11.6 x10^3/uL (4.0-11.0) Red Blood Count 3.14 x10^6/uL (3.50-5.40) Hemoglobin 9.5 g/dL (12.0-15.5) Hematocrit 27.7 % (36.0-47.0) Mean Corpuscular Volume 88 fL (79-100) Mean Corpuscular Hemoglobin 30 pg (25-35) Mean Corpuscular Hemoglobin Concent 34 g/dL (31-37) Red Cell Distribution Width 16.8 % (11.5-14.5) Platelet Count 284 x10^3/uL (140-400) Neutrophils (%) (Auto) 81 % (31-73) Lymphocytes (%) (Auto) 10 % (24-48) Monocytes (%) (Auto) 6 % (0-9) Eosinophils (%) (Auto) 3 % (0-3) Basophils (%) (Auto) 0 % (0-3) Neutrophils # (Auto) 9.4 x10^3uL (1.8-7.7) Lymphocytes # (Auto) 1.1 x10^3/uL (1.0-4.8) Monocytes # (Auto) 0.7 x10^3/uL (0.0-1.1) Eosinophils # (Auto) 0.3 x10^3/uL (0.0-0.7) Basophils # (Auto) 0.0 x10^3/uL (0.0-0.2) Sodium Level 133 mmol/L (136-145) Potassium Level 3.8 mmol/L (3.5-5.1) Chloride Level 100 mmol/L (98-107) Carbon Dioxide Level 28 mmol/L (21-32) Anion Gap 5 (6-14) Blood Urea Nitrogen 17 mg/dL (7-20) Creatinine 0.4 mg/dL (0.6-1.0) Estimated GFR (Cockcroft-Gault) 175.0 Glucose Level 110 mg/dL (70-99) Calcium Level 8.0 mg/dL (8.5-10.1) Objective Assessment Loculated pleural effusions- S/p Bilat Chest tubes 08/26. Right tube out Ecoli in sputum (08/22) Fever ? PRBCs better C-diff neg. better Leukocytosis - better Acute anemia s/p PRBCs, 08/16, 08/20, 08/27 S/p Trach/PEG 08/13 MSSA sepsis 08/01 ([facility]) -Repeat BC positive, 08/05 & 08/07. Neg 08/09 Right-sided bacterial endocarditis. -TTE. 3.0 x 2.0cm mobile mass TV Multiple pulmonary nodules/septic emboli Acute Resp failure - Intubated ? developing ARDS. S/p Bronch 08/08. MSSA. Trach IV drug use. Hep C Ileus Renal insufficiency. Severe thrombocytopenia. improved Hepatosplenomegaly on CT Plan Plan of Care Trial of Flagyl to r/o anaerobes in loculation given stalling of WBC but may just be from loculation Await to see if decortication is necessary Nafcillin changed to cefepime to cover for Ecoli in sputum Patient will need a total of six weeks of IV abx to treat endocarditis/ bacteremia Monitor WBC, temp Supportive care KAYLYNN SHAY MD September 02, 2016 07:35
[2016-09-02] MEDS: IPRATRPIUM/ALBUTEROL 0.5/2.5MG 3 ML NEBU. NEB SCH ×4 (07:54→20:26)
[2016-09-02] MEDS: BUDESONIDE 0.5 MG/2 ML NEBU. NEB SCH ×2 (07:54→20:26)
[2016-09-02] MEDS: CHLORHEXIDINE 0.12% 15 ML MOUTHWASH. SWSP SCH ×2 (10:21→20:38)
[2016-09-02] MEDS: FERROUS SULFATE ORAL 300 MG/5 ML SOLUTION. FT SCH (10:21)
[2016-09-02] MEDS: NYSTATIN TOPICAL POWDER 15GM BOTTLE. TP SCH ×2 (10:22→20:46)
[2016-09-02] MEDS: metroNIDAZOLE 500 MG TABLET PEG SCH ×2 (10:22→20:38)
[2016-09-02] MEDS: CHOLESTYRAMINE/ASPARTAME 4 GM PACKET PO SCH ×4 (10:22→22:29)
[2016-09-02] MEDS: ALPRAZolam 0.5 MG TABLET PEG SCH ×3 (10:22→20:38)
[2016-09-02] MEDS: LANSOPRAZOLE 30 MG TAB.RAP.DR FT SCH ×2 (10:22→17:53)
[2016-09-02] MEDS: oxyCODONE/APAP 5/325 1 TAB TABLET PO PRN (10:36)
--- NOTE | 2016-09-02 10:47 | PDOC ---
PROGRESS NOTES Chief Complaint Chief Complaint Sepsis Acute hypoxic respir failure ASSESSMENT AND PLAN: 1. Sepsis: resolved 2. 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 MSSA. on cefepime (to cover E.coli as well) 3. PNA: septic emboli. sputum now with heavy growth E.coli. cavitary lesions 4. 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 rpt CT chest on 08/31 with improvement. Flagyl added as per Dr Will 5. Acute respir failure: trached, vent weaned to trach shield. failed swallow study with silent aspir on 08/31. speech path "rehab" 6. Diarrhea: massive, albeit improving per RN. RT in place. C.diff neg. prob due to TF - changed. on questran 7. Anemia: severe, recurrent: multifactorial, incl severe inflammation, HCV toxicity. inflammation confirmed by iron studies. b12/folate pending. on daily low dose Fe 8. Thrombocytopenia: 2/2 infection, now resolved. monitor 9. [place]: resolved 10. Hep C: new dx during current admit. F/U on O/P basis for rx 11. Polysubstance abuse: switched to oxy q4PRN. with ongoing pain issues ( tubes, etc), wean 12. Agitation: on seroquel, Xanax. Haldol PRN 13. Malnutrition: severe, POA, weight loss prior to admit, albumin critically low. suspect large component of inflammation as well. PEG feeds changed History of Present Illness History of Present Illness abd discomfort, no pain. in good spirits Vitals Vitals Vital Signs Date Time Temp Pulse Resp B/P (MAP) Pulse Ox O2 Delivery O2 Flow Rate FiO2 09/02/16 09:00 101 24 111/70 (84) 100 Trach Shield 8.0 09/02/16 08:00 99.0 99.0 Physical Exam General: Alert, Cooperative, No acute distress Heart: Normal S1, Normal S2, No murmurs Lungs: Crackles, Other (b lat ct) Abdomen: Normal bowel sounds, Other (Hepatosplenomegaly present) Extremities: No cyanosis, Other (1+ edema) Skin: No breakdown, No significant lesion Labs LABS Laboratory Tests Test 09/02/16 05:37 White Blood Count 11.6 x10^3/uL (4.0-11.0) Red Blood Count 3.14 x10^6/uL (3.50-5.40) Hemoglobin 9.5 g/dL (12.0-15.5) Hematocrit 27.7 % (36.0-47.0) Mean Corpuscular Volume 88 fL (79-100) Mean Corpuscular Hemoglobin 30 pg (25-35) Mean Corpuscular Hemoglobin Concent 34 g/dL (31-37) Red Cell Distribution Width 16.8 % (11.5-14.5) Platelet Count 284 x10^3/uL (140-400) Neutrophils (%) (Auto) 81 % (31-73) Lymphocytes (%) (Auto) 10 % (24-48) Monocytes (%) (Auto) 6 % (0-9) Eosinophils (%) (Auto) 3 % (0-3) Basophils (%) (Auto) 0 % (0-3) Neutrophils # (Auto) 9.4 x10^3uL (1.8-7.7) Lymphocytes # (Auto) 1.1 x10^3/uL (1.0-4.8) Monocytes # (Auto) 0.7 x10^3/uL (0.0-1.1) Eosinophils # (Auto) 0.3 x10^3/uL (0.0-0.7) Basophils # (Auto) 0.0 x10^3/uL (0.0-0.2) Sodium Level 133 mmol/L (136-145) Potassium Level 3.8 mmol/L (3.5-5.1) Chloride Level 100 mmol/L (98-107) Carbon Dioxide Level 28 mmol/L (21-32) Anion Gap 5 (6-14) Blood Urea Nitrogen 17 mg/dL (7-20) Creatinine 0.4 mg/dL (0.6-1.0) Estimated GFR (Cockcroft-Gault) 175.0 Glucose Level 110 mg/dL (70-99) Calcium Level 8.0 mg/dL (8.5-10.1) Comment Review of Relevant Labs Medications Vitals/I & O Nutrition Consultation Dietary Evaluation: Recommendations by RD: PPN/TPN Comments: Pt is s/p PEG placement 08/14 -TF's ordered per MD: Nutrihep, goal 50 ml/hr (sub with isosource HN until Nutrihep is available) -Flushes 150 cc q6h -4 Prostat/day (2 in the morning, 2 in the evening) Expected Outcomes/Goals: Tolerate the TF's at goal rate- met Meet > 75% estimated nutrition needs - met Interpretation of weight loss: >7.5% in 3 months Malnutrition Findings: Reduced Reserve Officer Strength: N/A Reduced Reserve Officer Strength (Non-Sev: N/A Malnutrition related to morbid: No Weight Status: Overweight Fluid Accumulation (N/A): N/A JUANITO PRETTY MD September 02, 2016 10:47
--- NOTE | 2016-09-02 11:13 | PDOC ---
PULMONARY PROGRESS NOTES Subjective off vent 24 hrs s/p bilateral chest tubes, one removed few days ago from right s/p intra pleural TPA left side 08/28, 08/29 Vitals Vital Signs Date Time Temp Pulse Resp B/P (MAP) Pulse Ox O2 Delivery O2 Flow Rate FiO2 09/02/16 10:36 21 100 trach shield 8.0 09/02/16 09:00 101 111/70 (84) 09/02/16 08:00 99.0 99.0 Comments ros as mentioned as above other sys otherwise neg ROS: No Chest Pain, No Abdominal Pain General: Alert, No acute distress HEENT: Other (nc at perrl. poor dentition, nose clear) Lungs: Other (decrease bs) Cardiovascular: S1, S2, Other Abdomen: Soft, Non-tender, Other (no mass) Neuro Exam: Alert, Oriented Extremities: Other (edema) Skin: Warm Labs Laboratory Tests Test 08/31/16 18:30 09/01/16 06:00 09/02/16 05:37 Urine Collection Type Unknown Urine Color Yellow Urine Clarity Clear Urine pH 7.0 Urine Specific Breese 1.020 Urine Protein 30 mg/dL (NEG-TRACE) Urine Glucose (UA) Negative mg/dL (NEG) Urine Ketones (Stick) Negative mg/dL (NEG) Urine Blood Moderate (NEG) Urine Nitrite Negative (NEG) Urine Bilirubin Negative (NEG) Urine Urobilinogen Dipstick 2.0 mg/dL (0.2 mg/dL) Urine Leukocyte Esterase Small (NEG) Urine RBC 20-40 /HPF (0-2) Urine WBC 5-10 /HPF (0-4) Urine Squamous Epithelial Cells Few /LPF Urine Amorphous Sediment Present /HPF Urine Bacteria 0 /HPF (0-FEW) Urine Hyaline Casts Few /HPF Urine Mucus Mod /LPF White Blood Count 13.8 x10^3/uL (4.0-11.0) 11.6 x10^3/uL (4.0-11.0) Red Blood Count 3.03 x10^6/uL (3.50-5.40) 3.14 x10^6/uL (3.50-5.40) Hemoglobin 9.1 g/dL (12.0-15.5) 9.5 g/dL (12.0-15.5) Hematocrit 27.0 % (36.0-47.0) 27.7 % (36.0-47.0) Mean Corpuscular Volume 89 fL (79-100) 88 fL (79-100) Mean Corpuscular Hemoglobin 30 pg (25-35) 30 pg (25-35) Mean Corpuscular Hemoglobin Concent 34 g/dL (31-37) 34 g/dL (31-37) Red Cell Distribution Width 16.9 % (11.5-14.5) 16.8 % (11.5-14.5) Platelet Count 291 x10^3/uL (140-400) 284 x10^3/uL (140-400) Neutrophils (%) (Auto) 84 % (31-73) 81 % (31-73) Lymphocytes (%) (Auto) 9 % (24-48) 10 % (24-48) Monocytes (%) (Auto) 6 % (0-9) 6 % (0-9) Eosinophils (%) (Auto) 1 % (0-3) 3 % (0-3) Basophils (%) (Auto) 0 % (0-3) 0 % (0-3) Neutrophils # (Auto) 11.6 x10^3uL (1.8-7.7) 9.4 x10^3uL (1.8-7.7) Lymphocytes # (Auto) 1.2 x10^3/uL (1.0-4.8) 1.1 x10^3/uL (1.0-4.8) Monocytes # (Auto) 0.8 x10^3/uL (0.0-1.1) 0.7 x10^3/uL (0.0-1.1) Eosinophils # (Auto) 0.2 x10^3/uL (0.0-0.7) 0.3 x10^3/uL (0.0-0.7) Basophils # (Auto) 0.0 x10^3/uL (0.0-0.2) 0.0 x10^3/uL (0.0-0.2) Sodium Level 133 mmol/L (136-145) 133 mmol/L (136-145) Potassium Level 3.6 mmol/L (3.5-5.1) 3.8 mmol/L (3.5-5.1) Chloride Level 100 mmol/L (98-107) 100 mmol/L (98-107) Carbon Dioxide Level 27 mmol/L (21-32) 28 mmol/L (21-32) Anion Gap 6 (6-14) 5 (6-14) Blood Urea Nitrogen 22 mg/dL (7-20) 17 mg/dL (7-20) Creatinine 0.5 mg/dL (0.6-1.0) 0.4 mg/dL (0.6-1.0) Estimated GFR (Cockcroft-Gault) 135.3 175.0 Glucose Level 106 mg/dL (70-99) 110 mg/dL (70-99) Calcium Level 7.8 mg/dL (8.5-10.1) 8.0 mg/dL (8.5-10.1) Laboratory Tests Test 09/02/16 05:37 White Blood Count 11.6 x10^3/uL (4.0-11.0) Red Blood Count 3.14 x10^6/uL (3.50-5.40) Hemoglobin 9.5 g/dL (12.0-15.5) Hematocrit 27.7 % (36.0-47.0) Mean Corpuscular Volume 88 fL (79-100) Mean Corpuscular Hemoglobin 30 pg (25-35) Mean Corpuscular Hemoglobin Concent 34 g/dL (31-37) Red Cell Distribution Width 16.8 % (11.5-14.5) Platelet Count 284 x10^3/uL (140-400) Neutrophils (%) (Auto) 81 % (31-73) Lymphocytes (%) (Auto) 10 % (24-48) Monocytes (%) (Auto) 6 % (0-9) Eosinophils (%) (Auto) 3 % (0-3) Basophils (%) (Auto) 0 % (0-3) Neutrophils # (Auto) 9.4 x10^3uL (1.8-7.7) Lymphocytes # (Auto) 1.1 x10^3/uL (1.0-4.8) Monocytes # (Auto) 0.7 x10^3/uL (0.0-1.1) Eosinophils # (Auto) 0.3 x10^3/uL (0.0-0.7) Basophils # (Auto) 0.0 x10^3/uL (0.0-0.2) Sodium Level 133 mmol/L (136-145) Potassium Level 3.8 mmol/L (3.5-5.1) Chloride Level 100 mmol/L (98-107) Carbon Dioxide Level 28 mmol/L (21-32) Anion Gap 5 (6-14) Blood Urea Nitrogen 17 mg/dL (7-20) Creatinine 0.4 mg/dL (0.6-1.0) Estimated GFR (Cockcroft-Gault) 175.0 Glucose Level 110 mg/dL (70-99) Calcium Level 8.0 mg/dL (8.5-10.1) Medications Active Scripts Medications Dose Route/Sig Days Date Category No Known Medications Prior To Admisstion (Info) Each 1 Each 08/06/16 Reported Comments cxr reviewed, 08/29 Slight interval improvement in right-sided parenchymal opacities with increasing airspace opacities in the left midlung. Overall not much change as compared to the previous study. Impression . 1. Acute hypoxemic respiratory failure, multifactorial in etiology / increase secretions , repeat sputum with E-Coli 2. bilateral loculated effusions, suspected empyema, s/p bilateral chest tubes , VERY LOW GLUCOSE(9), LOW PH 3. Bilateral pulmonary nodules with cavitation, due to septic emboli. 4. Endocarditis. right sided, improving vegetations 5. ? chronic obstructive pulmonary disease. 6. Leukocytosis./fever, suspect due to empyema, bilateral 7. Anemia, ongoing 8. Thrombocytopenia. off lovenox 10. Intravenous drug abuse. 11. Tobacco habituation. 12. MSSA septicemia/pneumonia/ CHF 13. ct chest reviewed/ bilateral loculated effusion, suspect empyema, sig improvement post TPA on left Plan . T-PIECE 24 hrs dc left chest tube today s/p intra pleural TPA left side Overall left empyema has sig. improved ,only small LL pockets. will remove left chest tube Trach secretions for c/s, E-coli, on antibiotic per ID, flagyl added antibiotics per ID, bronchodilators keep I<O off lovenox, continues to have low Hb and need for transfusion, on scds pepcid for prophylaxis discussed w RN/RT, pt CARLEY WORKMAN MD September 02, 2016 11:13
--- NOTE | 2016-09-02 13:54 | PDOC ---
G I PROGRESS NOTE Subjective Denies abdominal issues. Objective By all reports, tolerating tube feeding. Physical Exam Abdomen soft, not tender nor distended. Review of Relevant I have reviewed the following items shanta (where applicable) has been applied. Labs Laboratory Tests Test 08/31/16 18:30 09/01/16 06:00 09/02/16 05:37 Urine Collection Type Unknown Urine Color Yellow Urine Clarity Clear Urine pH 7.0 Urine Specific [place] 1.020 Urine Protein 30 mg/dL (NEG-TRACE) Urine Glucose (UA) Negative mg/dL (NEG) Urine Ketones (Stick) Negative mg/dL (NEG) Urine Blood Moderate (NEG) Urine Nitrite Negative (NEG) Urine Bilirubin Negative (NEG) Urine Urobilinogen Dipstick 2.0 mg/dL (0.2 mg/dL) Urine Leukocyte Esterase Small (NEG) Urine RBC 20-40 /HPF (0-2) Urine WBC 5-10 /HPF (0-4) Urine Squamous Epithelial Cells Few /LPF Urine Amorphous Sediment Present /HPF Urine Bacteria 0 /HPF (0-FEW) Urine Hyaline Casts Few /HPF Urine Mucus Mod /LPF White Blood Count 13.8 x10^3/uL (4.0-11.0) 11.6 x10^3/uL (4.0-11.0) Red Blood Count 3.03 x10^6/uL (3.50-5.40) 3.14 x10^6/uL (3.50-5.40) Hemoglobin 9.1 g/dL (12.0-15.5) 9.5 g/dL (12.0-15.5) Hematocrit 27.0 % (36.0-47.0) 27.7 % (36.0-47.0) Mean Corpuscular Volume 89 fL (79-100) 88 fL (79-100) Mean Corpuscular Hemoglobin 30 pg (25-35) 30 pg (25-35) Mean Corpuscular Hemoglobin Concent 34 g/dL (31-37) 34 g/dL (31-37) Red Cell Distribution Width 16.9 % (11.5-14.5) 16.8 % (11.5-14.5) Platelet Count 291 x10^3/uL (140-400) 284 x10^3/uL (140-400) Neutrophils (%) (Auto) 84 % (31-73) 81 % (31-73) Lymphocytes (%) (Auto) 9 % (24-48) 10 % (24-48) Monocytes (%) (Auto) 6 % (0-9) 6 % (0-9) Eosinophils (%) (Auto) 1 % (0-3) 3 % (0-3) Basophils (%) (Auto) 0 % (0-3) 0 % (0-3) Neutrophils # (Auto) 11.6 x10^3uL (1.8-7.7) 9.4 x10^3uL (1.8-7.7) Lymphocytes # (Auto) 1.2 x10^3/uL (1.0-4.8) 1.1 x10^3/uL (1.0-4.8) Monocytes # (Auto) 0.8 x10^3/uL (0.0-1.1) 0.7 x10^3/uL (0.0-1.1) Eosinophils # (Auto) 0.2 x10^3/uL (0.0-0.7) 0.3 x10^3/uL (0.0-0.7) Basophils # (Auto) 0.0 x10^3/uL (0.0-0.2) 0.0 x10^3/uL (0.0-0.2) Sodium Level 133 mmol/L (136-145) 133 mmol/L (136-145) Potassium Level 3.6 mmol/L (3.5-5.1) 3.8 mmol/L (3.5-5.1) Chloride Level 100 mmol/L (98-107) 100 mmol/L (98-107) Carbon Dioxide Level 27 mmol/L (21-32) 28 mmol/L (21-32) Anion Gap 6 (6-14) 5 (6-14) Blood Urea Nitrogen 22 mg/dL (7-20) 17 mg/dL (7-20) Creatinine 0.5 mg/dL (0.6-1.0) 0.4 mg/dL (0.6-1.0) Estimated GFR (Cockcroft-Gault) 135.3 175.0 Glucose Level 106 mg/dL (70-99) 110 mg/dL (70-99) Calcium Level 7.8 mg/dL (8.5-10.1) 8.0 mg/dL (8.5-10.1) Laboratory Tests Test 09/02/16 05:37 White Blood Count 11.6 x10^3/uL (4.0-11.0) Red Blood Count 3.14 x10^6/uL (3.50-5.40) Hemoglobin 9.5 g/dL (12.0-15.5) Hematocrit 27.7 % (36.0-47.0) Mean Corpuscular Volume 88 fL (79-100) Mean Corpuscular Hemoglobin 30 pg (25-35) Mean Corpuscular Hemoglobin Concent 34 g/dL (31-37) Red Cell Distribution Width 16.8 % (11.5-14.5) Platelet Count 284 x10^3/uL (140-400) Neutrophils (%) (Auto) 81 % (31-73) Lymphocytes (%) (Auto) 10 % (24-48) Monocytes (%) (Auto) 6 % (0-9) Eosinophils (%) (Auto) 3 % (0-3) Basophils (%) (Auto) 0 % (0-3) Neutrophils # (Auto) 9.4 x10^3uL (1.8-7.7) Lymphocytes # (Auto) 1.1 x10^3/uL (1.0-4.8) Monocytes # (Auto) 0.7 x10^3/uL (0.0-1.1) Eosinophils # (Auto) 0.3 x10^3/uL (0.0-0.7) Basophils # (Auto) 0.0 x10^3/uL (0.0-0.2) Sodium Level 133 mmol/L (136-145) Potassium Level 3.8 mmol/L (3.5-5.1) Chloride Level 100 mmol/L (98-107) Carbon Dioxide Level 28 mmol/L (21-32) Anion Gap 5 (6-14) Blood Urea Nitrogen 17 mg/dL (7-20) Creatinine 0.4 mg/dL (0.6-1.0) Estimated GFR (Cockcroft-Gault) 175.0 Glucose Level 110 mg/dL (70-99) Calcium Level 8.0 mg/dL (8.5-10.1) Microbiology 08/12/16 Blood Fungal Culture - Preliminary, Resulted 08/12/16 Fungal Culture Result 1 - Preliminary, Resulted 08/26/16 Gram Stain - Final, Complete 08/22/16 Gram Stain - Final, Complete 08/31/16 Urine Culture - Final, Complete 08/31/16 Urine Culture Result 1 (JAMEY) - Final, Complete Hemoglobin most recently stable. Medications Current Medications Amino Acids/ Glycerin/ Electrolytes 1,000 ml @ 100 mls/hr Q10H IV Last administered on 08/05/16 02:40; Start 08/02/16 at 03:00; Stop 08/05/16 at 08:50 ; Status DC Morphine Sulfate 2 mg PRN Q2HR PRN IV SEVERE PAIN Last administered on 11:59; Start 08/02/16 at 02:30; Stop 08/02/16 at 13:28; Status DC Daptomycin 220 mg/ Sodium Chloride 50 ml @ 100 mls/hr Q24H IV ; Start 08/02/16 at 09:15; Stop 08/02/16 at 15:58; Status DC Cefepime HCl 1 gm/ Sodium Chloride 50 ml @ 100 mls/hr Q12HR IV Last administered on 08/04/16 08:10; Start 08/02/16 at 10:00; Stop 08/04/16 at 10:33 ; Status DC Daptomycin 220 mg/ Sodium Chloride 50 ml @ 100 mls/hr ONCE ONCE IV ; Start at 10:00; Stop 08/02/16 at 10:29; Status Cancel Potassium Chloride (Klor-Con) 40 meq 1X ONCE PO Last administered on 10:17; Start 08/02/16 at 09:45; Stop 08/02/16 at 09:46; Status DC Daptomycin 220 mg/ Sodium Chloride 50 ml @ 100 mls/hr Q24H IV Last administered on 08/03/16 09:43; Start 08/02/16 at 10:15; Stop 08/03/16 at 10:29 ; Status DC Potassium Chloride (Klor-Con) 40 meq 1X ONCE PO Last administered on 12:57; Start 08/02/16 at 12:30; Stop 08/02/16 at 12:36; Status DC Morphine Sulfate 5 mg PRN Q2HRS PRN IV MODERATE TO SEVERE PAIN Last administered on 08/26/16 16:15; Start 08/02/16 at 13:30; Stop 08/26/16 at 17:31; Status DC Morphine Sulfate 8 mg PRN Q2HRS PRN IV MODERATE TO SEVERE PAIN Last administered on 08/04/16 14:58; Start 08/02/16 at 13:30; Stop 08/26/16 at 17:31 ; Status DC Acetaminophen (Tylenol) 650 mg PRN Q6HRS PRN PO TEMP GREATER THAN 100.4 Last administered on 08/26/16 00:24; Start 08/02/16 at 14:45; Stop 08/26/16 at 17:31; Status DC Lactated Ringer's 1,000 ml @ 50 mls/hr Q20H IV ; Start 08/05/16 at 07:00; Stop 08/05/16 at 18:13; Status DC Daptomycin 220 mg/ Sodium Chloride 50 ml @ 100 mls/hr Q24H IV ; Start 08/03/16 at 11:00; Status Cancel Potassium Chloride (Klor-Con) 40 meq 1X ONCE PO Last administered on 17:41; Start 08/02/16 at 17:15; Stop 08/02/16 at 17:18; Status DC Potassium Chloride (Klor-Con) 40 meq BIDWMEALS PO ; Start 08/03/16 at 08:00; Stop 08/03/16 at 11:08; Status DC Morphine Sulfate 5 mg 1X ONCE IV Last administered on 08/02/16 21:45; Start 08/02/16 at 21:30; Stop 08/02/16 at 21:33; Status DC Lorazepam (Ativan) 1 mg 1X ONCE IV Last administered on 08/02/16 21:30; Start 08/02/16 at 21:30; Stop 08/02/16 at 21:33; Status DC Acetaminophen (Acetaminophen Supp) 650 mg PRN Q6HRS PRN VA MILD PAIN / TEMP Last administered on 08/13/16 03:13; Start 08/03/16 at 01:15; Stop 08/26/16 at 17:31; Status DC Albuterol/ Ipratropium (Duoneb) 3 ml RTQID NEB Last administered on 09/02/16 12:33; Start 08/03/16 at 08:00 Budesonide (Pulmicort) 0.5 mg RTBID NEB Last administered on 09/02/16 07:54; Start 08/03/16 at 08:00 Pantoprazole Sodium (Protonix Vial) 40 mg 1X ONCE IVP Last administered on 10:06; Start 08/03/16 at 08:00; Stop 08/03/16 at 08:01; Status DC Daptomycin 320 mg/ Sodium Chloride 50 ml @ 100 mls/hr Q24H IV Last administered on 08/04/16 10:03; Start 08/04/16 at 10:00; Stop 08/04/16 at 10:33 ; Status DC Lorazepam (Ativan) 0.5 mg PRN Q6HRS PRN IV ANXIETY / AGITATION Last administered on 08/04/16 09:12; Start 08/03/16 at 11:15; Stop 08/07/16 at 11:02 ; Status DC Lorazepam (Ativan) 0.5 mg 1X ONCE IV Last administered on 08/04/16 10:00; Start 08/04/16 at 10:00; Stop 08/04/16 at 10:01; Status DC Morphine Sulfate 5 mg 1X ONCE IV Last administered on 08/04/16 10:00; Start 08/04/16 at 10:00; Stop 08/04/16 at 10:01; Status DC Lorazepam (Ativan) 0.5 mg PRN Q4HRS PRN IV ANXIETY / AGITATION Last administered on 08/25/16 02:29; Start 08/04/16 at 10:00; Stop 08/26/16 at 17:31; Status DC Nafcillin Sodium 2 gm/Sodium Chloride 100 ml @ 200 mls/hr Q4HRS IV Last administered on 08/09/16 10:10; Start 08/04/16 at 12:00; Stop 08/09/16 at 11:49 ; Status DC Propofol 100 ml @ As Directed STK-MED ONCE IV ; Start 08/04/16 at 16:10; Stop 08/04/16 at 16:11; Status DC Succinylcholine Chloride (Anectine) 200 mg STK-MED ONCE .ROUTE ; Start 08/04/16 at 16:14; Stop 08/04/16 at 16:15; Status DC Succinylcholine Chloride (Anectine) 200 mg 1X ONCE IV ; Start 08/04/16 at 16:45 ; Stop 08/04/16 at 16:46; Status DC Propofol 100 ml @ 0 mls/hr CONT PRN IV SEE I/O RECORD Last administered on 08/17 10:18; Start 08/04/16 at 16:45; Stop 08/26/16 at 17:31; Status DC Lorazepam (Ativan) 0.5 mg 1X ONCE IV Last administered on 08/04/16 16:45; Start 08/04/16 at 16:45; Stop 08/04/16 at 16:46; Status DC Morphine Sulfate 5 mg 1X ONCE IV Last administered on 08/04/16 16:44; Start 08/04/16 at 16:45; Stop 08/04/16 at 16:46; Status DC Fentanyl Citrate 30 ml @ 0 mls/hr CONT PRN IV PROTOCOL Last administered on 07:32; Start 08/04/16 at 16:45; Stop 09/02/16 at 10:45; Status DC Chlorhexidine Gluconate (Peridex) 15 ml BID MM Last administered on 08/17/16 10:18; Start 08/04/16 at 21:00; Stop 08/17/16 at 19:36; Status DC Famotidine (Pepcid) 20 mg BID IVP Last administered on 08/26/16 08:43; Start at 17:00; Stop 08/26/16 at 17:31; Status DC Sodium Chloride 1,000 ml @ 100 mls/hr Q10H IV Last administered on 08/07/16 04:35; Start 08/05/16 at 09:00; Stop 08/07/16 at 08:59; Status DC Succinylcholine Chloride (Anectine) 200 mg STK-MED ONCE .ROUTE ; Start 08/04/16 at 16:00; Stop 08/05/16 at 12:32; Status DC Lorazepam (Ativan) 2 mg 1X ONCE IV Last administered on 08/05/16 20:43; Start 08/05/16 at 21:00; Stop 08/05/16 at 21:01; Status DC Furosemide (Lasix) 40 mg 1X PRN PRN IV blood transfusion Last administered on 14:17; Start 08/06/16 at 08:00; Stop 08/07/16 at 07:59; Status DC Sodium Bicarbonate 50 meq 1X ONCE IV Last administered on 08/06/16 14:06; Start 08/06/16 at 12:00; Stop 08/06/16 at 12:01; Status DC Calcium Chloride 1,000 mg STK-MED ONCE IV ; Start 08/04/16 at 12:00; Stop at 15:13; Status DC Epinephrine HCl (Epinephrine Syringe) 2 mg STK-MED ONCE .ROUTE ; Start 08/04/16 at 12:00; Stop 08/06/16 at 15:13; Status DC Sodium Bicarbonate 100 meq STK-MED ONCE .ROUTE ; Start 08/04/16 at 12:00; Stop 08/06/16 at 15:13; Status DC Amino Acids/ Glycerin/ Electrolytes 1,000 ml @ 100 mls/hr Q10H IV Last administered on 08/08/16 12:33; Start 08/07/16 at 10:00; Stop 08/09/16 at 09:42 ; Status DC Enoxaparin Sodium (Lovenox 40mg Syringe) 40 mg Q24H SQ Last administered on 13:10; Start 08/07/16 at 13:00; Stop 08/10/16 at 10:43; Status DC Vecuronium Hostetter (Norcuron Bolus) 10 mg STK-MED ONCE IV ; Start 08/07/16 at 13 :56; Stop 08/07/16 at 13:57; Status DC Vecuronium Hostetter (Norcuron Bolus) 6 mg 1X ONCE IV Last administered on 14:06; Start 08/07/16 at 14:00; Stop 08/07/16 at 14:05; Status DC Sodium Bicarbonate 50 meq 1X ONCE IV Last administered on 08/08/16 11:46; Start 08/08/16 at 11:45; Stop 08/08/16 at 11:46; Status DC Nystatin (Nystop) 1 james BID TP Last administered on 09/02/16 10:22; Start at 21:00 Linezolid 300 ml @ 300 mls/hr Q12HR IV Last administered on 08/14/16 20:51; Start 08/09/16 at 09:00; Stop 08/15/16 at 07:21; Status DC Sodium Chloride 1,000 ml @ 20 mls/hr Q24H IV Last administered on 08/26/16 06: 41; Start 08/09/16 at 09:45; Stop 08/27/16 at 13:51; Status DC Sodium Bicarbonate 150 meq/Dextrose 1,150 ml @ 100 mls/hr 1X ONCE IV Last administered on 08/09/16 12:25; Start 08/09/16 at 11:30; Stop 08/09/16 at 22:59 ; Status DC Piperacillin Sod/ Tazobactam Sod (Zosyn Per Pharmacy) 1 each PRN DAILY PRN MC SEE COMMENTS; Start 08/09/16 at 12:00; Stop 08/14/16 at 07:40; Status DC Piperacillin Sod/ Tazobactam Sod 4.5 gm/Sodium Chloride 100 ml @ 200 mls/hr Q6HRS IV Last administered on 08/14/16 05:58; Start 08/09/16 at 12:30; Stop at 07:33; Status DC Vecuronium Hostetter (Norcuron Bolus) 5 mg PRN Q4HRS PRN IV INCREASED RESPIRATORY ,NOT RELI Last administered on 08/11/16 02:56; Start 08/09/16 at 13:30; Stop at 17:31; Status DC Potassium Chloride 50 ml @ 100 mls/hr Q1H IV ; Start 08/10/16 at 09:30; Stop at 10:59; Status Cancel Potassium Chloride 100 ml @ 100 mls/hr Q1H IV Last administered on 08/10/16 16:28; Start 08/10/16 at 10:30; Stop 08/10/16 at 14:29; Status DC Potassium Chloride (KCl Oral Soln) 60 meq 1X ONCE PEG Last administered on 11:16; Start 08/10/16 at 11:00; Stop 08/10/16 at 11:01; Status DC Sodium Bicarbonate 150 meq/Dextrose 1,150 ml @ 100 mls/hr [id number] IV Last administered on 08/10/16 11:14; Start 08/10/16 at 11:00; Stop 08/10/16 at 22:29 ; Status DC Enoxaparin Sodium (Lovenox 40mg Syringe) 40 mg Q24H SQ ; Start 08/10/16 at 13:00 ; Stop 08/10/16 at 13:00; Status DC Micafungin Sodium 100 mg/Dextrose 100 ml @ 100 mls/hr Q24H IV Last administered on 08/13/16 16:26; Start 08/11/16 at 16:00; Stop 08/14/16 at 07:33 ; Status DC Furosemide (Lasix) 40 mg 1X ONCE IVP Last administered on 08/12/16 08:38; Start 08/12/16 at 08:00; Stop 08/12/16 at 08:06; Status DC Morphine Sulfate 1 mg PRN Q10MIN PRN IV SEVERE PAIN; Start 08/13/16 at 07:00; Stop 08/14/16 at 06:59; Status DC Lactated Ringer's 1,000 ml @ 0 mls/hr Q0M IV ; Start 08/13/16 at 07:00; Stop at 18:59; Status DC Lidocaine HCl 2 ml PRN 1X PRN ID PRIOR TO IV START; Start 08/13/16 at 07:00; Stop 08/14/16 at 06:59; Status DC Hydromorphone HCl (Dilaudid) 0.5 mg PRN Q10MIN PRN IV SEV PAIN, Second choice; Start 08/13/16 at 07:00; Stop 08/14/16 at 06:59; Status DC Prochlorperazine Edisylate (Compazine) 5 mg PACU PRN PRN IV NAUSEA, MRX1; Start 08/13/16 at 07:00; Stop 08/14/16 at 06:59; Status DC Morphine Sulfate 1 mg PRN Q10MIN PRN IV SEVERE PAIN; Start 08/13/16 at 07:00; Stop 08/14/16 at 06:59; Status DC Lactated Ringer's 1,000 ml @ 0 mls/hr Q0M IV ; Start 08/13/16 at 07:00; Stop at 18:59; Status DC Lidocaine HCl 2 ml PRN 1X PRN ID PRIOR TO IV START; Start 08/13/16 at 07:00; Stop 08/14/16 at 06:59; Status DC Hydromorphone HCl (Dilaudid) 0.5 mg PRN Q10MIN PRN IV SEV PAIN, Second choice; Start 08/13/16 at 07:00; Stop 08/14/16 at 06:59; Status DC Prochlorperazine Edisylate (Compazine) 5 mg PACU PRN PRN IV NAUSEA, MRX1; Start 08/13/16 at 07:00; Stop 08/14/16 at 06:59; Status DC Potassium Chloride 50 ml @ 50 mls/hr Q1H IV Last administered on 08/13/16 07: 57; Start 08/13/16 at 07:00; Stop 08/13/16 at 08:59; Status DC Rocuronium Hostetter (Zemuron) 50 mg STK-MED ONCE .ROUTE ; Start 08/13/16 at 12:50 ; Stop 08/13/16 at 12:51; Status DC Propofol 20 ml @ As Directed STK-MED ONCE IV ; Start 08/13/16 at 12:53; Stop at 12:54; Status DC Sevoflurane (Ultane) 30 ml STK-MED ONCE IH ; Start 08/13/16 at 14:04; Stop 08/13 at 14:05; Status DC Albumin Human 250 ml @ 100 mls/hr 1X ONCE IV Last administered on 08/13/16 23:38; Start 08/13/16 at 18:00; Stop 08/13/16 at 20:29; Status DC Albumin Human 500 ml @ 100 mls/hr 1X ONCE IV Last administered on 08/13/16 18:15; Start 08/13/16 at 18:00; Stop 08/13/16 at 22:59; Status DC Potassium Chloride 50 ml @ 50 mls/hr Q1H IV Last administered on 08/14/16 10: 46; Start 08/14/16 at 08:00; Stop 08/14/16 at 09:59; Status DC Nafcillin Sodium 2 gm/Sodium Chloride 100 ml @ 200 mls/hr Q4HRS IV Last administered on 08/23/16 08:51; Start 08/14/16 at 08:00; Stop 08/23/16 at 10:44; Status DC Enoxaparin Sodium (Lovenox 40mg Syringe) 40 mg Q24H SQ Last administered on 08/25 12:44; Start 08/14/16 at 12:00; Stop 08/26/16 at 11:53; Status DC Potassium Chloride (KCl Oral Soln) 40 meq 1X ONCE PEG Last administered on 07:54; Start 08/16/16 at 07:00; Stop 08/16/16 at 07:01; Status DC Potassium Chloride (KCl Oral Soln) 40 meq 1X ONCE PEG Last administered on 14:01; Start 08/16/16 at 12:00; Stop 08/16/16 at 12:01; Status DC Magnesium Sulfate/ Dextrose 50 ml @ 25 mls/hr 1X ONCE IV Last administered on 08/16/16 17:14; Start 08/16/16 at 16:30; Stop 08/16/16 at 18:29; Status DC Potassium Chloride (Klor-Con) 40 meq 1X ONCE PO ; Start 08/17/16 at 13:30; Stop 08/17/16 at 13:31; Status Cancel Potassium Chloride (KCl Oral Soln) 40 meq 1X ONCE PO Last administered on 08/17 15:34; Start 08/17/16 at 13:30; Stop 08/17/16 at 14:27; Status DC Potassium Chloride 100 ml @ 100 mls/hr PRN Q1HR PRN IV HYPOKALEMIA PER ICU PROTOCOL; Start 08/17/16 at 13:30; Status Cancel Potassium Chloride 50 ml @ 25 mls/hr PRN Q2HR PRN IV HYPOKALEMIA PER ICU PROTOCOL Last administered on 08/21/16 13:29; Start 08/17/16 at 13:30; Stop 08/21 at 13:34; Status DC Potassium Chloride (Klor-Con) 40 meq PRN Q2HR PRN PO HYPOKALEMIA PER ICU PROTOCOL; Start 08/17/16 at 13:30 Potassium Chloride 100 ml @ 100 mls/hr PRN Q1HR PRN IV HYPOKALEMIA PER ICU PROTOCOL; Start 08/17/16 at 13:30 Potassium Chloride 50 ml @ 25 mls/hr PRN Q2HR PRN IV HYPOKALEMIA PER ICU PROTOCOL; Start 08/17/16 at 13:30 Potassium Chloride (Klor-Con) 40 meq PRN Q2HR PRN PO HYPOKALEMIA PER ICU PROTOCOL; Start 08/17/16 at 13:30 Potassium Chloride 100 ml @ 100 mls/hr PRN Q1HR PRN IV HYPOKALEMIA PER ICU PROTOCOL; Start 08/17/16 at 13:30; Status Cancel Potassium Chloride 50 ml @ 25 mls/hr PRN Q2HR PRN IV HYPOKALEMIA PER ICU PROTOCOL Last administered on 08/27/16 14:37; Start 08/17/16 at 14:00 Magnesium Sulfate/ Dextrose 100 ml @ 50 mls/hr PRN DAILY PRN IV HYPOMAGNESIA PER ICU PROTOCOL Last administered on 08/20/16 22:26; Start 08/18/16 at 09:00 Potassium Phos/ Sodium Phos (Phos-Nak) 1 pkt BID PO ; Start 08/17/16 at 21:00; Stop 08/18/16 at 09:01; Status DC Sodium Phosphate 40 mmol/Dextrose 263.3333 ml @ 62.5 mls/hr PRN 1X PRN IV HYPOPHOSP PER ICU PROTOCOL; Start 08/17/16 at 13:30 Potassium Chloride (KCl Oral Soln) 40 meq 1X ONCE PEG Last administered on 08/19 07:57; Start 08/19/16 at 07:45; Stop 08/19/16 at 07:46; Status DC Potassium Chloride (KCl Oral Soln) 40 meq 1X ONCE PEG Last administered on 08/19 11:36; Start 08/19/16 at 12:00; Stop 08/19/16 at 12:01; Status DC Alprazolam (Xanax) 0.5 mg 1X ONCE PO Last administered on 08/19/16 11:35; Start 08/19/16 at 11:15; Stop 08/19/16 at 11:16; Status DC Alprazolam (Xanax) 0.5 mg TID PEG Last administered on 08/23/16 20:34; Start at 15:00; Stop 08/24/16 at 08:11; Status DC Potassium Chloride 50 ml @ 50 mls/hr Q1H IV Last administered on 08/22/16 09:40 ; Start 08/22/16 at 08:30; Stop 08/22/16 at 10:29; Status DC Haloperidol Lactate (Haldol) 5 mg PRN Q6HRS PRN IVP AGITATION Last administered on 08/31/16 02:14; Start 08/22/16 at 09:15 Haloperidol Lactate (Haldol) 2 mg 1X ONCE IVP ; Start 08/22/16 at 09:15; Stop at 09:27; Status DC Magnesium Sulfate/ Dextrose 100 ml @ 50 mls/hr DAILY IV Last administered on 10:00; Start 08/23/16 at 09:00; Stop 08/26/16 at 08:59; Status DC Albumin Human 100 ml @ 100 mls/hr [id number] IV Last administered on 08/23/16 17:25 ; Start 08/23/16 at 09:00; Stop 08/23/16 at 16:59; Status DC Furosemide (Lasix) 40 mg [id number] IVP Last administered on 08/23/16 17:26; Start 08/23/16 at 09:00; Stop 08/23/16 at 16:01; Status DC Vitamin A/Vitamin D (Vitamin A & D Ointment) 1 james PRN Q1HR PRN TP SKIN PROTECTION Last administered on 08/31/16 17:52; Start 08/23/16 at 08:45 Cefepime HCl 1 gm/ Sodium Chloride 50 ml @ 100 mls/hr Q8HRS IV Last administered on 09/02/16 06:07; Start 08/23/16 at 14:00 Ondansetron HCl (Zofran) 4 mg PRN Q6HRS PRN IV NAUSEA/VOMITING Last administered on 08/23/16 19:27; Start 08/23/16 at 19:15 Alprazolam (Xanax) 0.25 mg TID PEG ; Start 08/24/16 at 09:00; Stop 08/24/16 at 09: 28; Status DC Diphenhydramine HCl (Benadryl) 25 mg HS PO ; Start 08/24/16 at 21:00; Stop at 21:00; Status DC Zolpidem Tartrate (Ambien) 5 mg PRN QHS PRN PO INSOMNIA Last administered on 21:05; Start 08/24/16 at 08:15 Alprazolam (Xanax) 0.5 mg TID PEG Last administered on 09/02/16 10:22; Start 08/24/16 at 09:00 Diphenhydramine HCl (Benadryl) 25 mg PRN QHS PRN PO sleep; Start 08/24/16 at 21: 00 Quetiapine Fumarate (SEROquel) 50 mg HS PO Last administered on 09/01/16 21:10 ; Start 08/24/16 at 21:00 Potassium Chloride 50 ml @ 50 mls/hr Q1H IV Last administered on 08/25/16 09:45 ; Start 08/25/16 at 08:00; Stop 08/25/16 at 09:59; Status DC Iohexol (Omnipaque 300 Mg/ml) 75 ml 1X ONCE IV Last administered on 08/25/16 15:45; Start 08/25/16 at 15:45; Stop 08/25/16 at 15:46; Status DC Iohexol (Omnipaque 240 Mg/ml) 50 ml 1X ONCE PO Last administered on 08/25/16 15:45; Start 08/25/16 at 15:45; Stop 08/25/16 at 15:46; Status DC Info (Do NOT chart on this entry -- for MONITORING) 1 each PRN DAILY PRN MC SEE COMMENTS; Start 08/25/16 at 16:00; Stop 08/27/16 at 15:59; Status DC Chlorhexidine Gluconate (Peridex) 15 ml BID SWSP Last administered on 10:21; Start 08/26/16 at 09:00 Potassium Chloride 50 ml @ 50 mls/hr Q1H IV ; Start 08/26/16 at 11:30; Stop at 11:30; Status DC Acetaminophen (Tylenol) 650 mg PRN Q6HRS PRN PEG MILD PAIN / TEMP Last administered on 08/31/16 18:11; Start 08/26/16 at 12:00 Lidocaine/Sodium Bicarbonate (Buffered Lidocaine 1%) 20 ml STK-MED ONCE IJ ; Start 08/26/16 at 14:50; Stop 08/26/16 at 14:51; Status DC Lidocaine/Sodium Bicarbonate (Buffered Lidocaine 1%) 20 ml 1X ONCE IJ Last administered on 08/26/16 15:42; Start 08/26/16 at 15:45; Stop 08/26/16 at 15:46; Status DC Lansoprazole (Prevacid) 30 mg BIDBFRMEAL FT Last administered on 09/02/16 10: 22; Start 08/27/16 at 17:30 Potassium Chloride 50 ml @ 50 mls/hr Q1H IV Last administered on 08/27/16 13:23 ; Start 08/27/16 at 13:00; Stop 08/27/16 at 14:59; Status DC Alteplase, Recombinant 5 mg/ Sterile Water 50 ml @ 0 mls/hr 1X ONCE INT CAT Last administered on 08/28/16 15:03; Start 08/28/16 at 10:45; Stop 08/28/16 at 10:46; Status DC Ferrous Sulfate 300 mg DAILY FT Last administered on 09/02/16 10:21; Start 03/07 at 09:00 Alteplase, Recombinant 5 mg/ Sterile Water 50 ml @ 0 mls/hr 1X ONCE INT CAT Last administered on 08/29/16 11:00; Start 08/29/16 at 11:00; Stop 08/29/16 at 11:01; Status DC Oxycodone/ Acetaminophen (Percocet 5/325) 1 tab PRN BID PRN PO PAIN Last administered on 09/02/16 10:36; Start 08/29/16 at 11:45; Stop 09/02/16 at 10:45 ; Status DC Metronidazole (Flagyl) 500 mg Q12HR PEG Last administered on 09/02/16 10:22; Start 08/30/16 at 09:00 Oxycodone HCl (Roxicodone) 10 mg Q4HRS PRN PO PAIN Last administered on 06:32; Start 08/30/16 at 15:15; Stop 09/02/16 at 10:45; Status DC Cholestyramine Resin (Questran Light) 4 gm QIDPMEDS PO Last administered on 10:22; Start 08/31/16 at 10:00 Diphenhydramine HCl (Benadryl) 25 mg PRN QHS PRN PO INSOMNIA; Start 08/31/16 at 10:30 Oxycodone HCl (Roxicodone) 5 mg Q4HRS PRN PO PAIN; Start 09/02/16 at 10:45 Oxycodone HCl (Roxicodone) 10 mg Q4HRS PRN PO PAIN; Start 09/02/16 at 11:00 Active Scripts Active Reported No Known Medications Prior To Admisstion (Info) Each 1 Each Vitals/I & O Vital Sign - Last 24 Hours 09/01/16 09/01/16 09/01/16 09/01/16 14:00 15:00 16:00 16:00 Temp 99.0 99.0 Pulse 95 101 102 Resp 20 21 27 B/P (MAP) 109/70 (83) 114/86 (95) 125/79 (94) Pulse Ox 100 100 99 O2 Delivery Trach Shield Trach Shield Trach Shield Trach Collar O2 Flow Rate 10.0 10.0 10.0 10.0 09/01/16 09/01/16 09/01/16 09/01/16 16:10 17:00 18:00 18:09 Pulse 109 108 Resp 21 25 21 B/P (MAP) 139/88 (105) 113/70 (84) Pulse Ox 98 99 99 96 O2 Delivery Tracheal Collar Trach Shield Trach Shield O2 Flow Rate 10.0 10.0 10.0 10.0 09/01/16 09/01/16 09/01/16 09/01/16 19:00 19:09 19:50 20:00 Temp 99.9 99.9 Pulse 104 101 Resp 27 23 B/P (MAP) 112/65 (81) 113/64 (80) Pulse Ox 99 99 O2 Delivery Trach Shield Tracheal Collar Trach Collar Trach Shield O2 Flow Rate 10.0 8.0 8.0 09/01/16 09/01/16 09/01/16 09/01/16 20:02 21:00 21:10 22:00 Pulse 110 104 Resp 27 29 24 B/P (MAP) 114/71 (85) 90/53 (65) Pulse Ox 98 99 100 99 O2 Delivery Tracheal Collar Trach Shield Tracheal Collar Trach Shield O2 Flow Rate 10.0 8.0 8.0 09/01/16 09/01/16 09/01/16 09/02/16 22:10 23:00 23:28 00:00 Temp 97.7 97.7 Pulse 100 98 Resp 23 23 25 B/P (MAP) 93/55 (68) 94/58 (70) Pulse Ox 99 100 100 O2 Delivery Trach Shield Trach Collar Trach Shield O2 Flow Rate 8.0 8.0 8.0 8.0 /15/17 5/15/17 5//17 5//17 01:00 02:00 02:00 03:00 Pulse 92 98 92 Resp 25 25 25 25 B/P (MAP) 95/59 (71) 101/70 (80) 90/64 (73) Pulse Ox 95 100 99 98 O2 Delivery Trach Shield Trach Shield Trach Shield O2 Flow Rate 8.0 8.0 8.0 8.0 09/02/17 5//17 5//17 5// 03:00 03:50 04:00 05:00 Temp 97.5 97.5 Pulse 92 99 Resp 22 23 25 B/P (MAP) 104/69 (81) 104/67 (79) Pulse Ox 93 96 O2 Delivery Trach Collar Trach Shield Trach Shield O2 Flow Rate 8.0 8.0 8.0 09/02/17 5//17 5//17 5//17 06:00 06:32 07:00 07:30 Pulse 100 98 Resp 25 24 23 B/P (MAP) 116/85 (95) 116/67 (83) Pulse Ox 97 97 99 100 O2 Delivery Trach Shield Trach Shield O2 Flow Rate 8.0 8.0 8.0 8.0 09/02/17 5//17 5//17 5/ 07:50 08:00 08:00 09:00 Temp 99.0 99.0 Pulse 104 101 Resp 19 24 B/P (MAP) 112/73 (86) 111/70 (84) Pulse Ox 99 100 100 O2 Delivery Tracheal Collar Trach Shield Trach Collar Trach Shield O2 Flow Rate 10.0 8.0 8.0 8.0 /15/17 5/15/17 5/15/17 5//17 10:00 10:36 11:00 12:00 Temp 99.0 99.0 Pulse 101 102 96 Resp 24 21 21 22 B/P (MAP) 114/70 (85) 111/75 (87) 119/83 (95) Pulse Ox 100 100 100 100 O2 Delivery Trach Shield trach shield Trach Shield Trach Shield O2 Flow Rate 8.0 8.0 8.0 8.0 09/02/16 09/02/16 12:00 12:33 Pulse Ox 100 O2 Delivery Trach Collar Tracheal Collar O2 Flow Rate 8.0 10.0 Intake and Output 09/01/16 09/01/16 09/02/16 15:00 23:00 07:00 Intake Total 300 ml 944 ml 909 ml Output Total 1215 ml 690 ml 460 ml Balance -915 ml 254 ml 449 ml Assessment Stable GI-rodriguez. Plan of Care: Continue current Tx, Mgmt RICHAR LITTLE MD September 02, 2016 13:54
[2016-09-02] MEDS: QUEtiapine 25 MG TABLET. PO SCH (20:38)
[2016-09-02] MEDS: ZOLPIDEM 5 MG TABLET. PO PRN (20:46)
[2016-09-03] VITALS (24 sets, daily range): BP systolic 95–118; BP diastolic 63–82
[2016-09-03] MEDS: oxyCODONE IR 5 MG TABLET PO PRN ×4 (02:16→21:06)
[2016-09-03] MEDS: diphenhydrAMINE HCL 25 MG CAPSULE PO PRN ×2 (02:16→23:57)
[2016-09-03] MEDS: CEFEPIME HCL 1 GM in IV NORMAL SALINE 50ML 50 ML IV SCH ×3 (05:33→21:52)
[2016-09-03 05:43] LABS: BASO % 0 % (0-3); EOS % 3 % (0-3); HEMATOCRIT 26.9 % (36.0-47.0); HEMOGLOBIN 9.1 g/dL (12.0-15.5); LYMPH # 1.5 x10^3/uL (1.0-4.8); LYMPH % 14 % (24-48); MEAN CORPUSCULAR HEMOGLOBIN 30 pg (25-35); MEAN CORPUSCULAR HGB CONC 34 g/dL (31-37); MEAN CORPUSCULAR VOLUME 88 fL (79-100); MONO % 7 % (0-9); NEUT % 76 % (31-73); PLATELET COUNT 294 x10^3/uL (140-400); RED BLOOD COUNT 3.06 x10^6/uL (3.50-5.40); RED CELL DISTRIBUTION WIDTH 17.4 % (11.5-14.5); WHITE BLOOD COUNT 10.8 x10^3/uL (4.0-11.0)
--- NOTE | 2016-09-03 07:19 | PDOC ---
Infectious Disease Note Subjective Subjective Comfortable, denies pain + cough + diarrhea. Rectal tube in place Tube feedings ROS ROS GEN: Denies fevers, chills, sweats HEENT: Denies blurred vision, sore throat CV: Denies chest pain RESP: Denies shortness of air, cough GI: Denies n/v/d NEURO: Denies confusion, dizziness MSK: Denies weakness, joint pain/swelling Vital Sign Vital Signs Vital Signs Date Time Temp Pulse Resp B/P (MAP) Pulse Ox O2 Delivery O2 Flow Rate FiO2 09/03/16 07:00 106 20 111/63 (79) 99 Trach Shield 8.0 09/03/16 04:00 98.9 98.9 Physical Exam PHYSICAL EXAM GENERAL: Propped up in bed, alert, relaxed appearance, watching TV HEENT: PERRL, OC/OP pink, poor dentition NECK: Trach shield, brown-colored secretions LUNGS: + rhonchi, nonlabored. No chest tubes HEART: S1S2 ABD: Mildly distended, soft, NT. g-tube intact. + rectal tube. 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 clean Labs Lab Laboratory Tests Test 09/03/16 05:30 White Blood Count 10.8 x10^3/uL (4.0-11.0) Red Blood Count 3.06 x10^6/uL (3.50-5.40) Hemoglobin 9.1 g/dL (12.0-15.5) Hematocrit 26.9 % (36.0-47.0) Mean Corpuscular Volume 88 fL (79-100) Mean Corpuscular Hemoglobin 30 pg (25-35) Mean Corpuscular Hemoglobin Concent 34 g/dL (31-37) Red Cell Distribution Width 17.4 % (11.5-14.5) Platelet Count 294 x10^3/uL (140-400) Neutrophils (%) (Auto) 76 % (31-73) Lymphocytes (%) (Auto) 14 % (24-48) Monocytes (%) (Auto) 7 % (0-9) Eosinophils (%) (Auto) 3 % (0-3) Basophils (%) (Auto) 0 % (0-3) Neutrophils # (Auto) 8.2 x10^3uL (1.8-7.7) Lymphocytes # (Auto) 1.5 x10^3/uL (1.0-4.8) Monocytes # (Auto) 0.8 x10^3/uL (0.0-1.1) Eosinophils # (Auto) 0.3 x10^3/uL (0.0-0.7) Basophils # (Auto) 0.0 x10^3/uL (0.0-0.2) Objective Assessment Loculated pleural effusions- S/p Bilat Chest tubes 08/26. tubes now removed Ecoli in sputum (08/22) Fever ? PRBCs better C-diff neg. better Leukocytosis - better Acute anemia s/p PRBCs, 08/16, 08/20, 08/27 S/p Trach/PEG 08/13 MSSA sepsis 08/01 ([facility]) -Repeat BC positive, 08/05 & 08/07. Neg 08/09 Right-sided bacterial endocarditis. -TTE. 3.0 x 2.0cm mobile mass TV Multiple pulmonary nodules/septic emboli Acute Resp failure - Intubated ? developing ARDS. S/p Bronch 08/08. MSSA. Trach IV drug use. Hep C Ileus Renal insufficiency. Severe thrombocytopenia. improved Hepatosplenomegaly on CT Plan Plan of Care Dose Cholestyramine and probiotics to see if help loose stool. May try immodium if no success Trial of Flagyl (08/30) to r/o anaerobes in loculation given stalling of WBC but may just be from loculation Nafcillin changed to cefepime to cover for Ecoli in sputum back to Nafcillin if stable Patient will need a total of six weeks of IV abx (09/19/2016 end date) to treat endocarditis/bacteremia Monitor WBC, temp Supportive care KAYLYNN SHAY MD September 03, 2016 07:19
[2016-09-03] MEDS: ALPRAZolam 0.5 MG TABLET PEG SCH ×4 (07:40→21:06)
[2016-09-03] MEDS: LANSOPRAZOLE 30 MG TAB.RAP.DR FT SCH ×2 (07:40→15:39)
[2016-09-03] MEDS: FERROUS SULFATE ORAL 300 MG/5 ML SOLUTION. FT SCH (07:40)
[2016-09-03] MEDS: CHLORHEXIDINE 0.12% 15 ML MOUTHWASH. SWSP SCH ×2 (07:40→21:07)
[2016-09-03] MEDS: ACETAMINOPHEN 650 MG/20.3 ML SOLUTION. PEG PRN (07:40)
[2016-09-03] MEDS: NYSTATIN TOPICAL POWDER 15GM BOTTLE. TP SCH ×2 (07:42→21:07)
[2016-09-03] MEDS: BUDESONIDE 0.5 MG/2 ML NEBU. NEB SCH ×2 (07:46→19:49)
[2016-09-03] MEDS: IPRATRPIUM/ALBUTEROL 0.5/2.5MG 3 ML NEBU. NEB SCH ×4 (07:46→19:49)
[2016-09-03] MEDS: CHOLESTYRAMINE/ASPARTAME 4 GM PACKET PO SCH ×4 (10:00→21:52)
[2016-09-03] MEDS ORDERED: CHOLESTYRAMINE/ASPARTAME 4 GM PACKET PEG SCH (10:00)
[2016-09-03] MEDS: LACTOBACILLUS ACIDOPH & BULGAR 1 TABLET. PO SCH ×3 (10:04→17:26)
[2016-09-03] MEDS: metroNIDAZOLE 500 MG TABLET PEG SCH ×2 (10:04→21:06)
--- NOTE | 2016-09-03 10:17 | PDOC ---
G I PROGRESS NOTE Subjective No complaints. Indicates hungry. Physical Exam Abdomen soft, not distended. PEG OK. Review of Relevant I have reviewed the following items shanta (where applicable) has been applied. Labs Laboratory Tests Test 09/02/16 05:37 09/03/16 05:30 White Blood Count 11.6 x10^3/uL (4.0-11.0) 10.8 x10^3/uL (4.0-11.0) Red Blood Count 3.14 x10^6/uL (3.50-5.40) 3.06 x10^6/uL (3.50-5.40) Hemoglobin 9.5 g/dL (12.0-15.5) 9.1 g/dL (12.0-15.5) Hematocrit 27.7 % (36.0-47.0) 26.9 % (36.0-47.0) Mean Corpuscular Volume 88 fL (79-100) 88 fL (79-100) Mean Corpuscular Hemoglobin 30 pg (25-35) 30 pg (25-35) Mean Corpuscular Hemoglobin Concent 34 g/dL (31-37) 34 g/dL (31-37) Red Cell Distribution Width 16.8 % (11.5-14.5) 17.4 % (11.5-14.5) Platelet Count 284 x10^3/uL (140-400) 294 x10^3/uL (140-400) Neutrophils (%) (Auto) 81 % (31-73) 76 % (31-73) Lymphocytes (%) (Auto) 10 % (24-48) 14 % (24-48) Monocytes (%) (Auto) 6 % (0-9) 7 % (0-9) Eosinophils (%) (Auto) 3 % (0-3) 3 % (0-3) Basophils (%) (Auto) 0 % (0-3) 0 % (0-3) Neutrophils # (Auto) 9.4 x10^3uL (1.8-7.7) 8.2 x10^3uL (1.8-7.7) Lymphocytes # (Auto) 1.1 x10^3/uL (1.0-4.8) 1.5 x10^3/uL (1.0-4.8) Monocytes # (Auto) 0.7 x10^3/uL (0.0-1.1) 0.8 x10^3/uL (0.0-1.1) Eosinophils # (Auto) 0.3 x10^3/uL (0.0-0.7) 0.3 x10^3/uL (0.0-0.7) Basophils # (Auto) 0.0 x10^3/uL (0.0-0.2) 0.0 x10^3/uL (0.0-0.2) Sodium Level 133 mmol/L (136-145) Potassium Level 3.8 mmol/L (3.5-5.1) Chloride Level 100 mmol/L (98-107) Carbon Dioxide Level 28 mmol/L (21-32) Anion Gap 5 (6-14) Blood Urea Nitrogen 17 mg/dL (7-20) Creatinine 0.4 mg/dL (0.6-1.0) Estimated GFR (Cockcroft-Gault) 175.0 Glucose Level 110 mg/dL (70-99) Calcium Level 8.0 mg/dL (8.5-10.1) Laboratory Tests Test 09/03/16 05:30 White Blood Count 10.8 x10^3/uL (4.0-11.0) Red Blood Count 3.06 x10^6/uL (3.50-5.40) Hemoglobin 9.1 g/dL (12.0-15.5) Hematocrit 26.9 % (36.0-47.0) Mean Corpuscular Volume 88 fL (79-100) Mean Corpuscular Hemoglobin 30 pg (25-35) Mean Corpuscular Hemoglobin Concent 34 g/dL (31-37) Red Cell Distribution Width 17.4 % (11.5-14.5) Platelet Count 294 x10^3/uL (140-400) Neutrophils (%) (Auto) 76 % (31-73) Lymphocytes (%) (Auto) 14 % (24-48) Monocytes (%) (Auto) 7 % (0-9) Eosinophils (%) (Auto) 3 % (0-3) Basophils (%) (Auto) 0 % (0-3) Neutrophils # (Auto) 8.2 x10^3uL (1.8-7.7) Lymphocytes # (Auto) 1.5 x10^3/uL (1.0-4.8) Monocytes # (Auto) 0.8 x10^3/uL (0.0-1.1) Eosinophils # (Auto) 0.3 x10^3/uL (0.0-0.7) Basophils # (Auto) 0.0 x10^3/uL (0.0-0.2) Microbiology 08/12/16 Blood Fungal Culture - Preliminary, Resulted 08/12/16 Fungal Culture Result 1 - Preliminary, Resulted 08/26/16 Gram Stain - Final, Complete 08/22/16 Gram Stain - Final, Complete 08/31/16 Urine Culture - Final, Complete 08/31/16 Urine Culture Result 1 (JAMEY) - Final, Complete Medications Current Medications Amino Acids/ Glycerin/ Electrolytes 1,000 ml @ 100 mls/hr Q10H IV Last administered on 08/05/16 02:40; Start 08/02/16 at 03:00; Stop 08/05/16 at 08:50 ; Status DC Morphine Sulfate 2 mg PRN Q2HR PRN IV SEVERE PAIN Last administered on 11:59; Start 08/02/16 at 02:30; Stop 08/02/16 at 13:28; Status DC Daptomycin 220 mg/ Sodium Chloride 50 ml @ 100 mls/hr Q24H IV ; Start 08/02/16 at 09:15; Stop 08/02/16 at 15:58; Status DC Cefepime HCl 1 gm/ Sodium Chloride 50 ml @ 100 mls/hr Q12HR IV Last administered on 08/04/16 08:10; Start 08/02/16 at 10:00; Stop 08/04/16 at 10:33 ; Status DC Daptomycin 220 mg/ Sodium Chloride 50 ml @ 100 mls/hr ONCE ONCE IV ; Start at 10:00; Stop 08/02/16 at 10:29; Status Cancel Potassium Chloride (Klor-Con) 40 meq 1X ONCE PO Last administered on 10:17; Start 08/02/16 at 09:45; Stop 08/02/16 at 09:46; Status DC Daptomycin 220 mg/ Sodium Chloride 50 ml @ 100 mls/hr Q24H IV Last administered on 08/03/16 09:43; Start 08/02/16 at 10:15; Stop 08/03/16 at 10:29 ; Status DC Potassium Chloride (Klor-Con) 40 meq 1X ONCE PO Last administered on 12:57; Start 08/02/16 at 12:30; Stop 08/02/16 at 12:36; Status DC Morphine Sulfate 5 mg PRN Q2HRS PRN IV MODERATE TO SEVERE PAIN Last administered on 08/26/16 16:15; Start 08/02/16 at 13:30; Stop 08/26/16 at 17:31; Status DC Morphine Sulfate 8 mg PRN Q2HRS PRN IV MODERATE TO SEVERE PAIN Last administered on 08/04/16 14:58; Start 08/02/16 at 13:30; Stop 08/26/16 at 17:31 ; Status DC Acetaminophen (Tylenol) 650 mg PRN Q6HRS PRN PO TEMP GREATER THAN 100.4 Last administered on 08/26/16 00:24; Start 08/02/16 at 14:45; Stop 08/26/16 at 17:31; Status DC Lactated Ringer's 1,000 ml @ 50 mls/hr Q20H IV ; Start 08/05/16 at 07:00; Stop 08/05/16 at 18:13; Status DC Daptomycin 220 mg/ Sodium Chloride 50 ml @ 100 mls/hr Q24H IV ; Start 08/03/16 at 11:00; Status Cancel Potassium Chloride (Klor-Con) 40 meq 1X ONCE PO Last administered on 17:41; Start 08/02/16 at 17:15; Stop 08/02/16 at 17:18; Status DC Potassium Chloride (Klor-Con) 40 meq BIDWMEALS PO ; Start 08/03/16 at 08:00; Stop 08/03/16 at 11:08; Status DC Morphine Sulfate 5 mg 1X ONCE IV Last administered on 08/02/16 21:45; Start 08/02/16 at 21:30; Stop 08/02/16 at 21:33; Status DC Lorazepam (Ativan) 1 mg 1X ONCE IV Last administered on 08/02/16 21:30; Start 08/02/16 at 21:30; Stop 08/02/16 at 21:33; Status DC Acetaminophen (Acetaminophen Supp) [address] Q6HRS [address] CT MILD PAIN / TEMP Last administered on 08/13/16 03:13; Start 08/03/16 at 01:15; Stop 08/26/16 at 17:31; Status DC Albuterol/ Ipratropium (Duoneb) 3 ml RTQID NEB Last administered on 09/03/16 07:46; Start 08/03/16 at 08:00 Budesonide (Pulmicort) 0.5 mg RTBID NEB Last administered on 09/03/16 07:46; Start 08/03/16 at 08:00 Pantoprazole Sodium (Protonix Vial) 40 mg 1X ONCE IVP Last administered on 10:06; Start 08/03/16 at 08:00; Stop 08/03/16 at 08:01; Status DC Daptomycin 320 mg/ Sodium Chloride 50 ml @ 100 mls/hr Q24H IV Last administered on 08/04/16 10:03; Start 08/04/16 at 10:00; Stop 08/04/16 at 10:33 ; Status DC Lorazepam (Ativan) 0.5 mg PRN Q6HRS PRN IV ANXIETY / AGITATION Last administered on 08/04/16 09:12; Start 08/03/16 at 11:15; Stop 08/07/16 at 11:02 ; Status DC Lorazepam (Ativan) 0.5 mg 1X ONCE IV Last administered on 08/04/16 10:00; Start 08/04/16 at 10:00; Stop 08/04/16 at 10:01; Status DC Morphine Sulfate 5 mg 1X ONCE IV Last administered on 08/04/16 10:00; Start 08/04/16 at 10:00; Stop 08/04/16 at 10:01; Status DC Lorazepam (Ativan) 0.5 mg PRN Q4HRS PRN IV ANXIETY / AGITATION Last administered on 08/25/16 02:29; Start 08/04/16 at 10:00; Stop 08/26/16 at 17:31; Status DC Nafcillin Sodium 2 gm/Sodium Chloride 100 ml @ 200 mls/hr Q4HRS IV Last administered on 08/09/16 10:10; Start 08/04/16 at 12:00; Stop 08/09/16 at 11:49 ; Status DC Propofol 100 ml @ As Directed STK-MED ONCE IV ; Start 08/04/16 at 16:10; Stop 08/04/16 at 16:11; Status DC Succinylcholine Chloride (Anectine) 200 mg STK-MED ONCE .ROUTE ; Start 08/04/16 at 16:14; Stop 08/04/16 at 16:15; Status DC Succinylcholine Chloride (Anectine) 200 mg 1X ONCE IV ; Start 08/04/16 at 16:45 ; Stop 08/04/16 at 16:46; Status DC Propofol 100 ml @ 0 mls/hr CONT PRN IV SEE I/O RECORD Last administered on 08/17 10:18; Start 08/04/16 at 16:45; Stop 08/26/16 at 17:31; Status DC Lorazepam (Ativan) 0.5 mg 1X ONCE IV Last administered on 08/04/16 16:45; Start 08/04/16 at 16:45; Stop 08/04/16 at 16:46; Status DC Morphine Sulfate 5 mg 1X ONCE IV Last administered on 08/04/16 16:44; Start 08/04/16 at 16:45; Stop 08/04/16 at 16:46; Status DC Fentanyl Citrate 30 ml @ 0 mls/hr CONT PRN IV PROTOCOL Last administered on 07:32; Start 08/04/16 at 16:45; Stop 09/02/16 at 10:45; Status DC Chlorhexidine Gluconate (Peridex) 15 ml BID MM Last administered on 08/17/16 10:18; Start 08/04/16 at 21:00; Stop 08/17/16 at 19:36; Status DC Famotidine (Pepcid) 20 mg BID IVP Last administered on 08/26/16 08:43; Start at 17:00; Stop 08/26/16 at 17:31; Status DC Sodium Chloride 1,000 ml @ 100 mls/hr Q10H IV Last administered on 08/07/16 04:35; Start 08/05/16 at 09:00; Stop 08/07/16 at 08:59; Status DC Succinylcholine Chloride (Anectine) 200 mg STK-MED ONCE .ROUTE ; Start 08/04/16 at 16:00; Stop 08/05/16 at 12:32; Status DC Lorazepam (Ativan) 2 mg 1X ONCE IV Last administered on 08/05/16 20:43; Start 08/05/16 at 21:00; Stop 08/05/16 at 21:01; Status DC Furosemide (Lasix) 40 mg 1X PRN PRN IV blood transfusion Last administered on 14:17; Start 08/06/16 at 08:00; Stop 08/07/16 at 07:59; Status DC Sodium Bicarbonate 50 meq 1X ONCE IV Last administered on 08/06/16 14:06; Start 08/06/16 at 12:00; Stop 08/06/16 at 12:01; Status DC Calcium Chloride 1,000 mg STK-MED ONCE IV ; Start 08/04/16 at 12:00; Stop at 15:13; Status DC Epinephrine HCl (Epinephrine Syringe) 2 mg STK-MED ONCE .ROUTE ; Start 08/04/16 at 12:00; Stop 08/06/16 at 15:13; Status DC Sodium Bicarbonate 100 meq STK-MED ONCE .ROUTE ; Start 08/04/16 at 12:00; Stop 08/06/16 at 15:13; Status DC Amino Acids/ Glycerin/ Electrolytes 1,000 ml @ 100 mls/hr Q10H IV Last administered on 08/08/16 12:33; Start 08/07/16 at 10:00; Stop 08/09/16 at 09:42 ; Status DC Enoxaparin Sodium (Lovenox 40mg Syringe) 40 mg Q24H SQ Last administered on 13:10; Start 08/07/16 at 13:00; Stop 08/10/16 at 10:43; Status DC Vecuronium [place] (Norcuron Bolus) 10 mg STK-MED ONCE IV ; Start 08/07/16 at 13 :56; Stop 08/07/16 at 13:57; Status DC Vecuronium [place] (Norcuron Bolus) 6 mg 1X ONCE IV Last administered on 14:06; Start 08/07/16 at 14:00; Stop 08/07/16 at 14:05; Status DC Sodium Bicarbonate 50 meq 1X ONCE IV Last administered on 08/08/16 11:46; Start 08/08/16 at 11:45; Stop 08/08/16 at 11:46; Status DC Nystatin (Nystop) 1 james BID TP Last administered on 09/03/16 07:42; Start at 21:00 Linezolid 300 ml @ 300 mls/hr Q12HR IV Last administered on 08/14/16 20:51; Start 08/09/16 at 09:00; Stop 08/15/16 at 07:21; Status DC Sodium Chloride 1,000 ml @ 20 mls/hr Q24H IV Last administered on 08/26/16 06: 41; Start 08/09/16 at 09:45; Stop 08/27/16 at 13:51; Status DC Sodium Bicarbonate 150 meq/Dextrose 1,150 ml @ 100 mls/hr 1X ONCE IV Last administered on 08/09/16 12:25; Start 08/09/16 at 11:30; Stop 08/09/16 at 22:59 ; Status DC Piperacillin Sod/ Tazobactam Sod (Zosyn Per Pharmacy) 1 each PRN DAILY PRN MC SEE COMMENTS; Start 08/09/16 at 12:00; Stop 08/14/16 at 07:40; Status DC Piperacillin Sod/ Tazobactam Sod 4.5 gm/Sodium Chloride 100 ml @ 200 mls/hr Q6HRS IV Last administered on 08/14/16 05:58; Start 08/09/16 at 12:30; Stop at 07:33; Status DC Vecuronium [place] (Norcuron Bolus) 5 mg PRN Q4HRS PRN IV INCREASED RESPIRATORY ,NOT RELI Last administered on 08/11/16 02:56; Start 08/09/16 at 13:30; Stop at 17:31; Status DC Potassium Chloride 50 ml @ 100 mls/hr Q1H IV ; Start 08/10/16 at 09:30; Stop at 10:59; Status Cancel Potassium Chloride 100 ml @ 100 mls/hr Q1H IV Last administered on 08/10/16 16:28; Start 08/10/16 at 10:30; Stop 08/10/16 at 14:29; Status DC Potassium Chloride (KCl Oral Soln) 60 meq 1X ONCE PEG Last administered on 11:16; Start 08/10/16 at 11:00; Stop 08/10/16 at 11:01; Status DC Sodium Bicarbonate 150 meq/Dextrose 1,150 ml @ 100 mls/hr [id number] IV Last administered on 08/10/16 11:14; Start 08/10/16 at 11:00; Stop 08/10/16 at 22:29 ; Status DC Enoxaparin Sodium (Lovenox 40mg Syringe) 40 mg Q24H SQ ; Start 08/10/16 at 13:00 ; Stop 08/10/16 at 13:00; Status DC Micafungin Sodium 100 mg/Dextrose 100 ml @ 100 mls/hr Q24H IV Last administered on 08/13/16 16:26; Start 08/11/16 at 16:00; Stop 08/14/16 at 07:33 ; Status DC Furosemide (Lasix) 40 mg 1X ONCE IVP Last administered on 08/12/16 08:38; Start 08/12/16 at 08:00; Stop 08/12/16 at 08:06; Status DC Morphine Sulfate 1 mg PRN Q10MIN PRN IV SEVERE PAIN; Start 08/13/16 at 07:00; Stop 08/14/16 at 06:59; Status DC Lactated Ringer's 1,000 ml @ 0 mls/hr Q0M IV ; Start 08/13/16 at 07:00; Stop at 18:59; Status DC Lidocaine HCl 2 ml PRN 1X PRN ID PRIOR TO IV START; Start 08/13/16 at 07:00; Stop 08/14/16 at 06:59; Status DC Hydromorphone HCl (Dilaudid) 0.5 mg PRN Q10MIN PRN IV SEV PAIN, Second choice; Start 08/13/16 at 07:00; Stop 08/14/16 at 06:59; Status DC Prochlorperazine Edisylate (Compazine) 5 mg PACU PRN PRN IV NAUSEA, MRX1; Start 08/13/16 at 07:00; Stop 08/14/16 at 06:59; Status DC Morphine Sulfate 1 mg PRN Q10MIN PRN IV SEVERE PAIN; Start 08/13/16 at 07:00; Stop 08/14/16 at 06:59; Status DC Lactated Ringer's 1,000 ml @ 0 mls/hr Q0M IV ; Start 08/13/16 at 07:00; Stop at 18:59; Status DC Lidocaine HCl 2 ml PRN 1X PRN ID PRIOR TO IV START; Start 08/13/16 at 07:00; Stop 08/14/16 at 06:59; Status DC Hydromorphone HCl (Dilaudid) 0.5 mg PRN Q10MIN PRN IV SEV PAIN, Second choice; Start 08/13/16 at 07:00; Stop 08/14/16 at 06:59; Status DC Prochlorperazine Edisylate (Compazine) 5 mg PACU PRN PRN IV NAUSEA, MRX1; Start 08/13/16 at 07:00; Stop 08/14/16 at 06:59; Status DC Potassium Chloride 50 ml @ 50 mls/hr Q1H IV Last administered on 08/13/16 07: 57; Start 08/13/16 at 07:00; Stop 08/13/16 at 08:59; Status DC Rocuronium [place] (Zemuron) 50 mg STK-MED ONCE .ROUTE ; Start 08/13/16 at 12:50 ; Stop 08/13/16 at 12:51; Status DC Propofol 20 ml @ As Directed STK-MED ONCE IV ; Start 08/13/16 at 12:53; Stop at 12:54; Status DC Sevoflurane (Ultane) 30 ml STK-MED ONCE IH ; Start 08/13/16 at 14:04; Stop 08/13 at 14:05; Status DC Albumin Human 250 ml @ 100 mls/hr 1X ONCE IV Last administered on 08/13/16 23:38; Start 08/13/16 at 18:00; Stop 08/13/16 at 20:29; Status DC Albumin Human 500 ml @ 100 mls/hr 1X ONCE IV Last administered on 08/13/16 18:15; Start 08/13/16 at 18:00; Stop 08/13/16 at 22:59; Status DC Potassium Chloride 50 ml @ 50 mls/hr Q1H IV Last administered on 08/14/16 10: 46; Start 08/14/16 at 08:00; Stop 08/14/16 at 09:59; Status DC Nafcillin Sodium 2 gm/Sodium Chloride 100 ml @ 200 mls/hr Q4HRS IV Last administered on 08/23/16 08:51; Start 08/14/16 at 08:00; Stop 08/23/16 at 10:44; Status DC Enoxaparin Sodium (Lovenox 40mg Syringe) 40 mg Q24H SQ Last administered on 08/25 12:44; Start 08/14/16 at 12:00; Stop 08/26/16 at 11:53; Status DC Potassium Chloride (KCl Oral Soln) 40 meq 1X ONCE PEG Last administered on 07:54; Start 08/16/16 at 07:00; Stop 08/16/16 at 07:01; Status DC Potassium Chloride (KCl Oral Soln) 40 meq 1X ONCE PEG Last administered on 14:01; Start 08/16/16 at 12:00; Stop 08/16/16 at 12:01; Status DC Magnesium Sulfate/ Dextrose 50 ml @ 25 mls/hr 1X ONCE IV Last administered on 08/16/16 17:14; Start 08/16/16 at 16:30; Stop 08/16/16 at 18:29; Status DC Potassium Chloride (Klor-Con) 40 meq 1X ONCE PO ; Start 08/17/16 at 13:30; Stop 08/17/16 at 13:31; Status Cancel Potassium Chloride (KCl Oral Soln) 40 meq 1X ONCE PO Last administered on 08/17 15:34; Start 08/17/16 at 13:30; Stop 08/17/16 at 14:27; Status DC Potassium Chloride 100 ml @ 100 mls/hr PRN Q1HR PRN IV HYPOKALEMIA PER ICU PROTOCOL; Start 08/17/16 at 13:30; Status Cancel Potassium Chloride 50 ml @ 25 mls/hr PRN Q2HR PRN IV HYPOKALEMIA PER ICU PROTOCOL Last administered on 08/21/16 13:29; Start 08/17/16 at 13:30; Stop 08/21 at 13:34; Status DC Potassium Chloride (Klor-Con) 40 meq PRN Q2HR PRN PO HYPOKALEMIA PER ICU PROTOCOL; Start 08/17/16 at 13:30 Potassium Chloride 100 ml @ 100 mls/hr PRN Q1HR PRN IV HYPOKALEMIA PER ICU PROTOCOL; Start 08/17/16 at 13:30 Potassium Chloride 50 ml @ 25 mls/hr PRN Q2HR PRN IV HYPOKALEMIA PER ICU PROTOCOL; Start 08/17/16 at 13:30 Potassium Chloride (Klor-Con) 40 meq PRN Q2HR PRN PO HYPOKALEMIA PER ICU PROTOCOL; Start 08/17/16 at 13:30 Potassium Chloride 100 ml @ 100 mls/hr PRN Q1HR PRN IV HYPOKALEMIA PER ICU PROTOCOL; Start 08/17/16 at 13:30; Status Cancel Potassium Chloride 50 ml @ 25 mls/hr PRN Q2HR PRN IV HYPOKALEMIA PER ICU PROTOCOL Last administered on 08/27/16 14:37; Start 08/17/16 at 14:00 Magnesium Sulfate/ Dextrose 100 ml @ 50 mls/hr PRN DAILY PRN IV HYPOMAGNESIA PER ICU PROTOCOL Last administered on 08/20/16 22:26; Start 08/18/16 at 09:00 Potassium Phos/ Sodium Phos (Phos-Nak) 1 pkt BID PO ; Start 08/17/16 at 21:00; Stop 08/18/16 at 09:01; Status DC Sodium Phosphate 40 mmol/Dextrose 263.3333 ml @ 62.5 mls/hr PRN 1X PRN IV HYPOPHOSP PER ICU PROTOCOL; Start 08/17/16 at 13:30; Status Cancel Potassium Chloride (KCl Oral Soln) 40 meq 1X ONCE PEG Last administered on 08/19 07:57; Start 08/19/16 at 07:45; Stop 08/19/16 at 07:46; Status DC Potassium Chloride (KCl Oral Soln) 40 meq 1X ONCE PEG Last administered on 08/19 11:36; Start 08/19/16 at 12:00; Stop 08/19/16 at 12:01; Status DC Alprazolam (Xanax) 0.5 mg 1X ONCE PO Last administered on 08/19/16 11:35; Start 08/19/16 at 11:15; Stop 08/19/16 at 11:16; Status DC Alprazolam (Xanax) 0.5 mg TID PEG Last administered on 08/23/16 20:34; Start at 15:00; Stop 08/24/16 at 08:11; Status DC Potassium Chloride 50 ml @ 50 mls/hr Q1H IV Last administered on 08/22/16 09:40 ; Start 08/22/16 at 08:30; Stop 08/22/16 at 10:29; Status DC Haloperidol Lactate (Haldol) 5 mg PRN Q6HRS PRN IVP AGITATION Last administered on 08/31/16 02:14; Start 08/22/16 at 09:15 Haloperidol Lactate (Haldol) 2 mg 1X ONCE IVP ; Start 08/22/16 at 09:15; Stop at 09:27; Status DC Magnesium Sulfate/ Dextrose 100 ml @ 50 mls/hr DAILY IV Last administered on 10:00; Start 08/23/16 at 09:00; Stop 08/26/16 at 08:59; Status DC Albumin Human 100 ml @ 100 mls/hr [id number] IV Last administered on 08/23/16 17:25 ; Start 08/23/16 at 09:00; Stop 08/23/16 at 16:59; Status DC Furosemide (Lasix) 40 mg [id number] IVP Last administered on 08/23/16 17:26; Start 08/23/16 at 09:00; Stop 08/23/16 at 16:01; Status DC Vitamin A/Vitamin D (Vitamin A & D Ointment) 1 james PRN Q1HR PRN TP SKIN PROTECTION Last administered on 08/31/16 17:52; Start 08/23/16 at 08:45 Cefepime HCl 1 gm/ Sodium Chloride 50 ml @ 100 mls/hr Q8HRS IV Last administered on 09/03/16 05:33; Start 08/23/16 at 14:00 Ondansetron HCl (Zofran) 4 mg PRN Q6HRS PRN IV NAUSEA/VOMITING Last administered on 08/23/16 19:27; Start 08/23/16 at 19:15 Alprazolam (Xanax) 0.25 mg TID PEG ; Start 08/24/16 at 09:00; Stop 08/24/16 at 09: 28; Status DC Diphenhydramine HCl (Benadryl) 25 mg HS PO ; Start 08/24/16 at 21:00; Stop at 21:00; Status DC Zolpidem Tartrate (Ambien) 5 mg PRN QHS PRN PO INSOMNIA Last administered on 20:46; Start 08/24/16 at 08:15 Alprazolam (Xanax) 0.5 mg TID PEG Last administered on 09/03/16 07:40; Start 08/24/16 at 09:00 Diphenhydramine HCl (Benadryl) 25 mg PRN QHS PRN PO sleep Last administered on 09/03/16 02:16; Start 08/24/16 at 21:00 Quetiapine Fumarate (SEROquel) 50 mg HS PO Last administered on 09/02/16 20:38 ; Start 08/24/16 at 21:00 Potassium Chloride 50 ml @ 50 mls/hr Q1H IV Last administered on 08/25/16 09:45 ; Start 08/25/16 at 08:00; Stop 08/25/16 at 09:59; Status DC Iohexol (Omnipaque 300 Mg/ml) 75 ml 1X ONCE IV Last administered on 08/25/16 15:45; Start 08/25/16 at 15:45; Stop 08/25/16 at 15:46; Status DC Iohexol (Omnipaque 240 Mg/ml) 50 ml 1X ONCE PO Last administered on 08/25/16 15:45; Start 08/25/16 at 15:45; Stop 08/25/16 at 15:46; Status DC Info (Do NOT chart on this entry -- for MONITORING) 1 each PRN DAILY PRN MC SEE COMMENTS; Start 08/25/16 at 16:00; Stop 08/27/16 at 15:59; Status DC Chlorhexidine Gluconate (Peridex) 15 ml BID SWSP Last administered on 07:40; Start 08/26/16 at 09:00 Potassium Chloride 50 ml @ 50 mls/hr Q1H IV ; Start 08/26/16 at 11:30; Stop at 11:30; Status DC Acetaminophen (Tylenol) 650 mg PRN Q6HRS PRN PEG MILD PAIN / TEMP Last administered on 09/03/16 07:40; Start 08/26/16 at 12:00 Lidocaine/Sodium Bicarbonate (Buffered Lidocaine 1%) 20 ml STK-MED ONCE IJ ; Start 08/26/16 at 14:50; Stop 08/26/16 at 14:51; Status DC Lidocaine/Sodium Bicarbonate (Buffered Lidocaine 1%) 20 ml 1X ONCE IJ Last administered on 08/26/16 15:42; Start 08/26/16 at 15:45; Stop 08/26/16 at 15:46; Status DC Lansoprazole (Prevacid) 30 mg BIDBFRMEAL FT Last administered on 09/03/16 07: 40; Start 08/27/16 at 17:30 Potassium Chloride 50 ml @ 50 mls/hr Q1H IV Last administered on 08/27/16 13:23 ; Start 08/27/16 at 13:00; Stop 08/27/16 at 14:59; Status DC Alteplase, Recombinant 5 mg/ Sterile Water 50 ml @ 0 mls/hr 1X ONCE INT CAT Last administered on 08/28/16 15:03; Start 08/28/16 at 10:45; Stop 08/28/16 at 10:46; Status DC Ferrous Sulfate 300 mg DAILY FT Last administered on 09/03/16 07:40; Start 03/07 at 09:00 Alteplase, Recombinant 5 mg/ Sterile Water 50 ml @ 0 mls/hr 1X ONCE INT CAT Last administered on 08/29/16 11:00; Start 08/29/16 at 11:00; Stop 08/29/16 at 11:01; Status DC Oxycodone/ Acetaminophen (Percocet 5/325) 1 tab PRN BID PRN PO PAIN Last administered on 09/02/16 10:36; Start 08/29/16 at 11:45; Stop 09/02/16 at 10:45 ; Status DC Metronidazole (Flagyl) 500 mg Q12HR PEG Last administered on 09/03/16 10:04; Start 08/30/16 at 09:00 Oxycodone HCl (Roxicodone) 10 mg Q4HRS PRN PO PAIN Last administered on 06:32; Start 08/30/16 at 15:15; Stop 09/02/16 at 10:45; Status DC Cholestyramine Resin (Questran Light) 4 gm QIDPMEDS PO Last administered on 22:29; Start 08/31/16 at 10:00 Diphenhydramine HCl (Benadryl) 25 mg PRN QHS PRN PO INSOMNIA; Start 08/31/16 at 10:30 Oxycodone HCl (Roxicodone) 5 mg Q4HRS PRN PO PAIN Last administered on 07:40; Start 09/02/16 at 10:45 Oxycodone HCl (Roxicodone) 10 mg Q4HRS PRN PO PAIN Last administered on 17:52; Start 09/02/16 at 11:00 Lactobacillus Acidophilus (Bacid, Jesi-Bid) 1 tab TIDWMEALS PO Last administered on 09/03/16 10:04; Start 09/03/16 at 08:00 Cholestyramine Resin (Questran Light) 4 gm BID@1000,2100 PEG ; Start 09/03/16 at 10:00 Active Scripts Active Reported No Known Medications Prior To Admisstion (Info) Each 1 Each Vitals/I & O Vital Sign - Last 24 Hours 09/02/16 09/02/16 09/02/16 09/02/16 10:36 11:00 12:00 12:00 Temp 99.0 99.0 Pulse 102 96 Resp 21 21 22 B/P (MAP) 111/75 (87) 119/83 (95) Pulse Ox 100 100 100 O2 Delivery trach shield Trach Shield Trach Shield Trach Collar O2 Flow Rate 8.0 8.0 8.0 8.0 09/02/16 09/02/16 09/02/16 09/02/16 12:33 14:00 14:21 15:00 Pulse 97 95 Resp 24 18 21 B/P (MAP) 111/78 (89) 110/79 (89) Pulse Ox 100 100 100 97 O2 Delivery Tracheal Collar Trach Shield Trach Shield O2 Flow Rate 10.0 8.0 8.0 8.0 5/15/17 5/15/17 5/15/17 5/15/17 16:00 16:00 17:00 17:27 Temp 99.2 99.2 Pulse 98 96 Resp 20 20 B/P (MAP) 116/75 (89) Pulse Ox 99 98 100 O2 Delivery Trach Shield Trach Collar Trach Shield Tracheal Collar O2 Flow Rate 8.0 8.0 8.0 10.0 5/15/17 5/15/17 5/15/17 5/15/17 17:52 18:00 18:55 19:00 Pulse 104 103 Resp 18 19 21 19 B/P (MAP) 111/81 (91) 118/74 (89) Pulse Ox 100 100 100 100 O2 Delivery Trach Shield trach shield Trach Shield O2 Flow Rate 10.0 8.0 8.0 8.0 15/17 5/15/17 5/15/17 5/15/17 20:00 20:00 20:26 21:00 Temp 98.9 98.9 Pulse 104 111 Resp 24 24 B/P (MAP) 120/76 (91) 116/58 (77) Pulse Ox 98 98 99 O2 Delivery Trach Collar Trach Shield Tracheal Collar Trach Shield O2 Flow Rate 8.0 10.0 15/17 5/15/17 5/16/17 5/16/17 22:00 23:00 00:00 00:00 Temp 98.8 98.8 Pulse 105 106 105 Resp 20 24 20 B/P (MAP) 110/58 (75) 112/76 (88) 111/68 (82) Pulse Ox 99 99 99 O2 Delivery Trach Shield Trach Shield Trach Shield Trach Collar O2 Flow Rate 8.0 516/17 5/16/17 5/16/17 5/16/17 00:50 01:00 02:00 02:16 Pulse 104 104 Resp 20 20 20 B/P (MAP) 110/70 (83) 105/66 (79) Pulse Ox 99 98 99 99 O2 Delivery Tracheal Collar Trach Shield Trach Shield Tracheal Collar O2 Flow Rate 8.0 8.0 5/16/17 5/16/17 5/16/17 5/16/17 03:00 04:00 04:00 05:00 Temp 98.9 98.9 Pulse 104 104 118 Resp 20 20 20 B/P (MAP) 105/66 (79) 111/67 (82) 112/66 (81) Pulse Ox 99 99 99 O2 Delivery Trach Shield Trach Collar Trach Shield Trach Shield O2 Flow Rate 8.0 09/03/16 09/03/16 09/03/16 09/03/16 06:00 07:00 07:40 08:00 Pulse 100 106 Resp 20 20 16 B/P (MAP) 113/71 (85) 111/63 (79) Pulse Ox 99 99 99 O2 Delivery Trach Shield Trach Shield Ventilator Trach Collar O2 Flow Rate 8.0 8.0 8.0 09/03/16 09/03/16 09/03/16 08:00 08:40 09:00 Temp 98.9 98.9 Pulse 105 107 Resp 18 20 21 B/P (MAP) 113/68 (83) 104/70 (81) Pulse Ox 100 100 100 O2 Delivery Trach Shield Trach Shield O2 Flow Rate 8.0 8.0 8.0 Intake and Output 09/02/16 09/02/16 09/03/16 15:00 23:00 07:00 Intake Total 300 ml 814 ml 1221 ml Output Total 830 ml 750 ml 1375 ml Balance -530 ml 64 ml -154 ml Assessment Stable on tube feedings. Plan of Care: Continue current Tx, Mgmt Plan of Care Note Consider trial po? Swallow eval? RICHAR LITTLE MD September 03, 2016 10:17
--- NOTE | 2016-09-03 10:34 | PDOC ---
PULMONARY PROGRESS NOTES Subjective off vent 48 hrs s/p bilateral chest tubes, with removal s/p intra pleural TPA left side 08/28, 08/29 Vitals Vital Signs Date Time Temp Pulse Resp B/P (MAP) Pulse Ox O2 Delivery O2 Flow Rate FiO2 09/03/16 09:00 107 21 104/70 (81) 100 Trach Shield 8.0 09/03/16 08:00 98.9 98.9 Comments ros as mentioned as above other sys otherwise neg ROS: No Chest Pain, No Abdominal Pain General: Alert, No acute distress HEENT: Other (nc at perrl. poor dentition, nose clear) Lungs: Other (decrease bs) Cardiovascular: S1, S2, Other Abdomen: Soft, Non-tender, Other (no mass) Neuro Exam: Alert, Oriented Extremities: Other (edema) Skin: Warm Labs Laboratory Tests Test 09/02/16 05:37 09/03/16 05:30 White Blood Count 11.6 x10^3/uL (4.0-11.0) 10.8 x10^3/uL (4.0-11.0) Red Blood Count 3.14 x10^6/uL (3.50-5.40) 3.06 x10^6/uL (3.50-5.40) Hemoglobin 9.5 g/dL (12.0-15.5) 9.1 g/dL (12.0-15.5) Hematocrit 27.7 % (36.0-47.0) 26.9 % (36.0-47.0) Mean Corpuscular Volume 88 fL (79-100) 88 fL (79-100) Mean Corpuscular Hemoglobin 30 pg (25-35) 30 pg (25-35) Mean Corpuscular Hemoglobin Concent 34 g/dL (31-37) 34 g/dL (31-37) Red Cell Distribution Width 16.8 % (11.5-14.5) 17.4 % (11.5-14.5) Platelet Count 284 x10^3/uL (140-400) 294 x10^3/uL (140-400) Neutrophils (%) (Auto) 81 % (31-73) 76 % (31-73) Lymphocytes (%) (Auto) 10 % (24-48) 14 % (24-48) Monocytes (%) (Auto) 6 % (0-9) 7 % (0-9) Eosinophils (%) (Auto) 3 % (0-3) 3 % (0-3) Basophils (%) (Auto) 0 % (0-3) 0 % (0-3) Neutrophils # (Auto) 9.4 x10^3uL (1.8-7.7) 8.2 x10^3uL (1.8-7.7) Lymphocytes # (Auto) 1.1 x10^3/uL (1.0-4.8) 1.5 x10^3/uL (1.0-4.8) Monocytes # (Auto) 0.7 x10^3/uL (0.0-1.1) 0.8 x10^3/uL (0.0-1.1) Eosinophils # (Auto) 0.3 x10^3/uL (0.0-0.7) 0.3 x10^3/uL (0.0-0.7) Basophils # (Auto) 0.0 x10^3/uL (0.0-0.2) 0.0 x10^3/uL (0.0-0.2) Sodium Level 133 mmol/L (136-145) Potassium Level 3.8 mmol/L (3.5-5.1) Chloride Level 100 mmol/L (98-107) Carbon Dioxide Level 28 mmol/L (21-32) Anion Gap 5 (6-14) Blood Urea Nitrogen 17 mg/dL (7-20) Creatinine 0.4 mg/dL (0.6-1.0) Estimated GFR (Cockcroft-Gault) 175.0 Glucose Level 110 mg/dL (70-99) Calcium Level 8.0 mg/dL (8.5-10.1) Laboratory Tests Test 09/03/16 05:30 White Blood Count 10.8 x10^3/uL (4.0-11.0) Red Blood Count 3.06 x10^6/uL (3.50-5.40) Hemoglobin 9.1 g/dL (12.0-15.5) Hematocrit 26.9 % (36.0-47.0) Mean Corpuscular Volume 88 fL (79-100) Mean Corpuscular Hemoglobin 30 pg (25-35) Mean Corpuscular Hemoglobin Concent 34 g/dL (31-37) Red Cell Distribution Width 17.4 % (11.5-14.5) Platelet Count 294 x10^3/uL (140-400) Neutrophils (%) (Auto) 76 % (31-73) Lymphocytes (%) (Auto) 14 % (24-48) Monocytes (%) (Auto) 7 % (0-9) Eosinophils (%) (Auto) 3 % (0-3) Basophils (%) (Auto) 0 % (0-3) Neutrophils # (Auto) 8.2 x10^3uL (1.8-7.7) Lymphocytes # (Auto) 1.5 x10^3/uL (1.0-4.8) Monocytes # (Auto) 0.8 x10^3/uL (0.0-1.1) Eosinophils # (Auto) 0.3 x10^3/uL (0.0-0.7) Basophils # (Auto) 0.0 x10^3/uL (0.0-0.2) Medications Active Scripts Medications Dose Route/Sig Days Date Category No Known Medications Prior To Admisstion (Info) Each 1 Each 08/06/16 Reported Comments cxr reviewed, 09/02 interval improvement in right-sided parenchymal opacities / volume loss Left base Impression . 1. Acute hypoxemic respiratory failure, multifactorial in etiology / increase secretions , repeat sputum with E-Coli 2. bilateral loculated effusions, suspected empyema, s/p bilateral chest tubes , VERY LOW GLUCOSE(9), LOW PH 3. Bilateral pulmonary nodules with cavitation, due to septic emboli. 4. Endocarditis. right sided, improving vegetations 5. ? chronic obstructive pulmonary disease. 6. Leukocytosis./fever, suspect due to empyema, bilateral 7. Anemia, ongoing 8. Thrombocytopenia. off lovenox 10. Intravenous drug abuse. 11. Tobacco habituation. 12. MSSA septicemia/pneumonia/ CHF 13. ct chest reviewed/ bilateral loculated effusion, suspect empyema, sig improvement post TPA on left Plan . T-shield 24 hrs s/p removal of bilateral chest tube s/p intra pleural TPA left side Overall left empyema has sig. improved ,only small LL pockets. Trach secretions for c/s, E-coli, on antibiotic per ID, antibiotics per ID, bronchodilators keep I<O off lovenox, continues to have low Hb and need for transfusion, on scds pepcid for prophylaxis discussed w RN/RT, prn PM valve speech f/u CARLEY WORKMAN MD September 03, 2016 10:34
--- NOTE | 2016-09-03 10:57 | PDOC ---
PROGRESS NOTES Chief Complaint Chief Complaint Sepsis Acute hypoxic respir failure ASSESSMENT AND PLAN: 1. Sepsis: resolved 2. 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 MSSA. on cefepime (to cover E.coli as well) 3. PNA: septic emboli. sputum now with heavy growth E.coli. cavitary lesions 4. 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 rpt CT chest on 08/31 with improvement. Flagyl added as per Dr Will 5. Acute respir failure: trached, vent weaned to trach shield. failed swallow study with silent aspir on 08/31. speech path "rehab" 6. Diarrhea: rectal tube d/c.ed today. C.diff neg. prob due to TF - changed. on questran 7. Anemia: severe, recurrent: multifactorial, incl severe inflammation, HCV toxicity. inflammation confirmed by iron studies. b12/folate WNL. on daily low dose Fe 8. Thrombocytopenia: 2/2 infection, now resolved. monitor 9. ELMIRA: resolved 10. Hep C: new dx during current admit. F/U on O/P basis for rx 11. Polysubstance abuse: switched to oxy q4PRN. add adjunct NSAIDs, heat. wean narcotics 12. Depression: increase xanax to qid PRN. start Zoloft 13. Malnutrition: severe, POA, weight loss prior to admit, albumin critically low. suspect large component of inflammation as well. PEG feeds changed History of Present Illness History of Present Illness abd discomfort, no pain. in good spirits Vitals Vitals Vital Signs Date Time Temp Pulse Resp B/P (MAP) Pulse Ox O2 Delivery O2 Flow Rate FiO2 09/03/16 10:00 98 11 116/74 (88) 100 Trach Shield 8.0 09/03/16 08:00 98.9 98.9 Physical Exam General: Alert, Cooperative, No acute distress Heart: Normal S1, Normal S2, No murmurs Lungs: Other (decrease bs) Abdomen: Normal bowel sounds, Other (Hepatosplenomegaly present) Extremities: No cyanosis, Other (1+ edema) Skin: No breakdown, No significant lesion Labs LABS Laboratory Tests Test 09/03/16 05:30 White Blood Count 10.8 x10^3/uL (4.0-11.0) Red Blood Count 3.06 x10^6/uL (3.50-5.40) Hemoglobin 9.1 g/dL (12.0-15.5) Hematocrit 26.9 % (36.0-47.0) Mean Corpuscular Volume 88 fL (79-100) Mean Corpuscular Hemoglobin 30 pg (25-35) Mean Corpuscular Hemoglobin Concent 34 g/dL (31-37) Red Cell Distribution Width 17.4 % (11.5-14.5) Platelet Count 294 x10^3/uL (140-400) Neutrophils (%) (Auto) 76 % (31-73) Lymphocytes (%) (Auto) 14 % (24-48) Monocytes (%) (Auto) 7 % (0-9) Eosinophils (%) (Auto) 3 % (0-3) Basophils (%) (Auto) 0 % (0-3) Neutrophils # (Auto) 8.2 x10^3uL (1.8-7.7) Lymphocytes # (Auto) 1.5 x10^3/uL (1.0-4.8) Monocytes # (Auto) 0.8 x10^3/uL (0.0-1.1) Eosinophils # (Auto) 0.3 x10^3/uL (0.0-0.7) Basophils # (Auto) 0.0 x10^3/uL (0.0-0.2) Comment Review of Relevant I have reviewed the following items shanta (where applicable) has been applied. Labs Laboratory Tests Test 09/02/16 05:37 09/03/16 05:30 White Blood Count 11.6 x10^3/uL (4.0-11.0) 10.8 x10^3/uL (4.0-11.0) Red Blood Count 3.14 x10^6/uL (3.50-5.40) 3.06 x10^6/uL (3.50-5.40) Hemoglobin 9.5 g/dL (12.0-15.5) 9.1 g/dL (12.0-15.5) Hematocrit 27.7 % (36.0-47.0) 26.9 % (36.0-47.0) Mean Corpuscular Volume 88 fL (79-100) 88 fL (79-100) Mean Corpuscular Hemoglobin 30 pg (25-35) 30 pg (25-35) Mean Corpuscular Hemoglobin Concent 34 g/dL (31-37) 34 g/dL (31-37) Red Cell Distribution Width 16.8 % (11.5-14.5) 17.4 % (11.5-14.5) Platelet Count 284 x10^3/uL (140-400) 294 x10^3/uL (140-400) Neutrophils (%) (Auto) 81 % (31-73) 76 % (31-73) Lymphocytes (%) (Auto) 10 % (24-48) 14 % (24-48) Monocytes (%) (Auto) 6 % (0-9) 7 % (0-9) Eosinophils (%) (Auto) 3 % (0-3) 3 % (0-3) Basophils (%) (Auto) 0 % (0-3) 0 % (0-3) Neutrophils # (Auto) 9.4 x10^3uL (1.8-7.7) 8.2 x10^3uL (1.8-7.7) Lymphocytes # (Auto) 1.1 x10^3/uL (1.0-4.8) 1.5 x10^3/uL (1.0-4.8) Monocytes # (Auto) 0.7 x10^3/uL (0.0-1.1) 0.8 x10^3/uL (0.0-1.1) Eosinophils # (Auto) 0.3 x10^3/uL (0.0-0.7) 0.3 x10^3/uL (0.0-0.7) Basophils # (Auto) 0.0 x10^3/uL (0.0-0.2) 0.0 x10^3/uL (0.0-0.2) Sodium Level 133 mmol/L (136-145) Potassium Level 3.8 mmol/L (3.5-5.1) Chloride Level 100 mmol/L (98-107) Carbon Dioxide Level 28 mmol/L (21-32) Anion Gap 5 (6-14) Blood Urea Nitrogen 17 mg/dL (7-20) Creatinine 0.4 mg/dL (0.6-1.0) Estimated GFR (Cockcroft-Gault) 175.0 Glucose Level 110 mg/dL (70-99) Calcium Level 8.0 mg/dL (8.5-10.1) Laboratory Tests Test 09/03/16 05:30 White Blood Count 10.8 x10^3/uL (4.0-11.0) Red Blood Count 3.06 x10^6/uL (3.50-5.40) Hemoglobin 9.1 g/dL (12.0-15.5) Hematocrit 26.9 % (36.0-47.0) Mean Corpuscular Volume 88 fL (79-100) Mean Corpuscular Hemoglobin 30 pg (25-35) Mean Corpuscular Hemoglobin Concent 34 g/dL (31-37) Red Cell Distribution Width 17.4 % (11.5-14.5) Platelet Count 294 x10^3/uL (140-400) Neutrophils (%) (Auto) 76 % (31-73) Lymphocytes (%) (Auto) 14 % (24-48) Monocytes (%) (Auto) 7 % (0-9) Eosinophils (%) (Auto) 3 % (0-3) Basophils (%) (Auto) 0 % (0-3) Neutrophils # (Auto) 8.2 x10^3uL (1.8-7.7) Lymphocytes # (Auto) 1.5 x10^3/uL (1.0-4.8) Monocytes # (Auto) 0.8 x10^3/uL (0.0-1.1) Eosinophils # (Auto) 0.3 x10^3/uL (0.0-0.7) Basophils # (Auto) 0.0 x10^3/uL (0.0-0.2) Microbiology 08/12/16 Blood Fungal Culture - Preliminary, Resulted 08/12/16 Fungal Culture Result 1 - Preliminary, Resulted 08/26/16 Gram Stain - Final, Complete 08/22/16 Gram Stain - Final, Complete 08/31/16 Urine Culture - Final, Complete 08/31/16 Urine Culture Result 1 (JAMEY) - Final, Complete Medications Current Medications Amino Acids/ Glycerin/ Electrolytes 1,000 ml @ 100 mls/hr Q10H IV Last administered on 08/05/16t 02:40; Start 08/02/16 at 03:00; Stop 08/05/16 at 08:50 ; Status DC Morphine Sulfate 2 mg PRN Q2HR PRN IV SEVERE PAIN Last administered on 11:59; Start 08/02/16 at 02:30; Stop 08/02/16 at 13:28; Status DC Daptomycin 220 mg/ Sodium Chloride 50 ml @ 100 mls/hr Q24H IV ; Start 08/02/16 at 09:15; Stop 08/02/16 at 15:58; Status DC Cefepime HCl 1 gm/ Sodium Chloride 50 ml @ 100 mls/hr Q12HR IV Last administered on 08/04/16 08:10; Start 08/02/16 at 10:00; Stop 08/04/16 at 10:33 ; Status DC Daptomycin 220 mg/ Sodium Chloride 50 ml @ 100 mls/hr ONCE ONCE IV ; Start at 10:00; Stop 08/02/16 at 10:29; Status Cancel Potassium Chloride (Klor-Con) 40 meq 1X ONCE PO Last administered on 10:17; Start 08/02/16 at 09:45; Stop 08/02/16 at 09:46; Status DC Daptomycin 220 mg/ Sodium Chloride 50 ml @ 100 mls/hr Q24H IV Last administered on 08/03/16 09:43; Start 08/02/16 at 10:15; Stop 08/03/16 at 10:29 ; Status DC Potassium Chloride (Klor-Con) 40 meq 1X ONCE PO Last administered on 12:57; Start 08/02/16 at 12:30; Stop 08/02/16 at 12:36; Status DC Morphine Sulfate 5 mg PRN Q2HRS PRN IV MODERATE TO SEVERE PAIN Last administered on 08/26/16 16:15; Start 08/02/16 at 13:30; Stop 08/26/16 at 17:31; Status DC Morphine Sulfate 8 mg PRN Q2HRS PRN IV MODERATE TO SEVERE PAIN Last administered on 08/04/16 14:58; Start 08/02/16 at 13:30; Stop 08/26/16 at 17:31 ; Status DC Acetaminophen (Tylenol) 650 mg PRN Q6HRS PRN PO TEMP GREATER THAN 100.4 Last administered on 08/26/16 00:24; Start 08/02/16 at 14:45; Stop 08/26/16 at 17:31; Status DC Lactated Ringer's 1,000 ml @ 50 mls/hr Q20H IV ; Start 08/05/16 at 07:00; Stop 08/05/16 at 18:13; Status DC Daptomycin 220 mg/ Sodium Chloride 50 ml @ 100 mls/hr Q24H IV ; Start 08/03/16 at 11:00; Status Cancel Potassium Chloride (Klor-Con) 40 meq 1X ONCE PO Last administered on 17:41; Start 08/02/16 at 17:15; Stop 08/02/16 at 17:18; Status DC Potassium Chloride (Klor-Con) 40 meq BIDWMEALS PO ; Start 08/03/16 at 08:00; Stop 08/03/16 at 11:08; Status DC Morphine Sulfate 5 mg 1X ONCE IV Last administered on 08/02/16 21:45; Start 08/02/16 at 21:30; Stop 08/02/16 at 21:33; Status DC Lorazepam (Ativan) 1 mg 1X ONCE IV Last administered on 08/02/16 21:30; Start 08/02/16 at 21:30; Stop 08/02/16 at 21:33; Status DC Acetaminophen (Acetaminophen Supp) [address]RS [address] MILD PAIN / TEMP Last administered on 08/13/16 03:13; Start 08/03/16 at 01:15; Stop 08/26/16 at 17:31; Status DC Albuterol/ Ipratropium (Duoneb) 3 ml RTQID NEB Last administered on 09/03/16 07:46; Start 08/03/16 at 08:00 Budesonide (Pulmicort) 0.5 mg RTBID NEB Last administered on 09/03/16 07:46; Start 08/03/16 at 08:00 Pantoprazole Sodium (Protonix Vial) 40 mg 1X ONCE IVP Last administered on 10:06; Start 08/03/16 at 08:00; Stop 08/03/16 at 08:01; Status DC Daptomycin 320 mg/ Sodium Chloride 50 ml @ 100 mls/hr Q24H IV Last administered on 08/04/16 10:03; Start 08/04/16 at 10:00; Stop 08/04/16 at 10:33 ; Status DC Lorazepam (Ativan) 0.5 mg PRN Q6HRS PRN IV ANXIETY / AGITATION Last administered on 08/04/16 09:12; Start 08/03/16 at 11:15; Stop 08/07/16 at 11:02 ; Status DC Lorazepam (Ativan) 0.5 mg 1X ONCE IV Last administered on 08/04/16 10:00; Start 08/04/16 at 10:00; Stop 08/04/16 at 10:01; Status DC Morphine Sulfate 5 mg 1X ONCE IV Last administered on 08/04/16 10:00; Start 08/04/16 at 10:00; Stop 08/04/16 at 10:01; Status DC Lorazepam (Ativan) 0.5 mg PRN Q4HRS PRN IV ANXIETY / AGITATION Last administered on 08/25/16 02:29; Start 08/04/16 at 10:00; Stop 08/26/16 at 17:31; Status DC Nafcillin Sodium 2 gm/Sodium Chloride 100 ml @ 200 mls/hr Q4HRS IV Last administered on 08/09/16 10:10; Start 08/04/16 at 12:00; Stop 08/09/16 at 11:49 ; Status DC Propofol 100 ml @ As Directed STK-MED ONCE IV ; Start 08/04/16 at 16:10; Stop 08/04/16 at 16:11; Status DC Succinylcholine Chloride (Anectine) 200 mg STK-MED ONCE .ROUTE ; Start 08/04/16 at 16:14; Stop 08/04/16 at 16:15; Status DC Succinylcholine Chloride (Anectine) 200 mg 1X ONCE IV ; Start 08/04/16 at 16:45 ; Stop 08/04/16 at 16:46; Status DC Propofol 100 ml @ 0 mls/hr CONT PRN IV SEE I/O RECORD Last administered on 08/17 10:18; Start 08/04/16 at 16:45; Stop 08/26/16 at 17:31; Status DC Lorazepam (Ativan) 0.5 mg 1X ONCE IV Last administered on 08/04/16 16:45; Start 08/04/16 at 16:45; Stop 08/04/16 at 16:46; Status DC Morphine Sulfate 5 mg 1X ONCE IV Last administered on 08/04/16 16:44; Start 08/04/16 at 16:45; Stop 08/04/16 at 16:46; Status DC Fentanyl Citrate 30 ml @ 0 mls/hr CONT PRN IV PROTOCOL Last administered on 07:32; Start 08/04/16 at 16:45; Stop 09/02/16 at 10:45; Status DC Chlorhexidine Gluconate (Peridex) 15 ml BID MM Last administered on 08/17/16 10:18; Start 08/04/16 at 21:00; Stop 08/17/16 at 19:36; Status DC Famotidine (Pepcid) 20 mg BID IVP Last administered on 08/26/16 08:43; Start at 17:00; Stop 08/26/16 at 17:31; Status DC Sodium Chloride 1,000 ml @ 100 mls/hr Q10H IV Last administered on 08/07/16 04:35; Start 08/05/16 at 09:00; Stop 08/07/16 at 08:59; Status DC Succinylcholine Chloride (Anectine) 200 mg STK-MED ONCE .ROUTE ; Start 08/04/16 at 16:00; Stop 08/05/16 at 12:32; Status DC Lorazepam (Ativan) 2 mg 1X ONCE IV Last administered on 08/05/16 20:43; Start 08/05/16 at 21:00; Stop 08/05/16 at 21:01; Status DC Furosemide (Lasix) 40 mg 1X PRN PRN IV blood transfusion Last administered on 14:17; Start 08/06/16 at 08:00; Stop 08/07/16 at 07:59; Status DC Sodium Bicarbonate 50 meq 1X ONCE IV Last administered on 08/06/16 14:06; Start 08/06/16 at 12:00; Stop 08/06/16 at 12:01; Status DC Calcium Chloride 1,000 mg STK-MED ONCE IV ; Start 08/04/16 at 12:00; Stop at 15:13; Status DC Epinephrine HCl (Epinephrine Syringe) 2 mg STK-MED ONCE .ROUTE ; Start 08/04/16 at 12:00; Stop 08/06/16 at 15:13; Status DC Sodium Bicarbonate 100 meq STK-MED ONCE .ROUTE ; Start 08/04/16 at 12:00; Stop 08/06/16 at 15:13; Status DC Amino Acids/ Glycerin/ Electrolytes 1,000 ml @ 100 mls/hr Q10H IV Last administered on 08/08/16 12:33; Start 08/07/16 at 10:00; Stop 08/09/16 at 09:42 ; Status DC Enoxaparin Sodium (Lovenox 40mg Syringe) 40 mg Q24H SQ Last administered on 13:10; Start 08/07/16 at 13:00; Stop 08/10/16 at 10:43; Status DC Vecuronium [place] (Norcuron Bolus) 10 mg STK-MED ONCE IV ; Start 08/07/16 at 13 :56; Stop 08/07/16 at 13:57; Status DC Vecuronium [place] (Norcuron Bolus) 6 mg 1X ONCE IV Last administered on 14:06; Start 08/07/16 at 14:00; Stop 08/07/16 at 14:05; Status DC Sodium Bicarbonate 50 meq 1X ONCE IV Last administered on 08/08/16 11:46; Start 08/08/16 at 11:45; Stop 08/08/16 at 11:46; Status DC Nystatin (Nystop) 1 james BID TP Last administered on 09/03/16 07:42; Start at 21:00 Linezolid 300 ml @ 300 mls/hr Q12HR IV Last administered on 08/14/16 20:51; Start 08/09/16 at 09:00; Stop 08/15/16 at 07:21; Status DC Sodium Chloride 1,000 ml @ 20 mls/hr Q24H IV Last administered on 08/26/16 06: 41; Start 08/09/16 at 09:45; Stop 08/27/16 at 13:51; Status DC Sodium Bicarbonate 150 meq/Dextrose 1,150 ml @ 100 mls/hr 1X ONCE IV Last administered on 08/09/16 12:25; Start 08/09/16 at 11:30; Stop 08/09/16 at 22:59 ; Status DC Piperacillin Sod/ Tazobactam Sod (Zosyn Per Pharmacy) 1 each PRN DAILY PRN MC SEE COMMENTS; Start 08/09/16 at 12:00; Stop 08/14/16 at 07:40; Status DC Piperacillin Sod/ Tazobactam Sod 4.5 gm/Sodium Chloride 100 ml @ 200 mls/hr Q6HRS IV Last administered on 08/14/16 05:58; Start 08/09/16 at 12:30; Stop at 07:33; Status DC Vecuronium [place] (Norcuron Bolus) 5 mg PRN Q4HRS PRN IV INCREASED RESPIRATORY ,NOT RELI Last administered on 08/11/16 02:56; Start 08/09/16 at 13:30; Stop at 17:31; Status DC Potassium Chloride 50 ml @ 100 mls/hr Q1H IV ; Start 08/10/16 at 09:30; Stop at 10:59; Status Cancel Potassium Chloride 100 ml @ 100 mls/hr Q1H IV Last administered on 08/10/16 16:28; Start 08/10/16 at 10:30; Stop 08/10/16 at 14:29; Status DC Potassium Chloride (KCl Oral Soln) 60 meq 1X ONCE PEG Last administered on 11:16; Start 08/10/16 at 11:00; Stop 08/10/16 at 11:01; Status DC Sodium Bicarbonate 150 meq/Dextrose 1,150 ml @ 100 mls/hr [id number] IV Last administered on 08/10/16 11:14; Start 08/10/16 at 11:00; Stop 08/10/16 at 22:29 ; Status DC Enoxaparin Sodium (Lovenox 40mg Syringe) 40 mg Q24H SQ ; Start 08/10/16 at 13:00 ; Stop 08/10/16 at 13:00; Status DC Micafungin Sodium 100 mg/Dextrose 100 ml @ 100 mls/hr Q24H IV Last administered on 08/13/16 16:26; Start 08/11/16 at 16:00; Stop 08/14/16 at 07:33 ; Status DC Furosemide (Lasix) 40 mg 1X ONCE IVP Last administered on 08/12/16t 08:38; Start 08/12/16 at 08:00; Stop 08/12/16 at 08:06; Status DC Morphine Sulfate 1 mg PRN Q10MIN PRN IV SEVERE PAIN; Start 08/13/16 at 07:00; Stop 08/14/16 at 06:59; Status DC Lactated Ringer's 1,000 ml @ 0 mls/hr Q0M IV ; Start 08/13/16 at 07:00; Stop at 18:59; Status DC Lidocaine HCl 2 ml PRN 1X PRN ID PRIOR TO IV START; Start 08/13/16 at 07:00; Stop 08/14/16 at 06:59; Status DC Hydromorphone HCl (Dilaudid) 0.5 mg PRN Q10MIN PRN IV SEV PAIN, Second choice; Start 08/13/16 at 07:00; Stop 08/14/16 at 06:59; Status DC Prochlorperazine Edisylate (Compazine) 5 mg PACU PRN PRN IV NAUSEA, MRX1; Start 08/13/16 at 07:00; Stop 08/14/16 at 06:59; Status DC Morphine Sulfate 1 mg PRN Q10MIN PRN IV SEVERE PAIN; Start 08/13/16 at 07:00; Stop 08/14/16 at 06:59; Status DC Lactated Ringer's 1,000 ml @ 0 mls/hr Q0M IV ; Start 08/13/16 at 07:00; Stop at 18:59; Status DC Lidocaine HCl 2 ml PRN 1X PRN ID PRIOR TO IV START; Start 08/13/16 at 07:00; Stop 08/14/16 at 06:59; Status DC Hydromorphone HCl (Dilaudid) 0.5 mg PRN Q10MIN PRN IV SEV PAIN, Second choice; Start 08/13/16 at 07:00; Stop 08/14/16 at 06:59; Status DC Prochlorperazine Edisylate (Compazine) 5 mg PACU PRN PRN IV NAUSEA, MRX1; Start 08/13/16 at 07:00; Stop 08/14/16 at 06:59; Status DC Potassium Chloride 50 ml @ 50 mls/hr Q1H IV Last administered on 08/13/16 07: 57; Start 08/13/16 at 07:00; Stop 08/13/16 at 08:59; Status DC Rocuronium [place] (Zemuron) 50 mg STK-MED ONCE .ROUTE ; Start 08/13/16 at 12:50 ; Stop 08/13/16 at 12:51; Status DC Propofol 20 ml @ As Directed STK-MED ONCE IV ; Start 08/13/16 at 12:53; Stop at 12:54; Status DC Sevoflurane (Ultane) 30 ml STK-MED ONCE IH ; Start 08/13/16 at 14:04; Stop 08/13 at 14:05; Status DC Albumin Human 250 ml @ 100 mls/hr 1X ONCE IV Last administered on 08/13/16 23:38; Start 08/13/16 at 18:00; Stop 08/13/16 at 20:29; Status DC Albumin Human 500 ml @ 100 mls/hr 1X ONCE IV Last administered on 08/13/16 18:15; Start 08/13/16 at 18:00; Stop 08/13/16 at 22:59; Status DC Potassium Chloride 50 ml @ 50 mls/hr Q1H IV Last administered on 08/14/16 10: 46; Start 08/14/16 at 08:00; Stop 08/14/16 at 09:59; Status DC Nafcillin Sodium 2 gm/Sodium Chloride 100 ml @ 200 mls/hr Q4HRS IV Last administered on 08/23/16 08:51; Start 08/14/16 at 08:00; Stop 08/23/16 at 10:44; Status DC Enoxaparin Sodium (Lovenox 40mg Syringe) 40 mg Q24H SQ Last administered on 08/25 12:44; Start 08/14/16 at 12:00; Stop 08/26/16 at 11:53; Status DC Potassium Chloride (KCl Oral Soln) 40 meq 1X ONCE PEG Last administered on 07:54; Start 08/16/16 at 07:00; Stop 08/16/16 at 07:01; Status DC Potassium Chloride (KCl Oral Soln) 40 meq 1X ONCE PEG Last administered on 14:01; Start 08/16/16 at 12:00; Stop 08/16/16 at 12:01; Status DC Magnesium Sulfate/ Dextrose 50 ml @ 25 mls/hr 1X ONCE IV Last administered on 08/16/16 17:14; Start 08/16/16 at 16:30; Stop 08/16/16 at 18:29; Status DC Potassium Chloride (Klor-Con) 40 meq 1X ONCE PO ; Start 08/17/16 at 13:30; Stop 08/17/16 at 13:31; Status Cancel Potassium Chloride (KCl Oral Soln) 40 meq 1X ONCE PO Last administered on 08/17 15:34; Start 08/17/16 at 13:30; Stop 08/17/16 at 14:27; Status DC Potassium Chloride 100 ml @ 100 mls/hr PRN Q1HR PRN IV HYPOKALEMIA PER ICU PROTOCOL; Start 08/17/16 at 13:30; Status Cancel Potassium Chloride 50 ml @ 25 mls/hr PRN Q2HR PRN IV HYPOKALEMIA PER ICU PROTOCOL Last administered on 08/21/16 13:29; Start 08/17/16 at 13:30; Stop 08/21 at 13:34; Status DC Potassium Chloride (Klor-Con) 40 meq PRN Q2HR PRN PO HYPOKALEMIA PER ICU PROTOCOL; Start 08/17/16 at 13:30 Potassium Chloride 100 ml @ 100 mls/hr PRN Q1HR PRN IV HYPOKALEMIA PER ICU PROTOCOL; Start 08/17/16 at 13:30 Potassium Chloride 50 ml @ 25 mls/hr PRN Q2HR PRN IV HYPOKALEMIA PER ICU PROTOCOL; Start 08/17/16 at 13:30 Potassium Chloride (Klor-Con) 40 meq PRN Q2HR PRN PO HYPOKALEMIA PER ICU PROTOCOL; Start 08/17/16 at 13:30 Potassium Chloride 100 ml @ 100 mls/hr PRN Q1HR PRN IV HYPOKALEMIA PER ICU PROTOCOL; Start 08/17/16 at 13:30; Status Cancel Potassium Chloride 50 ml @ 25 mls/hr PRN Q2HR PRN IV HYPOKALEMIA PER ICU PROTOCOL Last administered on 08/27/16 14:37; Start 08/17/16 at 14:00 Magnesium Sulfate/ Dextrose 100 ml @ 50 mls/hr PRN DAILY PRN IV HYPOMAGNESIA PER ICU PROTOCOL Last administered on 08/20/16 22:26; Start 08/18/16 at 09:00 Potassium Phos/ Sodium Phos (Phos-Nak) 1 pkt BID PO ; Start 08/17/16 at 21:00; Stop 08/18/16 at 09:01; Status DC Sodium Phosphate 40 mmol/Dextrose 263.3333 ml @ 62.5 mls/hr PRN 1X PRN IV HYPOPHOSP PER ICU PROTOCOL; Start 08/17/16 at 13:30; Status Cancel Potassium Chloride (KCl Oral Soln) 40 meq 1X ONCE PEG Last administered on 08/19 07:57; Start 08/19/16 at 07:45; Stop 08/19/16 at 07:46; Status DC Potassium Chloride (KCl Oral Soln) 40 meq 1X ONCE PEG Last administered on 08/19 11:36; Start 08/19/16 at 12:00; Stop 08/19/16 at 12:01; Status DC Alprazolam (Xanax) 0.5 mg 1X ONCE PO Last administered on 08/19/16 11:35; Start 08/19/16 at 11:15; Stop 08/19/16 at 11:16; Status DC Alprazolam (Xanax) 0.5 mg TID PEG Last administered on 08/23/16 20:34; Start at 15:00; Stop 08/24/16 at 08:11; Status DC Potassium Chloride 50 ml @ 50 mls/hr Q1H IV Last administered on 08/22/16 09:40 ; Start 08/22/16 at 08:30; Stop 08/22/16 at 10:29; Status DC Haloperidol Lactate (Haldol) 5 mg PRN Q6HRS PRN IVP AGITATION Last administered on 08/31/16 02:14; Start 08/22/16 at 09:15 Haloperidol Lactate (Haldol) 2 mg 1X ONCE IVP ; Start 08/22/16 at 09:15; Stop at 09:27; Status DC Magnesium Sulfate/ Dextrose 100 ml @ 50 mls/hr DAILY IV Last administered on 10:00; Start 08/23/16 at 09:00; Stop 08/26/16 at 08:59; Status DC Albumin Human 100 ml @ 100 mls/hr [id number] IV Last administered on 08/23/16 17:25 ; Start 08/23/16 at 09:00; Stop 08/23/16 at 16:59; Status DC Furosemide (Lasix) 40 mg [id number] IVP Last administered on 08/23/16 17:26; Start 08/23/16 at 09:00; Stop 08/23/16 at 16:01; Status DC Vitamin A/Vitamin D (Vitamin A & D Ointment) 1 james PRN Q1HR PRN TP SKIN PROTECTION Last administered on 08/31/16 17:52; Start 08/23/16 at 08:45 Cefepime HCl 1 gm/ Sodium Chloride 50 ml @ 100 mls/hr Q8HRS IV Last administered on 09/03/16 05:33; Start 08/23/16 at 14:00 Ondansetron HCl (Zofran) 4 mg PRN Q6HRS PRN IV NAUSEA/VOMITING Last administered on 08/23/16 19:27; Start 08/23/16 at 19:15 Alprazolam (Xanax) 0.25 mg TID PEG ; Start 08/24/16 at 09:00; Stop 08/24/16 at 09: 28; Status DC Diphenhydramine HCl (Benadryl) 25 mg HS PO ; Start 08/24/16 at 21:00; Stop at 21:00; Status DC Zolpidem Tartrate (Ambien) 5 mg PRN QHS PRN PO INSOMNIA Last administered on 20:46; Start 08/24/16 at 08:15 Alprazolam (Xanax) 0.5 mg TID PEG Last administered on 09/03/16 07:40; Start 08/24/16 at 09:00 Diphenhydramine HCl (Benadryl) 25 mg PRN QHS PRN PO sleep Last administered on 09/03/16 02:16; Start 08/24/16 at 21:00 Quetiapine Fumarate (SEROquel) 50 mg HS PO Last administered on 09/02/16 20:38 ; Start 08/24/16 at 21:00 Potassium Chloride 50 ml @ 50 mls/hr Q1H IV Last administered on 08/25/16 09:45 ; Start 08/25/16 at 08:00; Stop 08/25/16 at 09:59; Status DC Iohexol (Omnipaque 300 Mg/ml) 75 ml 1X ONCE IV Last administered on 08/25/16 15:45; Start 08/25/16 at 15:45; Stop 08/25/16 at 15:46; Status DC Iohexol (Omnipaque 240 Mg/ml) 50 ml 1X ONCE PO Last administered on 08/25/16 15:45; Start 08/25/16 at 15:45; Stop 08/25/16 at 15:46; Status DC Info (Do NOT chart on this entry -- for MONITORING) 1 each PRN DAILY PRN MC SEE COMMENTS; Start 08/25/16 at 16:00; Stop 08/27/16 at 15:59; Status DC Chlorhexidine Gluconate (Peridex) 15 ml BID SWSP Last administered on 07:40; Start 08/26/16 at 09:00 Potassium Chloride 50 ml @ 50 mls/hr Q1H IV ; Start 08/26/16 at 11:30; Stop at 11:30; Status DC Acetaminophen (Tylenol) 650 mg PRN Q6HRS PRN PEG MILD PAIN / TEMP Last administered on 09/03/16 07:40; Start 08/26/16 at 12:00 Lidocaine/Sodium Bicarbonate (Buffered Lidocaine 1%) 20 ml STK-MED ONCE IJ ; Start 08/26/16 at 14:50; Stop 08/26/16 at 14:51; Status DC Lidocaine/Sodium Bicarbonate (Buffered Lidocaine 1%) 20 ml 1X ONCE IJ Last administered on 08/26/16 15:42; Start 08/26/16 at 15:45; Stop 08/26/16 at 15:46; Status DC Lansoprazole (Prevacid) 30 mg BIDBFRMEAL FT Last administered on 09/03/16 07: 40; Start 08/27/16 at 17:30 Potassium Chloride 50 ml @ 50 mls/hr Q1H IV Last administered on 08/27/16 13:23 ; Start 08/27/16 at 13:00; Stop 08/27/16 at 14:59; Status DC Alteplase, Recombinant 5 mg/ Sterile Water 50 ml @ 0 mls/hr 1X ONCE INT CAT Last administered on 08/28/16 15:03; Start 08/28/16 at 10:45; Stop 08/28/16 at 10:46; Status DC Ferrous Sulfate 300 mg DAILY FT Last administered on 09/03/16 07:40; Start 03/07 at 09:00 Alteplase, Recombinant 5 mg/ Sterile Water 50 ml @ 0 mls/hr 1X ONCE INT CAT Last administered on 08/29/16 11:00; Start 08/29/16 at 11:00; Stop 08/29/16 at 11:01; Status DC Oxycodone/ Acetaminophen (Percocet 5/325) 1 tab PRN BID PRN PO PAIN Last administered on 09/02/16 10:36; Start 08/29/16 at 11:45; Stop 09/02/16 at 10:45 ; Status DC Metronidazole (Flagyl) 500 mg Q12HR PEG Last administered on 09/03/16 10:04; Start 08/30/16 at 09:00 Oxycodone HCl (Roxicodone) 10 mg Q4HRS PRN PO PAIN Last administered on 06:32; Start 08/30/16 at 15:15; Stop 09/02/16 at 10:45; Status DC Cholestyramine Resin (Questran Light) 4 gm QIDPMEDS PO Last administered on 22:29; Start 08/31/16 at 10:00 Diphenhydramine HCl (Benadryl) 25 mg PRN QHS PRN PO INSOMNIA; Start 08/31/16 at 10:30 Oxycodone HCl (Roxicodone) 5 mg Q4HRS PRN PO PAIN Last administered on 07:40; Start 09/02/16 at 10:45 Oxycodone HCl (Roxicodone) 10 mg Q4HRS PRN PO PAIN Last administered on 17:52; Start 09/02/16 at 11:00 Lactobacillus Acidophilus (Bacid, Jesi-Bid) 1 tab TIDWMEALS PO Last administered on 09/03/16t 10:04; Start 09/03/16 at 08:00 Cholestyramine Resin (Questran Light) 4 gm BID@1000,2100 PEG ; Start 09/03/16 at 10:00 Active Scripts Active Reported No Known Medications Prior To Admisstion (Info) Each 1 Each Vitals/I & O Vital Sign - Last 24 Hours 09/02/16 09/02/16 09/02/16 09/02/16 11:00 12:00 12:00 12:33 Temp 99.0 99.0 Pulse 102 96 Resp 21 22 B/P (MAP) 111/75 (87) 119/83 (95) Pulse Ox 100 100 100 O2 Delivery Trach Shield Trach Shield Trach Collar Tracheal Collar O2 Flow Rate 8.0 8.0 8.0 10.0 09/02/16 09/02/16 09/02/16 09/02/16 14:00 14:21 15:00 16:00 Temp 99.2 99.2 Pulse 97 95 98 Resp 24 18 21 20 B/P (MAP) 111/78 (89) 110/79 (89) Pulse Ox 100 100 97 99 O2 Delivery Trach Shield Trach Shield Trach Shield O2 Flow Rate 8.0 8.0 8.0 8.0 09/02/16 09/02/16 09/02/16 09/02/16 16:00 17:00 17:27 17:52 Pulse 96 Resp 20 18 B/P (MAP) 116/75 (89) Pulse Ox 98 100 100 O2 Delivery Trach Collar Trach Shield Tracheal Collar O2 Flow Rate 8.0 8.0 10.0 10.0 09/02/16 09/02/16 09/02/16 09/02/16 18:00 18:55 19:00 20:00 Pulse 104 103 Resp 19 21 19 B/P (MAP) 111/81 (91) 118/74 (89) Pulse Ox 100 100 100 O2 Delivery Trach Shield trach shield Trach Shield Trach Collar O2 Flow Rate 8.0 8.0 8.0 8.0 09/02/16 09/02/16 09/02/16 09/02/16 20:00 20:26 21:00 22:00 Temp 98.9 98.9 Pulse 104 111 105 Resp 24 24 20 B/P (MAP) 120/76 (91) 116/58 (77) 110/58 (75) Pulse Ox 98 98 99 99 O2 Delivery Trach Shield Tracheal Collar Trach Shield Trach Shield O2 Flow Rate 10.0 09/02/17 5/16/17 5/16/17 5/16/17 23:00 00:00 00:00 00:50 Temp 98.8 98.8 Pulse 106 105 Resp 24 20 B/P (MAP) 112/76 (88) 111/68 (82) Pulse Ox 99 99 99 O2 Delivery Trach Shield Trach Shield Trach Collar Tracheal Collar O2 Flow Rate 8.0 8.0 09/03/17 5/16/17 5/16/17 5/16/17 01:00 02:00 02:16 03:00 Pulse 104 104 104 Resp 20 20 20 20 B/P (MAP) 110/70 (83) 105/66 (79) 105/66 (79) Pulse Ox 98 99 99 99 O2 Delivery Trach Shield Trach Shield Tracheal Collar Trach Shield O2 Flow Rate 8.0 09/03/17 5//17 5//17 5//17 04:00 04:00 05:00 06:00 Temp 98.9 98.9 Pulse 104 118 100 Resp 20 20 20 B/P (MAP) 111/67 (82) 112/66 (81) 113/71 (85) Pulse Ox 99 99 99 O2 Delivery Trach Collar Trach Shield Trach Shield Trach Shield O2 Flow Rate 8.0 09/03/17 5/17 5/16/17 5/16/17 07:00 07:40 08:00 08:00 Temp 98.9 98.9 Pulse 106 105 Resp 20 16 18 B/P (MAP) 111/63 (79) 113/68 (83) Pulse Ox 99 99 100 O2 Delivery Trach Shield Ventilator Trach Collar Trach Shield O2 Flow Rate 8.0 8.0 8.0 8.0 09/03/17 5/16/17 5/16/17 08:40 09:00 10:00 Pulse 107 98 Resp 20 21 11 B/P (MAP) 104/70 (81) 116/74 (88) Pulse Ox 100 100 100 O2 Delivery Trach Shield Trach Shield O2 Flow Rate 8.0 8.0 8.0 Intake and Output 09/02/09/02/17 5//17 15:00 23:00 07:00 Intake Total 300 ml 814 ml 1221 ml Output Total 830 ml 750 ml 1375 ml Balance -530 ml 64 ml -154 ml Nutrition Consultation Dietary Evaluation: Recommendations by RD: PPN/TPN Comments: Pt is s/p PEG placement 08/14 -TF's ordered per MD: Nutrihep, goal 50 ml/hr (sub with isosource HN until Nutrihep is available) -Flushes 150 cc q6h -4 Prostat/day (2 in the morning, 2 in the evening) Expected Outcomes/Goals: Tolerate the TF's at goal rate- met Meet > 75% estimated nutrition needs - met Malnutrition Findings: Reduced Secondary Teacher Strength: N/A Reduced Secondary Teacher Strength (Non-Sev: N/A Malnutrition related to morbid: No Weight Status: Overweight Fluid Accumulation (N/A): N/A JUANITO PRETTY MD September 03, 2016 10:57
[2016-09-03] MEDS: IBUPROFEN 600 MG TABLET. PO SCH ×2 (12:13→17:26)
--- NOTE | 2016-09-03 13:02 | RAD ---
Right hand, 2 views, 09/03/2016: History: Thumb pain No fracture or dislocation is identified. No destructive bony lesion is seen. IMPRESSION: No significant abnormality is detected.
[2016-09-03] MEDS: ZOLPIDEM 5 MG TABLET. PO PRN (21:06)
[2016-09-03] MEDS: SERTRALINE 25 MG TABLET. PO SCH (21:07)
[2016-09-04] VITALS (15 sets, daily range): BP systolic 106–128; BP diastolic 68–89
[2016-09-04] MEDS: IBUPROFEN 600 MG TABLET. PO SCH ×3 (02:54→21:26)
[2016-09-04 05:17] LABS: BASO # 0.1 x10^3/uL (0.0-0.2); BASO % 1 % (0-3); EOS % 3 % (0-3); HEMATOCRIT 29.3 % (36.0-47.0); HEMOGLOBIN 9.5 g/dL (12.0-15.5); LYMPH # 1.3 x10^3/uL (1.0-4.8); LYMPH % 15 % (24-48); MEAN CORPUSCULAR HEMOGLOBIN 29 pg (25-35); MEAN CORPUSCULAR HGB CONC 32 g/dL (31-37); MEAN CORPUSCULAR VOLUME 91 fL (79-100); MONO % 7 % (0-9); NEUT % 75 % (31-73); PLATELET COUNT 287 x10^3/uL (140-400); RED BLOOD COUNT 3.24 x10^6/uL (3.50-5.40); RED CELL DISTRIBUTION WIDTH 17.8 % (11.5-14.5); WHITE BLOOD COUNT 8.9 x10^3/uL (4.0-11.0)
[2016-09-04] MEDS: CEFEPIME HCL 1 GM in IV NORMAL SALINE 50ML 50 ML IV SCH (05:35)
[2016-09-04 05:39] LABS: ALBUMIN 1.5 g/dL (3.4-5.0); ALBUMIN/GLOBULIN RATIO 0.3 (1.0-1.7); CALCIUM 7.9 mg/dL (8.5-10.1); CREATININE 0.4 mg/dL (0.6-1.0); POTASSIUM 3.6 mmol/L (3.5-5.1); TOTAL BILIRUBIN 0.6 mg/dL (0.2-1.0); TOTAL PROTEIN 6.9 g/dL (6.4-8.2)
[2016-09-04] MEDS: BUDESONIDE 0.5 MG/2 ML NEBU. NEB SCH ×2 (07:21→20:07)
[2016-09-04] MEDS: IPRATRPIUM/ALBUTEROL 0.5/2.5MG 3 ML NEBU. NEB SCH ×4 (07:22→20:07)
--- NOTE | 2016-09-04 07:57 | PDOC ---
Infectious Disease Note Subjective Subjective Comfortable, denies pain + cough Hoping to pass swallow today ROS ROS GEN: Denies fevers, chills, sweats HEENT: Denies blurred vision, sore throat CV: Denies chest pain RESP: Denies shortness of air, cough GI: Denies n/v/d NEURO: Denies confusion, dizziness MSK: Denies weakness, joint pain/swelling Vital Sign Vital Signs Vital Signs Date Time Temp Pulse Resp B/P (MAP) Pulse Ox O2 Delivery O2 Flow Rate FiO2 09/04/16 07:24 96 09/04/16 07:23 Room Air 8.0 09/04/16 06:00 96 16 111/72 (85) 09/04/16 04:00 98.9 98.9 Physical Exam PHYSICAL EXAM GENERAL: Propped up in bed, alert, relaxed appearance, watching TV HEENT: PERRL, OC/OP pink, poor dentition NECK: Trach shield, brown-colored secretions, speaking valve LUNGS: + rhonchi, nonlabored. No chest tubes HEART: S1S2 ABD: Mildly distended, soft, NT. g-tube intact : [place] EXT: Generalized edema - better MACHINE TESTER: Alert, responds appropriately SKIN: No rash LUE-PICC. clean Labs Lab Laboratory Tests Test 09/04/16 05:00 White Blood Count 8.9 x10^3/uL (4.0-11.0) Red Blood Count 3.24 x10^6/uL (3.50-5.40) Hemoglobin 9.5 g/dL (12.0-15.5) Hematocrit 29.3 % (36.0-47.0) Mean Corpuscular Volume 91 fL (79-100) Mean Corpuscular Hemoglobin 29 pg (25-35) Mean Corpuscular Hemoglobin Concent 32 g/dL (31-37) Red Cell Distribution Width 17.8 % (11.5-14.5) Platelet Count 287 x10^3/uL (140-400) Neutrophils (%) (Auto) 75 % (31-73) Lymphocytes (%) (Auto) 15 % (24-48) Monocytes (%) (Auto) 7 % (0-9) Eosinophils (%) (Auto) 3 % (0-3) Basophils (%) (Auto) 1 % (0-3) Neutrophils # (Auto) 6.6 x10^3uL (1.8-7.7) Lymphocytes # (Auto) 1.3 x10^3/uL (1.0-4.8) Monocytes # (Auto) 0.6 x10^3/uL (0.0-1.1) Eosinophils # (Auto) 0.2 x10^3/uL (0.0-0.7) Basophils # (Auto) 0.1 x10^3/uL (0.0-0.2) Sodium Level 136 mmol/L (136-145) Potassium Level 3.6 mmol/L (3.5-5.1) Chloride Level 101 mmol/L (98-107) Carbon Dioxide Level 29 mmol/L (21-32) Anion Gap 6 (6-14) Blood Urea Nitrogen 24 mg/dL (7-20) Creatinine 0.4 mg/dL (0.6-1.0) Estimated GFR (Cockcroft-Gault) 175.0 BUN/Creatinine Ratio 60 (6-20) Glucose Level 106 mg/dL (70-99) Calcium Level 7.9 mg/dL (8.5-10.1) Total Bilirubin 0.6 mg/dL (0.2-1.0) Aspartate Amino Transf (AST/SGOT) 16 U/L (15-37) Alanine Aminotransferase (ALT/SGPT) 13 U/L (14-59) Alkaline Phosphatase 184 U/L (46-116) Total Protein 6.9 g/dL (6.4-8.2) Albumin 1.5 g/dL (3.4-5.0) Albumin/Globulin Ratio 0.3 (1.0-1.7) Objective Assessment Loculated pleural effusions- S/p Bilat Chest tubes 08/26. tubes now removed Ecoli in sputum (08/22) Leukocytosis - better Acute anemia s/p PRBCs, 08/16, 08/20, 08/27 S/p Trach/PEG 08/13 MSSA sepsis 08/01 ([facility]) -Repeat BC positive, 08/05 & 08/07. Neg 08/09 Right-sided bacterial endocarditis. -TTE. 3.0 x 2.0cm mobile mass TV Multiple pulmonary nodules/septic emboli Acute Resp failure - Intubated ? developing ARDS. S/p Bronch 4/20. MSSA. Trach IV drug use. Hep C Ileus Renal insufficiency. Severe thrombocytopenia. improved Hepatosplenomegaly on CT Plan Plan of Care Cont Cholestyramine and probiotics Cont Flagyl (08/30) for now to r/o anaerobes in loculation for now Nafcillin changed to cefepime to cover for Ecoli in sputum change to Cefazolin Patient will need a total of six weeks of IV abx (09/19/2016 end date) to treat endocarditis/bacteremia Monitor WBC, temp Supportive care KAYLYNN SHAY MD September 04, 2016 07:57
[2016-09-04] MEDS: LACTOBACILLUS ACIDOPH & BULGAR 1 TABLET. PO SCH ×3 (08:04→16:31)
[2016-09-04] MEDS: ALPRAZolam 0.5 MG TABLET PEG SCH ×4 (08:04→21:26)
[2016-09-04] MEDS: metroNIDAZOLE 500 MG TABLET PEG SCH ×2 (08:05→21:26)
[2016-09-04] MEDS: oxyCODONE IR 5 MG TABLET PO PRN ×3 (08:05→21:26)
[2016-09-04] MEDS: NYSTATIN TOPICAL POWDER 15GM BOTTLE. TP SCH ×2 (08:06→22:24)
[2016-09-04] MEDS: CHOLESTYRAMINE/ASPARTAME 4 GM PACKET PO SCH ×4 (08:06→22:00)
[2016-09-04] MEDS: FERROUS SULFATE ORAL 300 MG/5 ML SOLUTION. FT SCH (08:06)
[2016-09-04] MEDS: CHLORHEXIDINE 0.12% 15 ML MOUTHWASH. SWSP SCH (08:17)
[2016-09-04] MEDS: LANSOPRAZOLE 30 MG TAB.RAP.DR FT SCH ×2 (08:28→16:30)
[2016-09-04] MEDS ORDERED: POTASSIUM CHLORIDE 20 MEQ/15 ML ORAL LIQUID. PO PRN ×2 (08:45)
--- NOTE | 2016-09-04 08:48 | PDOC ---
PROGRESS NOTES Chief Complaint Chief Complaint Sepsis Acute hypoxic respir failure ASSESSMENT AND PLAN: 1. Sepsis: resolved 2. 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 MSSA. on cefepime (to cover E.coli as well). Abx rx until 09/19 3. PNA: septic emboli w/cavitary lesions. sputum with heavy growth E.coli. 4. 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 rpt CT chest on 08/31 with improvement. Flagyl added as per Dr Will 5. Acute respir failure: trached, vent weaned to trach shield. rpt swallow study today: no dysphagia. start PO feeds 6. Diarrhea: C.diff neg. prob due to TF - changed. on questran, probiotics 7. Anemia: severe, recurrent: multifactorial, incl severe inflammation, HCV toxicity. inflammation confirmed by iron studies. b12/folate WNL. on daily low dose Fe 8. Thrombocytopenia: 2/2 infection, now resolved. monitor 9. [place]: resolved 10. Hep C: new dx during current admit. F/U on O/P basis for rx 11. Polysubstance abuse: wean narcotics: oxy5 q4 -> q5 PRN. add adjunct NSAIDs, heat. 12. Depression: increase xanax to qid PRN. start Zoloft 13. Malnutrition: severe, POA, weight loss prior to admit, albumin critically low. suspect large component of inflammation as well. wean peg feeds, until full PO established History of Present Illness History of Present Illness abd discomfort, no pain. in good spirits Vitals Vitals Vital Signs Date Time Temp Pulse Resp B/P (MAP) Pulse Ox O2 Delivery O2 Flow Rate FiO2 09/04/16 08:05 18 96 8.0 09/04/16 07:23 Room Air 09/04/16 06:00 96 111/72 (85) 09/04/16 04:00 98.9 98.9 Physical Exam General: Alert, Cooperative, No acute distress Heart: Normal S1, Normal S2, No murmurs Lungs: Other (decrease bs) Abdomen: Normal bowel sounds, Other (Hepatosplenomegaly present) Extremities: No cyanosis, Other (1+ edema) Skin: No breakdown, No significant lesion Labs LABS Laboratory Tests Test 5/17/17 05:00 White Blood Count 8.9 x10^3/uL (4.0-11.0) Red Blood Count 3.24 x10^6/uL (3.50-5.40) Hemoglobin 9.5 g/dL (12.0-15.5) Hematocrit 29.3 % (36.0-47.0) Mean Corpuscular Volume 91 fL (79-100) Mean Corpuscular Hemoglobin 29 pg (25-35) Mean Corpuscular Hemoglobin Concent 32 g/dL (31-37) Red Cell Distribution Width 17.8 % (11.5-14.5) Platelet Count 287 x10^3/uL (140-400) Neutrophils (%) (Auto) 75 % (31-73) Lymphocytes (%) (Auto) 15 % (24-48) Monocytes (%) (Auto) 7 % (0-9) Eosinophils (%) (Auto) 3 % (0-3) Basophils (%) (Auto) 1 % (0-3) Neutrophils # (Auto) 6.6 x10^3uL (1.8-7.7) Lymphocytes # (Auto) 1.3 x10^3/uL (1.0-4.8) Monocytes # (Auto) 0.6 x10^3/uL (0.0-1.1) Eosinophils # (Auto) 0.2 x10^3/uL (0.0-0.7) Basophils # (Auto) 0.1 x10^3/uL (0.0-0.2) Sodium Level 136 mmol/L (136-145) Potassium Level 3.6 mmol/L (3.5-5.1) Chloride Level 101 mmol/L (98-107) Carbon Dioxide Level 29 mmol/L (21-32) Anion Gap 6 (6-14) Blood Urea Nitrogen 24 mg/dL (7-20) Creatinine 0.4 mg/dL (0.6-1.0) Estimated GFR (Cockcroft-Gault) 175.0 BUN/Creatinine Ratio 60 (6-20) Glucose Level 106 mg/dL (70-99) Calcium Level 7.9 mg/dL (8.5-10.1) Total Bilirubin 0.6 mg/dL (0.2-1.0) Aspartate Amino Transf (AST/SGOT) 16 U/L (15-37) Alanine Aminotransferase (ALT/SGPT) 13 U/L (14-59) Alkaline Phosphatase 184 U/L (46-116) Total Protein 6.9 g/dL (6.4-8.2) Albumin 1.5 g/dL (3.4-5.0) Albumin/Globulin Ratio 0.3 (1.0-1.7) Nutrition Consultation Dietary Evaluation: Recommendations by RD: PPN/TPN Comments: Pt is s/p PEG placement 08/14 -TF's ordered per MD: Nutrihep, goal 50 ml/hr (sub with isosource HN until Nutrihep is available) -Flushes 150 cc q6h -4 Prostat/day (2 in the morning, 2 in the evening) Expected Outcomes/Goals: Tolerate the TF's at goal rate- met Meet > 75% estimated nutrition needs - met Malnutrition Findings: Reduced Clinic Assistant Strength: N/A Reduced Clinic Assistant Strength (Non-Sev: N/A Malnutrition related to morbid: No Weight Status: Overweight Fluid Accumulation (N/A): N/A JUANITO PRETTY MD September 04, 2016 08:48
[2016-09-04] MEDS: QUEtiapine 25 MG TABLET. PO SCH ×2 (09:00→16:31)
--- NOTE | 2016-09-04 09:15 | PDOC ---
G I PROGRESS NOTE Subjective Off ventilator. Trach capped. No GI complaints. Wonders when trach and PEG can come out. Objective Apparently passed bedside swallow eval; to have formal video swallow. Physical Exam Abdomen soft, not tender nor distended. Review of Relevant I have reviewed the following items shanta (where applicable) has been applied. Labs Laboratory Tests Test 09/03/16 05:30 09/04/16 05:00 White Blood Count 10.8 x10^3/uL (4.0-11.0) 8.9 x10^3/uL (4.0-11.0) Red Blood Count 3.06 x10^6/uL (3.50-5.40) 3.24 x10^6/uL (3.50-5.40) Hemoglobin 9.1 g/dL (12.0-15.5) 9.5 g/dL (12.0-15.5) Hematocrit 26.9 % (36.0-47.0) 29.3 % (36.0-47.0) Mean Corpuscular Volume 88 fL (79-100) 91 fL (79-100) Mean Corpuscular Hemoglobin 30 pg (25-35) 29 pg (25-35) Mean Corpuscular Hemoglobin Concent 34 g/dL (31-37) 32 g/dL (31-37) Red Cell Distribution Width 17.4 % (11.5-14.5) 17.8 % (11.5-14.5) Platelet Count 294 x10^3/uL (140-400) 287 x10^3/uL (140-400) Neutrophils (%) (Auto) 76 % (31-73) 75 % (31-73) Lymphocytes (%) (Auto) 14 % (24-48) 15 % (24-48) Monocytes (%) (Auto) 7 % (0-9) 7 % (0-9) Eosinophils (%) (Auto) 3 % (0-3) 3 % (0-3) Basophils (%) (Auto) 0 % (0-3) 1 % (0-3) Neutrophils # (Auto) 8.2 x10^3uL (1.8-7.7) 6.6 x10^3uL (1.8-7.7) Lymphocytes # (Auto) 1.5 x10^3/uL (1.0-4.8) 1.3 x10^3/uL (1.0-4.8) Monocytes # (Auto) 0.8 x10^3/uL (0.0-1.1) 0.6 x10^3/uL (0.0-1.1) Eosinophils # (Auto) 0.3 x10^3/uL (0.0-0.7) 0.2 x10^3/uL (0.0-0.7) Basophils # (Auto) 0.0 x10^3/uL (0.0-0.2) 0.1 x10^3/uL (0.0-0.2) Sodium Level 136 mmol/L (136-145) Potassium Level 3.6 mmol/L (3.5-5.1) Chloride Level 101 mmol/L (98-107) Carbon Dioxide Level 29 mmol/L (21-32) Anion Gap 6 (6-14) Blood Urea Nitrogen 24 mg/dL (7-20) Creatinine 0.4 mg/dL (0.6-1.0) Estimated GFR (Cockcroft-Gault) 175.0 BUN/Creatinine Ratio 60 (6-20) Glucose Level 106 mg/dL (70-99) Calcium Level 7.9 mg/dL (8.5-10.1) Total Bilirubin 0.6 mg/dL (0.2-1.0) Aspartate Amino Transf (AST/SGOT) 16 U/L (15-37) Alanine Aminotransferase (ALT/SGPT) 13 U/L (14-59) Alkaline Phosphatase 184 U/L (46-116) Total Protein 6.9 g/dL (6.4-8.2) Albumin 1.5 g/dL (3.4-5.0) Albumin/Globulin Ratio 0.3 (1.0-1.7) Laboratory Tests Test 09/04/16 05:00 White Blood Count 8.9 x10^3/uL (4.0-11.0) Red Blood Count 3.24 x10^6/uL (3.50-5.40) Hemoglobin 9.5 g/dL (12.0-15.5) Hematocrit 29.3 % (36.0-47.0) Mean Corpuscular Volume 91 fL (79-100) Mean Corpuscular Hemoglobin 29 pg (25-35) Mean Corpuscular Hemoglobin Concent 32 g/dL (31-37) Red Cell Distribution Width 17.8 % (11.5-14.5) Platelet Count 287 x10^3/uL (140-400) Neutrophils (%) (Auto) 75 % (31-73) Lymphocytes (%) (Auto) 15 % (24-48) Monocytes (%) (Auto) 7 % (0-9) Eosinophils (%) (Auto) 3 % (0-3) Basophils (%) (Auto) 1 % (0-3) Neutrophils # (Auto) 6.6 x10^3uL (1.8-7.7) Lymphocytes # (Auto) 1.3 x10^3/uL (1.0-4.8) Monocytes # (Auto) 0.6 x10^3/uL (0.0-1.1) Eosinophils # (Auto) 0.2 x10^3/uL (0.0-0.7) Basophils # (Auto) 0.1 x10^3/uL (0.0-0.2) Sodium Level 136 mmol/L (136-145) Potassium Level 3.6 mmol/L (3.5-5.1) Chloride Level 101 mmol/L (98-107) Carbon Dioxide Level 29 mmol/L (21-32) Anion Gap 6 (6-14) Blood Urea Nitrogen 24 mg/dL (7-20) Creatinine 0.4 mg/dL (0.6-1.0) Estimated GFR (Cockcroft-Gault) 175.0 BUN/Creatinine Ratio 60 (6-20) Glucose Level 106 mg/dL (70-99) Calcium Level 7.9 mg/dL (8.5-10.1) Total Bilirubin 0.6 mg/dL (0.2-1.0) Aspartate Amino Transf (AST/SGOT) 16 U/L (15-37) Alanine Aminotransferase (ALT/SGPT) 13 U/L (14-59) Alkaline Phosphatase 184 U/L (46-116) Total Protein 6.9 g/dL (6.4-8.2) Albumin 1.5 g/dL (3.4-5.0) Albumin/Globulin Ratio 0.3 (1.0-1.7) Microbiology 08/12/16 Blood Fungal Culture - Preliminary, Resulted 08/12/16 Fungal Culture Result 1 - Preliminary, Resulted 08/26/16 Gram Stain - Final, Complete 08/22/16 Gram Stain - Final, Complete 08/31/16 Urine Culture - Final, Complete 08/31/16 Urine Culture Result 1 (JAMEY) - Final, Complete Medications Current Medications Amino Acids/ Glycerin/ Electrolytes 1,000 ml @ 100 mls/hr Q10H IV Last administered on 08/05/16 02:40; Start 08/02/16 at 03:00; Stop 08/05/16 at 08:50 ; Status DC Morphine Sulfate 2 mg PRN Q2HR PRN IV SEVERE PAIN Last administered on 11:59; Start 08/02/16 at 02:30; Stop 08/02/16 at 13:28; Status DC Daptomycin 220 mg/ Sodium Chloride 50 ml @ 100 mls/hr Q24H IV ; Start 08/02/16 at 09:15; Stop 08/02/16 at 15:58; Status DC Cefepime HCl 1 gm/ Sodium Chloride 50 ml @ 100 mls/hr Q12HR IV Last administered on 08/04/16 08:10; Start 08/02/16 at 10:00; Stop 08/04/16 at 10:33 ; Status DC Daptomycin 220 mg/ Sodium Chloride 50 ml @ 100 mls/hr ONCE ONCE IV ; Start at 10:00; Stop 08/02/16 at 10:29; Status Cancel Potassium Chloride (Klor-Con) 40 meq 1X ONCE PO Last administered on 10:17; Start 08/02/16 at 09:45; Stop 08/02/16 at 09:46; Status DC Daptomycin 220 mg/ Sodium Chloride 50 ml @ 100 mls/hr Q24H IV Last administered on 08/03/16 09:43; Start 08/02/16 at 10:15; Stop 08/03/16 at 10:29 ; Status DC Potassium Chloride (Klor-Con) 40 meq 1X ONCE PO Last administered on 12:57; Start 08/02/16 at 12:30; Stop 08/02/16 at 12:36; Status DC Morphine Sulfate 5 mg PRN Q2HRS PRN IV MODERATE TO SEVERE PAIN Last administered on 08/26/16 16:15; Start 08/02/16 at 13:30; Stop 08/26/16 at 17:31; Status DC Morphine Sulfate 8 mg PRN Q2HRS PRN IV MODERATE TO SEVERE PAIN Last administered on 08/04/16 14:58; Start 08/02/16 at 13:30; Stop 08/26/16 at 17:31 ; Status DC Acetaminophen (Tylenol) 650 mg PRN Q6HRS PRN PO TEMP GREATER THAN 100.4 Last administered on 08/26/16 00:24; Start 08/02/16 at 14:45; Stop 08/26/16 at 17:31; Status DC Lactated Ringer's 1,000 ml @ 50 mls/hr Q20H IV ; Start 08/05/16 at 07:00; Stop 08/05/16 at 18:13; Status DC Daptomycin 220 mg/ Sodium Chloride 50 ml @ 100 mls/hr Q24H IV ; Start 08/03/16 at 11:00; Status Cancel Potassium Chloride (Klor-Con) 40 meq 1X ONCE PO Last administered on 17:41; Start 08/02/16 at 17:15; Stop 08/02/16 at 17:18; Status DC Potassium Chloride (Klor-Con) 40 meq BIDWMEALS PO ; Start 08/03/16 at 08:00; Stop 08/03/16 at 11:08; Status DC Morphine Sulfate 5 mg 1X ONCE IV Last administered on 08/02/16 21:45; Start 08/02/16 at 21:30; Stop 08/02/16 at 21:33; Status DC Lorazepam (Ativan) 1 mg 1X ONCE IV Last administered on 08/02/16 21:30; Start 08/02/16 at 21:30; Stop 08/02/16 at 21:33; Status DC Acetaminophen (Acetaminophen Supp) 650 mg PRN Q6HRS PRN VA MILD PAIN / TEMP Last administered on 08/13/16 03:13; Start 08/03/16 at 01:15; Stop 08/26/16 at 17:31; Status DC Albuterol/ Ipratropium (Duoneb) 3 ml RTQID NEB Last administered on 09/04/16 07:22; Start 08/03/16 at 08:00 Budesonide (Pulmicort) 0.5 mg RTBID NEB Last administered on 09/04/16 07:21; Start 08/03/16 at 08:00 Pantoprazole Sodium (Protonix Vial) 40 mg 1X ONCE IVP Last administered on 10:06; Start 08/03/16 at 08:00; Stop 08/03/16 at 08:01; Status DC Daptomycin 320 mg/ Sodium Chloride 50 ml @ 100 mls/hr Q24H IV Last administered on 08/04/16 10:03; Start 08/04/16 at 10:00; Stop 08/04/16 at 10:33 ; Status DC Lorazepam (Ativan) 0.5 mg PRN Q6HRS PRN IV ANXIETY / AGITATION Last administered on 08/04/16 09:12; Start 08/03/16 at 11:15; Stop 08/07/16 at 11:02 ; Status DC Lorazepam (Ativan) 0.5 mg 1X ONCE IV Last administered on 08/04/16 10:00; Start 08/04/16 at 10:00; Stop 08/04/16 at 10:01; Status DC Morphine Sulfate 5 mg 1X ONCE IV Last administered on 08/04/16 10:00; Start 08/04/16 at 10:00; Stop 08/04/16 at 10:01; Status DC Lorazepam (Ativan) 0.5 mg PRN Q4HRS PRN IV ANXIETY / AGITATION Last administered on 08/25/16 02:29; Start 08/04/16 at 10:00; Stop 08/26/16 at 17:31; Status DC Nafcillin Sodium 2 gm/Sodium Chloride 100 ml @ 200 mls/hr Q4HRS IV Last administered on 08/09/16 10:10; Start 08/04/16 at 12:00; Stop 08/09/16 at 11:49 ; Status DC Propofol 100 ml @ As Directed STK-MED ONCE IV ; Start 08/04/16 at 16:10; Stop 08/04/16 at 16:11; Status DC Succinylcholine Chloride (Anectine) 200 mg STK-MED ONCE .ROUTE ; Start 08/04/16 at 16:14; Stop 08/04/16 at 16:15; Status DC Succinylcholine Chloride (Anectine) 200 mg 1X ONCE IV ; Start 08/04/16 at 16:45 ; Stop 08/04/16 at 16:46; Status DC Propofol 100 ml @ 0 mls/hr CONT PRN IV SEE I/O RECORD Last administered on 08/17 10:18; Start 08/04/16 at 16:45; Stop 08/26/16 at 17:31; Status DC Lorazepam (Ativan) 0.5 mg 1X ONCE IV Last administered on 08/04/16 16:45; Start 08/04/16 at 16:45; Stop 08/04/16 at 16:46; Status DC Morphine Sulfate 5 mg 1X ONCE IV Last administered on 08/04/16 16:44; Start 08/04/16 at 16:45; Stop 08/04/16 at 16:46; Status DC Fentanyl Citrate 30 ml @ 0 mls/hr CONT PRN IV PROTOCOL Last administered on 07:32; Start 08/04/16 at 16:45; Stop 09/02/16 at 10:45; Status DC Chlorhexidine Gluconate (Peridex) 15 ml BID MM Last administered on 08/17/16 10:18; Start 08/04/16 at 21:00; Stop 08/17/16 at 19:36; Status DC Famotidine (Pepcid) 20 mg BID IVP Last administered on 08/26/16 08:43; Start at 17:00; Stop 08/26/16 at 17:31; Status DC Sodium Chloride 1,000 ml @ 100 mls/hr Q10H IV Last administered on 08/07/16 04:35; Start 08/05/16 at 09:00; Stop 08/07/16 at 08:59; Status DC Succinylcholine Chloride (Anectine) 200 mg STK-MED ONCE .ROUTE ; Start 08/04/16 at 16:00; Stop 08/05/16 at 12:32; Status DC Lorazepam (Ativan) 2 mg 1X ONCE IV Last administered on 08/05/16 20:43; Start 08/05/16 at 21:00; Stop 08/05/16 at 21:01; Status DC Furosemide (Lasix) 40 mg 1X PRN PRN IV blood transfusion Last administered on 14:17; Start 08/06/16 at 08:00; Stop 08/07/16 at 07:59; Status DC Sodium Bicarbonate 50 meq 1X ONCE IV Last administered on 08/06/16 14:06; Start 08/06/16 at 12:00; Stop 08/06/16 at 12:01; Status DC Calcium Chloride 1,000 mg STK-MED ONCE IV ; Start 08/04/16 at 12:00; Stop at 15:13; Status DC Epinephrine HCl (Epinephrine Syringe) 2 mg STK-MED ONCE .ROUTE ; Start 08/04/16 at 12:00; Stop 08/06/16 at 15:13; Status DC Sodium Bicarbonate 100 meq STK-MED ONCE .ROUTE ; Start 08/04/16 at 12:00; Stop 08/06/16 at 15:13; Status DC Amino Acids/ Glycerin/ Electrolytes 1,000 ml @ 100 mls/hr Q10H IV Last administered on 08/08/16 12:33; Start 08/07/16 at 10:00; Stop 08/09/16 at 09:42 ; Status DC Enoxaparin Sodium (Lovenox 40mg Syringe) 40 mg Q24H SQ Last administered on 13:10; Start 08/07/16 at 13:00; Stop 08/10/16 at 10:43; Status DC Vecuronium [place] (Norcuron Bolus) 10 mg STK-MED ONCE IV ; Start 08/07/16 at 13 :56; Stop 08/07/16 at 13:57; Status DC Vecuronium [place] (Norcuron Bolus) 6 mg 1X ONCE IV Last administered on 14:06; Start 08/07/16 at 14:00; Stop 08/07/16 at 14:05; Status DC Sodium Bicarbonate 50 meq 1X ONCE IV Last administered on 08/08/16 11:46; Start 08/08/16 at 11:45; Stop 08/08/16 at 11:46; Status DC Nystatin (Nystop) 1 james BID TP Last administered on 09/04/16 08:06; Start at 21:00 Linezolid 300 ml @ 300 mls/hr Q12HR IV Last administered on 08/14/16 20:51; Start 08/09/16 at 09:00; Stop 08/15/16 at 07:21; Status DC Sodium Chloride 1,000 ml @ 20 mls/hr Q24H IV Last administered on 08/26/16 06: 41; Start 08/09/16 at 09:45; Stop 08/27/16 at 13:51; Status DC Sodium Bicarbonate 150 meq/Dextrose 1,150 ml @ 100 mls/hr 1X ONCE IV Last administered on 08/09/16 12:25; Start 08/09/16 at 11:30; Stop 08/09/16 at 22:59 ; Status DC Piperacillin Sod/ Tazobactam Sod (Zosyn Per Pharmacy) 1 each PRN DAILY PRN MC SEE COMMENTS; Start 08/09/16 at 12:00; Stop 08/14/16 at 07:40; Status DC Piperacillin Sod/ Tazobactam Sod 4.5 gm/Sodium Chloride 100 ml @ 200 mls/hr Q6HRS IV Last administered on 08/14/16 05:58; Start 08/09/16 at 12:30; Stop at 07:33; Status DC Vecuronium [place] (Norcuron Bolus) 5 mg PRN Q4HRS PRN IV INCREASED RESPIRATORY ,NOT RELI Last administered on 08/11/16 02:56; Start 08/09/16 at 13:30; Stop at 17:31; Status DC Potassium Chloride 50 ml @ 100 mls/hr Q1H IV ; Start 08/10/16 at 09:30; Stop at 10:59; Status Cancel Potassium Chloride 100 ml @ 100 mls/hr Q1H IV Last administered on 08/10/16 16:28; Start 08/10/16 at 10:30; Stop 08/10/16 at 14:29; Status DC Potassium Chloride (KCl Oral Soln) 60 meq 1X ONCE PEG Last administered on 11:16; Start 08/10/16 at 11:00; Stop 08/10/16 at 11:01; Status DC Sodium Bicarbonate 150 meq/Dextrose 1,150 ml @ 100 mls/hr [id number] IV Last administered on 08/10/16 11:14; Start 08/10/16 at 11:00; Stop 08/10/16 at 22:29 ; Status DC Enoxaparin Sodium (Lovenox 40mg Syringe) 40 mg Q24H SQ ; Start 08/10/16 at 13:00 ; Stop 08/10/16 at 13:00; Status DC Micafungin Sodium 100 mg/Dextrose 100 ml @ 100 mls/hr Q24H IV Last administered on 08/13/16 16:26; Start 08/11/16 at 16:00; Stop 08/14/16 at 07:33 ; Status DC Furosemide (Lasix) 40 mg 1X ONCE IVP Last administered on 08/12/16 08:38; Start 08/12/16 at 08:00; Stop 08/12/16 at 08:06; Status DC Morphine Sulfate 1 mg PRN Q10MIN PRN IV SEVERE PAIN; Start 08/13/16 at 07:00; Stop 08/14/16 at 06:59; Status DC Lactated Ringer's 1,000 ml @ 0 mls/hr Q0M IV ; Start 08/13/16 at 07:00; Stop at 18:59; Status DC Lidocaine HCl 2 ml PRN 1X PRN ID PRIOR TO IV START; Start 08/13/16 at 07:00; Stop 08/14/16 at 06:59; Status DC Hydromorphone HCl (Dilaudid) 0.5 mg PRN Q10MIN PRN IV SEV PAIN, Second choice; Start 08/13/16 at 07:00; Stop 08/14/16 at 06:59; Status DC Prochlorperazine Edisylate (Compazine) 5 mg PACU PRN PRN IV NAUSEA, MRX1; Start 08/13/16 at 07:00; Stop 08/14/16 at 06:59; Status DC Morphine Sulfate 1 mg PRN Q10MIN PRN IV SEVERE PAIN; Start 08/13/16 at 07:00; Stop 08/14/16 at 06:59; Status DC Lactated Ringer's 1,000 ml @ 0 mls/hr Q0M IV ; Start 08/13/16 at 07:00; Stop at 18:59; Status DC Lidocaine HCl 2 ml PRN 1X PRN ID PRIOR TO IV START; Start 08/13/16 at 07:00; Stop 08/14/16 at 06:59; Status DC Hydromorphone HCl (Dilaudid) 0.5 mg PRN Q10MIN PRN IV SEV PAIN, Second choice; Start 08/13/16 at 07:00; Stop 08/14/16 at 06:59; Status DC Prochlorperazine Edisylate (Compazine) 5 mg PACU PRN PRN IV NAUSEA, MRX1; Start 08/13/16 at 07:00; Stop 08/14/16 at 06:59; Status DC Potassium Chloride 50 ml @ 50 mls/hr Q1H IV Last administered on 08/13/16 07: 57; Start 08/13/16 at 07:00; Stop 08/13/16 at 08:59; Status DC Rocuronium [place] (Zemuron) 50 mg STK-MED ONCE .ROUTE ; Start 08/13/16 at 12:50 ; Stop 08/13/16 at 12:51; Status DC Propofol 20 ml @ As Directed STK-MED ONCE IV ; Start 08/13/16 at 12:53; Stop at 12:54; Status DC Sevoflurane (Ultane) 30 ml STK-MED ONCE IH ; Start 08/13/16 at 14:04; Stop 08/13 at 14:05; Status DC Albumin Human 250 ml @ 100 mls/hr 1X ONCE IV Last administered on 08/13/16 23:38; Start 08/13/16 at 18:00; Stop 08/13/16 at 20:29; Status DC Albumin Human 500 ml @ 100 mls/hr 1X ONCE IV Last administered on 08/13/16 18:15; Start 08/13/16 at 18:00; Stop 08/13/16 at 22:59; Status DC Potassium Chloride 50 ml @ 50 mls/hr Q1H IV Last administered on 08/14/16 10: 46; Start 08/14/16 at 08:00; Stop 08/14/16 at 09:59; Status DC Nafcillin Sodium 2 gm/Sodium Chloride 100 ml @ 200 mls/hr Q4HRS IV Last administered on 08/23/16 08:51; Start 08/14/16 at 08:00; Stop 08/23/16 at 10:44; Status DC Enoxaparin Sodium (Lovenox 40mg Syringe) 40 mg Q24H SQ Last administered on 08/25 12:44; Start 08/14/16 at 12:00; Stop 08/26/16 at 11:53; Status DC Potassium Chloride (KCl Oral Soln) 40 meq 1X ONCE PEG Last administered on 07:54; Start 08/16/16 at 07:00; Stop 08/16/16 at 07:01; Status DC Potassium Chloride (KCl Oral Soln) 40 meq 1X ONCE PEG Last administered on 14:01; Start 08/16/16 at 12:00; Stop 08/16/16 at 12:01; Status DC Magnesium Sulfate/ Dextrose 50 ml @ 25 mls/hr 1X ONCE IV Last administered on 08/16/16 17:14; Start 08/16/16 at 16:30; Stop 08/16/16 at 18:29; Status DC Potassium Chloride (Klor-Con) 40 meq 1X ONCE PO ; Start 08/17/16 at 13:30; Stop 08/17/16 at 13:31; Status Cancel Potassium Chloride (KCl Oral Soln) 40 meq 1X ONCE PO Last administered on 08/17 15:34; Start 08/17/16 at 13:30; Stop 08/17/16 at 14:27; Status DC Potassium Chloride 100 ml @ 100 mls/hr PRN Q1HR PRN IV HYPOKALEMIA PER ICU PROTOCOL; Start 08/17/16 at 13:30; Status Cancel Potassium Chloride 50 ml @ 25 mls/hr PRN Q2HR PRN IV HYPOKALEMIA PER ICU PROTOCOL Last administered on 08/21/16 13:29; Start 08/17/16 at 13:30; Stop 08/21 at 13:34; Status DC Potassium Chloride (Klor-Con) 40 meq PRN Q2HR PRN PO HYPOKALEMIA PER ICU PROTOCOL Last administered on 09/04/16 08:04; Start 08/17/16 at 13:30; Stop at 08:32; Status DC Potassium Chloride 100 ml @ 100 mls/hr PRN Q1HR PRN IV HYPOKALEMIA PER ICU PROTOCOL; Start 08/17/16 at 13:30 Potassium Chloride 50 ml @ 25 mls/hr PRN Q2HR PRN IV HYPOKALEMIA PER ICU PROTOCOL; Start 08/17/16 at 13:30 Potassium Chloride (Klor-Con) 40 meq PRN Q2HR PRN PO HYPOKALEMIA PER ICU PROTOCOL; Start 08/17/16 at 13:30; Stop 09/04/16 at 08:33; Status DC Potassium Chloride 100 ml @ 100 mls/hr PRN Q1HR PRN IV HYPOKALEMIA PER ICU PROTOCOL; Start 08/17/16 at 13:30; Status Cancel Potassium Chloride 50 ml @ 25 mls/hr PRN Q2HR PRN IV HYPOKALEMIA PER ICU PROTOCOL Last administered on 08/27/16 14:37; Start 08/17/16 at 14:00 Magnesium Sulfate/ Dextrose 100 ml @ 50 mls/hr PRN DAILY PRN IV HYPOMAGNESIA PER ICU PROTOCOL Last administered on 08/20/16 22:26; Start 08/18/16 at 09:00 Potassium Phos/ Sodium Phos (Phos-Nak) 1 pkt BID PO ; Start 08/17/16 at 21:00; Stop 08/18/16 at 09:01; Status DC Sodium Phosphate 40 mmol/Dextrose 263.3333 ml @ 62.5 mls/hr PRN 1X PRN IV HYPOPHOSP PER ICU PROTOCOL; Start 08/17/16 at 13:30; Status Cancel Potassium Chloride (KCl Oral Soln) 40 meq 1X ONCE PEG Last administered on 08/19 07:57; Start 08/19/16 at 07:45; Stop 08/19/16 at 07:46; Status DC Potassium Chloride (KCl Oral Soln) 40 meq 1X ONCE PEG Last administered on 08/19 11:36; Start 08/19/16 at 12:00; Stop 08/19/16 at 12:01; Status DC Alprazolam (Xanax) 0.5 mg 1X ONCE PO Last administered on 08/19/16 11:35; Start 08/19/16 at 11:15; Stop 08/19/16 at 11:16; Status DC Alprazolam (Xanax) 0.5 mg TID PEG Last administered on 08/23/16 20:34; Start at 15:00; Stop 08/24/16 at 08:11; Status DC Potassium Chloride 50 ml @ 50 mls/hr Q1H IV Last administered on 08/22/16 09:40 ; Start 08/22/16 at 08:30; Stop 08/22/16 at 10:29; Status DC Haloperidol Lactate (Haldol) 5 mg PRN Q6HRS PRN IVP AGITATION Last administered on 08/31/16 02:14; Start 08/22/16 at 09:15; Stop 09/03/16 at 10:57 ; Status DC Haloperidol Lactate (Haldol) 2 mg 1X ONCE IVP ; Start 08/22/16 at 09:15; Stop at 09:27; Status DC Magnesium Sulfate/ Dextrose 100 ml @ 50 mls/hr DAILY IV Last administered on 10:00; Start 08/23/16 at 09:00; Stop 08/26/16 at 08:59; Status DC Albumin Human 100 ml @ 100 mls/hr [id number] IV Last administered on 08/23/16 17:25 ; Start 08/23/16 at 09:00; Stop 08/23/16 at 16:59; Status DC Furosemide (Lasix) 40 mg [id number] IVP Last administered on 08/23/16 17:26; Start 08/23/16 at 09:00; Stop 08/23/16 at 16:01; Status DC Vitamin A/Vitamin D (Vitamin A & D Ointment) 1 james PRN Q1HR PRN TP SKIN PROTECTION Last administered on 08/31/16 17:52; Start 08/23/16 at 08:45 Cefepime HCl 1 gm/ Sodium Chloride 50 ml @ 100 mls/hr Q8HRS IV Last administered on 09/04/16 05:35; Start 08/23/16 at 14:00; Stop 09/04/16 at 07:57 ; Status DC Ondansetron HCl (Zofran) 4 mg PRN Q6HRS PRN IV NAUSEA/VOMITING Last administered on 08/23/16 19:27; Start 08/23/16 at 19:15 Alprazolam (Xanax) 0.25 mg TID PEG ; Start 08/24/16 at 09:00; Stop 08/24/16 at 09: 28; Status DC Diphenhydramine HCl (Benadryl) 25 mg HS PO ; Start 08/24/16 at 21:00; Stop at 21:00; Status DC Zolpidem Tartrate (Ambien) 5 mg PRN QHS PRN PO INSOMNIA Last administered on 21:06; Start 08/24/16 at 08:15 Alprazolam (Xanax) 0.5 mg TID PEG Last administered on 09/03/16 07:40; Start 08/24/16 at 09:00; Stop 09/03/16 at 10:57; Status DC Diphenhydramine HCl (Benadryl) 25 mg PRN QHS PRN PO sleep Last administered on 09/03/16 23:57; Start 08/24/16 at 21:00 Quetiapine Fumarate (SEROquel) 50 mg HS PO Last administered on 09/02/16 20:38 ; Start 08/24/16 at 21:00; Stop 09/03/16 at 20:55; Status DC Potassium Chloride 50 ml @ 50 mls/hr Q1H IV Last administered on 08/25/16 09:45 ; Start 08/25/16 at 08:00; Stop 08/25/16 at 09:59; Status DC Iohexol (Omnipaque 300 Mg/ml) 75 ml 1X ONCE IV Last administered on 08/25/16 15:45; Start 08/25/16 at 15:45; Stop 08/25/16 at 15:46; Status DC Iohexol (Omnipaque 240 Mg/ml) 50 ml 1X ONCE PO Last administered on 08/25/16 15:45; Start 08/25/16 at 15:45; Stop 08/25/16 at 15:46; Status DC Info (Do NOT chart on this entry -- for MONITORING) 1 each PRN DAILY PRN MC SEE COMMENTS; Start 08/25/16 at 16:00; Stop 08/27/16 at 15:59; Status DC Chlorhexidine Gluconate (Peridex) 15 ml BID SWSP Last administered on 08:17; Start 08/26/16 at 09:00 Potassium Chloride 50 ml @ 50 mls/hr Q1H IV ; Start 08/26/16 at 11:30; Stop at 11:30; Status DC Acetaminophen (Tylenol) 650 mg PRN Q6HRS PRN PEG MILD PAIN / TEMP Last administered on 09/03/16 07:40; Start 08/26/16 at 12:00 Lidocaine/Sodium Bicarbonate (Buffered Lidocaine 1%) 20 ml STK-MED ONCE IJ ; Start 08/26/16 at 14:50; Stop 08/26/16 at 14:51; Status DC Lidocaine/Sodium Bicarbonate (Buffered Lidocaine 1%) 20 ml 1X ONCE IJ Last administered on 08/26/16 15:42; Start 08/26/16 at 15:45; Stop 08/26/16 at 15:46; Status DC Lansoprazole (Prevacid) 30 mg BIDBFRMEAL FT Last administered on 09/04/16 08: 28; Start 08/27/16 at 17:30 Potassium Chloride 50 ml @ 50 mls/hr Q1H IV Last administered on 08/27/16 13:23 ; Start 08/27/16 at 13:00; Stop 08/27/16 at 14:59; Status DC Alteplase, Recombinant 5 mg/ Sterile Water 50 ml @ 0 mls/hr 1X ONCE INT CAT Last administered on 08/28/16 15:03; Start 08/28/16 at 10:45; Stop 08/28/16 at 10:46; Status DC Ferrous Sulfate 300 mg DAILY FT Last administered on 09/04/16 08:06; Start 03/07 at 09:00 Alteplase, Recombinant 5 mg/ Sterile Water 50 ml @ 0 mls/hr 1X ONCE INT CAT Last administered on 08/29/16 11:00; Start 08/29/16 at 11:00; Stop 08/29/16 at 11:01; Status DC Oxycodone/ Acetaminophen (Percocet 5/325) 1 tab PRN BID PRN PO PAIN Last administered on 09/02/16 10:36; Start 08/29/16 at 11:45; Stop 09/02/16 at 10:45 ; Status DC Metronidazole (Flagyl) 500 mg Q12HR PEG Last administered on 09/04/16 08:05; Start 08/30/16 at 09:00 Oxycodone HCl (Roxicodone) 10 mg Q4HRS PRN PO PAIN Last administered on 06:32; Start 08/30/16 at 15:15; Stop 09/02/16 at 10:45; Status DC Cholestyramine Resin (Questran Light) 4 gm QIDPMEDS PO Last administered on 08:06; Start 08/31/16 at 10:00 Diphenhydramine HCl (Benadryl) 25 mg PRN QHS PRN PO INSOMNIA; Start 08/31/16 at 10:30; Stop 09/03/16 at 10:57; Status DC Oxycodone HCl (Roxicodone) 5 mg Q4HRS PRN PO PAIN Last administered on 08:05; Start 09/02/16 at 10:45 Oxycodone HCl (Roxicodone) 10 mg Q4HRS PRN PO PAIN Last administered on 17:52; Start 09/02/16 at 11:00 Lactobacillus Acidophilus (Bacid, Jesi-Bid) 1 tab TIDWMEALS PO Last administered on 09/04/16 08:04; Start 09/03/16 at 08:00 Cholestyramine Resin (Questran Light) 4 gm BID@1000,2100 PEG ; Start 09/03/16 at 10:00; Stop 09/03/16 at 10:57; Status DC Alprazolam (Xanax) 0.5 mg QID PEG Last administered on 09/04/16 08:04; Start 09/03/16 at 13:00 Sertraline HCl (Zoloft) 25 mg QHS PO Last administered on 09/03/16 21:07; Start 09/03/16 at 21:00 Ibuprofen (Motrin) 600 mg Q8H PO Last administered on 09/04/16 02:54; Start at 11:15 Quetiapine Fumarate (SEROquel) 50 mg DAILY PO ; Start 09/04/16 at 09:00 Cefazolin Sodium 2 gm/Sodium Chloride 50 ml @ 100 mls/hr Q8HRS IV ; Start 09/04 at 08:00 Potassium Chloride (KCl Oral Soln) 40 meq PRN Q2HR PRN PO HYPOKALEMIA PER ICU PROTOCOL; Start 09/04/16 at 08:45 Potassium Chloride (KCl Oral Soln) 40 meq PRN Q2HR PRN PO HYPOKALEMIA PER ICU PROTOCOL; Start 09/04/16 at 08:45 Active Scripts Active Reported No Known Medications Prior To Admisstion (Info) Each 1 Each Vitals/I & O Vital Sign - Last 24 Hours 09/03/16 09/03/16 09/03/16 09/03/16 10:00 11:00 11:30 12:00 Temp 99.2 99.2 Pulse 98 99 97 Resp 11 20 18 B/P (MAP) 116/74 (88) 105/79 (88) 109/69 (82) Pulse Ox 100 95 98 100 O2 Delivery Trach Shield Trach Shield Tracheal Collar Trach Shield O2 Flow Rate 8.0 8.0 10.0 8.0 09/03/16 09/03/16 09/03/16 09/03/16 12:00 12:17 13:00 14:00 Pulse 101 98 Resp 18 19 19 B/P (MAP) 113/68 (83) 118/69 (85) Pulse Ox 95 99 97 O2 Delivery Trach Collar trach shield Trach Shield Trach Shield O2 Flow Rate 8.0 8.0 8.0 8.0 09/03/16 09/03/16 09/03/16 09/03/16 15:00 15:41 16:00 16:00 Temp 98.7 98.7 Pulse 96 97 Resp 20 16 B/P (MAP) 111/74 (86) 104/70 (81) Pulse Ox 96 96 97 O2 Delivery Trach Shield Tracheal Collar Trach Collar Trach Shield O2 Flow Rate 8.0 10.0 8.0 8.0 09/03/16 09/03/16 09/03/16 09/03/16 17:00 18:00 19:00 19:35 Pulse 87 85 90 Resp 19 21 16 B/P (MAP) 116/75 (89) 101/72 (82) 95/69 (78) Pulse Ox 98 99 93 95 O2 Delivery Trach Shield Trach Shield Trach Shield Tracheal Collar O2 Flow Rate 8.0 8.0 8.0 8.0 09/03/16 09/03/16 09/03/16 09/03/16 20:00 20:00 21:00 21:06 Temp 98.2 98.2 Pulse 95 89 Resp 18 18 18 B/P (MAP) 104/75 (85) 111/72 (85) Pulse Ox 93 93 93 O2 Delivery Trach Collar Trach Shield Trach Shield Tracheal Collar O2 Flow Rate 8.0 8.0 8.0 8.0 09/03/17 5//17 5//17 5//17 22:00 22:06 23:00 00:00 Temp 97.7 97.7 Pulse 88 91 92 Resp 16 16 16 16 B/P (MAP) 104/82 (89) 106/68 (81) 108/71 (83) Pulse Ox 91 93 94 93 O2 Delivery Trach Shield Tracheal Collar Trach Shield Trach Shield O2 Flow Rate 8.0 8.0 8.0 8.0 09/04/1609/04/ 5//17 5// 00:00 01:00 02:00 03:00 Pulse 92 96 91 Resp 16 16 16 B/P (MAP) 111/75 (87) 106/68 (81) 123/73 (90) Pulse Ox 91 95 98 O2 Delivery Trach Collar Trach Shield Trach Shield Trach Shield O2 Flow Rate 8.0 8.0 8.0 8.0 09/04/04 09//17 5//17 5//17 04:00 04:00 05:00 06:00 Temp 98.9 98.9 Pulse 91 92 96 Resp 16 16 16 B/P (MAP) 123/73 (90) 113/75 (88) 111/72 (85) Pulse Ox 98 98 98 O2 Delivery Trach Collar Trach Shield Trach Shield Trach Shield O2 Flow Rate 8.0 8.0 8.0 8.0 09/04/1609/04/17 09/04/ 07:23 07:24 08:05 Resp 18 Pulse Ox 95 96 96 O2 Delivery Room Air O2 Flow Rate 8.0 8.0 Intake and Output 09/03/09/03/17 /17 15:00 23:00 07:00 Intake Total 300 ml 350 ml 1041 ml Output Total 1520 ml 1075 ml 435 ml Balance -1220 ml -725 ml 606 ml Assessment Improving. Plan of Care: Continue current Tx, Mgmt Plan of Care Note Await video swallow. If passes, OK to feed with PEG in; it will have to be in 4 -6 weeks from placement before safe to remove. RICHAR LITTLE MD September 04, 2016 09:15
--- NOTE | 2016-09-04 11:09 | PDOC ---
PULMONARY PROGRESS NOTES Subjective off vent 72 hrs s/p bilateral chest tubes, with removal s/p intra pleural TPA left side 08/28, 08/29 Vitals Vital Signs Date Time Temp Pulse Resp B/P (MAP) Pulse Ox O2 Delivery O2 Flow Rate FiO2 09/04/16 08:05 18 96 8.0 09/04/16 07:23 Room Air 09/04/16 06:00 96 111/72 (85) 09/04/16 04:00 98.9 98.9 Comments ros as mentioned as above other sys otherwise neg ROS: No Chest Pain, No Abdominal Pain General: Alert, No acute distress HEENT: Other (nc at perrl. poor dentition, nose clear) Lungs: Other (decrease bs) Cardiovascular: S1, S2, Other Abdomen: Soft, Non-tender, Other (no mass) Neuro Exam: Alert, Oriented Extremities: Other (edema) Skin: Warm Labs Laboratory Tests Test 09/03/16 05:30 09/04/16 05:00 White Blood Count 10.8 x10^3/uL (4.0-11.0) 8.9 x10^3/uL (4.0-11.0) Red Blood Count 3.06 x10^6/uL (3.50-5.40) 3.24 x10^6/uL (3.50-5.40) Hemoglobin 9.1 g/dL (12.0-15.5) 9.5 g/dL (12.0-15.5) Hematocrit 26.9 % (36.0-47.0) 29.3 % (36.0-47.0) Mean Corpuscular Volume 88 fL (79-100) 91 fL (79-100) Mean Corpuscular Hemoglobin 30 pg (25-35) 29 pg (25-35) Mean Corpuscular Hemoglobin Concent 34 g/dL (31-37) 32 g/dL (31-37) Red Cell Distribution Width 17.4 % (11.5-14.5) 17.8 % (11.5-14.5) Platelet Count 294 x10^3/uL (140-400) 287 x10^3/uL (140-400) Neutrophils (%) (Auto) 76 % (31-73) 75 % (31-73) Lymphocytes (%) (Auto) 14 % (24-48) 15 % (24-48) Monocytes (%) (Auto) 7 % (0-9) 7 % (0-9) Eosinophils (%) (Auto) 3 % (0-3) 3 % (0-3) Basophils (%) (Auto) 0 % (0-3) 1 % (0-3) Neutrophils # (Auto) 8.2 x10^3uL (1.8-7.7) 6.6 x10^3uL (1.8-7.7) Lymphocytes # (Auto) 1.5 x10^3/uL (1.0-4.8) 1.3 x10^3/uL (1.0-4.8) Monocytes # (Auto) 0.8 x10^3/uL (0.0-1.1) 0.6 x10^3/uL (0.0-1.1) Eosinophils # (Auto) 0.3 x10^3/uL (0.0-0.7) 0.2 x10^3/uL (0.0-0.7) Basophils # (Auto) 0.0 x10^3/uL (0.0-0.2) 0.1 x10^3/uL (0.0-0.2) Sodium Level 136 mmol/L (136-145) Potassium Level 3.6 mmol/L (3.5-5.1) Chloride Level 101 mmol/L (98-107) Carbon Dioxide Level 29 mmol/L (21-32) Anion Gap 6 (6-14) Blood Urea Nitrogen 24 mg/dL (7-20) Creatinine 0.4 mg/dL (0.6-1.0) Estimated GFR (Cockcroft-Gault) 175.0 BUN/Creatinine Ratio 60 (6-20) Glucose Level 106 mg/dL (70-99) Calcium Level 7.9 mg/dL (8.5-10.1) Total Bilirubin 0.6 mg/dL (0.2-1.0) Aspartate Amino Transf (AST/SGOT) 16 U/L (15-37) Alanine Aminotransferase (ALT/SGPT) 13 U/L (14-59) Alkaline Phosphatase 184 U/L (46-116) Total Protein 6.9 g/dL (6.4-8.2) Albumin 1.5 g/dL (3.4-5.0) Albumin/Globulin Ratio 0.3 (1.0-1.7) Laboratory Tests Test 09/04/16 05:00 White Blood Count 8.9 x10^3/uL (4.0-11.0) Red Blood Count 3.24 x10^6/uL (3.50-5.40) Hemoglobin 9.5 g/dL (12.0-15.5) Hematocrit 29.3 % (36.0-47.0) Mean Corpuscular Volume 91 fL (79-100) Mean Corpuscular Hemoglobin 29 pg (25-35) Mean Corpuscular Hemoglobin Concent 32 g/dL (31-37) Red Cell Distribution Width 17.8 % (11.5-14.5) Platelet Count 287 x10^3/uL (140-400) Neutrophils (%) (Auto) 75 % (31-73) Lymphocytes (%) (Auto) 15 % (24-48) Monocytes (%) (Auto) 7 % (0-9) Eosinophils (%) (Auto) 3 % (0-3) Basophils (%) (Auto) 1 % (0-3) Neutrophils # (Auto) 6.6 x10^3uL (1.8-7.7) Lymphocytes # (Auto) 1.3 x10^3/uL (1.0-4.8) Monocytes # (Auto) 0.6 x10^3/uL (0.0-1.1) Eosinophils # (Auto) 0.2 x10^3/uL (0.0-0.7) Basophils # (Auto) 0.1 x10^3/uL (0.0-0.2) Sodium Level 136 mmol/L (136-145) Potassium Level 3.6 mmol/L (3.5-5.1) Chloride Level 101 mmol/L (98-107) Carbon Dioxide Level 29 mmol/L (21-32) Anion Gap 6 (6-14) Blood Urea Nitrogen 24 mg/dL (7-20) Creatinine 0.4 mg/dL (0.6-1.0) Estimated GFR (Cockcroft-Gault) 175.0 BUN/Creatinine Ratio 60 (6-20) Glucose Level 106 mg/dL (70-99) Calcium Level 7.9 mg/dL (8.5-10.1) Total Bilirubin 0.6 mg/dL (0.2-1.0) Aspartate Amino Transf (AST/SGOT) 16 U/L (15-37) Alanine Aminotransferase (ALT/SGPT) 13 U/L (14-59) Alkaline Phosphatase 184 U/L (46-116) Total Protein 6.9 g/dL (6.4-8.2) Albumin 1.5 g/dL (3.4-5.0) Albumin/Globulin Ratio 0.3 (1.0-1.7) Medications Active Scripts Medications Dose Route/Sig Days Date Category No Known Medications Prior To Admisstion (Info) Each 1 Each 08/06/16 Reported Comments cxr reviewed, 09/02 interval improvement in right-sided parenchymal opacities / volume loss Left base Impression . 1. Acute hypoxemic respiratory failure, multifactorial in etiology / increase secretions , repeat sputum with E-Coli 2. bilateral loculated effusions, suspected empyema, s/p bilateral chest tubes , VERY LOW GLUCOSE(9), LOW PH 3. Bilateral pulmonary nodules with cavitation, due to septic emboli. 4. Endocarditis. right sided, improving vegetations 5. ? chronic obstructive pulmonary disease. 6. Leukocytosis./fever, suspect due to empyema, bilateral 7. Anemia, ongoing 8. Thrombocytopenia. off lovenox 10. Intravenous drug abuse. 11. Tobacco habituation. 12. MSSA septicemia/pneumonia/ CHF 13. ct chest reviewed/ bilateral loculated effusion, suspect empyema, sig improvement post TPA on left Plan . T-shield 24 hrs s/p removal of bilateral chest tube s/p intra pleural TPA left side Overall left empyema has sig. improved ,only small LL pockets. Trach secretions for c/s, E-coli, on antibiotic per ID, antibiotics per ID, bronchodilators keep I<O off lovenox, continues to have low Hb and need for transfusion, on scds pepcid for prophylaxis discussed w RN/RT, prn PM valve speech f/u transfer to floor downsize trach #6 next week CARLEY WORKMAN MD September 04, 2016 11:09
[2016-09-04] MEDS ORDERED: BARIUM SULFATE 40% (APPLE) 148 GM PWD. PO ONE (11:15)
--- NOTE | 2016-09-04 11:59 | RAD ---
Video dysphasia study, 09/04/2016: History: Tracheostomy tube, dysphasia The swallowing mechanism was examined fluoroscopically in the lateral projection while the patient ingested a variety of food materials mixed with barium. 2 minutes of fluoroscopy time was utilized. One fluoroscopic video loop was recorded by a member of the speech Department. The patient demonstrated good oral control of the barium materials. When ingesting the thin liquids there was prompt initiation of pharyngeal peristalsis. The barium bolus passed normally through the cervical esophagus. There is no significant laryngeal penetration or aspiration when ingesting the thin liquids, thickened material or barium coated solids. There is very little vallecular or piriform sinus residue. IMPRESSION: No significant abnormality is detected.
[2016-09-04] MEDS: SERTRALINE 25 MG TABLET. PO SCH (21:27)
[2016-09-05] MEDS ORDERED: ACETAMINOPHEN 650 MG/20.3 ML SOLUTION. PO PRN (02:30)
[2016-09-05 02:50] VITALS: BP 127/83
[2016-09-05] MEDS: IBUPROFEN 600 MG TABLET. PO SCH ×3 (02:51→20:01)
[2016-09-05] MEDS: oxyCODONE IR 5 MG TABLET PO PRN ×5 (02:52→20:51)
[2016-09-05] MEDS: BUDESONIDE 0.5 MG/2 ML NEBU. NEB SCH ×2 (07:10→20:21)
[2016-09-05] MEDS: IPRATRPIUM/ALBUTEROL 0.5/2.5MG 3 ML NEBU. NEB SCH ×4 (07:10→20:21)
[2016-09-05 07:30] VITALS: BP 110/80
[2016-09-05] MEDS: FERROUS SULFATE ORAL 300 MG/5 ML SOLUTION. FT SCH (08:12)
[2016-09-05] MEDS: ALPRAZolam 0.5 MG TABLET PO SCH ×4 (08:12→20:51)
[2016-09-05] MEDS: metroNIDAZOLE 500 MG TABLET PO SCH ×2 (08:13→20:51)
[2016-09-05] MEDS: LANSOPRAZOLE 30 MG TAB.RAP.DR FT SCH ×2 (08:13→18:17)
[2016-09-05] MEDS: LACTOBACILLUS ACIDOPH & BULGAR 1 TABLET. PO SCH ×3 (08:14→18:17)
--- NOTE | 2016-09-05 08:14 | PDOC ---
Infectious Disease Note Subjective Subjective Comfortable, denies pain + cough Has been eating ROS ROS GEN: Denies fevers, chills, sweats HEENT: Denies blurred vision, sore throat CV: Denies chest pain RESP: Denies shortness of air, cough GI: Denies n/v/d NEURO: Denies confusion, dizziness MSK: Denies weakness, joint pain/swelling Vital Sign Vital Signs Vital Signs Date Time Temp Pulse Resp B/P (MAP) Pulse Ox O2 Delivery O2 Flow Rate FiO2 09/05/16 07:30 97.8 93 24 110/80 (90) 95 Room Air 97.8 09/04/16 22:52 33.0 Physical Exam PHYSICAL EXAM GENERAL: Propped up in bed, alert, relaxed appearance, watching TV HEENT: PERRL, OC/OP pink, poor dentition NECK: Trach, speaking valve LUNGS: + rhonchi, nonlabored. No chest tubes HEART: S1S2 ABD: Mildly distended but improving, soft, NT. g-tube intact : [place] EXT: Generalized edema - better REFERRAL MANAGER: Alert, responds appropriately SKIN: No rash LUE-PICC. clean Objective Assessment Loculated pleural effusions- S/p Bilat Chest tubes 08/26. tubes now removed Ecoli in sputum (08/22) Leukocytosis - better Acute anemia s/p PRBCs, 08/16, 08/20, 08/27 S/p Trach/PEG 08/13 MSSA sepsis 08/01 ([facility]) -Repeat BC positive, 08/05 & 08/07. Neg 08/09 Right-sided bacterial endocarditis. -TTE. 3.0 x 2.0cm mobile mass TV Multiple pulmonary nodules/septic emboli Acute Resp failure - Intubated ? developing ARDS. S/p Bronch 08/08. MSSA. Trach IV drug use. Hep C Ileus Renal insufficiency. Severe thrombocytopenia. improved Hepatosplenomegaly on CT Plan Plan of Care Cont Cefazolin Cont Cholestyramine wean soon as stools are forming and probiotics Cont Flagyl (08/30) for now to r/o anaerobes in loculation for now wean soon Patient will need a total of six weeks of IV abx (09/19/2016 end date) to treat endocarditis/bacteremia Monitor WBC, temp Supportive care KAYLYNN SHAY MD September 05, 2016 08:14
[2016-09-05] MEDS: NYSTATIN TOPICAL POWDER 15GM BOTTLE. TP SCH ×2 (09:00→20:54)
--- NOTE | 2016-09-05 11:08 | PDOC ---
PULMONARY PROGRESS NOTES Subjective tolerates PM valve well s/p bilateral chest tubes, with removal s/p intra pleural TPA left side 08/28, 08/29 Vitals Vital Signs Date Time Temp Pulse Resp B/P (MAP) Pulse Ox O2 Delivery O2 Flow Rate FiO2 09/05/16 08:13 95 33.0 09/05/16 07:40 Room Air 09/05/16 07:30 97.8 93 24 110/80 (90) 97.8 Comments ros as mentioned as above other sys otherwise neg ROS: No Chest Pain, No Abdominal Pain General: Alert, No acute distress HEENT: Other (nc at perrl. poor dentition, nose clear) Lungs: Other (decrease bs) Cardiovascular: S1, S2, Other Abdomen: Soft, Non-tender, Other (no mass) Neuro Exam: Alert, Oriented Extremities: Other (edema) Skin: Warm Labs Laboratory Tests Test 09/04/16 05:00 White Blood Count 8.9 x10^3/uL (4.0-11.0) Red Blood Count 3.24 x10^6/uL (3.50-5.40) Hemoglobin 9.5 g/dL (12.0-15.5) Hematocrit 29.3 % (36.0-47.0) Mean Corpuscular Volume 91 fL (79-100) Mean Corpuscular Hemoglobin 29 pg (25-35) Mean Corpuscular Hemoglobin Concent 32 g/dL (31-37) Red Cell Distribution Width 17.8 % (11.5-14.5) Platelet Count 287 x10^3/uL (140-400) Neutrophils (%) (Auto) 75 % (31-73) Lymphocytes (%) (Auto) 15 % (24-48) Monocytes (%) (Auto) 7 % (0-9) Eosinophils (%) (Auto) 3 % (0-3) Basophils (%) (Auto) 1 % (0-3) Neutrophils # (Auto) 6.6 x10^3uL (1.8-7.7) Lymphocytes # (Auto) 1.3 x10^3/uL (1.0-4.8) Monocytes # (Auto) 0.6 x10^3/uL (0.0-1.1) Eosinophils # (Auto) 0.2 x10^3/uL (0.0-0.7) Basophils # (Auto) 0.1 x10^3/uL (0.0-0.2) Sodium Level 136 mmol/L (136-145) Potassium Level 3.6 mmol/L (3.5-5.1) Chloride Level 101 mmol/L (98-107) Carbon Dioxide Level 29 mmol/L (21-32) Anion Gap 6 (6-14) Blood Urea Nitrogen 24 mg/dL (7-20) Creatinine 0.4 mg/dL (0.6-1.0) Estimated GFR (Cockcroft-Gault) 175.0 BUN/Creatinine Ratio 60 (6-20) Glucose Level 106 mg/dL (70-99) Calcium Level 7.9 mg/dL (8.5-10.1) Total Bilirubin 0.6 mg/dL (0.2-1.0) Aspartate Amino Transf (AST/SGOT) 16 U/L (15-37) Alanine Aminotransferase (ALT/SGPT) 13 U/L (14-59) Alkaline Phosphatase 184 U/L (46-116) Total Protein 6.9 g/dL (6.4-8.2) Albumin 1.5 g/dL (3.4-5.0) Albumin/Globulin Ratio 0.3 (1.0-1.7) Medications Active Scripts Medications Dose Route/Sig Days Date Category No Known Medications Prior To Admisstion (Info) Each 1 Each 08/06/16 Reported Comments cxr reviewed, 09/02 interval improvement in right-sided parenchymal opacities / volume loss Left base Impression . 1. Acute hypoxemic respiratory failure, multifactorial in etiology 2. bilateral loculated effusions, suspected empyema, s/p bilateral chest tubes , VERY LOW GLUCOSE(9), LOW PH , s/p TPA and removal of chest tubes 3. Bilateral pulmonary nodules with cavitation, due to septic emboli. 4. Endocarditis. right sided, improving vegetations 5. Anemia, 6. Intravenous drug abuse. 7. MSSA septicemia/pneumonia/ CHF Plan . T-shield 24 hrs/pm valve s/p removal of bilateral chest tube s/p intra pleural TPA left side Overall left empyema has sig. improved ,only small LL pockets. Trach secretions for c/s, E-coli, on antibiotic per ID, bronchodilators off lovenox, continues to have low Hb and need for transfusion, on scds oral nutrition downsize trach #6 next week CARLEY WORKMAN MD September 05, 2016 11:08
[2016-09-05] MEDS: CHOLESTYRAMINE/ASPARTAME 4 GM PACKET PO SCH ×4 (11:14→22:00)
[2016-09-05 11:25] VITALS: BP 117/82
--- NOTE | 2016-09-05 13:26 | PDOC ---
Subjective: Subjective: Tolerating regular diet. Says wants to be asleep for PEG removal. Objective: Vital Signs: Vital Signs Date Time Temp Pulse Resp B/P (MAP) Pulse Ox O2 Delivery O2 Flow Rate FiO2 09/05/16 13:02 97 Room Air 33.0 09/05/16 11:25 98.3 100 28 117/82 (94) 98.3 Imaging: Videoswallow 09/04/16 IMPRESSION: No significant abnormality is detected. BLANKET BINDER: regular diet w/thin liquids, sit up at 90* to eat and drink AND wear valve for all intake while trach remains in place PE: GEN: NAD, up to chair eating lunch NEURO/PSYCH: A & O 3 A/P: S/p PEG 08/13/16 -now tolerating PO nutrition -- Discussed PEG will need to stay in for 4-6 weeks (September 10 - September 24) before safe to remove. ORQUIDEA ELIZABETH September 05, 2016 13:26
--- NOTE | 2016-09-05 13:57 | PDOC ---
PROGRESS NOTES Chief Complaint Chief Complaint Sepsis Acute hypoxic respir failure ASSESSMENT AND PLAN: 1. Sepsis: resolved 2. 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 MSSA. on cefepime (to cover E.coli as well). Abx rx until 09/19 3. PNA: septic emboli w/cavitary lesions. sputum with heavy growth E.coli. 4. 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 rpt CT chest on 08/31 with improvement. Flagyl added as per Dr Will 5. Acute respir failure: trached, vent weaned to trach shield. rpt swallow study today: no dysphagia. start PO feeds 6. Diarrhea: C.diff neg. prob due to TF - changed. probiotics 7. Anemia: severe, recurrent: multifactorial, incl severe inflammation, HCV toxicity. inflammation confirmed by iron studies. b12/folate WNL. on daily low dose Fe 8. Thrombocytopenia: 2/2 infection, now resolved. monitor 9. ELMIRA: resolved 10. Hep C: new dx during current admit. F/U on O/P basis for rx 11. Polysubstance abuse: wean narcotics: oxy5 q4 -> q5 PRN. add adjunct NSAIDs, heat. 12. Depression: increase xanax to qid PRN. start Zoloft 13. Malnutrition: severe, POA, weight loss prior to admit, albumin critically low. suspect large component of inflammation as well. wean peg feeds, until full PO established History of Present Illness History of Present Illness abd discomfort, no pain. in good spirits Vitals Vitals Vital Signs Date Time Temp Pulse Resp B/P (MAP) Pulse Ox O2 Delivery O2 Flow Rate FiO2 09/05/16 13:02 97 Room Air 33.0 09/05/16 11:25 98.3 100 28 117/82 (94) 98.3 Physical Exam General: Alert, Cooperative, No acute distress Heart: Normal S1, Normal S2, No murmurs Lungs: Other (decrease bs) Abdomen: Normal bowel sounds, Other (Hepatosplenomegaly present) Extremities: No cyanosis, Other (1+ edema) Skin: No breakdown, No significant lesion Comment Review of Relevant I have reviewed the following items shanta (where applicable) has been applied. Labs Laboratory Tests Test 09/04/16 05:00 White Blood Count 8.9 x10^3/uL (4.0-11.0) Red Blood Count 3.24 x10^6/uL (3.50-5.40) Hemoglobin 9.5 g/dL (12.0-15.5) Hematocrit 29.3 % (36.0-47.0) Mean Corpuscular Volume 91 fL (79-100) Mean Corpuscular Hemoglobin 29 pg (25-35) Mean Corpuscular Hemoglobin Concent 32 g/dL (31-37) Red Cell Distribution Width 17.8 % (11.5-14.5) Platelet Count 287 x10^3/uL (140-400) Neutrophils (%) (Auto) 75 % (31-73) Lymphocytes (%) (Auto) 15 % (24-48) Monocytes (%) (Auto) 7 % (0-9) Eosinophils (%) (Auto) 3 % (0-3) Basophils (%) (Auto) 1 % (0-3) Neutrophils # (Auto) 6.6 x10^3uL (1.8-7.7) Lymphocytes # (Auto) 1.3 x10^3/uL (1.0-4.8) Monocytes # (Auto) 0.6 x10^3/uL (0.0-1.1) Eosinophils # (Auto) 0.2 x10^3/uL (0.0-0.7) Basophils # (Auto) 0.1 x10^3/uL (0.0-0.2) Sodium Level 136 mmol/L (136-145) Potassium Level 3.6 mmol/L (3.5-5.1) Chloride Level 101 mmol/L (98-107) Carbon Dioxide Level 29 mmol/L (21-32) Anion Gap 6 (6-14) Blood Urea Nitrogen 24 mg/dL (7-20) Creatinine 0.4 mg/dL (0.6-1.0) Estimated GFR (Cockcroft-Gault) 175.0 BUN/Creatinine Ratio 60 (6-20) Glucose Level 106 mg/dL (70-99) Calcium Level 7.9 mg/dL (8.5-10.1) Total Bilirubin 0.6 mg/dL (0.2-1.0) Aspartate Amino Transf (AST/SGOT) 16 U/L (15-37) Alanine Aminotransferase (ALT/SGPT) 13 U/L (14-59) Alkaline Phosphatase 184 U/L (46-116) Total Protein 6.9 g/dL (6.4-8.2) Albumin 1.5 g/dL (3.4-5.0) Albumin/Globulin Ratio 0.3 (1.0-1.7) Microbiology 08/12/16 Blood Fungal Culture - Preliminary, Resulted 08/12/16 Fungal Culture Result 1 - Preliminary, Resulted 08/26/16 Gram Stain - Final, Complete 08/22/16 Gram Stain - Final, Complete 08/31/16 Urine Culture - Final, Complete 08/31/16 Urine Culture Result 1 (JAMEY) - Final, Complete Medications Current Medications Amino Acids/ Glycerin/ Electrolytes 1,000 ml @ 100 mls/hr Q10H IV Last administered on 08/05/16 02:40; Start 08/02/16 at 03:00; Stop 08/05/16 at 08:50 ; Status DC Morphine Sulfate 2 mg PRN Q2HR PRN IV SEVERE PAIN Last administered on 11:59; Start 08/02/16 at 02:30; Stop 08/02/16 at 13:28; Status DC Daptomycin 220 mg/ Sodium Chloride 50 ml @ 100 mls/hr Q24H IV ; Start 08/02/16 at 09:15; Stop 08/02/16 at 15:58; Status DC Cefepime HCl 1 gm/ Sodium Chloride 50 ml @ 100 mls/hr Q12HR IV Last administered on 08/04/16 08:10; Start 08/02/16 at 10:00; Stop 08/04/16 at 10:33 ; Status DC Daptomycin 220 mg/ Sodium Chloride 50 ml @ 100 mls/hr ONCE ONCE IV ; Start at 10:00; Stop 08/02/16 at 10:29; Status Cancel Potassium Chloride (Klor-Con) 40 meq 1X ONCE PO Last administered on 10:17; Start 08/02/16 at 09:45; Stop 08/02/16 at 09:46; Status DC Daptomycin 220 mg/ Sodium Chloride 50 ml @ 100 mls/hr Q24H IV Last administered on 08/03/16 09:43; Start 08/02/16 at 10:15; Stop 08/03/16 at 10:29 ; Status DC Potassium Chloride (Klor-Con) 40 meq 1X ONCE PO Last administered on 12:57; Start 08/02/16 at 12:30; Stop 08/02/16 at 12:36; Status DC Morphine Sulfate 5 mg PRN Q2HRS PRN IV MODERATE TO SEVERE PAIN Last administered on 08/26/16 16:15; Start 08/02/16 at 13:30; Stop 08/26/16 at 17:31; Status DC Morphine Sulfate 8 mg PRN Q2HRS PRN IV MODERATE TO SEVERE PAIN Last administered on 08/04/16 14:58; Start 08/02/16 at 13:30; Stop 08/26/16 at 17:31 ; Status DC Acetaminophen (Tylenol) 650 mg PRN Q6HRS PRN PO TEMP GREATER THAN 100.4 Last administered on 08/26/16 00:24; Start 08/02/16 at 14:45; Stop 08/26/16 at 17:31; Status DC Lactated Ringer's 1,000 ml @ 50 mls/hr Q20H IV ; Start 08/05/16 at 07:00; Stop 08/05/16 at 18:13; Status DC Daptomycin 220 mg/ Sodium Chloride 50 ml @ 100 mls/hr Q24H IV ; Start 08/03/16 at 11:00; Status Cancel Potassium Chloride (Klor-Con) 40 meq 1X ONCE PO Last administered on 17:41; Start 08/02/16 at 17:15; Stop 08/02/16 at 17:18; Status DC Potassium Chloride (Klor-Con) 40 meq BIDWMEALS PO ; Start 08/03/16 at 08:00; Stop 08/03/16 at 11:08; Status DC Morphine Sulfate 5 mg 1X ONCE IV Last administered on 08/02/16 21:45; Start 08/02/16 at 21:30; Stop 08/02/16 at 21:33; Status DC Lorazepam (Ativan) 1 mg 1X ONCE IV Last administered on 08/02/16 21:30; Start 08/02/16 at 21:30; Stop 08/02/16 at 21:33; Status DC Acetaminophen (Acetaminophen Supp) 650 mg PRN Q6HRS PRN [place] MILD PAIN / TEMP Last administered on 08/13/16 03:13; Start 08/03/16 at 01:15; Stop 08/26/16 at 17:31; Status DC Albuterol/ Ipratropium (Duoneb) 3 ml RTQID NEB Last administered on 09/05/16 11:06; Start 08/03/16 at 08:00 Budesonide (Pulmicort) 0.5 mg RTBID NEB Last administered on 09/05/16 07:10; Start 08/03/16 at 08:00 Pantoprazole Sodium (Protonix Vial) 40 mg 1X ONCE IVP Last administered on 10:06; Start 08/03/16 at 08:00; Stop 08/03/16 at 08:01; Status DC Daptomycin 320 mg/ Sodium Chloride 50 ml @ 100 mls/hr Q24H IV Last administered on 08/04/16 10:03; Start 08/04/16 at 10:00; Stop 08/04/16 at 10:33 ; Status DC Lorazepam (Ativan) 0.5 mg PRN Q6HRS PRN IV ANXIETY / AGITATION Last administered on 08/04/16 09:12; Start 08/03/16 at 11:15; Stop 08/07/16 at 11:02 ; Status DC Lorazepam (Ativan) 0.5 mg 1X ONCE IV Last administered on 08/04/16 10:00; Start 08/04/16 at 10:00; Stop 08/04/16 at 10:01; Status DC Morphine Sulfate 5 mg 1X ONCE IV Last administered on 08/04/16 10:00; Start 08/04/16 at 10:00; Stop 08/04/16 at 10:01; Status DC Lorazepam (Ativan) 0.5 mg PRN Q4HRS PRN IV ANXIETY / AGITATION Last administered on 08/25/16 02:29; Start 08/04/16 at 10:00; Stop 08/26/16 at 17:31; Status DC Nafcillin Sodium 2 gm/Sodium Chloride 100 ml @ 200 mls/hr Q4HRS IV Last administered on 08/09/16 10:10; Start 08/04/16 at 12:00; Stop 08/09/16 at 11:49 ; Status DC Propofol 100 ml @ As Directed STK-MED ONCE IV ; Start 08/04/16 at 16:10; Stop 08/04/16 at 16:11; Status DC Succinylcholine Chloride (Anectine) 200 mg STK-MED ONCE .ROUTE ; Start 08/04/16 at 16:14; Stop 08/04/16 at 16:15; Status DC Succinylcholine Chloride (Anectine) 200 mg 1X ONCE IV ; Start 08/04/16 at 16:45 ; Stop 08/04/16 at 16:46; Status DC Propofol 100 ml @ 0 mls/hr CONT PRN IV SEE I/O RECORD Last administered on 08/17 10:18; Start 08/04/16 at 16:45; Stop 08/26/16 at 17:31; Status DC Lorazepam (Ativan) 0.5 mg 1X ONCE IV Last administered on 08/04/16 16:45; Start 08/04/16 at 16:45; Stop 08/04/16 at 16:46; Status DC Morphine Sulfate 5 mg 1X ONCE IV Last administered on 08/04/16 16:44; Start 08/04/16 at 16:45; Stop 08/04/16 at 16:46; Status DC Fentanyl Citrate 30 ml @ 0 mls/hr CONT PRN IV PROTOCOL Last administered on 07:32; Start 08/04/16 at 16:45; Stop 09/02/16 at 10:45; Status DC Chlorhexidine Gluconate (Peridex) 15 ml BID MM Last administered on 08/17/16 10:18; Start 08/04/16 at 21:00; Stop 08/17/16 at 19:36; Status DC Famotidine (Pepcid) 20 mg BID IVP Last administered on 08/26/16 08:43; Start at 17:00; Stop 08/26/16 at 17:31; Status DC Sodium Chloride 1,000 ml @ 100 mls/hr Q10H IV Last administered on 08/07/16 04:35; Start 08/05/16 at 09:00; Stop 08/07/16 at 08:59; Status DC Succinylcholine Chloride (Anectine) 200 mg STK-MED ONCE .ROUTE ; Start 08/04/16 at 16:00; Stop 08/05/16 at 12:32; Status DC Lorazepam (Ativan) 2 mg 1X ONCE IV Last administered on 08/05/16 20:43; Start 08/05/16 at 21:00; Stop 08/05/16 at 21:01; Status DC Furosemide (Lasix) 40 mg 1X PRN PRN IV blood transfusion Last administered on 14:17; Start 08/06/16 at 08:00; Stop 08/07/16 at 07:59; Status DC Sodium Bicarbonate 50 meq 1X ONCE IV Last administered on 08/06/16 14:06; Start 08/06/16 at 12:00; Stop 08/06/16 at 12:01; Status DC Calcium Chloride 1,000 mg STK-MED ONCE IV ; Start 08/04/16 at 12:00; Stop at 15:13; Status DC Epinephrine HCl (Epinephrine Syringe) 2 mg STK-MED ONCE .ROUTE ; Start 08/04/16 at 12:00; Stop 08/06/16 at 15:13; Status DC Sodium Bicarbonate 100 meq STK-MED ONCE .ROUTE ; Start 08/04/16 at 12:00; Stop 08/06/16 at 15:13; Status DC Amino Acids/ Glycerin/ Electrolytes 1,000 ml @ 100 mls/hr Q10H IV Last administered on 08/08/16 12:33; Start 08/07/16 at 10:00; Stop 08/09/16 at 09:42 ; Status DC Enoxaparin Sodium (Lovenox 40mg Syringe) 40 mg Q24H SQ Last administered on 13:10; Start 08/07/16 at 13:00; Stop 08/10/16 at 10:43; Status DC Vecuronium [place] (Norcuron Bolus) 10 mg STK-MED ONCE IV ; Start 08/07/16 at 13 :56; Stop 08/07/16 at 13:57; Status DC Vecuronium [place] (Norcuron Bolus) 6 mg 1X ONCE IV Last administered on 14:06; Start 08/07/16 at 14:00; Stop 08/07/16 at 14:05; Status DC Sodium Bicarbonate 50 meq 1X ONCE IV Last administered on 08/08/16 11:46; Start 08/08/16 at 11:45; Stop 08/08/16 at 11:46; Status DC Nystatin (Nystop) 1 james BID TP Last administered on 09/04/16 22:24; Start at 21:00 Linezolid 300 ml @ 300 mls/hr Q12HR IV Last administered on 08/14/16 20:51; Start 08/09/16 at 09:00; Stop 08/15/16 at 07:21; Status DC Sodium Chloride 1,000 ml @ 20 mls/hr Q24H IV Last administered on 08/26/16 06: 41; Start 08/09/16 at 09:45; Stop 08/27/16 at 13:51; Status DC Sodium Bicarbonate 150 meq/Dextrose 1,150 ml @ 100 mls/hr 1X ONCE IV Last administered on 08/09/16 12:25; Start 08/09/16 at 11:30; Stop 08/09/16 at 22:59 ; Status DC Piperacillin Sod/ Tazobactam Sod (Zosyn Per Pharmacy) 1 each PRN DAILY PRN MC SEE COMMENTS; Start 08/09/16 at 12:00; Stop 08/14/16 at 07:40; Status DC Piperacillin Sod/ Tazobactam Sod 4.5 gm/Sodium Chloride 100 ml @ 200 mls/hr Q6HRS IV Last administered on 08/14/16 05:58; Start 08/09/16 at 12:30; Stop at 07:33; Status DC Vecuronium [place] (Norcuron Bolus) 5 mg PRN Q4HRS PRN IV INCREASED RESPIRATORY ,NOT RELI Last administered on 08/11/16 02:56; Start 08/09/16 at 13:30; Stop at 17:31; Status DC Potassium Chloride 50 ml @ 100 mls/hr Q1H IV ; Start 08/10/16 at 09:30; Stop at 10:59; Status Cancel Potassium Chloride 100 ml @ 100 mls/hr Q1H IV Last administered on 08/10/16 16:28; Start 08/10/16 at 10:30; Stop 08/10/16 at 14:29; Status DC Potassium Chloride (KCl Oral Soln) 60 meq 1X ONCE PEG Last administered on 11:16; Start 08/10/16 at 11:00; Stop 08/10/16 at 11:01; Status DC Sodium Bicarbonate 150 meq/Dextrose 1,150 ml @ 100 mls/hr [id number] IV Last administered on 08/10/16 11:14; Start 08/10/16 at 11:00; Stop 08/10/16 at 22:29 ; Status DC Enoxaparin Sodium (Lovenox 40mg Syringe) 40 mg Q24H SQ ; Start 08/10/16 at 13:00 ; Stop 08/10/16 at 13:00; Status DC Micafungin Sodium 100 mg/Dextrose 100 ml @ 100 mls/hr Q24H IV Last administered on 08/13/16 16:26; Start 08/11/16 at 16:00; Stop 08/14/16 at 07:33 ; Status DC Furosemide (Lasix) 40 mg 1X ONCE IVP Last administered on 08/12/16 08:38; Start 08/12/16 at 08:00; Stop 08/12/16 at 08:06; Status DC Morphine Sulfate 1 mg PRN Q10MIN PRN IV SEVERE PAIN; Start 08/13/16 at 07:00; Stop 08/14/16 at 06:59; Status DC Lactated Ringer's 1,000 ml @ 0 mls/hr Q0M IV ; Start 08/13/16 at 07:00; Stop at 18:59; Status DC Lidocaine HCl 2 ml PRN 1X PRN ID PRIOR TO IV START; Start 08/13/16 at 07:00; Stop 08/14/16 at 06:59; Status DC Hydromorphone HCl (Dilaudid) 0.5 mg PRN Q10MIN PRN IV SEV PAIN, Second choice; Start 08/13/16 at 07:00; Stop 08/14/16 at 06:59; Status DC Prochlorperazine Edisylate (Compazine) 5 mg PACU PRN PRN IV NAUSEA, MRX1; Start 08/13/16 at 07:00; Stop 08/14/16 at 06:59; Status DC Morphine Sulfate 1 mg PRN Q10MIN PRN IV SEVERE PAIN; Start 08/13/16 at 07:00; Stop 08/14/16 at 06:59; Status DC Lactated Ringer's 1,000 ml @ 0 mls/hr Q0M IV ; Start 08/13/16 at 07:00; Stop at 18:59; Status DC Lidocaine HCl 2 ml PRN 1X PRN ID PRIOR TO IV START; Start 08/13/16 at 07:00; Stop 08/14/16 at 06:59; Status DC Hydromorphone HCl (Dilaudid) 0.5 mg PRN Q10MIN PRN IV SEV PAIN, Second choice; Start 08/13/16 at 07:00; Stop 08/14/16 at 06:59; Status DC Prochlorperazine Edisylate (Compazine) 5 mg PACU PRN PRN IV NAUSEA, MRX1; Start 08/13/16 at 07:00; Stop 08/14/16 at 06:59; Status DC Potassium Chloride 50 ml @ 50 mls/hr Q1H IV Last administered on 08/13/16 07: 57; Start 08/13/16 at 07:00; Stop 08/13/16 at 08:59; Status DC Rocuronium [place] (Zemuron) 50 mg STK-MED ONCE .ROUTE ; Start 08/13/16 at 12:50 ; Stop 08/13/16 at 12:51; Status DC Propofol 20 ml @ As Directed STK-MED ONCE IV ; Start 08/13/16 at 12:53; Stop at 12:54; Status DC Sevoflurane (Ultane) 30 ml STK-MED ONCE IH ; Start 08/13/16 at 14:04; Stop 08/13 at 14:05; Status DC Albumin Human 250 ml @ 100 mls/hr 1X ONCE IV Last administered on 08/13/16 23:38; Start 08/13/16 at 18:00; Stop 08/13/16 at 20:29; Status DC Albumin Human 500 ml @ 100 mls/hr 1X ONCE IV Last administered on 08/13/16 18:15; Start 08/13/16 at 18:00; Stop 08/13/16 at 22:59; Status DC Potassium Chloride 50 ml @ 50 mls/hr Q1H IV Last administered on 08/14/16 10: 46; Start 08/14/16 at 08:00; Stop 08/14/16 at 09:59; Status DC Nafcillin Sodium 2 gm/Sodium Chloride 100 ml @ 200 mls/hr Q4HRS IV Last administered on 08/23/16 08:51; Start 08/14/16 at 08:00; Stop 08/23/16 at 10:44; Status DC Enoxaparin Sodium (Lovenox 40mg Syringe) 40 mg Q24H SQ Last administered on 08/25 12:44; Start 08/14/16 at 12:00; Stop 08/26/16 at 11:53; Status DC Potassium Chloride (KCl Oral Soln) 40 meq 1X ONCE PEG Last administered on 07:54; Start 08/16/16 at 07:00; Stop 08/16/16 at 07:01; Status DC Potassium Chloride (KCl Oral Soln) 40 meq 1X ONCE PEG Last administered on 14:01; Start 08/16/16 at 12:00; Stop 08/16/16 at 12:01; Status DC Magnesium Sulfate/ Dextrose 50 ml @ 25 mls/hr 1X ONCE IV Last administered on 08/16/16 17:14; Start 08/16/16 at 16:30; Stop 08/16/16 at 18:29; Status DC Potassium Chloride (Klor-Con) 40 meq 1X ONCE PO ; Start 08/17/16 at 13:30; Stop 08/17/16 at 13:31; Status Cancel Potassium Chloride (KCl Oral Soln) 40 meq 1X ONCE PO Last administered on 08/17 15:34; Start 08/17/16 at 13:30; Stop 08/17/16 at 14:27; Status DC Potassium Chloride 100 ml @ 100 mls/hr PRN Q1HR PRN IV HYPOKALEMIA PER ICU PROTOCOL; Start 08/17/16 at 13:30; Status Cancel Potassium Chloride 50 ml @ 25 mls/hr PRN Q2HR PRN IV HYPOKALEMIA PER ICU PROTOCOL Last administered on 08/21/16 13:29; Start 08/17/16 at 13:30; Stop 08/21 at 13:34; Status DC Potassium Chloride (Klor-Con) 40 meq PRN Q2HR PRN PO HYPOKALEMIA PER ICU PROTOCOL Last administered on 09/04/16 08:04; Start 08/17/16 at 13:30; Stop at 08:32; Status DC Potassium Chloride 100 ml @ 100 mls/hr PRN Q1HR PRN IV HYPOKALEMIA PER ICU PROTOCOL; Start 08/17/16 at 13:30; Stop 09/04/16 at 15:41; Status DC Potassium Chloride 50 ml @ 25 mls/hr PRN Q2HR PRN IV HYPOKALEMIA PER ICU PROTOCOL; Start 08/17/16 at 13:30; Stop 09/04/16 at 15:41; Status DC Potassium Chloride (Klor-Con) 40 meq PRN Q2HR PRN PO HYPOKALEMIA PER ICU PROTOCOL; Start 08/17/16 at 13:30; Stop 09/04/16 at 08:33; Status DC Potassium Chloride 100 ml @ 100 mls/hr PRN Q1HR PRN IV HYPOKALEMIA PER ICU PROTOCOL; Start 08/17/16 at 13:30; Status Cancel Potassium Chloride 50 ml @ 25 mls/hr PRN Q2HR PRN IV HYPOKALEMIA PER ICU PROTOCOL Last administered on 08/27/16 14:37; Start 08/17/16 at 14:00; Stop at 15:41; Status DC Magnesium Sulfate/ Dextrose 100 ml @ 50 mls/hr PRN DAILY PRN IV HYPOMAGNESIA PER ICU PROTOCOL Last administered on 08/20/16 22:26; Start 08/18/16 at 09:00; Stop 09/04/16 at 15:41; Status DC Potassium Phos/ Sodium Phos (Phos-Nak) 1 pkt BID PO ; Start 08/17/16 at 21:00; Stop 08/18/16 at 09:01; Status DC Sodium Phosphate 40 mmol/Dextrose 263.3333 ml @ 62.5 mls/hr PRN 1X PRN IV HYPOPHOSP PER ICU PROTOCOL; Start 08/17/16 at 13:30; Status Cancel Potassium Chloride (KCl Oral Soln) 40 meq 1X ONCE PEG Last administered on 08/19 07:57; Start 08/19/16 at 07:45; Stop 08/19/16 at 07:46; Status DC Potassium Chloride (KCl Oral Soln) 40 meq 1X ONCE PEG Last administered on 08/19 11:36; Start 08/19/16 at 12:00; Stop 08/19/16 at 12:01; Status DC Alprazolam (Xanax) 0.5 mg 1X ONCE PO Last administered on 08/19/16 11:35; Start 08/19/16 at 11:15; Stop 08/19/16 at 11:16; Status DC Alprazolam (Xanax) 0.5 mg TID PEG Last administered on 08/23/16 20:34; Start at 15:00; Stop 08/24/16 at 08:11; Status DC Potassium Chloride 50 ml @ 50 mls/hr Q1H IV Last administered on 08/22/16 09:40 ; Start 08/22/16 at 08:30; Stop 08/22/16 at 10:29; Status DC Haloperidol Lactate (Haldol) 5 mg PRN Q6HRS PRN IVP AGITATION Last administered on 08/31/16 02:14; Start 08/22/16 at 09:15; Stop 09/03/16 at 10:57 ; Status DC Haloperidol Lactate (Haldol) 2 mg 1X ONCE IVP ; Start 08/22/16 at 09:15; Stop at 09:27; Status DC Magnesium Sulfate/ Dextrose 100 ml @ 50 mls/hr DAILY IV Last administered on 10:00; Start 08/23/16 at 09:00; Stop 08/26/16 at 08:59; Status DC Albumin Human 100 ml @ 100 mls/hr [id number] IV Last administered on 08/23/16 17:25 ; Start 08/23/16 at 09:00; Stop 08/23/16 at 16:59; Status DC Furosemide (Lasix) 40 mg [id number] IVP Last administered on 08/23/16 17:26; Start 08/23/16 at 09:00; Stop 08/23/16 at 16:01; Status DC Vitamin A/Vitamin D (Vitamin A & D Ointment) 1 james PRN Q1HR PRN TP SKIN PROTECTION Last administered on 08/31/16 17:52; Start 08/23/16 at 08:45 Cefepime HCl 1 gm/ Sodium Chloride 50 ml @ 100 mls/hr Q8HRS IV Last administered on 09/04/16 05:35; Start 08/23/16 at 14:00; Stop 09/04/16 at 07:57 ; Status DC Ondansetron HCl (Zofran) 4 mg PRN Q6HRS PRN IV NAUSEA/VOMITING Last administered on 08/23/16 19:27; Start 08/23/16 at 19:15 Alprazolam (Xanax) 0.25 mg TID PEG ; Start 08/24/16 at 09:00; Stop 08/24/16 at 09: 28; Status DC Diphenhydramine HCl (Benadryl) 25 mg HS PO ; Start 08/24/16 at 21:00; Stop at 21:00; Status DC Zolpidem Tartrate (Ambien) 5 mg PRN QHS PRN PO INSOMNIA Last administered on 21:06; Start 08/24/16 at 08:15 Alprazolam (Xanax) 0.5 mg TID PEG Last administered on 09/03/16 07:40; Start 08/24/16 at 09:00; Stop 09/03/16 at 10:57; Status DC Diphenhydramine HCl (Benadryl) 25 mg PRN QHS PRN PO sleep Last administered on 09/03/16 23:57; Start 08/24/16 at 21:00 Quetiapine Fumarate (SEROquel) 50 mg HS PO Last administered on 09/02/16 20:38 ; Start 08/24/16 at 21:00; Stop 09/03/16 at 20:55; Status DC Potassium Chloride 50 ml @ 50 mls/hr Q1H IV Last administered on 08/25/16 09:45 ; Start 08/25/16 at 08:00; Stop 08/25/16 at 09:59; Status DC Iohexol (Omnipaque 300 Mg/ml) 75 ml 1X ONCE IV Last administered on 08/25/16 15:45; Start 08/25/16 at 15:45; Stop 08/25/16 at 15:46; Status DC Iohexol (Omnipaque 240 Mg/ml) 50 ml 1X ONCE PO Last administered on 08/25/16 15:45; Start 08/25/16 at 15:45; Stop 08/25/16 at 15:46; Status DC Info (Do NOT chart on this entry -- for MONITORING) 1 each PRN DAILY PRN MC SEE COMMENTS; Start 08/25/16 at 16:00; Stop 08/27/16 at 15:59; Status DC Chlorhexidine Gluconate (Peridex) 15 ml BID SWSP Last administered on 08:17; Start 08/26/16 at 09:00; Stop 09/04/16 at 15:41; Status DC Potassium Chloride 50 ml @ 50 mls/hr Q1H IV ; Start 08/26/16 at 11:30; Stop at 11:30; Status DC Acetaminophen (Tylenol) 650 mg PRN Q6HRS PRN PEG MILD PAIN / TEMP Last administered on 09/03/16 07:40; Start 08/26/16 at 12:00; Stop 09/05/16 at 02:26 ; Status DC Lidocaine/Sodium Bicarbonate (Buffered Lidocaine 1%) 20 ml STK-MED ONCE IJ ; Start 08/26/16 at 14:50; Stop 08/26/16 at 14:51; Status DC Lidocaine/Sodium Bicarbonate (Buffered Lidocaine 1%) 20 ml 1X ONCE IJ Last administered on 08/26/16 15:42; Start 08/26/16 at 15:45; Stop 08/26/16 at 15:46; Status DC Lansoprazole (Prevacid) 30 mg BIDBFRMEAL FT Last administered on 09/05/16 08: 13; Start 08/27/16 at 17:30 Potassium Chloride 50 ml @ 50 mls/hr Q1H IV Last administered on 08/27/16 13:23 ; Start 08/27/16 at 13:00; Stop 08/27/16 at 14:59; Status DC Alteplase, Recombinant 5 mg/ Sterile Water 50 ml @ 0 mls/hr 1X ONCE INT CAT Last administered on 08/28/16 15:03; Start 08/28/16 at 10:45; Stop 08/28/16 at 10:46; Status DC Ferrous Sulfate 300 mg DAILY FT Last administered on 09/05/16 08:12; Start 03/07 at 09:00 Alteplase, Recombinant 5 mg/ Sterile Water 50 ml @ 0 mls/hr 1X ONCE INT CAT Last administered on 08/29/16 11:00; Start 08/29/16 at 11:00; Stop 08/29/16 at 11:01; Status DC Oxycodone/ Acetaminophen (Percocet 5/325) 1 tab PRN BID PRN PO PAIN Last administered on 09/02/16 10:36; Start 08/29/16 at 11:45; Stop 09/02/16 at 10:45 ; Status DC Metronidazole (Flagyl) 500 mg Q12HR PEG Last administered on 09/04/16 21:26; Start 08/30/16 at 09:00; Stop 09/05/16 at 02:26; Status DC Oxycodone HCl (Roxicodone) 10 mg Q4HRS PRN PO PAIN Last administered on 06:32; Start 08/30/16 at 15:15; Stop 09/02/16 at 10:45; Status DC Cholestyramine Resin (Questran Light) 4 gm QIDPMEDS PO Last administered on 13:38; Start 08/31/16 at 10:00 Diphenhydramine HCl (Benadryl) 25 mg PRN QHS PRN PO INSOMNIA; Start 08/31/16 at 10:30; Stop 09/03/16 at 10:57; Status DC Oxycodone HCl (Roxicodone) 5 mg Q4HRS PRN PO PAIN Last administered on 08:05; Start 09/02/16 at 10:45; Stop 09/04/16 at 15:42; Status DC Oxycodone HCl (Roxicodone) 10 mg Q4HRS PRN PO PAIN Last administered on 17:52; Start 09/02/16 at 11:00; Stop 09/04/16 at 15:42; Status DC Lactobacillus Acidophilus (Bacid, Jesi-Bid) 1 tab TIDWMEALS PO Last administered on 09/05/16 12:06; Start 09/03/16 at 08:00 Cholestyramine Resin (Questran Light) 4 gm BID@1000,2100 PEG ; Start 09/03/16 at 10:00; Stop 09/03/16 at 10:57; Status DC Alprazolam (Xanax) 0.5 mg QID PEG Last administered on 09/04/16 21:26; Start 09/03/16 at 13:00; Stop 09/05/16 at 02:26; Status DC Sertraline HCl (Zoloft) 25 mg QHS PO Last administered on 09/04/16 21:27; Start 09/03/16 at 21:00 Ibuprofen (Motrin) 600 mg Q8H PO Last administered on 09/05/16 11:14; Start at 11:15 Quetiapine Fumarate (SEROquel) 50 mg DAILY PO Last administered on 09/04/16 16 :31; Start 09/04/16 at 09:00 Cefazolin Sodium 2 gm/Sodium Chloride 50 ml @ 100 mls/hr Q8HRS IV Last administered on 09/05/16 13:38; Start 09/04/16 at 08:00 Potassium Chloride (KCl Oral Soln) 40 meq PRN Q2HR PRN PO HYPOKALEMIA PER ICU PROTOCOL; Start 09/04/16 at 08:45 Potassium Chloride (KCl Oral Soln) 40 meq PRN Q2HR PRN PO HYPOKALEMIA PER ICU PROTOCOL; Start 09/04/16 at 08:45 Barium Sulfate (Varibar Thin Liquid Apple) 148 gm 1X ONCE PO Last administered on 09/04/16 11:20; Start 09/04/16 at 11:15; Stop 09/04/16 at 11:16 ; Status DC Oxycodone HCl (Roxicodone) 10 mg Q5H PRN PO PAIN Last administered on 02:52; Start 09/04/16 at 17:00 Oxycodone HCl (Roxicodone) 5 mg Q5H PRN PO PAIN Last administered on 09/05/16 13:02; Start 09/04/16 at 17:00 Acetaminophen (Tylenol) 650 mg PRN Q6HRS PRN PO MILD PAIN / TEMP; Start at 02:30 Alprazolam (Xanax) 0.5 mg QID PO Last administered on 09/05/16 13:38; Start at 09:00 Metronidazole (Flagyl) 500 mg Q12HR PO Last administered on 09/05/16t 08:13; Start 09/05/16 at 09:00 Active Scripts Active Reported No Known Medications Prior To Admisstion (Info) Each 1 Each Vitals/I & O Vital Sign - Last 24 Hours 09/04/16 09/04/16 09/04/16 09/04/16 16:00 16:04 16:30 17:00 Temp 99.0 99.0 Pulse 99 Resp 27 25 B/P (MAP) 126/82 (97) Pulse Ox 96 96 O2 Delivery Room Air Trach Collar Room Air Room Air O2 Flow Rate 8.0 09/04/16 09/04/16 09/04/16 09/04/16 17:15 19:30 19:30 20:07 Temp 97.7 97.7 Pulse 104 B/P (MAP) 115/84 (94) Pulse Ox 100 O2 Delivery Room Air Room Air T-piece Room Air O2 Flow Rate 8.0 09/04/16 09/04/16 09/05/16 09/05/16 20:10 22:52 02:50 07:12 Temp 98.6 97.6 98.6 97.6 Pulse 87 89 Resp 20 B/P (MAP) 114/77 (89) 127/83 (98) Pulse Ox 98 92 100 O2 Delivery Room Air T-Tube T-Tube Room Air O2 Flow Rate 33.0 09/05/16 09/05/16 09/05/16 09/05/16 07:30 07:40 08:13 09:10 Temp 97.8 97.8 Pulse 93 Resp 24 B/P (MAP) 110/80 (90) Pulse Ox 95 95 100 O2 Delivery Room Air Room Air Room Air O2 Flow Rate 33.0 33.0 09/05/16 09/05/16 09/05/16 11:07 11:25 13:02 Temp 98.3 98.3 Pulse 100 Resp 28 B/P (MAP) 117/82 (94) Pulse Ox 100 97 97 O2 Delivery Room Air Room Air Room Air O2 Flow Rate 33.0 Intake and Output 09/04/16 09/04/16 09/05/16 14:59 22:59 06:59 Intake Total 550 ml 650 ml 340 ml Output Total 575 ml 650 ml 800 ml Balance -25 ml 0 ml -460 ml Nutrition Consultation Dietary Evaluation: Recommendations by RD: Increase Calorie Intake, Protein supplementation Comments: -Pt refuses to drink the boost plus protein shakes. Tried the boost breeze protein shakes and agrees. Add orange/greene Boost Breeze TID (250 calories/9 grams protein) -Pt tried the boost pudding and agrees to consume. Add Vanilla Boost Pudding BID (240 calories / 7 grams protein) -provided alternate menu, pt planning to update food preferences Expected Outcomes/Goals: meet 75% estimated nutrition needs- met Interpretation of weight loss: >7.5% in 3 months Malnutrition Findings: Reduced Test Carrier Strength: N/A Reduced Test Carrier Strength (Non-Sev: N/A Malnutrition related to morbid: No Weight Status: Overweight Fluid Accumulation (N/A): N/A EPHRAIM VALADEZ MD September 05, 2016 13:57
[2016-09-05 15:00] VITALS: BP 117/78
[2016-09-05] MEDS: SERTRALINE 25 MG TABLET. PO SCH (20:51)
[2016-09-05 23:30] VITALS: BP 125/74
[2016-09-06] VITALS (7 sets, daily range): BP systolic 99–134; BP diastolic 58–90
[2016-09-06] MEDS: diphenhydrAMINE HCL 25 MG CAPSULE PO PRN ×2 (02:10→21:48)
[2016-09-06] MEDS: IBUPROFEN 600 MG TABLET. PO SCH ×3 (02:10→18:38)
[2016-09-06] MEDS: oxyCODONE IR 5 MG TABLET PO PRN ×4 (02:11→18:38)
[2016-09-06 04:26] LABS: BASO # 0.1 x10^3/uL (0.0-0.2); BASO % 1 % (0-3); EOS % 3 % (0-3); HEMOGLOBIN 9.7 g/dL (12.0-15.5); LYMPH % 21 % (24-48); MEAN CORPUSCULAR HEMOGLOBIN 29 pg (25-35); MEAN CORPUSCULAR HGB CONC 33 g/dL (31-37); MEAN CORPUSCULAR VOLUME 90 fL (79-100); MONO % 8 % (0-9); NEUT % 68 % (31-73); PLATELET COUNT 282 x10^3/uL (140-400); RED BLOOD COUNT 3.32 x10^6/uL (3.50-5.40); RED CELL DISTRIBUTION WIDTH 17.6 % (11.5-14.5); WHITE BLOOD COUNT 9.4 x10^3/uL (4.0-11.0)
--- NOTE | 2016-09-06 07:26 | PDOC ---
Infectious Disease Note Subjective Subjective Comfortable, denies pain Improved cough Has been eating ROS ROS GEN: Denies fevers, chills, sweats HEENT: Denies blurred vision, sore throat CV: Denies chest pain RESP: Denies shortness of air, cough GI: Denies n/v/d NEURO: Denies confusion, dizziness MSK: Denies weakness, joint pain/swelling Vital Sign Vital Signs Vital Signs Date Time Temp Pulse Resp B/P (MAP) Pulse Ox O2 Delivery O2 Flow Rate FiO2 09/06/16 02:26 97.7 96 125/79 (94) 97 Room Air 97.7 09/05/16 20:08 8.0 09/05/16 15:00 16 Physical Exam PHYSICAL EXAM GENERAL: Propped up in bed, alert, relaxed appearance, watching TV HEENT: PERRL, OC/OP pink, poor dentition NECK: Trach, speaking valve LUNGS: + rhonchi, nonlabored. HEART: S1S2 ABD: Min distension but improving, soft, NT. g-tube intact EXT: Generalized edema - better [employer] IN[employer]: Alert, responds appropriately SKIN: No rash LUE-PICC. clean Labs Lab Laboratory Tests Test 09/06/16 04:15 White Blood Count 9.4 x10^3/uL (4.0-11.0) Red Blood Count 3.32 x10^6/uL (3.50-5.40) Hemoglobin 9.7 g/dL (12.0-15.5) Hematocrit 30.0 % (36.0-47.0) Mean Corpuscular Volume 90 fL (79-100) Mean Corpuscular Hemoglobin 29 pg (25-35) Mean Corpuscular Hemoglobin Concent 33 g/dL (31-37) Red Cell Distribution Width 17.6 % (11.5-14.5) Platelet Count 282 x10^3/uL (140-400) Neutrophils (%) (Auto) 68 % (31-73) Lymphocytes (%) (Auto) 21 % (24-48) Monocytes (%) (Auto) 8 % (0-9) Eosinophils (%) (Auto) 3 % (0-3) Basophils (%) (Auto) 1 % (0-3) Neutrophils # (Auto) 6.4 x10^3uL (1.8-7.7) Lymphocytes # (Auto) 2.0 x10^3/uL (1.0-4.8) Monocytes # (Auto) 0.7 x10^3/uL (0.0-1.1) Eosinophils # (Auto) 0.3 x10^3/uL (0.0-0.7) Basophils # (Auto) 0.1 x10^3/uL (0.0-0.2) Objective Assessment Loculated pleural effusions- S/p Bilat Chest tubes 08/26. tubes now removed Ecoli in sputum (08/22) Leukocytosis - better Acute anemia s/p PRBCs, 08/16, 08/20, 08/27 S/p Trach/PEG 08/13 MSSA sepsis 08/01 ([facility]) -Repeat BC positive, 08/05 & 08/07. Neg 08/09 Right-sided bacterial endocarditis. -TTE. 3.0 x 2.0cm mobile mass TV Multiple pulmonary nodules/septic emboli Acute Resp failure - Intubated ? developing ARDS. S/p Bronch 08/08. MSSA. Trach IV drug use. Hep C Ileus Renal insufficiency. Severe thrombocytopenia. improved Hepatosplenomegaly on CT Plan Plan of Care Cont Cefazolin. Patient will need a total of six weeks of IV abx (09/19/2016 end date) to treat endocarditis/bacteremia Discont Cholestyramine as stools are forming Cont probiotics Discont Flagyl (08/30) Please call for questions over the weekend KAYLYNN SHAY MD September 06, 2016 07:26
[2016-09-06] MEDS: IPRATRPIUM/ALBUTEROL 0.5/2.5MG 3 ML NEBU. NEB SCH ×4 (08:00→19:18)
[2016-09-06] MEDS: BUDESONIDE 0.5 MG/2 ML NEBU. NEB SCH ×2 (08:00→19:18)
[2016-09-06] MEDS: FERROUS SULFATE ORAL 300 MG/5 ML SOLUTION. FT SCH (08:12)
[2016-09-06] MEDS: LANSOPRAZOLE 30 MG TAB.RAP.DR FT SCH ×2 (08:13→17:08)
[2016-09-06] MEDS: ALPRAZolam 0.5 MG TABLET PO SCH ×4 (08:14→21:47)
[2016-09-06] MEDS: QUEtiapine 25 MG TABLET. PO SCH (08:14)
[2016-09-06] MEDS: LACTOBACILLUS ACIDOPH & BULGAR 1 TABLET. PO SCH ×3 (08:14→17:07)
[2016-09-06] MEDS: NYSTATIN TOPICAL POWDER 15GM BOTTLE. TP SCH ×2 (08:15→21:49)
--- NOTE | 2016-09-06 10:01 | PDOC ---
Subjective: Subjective: No complaints. Objective: Objective: No GI concerns per RNs. Vital Signs: Vital Signs Date Time Temp Pulse Resp B/P (MAP) Pulse Ox O2 Delivery O2 Flow Rate FiO2 09/06/16 09:01 95 Tracheal Collar 8.0 09/06/16 08:00 98.1 98 18 117/76 (90) 98.1 Labs: Laboratory Tests Test 09/06/16 04:15 White Blood Count 9.4 x10^3/uL Red Blood Count 3.32 x10^6/uL Hemoglobin 9.7 g/dL Hematocrit 30.0 % Mean Corpuscular Volume 90 fL Mean Corpuscular Hemoglobin 29 pg Mean Corpuscular Hemoglobin Concent 33 g/dL Red Cell Distribution Width 17.6 % Platelet Count 282 x10^3/uL Neutrophils (%) (Auto) 68 % Lymphocytes (%) (Auto) 21 % Monocytes (%) (Auto) 8 % Eosinophils (%) (Auto) 3 % Basophils (%) (Auto) 1 % Neutrophils # (Auto) 6.4 x10^3uL Lymphocytes # (Auto) 2.0 x10^3/uL Monocytes # (Auto) 0.7 x10^3/uL Eosinophils # (Auto) 0.3 x10^3/uL Basophils # (Auto) 0.1 x10^3/uL PE: GEN: NAD, was asleep ABD: S/ND/NT, PEG looks good NEURO/PSYCH: A & O 3 A/P: S/p PEG 08/13/16, tolerating PO -- PEG will need to stay in for 4-6 weeks before removal. ORQUIDEA ELIZABETH September 06, 2016 10:01
--- NOTE | 2016-09-06 11:15 | PDOC ---
PULMONARY PROGRESS NOTES Subjective tolerates PM valve well s/p bilateral chest tubes, with removal s/p intra pleural TPA left side 08/28, 08/29 Vitals Vital Signs Date Time Temp Pulse Resp B/P (MAP) Pulse Ox O2 Delivery O2 Flow Rate FiO2 09/06/16 11:03 94 18 99/58 (72) 100 Tracheal Collar 8.0 09/06/16 08:00 98.1 98.1 Comments ros as mentioned as above other sys otherwise neg ROS: No Chest Pain, No Abdominal Pain General: Alert, No acute distress HEENT: Other (nc at perrl. poor dentition, nose clear) Lungs: Other (decrease bs) Cardiovascular: S1, S2, Other Abdomen: Soft, Non-tender, Other (no mass) Neuro Exam: Alert, Oriented Extremities: Other (edema) Skin: Warm Labs Laboratory Tests Test 09/06/16 04:15 White Blood Count 9.4 x10^3/uL (4.0-11.0) Red Blood Count 3.32 x10^6/uL (3.50-5.40) Hemoglobin 9.7 g/dL (12.0-15.5) Hematocrit 30.0 % (36.0-47.0) Mean Corpuscular Volume 90 fL (79-100) Mean Corpuscular Hemoglobin 29 pg (25-35) Mean Corpuscular Hemoglobin Concent 33 g/dL (31-37) Red Cell Distribution Width 17.6 % (11.5-14.5) Platelet Count 282 x10^3/uL (140-400) Neutrophils (%) (Auto) 68 % (31-73) Lymphocytes (%) (Auto) 21 % (24-48) Monocytes (%) (Auto) 8 % (0-9) Eosinophils (%) (Auto) 3 % (0-3) Basophils (%) (Auto) 1 % (0-3) Neutrophils # (Auto) 6.4 x10^3uL (1.8-7.7) Lymphocytes # (Auto) 2.0 x10^3/uL (1.0-4.8) Monocytes # (Auto) 0.7 x10^3/uL (0.0-1.1) Eosinophils # (Auto) 0.3 x10^3/uL (0.0-0.7) Basophils # (Auto) 0.1 x10^3/uL (0.0-0.2) Laboratory Tests Test 09/06/16 04:15 White Blood Count 9.4 x10^3/uL (4.0-11.0) Red Blood Count 3.32 x10^6/uL (3.50-5.40) Hemoglobin 9.7 g/dL (12.0-15.5) Hematocrit 30.0 % (36.0-47.0) Mean Corpuscular Volume 90 fL (79-100) Mean Corpuscular Hemoglobin 29 pg (25-35) Mean Corpuscular Hemoglobin Concent 33 g/dL (31-37) Red Cell Distribution Width 17.6 % (11.5-14.5) Platelet Count 282 x10^3/uL (140-400) Neutrophils (%) (Auto) 68 % (31-73) Lymphocytes (%) (Auto) 21 % (24-48) Monocytes (%) (Auto) 8 % (0-9) Eosinophils (%) (Auto) 3 % (0-3) Basophils (%) (Auto) 1 % (0-3) Neutrophils # (Auto) 6.4 x10^3uL (1.8-7.7) Lymphocytes # (Auto) 2.0 x10^3/uL (1.0-4.8) Monocytes # (Auto) 0.7 x10^3/uL (0.0-1.1) Eosinophils # (Auto) 0.3 x10^3/uL (0.0-0.7) Basophils # (Auto) 0.1 x10^3/uL (0.0-0.2) Medications Active Scripts Medications Dose Route/Sig Days Date Category No Known Medications Prior To Admisstion (Info) Each 1 Each 08/06/16 Reported Comments cxr reviewed, 09/02 interval improvement in right-sided parenchymal opacities / volume loss Left base Impression . 1. Acute hypoxemic respiratory failure, multifactorial in etiology 2. bilateral loculated effusions, suspected empyema, s/p bilateral chest tubes , VERY LOW GLUCOSE(9), LOW PH , s/p TPA and removal of chest tubes 3. Bilateral pulmonary nodules with cavitation, due to septic emboli. 4. Endocarditis. right sided, improving vegetations 5. Anemia, 6. Intravenous drug abuse. 7. MSSA septicemia/pneumonia/ CHF Plan . T-shield 24 hrs/pm valve s/p removal of bilateral chest tube s/p intra pleural TPA left side Overall left empyema has sig. improved ,only small LL pockets. Trach secretions for c/s, E-coli, on antibiotic per ID, bronchodilators off lovenox, continues to have low Hb and need for transfusion, on scds oral nutrition downsize trach #6 next week CARLEY WORKMAN MD September 06, 2016 11:15
--- NOTE | 2016-09-06 13:16 | PDOC ---
PROGRESS NOTES Chief Complaint Chief Complaint Sepsis Acute hypoxic respir failure ASSESSMENT AND PLAN: 1. Sepsis: resolved 2. 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 MSSA. on cefepime (to cover E.coli as well). Abx rx until 09/19 3. PNA: septic emboli w/cavitary lesions. sputum with heavy growth E.coli. 4. 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 rpt CT chest on 08/31 with improvement. Flagyl added as per Dr Will 5. Acute respir failure: trached, vent weaned to trach shield. rpt swallow study today: no dysphagia. start PO feeds 6. Diarrhea: C.diff neg. prob due to TF - changed. probiotics 7. Anemia: severe, recurrent: multifactorial, incl severe inflammation, HCV toxicity. inflammation confirmed by iron studies. b12/folate WNL. on daily low dose Fe 8. Thrombocytopenia: 2/2 infection, now resolved. monitor 9. ELMIRA: resolved 10. Hep C: new dx during current admit. F/U on O/P basis for rx 11. Polysubstance abuse: wean narcotics: oxy5 q4 -> q5 PRN. add adjunct NSAIDs, heat. 12. Depression: increase xanax to qid PRN. start Zoloft 13. Malnutrition: severe, POA, weight loss prior to admit, albumin critically low. suspect large component of inflammation as well. wean peg feeds, until full PO established History of Present Illness History of Present Illness abd discomfort, no pain. in good spirits Vitals Vitals Vital Signs Date Time Temp Pulse Resp B/P (MAP) Pulse Ox O2 Delivery O2 Flow Rate FiO2 09/06/16 11:57 99 AP NEB 8.0 09/06/16 11:03 94 18 99/58 (72) 09/06/16 08:00 98.1 98.1 Physical Exam General: Alert, Cooperative, No acute distress Heart: Normal S1, Normal S2, No murmurs Lungs: Other (decrease bs) Abdomen: Normal bowel sounds, Other (Hepatosplenomegaly present) Extremities: No cyanosis, Other (1+ edema) Skin: No breakdown, No significant lesion Labs LABS Laboratory Tests Test 09/06/16 04:15 White Blood Count 9.4 x10^3/uL (4.0-11.0) Red Blood Count 3.32 x10^6/uL (3.50-5.40) Hemoglobin 9.7 g/dL (12.0-15.5) Hematocrit 30.0 % (36.0-47.0) Mean Corpuscular Volume 90 fL (79-100) Mean Corpuscular Hemoglobin 29 pg (25-35) Mean Corpuscular Hemoglobin Concent 33 g/dL (31-37) Red Cell Distribution Width 17.6 % (11.5-14.5) Platelet Count 282 x10^3/uL (140-400) Neutrophils (%) (Auto) 68 % (31-73) Lymphocytes (%) (Auto) 21 % (24-48) Monocytes (%) (Auto) 8 % (0-9) Eosinophils (%) (Auto) 3 % (0-3) Basophils (%) (Auto) 1 % (0-3) Neutrophils # (Auto) 6.4 x10^3uL (1.8-7.7) Lymphocytes # (Auto) 2.0 x10^3/uL (1.0-4.8) Monocytes # (Auto) 0.7 x10^3/uL (0.0-1.1) Eosinophils # (Auto) 0.3 x10^3/uL (0.0-0.7) Basophils # (Auto) 0.1 x10^3/uL (0.0-0.2) Comment Review of Relevant I have reviewed the following items shanta (where applicable) has been applied. Labs Laboratory Tests Test 09/06/16 04:15 White Blood Count 9.4 x10^3/uL (4.0-11.0) Red Blood Count 3.32 x10^6/uL (3.50-5.40) Hemoglobin 9.7 g/dL (12.0-15.5) Hematocrit 30.0 % (36.0-47.0) Mean Corpuscular Volume 90 fL (79-100) Mean Corpuscular Hemoglobin 29 pg (25-35) Mean Corpuscular Hemoglobin Concent 33 g/dL (31-37) Red Cell Distribution Width 17.6 % (11.5-14.5) Platelet Count 282 x10^3/uL (140-400) Neutrophils (%) (Auto) 68 % (31-73) Lymphocytes (%) (Auto) 21 % (24-48) Monocytes (%) (Auto) 8 % (0-9) Eosinophils (%) (Auto) 3 % (0-3) Basophils (%) (Auto) 1 % (0-3) Neutrophils # (Auto) 6.4 x10^3uL (1.8-7.7) Lymphocytes # (Auto) 2.0 x10^3/uL (1.0-4.8) Monocytes # (Auto) 0.7 x10^3/uL (0.0-1.1) Eosinophils # (Auto) 0.3 x10^3/uL (0.0-0.7) Basophils # (Auto) 0.1 x10^3/uL (0.0-0.2) Laboratory Tests Test 09/06/16 04:15 White Blood Count 9.4 x10^3/uL (4.0-11.0) Red Blood Count 3.32 x10^6/uL (3.50-5.40) Hemoglobin 9.7 g/dL (12.0-15.5) Hematocrit 30.0 % (36.0-47.0) Mean Corpuscular Volume 90 fL (79-100) Mean Corpuscular Hemoglobin 29 pg (25-35) Mean Corpuscular Hemoglobin Concent 33 g/dL (31-37) Red Cell Distribution Width 17.6 % (11.5-14.5) Platelet Count 282 x10^3/uL (140-400) Neutrophils (%) (Auto) 68 % (31-73) Lymphocytes (%) (Auto) 21 % (24-48) Monocytes (%) (Auto) 8 % (0-9) Eosinophils (%) (Auto) 3 % (0-3) Basophils (%) (Auto) 1 % (0-3) Neutrophils # (Auto) 6.4 x10^3uL (1.8-7.7) Lymphocytes # (Auto) 2.0 x10^3/uL (1.0-4.8) Monocytes # (Auto) 0.7 x10^3/uL (0.0-1.1) Eosinophils # (Auto) 0.3 x10^3/uL (0.0-0.7) Basophils # (Auto) 0.1 x10^3/uL (0.0-0.2) Microbiology 08/12/16 Blood Fungal Culture - Preliminary, Resulted 08/12/16 Fungal Culture Result 1 - Preliminary, Resulted 08/26/16 Gram Stain - Final, Complete 08/22/16 Gram Stain - Final, Complete 08/31/16 Urine Culture - Final, Complete 08/31/16 Urine Culture Result 1 (JAMEY) - Final, Complete Medications Current Medications Amino Acids/ Glycerin/ Electrolytes 1,000 ml @ 100 mls/hr Q10H IV Last administered on 08/05/16 02:40; Start 08/02/16 at 03:00; Stop 08/05/16 at 08:50 ; Status DC Morphine Sulfate 2 mg PRN Q2HR PRN IV SEVERE PAIN Last administered on 11:59; Start 08/02/16 at 02:30; Stop 08/02/16 at 13:28; Status DC Daptomycin 220 mg/ Sodium Chloride 50 ml @ 100 mls/hr Q24H IV ; Start 08/02/16 at 09:15; Stop 08/02/16 at 15:58; Status DC Cefepime HCl 1 gm/ Sodium Chloride 50 ml @ 100 mls/hr Q12HR IV Last administered on 08/04/16 08:10; Start 08/02/16 at 10:00; Stop 08/04/16 at 10:33 ; Status DC Daptomycin 220 mg/ Sodium Chloride 50 ml @ 100 mls/hr ONCE ONCE IV ; Start at 10:00; Stop 08/02/16 at 10:29; Status Cancel Potassium Chloride (Klor-Con) 40 meq 1X ONCE PO Last administered on 10:17; Start 08/02/16 at 09:45; Stop 08/02/16 at 09:46; Status DC Daptomycin 220 mg/ Sodium Chloride 50 ml @ 100 mls/hr Q24H IV Last administered on 08/03/16 09:43; Start 08/02/16 at 10:15; Stop 08/03/16 at 10:29 ; Status DC Potassium Chloride (Klor-Con) 40 meq 1X ONCE PO Last administered on 12:57; Start 08/02/16 at 12:30; Stop 08/02/16 at 12:36; Status DC Morphine Sulfate 5 mg PRN Q2HRS PRN IV MODERATE TO SEVERE PAIN Last administered on 08/26/16 16:15; Start 08/02/16 at 13:30; Stop 08/26/16 at 17:31; Status DC Morphine Sulfate 8 mg PRN Q2HRS PRN IV MODERATE TO SEVERE PAIN Last administered on 08/04/16 14:58; Start 08/02/16 at 13:30; Stop 08/26/16 at 17:31 ; Status DC Acetaminophen (Tylenol) 650 mg PRN Q6HRS PRN PO TEMP GREATER THAN 100.4 Last administered on 08/26/16 00:24; Start 08/02/16 at 14:45; Stop 08/26/16 at 17:31; Status DC Lactated Ringer's 1,000 ml @ 50 mls/hr Q20H IV ; Start 08/05/16 at 07:00; Stop 08/05/16 at 18:13; Status DC Daptomycin 220 mg/ Sodium Chloride 50 ml @ 100 mls/hr Q24H IV ; Start 08/03/16 at 11:00; Status Cancel Potassium Chloride (Klor-Con) 40 meq 1X ONCE PO Last administered on 17:41; Start 08/02/16 at 17:15; Stop 08/02/16 at 17:18; Status DC Potassium Chloride (Klor-Con) 40 meq BIDWMEALS PO ; Start 08/03/16 at 08:00; Stop 08/03/16 at 11:08; Status DC Morphine Sulfate 5 mg 1X ONCE IV Last administered on 08/02/16 21:45; Start 08/02/16 at 21:30; Stop 08/02/16 at 21:33; Status DC Lorazepam (Ativan) 1 mg 1X ONCE IV Last administered on 08/02/16 21:30; Start 08/02/16 at 21:30; Stop 08/02/16 at 21:33; Status DC Acetaminophen (Acetaminophen Supp) 650 mg PRN Q6HRS PRN AL MILD PAIN / TEMP Last administered on 08/13/16 03:13; Start 08/03/16 at 01:15; Stop 08/26/16 at 17:31; Status DC Albuterol/ Ipratropium (Duoneb) 3 ml RTQID NEB Last administered on 09/06/16 11:56; Start 08/03/16 at 08:00 Budesonide (Pulmicort) 0.5 mg RTBID NEB Last administered on 09/06/16 08:00; Start 08/03/16 at 08:00 Pantoprazole Sodium (Protonix Vial) 40 mg 1X ONCE IVP Last administered on 10:06; Start 08/03/16 at 08:00; Stop 08/03/16 at 08:01; Status DC Daptomycin 320 mg/ Sodium Chloride 50 ml @ 100 mls/hr Q24H IV Last administered on 08/04/16 10:03; Start 08/04/16 at 10:00; Stop 08/04/16 at 10:33 ; Status DC Lorazepam (Ativan) 0.5 mg PRN Q6HRS PRN IV ANXIETY / AGITATION Last administered on 08/04/16 09:12; Start 08/03/16 at 11:15; Stop 08/07/16 at 11:02 ; Status DC Lorazepam (Ativan) 0.5 mg 1X ONCE IV Last administered on 08/04/16 10:00; Start 08/04/16 at 10:00; Stop 08/04/16 at 10:01; Status DC Morphine Sulfate 5 mg 1X ONCE IV Last administered on 08/04/16 10:00; Start 08/04/16 at 10:00; Stop 08/04/16 at 10:01; Status DC Lorazepam (Ativan) 0.5 mg PRN Q4HRS PRN IV ANXIETY / AGITATION Last administered on 08/25/16 02:29; Start 08/04/16 at 10:00; Stop 08/26/16 at 17:31; Status DC Nafcillin Sodium 2 gm/Sodium Chloride 100 ml @ 200 mls/hr Q4HRS IV Last administered on 08/09/16 10:10; Start 08/04/16 at 12:00; Stop 08/09/16 at 11:49 ; Status DC Propofol 100 ml @ As Directed STK-MED ONCE IV ; Start 08/04/16 at 16:10; Stop 08/04/16 at 16:11; Status DC Succinylcholine Chloride (Anectine) 200 mg STK-MED ONCE .ROUTE ; Start 08/04/16 at 16:14; Stop 08/04/16 at 16:15; Status DC Succinylcholine Chloride (Anectine) 200 mg 1X ONCE IV ; Start 08/04/16 at 16:45 ; Stop 08/04/16 at 16:46; Status DC Propofol 100 ml @ 0 mls/hr CONT PRN IV SEE I/O RECORD Last administered on 08/17 10:18; Start 08/04/16 at 16:45; Stop 08/26/16 at 17:31; Status DC Lorazepam (Ativan) 0.5 mg 1X ONCE IV Last administered on 08/04/16 16:45; Start 08/04/16 at 16:45; Stop 08/04/16 at 16:46; Status DC Morphine Sulfate 5 mg 1X ONCE IV Last administered on 08/04/16 16:44; Start 08/04/16 at 16:45; Stop 08/04/16 at 16:46; Status DC Fentanyl Citrate 30 ml @ 0 mls/hr CONT PRN IV PROTOCOL Last administered on 07:32; Start 08/04/16 at 16:45; Stop 09/02/16 at 10:45; Status DC Chlorhexidine Gluconate (Peridex) 15 ml BID MM Last administered on 08/17/16 10:18; Start 08/04/16 at 21:00; Stop 08/17/16 at 19:36; Status DC Famotidine (Pepcid) 20 mg BID IVP Last administered on 08/26/16 08:43; Start at 17:00; Stop 08/26/16 at 17:31; Status DC Sodium Chloride 1,000 ml @ 100 mls/hr Q10H IV Last administered on 08/07/16 04:35; Start 08/05/16 at 09:00; Stop 08/07/16 at 08:59; Status DC Succinylcholine Chloride (Anectine) 200 mg STK-MED ONCE .ROUTE ; Start 08/04/16 at 16:00; Stop 08/05/16 at 12:32; Status DC Lorazepam (Ativan) 2 mg 1X ONCE IV Last administered on 08/05/16 20:43; Start 08/05/16 at 21:00; Stop 08/05/16 at 21:01; Status DC Furosemide (Lasix) 40 mg 1X PRN PRN IV blood transfusion Last administered on 14:17; Start 08/06/16 at 08:00; Stop 08/07/16 at 07:59; Status DC Sodium Bicarbonate 50 meq 1X ONCE IV Last administered on 08/06/16 14:06; Start 08/06/16 at 12:00; Stop 08/06/16 at 12:01; Status DC Calcium Chloride 1,000 mg STK-MED ONCE IV ; Start 08/04/16 at 12:00; Stop at 15:13; Status DC Epinephrine HCl (Epinephrine Syringe) 2 mg STK-MED ONCE .ROUTE ; Start 08/04/16 at 12:00; Stop 08/06/16 at 15:13; Status DC Sodium Bicarbonate 100 meq STK-MED ONCE .ROUTE ; Start 08/04/16 at 12:00; Stop 08/06/16 at 15:13; Status DC Amino Acids/ Glycerin/ Electrolytes 1,000 ml @ 100 mls/hr Q10H IV Last administered on 08/08/16 12:33; Start 08/07/16 at 10:00; Stop 08/09/16 at 09:42 ; Status DC Enoxaparin Sodium (Lovenox 40mg Syringe) 40 mg Q24H SQ Last administered on 13:10; Start 08/07/16 at 13:00; Stop 08/10/16 at 10:43; Status DC Vecuronium [place] (Norcuron Bolus) 10 mg STK-MED ONCE IV ; Start 08/07/16 at 13 :56; Stop 08/07/16 at 13:57; Status DC Vecuronium [place] (Norcuron Bolus) 6 mg 1X ONCE IV Last administered on 14:06; Start 08/07/16 at 14:00; Stop 08/07/16 at 14:05; Status DC Sodium Bicarbonate 50 meq 1X ONCE IV Last administered on 08/08/16 11:46; Start 08/08/16 at 11:45; Stop 08/08/16 at 11:46; Status DC Nystatin (Nystop) 1 james BID TP Last administered on 5/19/17at 08:15; Start at 21:00 Linezolid 300 ml @ 300 mls/hr Q12HR IV Last administered on 08/14/16 20:51; Start 08/09/16 at 09:00; Stop 08/15/16 at 07:21; Status DC Sodium Chloride 1,000 ml @ 20 mls/hr Q24H IV Last administered on 08/26/16 06: 41; Start 08/09/16 at 09:45; Stop 08/27/16 at 13:51; Status DC Sodium Bicarbonate 150 meq/Dextrose 1,150 ml @ 100 mls/hr 1X ONCE IV Last administered on 08/09/16 12:25; Start 08/09/16 at 11:30; Stop 08/09/16 at 22:59 ; Status DC Piperacillin Sod/ Tazobactam Sod (Zosyn Per Pharmacy) 1 each PRN DAILY PRN MC SEE COMMENTS; Start 08/09/16 at 12:00; Stop 08/14/16 at 07:40; Status DC Piperacillin Sod/ Tazobactam Sod 4.5 gm/Sodium Chloride 100 ml @ 200 mls/hr Q6HRS IV Last administered on 08/14/16 05:58; Start 08/09/16 at 12:30; Stop at 07:33; Status DC Vecuronium [place] (Norcuron Bolus) 5 mg PRN Q4HRS PRN IV INCREASED RESPIRATORY ,NOT RELI Last administered on 08/11/16 02:56; Start 08/09/16 at 13:30; Stop at 17:31; Status DC Potassium Chloride 50 ml @ 100 mls/hr Q1H IV ; Start 08/10/16 at 09:30; Stop at 10:59; Status Cancel Potassium Chloride 100 ml @ 100 mls/hr Q1H IV Last administered on 08/10/16 16:28; Start 08/10/16 at 10:30; Stop 08/10/16 at 14:29; Status DC Potassium Chloride (KCl Oral Soln) 60 meq 1X ONCE PEG Last administered on 11:16; Start 08/10/16 at 11:00; Stop 08/10/16 at 11:01; Status DC Sodium Bicarbonate 150 meq/Dextrose 1,150 ml @ 100 mls/hr [id number] IV Last administered on 08/10/16 11:14; Start 08/10/16 at 11:00; Stop 08/10/16 at 22:29 ; Status DC Enoxaparin Sodium (Lovenox 40mg Syringe) 40 mg Q24H SQ ; Start 08/10/16 at 13:00 ; Stop 08/10/16 at 13:00; Status DC Micafungin Sodium 100 mg/Dextrose 100 ml @ 100 mls/hr Q24H IV Last administered on 08/13/16 16:26; Start 08/11/16 at 16:00; Stop 08/14/16 at 07:33 ; Status DC Furosemide (Lasix) 40 mg 1X ONCE IVP Last administered on 08/12/16 08:38; Start 08/12/16 at 08:00; Stop 08/12/16 at 08:06; Status DC Morphine Sulfate 1 mg PRN Q10MIN PRN IV SEVERE PAIN; Start 08/13/16 at 07:00; Stop 08/14/16 at 06:59; Status DC Lactated Ringer's 1,000 ml @ 0 mls/hr Q0M IV ; Start 08/13/16 at 07:00; Stop at 18:59; Status DC Lidocaine HCl 2 ml PRN 1X PRN ID PRIOR TO IV START; Start 08/13/16 at 07:00; Stop 08/14/16 at 06:59; Status DC Hydromorphone HCl (Dilaudid) 0.5 mg PRN Q10MIN PRN IV SEV PAIN, Second choice; Start 08/13/16 at 07:00; Stop 08/14/16 at 06:59; Status DC Prochlorperazine Edisylate (Compazine) 5 mg PACU PRN PRN IV NAUSEA, MRX1; Start 08/13/16 at 07:00; Stop 08/14/16 at 06:59; Status DC Morphine Sulfate 1 mg PRN Q10MIN PRN IV SEVERE PAIN; Start 08/13/16 at 07:00; Stop 08/14/16 at 06:59; Status DC Lactated Ringer's 1,000 ml @ 0 mls/hr Q0M IV ; Start 08/13/16 at 07:00; Stop at 18:59; Status DC Lidocaine HCl 2 ml PRN 1X PRN ID PRIOR TO IV START; Start 08/13/16 at 07:00; Stop 08/14/16 at 06:59; Status DC Hydromorphone HCl (Dilaudid) 0.5 mg PRN Q10MIN PRN IV SEV PAIN, Second choice; Start 08/13/16 at 07:00; Stop 08/14/16 at 06:59; Status DC Prochlorperazine Edisylate (Compazine) 5 mg PACU PRN PRN IV NAUSEA, MRX1; Start 08/13/16 at 07:00; Stop 08/14/16 at 06:59; Status DC Potassium Chloride 50 ml @ 50 mls/hr Q1H IV Last administered on 08/13/16 07: 57; Start 08/13/16 at 07:00; Stop 08/13/16 at 08:59; Status DC Rocuronium [place] (Zemuron) 50 mg STK-MED ONCE .ROUTE ; Start 08/13/16 at 12:50 ; Stop 08/13/16 at 12:51; Status DC Propofol 20 ml @ As Directed STK-MED ONCE IV ; Start 08/13/16 at 12:53; Stop at 12:54; Status DC Sevoflurane (Ultane) 30 ml STK-MED ONCE IH ; Start 08/13/16 at 14:04; Stop 08/13 at 14:05; Status DC Albumin Human 250 ml @ 100 mls/hr 1X ONCE IV Last administered on 08/13/16 23:38; Start 08/13/16 at 18:00; Stop 08/13/16 at 20:29; Status DC Albumin Human 500 ml @ 100 mls/hr 1X ONCE IV Last administered on 08/13/16 18:15; Start 08/13/16 at 18:00; Stop 08/13/16 at 22:59; Status DC Potassium Chloride 50 ml @ 50 mls/hr Q1H IV Last administered on 08/14/16 10: 46; Start 08/14/16 at 08:00; Stop 08/14/16 at 09:59; Status DC Nafcillin Sodium 2 gm/Sodium Chloride 100 ml @ 200 mls/hr Q4HRS IV Last administered on 08/23/16 08:51; Start 08/14/16 at 08:00; Stop 08/23/16 at 10:44; Status DC Enoxaparin Sodium (Lovenox 40mg Syringe) 40 mg Q24H SQ Last administered on 08/25 12:44; Start 08/14/16 at 12:00; Stop 08/26/16 at 11:53; Status DC Potassium Chloride (KCl Oral Soln) 40 meq 1X ONCE PEG Last administered on 07:54; Start 08/16/16 at 07:00; Stop 08/16/16 at 07:01; Status DC Potassium Chloride (KCl Oral Soln) 40 meq 1X ONCE PEG Last administered on 14:01; Start 08/16/16 at 12:00; Stop 08/16/16 at 12:01; Status DC Magnesium Sulfate/ Dextrose 50 ml @ 25 mls/hr 1X ONCE IV Last administered on 08/16/16 17:14; Start 08/16/16 at 16:30; Stop 08/16/16 at 18:29; Status DC Potassium Chloride (Klor-Con) 40 meq 1X ONCE PO ; Start 08/17/16 at 13:30; Stop 08/17/16 at 13:31; Status Cancel Potassium Chloride (KCl Oral Soln) 40 meq 1X ONCE PO Last administered on 08/17 15:34; Start 08/17/16 at 13:30; Stop 08/17/16 at 14:27; Status DC Potassium Chloride 100 ml @ 100 mls/hr PRN Q1HR PRN IV HYPOKALEMIA PER ICU PROTOCOL; Start 08/17/16 at 13:30; Status Cancel Potassium Chloride 50 ml @ 25 mls/hr PRN Q2HR PRN IV HYPOKALEMIA PER ICU PROTOCOL Last administered on 08/21/16 13:29; Start 08/17/16 at 13:30; Stop 08/21 at 13:34; Status DC Potassium Chloride (Klor-Con) 40 meq PRN Q2HR PRN PO HYPOKALEMIA PER ICU PROTOCOL Last administered on 09/04/16 08:04; Start 08/17/16 at 13:30; Stop at 08:32; Status DC Potassium Chloride 100 ml @ 100 mls/hr PRN Q1HR PRN IV HYPOKALEMIA PER ICU PROTOCOL; Start 08/17/16 at 13:30; Stop 09/04/16 at 15:41; Status DC Potassium Chloride 50 ml @ 25 mls/hr PRN Q2HR PRN IV HYPOKALEMIA PER ICU PROTOCOL; Start 08/17/16 at 13:30; Stop 09/04/16 at 15:41; Status DC Potassium Chloride (Klor-Con) 40 meq PRN Q2HR PRN PO HYPOKALEMIA PER ICU PROTOCOL; Start 08/17/16 at 13:30; Stop 09/04/16 at 08:33; Status DC Potassium Chloride 100 ml @ 100 mls/hr PRN Q1HR PRN IV HYPOKALEMIA PER ICU PROTOCOL; Start 08/17/16 at 13:30; Status Cancel Potassium Chloride 50 ml @ 25 mls/hr PRN Q2HR PRN IV HYPOKALEMIA PER ICU PROTOCOL Last administered on 08/27/16 14:37; Start 08/17/16 at 14:00; Stop at 15:41; Status DC Magnesium Sulfate/ Dextrose 100 ml @ 50 mls/hr PRN DAILY PRN IV HYPOMAGNESIA PER ICU PROTOCOL Last administered on 08/20/16 22:26; Start 08/18/16 at 09:00; Stop 09/04/16 at 15:41; Status DC Potassium Phos/ Sodium Phos (Phos-Nak) 1 pkt BID PO ; Start 08/17/16 at 21:00; Stop 08/18/16 at 09:01; Status DC Sodium Phosphate 40 mmol/Dextrose 263.3333 ml @ 62.5 mls/hr PRN 1X PRN IV HYPOPHOSP PER ICU PROTOCOL; Start 08/17/16 at 13:30; Status Cancel Potassium Chloride (KCl Oral Soln) 40 meq 1X ONCE PEG Last administered on 08/19 07:57; Start 08/19/16 at 07:45; Stop 08/19/16 at 07:46; Status DC Potassium Chloride (KCl Oral Soln) 40 meq 1X ONCE PEG Last administered on 08/19 11:36; Start 08/19/16 at 12:00; Stop 08/19/16 at 12:01; Status DC Alprazolam (Xanax) 0.5 mg 1X ONCE PO Last administered on 08/19/16 11:35; Start 08/19/16 at 11:15; Stop 08/19/16 at 11:16; Status DC Alprazolam (Xanax) 0.5 mg TID PEG Last administered on 08/23/16 20:34; Start at 15:00; Stop 08/24/16 at 08:11; Status DC Potassium Chloride 50 ml @ 50 mls/hr Q1H IV Last administered on 08/22/16 09:40 ; Start 08/22/16 at 08:30; Stop 08/22/16 at 10:29; Status DC Haloperidol Lactate (Haldol) 5 mg PRN Q6HRS PRN IVP AGITATION Last administered on 08/31/16 02:14; Start 08/22/16 at 09:15; Stop 09/03/16 at 10:57 ; Status DC Haloperidol Lactate (Haldol) 2 mg 1X ONCE IVP ; Start 08/22/16 at 09:15; Stop at 09:27; Status DC Magnesium Sulfate/ Dextrose 100 ml @ 50 mls/hr DAILY IV Last administered on 10:00; Start 08/23/16 at 09:00; Stop 08/26/16 at 08:59; Status DC Albumin Human 100 ml @ 100 mls/hr [id number] IV Last administered on 08/23/16 17:25 ; Start 08/23/16 at 09:00; Stop 08/23/16 at 16:59; Status DC Furosemide (Lasix) 40 mg [id number] IVP Last administered on 08/23/16 17:26; Start 08/23/16 at 09:00; Stop 08/23/16 at 16:01; Status DC Vitamin A/Vitamin D (Vitamin A & D Ointment) 1 james PRN Q1HR PRN TP SKIN PROTECTION Last administered on 08/31/16 17:52; Start 08/23/16 at 08:45 Cefepime HCl 1 gm/ Sodium Chloride 50 ml @ 100 mls/hr Q8HRS IV Last administered on 09/04/16 05:35; Start 08/23/16 at 14:00; Stop 09/04/16 at 07:57 ; Status DC Ondansetron HCl (Zofran) 4 mg PRN Q6HRS PRN IV NAUSEA/VOMITING Last administered on 08/23/16 19:27; Start 08/23/16 at 19:15 Alprazolam (Xanax) 0.25 mg TID PEG ; Start 08/24/16 at 09:00; Stop 08/24/16 at 09: 28; Status DC Diphenhydramine HCl (Benadryl) 25 mg HS PO ; Start 08/24/16 at 21:00; Stop at 21:00; Status DC Zolpidem Tartrate (Ambien) 5 mg PRN QHS PRN PO INSOMNIA Last administered on 21:06; Start 08/24/16 at 08:15 Alprazolam (Xanax) 0.5 mg TID PEG Last administered on 09/03/16 07:40; Start 08/24/16 at 09:00; Stop 09/03/16 at 10:57; Status DC Diphenhydramine HCl (Benadryl) 25 mg PRN QHS PRN PO sleep Last administered on 09/06/16 02:10; Start 08/24/16 at 21:00 Quetiapine Fumarate (SEROquel) 50 mg HS PO Last administered on 09/02/16 20:38 ; Start 08/24/16 at 21:00; Stop 09/03/16 at 20:55; Status DC Potassium Chloride 50 ml @ 50 mls/hr Q1H IV Last administered on 08/25/16 09:45 ; Start 08/25/16 at 08:00; Stop 08/25/16 at 09:59; Status DC Iohexol (Omnipaque 300 Mg/ml) 75 ml 1X ONCE IV Last administered on 08/25/16 15:45; Start 08/25/16 at 15:45; Stop 08/25/16 at 15:46; Status DC Iohexol (Omnipaque 240 Mg/ml) 50 ml 1X ONCE PO Last administered on 08/25/16 15:45; Start 08/25/16 at 15:45; Stop 08/25/16 at 15:46; Status DC Info (Do NOT chart on this entry -- for MONITORING) 1 each PRN DAILY PRN MC SEE COMMENTS; Start 08/25/16 at 16:00; Stop 08/27/16 at 15:59; Status DC Chlorhexidine Gluconate (Peridex) 15 ml BID SWSP Last administered on 08:17; Start 08/26/16 at 09:00; Stop 09/04/16 at 15:41; Status DC Potassium Chloride 50 ml @ 50 mls/hr Q1H IV ; Start 08/26/16 at 11:30; Stop at 11:30; Status DC Acetaminophen (Tylenol) 650 mg PRN Q6HRS PRN PEG MILD PAIN / TEMP Last administered on 09/03/16 07:40; Start 08/26/16 at 12:00; Stop 09/05/16 at 02:26 ; Status DC Lidocaine/Sodium Bicarbonate (Buffered Lidocaine 1%) 20 ml STK-MED ONCE IJ ; Start 08/26/16 at 14:50; Stop 08/26/16 at 14:51; Status DC Lidocaine/Sodium Bicarbonate (Buffered Lidocaine 1%) 20 ml 1X ONCE IJ Last administered on 08/26/16 15:42; Start 08/26/16 at 15:45; Stop 08/26/16 at 15:46; Status DC Lansoprazole (Prevacid) 30 mg BIDBFRMEAL FT Last administered on 09/06/16 08: 13; Start 08/27/16 at 17:30 Potassium Chloride 50 ml @ 50 mls/hr Q1H IV Last administered on 08/27/16 13:23 ; Start 08/27/16 at 13:00; Stop 08/27/16 at 14:59; Status DC Alteplase, Recombinant 5 mg/ Sterile Water 50 ml @ 0 mls/hr 1X ONCE INT CAT Last administered on 08/28/16 15:03; Start 08/28/16 at 10:45; Stop 08/28/16 at 10:46; Status DC Ferrous Sulfate 300 mg DAILY FT Last administered on 09/06/16 08:12; Start 03/07 at 09:00 Alteplase, Recombinant 5 mg/ Sterile Water 50 ml @ 0 mls/hr 1X ONCE INT CAT Last administered on 08/29/16 11:00; Start 08/29/16 at 11:00; Stop 08/29/16 at 11:01; Status DC Oxycodone/ Acetaminophen (Percocet 5/325) 1 tab PRN BID PRN PO PAIN Last administered on 09/02/16 10:36; Start 08/29/16 at 11:45; Stop 09/02/16 at 10:45 ; Status DC Metronidazole (Flagyl) 500 mg Q12HR PEG Last administered on 09/04/16 21:26; Start 08/30/16 at 09:00; Stop 09/05/16 at 02:26; Status DC Oxycodone HCl (Roxicodone) 10 mg Q4HRS PRN PO PAIN Last administered on 06:32; Start 08/30/16 at 15:15; Stop 09/02/16 at 10:45; Status DC Cholestyramine Resin (Questran Light) 4 gm QIDPMEDS PO Last administered on 18:18; Start 08/31/16 at 10:00; Stop 09/06/16 at 07:25; Status DC Diphenhydramine HCl (Benadryl) 25 mg PRN QHS PRN PO INSOMNIA; Start 08/31/16 at 10:30; Stop 09/03/16 at 10:57; Status DC Oxycodone HCl (Roxicodone) 5 mg Q4HRS PRN PO PAIN Last administered on 08:05; Start 09/02/16 at 10:45; Stop 09/04/16 at 15:42; Status DC Oxycodone HCl (Roxicodone) 10 mg Q4HRS PRN PO PAIN Last administered on 17:52; Start 09/02/16 at 11:00; Stop 09/04/16 at 15:42; Status DC Lactobacillus Acidophilus (Bacid, Jesi-Bid) 1 tab TIDWMEALS PO Last administered on 09/06/16 13:12; Start 09/03/16 at 08:00 Cholestyramine Resin (Questran Light) 4 gm BID@1000,2100 PEG ; Start 09/03/16 at 10:00; Stop 09/03/16 at 10:57; Status DC Alprazolam (Xanax) 0.5 mg QID PEG Last administered on 09/04/16 21:26; Start 09/03/16 at 13:00; Stop 09/05/16 at 02:26; Status DC Sertraline HCl (Zoloft) 25 mg QHS PO Last administered on 09/05/16 20:51; Start 09/03/16 at 21:00 Ibuprofen (Motrin) 600 mg Q8H PO Last administered on 09/06/16 02:10; Start at 11:15 Quetiapine Fumarate (SEROquel) 50 mg DAILY PO Last administered on 09/06/16 08 :14; Start 09/04/16 at 09:00 Cefazolin Sodium 2 gm/Sodium Chloride 50 ml @ 100 mls/hr Q8HRS IV Last administered on 09/06/16 13:12; Start 09/04/16 at 08:00 Potassium Chloride (KCl Oral Soln) 40 meq PRN Q2HR PRN PO HYPOKALEMIA PER ICU PROTOCOL; Start 09/04/16 at 08:45 Potassium Chloride (KCl Oral Soln) 40 meq PRN Q2HR PRN PO HYPOKALEMIA PER ICU PROTOCOL; Start 09/04/16 at 08:45 Barium Sulfate (Varibar Thin Liquid Apple) 148 gm 1X ONCE PO Last administered on 09/04/16 11:20; Start 09/04/16 at 11:15; Stop 09/04/16 at 11:16 ; Status DC Oxycodone HCl (Roxicodone) 10 mg Q5H PRN PO PAIN Last administered on 08:13; Start 09/04/16 at 17:00 Oxycodone HCl (Roxicodone) 5 mg Q5H PRN PO PAIN Last administered on 09/05/16 16:40; Start 09/04/16 at 17:00 Acetaminophen (Tylenol) 650 mg PRN Q6HRS PRN PO MILD PAIN / TEMP; Start at 02:30 Alprazolam (Xanax) 0.5 mg QID PO Last administered on 09/06/16 13:12; Start at 09:00 Metronidazole (Flagyl) 500 mg Q12HR PO Last administered on 09/05/16 20:51; Start 09/05/16 at 09:00; Stop 09/06/16 at 07:25; Status DC Active Scripts Active Reported No Known Medications Prior To Admisstion (Info) Each 1 Each Vitals/I & O Vital Sign - Last 24 Hours 09/05/16 09/05/16 09/05/16 09/05/16 14:02 14:41 15:00 16:40 Temp 98.5 98.5 Pulse 103 Resp 16 B/P (MAP) 117/78 (91) Pulse Ox 99 99 99 O2 Delivery Room Air Room Air Room Air Room Air O2 Flow Rate 33.0 33.0 09/05/16 09/05/16 09/05/16 09/06/16 20:05 20:08 23:30 02:26 Temp 98.6 97.7 98.6 97.7 Pulse 95 96 B/P (MAP) 125/74 (91) 125/79 (94) Pulse Ox 99 96 97 O2 Delivery Room Air AP NEB T-Tube Room Air O2 Flow Rate 33.0 8.0 09/06/16 09/06/16 09/06/16 09/06/16 08:00 08:00 08:06 08:10 Temp 98.1 98.1 Pulse 98 Resp 18 B/P (MAP) 117/76 (90) Pulse Ox 95 99 99 O2 Delivery Tracheal Collar Trach Collar AP NEB AP NEB O2 Flow Rate 8.0 8.0 8.0 8.0 09/06/16 09/06/16 09/06/16 09/06/16 08:13 09:01 11:03 11:57 Pulse 94 Resp 18 B/P (MAP) 99/58 (72) Pulse Ox 95 100 99 O2 Delivery Tracheal Collar Tracheal Collar Tracheal Collar AP NEB O2 Flow Rate 8.0 8.0 8.0 8.0 Intake and Output 09/05/16 09/05/16 09/06/16 15:00 23:00 07:00 Intake Total 80 ml 440 ml Output Total 350 ml Balance 80 ml -350 ml 440 ml Nutrition Consultation Dietary Evaluation: Recommendations by RD: Increase Calorie Intake, Protein supplementation Comments: -Pt refuses to drink the boost plus protein shakes. Tried the boost breeze protein shakes and agrees. 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
[2016-09-06] MEDS: ZOLPIDEM 5 MG TABLET. PO PRN (21:47)
[2016-09-06] MEDS: SERTRALINE 25 MG TABLET. PO SCH (21:47)
[2016-09-07] VITALS (7 sets, daily range): BP systolic 120–137; BP diastolic 73–92
[2016-09-07] MEDS: oxyCODONE IR 5 MG TABLET PO PRN ×5 (00:14→21:43)
[2016-09-07] MEDS: IBUPROFEN 600 MG TABLET. PO SCH ×3 (03:15→19:15)
[2016-09-07] MEDS: BUDESONIDE 0.5 MG/2 ML NEBU. NEB SCH ×2 (08:24→19:53)
[2016-09-07] MEDS: IPRATRPIUM/ALBUTEROL 0.5/2.5MG 3 ML NEBU. NEB SCH ×4 (08:24→19:53)
[2016-09-07] MEDS: ALPRAZolam 0.5 MG TABLET PO SCH ×4 (08:25→21:42)
[2016-09-07] MEDS: QUEtiapine 25 MG TABLET. PO SCH (08:25)
[2016-09-07] MEDS: LANSOPRAZOLE 30 MG TAB.RAP.DR FT SCH ×2 (08:25→17:08)
[2016-09-07] MEDS: LACTOBACILLUS ACIDOPH & BULGAR 1 TABLET. PO SCH ×3 (08:25→17:08)
[2016-09-07] MEDS: FERROUS SULFATE ORAL 300 MG/5 ML SOLUTION. FT SCH (08:25)
[2016-09-07] MEDS: NYSTATIN TOPICAL POWDER 15GM BOTTLE. TP SCH ×2 (08:26→21:42)
--- NOTE | 2016-09-07 10:34 | PDOC ---
PULMONARY PROGRESS NOTES Subjective tolerates PM valve well s/p bilateral chest tubes, with removal s/p intra pleural TPA left side 08/27, 08/28, 08/29 Vitals Vital Signs Date Time Temp Pulse Resp B/P (MAP) Pulse Ox O2 Delivery O2 Flow Rate FiO2 09/07/16 08:25 100 AP NEB 8.0 09/07/16 07:00 98.0 99 24 128/90 (103) 98.0 Comments ros as mentioned as above other sys otherwise neg ROS: No Chest Pain, No Abdominal Pain General: Alert, No acute distress HEENT: Other (nc at perrl. poor dentition, nose clear) Lungs: Other (decrease bs) Cardiovascular: S1, S2, Other Abdomen: Soft, Non-tender, Other (no mass) Neuro Exam: Alert, Oriented Extremities: Other (edema) Skin: Warm Labs Laboratory Tests Test 09/06/16 04:15 White Blood Count 9.4 x10^3/uL (4.0-11.0) Red Blood Count 3.32 x10^6/uL (3.50-5.40) Hemoglobin 9.7 g/dL (12.0-15.5) Hematocrit 30.0 % (36.0-47.0) Mean Corpuscular Volume 90 fL (79-100) Mean Corpuscular Hemoglobin 29 pg (25-35) Mean Corpuscular Hemoglobin Concent 33 g/dL (31-37) Red Cell Distribution Width 17.6 % (11.5-14.5) Platelet Count 282 x10^3/uL (140-400) Neutrophils (%) (Auto) 68 % (31-73) Lymphocytes (%) (Auto) 21 % (24-48) Monocytes (%) (Auto) 8 % (0-9) Eosinophils (%) (Auto) 3 % (0-3) Basophils (%) (Auto) 1 % (0-3) Neutrophils # (Auto) 6.4 x10^3uL (1.8-7.7) Lymphocytes # (Auto) 2.0 x10^3/uL (1.0-4.8) Monocytes # (Auto) 0.7 x10^3/uL (0.0-1.1) Eosinophils # (Auto) 0.3 x10^3/uL (0.0-0.7) Basophils # (Auto) 0.1 x10^3/uL (0.0-0.2) Medications Active Scripts Medications Dose Route/Sig Days Date Category No Known Medications Prior To Admisstion (Info) Each 1 Each 08/06/16 Reported Comments cxr reviewed, 09/02 interval improvement in right-sided parenchymal opacities / volume loss Left base Impression . 1. Acute hypoxemic respiratory failure, multifactorial in etiology 2. bilateral loculated effusions, suspected empyema, s/p bilateral chest tubes , VERY LOW GLUCOSE(9), LOW PH , s/p TPA and removal of chest tubes 3. Bilateral pulmonary nodules with cavitation, due to septic emboli. 4. Endocarditis. right sided, improving vegetations 5. Anemia, 6. Intravenous drug abuse. 7. MSSA septicemia/pneumonia/ CHF Plan . T-shield 24 hrs/pm valve s/p removal of bilateral chest tube s/p intra pleural TPA left side Overall left empyema has sig. improved ,only small LL pockets. Trach secretions for c/s, E-coli, on antibiotic per ID, bronchodilators off lovenox, due to on/off anemia oral nutrition downsize trach #6 next week CARLEY WORKMAN MD September 07, 2016 10:34
--- NOTE | 2016-09-07 15:24 | PDOC ---
PROGRESS NOTES Chief Complaint Chief Complaint Sepsis Acute hypoxic respir failure ASSESSMENT AND PLAN: 1. Sepsis: resolved 2. 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 MSSA. on cefepime (to cover E.coli as well). Abx rx until 09/19 3. PNA: septic emboli w/cavitary lesions. sputum with heavy growth E.coli. 4. 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 rpt CT chest on 08/31 with improvement. Flagyl added as per Dr Will 5. Acute respir failure: traced, PM valve, downsizing trach 6. Diarrhea: C.diff neg. prob due to TF - changed. probiotics 7. Anemia: severe, recurrent: multifactorial, incl severe inflammation, HCV toxicity. inflammation confirmed by iron studies. b12/folate WNL. on daily low dose Fe 8. Thrombocytopenia: 2/2 infection, now resolved. monitor 9. ELMIRA: resolved 10. Hep C: new dx during current admit. F/U on O/P basis for rx 11. Polysubstance abuse: wean narcotics: oxy5 q4 -> q5 PRN. add adjunct NSAIDs, heat. 12. Depression: increase xanax to qid PRN. start Zoloft 13. Malnutrition: severe, POA, weight loss prior to admit, albumin critically low. suspect large component of inflammation as well. wean peg feeds, until full PO established History of Present Illness History of Present Illness abd discomfort, no pain. in good spirits Vitals Vitals Vital Signs Date Time Temp Pulse Resp B/P (MAP) Pulse Ox O2 Delivery O2 Flow Rate FiO2 09/07/16 12:57 98 8.0 09/07/16 12:24 AP NEB 09/07/16 11:00 97 20 133/89 (104) 09/07/16 07:00 98.0 98.0 Physical Exam General: Alert, Cooperative, No acute distress Heart: Normal S1, Normal S2, No murmurs Lungs: Other (decrease bs) Abdomen: Normal bowel sounds, Other (Hepatosplenomegaly present) Extremities: No cyanosis, Other (1+ edema) Skin: No breakdown, No significant lesion Comment Review of Relevant I have reviewed the following items shanta (where applicable) has been applied. Labs Laboratory Tests Test 09/06/16 04:15 White Blood Count 9.4 x10^3/uL (4.0-11.0) Red Blood Count 3.32 x10^6/uL (3.50-5.40) Hemoglobin 9.7 g/dL (12.0-15.5) Hematocrit 30.0 % (36.0-47.0) Mean Corpuscular Volume 90 fL (79-100) Mean Corpuscular Hemoglobin 29 pg (25-35) Mean Corpuscular Hemoglobin Concent 33 g/dL (31-37) Red Cell Distribution Width 17.6 % (11.5-14.5) Platelet Count 282 x10^3/uL (140-400) Neutrophils (%) (Auto) 68 % (31-73) Lymphocytes (%) (Auto) 21 % (24-48) Monocytes (%) (Auto) 8 % (0-9) Eosinophils (%) (Auto) 3 % (0-3) Basophils (%) (Auto) 1 % (0-3) Neutrophils # (Auto) 6.4 x10^3uL (1.8-7.7) Lymphocytes # (Auto) 2.0 x10^3/uL (1.0-4.8) Monocytes # (Auto) 0.7 x10^3/uL (0.0-1.1) Eosinophils # (Auto) 0.3 x10^3/uL (0.0-0.7) Basophils # (Auto) 0.1 x10^3/uL (0.0-0.2) Microbiology 08/12/16 Blood Fungal Culture - Preliminary, Resulted 08/12/16 Fungal Culture Result 1 - Preliminary, Resulted 08/26/16 Gram Stain - Final, Complete 08/22/16 Gram Stain - Final, Complete 08/31/16 Urine Culture - Final, Complete 08/31/16 Urine Culture Result 1 (JAMEY) - Final, Complete Medications Current Medications Amino Acids/ Glycerin/ Electrolytes 1,000 ml @ 100 mls/hr Q10H IV Last administered on 08/05/16 02:40; Start 08/02/16 at 03:00; Stop 08/05/16 at 08:50 ; Status DC Morphine Sulfate 2 mg PRN Q2HR PRN IV SEVERE PAIN Last administered on 11:59; Start 08/02/16 at 02:30; Stop 08/02/16 at 13:28; Status DC Daptomycin 220 mg/ Sodium Chloride 50 ml @ 100 mls/hr Q24H IV ; Start 08/02/16 at 09:15; Stop 08/02/16 at 15:58; Status DC Cefepime HCl 1 gm/ Sodium Chloride 50 ml @ 100 mls/hr Q12HR IV Last administered on 08/04/16 08:10; Start 08/02/16 at 10:00; Stop 08/04/16 at 10:33 ; Status DC Daptomycin 220 mg/ Sodium Chloride 50 ml @ 100 mls/hr ONCE ONCE IV ; Start at 10:00; Stop 08/02/16 at 10:29; Status Cancel Potassium Chloride (Klor-Con) 40 meq 1X ONCE PO Last administered on 10:17; Start 08/02/16 at 09:45; Stop 08/02/16 at 09:46; Status DC Daptomycin 220 mg/ Sodium Chloride 50 ml @ 100 mls/hr Q24H IV Last administered on 08/03/16 09:43; Start 08/02/16 at 10:15; Stop 08/03/16 at 10:29 ; Status DC Potassium Chloride (Klor-Con) 40 meq 1X ONCE PO Last administered on 12:57; Start 08/02/16 at 12:30; Stop 08/02/16 at 12:36; Status DC Morphine Sulfate 5 mg PRN Q2HRS PRN IV MODERATE TO SEVERE PAIN Last administered on 08/26/16 16:15; Start 08/02/16 at 13:30; Stop 08/26/16 at 17:31; Status DC Morphine Sulfate 8 mg PRN Q2HRS PRN IV MODERATE TO SEVERE PAIN Last administered on 08/04/16 14:58; Start 08/02/16 at 13:30; Stop 08/26/16 at 17:31 ; Status DC Acetaminophen (Tylenol) 650 mg PRN Q6HRS PRN PO TEMP GREATER THAN 100.4 Last administered on 08/26/16 00:24; Start 08/02/16 at 14:45; Stop 08/26/16 at 17:31; Status DC Lactated Ringer's 1,000 ml @ 50 mls/hr Q20H IV ; Start 08/05/16 at 07:00; Stop 08/05/16 at 18:13; Status DC Daptomycin 220 mg/ Sodium Chloride 50 ml @ 100 mls/hr Q24H IV ; Start 08/03/16 at 11:00; Status Cancel Potassium Chloride (Klor-Con) 40 meq 1X ONCE PO Last administered on 17:41; Start 08/02/16 at 17:15; Stop 08/02/16 at 17:18; Status DC Potassium Chloride (Klor-Con) 40 meq BIDWMEALS PO ; Start 08/03/16 at 08:00; Stop 08/03/16 at 11:08; Status DC Morphine Sulfate 5 mg 1X ONCE IV Last administered on 08/02/16 21:45; Start 08/02/16 at 21:30; Stop 08/02/16 at 21:33; Status DC Lorazepam (Ativan) 1 mg 1X ONCE IV Last administered on 08/02/16 21:30; Start 08/02/16 at 21:30; Stop 08/02/16 at 21:33; Status DC Acetaminophen (Acetaminophen Supp) 650 mg PRN Q6HRS PRN MO MILD PAIN / TEMP Last administered on 08/13/16 03:13; Start 08/03/16 at 01:15; Stop 08/26/16 at 17:31; Status DC Albuterol/ Ipratropium (Duoneb) 3 ml RTQID NEB Last administered on 09/07/16 12:24; Start 08/03/16 at 08:00 Budesonide (Pulmicort) 0.5 mg RTBID NEB Last administered on 09/07/16 08:24; Start 08/03/16 at 08:00 Pantoprazole Sodium (Protonix Vial) 40 mg 1X ONCE IVP Last administered on 10:06; Start 08/03/16 at 08:00; Stop 08/03/16 at 08:01; Status DC Daptomycin 320 mg/ Sodium Chloride 50 ml @ 100 mls/hr Q24H IV Last administered on 08/04/16 10:03; Start 08/04/16 at 10:00; Stop 08/04/16 at 10:33 ; Status DC Lorazepam (Ativan) 0.5 mg PRN Q6HRS PRN IV ANXIETY / AGITATION Last administered on 08/04/16 09:12; Start 08/03/16 at 11:15; Stop 08/07/16 at 11:02 ; Status DC Lorazepam (Ativan) 0.5 mg 1X ONCE IV Last administered on 08/04/16 10:00; Start 08/04/16 at 10:00; Stop 08/04/16 at 10:01; Status DC Morphine Sulfate 5 mg 1X ONCE IV Last administered on 08/04/16 10:00; Start 08/04/16 at 10:00; Stop 08/04/16 at 10:01; Status DC Lorazepam (Ativan) 0.5 mg PRN Q4HRS PRN IV ANXIETY / AGITATION Last administered on 08/25/16 02:29; Start 08/04/16 at 10:00; Stop 08/26/16 at 17:31; Status DC Nafcillin Sodium 2 gm/Sodium Chloride 100 ml @ 200 mls/hr Q4HRS IV Last administered on 08/09/16 10:10; Start 08/04/16 at 12:00; Stop 08/09/16 at 11:49 ; Status DC Propofol 100 ml @ As Directed STK-MED ONCE IV ; Start 08/04/16 at 16:10; Stop 08/04/16 at 16:11; Status DC Succinylcholine Chloride (Anectine) 200 mg STK-MED ONCE .ROUTE ; Start 08/04/16 at 16:14; Stop 08/04/16 at 16:15; Status DC Succinylcholine Chloride (Anectine) 200 mg 1X ONCE IV ; Start 08/04/16 at 16:45 ; Stop 08/04/16 at 16:46; Status DC Propofol 100 ml @ 0 mls/hr CONT PRN IV SEE I/O RECORD Last administered on 08/17 10:18; Start 08/04/16 at 16:45; Stop 08/26/16 at 17:31; Status DC Lorazepam (Ativan) 0.5 mg 1X ONCE IV Last administered on 08/04/16 16:45; Start 08/04/16 at 16:45; Stop 08/04/16 at 16:46; Status DC Morphine Sulfate 5 mg 1X ONCE IV Last administered on 08/04/16 16:44; Start 08/04/16 at 16:45; Stop 08/04/16 at 16:46; Status DC Fentanyl Citrate 30 ml @ 0 mls/hr CONT PRN IV PROTOCOL Last administered on 07:32; Start 08/04/16 at 16:45; Stop 09/02/16 at 10:45; Status DC Chlorhexidine Gluconate (Peridex) 15 ml BID MM Last administered on 08/17/16 10:18; Start 08/04/16 at 21:00; Stop 08/17/16 at 19:36; Status DC Famotidine (Pepcid) 20 mg BID IVP Last administered on 08/26/16 08:43; Start at 17:00; Stop 08/26/16 at 17:31; Status DC Sodium Chloride 1,000 ml @ 100 mls/hr Q10H IV Last administered on 08/07/16 04:35; Start 08/05/16 at 09:00; Stop 08/07/16 at 08:59; Status DC Succinylcholine Chloride (Anectine) 200 mg STK-MED ONCE .ROUTE ; Start 08/04/16 at 16:00; Stop 08/05/16 at 12:32; Status DC Lorazepam (Ativan) 2 mg 1X ONCE IV Last administered on 08/05/16 20:43; Start 08/05/16 at 21:00; Stop 08/05/16 at 21:01; Status DC Furosemide (Lasix) 40 mg 1X PRN PRN IV blood transfusion Last administered on 14:17; Start 08/06/16 at 08:00; Stop 08/07/16 at 07:59; Status DC Sodium Bicarbonate 50 meq 1X ONCE IV Last administered on 08/06/16 14:06; Start 08/06/16 at 12:00; Stop 08/06/16 at 12:01; Status DC Calcium Chloride 1,000 mg STK-MED ONCE IV ; Start 08/04/16 at 12:00; Stop at 15:13; Status DC Epinephrine HCl (Epinephrine Syringe) 2 mg STK-MED ONCE .ROUTE ; Start 08/04/16 at 12:00; Stop 08/06/16 at 15:13; Status DC Sodium Bicarbonate 100 meq STK-MED ONCE .ROUTE ; Start 08/04/16 at 12:00; Stop 08/06/16 at 15:13; Status DC Amino Acids/ Glycerin/ Electrolytes 1,000 ml @ 100 mls/hr Q10H IV Last administered on 08/08/16 12:33; Start 08/07/16 at 10:00; Stop 08/09/16 at 09:42 ; Status DC Enoxaparin Sodium (Lovenox 40mg Syringe) 40 mg Q24H SQ Last administered on 13:10; Start 08/07/16 at 13:00; Stop 08/10/16 at 10:43; Status DC Vecuronium [place] (Norcuron Bolus) 10 mg STK-MED ONCE IV ; Start 08/07/16 at 13 :56; Stop 08/07/16 at 13:57; Status DC Vecuronium [place] (Norcuron Bolus) 6 mg 1X ONCE IV Last administered on 14:06; Start 08/07/16 at 14:00; Stop 08/07/16 at 14:05; Status DC Sodium Bicarbonate 50 meq 1X ONCE IV Last administered on 08/08/16 11:46; Start 08/08/16 at 11:45; Stop 08/08/16 at 11:46; Status DC Nystatin (Nystop) 1 james BID TP Last administered on 09/07/16 08:26; Start at 21:00 Linezolid 300 ml @ 300 mls/hr Q12HR IV Last administered on 08/14/16 20:51; Start 08/09/16 at 09:00; Stop 08/15/16 at 07:21; Status DC Sodium Chloride 1,000 ml @ 20 mls/hr Q24H IV Last administered on 08/26/16 06: 41; Start 08/09/16 at 09:45; Stop 08/27/16 at 13:51; Status DC Sodium Bicarbonate 150 meq/Dextrose 1,150 ml @ 100 mls/hr 1X ONCE IV Last administered on 08/09/16 12:25; Start 08/09/16 at 11:30; Stop 08/09/16 at 22:59 ; Status DC Piperacillin Sod/ Tazobactam Sod (Zosyn Per Pharmacy) 1 each PRN DAILY PRN MC SEE COMMENTS; Start 08/09/16 at 12:00; Stop 08/14/16 at 07:40; Status DC Piperacillin Sod/ Tazobactam Sod 4.5 gm/Sodium Chloride 100 ml @ 200 mls/hr Q6HRS IV Last administered on 08/14/16 05:58; Start 08/09/16 at 12:30; Stop at 07:33; Status DC Vecuronium [place] (Norcuron Bolus) 5 mg PRN Q4HRS PRN IV INCREASED RESPIRATORY ,NOT RELI Last administered on 08/11/16 02:56; Start 08/09/16 at 13:30; Stop at 17:31; Status DC Potassium Chloride 50 ml @ 100 mls/hr Q1H IV ; Start 08/10/16 at 09:30; Stop at 10:59; Status Cancel Potassium Chloride 100 ml @ 100 mls/hr Q1H IV Last administered on 08/10/16 16:28; Start 08/10/16 at 10:30; Stop 08/10/16 at 14:29; Status DC Potassium Chloride (KCl Oral Soln) 60 meq 1X ONCE PEG Last administered on 11:16; Start 08/10/16 at 11:00; Stop 08/10/16 at 11:01; Status DC Sodium Bicarbonate 150 meq/Dextrose 1,150 ml @ 100 mls/hr [id number] IV Last administered on 08/10/16 11:14; Start 08/10/16 at 11:00; Stop 08/10/16 at 22:29 ; Status DC Enoxaparin Sodium (Lovenox 40mg Syringe) 40 mg Q24H SQ ; Start 08/10/16 at 13:00 ; Stop 08/10/16 at 13:00; Status DC Micafungin Sodium 100 mg/Dextrose 100 ml @ 100 mls/hr Q24H IV Last administered on 08/13/16 16:26; Start 08/11/16 at 16:00; Stop 08/14/16 at 07:33 ; Status DC Furosemide (Lasix) 40 mg 1X ONCE IVP Last administered on 08/12/16 08:38; Start 08/12/16 at 08:00; Stop 08/12/16 at 08:06; Status DC Morphine Sulfate 1 mg PRN Q10MIN PRN IV SEVERE PAIN; Start 08/13/16 at 07:00; Stop 08/14/16 at 06:59; Status DC Lactated Ringer's 1,000 ml @ 0 mls/hr Q0M IV ; Start 08/13/16 at 07:00; Stop at 18:59; Status DC Lidocaine HCl 2 ml PRN 1X PRN ID PRIOR TO IV START; Start 08/13/16 at 07:00; Stop 08/14/16 at 06:59; Status DC Hydromorphone HCl (Dilaudid) 0.5 mg PRN Q10MIN PRN IV SEV PAIN, Second choice; Start 08/13/16 at 07:00; Stop 08/14/16 at 06:59; Status DC Prochlorperazine Edisylate (Compazine) 5 mg PACU PRN PRN IV NAUSEA, MRX1; Start 08/13/16 at 07:00; Stop 08/14/16 at 06:59; Status DC Morphine Sulfate 1 mg PRN Q10MIN PRN IV SEVERE PAIN; Start 08/13/16 at 07:00; Stop 08/14/16 at 06:59; Status DC Lactated Ringer's 1,000 ml @ 0 mls/hr Q0M IV ; Start 08/13/16 at 07:00; Stop at 18:59; Status DC Lidocaine HCl 2 ml PRN 1X PRN ID PRIOR TO IV START; Start 08/13/16 at 07:00; Stop 08/14/16 at 06:59; Status DC Hydromorphone HCl (Dilaudid) 0.5 mg PRN Q10MIN PRN IV SEV PAIN, Second choice; Start 08/13/16 at 07:00; Stop 08/14/16 at 06:59; Status DC Prochlorperazine Edisylate (Compazine) 5 mg PACU PRN PRN IV NAUSEA, MRX1; Start 08/13/16 at 07:00; Stop 08/14/16 at 06:59; Status DC Potassium Chloride 50 ml @ 50 mls/hr Q1H IV Last administered on 08/13/16t 07: 57; Start 08/13/16 at 07:00; Stop 08/13/16 at 08:59; Status DC Rocuronium [place] (Zemuron) 50 mg STK-MED ONCE .ROUTE ; Start 08/13/16 at 12:50 ; Stop 08/13/16 at 12:51; Status DC Propofol 20 ml @ As Directed STK-MED ONCE IV ; Start 08/13/16 at 12:53; Stop at 12:54; Status DC Sevoflurane (Ultane) 30 ml STK-MED ONCE IH ; Start 08/13/16 at 14:04; Stop 08/13 at 14:05; Status DC Albumin Human 250 ml @ 100 mls/hr 1X ONCE IV Last administered on 08/13/16 23:38; Start 08/13/16 at 18:00; Stop 08/13/16 at 20:29; Status DC Albumin Human 500 ml @ 100 mls/hr 1X ONCE IV Last administered on 08/13/16 18:15; Start 08/13/16 at 18:00; Stop 08/13/16 at 22:59; Status DC Potassium Chloride 50 ml @ 50 mls/hr Q1H IV Last administered on 08/14/16 10: 46; Start 08/14/16 at 08:00; Stop 08/14/16 at 09:59; Status DC Nafcillin Sodium 2 gm/Sodium Chloride 100 ml @ 200 mls/hr Q4HRS IV Last administered on 08/23/16 08:51; Start 08/14/16 at 08:00; Stop 08/23/16 at 10:44; Status DC Enoxaparin Sodium (Lovenox 40mg Syringe) 40 mg Q24H SQ Last administered on 08/25 12:44; Start 08/14/16 at 12:00; Stop 08/26/16 at 11:53; Status DC Potassium Chloride (KCl Oral Soln) 40 meq 1X ONCE PEG Last administered on 07:54; Start 08/16/16 at 07:00; Stop 08/16/16 at 07:01; Status DC Potassium Chloride (KCl Oral Soln) 40 meq 1X ONCE PEG Last administered on 14:01; Start 08/16/16 at 12:00; Stop 08/16/16 at 12:01; Status DC Magnesium Sulfate/ Dextrose 50 ml @ 25 mls/hr 1X ONCE IV Last administered on 08/16/16 17:14; Start 08/16/16 at 16:30; Stop 08/16/16 at 18:29; Status DC Potassium Chloride (Klor-Con) 40 meq 1X ONCE PO ; Start 08/17/16 at 13:30; Stop 08/17/16 at 13:31; Status Cancel Potassium Chloride (KCl Oral Soln) 40 meq 1X ONCE PO Last administered on 08/17 15:34; Start 08/17/16 at 13:30; Stop 08/17/16 at 14:27; Status DC Potassium Chloride 100 ml @ 100 mls/hr PRN Q1HR PRN IV HYPOKALEMIA PER ICU PROTOCOL; Start 08/17/16 at 13:30; Status Cancel Potassium Chloride 50 ml @ 25 mls/hr PRN Q2HR PRN IV HYPOKALEMIA PER ICU PROTOCOL Last administered on 08/21/16 13:29; Start 08/17/16 at 13:30; Stop 08/21 at 13:34; Status DC Potassium Chloride (Klor-Con) 40 meq PRN Q2HR PRN PO HYPOKALEMIA PER ICU PROTOCOL Last administered on 09/04/16 08:04; Start 08/17/16 at 13:30; Stop at 08:32; Status DC Potassium Chloride 100 ml @ 100 mls/hr PRN Q1HR PRN IV HYPOKALEMIA PER ICU PROTOCOL; Start 08/17/16 at 13:30; Stop 09/04/16 at 15:41; Status DC Potassium Chloride 50 ml @ 25 mls/hr PRN Q2HR PRN IV HYPOKALEMIA PER ICU PROTOCOL; Start 08/17/16 at 13:30; Stop 09/04/16 at 15:41; Status DC Potassium Chloride (Klor-Con) 40 meq PRN Q2HR PRN PO HYPOKALEMIA PER ICU PROTOCOL; Start 08/17/16 at 13:30; Stop 09/04/16 at 08:33; Status DC Potassium Chloride 100 ml @ 100 mls/hr PRN Q1HR PRN IV HYPOKALEMIA PER ICU PROTOCOL; Start 08/17/16 at 13:30; Status Cancel Potassium Chloride 50 ml @ 25 mls/hr PRN Q2HR PRN IV HYPOKALEMIA PER ICU PROTOCOL Last administered on 08/27/16 14:37; Start 08/17/16 at 14:00; Stop at 15:41; Status DC Magnesium Sulfate/ Dextrose 100 ml @ 50 mls/hr PRN DAILY PRN IV HYPOMAGNESIA PER ICU PROTOCOL Last administered on 08/20/16 22:26; Start 08/18/16 at 09:00; Stop 09/04/16 at 15:41; Status DC Potassium Phos/ Sodium Phos (Phos-Nak) 1 pkt BID PO ; Start 08/17/16 at 21:00; Stop 08/18/16 at 09:01; Status DC Sodium Phosphate 40 mmol/Dextrose 263.3333 ml @ 62.5 mls/hr PRN 1X PRN IV HYPOPHOSP PER ICU PROTOCOL; Start 08/17/16 at 13:30; Status Cancel Potassium Chloride (KCl Oral Soln) 40 meq 1X ONCE PEG Last administered on 08/19 07:57; Start 08/19/16 at 07:45; Stop 08/19/16 at 07:46; Status DC Potassium Chloride (KCl Oral Soln) 40 meq 1X ONCE PEG Last administered on 08/19 11:36; Start 08/19/16 at 12:00; Stop 08/19/16 at 12:01; Status DC Alprazolam (Xanax) 0.5 mg 1X ONCE PO Last administered on 08/19/16 11:35; Start 08/19/16 at 11:15; Stop 08/19/16 at 11:16; Status DC Alprazolam (Xanax) 0.5 mg TID PEG Last administered on 08/23/16 20:34; Start at 15:00; Stop 08/24/16 at 08:11; Status DC Potassium Chloride 50 ml @ 50 mls/hr Q1H IV Last administered on 08/22/16 09:40 ; Start 08/22/16 at 08:30; Stop 08/22/16 at 10:29; Status DC Haloperidol Lactate (Haldol) 5 mg PRN Q6HRS PRN IVP AGITATION Last administered on 08/31/16 02:14; Start 08/22/16 at 09:15; Stop 09/03/16 at 10:57 ; Status DC Haloperidol Lactate (Haldol) 2 mg 1X ONCE IVP ; Start 08/22/16 at 09:15; Stop at 09:27; Status DC Magnesium Sulfate/ Dextrose 100 ml @ 50 mls/hr DAILY IV Last administered on 10:00; Start 08/23/16 at 09:00; Stop 08/26/16 at 08:59; Status DC Albumin Human 100 ml @ 100 mls/hr [id number] IV Last administered on 08/23/16 17:25 ; Start 08/23/16 at 09:00; Stop 08/23/16 at 16:59; Status DC Furosemide (Lasix) 40 mg [id number] IVP Last administered on 08/23/16 17:26; Start 08/23/16 at 09:00; Stop 08/23/16 at 16:01; Status DC Vitamin A/Vitamin D (Vitamin A & D Ointment) 1 james PRN Q1HR PRN TP SKIN PROTECTION Last administered on 08/31/16 17:52; Start 08/23/16 at 08:45 Cefepime HCl 1 gm/ Sodium Chloride 50 ml @ 100 mls/hr Q8HRS IV Last administered on 09/04/16 05:35; Start 08/23/16 at 14:00; Stop 09/04/16 at 07:57 ; Status DC Ondansetron HCl (Zofran) 4 mg PRN Q6HRS PRN IV NAUSEA/VOMITING Last administered on 08/23/16 19:27; Start 08/23/16 at 19:15 Alprazolam (Xanax) 0.25 mg TID PEG ; Start 08/24/16 at 09:00; Stop 08/24/16 at 09: 28; Status DC Diphenhydramine HCl (Benadryl) 25 mg HS PO ; Start 08/24/16 at 21:00; Stop at 21:00; Status DC Zolpidem Tartrate (Ambien) 5 mg PRN QHS PRN PO INSOMNIA Last administered on 21:47; Start 08/24/16 at 08:15 Alprazolam (Xanax) 0.5 mg TID PEG Last administered on 09/03/16 07:40; Start 08/24/16 at 09:00; Stop 09/03/16 at 10:57; Status DC Diphenhydramine HCl (Benadryl) 25 mg PRN QHS PRN PO sleep Last administered on 09/06/16 21:48; Start 08/24/16 at 21:00 Quetiapine Fumarate (SEROquel) 50 mg HS PO Last administered on 09/02/16 20:38 ; Start 08/24/16 at 21:00; Stop 09/03/16 at 20:55; Status DC Potassium Chloride 50 ml @ 50 mls/hr Q1H IV Last administered on 08/25/16 09:45 ; Start 08/25/16 at 08:00; Stop 08/25/16 at 09:59; Status DC Iohexol (Omnipaque 300 Mg/ml) 75 ml 1X ONCE IV Last administered on 08/25/16 15:45; Start 08/25/16 at 15:45; Stop 08/25/16 at 15:46; Status DC Iohexol (Omnipaque 240 Mg/ml) 50 ml 1X ONCE PO Last administered on 08/25/16 15:45; Start 08/25/16 at 15:45; Stop 08/25/16 at 15:46; Status DC Info (Do NOT chart on this entry -- for MONITORING) 1 each PRN DAILY PRN MC SEE COMMENTS; Start 08/25/16 at 16:00; Stop 08/27/16 at 15:59; Status DC Chlorhexidine Gluconate (Peridex) 15 ml BID SWSP Last administered on 08:17; Start 08/26/16 at 09:00; Stop 09/04/16 at 15:41; Status DC Potassium Chloride 50 ml @ 50 mls/hr Q1H IV ; Start 08/26/16 at 11:30; Stop at 11:30; Status DC Acetaminophen (Tylenol) 650 mg PRN Q6HRS PRN PEG MILD PAIN / TEMP Last administered on 09/03/16 07:40; Start 08/26/16 at 12:00; Stop 09/05/16 at 02:26 ; Status DC Lidocaine/Sodium Bicarbonate (Buffered Lidocaine 1%) 20 ml STK-MED ONCE IJ ; Start 08/26/16 at 14:50; Stop 08/26/16 at 14:51; Status DC Lidocaine/Sodium Bicarbonate (Buffered Lidocaine 1%) 20 ml 1X ONCE IJ Last administered on 08/26/16 15:42; Start 08/26/16 at 15:45; Stop 08/26/16 at 15:46; Status DC Lansoprazole (Prevacid) 30 mg BIDBFRMEAL FT Last administered on 09/07/16 08: 25; Start 08/27/16 at 17:30 Potassium Chloride 50 ml @ 50 mls/hr Q1H IV Last administered on 08/27/16 13:23 ; Start 08/27/16 at 13:00; Stop 08/27/16 at 14:59; Status DC Alteplase, Recombinant 5 mg/ Sterile Water 50 ml @ 0 mls/hr 1X ONCE INT CAT Last administered on 08/28/16 15:03; Start 08/28/16 at 10:45; Stop 08/28/16 at 10:46; Status DC Ferrous Sulfate 300 mg DAILY FT Last administered on 09/07/16 08:25; Start 03/07 at 09:00 Alteplase, Recombinant 5 mg/ Sterile Water 50 ml @ 0 mls/hr 1X ONCE INT CAT Last administered on 08/29/16 11:00; Start 08/29/16 at 11:00; Stop 08/29/16 at 11:01; Status DC Oxycodone/ Acetaminophen (Percocet 5/325) 1 tab PRN BID PRN PO PAIN Last administered on 09/02/16 10:36; Start 08/29/16 at 11:45; Stop 09/02/16 at 10:45 ; Status DC Metronidazole (Flagyl) 500 mg Q12HR PEG Last administered on 09/04/16 21:26; Start 08/30/16 at 09:00; Stop 09/05/16 at 02:26; Status DC Oxycodone HCl (Roxicodone) 10 mg Q4HRS PRN PO PAIN Last administered on 06:32; Start 08/30/16 at 15:15; Stop 09/02/16 at 10:45; Status DC Cholestyramine Resin (Questran Light) 4 gm QIDPMEDS PO Last administered on 18:18; Start 08/31/16 at 10:00; Stop 09/06/16 at 07:25; Status DC Diphenhydramine HCl (Benadryl) 25 mg PRN QHS PRN PO INSOMNIA; Start 08/31/16 at 10:30; Stop 09/03/16 at 10:57; Status DC Oxycodone HCl (Roxicodone) 5 mg Q4HRS PRN PO PAIN Last administered on 08:05; Start 09/02/16 at 10:45; Stop 09/04/16 at 15:42; Status DC Oxycodone HCl (Roxicodone) 10 mg Q4HRS PRN PO PAIN Last administered on 17:52; Start 09/02/16 at 11:00; Stop 09/04/16 at 15:42; Status DC Lactobacillus Acidophilus (Bacid, Jesi-Bid) 1 tab TIDWMEALS PO Last administered on 09/07/16 11:44; Start 09/03/16 at 08:00 Cholestyramine Resin (Questran Light) 4 gm BID@1000,2100 PEG ; Start 09/03/16 at 10:00; Stop 09/03/16 at 10:57; Status DC Alprazolam (Xanax) 0.5 mg QID PEG Last administered on 09/04/16 21:26; Start 09/03/16 at 13:00; Stop 09/05/16 at 02:26; Status DC Sertraline HCl (Zoloft) 25 mg QHS PO Last administered on 09/06/16 21:47; Start 09/03/16 at 21:00 Ibuprofen (Motrin) 600 mg Q8H PO Last administered on 09/06/16 18:38; Start at 11:15 Quetiapine Fumarate (SEROquel) 50 mg DAILY PO Last administered on 09/07/16 08 :25; Start 09/04/16 at 09:00 Cefazolin Sodium 2 gm/Sodium Chloride 50 ml @ 100 mls/hr Q8HRS IV Last administered on 09/07/16 11:48; Start 09/04/16 at 08:00 Potassium Chloride (KCl Oral Soln) 40 meq PRN Q2HR PRN PO HYPOKALEMIA PER ICU PROTOCOL; Start 09/04/16 at 08:45 Potassium Chloride (KCl Oral Soln) 40 meq PRN Q2HR PRN PO HYPOKALEMIA PER ICU PROTOCOL; Start 09/04/16 at 08:45 Barium Sulfate (Varibar Thin Liquid Apple) 148 gm 1X ONCE PO Last administered on 09/04/16 11:20; Start 09/04/16 at 11:15; Stop 09/04/16 at 11:16 ; Status DC Oxycodone HCl (Roxicodone) 10 mg Q5H PRN PO PAIN Last administered on 11:47; Start 09/04/16 at 17:00 Oxycodone HCl (Roxicodone) 5 mg Q5H PRN PO PAIN Last administered on 09/05/16 16:40; Start 09/04/16 at 17:00 Acetaminophen (Tylenol) 650 mg PRN Q6HRS PRN PO MILD PAIN / TEMP; Start at 02:30 Alprazolam (Xanax) 0.5 mg QID PO Last administered on 09/07/16 11:47; Start at 09:00 Metronidazole (Flagyl) 500 mg Q12HR PO Last administered on 09/05/16 20:51; Start 09/05/16 at 09:00; Stop 09/06/16 at 07:25; Status DC Active Scripts Active Reported No Known Medications Prior To Admisstion (Info) Each 1 Each Vitals/I & O Vital Sign - Last 24 Hours 09/06/16 09/06/16 09/06/16 09/06/16 15:31 16:01 18:38 19:20 Temp 98.7 98.7 Pulse 103 Resp 18 B/P (MAP) 119/78 (92) Pulse Ox 100 97 97 100 O2 Delivery AP NEB Tracheal Collar Tracheal Collar AP NEB O2 Flow Rate 8.0 8.0 8.0 8.0 09/06/16 09/06/16 09/06/16 09/07/16 19:37 20:07 23:00 00:11 Temp 99.9 97.6 97.6 99.9 97.6 97.6 Pulse 97 98 Resp 22 18 20 B/P (MAP) 134/90 (105) 120/73 (89) 120/73 (89) Pulse Ox 99 98 99 O2 Delivery Tracheal Collar Trach Collar Tracheal Collar Tracheal Collar O2 Flow Rate 8.0 8.0 09/07/16 09/07/16 09/07/16 09/07/16 00:14 02:32 05:14 06:14 Temp 97.7 97.7 Pulse 94 Resp 18 18 20 18 B/P (MAP) 129/89 (102) Pulse Ox 99 96 O2 Delivery Tracheal Collar Tracheal Collar Tracheal Collar Tracheal Collar O2 Flow Rate 8.0 09/07/16 09/07/16 09/07/16 09/07/16 07:00 07:20 08:25 11:00 Temp 98.0 98.0 Pulse 99 97 Resp 24 20 B/P (MAP) 128/90 (103) 133/89 (104) Pulse Ox 96 100 95 O2 Delivery Tracheal Collar Trach Collar AP NEB Tracheal Collar O2 Flow Rate 8.0 8.0 8.0 8.0 09/07/16 09/07/16 09/07/16 11:47 12:24 12:57 Pulse Ox 98 98 O2 Delivery Tracheal Collar AP NEB O2 Flow Rate 8.0 8.0 8.0 Intake and Output 09/06/16 09/06/16 09/07/16 14:59 22:59 06:59 Intake Total 280 ml Output Total 300 ml 400 ml Balance -300 ml -120 ml Nutrition Consultation Dietary Evaluation: Recommendations by RD: Increase Calorie Intake, Protein supplementation Comments: -Pt refuses to drink the boost plus protein shakes. Tried the boost breeze protein shakes and agrees. Add orange/greene Boost Breeze TID (250 calories/9 grams protein) -D/c the boost pudding, pt refuses -provided alternate menu, pt planning to update food preferences Expected Outcomes/Goals: meet 75% estimated nutrition needs- met Interpretation of weight loss: >7.5% in 3 months Malnutrition Findings: Reduced Top Stitcher Strength: N/A Reduced Top Stitcher Strength (Non-Sev: N/A Malnutrition related to morbid: No Weight Status: Overweight Fluid Accumulation (N/A): N/A EPHRAIM VALADEZ MD September 07, 2016 15:24
[2016-09-07] MEDS: diphenhydrAMINE HCL 25 MG CAPSULE PO PRN (21:42)
[2016-09-07] MEDS: SERTRALINE 25 MG TABLET. PO SCH (21:43)
[2016-09-07] MEDS: ZOLPIDEM 5 MG TABLET. PO PRN (21:43)
[2016-09-08] MEDS: oxyCODONE IR 5 MG TABLET PO PRN ×4 (02:47→19:27)
[2016-09-08] MEDS: IBUPROFEN 600 MG TABLET. PO SCH ×3 (02:52→19:27)
[2016-09-08 03:00] VITALS: BP 121/78
[2016-09-08 05:40] LABS: BASO # 0.1 x10^3/uL (0.0-0.2); BASO % 1 % (0-3); EOS % 1 % (0-3); HEMATOCRIT 29.7 % (36.0-47.0); HEMOGLOBIN 10.2 g/dL (12.0-15.5); LYMPH # 2.2 x10^3/uL (1.0-4.8); LYMPH % 23 % (24-48); MEAN CORPUSCULAR HEMOGLOBIN 31 pg (25-35); MEAN CORPUSCULAR HGB CONC 34 g/dL (31-37); MEAN CORPUSCULAR VOLUME 89 fL (79-100); MONO % 6 % (0-9); NEUT % 69 % (31-73); PLATELET COUNT 283 x10^3/uL (140-400); RED BLOOD COUNT 3.35 x10^6/uL (3.50-5.40); RED CELL DISTRIBUTION WIDTH 17.8 % (11.5-14.5); WHITE BLOOD COUNT 9.6 x10^3/uL (4.0-11.0)
[2016-09-08 06:00] VITALS: BP 137/91
[2016-09-08] MEDS: QUEtiapine 25 MG TABLET. PO SCH (08:21)
[2016-09-08] MEDS: LANSOPRAZOLE 30 MG TAB.RAP.DR FT SCH ×2 (08:21→16:30)
[2016-09-08] MEDS: FERROUS SULFATE ORAL 300 MG/5 ML SOLUTION. FT SCH (08:21)
[2016-09-08] MEDS: LACTOBACILLUS ACIDOPH & BULGAR 1 TABLET. PO SCH ×3 (08:21→17:00)
[2016-09-08] MEDS: ALPRAZolam 0.5 MG TABLET PO SCH ×4 (08:21→20:58)
[2016-09-08] MEDS: NYSTATIN TOPICAL POWDER 15GM BOTTLE. TP SCH ×2 (08:22→20:59)
[2016-09-08] MEDS: IPRATRPIUM/ALBUTEROL 0.5/2.5MG 3 ML NEBU. NEB SCH ×4 (08:49→19:37)
[2016-09-08] MEDS: BUDESONIDE 0.5 MG/2 ML NEBU. NEB SCH ×2 (08:49→19:37)
--- NOTE | 2016-09-08 10:34 | PDOC ---
PULMONARY PROGRESS NOTES Subjective tolerates PM valve well s/p bilateral chest tubes, with removal s/p intra pleural TPA left side 08/27, 08/28, 08/29 Vitals Vital Signs Date Time Temp Pulse Resp B/P (MAP) Pulse Ox O2 Delivery O2 Flow Rate FiO2 09/08/16 10:06 96 Tracheal Collar 8.0 09/08/16 06:00 98.3 93 18 137/91 (106) 98.3 Comments ros as mentioned as above other sys otherwise neg ROS: No Chest Pain, No Abdominal Pain General: Alert, No acute distress HEENT: Other (nc at perrl. poor dentition, nose clear) Lungs: Other (decrease bs) Cardiovascular: S1, S2, Other Abdomen: Soft, Non-tender, Other (no mass) Neuro Exam: Alert, Oriented Extremities: Other (edema) Skin: Warm Labs Laboratory Tests Test 09/08/16 05:15 White Blood Count 9.6 x10^3/uL (4.0-11.0) Red Blood Count 3.35 x10^6/uL (3.50-5.40) Hemoglobin 10.2 g/dL (12.0-15.5) Hematocrit 29.7 % (36.0-47.0) Mean Corpuscular Volume 89 fL (79-100) Mean Corpuscular Hemoglobin 31 pg (25-35) Mean Corpuscular Hemoglobin Concent 34 g/dL (31-37) Red Cell Distribution Width 17.8 % (11.5-14.5) Platelet Count 283 x10^3/uL (140-400) Neutrophils (%) (Auto) 69 % (31-73) Lymphocytes (%) (Auto) 23 % (24-48) Monocytes (%) (Auto) 6 % (0-9) Eosinophils (%) (Auto) 1 % (0-3) Basophils (%) (Auto) 1 % (0-3) Neutrophils # (Auto) 6.6 x10^3uL (1.8-7.7) Lymphocytes # (Auto) 2.2 x10^3/uL (1.0-4.8) Monocytes # (Auto) 0.6 x10^3/uL (0.0-1.1) Eosinophils # (Auto) 0.1 x10^3/uL (0.0-0.7) Basophils # (Auto) 0.1 x10^3/uL (0.0-0.2) Laboratory Tests Test 09/08/16 05:15 White Blood Count 9.6 x10^3/uL (4.0-11.0) Red Blood Count 3.35 x10^6/uL (3.50-5.40) Hemoglobin 10.2 g/dL (12.0-15.5) Hematocrit 29.7 % (36.0-47.0) Mean Corpuscular Volume 89 fL (79-100) Mean Corpuscular Hemoglobin 31 pg (25-35) Mean Corpuscular Hemoglobin Concent 34 g/dL (31-37) Red Cell Distribution Width 17.8 % (11.5-14.5) Platelet Count 283 x10^3/uL (140-400) Neutrophils (%) (Auto) 69 % (31-73) Lymphocytes (%) (Auto) 23 % (24-48) Monocytes (%) (Auto) 6 % (0-9) Eosinophils (%) (Auto) 1 % (0-3) Basophils (%) (Auto) 1 % (0-3) Neutrophils # (Auto) 6.6 x10^3uL (1.8-7.7) Lymphocytes # (Auto) 2.2 x10^3/uL (1.0-4.8) Monocytes # (Auto) 0.6 x10^3/uL (0.0-1.1) Eosinophils # (Auto) 0.1 x10^3/uL (0.0-0.7) Basophils # (Auto) 0.1 x10^3/uL (0.0-0.2) Medications Active Scripts Medications Dose Route/Sig Days Date Category No Known Medications Prior To Admisstion (Info) Each 1 Each 08/06/16 Reported Comments cxr reviewed, 09/02 interval improvement in right-sided parenchymal opacities / volume loss Left base Impression . 1. Acute hypoxemic respiratory failure, multifactorial in etiology 2. bilateral loculated effusions, suspected empyema, s/p bilateral chest tubes , VERY LOW GLUCOSE(9), LOW PH , s/p TPA and removal of chest tubes 3. Bilateral pulmonary nodules with cavitation, due to septic emboli. 4. Endocarditis. right sided, improving vegetations 5. Anemia, 6. Intravenous drug abuse. 7. MSSA septicemia/pneumonia/ CHF Plan . T-shield 24 hrs/pm valve s/p removal of bilateral chest tube s/p intra pleural TPA left side Overall left empyema has sig. improved ,only small LL pockets. Trach secretions for c/s, E-coli, on antibiotic per ID, bronchodilators off lovenox, due to on/off anemia oral nutrition downsize trach #6 next week CARLEY WORKMAN MD September 08, 2016 10:34
--- NOTE | 2016-09-08 10:53 | PDOC ---
PROGRESS NOTES Chief Complaint Chief Complaint Sepsis Acute hypoxic respir failure ASSESSMENT AND PLAN: 1. Sepsis: resolved 2. 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 MSSA. on cefepime (to cover E.coli as well). Abx rx until 09/19 3. PNA: septic emboli w/cavitary lesions. sputum with heavy growth E.coli. 4. 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 rpt CT chest on 08/31 with improvement. Flagyl added as per Dr Will 5. Acute respir failure: traced, PM valve, downsizing trach 6. Diarrhea: C.diff neg. prob due to TF - changed. probiotics 7. Anemia: severe, recurrent: multifactorial, incl severe inflammation, HCV toxicity. inflammation confirmed by iron studies. b12/folate WNL. on daily low dose Fe 8. Thrombocytopenia: 2/2 infection, now resolved. monitor 9. [place]A: resolved 10. Hep C: new dx during current admit. F/U on O/P basis for rx 11. Polysubstance abuse: wean narcotics: oxy5 q4 -> q5 PRN. add adjunct NSAIDs, heat. 12. Depression: increase xanax to qid PRN. start Zoloft 13. Malnutrition: severe, POA, weight loss prior to admit, albumin critically low. suspect large component of inflammation as well. wean peg feeds, until full PO established History of Present Illness History of Present Illness abd discomfort, no pain. in good spirits Vitals Vitals Vital Signs Date Time Temp Pulse Resp B/P (MAP) Pulse Ox O2 Delivery O2 Flow Rate FiO2 09/08/16 10:06 96 Tracheal Collar 8.0 09/08/16 06:00 98.3 93 18 137/91 (106) 98.3 Physical Exam General: Alert, Cooperative, No acute distress Heart: Normal S1, Normal S2, No murmurs Lungs: Other (decrease bs) Abdomen: Normal bowel sounds, Other (Hepatosplenomegaly present) Extremities: No cyanosis, Other (1+ edema) Skin: No breakdown, No significant lesion Labs LABS Laboratory Tests Test 09/08/16 05:15 White Blood Count 9.6 x10^3/uL (4.0-11.0) Red Blood Count 3.35 x10^6/uL (3.50-5.40) Hemoglobin 10.2 g/dL (12.0-15.5) Hematocrit 29.7 % (36.0-47.0) Mean Corpuscular Volume 89 fL (79-100) Mean Corpuscular Hemoglobin 31 pg (25-35) Mean Corpuscular Hemoglobin Concent 34 g/dL (31-37) Red Cell Distribution Width 17.8 % (11.5-14.5) Platelet Count 283 x10^3/uL (140-400) Neutrophils (%) (Auto) 69 % (31-73) Lymphocytes (%) (Auto) 23 % (24-48) Monocytes (%) (Auto) 6 % (0-9) Eosinophils (%) (Auto) 1 % (0-3) Basophils (%) (Auto) 1 % (0-3) Neutrophils # (Auto) 6.6 x10^3uL (1.8-7.7) Lymphocytes # (Auto) 2.2 x10^3/uL (1.0-4.8) Monocytes # (Auto) 0.6 x10^3/uL (0.0-1.1) Eosinophils # (Auto) 0.1 x10^3/uL (0.0-0.7) Basophils # (Auto) 0.1 x10^3/uL (0.0-0.2) Comment Review of Relevant I have reviewed the following items shanta (where applicable) has been applied. Labs Laboratory Tests Test 09/08/16 05:15 White Blood Count 9.6 x10^3/uL (4.0-11.0) Red Blood Count 3.35 x10^6/uL (3.50-5.40) Hemoglobin 10.2 g/dL (12.0-15.5) Hematocrit 29.7 % (36.0-47.0) Mean Corpuscular Volume 89 fL (79-100) Mean Corpuscular Hemoglobin 31 pg (25-35) Mean Corpuscular Hemoglobin Concent 34 g/dL (31-37) Red Cell Distribution Width 17.8 % (11.5-14.5) Platelet Count 283 x10^3/uL (140-400) Neutrophils (%) (Auto) 69 % (31-73) Lymphocytes (%) (Auto) 23 % (24-48) Monocytes (%) (Auto) 6 % (0-9) Eosinophils (%) (Auto) 1 % (0-3) Basophils (%) (Auto) 1 % (0-3) Neutrophils # (Auto) 6.6 x10^3uL (1.8-7.7) Lymphocytes # (Auto) 2.2 x10^3/uL (1.0-4.8) Monocytes # (Auto) 0.6 x10^3/uL (0.0-1.1) Eosinophils # (Auto) 0.1 x10^3/uL (0.0-0.7) Basophils # (Auto) 0.1 x10^3/uL (0.0-0.2) Laboratory Tests Test 09/08/16 05:15 White Blood Count 9.6 x10^3/uL (4.0-11.0) Red Blood Count 3.35 x10^6/uL (3.50-5.40) Hemoglobin 10.2 g/dL (12.0-15.5) Hematocrit 29.7 % (36.0-47.0) Mean Corpuscular Volume 89 fL (79-100) Mean Corpuscular Hemoglobin 31 pg (25-35) Mean Corpuscular Hemoglobin Concent 34 g/dL (31-37) Red Cell Distribution Width 17.8 % (11.5-14.5) Platelet Count 283 x10^3/uL (140-400) Neutrophils (%) (Auto) 69 % (31-73) Lymphocytes (%) (Auto) 23 % (24-48) Monocytes (%) (Auto) 6 % (0-9) Eosinophils (%) (Auto) 1 % (0-3) Basophils (%) (Auto) 1 % (0-3) Neutrophils # (Auto) 6.6 x10^3uL (1.8-7.7) Lymphocytes # (Auto) 2.2 x10^3/uL (1.0-4.8) Monocytes # (Auto) 0.6 x10^3/uL (0.0-1.1) Eosinophils # (Auto) 0.1 x10^3/uL (0.0-0.7) Basophils # (Auto) 0.1 x10^3/uL (0.0-0.2) Microbiology 08/12/16 Blood Fungal Culture - Preliminary, Resulted 08/12/16 Fungal Culture Result 1 - Preliminary, Resulted 08/26/16 Gram Stain - Final, Complete 08/22/16 Gram Stain - Final, Complete 08/31/16 Urine Culture - Final, Complete 08/31/16 Urine Culture Result 1 (JAMEY) - Final, Complete Medications Current Medications Amino Acids/ Glycerin/ Electrolytes 1,000 ml @ 100 mls/hr Q10H IV Last administered on 08/05/16 02:40; Start 08/02/16 at 03:00; Stop 08/05/16 at 08:50 ; Status DC Morphine Sulfate 2 mg PRN Q2HR PRN IV SEVERE PAIN Last administered on 11:59; Start 08/02/16 at 02:30; Stop 08/02/16 at 13:28; Status DC Daptomycin 220 mg/ Sodium Chloride 50 ml @ 100 mls/hr Q24H IV ; Start 08/02/16 at 09:15; Stop 08/02/16 at 15:58; Status DC Cefepime HCl 1 gm/ Sodium Chloride 50 ml @ 100 mls/hr Q12HR IV Last administered on 08/04/16 08:10; Start 08/02/16 at 10:00; Stop 08/04/16 at 10:33 ; Status DC Daptomycin 220 mg/ Sodium Chloride 50 ml @ 100 mls/hr ONCE ONCE IV ; Start at 10:00; Stop 08/02/16 at 10:29; Status Cancel Potassium Chloride (Klor-Con) 40 meq 1X ONCE PO Last administered on 10:17; Start 08/02/16 at 09:45; Stop 08/02/16 at 09:46; Status DC Daptomycin 220 mg/ Sodium Chloride 50 ml @ 100 mls/hr Q24H IV Last administered on 08/03/16 09:43; Start 08/02/16 at 10:15; Stop 08/03/16 at 10:29 ; Status DC Potassium Chloride (Klor-Con) 40 meq 1X ONCE PO Last administered on 12:57; Start 08/02/16 at 12:30; Stop 08/02/16 at 12:36; Status DC Morphine Sulfate 5 mg PRN Q2HRS PRN IV MODERATE TO SEVERE PAIN Last administered on 08/26/16 16:15; Start 08/02/16 at 13:30; Stop 08/26/16 at 17:31; Status DC Morphine Sulfate 8 mg PRN Q2HRS PRN IV MODERATE TO SEVERE PAIN Last administered on 08/04/16 14:58; Start 08/02/16 at 13:30; Stop 08/26/16 at 17:31 ; Status DC Acetaminophen (Tylenol) 650 mg PRN Q6HRS PRN PO TEMP GREATER THAN 100.4 Last administered on 08/26/16 00:24; Start 08/02/16 at 14:45; Stop 08/26/16 at 17:31; Status DC Lactated Ringer's 1,000 ml @ 50 mls/hr Q20H IV ; Start 08/05/16 at 07:00; Stop 08/05/16 at 18:13; Status DC Daptomycin 220 mg/ Sodium Chloride 50 ml @ 100 mls/hr Q24H IV ; Start 08/03/16 at 11:00; Status Cancel Potassium Chloride (Klor-Con) 40 meq 1X ONCE PO Last administered on 17:41; Start 08/02/16 at 17:15; Stop 08/02/16 at 17:18; Status DC Potassium Chloride (Klor-Con) 40 meq BIDWMEALS PO ; Start 08/03/16 at 08:00; Stop 08/03/16 at 11:08; Status DC Morphine Sulfate 5 mg 1X ONCE IV Last administered on 08/02/16 21:45; Start 08/02/16 at 21:30; Stop 08/02/16 at 21:33; Status DC Lorazepam (Ativan) 1 mg 1X ONCE IV Last administered on 08/02/16 21:30; Start 08/02/16 at 21:30; Stop 08/02/16 at 21:33; Status DC Acetaminophen (Acetaminophen Supp) 650 mg PRN Q6HRS PRN DE MILD PAIN / TEMP Last administered on 08/13/16 03:13; Start 08/03/16 at 01:15; Stop 08/26/16 at 17:31; Status DC Albuterol/ Ipratropium (Duoneb) 3 ml RTQID NEB Last administered on 09/08/16 08:49; Start 08/03/16 at 08:00 Budesonide (Pulmicort) 0.5 mg RTBID NEB Last administered on 09/08/16 08:49; Start 08/03/16 at 08:00 Pantoprazole Sodium (Protonix Vial) 40 mg 1X ONCE IVP Last administered on 10:06; Start 08/03/16 at 08:00; Stop 08/03/16 at 08:01; Status DC Daptomycin 320 mg/ Sodium Chloride 50 ml @ 100 mls/hr Q24H IV Last administered on 08/04/16 10:03; Start 08/04/16 at 10:00; Stop 08/04/16 at 10:33 ; Status DC Lorazepam (Ativan) 0.5 mg PRN Q6HRS PRN IV ANXIETY / AGITATION Last administered on 08/04/16 09:12; Start 08/03/16 at 11:15; Stop 08/07/16 at 11:02 ; Status DC Lorazepam (Ativan) 0.5 mg 1X ONCE IV Last administered on 08/04/16 10:00; Start 08/04/16 at 10:00; Stop 08/04/16 at 10:01; Status DC Morphine Sulfate 5 mg 1X ONCE IV Last administered on 08/04/16 10:00; Start 08/04/16 at 10:00; Stop 08/04/16 at 10:01; Status DC Lorazepam (Ativan) 0.5 mg PRN Q4HRS PRN IV ANXIETY / AGITATION Last administered on 08/25/16 02:29; Start 08/04/16 at 10:00; Stop 08/26/16 at 17:31; Status DC Nafcillin Sodium 2 gm/Sodium Chloride 100 ml @ 200 mls/hr Q4HRS IV Last administered on 08/09/16 10:10; Start 08/04/16 at 12:00; Stop 08/09/16 at 11:49 ; Status DC Propofol 100 ml @ As Directed STK-MED ONCE IV ; Start 08/04/16 at 16:10; Stop 08/04/16 at 16:11; Status DC Succinylcholine Chloride (Anectine) 200 mg STK-MED ONCE .ROUTE ; Start 08/04/16 at 16:14; Stop 08/04/16 at 16:15; Status DC Succinylcholine Chloride (Anectine) 200 mg 1X ONCE IV ; Start 08/04/16 at 16:45 ; Stop 08/04/16 at 16:46; Status DC Propofol 100 ml @ 0 mls/hr CONT PRN IV SEE I/O RECORD Last administered on 08/17 10:18; Start 08/04/16 at 16:45; Stop 08/26/16 at 17:31; Status DC Lorazepam (Ativan) 0.5 mg 1X ONCE IV Last administered on 08/04/16 16:45; Start 08/04/16 at 16:45; Stop 08/04/16 at 16:46; Status DC Morphine Sulfate 5 mg 1X ONCE IV Last administered on 08/04/16 16:44; Start 08/04/16 at 16:45; Stop 08/04/16 at 16:46; Status DC Fentanyl Citrate 30 ml @ 0 mls/hr CONT PRN IV PROTOCOL Last administered on 07:32; Start 08/04/16 at 16:45; Stop 09/02/16 at 10:45; Status DC Chlorhexidine Gluconate (Peridex) 15 ml BID MM Last administered on 08/17/16 10:18; Start 08/04/16 at 21:00; Stop 08/17/16 at 19:36; Status DC Famotidine (Pepcid) 20 mg BID IVP Last administered on 08/26/16 08:43; Start at 17:00; Stop 08/26/16 at 17:31; Status DC Sodium Chloride 1,000 ml @ 100 mls/hr Q10H IV Last administered on 08/07/16 04:35; Start 08/05/16 at 09:00; Stop 08/07/16 at 08:59; Status DC Succinylcholine Chloride (Anectine) 200 mg STK-MED ONCE .ROUTE ; Start 08/04/16 at 16:00; Stop 08/05/16 at 12:32; Status DC Lorazepam (Ativan) 2 mg 1X ONCE IV Last administered on 08/05/16 20:43; Start 08/05/16 at 21:00; Stop 08/05/16 at 21:01; Status DC Furosemide (Lasix) 40 mg 1X PRN PRN IV blood transfusion Last administered on 14:17; Start 08/06/16 at 08:00; Stop 08/07/16 at 07:59; Status DC Sodium Bicarbonate 50 meq 1X ONCE IV Last administered on 08/06/16 14:06; Start 08/06/16 at 12:00; Stop 08/06/16 at 12:01; Status DC Calcium Chloride 1,000 mg STK-MED ONCE IV ; Start 08/04/16 at 12:00; Stop at 15:13; Status DC Epinephrine HCl (Epinephrine Syringe) 2 mg STK-MED ONCE .ROUTE ; Start 08/04/16 at 12:00; Stop 08/06/16 at 15:13; Status DC Sodium Bicarbonate 100 meq STK-MED ONCE .ROUTE ; Start 08/04/16 at 12:00; Stop 08/06/16 at 15:13; Status DC Amino Acids/ Glycerin/ Electrolytes 1,000 ml @ 100 mls/hr Q10H IV Last administered on 08/08/16 12:33; Start 08/07/16 at 10:00; Stop 08/09/16 at 09:42 ; Status DC Enoxaparin Sodium (Lovenox 40mg Syringe) 40 mg Q24H SQ Last administered on 13:10; Start 08/07/16 at 13:00; Stop 08/10/16 at 10:43; Status DC Vecuronium [place] (Norcuron Bolus) 10 mg STK-MED ONCE IV ; Start 08/07/16 at 13 :56; Stop 08/07/16 at 13:57; Status DC Vecuronium [place] (Norcuron Bolus) 6 mg 1X ONCE IV Last administered on 14:06; Start 08/07/16 at 14:00; Stop 08/07/16 at 14:05; Status DC Sodium Bicarbonate 50 meq 1X ONCE IV Last administered on 08/08/16 11:46; Start 08/08/16 at 11:45; Stop 08/08/16 at 11:46; Status DC Nystatin (Nystop) 1 james BID TP Last administered on 09/08/16 08:22; Start at 21:00 Linezolid 300 ml @ 300 mls/hr Q12HR IV Last administered on 08/14/16 20:51; Start 08/09/16 at 09:00; Stop 08/15/16 at 07:21; Status DC Sodium Chloride 1,000 ml @ 20 mls/hr Q24H IV Last administered on 08/26/16 06: 41; Start 08/09/16 at 09:45; Stop 08/27/16 at 13:51; Status DC Sodium Bicarbonate 150 meq/Dextrose 1,150 ml @ 100 mls/hr 1X ONCE IV Last administered on 08/09/16 12:25; Start 08/09/16 at 11:30; Stop 08/09/16 at 22:59 ; Status DC Piperacillin Sod/ Tazobactam Sod (Zosyn Per Pharmacy) 1 each PRN DAILY PRN MC SEE COMMENTS; Start 08/09/16 at 12:00; Stop 08/14/16 at 07:40; Status DC Piperacillin Sod/ Tazobactam Sod 4.5 gm/Sodium Chloride 100 ml @ 200 mls/hr Q6HRS IV Last administered on 08/14/16 05:58; Start 08/09/16 at 12:30; Stop at 07:33; Status DC Vecuronium [place] (Norcuron Bolus) 5 mg PRN Q4HRS PRN IV INCREASED RESPIRATORY ,NOT RELI Last administered on 08/11/16 02:56; Start 08/09/16 at 13:30; Stop at 17:31; Status DC Potassium Chloride 50 ml @ 100 mls/hr Q1H IV ; Start 08/10/16 at 09:30; Stop at 10:59; Status Cancel Potassium Chloride 100 ml @ 100 mls/hr Q1H IV Last administered on 08/10/16 16:28; Start 08/10/16 at 10:30; Stop 08/10/16 at 14:29; Status DC Potassium Chloride (KCl Oral Soln) 60 meq 1X ONCE PEG Last administered on 11:16; Start 08/10/16 at 11:00; Stop 08/10/16 at 11:01; Status DC Sodium Bicarbonate 150 meq/Dextrose 1,150 ml @ 100 mls/hr [id number] IV Last administered on 08/10/16 11:14; Start 08/10/16 at 11:00; Stop 08/10/16 at 22:29 ; Status DC Enoxaparin Sodium (Lovenox 40mg Syringe) 40 mg Q24H SQ ; Start 08/10/16 at 13:00 ; Stop 08/10/16 at 13:00; Status DC Micafungin Sodium 100 mg/Dextrose 100 ml @ 100 mls/hr Q24H IV Last administered on 08/13/16 16:26; Start 08/11/16 at 16:00; Stop 08/14/16 at 07:33 ; Status DC Furosemide (Lasix) 40 mg 1X ONCE IVP Last administered on 08/12/16 08:38; Start 08/12/16 at 08:00; Stop 08/12/16 at 08:06; Status DC Morphine Sulfate 1 mg PRN Q10MIN PRN IV SEVERE PAIN; Start 08/13/16 at 07:00; Stop 08/14/16 at 06:59; Status DC Lactated Ringer's 1,000 ml @ 0 mls/hr Q0M IV ; Start 08/13/16 at 07:00; Stop at 18:59; Status DC Lidocaine HCl 2 ml PRN 1X PRN ID PRIOR TO IV START; Start 08/13/16 at 07:00; Stop 08/14/16 at 06:59; Status DC Hydromorphone HCl (Dilaudid) 0.5 mg PRN Q10MIN PRN IV SEV PAIN, Second choice; Start 08/13/16 at 07:00; Stop 08/14/16 at 06:59; Status DC Prochlorperazine Edisylate (Compazine) 5 mg PACU PRN PRN IV NAUSEA, MRX1; Start 08/13/16 at 07:00; Stop 08/14/16 at 06:59; Status DC Morphine Sulfate 1 mg PRN Q10MIN PRN IV SEVERE PAIN; Start 08/13/16 at 07:00; Stop 08/14/16 at 06:59; Status DC Lactated Ringer's 1,000 ml @ 0 mls/hr Q0M IV ; Start 08/13/16 at 07:00; Stop at 18:59; Status DC Lidocaine HCl 2 ml PRN 1X PRN ID PRIOR TO IV START; Start 08/13/16 at 07:00; Stop 08/14/16 at 06:59; Status DC Hydromorphone HCl (Dilaudid) 0.5 mg PRN Q10MIN PRN IV SEV PAIN, Second choice; Start 08/13/16 at 07:00; Stop 08/14/16 at 06:59; Status DC Prochlorperazine Edisylate (Compazine) 5 mg PACU PRN PRN IV NAUSEA, MRX1; Start 08/13/16 at 07:00; Stop 08/14/16 at 06:59; Status DC Potassium Chloride 50 ml @ 50 mls/hr Q1H IV Last administered on 08/13/16 07: 57; Start 08/13/16 at 07:00; Stop 08/13/16 at 08:59; Status DC Rocuronium [place] (Zemuron) 50 mg STK-MED ONCE .ROUTE ; Start 08/13/16 at 12:50 ; Stop 08/13/16 at 12:51; Status DC Propofol 20 ml @ As Directed STK-MED ONCE IV ; Start 08/13/16 at 12:53; Stop at 12:54; Status DC Sevoflurane (Ultane) 30 ml STK-MED ONCE IH ; Start 08/13/16 at 14:04; Stop 08/13 at 14:05; Status DC Albumin Human 250 ml @ 100 mls/hr 1X ONCE IV Last administered on 08/13/16 23:38; Start 08/13/16 at 18:00; Stop 08/13/16 at 20:29; Status DC Albumin Human 500 ml @ 100 mls/hr 1X ONCE IV Last administered on 08/13/16 18:15; Start 08/13/16 at 18:00; Stop 08/13/16 at 22:59; Status DC Potassium Chloride 50 ml @ 50 mls/hr Q1H IV Last administered on 08/14/16 10: 46; Start 08/14/16 at 08:00; Stop 08/14/16 at 09:59; Status DC Nafcillin Sodium 2 gm/Sodium Chloride 100 ml @ 200 mls/hr Q4HRS IV Last administered on 08/23/16 08:51; Start 08/14/16 at 08:00; Stop 08/23/16 at 10:44; Status DC Enoxaparin Sodium (Lovenox 40mg Syringe) 40 mg Q24H SQ Last administered on 08/25 12:44; Start 08/14/16 at 12:00; Stop 08/26/16 at 11:53; Status DC Potassium Chloride (KCl Oral Soln) 40 meq 1X ONCE PEG Last administered on 07:54; Start 08/16/16 at 07:00; Stop 08/16/16 at 07:01; Status DC Potassium Chloride (KCl Oral Soln) 40 meq 1X ONCE PEG Last administered on 14:01; Start 08/16/16 at 12:00; Stop 08/16/16 at 12:01; Status DC Magnesium Sulfate/ Dextrose 50 ml @ 25 mls/hr 1X ONCE IV Last administered on 08/16/16 17:14; Start 08/16/16 at 16:30; Stop 08/16/16 at 18:29; Status DC Potassium Chloride (Klor-Con) 40 meq 1X ONCE PO ; Start 08/17/16 at 13:30; Stop 08/17/16 at 13:31; Status Cancel Potassium Chloride (KCl Oral Soln) 40 meq 1X ONCE PO Last administered on 08/17 15:34; Start 08/17/16 at 13:30; Stop 08/17/16 at 14:27; Status DC Potassium Chloride 100 ml @ 100 mls/hr PRN Q1HR PRN IV HYPOKALEMIA PER ICU PROTOCOL; Start 08/17/16 at 13:30; Status Cancel Potassium Chloride 50 ml @ 25 mls/hr PRN Q2HR PRN IV HYPOKALEMIA PER ICU PROTOCOL Last administered on 08/21/16 13:29; Start 08/17/16 at 13:30; Stop 08/21 at 13:34; Status DC Potassium Chloride (Klor-Con) 40 meq PRN Q2HR PRN PO HYPOKALEMIA PER ICU PROTOCOL Last administered on 09/04/16 08:04; Start 08/17/16 at 13:30; Stop at 08:32; Status DC Potassium Chloride 100 ml @ 100 mls/hr PRN Q1HR PRN IV HYPOKALEMIA PER ICU PROTOCOL; Start 08/17/16 at 13:30; Stop 09/04/16 at 15:41; Status DC Potassium Chloride 50 ml @ 25 mls/hr PRN Q2HR PRN IV HYPOKALEMIA PER ICU PROTOCOL; Start 08/17/16 at 13:30; Stop 09/04/16 at 15:41; Status DC Potassium Chloride (Klor-Con) 40 meq PRN Q2HR PRN PO HYPOKALEMIA PER ICU PROTOCOL; Start 08/17/16 at 13:30; Stop 09/04/16 at 08:33; Status DC Potassium Chloride 100 ml @ 100 mls/hr PRN Q1HR PRN IV HYPOKALEMIA PER ICU PROTOCOL; Start 08/17/16 at 13:30; Status Cancel Potassium Chloride 50 ml @ 25 mls/hr PRN Q2HR PRN IV HYPOKALEMIA PER ICU PROTOCOL Last administered on 08/27/16 14:37; Start 08/17/16 at 14:00; Stop at 15:41; Status DC Magnesium Sulfate/ Dextrose 100 ml @ 50 mls/hr PRN DAILY PRN IV HYPOMAGNESIA PER ICU PROTOCOL Last administered on 08/20/16 22:26; Start 08/18/16 at 09:00; Stop 09/04/16 at 15:41; Status DC Potassium Phos/ Sodium Phos (Phos-Nak) 1 pkt BID PO ; Start 08/17/16 at 21:00; Stop 08/18/16 at 09:01; Status DC Sodium Phosphate 40 mmol/Dextrose 263.3333 ml @ 62.5 mls/hr PRN 1X PRN IV HYPOPHOSP PER ICU PROTOCOL; Start 08/17/16 at 13:30; Status Cancel Potassium Chloride (KCl Oral Soln) 40 meq 1X ONCE PEG Last administered on 08/19 07:57; Start 08/19/16 at 07:45; Stop 08/19/16 at 07:46; Status DC Potassium Chloride (KCl Oral Soln) 40 meq 1X ONCE PEG Last administered on 08/19 11:36; Start 08/19/16 at 12:00; Stop 08/19/16 at 12:01; Status DC Alprazolam (Xanax) 0.5 mg 1X ONCE PO Last administered on 08/19/16 11:35; Start 08/19/16 at 11:15; Stop 08/19/16 at 11:16; Status DC Alprazolam (Xanax) 0.5 mg TID PEG Last administered on 08/23/16 20:34; Start at 15:00; Stop 08/24/16 at 08:11; Status DC Potassium Chloride 50 ml @ 50 mls/hr Q1H IV Last administered on 08/22/16 09:40 ; Start 08/22/16 at 08:30; Stop 08/22/16 at 10:29; Status DC Haloperidol Lactate (Haldol) 5 mg PRN Q6HRS PRN IVP AGITATION Last administered on 08/31/16 02:14; Start 08/22/16 at 09:15; Stop 09/03/16 at 10:57 ; Status DC Haloperidol Lactate (Haldol) 2 mg 1X ONCE IVP ; Start 08/22/16 at 09:15; Stop at 09:27; Status DC Magnesium Sulfate/ Dextrose 100 ml @ 50 mls/hr DAILY IV Last administered on 10:00; Start 08/23/16 at 09:00; Stop 08/26/16 at 08:59; Status DC Albumin Human 100 ml @ 100 mls/hr [id number] IV Last administered on 08/23/16 17:25 ; Start 08/23/16 at 09:00; Stop 08/23/16 at 16:59; Status DC Furosemide (Lasix) 40 mg [id number] IVP Last administered on 08/23/16 17:26; Start 08/23/16 at 09:00; Stop 08/23/16 at 16:01; Status DC Vitamin A/Vitamin D (Vitamin A & D Ointment) 1 james PRN Q1HR PRN TP SKIN PROTECTION Last administered on 08/31/16 17:52; Start 08/23/16 at 08:45 Cefepime HCl 1 gm/ Sodium Chloride 50 ml @ 100 mls/hr Q8HRS IV Last administered on 09/04/16 05:35; Start 08/23/16 at 14:00; Stop 09/04/16 at 07:57 ; Status DC Ondansetron HCl (Zofran) 4 mg PRN Q6HRS PRN IV NAUSEA/VOMITING Last administered on 08/23/16 19:27; Start 08/23/16 at 19:15 Alprazolam (Xanax) 0.25 mg TID PEG ; Start 08/24/16 at 09:00; Stop 08/24/16 at 09: 28; Status DC Diphenhydramine HCl (Benadryl) 25 mg HS PO ; Start 08/24/16 at 21:00; Stop at 21:00; Status DC Zolpidem Tartrate (Ambien) 5 mg PRN QHS PRN PO INSOMNIA Last administered on 21:43; Start 08/24/16 at 08:15 Alprazolam (Xanax) 0.5 mg TID PEG Last administered on 09/03/16 07:40; Start 08/24/16 at 09:00; Stop 09/03/16 at 10:57; Status DC Diphenhydramine HCl (Benadryl) 25 mg PRN QHS PRN PO sleep Last administered on 09/07/16 21:42; Start 08/24/16 at 21:00 Quetiapine Fumarate (SEROquel) 50 mg HS PO Last administered on 09/02/16 20:38 ; Start 08/24/16 at 21:00; Stop 09/03/16 at 20:55; Status DC Potassium Chloride 50 ml @ 50 mls/hr Q1H IV Last administered on 08/25/16 09:45 ; Start 08/25/16 at 08:00; Stop 08/25/16 at 09:59; Status DC Iohexol (Omnipaque 300 Mg/ml) 75 ml 1X ONCE IV Last administered on 08/25/16 15:45; Start 08/25/16 at 15:45; Stop 08/25/16 at 15:46; Status DC Iohexol (Omnipaque 240 Mg/ml) 50 ml 1X ONCE PO Last administered on 08/25/16 15:45; Start 08/25/16 at 15:45; Stop 08/25/16 at 15:46; Status DC Info (Do NOT chart on this entry -- for MONITORING) 1 each PRN DAILY PRN MC SEE COMMENTS; Start 08/25/16 at 16:00; Stop 08/27/16 at 15:59; Status DC Chlorhexidine Gluconate (Peridex) 15 ml BID SWSP Last administered on 08:17; Start 08/26/16 at 09:00; Stop 09/04/16 at 15:41; Status DC Potassium Chloride 50 ml @ 50 mls/hr Q1H IV ; Start 08/26/16 at 11:30; Stop at 11:30; Status DC Acetaminophen (Tylenol) 650 mg PRN Q6HRS PRN PEG MILD PAIN / TEMP Last administered on 09/03/16 07:40; Start 08/26/16 at 12:00; Stop 09/05/16 at 02:26 ; Status DC Lidocaine/Sodium Bicarbonate (Buffered Lidocaine 1%) 20 ml STK-MED ONCE IJ ; Start 08/26/16 at 14:50; Stop 08/26/16 at 14:51; Status DC Lidocaine/Sodium Bicarbonate (Buffered Lidocaine 1%) 20 ml 1X ONCE IJ Last administered on 08/26/16 15:42; Start 08/26/16 at 15:45; Stop 08/26/16 at 15:46; Status DC Lansoprazole (Prevacid) 30 mg BIDBFRMEAL FT Last administered on 09/08/16 08: 21; Start 08/27/16 at 17:30 Potassium Chloride 50 ml @ 50 mls/hr Q1H IV Last administered on 08/27/16 13:23 ; Start 08/27/16 at 13:00; Stop 08/27/16 at 14:59; Status DC Alteplase, Recombinant 5 mg/ Sterile Water 50 ml @ 0 mls/hr 1X ONCE INT CAT Last administered on 08/28/16 15:03; Start 08/28/16 at 10:45; Stop 08/28/16 at 10:46; Status DC Ferrous Sulfate 300 mg DAILY FT Last administered on 09/08/16 08:21; Start 03/07 at 09:00 Alteplase, Recombinant 5 mg/ Sterile Water 50 ml @ 0 mls/hr 1X ONCE INT CAT Last administered on 08/29/16 11:00; Start 08/29/16 at 11:00; Stop 08/29/16 at 11:01; Status DC Oxycodone/ Acetaminophen (Percocet 5/325) 1 tab PRN BID PRN PO PAIN Last administered on 09/02/16 10:36; Start 08/29/16 at 11:45; Stop 09/02/16 at 10:45 ; Status DC Metronidazole (Flagyl) 500 mg Q12HR PEG Last administered on 09/04/16 21:26; Start 08/30/16 at 09:00; Stop 09/05/16 at 02:26; Status DC Oxycodone HCl (Roxicodone) 10 mg Q4HRS PRN PO PAIN Last administered on 06:32; Start 08/30/16 at 15:15; Stop 09/02/16 at 10:45; Status DC Cholestyramine Resin (Questran Light) 4 gm QIDPMEDS PO Last administered on 18:18; Start 08/31/16 at 10:00; Stop 09/06/16 at 07:25; Status DC Diphenhydramine HCl (Benadryl) 25 mg PRN QHS PRN PO INSOMNIA; Start 08/31/16 at 10:30; Stop 09/03/16 at 10:57; Status DC Oxycodone HCl (Roxicodone) 5 mg Q4HRS PRN PO PAIN Last administered on 08:05; Start 09/02/16 at 10:45; Stop 09/04/16 at 15:42; Status DC Oxycodone HCl (Roxicodone) 10 mg Q4HRS PRN PO PAIN Last administered on 17:52; Start 09/02/16 at 11:00; Stop 09/04/16 at 15:42; Status DC Lactobacillus Acidophilus (Bacid, Jesi-Bid) 1 tab TIDWMEALS PO Last administered on 09/08/16 08:21; Start 09/03/16 at 08:00 Cholestyramine Resin (Questran Light) 4 gm BID@1000,2100 PEG ; Start 09/03/16 at 10:00; Stop 09/03/16 at 10:57; Status DC Alprazolam (Xanax) 0.5 mg QID PEG Last administered on 09/04/16 21:26; Start 09/03/16 at 13:00; Stop 09/05/16 at 02:26; Status DC Sertraline HCl (Zoloft) 25 mg QHS PO Last administered on 09/07/16 21:43; Start 09/03/16 at 21:00 Ibuprofen (Motrin) 600 mg Q8H PO Last administered on 09/06/16 18:38; Start at 11:15 Quetiapine Fumarate (SEROquel) 50 mg DAILY PO Last administered on 09/08/16 08 :21; Start 09/04/16 at 09:00 Cefazolin Sodium 2 gm/Sodium Chloride 50 ml @ 100 mls/hr Q8HRS IV Last administered on 09/08/16 05:04; Start 09/04/16 at 08:00 Potassium Chloride (KCl Oral Soln) 40 meq PRN Q2HR PRN PO HYPOKALEMIA PER ICU PROTOCOL; Start 09/04/16 at 08:45 Potassium Chloride (KCl Oral Soln) 40 meq PRN Q2HR PRN PO HYPOKALEMIA PER ICU PROTOCOL; Start 09/04/16 at 08:45 Barium Sulfate (Varibar Thin Liquid Apple) 148 gm 1X ONCE PO Last administered on 09/04/16 11:20; Start 09/04/16 at 11:15; Stop 09/04/16 at 11:16 ; Status DC Oxycodone HCl (Roxicodone) 10 mg Q5H PRN PO PAIN Last administered on 08:22; Start 09/04/16 at 17:00 Oxycodone HCl (Roxicodone) 5 mg Q5H PRN PO PAIN Last administered on 09/05/16 16:40; Start 09/04/16 at 17:00 Acetaminophen (Tylenol) 650 mg PRN Q6HRS PRN PO MILD PAIN / TEMP; Start at 02:30 Alprazolam (Xanax) 0.5 mg QID PO Last administered on 09/08/16 08:21; Start at 09:00 Metronidazole (Flagyl) 500 mg Q12HR PO Last administered on 09/05/16 20:51; Start 09/05/16 at 09:00; Stop 09/06/16 at 07:25; Status DC Active Scripts Active Reported No Known Medications Prior To Admisstion (Info) Each 1 Each Vitals/I & O Vital Sign - Last 24 Hours 09/07/16 09/07/16 09/07/16 09/07/16 11:00 11:47 12:24 15:00 Temp 98.1 98.1 Pulse 97 104 Resp 20 20 B/P (MAP) 133/89 (104) 129/85 (100) Pulse Ox 95 98 100 O2 Delivery Tracheal Collar Tracheal Collar AP NEB Tracheal Collar O2 Flow Rate 8.0 8.0 8.0 8.0 09/07/16 09/07/16 09/07/16 09/07/16 16:32 17:08 19:22 19:30 Temp 99.6 99.6 Pulse 104 Resp 16 B/P (MAP) 120/80 (93) Pulse Ox 99 95 O2 Delivery AP NEB Tracheal Collar Tracheal Collar Trach Collar O2 Flow Rate 8.0 8.0 7.0 09/07/16 09/07/16 09/07/16 09/07/16 19:56 19:56 21:43 22:00 Temp 99.7 99.7 Pulse 102 Resp 18 16 B/P (MAP) 137/92 (107) Pulse Ox 95 100 O2 Delivery AP NEB AP NEB Tracheal Collar O2 Flow Rate 8.0 8.0 7.0 09/08/16 09/08/16 09/08/16 09/08/16 02:47 03:00 03:47 06:00 Temp 98.6 98.3 98.6 98.3 Pulse 100 93 Resp 18 18 18 18 B/P (MAP) 121/78 (92) 137/91 (106) Pulse Ox 100 95 O2 Delivery Tracheal Collar Tracheal Collar Tracheal Collar O2 Flow Rate 8.0 8.0 09/08/16 09/08/16 09/08/16 09/08/16 07:44 08:00 08:22 10:06 Pulse Ox 99 98 96 O2 Delivery Trach Collar Tracheal Collar Tracheal Collar Tracheal Collar O2 Flow Rate 8.0 8.0 8.0 8.0 Intake and Output 09/07/16 09/07/16 09/08/16 14:59 22:59 06:59 Intake Total 320 ml Output Total 450 ml 675 ml 1075 ml Balance -450 ml -675 ml -755 ml Nutrition Consultation Dietary Evaluation: Recommendations by RD: Increase Calorie Intake, Protein supplementation Comments: -Pt refuses to drink the boost plus protein shakes. Tried the boost breeze protein shakes and agrees. Add orange/greene Boost Breeze TID (250 calories/9 grams protein) -D/c the boost pudding, pt refuses -provided alternate menu, pt planning to update food preferences Expected Outcomes/Goals: meet 75% estimated nutrition needs- met Interpretation of weight loss: >7.5% in 3 months Malnutrition Findings: Reduced Manager Decision Support Strength: N/A Reduced Manager Decision Support Strength (Non-Sev: N/A Malnutrition related to morbid: No Weight Status: Overweight Fluid Accumulation (N/A): N/A EPHRAIM VALADEZ MD September 08, 2016 10:53
[2016-09-08 11:00] VITALS: BP 117/69
[2016-09-08 14:30] VITALS: BP 118/79
[2016-09-08 18:57] VITALS: BP 130/78
[2016-09-08] MEDS: ZOLPIDEM 5 MG TABLET. PO PRN (20:58)
[2016-09-08] MEDS: SERTRALINE 25 MG TABLET. PO SCH (20:59)
[2016-09-08] MEDS: diphenhydrAMINE HCL 25 MG CAPSULE PO PRN (21:01)
[2016-09-08 23:59] VITALS: BP 110/64
[2016-09-09] MEDS: oxyCODONE IR 5 MG TABLET PO PRN ×5 (00:16→20:50)
[2016-09-09 03:59] VITALS: BP 120/80
[2016-09-09] MEDS: IBUPROFEN 600 MG TABLET. PO SCH ×3 (05:25→20:47)
[2016-09-09 07:00] VITALS: BP 121/76
[2016-09-09] MEDS: BUDESONIDE 0.5 MG/2 ML NEBU. NEB SCH ×2 (07:57→19:08)
[2016-09-09] MEDS: IPRATRPIUM/ALBUTEROL 0.5/2.5MG 3 ML NEBU. NEB SCH ×4 (07:57→19:08)
[2016-09-09] MEDS: QUEtiapine 25 MG TABLET. PO SCH (08:30)
[2016-09-09] MEDS: ALPRAZolam 0.5 MG TABLET PO SCH ×4 (08:30→20:47)
[2016-09-09] MEDS: LANSOPRAZOLE 30 MG TAB.RAP.DR FT SCH ×2 (08:30→17:26)
[2016-09-09] MEDS: LACTOBACILLUS ACIDOPH & BULGAR 1 TABLET. PO SCH ×3 (08:30→17:26)
[2016-09-09] MEDS: FERROUS SULFATE ORAL 300 MG/5 ML SOLUTION. FT SCH (08:30)
[2016-09-09] MEDS: NYSTATIN TOPICAL POWDER 15GM BOTTLE. TP SCH ×2 (09:00→20:47)
--- NOTE | 2016-09-09 10:02 | PDOC ---
PROGRESS NOTES Chief Complaint Chief Complaint Sepsis Acute hypoxic respir failure ASSESSMENT AND PLAN: 1. Sepsis: resolved 2. 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 MSSA. on cefepime (to cover E.coli as well). Abx rx until 09/19 3. PNA: septic emboli w/cavitary lesions. sputum with heavy growth E.coli. 4. 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 rpt CT chest on 08/31 with improvement. 5. Acute respir failure: traced, PM valve, downsizing trach per pulmonology 6. Diarrhea: C.diff neg. prob due to TF - changed. probiotics 7. Anemia: severe, recurrent: multifactorial, incl severe inflammation, HCV toxicity. inflammation confirmed by iron studies. b12/folate WNL. on daily low dose Fe 8. Thrombocytopenia: 2/2 infection, now resolved. monitor 9. [place]A: resolved 10. Hep C: new dx during current admit. F/U on O/P basis for rx 11. Polysubstance abuse: wean narcotics: oxy5 q4 -> q5 PRN. add adjunct NSAIDs, heat. 12. Depression: increase xanax to qid PRN. start Zoloft 13. Malnutrition: severe, POA, weight loss prior to admit, albumin critically low. suspect large component of inflammation as well. wean peg feeds, until full PO established History of Present Illness History of Present Illness abd discomfort, no pain. in good spirits Vitals Vitals Vital Signs Date Time Temp Pulse Resp B/P (MAP) Pulse Ox O2 Delivery O2 Flow Rate FiO2 09/09/16 08:00 98 Tracheal Collar 8.0 09/09/16 07:00 97.6 84 20 121/76 (91) 97.6 Physical Exam General: Alert, Cooperative, No acute distress Heart: Normal S1, Normal S2, No murmurs Lungs: Other (decrease bs) Abdomen: Normal bowel sounds, Other (Hepatosplenomegaly present) Extremities: No cyanosis, Other (1+ edema) Skin: No breakdown, No significant lesion Comment Review of Relevant I have reviewed the following items shanta (where applicable) has been applied. Labs Laboratory Tests Test 09/08/16 05:15 White Blood Count 9.6 x10^3/uL (4.0-11.0) Red Blood Count 3.35 x10^6/uL (3.50-5.40) Hemoglobin 10.2 g/dL (12.0-15.5) Hematocrit 29.7 % (36.0-47.0) Mean Corpuscular Volume 89 fL (79-100) Mean Corpuscular Hemoglobin 31 pg (25-35) Mean Corpuscular Hemoglobin Concent 34 g/dL (31-37) Red Cell Distribution Width 17.8 % (11.5-14.5) Platelet Count 283 x10^3/uL (140-400) Neutrophils (%) (Auto) 69 % (31-73) Lymphocytes (%) (Auto) 23 % (24-48) Monocytes (%) (Auto) 6 % (0-9) Eosinophils (%) (Auto) 1 % (0-3) Basophils (%) (Auto) 1 % (0-3) Neutrophils # (Auto) 6.6 x10^3uL (1.8-7.7) Lymphocytes # (Auto) 2.2 x10^3/uL (1.0-4.8) Monocytes # (Auto) 0.6 x10^3/uL (0.0-1.1) Eosinophils # (Auto) 0.1 x10^3/uL (0.0-0.7) Basophils # (Auto) 0.1 x10^3/uL (0.0-0.2) Microbiology 08/12/16 Blood Fungal Culture - Preliminary, Resulted 08/12/16 Fungal Culture Result 1 - Preliminary, Resulted 08/26/16 Gram Stain - Final, Complete 08/22/16 Gram Stain - Final, Complete 08/31/16 Urine Culture - Final, Complete 08/31/16 Urine Culture Result 1 (JAMEY) - Final, Complete Medications Current Medications Amino Acids/ Glycerin/ Electrolytes 1,000 ml @ 100 mls/hr Q10H IV Last administered on 08/05/16 02:40; Start 08/02/16 at 03:00; Stop 08/05/16 at 08:50 ; Status DC Morphine Sulfate 2 mg PRN Q2HR PRN IV SEVERE PAIN Last administered on 11:59; Start 08/02/16 at 02:30; Stop 08/02/16 at 13:28; Status DC Daptomycin 220 mg/ Sodium Chloride 50 ml @ 100 mls/hr Q24H IV ; Start 08/02/16 at 09:15; Stop 08/02/16 at 15:58; Status DC Cefepime HCl 1 gm/ Sodium Chloride 50 ml @ 100 mls/hr Q12HR IV Last administered on 08/04/16 08:10; Start 08/02/16 at 10:00; Stop 08/04/16 at 10:33 ; Status DC Daptomycin 220 mg/ Sodium Chloride 50 ml @ 100 mls/hr ONCE ONCE IV ; Start at 10:00; Stop 08/02/16 at 10:29; Status Cancel Potassium Chloride (Klor-Con) 40 meq 1X ONCE PO Last administered on 10:17; Start 08/02/16 at 09:45; Stop 08/02/16 at 09:46; Status DC Daptomycin 220 mg/ Sodium Chloride 50 ml @ 100 mls/hr Q24H IV Last administered on 08/03/16 09:43; Start 08/02/16 at 10:15; Stop 08/03/16 at 10:29 ; Status DC Potassium Chloride (Klor-Con) 40 meq 1X ONCE PO Last administered on 12:57; Start 08/02/16 at 12:30; Stop 08/02/16 at 12:36; Status DC Morphine Sulfate 5 mg PRN Q2HRS PRN IV MODERATE TO SEVERE PAIN Last administered on 08/26/16 16:15; Start 08/02/16 at 13:30; Stop 08/26/16 at 17:31; Status DC Morphine Sulfate 8 mg PRN Q2HRS PRN IV MODERATE TO SEVERE PAIN Last administered on 08/04/16 14:58; Start 08/02/16 at 13:30; Stop 08/26/16 at 17:31 ; Status DC Acetaminophen (Tylenol) 650 mg PRN Q6HRS PRN PO TEMP GREATER THAN 100.4 Last administered on 08/26/16 00:24; Start 08/02/16 at 14:45; Stop 08/26/16 at 17:31; Status DC Lactated Ringer's 1,000 ml @ 50 mls/hr Q20H IV ; Start 08/05/16 at 07:00; Stop 08/05/16 at 18:13; Status DC Daptomycin 220 mg/ Sodium Chloride 50 ml @ 100 mls/hr Q24H IV ; Start 08/03/16 at 11:00; Status Cancel Potassium Chloride (Klor-Con) 40 meq 1X ONCE PO Last administered on 17:41; Start 08/02/16 at 17:15; Stop 08/02/16 at 17:18; Status DC Potassium Chloride (Klor-Con) 40 meq BIDWMEALS PO ; Start 08/03/16 at 08:00; Stop 08/03/16 at 11:08; Status DC Morphine Sulfate 5 mg 1X ONCE IV Last administered on 08/02/16 21:45; Start 08/02/16 at 21:30; Stop 08/02/16 at 21:33; Status DC Lorazepam (Ativan) 1 mg 1X ONCE IV Last administered on 08/02/16 21:30; Start 08/02/16 at 21:30; Stop 08/02/16 at 21:33; Status DC Acetaminophen (Acetaminophen Supp) 650 mg PRN Q6HRS PRN [place] MILD PAIN / TEMP Last administered on 08/13/16 03:13; Start 08/03/16 at 01:15; Stop 08/26/16 at 17:31; Status DC Albuterol/ Ipratropium (Duoneb) 3 ml RTQID NEB Last administered on 09/09/16 07:57; Start 08/03/16 at 08:00 Budesonide (Pulmicort) 0.5 mg RTBID NEB Last administered on 09/09/16 07:57; Start 08/03/16 at 08:00 Pantoprazole Sodium (Protonix Vial) 40 mg 1X ONCE IVP Last administered on 10:06; Start 08/03/16 at 08:00; Stop 08/03/16 at 08:01; Status DC Daptomycin 320 mg/ Sodium Chloride 50 ml @ 100 mls/hr Q24H IV Last administered on 08/04/16 10:03; Start 08/04/16 at 10:00; Stop 08/04/16 at 10:33 ; Status DC Lorazepam (Ativan) 0.5 mg PRN Q6HRS PRN IV ANXIETY / AGITATION Last administered on 08/04/16 09:12; Start 08/03/16 at 11:15; Stop 08/07/16 at 11:02 ; Status DC Lorazepam (Ativan) 0.5 mg 1X ONCE IV Last administered on 08/04/16 10:00; Start 08/04/16 at 10:00; Stop 08/04/16 at 10:01; Status DC Morphine Sulfate 5 mg 1X ONCE IV Last administered on 08/04/16 10:00; Start 08/04/16 at 10:00; Stop 08/04/16 at 10:01; Status DC Lorazepam (Ativan) 0.5 mg PRN Q4HRS PRN IV ANXIETY / AGITATION Last administered on 08/25/16 02:29; Start 08/04/16 at 10:00; Stop 08/26/16 at 17:31; Status DC Nafcillin Sodium 2 gm/Sodium Chloride 100 ml @ 200 mls/hr Q4HRS IV Last administered on 08/09/16 10:10; Start 08/04/16 at 12:00; Stop 08/09/16 at 11:49 ; Status DC Propofol 100 ml @ As Directed STK-MED ONCE IV ; Start 08/04/16 at 16:10; Stop 08/04/16 at 16:11; Status DC Succinylcholine Chloride (Anectine) 200 mg STK-MED ONCE .ROUTE ; Start 08/04/16 at 16:14; Stop 08/04/16 at 16:15; Status DC Succinylcholine Chloride (Anectine) 200 mg 1X ONCE IV ; Start 08/04/16 at 16:45 ; Stop 08/04/16 at 16:46; Status DC Propofol 100 ml @ 0 mls/hr CONT PRN IV SEE I/O RECORD Last administered on 08/17 10:18; Start 08/04/16 at 16:45; Stop 08/26/16 at 17:31; Status DC Lorazepam (Ativan) 0.5 mg 1X ONCE IV Last administered on 08/04/16 16:45; Start 08/04/16 at 16:45; Stop 08/04/16 at 16:46; Status DC Morphine Sulfate 5 mg 1X ONCE IV Last administered on 08/04/16 16:44; Start 08/04/16 at 16:45; Stop 08/04/16 at 16:46; Status DC Fentanyl Citrate 30 ml @ 0 mls/hr CONT PRN IV PROTOCOL Last administered on 07:32; Start 08/04/16 at 16:45; Stop 09/02/16 at 10:45; Status DC Chlorhexidine Gluconate (Peridex) 15 ml BID MM Last administered on 08/17/16 10:18; Start 08/04/16 at 21:00; Stop 08/17/16 at 19:36; Status DC Famotidine (Pepcid) 20 mg BID IVP Last administered on 08/26/16 08:43; Start at 17:00; Stop 08/26/16 at 17:31; Status DC Sodium Chloride 1,000 ml @ 100 mls/hr Q10H IV Last administered on 08/07/16 04:35; Start 08/05/16 at 09:00; Stop 08/07/16 at 08:59; Status DC Succinylcholine Chloride (Anectine) 200 mg STK-MED ONCE .ROUTE ; Start 08/04/16 at 16:00; Stop 08/05/16 at 12:32; Status DC Lorazepam (Ativan) 2 mg 1X ONCE IV Last administered on 08/05/16 20:43; Start 08/05/16 at 21:00; Stop 08/05/16 at 21:01; Status DC Furosemide (Lasix) 40 mg 1X PRN PRN IV blood transfusion Last administered on 14:17; Start 08/06/16 at 08:00; Stop 08/07/16 at 07:59; Status DC Sodium Bicarbonate 50 meq 1X ONCE IV Last administered on 08/06/16 14:06; Start 08/06/16 at 12:00; Stop 08/06/16 at 12:01; Status DC Calcium Chloride 1,000 mg STK-MED ONCE IV ; Start 08/04/16 at 12:00; Stop at 15:13; Status DC Epinephrine HCl (Epinephrine Syringe) 2 mg STK-MED ONCE .ROUTE ; Start 08/04/16 at 12:00; Stop 08/06/16 at 15:13; Status DC Sodium Bicarbonate 100 meq STK-MED ONCE .ROUTE ; Start 08/04/16 at 12:00; Stop 08/06/16 at 15:13; Status DC Amino Acids/ Glycerin/ Electrolytes 1,000 ml @ 100 mls/hr Q10H IV Last administered on 08/08/16 12:33; Start 08/07/16 at 10:00; Stop 08/09/16 at 09:42 ; Status DC Enoxaparin Sodium (Lovenox 40mg Syringe) 40 mg Q24H SQ Last administered on 13:10; Start 08/07/16 at 13:00; Stop 08/10/16 at 10:43; Status DC Vecuronium [place] (Norcuron Bolus) 10 mg STK-MED ONCE IV ; Start 08/07/16 at 13 :56; Stop 08/07/16 at 13:57; Status DC Vecuronium [place] (Norcuron Bolus) 6 mg 1X ONCE IV Last administered on 14:06; Start 08/07/16 at 14:00; Stop 08/07/16 at 14:05; Status DC Sodium Bicarbonate 50 meq 1X ONCE IV Last administered on 08/08/16 11:46; Start 08/08/16 at 11:45; Stop 08/08/16 at 11:46; Status DC Nystatin (Nystop) 1 james BID TP Last administered on 09/08/16 20:59; Start at 21:00 Linezolid 300 ml @ 300 mls/hr Q12HR IV Last administered on 08/14/16 20:51; Start 08/09/16 at 09:00; Stop 08/15/16 at 07:21; Status DC Sodium Chloride 1,000 ml @ 20 mls/hr Q24H IV Last administered on 08/26/16 06: 41; Start 08/09/16 at 09:45; Stop 08/27/16 at 13:51; Status DC Sodium Bicarbonate 150 meq/Dextrose 1,150 ml @ 100 mls/hr 1X ONCE IV Last administered on 08/09/16 12:25; Start 08/09/16 at 11:30; Stop 08/09/16 at 22:59 ; Status DC Piperacillin Sod/ Tazobactam Sod (Zosyn Per Pharmacy) 1 each PRN DAILY PRN MC SEE COMMENTS; Start 08/09/16 at 12:00; Stop 08/14/16 at 07:40; Status DC Piperacillin Sod/ Tazobactam Sod 4.5 gm/Sodium Chloride 100 ml @ 200 mls/hr Q6HRS IV Last administered on 08/14/16 05:58; Start 08/09/16 at 12:30; Stop at 07:33; Status DC Vecuronium [place] (Norcuron Bolus) 5 mg PRN Q4HRS PRN IV INCREASED RESPIRATORY ,NOT RELI Last administered on 08/11/16 02:56; Start 08/09/16 at 13:30; Stop at 17:31; Status DC Potassium Chloride 50 ml @ 100 mls/hr Q1H IV ; Start 08/10/16 at 09:30; Stop at 10:59; Status Cancel Potassium Chloride 100 ml @ 100 mls/hr Q1H IV Last administered on 08/10/16 16:28; Start 08/10/16 at 10:30; Stop 08/10/16 at 14:29; Status DC Potassium Chloride (KCl Oral Soln) 60 meq 1X ONCE PEG Last administered on 11:16; Start 08/10/16 at 11:00; Stop 08/10/16 at 11:01; Status DC Sodium Bicarbonate 150 meq/Dextrose 1,150 ml @ 100 mls/hr [id number] IV Last administered on 08/10/16 11:14; Start 08/10/16 at 11:00; Stop 08/10/16 at 22:29 ; Status DC Enoxaparin Sodium (Lovenox 40mg Syringe) 40 mg Q24H SQ ; Start 08/10/16 at 13:00 ; Stop 08/10/16 at 13:00; Status DC Micafungin Sodium 100 mg/Dextrose 100 ml @ 100 mls/hr Q24H IV Last administered on 08/13/16 16:26; Start 08/11/16 at 16:00; Stop 08/14/16 at 07:33 ; Status DC Furosemide (Lasix) 40 mg 1X ONCE IVP Last administered on 08/12/16 08:38; Start 08/12/16 at 08:00; Stop 08/12/16 at 08:06; Status DC Morphine Sulfate 1 mg PRN Q10MIN PRN IV SEVERE PAIN; Start 08/13/16 at 07:00; Stop 08/14/16 at 06:59; Status DC Lactated Ringer's 1,000 ml @ 0 mls/hr Q0M IV ; Start 08/13/16 at 07:00; Stop at 18:59; Status DC Lidocaine HCl 2 ml PRN 1X PRN ID PRIOR TO IV START; Start 08/13/16 at 07:00; Stop 08/14/16 at 06:59; Status DC Hydromorphone HCl (Dilaudid) 0.5 mg PRN Q10MIN PRN IV SEV PAIN, Second choice; Start 08/13/16 at 07:00; Stop 08/14/16 at 06:59; Status DC Prochlorperazine Edisylate (Compazine) 5 mg PACU PRN PRN IV NAUSEA, MRX1; Start 08/13/16 at 07:00; Stop 08/14/16 at 06:59; Status DC Morphine Sulfate 1 mg PRN Q10MIN PRN IV SEVERE PAIN; Start 08/13/16 at 07:00; Stop 08/14/16 at 06:59; Status DC Lactated Ringer's 1,000 ml @ 0 mls/hr Q0M IV ; Start 08/13/16 at 07:00; Stop at 18:59; Status DC Lidocaine HCl 2 ml PRN 1X PRN ID PRIOR TO IV START; Start 08/13/16 at 07:00; Stop 08/14/16 at 06:59; Status DC Hydromorphone HCl (Dilaudid) 0.5 mg PRN Q10MIN PRN IV SEV PAIN, Second choice; Start 08/13/16 at 07:00; Stop 08/14/16 at 06:59; Status DC Prochlorperazine Edisylate (Compazine) 5 mg PACU PRN PRN IV NAUSEA, MRX1; Start 08/13/16 at 07:00; Stop 08/14/16 at 06:59; Status DC Potassium Chloride 50 ml @ 50 mls/hr Q1H IV Last administered on 08/13/16t 07: 57; Start 08/13/16 at 07:00; Stop 08/13/16 at 08:59; Status DC Rocuronium [place] (Zemuron) 50 mg STK-MED ONCE .ROUTE ; Start 08/13/16 at 12:50 ; Stop 08/13/16 at 12:51; Status DC Propofol 20 ml @ As Directed STK-MED ONCE IV ; Start 08/13/16 at 12:53; Stop at 12:54; Status DC Sevoflurane (Ultane) 30 ml STK-MED ONCE IH ; Start 08/13/16 at 14:04; Stop 08/13 at 14:05; Status DC Albumin Human 250 ml @ 100 mls/hr 1X ONCE IV Last administered on 08/13/16 23:38; Start 08/13/16 at 18:00; Stop 08/13/16 at 20:29; Status DC Albumin Human 500 ml @ 100 mls/hr 1X ONCE IV Last administered on 08/13/16 18:15; Start 08/13/16 at 18:00; Stop 08/13/16 at 22:59; Status DC Potassium Chloride 50 ml @ 50 mls/hr Q1H IV Last administered on 08/14/16 10: 46; Start 08/14/16 at 08:00; Stop 08/14/16 at 09:59; Status DC Nafcillin Sodium 2 gm/Sodium Chloride 100 ml @ 200 mls/hr Q4HRS IV Last administered on 08/23/16 08:51; Start 08/14/16 at 08:00; Stop 08/23/16 at 10:44; Status DC Enoxaparin Sodium (Lovenox 40mg Syringe) 40 mg Q24H SQ Last administered on 08/25 12:44; Start 08/14/16 at 12:00; Stop 08/26/16 at 11:53; Status DC Potassium Chloride (KCl Oral Soln) 40 meq 1X ONCE PEG Last administered on 07:54; Start 08/16/16 at 07:00; Stop 08/16/16 at 07:01; Status DC Potassium Chloride (KCl Oral Soln) 40 meq 1X ONCE PEG Last administered on 14:01; Start 08/16/16 at 12:00; Stop 08/16/16 at 12:01; Status DC Magnesium Sulfate/ Dextrose 50 ml @ 25 mls/hr 1X ONCE IV Last administered on 08/16/16 17:14; Start 08/16/16 at 16:30; Stop 08/16/16 at 18:29; Status DC Potassium Chloride (Klor-Con) 40 meq 1X ONCE PO ; Start 08/17/16 at 13:30; Stop 08/17/16 at 13:31; Status Cancel Potassium Chloride (KCl Oral Soln) 40 meq 1X ONCE PO Last administered on 08/17 15:34; Start 08/17/16 at 13:30; Stop 08/17/16 at 14:27; Status DC Potassium Chloride 100 ml @ 100 mls/hr PRN Q1HR PRN IV HYPOKALEMIA PER ICU PROTOCOL; Start 08/17/16 at 13:30; Status Cancel Potassium Chloride 50 ml @ 25 mls/hr PRN Q2HR PRN IV HYPOKALEMIA PER ICU PROTOCOL Last administered on 08/21/16 13:29; Start 08/17/16 at 13:30; Stop 08/21 at 13:34; Status DC Potassium Chloride (Klor-Con) 40 meq PRN Q2HR PRN PO HYPOKALEMIA PER ICU PROTOCOL Last administered on 09/04/16 08:04; Start 08/17/16 at 13:30; Stop at 08:32; Status DC Potassium Chloride 100 ml @ 100 mls/hr PRN Q1HR PRN IV HYPOKALEMIA PER ICU PROTOCOL; Start 08/17/16 at 13:30; Stop 09/04/16 at 15:41; Status DC Potassium Chloride 50 ml @ 25 mls/hr PRN Q2HR PRN IV HYPOKALEMIA PER ICU PROTOCOL; Start 08/17/16 at 13:30; Stop 09/04/16 at 15:41; Status DC Potassium Chloride (Klor-Con) 40 meq PRN Q2HR PRN PO HYPOKALEMIA PER ICU PROTOCOL; Start 08/17/16 at 13:30; Stop 09/04/16 at 08:33; Status DC Potassium Chloride 100 ml @ 100 mls/hr PRN Q1HR PRN IV HYPOKALEMIA PER ICU PROTOCOL; Start 08/17/16 at 13:30; Status Cancel Potassium Chloride 50 ml @ 25 mls/hr PRN Q2HR PRN IV HYPOKALEMIA PER ICU PROTOCOL Last administered on 08/27/16 14:37; Start 08/17/16 at 14:00; Stop at 15:41; Status DC Magnesium Sulfate/ Dextrose 100 ml @ 50 mls/hr PRN DAILY PRN IV HYPOMAGNESIA PER ICU PROTOCOL Last administered on 08/20/16 22:26; Start 08/18/16 at 09:00; Stop 09/04/16 at 15:41; Status DC Potassium Phos/ Sodium Phos (Phos-Nak) 1 pkt BID PO ; Start 08/17/16 at 21:00; Stop 08/18/16 at 09:01; Status DC Sodium Phosphate 40 mmol/Dextrose 263.3333 ml @ 62.5 mls/hr PRN 1X PRN IV HYPOPHOSP PER ICU PROTOCOL; Start 08/17/16 at 13:30; Status Cancel Potassium Chloride (KCl Oral Soln) 40 meq 1X ONCE PEG Last administered on 08/19 07:57; Start 08/19/16 at 07:45; Stop 08/19/16 at 07:46; Status DC Potassium Chloride (KCl Oral Soln) 40 meq 1X ONCE PEG Last administered on 08/19 11:36; Start 08/19/16 at 12:00; Stop 08/19/16 at 12:01; Status DC Alprazolam (Xanax) 0.5 mg 1X ONCE PO Last administered on 08/19/16 11:35; Start 08/19/16 at 11:15; Stop 08/19/16 at 11:16; Status DC Alprazolam (Xanax) 0.5 mg TID PEG Last administered on 08/23/16 20:34; Start at 15:00; Stop 08/24/16 at 08:11; Status DC Potassium Chloride 50 ml @ 50 mls/hr Q1H IV Last administered on 08/22/16 09:40 ; Start 08/22/16 at 08:30; Stop 08/22/16 at 10:29; Status DC Haloperidol Lactate (Haldol) 5 mg PRN Q6HRS PRN IVP AGITATION Last administered on 08/31/16 02:14; Start 08/22/16 at 09:15; Stop 09/03/16 at 10:57 ; Status DC Haloperidol Lactate (Haldol) 2 mg 1X ONCE IVP ; Start 08/22/16 at 09:15; Stop at 09:27; Status DC Magnesium Sulfate/ Dextrose 100 ml @ 50 mls/hr DAILY IV Last administered on 10:00; Start 08/23/16 at 09:00; Stop 08/26/16 at 08:59; Status DC Albumin Human 100 ml @ 100 mls/hr [id number] IV Last administered on 08/23/16 17:25 ; Start 08/23/16 at 09:00; Stop 08/23/16 at 16:59; Status DC Furosemide (Lasix) 40 mg [id number] IVP Last administered on 08/23/16 17:26; Start 08/23/16 at 09:00; Stop 08/23/16 at 16:01; Status DC Vitamin A/Vitamin D (Vitamin A & D Ointment) 1 james PRN Q1HR PRN TP SKIN PROTECTION Last administered on 08/31/16 17:52; Start 08/23/16 at 08:45 Cefepime HCl 1 gm/ Sodium Chloride 50 ml @ 100 mls/hr Q8HRS IV Last administered on 09/04/16 05:35; Start 08/23/16 at 14:00; Stop 09/04/16 at 07:57 ; Status DC Ondansetron HCl (Zofran) 4 mg PRN Q6HRS PRN IV NAUSEA/VOMITING Last administered on 08/23/16 19:27; Start 08/23/16 at 19:15 Alprazolam (Xanax) 0.25 mg TID PEG ; Start 08/24/16 at 09:00; Stop 08/24/16 at 09: 28; Status DC Diphenhydramine HCl (Benadryl) 25 mg HS PO ; Start 08/24/16 at 21:00; Stop at 21:00; Status DC Zolpidem Tartrate (Ambien) 5 mg PRN QHS PRN PO INSOMNIA Last administered on 20:58; Start 08/24/16 at 08:15 Alprazolam (Xanax) 0.5 mg TID PEG Last administered on 09/03/16 07:40; Start 08/24/16 at 09:00; Stop 09/03/16 at 10:57; Status DC Diphenhydramine HCl (Benadryl) 25 mg PRN QHS PRN PO sleep Last administered on 09/08/16 21:01; Start 08/24/16 at 21:00 Quetiapine Fumarate (SEROquel) 50 mg HS PO Last administered on 09/02/16 20:38 ; Start 08/24/16 at 21:00; Stop 09/03/16 at 20:55; Status DC Potassium Chloride 50 ml @ 50 mls/hr Q1H IV Last administered on 08/25/16 09:45 ; Start 08/25/16 at 08:00; Stop 08/25/16 at 09:59; Status DC Iohexol (Omnipaque 300 Mg/ml) 75 ml 1X ONCE IV Last administered on 08/25/16 15:45; Start 08/25/16 at 15:45; Stop 08/25/16 at 15:46; Status DC Iohexol (Omnipaque 240 Mg/ml) 50 ml 1X ONCE PO Last administered on 08/25/16 15:45; Start 08/25/16 at 15:45; Stop 08/25/16 at 15:46; Status DC Info (Do NOT chart on this entry -- for MONITORING) 1 each PRN DAILY PRN MC SEE COMMENTS; Start 08/25/16 at 16:00; Stop 08/27/16 at 15:59; Status DC Chlorhexidine Gluconate (Peridex) 15 ml BID SWSP Last administered on 08:17; Start 08/26/16 at 09:00; Stop 09/04/16 at 15:41; Status DC Potassium Chloride 50 ml @ 50 mls/hr Q1H IV ; Start 08/26/16 at 11:30; Stop at 11:30; Status DC Acetaminophen (Tylenol) 650 mg PRN Q6HRS PRN PEG MILD PAIN / TEMP Last administered on 09/03/16 07:40; Start 08/26/16 at 12:00; Stop 09/05/16 at 02:26 ; Status DC Lidocaine/Sodium Bicarbonate (Buffered Lidocaine 1%) 20 ml STK-MED ONCE IJ ; Start 08/26/16 at 14:50; Stop 08/26/16 at 14:51; Status DC Lidocaine/Sodium Bicarbonate (Buffered Lidocaine 1%) 20 ml 1X ONCE IJ Last administered on 08/26/16 15:42; Start 08/26/16 at 15:45; Stop 08/26/16 at 15:46; Status DC Lansoprazole (Prevacid) 30 mg BIDBFRMEAL FT Last administered on 09/09/16 08: 30; Start 08/27/16 at 17:30 Potassium Chloride 50 ml @ 50 mls/hr Q1H IV Last administered on 08/27/16 13:23 ; Start 08/27/16 at 13:00; Stop 08/27/16 at 14:59; Status DC Alteplase, Recombinant 5 mg/ Sterile Water 50 ml @ 0 mls/hr 1X ONCE INT CAT Last administered on 08/28/16 15:03; Start 08/28/16 at 10:45; Stop 08/28/16 at 10:46; Status DC Ferrous Sulfate 300 mg DAILY FT Last administered on 09/09/16 08:30; Start 03/07 at 09:00 Alteplase, Recombinant 5 mg/ Sterile Water 50 ml @ 0 mls/hr 1X ONCE INT CAT Last administered on 08/29/16 11:00; Start 08/29/16 at 11:00; Stop 08/29/16 at 11:01; Status DC Oxycodone/ Acetaminophen (Percocet 5/325) 1 tab PRN BID PRN PO PAIN Last administered on 09/02/16 10:36; Start 08/29/16 at 11:45; Stop 09/02/16 at 10:45 ; Status DC Metronidazole (Flagyl) 500 mg Q12HR PEG Last administered on 09/04/16 21:26; Start 08/30/16 at 09:00; Stop 09/05/16 at 02:26; Status DC Oxycodone HCl (Roxicodone) 10 mg Q4HRS PRN PO PAIN Last administered on 06:32; Start 08/30/16 at 15:15; Stop 09/02/16 at 10:45; Status DC Cholestyramine Resin (Questran Light) 4 gm QIDPMEDS PO Last administered on 18:18; Start 08/31/16 at 10:00; Stop 09/06/16 at 07:25; Status DC Diphenhydramine HCl (Benadryl) 25 mg PRN QHS PRN PO INSOMNIA; Start 08/31/16 at 10:30; Stop 09/03/16 at 10:57; Status DC Oxycodone HCl (Roxicodone) 5 mg Q4HRS PRN PO PAIN Last administered on 08:05; Start 09/02/16 at 10:45; Stop 09/04/16 at 15:42; Status DC Oxycodone HCl (Roxicodone) 10 mg Q4HRS PRN PO PAIN Last administered on 17:52; Start 09/02/16 at 11:00; Stop 09/04/16 at 15:42; Status DC Lactobacillus Acidophilus (Bacid, Jesi-Bid) 1 tab TIDWMEALS PO Last administered on 09/09/16 08:30; Start 09/03/16 at 08:00 Cholestyramine Resin (Questran Light) 4 gm BID@1000,2100 PEG ; Start 09/03/16 at 10:00; Stop 09/03/16 at 10:57; Status DC Alprazolam (Xanax) 0.5 mg QID PEG Last administered on 09/04/16 21:26; Start 09/03/16 at 13:00; Stop 09/05/16 at 02:26; Status DC Sertraline HCl (Zoloft) 25 mg QHS PO Last administered on 09/08/16 20:59; Start 09/03/16 at 21:00 Ibuprofen (Motrin) 600 mg Q8H PO Last administered on 09/09/16 05:25; Start at 11:15 Quetiapine Fumarate (SEROquel) 50 mg DAILY PO Last administered on 09/09/16 08 :30; Start 09/04/16 at 09:00 Cefazolin Sodium 2 gm/Sodium Chloride 50 ml @ 100 mls/hr Q8HRS IV Last administered on 09/09/16 05:26; Start 09/04/16 at 08:00 Potassium Chloride (KCl Oral Soln) 40 meq PRN Q2HR PRN PO HYPOKALEMIA PER ICU PROTOCOL; Start 09/04/16 at 08:45 Potassium Chloride (KCl Oral Soln) 40 meq PRN Q2HR PRN PO HYPOKALEMIA PER ICU PROTOCOL; Start 09/04/16 at 08:45 Barium Sulfate (Varibar Thin Liquid Apple) 148 gm 1X ONCE PO Last administered on 09/04/16 11:20; Start 09/04/16 at 11:15; Stop 09/04/16 at 11:16 ; Status DC Oxycodone HCl (Roxicodone) 10 mg Q5H PRN PO PAIN Last administered on 05:26; Start 09/04/16 at 17:00 Oxycodone HCl (Roxicodone) 5 mg Q5H PRN PO PAIN Last administered on 09/05/16 16:40; Start 09/04/16 at 17:00 Acetaminophen (Tylenol) 650 mg PRN Q6HRS PRN PO MILD PAIN / TEMP; Start at 02:30 Alprazolam (Xanax) 0.5 mg QID PO Last administered on 09/09/16 08:30; Start at 09:00 Metronidazole (Flagyl) 500 mg Q12HR PO Last administered on 09/05/16 20:51; Start 09/05/16 at 09:00; Stop 09/06/16 at 07:25; Status DC Active Scripts Active Reported No Known Medications Prior To Admisstion (Info) Each 1 Each Vitals/I & O Vital Sign - Last 24 Hours 09/08/16 09/08/16 09/08/16 09/08/16 11:00 12:23 13:47 14:30 Temp 98.2 98.3 98.2 98.3 Pulse 99 101 Resp 18 18 B/P (MAP) 117/69 (85) 118/79 (92) Pulse Ox 99 99 97 96 O2 Delivery Tracheal Collar Tracheal Collar Tracheal Collar Tracheal Collar O2 Flow Rate 8.0 8.0 8.0 8.0 09/08/16 09/08/16 09/08/16 09/08/16 15:06 16:35 18:57 19:37 Temp 99.2 99.2 Pulse 104 Resp 16 B/P (MAP) 130/78 (95) Pulse Ox 95 100 96 100 O2 Delivery Tracheal Collar Tracheal Collar Tracheal Collar O2 Flow Rate 8.0 8.0 7.0 8.0 09/08/16 09/08/16 09/08/16 09/09/16 20:15 20:25 23:59 03:59 Temp 97.8 98.0 97.8 98.0 Pulse 90 88 Resp 16 16 B/P (MAP) 110/64 (79) 120/80 (93) Pulse Ox 100 98 O2 Delivery Trach Collar Tracheal Collar Tracheal Collar Tracheal Collar O2 Flow Rate 8.0 7.0 7.0 09/09/16 09/09/16 09/09/16 07:00 08:00 08:00 Temp 97.6 97.6 Pulse 84 Resp 20 B/P (MAP) 121/76 (91) Pulse Ox 97 98 O2 Delivery Tracheal Collar Trach Collar Tracheal Collar O2 Flow Rate 7.0 8.0 8.0 Intake and Output 09/08/16 09/08/16 09/09/16 15:00 23:00 07:00 Intake Total 120 ml 440 ml Output Total 700 ml Balance -580 ml 440 ml Nutrition Consultation Dietary Evaluation: Recommendations by RD: Increase Calorie Intake, Protein supplementation Comments: -Pt refuses to drink the boost plus protein shakes. Tried the boost breeze protein shakes and agrees. Add orange/greene Boost Breeze TID (250 calories/9 grams protein) -D/c the boost pudding, pt refuses -provided alternate menu, pt planning to update food preferences Expected Outcomes/Goals: meet 75% estimated nutrition needs- met Interpretation of weight loss: >7.5% in 3 months Malnutrition Findings: Reduced [employer] Manager Strength: N/A Reduced [employer] Manager Strength (Non-Sev: N/A Malnutrition related to morbid: No Weight Status: Overweight Fluid Accumulation (N/A): N/A EPHRAIM VALADEZ MD September 09, 2016 10:02
[2016-09-09 11:00] VITALS: BP 112/66
--- NOTE | 2016-09-09 12:46 | PDOC ---
Subjective: Subjective: Eating and stooling w/o issue. Abd looks bloated although no change she can discern from previous weeks. Says staff commenting on this. Perhaps a little abd discomfort when pressed. Swelling in feet improved. Still worried about PEG removal. Objective: Vital Signs: Vital Signs Date Time Temp Pulse Resp B/P (MAP) Pulse Ox O2 Delivery O2 Flow Rate FiO2 09/09/16 12:18 99 Tracheal Collar 8.0 09/09/16 11:00 97.4 54 21 112/66 (81) 97.4 Imaging: Last CT noted less pelvic fluid, noted anasarca. PE: GEN: NAD, up to chair LUNGS: trach HEART: RRR ABD: perhaps some distention, looks stable to me, non-tender, PEG NEURO/PSYCH: A & O 3 A/P: S/p PEG 08/13/16, tolerating PO Bloating Hep C -- Can safely remove PEG 4-6 weeks after placement. Will review bloating w/ Dr. Peraza - ?abd US ORQUIDEA ELIZABETH September 09, 2016 12:46
[2016-09-09 15:30] VITALS: BP 115/61
--- NOTE | 2016-09-09 15:59 | PDOC ---
PULMONARY PROGRESS NOTES Subjective tolerates PM valve well s/p bilateral chest tubes, with removal s/p intra pleural TPA left side 08/27, 08/28, 08/29 Vitals Vital Signs Date Time Temp Pulse Resp B/P (MAP) Pulse Ox O2 Delivery O2 Flow Rate FiO2 09/09/16 15:41 99 Tracheal Collar 8.0 09/09/16 15:30 97.6 82 22 115/61 (79) 97.6 Comments ros as mentioned as above other sys otherwise neg ROS: No Chest Pain, No Abdominal Pain General: Alert, No acute distress HEENT: Other (nc at perrl. poor dentition, nose clear) Lungs: Other (decrease bs) Cardiovascular: S1, S2, Other Abdomen: Soft, Non-tender, Other (no mass) Neuro Exam: Alert, Oriented Extremities: Other (edema) Skin: Warm Labs Laboratory Tests Test 09/08/16 05:15 White Blood Count 9.6 x10^3/uL (4.0-11.0) Red Blood Count 3.35 x10^6/uL (3.50-5.40) Hemoglobin 10.2 g/dL (12.0-15.5) Hematocrit 29.7 % (36.0-47.0) Mean Corpuscular Volume 89 fL (79-100) Mean Corpuscular Hemoglobin 31 pg (25-35) Mean Corpuscular Hemoglobin Concent 34 g/dL (31-37) Red Cell Distribution Width 17.8 % (11.5-14.5) Platelet Count 283 x10^3/uL (140-400) Neutrophils (%) (Auto) 69 % (31-73) Lymphocytes (%) (Auto) 23 % (24-48) Monocytes (%) (Auto) 6 % (0-9) Eosinophils (%) (Auto) 1 % (0-3) Basophils (%) (Auto) 1 % (0-3) Neutrophils # (Auto) 6.6 x10^3uL (1.8-7.7) Lymphocytes # (Auto) 2.2 x10^3/uL (1.0-4.8) Monocytes # (Auto) 0.6 x10^3/uL (0.0-1.1) Eosinophils # (Auto) 0.1 x10^3/uL (0.0-0.7) Basophils # (Auto) 0.1 x10^3/uL (0.0-0.2) Medications Active Scripts Medications Dose Route/Sig Days Date Category No Known Medications Prior To Admisstion (Info) Each 1 Each 08/06/16 Reported Comments cxr reviewed, 09/02 interval improvement in right-sided parenchymal opacities / volume loss Left base Impression . 1. Acute hypoxemic respiratory failure, multifactorial in etiology 2. bilateral loculated effusions, suspected empyema, s/p bilateral chest tubes , VERY LOW GLUCOSE(9), LOW PH , s/p TPA and removal of chest tubes 3. Bilateral pulmonary nodules with cavitation, due to septic emboli. 4. Endocarditis. right sided, improving vegetations 5. Anemia, 6. Intravenous drug abuse. 7. MSSA septicemia/pneumonia/ CHF Plan . T-shield 24 hrs/pm valve, will down size trach s/p removal of bilateral chest tube s/p intra pleural TPA left side Overall left empyema has sig. improved ,only small LL pockets. Trach secretions for c/s, E-coli, on antibiotic per ID, bronchodilators off lovenox, due to on/off anemia oral nutrition ANGIE CARBAJAL MD September 09, 2016 15:59
[2016-09-09 19:25] VITALS: BP 115/59
[2016-09-09] MEDS: SERTRALINE 25 MG TABLET. PO SCH (20:46)
[2016-09-09 23:25] VITALS: BP 113/68
[2016-09-10] MEDS: oxyCODONE IR 5 MG TABLET PO PRN ×5 (01:43→22:04)
[2016-09-10] MEDS ORDERED: ALTEPLASE 2 MG VIAL INT CAT ONE (02:15)
[2016-09-10 03:25] VITALS: BP 110/66
[2016-09-10] MEDS: IBUPROFEN 600 MG TABLET. PO SCH ×3 (03:44→21:18)
[2016-09-10] MEDS: LANSOPRAZOLE 30 MG TAB.RAP.DR FT SCH ×2 (06:37→17:02)
[2016-09-10] MEDS: IPRATRPIUM/ALBUTEROL 0.5/2.5MG 3 ML NEBU. NEB SCH ×4 (07:11→19:29)
[2016-09-10] MEDS: BUDESONIDE 0.5 MG/2 ML NEBU. NEB SCH ×2 (07:11→19:29)
[2016-09-10 07:50] VITALS: BP 111/76
[2016-09-10] MEDS: FERROUS SULFATE ORAL 300 MG/5 ML SOLUTION. FT SCH (08:46)
[2016-09-10] MEDS: LACTOBACILLUS ACIDOPH & BULGAR 1 TABLET. PO SCH ×3 (08:46→17:04)
[2016-09-10] MEDS: ALPRAZolam 0.5 MG TABLET PO SCH ×4 (08:47→21:19)
[2016-09-10] MEDS: QUEtiapine 25 MG TABLET. PO SCH (08:47)
[2016-09-10] MEDS: NYSTATIN TOPICAL POWDER 15GM BOTTLE. TP SCH ×2 (08:56→21:18)
[2016-09-10 11:01] VITALS: BP 116/67
--- NOTE | 2016-09-10 11:04 | PDOC ---
G I PROGRESS NOTE Subjective No GI complaints. Eating well. Physical Exam Abdomen benign. Review of Relevant I have reviewed the following items shanta (where applicable) has been applied. Labs Microbiology 08/12/16 Blood Fungal Culture - Preliminary, Resulted 08/12/16 Fungal Culture Result 1 - Preliminary, Resulted 08/26/16 Gram Stain - Final, Complete 08/22/16 Gram Stain - Final, Complete 08/31/16 Urine Culture - Final, Complete 08/31/16 Urine Culture Result 1 (JAMEY) - Final, Complete Medications Current Medications Amino Acids/ Glycerin/ Electrolytes 1,000 ml @ 100 mls/hr Q10H IV Last administered on 08/05/16 02:40; Start 08/02/16 at 03:00; Stop 08/05/16 at 08:50 ; Status DC Morphine Sulfate 2 mg PRN Q2HR PRN IV SEVERE PAIN Last administered on 11:59; Start 08/02/16 at 02:30; Stop 08/02/16 at 13:28; Status DC Daptomycin 220 mg/ Sodium Chloride 50 ml @ 100 mls/hr Q24H IV ; Start 08/02/16 at 09:15; Stop 08/02/16 at 15:58; Status DC Cefepime HCl 1 gm/ Sodium Chloride 50 ml @ 100 mls/hr Q12HR IV Last administered on 08/04/16 08:10; Start 08/02/16 at 10:00; Stop 08/04/16 at 10:33 ; Status DC Daptomycin 220 mg/ Sodium Chloride 50 ml @ 100 mls/hr ONCE ONCE IV ; Start at 10:00; Stop 08/02/16 at 10:29; Status Cancel Potassium Chloride (Klor-Con) 40 meq 1X ONCE PO Last administered on 10:17; Start 08/02/16 at 09:45; Stop 08/02/16 at 09:46; Status DC Daptomycin 220 mg/ Sodium Chloride 50 ml @ 100 mls/hr Q24H IV Last administered on 08/03/16 09:43; Start 08/02/16 at 10:15; Stop 08/03/16 at 10:29 ; Status DC Potassium Chloride (Klor-Con) 40 meq 1X ONCE PO Last administered on 12:57; Start 08/02/16 at 12:30; Stop 08/02/16 at 12:36; Status DC Morphine Sulfate 5 mg PRN Q2HRS PRN IV MODERATE TO SEVERE PAIN Last administered on 08/26/16 16:15; Start 08/02/16 at 13:30; Stop 08/26/16 at 17:31; Status DC Morphine Sulfate 8 mg PRN Q2HRS PRN IV MODERATE TO SEVERE PAIN Last administered on 08/04/16 14:58; Start 08/02/16 at 13:30; Stop 08/26/16 at 17:31 ; Status DC Acetaminophen (Tylenol) 650 mg PRN Q6HRS PRN PO TEMP GREATER THAN 100.4 Last administered on 08/26/16 00:24; Start 08/02/16 at 14:45; Stop 08/26/16 at 17:31; Status DC Lactated Ringer's 1,000 ml @ 50 mls/hr Q20H IV ; Start 08/05/16 at 07:00; Stop 08/05/16 at 18:13; Status DC Daptomycin 220 mg/ Sodium Chloride 50 ml @ 100 mls/hr Q24H IV ; Start 08/03/16 at 11:00; Status Cancel Potassium Chloride (Klor-Con) 40 meq 1X ONCE PO Last administered on 17:41; Start 08/02/16 at 17:15; Stop 08/02/16 at 17:18; Status DC Potassium Chloride (Klor-Con) 40 meq BIDWMEALS PO ; Start 08/03/16 at 08:00; Stop 08/03/16 at 11:08; Status DC Morphine Sulfate 5 mg 1X ONCE IV Last administered on 08/02/16 21:45; Start 08/02/16 at 21:30; Stop 08/02/16 at 21:33; Status DC Lorazepam (Ativan) 1 mg 1X ONCE IV Last administered on 08/02/16 21:30; Start 08/02/16 at 21:30; Stop 08/02/16 at 21:33; Status DC Acetaminophen (Acetaminophen Supp) 650 mg PRN Q6HRS PRN AK MILD PAIN / TEMP Last administered on 08/13/16 03:13; Start 08/03/16 at 01:15; Stop 08/26/16 at 17:31; Status DC Albuterol/ Ipratropium (Duoneb) 3 ml RTQID NEB Last administered on 09/10/16 07:11; Start 08/03/16 at 08:00 Budesonide (Pulmicort) 0.5 mg RTBID NEB Last administered on 09/10/16 07:11; Start 08/03/16 at 08:00 Pantoprazole Sodium (Protonix Vial) 40 mg 1X ONCE IVP Last administered on 10:06; Start 08/03/16 at 08:00; Stop 08/03/16 at 08:01; Status DC Daptomycin 320 mg/ Sodium Chloride 50 ml @ 100 mls/hr Q24H IV Last administered on 08/04/16 10:03; Start 08/04/16 at 10:00; Stop 08/04/16 at 10:33 ; Status DC Lorazepam (Ativan) 0.5 mg PRN Q6HRS PRN IV ANXIETY / AGITATION Last administered on 08/04/16 09:12; Start 08/03/16 at 11:15; Stop 08/07/16 at 11:02 ; Status DC Lorazepam (Ativan) 0.5 mg 1X ONCE IV Last administered on 08/04/16 10:00; Start 08/04/16 at 10:00; Stop 08/04/16 at 10:01; Status DC Morphine Sulfate 5 mg 1X ONCE IV Last administered on 08/04/16 10:00; Start 08/04/16 at 10:00; Stop 08/04/16 at 10:01; Status DC Lorazepam (Ativan) 0.5 mg PRN Q4HRS PRN IV ANXIETY / AGITATION Last administered on 08/25/16 02:29; Start 08/04/16 at 10:00; Stop 08/26/16 at 17:31; Status DC Nafcillin Sodium 2 gm/Sodium Chloride 100 ml @ 200 mls/hr Q4HRS IV Last administered on 08/09/16 10:10; Start 08/04/16 at 12:00; Stop 08/09/16 at 11:49 ; Status DC Propofol 100 ml @ As Directed STK-MED ONCE IV ; Start 08/04/16 at 16:10; Stop 08/04/16 at 16:11; Status DC Succinylcholine Chloride (Anectine) 200 mg STK-MED ONCE .ROUTE ; Start 08/04/16 at 16:14; Stop 08/04/16 at 16:15; Status DC Succinylcholine Chloride (Anectine) 200 mg 1X ONCE IV ; Start 08/04/16 at 16:45 ; Stop 08/04/16 at 16:46; Status DC Propofol 100 ml @ 0 mls/hr CONT PRN IV SEE I/O RECORD Last administered on 08/17 10:18; Start 08/04/16 at 16:45; Stop 08/26/16 at 17:31; Status DC Lorazepam (Ativan) 0.5 mg 1X ONCE IV Last administered on 08/04/16 16:45; Start 08/04/16 at 16:45; Stop 08/04/16 at 16:46; Status DC Morphine Sulfate 5 mg 1X ONCE IV Last administered on 08/04/16 16:44; Start 08/04/16 at 16:45; Stop 08/04/16 at 16:46; Status DC Fentanyl Citrate 30 ml @ 0 mls/hr CONT PRN IV PROTOCOL Last administered on 07:32; Start 08/04/16 at 16:45; Stop 09/02/16 at 10:45; Status DC Chlorhexidine Gluconate (Peridex) 15 ml BID MM Last administered on 08/17/16 10:18; Start 08/04/16 at 21:00; Stop 08/17/16 at 19:36; Status DC Famotidine (Pepcid) 20 mg BID IVP Last administered on 08/26/16 08:43; Start at 17:00; Stop 08/26/16 at 17:31; Status DC Sodium Chloride 1,000 ml @ 100 mls/hr Q10H IV Last administered on 08/07/16 04:35; Start 08/05/16 at 09:00; Stop 08/07/16 at 08:59; Status DC Succinylcholine Chloride (Anectine) 200 mg STK-MED ONCE .ROUTE ; Start 08/04/16 at 16:00; Stop 08/05/16 at 12:32; Status DC Lorazepam (Ativan) 2 mg 1X ONCE IV Last administered on 08/05/16 20:43; Start 08/05/16 at 21:00; Stop 08/05/16 at 21:01; Status DC Furosemide (Lasix) 40 mg 1X PRN PRN IV blood transfusion Last administered on 14:17; Start 08/06/16 at 08:00; Stop 08/07/16 at 07:59; Status DC Sodium Bicarbonate 50 meq 1X ONCE IV Last administered on 08/06/16 14:06; Start 08/06/16 at 12:00; Stop 08/06/16 at 12:01; Status DC Calcium Chloride 1,000 mg STK-MED ONCE IV ; Start 08/04/16 at 12:00; Stop at 15:13; Status DC Epinephrine HCl (Epinephrine Syringe) 2 mg STK-MED ONCE .ROUTE ; Start 08/04/16 at 12:00; Stop 08/06/16 at 15:13; Status DC Sodium Bicarbonate 100 meq STK-MED ONCE .ROUTE ; Start 08/04/16 at 12:00; Stop 08/06/16 at 15:13; Status DC Amino Acids/ Glycerin/ Electrolytes 1,000 ml @ 100 mls/hr Q10H IV Last administered on 08/08/16 12:33; Start 08/07/16 at 10:00; Stop 08/09/16 at 09:42 ; Status DC Enoxaparin Sodium (Lovenox 40mg Syringe) 40 mg Q24H SQ Last administered on 13:10; Start 08/07/16 at 13:00; Stop 08/10/16 at 10:43; Status DC Vecuronium Dodge (Norcuron Bolus) 10 mg STK-MED ONCE IV ; Start 08/07/16 at 13 :56; Stop 08/07/16 at 13:57; Status DC Vecuronium Dodge (Norcuron Bolus) 6 mg 1X ONCE IV Last administered on 14:06; Start 08/07/16 at 14:00; Stop 08/07/16 at 14:05; Status DC Sodium Bicarbonate 50 meq 1X ONCE IV Last administered on 08/08/16 11:46; Start 08/08/16 at 11:45; Stop 08/08/16 at 11:46; Status DC Nystatin (Nystop) 1 james BID TP Last administered on 09/09/16 20:47; Start at 21:00 Linezolid 300 ml @ 300 mls/hr Q12HR IV Last administered on 08/14/16 20:51; Start 08/09/16 at 09:00; Stop 08/15/16 at 07:21; Status DC Sodium Chloride 1,000 ml @ 20 mls/hr Q24H IV Last administered on 08/26/16 06: 41; Start 08/09/16 at 09:45; Stop 08/27/16 at 13:51; Status DC Sodium Bicarbonate 150 meq/Dextrose 1,150 ml @ 100 mls/hr 1X ONCE IV Last administered on 08/09/16 12:25; Start 08/09/16 at 11:30; Stop 08/09/16 at 22:59 ; Status DC Piperacillin Sod/ Tazobactam Sod (Zosyn Per Pharmacy) 1 each PRN DAILY PRN MC SEE COMMENTS; Start 08/09/16 at 12:00; Stop 08/14/16 at 07:40; Status DC Piperacillin Sod/ Tazobactam Sod 4.5 gm/Sodium Chloride 100 ml @ 200 mls/hr Q6HRS IV Last administered on 08/14/16 05:58; Start 08/09/16 at 12:30; Stop at 07:33; Status DC Vecuronium Dodge (Norcuron Bolus) 5 mg PRN Q4HRS PRN IV INCREASED RESPIRATORY ,NOT RELI Last administered on 08/11/16 02:56; Start 08/09/16 at 13:30; Stop at 17:31; Status DC Potassium Chloride 50 ml @ 100 mls/hr Q1H IV ; Start 08/10/16 at 09:30; Stop at 10:59; Status Cancel Potassium Chloride 100 ml @ 100 mls/hr Q1H IV Last administered on 08/10/16 16:28; Start 08/10/16 at 10:30; Stop 08/10/16 at 14:29; Status DC Potassium Chloride (KCl Oral Soln) 60 meq 1X ONCE PEG Last administered on 11:16; Start 08/10/16 at 11:00; Stop 08/10/16 at 11:01; Status DC Sodium Bicarbonate 150 meq/Dextrose 1,150 ml @ 100 mls/hr [id number] IV Last administered on 08/10/16 11:14; Start 08/10/16 at 11:00; Stop 08/10/16 at 22:29 ; Status DC Enoxaparin Sodium (Lovenox 40mg Syringe) 40 mg Q24H SQ ; Start 08/10/16 at 13:00 ; Stop 08/10/16 at 13:00; Status DC Micafungin Sodium 100 mg/Dextrose 100 ml @ 100 mls/hr Q24H IV Last administered on 08/13/16 16:26; Start 08/11/16 at 16:00; Stop 08/14/16 at 07:33 ; Status DC Furosemide (Lasix) 40 mg 1X ONCE IVP Last administered on 08/12/16 08:38; Start 08/12/16 at 08:00; Stop 08/12/16 at 08:06; Status DC Morphine Sulfate 1 mg PRN Q10MIN PRN IV SEVERE PAIN; Start 08/13/16 at 07:00; Stop 08/14/16 at 06:59; Status DC Lactated Ringer's 1,000 ml @ 0 mls/hr Q0M IV ; Start 08/13/16 at 07:00; Stop at 18:59; Status DC Lidocaine HCl 2 ml PRN 1X PRN ID PRIOR TO IV START; Start 08/13/16 at 07:00; Stop 08/14/16 at 06:59; Status DC Hydromorphone HCl (Dilaudid) 0.5 mg PRN Q10MIN PRN IV SEV PAIN, Second choice; Start 08/13/16 at 07:00; Stop 08/14/16 at 06:59; Status DC Prochlorperazine Edisylate (Compazine) 5 mg PACU PRN PRN IV NAUSEA, MRX1; Start 08/13/16 at 07:00; Stop 08/14/16 at 06:59; Status DC Morphine Sulfate 1 mg PRN Q10MIN PRN IV SEVERE PAIN; Start 08/13/16 at 07:00; Stop 08/14/16 at 06:59; Status DC Lactated Ringer's 1,000 ml @ 0 mls/hr Q0M IV ; Start 08/13/16 at 07:00; Stop at 18:59; Status DC Lidocaine HCl 2 ml PRN 1X PRN ID PRIOR TO IV START; Start 08/13/16 at 07:00; Stop 08/14/16 at 06:59; Status DC Hydromorphone HCl (Dilaudid) 0.5 mg PRN Q10MIN PRN IV SEV PAIN, Second choice; Start 08/13/16 at 07:00; Stop 08/14/16 at 06:59; Status DC Prochlorperazine Edisylate (Compazine) 5 mg PACU PRN PRN IV NAUSEA, MRX1; Start 08/13/16 at 07:00; Stop 08/14/16 at 06:59; Status DC Potassium Chloride 50 ml @ 50 mls/hr Q1H IV Last administered on 08/13/16 07: 57; Start 08/13/16 at 07:00; Stop 08/13/16 at 08:59; Status DC Rocuronium Dodge (Zemuron) 50 mg STK-MED ONCE .ROUTE ; Start 08/13/16 at 12:50 ; Stop 08/13/16 at 12:51; Status DC Propofol 20 ml @ As Directed STK-MED ONCE IV ; Start 08/13/16 at 12:53; Stop at 12:54; Status DC Sevoflurane (Ultane) 30 ml STK-MED ONCE IH ; Start 08/13/16 at 14:04; Stop 08/13 at 14:05; Status DC Albumin Human 250 ml @ 100 mls/hr 1X ONCE IV Last administered on 08/13/16 23:38; Start 08/13/16 at 18:00; Stop 08/13/16 at 20:29; Status DC Albumin Human 500 ml @ 100 mls/hr 1X ONCE IV Last administered on 08/13/16 18:15; Start 08/13/16 at 18:00; Stop 08/13/16 at 22:59; Status DC Potassium Chloride 50 ml @ 50 mls/hr Q1H IV Last administered on 08/14/16 10: 46; Start 08/14/16 at 08:00; Stop 08/14/16 at 09:59; Status DC Nafcillin Sodium 2 gm/Sodium Chloride 100 ml @ 200 mls/hr Q4HRS IV Last administered on 08/23/16 08:51; Start 08/14/16 at 08:00; Stop 08/23/16 at 10:44; Status DC Enoxaparin Sodium (Lovenox 40mg Syringe) 40 mg Q24H SQ Last administered on 08/25 12:44; Start 08/14/16 at 12:00; Stop 08/26/16 at 11:53; Status DC Potassium Chloride (KCl Oral Soln) 40 meq 1X ONCE PEG Last administered on 07:54; Start 08/16/16 at 07:00; Stop 08/16/16 at 07:01; Status DC Potassium Chloride (KCl Oral Soln) 40 meq 1X ONCE PEG Last administered on 14:01; Start 08/16/16 at 12:00; Stop 08/16/16 at 12:01; Status DC Magnesium Sulfate/ Dextrose 50 ml @ 25 mls/hr 1X ONCE IV Last administered on 08/16/16 17:14; Start 08/16/16 at 16:30; Stop 08/16/16 at 18:29; Status DC Potassium Chloride (Klor-Con) 40 meq 1X ONCE PO ; Start 08/17/16 at 13:30; Stop 08/17/16 at 13:31; Status Cancel Potassium Chloride (KCl Oral Soln) 40 meq 1X ONCE PO Last administered on 08/17 15:34; Start 08/17/16 at 13:30; Stop 08/17/16 at 14:27; Status DC Potassium Chloride 100 ml @ 100 mls/hr PRN Q1HR PRN IV HYPOKALEMIA PER ICU PROTOCOL; Start 08/17/16 at 13:30; Status Cancel Potassium Chloride 50 ml @ 25 mls/hr PRN Q2HR PRN IV HYPOKALEMIA PER ICU PROTOCOL Last administered on 08/21/16 13:29; Start 08/17/16 at 13:30; Stop 08/21 at 13:34; Status DC Potassium Chloride (Klor-Con) 40 meq PRN Q2HR PRN PO HYPOKALEMIA PER ICU PROTOCOL Last administered on 09/04/16 08:04; Start 08/17/16 at 13:30; Stop at 08:32; Status DC Potassium Chloride 100 ml @ 100 mls/hr PRN Q1HR PRN IV HYPOKALEMIA PER ICU PROTOCOL; Start 08/17/16 at 13:30; Stop 09/04/16 at 15:41; Status DC Potassium Chloride 50 ml @ 25 mls/hr PRN Q2HR PRN IV HYPOKALEMIA PER ICU PROTOCOL; Start 08/17/16 at 13:30; Stop 09/04/16 at 15:41; Status DC Potassium Chloride (Klor-Con) 40 meq PRN Q2HR PRN PO HYPOKALEMIA PER ICU PROTOCOL; Start 08/17/16 at 13:30; Stop 09/04/16 at 08:33; Status DC Potassium Chloride 100 ml @ 100 mls/hr PRN Q1HR PRN IV HYPOKALEMIA PER ICU PROTOCOL; Start 08/17/16 at 13:30; Status Cancel Potassium Chloride 50 ml @ 25 mls/hr PRN Q2HR PRN IV HYPOKALEMIA PER ICU PROTOCOL Last administered on 08/27/16 14:37; Start 08/17/16 at 14:00; Stop at 15:41; Status DC Magnesium Sulfate/ Dextrose 100 ml @ 50 mls/hr PRN DAILY PRN IV HYPOMAGNESIA PER ICU PROTOCOL Last administered on 08/20/16 22:26; Start 08/18/16 at 09:00; Stop 09/04/16 at 15:41; Status DC Potassium Phos/ Sodium Phos (Phos-Nak) 1 pkt BID PO ; Start 08/17/16 at 21:00; Stop 08/18/16 at 09:01; Status DC Sodium Phosphate 40 mmol/Dextrose 263.3333 ml @ 62.5 mls/hr PRN 1X PRN IV HYPOPHOSP PER ICU PROTOCOL; Start 08/17/16 at 13:30; Status Cancel Potassium Chloride (KCl Oral Soln) 40 meq 1X ONCE PEG Last administered on 08/19 07:57; Start 08/19/16 at 07:45; Stop 08/19/16 at 07:46; Status DC Potassium Chloride (KCl Oral Soln) 40 meq 1X ONCE PEG Last administered on 08/19 11:36; Start 08/19/16 at 12:00; Stop 08/19/16 at 12:01; Status DC Alprazolam (Xanax) 0.5 mg 1X ONCE PO Last administered on 08/19/16 11:35; Start 08/19/16 at 11:15; Stop 08/19/16 at 11:16; Status DC Alprazolam (Xanax) 0.5 mg TID PEG Last administered on 08/23/16 20:34; Start at 15:00; Stop 08/24/16 at 08:11; Status DC Potassium Chloride 50 ml @ 50 mls/hr Q1H IV Last administered on 08/22/16 09:40 ; Start 08/22/16 at 08:30; Stop 08/22/16 at 10:29; Status DC Haloperidol Lactate (Haldol) 5 mg PRN Q6HRS PRN IVP AGITATION Last administered on 08/31/16 02:14; Start 08/22/16 at 09:15; Stop 09/03/16 at 10:57 ; Status DC Haloperidol Lactate (Haldol) 2 mg 1X ONCE IVP ; Start 08/22/16 at 09:15; Stop at 09:27; Status DC Magnesium Sulfate/ Dextrose 100 ml @ 50 mls/hr DAILY IV Last administered on 10:00; Start 08/23/16 at 09:00; Stop 08/26/16 at 08:59; Status DC Albumin Human 100 ml @ 100 mls/hr [id number] IV Last administered on 08/23/16 17:25 ; Start 08/23/16 at 09:00; Stop 08/23/16 at 16:59; Status DC Furosemide (Lasix) 40 mg [id number] IVP Last administered on 08/23/16 17:26; Start 08/23/16 at 09:00; Stop 08/23/16 at 16:01; Status DC Vitamin A/Vitamin D (Vitamin A & D Ointment) 1 james PRN Q1HR PRN TP SKIN PROTECTION Last administered on 08/31/16 17:52; Start 08/23/16 at 08:45 Cefepime HCl 1 gm/ Sodium Chloride 50 ml @ 100 mls/hr Q8HRS IV Last administered on 09/04/16 05:35; Start 08/23/16 at 14:00; Stop 09/04/16 at 07:57 ; Status DC Ondansetron HCl (Zofran) 4 mg PRN Q6HRS PRN IV NAUSEA/VOMITING Last administered on 08/23/16 19:27; Start 08/23/16 at 19:15 Alprazolam (Xanax) 0.25 mg TID PEG ; Start 08/24/16 at 09:00; Stop 08/24/16 at 09: 28; Status DC Diphenhydramine HCl (Benadryl) 25 mg HS PO ; Start 08/24/16 at 21:00; Stop at 21:00; Status DC Zolpidem Tartrate (Ambien) 5 mg PRN QHS PRN PO INSOMNIA Last administered on 20:58; Start 08/24/16 at 08:15 Alprazolam (Xanax) 0.5 mg TID PEG Last administered on 09/03/16 07:40; Start 08/24/16 at 09:00; Stop 09/03/16 at 10:57; Status DC Diphenhydramine HCl (Benadryl) 25 mg PRN QHS PRN PO sleep Last administered on 09/08/16 21:01; Start 08/24/16 at 21:00 Quetiapine Fumarate (SEROquel) 50 mg HS PO Last administered on 09/02/16 20:38 ; Start 08/24/16 at 21:00; Stop 09/03/16 at 20:55; Status DC Potassium Chloride 50 ml @ 50 mls/hr Q1H IV Last administered on 08/25/16 09:45 ; Start 08/25/16 at 08:00; Stop 08/25/16 at 09:59; Status DC Iohexol (Omnipaque 300 Mg/ml) 75 ml 1X ONCE IV Last administered on 08/25/16 15:45; Start 08/25/16 at 15:45; Stop 08/25/16 at 15:46; Status DC Iohexol (Omnipaque 240 Mg/ml) 50 ml 1X ONCE PO Last administered on 08/25/16 15:45; Start 08/25/16 at 15:45; Stop 08/25/16 at 15:46; Status DC Info (Do NOT chart on this entry -- for MONITORING) 1 each PRN DAILY PRN MC SEE COMMENTS; Start 08/25/16 at 16:00; Stop 08/27/16 at 15:59; Status DC Chlorhexidine Gluconate (Peridex) 15 ml BID SWSP Last administered on 08:17; Start 08/26/16 at 09:00; Stop 09/04/16 at 15:41; Status DC Potassium Chloride 50 ml @ 50 mls/hr Q1H IV ; Start 08/26/16 at 11:30; Stop at 11:30; Status DC Acetaminophen (Tylenol) 650 mg PRN Q6HRS PRN PEG MILD PAIN / TEMP Last administered on 09/03/16 07:40; Start 08/26/16 at 12:00; Stop 09/05/16 at 02:26 ; Status DC Lidocaine/Sodium Bicarbonate (Buffered Lidocaine 1%) 20 ml STK-MED ONCE IJ ; Start 08/26/16 at 14:50; Stop 08/26/16 at 14:51; Status DC Lidocaine/Sodium Bicarbonate (Buffered Lidocaine 1%) 20 ml 1X ONCE IJ Last administered on 08/26/16 15:42; Start 08/26/16 at 15:45; Stop 08/26/16 at 15:46; Status DC Lansoprazole (Prevacid) 30 mg BIDBFRMEAL FT Last administered on 09/10/16 06: 37; Start 08/27/16 at 17:30 Potassium Chloride 50 ml @ 50 mls/hr Q1H IV Last administered on 08/27/16 13:23 ; Start 08/27/16 at 13:00; Stop 08/27/16 at 14:59; Status DC Alteplase, Recombinant 5 mg/ Sterile Water 50 ml @ 0 mls/hr 1X ONCE INT CAT Last administered on 08/28/16 15:03; Start 08/28/16 at 10:45; Stop 08/28/16 at 10:46; Status DC Ferrous Sulfate 300 mg DAILY FT Last administered on 09/10/16 08:46; Start 03/07 at 09:00 Alteplase, Recombinant 5 mg/ Sterile Water 50 ml @ 0 mls/hr 1X ONCE INT CAT Last administered on 08/29/16 11:00; Start 08/29/16 at 11:00; Stop 08/29/16 at 11:01; Status DC Oxycodone/ Acetaminophen (Percocet 5/325) 1 tab PRN BID PRN PO PAIN Last administered on 09/02/16 10:36; Start 08/29/16 at 11:45; Stop 09/02/16 at 10:45 ; Status DC Metronidazole (Flagyl) 500 mg Q12HR PEG Last administered on 09/04/16 21:26; Start 08/30/16 at 09:00; Stop 09/05/16 at 02:26; Status DC Oxycodone HCl (Roxicodone) 10 mg Q4HRS PRN PO PAIN Last administered on 06:32; Start 08/30/16 at 15:15; Stop 09/02/16 at 10:45; Status DC Cholestyramine Resin (Questran Light) 4 gm QIDPMEDS PO Last administered on 18:18; Start 08/31/16 at 10:00; Stop 09/06/16 at 07:25; Status DC Diphenhydramine HCl (Benadryl) 25 mg PRN QHS PRN PO INSOMNIA; Start 08/31/16 at 10:30; Stop 09/03/16 at 10:57; Status DC Oxycodone HCl (Roxicodone) 5 mg Q4HRS PRN PO PAIN Last administered on 08:05; Start 09/02/16 at 10:45; Stop 09/04/16 at 15:42; Status DC Oxycodone HCl (Roxicodone) 10 mg Q4HRS PRN PO PAIN Last administered on 17:52; Start 09/02/16 at 11:00; Stop 09/04/16 at 15:42; Status DC Lactobacillus Acidophilus (Bacid, Jesi-Bid) 1 tab TIDWMEALS PO Last administered on 09/10/16 08:46; Start 09/03/16 at 08:00 Cholestyramine Resin (Questran Light) 4 gm BID@1000,2100 PEG ; Start 09/03/16 at 10:00; Stop 09/03/16 at 10:57; Status DC Alprazolam (Xanax) 0.5 mg QID PEG Last administered on 09/04/16 21:26; Start 09/03/16 at 13:00; Stop 09/05/16 at 02:26; Status DC Sertraline HCl (Zoloft) 25 mg QHS PO Last administered on 09/09/16 20:46; Start 09/03/16 at 21:00 Ibuprofen (Motrin) 600 mg Q8H PO Last administered on 09/10/16 03:44; Start at 11:15 Quetiapine Fumarate (SEROquel) 50 mg DAILY PO Last administered on 09/10/16 08 :47; Start 09/04/16 at 09:00 Cefazolin Sodium 2 gm/Sodium Chloride 50 ml @ 100 mls/hr Q8HRS IV Last administered on 09/10/16 06:36; Start 09/04/16 at 08:00 Potassium Chloride (KCl Oral Soln) 40 meq PRN Q2HR PRN PO HYPOKALEMIA PER ICU PROTOCOL; Start 09/04/16 at 08:45 Potassium Chloride (KCl Oral Soln) 40 meq PRN Q2HR PRN PO HYPOKALEMIA PER ICU PROTOCOL; Start 09/04/16 at 08:45 Barium Sulfate (Varibar Thin Liquid Apple) 148 gm 1X ONCE PO Last administered on 09/04/16 11:20; Start 09/04/16 at 11:15; Stop 09/04/16 at 11:16 ; Status DC Oxycodone HCl (Roxicodone) 10 mg Q5H PRN PO PAIN Last administered on 06:38; Start 09/04/16 at 17:00 Oxycodone HCl (Roxicodone) 5 mg Q5H PRN PO PAIN Last administered on 09/05/16 16:40; Start 09/04/16 at 17:00 Acetaminophen (Tylenol) 650 mg PRN Q6HRS PRN PO MILD PAIN / TEMP Last administered on 09/09/16 17:31; Start 09/05/16 at 02:30 Alprazolam (Xanax) 0.5 mg QID PO Last administered on 09/10/16 08:47; Start at 09:00 Metronidazole (Flagyl) 500 mg Q12HR PO Last administered on 09/05/16 20:51; Start 09/05/16 at 09:00; Stop 09/06/16 at 07:25; Status DC Alteplase, Recombinant (Cathflo) 2 mg 1X ONCE INT CAT Last administered on t 02:24; Start 09/10/16 at 02:15; Stop 09/10/16 at 02:16; Status DC Active Scripts Active Reported No Known Medications Prior To Admisstion (Info) Each 1 Each Vitals/I & O Vital Sign - Last 24 Hours 09/09/16 09/09/16 09/09/16 09/09/16 12:18 15:14 15:30 15:41 Temp 97.6 97.6 Pulse 82 Resp 22 B/P (MAP) 115/61 (79) Pulse Ox 99 99 98 99 O2 Delivery Tracheal Collar Room Air Tracheal Collar O2 Flow Rate 8.0 8.0 8.0 09/09/16 09/09/16 09/09/16 09/09/16 16:10 19:09 19:17 19:25 Temp 98.1 98.1 Pulse 105 Resp 16 B/P (MAP) 115/59 (77) Pulse Ox 99 97 97 98 O2 Delivery Tracheal Collar Tracheal Collar Room Air O2 Flow Rate 8.0 8.0 8.0 09/09/16 09/09/16 09/09/16 09/10/16 19:50 20:50 23:25 01:43 Temp 98.5 98.5 Pulse 101 Resp 20 B/P (MAP) 113/68 (83) Pulse Ox 95 O2 Delivery Trach Collar mura valve Tracheal Collar Tracheal Collar O2 Flow Rate 7.0 8.0 09/10/16 09/10/16 09/10/16 09/10/16 03:25 06:38 07:13 07:50 Temp 98.2 87.9 98.2 87.9 Pulse 94 94 Resp 20 20 B/P (MAP) 110/66 (81) 111/76 (88) Pulse Ox 95 98 96 O2 Delivery Tracheal Collar Tracheal Collar Room Air Tracheal Collar O2 Flow Rate 7.0 7.0 09/10/16 08:30 O2 Delivery Room Air Intake and Output 09/09/16 09/09/16 09/10/16 15:00 23:00 07:00 Intake Total 240 ml 120 ml Balance 240 ml 120 ml Assessment Sepsis/endocarditis/empyema, improving. Plan of Care: Continue current Tx, Mgmt RICHAR LITTLE MD September 10, 2016 11:04
[2016-09-10] MEDS ORDERED: FUROSEMIDE 20 MG/2 ML VIAL. IVP ONE (13:00)
--- NOTE | 2016-09-10 14:42 | PDOC ---
PULMONARY PROGRESS NOTES Subjective NO RESP STATUS WITH CHANGE IN TRACH TUBE s/p bilateral chest tubes, with removal s/p intra pleural TPA left side 08/27, 08/28, 08/29 Vitals Vital Signs Date Time Temp Pulse Resp B/P (MAP) Pulse Ox O2 Delivery O2 Flow Rate FiO2 09/10/16 13:00 Room Air 09/10/16 11:15 8.0 09/10/16 11:01 97.4 96 20 116/67 (83) 96 97.4 Comments ros as mentioned as above other sys otherwise neg ROS: No Chest Pain, No Abdominal Pain General: Alert, No acute distress HEENT: Other (nc at perrl. poor dentition, nose clear) Lungs: Other (decrease bs) Cardiovascular: S1, S2, Other Abdomen: Soft, Non-tender, Other (no mass) Neuro Exam: Alert, Oriented Extremities: Other (edema) Skin: Warm Medications Active Scripts Medications Dose Route/Sig Days Date Category No Known Medications Prior To Admisstion (Info) Each 1 Each 08/06/16 Reported Comments cxr reviewed, 09/02 interval improvement in right-sided parenchymal opacities / volume loss Left base Impression . 1. Acute hypoxemic respiratory failure, multifactorial in etiology 2. bilateral loculated effusions, suspected empyema, s/p bilateral chest tubes , VERY LOW GLUCOSE(9), LOW PH , s/p TPA and removal of chest tubes 3. Bilateral pulmonary nodules with cavitation, due to septic emboli. 4. Endocarditis. right sided, improving vegetations 5. Anemia, 6. Intravenous drug abuse. 7. MSSA septicemia/pneumonia/ CHF Plan . T SHIED AND DECANNULATE SOON s/p removal of bilateral chest tube s/p intra pleural TPA left side Overall left empyema has sig. improved ,only small LL pockets. Trach secretions for c/s, E-coli, on antibiotic per ID, bronchodilators off lovenox, due to on/off anemia oral nutrition ANGIE CARBAJAL MD September 10, 2016 14:42
[2016-09-10 15:00] VITALS: BP 112/55
--- NOTE | 2016-09-10 15:45 | PDOC ---
PROGRESS NOTES Chief Complaint Chief Complaint Sepsis Acute hypoxic respir failure ASSESSMENT AND PLAN: 1. Sepsis: resolved 2. 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 MSSA. on cefepime (to cover E.coli as well). Abx rx until 09/19 3. PNA: septic emboli w/cavitary lesions. sputum with heavy growth E.coli. 4. 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 rpt CT chest on 08/31 with improvement. 5. Acute respir failure: traced, PM valve, downsizing trach per pulmonology 6. Diarrhea: C.diff neg. prob due to TF - changed. probiotics 7. Anemia: severe, recurrent: multifactorial, incl severe inflammation, HCV toxicity. inflammation confirmed by iron studies. b12/folate WNL. on daily low dose Fe 8. Thrombocytopenia: 2/2 infection, now resolved. monitor 9. ELMIRA: resolved 10. Hep C: new dx during current admit. F/U on O/P basis for rx 11. Polysubstance abuse: wean narcotics: oxy5 q4 -> q5 PRN. add adjunct NSAIDs, heat. 12. Depression: increase xanax to qid PRN. start Zoloft 13. Malnutrition: eating well, possible PEG removal next week. History of Present Illness History of Present Illness abd discomfort, no pain. in good spirits Vitals Vitals Vital Signs Date Time Temp Pulse Resp B/P (MAP) Pulse Ox O2 Delivery O2 Flow Rate FiO2 09/10/16 13:00 Room Air 09/10/16 11:15 8.0 09/10/16 11:01 97.4 96 20 116/67 (83) 96 97.4 Physical Exam General: Alert, Cooperative, No acute distress Heart: Normal S1, Normal S2, No murmurs Lungs: Other (decrease bs) Abdomen: Normal bowel sounds, Other Extremities: No cyanosis, Other (1+ edema) Skin: No breakdown, No significant lesion Comment Review of Relevant I have reviewed the following items shanta (where applicable) has been applied. Labs Microbiology 08/12/16 Blood Fungal Culture - Preliminary, Resulted 08/12/16 Fungal Culture Result 1 - Preliminary, Resulted 08/26/16 Gram Stain - Final, Complete 08/22/16 Gram Stain - Final, Complete 08/31/16 Urine Culture - Final, Complete 08/31/16 Urine Culture Result 1 (JAMEY) - Final, Complete Medications Current Medications Amino Acids/ Glycerin/ Electrolytes 1,000 ml @ 100 mls/hr Q10H IV Last administered on 08/05/16 02:40; Start 08/02/16 at 03:00; Stop 08/05/16 at 08:50 ; Status DC Morphine Sulfate 2 mg PRN Q2HR PRN IV SEVERE PAIN Last administered on 11:59; Start 08/02/16 at 02:30; Stop 08/02/16 at 13:28; Status DC Daptomycin 220 mg/ Sodium Chloride 50 ml @ 100 mls/hr Q24H IV ; Start 08/02/16 at 09:15; Stop 08/02/16 at 15:58; Status DC Cefepime HCl 1 gm/ Sodium Chloride 50 ml @ 100 mls/hr Q12HR IV Last administered on 08/04/16 08:10; Start 08/02/16 at 10:00; Stop 08/04/16 at 10:33 ; Status DC Daptomycin 220 mg/ Sodium Chloride 50 ml @ 100 mls/hr ONCE ONCE IV ; Start at 10:00; Stop 08/02/16 at 10:29; Status Cancel Potassium Chloride (Klor-Con) 40 meq 1X ONCE PO Last administered on 10:17; Start 08/02/16 at 09:45; Stop 08/02/16 at 09:46; Status DC Daptomycin 220 mg/ Sodium Chloride 50 ml @ 100 mls/hr Q24H IV Last administered on 08/03/16 09:43; Start 08/02/16 at 10:15; Stop 08/03/16 at 10:29 ; Status DC Potassium Chloride (Klor-Con) 40 meq 1X ONCE PO Last administered on 12:57; Start 08/02/16 at 12:30; Stop 08/02/16 at 12:36; Status DC Morphine Sulfate 5 mg PRN Q2HRS PRN IV MODERATE TO SEVERE PAIN Last administered on 08/26/16 16:15; Start 08/02/16 at 13:30; Stop 08/26/16 at 17:31; Status DC Morphine Sulfate 8 mg PRN Q2HRS PRN IV MODERATE TO SEVERE PAIN Last administered on 08/04/16 14:58; Start 08/02/16 at 13:30; Stop 08/26/16 at 17:31 ; Status DC Acetaminophen (Tylenol) 650 mg PRN Q6HRS PRN PO TEMP GREATER THAN 100.4 Last administered on 08/26/16 00:24; Start 08/02/16 at 14:45; Stop 08/26/16 at 17:31; Status DC Lactated Ringer's 1,000 ml @ 50 mls/hr Q20H IV ; Start 08/05/16 at 07:00; Stop 08/05/16 at 18:13; Status DC Daptomycin 220 mg/ Sodium Chloride 50 ml @ 100 mls/hr Q24H IV ; Start 08/03/16 at 11:00; Status Cancel Potassium Chloride (Klor-Con) 40 meq 1X ONCE PO Last administered on 17:41; Start 08/02/16 at 17:15; Stop 08/02/16 at 17:18; Status DC Potassium Chloride (Klor-Con) 40 meq BIDWMEALS PO ; Start 08/03/16 at 08:00; Stop 08/03/16 at 11:08; Status DC Morphine Sulfate 5 mg 1X ONCE IV Last administered on 08/02/16 21:45; Start 08/02/16 at 21:30; Stop 08/02/16 at 21:33; Status DC Lorazepam (Ativan) 1 mg 1X ONCE IV Last administered on 08/02/16 21:30; Start 08/02/16 at 21:30; Stop 08/02/16 at 21:33; Status DC Acetaminophen (Acetaminophen Supp) 650 mg PRN Q6HRS PRN DE MILD PAIN / TEMP Last administered on 08/13/16 03:13; Start 08/03/16 at 01:15; Stop 08/26/16 at 17:31; Status DC Albuterol/ Ipratropium (Duoneb) 3 ml RTQID NEB Last administered on 09/10/16 11:14; Start 08/03/16 at 08:00 Budesonide (Pulmicort) 0.5 mg RTBID NEB Last administered on 09/10/16 07:11; Start 08/03/16 at 08:00 Pantoprazole Sodium (Protonix Vial) 40 mg 1X ONCE IVP Last administered on 10:06; Start 08/03/16 at 08:00; Stop 08/03/16 at 08:01; Status DC Daptomycin 320 mg/ Sodium Chloride 50 ml @ 100 mls/hr Q24H IV Last administered on 08/04/16 10:03; Start 08/04/16 at 10:00; Stop 08/04/16 at 10:33 ; Status DC Lorazepam (Ativan) 0.5 mg PRN Q6HRS PRN IV ANXIETY / AGITATION Last administered on 08/04/16 09:12; Start 08/03/16 at 11:15; Stop 08/07/16 at 11:02 ; Status DC Lorazepam (Ativan) 0.5 mg 1X ONCE IV Last administered on 08/04/16 10:00; Start 08/04/16 at 10:00; Stop 08/04/16 at 10:01; Status DC Morphine Sulfate 5 mg 1X ONCE IV Last administered on 08/04/16 10:00; Start 08/04/16 at 10:00; Stop 08/04/16 at 10:01; Status DC Lorazepam (Ativan) 0.5 mg PRN Q4HRS PRN IV ANXIETY / AGITATION Last administered on 08/25/16 02:29; Start 08/04/16 at 10:00; Stop 08/26/16 at 17:31; Status DC Nafcillin Sodium 2 gm/Sodium Chloride 100 ml @ 200 mls/hr Q4HRS IV Last administered on 08/09/16 10:10; Start 08/04/16 at 12:00; Stop 08/09/16 at 11:49 ; Status DC Propofol 100 ml @ As Directed STK-MED ONCE IV ; Start 08/04/16 at 16:10; Stop 08/04/16 at 16:11; Status DC Succinylcholine Chloride (Anectine) 200 mg STK-MED ONCE .ROUTE ; Start 08/04/16 at 16:14; Stop 08/04/16 at 16:15; Status DC Succinylcholine Chloride (Anectine) 200 mg 1X ONCE IV ; Start 08/04/16 at 16:45 ; Stop 08/04/16 at 16:46; Status DC Propofol 100 ml @ 0 mls/hr CONT PRN IV SEE I/O RECORD Last administered on 08/17 10:18; Start 08/04/16 at 16:45; Stop 08/26/16 at 17:31; Status DC Lorazepam (Ativan) 0.5 mg 1X ONCE IV Last administered on 08/04/16 16:45; Start 08/04/16 at 16:45; Stop 08/04/16 at 16:46; Status DC Morphine Sulfate 5 mg 1X ONCE IV Last administered on 08/04/16 16:44; Start 08/04/16 at 16:45; Stop 08/04/16 at 16:46; Status DC Fentanyl Citrate 30 ml @ 0 mls/hr CONT PRN IV PROTOCOL Last administered on 07:32; Start 08/04/16 at 16:45; Stop 09/02/16 at 10:45; Status DC Chlorhexidine Gluconate (Peridex) 15 ml BID MM Last administered on 08/17/16 10:18; Start 08/04/16 at 21:00; Stop 08/17/16 at 19:36; Status DC Famotidine (Pepcid) 20 mg BID IVP Last administered on 08/26/16 08:43; Start at 17:00; Stop 08/26/16 at 17:31; Status DC Sodium Chloride 1,000 ml @ 100 mls/hr Q10H IV Last administered on 08/07/16 04:35; Start 08/05/16 at 09:00; Stop 08/07/16 at 08:59; Status DC Succinylcholine Chloride (Anectine) 200 mg STK-MED ONCE .ROUTE ; Start 08/04/16 at 16:00; Stop 08/05/16 at 12:32; Status DC Lorazepam (Ativan) 2 mg 1X ONCE IV Last administered on 08/05/16 20:43; Start 08/05/16 at 21:00; Stop 08/05/16 at 21:01; Status DC Furosemide (Lasix) 40 mg 1X PRN PRN IV blood transfusion Last administered on 14:17; Start 08/06/16 at 08:00; Stop 08/07/16 at 07:59; Status DC Sodium Bicarbonate 50 meq 1X ONCE IV Last administered on 08/06/16 14:06; Start 08/06/16 at 12:00; Stop 08/06/16 at 12:01; Status DC Calcium Chloride 1,000 mg STK-MED ONCE IV ; Start 08/04/16 at 12:00; Stop at 15:13; Status DC Epinephrine HCl (Epinephrine Syringe) 2 mg STK-MED ONCE .ROUTE ; Start 08/04/16 at 12:00; Stop 08/06/16 at 15:13; Status DC Sodium Bicarbonate 100 meq STK-MED ONCE .ROUTE ; Start 08/04/16 at 12:00; Stop 08/06/16 at 15:13; Status DC Amino Acids/ Glycerin/ Electrolytes 1,000 ml @ 100 mls/hr Q10H IV Last administered on 08/08/16 12:33; Start 08/07/16 at 10:00; Stop 08/09/16 at 09:42 ; Status DC Enoxaparin Sodium (Lovenox 40mg Syringe) 40 mg Q24H SQ Last administered on 13:10; Start 08/07/16 at 13:00; Stop 08/10/16 at 10:43; Status DC Vecuronium [place] (Norcuron Bolus) 10 mg STK-MED ONCE IV ; Start 08/07/16 at 13 :56; Stop 08/07/16 at 13:57; Status DC Vecuronium [place] (Norcuron Bolus) 6 mg 1X ONCE IV Last administered on 14:06; Start 08/07/16 at 14:00; Stop 08/07/16 at 14:05; Status DC Sodium Bicarbonate 50 meq 1X ONCE IV Last administered on 08/08/16 11:46; Start 08/08/16 at 11:45; Stop 08/08/16 at 11:46; Status DC Nystatin (Nystop) 1 james BID TP Last administered on 09/09/16 20:47; Start at 21:00 Linezolid 300 ml @ 300 mls/hr Q12HR IV Last administered on 08/14/16 20:51; Start 08/09/16 at 09:00; Stop 08/15/16 at 07:21; Status DC Sodium Chloride 1,000 ml @ 20 mls/hr Q24H IV Last administered on 08/26/16 06: 41; Start 08/09/16 at 09:45; Stop 08/27/16 at 13:51; Status DC Sodium Bicarbonate 150 meq/Dextrose 1,150 ml @ 100 mls/hr 1X ONCE IV Last administered on 08/09/16 12:25; Start 08/09/16 at 11:30; Stop 08/09/16 at 22:59 ; Status DC Piperacillin Sod/ Tazobactam Sod (Zosyn Per Pharmacy) 1 each PRN DAILY PRN MC SEE COMMENTS; Start 08/09/16 at 12:00; Stop 08/14/16 at 07:40; Status DC Piperacillin Sod/ Tazobactam Sod 4.5 gm/Sodium Chloride 100 ml @ 200 mls/hr Q6HRS IV Last administered on 08/14/16 05:58; Start 08/09/16 at 12:30; Stop at 07:33; Status DC Vecuronium [place] (Norcuron Bolus) 5 mg PRN Q4HRS PRN IV INCREASED RESPIRATORY ,NOT RELI Last administered on 08/11/16 02:56; Start 08/09/16 at 13:30; Stop at 17:31; Status DC Potassium Chloride 50 ml @ 100 mls/hr Q1H IV ; Start 08/10/16 at 09:30; Stop at 10:59; Status Cancel Potassium Chloride 100 ml @ 100 mls/hr Q1H IV Last administered on 08/10/16 16:28; Start 08/10/16 at 10:30; Stop 08/10/16 at 14:29; Status DC Potassium Chloride (KCl Oral Soln) 60 meq 1X ONCE PEG Last administered on 11:16; Start 08/10/16 at 11:00; Stop 08/10/16 at 11:01; Status DC Sodium Bicarbonate 150 meq/Dextrose 1,150 ml @ 100 mls/hr [id number] IV Last administered on 08/10/16 11:14; Start 08/10/16 at 11:00; Stop 08/10/16 at 22:29 ; Status DC Enoxaparin Sodium (Lovenox 40mg Syringe) 40 mg Q24H SQ ; Start 08/10/16 at 13:00 ; Stop 08/10/16 at 13:00; Status DC Micafungin Sodium 100 mg/Dextrose 100 ml @ 100 mls/hr Q24H IV Last administered on 08/13/16 16:26; Start 08/11/16 at 16:00; Stop 08/14/16 at 07:33 ; Status DC Furosemide (Lasix) 40 mg 1X ONCE IVP Last administered on 08/12/16 08:38; Start 08/12/16 at 08:00; Stop 08/12/16 at 08:06; Status DC Morphine Sulfate 1 mg PRN Q10MIN PRN IV SEVERE PAIN; Start 08/13/16 at 07:00; Stop 08/14/16 at 06:59; Status DC Lactated Ringer's 1,000 ml @ 0 mls/hr Q0M IV ; Start 08/13/16 at 07:00; Stop at 18:59; Status DC Lidocaine HCl 2 ml PRN 1X PRN ID PRIOR TO IV START; Start 08/13/16 at 07:00; Stop 08/14/16 at 06:59; Status DC Hydromorphone HCl (Dilaudid) 0.5 mg PRN Q10MIN PRN IV SEV PAIN, Second choice; Start 08/13/16 at 07:00; Stop 08/14/16 at 06:59; Status DC Prochlorperazine Edisylate (Compazine) 5 mg PACU PRN PRN IV NAUSEA, MRX1; Start 08/13/16 at 07:00; Stop 08/14/16 at 06:59; Status DC Morphine Sulfate 1 mg PRN Q10MIN PRN IV SEVERE PAIN; Start 08/13/16 at 07:00; Stop 08/14/16 at 06:59; Status DC Lactated Ringer's 1,000 ml @ 0 mls/hr Q0M IV ; Start 08/13/16 at 07:00; Stop at 18:59; Status DC Lidocaine HCl 2 ml PRN 1X PRN ID PRIOR TO IV START; Start 08/13/16 at 07:00; Stop 08/14/16 at 06:59; Status DC Hydromorphone HCl (Dilaudid) 0.5 mg PRN Q10MIN PRN IV SEV PAIN, Second choice; Start 08/13/16 at 07:00; Stop 08/14/16 at 06:59; Status DC Prochlorperazine Edisylate (Compazine) 5 mg PACU PRN PRN IV NAUSEA, MRX1; Start 08/13/16 at 07:00; Stop 08/14/16 at 06:59; Status DC Potassium Chloride 50 ml @ 50 mls/hr Q1H IV Last administered on 08/13/16 07: 57; Start 08/13/16 at 07:00; Stop 08/13/16 at 08:59; Status DC Rocuronium [place] (Zemuron) 50 mg STK-MED ONCE .ROUTE ; Start 08/13/16 at 12:50 ; Stop 08/13/16 at 12:51; Status DC Propofol 20 ml @ As Directed STK-MED ONCE IV ; Start 08/13/16 at 12:53; Stop at 12:54; Status DC Sevoflurane (Ultane) 30 ml STK-MED ONCE IH ; Start 08/13/16 at 14:04; Stop 08/13 at 14:05; Status DC Albumin Human 250 ml @ 100 mls/hr 1X ONCE IV Last administered on 08/13/16 23:38; Start 08/13/16 at 18:00; Stop 08/13/16 at 20:29; Status DC Albumin Human 500 ml @ 100 mls/hr 1X ONCE IV Last administered on 08/13/16 18:15; Start 08/13/16 at 18:00; Stop 08/13/16 at 22:59; Status DC Potassium Chloride 50 ml @ 50 mls/hr Q1H IV Last administered on 08/14/16 10: 46; Start 08/14/16 at 08:00; Stop 08/14/16 at 09:59; Status DC Nafcillin Sodium 2 gm/Sodium Chloride 100 ml @ 200 mls/hr Q4HRS IV Last administered on 08/23/16 08:51; Start 08/14/16 at 08:00; Stop 08/23/16 at 10:44; Status DC Enoxaparin Sodium (Lovenox 40mg Syringe) 40 mg Q24H SQ Last administered on 08/25 12:44; Start 08/14/16 at 12:00; Stop 08/26/16 at 11:53; Status DC Potassium Chloride (KCl Oral Soln) 40 meq 1X ONCE PEG Last administered on 07:54; Start 08/16/16 at 07:00; Stop 08/16/16 at 07:01; Status DC Potassium Chloride (KCl Oral Soln) 40 meq 1X ONCE PEG Last administered on 14:01; Start 08/16/16 at 12:00; Stop 08/16/16 at 12:01; Status DC Magnesium Sulfate/ Dextrose 50 ml @ 25 mls/hr 1X ONCE IV Last administered on 08/16/16 17:14; Start 08/16/16 at 16:30; Stop 08/16/16 at 18:29; Status DC Potassium Chloride (Klor-Con) 40 meq 1X ONCE PO ; Start 08/17/16 at 13:30; Stop 08/17/16 at 13:31; Status Cancel Potassium Chloride (KCl Oral Soln) 40 meq 1X ONCE PO Last administered on 08/17 15:34; Start 08/17/16 at 13:30; Stop 08/17/16 at 14:27; Status DC Potassium Chloride 100 ml @ 100 mls/hr PRN Q1HR PRN IV HYPOKALEMIA PER ICU PROTOCOL; Start 08/17/16 at 13:30; Status Cancel Potassium Chloride 50 ml @ 25 mls/hr PRN Q2HR PRN IV HYPOKALEMIA PER ICU PROTOCOL Last administered on 08/21/16 13:29; Start 08/17/16 at 13:30; Stop 08/21 at 13:34; Status DC Potassium Chloride (Klor-Con) 40 meq PRN Q2HR PRN PO HYPOKALEMIA PER ICU PROTOCOL Last administered on 09/04/16 08:04; Start 08/17/16 at 13:30; Stop at 08:32; Status DC Potassium Chloride 100 ml @ 100 mls/hr PRN Q1HR PRN IV HYPOKALEMIA PER ICU PROTOCOL; Start 08/17/16 at 13:30; Stop 09/04/16 at 15:41; Status DC Potassium Chloride 50 ml @ 25 mls/hr PRN Q2HR PRN IV HYPOKALEMIA PER ICU PROTOCOL; Start 08/17/16 at 13:30; Stop 09/04/16 at 15:41; Status DC Potassium Chloride (Klor-Con) 40 meq PRN Q2HR PRN PO HYPOKALEMIA PER ICU PROTOCOL; Start 08/17/16 at 13:30; Stop 09/04/16 at 08:33; Status DC Potassium Chloride 100 ml @ 100 mls/hr PRN Q1HR PRN IV HYPOKALEMIA PER ICU PROTOCOL; Start 08/17/16 at 13:30; Status Cancel Potassium Chloride 50 ml @ 25 mls/hr PRN Q2HR PRN IV HYPOKALEMIA PER ICU PROTOCOL Last administered on 08/27/16 14:37; Start 08/17/16 at 14:00; Stop at 15:41; Status DC Magnesium Sulfate/ Dextrose 100 ml @ 50 mls/hr PRN DAILY PRN IV HYPOMAGNESIA PER ICU PROTOCOL Last administered on 08/20/16 22:26; Start 08/18/16 at 09:00; Stop 09/04/16 at 15:41; Status DC Potassium Phos/ Sodium Phos (Phos-Nak) 1 pkt BID PO ; Start 08/17/16 at 21:00; Stop 08/18/16 at 09:01; Status DC Sodium Phosphate 40 mmol/Dextrose 263.3333 ml @ 62.5 mls/hr PRN 1X PRN IV HYPOPHOSP PER ICU PROTOCOL; Start 08/17/16 at 13:30; Status Cancel Potassium Chloride (KCl Oral Soln) 40 meq 1X ONCE PEG Last administered on 08/19 07:57; Start 08/19/16 at 07:45; Stop 08/19/16 at 07:46; Status DC Potassium Chloride (KCl Oral Soln) 40 meq 1X ONCE PEG Last administered on 08/19 11:36; Start 08/19/16 at 12:00; Stop 08/19/16 at 12:01; Status DC Alprazolam (Xanax) 0.5 mg 1X ONCE PO Last administered on 08/19/16 11:35; Start 08/19/16 at 11:15; Stop 08/19/16 at 11:16; Status DC Alprazolam (Xanax) 0.5 mg TID PEG Last administered on 08/23/16 20:34; Start at 15:00; Stop 08/24/16 at 08:11; Status DC Potassium Chloride 50 ml @ 50 mls/hr Q1H IV Last administered on 08/22/16 09:40 ; Start 08/22/16 at 08:30; Stop 08/22/16 at 10:29; Status DC Haloperidol Lactate (Haldol) 5 mg PRN Q6HRS PRN IVP AGITATION Last administered on 08/31/16 02:14; Start 08/22/16 at 09:15; Stop 09/03/16 at 10:57 ; Status DC Haloperidol Lactate (Haldol) 2 mg 1X ONCE IVP ; Start 08/22/16 at 09:15; Stop at 09:27; Status DC Magnesium Sulfate/ Dextrose 100 ml @ 50 mls/hr DAILY IV Last administered on 10:00; Start 08/23/16 at 09:00; Stop 08/26/16 at 08:59; Status DC Albumin Human 100 ml @ 100 mls/hr [id number] IV Last administered on 08/23/16 17:25 ; Start 08/23/16 at 09:00; Stop 08/23/16 at 16:59; Status DC Furosemide (Lasix) 40 mg [id number] IVP Last administered on 08/23/16 17:26; Start 08/23/16 at 09:00; Stop 08/23/16 at 16:01; Status DC Vitamin A/Vitamin D (Vitamin A & D Ointment) 1 james PRN Q1HR PRN TP SKIN PROTECTION Last administered on 08/31/16 17:52; Start 08/23/16 at 08:45 Cefepime HCl 1 gm/ Sodium Chloride 50 ml @ 100 mls/hr Q8HRS IV Last administered on 09/04/16 05:35; Start 08/23/16 at 14:00; Stop 09/04/16 at 07:57 ; Status DC Ondansetron HCl (Zofran) 4 mg PRN Q6HRS PRN IV NAUSEA/VOMITING Last administered on 08/23/16 19:27; Start 08/23/16 at 19:15 Alprazolam (Xanax) 0.25 mg TID PEG ; Start 08/24/16 at 09:00; Stop 08/24/16 at 09: 28; Status DC Diphenhydramine HCl (Benadryl) 25 mg HS PO ; Start 08/24/16 at 21:00; Stop at 21:00; Status DC Zolpidem Tartrate (Ambien) 5 mg PRN QHS PRN PO INSOMNIA Last administered on 20:58; Start 08/24/16 at 08:15 Alprazolam (Xanax) 0.5 mg TID PEG Last administered on 09/03/16 07:40; Start 08/24/16 at 09:00; Stop 09/03/16 at 10:57; Status DC Diphenhydramine HCl (Benadryl) 25 mg PRN QHS PRN PO sleep Last administered on 09/08/16 21:01; Start 08/24/16 at 21:00 Quetiapine Fumarate (SEROquel) 50 mg HS PO Last administered on 09/02/16 20:38 ; Start 08/24/16 at 21:00; Stop 09/03/16 at 20:55; Status DC Potassium Chloride 50 ml @ 50 mls/hr Q1H IV Last administered on 08/25/16 09:45 ; Start 08/25/16 at 08:00; Stop 08/25/16 at 09:59; Status DC Iohexol (Omnipaque 300 Mg/ml) 75 ml 1X ONCE IV Last administered on 08/25/16 15:45; Start 08/25/16 at 15:45; Stop 08/25/16 at 15:46; Status DC Iohexol (Omnipaque 240 Mg/ml) 50 ml 1X ONCE PO Last administered on 08/25/16 15:45; Start 08/25/16 at 15:45; Stop 08/25/16 at 15:46; Status DC Info (Do NOT chart on this entry -- for MONITORING) 1 each PRN DAILY PRN MC SEE COMMENTS; Start 08/25/16 at 16:00; Stop 08/27/16 at 15:59; Status DC Chlorhexidine Gluconate (Peridex) 15 ml BID SWSP Last administered on 08:17; Start 08/26/16 at 09:00; Stop 09/04/16 at 15:41; Status DC Potassium Chloride 50 ml @ 50 mls/hr Q1H IV ; Start 08/26/16 at 11:30; Stop at 11:30; Status DC Acetaminophen (Tylenol) 650 mg PRN Q6HRS PRN PEG MILD PAIN / TEMP Last administered on 09/03/16 07:40; Start 08/26/16 at 12:00; Stop 09/05/16 at 02:26 ; Status DC Lidocaine/Sodium Bicarbonate (Buffered Lidocaine 1%) 20 ml STK-MED ONCE IJ ; Start 08/26/16 at 14:50; Stop 08/26/16 at 14:51; Status DC Lidocaine/Sodium Bicarbonate (Buffered Lidocaine 1%) 20 ml 1X ONCE IJ Last administered on 08/26/16 15:42; Start 08/26/16 at 15:45; Stop 08/26/16 at 15:46; Status DC Lansoprazole (Prevacid) 30 mg BIDBFRMEAL FT Last administered on 09/10/16 06: 37; Start 08/27/16 at 17:30 Potassium Chloride 50 ml @ 50 mls/hr Q1H IV Last administered on 08/27/16 13:23 ; Start 08/27/16 at 13:00; Stop 08/27/16 at 14:59; Status DC Alteplase, Recombinant 5 mg/ Sterile Water 50 ml @ 0 mls/hr 1X ONCE INT CAT Last administered on 08/28/16 15:03; Start 08/28/16 at 10:45; Stop 08/28/16 at 10:46; Status DC Ferrous Sulfate 300 mg DAILY FT Last administered on 09/10/16 08:46; Start 03/07 at 09:00 Alteplase, Recombinant 5 mg/ Sterile Water 50 ml @ 0 mls/hr 1X ONCE INT CAT Last administered on 08/29/16 11:00; Start 08/29/16 at 11:00; Stop 08/29/16 at 11:01; Status DC Oxycodone/ Acetaminophen (Percocet 5/325) 1 tab PRN BID PRN PO PAIN Last administered on 09/02/16 10:36; Start 08/29/16 at 11:45; Stop 09/02/16 at 10:45 ; Status DC Metronidazole (Flagyl) 500 mg Q12HR PEG Last administered on 09/04/16 21:26; Start 08/30/16 at 09:00; Stop 09/05/16 at 02:26; Status DC Oxycodone HCl (Roxicodone) 10 mg Q4HRS PRN PO PAIN Last administered on 06:32; Start 08/30/16 at 15:15; Stop 09/02/16 at 10:45; Status DC Cholestyramine Resin (Questran Light) 4 gm QIDPMEDS PO Last administered on 18:18; Start 08/31/16 at 10:00; Stop 09/06/16 at 07:25; Status DC Diphenhydramine HCl (Benadryl) 25 mg PRN QHS PRN PO INSOMNIA; Start 08/31/16 at 10:30; Stop 09/03/16 at 10:57; Status DC Oxycodone HCl (Roxicodone) 5 mg Q4HRS PRN PO PAIN Last administered on 08:05; Start 09/02/16 at 10:45; Stop 09/04/16 at 15:42; Status DC Oxycodone HCl (Roxicodone) 10 mg Q4HRS PRN PO PAIN Last administered on 17:52; Start 09/02/16 at 11:00; Stop 09/04/16 at 15:42; Status DC Lactobacillus Acidophilus (Bacid, Jesi-Bid) 1 tab TIDWMEALS PO Last administered on 09/10/16 11:52; Start 09/03/16 at 08:00 Cholestyramine Resin (Questran Light) 4 gm BID@1000,2100 PEG ; Start 09/03/16 at 10:00; Stop 09/03/16 at 10:57; Status DC Alprazolam (Xanax) 0.5 mg QID PEG Last administered on 09/04/16 21:26; Start 09/03/16 at 13:00; Stop 09/05/16 at 02:26; Status DC Sertraline HCl (Zoloft) 25 mg QHS PO Last administered on 09/09/16 20:46; Start 09/03/16 at 21:00 Ibuprofen (Motrin) 600 mg Q8H PO Last administered on 09/10/16 11:47; Start at 11:15 Quetiapine Fumarate (SEROquel) 50 mg DAILY PO Last administered on 09/10/16 08 :47; Start 09/04/16 at 09:00 Cefazolin Sodium 2 gm/Sodium Chloride 50 ml @ 100 mls/hr Q8HRS IV Last administered on 09/10/16 14:18; Start 09/04/16 at 08:00 Potassium Chloride (KCl Oral Soln) 40 meq PRN Q2HR PRN PO HYPOKALEMIA PER ICU PROTOCOL; Start 09/04/16 at 08:45 Potassium Chloride (KCl Oral Soln) 40 meq PRN Q2HR PRN PO HYPOKALEMIA PER ICU PROTOCOL; Start 09/04/16 at 08:45 Barium Sulfate (Varibar Thin Liquid Apple) 148 gm 1X ONCE PO Last administered on 09/04/16 11:20; Start 09/04/16 at 11:15; Stop 09/04/16 at 11:16 ; Status DC Oxycodone HCl (Roxicodone) 10 mg Q5H PRN PO PAIN Last administered on 11:48; Start 09/04/16 at 17:00 Oxycodone HCl (Roxicodone) 5 mg Q5H PRN PO PAIN Last administered on 09/05/16 16:40; Start 09/04/16 at 17:00 Acetaminophen (Tylenol) 650 mg PRN Q6HRS PRN PO MILD PAIN / TEMP Last administered on 09/09/16 17:31; Start 09/05/16 at 02:30 Alprazolam (Xanax) 0.5 mg QID PO Last administered on 09/10/16 13:31; Start at 09:00 Metronidazole (Flagyl) 500 mg Q12HR PO Last administered on 09/05/16 20:51; Start 09/05/16 at 09:00; Stop 09/06/16 at 07:25; Status DC Alteplase, Recombinant (Cathflo) 2 mg 1X ONCE INT CAT Last administered on 02:24; Start 09/10/16 at 02:15; Stop 09/10/16 at 02:16; Status DC Furosemide (Lasix) 20 mg 1X ONCE IVP Last administered on 09/10/16t 13:32; Start 09/10/16 at 13:00; Stop 09/10/16 at 13:08; Status DC Active Scripts Active Reported No Known Medications Prior To Admisstion (Info) Each 1 Each Vitals/I & O Vital Sign - Last 24 Hours 09/09/16 09/09/16 09/09/16 09/09/16 16:10 19:09 19:17 19:25 Temp 98.1 98.1 Pulse 105 Resp 16 B/P (MAP) 115/59 (77) Pulse Ox 99 97 97 98 O2 Delivery Tracheal Collar Tracheal Collar Room Air O2 Flow Rate 8.0 8.0 8.0 09/09/16 09/09/16 09/09/16 09/10/16 19:50 20:50 23:25 01:43 Temp 98.5 98.5 Pulse 101 Resp 20 B/P (MAP) 113/68 (83) Pulse Ox 95 O2 Delivery Trach Collar mura valve Tracheal Collar Tracheal Collar O2 Flow Rate 7.0 8.0 09/10/16 09/10/16 09/10/16 09/10/16 03:25 06:38 07:13 07:50 Temp 98.2 87.9 98.2 87.9 Pulse 94 94 Resp 20 20 B/P (MAP) 110/66 (81) 111/76 (88) Pulse Ox 95 98 96 O2 Delivery Tracheal Collar Tracheal Collar Room Air Tracheal Collar O2 Flow Rate 7.0 7.0 09/10/16 09/10/16 09/10/16 09/10/16 11:01 11:15 11:48 13:00 Temp 97.4 97.4 Pulse 96 Resp 20 B/P (MAP) 116/67 (83) Pulse Ox 96 O2 Delivery Tracheal Collar Tracheal Collar Room Air Room Air O2 Flow Rate 7.0 8.0 Intake and Output 09/09/16 09/09/16 09/10/16 15:00 23:00 07:00 Intake Total 240 ml 120 ml Balance 240 ml 120 ml Nutrition Consultation Dietary Evaluation: Recommendations by RD: Increase Calorie Intake, Protein supplementation Comments: -Pt refuses to drink the boost plus protein shakes. Tried the boost breeze protein shakes and agrees. 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
[2016-09-10 19:52] VITALS: BP 120/68
[2016-09-10] MEDS: SERTRALINE 25 MG TABLET. PO SCH (21:18)
[2016-09-10] MEDS: diphenhydrAMINE HCL 25 MG CAPSULE PO PRN (22:03)
[2016-09-10] MEDS: ZOLPIDEM 5 MG TABLET. PO PRN (22:04)
[2016-09-10 22:36] VITALS: BP 115/71
[2016-09-11 02:22] VITALS: BP 110/67
[2016-09-11] MEDS: IBUPROFEN 600 MG TABLET. PO SCH ×3 (03:15→20:39)
[2016-09-11] MEDS: oxyCODONE IR 5 MG TABLET PO PRN ×4 (05:10→20:39)
[2016-09-11 07:00] VITALS: BP 128/80
[2016-09-11] MEDS: IPRATRPIUM/ALBUTEROL 0.5/2.5MG 3 ML NEBU. NEB SCH ×4 (08:02→19:46)
[2016-09-11] MEDS: BUDESONIDE 0.5 MG/2 ML NEBU. NEB SCH ×2 (08:03→19:46)
--- NOTE | 2016-09-11 08:17 | PDOC ---
Infectious Disease Note Subjective Subjective feeling good, walking with support on room air eating ok ROS ROS GEN: Denies fevers, chills, sweats HEENT: Denies blurred vision, sore throat CV: Denies chest pain RESP: Denies shortness of air, cough GI: Denies n/v/d NEURO: Denies confusion, dizziness Vital Sign Vital Signs Vital Signs Date Time Temp Pulse Resp B/P (MAP) Pulse Ox O2 Delivery O2 Flow Rate FiO2 09/11/16 08:05 96 Room Air 09/11/16 07:00 97.4 96 20 128/80 (96) 97.4 09/10/16 19:40 8.0 Physical Exam PHYSICAL EXAM GENERAL: NAD, Alert HEENT: PERRL, OC/OP NECK: Supple, no JVD, no LN LUNGS: Clear HEART: S1S2, no gallop, no murmur ABD: Soft, NT, no organomegaly, no rebound EXT: ++ edema, no cyanosis SUPERVISOR HEAT TREATING: Alert, oriented x 3, no focal neurologic deficit SKIN: No rash IV: ok Objective Assessment MSSA sepsis 08/01 ([facility]) -Repeat BC positive, 08/05 & 08/07. Neg 08/09 Right-sided bacterial endocarditis. -TTE. 3.0 x 2.0cm mobile mass TV Multiple pulmonary nodules/septic emboli Acute Resp failure - Intubated ? developing ARDS. S/p Bronch 08/08. MSSA IV drug use. Hep C Renal insufficiency. Hepatosplenomegaly Loculated fluid s/p chest tubes, removed PEG removal soon Trach removal soon Plan Plan of Care Cont Cefazolin. can be changed to keflex once pt is ready for d/c Cont probiotics d/c home soon MARSHA MORFIN MD September 11, 2016 08:16
[2016-09-11] MEDS: FERROUS SULFATE ORAL 300 MG/5 ML SOLUTION. FT SCH (08:52)
[2016-09-11] MEDS: QUEtiapine 25 MG TABLET. PO SCH (08:54)
[2016-09-11] MEDS: LANSOPRAZOLE 30 MG TAB.RAP.DR FT SCH ×2 (08:54→16:58)
[2016-09-11] MEDS: ALPRAZolam 0.5 MG TABLET PO SCH ×2 (08:54→13:00)
[2016-09-11] MEDS: LACTOBACILLUS ACIDOPH & BULGAR 1 TABLET. PO SCH ×3 (08:54→16:58)
[2016-09-11] MEDS: FLUCONAZOLE 100 MG TABLET. PO SCH (08:54)
--- NOTE | 2016-09-11 09:08 | PDOC ---
G I PROGRESS NOTE Subjective No GI complaints. Wonders when trach and PEG out. Eating and stooling w/o issues. Physical Exam Abdomen benign. Review of Relevant I have reviewed the following items shanta (where applicable) has been applied. Labs Microbiology 08/12/16 Blood Fungal Culture - Final, Complete 08/12/16 Fungal Culture Result 1 - Final, Complete 08/26/16 Gram Stain - Final, Complete 08/22/16 Gram Stain - Final, Complete 08/31/16 Urine Culture - Final, Complete 08/31/16 Urine Culture Result 1 (JAMEY) - Final, Complete Medications Current Medications Amino Acids/ Glycerin/ Electrolytes 1,000 ml @ 100 mls/hr Q10H IV Last administered on 08/05/16 02:40; Start 08/02/16 at 03:00; Stop 08/05/16 at 08:50 ; Status DC Morphine Sulfate 2 mg PRN Q2HR PRN IV SEVERE PAIN Last administered on 11:59; Start 08/02/16 at 02:30; Stop 08/02/16 at 13:28; Status DC Daptomycin 220 mg/ Sodium Chloride 50 ml @ 100 mls/hr Q24H IV ; Start 08/02/16 at 09:15; Stop 08/02/16 at 15:58; Status DC Cefepime HCl 1 gm/ Sodium Chloride 50 ml @ 100 mls/hr Q12HR IV Last administered on 08/04/16 08:10; Start 08/02/16 at 10:00; Stop 08/04/16 at 10:33 ; Status DC Daptomycin 220 mg/ Sodium Chloride 50 ml @ 100 mls/hr ONCE ONCE IV ; Start at 10:00; Stop 08/02/16 at 10:29; Status Cancel Potassium Chloride (Klor-Con) 40 meq 1X ONCE PO Last administered on 10:17; Start 08/02/16 at 09:45; Stop 08/02/16 at 09:46; Status DC Daptomycin 220 mg/ Sodium Chloride 50 ml @ 100 mls/hr Q24H IV Last administered on 08/03/16 09:43; Start 08/02/16 at 10:15; Stop 08/03/16 at 10:29 ; Status DC Potassium Chloride (Klor-Con) 40 meq 1X ONCE PO Last administered on 12:57; Start 08/02/16 at 12:30; Stop 08/02/16 at 12:36; Status DC Morphine Sulfate 5 mg PRN Q2HRS PRN IV MODERATE TO SEVERE PAIN Last administered on 08/26/16 16:15; Start 08/02/16 at 13:30; Stop 08/26/16 at 17:31; Status DC Morphine Sulfate 8 mg PRN Q2HRS PRN IV MODERATE TO SEVERE PAIN Last administered on 08/04/16 14:58; Start 08/02/16 at 13:30; Stop 08/26/16 at 17:31 ; Status DC Acetaminophen (Tylenol) 650 mg PRN Q6HRS PRN PO TEMP GREATER THAN 100.4 Last administered on 08/26/16 00:24; Start 08/02/16 at 14:45; Stop 08/26/16 at 17:31; Status DC Lactated Ringer's 1,000 ml @ 50 mls/hr Q20H IV ; Start 08/05/16 at 07:00; Stop 08/05/16 at 18:13; Status DC Daptomycin 220 mg/ Sodium Chloride 50 ml @ 100 mls/hr Q24H IV ; Start 08/03/16 at 11:00; Status Cancel Potassium Chloride (Klor-Con) 40 meq 1X ONCE PO Last administered on 17:41; Start 08/02/16 at 17:15; Stop 08/02/16 at 17:18; Status DC Potassium Chloride (Klor-Con) 40 meq BIDWMEALS PO ; Start 08/03/16 at 08:00; Stop 08/03/16 at 11:08; Status DC Morphine Sulfate 5 mg 1X ONCE IV Last administered on 08/02/16 21:45; Start 08/02/16 at 21:30; Stop 08/02/16 at 21:33; Status DC Lorazepam (Ativan) 1 mg 1X ONCE IV Last administered on 08/02/16 21:30; Start 08/02/16 at 21:30; Stop 08/02/16 at 21:33; Status DC Acetaminophen (Acetaminophen Supp) 650 mg PRN Q6HRS PRN MI MILD PAIN / TEMP Last administered on 08/13/16 03:13; Start 08/03/16 at 01:15; Stop 08/26/16 at 17:31; Status DC Albuterol/ Ipratropium (Duoneb) 3 ml RTQID NEB Last administered on 09/11/16 08:02; Start 08/03/16 at 08:00 Budesonide (Pulmicort) 0.5 mg RTBID NEB Last administered on 09/11/16 08:03; Start 08/03/16 at 08:00 Pantoprazole Sodium (Protonix Vial) 40 mg 1X ONCE IVP Last administered on 10:06; Start 08/03/16 at 08:00; Stop 08/03/16 at 08:01; Status DC Daptomycin 320 mg/ Sodium Chloride 50 ml @ 100 mls/hr Q24H IV Last administered on 08/04/16 10:03; Start 08/04/16 at 10:00; Stop 08/04/16 at 10:33 ; Status DC Lorazepam (Ativan) 0.5 mg PRN Q6HRS PRN IV ANXIETY / AGITATION Last administered on 08/04/16 09:12; Start 08/03/16 at 11:15; Stop 08/07/16 at 11:02 ; Status DC Lorazepam (Ativan) 0.5 mg 1X ONCE IV Last administered on 08/04/16 10:00; Start 08/04/16 at 10:00; Stop 08/04/16 at 10:01; Status DC Morphine Sulfate 5 mg 1X ONCE IV Last administered on 08/04/16 10:00; Start 08/04/16 at 10:00; Stop 08/04/16 at 10:01; Status DC Lorazepam (Ativan) 0.5 mg PRN Q4HRS PRN IV ANXIETY / AGITATION Last administered on 08/25/16 02:29; Start 08/04/16 at 10:00; Stop 08/26/16 at 17:31; Status DC Nafcillin Sodium 2 gm/Sodium Chloride 100 ml @ 200 mls/hr Q4HRS IV Last administered on 08/09/16 10:10; Start 08/04/16 at 12:00; Stop 08/09/16 at 11:49 ; Status DC Propofol 100 ml @ As Directed STK-MED ONCE IV ; Start 08/04/16 at 16:10; Stop 08/04/16 at 16:11; Status DC Succinylcholine Chloride (Anectine) 200 mg STK-MED ONCE .ROUTE ; Start 08/04/16 at 16:14; Stop 08/04/16 at 16:15; Status DC Succinylcholine Chloride (Anectine) 200 mg 1X ONCE IV ; Start 08/04/16 at 16:45 ; Stop 08/04/16 at 16:46; Status DC Propofol 100 ml @ 0 mls/hr CONT PRN IV SEE I/O RECORD Last administered on 08/17 10:18; Start 08/04/16 at 16:45; Stop 08/26/16 at 17:31; Status DC Lorazepam (Ativan) 0.5 mg 1X ONCE IV Last administered on 08/04/16 16:45; Start 08/04/16 at 16:45; Stop 08/04/16 at 16:46; Status DC Morphine Sulfate 5 mg 1X ONCE IV Last administered on 08/04/16 16:44; Start 08/04/16 at 16:45; Stop 08/04/16 at 16:46; Status DC Fentanyl Citrate 30 ml @ 0 mls/hr CONT PRN IV PROTOCOL Last administered on 07:32; Start 08/04/16 at 16:45; Stop 09/02/16 at 10:45; Status DC Chlorhexidine Gluconate (Peridex) 15 ml BID MM Last administered on 08/17/16 10:18; Start 08/04/16 at 21:00; Stop 08/17/16 at 19:36; Status DC Famotidine (Pepcid) 20 mg BID IVP Last administered on 08/26/16 08:43; Start at 17:00; Stop 08/26/16 at 17:31; Status DC Sodium Chloride 1,000 ml @ 100 mls/hr Q10H IV Last administered on 08/07/16 04:35; Start 08/05/16 at 09:00; Stop 08/07/16 at 08:59; Status DC Succinylcholine Chloride (Anectine) 200 mg STK-MED ONCE .ROUTE ; Start 08/04/16 at 16:00; Stop 08/05/16 at 12:32; Status DC Lorazepam (Ativan) 2 mg 1X ONCE IV Last administered on 08/05/16 20:43; Start 08/05/16 at 21:00; Stop 08/05/16 at 21:01; Status DC Furosemide (Lasix) 40 mg 1X PRN PRN IV blood transfusion Last administered on 14:17; Start 08/06/16 at 08:00; Stop 08/07/16 at 07:59; Status DC Sodium Bicarbonate 50 meq 1X ONCE IV Last administered on 08/06/16 14:06; Start 08/06/16 at 12:00; Stop 08/06/16 at 12:01; Status DC Calcium Chloride 1,000 mg STK-MED ONCE IV ; Start 08/04/16 at 12:00; Stop at 15:13; Status DC Epinephrine HCl (Epinephrine Syringe) 2 mg STK-MED ONCE .ROUTE ; Start 08/04/16 at 12:00; Stop 08/06/16 at 15:13; Status DC Sodium Bicarbonate 100 meq STK-MED ONCE .ROUTE ; Start 08/04/16 at 12:00; Stop 08/06/16 at 15:13; Status DC Amino Acids/ Glycerin/ Electrolytes 1,000 ml @ 100 mls/hr Q10H IV Last administered on 08/08/16 12:33; Start 08/07/16 at 10:00; Stop 08/09/16 at 09:42 ; Status DC Enoxaparin Sodium (Lovenox 40mg Syringe) 40 mg Q24H SQ Last administered on 13:10; Start 08/07/16 at 13:00; Stop 08/10/16 at 10:43; Status DC Vecuronium [place] (Norcuron Bolus) 10 mg STK-MED ONCE IV ; Start 08/07/16 at 13 :56; Stop 08/07/16 at 13:57; Status DC Vecuronium [place] (Norcuron Bolus) 6 mg 1X ONCE IV Last administered on 14:06; Start 08/07/16 at 14:00; Stop 08/07/16 at 14:05; Status DC Sodium Bicarbonate 50 meq 1X ONCE IV Last administered on 08/08/16 11:46; Start 08/08/16 at 11:45; Stop 08/08/16 at 11:46; Status DC Nystatin (Nystop) 1 james BID TP Last administered on 09/10/16 21:18; Start at 21:00; Stop 09/11/16 at 08:18; Status DC Linezolid 300 ml @ 300 mls/hr Q12HR IV Last administered on 08/14/16 20:51; Start 08/09/16 at 09:00; Stop 08/15/16 at 07:21; Status DC Sodium Chloride 1,000 ml @ 20 mls/hr Q24H IV Last administered on 08/26/16 06: 41; Start 08/09/16 at 09:45; Stop 08/27/16 at 13:51; Status DC Sodium Bicarbonate 150 meq/Dextrose 1,150 ml @ 100 mls/hr 1X ONCE IV Last administered on 08/09/16 12:25; Start 08/09/16 at 11:30; Stop 08/09/16 at 22:59 ; Status DC Piperacillin Sod/ Tazobactam Sod (Zosyn Per Pharmacy) 1 each PRN DAILY PRN MC SEE COMMENTS; Start 08/09/16 at 12:00; Stop 08/14/16 at 07:40; Status DC Piperacillin Sod/ Tazobactam Sod 4.5 gm/Sodium Chloride 100 ml @ 200 mls/hr Q6HRS IV Last administered on 08/14/16 05:58; Start 08/09/16 at 12:30; Stop at 07:33; Status DC Vecuronium [place] (Norcuron Bolus) 5 mg PRN Q4HRS PRN IV INCREASED RESPIRATORY ,NOT RELI Last administered on 08/11/16 02:56; Start 08/09/16 at 13:30; Stop at 17:31; Status DC Potassium Chloride 50 ml @ 100 mls/hr Q1H IV ; Start 08/10/16 at 09:30; Stop at 10:59; Status Cancel Potassium Chloride 100 ml @ 100 mls/hr Q1H IV Last administered on 08/10/16 16:28; Start 08/10/16 at 10:30; Stop 08/10/16 at 14:29; Status DC Potassium Chloride (KCl Oral Soln) 60 meq 1X ONCE PEG Last administered on 11:16; Start 08/10/16 at 11:00; Stop 08/10/16 at 11:01; Status DC Sodium Bicarbonate 150 meq/Dextrose 1,150 ml @ 100 mls/hr [id number] IV Last administered on 08/10/16 11:14; Start 08/10/16 at 11:00; Stop 08/10/16 at 22:29 ; Status DC Enoxaparin Sodium (Lovenox 40mg Syringe) 40 mg Q24H SQ ; Start 08/10/16 at 13:00 ; Stop 08/10/16 at 13:00; Status DC Micafungin Sodium 100 mg/Dextrose 100 ml @ 100 mls/hr Q24H IV Last administered on 08/13/16 16:26; Start 08/11/16 at 16:00; Stop 08/14/16 at 07:33 ; Status DC Furosemide (Lasix) 40 mg 1X ONCE IVP Last administered on 08/12/16 08:38; Start 08/12/16 at 08:00; Stop 08/12/16 at 08:06; Status DC Morphine Sulfate 1 mg PRN Q10MIN PRN IV SEVERE PAIN; Start 08/13/16 at 07:00; Stop 08/14/16 at 06:59; Status DC Lactated Ringer's 1,000 ml @ 0 mls/hr Q0M IV ; Start 08/13/16 at 07:00; Stop at 18:59; Status DC Lidocaine HCl 2 ml PRN 1X PRN ID PRIOR TO IV START; Start 08/13/16 at 07:00; Stop 08/14/16 at 06:59; Status DC Hydromorphone HCl (Dilaudid) 0.5 mg PRN Q10MIN PRN IV SEV PAIN, Second choice; Start 08/13/16 at 07:00; Stop 08/14/16 at 06:59; Status DC Prochlorperazine Edisylate (Compazine) 5 mg PACU PRN PRN IV NAUSEA, MRX1; Start 08/13/16 at 07:00; Stop 08/14/16 at 06:59; Status DC Morphine Sulfate 1 mg PRN Q10MIN PRN IV SEVERE PAIN; Start 08/13/16 at 07:00; Stop 08/14/16 at 06:59; Status DC Lactated Ringer's 1,000 ml @ 0 mls/hr Q0M IV ; Start 08/13/16 at 07:00; Stop at 18:59; Status DC Lidocaine HCl 2 ml PRN 1X PRN ID PRIOR TO IV START; Start 08/13/16 at 07:00; Stop 08/14/16 at 06:59; Status DC Hydromorphone HCl (Dilaudid) 0.5 mg PRN Q10MIN PRN IV SEV PAIN, Second choice; Start 08/13/16 at 07:00; Stop 08/14/16 at 06:59; Status DC Prochlorperazine Edisylate (Compazine) 5 mg PACU PRN PRN IV NAUSEA, MRX1; Start 08/13/16 at 07:00; Stop 08/14/16 at 06:59; Status DC Potassium Chloride 50 ml @ 50 mls/hr Q1H IV Last administered on 08/13/16 07: 57; Start 08/13/16 at 07:00; Stop 08/13/16 at 08:59; Status DC Rocuronium [place] (Zemuron) 50 mg STK-MED ONCE .ROUTE ; Start 08/13/16 at 12:50 ; Stop 08/13/16 at 12:51; Status DC Propofol 20 ml @ As Directed STK-MED ONCE IV ; Start 08/13/16 at 12:53; Stop at 12:54; Status DC Sevoflurane (Ultane) 30 ml STK-MED ONCE IH ; Start 08/13/16 at 14:04; Stop 08/13 at 14:05; Status DC Albumin Human 250 ml @ 100 mls/hr 1X ONCE IV Last administered on 08/13/16 23:38; Start 08/13/16 at 18:00; Stop 08/13/16 at 20:29; Status DC Albumin Human 500 ml @ 100 mls/hr 1X ONCE IV Last administered on 08/13/16 18:15; Start 08/13/16 at 18:00; Stop 08/13/16 at 22:59; Status DC Potassium Chloride 50 ml @ 50 mls/hr Q1H IV Last administered on 08/14/16 10: 46; Start 08/14/16 at 08:00; Stop 08/14/16 at 09:59; Status DC Nafcillin Sodium 2 gm/Sodium Chloride 100 ml @ 200 mls/hr Q4HRS IV Last administered on 08/23/16 08:51; Start 08/14/16 at 08:00; Stop 08/23/16 at 10:44; Status DC Enoxaparin Sodium (Lovenox 40mg Syringe) 40 mg Q24H SQ Last administered on 08/25 12:44; Start 08/14/16 at 12:00; Stop 08/26/16 at 11:53; Status DC Potassium Chloride (KCl Oral Soln) 40 meq 1X ONCE PEG Last administered on 07:54; Start 08/16/16 at 07:00; Stop 08/16/16 at 07:01; Status DC Potassium Chloride (KCl Oral Soln) 40 meq 1X ONCE PEG Last administered on 14:01; Start 08/16/16 at 12:00; Stop 08/16/16 at 12:01; Status DC Magnesium Sulfate/ Dextrose 50 ml @ 25 mls/hr 1X ONCE IV Last administered on 08/16/16 17:14; Start 08/16/16 at 16:30; Stop 08/16/16 at 18:29; Status DC Potassium Chloride (Klor-Con) 40 meq 1X ONCE PO ; Start 08/17/16 at 13:30; Stop 08/17/16 at 13:31; Status Cancel Potassium Chloride (KCl Oral Soln) 40 meq 1X ONCE PO Last administered on 08/17 15:34; Start 08/17/16 at 13:30; Stop 08/17/16 at 14:27; Status DC Potassium Chloride 100 ml @ 100 mls/hr PRN Q1HR PRN IV HYPOKALEMIA PER ICU PROTOCOL; Start 08/17/16 at 13:30; Status Cancel Potassium Chloride 50 ml @ 25 mls/hr PRN Q2HR PRN IV HYPOKALEMIA PER ICU PROTOCOL Last administered on 08/21/16 13:29; Start 08/17/16 at 13:30; Stop 08/21 at 13:34; Status DC Potassium Chloride (Klor-Con) 40 meq PRN Q2HR PRN PO HYPOKALEMIA PER ICU PROTOCOL Last administered on 09/04/16 08:04; Start 08/17/16 at 13:30; Stop at 08:32; Status DC Potassium Chloride 100 ml @ 100 mls/hr PRN Q1HR PRN IV HYPOKALEMIA PER ICU PROTOCOL; Start 08/17/16 at 13:30; Stop 09/04/16 at 15:41; Status DC Potassium Chloride 50 ml @ 25 mls/hr PRN Q2HR PRN IV HYPOKALEMIA PER ICU PROTOCOL; Start 08/17/16 at 13:30; Stop 09/04/16 at 15:41; Status DC Potassium Chloride (Klor-Con) 40 meq PRN Q2HR PRN PO HYPOKALEMIA PER ICU PROTOCOL; Start 08/17/16 at 13:30; Stop 09/04/16 at 08:33; Status DC Potassium Chloride 100 ml @ 100 mls/hr PRN Q1HR PRN IV HYPOKALEMIA PER ICU PROTOCOL; Start 08/17/16 at 13:30; Status Cancel Potassium Chloride 50 ml @ 25 mls/hr PRN Q2HR PRN IV HYPOKALEMIA PER ICU PROTOCOL Last administered on 08/27/16 14:37; Start 08/17/16 at 14:00; Stop at 15:41; Status DC Magnesium Sulfate/ Dextrose 100 ml @ 50 mls/hr PRN DAILY PRN IV HYPOMAGNESIA PER ICU PROTOCOL Last administered on 08/20/16 22:26; Start 08/18/16 at 09:00; Stop 09/04/16 at 15:41; Status DC Potassium Phos/ Sodium Phos (Phos-Nak) 1 pkt BID PO ; Start 08/17/16 at 21:00; Stop 08/18/16 at 09:01; Status DC Sodium Phosphate 40 mmol/Dextrose 263.3333 ml @ 62.5 mls/hr PRN 1X PRN IV HYPOPHOSP PER ICU PROTOCOL; Start 08/17/16 at 13:30; Status Cancel Potassium Chloride (KCl Oral Soln) 40 meq 1X ONCE PEG Last administered on 08/19 07:57; Start 08/19/16 at 07:45; Stop 08/19/16 at 07:46; Status DC Potassium Chloride (KCl Oral Soln) 40 meq 1X ONCE PEG Last administered on 08/19 11:36; Start 08/19/16 at 12:00; Stop 08/19/16 at 12:01; Status DC Alprazolam (Xanax) 0.5 mg 1X ONCE PO Last administered on 08/19/16 11:35; Start 08/19/16 at 11:15; Stop 08/19/16 at 11:16; Status DC Alprazolam (Xanax) 0.5 mg TID PEG Last administered on 08/23/16 20:34; Start at 15:00; Stop 08/24/16 at 08:11; Status DC Potassium Chloride 50 ml @ 50 mls/hr Q1H IV Last administered on 08/22/16 09:40 ; Start 08/22/16 at 08:30; Stop 08/22/16 at 10:29; Status DC Haloperidol Lactate (Haldol) 5 mg PRN Q6HRS PRN IVP AGITATION Last administered on 08/31/16 02:14; Start 08/22/16 at 09:15; Stop 09/03/16 at 10:57 ; Status DC Haloperidol Lactate (Haldol) 2 mg 1X ONCE IVP ; Start 08/22/16 at 09:15; Stop at 09:27; Status DC Magnesium Sulfate/ Dextrose 100 ml @ 50 mls/hr DAILY IV Last administered on 10:00; Start 08/23/16 at 09:00; Stop 08/26/16 at 08:59; Status DC Albumin Human 100 ml @ 100 mls/hr [id number] IV Last administered on 08/23/16 17:25 ; Start 08/23/16 at 09:00; Stop 08/23/16 at 16:59; Status DC Furosemide (Lasix) 40 mg [id number] IVP Last administered on 08/23/16 17:26; Start 08/23/16 at 09:00; Stop 08/23/16 at 16:01; Status DC Vitamin A/Vitamin D (Vitamin A & D Ointment) 1 james PRN Q1HR PRN TP SKIN PROTECTION Last administered on 08/31/16 17:52; Start 08/23/16 at 08:45 Cefepime HCl 1 gm/ Sodium Chloride 50 ml @ 100 mls/hr Q8HRS IV Last administered on 09/04/16 05:35; Start 08/23/16 at 14:00; Stop 09/04/16 at 07:57 ; Status DC Ondansetron HCl (Zofran) 4 mg PRN Q6HRS PRN IV NAUSEA/VOMITING Last administered on 08/23/16 19:27; Start 08/23/16 at 19:15 Alprazolam (Xanax) 0.25 mg TID PEG ; Start 08/24/16 at 09:00; Stop 08/24/16 at 09: 28; Status DC Diphenhydramine HCl (Benadryl) 25 mg HS PO ; Start 08/24/16 at 21:00; Stop at 21:00; Status DC Zolpidem Tartrate (Ambien) 5 mg PRN QHS PRN PO INSOMNIA Last administered on 22:04; Start 08/24/16 at 08:15 Alprazolam (Xanax) 0.5 mg TID PEG Last administered on 09/03/16 07:40; Start 08/24/16 at 09:00; Stop 09/03/16 at 10:57; Status DC Diphenhydramine HCl (Benadryl) 25 mg PRN QHS PRN PO sleep Last administered on 09/10/16 22:03; Start 08/24/16 at 21:00 Quetiapine Fumarate (SEROquel) 50 mg HS PO Last administered on 09/02/16 20:38 ; Start 08/24/16 at 21:00; Stop 09/03/16 at 20:55; Status DC Potassium Chloride 50 ml @ 50 mls/hr Q1H IV Last administered on 08/25/16 09:45 ; Start 08/25/16 at 08:00; Stop 08/25/16 at 09:59; Status DC Iohexol (Omnipaque 300 Mg/ml) 75 ml 1X ONCE IV Last administered on 08/25/16 15:45; Start 08/25/16 at 15:45; Stop 08/25/16 at 15:46; Status DC Iohexol (Omnipaque 240 Mg/ml) 50 ml 1X ONCE PO Last administered on 08/25/16 15:45; Start 08/25/16 at 15:45; Stop 08/25/16 at 15:46; Status DC Info (Do NOT chart on this entry -- for MONITORING) 1 each PRN DAILY PRN MC SEE COMMENTS; Start 08/25/16 at 16:00; Stop 08/27/16 at 15:59; Status DC Chlorhexidine Gluconate (Peridex) 15 ml BID SWSP Last administered on 08:17; Start 08/26/16 at 09:00; Stop 09/04/16 at 15:41; Status DC Potassium Chloride 50 ml @ 50 mls/hr Q1H IV ; Start 08/26/16 at 11:30; Stop at 11:30; Status DC Acetaminophen (Tylenol) 650 mg PRN Q6HRS PRN PEG MILD PAIN / TEMP Last administered on 09/03/16 07:40; Start 08/26/16 at 12:00; Stop 09/05/16 at 02:26 ; Status DC Lidocaine/Sodium Bicarbonate (Buffered Lidocaine 1%) 20 ml STK-MED ONCE IJ ; Start 08/26/16 at 14:50; Stop 08/26/16 at 14:51; Status DC Lidocaine/Sodium Bicarbonate (Buffered Lidocaine 1%) 20 ml 1X ONCE IJ Last administered on 08/26/16 15:42; Start 08/26/16 at 15:45; Stop 08/26/16 at 15:46; Status DC Lansoprazole (Prevacid) 30 mg BIDBFRMEAL FT Last administered on 09/11/16 08: 54; Start 08/27/16 at 17:30 Potassium Chloride 50 ml @ 50 mls/hr Q1H IV Last administered on 08/27/16 13:23 ; Start 08/27/16 at 13:00; Stop 08/27/16 at 14:59; Status DC Alteplase, Recombinant 5 mg/ Sterile Water 50 ml @ 0 mls/hr 1X ONCE INT CAT Last administered on 08/28/16 15:03; Start 08/28/16 at 10:45; Stop 08/28/16 at 10:46; Status DC Ferrous Sulfate 300 mg DAILY FT Last administered on 09/11/16 08:52; Start 03/07 at 09:00 Alteplase, Recombinant 5 mg/ Sterile Water 50 ml @ 0 mls/hr 1X ONCE INT CAT Last administered on 08/29/16 11:00; Start 08/29/16 at 11:00; Stop 08/29/16 at 11:01; Status DC Oxycodone/ Acetaminophen (Percocet 5/325) 1 tab PRN BID PRN PO PAIN Last administered on 09/02/16 10:36; Start 08/29/16 at 11:45; Stop 09/02/16 at 10:45 ; Status DC Metronidazole (Flagyl) 500 mg Q12HR PEG Last administered on 09/04/16 21:26; Start 08/30/16 at 09:00; Stop 09/05/16 at 02:26; Status DC Oxycodone HCl (Roxicodone) 10 mg Q4HRS PRN PO PAIN Last administered on 06:32; Start 08/30/16 at 15:15; Stop 09/02/16 at 10:45; Status DC Cholestyramine Resin (Questran Light) 4 gm QIDPMEDS PO Last administered on 18:18; Start 08/31/16 at 10:00; Stop 09/06/16 at 07:25; Status DC Diphenhydramine HCl (Benadryl) 25 mg PRN QHS PRN PO INSOMNIA; Start 08/31/16 at 10:30; Stop 09/03/16 at 10:57; Status DC Oxycodone HCl (Roxicodone) 5 mg Q4HRS PRN PO PAIN Last administered on 08:05; Start 09/02/16 at 10:45; Stop 09/04/16 at 15:42; Status DC Oxycodone HCl (Roxicodone) 10 mg Q4HRS PRN PO PAIN Last administered on 17:52; Start 09/02/16 at 11:00; Stop 09/04/16 at 15:42; Status DC Lactobacillus Acidophilus (Bacid, Jesi-Bid) 1 tab TIDWMEALS PO Last administered on 09/11/16 08:54; Start 09/03/16 at 08:00 Cholestyramine Resin (Questran Light) 4 gm BID@1000,2100 PEG ; Start 09/03/16 at 10:00; Stop 09/03/16 at 10:57; Status DC Alprazolam (Xanax) 0.5 mg QID PEG Last administered on 09/04/16 21:26; Start 09/03/16 at 13:00; Stop 09/05/16 at 02:26; Status DC Sertraline HCl (Zoloft) 25 mg QHS PO Last administered on 09/10/16 21:18; Start 09/03/16 at 21:00 Ibuprofen (Motrin) 600 mg Q8H PO Last administered on 09/10/16 21:18; Start at 11:15 Quetiapine Fumarate (SEROquel) 50 mg DAILY PO Last administered on 09/11/16 08 :54; Start 09/04/16 at 09:00 Cefazolin Sodium 2 gm/Sodium Chloride 50 ml @ 100 mls/hr Q8HRS IV Last administered on 09/11/16 05:12; Start 09/04/16 at 08:00 Potassium Chloride (KCl Oral Soln) 40 meq PRN Q2HR PRN PO HYPOKALEMIA PER ICU PROTOCOL; Start 09/04/16 at 08:45 Potassium Chloride (KCl Oral Soln) 40 meq PRN Q2HR PRN PO HYPOKALEMIA PER ICU PROTOCOL; Start 09/04/16 at 08:45 Barium Sulfate (Varibar Thin Liquid Apple) 148 gm 1X ONCE PO Last administered on 09/04/16 11:20; Start 09/04/16 at 11:15; Stop 09/04/16 at 11:16 ; Status DC Oxycodone HCl (Roxicodone) 10 mg Q5H PRN PO PAIN Last administered on 05:10; Start 09/04/16 at 17:00 Oxycodone HCl (Roxicodone) 5 mg Q5H PRN PO PAIN Last administered on 09/05/16 16:40; Start 09/04/16 at 17:00 Acetaminophen (Tylenol) 650 mg PRN Q6HRS PRN PO MILD PAIN / TEMP Last administered on 09/09/16 17:31; Start 09/05/16 at 02:30 Alprazolam (Xanax) 0.5 mg QID PO Last administered on 09/11/16 08:54; Start at 09:00 Metronidazole (Flagyl) 500 mg Q12HR PO Last administered on 09/05/16 20:51; Start 09/05/16 at 09:00; Stop 09/06/16 at 07:25; Status DC Alteplase, Recombinant (Cathflo) 2 mg 1X ONCE INT CAT Last administered on 02:24; Start 09/10/16 at 02:15; Stop 09/10/16 at 02:16; Status DC Furosemide (Lasix) 20 mg 1X ONCE IVP Last administered on 09/10/16 13:32; Start 09/10/16 at 13:00; Stop 09/10/16 at 13:08; Status DC Fluconazole (Diflucan) 200 mg DAILY PO Last administered on 09/11/16 08:54; Start 09/11/16 at 09:00 Active Scripts Active Reported No Known Medications Prior To Admisstion (Info) Each 1 Each Vitals/I & O Vital Sign - Last 24 Hours 09/10/16 09/10/16 09/10/16 09/10/16 11:01 11:15 11:48 15:00 Temp 97.4 98.1 97.4 98.1 Pulse 96 60 Resp 20 20 B/P (MAP) 116/67 (83) 112/55 (74) Pulse Ox 96 96 O2 Delivery Tracheal Collar Tracheal Collar Room Air Tracheal Collar O2 Flow Rate 7.0 8.0 7.0 09/10/16 09/10/16 09/10/16 09/10/16 16:04 17:02 19:32 19:37 Pulse Ox 98 98 O2 Delivery Tracheal Collar Room Air Tracheal Collar Tracheal Collar O2 Flow Rate 8.0 8.0 8.0 09/10/16 09/10/16 09/10/16 09/10/16 19:40 19:52 22:04 22:36 Temp 98.8 98.2 98.8 98.2 Pulse 109 102 Resp 18 20 20 B/P (MAP) 120/68 (85) 115/71 (86) Pulse Ox 99 99 98 O2 Delivery Trach Collar Room Air Room Air Tracheal Collar O2 Flow Rate 8.0 09/11/16 09/11/16 09/11/16 09/11/16 02:22 05:10 06:10 07:00 Temp 98.3 97.4 98.3 97.4 Pulse 100 96 Resp 20 20 18 20 B/P (MAP) 110/67 (81) 128/80 (96) Pulse Ox 98 98 98 99 O2 Delivery Tracheal Collar Room Air Room Air Tracheal Collar 09/11/16 08:05 Pulse Ox 96 O2 Delivery Room Air Intake and Output 09/10/16 09/10/16 09/11/16 15:00 23:00 07:00 Intake Total 1000 ml 550 ml Output Total 450 ml 900 ml Balance -450 ml 1000 ml -350 ml Assessment No GI issues save PEG. Plan of Care: Continue current Tx, Mgmt Plan of Care Note I'd be happier if could leave PEG in a couple more weeks. Otherwise no objections to discharge at your discretion. RICHAR LITTLE MD September 11, 2016 09:08
[2016-09-11 11:00] VITALS: BP 116/74
--- NOTE | 2016-09-11 15:05 | PDOC ---
PROGRESS NOTES Chief Complaint Chief Complaint Sepsis Acute hypoxic respir failure ASSESSMENT AND PLAN: 1. Sepsis: resolved 2. 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 MSSA. on cefepime (to cover E.coli as well). Abx rx until 09/19 3. PNA: septic emboli w/cavitary lesions. sputum with heavy growth E.coli. 4. Bilateral empyemas: s/p bilat CT placement 08/26, tPA on L; R CT d/c.ed . rpt CT chest on 08/31 with improvement. 5. Acute respiratory failure: traced, PM valve, downsizing trach per pulmonology 6. Diarrhea: C.diff neg. prob due to TF - changed. probiotics 7. Anemia: severe, recurrent: multifactorial, incl severe inflammation, HCV toxicity. inflammation confirmed by iron studies. b12/folate WNL. on daily low dose Fe 8. Thrombocytopenia: 2/2 infection, now resolved. monitor 9. ELMIRA: resolved 10. Hep C: new dx during current admit. F/U on O/P basis for rx 11. Polysubstance abuse: wean narcotics: oxy5 q4 -> q5 PRN. add adjunct NSAIDs, heat. 12. Depression: increase xanax to qid PRN. start Zoloft 13. Malnutrition: eating well, possible PEG removal next week. History of Present Illness History of Present Illness abd discomfort, no pain. in good spirits Vitals Vitals Vital Signs Date Time Temp Pulse Resp B/P (MAP) Pulse Ox O2 Delivery O2 Flow Rate FiO2 09/11/16 12:02 Room Air 09/11/16 11:00 98.4 107 18 116/74 (88) 95 98.4 09/10/16 19:40 8.0 Physical Exam General: Alert, Cooperative, No acute distress Heart: Normal S1, Normal S2, No murmurs Lungs: Other (decrease bs) Abdomen: Normal bowel sounds, Other Extremities: No cyanosis, Other (1+ edema) Skin: No breakdown, No significant lesion Comment Review of Relevant I have reviewed the following items shanta (where applicable) has been applied. Labs Microbiology 08/12/16 Blood Fungal Culture - Final, Complete 08/12/16 Fungal Culture Result 1 - Final, Complete 08/26/16 Gram Stain - Final, Complete 08/22/16 Gram Stain - Final, Complete 08/31/16 Urine Culture - Final, Complete 08/31/16 Urine Culture Result 1 (JAMEY) - Final, Complete Medications Current Medications Amino Acids/ Glycerin/ Electrolytes 1,000 ml @ 100 mls/hr Q10H IV Last administered on 08/05/16 02:40; Start 08/02/16 at 03:00; Stop 08/05/16 at 08:50 ; Status DC Morphine Sulfate 2 mg PRN Q2HR PRN IV SEVERE PAIN Last administered on 11:59; Start 08/02/16 at 02:30; Stop 08/02/16 at 13:28; Status DC Daptomycin 220 mg/ Sodium Chloride 50 ml @ 100 mls/hr Q24H IV ; Start 08/02/16 at 09:15; Stop 08/02/16 at 15:58; Status DC Cefepime HCl 1 gm/ Sodium Chloride 50 ml @ 100 mls/hr Q12HR IV Last administered on 08/04/16 08:10; Start 08/02/16 at 10:00; Stop 08/04/16 at 10:33 ; Status DC Daptomycin 220 mg/ Sodium Chloride 50 ml @ 100 mls/hr ONCE ONCE IV ; Start at 10:00; Stop 08/02/16 at 10:29; Status Cancel Potassium Chloride (Klor-Con) 40 meq 1X ONCE PO Last administered on 10:17; Start 08/02/16 at 09:45; Stop 08/02/16 at 09:46; Status DC Daptomycin 220 mg/ Sodium Chloride 50 ml @ 100 mls/hr Q24H IV Last administered on 08/03/16 09:43; Start 08/02/16 at 10:15; Stop 08/03/16 at 10:29 ; Status DC Potassium Chloride (Klor-Con) 40 meq 1X ONCE PO Last administered on 12:57; Start 08/02/16 at 12:30; Stop 08/02/16 at 12:36; Status DC Morphine Sulfate 5 mg PRN Q2HRS PRN IV MODERATE TO SEVERE PAIN Last administered on 08/26/16 16:15; Start 08/02/16 at 13:30; Stop 08/26/16 at 17:31; Status DC Morphine Sulfate 8 mg PRN Q2HRS PRN IV MODERATE TO SEVERE PAIN Last administered on 08/04/16 14:58; Start 08/02/16 at 13:30; Stop 08/26/16 at 17:31 ; Status DC Acetaminophen (Tylenol) 650 mg PRN Q6HRS PRN PO TEMP GREATER THAN 100.4 Last administered on 08/26/16 00:24; Start 08/02/16 at 14:45; Stop 08/26/16 at 17:31; Status DC Lactated Ringer's 1,000 ml @ 50 mls/hr Q20H IV ; Start 08/05/16 at 07:00; Stop 08/05/16 at 18:13; Status DC Daptomycin 220 mg/ Sodium Chloride 50 ml @ 100 mls/hr Q24H IV ; Start 08/03/16 at 11:00; Status Cancel Potassium Chloride (Klor-Con) 40 meq 1X ONCE PO Last administered on 17:41; Start 08/02/16 at 17:15; Stop 08/02/16 at 17:18; Status DC Potassium Chloride (Klor-Con) 40 meq BIDWMEALS PO ; Start 08/03/16 at 08:00; Stop 08/03/16 at 11:08; Status DC Morphine Sulfate 5 mg 1X ONCE IV Last administered on 08/02/16 21:45; Start 08/02/16 at 21:30; Stop 08/02/16 at 21:33; Status DC Lorazepam (Ativan) 1 mg 1X ONCE IV Last administered on 08/02/16 21:30; Start 08/02/16 at 21:30; Stop 08/02/16 at 21:33; Status DC Acetaminophen (Acetaminophen Supp) 650 mg PRN Q6HRS PRN ID MILD PAIN / TEMP Last administered on 08/13/16 03:13; Start 08/03/16 at 01:15; Stop 08/26/16 at 17:31; Status DC Albuterol/ Ipratropium (Duoneb) 3 ml RTQID NEB Last administered on 09/11/16 12:02; Start 08/03/16 at 08:00 Budesonide (Pulmicort) 0.5 mg RTBID NEB Last administered on 09/11/16 08:03; Start 08/03/16 at 08:00 Pantoprazole Sodium (Protonix Vial) 40 mg 1X ONCE IVP Last administered on 10:06; Start 08/03/16 at 08:00; Stop 08/03/16 at 08:01; Status DC Daptomycin 320 mg/ Sodium Chloride 50 ml @ 100 mls/hr Q24H IV Last administered on 08/04/16 10:03; Start 08/04/16 at 10:00; Stop 08/04/16 at 10:33 ; Status DC Lorazepam (Ativan) 0.5 mg PRN Q6HRS PRN IV ANXIETY / AGITATION Last administered on 08/04/16 09:12; Start 08/03/16 at 11:15; Stop 08/07/16 at 11:02 ; Status DC Lorazepam (Ativan) 0.5 mg 1X ONCE IV Last administered on 08/04/16 10:00; Start 08/04/16 at 10:00; Stop 08/04/16 at 10:01; Status DC Morphine Sulfate 5 mg 1X ONCE IV Last administered on 08/04/16 10:00; Start 08/04/16 at 10:00; Stop 08/04/16 at 10:01; Status DC Lorazepam (Ativan) 0.5 mg PRN Q4HRS PRN IV ANXIETY / AGITATION Last administered on 08/25/16 02:29; Start 08/04/16 at 10:00; Stop 08/26/16 at 17:31; Status DC Nafcillin Sodium 2 gm/Sodium Chloride 100 ml @ 200 mls/hr Q4HRS IV Last administered on 08/09/16 10:10; Start 08/04/16 at 12:00; Stop 08/09/16 at 11:49 ; Status DC Propofol 100 ml @ As Directed STK-MED ONCE IV ; Start 08/04/16 at 16:10; Stop 08/04/16 at 16:11; Status DC Succinylcholine Chloride (Anectine) 200 mg STK-MED ONCE .ROUTE ; Start 08/04/16 at 16:14; Stop 08/04/16 at 16:15; Status DC Succinylcholine Chloride (Anectine) 200 mg 1X ONCE IV ; Start 08/04/16 at 16:45 ; Stop 08/04/16 at 16:46; Status DC Propofol 100 ml @ 0 mls/hr CONT PRN IV SEE I/O RECORD Last administered on 08/17 10:18; Start 08/04/16 at 16:45; Stop 08/26/16 at 17:31; Status DC Lorazepam (Ativan) 0.5 mg 1X ONCE IV Last administered on 08/04/16 16:45; Start 08/04/16 at 16:45; Stop 08/04/16 at 16:46; Status DC Morphine Sulfate 5 mg 1X ONCE IV Last administered on 08/04/16 16:44; Start 08/04/16 at 16:45; Stop 08/04/16 at 16:46; Status DC Fentanyl Citrate 30 ml @ 0 mls/hr CONT PRN IV PROTOCOL Last administered on 07:32; Start 08/04/16 at 16:45; Stop 09/02/16 at 10:45; Status DC Chlorhexidine Gluconate (Peridex) 15 ml BID MM Last administered on 08/17/16 10:18; Start 08/04/16 at 21:00; Stop 08/17/16 at 19:36; Status DC Famotidine (Pepcid) 20 mg BID IVP Last administered on 08/26/16 08:43; Start at 17:00; Stop 08/26/16 at 17:31; Status DC Sodium Chloride 1,000 ml @ 100 mls/hr Q10H IV Last administered on 08/07/16 04:35; Start 08/05/16 at 09:00; Stop 08/07/16 at 08:59; Status DC Succinylcholine Chloride (Anectine) 200 mg STK-MED ONCE .ROUTE ; Start 08/04/16 at 16:00; Stop 08/05/16 at 12:32; Status DC Lorazepam (Ativan) 2 mg 1X ONCE IV Last administered on 08/05/16 20:43; Start 08/05/16 at 21:00; Stop 08/05/16 at 21:01; Status DC Furosemide (Lasix) 40 mg 1X PRN PRN IV blood transfusion Last administered on 14:17; Start 08/06/16 at 08:00; Stop 08/07/16 at 07:59; Status DC Sodium Bicarbonate 50 meq 1X ONCE IV Last administered on 08/06/16 14:06; Start 08/06/16 at 12:00; Stop 08/06/16 at 12:01; Status DC Calcium Chloride 1,000 mg STK-MED ONCE IV ; Start 08/04/16 at 12:00; Stop at 15:13; Status DC Epinephrine HCl (Epinephrine Syringe) 2 mg STK-MED ONCE .ROUTE ; Start 08/04/16 at 12:00; Stop 08/06/16 at 15:13; Status DC Sodium Bicarbonate 100 meq STK-MED ONCE .ROUTE ; Start 08/04/16 at 12:00; Stop 08/06/16 at 15:13; Status DC Amino Acids/ Glycerin/ Electrolytes 1,000 ml @ 100 mls/hr Q10H IV Last administered on 08/08/16 12:33; Start 08/07/16 at 10:00; Stop 08/09/16 at 09:42 ; Status DC Enoxaparin Sodium (Lovenox 40mg Syringe) 40 mg Q24H SQ Last administered on 13:10; Start 08/07/16 at 13:00; Stop 08/10/16 at 10:43; Status DC Vecuronium [place] (Norcuron Bolus) 10 mg STK-MED ONCE IV ; Start 08/07/16 at 13 :56; Stop 08/07/16 at 13:57; Status DC Vecuronium [place] (Norcuron Bolus) 6 mg 1X ONCE IV Last administered on 14:06; Start 08/07/16 at 14:00; Stop 08/07/16 at 14:05; Status DC Sodium Bicarbonate 50 meq 1X ONCE IV Last administered on 08/08/16 11:46; Start 08/08/16 at 11:45; Stop 08/08/16 at 11:46; Status DC Nystatin (Nystop) 1 james BID TP Last administered on 09/10/16 21:18; Start at 21:00; Stop 09/11/16 at 08:18; Status DC Linezolid 300 ml @ 300 mls/hr Q12HR IV Last administered on 08/14/16 20:51; Start 08/09/16 at 09:00; Stop 08/15/16 at 07:21; Status DC Sodium Chloride 1,000 ml @ 20 mls/hr Q24H IV Last administered on 08/26/16 06: 41; Start 08/09/16 at 09:45; Stop 08/27/16 at 13:51; Status DC Sodium Bicarbonate 150 meq/Dextrose 1,150 ml @ 100 mls/hr 1X ONCE IV Last administered on 08/09/16 12:25; Start 08/09/16 at 11:30; Stop 08/09/16 at 22:59 ; Status DC Piperacillin Sod/ Tazobactam Sod (Zosyn Per Pharmacy) 1 each PRN DAILY PRN MC SEE COMMENTS; Start 08/09/16 at 12:00; Stop 08/14/16 at 07:40; Status DC Piperacillin Sod/ Tazobactam Sod 4.5 gm/Sodium Chloride 100 ml @ 200 mls/hr Q6HRS IV Last administered on 08/14/16 05:58; Start 08/09/16 at 12:30; Stop at 07:33; Status DC Vecuronium [place] (Norcuron Bolus) 5 mg PRN Q4HRS PRN IV INCREASED RESPIRATORY ,NOT RELI Last administered on 08/11/16 02:56; Start 08/09/16 at 13:30; Stop at 17:31; Status DC Potassium Chloride 50 ml @ 100 mls/hr Q1H IV ; Start 08/10/16 at 09:30; Stop at 10:59; Status Cancel Potassium Chloride 100 ml @ 100 mls/hr Q1H IV Last administered on 08/10/16 16:28; Start 08/10/16 at 10:30; Stop 08/10/16 at 14:29; Status DC Potassium Chloride (KCl Oral Soln) 60 meq 1X ONCE PEG Last administered on 11:16; Start 08/10/16 at 11:00; Stop 08/10/16 at 11:01; Status DC Sodium Bicarbonate 150 meq/Dextrose 1,150 ml @ 100 mls/hr [id number] IV Last administered on 08/10/16 11:14; Start 08/10/16 at 11:00; Stop 08/10/16 at 22:29 ; Status DC Enoxaparin Sodium (Lovenox 40mg Syringe) 40 mg Q24H SQ ; Start 08/10/16 at 13:00 ; Stop 08/10/16 at 13:00; Status DC Micafungin Sodium 100 mg/Dextrose 100 ml @ 100 mls/hr Q24H IV Last administered on 08/13/16 16:26; Start 08/11/16 at 16:00; Stop 08/14/16 at 07:33 ; Status DC Furosemide (Lasix) 40 mg 1X ONCE IVP Last administered on 08/12/16 08:38; Start 08/12/16 at 08:00; Stop 08/12/16 at 08:06; Status DC Morphine Sulfate 1 mg PRN Q10MIN PRN IV SEVERE PAIN; Start 08/13/16 at 07:00; Stop 08/14/16 at 06:59; Status DC Lactated Ringer's 1,000 ml @ 0 mls/hr Q0M IV ; Start 08/13/16 at 07:00; Stop at 18:59; Status DC Lidocaine HCl 2 ml PRN 1X PRN ID PRIOR TO IV START; Start 08/13/16 at 07:00; Stop 08/14/16 at 06:59; Status DC Hydromorphone HCl (Dilaudid) 0.5 mg PRN Q10MIN PRN IV SEV PAIN, Second choice; Start 08/13/16 at 07:00; Stop 08/14/16 at 06:59; Status DC Prochlorperazine Edisylate (Compazine) 5 mg PACU PRN PRN IV NAUSEA, MRX1; Start 08/13/16 at 07:00; Stop 08/14/16 at 06:59; Status DC Morphine Sulfate 1 mg PRN Q10MIN PRN IV SEVERE PAIN; Start 08/13/16 at 07:00; Stop 08/14/16 at 06:59; Status DC Lactated Ringer's 1,000 ml @ 0 mls/hr Q0M IV ; Start 08/13/16 at 07:00; Stop at 18:59; Status DC Lidocaine HCl 2 ml PRN 1X PRN ID PRIOR TO IV START; Start 08/13/16 at 07:00; Stop 08/14/16 at 06:59; Status DC Hydromorphone HCl (Dilaudid) 0.5 mg PRN Q10MIN PRN IV SEV PAIN, Second choice; Start 08/13/16 at 07:00; Stop 08/14/16 at 06:59; Status DC Prochlorperazine Edisylate (Compazine) 5 mg PACU PRN PRN IV NAUSEA, MRX1; Start 08/13/16 at 07:00; Stop 08/14/16 at 06:59; Status DC Potassium Chloride 50 ml @ 50 mls/hr Q1H IV Last administered on 08/13/16 07: 57; Start 08/13/16 at 07:00; Stop 08/13/16 at 08:59; Status DC Rocuronium [place] (Zemuron) 50 mg STK-MED ONCE .ROUTE ; Start 08/13/16 at 12:50 ; Stop 08/13/16 at 12:51; Status DC Propofol 20 ml @ As Directed STK-MED ONCE IV ; Start 08/13/16 at 12:53; Stop at 12:54; Status DC Sevoflurane (Ultane) 30 ml STK-MED ONCE IH ; Start 08/13/16 at 14:04; Stop 08/13 at 14:05; Status DC Albumin Human 250 ml @ 100 mls/hr 1X ONCE IV Last administered on 08/13/16 23:38; Start 08/13/16 at 18:00; Stop 08/13/16 at 20:29; Status DC Albumin Human 500 ml @ 100 mls/hr 1X ONCE IV Last administered on 08/13/16 18:15; Start 08/13/16 at 18:00; Stop 08/13/16 at 22:59; Status DC Potassium Chloride 50 ml @ 50 mls/hr Q1H IV Last administered on 08/14/16 10: 46; Start 08/14/16 at 08:00; Stop 08/14/16 at 09:59; Status DC Nafcillin Sodium 2 gm/Sodium Chloride 100 ml @ 200 mls/hr Q4HRS IV Last administered on 08/23/16 08:51; Start 08/14/16 at 08:00; Stop 08/23/16 at 10:44; Status DC Enoxaparin Sodium (Lovenox 40mg Syringe) 40 mg Q24H SQ Last administered on 08/25 12:44; Start 08/14/16 at 12:00; Stop 08/26/16 at 11:53; Status DC Potassium Chloride (KCl Oral Soln) 40 meq 1X ONCE PEG Last administered on 07:54; Start 08/16/16 at 07:00; Stop 08/16/16 at 07:01; Status DC Potassium Chloride (KCl Oral Soln) 40 meq 1X ONCE PEG Last administered on 14:01; Start 08/16/16 at 12:00; Stop 08/16/16 at 12:01; Status DC Magnesium Sulfate/ Dextrose 50 ml @ 25 mls/hr 1X ONCE IV Last administered on 08/16/16 17:14; Start 08/16/16 at 16:30; Stop 08/16/16 at 18:29; Status DC Potassium Chloride (Klor-Con) 40 meq 1X ONCE PO ; Start 08/17/16 at 13:30; Stop 08/17/16 at 13:31; Status Cancel Potassium Chloride (KCl Oral Soln) 40 meq 1X ONCE PO Last administered on 08/17 15:34; Start 08/17/16 at 13:30; Stop 08/17/16 at 14:27; Status DC Potassium Chloride 100 ml @ 100 mls/hr PRN Q1HR PRN IV HYPOKALEMIA PER ICU PROTOCOL; Start 08/17/16 at 13:30; Status Cancel Potassium Chloride 50 ml @ 25 mls/hr PRN Q2HR PRN IV HYPOKALEMIA PER ICU PROTOCOL Last administered on 08/21/16 13:29; Start 08/17/16 at 13:30; Stop 08/21 at 13:34; Status DC Potassium Chloride (Klor-Con) 40 meq PRN Q2HR PRN PO HYPOKALEMIA PER ICU PROTOCOL Last administered on 09/04/16 08:04; Start 08/17/16 at 13:30; Stop at 08:32; Status DC Potassium Chloride 100 ml @ 100 mls/hr PRN Q1HR PRN IV HYPOKALEMIA PER ICU PROTOCOL; Start 08/17/16 at 13:30; Stop 09/04/16 at 15:41; Status DC Potassium Chloride 50 ml @ 25 mls/hr PRN Q2HR PRN IV HYPOKALEMIA PER ICU PROTOCOL; Start 08/17/16 at 13:30; Stop 09/04/16 at 15:41; Status DC Potassium Chloride (Klor-Con) 40 meq PRN Q2HR PRN PO HYPOKALEMIA PER ICU PROTOCOL; Start 08/17/16 at 13:30; Stop 09/04/16 at 08:33; Status DC Potassium Chloride 100 ml @ 100 mls/hr PRN Q1HR PRN IV HYPOKALEMIA PER ICU PROTOCOL; Start 08/17/16 at 13:30; Status Cancel Potassium Chloride 50 ml @ 25 mls/hr PRN Q2HR PRN IV HYPOKALEMIA PER ICU PROTOCOL Last administered on 08/27/16 14:37; Start 08/17/16 at 14:00; Stop at 15:41; Status DC Magnesium Sulfate/ Dextrose 100 ml @ 50 mls/hr PRN DAILY PRN IV HYPOMAGNESIA PER ICU PROTOCOL Last administered on 08/20/16 22:26; Start 08/18/16 at 09:00; Stop 09/04/16 at 15:41; Status DC Potassium Phos/ Sodium Phos (Phos-Nak) 1 pkt BID PO ; Start 08/17/16 at 21:00; Stop 08/18/16 at 09:01; Status DC Sodium Phosphate 40 mmol/Dextrose 263.3333 ml @ 62.5 mls/hr PRN 1X PRN IV HYPOPHOSP PER ICU PROTOCOL; Start 08/17/16 at 13:30; Status Cancel Potassium Chloride (KCl Oral Soln) 40 meq 1X ONCE PEG Last administered on 08/19 07:57; Start 08/19/16 at 07:45; Stop 08/19/16 at 07:46; Status DC Potassium Chloride (KCl Oral Soln) 40 meq 1X ONCE PEG Last administered on 08/19 11:36; Start 08/19/16 at 12:00; Stop 08/19/16 at 12:01; Status DC Alprazolam (Xanax) 0.5 mg 1X ONCE PO Last administered on 08/19/16 11:35; Start 08/19/16 at 11:15; Stop 08/19/16 at 11:16; Status DC Alprazolam (Xanax) 0.5 mg TID PEG Last administered on 08/23/16 20:34; Start at 15:00; Stop 08/24/16 at 08:11; Status DC Potassium Chloride 50 ml @ 50 mls/hr Q1H IV Last administered on 08/22/16 09:40 ; Start 08/22/16 at 08:30; Stop 08/22/16 at 10:29; Status DC Haloperidol Lactate (Haldol) 5 mg PRN Q6HRS PRN IVP AGITATION Last administered on 08/31/16 02:14; Start 08/22/16 at 09:15; Stop 09/03/16 at 10:57 ; Status DC Haloperidol Lactate (Haldol) 2 mg 1X ONCE IVP ; Start 08/22/16 at 09:15; Stop at 09:27; Status DC Magnesium Sulfate/ Dextrose 100 ml @ 50 mls/hr DAILY IV Last administered on 10:00; Start 08/23/16 at 09:00; Stop 08/26/16 at 08:59; Status DC Albumin Human 100 ml @ 100 mls/hr [id number] IV Last administered on 08/23/16 17:25 ; Start 08/23/16 at 09:00; Stop 08/23/16 at 16:59; Status DC Furosemide (Lasix) 40 mg [id number] IVP Last administered on 08/23/16 17:26; Start 08/23/16 at 09:00; Stop 08/23/16 at 16:01; Status DC Vitamin A/Vitamin D (Vitamin A & D Ointment) 1 james PRN Q1HR PRN TP SKIN PROTECTION Last administered on 08/31/16 17:52; Start 08/23/16 at 08:45 Cefepime HCl 1 gm/ Sodium Chloride 50 ml @ 100 mls/hr Q8HRS IV Last administered on 09/04/16 05:35; Start 08/23/16 at 14:00; Stop 09/04/16 at 07:57 ; Status DC Ondansetron HCl (Zofran) 4 mg PRN Q6HRS PRN IV NAUSEA/VOMITING Last administered on 08/23/16 19:27; Start 08/23/16 at 19:15 Alprazolam (Xanax) 0.25 mg TID PEG ; Start 08/24/16 at 09:00; Stop 08/24/16 at 09: 28; Status DC Diphenhydramine HCl (Benadryl) 25 mg HS PO ; Start 08/24/16 at 21:00; Stop at 21:00; Status DC Zolpidem Tartrate (Ambien) 5 mg PRN QHS PRN PO INSOMNIA Last administered on 22:04; Start 08/24/16 at 08:15 Alprazolam (Xanax) 0.5 mg TID PEG Last administered on 09/03/16 07:40; Start 08/24/16 at 09:00; Stop 09/03/16 at 10:57; Status DC Diphenhydramine HCl (Benadryl) 25 mg PRN QHS PRN PO sleep Last administered on 09/10/16 22:03; Start 08/24/16 at 21:00 Quetiapine Fumarate (SEROquel) 50 mg HS PO Last administered on 09/02/16 20:38 ; Start 08/24/16 at 21:00; Stop 09/03/16 at 20:55; Status DC Potassium Chloride 50 ml @ 50 mls/hr Q1H IV Last administered on 08/25/16 09:45 ; Start 08/25/16 at 08:00; Stop 08/25/16 at 09:59; Status DC Iohexol (Omnipaque 300 Mg/ml) 75 ml 1X ONCE IV Last administered on 08/25/16 15:45; Start 08/25/16 at 15:45; Stop 08/25/16 at 15:46; Status DC Iohexol (Omnipaque 240 Mg/ml) 50 ml 1X ONCE PO Last administered on 08/25/16 15:45; Start 08/25/16 at 15:45; Stop 08/25/16 at 15:46; Status DC Info (Do NOT chart on this entry -- for MONITORING) 1 each PRN DAILY PRN MC SEE COMMENTS; Start 08/25/16 at 16:00; Stop 08/27/16 at 15:59; Status DC Chlorhexidine Gluconate (Peridex) 15 ml BID SWSP Last administered on 08:17; Start 08/26/16 at 09:00; Stop 09/04/16 at 15:41; Status DC Potassium Chloride 50 ml @ 50 mls/hr Q1H IV ; Start 08/26/16 at 11:30; Stop at 11:30; Status DC Acetaminophen (Tylenol) 650 mg PRN Q6HRS PRN PEG MILD PAIN / TEMP Last administered on 09/03/16 07:40; Start 08/26/16 at 12:00; Stop 09/05/16 at 02:26 ; Status DC Lidocaine/Sodium Bicarbonate (Buffered Lidocaine 1%) 20 ml STK-MED ONCE IJ ; Start 08/26/16 at 14:50; Stop 08/26/16 at 14:51; Status DC Lidocaine/Sodium Bicarbonate (Buffered Lidocaine 1%) 20 ml 1X ONCE IJ Last administered on 08/26/16 15:42; Start 08/26/16 at 15:45; Stop 08/26/16 at 15:46; Status DC Lansoprazole (Prevacid) 30 mg BIDBFRMEAL FT Last administered on 09/11/16 08: 54; Start 08/27/16 at 17:30 Potassium Chloride 50 ml @ 50 mls/hr Q1H IV Last administered on 08/27/16 13:23 ; Start 08/27/16 at 13:00; Stop 08/27/16 at 14:59; Status DC Alteplase, Recombinant 5 mg/ Sterile Water 50 ml @ 0 mls/hr 1X ONCE INT CAT Last administered on 08/28/16 15:03; Start 08/28/16 at 10:45; Stop 08/28/16 at 10:46; Status DC Ferrous Sulfate 300 mg DAILY FT Last administered on 09/11/16 08:52; Start 03/07 at 09:00 Alteplase, Recombinant 5 mg/ Sterile Water 50 ml @ 0 mls/hr 1X ONCE INT CAT Last administered on 08/29/16 11:00; Start 08/29/16 at 11:00; Stop 08/29/16 at 11:01; Status DC Oxycodone/ Acetaminophen (Percocet 5/325) 1 tab PRN BID PRN PO PAIN Last administered on 09/02/16 10:36; Start 08/29/16 at 11:45; Stop 09/02/16 at 10:45 ; Status DC Metronidazole (Flagyl) 500 mg Q12HR PEG Last administered on 09/04/16 21:26; Start 08/30/16 at 09:00; Stop 09/05/16 at 02:26; Status DC Oxycodone HCl (Roxicodone) 10 mg Q4HRS PRN PO PAIN Last administered on 06:32; Start 08/30/16 at 15:15; Stop 09/02/16 at 10:45; Status DC Cholestyramine Resin (Questran Light) 4 gm QIDPMEDS PO Last administered on 18:18; Start 08/31/16 at 10:00; Stop 09/06/16 at 07:25; Status DC Diphenhydramine HCl (Benadryl) 25 mg PRN QHS PRN PO INSOMNIA; Start 08/31/16 at 10:30; Stop 09/03/16 at 10:57; Status DC Oxycodone HCl (Roxicodone) 5 mg Q4HRS PRN PO PAIN Last administered on 08:05; Start 09/02/16 at 10:45; Stop 09/04/16 at 15:42; Status DC Oxycodone HCl (Roxicodone) 10 mg Q4HRS PRN PO PAIN Last administered on 17:52; Start 09/02/16 at 11:00; Stop 09/04/16 at 15:42; Status DC Lactobacillus Acidophilus (Bacid, Jesi-Bid) 1 tab TIDWMEALS PO Last administered on 09/11/16 12:30; Start 09/03/16 at 08:00 Cholestyramine Resin (Questran Light) 4 gm BID@1000,2100 PEG ; Start 09/03/16 at 10:00; Stop 09/03/16 at 10:57; Status DC Alprazolam (Xanax) 0.5 mg QID PEG Last administered on 09/04/16 21:26; Start 09/03/16 at 13:00; Stop 09/05/16 at 02:26; Status DC Sertraline HCl (Zoloft) 25 mg QHS PO Last administered on 09/10/16 21:18; Start 09/03/16 at 21:00 Ibuprofen (Motrin) 600 mg Q8H PO Last administered on 09/11/16 12:29; Start at 11:15 Quetiapine Fumarate (SEROquel) 50 mg DAILY PO Last administered on 09/11/16 08 :54; Start 09/04/16 at 09:00 Cefazolin Sodium 2 gm/Sodium Chloride 50 ml @ 100 mls/hr Q8HRS IV Last administered on 09/11/16 05:12; Start 09/04/16 at 08:00 Potassium Chloride (KCl Oral Soln) 40 meq PRN Q2HR PRN PO HYPOKALEMIA PER ICU PROTOCOL; Start 09/04/16 at 08:45 Potassium Chloride (KCl Oral Soln) 40 meq PRN Q2HR PRN PO HYPOKALEMIA PER ICU PROTOCOL; Start 09/04/16 at 08:45 Barium Sulfate (Varibar Thin Liquid Apple) 148 gm 1X ONCE PO Last administered on 09/04/16 11:20; Start 09/04/16 at 11:15; Stop 09/04/16 at 11:16 ; Status DC Oxycodone HCl (Roxicodone) 10 mg Q5H PRN PO PAIN Last administered on 10:27; Start 09/04/16 at 17:00 Oxycodone HCl (Roxicodone) 5 mg Q5H PRN PO PAIN Last administered on 09/05/16 16:40; Start 09/04/16 at 17:00 Acetaminophen (Tylenol) 650 mg PRN Q6HRS PRN PO MILD PAIN / TEMP Last administered on 09/09/16 17:31; Start 09/05/16 at 02:30 Alprazolam (Xanax) 0.5 mg QID PO Last administered on 09/11/16 08:54; Start at 09:00; Stop 09/11/16 at 14:57; Status DC Metronidazole (Flagyl) 500 mg Q12HR PO Last administered on 09/05/16 20:51; Start 09/05/16 at 09:00; Stop 09/06/16 at 07:25; Status DC Alteplase, Recombinant (Cathflo) 2 mg 1X ONCE INT CAT Last administered on 02:24; Start 09/10/16 at 02:15; Stop 09/10/16 at 02:16; Status DC Furosemide (Lasix) 20 mg 1X ONCE IVP Last administered on 09/10/16 13:32; Start 09/10/16 at 13:00; Stop 09/10/16 at 13:08; Status DC Fluconazole (Diflucan) 200 mg DAILY PO Last administered on 09/11/16 08:54; Start 09/11/16 at 09:00 Alprazolam (Xanax) 1 mg BID PO ; Start 09/11/16 at 21:00; Status UNV Active Scripts Active Reported No Known Medications Prior To Admisstion (Info) Each 1 Each Vitals/I & O Vital Sign - Last 24 Hours 09/10/16 09/10/16 09/10/16 09/10/16 16:04 17:02 19:32 19:37 Pulse Ox 98 98 O2 Delivery Tracheal Collar Room Air Tracheal Collar Tracheal Collar O2 Flow Rate 8.0 8.0 8.0 09/10/16 09/10/16 09/10/16 09/10/16 19:40 19:52 22:04 22:36 Temp 98.8 98.2 98.8 98.2 Pulse 109 102 Resp 18 20 20 B/P (MAP) 120/68 (85) 115/71 (86) Pulse Ox 99 99 98 O2 Delivery Trach Collar Room Air Room Air Tracheal Collar O2 Flow Rate 8.0 09/11/16 09/11/16 09/11/16 09/11/16 02:22 05:10 06:10 07:00 Temp 98.3 97.4 98.3 97.4 Pulse 100 96 Resp 20 20 18 20 B/P (MAP) 110/67 (81) 128/80 (96) Pulse Ox 98 98 98 99 O2 Delivery Tracheal Collar Room Air Tracheal Collar 09/11/16 09/11/16 09/11/16 09/11/16 08:00 08:05 10:27 11:00 Temp 98.4 98.4 Pulse 107 Resp 18 B/P (MAP) 116/74 (88) Pulse Ox 96 95 O2 Delivery Room Air Room Air Room Air Tracheal Collar 09/11/16 09/11/16 11:45 12:02 O2 Delivery Room Air Room Air Intake and Output 09/10/16 09/10/1617 15:00 23:00 07:00 Intake Total 1000 ml 550 ml Output Total 450 ml 900 ml Balance -450 ml 1000 ml -350 ml Nutrition Consultation Dietary Evaluation: Recommendations by RD: Increase Calorie Intake, Protein supplementation Comments: -Pt refuses to drink the boost plus protein shakes. Tried the boost breeze protein shakes and agrees. Add orange/greene Boost Breeze once daily(250 calories/9 grams protein) -D/c the boost pudding, pt refuses -provided alternate menu, pt planning to update food preferences Expected Outcomes/Goals: meet 75% estimated nutrition needs- met Interpretation of weight loss: >7.5% in 3 months Malnutrition Findings: Reduced Manager Photography Strength: N/A Reduced Manager Photography Strength (Non-Sev: N/A Malnutrition related to morbid: No Weight Status: Overweight Fluid Accumulation (N/A): N/A EPHRAIM VALADEZ MD September 11, 2016 15:05
[2016-09-11 15:10] VITALS: BP 108/76
[2016-09-11 19:20] VITALS: BP 116/72
[2016-09-11] MEDS: SERTRALINE 25 MG TABLET. PO SCH (20:38)
[2016-09-11] MEDS: ZOLPIDEM 5 MG TABLET. PO PRN (20:38)
[2016-09-11] MEDS: ALPRAZolam 1 MG TABLET PO SCH (20:38)
[2016-09-11] MEDS: diphenhydrAMINE HCL 25 MG CAPSULE PO PRN (20:39)
[2016-09-11 23:20] VITALS: BP 126/79
[2016-09-12 03:20] VITALS: BP 134/82
[2016-09-12] MEDS: oxyCODONE IR 5 MG TABLET PO PRN ×3 (03:28→13:28)
[2016-09-12] MEDS: IBUPROFEN 600 MG TABLET. PO SCH ×2 (03:28→12:17)
[2016-09-12 07:00] VITALS: BP 111/76
[2016-09-12] MEDS: BUDESONIDE 0.5 MG/2 ML NEBU. NEB SCH (07:50)
[2016-09-12] MEDS: IPRATRPIUM/ALBUTEROL 0.5/2.5MG 3 ML NEBU. NEB SCH ×2 (07:50→11:45)
[2016-09-12] MEDS: FERROUS SULFATE ORAL 300 MG/5 ML SOLUTION. FT SCH (08:30)
[2016-09-12] MEDS: FLUCONAZOLE 100 MG TABLET. PO SCH (08:30)
[2016-09-12] MEDS: LACTOBACILLUS ACIDOPH & BULGAR 1 TABLET. PO SCH ×2 (08:30→12:17)
[2016-09-12] MEDS: QUEtiapine 25 MG TABLET. PO SCH (08:31)
[2016-09-12] MEDS: ALPRAZolam 1 MG TABLET PO SCH (08:31)
[2016-09-12] MEDS: LANSOPRAZOLE 30 MG TAB.RAP.DR FT SCH (08:31)
[2016-09-12 11:00] VITALS: BP 112/68
--- NOTE | 2016-09-12 11:45 | PDOC ---
Objective: Objective: Out of room in shower when I stopped by. D/w RN - possible DC today or tomorrow. No GI concerns. Vital Signs: Vital Signs Date Time Temp Pulse Resp B/P (MAP) Pulse Ox O2 Delivery O2 Flow Rate FiO2 09/12/16 09:30 96 Room Air 8.0 09/12/16 07:00 98.0 86 20 111/76 (88) 98.0 PE: no exam A/P: PEG in place -- DC per primary. PEG removal in a couple weeks. ORQUIDEA ELIZABETH September 12, 2016 11:45
--- NOTE | 2016-09-12 14:22 | PDOC ---
PROGRESS NOTES Chief Complaint Chief Complaint 1. Sepsis 2. Acute hypoxic respir failure 3. Endocarditis 3. PNA 4. Bilateral empyemas 5. Acute respiratory failure 6. Diarrhea 7. Anemia 8. Thrombocytopenia 9. ELMIRA 10. Hep C 11. Polysubstance abuse 12. Depression 13. Malnutrition History of Present Illness History of Present Illness Patient seen this am in in NAD. Patient wants to be D/C. Drs. Peraza and Mi agree with D/C. Gave patient prescription for Keflex. Patient understands plan of action. Vitals Vitals Vital Signs Date Time Temp Pulse Resp B/P (MAP) Pulse Ox O2 Delivery O2 Flow Rate FiO2 09/12/16 13:28 Room Air 09/12/16 11:00 98.0 84 20 112/68 (83) 96 98.0 09/12/16 09:30 8.0 Physical Exam General: Alert, Cooperative, No acute distress Heart: Normal S1, Normal S2, No murmurs Lungs: Other (decrease bs) Abdomen: Normal bowel sounds, Other Extremities: No cyanosis, Other (1+ edema) Skin: No breakdown, No significant lesion Review of Systems Review of Systems No CASANOVA/blurry vision No rashes No JVD Assessment and Plan Assessmemt and Plan Assessment: 1. Sepsis 2. Acute hypoxic respir failure 3. Endocarditis 3. PNA 4. Bilateral empyemas 5. Acute respiratory failure 6. Diarrhea 7. Anemia 8. Thrombocytopenia 9. ELMIRA 10. Hep C 11. Polysubstance abuse 12. Depression 13. Malnutrition Plan: -Continue current medications and adjust accordingly as needed. -Gave patient prescription for Keflex. -Continue speciality consultation. -Continue PT/OT. -Probable D/C today (09/12/16) if all specialities agree. Problems: Comment Review of Relevant I have reviewed the following items shanta (where applicable) has been applied. Labs Microbiology 08/12/16 Blood Fungal Culture - Final, Complete 08/12/16 Fungal Culture Result 1 - Final, Complete 08/26/16 Gram Stain - Final, Complete 08/22/16 Gram Stain - Final, Complete 08/31/16 Urine Culture - Final, Complete 08/31/16 Urine Culture Result 1 (JAMEY) - Final, Complete Medications Current Medications Amino Acids/ Glycerin/ Electrolytes 1,000 ml @ 100 mls/hr Q10H IV Last administered on 08/05/16 02:40; Start 08/02/16 at 03:00; Stop 08/05/16 at 08:50 ; Status DC Morphine Sulfate 2 mg PRN Q2HR PRN IV SEVERE PAIN Last administered on 11:59; Start 08/02/16 at 02:30; Stop 08/02/16 at 13:28; Status DC Daptomycin 220 mg/ Sodium Chloride 50 ml @ 100 mls/hr Q24H IV ; Start 08/02/16 at 09:15; Stop 08/02/16 at 15:58; Status DC Cefepime HCl 1 gm/ Sodium Chloride 50 ml @ 100 mls/hr Q12HR IV Last administered on 08/04/16 08:10; Start 08/02/16 at 10:00; Stop 08/04/16 at 10:33 ; Status DC Daptomycin 220 mg/ Sodium Chloride 50 ml @ 100 mls/hr ONCE ONCE IV ; Start at 10:00; Stop 08/02/16 at 10:29; Status Cancel Potassium Chloride (Klor-Con) 40 meq 1X ONCE PO Last administered on 10:17; Start 08/02/16 at 09:45; Stop 08/02/16 at 09:46; Status DC Daptomycin 220 mg/ Sodium Chloride 50 ml @ 100 mls/hr Q24H IV Last administered on 08/03/16 09:43; Start 08/02/16 at 10:15; Stop 08/03/16 at 10:29 ; Status DC Potassium Chloride (Klor-Con) 40 meq 1X ONCE PO Last administered on 12:57; Start 08/02/16 at 12:30; Stop 08/02/16 at 12:36; Status DC Morphine Sulfate 5 mg PRN Q2HRS PRN IV MODERATE TO SEVERE PAIN Last administered on 08/26/16 16:15; Start 08/02/16 at 13:30; Stop 08/26/16 at 17:31; Status DC Morphine Sulfate 8 mg PRN Q2HRS PRN IV MODERATE TO SEVERE PAIN Last administered on 08/04/16 14:58; Start 08/02/16 at 13:30; Stop 08/26/16 at 17:31 ; Status DC Acetaminophen (Tylenol) 650 mg PRN Q6HRS PRN PO TEMP GREATER THAN 100.4 Last administered on 08/26/16 00:24; Start 08/02/16 at 14:45; Stop 08/26/16 at 17:31; Status DC Lactated Ringer's 1,000 ml @ 50 mls/hr Q20H IV ; Start 08/05/16 at 07:00; Stop 08/05/16 at 18:13; Status DC Daptomycin 220 mg/ Sodium Chloride 50 ml @ 100 mls/hr Q24H IV ; Start 08/03/16 at 11:00; Status Cancel Potassium Chloride (Klor-Con) 40 meq 1X ONCE PO Last administered on 17:41; Start 08/02/16 at 17:15; Stop 08/02/16 at 17:18; Status DC Potassium Chloride (Klor-Con) 40 meq BIDWMEALS PO ; Start 08/03/16 at 08:00; Stop 08/03/16 at 11:08; Status DC Morphine Sulfate 5 mg 1X ONCE IV Last administered on 08/02/16 21:45; Start 08/02/16 at 21:30; Stop 08/02/16 at 21:33; Status DC Lorazepam (Ativan) 1 mg 1X ONCE IV Last administered on 08/02/16 21:30; Start 08/02/16 at 21:30; Stop 08/02/16 at 21:33; Status DC Acetaminophen (Acetaminophen Supp) 650 mg PRN Q6HRS PRN [place] MILD PAIN / TEMP Last administered on 08/13/16 03:13; Start 08/03/16 at 01:15; Stop 08/26/16 at 17:31; Status DC Albuterol/ Ipratropium (Duoneb) 3 ml RTQID NEB Last administered on 09/12/16 07:50; Start 08/03/16 at 08:00 Budesonide (Pulmicort) 0.5 mg RTBID NEB Last administered on 09/12/16 07:50; Start 08/03/16 at 08:00 Pantoprazole Sodium (Protonix Vial) 40 mg 1X ONCE IVP Last administered on 10:06; Start 08/03/16 at 08:00; Stop 08/03/16 at 08:01; Status DC Daptomycin 320 mg/ Sodium Chloride 50 ml @ 100 mls/hr Q24H IV Last administered on 08/04/16 10:03; Start 08/04/16 at 10:00; Stop 08/04/16 at 10:33 ; Status DC Lorazepam (Ativan) 0.5 mg PRN Q6HRS PRN IV ANXIETY / AGITATION Last administered on 08/04/16 09:12; Start 08/03/16 at 11:15; Stop 08/07/16 at 11:02 ; Status DC Lorazepam (Ativan) 0.5 mg 1X ONCE IV Last administered on 08/04/16 10:00; Start 08/04/16 at 10:00; Stop 08/04/16 at 10:01; Status DC Morphine Sulfate 5 mg 1X ONCE IV Last administered on 08/04/16 10:00; Start 08/04/16 at 10:00; Stop 08/04/16 at 10:01; Status DC Lorazepam (Ativan) 0.5 mg PRN Q4HRS PRN IV ANXIETY / AGITATION Last administered on 08/25/16 02:29; Start 08/04/16 at 10:00; Stop 08/26/16 at 17:31; Status DC Nafcillin Sodium 2 gm/Sodium Chloride 100 ml @ 200 mls/hr Q4HRS IV Last administered on 08/09/16 10:10; Start 08/04/16 at 12:00; Stop 08/09/16 at 11:49 ; Status DC Propofol 100 ml @ As Directed STK-MED ONCE IV ; Start 08/04/16 at 16:10; Stop 08/04/16 at 16:11; Status DC Succinylcholine Chloride (Anectine) 200 mg STK-MED ONCE .ROUTE ; Start 08/04/16 at 16:14; Stop 08/04/16 at 16:15; Status DC Succinylcholine Chloride (Anectine) 200 mg 1X ONCE IV ; Start 08/04/16 at 16:45 ; Stop 08/04/16 at 16:46; Status DC Propofol 100 ml @ 0 mls/hr CONT PRN IV SEE I/O RECORD Last administered on 08/17 10:18; Start 08/04/16 at 16:45; Stop 08/26/16 at 17:31; Status DC Lorazepam (Ativan) 0.5 mg 1X ONCE IV Last administered on 08/04/16 16:45; Start 08/04/16 at 16:45; Stop 08/04/16 at 16:46; Status DC Morphine Sulfate 5 mg 1X ONCE IV Last administered on 08/04/16 16:44; Start 08/04/16 at 16:45; Stop 08/04/16 at 16:46; Status DC Fentanyl Citrate 30 ml @ 0 mls/hr CONT PRN IV PROTOCOL Last administered on 07:32; Start 08/04/16 at 16:45; Stop 09/02/16 at 10:45; Status DC Chlorhexidine Gluconate (Peridex) 15 ml BID MM Last administered on 08/17/16 10:18; Start 08/04/16 at 21:00; Stop 08/17/16 at 19:36; Status DC Famotidine (Pepcid) 20 mg BID IVP Last administered on 08/26/16 08:43; Start at 17:00; Stop 08/26/16 at 17:31; Status DC Sodium Chloride 1,000 ml @ 100 mls/hr Q10H IV Last administered on 08/07/16 04:35; Start 08/05/16 at 09:00; Stop 08/07/16 at 08:59; Status DC Succinylcholine Chloride (Anectine) 200 mg STK-MED ONCE .ROUTE ; Start 08/04/16 at 16:00; Stop 08/05/16 at 12:32; Status DC Lorazepam (Ativan) 2 mg 1X ONCE IV Last administered on 08/05/16 20:43; Start 08/05/16 at 21:00; Stop 08/05/16 at 21:01; Status DC Furosemide (Lasix) 40 mg 1X PRN PRN IV blood transfusion Last administered on 14:17; Start 08/06/16 at 08:00; Stop 08/07/16 at 07:59; Status DC Sodium Bicarbonate 50 meq 1X ONCE IV Last administered on 08/06/16 14:06; Start 08/06/16 at 12:00; Stop 08/06/16 at 12:01; Status DC Calcium Chloride 1,000 mg STK-MED ONCE IV ; Start 08/04/16 at 12:00; Stop at 15:13; Status DC Epinephrine HCl (Epinephrine Syringe) 2 mg STK-MED ONCE .ROUTE ; Start 08/04/16 at 12:00; Stop 08/06/16 at 15:13; Status DC Sodium Bicarbonate 100 meq STK-MED ONCE .ROUTE ; Start 08/04/16 at 12:00; Stop 08/06/16 at 15:13; Status DC Amino Acids/ Glycerin/ Electrolytes 1,000 ml @ 100 mls/hr Q10H IV Last administered on 08/08/16 12:33; Start 08/07/16 at 10:00; Stop 08/09/16 at 09:42 ; Status DC Enoxaparin Sodium (Lovenox 40mg Syringe) 40 mg Q24H SQ Last administered on 13:10; Start 08/07/16 at 13:00; Stop 08/10/16 at 10:43; Status DC Vecuronium Temple (Norcuron Bolus) 10 mg STK-MED ONCE IV ; Start 08/07/16 at 13 :56; Stop 08/07/16 at 13:57; Status DC Vecuronium Temple (Norcuron Bolus) 6 mg 1X ONCE IV Last administered on 14:06; Start 08/07/16 at 14:00; Stop 08/07/16 at 14:05; Status DC Sodium Bicarbonate 50 meq 1X ONCE IV Last administered on 08/08/16 11:46; Start 08/08/16 at 11:45; Stop 08/08/16 at 11:46; Status DC Nystatin (Nystop) 1 james BID TP Last administered on 09/10/16 21:18; Start at 21:00; Stop 09/11/16 at 08:18; Status DC Linezolid 300 ml @ 300 mls/hr Q12HR IV Last administered on 08/14/16 20:51; Start 08/09/16 at 09:00; Stop 08/15/16 at 07:21; Status DC Sodium Chloride 1,000 ml @ 20 mls/hr Q24H IV Last administered on 08/26/16 06: 41; Start 08/09/16 at 09:45; Stop 08/27/16 at 13:51; Status DC Sodium Bicarbonate 150 meq/Dextrose 1,150 ml @ 100 mls/hr 1X ONCE IV Last administered on 08/09/16 12:25; Start 08/09/16 at 11:30; Stop 08/09/16 at 22:59 ; Status DC Piperacillin Sod/ Tazobactam Sod (Zosyn Per Pharmacy) 1 each PRN DAILY PRN MC SEE COMMENTS; Start 08/09/16 at 12:00; Stop 08/14/16 at 07:40; Status DC Piperacillin Sod/ Tazobactam Sod 4.5 gm/Sodium Chloride 100 ml @ 200 mls/hr Q6HRS IV Last administered on 08/14/16 05:58; Start 08/09/16 at 12:30; Stop at 07:33; Status DC Vecuronium Temple (Norcuron Bolus) 5 mg PRN Q4HRS PRN IV INCREASED RESPIRATORY ,NOT RELI Last administered on 08/11/16 02:56; Start 08/09/16 at 13:30; Stop at 17:31; Status DC Potassium Chloride 50 ml @ 100 mls/hr Q1H IV ; Start 08/10/16 at 09:30; Stop at 10:59; Status Cancel Potassium Chloride 100 ml @ 100 mls/hr Q1H IV Last administered on 08/10/16 16:28; Start 08/10/16 at 10:30; Stop 08/10/16 at 14:29; Status DC Potassium Chloride (KCl Oral Soln) 60 meq 1X ONCE PEG Last administered on 11:16; Start 08/10/16 at 11:00; Stop 08/10/16 at 11:01; Status DC Sodium Bicarbonate 150 meq/Dextrose 1,150 ml @ 100 mls/hr [id number] IV Last administered on 08/10/16 11:14; Start 08/10/16 at 11:00; Stop 08/10/16 at 22:29 ; Status DC Enoxaparin Sodium (Lovenox 40mg Syringe) 40 mg Q24H SQ ; Start 08/10/16 at 13:00 ; Stop 08/10/16 at 13:00; Status DC Micafungin Sodium 100 mg/Dextrose 100 ml @ 100 mls/hr Q24H IV Last administered on 08/13/16 16:26; Start 08/11/16 at 16:00; Stop 08/14/16 at 07:33 ; Status DC Furosemide (Lasix) 40 mg 1X ONCE IVP Last administered on 08/12/16 08:38; Start 08/12/16 at 08:00; Stop 08/12/16 at 08:06; Status DC Morphine Sulfate 1 mg PRN Q10MIN PRN IV SEVERE PAIN; Start 08/13/16 at 07:00; Stop 08/14/16 at 06:59; Status DC Lactated Ringer's 1,000 ml @ 0 mls/hr Q0M IV ; Start 08/13/16 at 07:00; Stop at 18:59; Status DC Lidocaine HCl 2 ml PRN 1X PRN ID PRIOR TO IV START; Start 08/13/16 at 07:00; Stop 08/14/16 at 06:59; Status DC Hydromorphone HCl (Dilaudid) 0.5 mg PRN Q10MIN PRN IV SEV PAIN, Second choice; Start 08/13/16 at 07:00; Stop 08/14/16 at 06:59; Status DC Prochlorperazine Edisylate (Compazine) 5 mg PACU PRN PRN IV NAUSEA, MRX1; Start 08/13/16 at 07:00; Stop 08/14/16 at 06:59; Status DC Morphine Sulfate 1 mg PRN Q10MIN PRN IV SEVERE PAIN; Start 08/13/16 at 07:00; Stop 08/14/16 at 06:59; Status DC Lactated Ringer's 1,000 ml @ 0 mls/hr Q0M IV ; Start 08/13/16 at 07:00; Stop at 18:59; Status DC Lidocaine HCl 2 ml PRN 1X PRN ID PRIOR TO IV START; Start 08/13/16 at 07:00; Stop 08/14/16 at 06:59; Status DC Hydromorphone HCl (Dilaudid) 0.5 mg PRN Q10MIN PRN IV SEV PAIN, Second choice; Start 08/13/16 at 07:00; Stop 08/14/16 at 06:59; Status DC Prochlorperazine Edisylate (Compazine) 5 mg PACU PRN PRN IV NAUSEA, MRX1; Start 08/13/16 at 07:00; Stop 08/14/16 at 06:59; Status DC Potassium Chloride 50 ml @ 50 mls/hr Q1H IV Last administered on 08/13/16 07: 57; Start 08/13/16 at 07:00; Stop 08/13/16 at 08:59; Status DC Rocuronium Temple (Zemuron) 50 mg STK-MED ONCE .ROUTE ; Start 08/13/16 at 12:50 ; Stop 08/13/16 at 12:51; Status DC Propofol 20 ml @ As Directed STK-MED ONCE IV ; Start 08/13/16 at 12:53; Stop at 12:54; Status DC Sevoflurane (Ultane) 30 ml STK-MED ONCE IH ; Start 08/13/16 at 14:04; Stop 08/13 at 14:05; Status DC Albumin Human 250 ml @ 100 mls/hr 1X ONCE IV Last administered on 08/13/16 23:38; Start 08/13/16 at 18:00; Stop 08/13/16 at 20:29; Status DC Albumin Human 500 ml @ 100 mls/hr 1X ONCE IV Last administered on 08/13/16 18:15; Start 08/13/16 at 18:00; Stop 08/13/16 at 22:59; Status DC Potassium Chloride 50 ml @ 50 mls/hr Q1H IV Last administered on 08/14/16 10: 46; Start 08/14/16 at 08:00; Stop 08/14/16 at 09:59; Status DC Nafcillin Sodium 2 gm/Sodium Chloride 100 ml @ 200 mls/hr Q4HRS IV Last administered on 08/23/16 08:51; Start 08/14/16 at 08:00; Stop 08/23/16 at 10:44; Status DC Enoxaparin Sodium (Lovenox 40mg Syringe) 40 mg Q24H SQ Last administered on 08/25 12:44; Start 08/14/16 at 12:00; Stop 08/26/16 at 11:53; Status DC Potassium Chloride (KCl Oral Soln) 40 meq 1X ONCE PEG Last administered on 07:54; Start 08/16/16 at 07:00; Stop 08/16/16 at 07:01; Status DC Potassium Chloride (KCl Oral Soln) 40 meq 1X ONCE PEG Last administered on 14:01; Start 08/16/16 at 12:00; Stop 08/16/16 at 12:01; Status DC Magnesium Sulfate/ Dextrose 50 ml @ 25 mls/hr 1X ONCE IV Last administered on 08/16/16 17:14; Start 08/16/16 at 16:30; Stop 08/16/16 at 18:29; Status DC Potassium Chloride (Klor-Con) 40 meq 1X ONCE PO ; Start 08/17/16 at 13:30; Stop 08/17/16 at 13:31; Status Cancel Potassium Chloride (KCl Oral Soln) 40 meq 1X ONCE PO Last administered on 08/17 15:34; Start 08/17/16 at 13:30; Stop 08/17/16 at 14:27; Status DC Potassium Chloride 100 ml @ 100 mls/hr PRN Q1HR PRN IV HYPOKALEMIA PER ICU PROTOCOL; Start 08/17/16 at 13:30; Status Cancel Potassium Chloride 50 ml @ 25 mls/hr PRN Q2HR PRN IV HYPOKALEMIA PER ICU PROTOCOL Last administered on 08/21/16 13:29; Start 08/17/16 at 13:30; Stop 08/21 at 13:34; Status DC Potassium Chloride (Klor-Con) 40 meq PRN Q2HR PRN PO HYPOKALEMIA PER ICU PROTOCOL Last administered on 09/04/16 08:04; Start 08/17/16 at 13:30; Stop at 08:32; Status DC Potassium Chloride 100 ml @ 100 mls/hr PRN Q1HR PRN IV HYPOKALEMIA PER ICU PROTOCOL; Start 08/17/16 at 13:30; Stop 09/04/16 at 15:41; Status DC Potassium Chloride 50 ml @ 25 mls/hr PRN Q2HR PRN IV HYPOKALEMIA PER ICU PROTOCOL; Start 08/17/16 at 13:30; Stop 09/04/16 at 15:41; Status DC Potassium Chloride (Klor-Con) 40 meq PRN Q2HR PRN PO HYPOKALEMIA PER ICU PROTOCOL; Start 08/17/16 at 13:30; Stop 09/04/16 at 08:33; Status DC Potassium Chloride 100 ml @ 100 mls/hr PRN Q1HR PRN IV HYPOKALEMIA PER ICU PROTOCOL; Start 08/17/16 at 13:30; Status Cancel Potassium Chloride 50 ml @ 25 mls/hr PRN Q2HR PRN IV HYPOKALEMIA PER ICU PROTOCOL Last administered on 08/27/16 14:37; Start 08/17/16 at 14:00; Stop at 15:41; Status DC Magnesium Sulfate/ Dextrose 100 ml @ 50 mls/hr PRN DAILY PRN IV HYPOMAGNESIA PER ICU PROTOCOL Last administered on 08/20/16 22:26; Start 08/18/16 at 09:00; Stop 09/04/16 at 15:41; Status DC Potassium Phos/ Sodium Phos (Phos-Nak) 1 pkt BID PO ; Start 08/17/16 at 21:00; Stop 08/18/16 at 09:01; Status DC Sodium Phosphate 40 mmol/Dextrose 263.3333 ml @ 62.5 mls/hr PRN 1X PRN IV HYPOPHOSP PER ICU PROTOCOL; Start 08/17/16 at 13:30; Status Cancel Potassium Chloride (KCl Oral Soln) 40 meq 1X ONCE PEG Last administered on 08/19 07:57; Start 08/19/16 at 07:45; Stop 08/19/16 at 07:46; Status DC Potassium Chloride (KCl Oral Soln) 40 meq 1X ONCE PEG Last administered on 08/19 11:36; Start 08/19/16 at 12:00; Stop 08/19/16 at 12:01; Status DC Alprazolam (Xanax) 0.5 mg 1X ONCE PO Last administered on 08/19/16 11:35; Start 08/19/16 at 11:15; Stop 08/19/16 at 11:16; Status DC Alprazolam (Xanax) 0.5 mg TID PEG Last administered on 08/23/16 20:34; Start at 15:00; Stop 08/24/16 at 08:11; Status DC Potassium Chloride 50 ml @ 50 mls/hr Q1H IV Last administered on 08/22/16 09:40 ; Start 08/22/16 at 08:30; Stop 08/22/16 at 10:29; Status DC Haloperidol Lactate (Haldol) 5 mg PRN Q6HRS PRN IVP AGITATION Last administered on 08/31/16 02:14; Start 08/22/16 at 09:15; Stop 09/03/16 at 10:57 ; Status DC Haloperidol Lactate (Haldol) 2 mg 1X ONCE IVP ; Start 08/22/16 at 09:15; Stop at 09:27; Status DC Magnesium Sulfate/ Dextrose 100 ml @ 50 mls/hr DAILY IV Last administered on 10:00; Start 08/23/16 at 09:00; Stop 08/26/16 at 08:59; Status DC Albumin Human 100 ml @ 100 mls/hr [id number] IV Last administered on 08/23/16 17:25 ; Start 08/23/16 at 09:00; Stop 08/23/16 at 16:59; Status DC Furosemide (Lasix) 40 mg [id number] IVP Last administered on 08/23/16 17:26; Start 08/23/16 at 09:00; Stop 08/23/16 at 16:01; Status DC Vitamin A/Vitamin D (Vitamin A & D Ointment) 1 james PRN Q1HR PRN TP SKIN PROTECTION Last administered on 08/31/16 17:52; Start 08/23/16 at 08:45 Cefepime HCl 1 gm/ Sodium Chloride 50 ml @ 100 mls/hr Q8HRS IV Last administered on 09/04/16 05:35; Start 08/23/16 at 14:00; Stop 09/04/16 at 07:57 ; Status DC Ondansetron HCl (Zofran) 4 mg PRN Q6HRS PRN IV NAUSEA/VOMITING Last administered on 08/23/16 19:27; Start 08/23/16 at 19:15 Alprazolam (Xanax) 0.25 mg TID PEG ; Start 08/24/16 at 09:00; Stop 08/24/16 at 09: 28; Status DC Diphenhydramine HCl (Benadryl) 25 mg HS PO ; Start 08/24/16 at 21:00; Stop at 21:00; Status DC Zolpidem Tartrate (Ambien) 5 mg PRN QHS PRN PO INSOMNIA Last administered on 20:38; Start 08/24/16 at 08:15 Alprazolam (Xanax) 0.5 mg TID PEG Last administered on 09/03/16 07:40; Start 08/24/16 at 09:00; Stop 09/03/16 at 10:57; Status DC Diphenhydramine HCl (Benadryl) 25 mg PRN QHS PRN PO sleep Last administered on 09/11/16 20:39; Start 08/24/16 at 21:00 Quetiapine Fumarate (SEROquel) 50 mg HS PO Last administered on 09/02/16 20:38 ; Start 08/24/16 at 21:00; Stop 09/03/16 at 20:55; Status DC Potassium Chloride 50 ml @ 50 mls/hr Q1H IV Last administered on 08/25/16 09:45 ; Start 08/25/16 at 08:00; Stop 08/25/16 at 09:59; Status DC Iohexol (Omnipaque 300 Mg/ml) 75 ml 1X ONCE IV Last administered on 08/25/16 15:45; Start 08/25/16 at 15:45; Stop 08/25/16 at 15:46; Status DC Iohexol (Omnipaque 240 Mg/ml) 50 ml 1X ONCE PO Last administered on 08/25/16 15:45; Start 08/25/16 at 15:45; Stop 08/25/16 at 15:46; Status DC Info (Do NOT chart on this entry -- for MONITORING) 1 each PRN DAILY PRN MC SEE COMMENTS; Start 08/25/16 at 16:00; Stop 08/27/16 at 15:59; Status DC Chlorhexidine Gluconate (Peridex) 15 ml BID SWSP Last administered on 08:17; Start 08/26/16 at 09:00; Stop 09/04/16 at 15:41; Status DC Potassium Chloride 50 ml @ 50 mls/hr Q1H IV ; Start 08/26/16 at 11:30; Stop at 11:30; Status DC Acetaminophen (Tylenol) 650 mg PRN Q6HRS PRN PEG MILD PAIN / TEMP Last administered on 09/03/16 07:40; Start 08/26/16 at 12:00; Stop 09/05/16 at 02:26 ; Status DC Lidocaine/Sodium Bicarbonate (Buffered Lidocaine 1%) 20 ml STK-MED ONCE IJ ; Start 08/26/16 at 14:50; Stop 08/26/16 at 14:51; Status DC Lidocaine/Sodium Bicarbonate (Buffered Lidocaine 1%) 20 ml 1X ONCE IJ Last administered on 08/26/16 15:42; Start 08/26/16 at 15:45; Stop 08/26/16 at 15:46; Status DC Lansoprazole (Prevacid) 30 mg BIDBFRMEAL FT Last administered on 09/12/16 08: 31; Start 08/27/16 at 17:30 Potassium Chloride 50 ml @ 50 mls/hr Q1H IV Last administered on 08/27/16 13:23 ; Start 08/27/16 at 13:00; Stop 08/27/16 at 14:59; Status DC Alteplase, Recombinant 5 mg/ Sterile Water 50 ml @ 0 mls/hr 1X ONCE INT CAT Last administered on 08/28/16 15:03; Start 08/28/16 at 10:45; Stop 08/28/16 at 10:46; Status DC Ferrous Sulfate 300 mg DAILY FT Last administered on 09/12/16 08:30; Start 03/07 at 09:00 Alteplase, Recombinant 5 mg/ Sterile Water 50 ml @ 0 mls/hr 1X ONCE INT CAT Last administered on 08/29/16 11:00; Start 08/29/16 at 11:00; Stop 08/29/16 at 11:01; Status DC Oxycodone/ Acetaminophen (Percocet 5/325) 1 tab PRN BID PRN PO PAIN Last administered on 09/02/16 10:36; Start 08/29/16 at 11:45; Stop 09/02/16 at 10:45 ; Status DC Metronidazole (Flagyl) 500 mg Q12HR PEG Last administered on 09/04/16 21:26; Start 08/30/16 at 09:00; Stop 09/05/16 at 02:26; Status DC Oxycodone HCl (Roxicodone) 10 mg Q4HRS PRN PO PAIN Last administered on 06:32; Start 08/30/16 at 15:15; Stop 09/02/16 at 10:45; Status DC Cholestyramine Resin (Questran Light) 4 gm QIDPMEDS PO Last administered on 18:18; Start 08/31/16 at 10:00; Stop 09/06/16 at 07:25; Status DC Diphenhydramine HCl (Benadryl) 25 mg PRN QHS PRN PO INSOMNIA; Start 08/31/16 at 10:30; Stop 09/03/16 at 10:57; Status DC Oxycodone HCl (Roxicodone) 5 mg Q4HRS PRN PO PAIN Last administered on 08:05; Start 09/02/16 at 10:45; Stop 09/04/16 at 15:42; Status DC Oxycodone HCl (Roxicodone) 10 mg Q4HRS PRN PO PAIN Last administered on 17:52; Start 09/02/16 at 11:00; Stop 09/04/16 at 15:42; Status DC Lactobacillus Acidophilus (Bacid, Jesi-Bid) 1 tab TIDWMEALS PO Last administered on 09/12/16 12:17; Start 09/03/16 at 08:00 Cholestyramine Resin (Questran Light) 4 gm BID@1000,2100 PEG ; Start 09/03/16 at 10:00; Stop 09/03/16 at 10:57; Status DC Alprazolam (Xanax) 0.5 mg QID PEG Last administered on 09/04/16 21:26; Start 09/03/16 at 13:00; Stop 09/05/16 at 02:26; Status DC Sertraline HCl (Zoloft) 25 mg QHS PO Last administered on 09/11/16 20:38; Start 09/03/16 at 21:00 Ibuprofen (Motrin) 600 mg Q8H PO Last administered on 09/12/16 12:17; Start at 11:15 Quetiapine Fumarate (SEROquel) 50 mg DAILY PO Last administered on 09/12/16 08 :31; Start 09/04/16 at 09:00 Cefazolin Sodium 2 gm/Sodium Chloride 50 ml @ 100 mls/hr Q8HRS IV Last administered on 09/12/16 06:32; Start 09/04/16 at 08:00 Potassium Chloride (KCl Oral Soln) 40 meq PRN Q2HR PRN PO HYPOKALEMIA PER ICU PROTOCOL; Start 09/04/16 at 08:45 Potassium Chloride (KCl Oral Soln) 40 meq PRN Q2HR PRN PO HYPOKALEMIA PER ICU PROTOCOL; Start 09/04/16 at 08:45 Barium Sulfate (Varibar Thin Liquid Apple) 148 gm 1X ONCE PO Last administered on 09/04/16 11:20; Start 09/04/16 at 11:15; Stop 09/04/16 at 11:16 ; Status DC Oxycodone HCl (Roxicodone) 10 mg Q5H PRN PO PAIN Last administered on 13:28; Start 09/04/16 at 17:00 Oxycodone HCl (Roxicodone) 5 mg Q5H PRN PO PAIN Last administered on 09/05/16 16:40; Start 09/04/16 at 17:00 Acetaminophen (Tylenol) 650 mg PRN Q6HRS PRN PO MILD PAIN / TEMP Last administered on 09/09/16 17:31; Start 09/05/16 at 02:30 Alprazolam (Xanax) 0.5 mg QID PO Last administered on 09/11/16 08:54; Start at 09:00; Stop 09/11/16 at 14:57; Status DC Metronidazole (Flagyl) 500 mg Q12HR PO Last administered on 09/05/16 20:51; Start 09/05/16 at 09:00; Stop 09/06/16 at 07:25; Status DC Alteplase, Recombinant (Cathflo) 2 mg 1X ONCE INT CAT Last administered on 02:24; Start 09/10/16 at 02:15; Stop 09/10/16 at 02:16; Status DC Furosemide (Lasix) 20 mg 1X ONCE IVP Last administered on 09/10/16 13:32; Start 09/10/16 at 13:00; Stop 09/10/16 at 13:08; Status DC Fluconazole (Diflucan) 200 mg DAILY PO Last administered on 09/12/16 08:30; Start 09/11/16 at 09:00 Alprazolam (Xanax) 1 mg BID PO Last administered on 09/12/16 08:31; Start at 21:00 Active Scripts Active Reported No Known Medications Prior To Admisstion (Info) Each 1 Each Vitals/I & O Vital Sign - Last 24 Hours 09/11/16 09/11/16 09/11/16 09/11/16 15:10 15:34 15:58 19:20 Temp 97.8 98.1 97.8 98.1 Pulse 106 101 Resp 18 22 B/P (MAP) 108/76 (87) 116/72 (87) Pulse Ox 97 98 100 O2 Delivery Tracheal Collar Room Air Room Air 09/11/16 09/11/16 09/11/16 09/11/16 19:46 19:48 20:10 20:39 Resp 20 Pulse Ox 98 98 O2 Delivery Room Air Room Air Room Air Room Air 09/11/16 09/12/16 09/12/16 09/12/16 23:20 03:20 03:28 04:30 Temp 97.9 98.3 97.9 98.3 Pulse 93 95 Resp 20 24 20 18 B/P (MAP) 126/79 (95) 134/82 (99) Pulse Ox 97 96 97 O2 Delivery Room Air Room Air Room Air 09/12/16 09/12/16 09/12/16 09/12/16 07:00 07:45 07:50 08:30 Temp 98.0 98.0 Pulse 86 Resp 20 B/P (MAP) 111/76 (88) Pulse Ox 100 96 96 O2 Delivery Room Air Room Air Room Air Room Air O2 Flow Rate 8.0 09/12/16 09/12/16 09/12/16 09:30 11:00 13:28 Temp 98.0 98.0 Pulse 84 Resp 20 B/P (MAP) 112/68 (83) Pulse Ox 96 96 O2 Delivery Room Air Room Air Room Air O2 Flow Rate 8.0 Intake and Output 09/11/16 09/11/16 09/12/16 15:00 23:00 07:00 Intake Total 580 ml 200 ml Output Total 300 ml 300 ml Balance 280 ml -100 ml Nutrition Consultation Dietary Evaluation: Recommendations by RD: Increase Calorie Intake, Protein supplementation Comments: -Pt refuses to drink the boost plus protein shakes. Tried the boost breeze protein shakes and agrees. Add orange/greene Boost Breeze once daily(250 calories/9 grams protein) -D/c the boost pudding, pt refuses -provided alternate menu, pt planning to update food preferences Expected Outcomes/Goals: meet 75% estimated nutrition needs- met Interpretation of weight loss: >7.5% in 3 months Malnutrition Findings: Reduced Maintenance Data Analyst Strength: N/A Reduced Maintenance Data Analyst Strength (Non-Sev: N/A Malnutrition related to morbid: No Weight Status: Overweight Fluid Accumulation (N/A): N/A CODY BLACK III DO September 12, 2016 14:22
[2016-09-12 15:00] VITALS: BP 115/73
[2016-09-12] MEDS ORDERED: LACT1CAP6 PO (15:04)
[2016-09-12] MEDS ORDERED: LANS30CA17 PO (15:09)
[2016-09-12] MEDS ORDERED: FLUC200T PO (15:09)
[2016-09-12] MEDS ORDERED: SERT25TA PO (15:10)
[2016-09-12] MEDS ORDERED: FERR-26 PO (15:11)
[2016-09-12] MEDS ORDERED: CEPH-263 PO (15:41)
[2016-09-12] MEDS ORDERED: CEPH-264 PO (15:42)
== END 2016-09-12 16:45 | disposition home or self-care (01) | DRG 4 ==
LOC: 2 SOUTH 08-02 01:41 → EDBD 08-02 01:41 → 1 WEST ICU 08-03 00:55 → 2 SOUTH 09-04 17:44
PROVIDERS: ADMIT Internal Medicine; ATTEND Internal Medicine
PROC: 0B998ZX Drainage of Lingula Bronchus, Via Natural or Artificial Opening Endoscopic, Diagnostic (ICD-10-PCS; 2016-08-02)
PROC: 0B988ZX Drainage of Left Upper Lobe Bronchus, Via Natural or Artificial Opening Endoscopic, Diagnostic (ICD-10-PCS; 2016-08-02)
PROC: 0B958ZX Drainage of Right Middle Lobe Bronchus, Via Natural or Artificial Opening Endoscopic, Diagnostic (ICD-10-PCS; 2016-08-02)
PROC: 5A09457 Assistance with Respiratory Ventilation, 24-96 Consecutive Hours, Continuous Positive Airway Pressure (ICD-10-PCS; 2016-08-02)
PROC: 0BH17EZ Insertion of Endotracheal Airway into Trachea, Via Natural or Artificial Opening (ICD-10-PCS; 2016-08-04)
PROC: 5A1955Z Respiratory Ventilation, Greater than 96 Consecutive Hours (ICD-10-PCS; 2016-08-04)
PROC: 30233N1 Transfusion of Nonautologous Red Blood Cells into Peripheral Vein, Percutaneous Approach (ICD-10-PCS; principal; 2016-08-06)
PROC: 0B110F4 Bypass Trachea to Cutaneous with Tracheostomy Device, Open Approach (ICD-10-PCS; 2016-08-13)
PROC: 0DH63UZ Insertion of Feeding Device into Stomach, Percutaneous Approach (ICD-10-PCS; 2016-08-13)
PROC: 0W9B30Z Drainage of Left Pleural Cavity with Drainage Device, Percutaneous Approach (ICD-10-PCS; 2016-08-27)
PROC: 0W9930Z Drainage of Right Pleural Cavity with Drainage Device, Percutaneous Approach (ICD-10-PCS; 2016-08-27)
PROC: 02HV33Z Insertion of Infusion Device into Superior Vena Cava, Percutaneous Approach (ICD-10-PCS; 2016-08-28)
PROC: 3E0L3GC Introduction of Other Therapeutic Substance into Pleural Cavity, Percutaneous Approach (ICD-10-PCS; 2016-08-28)
DX: A41.01 Sepsis due to Methicillin susceptible Staphylococcus aureus (principal); J18.9 Pneumonia, unspecified organism; I26.90 Septic pulmonary embolism without acute cor pulmonale; I33.0 Acute and subacute infective endocarditis; J96.01 Acute respiratory failure with hypoxia; R65.21 Severe sepsis with septic shock; E43 Unspecified severe protein-calorie malnutrition; J86.9 Pyothorax without fistula; E87.0 Hyperosmolality and hypernatremia; E87.1 Hypo-osmolality and hyponatremia; I76 Septic arterial embolism; J44.0 Chronic obstructive pulmonary disease with (acute) lower respiratory infection; K56.7 Ileus, unspecified; N17.9 Acute kidney failure, unspecified; Z99.11 Dependence on respirator [ventilator] status; B18.2 Chronic viral hepatitis C; D64.9 Anemia, unspecified; D69.59 Other secondary thrombocytopenia; E87.5 Hyperkalemia; F17.210 Nicotine dependence, cigarettes, uncomplicated; E87.6 Hypokalemia; F11.10 Opioid abuse, uncomplicated; M54.9 Dorsalgia, unspecified; F19.10 Other psychoactive substance abuse, uncomplicated; F32.9 Major depressive disorder, single episode, unspecified; G47.00 Insomnia, unspecified; I07.1 Rheumatic tricuspid insufficiency; I50.9 Heart failure, unspecified; K21.9 Gastro-esophageal reflux disease without esophagitis; Z82.49 Family history of ischemic heart disease and other diseases of the circulatory system
CPT/HCPCS: 31622; 32557; 36415; 36600; 70450; 71010; 71250; 71260; 73120; 74000; 74177; 74230; 80048; 80053; 80074; 81001; 82040; 82607; 82728; 82746; 82805; 82945; 82947; 83010; 83540; 83550; 83605; 83615; 83735; 83986; 84100; 84132; 84157; 85007; 85027; 85045; 85610; 85651; 86140; 86703; 86850; 86900; 86901; 86920; 87040; 87070; 87071; 87075; 87086; 87102; 87103; 87116; 87186; 87205; 87324; 87641; 88112; 88305; 93306; 93308; 93325; 94002; 94003; 94640; 94660; 94760; A4215; C1729; C1892; C9113; J0171; J0330; J0690; J0692; J0878; J1630; J1650; J1940; J2020; J2060; J2248; J2270; J2405; J2543; J2704; J2997; J3010; J3475; J3480; J3490; J7030; J7060; J7620; P9016; P9041; P9045; P9046; Q0163; Q9966; Q9967; S0028; 92526; 92610; 92611; 97110; 97116; 97530; 97535

== ENCOUNTER 2016-09-18 15:34 | Emergency (ER) | payer SELFPAY ==
[~2016-09-18] VITALS: Ht 162.6 cm; Wt 63.5 kg
[~2016-09-18 15:34] MED LIST: CEPH-263 PO; CEPH-264 PO; FERR-26 PO; FLUC200T PO; LACT1CAP6 PO; LANS30CA17 PO; SERT25TA PO
[2016-09-18] MEDS ORDERED: IV NORMAL SALINE 1000ML BAG 1,000 ML IV SCH (16:28)
[2016-09-18] MEDS ORDERED: 0.9 % SODIUM CHLORIDE 10 ML DISP.SYRIN. IV PRN (16:30)
[2016-09-18] MEDS: fentaNYL PF VIAL 100 MCG/2 ML VIAL IV PRN ×2 (16:40→20:00)
[2016-09-18 16:41] LABS: BASO # 0.1 x10^3/uL (0.0-0.2); BASO % 1 % (0-3); EOS % 1 % (0-3); HEMATOCRIT 34.2 % (36.0-47.0); HEMOGLOBIN 11.2 g/dL (12.0-15.5); LYMPH # 2.6 x10^3/uL (1.0-4.8); LYMPH % 25 % (24-48); MEAN CORPUSCULAR HEMOGLOBIN 30 pg (25-35); MEAN CORPUSCULAR HGB CONC 33 g/dL (31-37); MEAN CORPUSCULAR VOLUME 92 fL (79-100); MONO % 6 % (0-9); NEUT % 67 % (31-73); PLATELET COUNT 217 x10^3/uL (140-400); RED CELL DISTRIBUTION WIDTH 19.2 % (11.5-14.5); WHITE BLOOD COUNT 10.5 x10^3/uL (4.0-11.0)
--- NOTE | 2016-09-18 16:49 | PHYS DOC ---
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 She presents today 6 days after being released from the ICU home for increasing abdominal distention pain in the left lower quadrant as well as progressive swelling in her lower legs. With increasing leg pain. She describes chills and subjective fevers at home without change in medications. She had a tracheostomy removed which is well healing PEG tube placed in the right upper quadrant which is not producing any discharge around the tube itself. She also planes of increased stooling is loose in nature without vomiting or diarrhea. She denies any UTI symptoms denies any vaginal discharge or bleeding. She denies any continued IV drug use after this episode of sepsis. In the hospital she was diagnosed with endocarditis based on echocardiogram with obvious vegetative lesions on the right side of the heart. At this time she denies any change in medications denies any salt intake abnormalities. She does admit that the edema of her upper and lower extremities is improved with mobilization as well as ammunition. She does note that she did fall several days ago and there are 2 weakness generally, But no focal neurologic deficit. She is still taking daily dose of Keflex. Review of Systems Review of Systems Constitutional: She has subjective fevers and chills. Eyes: Denies change in visual acuity, redness, or eye pain [] HENT: Denies nasal congestion or sore throat [] Respiratory: Denies cough or shortness of breath [] Cardiovascular: No additional information not addressed in HPI [] GI: She does complain of abdominal pain diffusely left lower quadrant primarily with nausea without vomiting she does have loose stool but not described as diarrhea. : Denies dysuria or hematuria [] Musculoskeletal: She describes lower back pain with radiation to the legs bilaterally. She denies any actual weakness Integument: She complains of lower extremity swelling +2 posterior pitting edema to the mid thigh Neurologic: Denies headache, focal weakness or sensory changes [] Endocrine: Denies polyuria or polydipsia [] Current Medications Current Medications Current Medications Medications (Trade) Dose Ordered Sig/Cher Start Time Stop Time Status Last Admin Dose Admin Fentanyl Citrate (Fentanyl 2ml Vial) 50 mcg PRN Q15MIN PRN 09/18/16 16:30 09/19/16 16:29 09/18/16 20:00 50 MCG Gadobutrol (Gadavist) 6 mmol 1X ONCE 09/18/16 18:00 09/18/16 18:01 DC 09/18/16 18:21 6 MMOL Info (Do NOT chart on this entry -- for MONITORING) 1 each PRN DAILY PRN 09/18/16 17:30 09/20/16 17:29 Iohexol (Omnipaque 300 Mg/ml) 75 ml 1X ONCE 09/18/16 17:30 09/18/16 17:31 DC 09/18/16 18:49 75 ML Sodium Chloride (Normal Saline Flush) 10 ml QSHIFT PRN 09/18/16 16:30 Allergies Allergies Allergies Coded Allergies Type Severity Reaction Last Updated Verified No Known Drug Allergies 08/13/16 No Physical Exam Physical Exam Constitutional: Well developed, well nourished, no acute distress, non-toxic appearance. [] HENT: Normocephalic, atraumatic, bilateral external ears normal, oropharynx moist, no oral exudates, nose normal. [] Eyes: PERRLA, EOMI, conjunctiva normal, no discharge. [] Neck: Normal range of motion, no tenderness, supple, no stridor. [] Cardiovascular:Heart rate regular rhythm, no murmur [] Lungs & Thorax: Bilateral breath sounds clear to auscultation [] Abdomen: Bowel sounds normal, soft, no tenderness, no masses, no pulsatile masses. [] Skin: Warm, dry, no erythema, no rash. [] Back: No tenderness, no CVA tenderness. [] Extremities: No tenderness, no cyanosis, no clubbing, ROM intact, no edema. [] Neurologic: Alert and oriented X 3, normal motor function, normal sensory function, no focal deficits noted. [] Psychologic: Affect normal, judgement normal, mood normal. [] Current Patient Data Vital Signs Vital Signs Date Time Temp Pulse Resp B/P (MAP) Pulse Ox O2 Delivery O2 Flow Rate FiO2 09/18/16 20:00 17 Room Air 09/18/16 19:40 82 140/101 (114) 98 09/18/16 16:01 97.1 97.1 Lab Values Laboratory Tests Test 09/18/16 16:10 09/18/16 18:56 09/18/16 19:30 White Blood Count 10.5 x10^3/uL (4.0-11.0) Red Blood Count 3.70 x10^6/uL (3.50-5.40) Hemoglobin 11.2 g/dL (12.0-15.5) L Hematocrit 34.2 % (36.0-47.0) L Mean Corpuscular Volume 92 fL (79-100) Mean Corpuscular Hemoglobin 30 pg (25-35) Mean Corpuscular Hemoglobin Concent 33 g/dL (31-37) Red Cell Distribution Width 19.2 % (11.5-14.5) H Platelet Count 217 x10^3/uL (140-400) Neutrophils (%) (Auto) 67 % (31-73) Lymphocytes (%) (Auto) 25 % (24-48) Monocytes (%) (Auto) 6 % (0-9) Eosinophils (%) (Auto) 1 % (0-3) Basophils (%) (Auto) 1 % (0-3) Neutrophils # (Auto) 7.0 x10^3uL (1.8-7.7) Lymphocytes # (Auto) 2.6 x10^3/uL (1.0-4.8) Monocytes # (Auto) 0.7 x10^3/uL (0.0-1.1) Eosinophils # (Auto) 0.1 x10^3/uL (0.0-0.7) Basophils # (Auto) 0.1 x10^3/uL (0.0-0.2) Sodium Level 137 mmol/L (136-145) Potassium Level 4.0 mmol/L (3.5-5.1) Chloride Level 102 mmol/L (98-107) Carbon Dioxide Level 25 mmol/L (21-32) Anion Gap 10 (6-14) Blood Urea Nitrogen 10 mg/dL (7-20) Creatinine 0.4 mg/dL (0.6-1.0) L Estimated GFR (Cockcroft-Gault) 175.0 BUN/Creatinine Ratio 25 (6-20) H Glucose Level 90 mg/dL (70-99) Lactic Acid Level 1.3 mmol/L (0.4-2.0) Calcium Level 8.8 mg/dL (8.5-10.1) Total Bilirubin 0.7 mg/dL (0.2-1.0) Aspartate Amino Transferase (AST) 23 U/L (15-37) Alanine Aminotransferase (ALT) 15 U/L (14-59) Alkaline Phosphatase 320 U/L (46-116) H Creatine Kinase 11 U/L (26-192) L Creatine Kinase MB (Mass) < 0.5 ng/mL (0.0-3.6) Creatine Kinase MB Relative Index 4.5 % (0-4) H Troponin I Quantitative < 0.017 ng/mL (0.000-0.055) Total Protein 7.8 g/dL (6.4-8.2) Albumin 2.1 g/dL (3.4-5.0) L Albumin/Globulin Ratio 0.4 (1.0-1.7) L Lipase 60 U/L (73-393) L POC Urine HCG, Qualitative Hcg negative (Negative) Urine Collection Type Unknown Urine Color Yellow Urine Clarity Clear Urine pH 7.5 Urine Specific [place] >=1.030 Urine Protein Negative mg/dL (NEG-TRACE) Urine Glucose (UA) Negative mg/dL (NEG) Urine Ketones (Stick) Negative mg/dL (NEG) Urine Blood Trace (NEG) Urine Nitrite Negative (NEG) Urine Bilirubin Negative (NEG) Urine Urobilinogen Dipstick 1.0 mg/dL (0.2 mg/dL) Urine Leukocyte Esterase Moderate (NEG) Urine RBC 3-5 /HPF (0-2) Urine WBC 20-40 /HPF (0-4) Urine Squamous Epithelial Cells Many /LPF Urine Bacteria Few /HPF (0-FEW) Urine Yeast Present /HPF Urine Opiates Screen Pos (NEG) Urine Methadone Screen Neg (NEG) Urine Barbiturates Neg (NEG) Urine Phencyclidine Screen Neg (NEG) Urine Amphetamine/Methamphetamine Neg (NEG) Urine Benzodiazepines Screen Pos (NEG) Urine Cocaine Screen Neg (NEG) Urine Cannabinoids Screen Neg (NEG) Urine Ethyl Alcohol Neg (NEG) Laboratory Tests 09/18/16 16:10 Laboratory Tests 09/18/16 16:10 EKG EKG Patient's EKG timed 1653 09/18/2016 demonstrates normal sinus rhythm with a heart rate of 85 NC interval is normal at 1:30 QRS interval is normal 94 QT normal at 426. QTC is prolongated mildly elongated at 507. There is no P wave abdomen bowel is is no ST segment elevations or changes there are some T-wave inversions laterally read by Dr. Esposito.[] Radiology/Procedures Radiology/Procedures [] IMAGING REPORT Signed PATIENT: SPENSER MATHEW ACCOUNT: [id number] : 1975 LOCATION: ER AGE: 41 SEX: F EXAM STATUS: REG ER ORD. PHYSICIAN: HERNANDO ESPOSITO MD REASON: V drug abuser with increased weakness and pain in her lower extremity is. PROCEDURE: LUMBAR SPINE WO/W CONTRAST Indication: BACK PAIN WITH LEG WEAKNESS POST FALL, NO SX HX, NO PRIORS, 10ML GADAVIST Procedure: Multiplanar multisequence MRI images obtained through the lumbar spine with and without intravenous contrast. Comparison: None. Findings: Marrow: Normal signal intensity. Alignment: Anatomic. Other: No other finding. No enhancing phlegmon. T12-L1: No disc bulge. No significant central canal or neuroforaminal stenosis. L1-L2: No disc bulge. No significant central canal or neuroforaminal stenosis. L2-L3: No disc bulge. No significant central canal or neuroforaminal stenosis. L3-L4: No disc bulge. No significant central canal or neuroforaminal stenosis. L4-L5: No disc bulge. No significant central canal or neuroforaminal stenosis. L5-S1: Mild disc osteophyte complex with edema of the adjacent vertebral body endplates. Central canal patent. Mild neural foraminal narrowing. Impression: Mild degenerative changes at L5-S1 with endplate edema and mild bilateral neural foraminal stenosis. Electronically signed by: Brian Palacios MD (09/18/2016 7:13 PM) DICTATED and SIGNED BY: BRIAN PALACIOS MD DATE: 09/18/16 116 CC: HERNANDO ESPOSITO MD; WILLI STARR DO ~ [facility] [address] [place] [address] IMAGING REPORT Signed PATIENT: SPENSER MATHEW ACCOUNT: [id number] : 1975 LOCATION: ER AGE: 41 SEX: F EXAM STATUS: REG ER ORD. PHYSICIAN: HERNANDO ESPOSITO MD REASON: V drug abuser with increased weakness and pain in her lower extremity is. PROCEDURE: THORACIC SPINE WO/W CONTRAST INDICATION: UPPER BACK PAIN POST FALL, NO SX HX, NO PRIORS, 10ML GADAVIST COMPARISON: None. TECHNIQUE: Multiplanar, multisequence MRI images are obtained through the thoracic spine with and without intravenous contrast. FINDINGS: There is loculated appearing pleural effusion within the bilateral lungs with patchy regions of airspace disease. There is possible aneurysmal dilatation of the ascending thoracic aorta but not well evaluated on this exam secondary to motion. There are prominent regions of low T2 signal seen within the central canal throughout the thoracic spine. There is a T2 hyperintense lesion measuring 11 mm in one of the midthoracic vertebral bodies. Incompletely suppresses on STIR. No definite acute fracture. Thoracic spine alignment well maintained. IMPRESSION: No definite thoracic spine fracture. There is a prominent regions of low T2 signal seen throughout the thoracic spinal canal. This could be secondary to prominent flow artifact but cannot exclude alternative causes such as AV fistula. Within the partially visualized chest there is loculated pleural effusions as well as patchy opacities within the bilateral lungs. Could be infectious or inflammatory in nature but neoplastic causes not excluded. The descending thoracic aorta is poorly seen on this exam but there may be a thoracic aortic aneurysm identified. Follow-up CT of the chest could better evaluate. There is a T2 hyperintense lesion within the mid thoracic vertebral bodies. Could be secondary to atypical hemangioma but given that this incompletely suppresses on STIR follow-up examination could be obtained in a year to ensure no growth. Possible disc bulge narrowing the central canal at partially visualized cervical spine. This is only partially seen on this exam. Electronically signed by: Brian Palacios MD (09/18/2016 7:30 PM) DICTATED and SIGNED BY: BRIAN PALACIOS MD DATE: 09/18/16 1913 CC: HERNANDO ESPOSITO MD; WILLI STARR DO ~ Course & Med Decision Making Course & Med Decision Making Pertinent Labs and Imaging studies reviewed. (See chart for details) [] Dragon Disclaimer Dragon Disclaimer This electronic medical record was generated, in whole or in part, using a voice recognition dictation system. Departure Departure Referrals: WILLI STARR DO (PCP) Scripts Lorazepam (ATIVAN) 1 Mg Tablet 1 MG PO BID Y for ANXIETY / AGITATION for 7 Days, #14 TAB Prov: HERNANDO ESPOSITO MD 09/18/16 Ciprofloxacin Hcl (CIPRO) 500 Mg Tablet 1 TAB PO BID, #20 TAB Prov: HERNANDO ESPOSITO MD 09/18/16 HERNANDO ESPOSITO MD September 18, 2016 16:49
[2016-09-18 17:01] LABS: CALCIUM 8.8 mg/dL (8.5-10.1); CREATININE 0.4 mg/dL (0.6-1.0)
[2016-09-18 17:07] LABS: ALBUMIN 2.1 g/dL (3.4-5.0); ALBUMIN/GLOBULIN RATIO 0.4 (1.0-1.7); TOTAL BILIRUBIN 0.7 mg/dL (0.2-1.0); TOTAL PROTEIN 7.8 g/dL (6.4-8.2)
[2016-09-18 17:14] LABS: CREATINE KINASE 11 U/L (26-192)
[2016-09-18 17:21] LABS: CKMB MASS < 0.5 ng/mL (0.0-3.6)
[2016-09-18] MEDS ORDERED: IOHEXOL 300 MG/ML 75 ML VIAL IV ONE (17:30)
[2016-09-18] MEDS ORDERED: CONTRAST GIVEN MC PRN (17:30)
[2016-09-18] MEDS ORDERED: GADOBUTROL 7.5 MMOL/7.5 ML VIAL IV ONE (18:00)
--- NOTE | 2016-09-18 18:08 | EKG ---
[facility] [address] [place] [address] Test Date: 2016-09-18 Test Time: 16:53:57 Pat Name: SPENSER MATHEW Department: Room: Gender: F [employer] Department Worker: : 1975 Requested By: HERNANDO ESPOSITO Order Number: [id number] Reading MD: Mark Reddy Measurements Intervals [place] Rate: 85 P: 20 [place]: 130 QRS: 61 QRSD: 94 T: 138 QT: 426 QTc: 507 Interpretive Statements SINUS RHYTHM LOW LIMB LEAD VOLTAGE T ABNORMALITY IN ANTEROLATERAL LEADS Electronically Signed On 09-22-2016 12:53:02 CDT by Mark Reddy
--- NOTE | 2016-09-18 19:16 | RAD ---
Indication: BACK PAIN WITH LEG WEAKNESS POST FALL, NO SX HX, NO PRIORS, 10ML GADAVIST Procedure: Multiplanar multisequence MRI images obtained through the lumbar spine with and without intravenous contrast. Comparison: None. Findings: Marrow: Normal signal intensity. Alignment: Anatomic. Other: No other finding. No enhancing phlegmon. T12-L1: No disc bulge. No significant central canal or neuroforaminal stenosis. L1-L2: No disc bulge. No significant central canal or neuroforaminal stenosis. L2-L3: No disc bulge. No significant central canal or neuroforaminal stenosis. L3-L4: No disc bulge. No significant central canal or neuroforaminal stenosis. L4-L5: No disc bulge. No significant central canal or neuroforaminal stenosis. L5-S1: Mild disc osteophyte complex with edema of the adjacent vertebral body endplates. Central canal patent. Mild neural foraminal narrowing. Impression: Mild degenerative changes at L5-S1 with endplate edema and mild bilateral neural foraminal stenosis. Electronically signed by: Zhou Carbtree MD (09/18/2016 7:13 PM)
--- NOTE | 2016-09-18 19:33 | RAD ---
INDICATION: UPPER BACK PAIN POST FALL, NO SX HX, NO PRIORS, 10ML GADAVIST COMPARISON: None. TECHNIQUE: Multiplanar, multisequence MRI images are obtained through the thoracic spine with and without intravenous contrast. FINDINGS: There is loculated appearing pleural effusion within the bilateral lungs with patchy regions of airspace disease. There is possible aneurysmal dilatation of the ascending thoracic aorta but not well evaluated on this exam secondary to motion. There are prominent regions of low T2 signal seen within the central canal throughout the thoracic spine. There is a T2 hyperintense lesion measuring 11 mm in one of the midthoracic vertebral bodies. Incompletely suppresses on STIR. No definite acute fracture. Thoracic spine alignment well maintained. IMPRESSION: No definite thoracic spine fracture. There is a prominent regions of low T2 signal seen throughout the thoracic spinal canal. This could be secondary to prominent flow artifact but cannot exclude alternative causes such as AV fistula. Within the partially visualized chest there is loculated pleural effusions as well as patchy opacities within the bilateral lungs. Could be infectious or inflammatory in nature but neoplastic causes not excluded. The descending thoracic aorta is poorly seen on this exam but there may be a thoracic aortic aneurysm identified. Follow-up CT of the chest could better evaluate. There is a T2 hyperintense lesion within the mid thoracic vertebral bodies. Could be secondary to atypical hemangioma but given that this incompletely suppresses on STIR follow-up examination could be obtained in a year to ensure no growth. Possible disc bulge narrowing the central canal at partially visualized cervical spine. This is only partially seen on this exam. Electronically signed by: Zhou Crabtree MD (09/18/2016 7:30 PM)
[2016-09-18 19:40] VITALS: BP 140/101
[2016-09-18 19:45] LABS: BILIRUBIN,URINE NEGATIVE (NEG); GLUCOSE,URINE NEGATIVE (NEG); NITRITE,URINE NEGATIVE (NEG); PH,URINE 7.5; PROTEIN,URINE NEGATIVE (NEG-TRACE)
--- NOTE | 2016-09-18 19:53 | RAD ---
INDICATION: low abd pain, nausea and diarrhea since this am, [id number] 75ml, recent prior sent COMPARISON: August 25, 2016 TECHNIQUE: Axial CT images were obtained through the abdomen and pelvis with intravenous contrast. One or more of the following individualized dose reduction techniques were utilized for this examination: 1. Automated exposure control; 2. Adjustment of the mA and/or kV according to patient size; 3. Use of iterative reconstruction technique. FINDINGS: There is loculated effusions at left lung base with loculated hydropneumothorax at left lung base with thick coppola. There is patchy opacities in the bilateral lungs. The abdominal aorta is not grossly aneurysmal. Moderate ascites. Edema throughout soft tissues. Low attenuation of liver. Liver is enlarged. Percutaneous gastrostomy. The pancreas enhances. Spleen unremarkable. No hydronephrosis. Appendix not well seen. The colon is not very distended with prominence of wall seen. No definite dilated loops of bowel suggest obstruction. There are some mild sclerotic foci seen within the pelvis. Most common causes bone island unless the patient has history of neoplasm. IMPRESSION: 1. At the partially visualized lung bases there is a loculated hydropneumothorax at the left lung base as well as loculated pleural effusion at right lung base. Could be effusions or empyema. There is patchy opacity seen within the bilateral lungs which could be infectious or inflammatory in nature but follow-up could be obtained to ensure these resolve to exclude neoplastic cause. 2. Ascites and diffuse edema throughout the soft tissues. 3. The colon is not very distended but the wall is mildly prominent. Could be reactive to the adjacent ascites but cannot exclude colonic inflammation. 4. Hepatomegaly with low attenuation of liver. Would correlate with symptoms of hepatic disease. Electronically signed by: Zhou Crabtree MD (09/18/2016 7:49 PM)
[2016-09-18 19:56] LABS: BARBITURATES NEG (NEG); BENZODIAZEPINES POS (NEG); CANNABINOIDS NEG (NEG); COCAINE NEG (NEG); METHADONE NEG (NEG); OPIATES POS (NEG); PHENCYCLIDINE NEG (NEG)
[2016-09-18 19:58] LABS: BACTERIA,URINE FEW /HPF (0-FEW); SQUAMOUS EPITHELIAL CELL,UR MANY /LPF; WBC,URINE 20-40 /HPF (0-4); YEAST,URINE PRESENT /HPF
[2016-09-18] MEDS ORDERED: CIPR500T94 PO (20:38)
[2016-09-18] MEDS ORDERED: LORA-434 PO (20:38)
== END 2016-09-18 20:48 | disposition home or self-care (01) ==
LOC: ER 15:34
DX: R10.32 Left lower quadrant pain (principal); F41.9 Anxiety disorder, unspecified; F32.9 Major depressive disorder, single episode, unspecified; Z90.49 Acquired absence of other specified parts of digestive tract; Z98.890 Other specified postprocedural states
CPT/HCPCS: 36415; 72157; 72158; 74177; 80053; 80305; 80320; 81001; 81025; 82553; 83605; 83690; 84484; 85027; 87040; 93005; 96361; 96374; 96375; 96376; 99285; J3010; J7030; Q9967; G0481; A9585

== ENCOUNTER 2016-10-21 21:11 | Emergency (ER) | payer SELFPAY ==
[~2016-10-21] VITALS: Ht 162.6 cm; Wt 51.3 kg
[~2016-10-21 21:11] MED LIST changes: +CARV3.12 PO; +CIPR500T94 PO; +FURO-69 PO; -LANS30CA17 PO; +LANS30CA66 PO; +LISI2.5T PO; +LORA-434 PO; +POTA20TA82 PO
--- NOTE | 2016-10-21 21:26 | PHYS DOC ---
Past Medical History Past Medical History: Anxiety, Depression, Renal Failure, Other Additional Past Medical Histor: iv drug use Past Surgical History: Appendectomy, , Tonsillectomy Alcohol Use: None Drug Use: Other Adult General Chief Complaint Chief Complaint: RIB PAIN HPI HPI Patient is a 41 year old female who presents with bilateral leg pains , shortness of breath, generalized weakness and abdominal distention. She states all the symptoms started about a week ago and they've been slowly getting worse. She states she ran out of her Percocet and then ask yesterday and now she started to feel panicky because of her shortness of breath. She denies any chest pain, nausea vomiting fevers or chills. Review of Systems Review of Systems Constitutional: Denies fever or chills [] Eyes: Denies change in visual acuity, redness, or eye pain [] HENT: Denies nasal congestion or sore throat [] Respiratory: Denies cough, shortness of breath [] Cardiovascular: No additional information not addressed in HPI [] GI: Denies abdominal pain, nausea, vomiting, bloody stools or diarrhea [] : Denies dysuria or hematuria [] Musculoskeletal: Denies back pain or joint pain [] Integument: Denies rash or skin lesions [] Neurologic: Denies headache, focal weakness or sensory changes [] Endocrine: Denies polyuria or polydipsia [] Current Medications Current Medications Current Medications Medications (Trade) Dose Ordered Sig/[facility] Start Time Stop Time Status Last Admin Dose Admin Lorazepam (Ativan) 1 mg 1X ONCE 10/21/16 22:00 10/21/16 22:01 DC 10/21/16 21:55 1 MG Morphine Sulfate 4 mg PRN Q15MIN PRN 10/21/16 21:30 10/22/16 21:29 10/21/16 21:56 4 MG Allergies Allergies Allergies Coded Allergies Type Severity Reaction Last Updated Verified No Known Drug Allergies 10/01/16 No Physical Exam Physical Exam Constitutional: Cachectic appearing, no acute distress, non-toxic appearance. [] HENT: Normocephalic, atraumatic, bilateral external ears normal, oropharynx moist, no oral exudates, nose normal. [] Eyes: PERRLA, EOMI, conjunctiva normal, no discharge. [] Neck: Normal range of motion, no tenderness, supple, no stridor. [] Cardiovascular:Heart rate regular rhythm, no murmur [] Lungs & Thorax: Bilateral breath sounds clear to auscultation [] Abdomen: Bowel sounds normal, soft, no tenderness, mildly distended, no masses, no pulsatile masses. [] Skin: Warm, dry, no erythema, no rash. [] Back: No tenderness, no CVA tenderness. [] Extremities: Palpation bilateral calves no cords appreciated, no cyanosis, no clubbing, ROM intact, no edema. [] Neurologic: Alert and oriented X 3, normal motor function, normal sensory function, no focal deficits noted. [] Psychologic: Affect normal, judgement normal, mood normal. [] Current Patient Data Vital Signs Vital Signs Date Time Temp Pulse Resp B/P (MAP) Pulse Ox O2 Delivery O2 Flow Rate FiO2 10/21/16 22:52 90 124/79 (94) 96 Room Air 10/21/16 21:56 18 10/21/16 21:18 98.4 98.4 Lab Values Laboratory Tests Test 10/21/16 21:17 10/21/16 21:30 Urine Collection Type Unknown Urine Color Yellow Urine Clarity Clear Urine pH 6.0 Urine Specific [place] 1.020 Urine Protein Negative mg/dL (NEG-TRACE) Urine Glucose (UA) Negative mg/dL (NEG) Urine Ketones (Stick) Negative mg/dL (NEG) Urine Blood Negative (NEG) Urine Nitrite Negative (NEG) Urine Bilirubin Negative (NEG) Urine Urobilinogen Dipstick 1.0 mg/dL (0.2 mg/dL) Urine Leukocyte Esterase Small (NEG) Urine RBC Occ /HPF (0-2) Urine WBC 1-4 /HPF (0-4) Urine Squamous Epithelial Cells Mod /LPF Urine Bacteria Moderate /HPF (0-FEW) Urine Mucus Slight /LPF Urine Opiates Screen Pos (NEG) Urine Methadone Screen Neg (NEG) Urine Barbiturates Neg (NEG) Urine Phencyclidine Screen Neg (NEG) Urine Amphetamine/Methamphetamine Neg (NEG) Urine Benzodiazepines Screen Neg (NEG) Urine Cocaine Screen Neg (NEG) Urine Cannabinoids Screen Neg (NEG) Urine Ethyl Alcohol Neg (NEG) White Blood Count 10.3 x10^3/uL (4.0-11.0) Red Blood Count 4.19 x10^6/uL (3.50-5.40) Hemoglobin 13.4 g/dL (12.0-15.5) Hematocrit 40.8 % (36.0-47.0) Mean Corpuscular Volume 97 fL (79-100) Mean Corpuscular Hemoglobin 32 pg (25-35) Mean Corpuscular Hemoglobin Concent 33 g/dL (31-37) Red Cell Distribution Width 17.4 % (11.5-14.5) H Platelet Count 207 x10^3/uL (140-400) Neutrophils (%) (Auto) 56 % (31-73) Lymphocytes (%) (Auto) 31 % (24-48) Monocytes (%) (Auto) 8 % (0-9) Eosinophils (%) (Auto) 4 % (0-3) H Basophils (%) (Auto) 1 % (0-3) Neutrophils # (Auto) 5.7 x10^3uL (1.8-7.7) Lymphocytes # (Auto) 3.2 x10^3/uL (1.0-4.8) Monocytes # (Auto) 0.8 x10^3/uL (0.0-1.1) Eosinophils # (Auto) 0.4 x10^3/uL (0.0-0.7) Basophils # (Auto) 0.1 x10^3/uL (0.0-0.2) Prothrombin Time 14.5 SEC (11.7-14.0) H Prothrombin Time INR 1.2 (0.8-1.1) H Sodium Level 138 mmol/L (136-145) Potassium Level 4.9 mmol/L (3.5-5.1) Chloride Level 103 mmol/L (98-107) Carbon Dioxide Level 24 mmol/L (21-32) Anion Gap 11 (6-14) Blood Urea Nitrogen 28 mg/dL (7-20) H Creatinine 0.7 mg/dL (0.6-1.0) Estimated GFR (Cockcroft-Gault) 91.8 Glucose Level 75 mg/dL (70-99) Calcium Level 9.2 mg/dL (8.5-10.1) Magnesium Level 1.8 mg/dL (1.8-2.4) Total Bilirubin 0.5 mg/dL (0.2-1.0) Direct Bilirubin 0.3 mg/dL (0.0-0.2) H Aspartate Amino Transferase (AST) 44 U/L (15-37) H Alanine Aminotransferase (ALT) 52 U/L (14-59) Alkaline Phosphatase 292 U/L (46-116) H Creatine Kinase 112 U/L (26-192) Creatine Kinase MB (Mass) < 0.5 ng/mL (0.0-3.6) Creatine Kinase MB Relative Index % (0-4) Troponin I Quantitative < 0.017 ng/mL (0.000-0.055) YF-Gcm-L-Type Natriuretic Peptide 1340 pg/mL (0-124) H Total Protein 8.8 g/dL (6.4-8.2) H Albumin 3.9 g/dL (3.4-5.0) Lipase 321 U/L (73-393) Thyroid Stimulating Hormone (TSH) 1.120 uIU/mL (0.358-3.74) Laboratory Tests 10/21/16 21:30 Laboratory Tests 10/21/16 21:30 EKG EKG EKG shows sinus rhythm with rate of [address] elevations or T-wave inversions, normal axis, QTC 420 ms, as interpreted by me. Radiology/Procedures Radiology/Procedures [facility] [address] [place], [place] [id number] IMAGING REPORT Signed PATIENT: SPENSER MATHEW ACCOUNT: [id number] : 1975 LOCATION: ER AGE: 41 SEX: F EXAM STATUS: REG ER ORD. PHYSICIAN: PAULETTE TRIPLETT MD REASON: calf pain PROCEDURE: VENOUS LOWER EXT BILATERAL Indication: Bilateral calf pain. Grayscale, color-flow and duplex Doppler evaluation of bilateral lower extremity deep venous systems was performed. FINDINGS: There is no evidence of right or left lower extremity DVT. Both lower extremity deep venous systems showed normal compressibility with normal response to augmentation and Valsalva. No fluid collection or mass is detected. IMPRESSION: No evidence of right or left lower extremity DVT. Electronically signed by: Jaspreet Giordano MD (10/21/2016 10:28 PM) DICTATED and SIGNED BY: JASPREET GIORDANO MD DATE: 10/21/162226 CC: PAULETTE TRIPLETT MD; WILLI STARR DO ~ One view chest x-ray did not show any focal consolidations, bony abnormalities, pneumothorax, as interpreted by me. Impressions: Dyspnea Course & Med Decision Making Course & Med Decision Making Pertinent Labs and Imaging studies reviewed. (See chart for details) Labs showed an elevated B and P, chest x-ray, ultrasound of bilateral lower extremities do not show any acute abnormalities. I do not suspect that she has a PE. Her BNP is slightly elevated she's been on Lasix but she states her belly feels a little more distended. We'll give 21 g IV Lasix and discharged home. I' m refilling her 0.25 mg Xanax and Percocet. She is to follow-up with primary care physician return precautions given she is agreeable plan her is being discharged in stable condition at this time. Dragon Disclaimer Dragon Disclaimer This electronic medical record was generated, in whole or in part, using a voice recognition dictation system. Departure Departure Impression: Primary Impression: CHF (congestive heart failure) Disposition: 01 HOME, SELF-CARE Condition: STABLE Referrals: WILLI STARR DO (PCP) Patient Instructions: Heart Failure Additional Instructions: You were seen tonight for your congestive heart failure. You received IV Lasix and your being discharged home. The ultrasound of your legs did not show any blood clots. You are feeling better after received Lasix, Ativan and pain meds. Return back to ER if you have worsening shortness of breath, develop fevers or you have other concerns. Scripts Alprazolam (XANAX) 0.25 Mg Tablet 0.25 MG PO PRN Q8HRS Y for ANXIETY / AGITATION, #30 TAB 0 Refills Prov: PAULETTE TRIPLETT MD 10/22/16 Oxycodone/Apap 5-325 (PERCOCET 5-325 MG TABLET) 1 Each Tablet 1-2 TAB PO Q6HRS Y for PAIN, #20 TAB Prov: PAULETTE TRIPLETT MD 10/22/16 Problem Qualifiers Primary Impression: CHF (congestive heart failure) Congestive heart failure type: unspecified congestive heart failure type Congestive heart failure chronicity: acute on chronic Qualified Codes: I50.9 - Heart failure, unspecified PAULETTE TRIPLETT MD Oct 21, 2016 21:26
[2016-10-21] MEDS ORDERED: MORPHINE SULFATE 4 MG/ML DISP.SYRIN. IV/SQ PRN (21:30)
[2016-10-21 21:40] LABS: BASO # 0.1 x10^3/uL (0.0-0.2); BASO % 1 % (0-3); EOS % 4 % (0-3); HEMATOCRIT 40.8 % (36.0-47.0); HEMOGLOBIN 13.4 g/dL (12.0-15.5); LYMPH # 3.2 x10^3/uL (1.0-4.8); LYMPH % 31 % (24-48); MEAN CORPUSCULAR HEMOGLOBIN 32 pg (25-35); MEAN CORPUSCULAR HGB CONC 33 g/dL (31-37); MEAN CORPUSCULAR VOLUME 97 fL (79-100); MONO % 8 % (0-9); NEUT % 56 % (31-73); PLATELET COUNT 207 x10^3/uL (140-400); RED BLOOD COUNT 4.19 x10^6/uL (3.50-5.40); RED CELL DISTRIBUTION WIDTH 17.4 % (11.5-14.5); WHITE BLOOD COUNT 10.3 x10^3/uL (4.0-11.0)
[2016-10-21 21:43] LABS: BILIRUBIN,URINE NEGATIVE (NEG); GLUCOSE,URINE NEGATIVE (NEG); NITRITE,URINE NEGATIVE (NEG); PROTEIN,URINE NEGATIVE (NEG-TRACE)
[2016-10-21 21:49] LABS: BARBITURATES NEG (NEG); BENZODIAZEPINES NEG (NEG); CANNABINOIDS NEG (NEG); COCAINE NEG (NEG); METHADONE NEG (NEG); OPIATES POS (NEG); PHENCYCLIDINE NEG (NEG)
[2016-10-21 21:56] LABS: BACTERIA,URINE MODERATE /HPF (0-FEW); RBC,URINE OCC /HPF (0-2); SQUAMOUS EPITHELIAL CELL,UR MOD /LPF
[2016-10-21 21:57] LABS: INR 1.2 (0.8-1.1); PROTHROMBIN TIME PATIENT 14.5 SEC (11.7-14.0)
[2016-10-21 21:59] LABS: CALCIUM 9.2 mg/dL (8.5-10.1); CREATININE 0.7 mg/dL (0.6-1.0); GFR 91.8; POTASSIUM 4.9 mmol/L (3.5-5.1)
[2016-10-21 22:04] LABS: ALBUMIN 3.9 g/dL (3.4-5.0); DIRECT BILIRUBIN 0.3 mg/dL (0.0-0.2); MAGNESIUM 1.8 mg/dL (1.8-2.4); TOTAL BILIRUBIN 0.5 mg/dL (0.2-1.0); TOTAL PROTEIN 8.8 g/dL (6.4-8.2)
[2016-10-21 22:12] LABS: CREATINE KINASE 112 U/L (26-192)
--- NOTE | 2016-10-21 22:31 | RAD ---
Indication: Bilateral calf pain. Grayscale, color-flow and duplex Doppler evaluation of bilateral lower extremity deep venous systems was performed. FINDINGS: There is no evidence of right or left lower extremity DVT. Both lower extremity deep venous systems showed normal compressibility with normal response to augmentation and Valsalva. No fluid collection or mass is detected. IMPRESSION: No evidence of right or left lower extremity DVT. Electronically signed by: Jaspreet Giordano MD (10/21/2016 10:28 PM)
[2016-10-21 22:34] LABS: CKMB MASS < 0.5 ng/mL (0.0-3.6)
[2016-10-22] MEDS ORDERED: OXYC-323 PO (00:39)
[2016-10-22] MEDS ORDERED: ALPR0.25 PO (00:39)
[2016-10-22] MEDS ORDERED: FUROSEMIDE 20 MG/2 ML VIAL. IVP ONE (01:00)
[2016-10-22 01:01] VITALS: BP 117/73
--- NOTE | 2016-10-22 08:58 | RAD ---
Indication chest pain for 2 weeks. A single view of the chest was obtained and is compared to an examination 09/26/2016. Heart size is unchanged. There is no acute parenchymal infiltrate. Significant pleural fluid is not present. There is no pneumothorax. IMPRESSION: No acute or focal process is seen in the chest
--- NOTE | 2016-10-22 10:19 | EKG ---
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
== END 2016-10-22 01:10 | disposition home or self-care (01) ==
LOC: ER 21:11
DX: I50.9 Heart failure, unspecified (principal); F41.9 Anxiety disorder, unspecified; F32.9 Major depressive disorder, single episode, unspecified; Z90.49 Acquired absence of other specified parts of digestive tract; Z98.890 Other specified postprocedural states
CPT/HCPCS: 36415; 71010; 80048; 80076; 80305; 80320; 81001; 82553; 83690; 83735; 83880; 84443; 84484; 85027; 85610; 87086; 93005; 93970; 96374; 96375; 99285; J2060; J2270; G0481

== ENCOUNTER 2016-11-04 13:30 | Emergency (ER) | payer SELFPAY ==
[~2016-11-04] VITALS: Ht 162.6 cm; Wt 49.9 kg
[~2016-11-04 13:30] MED LIST changes: +ALPR0.25 PO; +OXYC-323 PO
[2016-11-04 14:30] LABS: BASO # 0.1 x10^3/uL (0.0-0.2); BASO % 1 % (0-3); EOS % 3 % (0-3); HEMATOCRIT 47.4 % (36.0-47.0); HEMOGLOBIN 15.8 g/dL (12.0-15.5); LYMPH # 2.8 x10^3/uL (1.0-4.8); LYMPH % 33 % (24-48); MEAN CORPUSCULAR HEMOGLOBIN 32 pg (25-35); MEAN CORPUSCULAR HGB CONC 33 g/dL (31-37); MEAN CORPUSCULAR VOLUME 97 fL (79-100); MONO % 8 % (0-9); NEUT % 55 % (31-73); PLATELET COUNT 171 x10^3/uL (140-400); RED BLOOD COUNT 4.91 x10^6/uL (3.50-5.40); RED CELL DISTRIBUTION WIDTH 15.4 % (11.5-14.5); WHITE BLOOD COUNT 8.4 x10^3/uL (4.0-11.0)
[2016-11-04] MEDS ORDERED: ONDANSETRON PF 4 MG/2 ML VIAL. IV ONE (14:30)
[2016-11-04] MEDS ORDERED: IV NORMAL SALINE 1000ML BAG 1,000 ML IV ONE (14:30)
[2016-11-04 14:31] LABS: BILIRUBIN,URINE NEGATIVE (NEG); GLUCOSE,URINE NEGATIVE (NEG); NITRITE,URINE NEGATIVE (NEG); PH,URINE 5.5; PROTEIN,URINE NEGATIVE (NEG-TRACE); UROBILINOGEN,URINE 0.2 mg/dL (0.2 mg/dL)
--- NOTE | 2016-11-04 14:33 | PHYS DOC ---
Past Medical History Past Medical History: Anxiety, CHF, Depression, Renal Failure, Other Additional Past Medical Histor: iv drug use, endocarditis, hep c, ef 10% Past Surgical History: Appendectomy, , Tonsillectomy Additional Past Surgical Histo: trach, peg tub both removed, rt shoulder Alcohol Use: None Drug Use: None Adult General Chief Complaint Chief Complaint: NAUSEA/VOMITING/DIARRHA HPI HPI Is is a pleasant 41-year-old female with a history of respiratory failure after her overdose back in July 2016 secondary to opiate abuse. Patient was intubated at a long-term tracheostomy tube placed bilateral chest tubes placed and a PEG tube placed. She's been doing well discharged home now is disabled but unfortunately returns today with nausea, vomiting and diarrhea. She admits to being on Percocet 5 mg tablets 3 times a day and Xanax and increasing the frequency of 4 times a day. She admits she's been out of this medication for last 4 days. Since that time she's developed diarrhea described as loose and dark about 5 times daily with intense nausea although no vomiting. She denies any sick contacts, travel outside the country, recent antibiotic use, handling of poultry, reptiles or consumption of raw food. Her pain is presently an 8 of 10 typically occurs before bowel movements occur. Patient admits that she is looking for pain control for her abdominal pain. Patient has had prior C- sections prior tubal ligation. She denies any fevers or chills. Review of Systems Review of Systems Constitutional: Denies fever or chills [] Eyes: Denies change in visual acuity, redness, or eye pain [] HENT: Denies nasal congestion or sore throat [] Respiratory: Denies cough or shortness of breath [] Cardiovascular: No additional information not addressed in HPI [] GI: Complains exclusively of his abdominal pain with nausea without vomiting she has had 4-5 episodes of loose diarrhea-like stool that is dark in nature. : Denies dysuria or hematuria [] Musculoskeletal: Denies back pain or joint pain [] Integument: Denies rash or skin lesions [] Neurologic: Denies headache, focal weakness or sensory changes [] Endocrine: Denies polyuria or polydipsia [] Psych: Is patient does complain of anxiety. Current Medications Current Medications Current Medications Medications (Trade) Dose Ordered Sig/[facility] Start Time Stop Time Status Last Admin Dose Admin Lorazepam (Ativan) 2 mg 1X ONCE 11/04/16 14:45 11/04/16 14:46 DC 11/04/16 14:48 2 MG Ondansetron HCl (Zofran) 4 mg 1X ONCE 11/04/16 14:30 11/04/16 14:31 DC 11/04/16 14:48 4 MG Sodium Chloride 1,000 ml @ 125 mls/hr 1X ONCE 11/04/16 14:30 11/04/16 22:29 11/04/16 14:48 125 MLS/HR Allergies Allergies Allergies Coded Allergies Type Severity Reaction Last Updated Verified No Known Drug Allergies 10/01/16 No Physical Exam Physical Exam Constitutional: sHe is thin poorly nourished with obvious anxiety poor dentition and dehydration. She has a well-healed scar over the trachea. HENT: Normocephalic, atraumatic, bilateral external ears normal, she has dry mucous Membranes with poor dentition. Nose normal. [] Eyes: PERRLA, EOMI, conjunctiva normal, no discharge. [] Neck: Normal range of motion, no tenderness, supple, no stridor. [] Cardiovascular:Heart rate regular rhythm, no murmur [] Lungs & Thorax: Bilateral breath sounds clear to auscultation [] Abdomen: Has hyperactive bowel sounds with tenderness in the right lower left lower quadrants. She has no pulsatile masses no guarding rebound or organomegaly. Skin: Warm, dry, no erythema, no rash. [] Extremities: No tenderness, no cyanosis, no clubbing, ROM intact, no edema. [] Neurologic: Alert and oriented X 3, normal motor function, normal sensory function, no focal deficits noted. [] Psychologic: She is very anxious she still displays drug-seeking behavior. Current Patient Data Vital Signs Vital Signs Date Time Temp Pulse Resp B/P (MAP) Pulse Ox O2 Delivery O2 Flow Rate FiO2 11/04/16 14:05 97.7 104 20 108/71 (83) 99 Room Air 97.7 Lab Values Laboratory Tests Test 11/04/16 13:15 11/04/16 14:25 POC Urine HCG, Qualitative Hcg negative (Negative) White Blood Count 8.4 x10^3/uL (4.0-11.0) Red Blood Count 4.91 x10^6/uL (3.50-5.40) Hemoglobin 15.8 g/dL (12.0-15.5) H Hematocrit 47.4 % (36.0-47.0) H Mean Corpuscular Volume 97 fL (79-100) Mean Corpuscular Hemoglobin 32 pg (25-35) Mean Corpuscular Hemoglobin Concent 33 g/dL (31-37) Red Cell Distribution Width 15.4 % (11.5-14.5) H Platelet Count 171 x10^3/uL (140-400) Neutrophils (%) (Auto) 55 % (31-73) Lymphocytes (%) (Auto) 33 % (24-48) Monocytes (%) (Auto) 8 % (0-9) Eosinophils (%) (Auto) 3 % (0-3) Basophils (%) (Auto) 1 % (0-3) Neutrophils # (Auto) 4.6 x10^3uL (1.8-7.7) Lymphocytes # (Auto) 2.8 x10^3/uL (1.0-4.8) Monocytes # (Auto) 0.7 x10^3/uL (0.0-1.1) Eosinophils # (Auto) 0.2 x10^3/uL (0.0-0.7) Basophils # (Auto) 0.1 x10^3/uL (0.0-0.2) Urine Color Yellow Urine Clarity Clear Urine pH 5.5 Urine Specific [place] 1.010 Urine Protein Negative mg/dL (NEG-TRACE) Urine Glucose (UA) Negative mg/dL (NEG) Urine Ketones (Stick) Negative mg/dL (NEG) Urine Blood Negative (NEG) Urine Nitrite Negative (NEG) Urine Bilirubin Negative (NEG) Urine Urobilinogen Dipstick 0.2 mg/dL (0.2 mg/dL) Urine Leukocyte Esterase Trace (NEG) Urine RBC 0 /HPF (0-2) Urine WBC 1-4 /HPF (0-4) Urine Squamous Epithelial Cells Few /LPF Urine Amorphous Sediment Present /HPF Urine Bacteria Many /HPF (0-FEW) Sodium Level 138 mmol/L (136-145) Potassium Level 4.5 mmol/L (3.5-5.1) Chloride Level 103 mmol/L (98-107) Carbon Dioxide Level 24 mmol/L (21-32) Anion Gap 11 (6-14) Blood Urea Nitrogen 30 mg/dL (7-20) H Creatinine 0.7 mg/dL (0.6-1.0) Estimated GFR (Cockcroft-Gault) 91.8 BUN/Creatinine Ratio 43 (6-20) H Glucose Level 94 mg/dL (70-99) Calcium Level 9.3 mg/dL (8.5-10.1) Magnesium Level 1.6 mg/dL (1.8-2.4) L Total Bilirubin 0.6 mg/dL (0.2-1.0) Aspartate Amino Transferase (AST) 33 U/L (15-37) Alanine Aminotransferase (ALT) 54 U/L (14-59) Alkaline Phosphatase 366 U/L (46-116) H Total Protein 9.1 g/dL (6.4-8.2) H Albumin 3.9 g/dL (3.4-5.0) Albumin/Globulin Ratio 0.8 (1.0-1.7) L Laboratory Tests 11/04/16 14:25 Laboratory Tests 11/04/16 14:25 EKG EKG [] Radiology/Procedures Radiology/Procedures [] Course & Med Decision Making Course & Med Decision Making Pertinent Labs and Imaging studies reviewed. (See chart for details) this patient presents with nausea vomiting diarrhea and abdominal pain abdomen is soft on exam. It is apparent from the beginning that patient is actually out of her Xanax and her Percocet which swung the main reason she came to the emergency department today on secondary questioning of her insistence on getting belly pain meds IV but also asking for refills of her medication I'm concerned given her prior overdose of opiate relatives causing respiratory failure and her prolonged ICU stay I am not willing to prescribe her any opiates at this time. Impression vital signs been stable, lab work unremarkable with exception of an increased H&H likely secondary to volume depletion and smoking. sHe also has an elevated BUNs in which likely were presents prerenal azotemia she is in fact not . Patient's urinalysis devastate significant bacteria with only a few epithelial cells and white blood cells. []I'm concerned with this patient's presentation that they may be addicted to narcotic medications. Their behavior could be described as drug seeking in nature and I'm concerned that if I do not explain to them my concerns and we have a discussion about how to treat this in the future we will continue to see them using these medications and possibly dangerous manners. We talked about over utilization that the medications associated with narcotics to include acetaminophen when taking large doses can cause liver injury that is permanent nature. We discussed a treatment plan and need for follow-up with a painter helper to talk about alternatives to narcotic medications. We also talked about possible psychiatric intervention to help him cope with her chronic pain condition. We also discussed possible social work involvement or addiction treatment involvement to help address the possible withdrawal symptoms that may be experiencing which is causing the further use narcotics in this way. I will take the time to provide them addiction clinic information in the follow- up if they choose to accept my help. Impression: Nausea, diarrhea possible medication withdrawal symptoms. UTI, mild dehydration. Disposition: PCP follow-up in the next 12-24 hours if symptoms continue. I would also advise to follow-up with a local health department for referral to a addiction clinic. Dragon Disclaimer Dragon Disclaimer This electronic medical record was generated, in whole or in part, using a voice recognition dictation system. Departure Departure Impression: Primary Impression: Urinary tract infection Additional Impressions: Medication withdrawal Nausea Diarrhea Dehydration Drug-seeking behavior Disposition: 01 HOME, SELF-CARE Condition: STABLE Referrals: WILLI STARR DO (PCP) Patient Instructions: Dehydration, Adult, Diarrhea, Narcotic Withdrawal, Nausea , Adult, Prescription Medications, Signs of Dependency Additional Instructions: I'm concerned with this patient's presentation that they may be addicted to narcotic medications. Their behavior could be described as drug seeking in nature and I'm concerned that if I do not explain to them my concerns and we have a discussion about how to treat this in the future we will continue to see them using these medications and possibly dangerous manners. We talked about over utilization that the medications associated with narcotics to include acetaminophen when taking large doses can cause liver injury that is permanent nature. We discussed a treatment plan and need for follow-up with a painter helper to talk about alternatives to narcotic medications. We also talked about possible psychiatric intervention to help him cope with her chronic pain condition. We also discussed possible social work involvement or addiction treatment involvement to help address the possible withdrawal symptoms that may be experiencing which is causing the further use narcotics in this way. I will take the time to provide them addiction clinic information in the follow- up if they choose to accept my help. Primary care doctor for refill of her medications if necessary. At this time given her risk I do not feel comfortable providing her narcotic medications. Please return for any new or increasing symptoms or feel any questions or concerns. Scripts Ciprofloxacin Hcl (CIPRO) 500 Mg Tablet 1 TAB PO BID, #20 TAB Prov: HERNANDO ESPOSITO MD 11/04/16 Dicyclomine Hcl (BENTYL) 10 Mg Capsule 1 CAP PO TID, #30 CAP 3 Refills Prov: HERNANDO ESPOSITO MD 11/04/16 Ondansetron (ZOFRAN ODT) 4 Mg Tab.rapdis 4 MG PO BID Y for NAUSEA/VOMITING for 5 Days, #10 TAB Prov: HERNANDO ESPOSITO MD 11/04/16 Clonazepam (KLONOPIN) 0.5 Mg Tablet 1 TAB PO TID, #10 TAB Prov: HERNANDO ESPOSITO MD 11/04/16 Loperamide HCl (Imodium A-D) 2 Mg Capsule 2 MG PO QID for 3 Days, #12 CAP Prov: HERNANDO ESPOSITO MD 11/04/16 Problem Qualifiers HERNANDO ESPOSITO MD Nov 04, 2016 14:33
[2016-11-04 14:48] LABS: CALCIUM 9.3 mg/dL (8.5-10.1); CREATININE 0.7 mg/dL (0.6-1.0); GFR 91.8; POTASSIUM 4.5 mmol/L (3.5-5.1)
[2016-11-04 14:55] LABS: ALBUMIN 3.9 g/dL (3.4-5.0); ALBUMIN/GLOBULIN RATIO 0.8 (1.0-1.7); MAGNESIUM 1.6 mg/dL (1.8-2.4); TOTAL BILIRUBIN 0.6 mg/dL (0.2-1.0); TOTAL PROTEIN 9.1 g/dL (6.4-8.2)
[2016-11-04 14:58] VITALS: BP 105/72
[2016-11-04 14:58] LABS: BACTERIA,URINE MANY /HPF (0-FEW); RBC,URINE 0 /HPF (0-2); SQUAMOUS EPITHELIAL CELL,UR FEW /LPF
[2016-11-04] MEDS ORDERED: ONDA4TAB10 PO (15:14)
[2016-11-04] MEDS ORDERED: LOPE2CAP88 PO (15:14)
[2016-11-04] MEDS ORDERED: DICY10CA53 PO (15:14)
[2016-11-04] MEDS ORDERED: CLON0.5T PO (15:14)
[2016-11-04] MEDS ORDERED: CIPR500T94 PO (15:15)
== END 2016-11-04 15:35 | disposition home or self-care (01) ==
LOC: ER 13:30
DX: N39.0 Urinary tract infection, site not specified (principal); F11.23 Opioid dependence with withdrawal; R11.2 Nausea with vomiting, unspecified; R19.7 Diarrhea, unspecified; E86.0 Dehydration; R74.9 Abnormal serum enzyme level, unspecified; F17.200 Nicotine dependence, unspecified, uncomplicated; F41.9 Anxiety disorder, unspecified; I50.9 Heart failure, unspecified; F32.9 Major depressive disorder, single episode, unspecified; N18.9 Chronic kidney disease, unspecified; Z76.5 Malingerer [conscious simulation]; Z90.49 Acquired absence of other specified parts of digestive tract
CPT/HCPCS: 36415; 80053; 81001; 81025; 83735; 85027; 87086; 96361; 96374; 96375; 99284; J2060; J2405; J7030

== ENCOUNTER 2017-02-03 14:58 | Emergency (ER) | payer SELFPAY ==
[~2017-02-03] VITALS: Ht 162.6 cm; Wt 56.7 kg
[~2017-02-03 14:58] MED LIST changes: +CLON0.5T PO; +DICY10CA53 PO; +LOPE2CAP88 PO; +ONDA4TAB10 PO
[2017-02-03 15:44] LABS: BILIRUBIN,URINE NEGATIVE (NEG); GLUCOSE,URINE NEGATIVE (NEG); NITRITE,URINE NEGATIVE (NEG); PH,URINE 6.5; PROTEIN,URINE NEGATIVE (NEG-TRACE); UROBILINOGEN,URINE 0.2 mg/dL (0.2 mg/dL)
[2017-02-03 15:58] LABS: BACTERIA,URINE 0 /HPF (0-FEW); RBC,URINE 0 /HPF (0-2); SQUAMOUS EPITHELIAL CELL,UR MOD /LPF; WBC,URINE 0 /HPF (0-4)
--- NOTE | 2017-02-03 16:01 | PHYS DOC ---
Past Medical History Past Medical History: Anxiety, CHF, Depression, Renal Failure, Other Additional Past Medical Histor: iv drug use, endocarditis, hep c, ef 10% Past Surgical History: Appendectomy, , Tonsillectomy Additional Past Surgical Histo: trach, peg tub both removed, rt shoulder, Chest tubes. Additional Information: Smokes occasionally. Alcohol Use: None Drug Use: None, Other Social History Narrative: Stopped IV drug 6 months ago in July 2016. Adult General Chief Complaint Chief Complaint: FLANK PAIN HPI HPI Patient is a 41 year old female with a history of chf presents to the ED complaining of left flank pain 3 days. Patient was seen back in July 2016 for respiratory failure due to opiate overdose. Patient was placed in the ICU for an extended stay with tracheostomy, bilateral chest and PEG tube placements. Patient has been seen outpatient and states she has been doing well. States her last visit to this hospital was in October. States she follows up outpatient and receives tramadol for her pain. States she takes no opiates at this time. Denies nausea/vomiting, diarrhea, hematuria, dysuria, vaginal discharge/bleeding , chest pain, shortness of breath, fever or headache. Review of Systems Review of Systems Constitutional: Denies fever or chills [] Eyes: Denies change in visual acuity, redness, or eye pain [] HENT: Denies nasal congestion or sore throat [] Respiratory: Denies cough or shortness of breath [] Cardiovascular: No additional information not addressed in HPI [] GI: Complains of left flank pain. Denies nausea, vomiting, bloody stools or diarrhea [] : Denies dysuria or hematuria [] Musculoskeletal: Denies back pain or joint pain [] Integument: Denies rash or skin lesions [] Neurologic: Denies headache, focal weakness or sensory changes [] Endocrine: Denies polyuria or polydipsia [] Current Medications Current Medications Current Medications Medications (Trade) Dose Ordered Sig/Cher Start Time Stop Time Status Last Admin Dose Admin Info (Do NOT chart on this entry -- for MONITORING) 1 each PRN DAILY PRN 02/03/17 17:00 02/03/17 17:14 DC Iohexol (Omnipaque 300 Mg/ml) 75 ml 1X ONCE 02/03/17 17:00 02/03/17 17:01 DC Allergies Allergies Allergies Coded Allergies Type Severity Reaction Last Updated Verified No Known Drug Allergies 10/01/16 No Physical Exam Physical Exam Constitutional: Well developed, well nourished, no acute distress, non-toxic appearance. [] HENT: Normocephalic, atraumatic, bilateral external ears normal, oropharynx moist, no oral exudates, nose normal. [] Eyes: PERRLA, EOMI, conjunctiva normal, no discharge. [] Neck: Normal range of motion, no tenderness, supple, no stridor. [] Cardiovascular:Heart rate regular rhythm, no murmur [] Lungs & Thorax: Bilateral breath sounds clear to auscultation [] Abdomen: Bowel sounds normal, soft, no tenderness, no masses, no pulsatile masses. [] Skin: Warm, dry, no erythema, no rash. [] Back: No tenderness. MILD LEFT CVA TENDERNESS. [] Extremities: No tenderness, no cyanosis, no clubbing, ROM intact, no edema. [] Neurologic: Alert and oriented X 3, normal motor function, normal sensory function, no focal deficits noted. [] Psychologic: Affect normal, judgement normal, mood normal. [] Current Patient Data Vital Signs Vital Signs Date Time Temp Pulse Resp B/P (MAP) Pulse Ox O2 Delivery O2 Flow Rate FiO2 02/03/17 16:20 93 20 112/65 (81) 100 Room Air 02/03/17 15:21 98.2 98.2 Lab Values Laboratory Tests Test 02/03/17 15:15 02/03/17 15:17 02/03/17 15:56 Urine Collection Type Unknown Urine Color Yellow Urine Clarity Clear Urine pH 6.5 Urine Specific [place] <=1.005 Urine Protein Negative mg/dL (NEG-TRACE) Urine Glucose (UA) Negative mg/dL (NEG) Urine Ketones (Stick) Negative mg/dL (NEG) Urine Blood Negative (NEG) Urine Nitrite Negative (NEG) Urine Bilirubin Negative (NEG) Urine Urobilinogen Dipstick 0.2 mg/dL (0.2 mg/dL) Urine Leukocyte Esterase Negative (NEG) Urine RBC 0 /HPF (0-2) Urine WBC 0 /HPF (0-4) Urine Squamous Epithelial Cells Mod /LPF Urine Bacteria 0 /HPF (0-FEW) Urine Opiates Screen Pos (NEG) Urine Methadone Screen Neg (NEG) Urine Barbiturates Neg (NEG) Urine Phencyclidine Screen Neg (NEG) Urine Amphetamine/Methamphetamine Neg (NEG) Urine Benzodiazepines Screen Neg (NEG) Urine Cocaine Screen Neg (NEG) Urine Cannabinoids Screen Neg (NEG) Urine Ethyl Alcohol Neg (NEG) POC Urine HCG, Qualitative Hcg negative (Negative) White Blood Count 7.1 x10^3/uL (4.0-11.0) Red Blood Count 4.55 x10^6/uL (3.50-5.40) Hemoglobin 14.7 g/dL (12.0-15.5) Hematocrit 44.1 % (36.0-47.0) Mean Corpuscular Volume 97 fL (79-100) Mean Corpuscular Hemoglobin 32 pg (25-35) Mean Corpuscular Hemoglobin Concent 33 g/dL (31-37) Red Cell Distribution Width 15.1 % (11.5-14.5) H Platelet Count 150 x10^3/uL (140-400) Sodium Level 139 mmol/L (136-145) Potassium Level 4.2 mmol/L (3.5-5.1) Chloride Level 105 mmol/L (98-107) Carbon Dioxide Level 24 mmol/L (21-32) Anion Gap 10 (6-14) Blood Urea Nitrogen 15 mg/dL (7-20) Creatinine 0.6 mg/dL (0.6-1.0) Estimated GFR (Cockcroft-Gault) 109.6 BUN/Creatinine Ratio 25 (6-20) H Glucose Level 104 mg/dL (70-99) H Calcium Level 9.2 mg/dL (8.5-10.1) Total Bilirubin 0.4 mg/dL (0.2-1.0) Aspartate Amino Transferase (AST) 17 U/L (15-37) Alanine Aminotransferase (ALT) 34 U/L (14-59) Alkaline Phosphatase 259 U/L (46-116) H Total Protein 7.5 g/dL (6.4-8.2) Albumin 3.7 g/dL (3.4-5.0) Albumin/Globulin Ratio 1.0 (1.0-1.7) Lipase 122 U/L (73-393) Laboratory Tests 02/03/17 15:56 Laboratory Tests 02/03/17 15:56 EKG EKG [] Radiology/Procedures Radiology/Procedures [] Course & Med Decision Making Course & Med Decision Making Pertinent Labs and Imaging studies reviewed. (See chart for details) []Discussed labs with patient. Patient requesting narcotic pain medication because her tramadol is not working at home. Patient not given narcotic pain medication. Recommended CT imaging if patients pain is continuing but patient refused stating she did not want a CT scan. Discussed risks of refusing including . Patient verbalizes understanding. Family at bedside. PATIENT SIGNED OUT AMA. Discussed reasons to return to the ED. Patient understands and agrees with plan. Dragon Disclaimer Dragon Disclaimer This electronic medical record was generated, in whole or in part, using a voice recognition dictation system. Departure Departure Impression: Primary Impression: Abdominal pain Additional Impression: Flank pain Disposition: 07 AGAINST MEDICAL ADVICE Condition: STABLE Referrals: WILLI STARR DO (PCP) Patient Instructions: Flank Pain Problem Qualifiers UMER RIVAS Feb 03, 2017 16:01
[2017-02-03 16:04] LABS: HEMATOCRIT 44.1 % (36.0-47.0); HEMOGLOBIN 14.7 g/dL (12.0-15.5); RED BLOOD COUNT 4.55 x10^6/uL (3.50-5.40); RED CELL DISTRIBUTION WIDTH 15.1 % (11.5-14.5); WHITE BLOOD COUNT 7.1 x10^3/uL (4.0-11.0)
[2017-02-03 16:13] LABS: CALCIUM 9.2 mg/dL (8.5-10.1); CREATININE 0.6 mg/dL (0.6-1.0); GFR 109.6; POTASSIUM 4.2 mmol/L (3.5-5.1)
[2017-02-03 16:19] LABS: ALBUMIN 3.7 g/dL (3.4-5.0); TOTAL BILIRUBIN 0.4 mg/dL (0.2-1.0); TOTAL PROTEIN 7.5 g/dL (6.4-8.2)
[2017-02-03 16:20] VITALS: BP 112/65
[2017-02-03 16:40] LABS: BARBITURATES NEG (NEG); BENZODIAZEPINES NEG (NEG); CANNABINOIDS NEG (NEG); COCAINE NEG (NEG); METHADONE NEG (NEG); OPIATES POS (NEG); PHENCYCLIDINE NEG (NEG)
[2017-02-03] MEDS ORDERED: IOHEXOL 300 MG/ML 75 ML VIAL IV ONE (17:00)
[2017-02-03] MEDS ORDERED: CONTRAST GIVEN MC PRN (17:00)
== END 2017-02-03 16:54 | disposition home or self-care (01) ==
LOC: ER 14:58
DX: R10.9 Unspecified abdominal pain (principal); I50.9 Heart failure, unspecified; N19 Unspecified kidney failure; Z90.49 Acquired absence of other specified parts of digestive tract; Z98.890 Other specified postprocedural states; F17.200 Nicotine dependence, unspecified, uncomplicated
CPT/HCPCS: 36415; 80053; 80307; 81001; 81025; 83690; 85027; 99284; G0479